=== PATIENT | male | born 1950 | race Caucasian/White ===

== ENCOUNTER → 2016-06-25 | Day surgery (SDC) | payer MEDICARE ==
[~2016-06-25] MED LIST: ACETAMINOPHEN 1000 MG/100 ML VIAL IV ONE; BUPIVACAINE LIPOSOME PF 1.3% 20 ML VIAL ONE; KETOROLAC TROMETHAMINE 30 MG/ML (IVP) VIAL IV PUSH ONE; LACTATED RINGER'S 1000 ML INJ 1,000 ML ONE; MIDAZOLAM HCL 2 MG/2 ML VIAL ONE; ONDANSETRON HCL 4 MG/2 ML VIAL IV PUSH ONE; PROPOFOL 200 MG/20 ML AMP IV ONE; ceFAZolin 2 GM PREMIX 50 ML ONE
--- NOTE | 2016-06-26 15:22 | MP ---
cc: JESUS WANG M.D. DATE OF SURGERY: 06/25/2016. PREOPERATIVE DIAGNOSIS: Left inguinal hernia. POSTOPERATIVE DIAGNOSIS: Left inguinal hernia. PROCEDURE: Repair of left inguinal hernia with ProGrip mesh. SURGEON: Jesus Wang MD. VISION REHABILITATION THERAPIST: Richard Adrian MS-3. ANESTHESIA: General. OPERATIVE FINDINGS: The patient was found to have a large direct inguinal hernia with no evidence of incarceration. There was no evidence of in direct inguinal hernia. DESCRIPTION OF THE PROCEDURE IN DETAIL: The patient was brought to the operating room and after satisfactory sedation was achieved, the left groin was prepped and draped in the usual sterile fashion. 1% lidocaine with epinephrine was used to infiltrate the skin for local anesthesia. A transverse left inguinal incision was made, carried out sharply through the subcutaneous tissue with the cautery being used for hemostasis. The incision was deepened to the external oblique fascia which was incised in the direction of its fibers down to and through the external ring. The underside of the fascia was cleaned and the spermatic cord isolated with a [place] drain. The direct hernia was seen to encompass much of the medial inguinal floor and it was dissected free from the surrounding structures and reduced within the properitoneal space. The internal oblique fascia was closed with interrupted 0 Vicryl sutures being brought between the internal oblique and the shelving edge of the inguinal ligament. Once the floor and the internal ring had been reconstructed in this fashion, the ProGrip mesh was cut to the appropriate shape and secured anterior to the repair by pressing its posterior Vicryl hooks into the surrounding tissues. After it was seen to be adequately attached, it was secured to the pubis with a single suture of #0 Prolene. A second interrupted #0 Prolene was used to secure the internal ring medially. Hemostasis was checked for and found to be satisfactory. The external oblique fascia was closed with a running 3-0 Vicryl suture. The subcutaneous tissue was closed with interrupted 3-0 Vicryl sutures. A total of 20 mL of Exparel was infiltrated in the surrounding tissues. The skin was then closed with interrupted 4-0 Monocryl subcuticular stitches. Steri-Strips were applied and the patient was then awakened and taken from the operating room, in satisfactory condition, having tolerated procedure without problem. MD TERRY Sue/CAMILLE /12:53 PM /3:07 PM
== END | disposition home or self-care (01) ==
LOC: ESDC 08:41
PROVIDERS: ATTEND Surgery
DX: K40.90 Unilateral inguinal hernia, without obstruction or gangrene, not specified as recurrent (principal)
CPT/HCPCS: 00830; 49505; C1781; C9290; J0131; J0690; J1885; J2250; J2405; J3010; J7120

== ENCOUNTER 2018-02-13 05:53 | Observation (INO) ==
[2018-02-13] MEDS ORDERED: Sod Chloride 0.9% Inj 1,000 ML IV.SIG SCH (06:45)
[2018-02-13] MEDS ORDERED: Vancomycin Inj 1,000 MG in Sodium Chlor 0.9% Inj 250 ML IV.SIG PRN (06:45)
[2018-02-13] MEDS ORDERED: Chlorhexidine Gluconate 2% 1 Pack (2 Cloths) TOPICAL ONE (06:47)
[2018-02-13] MEDS ORDERED: Metoprolol Tartrate 25 MG Tablet PO ONE (06:47)
[2018-02-13] MEDS ORDERED: Sodium Chlor 0.9% Inj 500 ML IV.SIG SCH (07:00)
[2018-02-13] MEDS ORDERED: Thrombin Topical 20,000 UNIT Spray Kit TOPICAL ONE (07:18)
[2018-02-13] MEDS ORDERED: Bupivacaine/Epinephrine PF Inj 0.5% 30 ML Vial ONE (07:18)
[2018-02-13] MEDS ORDERED: Gelatin Size 100 Topical Foam ONE (07:18)
[2018-02-13] MEDS ORDERED: Thrombin Topical Soln 5,000 UNIT Vial TOPICAL ONE (07:20)
[2018-02-13] MEDS ORDERED: Dexmedetomidine Inj 200 MCG/2 ML Vial ONE (07:48)
[2018-02-13] MEDS ORDERED: HYDROmorphone PF Inj 1 MG/ML Ampul ONE (07:48)
[2018-02-13] MEDS ORDERED: Glycopyrrolate Inj 1 MG/5 ML Syringe IV.PUSH ONE (08:44)
[2018-02-13] MEDS ORDERED: Phenylephrine/NS 1000 MCG/10ML Syringe IV.PUSH ONE (08:44)
[2018-02-13] MEDS ORDERED: Normosol-R pH 7.4 Inj 1,000 ML IV.CONT ONE (08:44)
[2018-02-13] MEDS ORDERED: Neostigmine Inj 5 MG/5 ML Syringe IV.PUSH ONE (08:44)
[2018-02-13] MEDS ORDERED: Dexamethasone Inj 20 MG/5 ML Vial ONE (09:17)
[2018-02-13] MEDS ORDERED: Acetaminophen 325 MG Tablet PO PRN (11:06)
[2018-02-13] MEDS ORDERED: Zolpidem Tartrate 5 MG Tablet PO PRN (11:06)
[2018-02-13] MEDS ORDERED: Menthol 5.8 MG Lozenge BUCCAL PRN (11:06)
[2018-02-13] MEDS ORDERED: Aluminum/Magnesium/Simethacone Susp 30 ML UDC PO PRN (11:06)
[2018-02-13] MEDS ORDERED: Morphine Sulfate Inj 2 MG/ML Vial IV.PUSH PRN (11:06)
[2018-02-13] MEDS ORDERED: Bisacodyl 10 MG Supp RECTAL PRN (11:06)
--- NOTE | 2018-02-13 11:06 | P.OP ---
- Preoperative Diagnosis (1) Neck pain, chronic (2) Other cervical disc degeneration at C5-C6 level (3) Protrusion of cervical intervertebral disc Date of procedure: 02/13/18 Procedure: Anterior cervical C5-6 microdiscectomy with interbody fusion; anterior C5-6 cervical plate placement; anterior C5-6 interbody cage placement; microsurgical technique Anesthesia: BALJINDER Surgeon: Vivek Viera MD Impress Associate: Ruma Hill Estimated blood loss (mL): 50 Operation and Findings: Following administration of general endotracheal anesthesia, the patient received a gram of vancomycin and Decadron 10 mg intravenously. Sequential compression devices were placed in supine position on a Oj table and all pressure points adequately padded. The head secured in a donut and anterior cervical region then shaved and prepped with Chloraprep and sterilely draped with Ioban along with the usual sterile draping. A transverse skin incision on the left side of the neck was then made after infiltrating the skin with 0.5% Marcaine with epinephrine solution extending down through the platysma. At the anterior border of the sternocleidomastoid further dissection was undertaken developing a plane between the carotid sheath laterally and the trachea esophagus medially. The prevertebral fascia was exposed and dissected out. The medial attachments of the longus colli muscles were detached and a self- retaining retractor used for exposure. The C5-6 disc space was localized with a marking the disc space and using lateral fluoroscopy. [place] distraction screws 14 mm length were placed one in the C5 and one in the C6 body interbody distraction and exposure. There was significant disc degeneration with disc height collapse and anterior osteophytes noted at the C5-6 level and the osteophytes were resected with a [place] and annulus incised with a 15 blade and further dissection undertaken using microtechnique with microscope magnification. Diskectomy was undertaken with pituitaries and the endplates were also decorticated with curettes and drill bit. And more posteriorly there was disk osteophyte complex compressing the thecal sac along with a significant uncovertebral joint hypertrophy with foraminal stenosis which was decompressed along with removal of the posterior longitudinal ligaments at both levels. The foramen was decompressed bilaterally using a Kerrison's and palpation with a nerve hook, the exiting nerve roots were felt to be free. The area was then copiously irrigated. I then placed a Peek cage packed with local autograft bone at the C5-6 interspace under fluoroscopy guidance. [place] distraction pins were removed and the holes plugged with Gelfoam for hemostasis. In order to facilitate the fusion and provide stabilization, a Precision spine cervical Uniplate was then placed with a 14 mm variable angle screw in the C5 body and 14 mm fixed angle screw in the C6 body. The plate screw locking mechanism was then engaged. AP and lateral fluoroscopy confirmed good placement of the construct and the retractor was then removed. Muscular bleeding points were cauterized with bipolar cautery and Gelfoam was then also used for hemostasis which was removed. The platysma was then approximated using 3-0 Vicryl interrupted stitches and 3-0 Vicryl subcuticular stitch also placed in an interrupted fashion, and final skin closure was with Mastisol and Steri-Strips. Sterile dressing was then applied. The patient was then extubated and taken to the recovery room. There are no intraoperative complications and all sponge and needle counts were correct at the end of procedure. Estimated blood loss was about 50 cc. The patient did undergo intraoperative neurologic monitoring which remained stable throughout the surgery.
--- NOTE | 2018-02-13 11:09 | XR ---
EXAM DATE: 02/13/2018 11:05 AM EST AGE/SEX: 67 years / Male INDICATIONS: Post-op C5-C6 anterior cervical fusion. CLINICAL DATA: This is the patient's initial encounter. Patient reports that signs and symptoms have been present for 1 day and indicates a pain score of Nonresponsive. MEDICAL/SURGICAL HISTORY: Non-responsive. Non-responsive. COMPARISON: [facility], MR CERVICAL SPINE W/O CONTRAST, 10/08/2017. . FINDINGS: 2 lateral images obtained in the operating room during a procedure demonstrates anterior plate and sc rews at C5-C6 with material in the C5-C6 disc space. No unexpected finding is identified. CONCLUSION: Images document hardware at C5-C6 related to ACDF. Electronically signed by: Miguel Feliz MD 02/13/2018 11:08 AM EST
[2018-02-13] MEDS ORDERED: ceFAZolin 1 GM Premix Inj 1 GM/50 ML PIGGYBACK IV.SIG ONE (11:16)
[2018-02-13] MEDS ORDERED: fentaNYL Citrate Inj 100 MCG/2 ML Ampul ONE (11:33)
[2018-02-13] MEDS ORDERED: *morphine SULFATE 4 MG/ML PERIprocedure ONLY ONE ×2 (11:39→12:25)
[2018-02-13] MEDS ORDERED: *Ondansetron Inj 4 MG/2 ML Vial PERIprocedural Use ONLY ONE (12:49)
[2018-02-13] MEDS ORDERED: *Promethazine Inj 25 MG/ML Vial PERIprocedural use ONLY ONE (14:04)
[2018-02-13] MEDS ORDERED: ceFAZolin 1 GM Premix Inj 1 GM/50 ML PIGGYBACK IV.SIG SCH (15:00)
[2018-02-13] MEDS ORDERED: Metoprolol Inj 5 MG/5 ML Vial ONE (17:39)
[2018-02-13] MEDS ORDERED: *Labetalol HCl Inj 100 MG/20 ML Vial PERIprocedural Use ONLY IV.PUSH ONE (18:22)
[2018-02-13] MEDS ORDERED: Metoprolol Inj 5 MG/5 ML Vial IV.PUSH ONE (18:30)
--- NOTE | 2018-02-13 19:06 | ECG ---
Date Performed: 02/13/2018 Time Performed: 17:59:37 PTAGE: 67 years EKG: SINUS TACHYCARDIA BORDERLINE LEFT AXIS DEVIATION NONSPECIFIC T-WAVE ABNORMALITY [facility]NORM[facility] ECG Compared to prior electrocardiogram, rate has increased . PREVIOUS TRACING : 02/13/2018 08.16 DOCTOR: Nelson Esteban Interpretating Date/Time 02/13/2018 19:04:10
--- NOTE | 2018-02-13 19:53 | ECG ---
Date Performed: 02/13/2018 Time Performed: 08:16:33 PTAGE: 67 years EKG: Sinus rhythm NORMAL ECG NO PREVIOUS TRACING DOCTOR: Hattie Mejía Interpretating Date/Time 02/13/2018 19:52:32
[2018-02-13] MEDS: ceFAZolin 1 GM Premix Inj 1 GM/50 ML PIGGYBACK IV.SIG SCH (20:23)
[2018-02-13] MEDS: Senna/Docusate Sodium 8.6/50 MG Tablet PO SCH (22:50)
[2018-02-14] MEDS: ceFAZolin 1 GM Premix Inj 1 GM/50 ML PIGGYBACK IV.SIG SCH (04:31)
[2018-02-14] MEDS ORDERED: Levothyroxine 125 MCG Tablet PO SCH (06:00)
[2018-02-14] MEDS: Senna/Docusate Sodium 8.6/50 MG Tablet PO SCH (08:22)
[2018-02-14 08:23] VITALS: BP 148/80; PULSE 89; RESP 18; TEMP 98; O2SAT 96
--- NOTE | 2018-02-14 10:00 | P.PNNS ---
Subjective Interval history: Pt awake and alert. He has voice hoarseness but improving. He is ambulating well. No radiculopathy in UEs. He is voiding this morning small amounts, after requiring straight cath twice. Physical Exam Vital signs: Vital Signs 02/13/18 10:58 02/13/18 11:00 02/13/18 11:15 Temperature 97.6 F Pulse Rate 99 H 95 H 89 Respiratory Rate 16 16 20 Blood Pressure 140/84 161/86 H 158/83 H Pulse Oximetry 93 L 93 L 97 02/13/18 11:30 02/13/18 11:45 02/13/18 12:00 Temperature Pulse Rate 88 88 92 H Respiratory Rate 20 20 20 Blood Pressure 170/90 H 143/86 H 158/92 H Pulse Oximetry 97 96 02/13/18 13:00 02/13/18 14:00 02/13/18 14:45 Temperature 97.4 F L Pulse Rate 93 H 104 H 108 H Respiratory Rate 22 20 20 Blood Pressure 158/89 H 160/81 H 156/83 H Pulse Oximetry 97 94 L 97 02/13/18 17:00 02/13/18 18:00 02/13/18 19:00 Temperature Pulse Rate 129 H 119 H 101 H Respiratory Rate 22 23 20 Blood Pressure 147/89 H 172/105 H 162/90 H Pulse Oximetry 97 97 98 02/13/18 20:00 02/13/18 21:26 02/14/18 00:00 Temperature 97.8 F 97.7 F Pulse Rate 101 H 101 H 96 H Respiratory Rate 20 20 20 Blood Pressure 172/95 H 156/78 H 154/79 H Pulse Oximetry 92 L 95 96 02/14/18 04:00 02/14/18 08:00 Temperature 97.6 F 98.0 F Pulse Rate 93 H 89 Respiratory Rate 20 18 Blood Pressure 158/76 H 148/80 H Pulse Oximetry 95 96 Intake & Output 02/13/18 02/14/18 02/14/18 18:59 06:59 18:59 Intake Total 2170 / 2170 1100 / 1100 Output Total 650 / 650 Balance 1520 / 1520 1100 / 1100 Weight 84.5 kg Intake: IV 250 / 250 600 / 600 NS + KCl 20 mEq Inj 1,000 ML @ 500 / 500 100 mls/hr IV.CONT .Q10H [facility] Rx #:[id number] Vancomycin Inj 1,000 MG In NS 250 / 250 Inj 250 ML @ 250 mls/hr 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 Absent: conjunctival icterus - Routine Neck Exam Present: trachea midline - Routine Respiratory Exam Present: CTA bilaterally. Absent: respiratory distress, rhonchi, wheezes - Routine Cardiovascular Exam Present: RRR, S1, S2. Absent: murmur - Routine Abdominal Exam Present: soft, normoactive bowel sounds. Absent: distended, firm - Routine Skin Exam Absent: cyanosis, erythema Comments: Incision clean and dry without signs of infection. - Routine Neurological Exam Present: alert, moving all extremities. Absent: sensory deficit, motor deficit , normal speech (voice hoarseness but appropriate.) - Routine Psychiatric Exam Present: normal affect, cooperative - Urinary Catheter Management Straight Cath placed during this visit: yes, but has since been removed by the nurse Reason for continuing: Not indwelling catheter Insertion date: 02/13/18 Insertion time: 14:05 Removal date: 02/13/18 Removal time: 14:12 Assessment and Plan - Assessment (1) Neck pain, chronic Code(s): M54.2 - Cervicalgia; G89.29 - Other chronic pain Status: Chronic (2) Other cervical disc degeneration at C5-C6 level Code(s): M50.322 - Other cervical disc degeneration at C5-C6 level Status: Chronic (3) Protrusion of cervical intervertebral disc Code(s): M50.20 - Other cervical disc displacement, unspecified cervical region Status: Chronic - Plan A: 67 y/o M s/p C5/C6 anterior cervical fusion. P: Discharge home when voiding more. Encouraged pt to drink more water. Follow up in office as scheduled.
== END 2018-02-14 11:39 | disposition home or self-care (01) ==
LOC: N05 05:53 → HSDC 05:53
PROVIDERS: ADMIT Neurological Surgery; ATTEND Neurological Surgery

== ENCOUNTER 2018-03-31 11:38 | Inpatient (IN) ==
[2018-03-31 12:57] LABS: Baso % (Auto) 0.2 % (0.0-2.0); Eos % (Auto) 0.1 % (0.0-4.0); Hematocrit 46.5 % (39.0-51.0); Hemoglobin 15.7 gm/dL (13.0-17.0); Lymph # (Auto) 0.5 th/mm3 (1.0-4.8); Lymph % (Auto) 4.2 % (9.0-44.0); Mean Corpuscular HGB Conc 33.7 % (32.0-36.0); Mean Corpuscular Hemoglobin 31.6 pg (27.0-34.0); Mean Corpuscular Volume 93.9 fL (80.0-100.0); Mono # (Auto) 1.4 th/mm3 (0.0-0.9); Mono % (Auto) 10.8 % (0.0-8.0); Neut # (Auto) 10.8 th/mm3 (1.8-7.7); Neut % (Auto) 84.7 % (16.0-70.0); Platelet Count 331 th/mm3 (150-450); Red Blood Count 4.96 mil/mm3 (4.50-5.90); Red Cell Distribution Width 13.7 % (11.6-17.2); White Blood Count 12.8 th/mm3 (4.0-11.0)
[2018-03-31 13:06] LABS: Activated Partial Thrombo Time 27.6 sec (23.4-31.7); Prothrombin Time 10.2 sec (9.8-11.6)
--- NOTE | 2018-03-31 13:06 | ED ---
HPI General Chief complaint: Neuro Symptoms/Deficit Stated complaint: Poss Seizure/Stroke Complaint Time Seen by Provider: 03/31/18 12:15 Source: patient and family Mode of arrival: ambulatory Limitations: no limitations History of Present Illness HPI narrative: Patient is a 67-year-old male who presents to the emergency room with his and his daughter for evaluation. Patient reports that on February 13, he had a microdiscectomy at C5-C6 by Dr. Viera. Patient reports that he was discharged in the next day. Patient reports that a few days after surgery he has not been feeling well. Patient reports that he has been feeling short of breath at rest as well as on exertion. Patient reports that he has been disoriented. Reports that he has had overall generalized weakness. Patient has been seen by his coil shaper, Dr. Escobedo, reports that he has had CTs of his head, chest/ abdomen/ pelvis - reports that no one can tell them why patient is decompensating. They were supposed to follow-up with a neurologist, reports that the earliest appointment he can get was on Tuesday with Dr. Encarnacion. Reports that since his symptoms have progressively gotten worse and his disorientation has progressed, his pcp Dr. Longoria told him to come to the ER for evaluation. of note: Patient did have carotid ultrasounds which were negative. Related Data Home Medications Medication Instructions Recorded Confirmed aspirin 81 mg PO DAILY 02/08/18 03/31/18 levothyroxine 125 mcg PO DAILY 02/08/18 03/31/18 pantoprazole [Protonix] 40 mg PO DAILY 02/08/18 03/31/18 pravastatin 40 mg PO HS 02/08/18 03/31/18 amlodipine [Norvasc] 10 mg PO DAILY 03/31/18 03/31/18 ranitidine HCl [Zantac] 150 mg PO DAILY 03/31/18 03/31/18 Allergies Allergy/AdvReac Type Severity Reaction Status Date / Time Sulfa (Sulfonamide Allergy Severe Nausea Verified 02/15/18 05:02 Antibiotics) Review of Systems ROS: all other systems reviewed are negative [facility] Medical History Medical History GERD (gastroesophageal reflux disease) (Acute) High cholesterol (Acute) Raspy voice (Acute) Thyroid disease (Acute) Surgical History Surgical History H/O inguinal hernia repair (Acute) H/O microdiscectomy (Acute) Status post bilateral LASIK surgery (Acute) Social History Social History Substance History: No History of Abuse Second Hand Smoke Exposure: No Smoking Status: Never smoker Tobacco Type: Cigarettes How Often Do You Have a Drink Containing Alcohol: Monthly or less Recent Travel in [facility] within the Last 8 Weeks: No Recent Out of Country Travel within the Last 8 Weeks: No Immunization History Tetanus Immunization: <5 Years Exam Narrative Exam Narrative: GENERAL: Mild distress SKIN: Focused skin assessment warm/dry. HEAD: Atraumatic. Normocephalic. EYES: Pupils equal and round. No scleral icterus. No injection or drainage. ENT: No nasal bleeding or discharge. Mucous membranes pink and moist. NECK: Trachea midline. No JVD. CARDIOVASCULAR: Regular rate and rhythm. No murmur appreciated. RESPIRATORY: No accessory muscle use. Clear to auscultation. Breath sounds equal bilaterally. GASTROINTESTINAL: Abdomen soft, non-tender, nondistended. Hepatic and splenic margins not palpable. MUSCULOSKELETAL: No obvious deformities. No clubbing. No cyanosis. No edema. NEUROLOGICAL: Awake and alert. No obvious cranial nerve deficits. Motor grossly within normal limits. Normal speech. PSYCHIATRIC: Appropriate mood and affect; insight and judgment normal. Procedures Intubation Time Out Performed: Yes Sedative: etomidate Mg Given: 20 Paralytic: succinylcholine Mg Given: 100 Laryngoscope: Cinda (4.0) ET Tube Size: 8 ET Tube Uncuffed: Yes Tube Secured Depth (cm): 26 Tube Secured Location: teeth Tube Placement Confirmation: visualized tube passing through cords, equal breath sounds bilaterally, no breath sounds over epigastrium and confirmation by capnometry Patient Tolerated Procedure: well Intubation Complications: none Course Initial Documented Vital Signs Temperature 97.4 F L 03/31/18 11:50 Pulse Rate 107 H 03/31/18 11:50 Respiratory Rate 16 03/31/18 11:50 Blood Pressure 148/82 H 03/31/18 11:50 Pulse Oximetry 90 L 03/31/18 11:50 Last Documented Vital Signs Temperature 97.6 F 03/31/18 14:58 Pulse Rate 106 H 03/31/18 14:58 Respiratory Rate 32 H 03/31/18 14:58 Blood Pressure 173/84 H 03/31/18 14:58 Pulse Oximetry 95 03/31/18 14:58 Critical Care Time Critical Care Time: Yes Total Critical Care Time: 60 Attestation: Aggregate critical care time was 60 minutes. Time to perform other separately billable procedures was not included in the critical care time. My time did not include minutes spent treating any other patients simultaneously or on activities that did not directly contribute to the patient's treatment. The services I provided to this patient were to treat and/or prevent clinically significant deterioration that could result in: , decompensation, deterioration I provided critical care services requiring my management, as noted below: Chart data review, documentation time, medication orders and management, vital sign assessments/reviewing monitor data, ordering and reviewing lab tests, ordering and interpreting/reviewing x-rays and diagnostic studies, care of the patient and discussion of the patient with the admitting physicians. Medical Decision Making MDM Narrative Medical decision making narrative: During the course of the patients emergency department visit, the patients history, examination, and differential diagnosis were reviewed with the patient. The patient was placed on a surveillance system monitor with oximetry and frequent blood pressure monitoring. The patient had an IV access obtained and blood work sent for analysis. Patient last had a CTA to R/O PE on 02/17 - it was negative. Patient is currently refusing a CT of his head at this time as he has had multiple which were all benign. Patient and family are requesting an MRI of the brain as well as an EEG. The patients laboratory studies were reviewed and remarkable for WBC 12.8, hemoglobin 15.7, hematocrit 46.5, platelets 331 Sodium 129, potassium 3.9, BUN 18, creatinine 0.76, glucose 119 X-ray of the chest shows hypoinflation with probable atelectatic changes about the left hemidiaphragm. CTA was ordered to rule out PE again as he has progressive dyspnea on exertion. Patient was admitted to the hospital this time for further workup of his progressive failure to thrive, progressive weakness and dyspnea. Case reviewed with Dr. Bruce who accepts patient to service. Patient began to become apneic, he was guppy breathing, he became unresponsive. Discussed with family need for intubation, family consents Case reviewed with Dr. Martin who accepts pt to service Medical Screen Exam Complete: Yes Emergency Medical Condition: Yes Medical Records Medical records reviewed: Yes I reviewed the patient's medical records. Lab Data Lab results reviewed: Yes I reviewed the patient's lab results. Result diagrams: 03/31/18 12:30 03/31/18 12:30 Lab Results 03/31/18 03/31/18 03/31/18 Range/Units 12:30 12:30 12:30 WBC 12.8 H (4.0-11.0) th/mm3 RBC 4.96 (4.50-5.90) mil/mm3 Hgb 15.7 (13.0-17.0) gm/dL Hct 46.5 (39.0-51.0) % MCV 93.9 (80.0-100.0) fL MCH 31.6 (27.0-34.0) pg MCHC 33.7 (32.0-36.0) % RDW 13.7 (11.6-17.2) % Plt Count 331 (150-450) th/mm3 MPV 7.0 (7.0-11.0) fL Neut % (Auto) 84.7 H (16.0-70.0) % Lymph % (Auto) 4.2 L (9.0-44.0) % [place] % (Auto) 10.8 H (0.0-8.0) % Eos % (Auto) 0.1 (0.0-4.0) % Baso % (Auto) 0.2 (0.0-2.0) % Neut # (Auto) 10.8 H (1.8-7.7) th/mm3 Lymph # (Auto) 0.5 L (1.0-4.8) th/mm3 [place] # (Auto) 1.4 H (0.0-0.9) th/mm3 Eos # (Auto) 0.0 (0.0-0.4) th/mm3 Baso # (Auto) 0.0 (0.0-0.2) th/mm3 WBC Differential . Differential Comment Auto diff final PT 10.2 (9.8-11.6) sec INR 1.0 Ratio APTT 27.6 (23.4-31.7) sec Puncture Site Patient Temperature O2 Saturation (90-100) % ABG pH (7.380-7.420) ABG pCO2 (38-42) mmHg ABG pO2 (61-120) mmHg ABG HCO3 (22-26) mmol/L ABG O2 Content (12.0-20.0) Vol % ABG Base Excess (-2-2) mmol/L ABG Methemoglobin (0-2) % David Test Hemoglobin (12.0-16.0) G/DL Carboxyhemoglobin (0-4) % O2 Delivery Device Inspired O2 % Critical Value Sodium 129 L (136-145) meq/L Potassium 3.9 (3.5-5.1) meq/L Chloride 89 L (98-107) meq/L Carbon Dioxide 37.2 H (21.0-32.0) meq/L Anion Gap 3 L (5-15) meq/L BUN 18 (7-18) mg/dL Creatinine 0.76 (0.60-1.30) mg/dL Estimated GFR Greater than 89 (>89) mL/min POC Glucose (68-110) mg/dl Random Glucose 138 H (74-106) mg/dL Calcium 9.0 (8.5-10.1) mg/dL Total Bilirubin 0.6 (0.2-1.0) mg/dL AST 33 (15-37) U/L ALT 72 (12-78) U/L Alkaline Phosphatase 72 (45-117) U/L Total Creatine Kinase Troponin I Total Protein 7.7 (6.4-8.2) g/dL Albumin 3.9 (3.4-5.0) g/dL Vitamin B12 Folate TSH Free T4 Urine Color (Yellw/Straw) Urine Clarity (Clear) Urine pH (5.0-8.5) Ur Specific [place] (1.002-1.035) Urine Protein (Neg-Trace) mg/dL Urine Glucose (UA) (Negative) mg/dL Urine Ketones (Negative) mg/dL Urine Occult Blood (Negative) Urine Nitrate (Negative) Urine Bilirubin (Negative) Urine Urobilinogen (Less than 2) mg/dL Ur Leukocyte Esterase (Negative) Urine RBC (0-3) /hpf Urine WBC (0-5) /hpf Hyaline Casts (0-3) /lpf Micro UA Comment Ur Microscopic Review Urine Culture Comments 03/31/18 03/31/18 03/31/18 Range/Units 12:30 12:30 12:54 WBC (4.0-11.0) th/mm3 RBC (4.50-5.90) mil/mm3 Hgb (13.0-17.0) gm/dL Hct (39.0-51.0) % MCV (80.0-100.0) fL MCH (27.0-34.0) pg MCHC (32.0-36.0) % RDW (11.6-17.2) % Plt Count (150-450) th/mm3 MPV (7.0-11.0) fL Neut % (Auto) (16.0-70.0) % Lymph % (Auto) (9.0-44.0) % [place] % (Auto) (0.0-8.0) % Eos % (Auto) (0.0-4.0) % Baso % (Auto) (0.0-2.0) % Neut # (Auto) (1.8-7.7) th/mm3 Lymph # (Auto) (1.0-4.8) th/mm3 [place] # (Auto) (0.0-0.9) th/mm3 Eos # (Auto) (0.0-0.4) th/mm3 Baso # (Auto) (0.0-0.2) th/mm3 WBC Differential Differential Comment PT (9.8-11.6) sec INR Ratio APTT (23.4-31.7) sec Puncture Site Patient Temperature O2 Saturation (90-100) % ABG pH (7.380-7.420) ABG pCO2 (38-42) mmHg ABG pO2 (61-120) mmHg ABG HCO3 (22-26) mmol/L ABG O2 Content (12.0-20.0) Vol % ABG Base Excess (-2-2) mmol/L ABG Methemoglobin (0-2) % David Test Hemoglobin (12.0-16.0) G/DL Carboxyhemoglobin (0-4) % O2 Delivery Device Inspired O2 % Critical Value Sodium (136-145) meq/L Potassium (3.5-5.1) meq/L Chloride (98-107) meq/L Carbon Dioxide (21.0-32.0) meq/L Anion Gap (5-15) meq/L BUN (7-18) mg/dL Creatinine (0.60-1.30) mg/dL Estimated GFR (>89) mL/min POC Glucose 119 H (68-110) mg/dl Random Glucose (74-106) mg/dL Calcium (8.5-10.1) mg/dL Total Bilirubin (0.2-1.0) mg/dL AST (15-37) U/L ALT (12-78) U/L Alkaline Phosphatase (45-117) U/L Total Creatine Kinase Cancelled Troponin I Cancelled Total Protein (6.4-8.2) g/dL Albumin (3.4-5.0) g/dL Vitamin B12 Cancelled Folate Cancelled TSH Cancelled Free T4 Cancelled Urine Color (Yellw/Straw) Urine Clarity (Clear) Urine pH (5.0-8.5) Ur Specific [place] (1.002-1.035) Urine Protein (Neg-Trace) mg/dL Urine Glucose (UA) (Negative) mg/dL Urine Ketones (Negative) mg/dL Urine Occult Blood (Negative) Urine Nitrate (Negative) Urine Bilirubin (Negative) Urine Urobilinogen (Less than 2) mg/dL Ur Leukocyte Esterase (Negative) Urine RBC (0-3) /hpf Urine WBC (0-5) /hpf Hyaline Casts (0-3) /lpf Micro UA Comment Ur Microscopic Review Urine Culture Comments 03/31/18 03/31/18 Range/Units 14:55 16:03 WBC (4.0-11.0) th/mm3 RBC (4.50-5.90) mil/mm3 Hgb (13.0-17.0) gm/dL Hct (39.0-51.0) % MCV (80.0-100.0) fL MCH (27.0-34.0) pg MCHC (32.0-36.0) % RDW (11.6-17.2) % Plt Count (150-450) th/mm3 MPV (7.0-11.0) fL Neut % (Auto) (16.0-70.0) % Lymph % (Auto) (9.0-44.0) % [place] % (Auto) (0.0-8.0) % Eos % (Auto) (0.0-4.0) % Baso % (Auto) (0.0-2.0) % Neut # (Auto) (1.8-7.7) th/mm3 Lymph # (Auto) (1.0-4.8) th/mm3 [place] # (Auto) (0.0-0.9) th/mm3 Eos # (Auto) (0.0-0.4) th/mm3 Baso # (Auto) (0.0-0.2) th/mm3 WBC Differential Differential Comment PT (9.8-11.6) sec INR Ratio APTT (23.4-31.7) sec Puncture Site Right radial Patient Temperature 98.6 O2 Saturation 98 (90-100) % ABG pH 7.08 L* (7.380-7.420) ABG pCO2 148 H* (38-42) mmHg ABG pO2 391 H (61-120) mmHg ABG HCO3 41 H (22-26) mmol/L ABG O2 Content 22.4 H (12.0-20.0) Vol % ABG Base Excess 11.2 H (-2-2) mmol/L ABG Methemoglobin 0.9 (0-2) % David Test Y Hemoglobin 15.6 (12.0-16.0) G/DL Carboxyhemoglobin 0.5 (0-4) % O2 Delivery Device Nrb Inspired O2 100 % Critical Value Yes Sodium (136-145) meq/L Potassium (3.5-5.1) meq/L Chloride (98-107) meq/L Carbon Dioxide (21.0-32.0) meq/L Anion Gap (5-15) meq/L BUN (7-18) mg/dL Creatinine (0.60-1.30) mg/dL Estimated GFR (>89) mL/min POC Glucose (68-110) mg/dl Random Glucose (74-106) mg/dL Calcium (8.5-10.1) mg/dL Total Bilirubin (0.2-1.0) mg/dL AST (15-37) U/L ALT (12-78) U/L Alkaline Phosphatase (45-117) U/L Total Creatine Kinase Troponin I Total Protein (6.4-8.2) g/dL Albumin (3.4-5.0) g/dL Vitamin B12 Folate TSH Free T4 Urine Color Yellow (Yellw/Straw) Urine Clarity Clear (Clear) Urine pH 6.0 (5.0-8.5) Ur Specific [place] 1.013 (1.002-1.035) Urine Protein 30 H (Neg-Trace) mg/dL Urine Glucose (UA) Negative (Negative) mg/dL Urine Ketones Negative (Negative) mg/dL Urine Occult Blood Moderate H (Negative) Urine Nitrate Negative (Negative) Urine Bilirubin Negative (Negative) Urine Urobilinogen Less than 2 (Less than 2) mg/dL Ur Leukocyte Esterase Negative (Negative) Urine RBC 27 H (0-3) /hpf Urine WBC 1 (0-5) /hpf Hyaline Casts 8 (0-3) /lpf Micro UA Comment Culture not ind Ur Microscopic Review Not Reportable Urine Culture Comments Culture not ind Imaging Data Attestation: I personally reviewed and interpreted this imaging study as follows : Radiologist's impression: Chest X-Ray 03/31/18 12:15 CONCLUSION: 1. Hypoinflation with probable atelectatic changes above the left hemidiaphragm. 2. Otherwise, no acute cardiopulmonary process. Head CT 03/31/18 12:16 CONCLUSION: 1. Negative CT Head non contrast. . Chest CTA 03/31/18 14:39 CONCLUSION: 1. Bibasilar atelectatic changes, left greater than right. No confluent infiltrate. 2. No pulmonary embolus. 3. Atherosclerotic calcification of the coronary arteries. ECG Data EKG Prior to Arrival: No Attestation: I personally reviewed and interpreted this ECG as follows: Interpretation: ekg at 1241: NSR at 96bpm, qt/qtc: 314/368, no acute st or t wave changes Discharge Plan Discharge Disposition Patient Disposition: ED Admit(ED Internal Use Only) Discharge Condition Condition: Stable Discharge Order Discharge Orders: ED Use Only Admit Order (Routine); Ordered 03/31/18 Ordered By: Ale Shen Discharge Details Diagnosis: Adult failure to thrive, Shortness of breath, Weakness generalized, Acute hyponatremia, Ventilator dependent Physicians Team ED Provider: Ale Shen Primary Care Provider: Rex Longoria Attending Provider: Chon Patel Other Providers: Lev Torres Interventions Interventions: Vital Signs Last Done: 03/31/18 14:04 Status ED Status: Admitted Patient
[2018-03-31 13:14] LABS: Alanine Aminotransferase 72 U/L (12-78); Albumin 3.9 g/dL (3.4-5.0); Anion Gap 3 meq/L (5-15); Aspartate Aminotransferase 33 U/L (15-37); Blood Urea Nitrogen 18 mg/dL (7-18); Carbon Dioxide 37.2 meq/L (21.0-32.0); Chloride 89 meq/L (98-107); Glomerular Filtration Rate Greater Than 89 mL/min (>89); Glucose,Random 138 mg/dL (74-106); Potassium 3.9 meq/L (3.5-5.1); Sodium 129 meq/L (136-145)
--- NOTE | 2018-03-31 13:14 | XR ---
EXAM DATE: 03/31/2018 12:53 PM EST AGE/SEX: 67 years / Male INDICATIONS: Chest pain. Short of breath since spinal surgery on 02/13/19. Numbness and tingling in s houlders today. CLINICAL DATA: This is the patient's initial encounter. Patient reports that signs and symptoms have been present for 1 month and indicates a pain score of Nonresponsive. MEDICAL/SURGICAL HISTORY: Non-responsive. . cervical spine fusion [place] [facility] [place]. . FINDINGS: A single AP view of the chest demonstrates the lungs to be symmetrically hypoinflated with probable a telectatic changes above the left hemidiaphragm. Lungs are otherwise clear. Accounting for the low la nena ng findings, heart size is normal. Osseous structures are intact with some degenerative osteoarthriti c changes in the AC joints bilaterally. CONCLUSION: 1. Hypoinflation with probable atelectatic changes above the left hemidiaphragm. 2. Otherwise, no acute cardiopulmonary process. Electronically signed by: Serafin Maurer MD Board Certified Radiologist 03/31/2018 1:12 PM EST
[2018-03-31 13:15] LABS: Alkaline Phosphatase 72 U/L (45-117); Total Protein 7.7 g/dL (6.4-8.2)
--- NOTE | 2018-03-31 15:21 | P.HPIM ---
History of Present Illness Primary Care Physician: Rex Longoria MD History of Present Illness: DRAFT NOTE Inpatient Certification Inpatient Certification: I certify that the inpatient services were ordered in accordance with Medicare regulations governing the order. This includes certification that hospital inpatient services are reasonable and necessary and in the case of services not specified as inpatient-only under 42 CFR 419.22(n), that they are appropriately provided as inpatient services in accordance to with the 2-midnight benchmark under 43 CFR 412.3(e) Estimated Total Length of Stay (Days): 3 Plans for Post Hospital Care: Not yet determined Medications and Allergies Allergies Allergy/AdvReac Type Severity Reaction Status Date / Time Sulfa (Sulfonamide Allergy Severe Nausea Verified 02/15/18 05:02 Antibiotics) Home Medications Medication Instructions Recorded Confirmed Type aspirin 81 mg PO DAILY 02/08/18 02/15/18 History coQ10 (ubiquinol) 100 mg PO DAILY 02/08/18 02/15/18 History levothyroxine 125 mcg PO DAILY 02/08/18 02/15/18 History sd-nu-JK-vit B-nkoso-syl-coQ10 1 tab PO DAILY 02/08/18 02/15/18 History [Daily Multivitamin] pantoprazole [Protonix] 40 mg PO DAILY 02/08/18 02/15/18 History pravastatin 40 mg PO HS 02/08/18 02/15/18 History Active Medications: Active Medications Acetaminophen (Tylenol) 650 mg PO Q4H PRN PRN Reason: Temp > 100.4 Al Hydroxide/Mg Hydroxide (Milk Of Kinjal Liq) 30 ml PO Q12H PRN PRN Reason: Mild Constipation Enoxaparin Sodium (Lovenox Inj) 30 mg SQ Q24H GIGI Potassium Chloride/Sodium Chloride (Potassium Chlor 20 Meq/Nacl 0.45% Inj) 1, 000 mls @ 84 mls/hr IV.CONT .[id number] GIGI Ondansetron HCl (Zofran Inj) 4 mg IV.PUSH Q6H PRN PRN Reason: NAUSEA OR VOMITING Senna/Docusate Sodium (Celine-Colace) 1 tab PO BID GIGI Sodium Chloride (Ns Flush) 2 ml IV.FLUSH PRN PRN PRN Reason: FLUSH AFTER USING IV ACCESS Sodium Chloride (Ns Flush) 2 ml IV.FLUSH PRN PRN PRN Reason: FLUSH AFTER USING IV ACCESS Sodium Chloride (Ns Flush) 2 ml IV.FLUSH BID GIGI Physical Exam Vital signs: Last Vital Signs Temp 97.6 F 03/31/18 14:58 Pulse 106 H 03/31/18 14:58 Resp 32 H 03/31/18 14:58 BP 173/84 H 03/31/18 14:58 Pulse Ox 95 03/31/18 14:58 Results Labs CBC & Chem 7: 03/31/18 12:30 03/31/18 12:30 Caprini VTE Risk Assessment Caprini Risk Assessment Model: Point Value = 1 Point Value = 2 Point Value = 3 Point Value = 5 Age 41-60 Minor surgery BMI > 25 kg/m2 Swollen legs Varicose veins or History of unexplained or recurrent spontaneous Oral contraceptives or hormone replacement Sepsis (< 1 month) Serious lung disease, including pneumonia (< 1 month) Abnormal pulmonary function Acute myocardial infarction Congestive heart failure (< 1 month) History of inflammatory bowel disease Medical patient at bed rest Age 61-74 Arthroscopic surgery Major open surgery (> 45 min) Laparoscopic surgery (> 45 min) Malignancy Confined to bed (> 72 hours) Immobilizing plaster cast Central venous access Age >= 75 History of VTE Family history of VTE Factor V Leiden Prothrombin [id number] Lupus anticoagulant Anticardiolipin antibodies Elevated serum homocysteine Heparin-induced thrombocytopenia Other congenital or acquired thrombophilia Stroke (< 1 month) Elective arthroplasty Hip, pelvis, or leg fracture Acute spinal cord injury (< 1 month) Prophylaxis Regimen: Total Risk Factor Score Risk Level Prophylaxis Regimen 0-1 Low Early ambulation 2 Moderate Order ONE of the following: *Sequential Compression Device (SCD) *Heparin 5000 units SQ BID 3-4 Higher Order ONE of the following medications: *Heparin 5000 units SQ TID *Enoxaparin/Lovenox 40 mg SQ daily (WT < 150 kg, CrCl > 30 mL/min) *Enoxaparin/Lovenox 30 mg SQ daily (WT < 150 kg, CrCl > 10-29 mL/min) *Enoxaparin/Lovenox 30 mg SQ BID (WT < 150 kg, CrCl > 30 mL/min) AND/OR *Sequential Compression Device (SCD) 5 or more Highest Order ONE of the following medications: *Heparin 5000 units SQ TID (Preferred with Epidurals) *Enoxaparin/Lovenox 40 mg SQ daily (WT < 150 kg, CrCl > 30 mL/min) *Enoxaparin/Lovenox 30 mg SQ daily (WT < 150 kg, CrCl > 10-29 mL/min) *Enoxaparin/Lovenox 30 mg SQ BID (WT < 150 kg, CrCl > 30 mL/min) AND *Sequential Compression Device (SCD)
--- NOTE | 2018-03-31 15:36 | CT ---
EXAM DATE: 03/31/2018 3:33 PM EST AGE/SEX: 67 years / Male INDICATIONS: Weakness. CLINICAL DATA: This is the patient's initial encounter. Patient reports that signs and symptoms have been present for 1 day and indicates a pain score of Nonresponsive. MEDICAL/SURGICAL HISTORY: Gastroesophageal reflux disease. Thyroid disease. Left inguinal hernia. . Bilateral lasik surgery. RADIATION DOSE: 66.34 CTDI (mGy) ; Patient motion COMPARISON: [facility], CT BRAIN W AND W/O CONTRAST, 03/29/2018. . TECHNIQUE: CT of the head without contrast. Using automated exposure control and adjustment of the mA and/or kV according to patient size, radiation dose was kept as low as reasonably achievable to ob tain optimal diagnostic quality images. DICOM format image data is available electronically for revi ew and comparison. FINDINGS: Cerebrum: The ventricles are normal for age. No evidence of midline shift, mass lesion, hemorrhage or acute infarction. No extraaxial fluid collections are seen. Posterior Fossa: The cerebellum and brainstem are intact. The 4th ventricle is midline. The cerebe llopontine angle is unremarkable. Extracranial: The visualized portion of the orbits is intact. Skull: The calvaria is intact. No evidence of skull fracture. CONCLUSION: 1. Negative CT Head non contrast. . Electronically signed by: Gucci Benson MD Board Certified Radiologist 03/31/2018 3:34 PM EST
[2018-03-31 15:43] LABS: Bilirubin,Urine Negative (Negative); Clarity,Urine Clear (Clear); Color,Urine Yellow (Yellw/Straw); Glucose,Urine (UA) Negative (Negative); Hyaline Casts,Urine 8 /lpf (0-3); Leukocyte Esterase,Urine Negative (Negative); Nitrite,Urine Negative (Negative); Specific Gravity,Urine 1.013 (1.002-1.035)
[2018-03-31] MEDS ORDERED: Etomidate Inj 40 MG/20 ML Vial IV.PUSH ONE ×2 (15:44→16:41)
--- NOTE | 2018-03-31 15:45 | CT ---
EXAM DATE: 03/31/2018 3:39 PM EST AGE/SEX: 67 years / Male INDICATIONS: Short of breath CLINICAL DATA: This is the patient's initial encounter. Patient reports that signs and symptoms have been present for 1 day and indicates a pain score of Nonresponsive. MEDICAL/SURGICAL HISTORY: Gastroesophageal reflux disease. Thyroid Disease, Left inguinal hernia . LASIK eye surgery RADIATION DOSE: 10.98 CTDI (mGy) COMPARISON: [facility], CTA PULMONARY ANGIOGRAM, 02/27/2018. . TECHNIQUE: Volumetric scanning was performed using a multi-row detector CT scanner during bolus infu jon of 74 ml Omnipaque 350 (iohexol) nonionic water-soluble contrast as a single exam dose. The [place] a was post processed with a variety of visualization algorithms including full volume maximum intensi ty projection and sliding thin slab reformation. Using automated exposure control and adjustment of the mA and/or kV according to patient size, radiation dose was kept as low as reasonably achievable t o obtain optimal diagnostic quality images. DICOM format image data is available electronically for review and comparison. FINDINGS: Pulmonary Arteries: No filling defects are seen in the pulmonary arteries out to the subsegmental ve ssels. The left and right pulmonary arteries are normal in diameter. Lung: Subsegmental linear atelectasis identified in the perifissural distribution of the right lower lobe. Atelectatic changes are also seen above the left hemidiaphragm. Lungs are otherwise clear Effusion: None. Mediastinum: No evidence of mediastinal or hilar adenopathy. Atherosclerotic calcification of the co ronary arteries. Other: The axilla is unremarkable. CONCLUSION: 1. Bibasilar atelectatic changes, left greater than right. No confluent infiltrate. 2. No pulmonary embolus. 3. Atherosclerotic calcification of the coronary arteries. Electronically signed by: Serafin Maurer MD Board Certified Radiologist 03/31/2018 3:44 PM EST
[2018-03-31] MEDS ORDERED: Propofol 1000 mg/100 ml Inj 1,000 MG/100 ML BOTTLE ONE (16:04)
[2018-03-31 16:09] LABS: ABG Base Excess 11.2 mmol/L (-2-2); ABG PO2 391 mmHg (61-120)
[2018-03-31 16:10] LABS: ABG PCO2 148 mmHg (38-42)
[2018-03-31] MEDS: Sod Chloride 0.9% Inj 1,000 ML IV.SIG SCH ×4 (16:15→23:00)
[2018-03-31 16:29] LABS: Creatine Kinase 101 U/L (39-308); Free T4 (Free Thyroxine) 1.12 ng/dL (0.76-1.46); Thyroid Stimulating Hormone 0.754 uIU/mL (0.358-3.740); Vitamin B12 578 pg/mL (193-986)
--- NOTE | 2018-03-31 16:41 | XR ---
EXAM DATE: 03/31/2018 4:26 PM EST AGE/SEX: 67 years / Male INDICATIONS: Post intubation. CLINICAL DATA: This is the patient's initial encounter. Patient reports that signs and symptoms have been present for 1 day and indicates a pain score of Nonresponsive. MEDICAL/SURGICAL HISTORY: Gastroesophageal reflux disease. thyroid disease, left inguinal herni a . none known COMPARISON: C, CHEST 1V SINGLE AP, 03/31/2018. . FINDINGS: No change from prior. Lungs remain hypoinflated with persistent atelectatic changes above the left he midiaphragm. No acute infiltrate. Endotracheal tube is identified with the tip at the clavicular head s, well above the duane. CONCLUSION: 1. Hypoinflation with persistent left basilar atelectasis. 2. Endotracheal tube tip at the clavicular heads, above the duane. Electronically signed by: Serfain Maurer MD Board Certified Radiologist 03/31/2018 4:39 PM EST
[2018-03-31] MEDS ORDERED: Succinylcholine Inj 200 MG/10 ML Vial ONE (16:44)
[2018-03-31 16:45] LABS: Creatine Kinase MB 9.7 ng/mL (0.5-3.6)
[2018-03-31] MEDS ORDERED: Succinylcholine Inj 200 MG/10 ML Vial IV.PUSH ONE (17:26)
[2018-03-31] MEDS ORDERED: Gadobutrol PF 10 MMOL/10 ML Vial (for RAD) IV.SIG ONE (17:26)
[2018-03-31] MEDS ORDERED: Etomidate Inj 20 MG/10 ML Ampul IV.PUSH ONE (17:26)
--- NOTE | 2018-03-31 18:14 | MR ---
EXAM DATE: 03/31/2018 6:10 PM EST AGE/SEX: 67 years / Male INDICATIONS: Altered mental status. CLINICAL DATA: This is the patient's initial encounter. Patient reports that signs and symptoms have been present for 1 day and indicates a pain score of 0/10. MEDICAL/SURGICAL HISTORY: Hypercholesterolemia. Fusion, cervical. COMPARISON: [facility] [place], CT HEAD W/O CONTRAST, 03/31/2018. . TECHNIQUE: Multiplanar, multisequence examination of the brain was performed without and with 8 ml Ga davist (gadobutrol) contrast as a single exam dose. FINDINGS: Cerebrum: The ventricles are normal for age. No evidence of midline shift, mass lesion, hemorrhage or acute infarction. No extraaxial fluid collections are seen. The pituitary gland and suprasellar cistern are normal in configuration. White Matter: No significant signal abnormalities are seen in the white matter. Posterior Fossa: The cerebellum and brainstem are intact. The 4th ventricle is midline. The cerebel lopontine angle is unremarkable. The cerebellar tonsils are normal in position. Diffusion Imaging: No focal areas of restricted diffusion are seen. No evidence of acute infarction . Extracranial: The visualized portions of the orbits and paranasal sinuses are unremarkable. Post Contrast: No abnormal areas of parenchymal or dural enhancement. No evidence of blood-brain ba rrier breakdown. CONCLUSION: Negative exam Electronically signed by: Serafin Maurer MD Board Certified Radiologist 03/31/2018 6:12 PM EST
--- NOTE | 2018-03-31 18:22 | MR ---
EXAM DATE: 03/31/2018 6:10 PM EST AGE/SEX: 67 years / Male INDICATIONS: . Neck pain. CLINICAL DATA: This is the patient's initial encounter. Patient reports that signs and symptoms have been present for 3 weeks and indicates a pain score of 4/10. MEDICAL/SURGICAL HISTORY: Hypercholesterolemia. Discectomy, cervical. COMPARISON: [facility], MR CERVICAL SPINE W/O CONTRAST, 10/08/2017. . TECHNIQUE: Multiplanar, multisequence MRI examination of the cervical spine was performed without an d with 8 ml Gadavist (gadobutrol) contrast as a single exam dose. FINDINGS: There is some patient motion blurring seen throughout the study. Vertebrae: There appears to be anterior cervical fusion plate at the C5-C6 level. The cervical verte bral bodies are normal in height and normally aligned. Alignment: Normal. Cord: Normal configuration and signal. Post Fossa: The cerebellar tonsils are normal in position. Post Contrast: No abnormal areas of enhancement are seen. The patient appears intubated. There is fluid seen in the hypopharynx and larynx and superior aspect of the trachea above the cuff. There is some soft tissue swelling in prevertebral region. This is bes t seen on the sagittal images. It is less apparent on the axial images. C2-C3: The thecal sac has a normal configuration. There is no evidence of disc herniation or spinal canal stenosis. The neural foramina are patent bilaterally. There is facet hypertrophy. C3-C4: The thecal sac has a normal configuration. There is no evidence of disc herniation or spinal canal stenosis. There is facet hypertrophy. There is some narrowing of the right neural foramina. T he left neural foramina is patent. C4-C5: The thecal sac has a normal configuration. There is no evidence of disc herniation or spinal canal stenosis. There is facet hypertrophy. There is some narrowing of the right neural foramina. T he left neural foramina is patent. C5-C6: The patient is a status post fusion at this level. A significant impression on the thecal sac is not seen. The neural foramina appear patent. There is facet hypertrophy. C6-C7: The thecal sac has a normal configuration. There is no evidence of disc herniation or spinal canal stenosis. The neural foramina are patent bilaterally. There is facet hypertrophy. C7-T1: No epidural impressions seen. CONCLUSION: 1. Status post fusion at the C5-C6 level. There is susceptibility artifact from the hardware. 2. A significant area of stenosis in the thecal sac is not seen. 3. Facet hypertrophy seen throughout with scattered areas of neural foraminal narrowing as described above. 4. The patient is intubated with fluid in the hypopharynx, laryngeal pharynx, and upper trachea arou nd the ET tube and above the tracheal ET tube cuff. 5. The does appear to be some mild soft tissue swelling in the prevertebral region best seen on the sagittal images. Electronically signed by: Miguel Crenshaw MD Board Certified Radiologist 03/31/2018 6:21 PM EST
[2018-03-31 18:41] LABS: ABG Base Excess 6.4 mmol/L (-2-2); ABG PCO2 52 mmHg (38-42); ABG PO2 56 mmHg (61-120)
--- NOTE | 2018-03-31 19:05 | P.HPCC ---
History of Present Illness Primary Care Physician: Rex Longoria MD History of Present Illness: This 67-year-old came into the emergency room today with his and daughter. On 02/13/2018, he had a microdiscectomy, C5-C6, by Dr. Schwarz. He was discharged home the next day. A few days after, he had not been feeling well, short of breath, disoriented, generally weak, symptoms were getting worse, disorientation was worse. He was referred to emergency department by his primary care physician for an evaluation. In the ED he was found to be in severe hypercarbic respiratory acidosis and was intubated by ED attending. Inpatient Certification: I certify that the inpatient services were ordered in accordance with Medicare regulations governing the order. This includes certification that hospital inpatient services are reasonable and necessary and in the case of services not specified as inpatient-only under 42 CFR 419.22(n), that they are appropriately provided as inpatient services in accordance to with the 2-midnight benchmark under 43 CFR 412.3(e) Estimated Total Length of Stay (Days): 3 Plans for Post Hospital Care: Not yet determined Review of Systems unobtainable due to endotracheal tube PMFSH - History History Provided By: Family Member - Medical History Medical History: Medical History (Last Reviewed 03/31/18 @ 13:05 by Ale Shen) GERD (gastroesophageal reflux disease) High cholesterol Raspy voice Thyroid disease - Surgical History Surgical History: Surgical History (Last Reviewed 03/31/18 @ 13:05 by Ale Shen) H/O microdiscectomy H/O inguinal hernia repair Status post bilateral LASIK surgery - Tobacco History Second Hand Smoke Exposure: No Tobacco Use In Past 30 Days: No Smoking Status: Never smoker Tobacco Type: Cigarettes - Alcohol History How Often Do You Have a Drink Containing Alcohol: Monthly or less - Substance Use History Substance History: No History of Abuse - Travel History Recent Travel in the [place] Within the Last 8 Weeks: No Recent Travel Out of the Country Within the Last 8 Weeks: No - Immunization History Tetanus Immunization: <5 Years Medications and Allergies Active Medications: Active Medications Acetaminophen (Tylenol) 650 mg PO Q4H PRN PRN Reason: Temp > 100.4 Al Hydroxide/Mg Hydroxide (Milk Of Magnesia Liq) 30 ml PO Q12H PRN PRN Reason: Mild Constipation Albuterol (Duoneb Neb (Prn)) 1 ampul NEB Q4HR NEB PRN PRN Reason: SHORTNESS OF BREATH Albuterol (Duoneb Neb (Je)) 1 ampul NEB Q6HR NEB [facility] Last Admin: 03/31/18 18:34 Dose: 1 ampul Chlorhexidine Gluconate (Peridex 0.12% Oral Kit) 15 ml OROPHARYNG BID@0800, 2000 JE Chlorhexidine Gluconate (Chlorhexidine 2% Cloth) 3 pack TOPICAL DAILY@0400 JE Stop: 04/06/18 03:59 Chlorhexidine Gluconate (Chlorhexidine 2% Cloth) 3 pack TOPICAL DAILY@0400 PRN PRN Reason: Extra cloth needed Stop: 04/06/18 03:59 Enoxaparin Sodium (Lovenox Inj) 30 mg SQ Q24H JE Famotidine (Pepcid) 20 mg PO BID JE Famotidine (Pepcid Pf Inj) 20 mg IV.PUSH Q12HR JE Potassium Chloride/Sodium Chloride (Potassium Chlor 20 Meq/Nacl 0.45% Inj) 1, 000 mls @ 84 mls/hr IV.CONT .[id number] JE Sodium Chloride (Ns Inj) 1,000 mls @ 75 mls/hr IV.CONT .[id number] [facility] Miscellaneous Medication () 1 each OROPHARYNG 0000,0400,1200,1600 JE Ondansetron HCl (Zofran Inj) 4 mg IV.PUSH Q6H PRN PRN Reason: NAUSEA OR VOMITING Senna/Docusate Sodium (Celine-Colace) 1 tab PO BID [facility] Sodium Chloride (Ns Flush) 2 ml IV.FLUSH BID [facility] Sodium Chloride (Ns Flush) 2 ml IV.FLUSH PRN PRN PRN Reason: FLUSH AFTER USING IV ACCESS Allergies Allergy/AdvReac Type Severity Reaction Status Date / Time Sulfa (Sulfonamide Allergy Severe Nausea Verified 02/15/18 05:02 Antibiotics) Home Medications Medication Instructions Recorded Confirmed Type aspirin 81 mg PO DAILY 02/08/18 03/31/18 History levothyroxine 125 mcg PO DAILY 02/08/18 03/31/18 History pantoprazole [Protonix] 40 mg PO DAILY 02/08/18 03/31/18 History pravastatin 40 mg PO HS 02/08/18 03/31/18 History amlodipine [Norvasc] 10 mg PO DAILY 03/31/18 03/31/18 History ranitidine HCl [Zantac] 150 mg PO DAILY 03/31/18 03/31/18 History Results - Labs CBC & Chem 7: 04/01/18 03:53 04/01/18 03:53 Labs: Short CBC 03/31/18 Range/Units 12:30 WBC 12.8 H (4.0-11.0) th/mm3 Hgb 15.7 (13.0-17.0) gm/dL Hct 46.5 (39.0-51.0) % Plt Count 331 (150-450) th/mm3 BMP 03/31/18 12:30 Sodium 129 L Potassium 3.9 Chloride 89 L Carbon Dioxide 37.2 H BUN 18 Creatinine 0.76 Calcium 9.0 Cardiac Enzymes 03/31/18 03/31/18 Range/Units 12:30 12:30 Total Creatine Kinase 101 Cancelled (39-308) U/L CK-MB (CK-2) 9.7 H (0.5-3.6) ng/mL Troponin I Less than 0.02 L Cancelled (0.02-0.05) ng/mL Liver Function 03/31/18 Range/Units 12:30 Total Bilirubin 0.6 (0.2-1.0) mg/dL AST 33 (15-37) U/L ALT 72 (12-78) U/L Alkaline Phosphatase 72 (45-117) U/L Albumin 3.9 (3.4-5.0) g/dL Urine 03/31/18 Range/Units 14:55 Urine Color Yellow (Yellw/Straw) Urine Clarity Clear (Clear) Urine pH 6.0 (5.0-8.5) Ur Specific [place] 1.013 (1.002-1.035) Urine Protein 30 H (Neg-Trace) mg/dL Urine Glucose (UA) Negative (Negative) mg/dL - Imaging Impressions Head MRI 03/31/18 00:00 CONCLUSION: Negative exam Chest X-Ray 03/31/18 12:15 CONCLUSION: 1. Hypoinflation with probable atelectatic changes above the left hemidiaphragm. 2. Otherwise, no acute cardiopulmonary process. Head CT 03/31/18 12:16 CONCLUSION: 1. Negative CT Head non contrast. . Chest CTA 03/31/18 14:39 CONCLUSION: 1. Bibasilar atelectatic changes, left greater than right. No confluent infiltrate. 2. No pulmonary embolus. 3. Atherosclerotic calcification of the coronary arteries. Chest X-Ray 03/31/18 16:11 CONCLUSION: 1. Hypoinflation with persistent left basilar atelectasis. 2. Endotracheal tube tip at the clavicular heads, above the duane. Cervical Spine MRI 03/31/18 16:17 CONCLUSION: 1. Status post fusion at the C5-C6 level. There is susceptibility artifact from the hardware. 2. A significant area of stenosis in the thecal sac is not seen. 3. Facet hypertrophy seen throughout with scattered areas of neural foraminal narrowing as described above. 4. The patient is intubated with fluid in the hypopharynx, laryngeal pharynx, and upper trachea around the ET tube and above the tracheal ET tube cuff. 5. The does appear to be some mild soft tissue swelling in the prevertebral region best seen on the sagittal images. Exam Vital signs: Vital Signs 03/31/18 11:50 03/31/18 12:33 03/31/18 14:04 Temperature 97.4 F L Pulse Rate 107 H 101 H Respiratory Rate 16 26 H Blood Pressure 148/82 H 185/88 H Pulse Oximetry 90 L 93 L 95 03/31/18 14:58 03/31/18 16:04 03/31/18 16:36 Temperature 97.6 F Pulse Rate 106 H 101 H Respiratory Rate 32 H 16 Blood Pressure 173/84 H 101/53 L 100/56 L Pulse Oximetry 95 100 03/31/18 16:38 03/31/18 16:48 03/31/18 17:22 Temperature Pulse Rate 104 H 97 H 102 H Respiratory Rate 16 16 16 Blood Pressure 96/53 L 109/63 109/64 Pulse Oximetry 100 100 100 03/31/18 17:33 03/31/18 17:36 03/31/18 17:52 Temperature Pulse Rate 110 H 108 H 100 H Respiratory Rate 16 16 16 Blood Pressure 103/56 L 91/58 L 107/71 Pulse Oximetry 100 100 03/31/18 18:21 03/31/18 18:37 03/31/18 18:53 Temperature Pulse Rate 95 H Respiratory Rate 20 20 Blood Pressure Pulse Oximetry 98 100 Intake & Output 01/03/31/18 04/01/18 06:59 18:59 06:59 Intake Total 1999 Balance 1999 Weight 78.925 kg Intake: IV 1999 NS Inj 1,000 ML @ 2000 mls/hr 1999 IV.SIG Q30M [facility] Rx#:[id number] - Constitutional chronically ill appearing - Routine HEENT Exam Head: Present: normocephalic, atraumatic ENT: Present: mucous membranes moist - Routine Neck Exam Absent: JVD, carotid bruit - Routine Respiratory Exam Present: patient mechanically ventilated. Absent: rhonchi, stridor, wheezes - Routine Cardiovascular Exam Present: RRR, S1, S2 - Routine Abdominal Exam Present: soft, normoactive bowel sounds. Absent: tenderness, distended - Routine Extremities Exam Absent: cyanosis, clubbing, edema - Routine Skin Exam Present: intact. Absent: cyanosis, erythema - Routine Neurological Exam Present: moving all extremities Septic Shock Reassessment Septic shock perfusion: reassessment completed Caprini VTE Risk Assessment Caprini VTE Risk Assessment: Moderate/High Risk (score >= 2) Caprini Risk Assessment Model: Point Value = 1 Point Value = 2 Point Value = 3 Point Value = 5 Age 41-60 Minor surgery BMI > 25 kg/m2 Swollen legs Varicose veins or History of unexplained or recurrent spontaneous Oral contraceptives or hormone replacement Sepsis (< 1 month) Serious lung disease, including pneumonia (< 1 month) Abnormal pulmonary function Acute myocardial infarction Congestive heart failure (< 1 month) History of inflammatory bowel disease Medical patient at bed rest Age 61-74 Arthroscopic surgery Major open surgery (> 45 min) Laparoscopic surgery (> 45 min) Malignancy Confined to bed (> 72 hours) Immobilizing plaster cast Central venous access Age >= 75 History of VTE Family history of VTE Factor V Leiden Prothrombin [id number] Lupus anticoagulant Anticardiolipin antibodies Elevated serum homocysteine Heparin-induced thrombocytopenia Other congenital or acquired thrombophilia Stroke (< 1 month) Elective arthroplasty Hip, pelvis, or leg fracture Acute spinal cord injury (< 1 month) Prophylaxis Regimen: Total Risk Factor Score Risk Level Prophylaxis Regimen 0-1 Low Early ambulation 2 Moderate Order ONE of the following: *Sequential Compression Device (SCD) *Heparin 5000 units SQ BID 3-4 Higher Order ONE of the following medications: *Heparin 5000 units SQ TID *Enoxaparin/Lovenox 40 mg SQ daily (WT < 150 kg, CrCl > 30 mL/min) *Enoxaparin/Lovenox 30 mg SQ daily (WT < 150 kg, CrCl > 10-29 mL/min) *Enoxaparin/Lovenox 30 mg SQ BID (WT < 150 kg, CrCl > 30 mL/min) AND/OR *Sequential Compression Device (SCD) 5 or more Highest Order ONE of the following medications: *Heparin 5000 units SQ TID (Preferred with Epidurals) *Enoxaparin/Lovenox 40 mg SQ daily (WT < 150 kg, CrCl > 30 mL/min) *Enoxaparin/Lovenox 30 mg SQ daily (WT < 150 kg, CrCl > 10-29 mL/min) *Enoxaparin/Lovenox 30 mg SQ BID (WT < 150 kg, CrCl > 30 mL/min) AND *Sequential Compression Device (SCD) Assessment and Plan - Assessment and Plan Plan: Respiratory failure -Hypercarbic respiratory failure -Vent bundle -SBT daily -Attempt to wean and extubate in a.m. Altered mental status -Due to above -CT head negative -MRI of the neck negative -Supportive care Hypotension -Aggressive IV fluid resuscitation -Central line and Levophed to keep map above 65 -Blood culture Hypothyroidism -TSH and T4 within normal limits -Continue Synthroid Dyslipidemia - Pravastatin DVT GI prophylaxis -Teds SCDs -Subcu heparin -Pepcid 35 minutes of critical care
--- NOTE | 2018-03-31 19:36 | MB ---
cc: Lev Farias MD DATE: 03/31/2018 HISTORY OF PRESENT ILLNESS: This 67-year-old came into the emergency room today with his and daughter. On 02/13/2018, he had a microdiscectomy, C5-C6, by Dr. Dickey. Discharged the next day. A few days after, he had not been feeling well, short of breath, disoriented, generally weak, symptoms were getting worse, disorientation was worse. He was Brought into the hospital. MEDICATIONS AT HOME: 1. Aspirin. 2. Thyroid medicine. 3. Protonix. 4. Pravastatin. 5. Norvasc. 6. Zantac. ALLERGIES: SULFA. PAST MEDICAL HISTORY: Thyroid disease, raspy voice, high cholesterol, GERD. REVIEW OF SYSTEMS: Unable to obtain from the patient now is intubated. SOCIAL HISTORY: Not a user, not a smoker. Rare alcohol. PHYSICAL EXAMINATION: GENERAL: Currently intubated, 100-108, 91/58, blood pressure initially 148/82, went as high as 185/88, lowest 91/58. NECK: There were no carotid bruits. HEART: Regular rate and rhythm. I did not detect a murmur. He is in sinus rhythm. NEUROLOGIC: He is intubated. The pupils are equal. Flaccid throughout. No ankle clonus. Toes downgoing bilaterally. DTRs absent. He is fully sedated. LABORATORY DATA: CBC: White count 12.8, otherwise normal. UA essentially negative. Basic metabolic profile: Sodium was 129, BUN 18. LFTs normal, Albumin, B12, folate, thyroid all normal. ABG, however, was 7.08 with a pCO2 148, pO2 of 391. Repeat gas after intubation 7.39, 52 with a pO2 of only 56, O2 saturation 89%. Coags normal. MRI of the brain normal. No old or new strokes. MRI of the cervical spine generally unremarkable. IMPRESSION: Hypercapnia likely causing a lot of his symptoms. We will have neurology follow up with him, but overall that probably was more than likely his primary problem. MD HERMILA Bustamante/paty , 06:44 PM , 06:49 PM
[2018-03-31] MEDS: Chlorhexidine 0.12% Oral Kit 15 ML UDC OROPHARYNG SCH (20:41)
[2018-03-31] MEDS ORDERED: Sod Chloride 0.9% Inj 1,000 ML IV.SIG ONE (21:00)
[2018-03-31] MEDS: Famotidine 20 MG Tablet PO SCH (21:42)
[2018-03-31] MEDS: Famotidine PF Inj 20 MG/2 ML Vial IV.PUSH SCH (21:42)
[2018-03-31] MEDS: Senna/Docusate Sodium 8.6/50 MG Tablet PO SCH (21:43)
[2018-03-31] MEDS: Midazolam 100 MG/100 ML Inj 100 MG/100 ML BAG IV.CONT PRN (21:44)
[2018-03-31] MEDS: fentaNYL 10 mcg/mL Premix Drip 2,500 MCG/250 ML BAG IV.SIG PRN (21:44)
[2018-03-31] MEDS: Acetaminophen 325 MG Tablet PO PRN (22:19)
[2018-03-31] MEDS: KCL 20 mEq/NACL 0.45% Inj 1,000 ML IV.CONT SCH (23:32)
[2018-03-31 23:42] LABS: ABG Base Excess 3.7 mmol/L (-2-2); ABG PCO2 37 mmHg (38-42); ABG PO2 240 mmHg (61-120)
[2018-03-31 23:45] LABS: Amphetamine Screen,Urine Neg (Neg); Barbiturate Screen,Urine Neg (Neg); Cannabinoid Screen,Urine Neg (Neg); Cocaine Screen,Urine Neg (Neg)
[2018-03-31 23:46] LABS: Opiate Screen,Urine Neg (Neg)
[2018-04-01] MEDS: Oral Hygiene Kit OROPHARYNG SCH ×4 (00:36→15:54)
[2018-04-01] MEDS: Sod Chloride 0.9% Inj 1,000 ML IV.SIG SCH ×3 (00:36→07:49)
[2018-04-01] MEDS: Sod Chloride 0.9% Inj 1,000 ML IV.CONT SCH ×4 (00:37→21:57)
[2018-04-01] MEDS: KCL 20 mEq/NACL 0.45% Inj 1,000 ML IV.CONT SCH ×2 (03:50→14:23)
[2018-04-01] MEDS ORDERED: Chlorhexidine Gluconate 2% 1 Pack (2 Cloths) TOPICAL PRN (04:00)
[2018-04-01 04:27] LABS: Baso % (Auto) 0.1 % (0.0-2.0); Hemoglobin 13.6 gm/dL (13.0-17.0); Lymph # (Auto) 0.8 th/mm3 (1.0-4.8); Lymph % (Auto) 4.4 % (9.0-44.0); Mean Corpuscular HGB Conc 32.5 % (32.0-36.0); Mean Corpuscular Hemoglobin 30.4 pg (27.0-34.0); Mean Corpuscular Volume 93.6 fL (80.0-100.0); Mean Platelet Volume 7.1 fL (7.0-11.0); Mono # (Auto) 1.3 th/mm3 (0.0-0.9); Mono % (Auto) 7.5 % (0.0-8.0); Neut # (Auto) 14.9 th/mm3 (1.8-7.7); Platelet Count 248 th/mm3 (150-450); Red Blood Count 4.49 mil/mm3 (4.50-5.90); Red Cell Distribution Width 14.3 % (11.6-17.2)
--- NOTE | 2018-04-01 04:33 | P.PCN ---
Date of procedure: 04/01/18 Pre-op diagnosis: Hypertension Post-op diagnosis: same Procedure: Central line placement A time-out was completed verifying correct patient, procedure, site, positioning , and special equipment if applicable. The patient was placed in a dependent position appropriate for central line placement based on the vein to be cannulated. The patients left shoulder was prepped and draped in sterile fashion. 1% Lidocaine was used to anesthetize the surrounding skin area. A triple lumen 9-[place] Cordis catheter was introduced into the the left subclavian vein using the Seldinger technique. The catheter was threaded smoothly over the guide wire and appropriate blood return was obtained. Each lumen of the catheter was evacuated of air and flushed with sterile saline. The catheter was then sutured in place to the skin and a sterile dressing applied. Perfusion to the extremity distal to the point of catheter insertion was checked and found to be adequate. Estimated Blood Loss: 1ml The patient tolerated the procedure well and there were no complications.
[2018-04-01] MEDS: Chlorhexidine Gluconate 2% 1 Pack (2 Cloths) TOPICAL SCH (04:47)
[2018-04-01 04:52] LABS: Alanine Aminotransferase 65 U/L (12-78); Anion Gap 9 meq/L (5-15); Aspartate Aminotransferase 35 U/L (15-37); Blood Urea Nitrogen 23 mg/dL (7-18); Calcium 8.3 mg/dL (8.5-10.1); Carbon Dioxide 28.4 meq/L (21.0-32.0); Chloride 100 meq/L (98-107); Glomerular Filtration Rate 83 mL/min (>89); Glucose,Random 83 mg/dL (74-106); Magnesium 1.9 mg/dL (1.5-2.5); Sodium 137 meq/L (136-145)
[2018-04-01 04:57] LABS: Alkaline Phosphatase 52 U/L (45-117); Total Protein 5.5 g/dL (6.4-8.2); Troponin I 0.05 ng/mL (0.02-0.05)
--- NOTE | 2018-04-01 06:09 | XR ---
EXAM DATE: 04/01/2018 6:00 AM EST AGE/SEX: 67 years / Male INDICATIONS: Central line placement. CLINICAL DATA: This is the patient's initial encounter. Patient reports that signs and symptoms have been present for 1 day and indicates a pain score of Nonresponsive. MEDICAL/SURGICAL HISTORY: . Gastroesophageal reflux disease. thyroid disease, left inguinal her anastasia . None. COMPARISON: [facility] [place], CHEST 1V SINGLE AP, 03/31/2018. . FINDINGS: Single AP view of the chest. Endotracheal tube remains in place. Nasogastric tube is now in place tip in the stomach. Left subclavian central venous catheter is now in place with the tip at the distal S VC. No evidence of pneumothorax. Mild atelectasis at lung bases unchanged. CONCLUSION: 1. Nasogastric tube and left subclavian central venous catheter now in place. 2. Mild bilateral lower lung zone atelectasis unchanged. No evidence of pneumothorax. Electronically signed by: Beto De Oliveira MD Board Certified Radiologist 04/01/2018 6:08 AM EST
[2018-04-01] MEDS: Levothyroxine 125 MCG Tablet PO SCH (06:48)
[2018-04-01] MEDS ORDERED: Vancomycin Consult Pharmacy OTHER PRN (07:05)
[2018-04-01] MEDS: Senna/Docusate Sodium 8.6/50 MG Tablet PO SCH ×2 (08:15→20:47)
[2018-04-01] MEDS: Famotidine 20 MG Tablet PO SCH (08:15)
[2018-04-01] MEDS: Famotidine PF Inj 20 MG/2 ML Vial IV.PUSH SCH ×2 (10:52→20:47)
[2018-04-01] MEDS: Vancomycin Inj 1,750 MG in Sodium Chlor 0.9% Inj 500 ML IV.SIG SCH ×2 (10:57→21:57)
[2018-04-01] MEDS: Chlorhexidine 0.12% Oral Kit 15 ML UDC OROPHARYNG SCH ×2 (10:58→20:48)
--- NOTE | 2018-04-01 11:37 | P.PNNEU ---
Subjective Subjective Comments: The patient is seen at ICU with and daughter at bed side, RN is also in the room. Currently intubated and sedated s/p respiratory failure, is concerned regatding possible seizure referring to frequent " jerks over the body" when has was laboriously breathing. Imaging of the brain were done Active Medications: Active Medications Acetaminophen (Tylenol) 650 mg PO Q4H PRN PRN Reason: Temp > 100.4 Last Admin: 03/31/18 22:19 Dose: 650 mg Al Hydroxide/Mg Hydroxide (Milk Of Magnjacque Liq) 30 ml PO Q12H PRN PRN Reason: Mild Constipation Albuterol (Duoneb Neb (Prn)) 1 ampul NEB Q4HR NEB PRN PRN Reason: SHORTNESS OF BREATH Albuterol (Duoneb Neb (Je)) 1 ampul NEB Q6HR NEB [facility] Last Admin: 04/01/18 07:54 Dose: 1 ampul Aspirin (Ecotrin) 81 mg PO DAILY [facility] Last Admin: 04/01/18 08:15 Dose: 81 mg Chlorhexidine Gluconate (Peridex 0.12% Oral Kit) 15 ml OROPHARYNG BID@0800, 2000 [facility] Last Admin: 04/01/18 10:58 Dose: 15 ml Chlorhexidine Gluconate (Chlorhexidine 2% Cloth) 3 pack TOPICAL DAILY@0400 [facility] Stop: 04/06/18 03:59 Last Admin: 04/01/18 04:47 Dose: 3 pack Chlorhexidine Gluconate (Chlorhexidine 2% Cloth) 3 pack TOPICAL DAILY@0400 PRN PRN Reason: Extra cloth needed Stop: 04/06/18 03:59 Enoxaparin Sodium (Lovenox Inj) 30 mg SQ Q24H [facility] Famotidine (Pepcid) 20 mg PO BID [facility] Last Admin: 04/01/18 08:15 Dose: 20 mg Famotidine (Pepcid Pf Inj) 20 mg IV.PUSH Q12HR [facility] Last Admin: 04/01/18 10:52 Dose: Not Given Potassium Chloride/Sodium Chloride (Potassium Chlor 20 Meq/Nacl 0.45% Inj) 1, 000 mls @ 84 mls/hr IV.CONT .[id number] [facility] Last Admin: 04/01/18 03:50 Dose: Not Given Sodium Chloride (Ns Inj) 1,000 mls @ 75 mls/hr IV.CONT .[id number] [facility] Last Admin: 04/01/18 07:48 Dose: 75 mls/hr Fentanyl (Fentanyl 10 Mcg/Ml Premix Drip) 2,500 mcg in 250 mls @ 5 mls/hr IV.SIG TITRATE PRN; Protocol PRN Reason: Per Protocol Last Admin: 03/31/18 21:44 Dose: 50 mcg/hr, 5 mls/hr Midazolam HCl (Versed Inj) 100 mg in 100 mls @ 2 mls/hr IV.CONT TITRATE PRN; Protocol PRN Reason: See protocol Last Admin: 03/31/18 21:44 Dose: 2 mg/hr, 2 mls/hr Norepinephrine Bitartrate (Levophed-Dextrose 4 Mg/250 Ml Drip) 4 mg in 250 mls @ 7.5 mls/hr IV.SIG TITRATE PRN; Protocol PRN Reason: Per Protocol Last Admin: 04/01/18 08:15 Dose: 3 mcg/min, 11.25 mls/hr Cefepime HCl 2,000 mg/ Sodium (Chloride) 100 mls @ 200 mls/hr IV.SIG Q8H [facility] Last Infusion: 04/01/18 08:45 Dose: Infused Vancomycin HCl 1,750 mg/ (Sodium Chloride) 517.5 mls @ 250 mls/hr IV.SIG Q12H [facility] Last Admin: 04/01/18 10:57 Dose: 250 mls/hr Levothyroxine Sodium (Synthroid) 125 mcg PO DAILY@0600 [facility] Last Admin: 04/01/18 06:48 Dose: 125 mcg Miscellaneous Information ([facility] Ordered Lab Info) 0 each OTHER ONCE ONE Stop: 04/03/18 09:46 Miscellaneous Medication () 1 each OROPHARYNG 0000,0400,1200,1600 [facility] Last Admin: 04/01/18 04:47 Dose: 1 each Ondansetron HCl (Zofran Inj) 4 mg IV.PUSH Q6H PRN PRN Reason: NAUSEA OR VOMITING Pharmacy Profile Note (Vancomycin Consult Pharmacy) 1 each OTHER UNSCH PRN PRN Reason: Pharmacy to dose Pravastatin Sodium (Pravachol) 40 mg PO HS [facility] Last Admin: 03/31/18 21:43 Dose: Not Given Senna/Docusate Sodium (Celine-Colace) 1 tab PO BID [facility] Last Admin: 04/01/18 08:15 Dose: 1 tab Sodium Chloride (Ns Flush) 2 ml IV.FLUSH BID [facility] Last Admin: 04/01/18 10:58 Dose: 2 ml Sodium Chloride (Ns Flush) 2 ml IV.FLUSH PRN PRN PRN Reason: FLUSH AFTER USING IV ACCESS Terbutaline Sulfate (Brethine Inj) 1 mg SQ UNSCH PRN PRN Reason: For Extravasation Allergies/Adverse Reactions: Allergies Allergy/AdvReac Type Severity Reaction Status Date / Time Sulfa (Sulfonamide Allergy Severe Nausea Verified 02/15/18 05:02 Antibiotics) Physical Exam Vital signs: Vital Signs 03/31/18 11:50 03/31/18 12:33 03/31/18 14:04 Temperature 97.4 F L Pulse Rate 107 H 101 H Respiratory Rate 16 26 H Blood Pressure 148/82 H 185/88 H Pulse Oximetry 90 L 93 L 95 03/31/18 14:58 03/31/18 16:04 03/31/18 16:36 Temperature 97.6 F Pulse Rate 106 H 101 H Respiratory Rate 32 H 16 Blood Pressure 173/84 H 101/53 L 100/56 L Pulse Oximetry 95 100 03/31/18 16:38 03/31/18 16:48 03/31/18 17:22 Temperature Pulse Rate 104 H 97 H 102 H Respiratory Rate 16 16 16 Blood Pressure 96/53 L 109/63 109/64 Pulse Oximetry 100 100 100 03/31/18 17:33 03/31/18 17:36 03/31/18 17:52 Temperature Pulse Rate 110 H 108 H 100 H Respiratory Rate 16 16 16 Blood Pressure 103/56 L 91/58 L 107/71 Pulse Oximetry 100 100 03/31/18 18:18 03/31/18 18:20 03/31/18 18:21 Temperature 101.1 F H Pulse Rate 105 H Respiratory Rate 31 H 20 Blood Pressure 91/55 L Pulse Oximetry 95 98 03/31/18 18:25 03/31/18 18:37 03/31/18 18:49 Temperature Pulse Rate 103 H 90 98 H Respiratory Rate 24 20 20 Blood Pressure 157/95 H 44/28 L 114/77 Pulse Oximetry 90 L 87 L 90 L 03/31/18 18:53 03/31/18 19:00 03/31/18 19:02 Temperature Pulse Rate 114 H 118 H Respiratory Rate 20 20 Blood Pressure 144/80 H Pulse Oximetry 100 98 98 03/31/18 19:25 03/31/18 19:31 03/31/18 19:33 Temperature Pulse Rate 112 H 113 H 128 H Respiratory Rate 28 H 20 28 H Blood Pressure 111/63 93/75 L 92/62 L Pulse Oximetry 100 100 03/31/18 19:46 03/31/18 19:58 03/31/18 20:00 Temperature 100.9 F H 101.1 F H Pulse Rate 110 H 99 H 96 H Respiratory Rate 20 20 20 Blood Pressure 57/42 L 60/40 L Pulse Oximetry 97 94 L 93 L 03/31/18 20:01 03/31/18 20:04 03/31/18 20:07 Temperature 101.1 F H 101.5 F H 101.5 F H Pulse Rate 99 H 96 H 101 H Respiratory Rate 20 20 20 Blood Pressure 60/40 L 63/43 L 91/51 L Pulse Oximetry 94 L 94 L 98 03/31/18 20:10 03/31/18 20:13 03/31/18 20:27 Temperature 101.5 F H 101.5 F H Pulse Rate 102 H 112 H Respiratory Rate 20 20 20 Blood Pressure 89/54 L 92/57 L Pulse Oximetry 100 100 100 03/31/18 20:32 03/31/18 21:13 03/31/18 21:19 Temperature 101.3 F H 101.5 F H Pulse Rate 109 H 113 H 112 H Respiratory Rate 20 21 21 Blood Pressure 112/56 L Pulse Oximetry 100 100 03/31/18 21:22 03/31/18 21:25 03/31/18 21:28 Temperature 101.5 F H 101.5 F H 101.5 F H Pulse Rate 112 H 112 H 111 H Respiratory Rate 20 20 20 Blood Pressure 105/59 L 102/57 L 106/56 L Pulse Oximetry 100 100 100 03/31/18 21:31 03/31/18 21:34 03/31/18 21:37 Temperature 101.5 F H 101.5 F H 101.5 F H Pulse Rate 107 H 109 H 112 H Respiratory Rate 20 20 20 Blood Pressure 98/58 L 101/58 L 97/53 L Pulse Oximetry 100 100 100 03/31/18 21:40 03/31/18 21:43 03/31/18 21:46 Temperature 101.7 F H 101.7 F H 101.7 F H Pulse Rate 111 H 110 H 108 H Respiratory Rate 20 20 20 Blood Pressure 91/55 L 79/53 L Pulse Oximetry 100 100 100 03/31/18 21:49 03/31/18 21:52 03/31/18 21:55 Temperature 101.7 F H 101.7 F H 101.7 F H Pulse Rate 107 H 104 H 102 H Respiratory Rate 20 20 20 Blood Pressure 88/53 L 81/55 L 82/54 L Pulse Oximetry 100 100 100 03/31/18 21:58 03/31/18 22:00 03/31/18 22:01 Temperature 101.7 F H 101.7 F H 101.7 F H Pulse Rate 97 H 101 H 99 H Respiratory Rate 20 20 20 Blood Pressure 86/51 L 89/54 L Pulse Oximetry 100 100 100 03/31/18 22:04 03/31/18 22:07 03/31/18 22:10 Temperature 101.7 F H 101.7 F H 101.7 F H Pulse Rate 102 H 102 H Respiratory Rate 20 20 24 Blood Pressure 109/59 L 105/61 111/60 Pulse Oximetry 100 100 100 03/31/18 22:13 03/31/18 22:16 03/31/18 22:19 Temperature 101.5 F H 101.5 F H 101.5 F H Pulse Rate 104 H 106 H 106 H Respiratory Rate 20 20 20 Blood Pressure 113/60 115/67 116/67 Pulse Oximetry 100 100 100 03/31/18 22:22 03/31/18 22:25 03/31/18 22:27 Temperature 101.3 F H 101.3 F H 101.3 F H Pulse Rate 102 H 103 H 104 H Respiratory Rate 20 20 20 Blood Pressure 118/71 117/77 Pulse Oximetry 100 100 100 03/31/18 22:28 03/31/18 22:31 03/31/18 22:34 Temperature 101.3 F H 101.1 F H 101.1 F H Pulse Rate 104 H 101 H 102 H Respiratory Rate 20 20 20 Blood Pressure 127/71 130/70 132/72 Pulse Oximetry 100 100 100 03/31/18 22:41 03/31/18 22:51 03/31/18 23:00 Temperature 100.9 F H 100.9 F H 100.9 F H Pulse Rate 102 H 105 H 108 H Respiratory Rate 20 20 20 Blood Pressure 137/75 139/97 H Pulse Oximetry 100 100 100 03/31/18 23:01 03/31/18 23:11 03/31/18 23:21 Temperature 100.9 F H 100.8 F H 100.6 F H Pulse Rate 100 H 103 H 101 H Respiratory Rate 20 20 20 Blood Pressure 128/72 121/70 113/66 Pulse Oximetry 100 100 100 03/31/18 23:31 03/31/18 23:51 04/01/18 00:00 Temperature 100.4 F H Pulse Rate 98 H 92 H 98 H Respiratory Rate 20 20 22 Blood Pressure 107/60 110/59 L Pulse Oximetry 100 100 100 04/01/18 00:01 04/01/18 00:11 04/01/18 00:21 Temperature 100.4 F H 100.4 F H 100.4 F H Pulse Rate 100 H 97 H 100 H Respiratory Rate 20 20 20 Blood Pressure 110/77 106/71 105/70 Pulse Oximetry 100 100 100 04/01/18 00:31 04/01/18 00:41 04/01/18 00:47 Temperature 100.4 F H 100.6 F H 100.6 F H Pulse Rate 97 H 89 89 Respiratory Rate 20 20 20 Blood Pressure 88/58 L 83/56 L 93/61 L Pulse Oximetry 100 100 100 04/01/18 00:51 04/01/18 01:00 04/01/18 01:01 Temperature 100.6 F H 100.6 F H 100.6 F H Pulse Rate 89 87 89 Respiratory Rate 20 20 20 Blood Pressure 94/60 L 97/57 L Pulse Oximetry 100 100 100 04/01/18 01:11 04/01/18 01:16 04/01/18 01:21 Temperature 100.6 F H 100.6 F H Pulse Rate 88 88 Respiratory Rate 20 20 Blood Pressure 91/60 L 96/61 L Pulse Oximetry 100 100 100 04/01/18 01:31 04/01/18 01:41 04/01/18 01:51 Temperature 100.6 F H 100.6 F H 100.6 F H Pulse Rate 90 96 H 97 H Respiratory Rate 20 20 20 Blood Pressure 94/58 L 103/58 L 119/73 Pulse Oximetry 100 99 100 04/01/18 02:00 04/01/18 02:01 04/01/18 02:11 Temperature 100.4 F H 100.4 F H 100.2 F H Pulse Rate 99 H 99 H 101 H Respiratory Rate 20 20 20 Blood Pressure 128/78 117/80 Pulse Oximetry 98 100 100 04/01/18 02:21 04/01/18 02:31 04/01/18 02:41 Temperature 100.2 F H 100.2 F H 100.2 F H Pulse Rate 98 H 92 H 88 Respiratory Rate 20 20 20 Blood Pressure 108/66 92/55 L Pulse Oximetry 100 100 100 04/01/18 02:45 04/01/18 02:51 04/01/18 03:00 Temperature 100.4 F H 100.4 F H 100.4 F H Pulse Rate 88 84 91 H Respiratory Rate 20 20 20 Blood Pressure 94/51 L 121/64 Pulse Oximetry 100 100 100 04/01/18 03:01 04/01/18 03:11 04/01/18 03:21 Temperature 100.4 F H 100.2 F H 100.2 F H Pulse Rate 85 84 85 Respiratory Rate 20 20 20 Blood Pressure 111/57 L 114/64 117/67 Pulse Oximetry 100 100 100 04/01/18 03:31 04/01/18 03:41 04/01/18 03:51 Temperature 100.0 F H 100.0 F H 99.7 F H Pulse Rate 87 89 88 Respiratory Rate 20 20 20 Blood Pressure 118/68 124/76 125/75 Pulse Oximetry 100 100 100 04/01/18 03:58 04/01/18 04:00 04/01/18 04:04 Temperature 99.3 F Pulse Rate 91 H 100 H Respiratory Rate 20 22 22 Blood Pressure 114/69 Pulse Oximetry 100 100 85 L 04/01/18 04:11 04/01/18 04:21 04/01/18 04:31 Temperature Pulse Rate 95 H 93 H 107 H Respiratory Rate 20 20 22 Blood Pressure 120/66 128/69 105/66 Pulse Oximetry 100 100 100 04/01/18 04:41 04/01/18 04:51 04/01/18 05:00 Temperature Pulse Rate 98 H 101 H 98 H Respiratory Rate 20 24 20 Blood Pressure 119/69 112/61 Pulse Oximetry 100 99 99 04/01/18 05:01 04/01/18 05:11 04/01/18 05:21 Temperature Pulse Rate 97 H 97 H 98 H Respiratory Rate 20 20 20 Blood Pressure 115/66 112/63 111/60 Pulse Oximetry 100 100 100 04/01/18 05:31 04/01/18 05:41 04/01/18 05:51 Temperature Pulse Rate 95 H 92 H 90 Respiratory Rate 20 20 20 Blood Pressure 103/56 L 106/56 L 107/57 L Pulse Oximetry 100 100 100 04/01/18 06:00 04/01/18 06:01 04/01/18 06:11 Temperature Pulse Rate 91 H 93 H 88 Respiratory Rate 20 20 20 Blood Pressure 92/49 L 107/63 Pulse Oximetry 98 98 100 04/01/18 06:20 04/01/18 06:21 04/01/18 06:31 Temperature Pulse Rate 97 H 97 H 96 H Respiratory Rate 20 21 20 Blood Pressure 101/58 L 111/63 Pulse Oximetry 99 99 100 04/01/18 06:41 04/01/18 06:51 04/01/18 07:00 Temperature Pulse Rate 93 H 95 H 93 H Respiratory Rate 20 20 20 Blood Pressure 113/65 112/65 Pulse Oximetry 100 100 100 04/01/18 07:01 04/01/18 07:11 04/01/18 07:21 Temperature Pulse Rate 94 H 92 H 89 Respiratory Rate 20 20 20 Blood Pressure 110/60 111/61 107/55 L Pulse Oximetry 100 100 100 04/01/18 07:31 04/01/18 07:41 04/01/18 07:51 Temperature Pulse Rate 87 86 92 H Respiratory Rate 20 20 20 Blood Pressure 104/57 L 104/56 L 120/69 Pulse Oximetry 100 100 100 04/01/18 07:55 04/01/18 08:00 04/01/18 08:01 Temperature 99.4 F Pulse Rate 95 H 93 H 95 H Respiratory Rate 20 20 23 Blood Pressure 120/68 Pulse Oximetry 100 100 100 04/01/18 08:11 04/01/18 08:21 04/01/18 08:31 Temperature Pulse Rate 96 H 96 H 98 H Respiratory Rate 20 20 20 Blood Pressure 125/72 124/71 111/60 Pulse Oximetry 100 100 100 04/01/18 08:41 04/01/18 08:50 04/01/18 08:51 Temperature 98.4 F Pulse Rate 98 H 97 H 96 H Respiratory Rate 20 20 20 Blood Pressure 107/56 L 98/53 L Pulse Oximetry 100 100 100 04/01/18 09:00 04/01/18 09:01 04/01/18 09:11 Temperature 98.6 F 98.6 F Pulse Rate 95 H 93 H 91 H Respiratory Rate 20 20 20 Blood Pressure 93/52 L 93/52 L Pulse Oximetry 100 100 100 04/01/18 09:21 04/01/18 09:31 04/01/18 09:41 Temperature Pulse Rate 89 88 90 Respiratory Rate 20 20 26 H Blood Pressure 94/54 L 97/56 L 97/59 L Pulse Oximetry 100 100 100 04/01/18 09:51 04/01/18 10:00 04/01/18 10:01 Temperature Pulse Rate 87 87 86 Respiratory Rate 20 20 Blood Pressure 116/58 L 116/58 L Pulse Oximetry 100 100 100 04/01/18 10:11 04/01/18 10:21 04/01/18 10:31 Temperature Pulse Rate 86 87 86 Respiratory Rate 20 20 20 Blood Pressure 116/60 113/59 L 110/61 Pulse Oximetry 100 100 100 04/01/18 10:41 04/01/18 10:51 04/01/18 11:00 Temperature 98.4 F Pulse Rate 85 84 95 H Respiratory Rate 20 20 20 Blood Pressure 114/65 114/68 Pulse Oximetry 100 100 99 04/01/18 11:01 04/01/18 11:08 04/01/18 11:11 Temperature Pulse Rate 94 H 95 H Respiratory Rate 20 20 20 Blood Pressure 128/59 L 132/65 Pulse Oximetry 99 99 100 04/01/18 11:15 Temperature Pulse Rate 96 H Respiratory Rate 20 Blood Pressure Pulse Oximetry 100 Intake & Output 03/31/18 04/01/18 04/01/18 18:59 06:59 18:59 Intake Total 1999 4000 / 4000 350 / 350 Output Total 1000 / 1000 Balance 1999 3000 / 3000 350 / 350 Weight 78.925 kg 85 kg Intake: IV 1999 / 1999 4000 / 4000 350 / 350 NS Inj 1,000 ML @ 75 mls/hr IV. 1000 / 1000 CONT .[id number] [facility] Rx#:[id number] Maxipime Inj 2,000 MG In NS Inj 100 / 100 100 ML @ 200 mls/hr IV.SIG Q8H [facility] Rx#:[id number] Levophed-Dextrose 4 mg/250 ml 250 / 250 Drip 4 mg In 250 ml @ 2 MCG/MIN 7.5 mls/hr IV.SIG TITRATE PRN Rx#:[id number] NS Inj 1,000 ML @ 3000 mls/hr 2000 / 2000 3000 / 3000 IV.SIG Q20M [facility] Rx#:[id number] Output: Urine Amount (Catheter) 1000 / 1000 Indwelling Urethral Catheter 1000 / 1000 Other: Weight On Admission 85.9 kg Narrative: intubated, sedated - Routine HEENT Exam Head: Present: normocephalic, atraumatic - Routine Cardiovascular Exam Present: RRR, murmur - Routine Abdominal Exam Present: soft, normoactive bowel sounds - Urinary Catheter Management Indwelling Urethral Catheter Cath placed during this visit: yes Reason for continuing: Hourly intake/output Insertion date: 03/31/18 Insertion time: 18:00 Objective Laboratory Results - last 24 hr 03/31/18 03/31/18 03/31/18 12:30 12:30 12:30 WBC 12.8 H RBC 4.96 Hgb 15.7 Hct 46.5 MCV 93.9 MCH 31.6 MCHC 33.7 RDW 13.7 Plt Count 331 MPV 7.0 Neut % (Auto) 84.7 H Lymph % (Auto) 4.2 L Spencer % (Auto) 10.8 H Eos % (Auto) 0.1 Baso % (Auto) 0.2 Neut # (Auto) 10.8 H Lymph # (Auto) 0.5 L Spencer # (Auto) 1.4 H Eos # (Auto) 0.0 Baso # (Auto) 0.0 WBC Differential . Differential Comment Auto diff final PT 10.2 INR 1.0 APTT 27.6 Puncture Site Patient Temperature O2 Saturation ABG pH ABG pCO2 ABG pO2 ABG HCO3 ABG O2 Content ABG Base Excess ABG Methemoglobin David Test Hemoglobin Carboxyhemoglobin O2 Delivery Device Vent Setting Inspired O2 Critical Value Sodium 129 L Potassium 3.9 Chloride 89 L Carbon Dioxide 37.2 H Anion Gap 3 L BUN 18 Creatinine 0.76 Estimated GFR Greater than 89 POC Glucose Random Glucose 138 H Lactic Acid Calcium 9.0 Magnesium Total Bilirubin 0.6 AST 33 ALT 72 Alkaline Phosphatase 72 Ammonia Total Creatine Kinase 101 CK-MB (CK-2) 9.7 H Troponin I Less than 0.02 L B-Natriuretic Peptide Total Protein 7.7 Albumin 3.9 Vitamin B12 578 Folate Greater than 20.0 H TSH 0.754 Free T4 1.12 Urine Color Urine Clarity Urine pH Ur Specific [place] Urine Protein Urine Glucose (UA) Urine Ketones Urine Occult Blood Urine Nitrate Urine Bilirubin Urine Urobilinogen Ur Leukocyte Esterase Urine RBC Urine WBC Hyaline Casts Micro UA Comment Ur Microscopic Review Urine Culture Comments Nasal Screen MRSA (PCR) Urine Opiates Screen Ur Barbiturates Screen Ur Amphetamines Screen U Benzodiazepines Scrn Urine Cocaine Screen U Cannabinoids Screen 03/31/18 03/31/18 03/31/18 12:30 12:30 12:30 WBC RBC Hgb Hct MCV MCH MCHC RDW Plt Count MPV Neut % (Auto) Lymph % (Auto) Spencer % (Auto) Eos % (Auto) Baso % (Auto) Neut # (Auto) Lymph # (Auto) Spencer # (Auto) Eos # (Auto) Baso # (Auto) WBC Differential Differential Comment PT INR APTT Puncture Site Patient Temperature O2 Saturation ABG pH ABG pCO2 ABG pO2 ABG HCO3 ABG O2 Content ABG Base Excess ABG Methemoglobin David Test Hemoglobin Carboxyhemoglobin O2 Delivery Device Vent Setting Inspired O2 Critical Value Sodium Potassium Chloride Carbon Dioxide Anion Gap BUN Creatinine Estimated GFR POC Glucose Random Glucose Lactic Acid Calcium Magnesium Total Bilirubin AST ALT Alkaline Phosphatase Ammonia Total Creatine Kinase Cancelled CK-MB (CK-2) Troponin I Cancelled B-Natriuretic Peptide 26 Total Protein Albumin Vitamin B12 Cancelled Folate Cancelled TSH Cancelled Free T4 Cancelled Urine Color Urine Clarity Urine pH Ur Specific [place] Urine Protein Urine Glucose (UA) Urine Ketones Urine Occult Blood Urine Nitrate Urine Bilirubin Urine Urobilinogen Ur Leukocyte Esterase Urine RBC Urine WBC Hyaline Casts Micro UA Comment Ur Microscopic Review Urine Culture Comments Nasal Screen MRSA (PCR) Urine Opiates Screen Ur Barbiturates Screen Ur Amphetamines Screen U Benzodiazepines Scrn Urine Cocaine Screen U Cannabinoids Screen 03/31/18 03/31/18 03/31/18 12:54 14:15 14:55 WBC RBC Hgb Hct MCV MCH MCHC RDW Plt Count MPV Neut % (Auto) Lymph % (Auto) Spencer % (Auto) Eos % (Auto) Baso % (Auto) Neut # (Auto) Lymph # (Auto) Spencer # (Auto) Eos # (Auto) Baso # (Auto) WBC Differential Differential Comment PT INR APTT Puncture Site Patient Temperature O2 Saturation ABG pH ABG pCO2 ABG pO2 ABG HCO3 ABG O2 Content ABG Base Excess ABG Methemoglobin David Test Hemoglobin Carboxyhemoglobin O2 Delivery Device Vent Setting Inspired O2 Critical Value Sodium Potassium Chloride Carbon Dioxide Anion Gap BUN Creatinine Estimated GFR POC Glucose 119 H Random Glucose Lactic Acid Calcium Magnesium Total Bilirubin AST ALT Alkaline Phosphatase Ammonia Total Creatine Kinase CK-MB (CK-2) Troponin I B-Natriuretic Peptide Total Protein Albumin Vitamin B12 Folate TSH Free T4 Urine Color Yellow Urine Clarity Clear Urine pH 6.0 Ur Specific [place] 1.013 Urine Protein 30 H Urine Glucose (UA) Negative Urine Ketones Negative Urine Occult Blood Moderate H Urine Nitrate Negative Urine Bilirubin Negative Urine Urobilinogen Less than 2 Ur Leukocyte Esterase Negative Urine RBC 27 H Urine WBC 1 Hyaline Casts 8 Micro UA Comment Culture not ind Ur Microscopic Review Not Reportable Urine Culture Comments Culture not ind Nasal Screen MRSA (PCR) Urine Opiates Screen Neg Ur Barbiturates Screen Neg Ur Amphetamines Screen Neg U Benzodiazepines Scrn Neg Urine Cocaine Screen Neg U Cannabinoids Screen Neg 03/31/18 03/31/18 03/31/18 15:50 16:03 18:32 WBC RBC Hgb Hct MCV MCH MCHC RDW Plt Count MPV Neut % (Auto) Lymph % (Auto) Spencer % (Auto) Eos % (Auto) Baso % (Auto) Neut # (Auto) Lymph # (Auto) Spencer # (Auto) Eos # (Auto) Baso # (Auto) WBC Differential Differential Comment PT INR APTT Puncture Site Right radial Right radial Patient Temperature 98.6 98.6 O2 Saturation 98 89 L* ABG pH 7.08 L* 7.39 ABG pCO2 148 H* 52 H* ABG pO2 391 H 56 L* ABG HCO3 41 H 31 H ABG O2 Content 22.4 H 16.9 ABG Base Excess 11.2 H 6.4 H ABG Methemoglobin 0.9 1.3 David Test Y Present Hemoglobin 15.6 13.6 Carboxyhemoglobin 0.5 1.1 O2 Delivery Device Nrb Ventilator Vent Setting Prvc/ac Inspired O2 100 70 Critical Value Yes Yes Sodium Potassium Chloride Carbon Dioxide Anion Gap BUN Creatinine Estimated GFR POC Glucose 119 H Random Glucose Lactic Acid Calcium Magnesium Total Bilirubin AST ALT Alkaline Phosphatase Ammonia Total Creatine Kinase CK-MB (CK-2) Troponin I B-Natriuretic Peptide Total Protein Albumin Vitamin B12 Folate TSH Free T4 Urine Color Urine Clarity Urine pH Ur Specific [place] Urine Protein Urine Glucose (UA) Urine Ketones Urine Occult Blood Urine Nitrate Urine Bilirubin Urine Urobilinogen Ur Leukocyte Esterase Urine RBC Urine WBC Hyaline Casts Micro UA Comment Ur Microscopic Review Urine Culture Comments Nasal Screen MRSA (PCR) Urine Opiates Screen Ur Barbiturates Screen Ur Amphetamines Screen U Benzodiazepines Scrn Urine Cocaine Screen U Cannabinoids Screen 03/31/18 03/31/18 03/31/18 19:09 19:09 19:09 WBC RBC Hgb Hct MCV MCH MCHC RDW Plt Count MPV Neut % (Auto) Lymph % (Auto) Spencer % (Auto) Eos % (Auto) Baso % (Auto) Neut # (Auto) Lymph # (Auto) Spencer # (Auto) Eos # (Auto) Baso # (Auto) WBC Differential Differential Comment PT INR APTT Puncture Site Patient Temperature O2 Saturation ABG pH ABG pCO2 ABG pO2 ABG HCO3 ABG O2 Content ABG Base Excess ABG Methemoglobin David Test Hemoglobin Carboxyhemoglobin O2 Delivery Device Vent Setting Inspired O2 Critical Value Sodium Potassium Chloride Carbon Dioxide Anion Gap BUN Creatinine Estimated GFR POC Glucose Random Glucose Lactic Acid 2.7 H Calcium Magnesium Total Bilirubin AST ALT Alkaline Phosphatase Ammonia 71 H Total Creatine Kinase CK-MB (CK-2) Troponin I 0.03 B-Natriuretic Peptide Total Protein Albumin Vitamin B12 Folate TSH Free T4 Urine Color Urine Clarity Urine pH Ur Specific [place] Urine Protein Urine Glucose (UA) Urine Ketones Urine Occult Blood Urine Nitrate Urine Bilirubin Urine Urobilinogen Ur Leukocyte Esterase Urine RBC Urine WBC Hyaline Casts Micro UA Comment Ur Microscopic Review Urine Culture Comments Nasal Screen MRSA (PCR) Urine Opiates Screen Ur Barbiturates Screen Ur Amphetamines Screen U Benzodiazepines Scrn Urine Cocaine Screen U Cannabinoids Screen 03/31/18 03/31/18 04/01/18 23:20 23:31 00:00 WBC RBC Hgb Hct MCV MCH MCHC RDW Plt Count MPV Neut % (Auto) Lymph % (Auto) Spencer % (Auto) Eos % (Auto) Baso % (Auto) Neut # (Auto) Lymph # (Auto) Spencer # (Auto) Eos # (Auto) Baso # (Auto) WBC Differential Differential Comment PT INR APTT Puncture Site Left radial Patient Temperature 98.6 O2 Saturation 98 ABG pH 7.48 H ABG pCO2 37 L ABG pO2 240 H ABG HCO3 27 H ABG O2 Content 17.5 ABG Base Excess 3.7 H ABG Methemoglobin 1.4 David Test Present Hemoglobin 12.4 Carboxyhemoglobin 0.8 O2 Delivery Device Ventilator Vent Setting Prvc/ac 20 vt 500 Inspired O2 80 Critical Value No Sodium Potassium Chloride Carbon Dioxide Anion Gap BUN Creatinine Estimated GFR POC Glucose Random Glucose Lactic Acid 2.4 H Calcium Magnesium Total Bilirubin AST ALT Alkaline Phosphatase Ammonia Total Creatine Kinase CK-MB (CK-2) Troponin I B-Natriuretic Peptide Total Protein Albumin Vitamin B12 Folate TSH Free T4 Urine Color Urine Clarity Urine pH Ur Specific [place] Urine Protein Urine Glucose (UA) Urine Ketones Urine Occult Blood Urine Nitrate Urine Bilirubin Urine Urobilinogen Ur Leukocyte Esterase Urine RBC Urine WBC Hyaline Casts Micro UA Comment Ur Microscopic Review Urine Culture Comments Nasal Screen MRSA (PCR) Not detected Urine Opiates Screen Ur Barbiturates Screen Ur Amphetamines Screen U Benzodiazepines Scrn Urine Cocaine Screen U Cannabinoids Screen 04/01/18 04/01/18 03:53 03:53 WBC 17.0 H RBC 4.49 L Hgb 13.6 D Hct 42.0 MCV 93.6 MCH 30.4 MCHC 32.5 RDW 14.3 Plt Count 248 MPV 7.1 Neut % (Auto) 88.0 H Lymph % (Auto) 4.4 L Spencer % (Auto) 7.5 Eos % (Auto) 0.0 Baso % (Auto) 0.1 Neut # (Auto) 14.9 H Lymph # (Auto) 0.8 L Spencer # (Auto) 1.3 H Eos # (Auto) 0.0 Baso # (Auto) 0.0 WBC Differential . Differential Comment Auto diff final PT INR APTT Puncture Site Patient Temperature O2 Saturation ABG pH ABG pCO2 ABG pO2 ABG HCO3 ABG O2 Content ABG Base Excess ABG Methemoglobin David Test Hemoglobin Carboxyhemoglobin O2 Delivery Device Vent Setting Inspired O2 Critical Value Sodium 137 Potassium 4.0 Chloride 100 D Carbon Dioxide 28.4 Anion Gap 9 BUN 23 H Creatinine 0.91 Estimated GFR 83 L POC Glucose Random Glucose 83 Lactic Acid Calcium 8.3 L Magnesium 1.9 Total Bilirubin 0.9 AST 35 ALT 65 Alkaline Phosphatase 52 Ammonia Total Creatine Kinase CK-MB (CK-2) Troponin I 0.05 B-Natriuretic Peptide Total Protein 5.5 L D Albumin 3.0 L D Vitamin B12 Folate TSH Free T4 Urine Color Urine Clarity Urine pH Ur Specific [place] Urine Protein Urine Glucose (UA) Urine Ketones Urine Occult Blood Urine Nitrate Urine Bilirubin Urine Urobilinogen Ur Leukocyte Esterase Urine RBC Urine WBC Hyaline Casts Micro UA Comment Ur Microscopic Review Urine Culture Comments Nasal Screen MRSA (PCR) Urine Opiates Screen Ur Barbiturates Screen Ur Amphetamines Screen U Benzodiazepines Scrn Urine Cocaine Screen U Cannabinoids Screen Microbiology 03/31/18 19:04 Aerobic Blood Culture - Preliminary Blood - Peripheral No growth in 1 day Anaerobic Blood Culture - Preliminary No growth in 1 day 03/31/18 19:09 Aerobic Blood Culture - Preliminary Blood - Peripheral No growth in 1 day Anaerobic Blood Culture - Preliminary No growth in 1 day 04/01/18 06:00 Gram Stain - Final Sputum - Endotracheal 04/01/18 06:00 Influenza Types A,B Antigen - Final Nasal Wash Negative for FLU A and B antigen Infection due to influenza A or B cannot be ruled out since the antigen present in the sample may be below the detection limit of the test. Review/Management - Review/Management Plan: Encephalopathy Likely secondary to respiratory failre, hypoxia, metabolic etiology Respiratory failure - Lactic acidosis - Hyperammonemia - Leukocytosis - Neuro checks Q1h -MRI brain and head CT scan was unremarkable for an acute intracranial abnormality - Will reassess after patient is off sedation. - I met with family members and discussed the current neurologic status - There is no indication nowak AEDs. -DVT prophylaxis - GI prophylaxis - Neurology will follow up.
--- NOTE | 2018-04-01 12:19 | P.CONID ---
History of Present Illness Service: ID Consult date: 04/01/18 Requesting Physician: Bautista Rucker Reason for Consult: sepsis Primary Care Provider: Rex Longoria MD History of Present Illness: pt sedated int;d on mech vent'n unable to provide history This 67-year-old came into the emergency room today with his and daughter. On 02/13/2018, he had a microdiscectomy, C5-C6, by Dr. Dickey. I dw his . Pt never smoked or has pulmonary issues untill after surgery Apparently over 6 weeks pt has worsening difficulty breathing ALso family noted garbles speech , but deny difficuties swallowing They took him to ER yday He rapidly dteriorated and got intubated placed on vent He has striking hypercapnia on presentation with pCO2 of 148 hypoxia not that prominent however ABG improved on vent Not much secretions, Gstain purulent and sugg of staph Fever 100-101F He was started on cefepime, vancomycin WBC went up fever resolved MR neck with some ?edema CTA chest - No confluent infiltrate or pulmonary embolus. Chest X-Ray with Hypoinflation with persistent left basilar atelectasis. Cervical Spine MRI 03/31/18 Status post fusion at the C5-C6 level, fluid in the hypopharynx, laryngeal pharynx, and upper trachea around the ET tube and above the tracheal ET tube cuff and some mild soft tissue swelling in the prevertebral region best seen on the sagittal images. Review of Systems unobtainable due to endotracheal tube, unobtainable due to mental status PMFSH - History History Provided By: Family Member - Medical History Medical History: Medical History (Last Reviewed 04/01/18 @ 12:39 by Lisseth Martins MD) GERD (gastroesophageal reflux disease) High cholesterol Raspy voice Thyroid disease - Surgical History Surgical History: Surgical History (Last Reviewed 04/01/18 @ 12:39 by Lisseth Martins MD) H/O microdiscectomy H/O inguinal hernia repair Status post bilateral LASIK surgery - Family History Family History: Family History (Last Updated 04/01/18 @ 12:39 by Lisseth Martins MD) Other Family history non-contributory - Social History I have reviewed the patient's Social History: Yes - Tobacco History Second Hand Smoke Exposure: No Tobacco Use In Past 30 Days: No Smoking Status: Never smoker Tobacco Type: Cigarettes - Alcohol History How Often Do You Have a Drink Containing Alcohol: Monthly or less - Substance Use History Substance History: No History of Abuse - Travel History Recent Travel in the [place] Within the Last 8 Weeks: No Recent Travel Out of the Country Within the Last 8 Weeks: No - Immunization History Tetanus Immunization: <5 Years Hx Influenza Vaccine This Season: Yes Medications and Allergies Active Medications: Active Medications Acetaminophen (Tylenol) 650 mg PO Q4H PRN PRN Reason: Temp > 100.4 Last Admin: 03/31/18 22:19 Dose: 650 mg Al Hydroxide/Mg Hydroxide (Milk Of Magnjacque Liq) 30 ml PO Q12H PRN PRN Reason: Mild Constipation Albuterol (Duoneb Neb (Prn)) 1 ampul NEB Q4HR NEB PRN PRN Reason: SHORTNESS OF BREATH Albuterol (Duoneb Neb (Je)) 1 ampul NEB Q6HR NEB [facility] Last Admin: 04/01/18 07:54 Dose: 1 ampul Aspirin (Ecotrin) 81 mg PO DAILY [facility] Last Admin: 04/01/18 08:15 Dose: 81 mg Chlorhexidine Gluconate (Peridex 0.12% Oral Kit) 15 ml OROPHARYNG BID@0800, 2000 [facility] Last Admin: 04/01/18 10:58 Dose: 15 ml Chlorhexidine Gluconate (Chlorhexidine 2% Cloth) 3 pack TOPICAL DAILY@0400 [facility] Stop: 04/06/18 03:59 Last Admin: 04/01/18 04:47 Dose: 3 pack Chlorhexidine Gluconate (Chlorhexidine 2% Cloth) 3 pack TOPICAL DAILY@0400 PRN PRN Reason: Extra cloth needed Stop: 04/06/18 03:59 Enoxaparin Sodium (Lovenox Inj) 30 mg SQ Q24H [facility] Famotidine (Pepcid) 20 mg PO BID [facility] Last Admin: 04/01/18 08:15 Dose: 20 mg Famotidine (Pepcid Pf Inj) 20 mg IV.PUSH Q12HR [facility] Last Admin: 04/01/18 10:52 Dose: Not Given Potassium Chloride/Sodium Chloride (Potassium Chlor 20 Meq/Nacl 0.45% Inj) 1, 000 mls @ 84 mls/hr IV.CONT .[id number] [facility] Last Admin: 04/01/18 03:50 Dose: Not Given Sodium Chloride (Ns Inj) 1,000 mls @ 75 mls/hr IV.CONT .[id number] [facility] Last Admin: 04/01/18 07:48 Dose: 75 mls/hr Fentanyl (Fentanyl 10 Mcg/Ml Premix Drip) 2,500 mcg in 250 mls @ 5 mls/hr IV.SIG TITRATE PRN; Protocol PRN Reason: Per Protocol Last Admin: 03/31/18 21:44 Dose: 50 mcg/hr, 5 mls/hr Midazolam HCl (Versed Inj) 100 mg in 100 mls @ 2 mls/hr IV.CONT TITRATE PRN; Protocol PRN Reason: See protocol Last Admin: 03/31/18 21:44 Dose: 2 mg/hr, 2 mls/hr Norepinephrine Bitartrate (Levophed-Dextrose 4 Mg/250 Ml Drip) 4 mg in 250 mls @ 7.5 mls/hr IV.SIG TITRATE PRN; Protocol PRN Reason: Per Protocol Last Admin: 04/01/18 08:15 Dose: 3 mcg/min, 11.25 mls/hr Cefepime HCl 2,000 mg/ Sodium (Chloride) 100 mls @ 200 mls/hr IV.SIG Q8H [facility] Last Infusion: 04/01/18 08:45 Dose: Infused Vancomycin HCl 1,750 mg/ (Sodium Chloride) 517.5 mls @ 250 mls/hr IV.SIG Q12H [facility] Last Admin: 04/01/18 10:57 Dose: 250 mls/hr Levothyroxine Sodium (Synthroid) 125 mcg PO DAILY@0600 [facility] Last Admin: 04/01/18 06:48 Dose: 125 mcg Miscellaneous Information ([facility] Ordered Lab Info) 0 each OTHER ONCE ONE Stop: 04/03/18 09:46 Miscellaneous Medication () 1 each OROPHARYNG 0000,0400,1200,1600 [facility] Last Admin: 04/01/18 04:47 Dose: 1 each Ondansetron HCl (Zofran Inj) 4 mg IV.PUSH Q6H PRN PRN Reason: NAUSEA OR VOMITING Pharmacy Profile Note (Vancomycin Consult Pharmacy) 1 each OTHER UNSCH PRN PRN Reason: Pharmacy to dose Pravastatin Sodium (Pravachol) 40 mg PO HS [facility] Last Admin: 03/31/18 21:43 Dose: Not Given Senna/Docusate Sodium (Celine-Colace) 1 tab PO BID [facility] Last Admin: 04/01/18 08:15 Dose: 1 tab Sodium Chloride (Ns Flush) 2 ml IV.FLUSH BID [facility] Last Admin: 04/01/18 10:58 Dose: 2 ml Sodium Chloride (Ns Flush) 2 ml IV.FLUSH PRN PRN PRN Reason: FLUSH AFTER USING IV ACCESS Terbutaline Sulfate (Brethine Inj) 1 mg SQ UNSCH PRN PRN Reason: For Extravasation Allergies Allergy/AdvReac Type Severity Reaction Status Date / Time Sulfa (Sulfonamide Allergy Severe Nausea Verified 02/15/18 05:02 Antibiotics) Home Medications Medication Instructions Recorded Confirmed Type aspirin 81 mg PO DAILY 02/08/18 03/31/18 History levothyroxine 125 mcg PO DAILY 02/08/18 03/31/18 History pantoprazole [Protonix] 40 mg PO DAILY 02/08/18 03/31/18 History pravastatin 40 mg PO HS 02/08/18 03/31/18 History amlodipine [Norvasc] 10 mg PO DAILY 03/31/18 03/31/18 History ranitidine HCl [Zantac] 150 mg PO DAILY 03/31/18 03/31/18 History Exam Vital signs: Vital Signs 03/31/18 12:33 03/31/18 14:04 03/31/18 14:58 Temperature 97.6 F Pulse Rate 101 H 106 H Respiratory Rate 26 H 32 H Blood Pressure 185/88 H 173/84 H Pulse Oximetry 93 L 95 95 03/31/18 16:04 03/31/18 16:36 03/31/18 16:38 Temperature Pulse Rate 101 H 104 H Respiratory Rate 16 16 Blood Pressure 101/53 L 100/56 L 96/53 L Pulse Oximetry 100 100 03/31/18 16:48 03/31/18 17:22 03/31/18 17:33 Temperature Pulse Rate 97 H 102 H 110 H Respiratory Rate 16 16 16 Blood Pressure 109/63 109/64 103/56 L Pulse Oximetry 100 100 03/31/18 17:36 03/31/18 17:52 03/31/18 18:18 Temperature 101.1 F H Pulse Rate 108 H 100 H Respiratory Rate 16 16 Blood Pressure 91/58 L 107/71 91/55 L Pulse Oximetry 100 100 03/31/18 18:20 03/31/18 18:21 03/31/18 18:25 Temperature Pulse Rate 105 H 103 H Respiratory Rate 31 H 20 24 Blood Pressure 157/95 H Pulse Oximetry 95 98 90 L 03/31/18 18:37 03/31/18 18:49 03/31/18 18:53 Temperature Pulse Rate 90 98 H Respiratory Rate 20 20 Blood Pressure 44/28 L 114/77 Pulse Oximetry 87 L 90 L 100 03/31/18 19:00 03/31/18 19:02 03/31/18 19:25 Temperature Pulse Rate 114 H 118 H 112 H Respiratory Rate 20 20 28 H Blood Pressure 144/80 H 111/63 Pulse Oximetry 98 98 100 03/31/18 19:31 03/31/18 19:33 03/31/18 19:46 Temperature Pulse Rate 113 H 128 H 110 H Respiratory Rate 20 28 H 20 Blood Pressure 93/75 L 92/62 L 57/42 L Pulse Oximetry 100 97 03/31/18 19:58 03/31/18 20:00 03/31/18 20:01 Temperature 100.9 F H 101.1 F H 101.1 F H Pulse Rate 99 H 96 H 99 H Respiratory Rate 20 20 20 Blood Pressure 60/40 L 60/40 L Pulse Oximetry 94 L 93 L 94 L 03/31/18 20:04 03/31/18 20:07 03/31/18 20:10 Temperature 101.5 F H 101.5 F H 101.5 F H Pulse Rate 96 H 101 H 102 H Respiratory Rate 20 20 20 Blood Pressure 63/43 L 91/51 L 89/54 L Pulse Oximetry 94 L 98 100 03/31/18 20:13 03/31/18 20:27 03/31/18 20:32 Temperature 101.5 F H Pulse Rate 112 H 109 H Respiratory Rate 20 20 20 Blood Pressure 92/57 L Pulse Oximetry 100 100 03/31/18 21:13 03/31/18 21:19 03/31/18 21:22 Temperature 101.3 F H 101.5 F H 101.5 F H Pulse Rate 113 H 112 H 112 H Respiratory Rate 21 21 20 Blood Pressure 112/56 L 105/59 L Pulse Oximetry 100 100 100 03/31/18 21:25 03/31/18 21:28 03/31/18 21:31 Temperature 101.5 F H 101.5 F H 101.5 F H Pulse Rate 112 H 111 H 107 H Respiratory Rate 20 20 20 Blood Pressure 102/57 L 106/56 L 98/58 L Pulse Oximetry 100 100 100 03/31/18 21:34 03/31/18 21:37 03/31/18 21:40 Temperature 101.5 F H 101.5 F H 101.7 F H Pulse Rate 109 H 112 H 111 H Respiratory Rate 20 20 20 Blood Pressure 101/58 L 97/53 L Pulse Oximetry 100 100 100 03/31/18 21:43 03/31/18 21:46 03/31/18 21:49 Temperature 101.7 F H 101.7 F H 101.7 F H Pulse Rate 110 H 108 H 107 H Respiratory Rate 20 20 20 Blood Pressure 91/55 L 79/53 L 88/53 L Pulse Oximetry 100 100 100 03/31/18 21:52 03/31/18 21:55 03/31/18 21:58 Temperature 101.7 F H 101.7 F H 101.7 F H Pulse Rate 104 H 102 H 97 H Respiratory Rate 20 20 20 Blood Pressure 81/55 L 82/54 L 86/51 L Pulse Oximetry 100 100 100 03/31/18 22:00 03/31/18 22:01 03/31/18 22:04 Temperature 101.7 F H 101.7 F H 101.7 F H Pulse Rate 101 H 99 H 102 H Respiratory Rate 20 20 20 Blood Pressure 89/54 L 109/59 L Pulse Oximetry 100 100 100 03/31/18 22:07 03/31/18 22:10 03/31/18 22:13 Temperature 101.7 F H 101.7 F H 101.5 F H Pulse Rate 102 H 104 H Respiratory Rate 20 24 20 Blood Pressure 105/61 111/60 113/60 Pulse Oximetry 100 100 100 03/31/18 22:16 03/31/18 22:19 03/31/18 22:22 Temperature 101.5 F H 101.5 F H 101.3 F H Pulse Rate 106 H 106 H 102 H Respiratory Rate 20 20 20 Blood Pressure 115/67 116/67 118/71 Pulse Oximetry 100 100 100 03/31/18 22:25 03/31/18 22:27 03/31/18 22:28 Temperature 101.3 F H 101.3 F H 101.3 F H Pulse Rate 103 H 104 H 104 H Respiratory Rate 20 20 20 Blood Pressure 117/77 127/71 Pulse Oximetry 100 100 100 03/31/18 22:31 03/31/18 22:34 03/31/18 22:41 Temperature 101.1 F H 101.1 F H 100.9 F H Pulse Rate 101 H 102 H 102 H Respiratory Rate 20 20 20 Blood Pressure 130/70 132/72 137/75 Pulse Oximetry 100 100 100 03/31/18 22:51 03/31/18 23:00 03/31/18 23:01 Temperature 100.9 F H 100.9 F H 100.9 F H Pulse Rate 105 H 108 H 100 H Respiratory Rate 20 20 20 Blood Pressure 139/97 H 128/72 Pulse Oximetry 100 100 100 03/31/18 23:11 03/31/18 23:21 03/31/18 23:31 Temperature 100.8 F H 100.6 F H Pulse Rate 103 H 101 H 98 H Respiratory Rate 20 20 20 Blood Pressure 121/70 113/66 107/60 Pulse Oximetry 100 100 100 03/31/18 23:51 04/01/18 00:00 04/01/18 00:01 Temperature 100.4 F H 100.4 F H Pulse Rate 92 H 98 H 100 H Respiratory Rate 20 22 20 Blood Pressure 110/59 L 110/77 Pulse Oximetry 100 100 100 04/01/18 00:11 04/01/18 00:21 04/01/18 00:31 Temperature 100.4 F H 100.4 F H 100.4 F H Pulse Rate 97 H 100 H 97 H Respiratory Rate 20 20 20 Blood Pressure 106/71 105/70 88/58 L Pulse Oximetry 100 100 100 04/01/18 00:41 04/01/18 00:47 04/01/18 00:51 Temperature 100.6 F H 100.6 F H 100.6 F H Pulse Rate 89 89 89 Respiratory Rate 20 20 20 Blood Pressure 83/56 L 93/61 L 94/60 L Pulse Oximetry 100 100 100 04/01/18 01:00 04/01/18 01:01 04/01/18 01:11 Temperature 100.6 F H 100.6 F H 100.6 F H Pulse Rate 87 89 88 Respiratory Rate 20 20 20 Blood Pressure 97/57 L 91/60 L Pulse Oximetry 100 100 100 04/01/18 01:16 04/01/18 01:21 04/01/18 01:31 Temperature 100.6 F H 100.6 F H Pulse Rate 88 90 Respiratory Rate 20 20 Blood Pressure 96/61 L 94/58 L Pulse Oximetry 100 100 100 04/01/18 01:41 04/01/18 01:51 04/01/18 02:00 Temperature 100.6 F H 100.6 F H 100.4 F H Pulse Rate 96 H 97 H 99 H Respiratory Rate 20 20 20 Blood Pressure 103/58 L 119/73 Pulse Oximetry 99 100 98 04/01/18 02:01 04/01/18 02:11 04/01/18 02:21 Temperature 100.4 F H 100.2 F H 100.2 F H Pulse Rate 99 H 101 H 98 H Respiratory Rate 20 20 20 Blood Pressure 128/78 117/80 108/66 Pulse Oximetry 100 100 100 04/01/18 02:31 04/01/18 02:41 04/01/18 02:45 Temperature 100.2 F H 100.2 F H 100.4 F H Pulse Rate 92 H 88 88 Respiratory Rate 20 20 20 Blood Pressure 92/55 L 94/51 L Pulse Oximetry 100 100 100 04/01/18 02:51 04/01/18 03:00 04/01/18 03:01 Temperature 100.4 F H 100.4 F H 100.4 F H Pulse Rate 84 91 H 85 Respiratory Rate 20 20 20 Blood Pressure 121/64 111/57 L Pulse Oximetry 100 100 100 04/01/18 03:11 04/01/18 03:21 04/01/18 03:31 Temperature 100.2 F H 100.2 F H 100.0 F H Pulse Rate 84 85 87 Respiratory Rate 20 20 20 Blood Pressure 114/64 117/67 118/68 Pulse Oximetry 100 100 100 04/01/18 03:41 04/01/18 03:51 04/01/18 03:58 Temperature 100.0 F H 99.7 F H Pulse Rate 89 88 Respiratory Rate 20 20 20 Blood Pressure 124/76 125/75 Pulse Oximetry 100 100 100 04/01/18 04:00 04/01/18 04:04 04/01/18 04:11 Temperature 99.3 F Pulse Rate 91 H 100 H 95 H Respiratory Rate 22 22 20 Blood Pressure 114/69 120/66 Pulse Oximetry 100 85 L 100 04/01/18 04:21 04/01/18 04:31 04/01/18 04:41 Temperature Pulse Rate 93 H 107 H 98 H Respiratory Rate 20 22 20 Blood Pressure 128/69 105/66 119/69 Pulse Oximetry 100 100 100 04/01/18 04:51 04/01/18 05:00 04/01/18 05:01 Temperature Pulse Rate 101 H 98 H 97 H Respiratory Rate 24 20 20 Blood Pressure 112/61 115/66 Pulse Oximetry 99 99 100 04/01/18 05:11 04/01/18 05:21 04/01/18 05:31 Temperature Pulse Rate 97 H 98 H 95 H Respiratory Rate 20 20 20 Blood Pressure 112/63 111/60 103/56 L Pulse Oximetry 100 100 100 04/01/18 05:41 04/01/18 05:51 04/01/18 06:00 Temperature Pulse Rate 92 H 90 91 H Respiratory Rate 20 20 20 Blood Pressure 106/56 L 107/57 L Pulse Oximetry 100 100 98 04/01/18 06:01 04/01/18 06:11 04/01/18 06:20 Temperature Pulse Rate 93 H 88 97 H Respiratory Rate 20 20 20 Blood Pressure 92/49 L 107/63 Pulse Oximetry 98 100 99 04/01/18 06:21 04/01/18 06:31 04/01/18 06:41 Temperature Pulse Rate 97 H 96 H 93 H Respiratory Rate 21 20 20 Blood Pressure 101/58 L 111/63 113/65 Pulse Oximetry 99 100 100 04/01/18 06:51 04/01/18 07:00 04/01/18 07:01 Temperature Pulse Rate 95 H 93 H 94 H Respiratory Rate 20 20 20 Blood Pressure 112/65 110/60 Pulse Oximetry 100 100 100 04/01/18 07:11 04/01/18 07:21 04/01/18 07:31 Temperature Pulse Rate 92 H 89 87 Respiratory Rate 20 20 20 Blood Pressure 111/61 107/55 L 104/57 L Pulse Oximetry 100 100 100 04/01/18 07:41 04/01/18 07:51 04/01/18 07:55 Temperature Pulse Rate 86 92 H 95 H Respiratory Rate 20 20 20 Blood Pressure 104/56 L 120/69 Pulse Oximetry 100 100 100 04/01/18 08:00 04/01/18 08:01 04/01/18 08:11 Temperature 99.4 F Pulse Rate 93 H 95 H 96 H Respiratory Rate 20 23 20 Blood Pressure 120/68 125/72 Pulse Oximetry 100 100 100 04/01/18 08:21 04/01/18 08:31 04/01/18 08:41 Temperature Pulse Rate 96 H 98 H 98 H Respiratory Rate 20 20 20 Blood Pressure 124/71 111/60 107/56 L Pulse Oximetry 100 100 100 04/01/18 08:50 04/01/18 08:51 04/01/18 09:00 Temperature 98.4 F 98.6 F Pulse Rate 97 H 96 H 95 H Respiratory Rate 20 20 20 Blood Pressure 98/53 L Pulse Oximetry 100 100 100 04/01/18 09:01 04/01/18 09:11 04/01/18 09:21 Temperature 98.6 F Pulse Rate 93 H 91 H 89 Respiratory Rate 20 20 20 Blood Pressure 93/52 L 93/52 L 94/54 L Pulse Oximetry 100 100 100 04/01/18 09:31 04/01/18 09:41 04/01/18 09:51 Temperature Pulse Rate 88 90 87 Respiratory Rate 20 26 H Blood Pressure 97/56 L 97/59 L 116/58 L Pulse Oximetry 100 100 100 04/01/18 10:00 04/01/18 10:01 04/01/18 10:11 Temperature Pulse Rate 87 86 86 Respiratory Rate 20 20 20 Blood Pressure 116/58 L 116/60 Pulse Oximetry 100 100 100 04/01/18 10:21 04/01/18 10:31 04/01/18 10:41 Temperature Pulse Rate 87 86 85 Respiratory Rate 20 20 20 Blood Pressure 113/59 L 110/61 114/65 Pulse Oximetry 100 100 100 04/01/18 10:51 04/01/18 11:00 04/01/18 11:01 Temperature 98.4 F Pulse Rate 84 95 H 94 H Respiratory Rate 20 20 20 Blood Pressure 114/68 128/59 L Pulse Oximetry 100 99 99 04/01/18 11:08 04/01/18 11:11 04/01/18 11:15 Temperature Pulse Rate 95 H 96 H Respiratory Rate 20 20 20 Blood Pressure 132/65 Pulse Oximetry 99 100 100 04/01/18 11:21 04/01/18 11:31 04/01/18 11:41 Temperature Pulse Rate 94 H 95 H 93 H Respiratory Rate 22 20 20 Blood Pressure 134/69 124/70 125/69 Pulse Oximetry 100 100 100 04/01/18 11:51 04/01/18 12:00 04/01/18 12:01 Temperature 99.6 F Pulse Rate 95 H 96 H Respiratory Rate 20 20 20 Blood Pressure 132/73 115/56 L Pulse Oximetry 99 100 100 Intake & Output 03/31/18 04/01/18 04/01/18 18:59 06:59 18:59 Intake Total 1999 / 1999 4000 / 4000 350 / 350 Output Total 1000 / 1000 Balance 1999 / 1999 3000 / 3000 350 / 350 Weight 78.925 kg 85 kg Intake: IV 1999 / 1999 4000 / 4000 350 / 350 NS Inj 1,000 ML @ 75 mls/hr IV. 1000 / 1000 CONT .[id number] [facility] Rx#:[id number] Maxipime Inj 2,000 MG In NS Inj 100 / 100 100 ML @ 200 mls/hr IV.SIG Q8H [facility] Rx#:[id number] Levophed-Dextrose 4 mg/250 ml 250 / 250 Drip 4 mg In 250 ml @ 2 MCG/MIN 7.5 mls/hr IV.SIG TITRATE PRN Rx#:[id number] NS Inj 1,000 ML @ 3000 mls/hr 2000 / 2000 3000 / 3000 IV.SIG Q20M [facility] Rx#:[id number] Output: Urine Amount (Catheter) 1000 / 1000 Indwelling Urethral Catheter 1000 / 1000 Other: Weight On Admission 85.9 kg - Constitutional no acute distress, average body habitus - Routine HEENT Exam Head: Present: normocephalic, atraumatic Eye: Present: EOMI, PERRL ENT: Present: mucous membranes moist, oropharynx clear - Routine Neck Exam Present: supple. Absent: JVD, lymphadenopathy - Routine Respiratory Exam Present: patient mechanically ventilated, CTA bilaterally - Routine Cardiovascular Exam Present: RRR, S1, S2. Absent: murmur, gallop, rubs - Routine Abdominal Exam Present: soft, normoactive bowel sounds. Absent: tenderness, distended, organomegaly, mass - Routine Extremities Exam Present: pulses intact. Absent: cyanosis, clubbing, edema - Routine Skin Exam Present: intact, warm. Absent: cyanosis, erythema, rash - Routine Neurological Exam sedated, unresponsieve - Routine Psychiatric Exam Present: unable to assess Results - Labs CBC & Chem 7: 04/01/18 03:53 04/01/18 03:53 Labs: Laboratory Results - last 24 hr 03/31/18 03/31/18 03/31/18 12:30 12:30 12:30 WBC 12.8 H RBC 4.96 Hgb 15.7 Hct 46.5 MCV 93.9 MCH 31.6 MCHC 33.7 RDW 13.7 Plt Count 331 MPV 7.0 Neut % (Auto) 84.7 H Lymph % (Auto) 4.2 L Wells % (Auto) 10.8 H Eos % (Auto) 0.1 Baso % (Auto) 0.2 Neut # (Auto) 10.8 H Lymph # (Auto) 0.5 L Wells # (Auto) 1.4 H Eos # (Auto) 0.0 Baso # (Auto) 0.0 WBC Differential . Differential Comment Auto diff final PT 10.2 INR 1.0 APTT 27.6 Puncture Site Patient Temperature O2 Saturation ABG pH ABG pCO2 ABG pO2 ABG HCO3 ABG O2 Content ABG Base Excess ABG Methemoglobin David Test Hemoglobin Carboxyhemoglobin O2 Delivery Device Vent Setting Inspired O2 Critical Value Sodium 129 L Potassium 3.9 Chloride 89 L Carbon Dioxide 37.2 H Anion Gap 3 L BUN 18 Creatinine 0.76 Estimated GFR Greater than 89 POC Glucose Random Glucose 138 H Lactic Acid Calcium 9.0 Magnesium Total Bilirubin 0.6 AST 33 ALT 72 Alkaline Phosphatase 72 Ammonia Total Creatine Kinase 101 CK-MB (CK-2) 9.7 H Troponin I Less than 0.02 L B-Natriuretic Peptide Total Protein 7.7 Albumin 3.9 Vitamin B12 578 Folate Greater than 20.0 H TSH 0.754 Free T4 1.12 Urine Color Urine Clarity Urine pH Ur Specific [place] Urine Protein Urine Glucose (UA) Urine Ketones Urine Occult Blood Urine Nitrate Urine Bilirubin Urine Urobilinogen Ur Leukocyte Esterase Urine RBC Urine WBC Hyaline Casts Micro UA Comment Ur Microscopic Review Urine Culture Comments Nasal Screen MRSA (PCR) Urine Opiates Screen Ur Barbiturates Screen Ur Amphetamines Screen U Benzodiazepines Scrn Urine Cocaine Screen U Cannabinoids Screen 03/31/18 03/31/18 03/31/18 12:30 12:30 12:30 WBC RBC Hgb Hct MCV MCH MCHC RDW Plt Count MPV Neut % (Auto) Lymph % (Auto) Wells % (Auto) Eos % (Auto) Baso % (Auto) Neut # (Auto) Lymph # (Auto) Wells # (Auto) Eos # (Auto) Baso # (Auto) WBC Differential Differential Comment PT INR APTT Puncture Site Patient Temperature O2 Saturation ABG pH ABG pCO2 ABG pO2 ABG HCO3 ABG O2 Content ABG Base Excess ABG Methemoglobin David Test Hemoglobin Carboxyhemoglobin O2 Delivery Device Vent Setting Inspired O2 Critical Value Sodium Potassium Chloride Carbon Dioxide Anion Gap BUN Creatinine Estimated GFR POC Glucose Random Glucose Lactic Acid Calcium Magnesium Total Bilirubin AST ALT Alkaline Phosphatase Ammonia Total Creatine Kinase Cancelled CK-MB (CK-2) Troponin I Cancelled B-Natriuretic Peptide 26 Total Protein Albumin Vitamin B12 Cancelled Folate Cancelled TSH Cancelled Free T4 Cancelled Urine Color Urine Clarity Urine pH Ur Specific [place] Urine Protein Urine Glucose (UA) Urine Ketones Urine Occult Blood Urine Nitrate Urine Bilirubin Urine Urobilinogen Ur Leukocyte Esterase Urine RBC Urine WBC Hyaline Casts Micro UA Comment Ur Microscopic Review Urine Culture Comments Nasal Screen MRSA (PCR) Urine Opiates Screen Ur Barbiturates Screen Ur Amphetamines Screen U Benzodiazepines Scrn Urine Cocaine Screen U Cannabinoids Screen 03/31/18 03/31/18 03/31/18 12:54 14:15 14:55 WBC RBC Hgb Hct MCV MCH MCHC RDW Plt Count MPV Neut % (Auto) Lymph % (Auto) Wells % (Auto) Eos % (Auto) Baso % (Auto) Neut # (Auto) Lymph # (Auto) Wells # (Auto) Eos # (Auto) Baso # (Auto) WBC Differential Differential Comment PT INR APTT Puncture Site Patient Temperature O2 Saturation ABG pH ABG pCO2 ABG pO2 ABG HCO3 ABG O2 Content ABG Base Excess ABG Methemoglobin David Test Hemoglobin Carboxyhemoglobin O2 Delivery Device Vent Setting Inspired O2 Critical Value Sodium Potassium Chloride Carbon Dioxide Anion Gap BUN Creatinine Estimated GFR POC Glucose 119 H Random Glucose Lactic Acid Calcium Magnesium Total Bilirubin AST ALT Alkaline Phosphatase Ammonia Total Creatine Kinase CK-MB (CK-2) Troponin I B-Natriuretic Peptide Total Protein Albumin Vitamin B12 Folate TSH Free T4 Urine Color Yellow Urine Clarity Clear Urine pH 6.0 Ur Specific [place] 1.013 Urine Protein 30 H Urine Glucose (UA) Negative Urine Ketones Negative Urine Occult Blood Moderate H Urine Nitrate Negative Urine Bilirubin Negative Urine Urobilinogen Less than 2 Ur Leukocyte Esterase Negative Urine RBC 27 H Urine WBC 1 Hyaline Casts 8 Micro UA Comment Culture not ind Ur Microscopic Review Not Reportable Urine Culture Comments Culture not ind Nasal Screen MRSA (PCR) Urine Opiates Screen Neg Ur Barbiturates Screen Neg Ur Amphetamines Screen Neg U Benzodiazepines Scrn Neg Urine Cocaine Screen Neg U Cannabinoids Screen Neg 03/31/18 03/31/18 03/31/18 15:50 16:03 18:32 WBC RBC Hgb Hct MCV MCH MCHC RDW Plt Count MPV Neut % (Auto) Lymph % (Auto) Wells % (Auto) Eos % (Auto) Baso % (Auto) Neut # (Auto) Lymph # (Auto) Wells # (Auto) Eos # (Auto) Baso # (Auto) WBC Differential Differential Comment PT INR APTT Puncture Site Right radial Right radial Patient Temperature 98.6 98.6 O2 Saturation 98 89 L* ABG pH 7.08 L* 7.39 ABG pCO2 148 H* 52 H* ABG pO2 391 H 56 L* ABG HCO3 41 H 31 H ABG O2 Content 22.4 H 16.9 ABG Base Excess 11.2 H 6.4 H ABG Methemoglobin 0.9 1.3 David Test Y Present Hemoglobin 15.6 13.6 Carboxyhemoglobin 0.5 1.1 O2 Delivery Device Nrb Ventilator Vent Setting Prvc/ac Inspired O2 100 70 Critical Value Yes Yes Sodium Potassium Chloride Carbon Dioxide Anion Gap BUN Creatinine Estimated GFR POC Glucose 119 H Random Glucose Lactic Acid Calcium Magnesium Total Bilirubin AST ALT Alkaline Phosphatase Ammonia Total Creatine Kinase CK-MB (CK-2) Troponin I B-Natriuretic Peptide Total Protein Albumin Vitamin B12 Folate TSH Free T4 Urine Color Urine Clarity Urine pH Ur Specific [place] Urine Protein Urine Glucose (UA) Urine Ketones Urine Occult Blood Urine Nitrate Urine Bilirubin Urine Urobilinogen Ur Leukocyte Esterase Urine RBC Urine WBC Hyaline Casts Micro UA Comment Ur Microscopic Review Urine Culture Comments Nasal Screen MRSA (PCR) Urine Opiates Screen Ur Barbiturates Screen Ur Amphetamines Screen U Benzodiazepines Scrn Urine Cocaine Screen U Cannabinoids Screen 03/31/18 03/31/18 03/31/18 19:09 19:09 19:09 WBC RBC Hgb Hct MCV MCH MCHC RDW Plt Count MPV Neut % (Auto) Lymph % (Auto) Wells % (Auto) Eos % (Auto) Baso % (Auto) Neut # (Auto) Lymph # (Auto) Wells # (Auto) Eos # (Auto) Baso # (Auto) WBC Differential Differential Comment PT INR APTT Puncture Site Patient Temperature O2 Saturation ABG pH ABG pCO2 ABG pO2 ABG HCO3 ABG O2 Content ABG Base Excess ABG Methemoglobin David Test Hemoglobin Carboxyhemoglobin O2 Delivery Device Vent Setting Inspired O2 Critical Value Sodium Potassium Chloride Carbon Dioxide Anion Gap BUN Creatinine Estimated GFR POC Glucose Random Glucose Lactic Acid 2.7 H Calcium Magnesium Total Bilirubin AST ALT Alkaline Phosphatase Ammonia 71 H Total Creatine Kinase CK-MB (CK-2) Troponin I 0.03 B-Natriuretic Peptide Total Protein Albumin Vitamin B12 Folate TSH Free T4 Urine Color Urine Clarity Urine pH Ur Specific [place] Urine Protein Urine Glucose (UA) Urine Ketones Urine Occult Blood Urine Nitrate Urine Bilirubin Urine Urobilinogen Ur Leukocyte Esterase Urine RBC Urine WBC Hyaline Casts Micro UA Comment Ur Microscopic Review Urine Culture Comments Nasal Screen MRSA (PCR) Urine Opiates Screen Ur Barbiturates Screen Ur Amphetamines Screen U Benzodiazepines Scrn Urine Cocaine Screen U Cannabinoids Screen 03/31/18 03/31/18 04/01/18 23:20 23:31 00:00 WBC RBC Hgb Hct MCV MCH MCHC RDW Plt Count MPV Neut % (Auto) Lymph % (Auto) Wells % (Auto) Eos % (Auto) Baso % (Auto) Neut # (Auto) Lymph # (Auto) Wells # (Auto) Eos # (Auto) Baso # (Auto) WBC Differential Differential Comment PT INR APTT Puncture Site Left radial Patient Temperature 98.6 O2 Saturation 98 ABG pH 7.48 H ABG pCO2 37 L ABG pO2 240 H ABG HCO3 27 H ABG O2 Content 17.5 ABG Base Excess 3.7 H ABG Methemoglobin 1.4 David Test Present Hemoglobin 12.4 Carboxyhemoglobin 0.8 O2 Delivery Device Ventilator Vent Setting Prvc/ac 20 vt 500 Inspired O2 80 Critical Value No Sodium Potassium Chloride Carbon Dioxide Anion Gap BUN Creatinine Estimated GFR POC Glucose Random Glucose Lactic Acid 2.4 H Calcium Magnesium Total Bilirubin AST ALT Alkaline Phosphatase Ammonia Total Creatine Kinase CK-MB (CK-2) Troponin I B-Natriuretic Peptide Total Protein Albumin Vitamin B12 Folate TSH Free T4 Urine Color Urine Clarity Urine pH Ur Specific [place] Urine Protein Urine Glucose (UA) Urine Ketones Urine Occult Blood Urine Nitrate Urine Bilirubin Urine Urobilinogen Ur Leukocyte Esterase Urine RBC Urine WBC Hyaline Casts Micro UA Comment Ur Microscopic Review Urine Culture Comments Nasal Screen MRSA (PCR) Not detected Urine Opiates Screen Ur Barbiturates Screen Ur Amphetamines Screen U Benzodiazepines Scrn Urine Cocaine Screen U Cannabinoids Screen 04/01/18 04/01/18 03:53 03:53 WBC 17.0 H RBC 4.49 L Hgb 13.6 D Hct 42.0 MCV 93.6 MCH 30.4 MCHC 32.5 RDW 14.3 Plt Count 248 MPV 7.1 Neut % (Auto) 88.0 H Lymph % (Auto) 4.4 L Wells % (Auto) 7.5 Eos % (Auto) 0.0 Baso % (Auto) 0.1 Neut # (Auto) 14.9 H Lymph # (Auto) 0.8 L Wells # (Auto) 1.3 H Eos # (Auto) 0.0 Baso # (Auto) 0.0 WBC Differential . Differential Comment Auto diff final PT INR APTT Puncture Site Patient Temperature O2 Saturation ABG pH ABG pCO2 ABG pO2 ABG HCO3 ABG O2 Content ABG Base Excess ABG Methemoglobin David Test Hemoglobin Carboxyhemoglobin O2 Delivery Device Vent Setting Inspired O2 Critical Value Sodium 137 Potassium 4.0 Chloride 100 D Carbon Dioxide 28.4 Anion Gap 9 BUN 23 H Creatinine 0.91 Estimated GFR 83 L POC Glucose Random Glucose 83 Lactic Acid Calcium 8.3 L Magnesium 1.9 Total Bilirubin 0.9 AST 35 ALT 65 Alkaline Phosphatase 52 Ammonia Total Creatine Kinase CK-MB (CK-2) Troponin I 0.05 B-Natriuretic Peptide Total Protein 5.5 L D Albumin 3.0 L D Vitamin B12 Folate TSH Free T4 Urine Color Urine Clarity Urine pH Ur Specific [place] Urine Protein Urine Glucose (UA) Urine Ketones Urine Occult Blood Urine Nitrate Urine Bilirubin Urine Urobilinogen Ur Leukocyte Esterase Urine RBC Urine WBC Hyaline Casts Micro UA Comment Ur Microscopic Review Urine Culture Comments Nasal Screen MRSA (PCR) Urine Opiates Screen Ur Barbiturates Screen Ur Amphetamines Screen U Benzodiazepines Scrn Urine Cocaine Screen U Cannabinoids Screen - Imaging Impressions Head MRI 03/31/18 00:00 CONCLUSION: Negative exam Chest X-Ray 03/31/18 12:15 CONCLUSION: 1. Hypoinflation with probable atelectatic changes above the left hemidiaphragm. 2. Otherwise, no acute cardiopulmonary process. Head CT 03/31/18 12:16 CONCLUSION: 1. Negative CT Head non contrast. . Chest CTA 03/31/18 14:39 CONCLUSION: 1. Bibasilar atelectatic changes, left greater than right. No confluent infiltrate. 2. No pulmonary embolus. 3. Atherosclerotic calcification of the coronary arteries. Chest X-Ray 03/31/18 16:11 CONCLUSION: 1. Hypoinflation with persistent left basilar atelectasis. 2. Endotracheal tube tip at the clavicular heads, above the duane. Cervical Spine MRI 03/31/18 16:17 CONCLUSION: 1. Status post fusion at the C5-C6 level. There is susceptibility artifact from the hardware. 2. A significant area of stenosis in the thecal sac is not seen. 3. Facet hypertrophy seen throughout with scattered areas of neural foraminal narrowing as described above. 4. The patient is intubated with fluid in the hypopharynx, laryngeal pharynx, and upper trachea around the ET tube and above the tracheal ET tube cuff. 5. The does appear to be some mild soft tissue swelling in the prevertebral region best seen on the sagittal images. Chest X-Ray 04/01/18 04:29 CONCLUSION: 1. Nasogastric tube and left subclavian central venous catheter now in place. 2. Mild bilateral lower lung zone atelectasis unchanged. No evidence of pneumothorax. Assessment and Plan - Plan C spine fusion Hypercapnia difficulty breathing developped after surgery Some mild PNA ? staph fever on presentation ?aspiration cont vanco will change cefepine to zosyn monitor closely pt's GFR case was dw pt 's , dgtr @ b/s dw Dr Garcia
[2018-04-01] MEDS: Piperacil/Tazo 3.375 GM Premix 3.375 GM/50 ML PIGGYBACK IV.SIG SCH ×2 (13:39→17:59)
[2018-04-01] MEDS: Enoxaparin Inj 30 MG/0.3 ML Syringe SQ SCH (13:45)
--- NOTE | 2018-04-01 13:56 | ECG ---
Date Performed: 03/31/2018 Time Performed: 15:54:35 PTAGE: 67 years EKG: Sinus rhythm WITH SINUS ARRHYTHMIA NORMAL ECG PREVIOUS TRACING 03/31/18 12,41: Since the previous tracing, no significant change noted DOCTOR: Johny Escobedo Interpretating Date/Time 04/01/2018 13:54:09
--- NOTE | 2018-04-01 14:11 | ECG ---
Date Performed: 03/31/2018 Time Performed: 12:41:26 PTAGE: 67 years EKG: Sinus rhythm NORMAL ECG PREVIOUS TRACING : 02/13/2018 17.59 DOCTOR: Johny Escobedo Interpretating Date/Time 04/01/2018 14:09:23
[2018-04-01] MEDS: Acetaminophen 325 MG Tablet PO PRN (15:53)
--- NOTE | 2018-04-01 17:18 | ECHRPT ---
Indication: CARDIOMYOPATHY CONCLUSIONS Very technically difficult study. Difficult to determine overall ejection fraction, probably in the 45% range. There was limited left ventricular wall motion assessment due to poor endocardial visualization. BP: / HR: Rhythm: Sinus MEASUREMENTS (Male / Female) Normal Values Technical Quality:Very technically difficult study 2D ECHO RV Internal Dim ED PLAX 2.3 cm DOPPLER AV Peak Velocity 121.0 cm/s AV Peak Gradient 5.9 mmHg LVOT Peak Velocity 91.8 cm/s LVOT Peak Gradient 3.4 mmHg Mitral E Point Velocity 42.0 cm/s Mitral A Point Velocity 53.8 cm/s Mitral E to A Ratio 0.8 TR Peak Velocity 164.0 cm/s TR Peak Gradient 10.8 mmHg Right Atrial Pressure 15.0 mmHg Pulmonary Artery Systolic Pressu 25.8 mmHg Right Ventricular Systolic Press 25.8 mmHg FINDINGS LEFT VENTRICLE The left ventricle is not well visualized. Difficult to determine overall ejection fraction, probably in the 45% range There was limited left ventricular wall motion assessment due to poor endocardial visualization. RIGHT VENTRICLE Grossly normal LEFT ATRIUM The left atrium was not well visualized. RIGHT ATRIUM The right atrium is not well visualized. ATRIAL SEPTUM No atrial level shunt is demonstrated by color flow Doppler interrogation. AORTA The aortic root and proximal ascending aorta are not well visualized. MITRAL VALVE The mitral valve is not well visualized. No mitral valve regurgitation noted AORTIC VALVE The aortic valve is not well visualized. No aortic valve stenosis. TRICUSPID VALVE The tricuspid valve is not well visualized. PULMONARY VALVE The pulmonary valve is not well visualized. VESSELS There is less than 50% respiratory change in dimension of the inferior vena cava (abnormal). Nelson Strange DO (Electronically Signed) Final Date:01 April 2018 17:18
[2018-04-01 17:22] LABS: VBG Base Excess 3.4 mmol/L (-2-2); VBG Blood Gas Oxygen Content 13.9 Vol % (9.0-17.0); VBG PCO2 42 mmHG (44-48); VBG PH 7.43 (7.360-7.400); VBG PO2 46 mmHG (35-40)
--- NOTE | 2018-04-01 18:00 | P.PNCC ---
Subjective Subjective Remarks/Hospital Course: This 67-year-old came into the emergency room today with his and daughter. On 02/13/2018, he had a microdiscectomy, C5-C6, by Dr. Schwarz. He was discharged home the next day. A few days after, he had not been feeling well, short of breath, disoriented, generally weak, symptoms were getting worse, disorientation was worse. He was referred to emergency department by his primary care physician for an evaluation. In the ED he was found to be in severe hypercarbic respiratory acidosis and was intubated by ED attending. 04/01: CO2 retention corrected. Remains mildly alkalotic due to chronic CO2 elevation. PH normalized. Still requiring vasopressor therapy with norepinephrine. Broad-spectrum antibiotic coverage started. Lumbar puncture performed with opening pressure 20 and crystal-clear fluid, sent for cell counts , chemistries and culture. HSV included. One extra tube sent for future studies if necessary. Ammonia level 71 - repeat daily. Objective Vital Signs / I&O: Vital Signs 03/31/18 18:18 03/31/18 18:20 03/31/18 18:21 Temperature 101.1 F H Pulse Rate 105 H Respiratory Rate 31 H 20 Blood Pressure 91/55 L Pulse Oximetry 95 98 03/31/18 18:25 03/31/18 18:37 03/31/18 18:49 Temperature Pulse Rate 103 H 90 98 H Respiratory Rate 24 20 20 Blood Pressure 157/95 H 44/28 L 114/77 Pulse Oximetry 90 L 87 L 90 L 03/31/18 18:53 03/31/18 19:00 03/31/18 19:02 Temperature Pulse Rate 114 H 118 H Respiratory Rate 20 20 Blood Pressure 144/80 H Pulse Oximetry 100 98 98 03/31/18 19:25 03/31/18 19:31 03/31/18 19:33 Temperature Pulse Rate 112 H 113 H 128 H Respiratory Rate 28 H 20 28 H Blood Pressure 111/63 93/75 L 92/62 L Pulse Oximetry 100 100 03/31/18 19:46 03/31/18 19:58 03/31/18 20:00 Temperature 100.9 F H 101.1 F H Pulse Rate 110 H 99 H 96 H Respiratory Rate 20 20 20 Blood Pressure 57/42 L 60/40 L Pulse Oximetry 97 94 L 93 L 03/31/18 20:01 03/31/18 20:04 03/31/18 20:07 Temperature 101.1 F H 101.5 F H 101.5 F H Pulse Rate 99 H 96 H 101 H Respiratory Rate 20 20 20 Blood Pressure 60/40 L 63/43 L 91/51 L Pulse Oximetry 94 L 94 L 98 03/31/18 20:10 03/31/18 20:13 03/31/18 20:27 Temperature 101.5 F H 101.5 F H Pulse Rate 102 H 112 H Respiratory Rate 20 20 20 Blood Pressure 89/54 L 92/57 L Pulse Oximetry 100 100 100 03/31/18 20:32 03/31/18 21:13 03/31/18 21:19 Temperature 101.3 F H 101.5 F H Pulse Rate 109 H 113 H 112 H Respiratory Rate 20 21 21 Blood Pressure 112/56 L Pulse Oximetry 100 100 03/31/18 21:22 03/31/18 21:25 03/31/18 21:28 Temperature 101.5 F H 101.5 F H 101.5 F H Pulse Rate 112 H 112 H 111 H Respiratory Rate 20 20 20 Blood Pressure 105/59 L 102/57 L 106/56 L Pulse Oximetry 100 100 100 03/31/18 21:31 03/31/18 21:34 03/31/18 21:37 Temperature 101.5 F H 101.5 F H 101.5 F H Pulse Rate 107 H 109 H 112 H Respiratory Rate 20 20 20 Blood Pressure 98/58 L 101/58 L 97/53 L Pulse Oximetry 100 100 100 03/31/18 21:40 03/31/18 21:43 03/31/18 21:46 Temperature 101.7 F H 101.7 F H 101.7 F H Pulse Rate 111 H 110 H 108 H Respiratory Rate 20 20 20 Blood Pressure 91/55 L 79/53 L Pulse Oximetry 100 100 100 03/31/18 21:49 03/31/18 21:52 03/31/18 21:55 Temperature 101.7 F H 101.7 F H 101.7 F H Pulse Rate 107 H 104 H 102 H Respiratory Rate 20 20 20 Blood Pressure 88/53 L 81/55 L 82/54 L Pulse Oximetry 100 100 100 03/31/18 21:58 03/31/18 22:00 03/31/18 22:01 Temperature 101.7 F H 101.7 F H 101.7 F H Pulse Rate 97 H 101 H 99 H Respiratory Rate 20 20 20 Blood Pressure 86/51 L 89/54 L Pulse Oximetry 100 100 100 03/31/18 22:04 03/31/18 22:07 03/31/18 22:10 Temperature 101.7 F H 101.7 F H 101.7 F H Pulse Rate 102 H 102 H Respiratory Rate 20 20 24 Blood Pressure 109/59 L 105/61 111/60 Pulse Oximetry 100 100 100 03/31/18 22:13 03/31/18 22:16 03/31/18 22:19 Temperature 101.5 F H 101.5 F H 101.5 F H Pulse Rate 104 H 106 H 106 H Respiratory Rate 20 20 20 Blood Pressure 113/60 115/67 116/67 Pulse Oximetry 100 100 100 03/31/18 22:22 03/31/18 22:25 03/31/18 22:27 Temperature 101.3 F H 101.3 F H 101.3 F H Pulse Rate 102 H 103 H 104 H Respiratory Rate 20 20 20 Blood Pressure 118/71 117/77 Pulse Oximetry 100 100 100 03/31/18 22:28 03/31/18 22:31 03/31/18 22:34 Temperature 101.3 F H 101.1 F H 101.1 F H Pulse Rate 104 H 101 H 102 H Respiratory Rate 20 20 20 Blood Pressure 127/71 130/70 132/72 Pulse Oximetry 100 100 100 03/31/18 22:41 03/31/18 22:51 03/31/18 23:00 Temperature 100.9 F H 100.9 F H 100.9 F H Pulse Rate 102 H 105 H 108 H Respiratory Rate 20 20 20 Blood Pressure 137/75 139/97 H Pulse Oximetry 100 100 100 03/31/18 23:01 03/31/18 23:11 03/31/18 23:21 Temperature 100.9 F H 100.8 F H 100.6 F H Pulse Rate 100 H 103 H 101 H Respiratory Rate 20 20 20 Blood Pressure 128/72 121/70 113/66 Pulse Oximetry 100 100 100 03/31/18 23:31 03/31/18 23:51 04/01/18 00:00 Temperature 100.4 F H Pulse Rate 98 H 92 H 98 H Respiratory Rate 20 20 22 Blood Pressure 107/60 110/59 L Pulse Oximetry 100 100 100 04/01/18 00:01 04/01/18 00:11 04/01/18 00:21 Temperature 100.4 F H 100.4 F H 100.4 F H Pulse Rate 100 H 97 H 100 H Respiratory Rate 20 20 20 Blood Pressure 110/77 106/71 105/70 Pulse Oximetry 100 100 100 04/01/18 00:31 04/01/18 00:41 04/01/18 00:47 Temperature 100.4 F H 100.6 F H 100.6 F H Pulse Rate 97 H 89 89 Respiratory Rate 20 20 20 Blood Pressure 88/58 L 83/56 L 93/61 L Pulse Oximetry 100 100 100 04/01/18 00:51 04/01/18 01:00 04/01/18 01:01 Temperature 100.6 F H 100.6 F H 100.6 F H Pulse Rate 89 87 89 Respiratory Rate 20 20 20 Blood Pressure 94/60 L 97/57 L Pulse Oximetry 100 100 100 04/01/18 01:11 04/01/18 01:16 04/01/18 01:21 Temperature 100.6 F H 100.6 F H Pulse Rate 88 88 Respiratory Rate 20 20 Blood Pressure 91/60 L 96/61 L Pulse Oximetry 100 100 100 04/01/18 01:31 04/01/18 01:41 04/01/18 01:51 Temperature 100.6 F H 100.6 F H 100.6 F H Pulse Rate 90 96 H 97 H Respiratory Rate 20 20 20 Blood Pressure 94/58 L 103/58 L 119/73 Pulse Oximetry 100 99 100 04/01/18 02:00 04/01/18 02:01 04/01/18 02:11 Temperature 100.4 F H 100.4 F H 100.2 F H Pulse Rate 99 H 99 H 101 H Respiratory Rate 20 20 20 Blood Pressure 128/78 117/80 Pulse Oximetry 98 100 100 04/01/18 02:21 04/01/18 02:31 04/01/18 02:41 Temperature 100.2 F H 100.2 F H 100.2 F H Pulse Rate 98 H 92 H 88 Respiratory Rate 20 20 20 Blood Pressure 108/66 92/55 L Pulse Oximetry 100 100 100 04/01/18 02:45 04/01/18 02:51 04/01/18 03:00 Temperature 100.4 F H 100.4 F H 100.4 F H Pulse Rate 88 84 91 H Respiratory Rate 20 20 20 Blood Pressure 94/51 L 121/64 Pulse Oximetry 100 100 100 04/01/18 03:01 04/01/18 03:11 04/01/18 03:21 Temperature 100.4 F H 100.2 F H 100.2 F H Pulse Rate 85 84 85 Respiratory Rate 20 20 20 Blood Pressure 111/57 L 114/64 117/67 Pulse Oximetry 100 100 100 04/01/18 03:31 04/01/18 03:41 04/01/18 03:51 Temperature 100.0 F H 100.0 F H 99.7 F H Pulse Rate 87 89 88 Respiratory Rate 20 20 20 Blood Pressure 118/68 124/76 125/75 Pulse Oximetry 100 100 100 04/01/18 03:58 04/01/18 04:00 04/01/18 04:04 Temperature 99.3 F Pulse Rate 91 H 100 H Respiratory Rate 20 22 22 Blood Pressure 114/69 Pulse Oximetry 100 100 85 L 04/01/18 04:11 04/01/18 04:21 04/01/18 04:31 Temperature Pulse Rate 95 H 93 H 107 H Respiratory Rate 20 20 22 Blood Pressure 120/66 128/69 105/66 Pulse Oximetry 100 100 100 04/01/18 04:41 04/01/18 04:51 04/01/18 05:00 Temperature Pulse Rate 98 H 101 H 98 H Respiratory Rate 20 24 20 Blood Pressure 119/69 112/61 Pulse Oximetry 100 99 99 04/01/18 05:01 04/01/18 05:11 04/01/18 05:21 Temperature Pulse Rate 97 H 97 H 98 H Respiratory Rate 20 20 20 Blood Pressure 115/66 112/63 111/60 Pulse Oximetry 100 100 100 04/01/18 05:31 04/01/18 05:41 04/01/18 05:51 Temperature Pulse Rate 95 H 92 H 90 Respiratory Rate 20 20 20 Blood Pressure 103/56 L 106/56 L 107/57 L Pulse Oximetry 100 100 100 04/01/18 06:00 04/01/18 06:01 04/01/18 06:11 Temperature Pulse Rate 91 H 93 H 88 Respiratory Rate 20 20 20 Blood Pressure 92/49 L 107/63 Pulse Oximetry 98 98 100 04/01/18 06:20 04/01/18 06:21 04/01/18 06:31 Temperature Pulse Rate 97 H 97 H 96 H Respiratory Rate 20 21 20 Blood Pressure 101/58 L 111/63 Pulse Oximetry 99 99 100 04/01/18 06:41 04/01/18 06:51 04/01/18 07:00 Temperature Pulse Rate 93 H 95 H 93 H Respiratory Rate 20 20 20 Blood Pressure 113/65 112/65 Pulse Oximetry 100 100 100 04/01/18 07:01 04/01/18 07:11 04/01/18 07:21 Temperature Pulse Rate 94 H 92 H 89 Respiratory Rate 20 20 20 Blood Pressure 110/60 111/61 107/55 L Pulse Oximetry 100 100 100 04/01/18 07:31 04/01/18 07:41 04/01/18 07:51 Temperature Pulse Rate 87 86 92 H Respiratory Rate 20 20 20 Blood Pressure 104/57 L 104/56 L 120/69 Pulse Oximetry 100 100 100 04/01/18 07:55 04/01/18 08:00 04/01/18 08:01 Temperature 99.4 F Pulse Rate 95 H 93 H 95 H Respiratory Rate 20 20 23 Blood Pressure 120/68 Pulse Oximetry 100 100 100 04/01/18 08:11 04/01/18 08:21 04/01/18 08:31 Temperature Pulse Rate 96 H 96 H 98 H Respiratory Rate 20 20 20 Blood Pressure 125/72 124/71 111/60 Pulse Oximetry 100 100 100 04/01/18 08:41 04/01/18 08:50 04/01/18 08:51 Temperature 98.4 F Pulse Rate 98 H 97 H 96 H Respiratory Rate 20 20 20 Blood Pressure 107/56 L 98/53 L Pulse Oximetry 100 100 100 04/01/18 09:00 04/01/18 09:01 04/01/18 09:11 Temperature 98.6 F 98.6 F Pulse Rate 95 H 93 H 91 H Respiratory Rate 20 20 20 Blood Pressure 93/52 L 93/52 L Pulse Oximetry 100 100 100 04/01/18 09:21 04/01/18 09:31 04/01/18 09:41 Temperature Pulse Rate 89 88 90 Respiratory Rate 20 20 26 H Blood Pressure 94/54 L 97/56 L 97/59 L Pulse Oximetry 100 100 100 04/01/18 09:51 04/01/18 10:00 04/01/18 10:01 Temperature Pulse Rate 87 87 86 Respiratory Rate 20 20 Blood Pressure 116/58 L 116/58 L Pulse Oximetry 100 100 100 04/01/18 10:11 04/01/18 10:21 04/01/18 10:31 Temperature Pulse Rate 86 87 86 Respiratory Rate 20 20 20 Blood Pressure 116/60 113/59 L 110/61 Pulse Oximetry 100 100 100 04/01/18 10:41 04/01/18 10:51 04/01/18 11:00 Temperature 98.4 F Pulse Rate 85 84 95 H Respiratory Rate 20 20 20 Blood Pressure 114/65 114/68 Pulse Oximetry 100 100 99 04/01/18 11:01 04/01/18 11:08 04/01/18 11:11 Temperature Pulse Rate 94 H 95 H Respiratory Rate 20 20 20 Blood Pressure 128/59 L 132/65 Pulse Oximetry 99 99 100 04/01/18 11:15 04/01/18 11:21 04/01/18 11:31 Temperature Pulse Rate 96 H 94 H 95 H Respiratory Rate 20 22 20 Blood Pressure 134/69 124/70 Pulse Oximetry 100 100 100 04/01/18 11:41 04/01/18 11:51 04/01/18 12:00 Temperature 99.6 F Pulse Rate 93 H 95 H Respiratory Rate 20 20 20 Blood Pressure 125/69 132/73 Pulse Oximetry 100 99 100 04/01/18 12:01 04/01/18 12:11 04/01/18 12:21 Temperature Pulse Rate 96 H 93 H 93 H Respiratory Rate 20 20 20 Blood Pressure 115/56 L 110/56 L 111/59 L Pulse Oximetry 100 100 100 04/01/18 12:31 04/01/18 12:41 04/01/18 12:51 Temperature Pulse Rate 92 H 90 92 H Respiratory Rate 20 20 20 Blood Pressure 113/59 L 120/64 130/67 Pulse Oximetry 100 100 100 04/01/18 13:00 04/01/18 13:01 04/01/18 13:11 Temperature Pulse Rate 91 H 89 94 H Respiratory Rate 21 22 20 Blood Pressure 114/71 130/81 Pulse Oximetry 100 100 100 04/01/18 13:21 04/01/18 13:31 04/01/18 13:41 Temperature Pulse Rate 98 H 99 H 100 H Respiratory Rate 20 20 21 Blood Pressure 128/78 142/79 H 144/81 H Pulse Oximetry 100 100 100 04/01/18 13:51 04/01/18 13:52 04/01/18 14:00 Temperature Pulse Rate 101 H 101 H 107 H Respiratory Rate 20 20 21 Blood Pressure 117/69 117/66 Pulse Oximetry 100 100 99 04/01/18 14:11 04/01/18 14:21 04/01/18 14:31 Temperature Pulse Rate 102 H 103 H 108 H Respiratory Rate 20 20 20 Blood Pressure 119/63 139/76 144/77 H Pulse Oximetry 100 100 100 04/01/18 14:41 04/01/18 14:51 04/01/18 15:00 Temperature Pulse Rate 113 H 114 H 117 H Respiratory Rate 20 20 20 Blood Pressure 143/79 H 138/87 Pulse Oximetry 100 100 100 04/01/18 15:01 04/01/18 15:11 04/01/18 15:21 Temperature Pulse Rate 117 H 118 H 120 H Respiratory Rate 20 20 20 Blood Pressure 142/89 H 142/76 H 144/77 H Pulse Oximetry 100 100 100 04/01/18 15:31 04/01/18 15:41 04/01/18 15:51 Temperature Pulse Rate 122 H 123 H 127 H Respiratory Rate 20 20 21 Blood Pressure 150/78 H 150/78 H 145/78 H Pulse Oximetry 100 100 100 04/01/18 16:00 04/01/18 16:01 04/01/18 16:11 Temperature 100.6 F H Pulse Rate 126 H 127 H 125 H Respiratory Rate 20 20 20 Blood Pressure 137/74 135/76 Pulse Oximetry 100 100 100 04/01/18 16:21 04/01/18 16:31 04/01/18 16:34 Temperature Pulse Rate 122 H 120 H 117 H Respiratory Rate 20 20 20 Blood Pressure 124/64 89/53 L 88/50 L Pulse Oximetry 100 100 100 04/01/18 16:45 04/01/18 16:53 04/01/18 16:56 Temperature Pulse Rate 110 H 106 H 104 H Respiratory Rate 20 20 20 Blood Pressure 73/50 L 90/54 L 93/53 L Pulse Oximetry 98 98 98 04/01/18 17:00 04/01/18 17:11 Temperature Pulse Rate 102 H 93 H Respiratory Rate 20 20 Blood Pressure 122/67 Pulse Oximetry 99 100 Intake & Output 03/31/18 04/01/18 04/01/18 18:59 06:59 18:59 Intake Total 1999 4000 / 4000 1996. Output Total 1000 / 1000 Balance 1999 3000 / 3000 Weight 78.925 kg 85 kg Intake: IV 1999 4000 / 4000 1996. NS Inj 1,000 ML @ 75 mls/hr IV. 1000 / 1000 1000 / 1000 CONT .[id number] GIGI Rx#:[id number] Maxipime Inj 2,000 MG In NS Inj 100 / 100 100 ML @ 200 mls/hr IV.SIG Q8H GIGI Rx#:[id number] Levophed-Dextrose 4 mg/250 ml 250 / 250 Drip 4 mg In 250 ml @ 2 MCG/MIN 7.5 mls/hr IV.SIG TITRATE PRN Rx#:[id number] Zosyn 3.375 GM Premix 3.375 gm 50 / 50 In 50 ml @ 100 mls/hr IV.SIG Q6HR GIGI Rx#:[id number] NS Inj 1,000 ML @ 3000 mls/hr 1999 / 1999 3000 / 3000 IV.SIG Q20M GIGI Rx#:[id number] Vancomycin Inj 1,750 MG In NS 517.5 / 517.5 Inj 500 ML @ 250 mls/hr IV.SIG Q12H GIGI Rx#:[id number] Output: Urine Amount (Catheter) 1000 / 1000 Indwelling Urethral Catheter 1000 / 1000 Other: Weight On Admission 85.9 kg Result Diagrams: 04/01/18 03:53 04/01/18 03:53 Objective Remarks: - Constitutional Sedated and intubated on mechanical ventilation - Routine HEENT Exam Head: Present: normocephalic, atraumatic ENT: Present: mucous membranes moist - Routine Neck Exam Orotracheal intubation. Absent: JVD, carotid bruit - Routine Respiratory Exam Present: patient mechanically ventilated. Good bilateral air movement. Absent : rhonchi, stridor, wheezes - Routine Cardiovascular Exam Present: RRR, S1, S2, no JVD. - Routine Abdominal Exam Present: soft, normoactive bowel sounds. No guarding. Absent: tenderness, distended - Routine Extremities Exam Absent: cyanosis, clubbing, edema. Toes and fingers warm and well-perfused. - Routine Skin Exam Present: intact. Absent: cyanosis, erythema - Routine Neurological Exam Present: Neck and extremity rigidity. Deep tendon reflexes at knee 3+ bilaterally. Unable to test clonus due to rigidity at ankles. PE RRL. Assessment and Plan - Assessment and Plan Plan: Respiratory failure -Hypercarbic respiratory failure, resolved -Vent bundle Altered mental status -Due to above -CT head negative -MRI of the neck negative -Supportive care -Lumbar puncture performed, fluid clear Hypotension -Aggressive IV fluid resuscitation -Central line and Levophed to keep map above 65 -Blood culture -CSF culture -Broad antibiotic coverage Hypothyroidism -TSH and T4 within normal limits -Continue Synthroid Dyslipidemia - Pravastatin DVT GI prophylaxis -Teds SCDs -Subcu heparin -Pepcid Overall impression: This gentleman is critically ill with what appears to be distributive shock and sepsis. He is requiring vasopressor therapy and we are unable to wean him from mechanical ventilation. Cultures of blood, sputum, CSF are pending. I discussed his care in detail with the and daughter at the bedside. Critical care time 60 minutes aside from procedures.
--- NOTE | 2018-04-01 18:08 | P.PCN ---
Date of procedure: 04/01/18 Procedure: Diagnosis: Encephalopathy, fever, leukocytosis Procedure: Diagnostic lumbar puncture Narrative: Timeout performed and patient properly identified. Patient on mechanical ventilation with usual ICU prophylactic measures in place including usual monitoring procedures. The patient did receive Lovenox 40 mg this morning but I felt the urgency of the situation precluded waiting another 12 hours for the lumbar puncture. Patient was turned in the left lateral decubitus position. The hips and knees were quite stiff but we were able to position the patient such that I could face the lumbar region. The lumbar region was prepped twice and draped. A 20-gauge needle was inserted through the L4-5 interspace in the midline and the canal was entered without difficulty. Opening pressure was 20 cm of water. The fluid was crystal clear. The fluid drained readily. 4 tubes were sent for various studies to include cell counts, chemistries, cultures and sensitivities. The fourth tube was labeled for additional studies if necessary. The spinal needle was withdrawn and a Band-Aid applied. The patient was turned in the flat position afterwards.
[2018-04-01 19:04] LABS: Total Protein,CSF 49.1 mg/dL (15.0-45.0)
[2018-04-01 19:15] LABS: Lymphocytes, CSF 70 %; Monocytes,CSF 10 %; Neutrophils,CSF 20 %; RBC on Tube 4 81 /mm3
[2018-04-01 19:16] LABS: RBC on Tube 2 89 /mm3
--- NOTE | 2018-04-01 22:30 | MG ---
cc: Jaswinder Betancourt MD, PhD TEST NUMBER: [id number] TECHNIQUE: This is a 17-channel electroencephalogram. DESCRIPTION: Background rhythm is generally slow in the theta and delta frequencies ranging from 3 Hz to 5 Hz. Amplitude is about 20 microvolts. There is some muscle artifact. There are no epileptiform features. Photic resulted in a poor driving response. INTERPRETATION: Abnormal study consistent with a significant encephalopathy. Jaswinder Betancourt MD, PhD YEMI/ts/rr , 09:03 PM , 09:08 PM
[2018-04-01 23:22] LABS: Alanine Aminotransferase 53 U/L (12-78); Albumin 2.5 g/dL (3.4-5.0); Anion Gap 7 meq/L (5-15); Aspartate Aminotransferase 29 U/L (15-37); Blood Urea Nitrogen 17 mg/dL (7-18); Calcium 7.7 mg/dL (8.5-10.1); Chloride 107 meq/L (98-107); Glomerular Filtration Rate Greater Than 89 mL/min (>89); Glucose,Random 86 mg/dL (74-106); Potassium 3.5 meq/L (3.5-5.1); Sodium 140 meq/L (136-145)
[2018-04-01 23:24] LABS: Alkaline Phosphatase 50 U/L (45-117); Total Protein 5.3 g/dL (6.4-8.2)
[2018-04-02] MEDS: Piperacil/Tazo 3.375 GM Premix 3.375 GM/50 ML PIGGYBACK IV.SIG SCH ×3 (01:21→13:05)
[2018-04-02] MEDS: Midazolam 100 MG/100 ML Inj 100 MG/100 ML BAG IV.CONT PRN (01:21)
--- NOTE | 2018-04-02 04:16 | XR ---
EXAM DATE: 04/02/2018 4:02 AM EST AGE/SEX: 67 years / Male INDICATIONS: Hypoxemia, sepsis. CLINICAL DATA: This is the patient's subsequent encounter. Patient reports that signs and symptoms h ave been present for 3 days and indicates a pain score of Nonresponsive. MEDICAL/SURGICAL HISTORY: Sepsis. Gastroesophageal reflux disease. Inguinal hernia repair. COMPARISON: [facility], CHEST 1V SINGLE AP, 04/01/2018. . FINDINGS: Single AP view of the chest. Endotracheal tube, nasogastric tube, left subclavian central venous cath eter remain in place. Patchy bilateral lower lung zone opacity unchanged. No evidence of pleural effu jon or pneumothorax. Cardiomediastinal silhouette within normal limits. CONCLUSION: No significant interval change. Mild bilateral lower lung zone atelectasis. Electronically signed by: Beto De Oliveira MD Board Certified Radiologist 04/02/2018 4:14 AM EST
[2018-04-02 04:49] LABS: Baso # (Auto) 0.1 th/mm3 (0.0-0.2); Baso % (Auto) 0.3 % (0.0-2.0); Eos % (Auto) 0.2 % (0.0-4.0); Hematocrit 37.6 % (39.0-51.0); Hemoglobin 12.3 gm/dL (13.0-17.0); Lymph # (Auto) 1.1 th/mm3 (1.0-4.8); Mean Corpuscular HGB Conc 32.6 % (32.0-36.0); Mean Corpuscular Hemoglobin 30.6 pg (27.0-34.0); Mean Corpuscular Volume 93.9 fL (80.0-100.0); Mean Platelet Volume 6.8 fL (7.0-11.0); Mono # (Auto) 1.1 th/mm3 (0.0-0.9); Mono % (Auto) 6.3 % (0.0-8.0); Neut # (Auto) 15.4 th/mm3 (1.8-7.7); Neut % (Auto) 87.2 % (16.0-70.0); Platelet Count 245 th/mm3 (150-450); Red Blood Count 4.01 mil/mm3 (4.50-5.90); Red Cell Distribution Width 14.5 % (11.6-17.2); White Blood Count 17.7 th/mm3 (4.0-11.0)
[2018-04-02 05:11] LABS: Albumin 2.6 g/dL (3.4-5.0); Anion Gap 5 meq/L (5-15); Aspartate Aminotransferase 29 U/L (15-37); Blood Urea Nitrogen 15 mg/dL (7-18); Calcium 8.1 mg/dL (8.5-10.1); Carbon Dioxide 28.7 meq/L (21.0-32.0); Chloride 106 meq/L (98-107); Gamma Glutamyl Transpeptidase 49 U/L (15-85); Glomerular Filtration Rate Greater Than 89 mL/min (>89); Glucose,Random 80 mg/dL (74-106); Potassium 3.6 meq/L (3.5-5.1); Sodium 140 meq/L (136-145)
[2018-04-02 05:12] LABS: Alanine Aminotransferase 51 U/L (12-78)
[2018-04-02 05:14] LABS: Alkaline Phosphatase 53 U/L (45-117); Total Protein 5.8 g/dL (6.4-8.2)
[2018-04-02 05:15] LABS: ABG Base Excess 0.6 mmol/L (-2-2); ABG PCO2 49 mmHg (38-42); ABG PO2 107 mmHg (61-120)
[2018-04-02] MEDS: Levothyroxine 125 MCG Tablet PO SCH (05:23)
[2018-04-02] MEDS: Chlorhexidine Gluconate 2% 1 Pack (2 Cloths) TOPICAL SCH (05:23)
[2018-04-02] MEDS: Sod Chloride 0.9% Inj 1,000 ML IV.CONT SCH ×3 (05:23→22:19)
[2018-04-02] MEDS: Oral Hygiene Kit OROPHARYNG SCH ×4 (05:24→16:02)
--- NOTE | 2018-04-02 07:16 | P.PNCC ---
Subjective Subjective Remarks/Hospital Course: This 67-year-old came into the emergency room today with his and daughter. On 02/13/2018, he had a microdiscectomy, C5-C6, by Dr. Schwarz. He was discharged home the next day. A few days after, he had not been feeling well, short of breath, disoriented, generally weak, symptoms were getting worse, disorientation was worse. He was referred to emergency department by his primary care physician for an evaluation. In the ED he was found to be in severe hypercarbic respiratory acidosis and was intubated by ED attending. 04/01: CO2 retention corrected. Remains mildly alkalotic due to chronic CO2 elevation. PH normalized. Still requiring vasopressor therapy with norepinephrine. Broad-spectrum antibiotic coverage started. Lumbar puncture performed with opening pressure 20 and crystal-clear fluid, sent for cell counts , chemistries and culture. HSV included. One extra tube sent for future studies if necessary. Ammonia level 71 - repeat daily. 04/02: CSF appears benign. Repeat ammonia level normal. Gamma GT normal. Cardiac echo estimated of 45% ejection fraction requires a little additional investigation -patient has been chronically short of breath for several weeks now. Leukocytosis and left shift persists. Gram-positive cocci and white cells seen in sputum. This man clearly became acutely and critically ill - exact cause still eludes us. Objective Vital Signs / I&O: Vital Signs 04/01/18 07:11 04/01/18 07:21 04/01/18 07:31 Temperature Pulse Rate 92 H 89 87 Respiratory Rate 20 20 20 Blood Pressure 111/61 107/55 L 104/57 L Pulse Oximetry 100 100 100 04/01/18 07:41 04/01/18 07:51 04/01/18 07:55 Temperature Pulse Rate 86 92 H 95 H Respiratory Rate 20 20 20 Blood Pressure 104/56 L 120/69 Pulse Oximetry 100 100 100 04/01/18 08:00 04/01/18 08:01 04/01/18 08:11 Temperature 99.4 F Pulse Rate 93 H 95 H 96 H Respiratory Rate 20 23 20 Blood Pressure 120/68 125/72 Pulse Oximetry 100 100 100 04/01/18 08:21 04/01/18 08:31 04/01/18 08:41 Temperature Pulse Rate 96 H 98 H 98 H Respiratory Rate 20 20 20 Blood Pressure 124/71 111/60 107/56 L Pulse Oximetry 100 100 100 04/01/18 08:50 04/01/18 08:51 04/01/18 09:00 Temperature 98.4 F 98.6 F Pulse Rate 97 H 96 H 95 H Respiratory Rate 20 20 20 Blood Pressure 98/53 L Pulse Oximetry 100 100 100 04/01/18 09:01 04/01/18 09:11 04/01/18 09:21 Temperature 98.6 F Pulse Rate 93 H 91 H 89 Respiratory Rate 20 20 20 Blood Pressure 93/52 L 93/52 L 94/54 L Pulse Oximetry 100 100 100 04/01/18 09:31 04/01/18 09:41 04/01/18 09:51 Temperature Pulse Rate 88 90 87 Respiratory Rate 20 26 H Blood Pressure 97/56 L 97/59 L 116/58 L Pulse Oximetry 100 100 100 04/01/18 10:00 04/01/18 10:01 04/01/18 10:11 Temperature Pulse Rate 87 86 86 Respiratory Rate 20 20 20 Blood Pressure 116/58 L 116/60 Pulse Oximetry 100 100 100 04/01/18 10:21 04/01/18 10:31 04/01/18 10:41 Temperature Pulse Rate 87 86 85 Respiratory Rate 20 20 20 Blood Pressure 113/59 L 110/61 114/65 Pulse Oximetry 100 100 100 04/01/18 10:51 04/01/18 11:00 04/01/18 11:01 Temperature 98.4 F Pulse Rate 84 95 H 94 H Respiratory Rate 20 20 20 Blood Pressure 114/68 128/59 L Pulse Oximetry 100 99 99 04/01/18 11:08 04/01/18 11:11 04/01/18 11:15 Temperature Pulse Rate 95 H 96 H Respiratory Rate 20 20 20 Blood Pressure 132/65 Pulse Oximetry 99 100 100 04/01/18 11:21 04/01/18 11:31 04/01/18 11:41 Temperature Pulse Rate 94 H 95 H 93 H Respiratory Rate 22 20 20 Blood Pressure 134/69 124/70 125/69 Pulse Oximetry 100 100 100 04/01/18 11:51 04/01/18 12:00 04/01/18 12:01 Temperature 99.6 F Pulse Rate 95 H 96 H Respiratory Rate 20 20 20 Blood Pressure 132/73 115/56 L Pulse Oximetry 99 100 100 04/01/18 12:11 04/01/18 12:21 04/01/18 12:31 Temperature Pulse Rate 93 H 93 H 92 H Respiratory Rate 20 20 20 Blood Pressure 110/56 L 111/59 L 113/59 L Pulse Oximetry 100 100 100 04/01/18 12:41 04/01/18 12:51 04/01/18 13:00 Temperature Pulse Rate 90 92 H 91 H Respiratory Rate 20 20 21 Blood Pressure 120/64 130/67 Pulse Oximetry 100 100 100 04/01/18 13:01 04/01/18 13:11 04/01/18 13:21 Temperature Pulse Rate 89 94 H 98 H Respiratory Rate 22 20 20 Blood Pressure 114/71 130/81 128/78 Pulse Oximetry 100 100 100 04/01/18 13:31 04/01/18 13:41 04/01/18 13:51 Temperature Pulse Rate 99 H 100 H 101 H Respiratory Rate 20 21 20 Blood Pressure 142/79 H 144/81 H 117/69 Pulse Oximetry 100 100 100 04/01/18 13:52 04/01/18 14:00 04/01/18 14:11 Temperature Pulse Rate 101 H 107 H 102 H Respiratory Rate 20 21 20 Blood Pressure 117/66 119/63 Pulse Oximetry 100 99 100 04/01/18 14:21 04/01/18 14:31 04/01/18 14:41 Temperature Pulse Rate 103 H 108 H 113 H Respiratory Rate 20 20 20 Blood Pressure 139/76 144/77 H 143/79 H Pulse Oximetry 100 100 100 04/01/18 14:51 04/01/18 15:00 04/01/18 15:01 Temperature Pulse Rate 114 H 117 H 117 H Respiratory Rate 20 20 20 Blood Pressure 138/87 142/89 H Pulse Oximetry 100 100 100 04/01/18 15:11 04/01/18 15:21 04/01/18 15:31 Temperature Pulse Rate 118 H 120 H 122 H Respiratory Rate 20 20 20 Blood Pressure 142/76 H 144/77 H 150/78 H Pulse Oximetry 100 100 100 04/01/18 15:41 04/01/18 15:51 04/01/18 16:00 Temperature 100.6 F H Pulse Rate 123 H 127 H 126 H Respiratory Rate 20 21 20 Blood Pressure 150/78 H 145/78 H Pulse Oximetry 100 100 100 04/01/18 16:01 04/01/18 16:11 04/01/18 16:21 Temperature Pulse Rate 127 H 125 H 122 H Respiratory Rate 20 20 20 Blood Pressure 137/74 135/76 124/64 Pulse Oximetry 100 100 100 04/01/18 16:31 04/01/18 16:34 04/01/18 16:45 Temperature Pulse Rate 120 H 117 H 110 H Respiratory Rate 20 20 20 Blood Pressure 89/53 L 88/50 L 73/50 L Pulse Oximetry 100 100 98 04/01/18 16:53 04/01/18 16:56 04/01/18 17:00 Temperature Pulse Rate 106 H 104 H 102 H Respiratory Rate 20 20 20 Blood Pressure 90/54 L 93/53 L Pulse Oximetry 98 98 99 04/01/18 17:11 04/01/18 17:26 04/01/18 17:41 Temperature Pulse Rate 93 H 87 95 H Respiratory Rate 20 20 20 Blood Pressure 122/67 131/75 131/61 Pulse Oximetry 100 100 100 04/01/18 17:56 04/01/18 18:00 04/01/18 18:11 Temperature Pulse Rate 98 H 98 H 99 H Respiratory Rate 20 20 20 Blood Pressure 125/66 141/71 H Pulse Oximetry 100 100 100 04/01/18 18:26 04/01/18 18:41 04/01/18 18:56 Temperature Pulse Rate 98 H 93 H 93 H Respiratory Rate 20 20 20 Blood Pressure 131/75 124/74 122/65 Pulse Oximetry 100 100 100 04/01/18 19:00 04/01/18 19:11 04/01/18 19:26 Temperature Pulse Rate 91 H 93 H 92 H Respiratory Rate 16 16 16 Blood Pressure 119/66 118/63 Pulse Oximetry 100 100 100 04/01/18 19:41 04/01/18 19:56 04/01/18 20:00 Temperature 99.2 F Pulse Rate 93 H 97 H 102 H Respiratory Rate 16 20 19 Blood Pressure 125/64 124/67 Pulse Oximetry 100 98 98 04/01/18 20:11 04/01/18 20:12 04/01/18 20:26 Temperature Pulse Rate 103 H 100 H Respiratory Rate 17 16 16 Blood Pressure 131/69 140/70 Pulse Oximetry 98 99 99 04/01/18 20:57 04/01/18 21:00 04/01/18 21:28 Temperature Pulse Rate 119 H 113 H 107 H Respiratory Rate 19 16 16 Blood Pressure 167/80 H 144/72 H Pulse Oximetry 98 98 98 04/01/18 21:30 04/01/18 21:45 04/01/18 22:00 Temperature Pulse Rate 107 H 103 H 107 H Respiratory Rate 16 18 18 Blood Pressure 142/76 H 133/80 129/72 Pulse Oximetry 99 99 99 04/01/18 22:15 04/01/18 22:30 04/01/18 22:45 Temperature Pulse Rate 97 H 93 H 91 H Respiratory Rate 16 16 16 Blood Pressure 117/70 113/66 116/67 Pulse Oximetry 100 100 100 04/01/18 23:00 04/01/18 23:15 04/01/18 23:30 Temperature Pulse Rate 92 H 90 87 Respiratory Rate 16 16 16 Blood Pressure 120/69 117/67 115/68 Pulse Oximetry 100 100 100 04/01/18 23:45 04/02/18 00:00 04/02/18 00:15 Temperature 97.8 F Pulse Rate 87 84 84 Respiratory Rate 16 16 16 Blood Pressure 116/70 116/70 114/71 Pulse Oximetry 100 100 100 04/02/18 00:21 04/02/18 00:30 04/02/18 00:45 Temperature Pulse Rate 82 82 Respiratory Rate 16 16 16 Blood Pressure 115/71 115/72 Pulse Oximetry 100 100 100 04/02/18 01:00 04/02/18 01:15 04/02/18 01:30 Temperature Pulse Rate 84 85 87 Respiratory Rate 16 16 16 Blood Pressure 121/77 134/78 124/69 Pulse Oximetry 100 100 100 04/02/18 01:45 04/02/18 02:00 04/02/18 02:15 Temperature Pulse Rate 87 87 84 Respiratory Rate 16 16 16 Blood Pressure 117/65 115/67 115/69 Pulse Oximetry 100 100 100 04/02/18 02:30 04/02/18 02:45 04/02/18 03:00 Temperature Pulse Rate 84 87 86 Respiratory Rate 16 17 16 Blood Pressure 116/70 120/70 119/69 Pulse Oximetry 100 100 100 04/02/18 03:15 04/02/18 03:30 04/02/18 04:00 Temperature 97.9 F Pulse Rate 85 88 91 H Respiratory Rate 16 16 33 H Blood Pressure 118/70 109/64 Pulse Oximetry 100 100 100 04/02/18 04:07 04/02/18 04:15 04/02/18 04:21 Temperature Pulse Rate 104 H 105 H 111 H Respiratory Rate 17 16 18 Blood Pressure 175/79 H 159/83 H Pulse Oximetry 100 100 04/02/18 04:24 04/02/18 04:30 04/02/18 04:45 Temperature Pulse Rate 110 H 109 H Respiratory Rate 17 16 Blood Pressure 153/81 H 149/81 H Pulse Oximetry 100 100 100 04/02/18 05:00 04/02/18 05:15 04/02/18 05:30 Temperature Pulse Rate 106 H 102 H 100 H Respiratory Rate 16 16 16 Blood Pressure 132/74 124/72 133/67 Pulse Oximetry 99 100 100 04/02/18 05:45 04/02/18 06:00 Temperature Pulse Rate 97 H 93 H Respiratory Rate 16 16 Blood Pressure 111/62 104/62 Pulse Oximetry 99 99 Intake & Output 04/01/18 04/02/18 04/02/18 18:59 06:59 18:59 Intake Total 2672.5 / 2672.5 2342.5 / 2342.5 Output Total 700 / 700 1250 / 1250 Balance 1972.5 / 1971.5 1092.5 / 1092.5 Weight 86.3 kg Intake: IV 2672.5 / 2672.5 2342.5 / 2342.5 Versed Inj 100 mg In 100 ml @ 2 100 / 100 MG/HR 2 mls/hr IV.CONT TITRATE PRN Rx#:[id number] NS Inj 1,000 ML @ 125 mls/hr IV 1625 / 1625 1375 / 1375 .CONT .Q8H [facility] Rx#:[id number] Maxipime Inj 2,000 MG In NS Inj 100 / 100 100 ML @ 200 mls/hr IV.SIG Q8H [facility] Rx#:[id number] Levophed-Dextrose 4 mg/250 ml 250 / 250 250 / 250 Drip 4 mg In 250 ml @ 2 MCG/MIN 7.5 mls/hr IV.SIG TITRATE PRN Rx#:[id number] Zosyn 3.375 GM Premix 3.375 gm 100 / 100 100 / 100 In 50 ml @ 100 mls/hr IV.SIG Q6HR [facility] Rx#:[id number] Vancomycin Inj 1,750 MG In NS 517.5 / 517.5 517.5 / 517.5 Inj 500 ML @ 250 mls/hr IV.SIG Q12H [facility] Rx#:[id number] Output: Urine Amount (Catheter) 700 / 700 1250 / 1250 Indwelling Urethral Catheter 700 / 700 1250 / 1250 Result Diagrams: 04/02/18 04:25 04/02/18 04:25 Objective Remarks: - Constitutional Sedated and intubated on mechanical ventilation - Routine HEENT Exam Head: Present: normocephalic, atraumatic ENT: Present: mucous membranes moist - Routine Neck Exam Orotracheal intubation. Absent: JVD, carotid bruit - Routine Respiratory Exam Present: patient mechanically ventilated. Good bilateral air movement. Absent : rhonchi, stridor, wheezes - Routine Cardiovascular Exam Present: RRR, S1, S2, no JVD. - Routine Abdominal Exam Present: soft, normoactive bowel sounds. No guarding. Absent: tenderness, distended - Routine Extremities Exam Absent: cyanosis, clubbing, edema. Toes and fingers warm and well-perfused. - Routine Skin Exam Present: intact. Absent: cyanosis, erythema - Routine Neurological Exam Present: Neck and extremity rigidity less pronounced. Deep tendon reflexes at knee 3+ bilaterally. Unable to test clonus due to rigidity at ankles. PERRL. Assessment and Plan - Assessment and Plan Plan: Respiratory failure -Hypercarbic respiratory failure, resolved -Vent bundle -Restraints ordered -Possible strep pneumonia? -Needs sniff test to assess diaphragmatic function Altered mental status -Due to above -CT head negative -MRI of the neck negative -Supportive care -Lumbar puncture performed, fluid clear, benign cell counts and chemistries -Ammonia level on recheck is normal, gamma GT normal Hypotension -Aggressive IV fluid resuscitation -Central line and Levophed to keep map above 65 -Blood culture -CSF culture -Broad antibiotic coverage continued -Requiring vasopressor support still -Repeat cardiac markers Hypothyroidism -TSH and T4 within normal limits -Continue Synthroid Dyslipidemia - Pravastatin DVT GI prophylaxis -Teds SCDs -Subcu heparin -Pepcid Overall impression: This gentleman is critically ill with what appears to be distributive shock and sepsis. He is still requiring vasopressor therapy and we are unable to wean him from mechanical ventilation. Results of cultures of blood, sputum, CSF are pending. Depressed left ventricular function is concerning -no evidence of an acute cardiac event. Critical care time 45 minutes aside from procedures.
[2018-04-02] MEDS: Chlorhexidine 0.12% Oral Kit 15 ML UDC OROPHARYNG SCH ×2 (08:04→20:56)
[2018-04-02] MEDS: Famotidine PF Inj 20 MG/2 ML Vial IV.PUSH SCH ×2 (08:04→20:56)
[2018-04-02] MEDS: Senna/Docusate Sodium 8.6/50 MG Tablet PO SCH ×2 (08:04→20:56)
[2018-04-02 09:53] LABS: Lipase 60 U/L (73-393)
[2018-04-02 10:04] LABS: Creatine Kinase 87 U/L (39-308)
--- NOTE | 2018-04-02 10:21 | P.CONNS ---
History of Present Illness Service: Neurosurgery Consult date: 04/02/18 Reason for Consult: Possible complication status post C5/6 ACDF Primary Care Provider: Rex Longoria MD Chief Complaint: Acute respiratory failure History of Present Illness: This is a 67-year-old gentleman on whom we are consulted for assessment of possible relation of acute respiratory failure to recent C5/6 ACDF. The surgery was performed by Dr. Schwarz on 02/13/18. The patient's family reports that, for the first 3 days following surgery, he did well. Starting on the third day, he began to have a slow progressive change. His breathing became progressively more labored and had an abnormal sound to it, though they have trouble characterizing that. He began to be more fatigued over time. He began to have significant tremors and his voice became hypophonic over time as well, and difficult to understand. He was struggling with this for over 6 weeks at home, and finally came to the emergency department on 03/31. He was found to have a PCO2 in excess of 140 and subsequently was intubated for hypercarbic respiratory failure. Workup has been largely unrevealing to date, and the ICU team requested our assessment to determine whether or not a postsurgical complication could be responsible. In the ICU, he has had a leukocytosis with a left shift, but workup has not revealed any obvious infection. He is on broad -spectrum antibiotics at this time. Review of Systems Unable to obtain due to intubation PMFSH - History History Provided By: Family Member - Medical History Medical History: Medical History (Last Reviewed 04/01/18 @ 12:39 by Lisseth Martins MD) GERD (gastroesophageal reflux disease) High cholesterol Raspy voice Thyroid disease - Surgical History Surgical History: Surgical History (Last Reviewed 04/01/18 @ 12:39 by Lisseth Martins MD) H/O microdiscectomy H/O inguinal hernia repair Status post bilateral LASIK surgery - Family History Family History: Family History (Last Updated 04/01/18 @ 12:39 by Lisseth Martins MD) Other Family history non-contributory - Tobacco History Second Hand Smoke Exposure: No Tobacco Use In Past 30 Days: No Smoking Status: Never smoker Tobacco Type: Cigarettes - Alcohol History How Often Do You Have a Drink Containing Alcohol: Monthly or less - Substance Use History Substance History: No History of Abuse - Travel History Recent Travel in the [place] Within the Last 8 Weeks: No Recent Travel Out of the Country Within the Last 8 Weeks: No - Immunization History Tetanus Immunization: <5 Years Hx Influenza Vaccine This Season: Yes Medications and Allergies Active Medications: Active Medications Acetaminophen (Tylenol) 650 mg PO Q4H PRN PRN Reason: Temp > 100.4 Last Admin: 04/01/18 15:53 Dose: 650 mg Al Hydroxide/Mg Hydroxide (Milk Of Magnesia Liq) 30 ml PO Q12H PRN PRN Reason: Mild Constipation Albuterol (Duoneb Neb (Prn)) 1 ampul NEB Q4HR NEB PRN PRN Reason: SHORTNESS OF BREATH Albuterol (Duoneb Neb (Je)) 1 ampul NEB Q6HR NEB [facility] Last Admin: 04/02/18 08:44 Dose: 1 ampul Aspirin (Ecotrin) 81 mg PO DAILY [facility] Last Admin: 04/02/18 08:04 Dose: 81 mg Chlorhexidine Gluconate (Peridex 0.12% Oral Kit) 15 ml OROPHARYNG BID@0800, 2000 [facility] Last Admin: 04/02/18 08:04 Dose: 15 ml Chlorhexidine Gluconate (Chlorhexidine 2% Cloth) 3 pack TOPICAL DAILY@0400 [facility] Stop: 04/06/18 03:59 Last Admin: 04/02/18 05:23 Dose: 3 pack Chlorhexidine Gluconate (Chlorhexidine 2% Cloth) 3 pack TOPICAL DAILY@0400 PRN PRN Reason: Extra cloth needed Stop: 04/06/18 03:59 Enoxaparin Sodium (Lovenox Inj) 30 mg SQ Q24H [facility] Last Admin: 04/01/18 13:45 Dose: 30 mg Famotidine (Pepcid Pf Inj) 20 mg IV.PUSH Q12HR [facility] Last Admin: 04/02/18 08:04 Dose: 20 mg Sodium Chloride (Ns Inj) 1,000 mls @ 125 mls/hr IV.CONT .Q8H [facility] Last Admin: 04/02/18 05:23 Dose: 125 mls/hr Fentanyl (Fentanyl 10 Mcg/Ml Premix Drip) 2,500 mcg in 250 mls @ 5 mls/hr IV.SIG TITRATE PRN; Protocol PRN Reason: Per Protocol Last Titration: 04/02/18 06:02 Dose: 50 mcg/hr, 5 mls/hr Midazolam HCl (Versed Inj) 100 mg in 100 mls @ 2 mls/hr IV.CONT TITRATE PRN; Protocol PRN Reason: See protocol Last Titration: 04/02/18 06:02 Dose: 3 mg/hr, 3 mls/hr Norepinephrine Bitartrate (Levophed-Dextrose 4 Mg/250 Ml Drip) 4 mg in 250 mls @ 7.5 mls/hr IV.SIG TITRATE PRN; Protocol PRN Reason: Per Protocol Last Admin: 04/02/18 05:23 Dose: 2 mcg/min, 7.5 mls/hr Vancomycin HCl 1,750 mg/ (Sodium Chloride) 517.5 mls @ 250 mls/hr IV.SIG Q12H [facility] Last Infusion: 04/02/18 01:18 Dose: Infused Piperacillin/Tazobactam/Dextrose (Zosyn 3.375 Gm Premix) 3.375 gm in 50 mls @ 100 mls/hr IV.SIG Q6HR [facility] Last Infusion: 04/02/18 06:02 Dose: Infused Lactulose (Lactulose Liq) 30 ml PO TID [facility] Last Admin: 04/02/18 08:04 Dose: 30 ml Levothyroxine Sodium (Synthroid) 125 mcg PO DAILY@0600 [facility] Last Admin: 04/02/18 05:23 Dose: 125 mcg Miscellaneous Information ([facility] Ordered Lab Info) 0 each OTHER ONCE ONE Stop: 04/03/18 09:46 Miscellaneous Medication () 1 each OROPHARYNG 0000,0400,1200,1600 [facility] Last Admin: 04/02/18 05:24 Dose: 1 each Ondansetron HCl (Zofran Inj) 4 mg IV.PUSH Q6H PRN PRN Reason: NAUSEA OR VOMITING Pharmacy Profile Note (Vancomycin Consult Pharmacy) 1 each OTHER UNSCH PRN PRN Reason: Pharmacy to dose Pravastatin Sodium (Pravachol) 40 mg PO [facility] Last Admin: 04/01/18 20:47 Dose: 40 mg Senna/Docusate Sodium (Celine-Colace) 1 tab PO BID [facility] Last Admin: 04/02/18 08:04 Dose: 1 tab Sodium Chloride (Ns Flush) 2 ml IV.FLUSH BID [facility] Last Admin: 04/02/18 08:04 Dose: 2 ml Sodium Chloride (Ns Flush) 2 ml IV.FLUSH PRN PRN PRN Reason: FLUSH AFTER USING IV ACCESS Terbutaline Sulfate (Brethine Inj) 1 mg SQ UNSCH PRN PRN Reason: For Extravasation Allergies Allergy/AdvReac Type Severity Reaction Status Date / Time Sulfa (Sulfonamide Allergy Severe Nausea Verified 02/15/18 05:02 Antibiotics) Home Medications Medication Instructions Recorded Confirmed Type aspirin 81 mg PO DAILY 02/08/18 03/31/18 History levothyroxine 125 mcg PO DAILY 02/08/18 03/31/18 History pantoprazole [Protonix] 40 mg PO DAILY 02/08/18 03/31/18 History pravastatin 40 mg PO HS 02/08/18 03/31/18 History amlodipine [Norvasc] 10 mg PO DAILY 03/31/18 03/31/18 History ranitidine HCl [Zantac] 150 mg PO DAILY 03/31/18 03/31/18 History Exam Vital signs: Vital Signs 04/01/18 10:21 04/01/18 10:31 04/01/18 10:41 Temperature Pulse Rate 87 86 85 Respiratory Rate 20 20 20 Blood Pressure 113/59 L 110/61 114/65 Pulse Oximetry 100 100 100 04/01/18 10:51 04/01/18 11:00 04/01/18 11:01 Temperature 98.4 F Pulse Rate 84 95 H 94 H Respiratory Rate 20 20 20 Blood Pressure 114/68 128/59 L Pulse Oximetry 100 99 99 04/01/18 11:08 04/01/18 11:11 04/01/18 11:15 Temperature Pulse Rate 95 H 96 H Respiratory Rate 20 20 20 Blood Pressure 132/65 Pulse Oximetry 99 100 100 04/01/18 11:21 04/01/18 11:31 04/01/18 11:41 Temperature Pulse Rate 94 H 95 H 93 H Respiratory Rate 22 20 20 Blood Pressure 134/69 124/70 125/69 Pulse Oximetry 100 100 100 04/01/18 11:51 04/01/18 12:00 04/01/18 12:01 Temperature 99.6 F Pulse Rate 95 H 96 H Respiratory Rate 20 20 20 Blood Pressure 132/73 115/56 L Pulse Oximetry 99 100 100 04/01/18 12:11 04/01/18 12:21 04/01/18 12:31 Temperature Pulse Rate 93 H 93 H 92 H Respiratory Rate 20 20 20 Blood Pressure 110/56 L 111/59 L 113/59 L Pulse Oximetry 100 100 100 04/01/18 12:41 04/01/18 12:51 04/01/18 13:00 Temperature Pulse Rate 90 92 H 91 H Respiratory Rate 20 20 21 Blood Pressure 120/64 130/67 Pulse Oximetry 100 100 100 04/01/18 13:01 04/01/18 13:11 04/01/18 13:21 Temperature Pulse Rate 89 94 H 98 H Respiratory Rate 22 20 20 Blood Pressure 114/71 130/81 128/78 Pulse Oximetry 100 100 100 04/01/18 13:31 04/01/18 13:41 04/01/18 13:51 Temperature Pulse Rate 99 H 100 H 101 H Respiratory Rate 20 21 20 Blood Pressure 142/79 H 144/81 H 117/69 Pulse Oximetry 100 100 100 04/01/18 13:52 04/01/18 14:00 04/01/18 14:11 Temperature Pulse Rate 101 H 107 H 102 H Respiratory Rate 20 21 20 Blood Pressure 117/66 119/63 Pulse Oximetry 100 99 100 04/01/18 14:21 04/01/18 14:31 04/01/18 14:41 Temperature Pulse Rate 103 H 108 H 113 H Respiratory Rate 20 20 20 Blood Pressure 139/76 144/77 H 143/79 H Pulse Oximetry 100 100 100 04/01/18 14:51 04/01/18 15:00 04/01/18 15:01 Temperature Pulse Rate 114 H 117 H 117 H Respiratory Rate 20 20 20 Blood Pressure 138/87 142/89 H Pulse Oximetry 100 100 100 04/01/18 15:11 04/01/18 15:21 04/01/18 15:31 Temperature Pulse Rate 118 H 120 H 122 H Respiratory Rate 20 20 20 Blood Pressure 142/76 H 144/77 H 150/78 H Pulse Oximetry 100 100 100 04/01/18 15:41 04/01/18 15:51 04/01/18 16:00 Temperature 100.6 F H Pulse Rate 123 H 127 H 126 H Respiratory Rate 20 21 20 Blood Pressure 150/78 H 145/78 H Pulse Oximetry 100 100 100 04/01/18 16:01 04/01/18 16:11 04/01/18 16:21 Temperature Pulse Rate 127 H 125 H 122 H Respiratory Rate 20 20 20 Blood Pressure 137/74 135/76 124/64 Pulse Oximetry 100 100 100 04/01/18 16:31 04/01/18 16:34 04/01/18 16:45 Temperature Pulse Rate 120 H 117 H 110 H Respiratory Rate 20 20 20 Blood Pressure 89/53 L 88/50 L 73/50 L Pulse Oximetry 100 100 98 04/01/18 16:53 04/01/18 16:56 04/01/18 17:00 Temperature Pulse Rate 106 H 104 H 102 H Respiratory Rate 20 20 20 Blood Pressure 90/54 L 93/53 L Pulse Oximetry 98 98 99 04/01/18 17:11 04/01/18 17:26 04/01/18 17:41 Temperature Pulse Rate 93 H 87 95 H Respiratory Rate 20 20 20 Blood Pressure 122/67 131/75 131/61 Pulse Oximetry 100 100 100 04/01/18 17:56 04/01/18 18:00 04/01/18 18:11 Temperature Pulse Rate 98 H 98 H 99 H Respiratory Rate 20 20 20 Blood Pressure 125/66 141/71 H Pulse Oximetry 100 100 100 04/01/18 18:26 04/01/18 18:41 04/01/18 18:56 Temperature Pulse Rate 98 H 93 H 93 H Respiratory Rate 20 20 20 Blood Pressure 131/75 124/74 122/65 Pulse Oximetry 100 100 100 04/01/18 19:00 04/01/18 19:11 04/01/18 19:26 Temperature Pulse Rate 91 H 93 H 92 H Respiratory Rate 16 16 16 Blood Pressure 119/66 118/63 Pulse Oximetry 100 100 100 04/01/18 19:41 04/01/18 19:56 04/01/18 20:00 Temperature 99.2 F Pulse Rate 93 H 97 H 102 H Respiratory Rate 16 20 19 Blood Pressure 125/64 124/67 Pulse Oximetry 100 98 98 04/01/18 20:11 04/01/18 20:12 04/01/18 20:26 Temperature Pulse Rate 103 H 100 H Respiratory Rate 17 16 16 Blood Pressure 131/69 140/70 Pulse Oximetry 98 99 99 04/01/18 20:57 04/01/18 21:00 04/01/18 21:28 Temperature Pulse Rate 119 H 113 H 107 H Respiratory Rate 19 16 16 Blood Pressure 167/80 H 144/72 H Pulse Oximetry 98 98 98 04/01/18 21:30 04/01/18 21:45 04/01/18 22:00 Temperature Pulse Rate 107 H 103 H 107 H Respiratory Rate 16 18 18 Blood Pressure 142/76 H 133/80 129/72 Pulse Oximetry 99 99 99 04/01/18 22:15 04/01/18 22:30 04/01/18 22:45 Temperature Pulse Rate 97 H 93 H 91 H Respiratory Rate 16 16 16 Blood Pressure 117/70 113/66 116/67 Pulse Oximetry 100 100 100 04/01/18 23:00 04/01/18 23:15 04/01/18 23:30 Temperature Pulse Rate 92 H 90 87 Respiratory Rate 16 16 16 Blood Pressure 120/69 117/67 115/68 Pulse Oximetry 100 100 100 04/01/18 23:45 04/02/18 00:00 04/02/18 00:15 Temperature 97.8 F Pulse Rate 87 84 84 Respiratory Rate 16 16 16 Blood Pressure 116/70 116/70 114/71 Pulse Oximetry 100 100 100 04/02/18 00:21 04/02/18 00:30 04/02/18 00:45 Temperature Pulse Rate 82 82 Respiratory Rate 16 16 16 Blood Pressure 115/71 115/72 Pulse Oximetry 100 100 100 04/02/18 01:00 04/02/18 01:15 04/02/18 01:30 Temperature Pulse Rate 84 85 87 Respiratory Rate 16 16 16 Blood Pressure 121/77 134/78 124/69 Pulse Oximetry 100 100 100 04/02/18 01:45 04/02/18 02:00 04/02/18 02:15 Temperature Pulse Rate 87 87 84 Respiratory Rate 16 16 16 Blood Pressure 117/65 115/67 115/69 Pulse Oximetry 100 100 100 04/02/18 02:30 04/02/18 02:45 04/02/18 03:00 Temperature Pulse Rate 84 87 86 Respiratory Rate 16 17 16 Blood Pressure 116/70 120/70 119/69 Pulse Oximetry 100 100 100 04/02/18 03:15 04/02/18 03:30 04/02/18 04:00 Temperature 97.9 F Pulse Rate 85 88 91 H Respiratory Rate 16 16 33 H Blood Pressure 118/70 109/64 Pulse Oximetry 100 100 100 04/02/18 04:07 04/02/18 04:15 04/02/18 04:21 Temperature Pulse Rate 104 H 105 H 111 H Respiratory Rate 17 16 18 Blood Pressure 175/79 H 159/83 H Pulse Oximetry 100 100 04/02/18 04:24 04/02/18 04:30 04/02/18 04:45 Temperature Pulse Rate 110 H 109 H Respiratory Rate 17 16 Blood Pressure 153/81 H 149/81 H Pulse Oximetry 100 100 100 04/02/18 05:00 04/02/18 05:15 04/02/18 05:30 Temperature Pulse Rate 106 H 102 H 100 H Respiratory Rate 16 16 16 Blood Pressure 132/74 124/72 133/67 Pulse Oximetry 99 100 100 04/02/18 05:45 04/02/18 06:00 04/02/18 06:15 Temperature Pulse Rate 97 H 93 H 89 Respiratory Rate 16 16 16 Blood Pressure 111/62 104/62 100/57 L Pulse Oximetry 99 99 100 04/02/18 06:30 04/02/18 06:45 04/02/18 07:00 Temperature Pulse Rate 87 87 86 Respiratory Rate 16 16 16 Blood Pressure 102/59 L 105/62 115/63 Pulse Oximetry 100 100 100 04/02/18 07:15 04/02/18 07:30 04/02/18 07:45 Temperature Pulse Rate 86 87 80 Respiratory Rate 16 16 16 Blood Pressure 118/70 121/71 142/69 H Pulse Oximetry 100 100 100 04/02/18 08:00 04/02/18 08:15 04/02/18 08:30 Temperature 98.7 F Pulse Rate 92 H 93 H 93 H Respiratory Rate 16 16 16 Blood Pressure 132/73 133/76 127/71 Pulse Oximetry 100 100 100 04/02/18 08:44 04/02/18 08:45 04/02/18 08:47 Temperature Pulse Rate 92 H 92 H Respiratory Rate 16 16 16 Blood Pressure 130/73 Pulse Oximetry 100 100 04/02/18 09:00 04/02/18 09:15 04/02/18 09:30 Temperature Pulse Rate 93 H 93 H 92 H Respiratory Rate 16 16 16 Blood Pressure 126/71 130/72 119/62 Pulse Oximetry 100 100 100 Intake & Output 04/01/18 04/02/18 04/02/18 18:59 06:59 18:59 Intake Total 2672.5 / 2672.5 2342.5 / 2342.5 Output Total 700 / 700 1250 / 1250 Balance 1972.5 / 1972.5 1092.5 / 1092.5 Weight 86.3 kg Intake: IV 2672.5 / 2672.5 2342.5 / 2342.5 Versed Inj 100 mg In 100 ml @ 2 100 / 100 MG/HR 2 mls/hr IV.CONT TITRATE PRN Rx#:[id number] NS Inj 1,000 ML @ 125 mls/hr IV 1625 / 1625 1375 / 1375 .CONT .Q8H JE Rx#:[id number] Maxipime Inj 2,000 MG In NS Inj 100 / 100 100 ML @ 200 mls/hr IV.SIG Q8H JE Rx#:[id number] Levophed-Dextrose 4 mg/250 ml 250 / 250 250 / 250 Drip 4 mg In 250 ml @ 2 MCG/MIN 7.5 mls/hr IV.SIG TITRATE PRN Rx#:[id number] Zosyn 3.375 GM Premix 3.375 gm 100 / 100 100 / 100 In 50 ml @ 100 mls/hr IV.SIG Q6HR JE Rx#:[id number] Vancomycin Inj 1,750 MG In NS 517.5 / 517.5 517.5 / 517.5 Inj 500 ML @ 250 mls/hr IV.SIG Q12H JE Rx#:[id number] Output: Urine Amount (Catheter) 700 / 700 1250 / 1250 Indwelling Urethral Catheter 700 / 700 1250 / 1250 - Routine Neurological Exam Intubated, on sedation. Eyes open with stimulation. Moves all extremities. His left neck incision has healed beautifully, there is no erythema, separation , drainage, etc. There is no palpable fluid collection within the neck. Results - Laboratory Findings CBC and BMP: 04/02/18 04:25 04/02/18 04:25 Abnormal lab findings: Abnormal Labs 03/31/18 03/31/18 03/31/18 12:30 12:30 12:54 WBC 12.8 H RBC Hgb Hct MPV Neut % (Auto) 84.7 H Lymph % (Auto) 4.2 L [place] % (Auto) 10.8 H Neut # (Auto) 10.8 H Lymph # (Auto) 0.5 L [place] # (Auto) 1.4 H O2 Saturation ABG pH ABG pCO2 ABG pO2 ABG HCO3 ABG O2 Content ABG Base Excess VBG pH VBG pCO2 VBG pO2 VBG HCO3 VBG O2 Saturation VBG Base Excess Sodium 129 L Chloride 89 L Carbon Dioxide 37.2 H Anion Gap 3 L BUN Estimated GFR POC Glucose 119 H Random Glucose 138 H Lactic Acid Calcium Total Bilirubin Ammonia CK-MB (CK-2) 9.7 H Troponin I Less than 0.02 L Total Protein Albumin Lipase Folate Greater than 20.0 H Urine Protein Urine Occult Blood Urine RBC CSF Gross Blood (1) CSF Gross Blood (2) CSF RBC (2) CSF RBC (4) CSF Total Protein 03/31/18 03/31/18 03/31/18 14:55 15:50 16:03 WBC RBC Hgb Hct MPV Neut % (Auto) Lymph % (Auto) [place] % (Auto) Neut # (Auto) Lymph # (Auto) [place] # (Auto) O2 Saturation ABG pH 7.08 L* ABG pCO2 148 H* ABG pO2 391 H ABG HCO3 41 H ABG O2 Content 22.4 H ABG Base Excess 11.2 H VBG pH VBG pCO2 VBG pO2 VBG HCO3 VBG O2 Saturation VBG Base Excess Sodium Chloride Carbon Dioxide Anion Gap BUN Estimated GFR POC Glucose 119 H Random Glucose Lactic Acid Calcium Total Bilirubin Ammonia CK-MB (CK-2) Troponin I Total Protein Albumin Lipase Folate Urine Protein 30 H Urine Occult Blood Moderate H Urine RBC 27 H CSF Gross Blood (1) CSF Gross Blood (2) CSF RBC (2) CSF RBC (4) CSF Total Protein 03/31/18 03/31/18 03/31/18 18:32 19:09 19:09 WBC RBC Hgb Hct MPV Neut % (Auto) Lymph % (Auto) [place] % (Auto) Neut # (Auto) Lymph # (Auto) [place] # (Auto) O2 Saturation 89 L* ABG pH ABG pCO2 52 H* ABG pO2 56 L* ABG HCO3 31 H ABG O2 Content ABG Base Excess 6.4 H VBG pH VBG pCO2 VBG pO2 VBG HCO3 VBG O2 Saturation VBG Base Excess Sodium Chloride Carbon Dioxide Anion Gap BUN Estimated GFR POC Glucose Random Glucose Lactic Acid 2.7 H Calcium Total Bilirubin Ammonia 71 H CK-MB (CK-2) Troponin I Total Protein Albumin Lipase Folate Urine Protein Urine Occult Blood Urine RBC CSF Gross Blood (1) CSF Gross Blood (2) CSF RBC (2) CSF RBC (4) CSF Total Protein 03/31/18 04/01/18 04/01/18 23:31 00:00 03:53 WBC RBC Hgb Hct MPV Neut % (Auto) Lymph % (Auto) [place] % (Auto) Neut # (Auto) Lymph # (Auto) [place] # (Auto) O2 Saturation ABG pH 7.48 H ABG pCO2 37 L ABG pO2 240 H ABG HCO3 27 H ABG O2 Content ABG Base Excess 3.7 H VBG pH VBG pCO2 VBG pO2 VBG HCO3 VBG O2 Saturation VBG Base Excess Sodium Chloride Carbon Dioxide Anion Gap BUN 23 H Estimated GFR 83 L POC Glucose Random Glucose Lactic Acid 2.4 H Calcium 8.3 L Total Bilirubin Ammonia CK-MB (CK-2) Troponin I Total Protein 5.5 L D Albumin 3.0 L D Lipase Folate Urine Protein Urine Occult Blood Urine RBC CSF Gross Blood (1) CSF Gross Blood (2) CSF RBC (2) CSF RBC (4) CSF Total Protein 04/01/18 04/01/18 04/01/18 03:53 17:08 18:15 WBC 17.0 H RBC 4.49 L Hgb Hct MPV Neut % (Auto) 88.0 H Lymph % (Auto) 4.4 L [place] % (Auto) Neut # (Auto) 14.9 H Lymph # (Auto) 0.8 L [place] # (Auto) 1.3 H O2 Saturation ABG pH ABG pCO2 ABG pO2 ABG HCO3 ABG O2 Content ABG Base Excess VBG pH 7.43 H VBG pCO2 42 L VBG pO2 46 H VBG HCO3 27 H VBG O2 Saturation 81 H VBG Base Excess 3.4 H Sodium Chloride Carbon Dioxide Anion Gap BUN Estimated GFR POC Glucose Random Glucose Lactic Acid Calcium Total Bilirubin Ammonia CK-MB (CK-2) Troponin I Total Protein Albumin Lipase Folate Urine Protein Urine Occult Blood Urine RBC CSF Gross Blood (1) CSF Gross Blood (2) CSF RBC (2) CSF RBC (4) CSF Total Protein 49.1 H 04/01/18 04/01/18 04/01/18 22:15 Unknown Unknown WBC RBC Hgb Hct MPV Neut % (Auto) Lymph % (Auto) [place] % (Auto) Neut # (Auto) Lymph # (Auto) [place] # (Auto) O2 Saturation ABG pH ABG pCO2 ABG pO2 ABG HCO3 ABG O2 Content ABG Base Excess VBG pH VBG pCO2 VBG pO2 VBG HCO3 VBG O2 Saturation VBG Base Excess Sodium Chloride Carbon Dioxide Anion Gap BUN Estimated GFR POC Glucose Random Glucose Lactic Acid Calcium 7.7 L Total Bilirubin 1.1 H Ammonia CK-MB (CK-2) Troponin I Total Protein 5.3 L Albumin 2.5 L Lipase Folate Urine Protein Urine Occult Blood Urine RBC CSF Gross Blood (1) Trace A CSF Gross Blood (2) Trace A CSF RBC (2) 89 H CSF RBC (4) 81 H CSF Total Protein 04/02/18 04/02/18 04/02/18 04:25 04:25 04:51 WBC 17.7 H RBC 4.01 L Hgb 12.3 L Hct 37.6 L MPV 6.8 L Neut % (Auto) 87.2 H Lymph % (Auto) 6.0 L [place] % (Auto) Neut # (Auto) 15.4 H Lymph # (Auto) [place] # (Auto) 1.1 H O2 Saturation ABG pH 7.34 L ABG pCO2 49 H ABG pO2 ABG HCO3 ABG O2 Content ABG Base Excess VBG pH VBG pCO2 VBG pO2 VBG HCO3 VBG O2 Saturation VBG Base Excess Sodium Chloride Carbon Dioxide Anion Gap BUN Estimated GFR POC Glucose Random Glucose Lactic Acid Calcium 8.1 L Total Bilirubin Ammonia CK-MB (CK-2) Troponin I Total Protein 5.8 L Albumin 2.6 L Lipase Folate Urine Protein Urine Occult Blood Urine RBC CSF Gross Blood (1) CSF Gross Blood (2) CSF RBC (2) CSF RBC (4) CSF Total Protein 04/02/18 09:20 WBC RBC Hgb Hct MPV Neut % (Auto) Lymph % (Auto) [place] % (Auto) Neut # (Auto) Lymph # (Auto) [place] # (Auto) O2 Saturation ABG pH ABG pCO2 ABG pO2 ABG HCO3 ABG O2 Content ABG Base Excess VBG pH VBG pCO2 VBG pO2 VBG HCO3 VBG O2 Saturation VBG Base Excess Sodium Chloride Carbon Dioxide Anion Gap BUN Estimated GFR POC Glucose Random Glucose Lactic Acid Calcium Total Bilirubin Ammonia CK-MB (CK-2) Troponin I Less than 0.02 L Total Protein Albumin Lipase 60 L Folate Urine Protein Urine Occult Blood Urine RBC CSF Gross Blood (1) CSF Gross Blood (2) CSF RBC (2) CSF RBC (4) CSF Total Protein - Diagnostic Findings Additional findings: CT head: No acute findings MRI cervical spine: No obvious abscess or other postsurgical complication. There is pooling of fluids above the ET tube cuff consistent with his intubation. There is a small amount of fluid in the prevertebral space, but that is fairly common following ACDF. There is no canal compromise, hematoma, etc. Assessment and Plan - Plan Mr. Vásquez has had 6 weeks of what sounds like progressive hypercarbic respiratory failure and difficulty moving air at home. This culminated in intubation and hospitalization in the ICU. It is difficult to directly attribute this to a surgical complication given that he did well for 3 days at home, but the timing is such that we must consider that possibility. Following C5/6 ACDF, airway compromise could occur due to phrenic nerve injury, vocal cord paralysis, or laryngomalacia/tracheomalacia from cuff pressure or retraction. His diaphragms appear symmetric on his chest x-ray prior to intubation, but could consider a fluoroscopic sniff test for that. Vocal cord paralysis and tracheomalacia would require endoscopic assessment, likely by ENT , and are difficult to diagnose in the context of intubation. He might need to be extubated first, when safe, and then scoped. I do not see obvious evidence of a surgical site infection to explain his leukocytosis; would favor possible aspiration or pneumonitis. He is on broad-spectrum coverage empirically, which should hopefully improve this. Otherwise agree with continuing supportive care , etc. I discussed this in person with the Critical Care service and they are in agreement. I also discussed this with his and daughter at the bedside and they were also in agreement with this plan.
[2018-04-02] MEDS: Vancomycin Inj 1,750 MG in Sodium Chlor 0.9% Inj 500 ML IV.SIG SCH ×2 (10:54→22:19)
--- NOTE | 2018-04-02 11:00 | P.PNNEU ---
Subjective Subjective Comments: The patient is seen with family at bed side, no reported acute events over night Intubated and sedated EEG revealed an encephalopathic pattern CSF analysis was unremarkable, pending culture and HSV PCR results Active Medications: Active Medications Acetaminophen (Tylenol) 650 mg PO Q4H PRN PRN Reason: Temp > 100.4 Last Admin: 04/01/18 15:53 Dose: 650 mg Al Hydroxide/Mg Hydroxide (Milk Of Magnesia Liq) 30 ml PO Q12H PRN PRN Reason: Mild Constipation Albuterol (Duoneb Neb (Prn)) 1 ampul NEB Q4HR NEB PRN PRN Reason: SHORTNESS OF BREATH Albuterol (Duoneb Neb (Je)) 1 ampul NEB Q6HR NEB [facility] Last Admin: 04/02/18 08:44 Dose: 1 ampul Aspirin (Ecotrin) 81 mg PO DAILY [facility] Last Admin: 04/02/18 08:04 Dose: 81 mg Chlorhexidine Gluconate (Peridex 0.12% Oral Kit) 15 ml OROPHARYNG BID@0800, 2000 [facility] Last Admin: 04/02/18 08:04 Dose: 15 ml Chlorhexidine Gluconate (Chlorhexidine 2% Cloth) 3 pack TOPICAL DAILY@0400 [facility] Stop: 04/06/18 03:59 Last Admin: 04/02/18 05:23 Dose: 3 pack Chlorhexidine Gluconate (Chlorhexidine 2% Cloth) 3 pack TOPICAL DAILY@0400 PRN PRN Reason: Extra cloth needed Stop: 04/06/18 03:59 Enoxaparin Sodium (Lovenox Inj) 30 mg SQ Q24H [facility] Last Admin: 04/01/18 13:45 Dose: 30 mg Famotidine (Pepcid Pf Inj) 20 mg IV.PUSH Q12HR [facility] Last Admin: 04/02/18 08:04 Dose: 20 mg Sodium Chloride (Ns Inj) 1,000 mls @ 125 mls/hr IV.CONT .Q8H [facility] Last Admin: 04/02/18 05:23 Dose: 125 mls/hr Fentanyl (Fentanyl 10 Mcg/Ml Premix Drip) 2,500 mcg in 250 mls @ 5 mls/hr IV.SIG TITRATE PRN; Protocol PRN Reason: Per Protocol Last Titration: 04/02/18 06:02 Dose: 50 mcg/hr, 5 mls/hr Midazolam HCl (Versed Inj) 100 mg in 100 mls @ 2 mls/hr IV.CONT TITRATE PRN; Protocol PRN Reason: See protocol Last Titration: 04/02/18 06:02 Dose: 3 mg/hr, 3 mls/hr Norepinephrine Bitartrate (Levophed-Dextrose 4 Mg/250 Ml Drip) 4 mg in 250 mls @ 7.5 mls/hr IV.SIG TITRATE PRN; Protocol PRN Reason: Per Protocol Last Admin: 04/02/18 05:23 Dose: 2 mcg/min, 7.5 mls/hr Vancomycin HCl 1,750 mg/ (Sodium Chloride) 517.5 mls @ 250 mls/hr IV.SIG Q12H [facility] Last Infusion: 04/02/18 01:18 Dose: Infused Piperacillin/Tazobactam/Dextrose (Zosyn 3.375 Gm Premix) 3.375 gm in 50 mls @ 100 mls/hr IV.SIG Q6HR [facility] Last Infusion: 04/02/18 06:02 Dose: Infused Lactulose (Lactulose Liq) 30 ml PO TID [facility] Last Admin: 04/02/18 08:04 Dose: 30 ml Levothyroxine Sodium (Synthroid) 125 mcg PO DAILY@0600 [facility] Last Admin: 04/02/18 05:23 Dose: 125 mcg Miscellaneous Information ([facility] Ordered Lab Info) 0 each OTHER ONCE ONE Stop: 04/03/18 09:46 Miscellaneous Medication () 1 each OROPHARYNG 0000,0400,1200,1600 [facility] Last Admin: 04/02/18 05:24 Dose: 1 each Ondansetron HCl (Zofran Inj) 4 mg IV.PUSH Q6H PRN PRN Reason: NAUSEA OR VOMITING Pharmacy Profile Note (Vancomycin Consult Pharmacy) 1 each OTHER UNSCH PRN PRN Reason: Pharmacy to dose Pravastatin Sodium (Pravachol) 40 mg PO [facility] Last Admin: 04/01/18 20:47 Dose: 40 mg Senna/Docusate Sodium (Celine-Colace) 1 tab PO BID [facility] Last Admin: 04/02/18 08:04 Dose: 1 tab Sodium Chloride (Ns Flush) 2 ml IV.FLUSH BID [facility] Last Admin: 04/02/18 08:04 Dose: 2 ml Sodium Chloride (Ns Flush) 2 ml IV.FLUSH PRN PRN PRN Reason: FLUSH AFTER USING IV ACCESS Terbutaline Sulfate (Brethine Inj) 1 mg SQ UNSCH PRN PRN Reason: For Extravasation Allergies/Adverse Reactions: Allergies Allergy/AdvReac Type Severity Reaction Status Date / Time Sulfa (Sulfonamide Allergy Severe Nausea Verified 02/15/18 05:02 Antibiotics) Physical Exam Vital signs: Vital Signs 04/01/18 11:00 04/01/18 11:01 04/01/18 11:08 Temperature Pulse Rate 95 H 94 H Respiratory Rate 20 20 20 Blood Pressure 128/59 L Pulse Oximetry 99 99 99 04/01/18 11:11 04/01/18 11:15 04/01/18 11:21 Temperature Pulse Rate 95 H 96 H 94 H Respiratory Rate 20 20 22 Blood Pressure 132/65 134/69 Pulse Oximetry 100 100 100 04/01/18 11:31 04/01/18 11:41 04/01/18 11:51 Temperature Pulse Rate 95 H 93 H Respiratory Rate 20 20 20 Blood Pressure 124/70 125/69 132/73 Pulse Oximetry 100 100 99 04/01/18 12:00 04/01/18 12:01 04/01/18 12:11 Temperature 99.6 F Pulse Rate 95 H 96 H 93 H Respiratory Rate 20 20 20 Blood Pressure 115/56 L 110/56 L Pulse Oximetry 100 100 100 04/01/18 12:21 04/01/18 12:31 04/01/18 12:41 Temperature Pulse Rate 93 H 92 H 90 Respiratory Rate 20 20 20 Blood Pressure 111/59 L 113/59 L 120/64 Pulse Oximetry 100 100 100 04/01/18 12:51 04/01/18 13:00 04/01/18 13:01 Temperature Pulse Rate 92 H 91 H 89 Respiratory Rate 20 21 22 Blood Pressure 130/67 114/71 Pulse Oximetry 100 100 100 04/01/18 13:11 04/01/18 13:21 04/01/18 13:31 Temperature Pulse Rate 94 H 98 H 99 H Respiratory Rate 20 20 20 Blood Pressure 130/81 128/78 142/79 H Pulse Oximetry 100 100 100 04/01/18 13:41 04/01/18 13:51 04/01/18 13:52 Temperature Pulse Rate 100 H 101 H 101 H Respiratory Rate 21 20 20 Blood Pressure 144/81 H 117/69 117/66 Pulse Oximetry 100 100 100 04/01/18 14:00 04/01/18 14:11 04/01/18 14:21 Temperature Pulse Rate 107 H 102 H 103 H Respiratory Rate 21 20 20 Blood Pressure 119/63 139/76 Pulse Oximetry 99 100 100 04/01/18 14:31 04/01/18 14:41 04/01/18 14:51 Temperature Pulse Rate 108 H 113 H 114 H Respiratory Rate 20 20 20 Blood Pressure 144/77 H 143/79 H 138/87 Pulse Oximetry 100 100 100 04/01/18 15:00 04/01/18 15:01 04/01/18 15:11 Temperature Pulse Rate 117 H 117 H 118 H Respiratory Rate 20 20 20 Blood Pressure 142/89 H 142/76 H Pulse Oximetry 100 100 100 04/01/18 15:21 04/01/18 15:31 04/01/18 15:41 Temperature Pulse Rate 120 H 122 H 123 H Respiratory Rate 20 20 20 Blood Pressure 144/77 H 150/78 H 150/78 H Pulse Oximetry 100 100 100 04/01/18 15:51 04/01/18 16:00 04/01/18 16:01 Temperature 100.6 F H Pulse Rate 127 H 126 H 127 H Respiratory Rate 21 20 20 Blood Pressure 145/78 H 137/74 Pulse Oximetry 100 100 100 04/01/18 16:11 04/01/18 16:21 04/01/18 16:31 Temperature Pulse Rate 125 H 122 H 120 H Respiratory Rate 20 20 20 Blood Pressure 135/76 124/64 89/53 L Pulse Oximetry 100 100 100 04/01/18 16:34 04/01/18 16:45 04/01/18 16:53 Temperature Pulse Rate 117 H 110 H 106 H Respiratory Rate 20 20 20 Blood Pressure 88/50 L 73/50 L 90/54 L Pulse Oximetry 100 98 98 04/01/18 16:56 04/01/18 17:00 04/01/18 17:11 Temperature Pulse Rate 104 H 102 H 93 H Respiratory Rate 20 20 20 Blood Pressure 93/53 L 122/67 Pulse Oximetry 98 99 100 04/01/18 17:26 04/01/18 17:41 04/01/18 17:56 Temperature Pulse Rate 87 95 H 98 H Respiratory Rate 20 20 20 Blood Pressure 131/75 131/61 125/66 Pulse Oximetry 100 100 100 04/01/18 18:00 04/01/18 18:11 04/01/18 18:26 Temperature Pulse Rate 98 H 99 H 98 H Respiratory Rate 20 20 20 Blood Pressure 141/71 H 131/75 Pulse Oximetry 100 100 100 04/01/18 18:41 04/01/18 18:56 04/01/18 19:00 Temperature Pulse Rate 93 H 93 H 91 H Respiratory Rate 20 20 16 Blood Pressure 124/74 122/65 Pulse Oximetry 100 100 100 04/01/18 19:11 04/01/18 19:26 04/01/18 19:41 Temperature Pulse Rate 93 H 92 H 93 H Respiratory Rate 16 16 16 Blood Pressure 119/66 118/63 125/64 Pulse Oximetry 100 100 100 04/01/18 19:56 04/01/18 20:00 04/01/18 20:11 Temperature 99.2 F Pulse Rate 97 H 102 H 103 H Respiratory Rate 20 19 17 Blood Pressure 124/67 131/69 Pulse Oximetry 98 98 98 04/01/18 20:12 04/01/18 20:26 04/01/18 20:57 Temperature Pulse Rate 100 H 119 H Respiratory Rate 16 16 19 Blood Pressure 140/70 167/80 H Pulse Oximetry 99 99 98 04/01/18 21:00 04/01/18 21:28 04/01/18 21:30 Temperature Pulse Rate 113 H 107 H 107 H Respiratory Rate 16 16 16 Blood Pressure 144/72 H 142/76 H Pulse Oximetry 98 98 99 04/01/18 21:45 04/01/18 22:00 04/01/18 22:15 Temperature Pulse Rate 103 H 107 H 97 H Respiratory Rate 18 18 16 Blood Pressure 133/80 129/72 117/70 Pulse Oximetry 99 99 100 04/01/18 22:30 04/01/18 22:45 04/01/18 23:00 Temperature Pulse Rate 93 H 91 H 92 H Respiratory Rate 16 16 16 Blood Pressure 113/66 116/67 120/69 Pulse Oximetry 100 100 100 04/01/18 23:15 04/01/18 23:30 04/01/18 23:45 Temperature Pulse Rate 90 87 87 Respiratory Rate 16 16 16 Blood Pressure 117/67 115/68 116/70 Pulse Oximetry 100 100 100 04/02/18 00:00 04/02/18 00:15 04/02/18 00:21 Temperature 97.8 F Pulse Rate 84 84 Respiratory Rate 16 16 16 Blood Pressure 116/70 114/71 Pulse Oximetry 100 100 100 04/02/18 00:30 04/02/18 00:45 04/02/18 01:00 Temperature Pulse Rate 82 82 84 Respiratory Rate 16 16 16 Blood Pressure 115/71 115/72 121/77 Pulse Oximetry 100 100 100 04/02/18 01:15 04/02/18 01:30 04/02/18 01:45 Temperature Pulse Rate 85 87 87 Respiratory Rate 16 16 16 Blood Pressure 134/78 124/69 117/65 Pulse Oximetry 100 100 100 04/02/18 02:00 04/02/18 02:15 04/02/18 02:30 Temperature Pulse Rate 87 84 84 Respiratory Rate 16 16 16 Blood Pressure 115/67 115/69 116/70 Pulse Oximetry 100 100 100 04/02/18 02:45 04/02/18 03:00 04/02/18 03:15 Temperature Pulse Rate 87 86 85 Respiratory Rate 17 16 16 Blood Pressure 120/70 119/69 118/70 Pulse Oximetry 100 100 100 04/02/18 03:30 04/02/18 04:00 04/02/18 04:07 Temperature 97.9 F Pulse Rate 88 91 H 104 H Respiratory Rate 16 33 H 17 Blood Pressure 109/64 175/79 H Pulse Oximetry 100 100 100 04/02/18 04:15 04/02/18 04:21 04/02/18 04:24 Temperature Pulse Rate 105 H 111 H Respiratory Rate 16 18 Blood Pressure 159/83 H Pulse Oximetry 100 100 04/02/18 04:30 04/02/18 04:45 04/02/18 05:00 Temperature Pulse Rate 110 H 109 H 106 H Respiratory Rate 17 16 16 Blood Pressure 153/81 H 149/81 H 132/74 Pulse Oximetry 100 100 99 04/02/18 05:15 04/02/18 05:30 04/02/18 05:45 Temperature Pulse Rate 102 H 100 H 97 H Respiratory Rate 16 16 16 Blood Pressure 124/72 133/67 111/62 Pulse Oximetry 100 100 99 04/02/18 06:00 04/02/18 06:15 04/02/18 06:30 Temperature Pulse Rate 93 H 89 87 Respiratory Rate 16 16 16 Blood Pressure 104/62 100/57 L 102/59 L Pulse Oximetry 99 100 100 04/02/18 06:45 04/02/18 07:00 04/02/18 07:15 Temperature Pulse Rate 87 86 86 Respiratory Rate 16 16 16 Blood Pressure 105/62 115/63 118/70 Pulse Oximetry 100 100 100 04/02/18 07:30 04/02/18 07:45 04/02/18 08:00 Temperature 98.7 F Pulse Rate 87 80 92 H Respiratory Rate 16 16 16 Blood Pressure 121/71 142/69 H 132/73 Pulse Oximetry 100 100 100 04/02/18 08:15 04/02/18 08:30 04/02/18 08:44 Temperature Pulse Rate 93 H 93 H Respiratory Rate 16 16 16 Blood Pressure 133/76 127/71 Pulse Oximetry 100 100 100 04/02/18 08:45 04/02/18 08:47 04/02/18 09:00 Temperature Pulse Rate 92 H 92 H 93 H Respiratory Rate 16 16 16 Blood Pressure 130/73 126/71 Pulse Oximetry 100 100 04/02/18 09:15 04/02/18 09:30 04/02/18 09:45 Temperature Pulse Rate 93 H 92 H 92 H Respiratory Rate 16 16 16 Blood Pressure 130/72 119/62 119/66 Pulse Oximetry 100 100 100 04/02/18 10:00 04/02/18 10:17 04/02/18 10:30 Temperature Pulse Rate 91 H 94 H Respiratory Rate 16 20 16 Blood Pressure 114/62 129/68 121/70 Pulse Oximetry 100 89 L 100 Intake & Output 04/01/18 04/02/18 04/02/18 18:59 06:59 18:59 Intake Total 2672.5 / 2672.5 2342.5 / 2342.5 Output Total 700 / 700 1250 / 1250 Balance 1971.5 / 1971.5 1092.5 / 1092.5 Weight 86.3 kg Intake: IV 2672.5 / 2672.5 2342.5 / 2342.5 Versed Inj 100 mg In 100 ml @ 2 100 / 100 MG/HR 2 mls/hr IV.CONT TITRATE PRN Rx#:[id number] NS Inj 1,000 ML @ 125 mls/hr IV 1625 / 1625 1375 / 1375 .CONT .Q8H [facility] Rx#:[id number] Maxipime Inj 2,000 MG In NS Inj 100 / 100 100 ML @ 200 mls/hr IV.SIG Q8H [facility] Rx#:[id number] Levophed-Dextrose 4 mg/250 ml 250 / 250 250 / 250 Drip 4 mg In 250 ml @ 2 MCG/MIN 7.5 mls/hr IV.SIG TITRATE PRN Rx#:[id number] Zosyn 3.375 GM Premix 3.375 gm 100 / 100 100 / 100 In 50 ml @ 100 mls/hr IV.SIG Q6HR [facility] Rx#:[id number] Vancomycin Inj 1,750 MG In NS 517.5 / 517.5 517.5 / 517.5 Inj 500 ML @ 250 mls/hr IV.SIG Q12H [facility] Rx#:[id number] Output: Urine Amount (Catheter) 700 / 700 1250 / 1250 Indwelling Urethral Catheter 700 / 700 1250 / 1250 Narrative: intubated, sedated family at bed side pupils are 2 mm reacting to light No gaze deviation withdraws b/l LE to plantar stimulation, plantars are b/l downgoing - Urinary Catheter Management Indwelling Urethral Catheter Cath placed during this visit: yes Reason for continuing: Hourly intake/output Insertion date: 03/31/18 Insertion time: 18:00 Objective Laboratory Results - last 24 hr 04/01/18 04/01/18 04/01/18 13:15 17:08 18:15 WBC RBC Hgb Hct MCV MCH MCHC RDW Plt Count MPV Neut % (Auto) Lymph % (Auto) Atkinson % (Auto) Eos % (Auto) Baso % (Auto) Neut # (Auto) Lymph # (Auto) Atkinson # (Auto) Eos # (Auto) Baso # (Auto) WBC Differential Differential Comment Puncture Site Left brachial Patient Temperature 98.6 O2 Saturation ABG pH ABG pCO2 ABG pO2 ABG HCO3 ABG O2 Content ABG Base Excess ABG Methemoglobin David Test VBG pH 7.43 H VBG pCO2 42 L VBG pO2 46 H VBG HCO3 27 H VBG O2 Saturation 81 H VBG O2 Content 13.9 VBG Base Excess 3.4 H VBG Carboxyhemoglobin 0.9 VBG Methemoglobin 1.9 Hemoglobin 12.2 Carboxyhemoglobin O2 Delivery Device Ventilator Vent Setting Prvc Inspired O2 55 Critical Value No Sodium Potassium Chloride Carbon Dioxide Anion Gap BUN Creatinine Estimated GFR Random Glucose Calcium Total Bilirubin GGT AST ALT Alkaline Phosphatase Ammonia Total Creatine Kinase Troponin I 0.04 B-Natriuretic Peptide Total Protein Albumin Lipase TSH CSF Volume (1) CSF Supernat Color (1) CSF Gross Blood (1) CSF Volume (2) CSF Supernat Color (2) CSF Gross Blood (2) CSF WBC (2) CSF RBC (2) CSF Volume (3) CSF Supernat Color (3) CSF Gross Blood (3) CSF Volume (4) CSF Supernat Color (4) CSF Gross Blood (4) CSF WBC (4) CSF RBC (4) CSF Neutrophils % CSF Lymphocytes % CSF Monocytes % CSF Glucose 59 CSF LDH 24 CSF Lactic Acid 2.0 CSF Total Protein 49.1 H 04/01/18 04/01/18 04/01/18 22:15 Unknown Unknown WBC RBC Hgb Hct MCV MCH MCHC RDW Plt Count MPV Neut % (Auto) Lymph % (Auto) Atkinson % (Auto) Eos % (Auto) Baso % (Auto) Neut # (Auto) Lymph # (Auto) Atkinson # (Auto) Eos # (Auto) Baso # (Auto) WBC Differential Differential Comment Puncture Site Patient Temperature O2 Saturation ABG pH ABG pCO2 ABG pO2 ABG HCO3 ABG O2 Content ABG Base Excess ABG Methemoglobin David Test VBG pH VBG pCO2 VBG pO2 VBG HCO3 VBG O2 Saturation VBG O2 Content VBG Base Excess VBG Carboxyhemoglobin VBG Methemoglobin Hemoglobin Carboxyhemoglobin O2 Delivery Device Vent Setting Inspired O2 Critical Value Sodium 140 Potassium 3.5 Chloride 107 Carbon Dioxide 26.0 Anion Gap 7 BUN 17 Creatinine 0.76 Estimated GFR Greater than 89 Random Glucose 86 Calcium 7.7 L Total Bilirubin 1.1 H GGT AST 29 ALT 53 Alkaline Phosphatase 50 Ammonia Total Creatine Kinase Troponin I B-Natriuretic Peptide Total Protein 5.3 L Albumin 2.5 L Lipase TSH CSF Volume (1) CSF Supernat Color (1) CSF Gross Blood (1) CSF Volume (2) CSF Supernat Color (2) CSF Gross Blood (2) CSF WBC (2) CSF RBC (2) CSF Volume (3) CSF Supernat Color (3) CSF Gross Blood (3) CSF Volume (4) CSF Supernat Color (4) CSF Gross Blood (4) CSF WBC (4) CSF RBC (4) CSF Neutrophils % CSF Lymphocytes % CSF Monocytes % CSF Glucose CSF LDH Cancelled CSF Lactic Acid Cancelled CSF Total Protein 04/01/18 04/01/18 04/01/18 Unknown Unknown Unknown WBC RBC Hgb Hct MCV MCH MCHC RDW Plt Count MPV Neut % (Auto) Lymph % (Auto) Atkinson % (Auto) Eos % (Auto) Baso % (Auto) Neut # (Auto) Lymph # (Auto) Atkinson # (Auto) Eos # (Auto) Baso # (Auto) WBC Differential Differential Comment Puncture Site Patient Temperature O2 Saturation ABG pH ABG pCO2 ABG pO2 ABG HCO3 ABG O2 Content ABG Base Excess ABG Methemoglobin David Test VBG pH VBG pCO2 VBG pO2 VBG HCO3 VBG O2 Saturation VBG O2 Content VBG Base Excess VBG Carboxyhemoglobin VBG Methemoglobin Hemoglobin Carboxyhemoglobin O2 Delivery Device Vent Setting Inspired O2 Critical Value Sodium Potassium Chloride Carbon Dioxide Anion Gap BUN Creatinine Estimated GFR Random Glucose Calcium Total Bilirubin GGT AST ALT Alkaline Phosphatase Ammonia Total Creatine Kinase Troponin I B-Natriuretic Peptide Total Protein Albumin Lipase TSH CSF Volume (1) 2.0 CSF Supernat Color (1) Clear CSF Gross Blood (1) Trace A CSF Volume (2) 2.0 CSF Supernat Color (2) Clear CSF Gross Blood (2) Trace A CSF WBC (2) 0 CSF RBC (2) 89 H CSF Volume (3) 3.0 CSF Supernat Color (3) Clear CSF Gross Blood (3) 0 CSF Volume (4) 2.0 CSF Supernat Color (4) Clear CSF Gross Blood (4) 0 CSF WBC (4) 2 CSF RBC (4) 81 H CSF Neutrophils % 20 CSF Lymphocytes % 70 CSF Monocytes % 10 CSF Glucose CSF LDH CSF Lactic Acid CSF Total Protein Cancelled 04/02/18 04/02/18 04/02/18 04:25 04:25 04:25 WBC 17.7 H RBC 4.01 L Hgb 12.3 L Hct 37.6 L MCV 93.9 MCH 30.6 MCHC 32.6 RDW 14.5 Plt Count 245 MPV 6.8 L Neut % (Auto) 87.2 H Lymph % (Auto) 6.0 L Atkinson % (Auto) 6.3 Eos % (Auto) 0.2 Baso % (Auto) 0.3 Neut # (Auto) 15.4 H Lymph # (Auto) 1.1 Atkinson # (Auto) 1.1 H Eos # (Auto) 0.0 Baso # (Auto) 0.1 WBC Differential . Differential Comment Auto diff final Puncture Site Patient Temperature O2 Saturation ABG pH ABG pCO2 ABG pO2 ABG HCO3 ABG O2 Content ABG Base Excess ABG Methemoglobin David Test VBG pH VBG pCO2 VBG pO2 VBG HCO3 VBG O2 Saturation VBG O2 Content VBG Base Excess VBG Carboxyhemoglobin VBG Methemoglobin Hemoglobin Carboxyhemoglobin O2 Delivery Device Vent Setting Inspired O2 Critical Value Sodium 140 Potassium 3.6 Chloride 106 Carbon Dioxide 28.7 Anion Gap 5 BUN 15 Creatinine 0.75 Estimated GFR Greater than 89 Random Glucose 80 Calcium 8.1 L Total Bilirubin 0.9 GGT 49 AST 29 ALT 51 Alkaline Phosphatase 53 Ammonia 13 Total Creatine Kinase Troponin I B-Natriuretic Peptide Total Protein 5.8 L Albumin 2.6 L Lipase TSH CSF Volume (1) CSF Supernat Color (1) CSF Gross Blood (1) CSF Volume (2) CSF Supernat Color (2) CSF Gross Blood (2) CSF WBC (2) CSF RBC (2) CSF Volume (3) CSF Supernat Color (3) CSF Gross Blood (3) CSF Volume (4) CSF Supernat Color (4) CSF Gross Blood (4) CSF WBC (4) CSF RBC (4) CSF Neutrophils % CSF Lymphocytes % CSF Monocytes % CSF Glucose CSF LDH CSF Lactic Acid CSF Total Protein 04/02/18 04/02/18 04/02/18 04:51 09:20 09:20 WBC RBC Hgb Hct MCV MCH MCHC RDW Plt Count MPV Neut % (Auto) Lymph % (Auto) Atkinson % (Auto) Eos % (Auto) Baso % (Auto) Neut # (Auto) Lymph # (Auto) Atkinson # (Auto) Eos # (Auto) Baso # (Auto) WBC Differential Differential Comment Puncture Site Right radial Patient Temperature 98.6 O2 Saturation 96 ABG pH 7.34 L ABG pCO2 49 H ABG pO2 107 ABG HCO3 26 ABG O2 Content 17.2 ABG Base Excess 0.6 ABG Methemoglobin 1.2 David Test Present VBG pH VBG pCO2 VBG pO2 VBG HCO3 VBG O2 Saturation VBG O2 Content VBG Base Excess VBG Carboxyhemoglobin VBG Methemoglobin Hemoglobin 12.7 Carboxyhemoglobin 0.8 O2 Delivery Device Ventilator Vent Setting Prvc / ac / Inspired O2 40 Critical Value No Sodium Potassium Chloride Carbon Dioxide Anion Gap BUN Creatinine Estimated GFR Random Glucose Calcium Total Bilirubin GGT AST ALT Alkaline Phosphatase Ammonia Total Creatine Kinase 87 Troponin I Less than 0.02 L B-Natriuretic Peptide 9 Total Protein Albumin Lipase 60 L TSH 1.280 CSF Volume (1) CSF Supernat Color (1) CSF Gross Blood (1) CSF Volume (2) CSF Supernat Color (2) CSF Gross Blood (2) CSF WBC (2) CSF RBC (2) CSF Volume (3) CSF Supernat Color (3) CSF Gross Blood (3) CSF Volume (4) CSF Supernat Color (4) CSF Gross Blood (4) CSF WBC (4) CSF RBC (4) CSF Neutrophils % CSF Lymphocytes % CSF Monocytes % CSF Glucose CSF LDH CSF Lactic Acid CSF Total Protein 04/02/18 09:20 WBC RBC Hgb Hct MCV MCH MCHC RDW Plt Count MPV Neut % (Auto) Lymph % (Auto) Atkinson % (Auto) Eos % (Auto) Baso % (Auto) Neut # (Auto) Lymph # (Auto) Atkinson # (Auto) Eos # (Auto) Baso # (Auto) WBC Differential Differential Comment Puncture Site Patient Temperature O2 Saturation ABG pH ABG pCO2 ABG pO2 ABG HCO3 ABG O2 Content ABG Base Excess ABG Methemoglobin David Test VBG pH VBG pCO2 VBG pO2 VBG HCO3 VBG O2 Saturation VBG O2 Content VBG Base Excess VBG Carboxyhemoglobin VBG Methemoglobin Hemoglobin Carboxyhemoglobin O2 Delivery Device Vent Setting Inspired O2 Critical Value Sodium Potassium Chloride Carbon Dioxide Anion Gap BUN Creatinine Estimated GFR Random Glucose Calcium Total Bilirubin GGT AST ALT Alkaline Phosphatase Ammonia Total Creatine Kinase Troponin I B-Natriuretic Peptide Total Protein Albumin Lipase Cancelled TSH CSF Volume (1) CSF Supernat Color (1) CSF Gross Blood (1) CSF Volume (2) CSF Supernat Color (2) CSF Gross Blood (2) CSF WBC (2) CSF RBC (2) CSF Volume (3) CSF Supernat Color (3) CSF Gross Blood (3) CSF Volume (4) CSF Supernat Color (4) CSF Gross Blood (4) CSF WBC (4) CSF RBC (4) CSF Neutrophils % CSF Lymphocytes % CSF Monocytes % CSF Glucose CSF LDH CSF Lactic Acid CSF Total Protein Microbiology 04/01/18 18:15 Gram Stain - Final Lumbar Puncture CSF Culture - Preliminary No growth in 24 hours 03/31/18 19:04 Aerobic Blood Culture - Preliminary Blood - Peripheral No growth in 1 day Anaerobic Blood Culture - Preliminary No growth in 1 day 03/31/18 19:09 Aerobic Blood Culture - Preliminary Blood - Peripheral No growth in 1 day Anaerobic Blood Culture - Preliminary No growth in 1 day 04/01/18 06:00 Gram Stain - Final Sputum - Endotracheal 04/01/18 06:00 Influenza Types A,B Antigen - Final Nasal Wash Negative for FLU A and B antigen Infection due to influenza A or B cannot be ruled out since the antigen present in the sample may be below the detection limit of the test. Review/Management - Review/Management Plan: Encephalopathy Likely secondary to respiratory failure, hypoxia, metabolic etiology Respiratory failure - Lactic acidosis - Hyperammonemia - Leukocytosis - Neuro checks Q1h - MRI brain and head CT scan was unremarkable for an acute intracranial abnormality - Will reassess after patient he is off sedation. - CSF analysis is unremarkable, pending culture and HSV PCR results - EEG with evidence of encephalopathy, no epileptiform discharges or electrographic seizure activity - I met with family members and discussed the current neurologic status - There is no indication to start AEDs. -DVT prophylaxis - GI prophylaxis - Neurology will follow up. - Dr. Farias will follow up on Tuesday04/03/2018. - Please call for questions
[2018-04-02] MEDS: fentaNYL 10 mcg/mL Premix Drip 2,500 MCG/250 ML BAG IV.SIG PRN (13:08)
[2018-04-02] MEDS: Enoxaparin Inj 30 MG/0.3 ML Syringe SQ SCH (15:00)
--- NOTE | 2018-04-02 16:40 | P.PNID ---
Subjective Remarks: remians on vent , 40% Neurosurgery input appreciated sp LP b/s last night - CSF unremarkable sputum growing GNBs no fever WBC stays @ 17 K Antibiotics: vanco zosyn Allergies/Adverse Reactions: Allergies Sulfa (Sulfonamide Antibiotics) Allergy (Severe, Verified 02/15/18 05:02) Nausea also flu like symptoms Objective Vital Signs 04/01/18 16:45 04/01/18 16:53 04/01/18 16:56 Temperature Pulse Rate 110 H 106 H 104 H Respiratory Rate 20 20 20 Blood Pressure 73/50 L 90/54 L 93/53 L Pulse Oximetry 98 98 98 04/01/18 17:00 04/01/18 17:11 04/01/18 17:26 Temperature Pulse Rate 102 H 93 H 87 Respiratory Rate 20 20 20 Blood Pressure 122/67 131/75 Pulse Oximetry 99 100 100 04/01/18 17:41 04/01/18 17:56 04/01/18 18:00 Temperature Pulse Rate 95 H 98 H 98 H Respiratory Rate 20 20 20 Blood Pressure 131/61 125/66 Pulse Oximetry 100 100 100 04/01/18 18:11 04/01/18 18:26 04/01/18 18:41 Temperature Pulse Rate 99 H 98 H 93 H Respiratory Rate 20 20 20 Blood Pressure 141/71 H 131/75 124/74 Pulse Oximetry 100 100 100 04/01/18 18:56 04/01/18 19:00 04/01/18 19:11 Temperature Pulse Rate 93 H 91 H 93 H Respiratory Rate 20 16 16 Blood Pressure 122/65 119/66 Pulse Oximetry 100 100 100 04/01/18 19:26 04/01/18 19:41 04/01/18 19:56 Temperature Pulse Rate 92 H 93 H 97 H Respiratory Rate 16 16 20 Blood Pressure 118/63 125/64 124/67 Pulse Oximetry 100 100 98 04/01/18 20:00 04/01/18 20:11 04/01/18 20:12 Temperature 99.2 F Pulse Rate 102 H 103 H Respiratory Rate 19 17 16 Blood Pressure 131/69 Pulse Oximetry 98 98 99 04/01/18 20:26 04/01/18 20:57 04/01/18 21:00 Temperature Pulse Rate 100 H 119 H 113 H Respiratory Rate 16 19 16 Blood Pressure 140/70 167/80 H Pulse Oximetry 99 98 98 04/01/18 21:28 04/01/18 21:30 04/01/18 21:45 Temperature Pulse Rate 107 H 107 H 103 H Respiratory Rate 16 16 18 Blood Pressure 144/72 H 142/76 H 133/80 Pulse Oximetry 98 99 99 04/01/18 22:00 04/01/18 22:15 04/01/18 22:30 Temperature Pulse Rate 107 H 97 H 93 H Respiratory Rate 18 16 16 Blood Pressure 129/72 117/70 113/66 Pulse Oximetry 99 100 100 04/01/18 22:45 04/01/18 23:00 04/01/18 23:15 Temperature Pulse Rate 91 H 92 H 90 Respiratory Rate 16 16 16 Blood Pressure 116/67 120/69 117/67 Pulse Oximetry 100 100 100 04/01/18 23:30 04/01/18 23:45 04/02/18 00:00 Temperature 97.8 F Pulse Rate 87 87 84 Respiratory Rate 16 16 16 Blood Pressure 115/68 116/70 116/70 Pulse Oximetry 100 100 100 04/02/18 00:15 04/02/18 00:21 04/02/18 00:30 Temperature Pulse Rate 84 82 Respiratory Rate 16 16 16 Blood Pressure 114/71 115/71 Pulse Oximetry 100 100 100 04/02/18 00:45 04/02/18 01:00 04/02/18 01:15 Temperature Pulse Rate 82 84 85 Respiratory Rate 16 16 16 Blood Pressure 115/72 121/77 134/78 Pulse Oximetry 100 100 100 04/02/18 01:30 04/02/18 01:45 04/02/18 02:00 Temperature Pulse Rate 87 87 87 Respiratory Rate 16 16 16 Blood Pressure 124/69 117/65 115/67 Pulse Oximetry 100 100 100 04/02/18 02:15 04/02/18 02:30 04/02/18 02:45 Temperature Pulse Rate 84 84 87 Respiratory Rate 16 16 17 Blood Pressure 115/69 116/70 120/70 Pulse Oximetry 100 100 100 04/02/18 03:00 04/02/18 03:15 04/02/18 03:30 Temperature Pulse Rate 86 85 88 Respiratory Rate 16 16 16 Blood Pressure 119/69 118/70 109/64 Pulse Oximetry 100 100 100 04/02/18 04:00 04/02/18 04:07 04/02/18 04:15 Temperature 97.9 F Pulse Rate 91 H 104 H 105 H Respiratory Rate 33 H 17 16 Blood Pressure 175/79 H 159/83 H Pulse Oximetry 100 100 100 04/02/18 04:21 04/02/18 04:24 04/02/18 04:30 Temperature Pulse Rate 111 H 110 H Respiratory Rate 18 17 Blood Pressure 153/81 H Pulse Oximetry 100 100 04/02/18 04:45 04/02/18 05:00 04/02/18 05:15 Temperature Pulse Rate 109 H 106 H 102 H Respiratory Rate 16 16 16 Blood Pressure 149/81 H 132/74 124/72 Pulse Oximetry 100 99 100 04/02/18 05:30 04/02/18 05:45 04/02/18 06:00 Temperature Pulse Rate 100 H 97 H 93 H Respiratory Rate 16 16 16 Blood Pressure 133/67 111/62 104/62 Pulse Oximetry 100 99 99 04/02/18 06:15 04/02/18 06:30 04/02/18 06:45 Temperature Pulse Rate 89 87 87 Respiratory Rate 16 16 16 Blood Pressure 100/57 L 102/59 L 105/62 Pulse Oximetry 100 100 100 04/02/18 07:00 04/02/18 07:15 04/02/18 07:30 Temperature Pulse Rate 86 86 87 Respiratory Rate 16 16 16 Blood Pressure 115/63 118/70 121/71 Pulse Oximetry 100 100 100 04/02/18 07:45 04/02/18 08:00 04/02/18 08:15 Temperature 98.7 F Pulse Rate 80 92 H 93 H Respiratory Rate 16 16 16 Blood Pressure 142/69 H 132/73 133/76 Pulse Oximetry 100 100 100 04/02/18 08:30 04/02/18 08:44 04/02/18 08:45 Temperature Pulse Rate 93 H 92 H Respiratory Rate 16 16 16 Blood Pressure 127/71 130/73 Pulse Oximetry 100 100 100 04/02/18 08:47 04/02/18 09:00 04/02/18 09:15 Temperature Pulse Rate 92 H 93 H 93 H Respiratory Rate 16 16 16 Blood Pressure 126/71 130/72 Pulse Oximetry 100 100 04/02/18 09:30 04/02/18 09:45 04/02/18 10:00 Temperature Pulse Rate 92 H 92 H 91 H Respiratory Rate 16 16 16 Blood Pressure 119/62 119/66 114/62 Pulse Oximetry 100 100 100 04/02/18 10:17 04/02/18 10:30 04/02/18 10:48 Temperature Pulse Rate 94 H 131 H Respiratory Rate 20 16 16 Blood Pressure 129/68 121/70 121/65 Pulse Oximetry 89 L 100 100 04/02/18 11:00 04/02/18 11:15 04/02/18 11:30 Temperature Pulse Rate 93 H 92 H 89 Respiratory Rate 16 16 16 Blood Pressure 113/63 113/65 114/66 Pulse Oximetry 100 100 100 04/02/18 11:45 04/02/18 12:00 04/02/18 12:30 Temperature 98.8 F Pulse Rate 90 90 91 H Respiratory Rate 16 16 16 Blood Pressure 113/69 93/69 L 126/70 Pulse Oximetry 100 100 100 04/02/18 12:45 04/02/18 13:00 04/02/18 13:15 Temperature Pulse Rate 91 H 90 90 Respiratory Rate 16 16 16 Blood Pressure 124/76 120/70 125/69 Pulse Oximetry 100 100 100 04/02/18 13:30 04/02/18 13:45 04/02/18 14:00 Temperature Pulse Rate 92 H 92 H 94 H Respiratory Rate 16 16 17 Blood Pressure 132/71 133/76 132/79 Pulse Oximetry 100 100 99 04/02/18 14:15 04/02/18 14:30 04/02/18 14:45 Temperature Pulse Rate 95 H 93 H 89 Respiratory Rate 16 16 16 Blood Pressure 129/75 127/72 111/69 Pulse Oximetry 100 99 99 04/02/18 15:00 04/02/18 15:15 04/02/18 15:30 Temperature Pulse Rate 92 H 90 90 Respiratory Rate 17 16 16 Blood Pressure 133/78 119/63 123/68 Pulse Oximetry 99 99 99 04/02/18 15:45 04/02/18 16:00 04/02/18 16:15 Temperature 98.4 F Pulse Rate 92 H 92 H 95 H Respiratory Rate 16 16 16 Blood Pressure 134/77 147/98 H 135/80 Pulse Oximetry 99 99 99 04/02/18 16:22 Temperature Pulse Rate Respiratory Rate 16 Blood Pressure Pulse Oximetry 100 Intake & Output 04/01/18 04/02/18 04/02/18 18:59 06:59 18:59 Intake Total 2672.5 / 2672.5 2342.5 / 2342.5 1817.5 / 1817.5 Output Total 700 / 700 1250 / 1250 Balance 1971.5 / 1971.5 1092.5 / 1092.5 1817.5 / 1817.5 Weight 86.3 kg Intake: IV 2672.5 / 2672.5 2342.5 / 2342.5 1817.5 / 1817.5 Versed Inj 100 mg In 100 ml @ 2 100 / 100 MG/HR 2 mls/hr IV.CONT TITRATE PRN Rx#:[id number] NS Inj 1,000 ML @ 125 mls/hr IV 1625 / 1625 1375 / 1375 1000 / 1000 .CONT .Q8H [facility] Rx#:[id number] Maxipime Inj 2,000 MG In NS Inj 100 / 100 100 ML @ 200 mls/hr IV.SIG Q8H [facility] Rx#:[id number] Levophed-Dextrose 4 mg/250 ml 250 / 250 250 / 250 Drip 4 mg In 250 ml @ 2 MCG/MIN 7.5 mls/hr IV.SIG TITRATE PRN Rx#:[id number] Zosyn 3.375 GM Premix 3.375 gm 100 / 100 100 / 100 50 / 50 In 50 ml @ 100 mls/hr IV.SIG Q6HR [facility] Rx#:[id number] Vancomycin Inj 1,750 MG In NS 517.5 / 517.5 517.5 / 517.5 517.5 / 517.5 Inj 500 ML @ 250 mls/hr IV.SIG Q12H [facility] Rx#:[id number] fentaNYL 10 mcg/mL Premix Drip 250 / 250 2,500 mcg In 250 ml @ 50 MCG/HR 5 mls/hr IV.SIG TITRATE PRN Rx #:[id number] Output: Urine Amount (Catheter) 700 / 700 1250 / 1250 Indwelling Urethral Catheter 700 / 700 1250 / 1250 04/01/18 06:00 Sputum - Endotracheal Gram Stain - Final 04/01/18 06:00 Sputum - Endotracheal Sputum Culture - Preliminary gram negative rods 03/31/18 19:04 Blood - Peripheral Aerobic Blood Culture - Preliminary No growth in 2 days 03/31/18 19:04 Blood - Peripheral Anaerobic Blood Culture - Preliminary No growth in 2 days 03/31/18 19:09 Blood - Peripheral Aerobic Blood Culture - Preliminary No growth in 2 days 03/31/18 19:09 Blood - Peripheral Anaerobic Blood Culture - Preliminary No growth in 2 days 04/01/18 18:15 Lumbar Puncture Gram Stain - Final 04/01/18 18:15 Lumbar Puncture CSF Culture - Preliminary No growth in 24 hours 04/01/18 06:00 Nasal Wash Influenza Types A,B Antigen - Final Negative for FLU A and B antigen Infection due to influenza A or B cannot be ruled out since the antigen present in the sample may be below the detection limit of the test. Lab - Hematology Results 04/01/18 04/02/18 03:53 04:25 WBC 17.0 H 17.7 H RBC 4.49 L 4.01 L Hgb 13.6 D 12.3 L Hct 42.0 37.6 L MCV 93.6 93.9 MCH 30.4 30.6 MCHC 32.5 32.6 RDW 14.3 14.5 Plt Count 248 245 MPV 7.1 6.8 L Neut % (Auto) 88.0 H 87.2 H Lymph % (Auto) 4.4 L 6.0 L [place] % (Auto) 7.5 6.3 Eos % (Auto) 0.0 0.2 Baso % (Auto) 0.1 0.3 Neut # (Auto) 14.9 H 15.4 H Lymph # (Auto) 0.8 L 1.1 [place] # (Auto) 1.3 H 1.1 H Eos # (Auto) 0.0 0.0 Baso # (Auto) 0.0 0.1 WBC Differential . . Differential Comment Auto diff final Auto diff final Lab - Chemistry Results 03/31/18 03/31/18 03/31/18 12:30 12:30 19:09 Sodium Potassium Chloride Carbon Dioxide Anion Gap BUN Creatinine Estimated GFR Random Glucose Lactic Acid Calcium Magnesium Total Bilirubin GGT AST ALT Alkaline Phosphatase Ammonia 71 H Total Creatine Kinase CK-MB (CK-2) 9.7 H Troponin I B-Natriuretic Peptide 26 Total Protein Albumin Lipase TSH 03/31/18 03/31/18 04/01/18 19:09 19:09 00:00 Sodium Potassium Chloride Carbon Dioxide Anion Gap BUN Creatinine Estimated GFR Random Glucose Lactic Acid 2.7 H 2.4 H Calcium Magnesium Total Bilirubin GGT AST ALT Alkaline Phosphatase Ammonia Total Creatine Kinase CK-MB (CK-2) Troponin I 0.03 B-Natriuretic Peptide Total Protein Albumin Lipase TSH 04/01/18 04/01/18 04/01/18 03:53 13:15 22:15 Sodium 137 140 Potassium 4.0 3.5 Chloride 100 D 107 Carbon Dioxide 28.4 26.0 Anion Gap 9 7 BUN 23 H 17 Creatinine 0.91 0.76 Estimated GFR 83 L Greater than 89 Random Glucose 83 86 Lactic Acid Calcium 8.3 L 7.7 L Magnesium 1.9 Total Bilirubin 0.9 1.1 H GGT AST 35 29 ALT 65 53 Alkaline Phosphatase 52 50 Ammonia Total Creatine Kinase CK-MB (CK-2) Troponin I 0.05 0.04 B-Natriuretic Peptide Total Protein 5.5 L D 5.3 L Albumin 3.0 L D 2.5 L Lipase TSH 04/02/18 04/02/18 04/02/18 04:25 04:25 09:20 Sodium 140 Potassium 3.6 Chloride 106 Carbon Dioxide 28.7 Anion Gap 5 BUN 15 Creatinine 0.75 Estimated GFR Greater than 89 Random Glucose 80 Lactic Acid Calcium 8.1 L Magnesium Total Bilirubin 0.9 GGT 49 AST 29 ALT 51 Alkaline Phosphatase 53 Ammonia 13 Total Creatine Kinase 87 CK-MB (CK-2) Troponin I Less than 0.02 L B-Natriuretic Peptide Total Protein 5.8 L Albumin 2.6 L Lipase 60 L TSH 1.280 04/02/18 04/02/18 09:20 09:20 Sodium Potassium Chloride Carbon Dioxide Anion Gap BUN Creatinine Estimated GFR Random Glucose Lactic Acid Calcium Magnesium Total Bilirubin GGT AST ALT Alkaline Phosphatase Ammonia Total Creatine Kinase CK-MB (CK-2) Troponin I B-Natriuretic Peptide 9 Total Protein Albumin Lipase Cancelled TSH Imaging: ITS Impressions Head MRI 03/31/18 00:00 CONCLUSION: Negative exam Head CT 03/31/18 12:16 CONCLUSION: 1. Negative CT Head non contrast. . Chest CTA 03/31/18 14:39 CONCLUSION: 1. Bibasilar atelectatic changes, left greater than right. No confluent infiltrate. 2. No pulmonary embolus. 3. Atherosclerotic calcification of the coronary arteries. Cervical Spine MRI 03/31/18 16:17 CONCLUSION: 1. Status post fusion at the C5-C6 level. There is susceptibility artifact from the hardware. 2. A significant area of stenosis in the thecal sac is not seen. 3. Facet hypertrophy seen throughout with scattered areas of neural foraminal narrowing as described above. 4. The patient is intubated with fluid in the hypopharynx, laryngeal pharynx, and upper trachea around the ET tube and above the tracheal ET tube cuff. 5. The does appear to be some mild soft tissue swelling in the prevertebral region best seen on the sagittal images. Chest X-Ray 04/02/18 04:00 CONCLUSION: No significant interval change. Mild bilateral lower lung zone atelectasis. Physical Exam: GENERAL: NAD sedated , uint'd SKIN: Warm and dry. HEAD: Atraumatic. Normocephalic. EYES: Pupils equal and round. No scleral icterus. No injection or drainage. ENT: No nasal bleeding or discharge. Mucous membranes pink and moist. NECK: Trachea midline. No JVD. CARDIOVASCULAR: Regular rate and rhythm. RESPIRATORY: No accessory muscle use. Clear to auscultation. Breath sounds equal bilaterally. GASTROINTESTINAL: Abdomen soft, non-tender, nondistended. Hepatic and splenic margins not palpable. MUSCULOSKELETAL: Extremities without clubbing, cyanosis, or edema. No obvious deformities. NEUROLOGICAL: seadted PSYCHIATRIC: unable to assess Assessment and Plan - Plan C spine fusion Hypercapnia difficulty breathing developped after surgery Gram negative PNA Acute VDRF fever on presentation ?aspiration cont vanco cont zosyn up to 4.5 gms monitor closely pt's GFR case was dw pt 's , dgtr @ b/s breezy Rodríguez
[2018-04-02] MEDS: Piperacil/Tazo 4.5 GM Premix 4.5 GM/100 ML BAG IV.SIG SCH (18:23)
[2018-04-03] MEDS: Oral Hygiene Kit OROPHARYNG SCH ×5 (01:20→23:13)
[2018-04-03] MEDS: Piperacil/Tazo 4.5 GM Premix 4.5 GM/100 ML BAG IV.SIG SCH ×3 (01:20→11:31)
[2018-04-03 04:47] LABS: Baso % (Auto) 0.1 % (0.0-2.0); Eos # (Auto) 0.1 th/mm3 (0.0-0.4); Eos % (Auto) 0.6 % (0.0-4.0); Hematocrit 32.3 % (39.0-51.0); Hemoglobin 10.9 gm/dL (13.0-17.0); Lymph # (Auto) 0.6 th/mm3 (1.0-4.8); Lymph % (Auto) 4.4 % (9.0-44.0); Mean Corpuscular HGB Conc 33.8 % (32.0-36.0); Mean Corpuscular Hemoglobin 31.2 pg (27.0-34.0); Mean Corpuscular Volume 92.3 fL (80.0-100.0); Mono # (Auto) 0.9 th/mm3 (0.0-0.9); Neut # (Auto) 11.1 th/mm3 (1.8-7.7); Neut % (Auto) 87.9 % (16.0-70.0); Platelet Count 234 th/mm3 (150-450); Red Cell Distribution Width 14.6 % (11.6-17.2); White Blood Count 12.6 th/mm3 (4.0-11.0)
[2018-04-03 04:51] LABS: Alanine Aminotransferase 34 U/L (12-78); Albumin 2.2 g/dL (3.4-5.0); Anion Gap 8 meq/L (5-15); Aspartate Aminotransferase 21 U/L (15-37); Blood Urea Nitrogen 11 mg/dL (7-18); Calcium 8.1 mg/dL (8.5-10.1); Carbon Dioxide 26.1 meq/L (21.0-32.0); Chloride 109 meq/L (98-107); Glomerular Filtration Rate Greater Than 89 mL/min (>89); Glucose,Random 73 mg/dL (74-106); Potassium 3.1 meq/L (3.5-5.1); Sodium 143 meq/L (136-145)
[2018-04-03 04:54] LABS: Alkaline Phosphatase 49 U/L (45-117); Total Protein 5.5 g/dL (6.4-8.2)
--- NOTE | 2018-04-03 06:32 | P.PNCC ---
Subjective Subjective Remarks/Hospital Course: This 67-year-old came into the emergency room today with his and daughter. On 02/13/2018, he had a microdiscectomy, C5-C6, by Dr. Schwarz. He was discharged home the next day. A few days after, he had not been feeling well, short of breath, disoriented, generally weak, symptoms were getting worse, disorientation was worse. He was referred to emergency department by his primary care physician for an evaluation. In the ED he was found to be in severe hypercarbic respiratory acidosis and was intubated by ED attending. 04/01: CO2 retention corrected. Remains mildly alkalotic due to chronic CO2 elevation. PH normalized. Still requiring vasopressor therapy with norepinephrine. Broad-spectrum antibiotic coverage started. Lumbar puncture performed with opening pressure 20 and crystal-clear fluid, sent for cell counts , chemistries and culture. HSV included. One extra tube sent for future studies if necessary. Ammonia level 71 - repeat daily. 04/02: CSF appears benign. Repeat ammonia level normal. Gamma GT normal. Cardiac echo estimated of 45% ejection fraction requires a little additional investigation -patient has been chronically short of breath for several weeks now. Leukocytosis and left shift persists. Gram-positive cocci and white cells seen in sputum. This man clearly became acutely and critically ill - exact cause still eludes us. 04/03: Leukocytosis improved. Remains quite rigid when stimulated. Continues to move 4 limbs with purpose and follows commands with 4 limbs. Sputum demonstrates white blood cells and gram-negative rods. Objective Vital Signs / I&O: Vital Signs 04/02/18 06:30 04/02/18 06:45 04/02/18 07:00 Temperature Pulse Rate 87 87 86 Respiratory Rate 16 16 16 Blood Pressure 102/59 L 105/62 115/63 Pulse Oximetry 100 100 100 04/02/18 07:15 04/02/18 07:30 04/02/18 07:45 Temperature Pulse Rate 86 87 80 Respiratory Rate 16 16 16 Blood Pressure 118/70 121/71 142/69 H Pulse Oximetry 100 100 100 04/02/18 08:00 04/02/18 08:15 04/02/18 08:30 Temperature 98.7 F Pulse Rate 92 H 93 H 93 H Respiratory Rate 16 16 16 Blood Pressure 132/73 133/76 127/71 Pulse Oximetry 100 100 100 04/02/18 08:44 04/02/18 08:45 04/02/18 08:47 Temperature Pulse Rate 92 H 92 H Respiratory Rate 16 16 16 Blood Pressure 130/73 Pulse Oximetry 100 100 04/02/18 09:00 04/02/18 09:15 04/02/18 09:30 Temperature Pulse Rate 93 H 93 H 92 H Respiratory Rate 16 16 16 Blood Pressure 126/71 130/72 119/62 Pulse Oximetry 100 100 100 04/02/18 09:45 04/02/18 10:00 04/02/18 10:17 Temperature Pulse Rate 92 H 91 H Respiratory Rate 16 16 20 Blood Pressure 119/66 114/62 129/68 Pulse Oximetry 100 100 89 L 04/02/18 10:30 04/02/18 10:48 04/02/18 11:00 Temperature Pulse Rate 94 H 131 H 93 H Respiratory Rate 16 16 16 Blood Pressure 121/70 121/65 113/63 Pulse Oximetry 100 100 100 04/02/18 11:15 04/02/18 11:30 04/02/18 11:45 Temperature Pulse Rate 92 H 89 90 Respiratory Rate 16 16 16 Blood Pressure 113/65 114/66 113/69 Pulse Oximetry 100 100 100 04/02/18 12:00 04/02/18 12:30 04/02/18 12:45 Temperature 98.8 F Pulse Rate 90 91 H 91 H Respiratory Rate 16 16 16 Blood Pressure 93/69 L 126/70 124/76 Pulse Oximetry 100 100 100 04/02/18 13:00 04/02/18 13:15 04/02/18 13:30 Temperature Pulse Rate 90 90 92 H Respiratory Rate 16 16 16 Blood Pressure 120/70 125/69 132/71 Pulse Oximetry 100 100 100 04/02/18 13:45 04/02/18 14:00 04/02/18 14:15 Temperature Pulse Rate 92 H 94 H 95 H Respiratory Rate 16 17 16 Blood Pressure 133/76 132/79 129/75 Pulse Oximetry 100 99 100 04/02/18 14:30 04/02/18 14:45 04/02/18 15:00 Temperature Pulse Rate 93 H 89 92 H Respiratory Rate 16 16 17 Blood Pressure 127/72 111/69 133/78 Pulse Oximetry 99 99 99 04/02/18 15:15 04/02/18 15:30 04/02/18 15:45 Temperature Pulse Rate 90 90 92 H Respiratory Rate 16 16 16 Blood Pressure 119/63 123/68 134/77 Pulse Oximetry 99 99 99 04/02/18 16:00 04/02/18 16:15 04/02/18 16:22 Temperature 98.4 F Pulse Rate 92 H 95 H Respiratory Rate 16 16 16 Blood Pressure 147/98 H 135/80 Pulse Oximetry 99 99 100 04/02/18 16:30 04/02/18 16:45 04/02/18 17:00 Temperature Pulse Rate 95 H 95 H 93 H Respiratory Rate 16 16 16 Blood Pressure 138/82 136/79 124/69 Pulse Oximetry 99 100 100 04/02/18 17:15 04/02/18 17:30 04/02/18 17:45 Temperature Pulse Rate 93 H 95 H 97 H Respiratory Rate 16 12 12 Blood Pressure 122/62 126/71 123/70 Pulse Oximetry 100 99 99 04/02/18 18:00 04/02/18 18:15 04/02/18 18:30 Temperature Pulse Rate 97 H 96 H 100 H Respiratory Rate 14 14 15 Blood Pressure 130/73 134/73 111/67 Pulse Oximetry 99 99 98 04/02/18 18:45 04/02/18 19:00 04/02/18 19:15 Temperature Pulse Rate 98 H 98 H 97 H Respiratory Rate 15 17 14 Blood Pressure 177/79 H 133/76 138/82 Pulse Oximetry 98 98 98 04/02/18 19:30 04/02/18 19:45 04/02/18 20:00 Temperature 99.6 F Pulse Rate 97 H 92 H 96 H Respiratory Rate 14 14 14 Blood Pressure 131/71 141/78 H 127/77 Pulse Oximetry 98 99 99 04/02/18 20:15 04/02/18 20:30 04/02/18 20:45 Temperature Pulse Rate 92 H 99 H 96 H Respiratory Rate 14 14 14 Blood Pressure 137/78 151/72 H 127/73 Pulse Oximetry 100 99 99 04/02/18 21:00 04/02/18 21:15 04/02/18 21:30 Temperature Pulse Rate 106 H 103 H 101 H Respiratory Rate 14 14 14 Blood Pressure 114/62 144/79 H 144/86 H Pulse Oximetry 99 100 100 04/02/18 21:45 04/02/18 22:00 04/02/18 22:15 Temperature Pulse Rate 98 H 100 H 97 H Respiratory Rate 14 14 14 Blood Pressure 135/76 142/78 H 137/79 Pulse Oximetry 100 100 100 04/02/18 22:30 04/02/18 22:45 04/02/18 23:00 Temperature Pulse Rate 97 H 93 H 93 H Respiratory Rate 14 14 14 Blood Pressure 137/73 129/70 129/72 Pulse Oximetry 98 99 99 04/02/18 23:15 04/02/18 23:30 04/02/18 23:45 Temperature Pulse Rate 93 H 93 H 92 H Respiratory Rate 14 14 14 Blood Pressure 131/89 125/81 128/81 Pulse Oximetry 99 99 100 04/03/18 00:00 04/03/18 00:06 04/03/18 00:15 Temperature 99.2 F Pulse Rate 94 H 96 H Respiratory Rate 14 14 14 Blood Pressure 132/78 133/72 Pulse Oximetry 99 99 99 04/03/18 00:30 04/03/18 00:45 04/03/18 01:00 Temperature Pulse Rate 104 H 99 H 98 H Respiratory Rate 14 14 14 Blood Pressure 145/85 H 128/74 126/78 Pulse Oximetry 98 99 99 04/03/18 01:15 04/03/18 01:30 04/03/18 01:45 Temperature Pulse Rate 94 H 94 H 94 H Respiratory Rate 14 14 14 Blood Pressure 118/72 123/71 116/66 Pulse Oximetry 99 99 100 04/03/18 02:00 04/03/18 02:15 04/03/18 02:30 Temperature Pulse Rate 90 90 87 Respiratory Rate 14 14 14 Blood Pressure 115/65 114/71 115/71 Pulse Oximetry 99 99 99 04/03/18 02:45 04/03/18 03:00 04/03/18 03:53 Temperature Pulse Rate 88 89 Respiratory Rate 14 14 14 Blood Pressure 115/70 119/74 Pulse Oximetry 99 99 99 04/03/18 04:41 Temperature Pulse Rate 99 H Respiratory Rate 14 Blood Pressure Pulse Oximetry Intake & Output 04/02/18 04/02/18 04/03/18 06:59 18:59 06:59 Intake Total 2342.5 / 2342.5 1867.5 / 1867.5 1667.5 / 1667.5 Output Total 1250 / 1250 1200 / 1200 Balance 1092.5 / 1092.5 667.5 / 667.5 1667.5 / 1667.5 Weight 86.3 kg Intake: IV 2342.5 / 2342.5 1867.5 / 1867.5 1667.5 / 1667.5 Versed Inj 100 mg In 100 ml @ 2 100 / 100 MG/HR 2 mls/hr IV.CONT TITRATE PRN Rx#:[id number] NS Inj 1,000 ML @ 125 mls/hr IV 1375 / 1375 1000 / 1000 1000 / 1000 .CONT .Q8H [facility] Rx#:[id number] Levophed-Dextrose 4 mg/250 ml 250 / 250 Drip 4 mg In 250 ml @ 2 MCG/MIN 7.5 mls/hr IV.SIG TITRATE PRN Rx#:[id number] Zosyn 3.375 GM Premix 3.375 gm 100 / 100 50 / 50 In 50 ml @ 100 mls/hr IV.SIG Q6HR [facility] Rx#:[id number] Zosyn 4.5 GM Premix 4.5 gm In 50 / 50 150 / 150 100 ml @ 200 mls/hr IV.SIG Q6H [facility] Rx#:[id number] Vancomycin Inj 1,750 MG In NS 517.5 / 517.5 517.5 / 517.5 517.5 / 517.5 Inj 500 ML @ 250 mls/hr IV.SIG Q12H [facility] Rx#:[id number] fentaNYL 10 mcg/mL Premix Drip 250 / 250 2,500 mcg In 250 ml @ 50 MCG/HR 5 mls/hr IV.SIG TITRATE PRN Rx #:[id number] Output: Urine Amount (Catheter) 1250 / 1250 1200 / 1200 Indwelling Urethral Catheter 1250 / 1250 1200 / 1200 Result Diagrams: 04/03/18 04:10 04/03/18 04:10 Objective Remarks: - Constitutional Sedated and intubated on mechanical ventilation - Routine HEENT Exam Head: Present: normocephalic, atraumatic ENT: Present: mucous membranes moist - Routine Neck Exam Orotracheal intubation. Absent: JVD, carotid bruit - Routine Respiratory Exam Present: patient mechanically ventilated. Good bilateral air movement. Absent : rhonchi, stridor, wheezes - Routine Cardiovascular Exam Present: RRR, S1, S2, no JVD. - Routine Abdominal Exam Present: soft, normoactive bowel sounds. No guarding. Absent: tenderness, distended - Routine Extremities Exam Absent: cyanosis, clubbing, edema. Toes and fingers warm and well-perfused. - Routine Skin Exam Present: intact. Absent: cyanosis, erythema - Routine Neurological Exam Present: Neck and extremity rigidity persists when stimulated. Deep tendon reflexes at knee 3+ bilaterally. Unable to test clonus due to rigidity at ankles. PERRL. Assessment and Plan - Assessment and Plan Plan: Respiratory failure -Hypercarbic respiratory failure, resolved -Vent bundle -Restraints ordered -Possible strep pneumonia? -Needs sniff test to assess diaphragmatic function -Following extubation we will examine vocal cords as well. Altered mental status -Due to above -CT head negative -MRI of the neck negative -Supportive care -Lumbar puncture performed, fluid clear, benign cell counts and chemistries -Ammonia level on recheck is normal, gamma GT normal -Ammonia remains normal no evidence of liver dysfunction Hypotension -Aggressive IV fluid resuscitation -Central line and Levophed to keep map above 65 -Blood culture -CSF culture -Broad antibiotic coverage continued -Not requiring vasopressor support anymore -Repeat cardiac markers, normal Hypothyroidism -TSH and T4 within normal limits -Continue Synthroid -Repeat TSH normal Dyslipidemia - Pravastatin DVT GI prophylaxis -Teds SCDs -Subcu heparin -Pepcid Overall impression: This gentleman is critically ill with what appears to be distributive shock and sepsis. We are unable to wean him from mechanical ventilation. Results of cultures of blood, sputum, CSF are pending -no growth to date with the exception of gram-negative rods in sputum. Depressed left ventricular function is concerning -no evidence of an acute cardiac event. The proof will be in his ability to mobilize fluid at this point. Trial extubation today but failed after about 45 mins with weak respiratory effort and CO2 retention. On reintubation cords have irregular edges but opening is widely patent. I could not asses cord function however - patient too obtunded to cooperate. He remains dependent on mechanical ventilation. Critical care time 45 minutes aside from procedures.
[2018-04-03] MEDS: Levothyroxine 125 MCG Tablet PO SCH (06:52)
[2018-04-03] MEDS: Chlorhexidine Gluconate 2% 1 Pack (2 Cloths) TOPICAL SCH (06:53)
[2018-04-03] MEDS: Dexmedetomidine Inj 200 MCG in Sodium Chlor 0.9% Inj 48 ML IV.CONT PRN ×3 (08:07→20:13)
--- NOTE | 2018-04-03 08:48 | P.PNNEU ---
Subjective Active Medications: Active Medications Acetaminophen (Tylenol) 650 mg PO Q4H PRN PRN Reason: Temp > 100.4 Last Admin: 04/01/18 15:53 Dose: 650 mg Al Hydroxide/Mg Hydroxide (Milk Of Magnjacque Liq) 30 ml PO Q12H PRN PRN Reason: Mild Constipation Albuterol (Duoneb Neb (Prn)) 1 ampul NEB Q4HR NEB PRN PRN Reason: SHORTNESS OF BREATH Albuterol (Duoneb Neb (Gigi)) 1 ampul NEB Q6HR NEB [facility] Last Admin: 04/03/18 04:39 Dose: 1 ampul Aspirin (Ecotrin) 81 mg PO DAILY [facility] Last Admin: 04/02/18 08:04 Dose: 81 mg Chlorhexidine Gluconate (Peridex 0.12% Oral Kit) 15 ml OROPHARYNG BID@0800, 2000 [facility] Last Admin: 04/02/18 20:56 Dose: 15 ml Chlorhexidine Gluconate (Chlorhexidine 2% Cloth) 3 pack TOPICAL DAILY@0400 [facility] Stop: 04/06/18 03:59 Last Admin: 04/03/18 06:53 Dose: 3 pack Chlorhexidine Gluconate (Chlorhexidine 2% Cloth) 3 pack TOPICAL DAILY@0400 PRN PRN Reason: Extra cloth needed Stop: 04/06/18 03:59 Enoxaparin Sodium (Lovenox Inj) 30 mg SQ Q24H [facility] Last Admin: 04/02/18 15:00 Dose: 30 mg Famotidine (Pepcid Pf Inj) 20 mg IV.PUSH Q12HR [facility] Last Admin: 04/02/18 20:56 Dose: 20 mg Sodium Chloride (Ns Inj) 1,000 mls @ 30 mls/hr IV.CONT .Q24H [facility] Last Infusion: 04/03/18 06:53 Dose: 30 mls/hr Fentanyl (Fentanyl 10 Mcg/Ml Premix Drip) 2,500 mcg in 250 mls @ 5 mls/hr IV.SIG TITRATE PRN; Protocol PRN Reason: Per Protocol Last Titration: 04/03/18 04:00 Dose: 50 mcg/hr, 5 mls/hr Midazolam HCl (Versed Inj) 100 mg in 100 mls @ 2 mls/hr IV.CONT TITRATE PRN; Protocol PRN Reason: See protocol Last Titration: 04/03/18 04:00 Dose: 2 mg/hr, 2 mls/hr Norepinephrine Bitartrate (Levophed-Dextrose 4 Mg/250 Ml Drip) 4 mg in 250 mls @ 7.5 mls/hr IV.SIG TITRATE PRN; Protocol PRN Reason: Per Protocol Last Titration: 04/03/18 01:00 Dose: 0 mcg/min, 0 mls/hr Vancomycin HCl 1,750 mg/ (Sodium Chloride) 517.5 mls @ 250 mls/hr IV.SIG Q12H [facility] Last Infusion: 04/03/18 01:20 Dose: Infused Piperacillin/Tazobactam/Dextrose (Zosyn 4.5 Gm Premix) 4.5 gm in 100 mls @ 200 mls/hr IV.SIG Q6H [facility] Last Admin: 04/03/18 06:52 Dose: 200 mls/hr Dexmedetomidine HCl 200 mcg/ (Sodium Chloride) 50 mls @ 4.31 mls/hr IV.CONT TITRATE PRN; Protocol PRN Reason: Per Protocol Last Admin: 04/03/18 08:07 Dose: 0.2 mcg/kg/hr, 4.31 mls/hr Lactulose (Lactulose Liq) 30 ml PO TID [facility] Last Admin: 04/02/18 18:23 Dose: Not Given Levothyroxine Sodium (Synthroid) 125 mcg PO DAILY@0600 [facility] Last Admin: 04/03/18 06:52 Dose: 125 mcg Miscellaneous Information ([facility] Ordered Lab Info) 0 each OTHER ONCE ONE Stop: 04/03/18 09:46 Miscellaneous Medication () 1 each OROPHARYNG 0000,0400,1200,1600 [facility] Last Admin: 04/03/18 06:53 Dose: 1 each Ondansetron HCl (Zofran Inj) 4 mg IV.PUSH Q6H PRN PRN Reason: NAUSEA OR VOMITING Pharmacy Profile Note (Vancomycin Consult Pharmacy) 1 each OTHER UNSCH PRN PRN Reason: Pharmacy to dose Pravastatin Sodium (Pravachol) 40 mg PO HS [facility] Last Admin: 04/02/18 20:56 Dose: 40 mg Senna/Docusate Sodium (Celine-Colace) 1 tab PO BID [facility] Last Admin: 04/02/18 20:56 Dose: 1 tab Sodium Chloride (Ns Flush) 2 ml IV.FLUSH BID [facility] Last Admin: 04/02/18 20:56 Dose: 2 ml Sodium Chloride (Ns Flush) 2 ml IV.FLUSH PRN PRN PRN Reason: FLUSH AFTER USING IV ACCESS Terbutaline Sulfate (Brethine Inj) 1 mg SQ UNSCH PRN PRN Reason: For Extravasation Allergies/Adverse Reactions: Allergies Allergy/AdvReac Type Severity Reaction Status Date / Time Sulfa (Sulfonamide Allergy Severe Nausea Verified 02/15/18 05:02 Antibiotics) Physical Exam Vital signs: Vital Signs 04/02/18 08:44 04/02/18 08:45 04/02/18 08:47 Temperature Pulse Rate 92 H 92 H Respiratory Rate 16 16 16 Blood Pressure 130/73 Pulse Oximetry 100 100 04/02/18 09:00 04/02/18 09:15 04/02/18 09:30 Temperature Pulse Rate 93 H 93 H 92 H Respiratory Rate 16 16 16 Blood Pressure 126/71 130/72 119/62 Pulse Oximetry 100 100 100 04/02/18 09:45 04/02/18 10:00 04/02/18 10:17 Temperature Pulse Rate 92 H 91 H Respiratory Rate 16 16 20 Blood Pressure 119/66 114/62 129/68 Pulse Oximetry 100 100 89 L 04/02/18 10:30 04/02/18 10:48 04/02/18 11:00 Temperature Pulse Rate 94 H 131 H 93 H Respiratory Rate 16 16 16 Blood Pressure 121/70 121/65 113/63 Pulse Oximetry 100 100 100 04/02/18 11:15 04/02/18 11:30 04/02/18 11:45 Temperature Pulse Rate 92 H 89 90 Respiratory Rate 16 16 16 Blood Pressure 113/65 114/66 113/69 Pulse Oximetry 100 100 100 04/02/18 12:00 04/02/18 12:30 04/02/18 12:45 Temperature 98.8 F Pulse Rate 90 91 H 91 H Respiratory Rate 16 16 16 Blood Pressure 93/69 L 126/70 124/76 Pulse Oximetry 100 100 100 04/02/18 13:00 04/02/18 13:15 04/02/18 13:30 Temperature Pulse Rate 90 90 92 H Respiratory Rate 16 16 16 Blood Pressure 120/70 125/69 132/71 Pulse Oximetry 100 100 100 04/02/18 13:45 04/02/18 14:00 04/02/18 14:15 Temperature Pulse Rate 92 H 94 H 95 H Respiratory Rate 16 17 16 Blood Pressure 133/76 132/79 129/75 Pulse Oximetry 100 99 100 04/02/18 14:30 04/02/18 14:45 04/02/18 15:00 Temperature Pulse Rate 93 H 89 92 H Respiratory Rate 16 16 17 Blood Pressure 127/72 111/69 133/78 Pulse Oximetry 99 99 99 04/02/18 15:15 04/02/18 15:30 04/02/18 15:45 Temperature Pulse Rate 90 90 92 H Respiratory Rate 16 16 16 Blood Pressure 119/63 123/68 134/77 Pulse Oximetry 99 99 99 04/02/18 16:00 04/02/18 16:15 04/02/18 16:22 Temperature 98.4 F Pulse Rate 92 H 95 H Respiratory Rate 16 16 16 Blood Pressure 147/98 H 135/80 Pulse Oximetry 99 99 100 04/02/18 16:30 04/02/18 16:45 04/02/18 17:00 Temperature Pulse Rate 95 H 95 H 93 H Respiratory Rate 16 16 16 Blood Pressure 138/82 136/79 124/69 Pulse Oximetry 99 100 100 04/02/18 17:15 04/02/18 17:30 04/02/18 17:45 Temperature Pulse Rate 93 H 95 H 97 H Respiratory Rate 16 12 12 Blood Pressure 122/62 126/71 123/70 Pulse Oximetry 100 99 99 04/02/18 18:00 04/02/18 18:15 04/02/18 18:30 Temperature Pulse Rate 97 H 96 H 100 H Respiratory Rate 14 14 15 Blood Pressure 130/73 134/73 111/67 Pulse Oximetry 99 99 98 04/02/18 18:45 04/02/18 19:00 04/02/18 19:15 Temperature Pulse Rate 98 H 98 H 97 H Respiratory Rate 15 17 14 Blood Pressure 177/79 H 133/76 138/82 Pulse Oximetry 98 98 98 04/02/18 19:30 04/02/18 19:45 04/02/18 20:00 Temperature 99.6 F Pulse Rate 97 H 92 H 96 H Respiratory Rate 14 14 14 Blood Pressure 131/71 141/78 H 127/77 Pulse Oximetry 98 99 99 04/02/18 20:15 04/02/18 20:30 04/02/18 20:45 Temperature Pulse Rate 92 H 99 H 96 H Respiratory Rate 14 14 14 Blood Pressure 137/78 151/72 H 127/73 Pulse Oximetry 100 99 99 04/02/18 21:00 04/02/18 21:15 04/02/18 21:30 Temperature Pulse Rate 106 H 103 H 101 H Respiratory Rate 14 14 14 Blood Pressure 114/62 144/79 H 144/86 H Pulse Oximetry 99 100 100 04/02/18 21:45 04/02/18 22:00 04/02/18 22:15 Temperature Pulse Rate 98 H 100 H 97 H Respiratory Rate 14 14 14 Blood Pressure 135/76 142/78 H 137/79 Pulse Oximetry 100 100 100 04/02/18 22:30 04/02/18 22:45 04/02/18 23:00 Temperature Pulse Rate 97 H 93 H 93 H Respiratory Rate 14 14 14 Blood Pressure 137/73 129/70 129/72 Pulse Oximetry 98 99 99 04/02/18 23:15 04/02/18 23:30 04/02/18 23:45 Temperature Pulse Rate 93 H 93 H 92 H Respiratory Rate 14 14 14 Blood Pressure 131/89 125/81 128/81 Pulse Oximetry 99 99 100 04/03/18 00:00 04/03/18 00:06 04/03/18 00:15 Temperature 99.2 F Pulse Rate 94 H 96 H Respiratory Rate 14 14 14 Blood Pressure 132/78 133/72 Pulse Oximetry 99 99 99 04/03/18 00:30 04/03/18 00:45 04/03/18 01:00 Temperature Pulse Rate 104 H 99 H 98 H Respiratory Rate 14 14 14 Blood Pressure 145/85 H 128/74 126/78 Pulse Oximetry 98 99 99 04/03/18 01:15 04/03/18 01:30 04/03/18 01:45 Temperature Pulse Rate 94 H 94 H 94 H Respiratory Rate 14 14 14 Blood Pressure 118/72 123/71 116/66 Pulse Oximetry 99 99 100 04/03/18 02:00 04/03/18 02:15 04/03/18 02:30 Temperature Pulse Rate 90 90 87 Respiratory Rate 14 14 14 Blood Pressure 115/65 114/71 115/71 Pulse Oximetry 99 99 99 04/03/18 02:45 04/03/18 03:00 04/03/18 03:53 Temperature Pulse Rate 88 89 Respiratory Rate 14 14 14 Blood Pressure 115/70 119/74 Pulse Oximetry 99 99 99 04/03/18 04:00 04/03/18 04:41 04/03/18 05:00 Temperature Pulse Rate 93 H 99 H 98 H Respiratory Rate 14 14 14 Blood Pressure 125/81 124/66 Pulse Oximetry 98 99 04/03/18 06:00 04/03/18 07:00 04/03/18 07:38 Temperature Pulse Rate 97 H 97 H Respiratory Rate 14 14 14 Blood Pressure 140/71 160/70 H Pulse Oximetry 99 98 98 Intake & Output 04/02/18 04/03/18 04/03/18 18:59 06:59 18:59 Intake Total 1867.5 / 1867.5 2417.5 / 2417.5 Output Total 1200 / 1200 1100 / 1100 Balance 667.5 / 667.5 1317.5 / 1317.5 Weight 86.3 kg Intake: IV 1867.5 / 1867.5 2417.5 / 2417.5 NS Inj 1,000 ML @ 30 mls/hr IV. 1000 / 1000 1750 / 1750 CONT .Q24H [facility] Rx#:[id number] Zosyn 3.375 GM Premix 3.375 gm 50 / 50 In 50 ml @ 100 mls/hr IV.SIG Q6HR [facility] Rx#:[id number] Zosyn 4.5 GM Premix 4.5 gm In 50 / 50 150 / 150 100 ml @ 200 mls/hr IV.SIG Q6H [facility] Rx#:[id number] Vancomycin Inj 1,750 MG In NS 517.5 / 517.5 517.5 / 517.5 Inj 500 ML @ 250 mls/hr IV.SIG Q12H [facility] Rx#:[id number] fentaNYL 10 mcg/mL Premix Drip 250 / 250 2,500 mcg In 250 ml @ 50 MCG/HR 5 mls/hr IV.SIG TITRATE PRN Rx #:[id number] Output: Urine Amount (Catheter) 1200 / 1200 1000 / 1000 Indwelling Urethral Catheter 1200 / 1200 1000 / 1000 Gastric Drainage 100 / 100 Orogastric Tube 100 / 100 Narrative: on vent still some inc tone and lue tremor - Urinary Catheter Management Indwelling Urethral Catheter Cath placed during this visit: yes Reason for continuing: Hourly intake/output Insertion date: 03/31/18 Insertion time: 18:00 Objective Laboratory Results - last 24 hr 04/02/18 04/02/18 04/02/18 09:20 09:20 09:20 WBC RBC Hgb Hct MCV MCH MCHC RDW Plt Count MPV Neut % (Auto) Lymph % (Auto) Cross % (Auto) Eos % (Auto) Baso % (Auto) Neut # (Auto) Lymph # (Auto) Cross # (Auto) Eos # (Auto) Baso # (Auto) WBC Differential Differential Comment Sodium Potassium Chloride Carbon Dioxide Anion Gap BUN Creatinine Estimated GFR Random Glucose Calcium Total Bilirubin AST ALT Alkaline Phosphatase Ammonia Total Creatine Kinase 87 Troponin I Less than 0.02 L B-Natriuretic Peptide 9 Total Protein Albumin Lipase 60 L Cancelled TSH 1.280 04/03/18 04/03/18 04/03/18 04:10 04:10 04:10 WBC 12.6 H RBC 3.50 L Hgb 10.9 L Hct 32.3 L MCV 92.3 MCH 31.2 MCHC 33.8 RDW 14.6 Plt Count 234 MPV 7.0 Neut % (Auto) 87.9 H Lymph % (Auto) 4.4 L Cross % (Auto) 7.0 Eos % (Auto) 0.6 Baso % (Auto) 0.1 Neut # (Auto) 11.1 H Lymph # (Auto) 0.6 L Cross # (Auto) 0.9 Eos # (Auto) 0.1 Baso # (Auto) 0.0 WBC Differential . Differential Comment Auto diff final Sodium 143 Potassium 3.1 L Chloride 109 H Carbon Dioxide 26.1 Anion Gap 8 BUN 11 Creatinine 0.70 Estimated GFR Greater than 89 Random Glucose 73 L Calcium 8.1 L Total Bilirubin 0.7 AST 21 ALT 34 Alkaline Phosphatase 49 Ammonia 19 Total Creatine Kinase Troponin I B-Natriuretic Peptide Total Protein 5.5 L Albumin 2.2 L Lipase TSH Microbiology 04/01/18 18:15 Gram Stain - Final Lumbar Puncture CSF Culture - Preliminary No growth in 48 hours 04/01/18 06:00 Gram Stain - Final Sputum - Endotracheal Sputum Culture - Preliminary gram negative rods 03/31/18 19:04 Aerobic Blood Culture - Preliminary Blood - Peripheral No growth in 2 days Anaerobic Blood Culture - Preliminary No growth in 2 days 03/31/18 19:09 Aerobic Blood Culture - Preliminary Blood - Peripheral No growth in 2 days Anaerobic Blood Culture - Preliminary No growth in 2 days Review/Management - Review/Management Plan: Encephalopathy Likely secondary to respiratory failure, hypoxia, metabolic etiology Respiratory failure - Lactic acidosis - Hyperammonemia - Leukocytosis - Neuro checks Q1h - MRI brain and head CT scan was unremarkable for an acute intracranial abnormality - Will reassess after patient he is off sedation. - CSF analysis is unremarkable, pending culture and HSV PCR results - EEG with evidence of encephalopathy, no epileptiform discharges or electrographic seizure activity - I met with family members and discussed the current neurologic status - There is no indication to start AEDs. -DVT prophylaxis - GI prophylaxis - Neurology will follow up. - Dr. Farias will follow up on Tuesday04/03/2018. - Please call for questions 04/03/18 met encep mri LP eeg neg labs neg my hope is off sedatives he should do fine no hx dementia nor pd acc to daughters labs ordered few more
[2018-04-03] MEDS: Chlorhexidine 0.12% Oral Kit 15 ML UDC OROPHARYNG SCH ×2 (08:57→20:16)
[2018-04-03] MEDS: Sod Chloride 0.9% Inj 1,000 ML IV.CONT SCH ×2 (08:58→11:31)
[2018-04-03] MEDS: Senna/Docusate Sodium 8.6/50 MG Tablet PO SCH ×2 (09:00→20:14)
[2018-04-03] MEDS: Famotidine PF Inj 20 MG/2 ML Vial IV.PUSH SCH ×2 (09:00→20:14)
[2018-04-03 09:11] LABS: RPR Screen For Reflex FTA Nonreactive (Nonreactive)
[2018-04-03] MEDS: Vancomycin Inj 1,750 MG in Sodium Chlor 0.9% Inj 500 ML IV.SIG SCH (09:18)
[2018-04-03] MEDS ORDERED: Pharmacy Ordered Lab Info OTHER ONE (09:45)
[2018-04-03] MEDS ORDERED: Magnesium Sulfate Inj 2 GM in Sodium Chlor 0.9% Inj 96 ML IV.SIG PRN (10:59)
[2018-04-03] MEDS ORDERED: Potassium Chlor 20 mEq Premix 20 MEQ/100 ML PIGGYBACK IV.SIG PRN ×2 (10:59)
[2018-04-03] MEDS ORDERED: Potassium Chlor 40 mEq Premix 40 MEQ/100 ML PIGGYBACK IV.SIG PRN (10:59)
[2018-04-03] MEDS ORDERED: Magnesium Sulfate Inj 4 GM in Sodium Chlor 0.9% Inj 92 ML IV.SIG PRN (10:59)
[2018-04-03] MEDS ORDERED: Potassium Chloride Liq 20 MEQ/15 ML UDC PO PRN (10:59)
[2018-04-03] MEDS ORDERED: Potassium Phosphate 500 MG Soluble Tablet PO PRN ×2 (10:59)
[2018-04-03] MEDS ORDERED: Potassium Phosphate Inj 30 MMOL in Sodium Chlor 0.9% Inj 250 ML IV.SIG PRN (10:59)
[2018-04-03] MEDS ORDERED: Sodium Phosphate Inj 30 MMOL in Sodium Chlor 0.9% Inj 250 ML IV.SIG PRN (10:59)
[2018-04-03] MEDS ORDERED: Magnesium Oxide 400 MG Tablet PO PRN (10:59)
[2018-04-03] MEDS: Potassium Chlor 40 mEq Premix 40 MEQ/100 ML PIGGYBACK IV.SIG PRN ×3 (11:30→23:13)
--- NOTE | 2018-04-03 14:30 | P.PNID ---
Subjective Remarks: remians on vent , FiO2 35%, PEEP 5% Neurosurgery input appreciated sp LP b/s last night - CSF unremarkable, NGTD @ 48 hrs sputum growing Leb oxytoca no fever WBC down to 12.6K Antibiotics: vanco zosyn Allergies/Adverse Reactions: Allergies Sulfa (Sulfonamide Antibiotics) Allergy (Severe, Verified 02/15/18 05:02) Nausea also flu like symptoms Objective Vital Signs 04/02/18 14:30 04/02/18 14:45 04/02/18 15:00 Temperature Pulse Rate 93 H 89 92 H Respiratory Rate 16 16 17 Blood Pressure 127/72 111/69 133/78 Pulse Oximetry 99 99 99 04/02/18 15:15 04/02/18 15:30 04/02/18 15:45 Temperature Pulse Rate 90 90 92 H Respiratory Rate 16 16 16 Blood Pressure 119/63 123/68 134/77 Pulse Oximetry 99 99 99 04/02/18 16:00 04/02/18 16:15 04/02/18 16:22 Temperature 98.4 F Pulse Rate 92 H 95 H Respiratory Rate 16 16 16 Blood Pressure 147/98 H 135/80 Pulse Oximetry 99 99 100 04/02/18 16:30 04/02/18 16:45 04/02/18 17:00 Temperature Pulse Rate 95 H 95 H 93 H Respiratory Rate 16 16 16 Blood Pressure 138/82 136/79 124/69 Pulse Oximetry 99 100 100 04/02/18 17:15 04/02/18 17:30 04/02/18 17:45 Temperature Pulse Rate 93 H 95 H 97 H Respiratory Rate 16 12 12 Blood Pressure 122/62 126/71 123/70 Pulse Oximetry 100 99 99 04/02/18 18:00 04/02/18 18:15 04/02/18 18:30 Temperature Pulse Rate 97 H 96 H 100 H Respiratory Rate 14 14 15 Blood Pressure 130/73 134/73 111/67 Pulse Oximetry 99 99 98 04/02/18 18:45 04/02/18 19:00 04/02/18 19:15 Temperature Pulse Rate 98 H 98 H 97 H Respiratory Rate 15 17 14 Blood Pressure 177/79 H 133/76 138/82 Pulse Oximetry 98 98 98 04/02/18 19:30 04/02/18 19:45 04/02/18 20:00 Temperature 99.6 F Pulse Rate 97 H 92 H 96 H Respiratory Rate 14 14 14 Blood Pressure 131/71 141/78 H 127/77 Pulse Oximetry 98 99 99 04/02/18 20:15 04/02/18 20:30 04/02/18 20:45 Temperature Pulse Rate 92 H 99 H 96 H Respiratory Rate 14 14 14 Blood Pressure 137/78 151/72 H 127/73 Pulse Oximetry 100 99 99 04/02/18 21:00 04/02/18 21:15 04/02/18 21:30 Temperature Pulse Rate 106 H 103 H 101 H Respiratory Rate 14 14 14 Blood Pressure 114/62 144/79 H 144/86 H Pulse Oximetry 99 100 100 04/02/18 21:45 04/02/18 22:00 04/02/18 22:15 Temperature Pulse Rate 98 H 100 H 97 H Respiratory Rate 14 14 14 Blood Pressure 135/76 142/78 H 137/79 Pulse Oximetry 100 100 100 04/02/18 22:30 04/02/18 22:45 04/02/18 23:00 Temperature Pulse Rate 97 H 93 H 93 H Respiratory Rate 14 14 14 Blood Pressure 137/73 129/70 129/72 Pulse Oximetry 98 99 99 04/02/18 23:15 04/02/18 23:30 04/02/18 23:45 Temperature Pulse Rate 93 H 93 H 92 H Respiratory Rate 14 14 14 Blood Pressure 131/89 125/81 128/81 Pulse Oximetry 99 99 100 04/03/18 00:00 04/03/18 00:06 04/03/18 00:15 Temperature 99.2 F Pulse Rate 94 H 96 H Respiratory Rate 14 14 14 Blood Pressure 132/78 133/72 Pulse Oximetry 99 99 99 04/03/18 00:30 04/03/18 00:45 04/03/18 01:00 Temperature Pulse Rate 104 H 99 H 98 H Respiratory Rate 14 14 14 Blood Pressure 145/85 H 128/74 126/78 Pulse Oximetry 98 99 99 04/03/18 01:15 04/03/18 01:30 04/03/18 01:45 Temperature Pulse Rate 94 H 94 H 94 H Respiratory Rate 14 14 14 Blood Pressure 118/72 123/71 116/66 Pulse Oximetry 99 99 100 04/03/18 02:00 04/03/18 02:15 04/03/18 02:30 Temperature Pulse Rate 90 90 87 Respiratory Rate 14 14 14 Blood Pressure 115/65 114/71 115/71 Pulse Oximetry 99 99 99 04/03/18 02:45 04/03/18 03:00 04/03/18 03:53 Temperature Pulse Rate 88 89 Respiratory Rate 14 14 14 Blood Pressure 115/70 119/74 Pulse Oximetry 99 99 99 04/03/18 04:00 04/03/18 04:41 04/03/18 05:00 Temperature Pulse Rate 93 H 99 H 98 H Respiratory Rate 14 14 14 Blood Pressure 125/81 124/66 Pulse Oximetry 98 99 04/03/18 06:00 04/03/18 07:00 04/03/18 07:38 Temperature Pulse Rate 97 H 97 H Respiratory Rate 14 14 14 Blood Pressure 140/71 160/70 H Pulse Oximetry 99 98 98 04/03/18 08:00 04/03/18 08:25 04/03/18 09:00 Temperature 98.4 F Pulse Rate 87 97 H 87 Respiratory Rate 14 14 Blood Pressure 108/57 L 101/59 L Pulse Oximetry 98 98 04/03/18 10:00 04/03/18 10:32 04/03/18 11:00 Temperature 98.1 F Pulse Rate 87 96 H 88 Respiratory Rate 14 14 Blood Pressure 102/59 L 103/61 Pulse Oximetry 98 95 04/03/18 11:17 04/03/18 12:00 04/03/18 12:20 Temperature 98.1 F Pulse Rate 81 79 Respiratory Rate 14 14 Blood Pressure 93/62 L Pulse Oximetry 95 96 Intake & Output 04/02/18 04/03/18 04/03/18 18:59 06:59 18:59 Intake Total 1867.5 / 1867.5 2417.5 / 2417.5 767.5 / 767.5 Output Total 1200 / 1200 1100 / 1100 Balance 667.5 / 667.5 1317.5 / 1317.5 767.5 / 767.5 Weight 86.3 kg Intake: IV 1867.5 / 1867.5 2417.5 / 2417.5 767.5 / 767.5 Precedex Inj 200 MCG In NS Inj 50 / 50 48 ML @ 0.2 MCG/KG/HR 4.31 mls/ hr IV.CONT TITRATE PRN Rx#: [id number] NS Inj 1,000 ML @ 30 mls/hr IV. 1000 / 1000 1750 / 1750 CONT .Q24H [facility] Rx#:[id number] Zosyn 3.375 GM Premix 3.375 gm 50 / 50 In 50 ml @ 100 mls/hr IV.SIG Q6HR [facility] Rx#:[id number] Zosyn 4.5 GM Premix 4.5 gm In 50 / 50 150 / 150 200 / 200 100 ml @ 200 mls/hr IV.SIG Q6H [facility] Rx#:[id number] Vancomycin Inj 1,750 MG In NS 517.5 / 517.5 517.5 / 517.5 517.5 / 517.5 Inj 500 ML @ 250 mls/hr IV.SIG Q12H [facility] Rx#:[id number] fentaNYL 10 mcg/mL Premix Drip 250 / 250 2,500 mcg In 250 ml @ 50 MCG/HR 5 mls/hr IV.SIG TITRATE PRN Rx #:[id number] Output: Urine Amount (Catheter) 1200 / 1200 1000 / 1000 Indwelling Urethral Catheter 1200 / 1200 1000 / 1000 Gastric Drainage 100 / 100 Orogastric Tube 100 / 100 04/01/18 06:00 Sputum - Endotracheal Gram Stain - Final 04/01/18 06:00 Sputum - Endotracheal Sputum Culture - Final Klebsiella oxytoca 03/31/18 19:04 Blood - Peripheral Aerobic Blood Culture - Preliminary No growth in 3 days 03/31/18 19:04 Blood - Peripheral Anaerobic Blood Culture - Preliminary No growth in 3 days 03/31/18 19:09 Blood - Peripheral Aerobic Blood Culture - Preliminary No growth in 3 days 03/31/18 19:09 Blood - Peripheral Anaerobic Blood Culture - Preliminary No growth in 3 days 04/01/18 18:15 Lumbar Puncture Gram Stain - Final 04/01/18 18:15 Lumbar Puncture CSF Culture - Preliminary No growth in 48 hours 04/01/18 06:00 Nasal Wash Influenza Types A,B Antigen - Final Negative for FLU A and B antigen Infection due to influenza A or B cannot be ruled out since the antigen present in the sample may be below the detection limit of the test. Lab - Hematology Results 04/02/18 04/03/18 04/03/18 04:25 04:10 04:10 WBC 17.7 H 12.6 H RBC 4.01 L 3.50 L Hgb 12.3 L 10.9 L Hct 37.6 L 32.3 L MCV 93.9 92.3 MCH 30.6 31.2 MCHC 32.6 33.8 RDW 14.5 14.6 Plt Count 245 234 MPV 6.8 L 7.0 Neut % (Auto) 87.2 H 87.9 H Lymph % (Auto) 6.0 L 4.4 L [place] % (Auto) 6.3 7.0 Eos % (Auto) 0.2 0.6 Baso % (Auto) 0.3 0.1 Neut # (Auto) 15.4 H 11.1 H Lymph # (Auto) 1.1 0.6 L [place] # (Auto) 1.1 H 0.9 Eos # (Auto) 0.0 0.1 Baso # (Auto) 0.1 0.0 WBC Differential . . Differential Comment Auto diff final Auto diff final ESR 46 H Lab - Chemistry Results 04/01/18 04/02/18 04/02/18 22:15 04:25 04:25 Sodium 140 140 Potassium 3.5 3.6 Chloride 107 106 Carbon Dioxide 26.0 28.7 Anion Gap 7 5 BUN 17 15 Creatinine 0.76 0.75 Estimated GFR Greater than 89 Greater than 89 Random Glucose 86 80 Calcium 7.7 L 8.1 L Total Bilirubin 1.1 H 0.9 GGT 49 AST 29 29 ALT 53 51 Alkaline Phosphatase 50 53 Ammonia 13 Total Creatine Kinase Troponin I C-Reactive Protein B-Natriuretic Peptide Total Protein 5.3 L 5.8 L Albumin 2.5 L 2.6 L Lipase TSH 04/02/18 04/02/18 04/02/18 09:20 09:20 09:20 Sodium Potassium Chloride Carbon Dioxide Anion Gap BUN Creatinine Estimated GFR Random Glucose Calcium Total Bilirubin GGT AST ALT Alkaline Phosphatase Ammonia Total Creatine Kinase 87 Troponin I Less than 0.02 L C-Reactive Protein B-Natriuretic Peptide 9 Total Protein Albumin Lipase 60 L Cancelled TSH 1.280 04/03/18 04/03/18 04/03/18 04:10 04:10 09:00 Sodium 143 Potassium 3.1 L Chloride 109 H Carbon Dioxide 26.1 Anion Gap 8 BUN 11 Creatinine 0.70 Estimated GFR Greater than 89 Random Glucose 73 L Calcium 8.1 L Total Bilirubin 0.7 GGT AST 21 ALT 34 Alkaline Phosphatase 49 Ammonia 19 Total Creatine Kinase Troponin I C-Reactive Protein 23.00 H B-Natriuretic Peptide Total Protein 5.5 L Albumin 2.2 L Lipase TSH Imaging: ITS Impressions Head MRI 03/31/18 00:00 CONCLUSION: Negative exam Head CT 03/31/18 12:[address]: [address] Head non contrast. . Chest CTA 03/31/18 14:39 CONCLUSION: 1. Bibasilar atelectatic changes, left greater than right. No confluent infiltrate. 2. No pulmonary embolus. 3. Atherosclerotic calcification of the coronary arteries. Cervical Spine MRI 03/31/18 16:17 CONCLUSION: 1. Status post fusion at the C5-C6 level. There is susceptibility artifact from the hardware. 2. A significant area of stenosis in the thecal sac is not seen. 3. Facet hypertrophy seen throughout with scattered areas of neural foraminal narrowing as described above. 4. The patient is intubated with fluid in the hypopharynx, laryngeal pharynx, and upper trachea around the ET tube and above the tracheal ET tube cuff. 5. The does appear to be some mild soft tissue swelling in the prevertebral region best seen on the sagittal images. Chest X-Ray 04/02/18 04:00 CONCLUSION: No significant interval change. Mild bilateral lower lung zone atelectasis. Physical Exam: GENERAL: NAD sedated , uint'd SKIN: Warm and dry. HEAD: Atraumatic. Normocephalic. EYES: Pupils equal and round. No scleral icterus. No injection or drainage. ENT: No nasal bleeding or discharge. Mucous membranes pink and moist. NECK: Trachea midline. No JVD. CARDIOVASCULAR: Regular rate and rhythm. RESPIRATORY: No accessory muscle use. Clear to auscultation. Breath sounds equal bilaterally. GASTROINTESTINAL: Abdomen soft, non-tender, nondistended. Hepatic and splenic margins not palpable. MUSCULOSKELETAL: Extremities without clubbing, cyanosis, or edema. No obvious deformities. NEUROLOGICAL: sedated PSYCHIATRIC: unable to assess Assessment and Plan - Plan C spine fusion Hypercapnia difficulty breathing developped after surgery Kleb oxytoca PNA Acute VDRF, improving fever on presentation: resolved ?aspiration dc vanco dc zosyn start CFTX 2 gm case was dw pt 's , dgtr @ b/s breezy CHAUDHARI
[2018-04-03] MEDS: Enoxaparin Inj 30 MG/0.3 ML Syringe SQ SCH ×2 (15:33→15:39)
[2018-04-03] MEDS: Albumin Human 25% Inj 100 ML IV.SIG SCH ×2 (15:41→23:12)
[2018-04-03] MEDS: amLODIPine 10 MG Tablet PO SCH (16:55)
[2018-04-03] MEDS: Labetalol HCl Inj 100 MG/20 ML Vial IV.PUSH PRN (17:20)
[2018-04-03] MEDS ORDERED: Midazolam Inj 5 MG/ML 1 ML Vial ONE (17:35)
[2018-04-03 18:29] LABS: Carbon Dioxide 24.5 meq/L (21.0-32.0)
--- NOTE | 2018-04-03 18:50 | P.PCN ---
Date of procedure: 04/03/18 Procedure: Diagnosis: Hypoxemic Respiratory Failure Procedure: Orotracheal intubation Narrative: Bag mask ventilation. Versed 5 mg and rocuronium 100 mg iv. Intubated orally with 8.0 tube. Position confirmed with CO2 detection, breath sounds sats 100%.
[2018-04-03] MEDS ORDERED: Vancomycin Inj 1,500 MG in Sodium Chlor 0.9% Inj 500 ML IV.SIG SCH (22:00)
[2018-04-04] MEDS: Dexmedetomidine Inj 200 MCG in Sodium Chlor 0.9% Inj 48 ML IV.CONT PRN ×4 (01:41→09:41)
[2018-04-04] MEDS: Sod Chloride 0.9% Inj 1,000 ML IV.CONT SCH ×2 (01:42→11:47)
[2018-04-04] MEDS: fentaNYL 10 mcg/mL Premix Drip 2,500 MCG/250 ML BAG IV.SIG PRN ×2 (01:42→21:34)
[2018-04-04] MEDS: Labetalol HCl Inj 100 MG/20 ML Vial IV.PUSH PRN (02:04)
[2018-04-04] MEDS: Potassium Chlor 40 mEq Premix 40 MEQ/100 ML PIGGYBACK IV.SIG PRN (03:15)
[2018-04-04] MEDS: Chlorhexidine Gluconate 2% 1 Pack (2 Cloths) TOPICAL SCH (03:53)
[2018-04-04] MEDS: Oral Hygiene Kit OROPHARYNG SCH ×3 (03:54→16:50)
[2018-04-04] MEDS: Levothyroxine 125 MCG Tablet PO SCH (05:38)
[2018-04-04 06:22] LABS: Baso # (Auto) 0.1 th/mm3 (0.0-0.2); Baso % (Auto) 0.6 % (0.0-2.0); Eos # (Auto) 0.1 th/mm3 (0.0-0.4); Eos % (Auto) 0.6 % (0.0-4.0); Hematocrit 34.3 % (39.0-51.0); Hemoglobin 11.4 gm/dL (13.0-17.0); Lymph # (Auto) 0.6 th/mm3 (1.0-4.8); Lymph % (Auto) 5.9 % (9.0-44.0); Mean Corpuscular HGB Conc 33.1 % (32.0-36.0); Mean Corpuscular Hemoglobin 30.8 pg (27.0-34.0); Mean Corpuscular Volume 92.9 fL (80.0-100.0); Mean Platelet Volume 7.4 fL (7.0-11.0); Mono # (Auto) 0.7 th/mm3 (0.0-0.9); Mono % (Auto) 7.4 % (0.0-8.0); Neut # (Auto) 8.2 th/mm3 (1.8-7.7); Neut % (Auto) 85.5 % (16.0-70.0); Platelet Count 250 th/mm3 (150-450); Red Blood Count 3.69 mil/mm3 (4.50-5.90); Red Cell Distribution Width 14.7 % (11.6-17.2); White Blood Count 9.6 th/mm3 (4.0-11.0)
[2018-04-04 06:41] LABS: Alanine Aminotransferase 34 U/L (12-78); Albumin 2.9 g/dL (3.4-5.0); Anion Gap 7 meq/L (5-15); Aspartate Aminotransferase 19 U/L (15-37); Blood Urea Nitrogen 13 mg/dL (7-18); Calcium 8.7 mg/dL (8.5-10.1); Carbon Dioxide 27.1 meq/L (21.0-32.0); Chloride 111 meq/L (98-107); Glomerular Filtration Rate 77 mL/min (>89); Glucose,Random 100 mg/dL (74-106); Potassium 3.9 meq/L (3.5-5.1); Sodium 145 meq/L (136-145)
[2018-04-04 06:43] LABS: Alkaline Phosphatase 64 U/L (45-117); Total Protein 6.6 g/dL (6.4-8.2)
--- NOTE | 2018-04-04 07:30 | P.PNCC ---
Subjective Subjective Remarks/Hospital Course: This 67-year-old came into the emergency room today with his and daughter. On 02/13/2018, he had a microdiscectomy, C5-C6, by Dr. Schwarz. He was discharged home the next day. A few days after, he had not been feeling well, short of breath, disoriented, generally weak, symptoms were getting worse, disorientation was worse. He was referred to emergency department by his primary care physician for an evaluation. In the ED he was found to be in severe hypercarbic respiratory acidosis and was intubated by ED attending. 04/01: CO2 retention corrected. Remains mildly alkalotic due to chronic CO2 elevation. PH normalized. Still requiring vasopressor therapy with norepinephrine. Broad-spectrum antibiotic coverage started. Lumbar puncture performed with opening pressure 20 and crystal-clear fluid, sent for cell counts , chemistries and culture. HSV included. One extra tube sent for future studies if necessary. Ammonia level 71 - repeat daily. 04/02: CSF appears benign. Repeat ammonia level normal. Gamma GT normal. Cardiac echo estimated of 45% ejection fraction requires a little additional investigation -patient has been chronically short of breath for several weeks now. Leukocytosis and left shift persists. Gram-positive cocci and white cells seen in sputum. This man clearly became acutely and critically ill - exact cause still eludes us. 04/03: Leukocytosis improved. Remains quite rigid when stimulated. Continues to move 4 limbs with purpose and follows commands with 4 limbs. Sputum demonstrates white blood cells and gram-negative rods. 04/04: Improved color and perfusion. Extubated yesterday afternoon but failed after about 45 minutes -developed somnolence then obtundation, appeared to be having difficulty taking a breath, concern for vocal cord dysfunction. On reintubation the cord edges were irregular but otherwise normal in appearance. I could not assess cord function as patient was not alert enough to cooperate with commands. We will definitely pursue possibilities of vocal cord dysfunction and or phrenic nerve paralysis once we get him extubated. Ideally, a sniff test under fluoroscopy would demonstrate any paradoxical diaphragm motion. Objective Vital Signs / I&O: Vital Signs 04/03/18 07:38 04/03/18 08:00 04/03/18 08:25 Temperature 98.4 F Pulse Rate 87 97 H Respiratory Rate 14 14 Blood Pressure 108/57 L Pulse Oximetry 98 98 04/03/18 09:00 04/03/18 10:00 04/03/18 10:32 Temperature Pulse Rate 87 87 96 H Respiratory Rate 14 14 Blood Pressure 101/59 L 102/59 L Pulse Oximetry 98 98 04/03/18 11:00 04/03/18 11:17 04/03/18 12:00 Temperature 98.1 F 98.1 F Pulse Rate 88 81 Respiratory Rate 14 14 14 Blood Pressure 103/61 93/62 L Pulse Oximetry 95 95 96 04/03/18 12:20 04/03/18 13:00 04/03/18 13:59 Temperature 98.2 F 98.8 F Pulse Rate 79 72 108 H Respiratory Rate 14 46 H Blood Pressure 95/61 L 99/67 L Pulse Oximetry 97 94 L 04/03/18 14:00 04/03/18 14:03 04/03/18 14:14 Temperature 98.8 F 98.8 F Pulse Rate 107 H 110 H 87 Respiratory Rate 16 12 Blood Pressure 119/58 L Pulse Oximetry 94 L 95 04/03/18 15:00 04/03/18 15:07 04/03/18 15:11 Temperature 99.0 F 99.0 F 99.0 F Pulse Rate 77 75 80 Respiratory Rate 14 14 18 Blood Pressure 72/46 L 81/53 L Pulse Oximetry 95 96 96 04/03/18 15:15 04/03/18 15:20 04/03/18 15:21 Temperature 99.0 F Pulse Rate 79 74 Respiratory Rate 14 14 14 Blood Pressure 116/65 Pulse Oximetry 96 97 04/03/18 15:39 04/03/18 15:58 04/03/18 16:00 Temperature 99.0 F 99.0 F 99.0 F Pulse Rate 72 87 89 Respiratory Rate 14 14 14 Blood Pressure 146/77 H 139/74 Pulse Oximetry 97 97 97 04/03/18 16:08 04/03/18 16:18 04/03/18 16:28 Temperature 99.0 F 99.0 F 99.0 F Pulse Rate 87 87 101 H Respiratory Rate 14 14 19 Blood Pressure 140/81 129/74 139/75 Pulse Oximetry 97 96 97 04/03/18 16:38 04/03/18 16:48 04/03/18 16:53 Temperature 99.0 F 98.8 F 98.8 F Pulse Rate 112 H 105 H 138 H Respiratory Rate 25 H 25 H 36 H Blood Pressure 164/97 H 168/98 H 178/109 H Pulse Oximetry 95 94 L 96 04/03/18 16:58 04/03/18 17:00 04/03/18 17:08 Temperature 98.8 F 98.8 F 98.8 F Pulse Rate 135 H 110 H 103 H Respiratory Rate 26 H 21 22 Blood Pressure 143/69 H 152/66 H Pulse Oximetry 96 95 96 04/03/18 17:18 04/03/18 17:25 04/03/18 17:28 Temperature 99.0 F 98.8 F Pulse Rate 107 H 112 H Respiratory Rate 47 H 28 H Blood Pressure 180/92 H 160/75 H Pulse Oximetry 66 L 93 L 92 L 04/03/18 17:38 04/03/18 17:40 04/03/18 17:42 Temperature 98.6 F 98.4 F 98.4 F Pulse Rate 113 H 112 H 109 H Respiratory Rate 23 33 H 13 Blood Pressure 142/68 H 141/67 H 96/51 L Pulse Oximetry 94 L 93 L 96 04/03/18 17:44 04/03/18 17:45 04/03/18 17:46 Temperature 98.4 F 98.6 F Pulse Rate 103 H 102 H Respiratory Rate 30 H 16 16 Blood Pressure 80/47 L 82/51 L Pulse Oximetry 97 97 96 04/03/18 17:48 04/03/18 17:50 04/03/18 17:52 Temperature 98.6 F 98.6 F 98.6 F Pulse Rate 103 H 103 H 103 H Respiratory Rate 14 15 16 Blood Pressure 81/52 L 80/51 L 82/50 L Pulse Oximetry 96 96 95 04/03/18 17:54 04/03/18 17:56 04/03/18 17:58 Temperature 98.6 F 98.6 F 98.6 F Pulse Rate 102 H 101 H 100 H Respiratory Rate 16 16 16 Blood Pressure 86/52 L 90/54 L 94/54 L Pulse Oximetry 96 96 96 04/03/18 18:00 04/03/18 18:02 04/03/18 18:04 Temperature 98.4 F 98.4 F 98.4 F Pulse Rate 100 H 99 H 98 H Respiratory Rate 16 16 16 Blood Pressure 96/56 L 97/56 L 93/55 L Pulse Oximetry 97 97 97 04/03/18 18:05 04/03/18 18:06 04/03/18 18:15 Temperature 98.4 F 98.2 F Pulse Rate 97 H 98 H 97 H Respiratory Rate 16 16 Blood Pressure 93/55 L 98/59 L Pulse Oximetry 96 97 04/03/18 18:30 04/03/18 18:45 04/03/18 19:00 Temperature 98.2 F 98.1 F 98.2 F Pulse Rate 92 H 89 84 Respiratory Rate 16 16 15 Blood Pressure 113/70 128/79 143/88 H Pulse Oximetry 97 98 99 04/03/18 19:15 04/03/18 19:30 04/03/18 19:45 Temperature 98.2 F 98.2 F 98.2 F Pulse Rate 79 74 69 Respiratory Rate 16 16 16 Blood Pressure 144/89 H 160/95 H 165/95 H Pulse Oximetry 98 99 100 04/03/18 20:00 04/03/18 20:15 04/03/18 20:18 Temperature 98.4 F 98.4 F Pulse Rate 76 79 Respiratory Rate 16 16 16 Blood Pressure 134/80 149/90 H Pulse Oximetry 98 99 99 04/03/18 20:22 04/03/18 20:30 04/03/18 20:45 Temperature 98.4 F 98.2 F Pulse Rate 78 86 91 H Respiratory Rate 16 16 14 Blood Pressure 149/95 H 152/89 H Pulse Oximetry 98 99 04/03/18 21:00 04/03/18 21:15 04/03/18 21:30 Temperature 98.1 F 98.1 F 98.2 F Pulse Rate 85 82 76 Respiratory Rate 19 17 16 Blood Pressure 154/89 H 154/92 H 142/81 H Pulse Oximetry 99 99 99 04/03/18 21:45 04/03/18 22:00 04/03/18 22:15 Temperature 98.2 F 98.2 F 98.2 F Pulse Rate 81 75 75 Respiratory Rate 25 H 16 16 Blood Pressure 154/88 H 138/81 150/89 H Pulse Oximetry 98 98 98 04/03/18 22:25 04/03/18 22:30 04/03/18 22:45 Temperature 98.2 F 98.2 F Pulse Rate 74 72 Respiratory Rate 16 17 16 Blood Pressure 151/83 H 155/83 H Pulse Oximetry 98 97 97 04/03/18 23:00 04/03/18 23:02 04/04/18 00:00 Temperature 98.2 F 98.2 F 98.2 F Pulse Rate 70 76 74 Respiratory Rate 16 16 16 Blood Pressure 142/80 H 162/83 H Pulse Oximetry 97 96 96 04/04/18 00:58 04/04/18 01:00 04/04/18 01:33 Temperature 98.4 F 98.4 F Pulse Rate 87 87 Respiratory Rate 19 22 16 Blood Pressure 176/94 H Pulse Oximetry 97 96 97 04/04/18 01:58 04/04/18 02:00 04/04/18 02:58 Temperature 98.1 F 98.1 F 97.9 F Pulse Rate 77 76 70 Respiratory Rate 16 16 16 Blood Pressure 171/84 H 193/93 H Pulse Oximetry 97 97 96 04/04/18 03:00 04/04/18 03:15 04/04/18 03:58 Temperature 97.9 F 97.9 F 98.1 F Pulse Rate 70 70 55 L Respiratory Rate 16 16 16 Blood Pressure 165/99 H 162/86 H Pulse Oximetry 96 97 97 04/04/18 04:00 04/04/18 04:01 04/04/18 04:18 Temperature 98.1 F Pulse Rate 56 L 63 Respiratory Rate 16 16 16 Blood Pressure Pulse Oximetry 96 97 04/04/18 04:58 04/04/18 05:00 04/04/18 05:20 Temperature 98.2 F 98.2 F 98.4 F Pulse Rate 54 L 57 L 53 L Respiratory Rate 16 16 16 Blood Pressure 176/84 H Pulse Oximetry 96 95 96 04/04/18 05:24 04/04/18 05:29 04/04/18 05:47 Temperature 98.4 F 98.4 F 98.4 F Pulse Rate 77 68 72 Respiratory Rate 22 16 16 Blood Pressure 182/91 H Pulse Oximetry 96 96 95 04/04/18 05:51 04/04/18 05:58 04/04/18 06:00 Temperature 98.4 F 98.4 F 98.4 F Pulse Rate 78 71 83 Respiratory Rate 16 16 16 Blood Pressure 190/94 H 197/103 H Pulse Oximetry 96 96 96 04/04/18 06:07 04/04/18 06:08 Temperature 98.6 F 98.6 F Pulse Rate 69 81 Respiratory Rate 16 16 Blood Pressure 166/102 H 199/95 H Pulse Oximetry 96 96 Intake & Output 04/03/18 04/04/18 04/04/18 18:59 06:59 18:59 Intake Total 1267.5 / 1267.5 650 / 650 Output Total 4200 / 4200 3500 / 3500 Balance -2932.5 / -2932.5 -2850 / -2850 Weight 84.9 kg Intake: IV 1267.5 / 1267.5 650 / 650 Precedex Inj 200 MCG In NS Inj 50 / 50 200 / 200 48 ML @ 0.2 MCG/KG/HR 4.31 mls/ hr IV.CONT TITRATE PRN Rx#: [id number] Versed Inj 100 mg In 100 ml @ 2 100 / 100 MG/HR 2 mls/hr IV.CONT TITRATE PRN Rx#:[id number] Flexbumin 25% Inj 100 ML @ 60 100 / 100 100 / 100 mls/hr IV.SIG Q8H GIGI Rx#: [id number] Zosyn 4.5 GM Premix 4.5 gm In 200 / 200 100 ml @ 200 mls/hr IV.SIG Q6H GIGI Rx#:[id number] KCl 40 mEq Premix Inj 40 meq In 200 / 200 100 / 100 100 ml @ 25 mls/hr IV.SIG Q2H PRN Rx#:[id number] Vancomycin Inj 1,750 MG In NS 517.5 / 517.5 Inj 500 ML @ 250 mls/hr IV.SIG Q12H GIGI Rx#:[id number] Rocephin Inj 2,000 MG In NS Inj 100 / 100 100 ML @ 200 mls/hr IV.SIG Q24H GIGI Rx#:[id number] fentaNYL 10 mcg/mL Premix Drip 250 / 250 2,500 mcg In 250 ml @ 50 MCG/HR 5 mls/hr IV.SIG TITRATE PRN Rx #:[id number] Output: Urine Amount (Catheter) 4200 / 4200 3300 / 3300 Indwelling Urethral Catheter 4200 / 4200 3300 / 3300 Gastric Drainage 200 / 200 Orogastric Tube 200 / 200 Result Diagrams: 04/04/18 05:20 04/04/18 05:20 Objective Remarks: - Constitutional Sedated and intubated on mechanical ventilation - Routine HEENT Exam Head: Present: normocephalic, atraumatic ENT: Present: mucous membranes moist - Routine Neck Exam Orotracheal intubation. Absent: JVD, carotid bruit - Routine Respiratory Exam Present: patient mechanically ventilated. Good bilateral air movement. Absent : rhonchi, stridor, wheezes - Routine Cardiovascular Exam Present: RRR, S1, S2, no JVD. - Routine Abdominal Exam Present: soft, normoactive bowel sounds. No guarding. Absent: tenderness, distended - Routine Extremities Exam Absent: cyanosis, clubbing, edema. Toes and fingers warm and well-perfused. - Routine Skin Exam Present: intact. Absent: cyanosis, erythema - Routine Neurological Exam Present: Neck and extremity rigidity persists when stimulated. Intention tremors persist. Deep tendon reflexes at knee 3+ bilaterally. Unable to test clonus due to voluntary rigidity at ankles. PERRL. Follows commands when sedation is. Assessment and Plan - Assessment and Plan Plan: Respiratory failure -Hypercarbic respiratory failure, resolved -Vent bundle -Restraints ordered -Needs sniff test to assess diaphragmatic function -Following extubation we will examine vocal cords as well. -Required reintubation 04/03 45 minutes after extubation. -Klebsiella pneumonia Altered mental status -Due to above -CT head negative -MRI of the neck negative -Supportive care -Lumbar puncture performed, fluid clear, benign cell counts and chemistries -Ammonia level on recheck is normal, gamma GT normal -Ammonia remains normal no evidence of liver dysfunction -EEG without seizure activity Hypotension -Aggressive IV fluid resuscitation -Central line and Levophed to keep map above 65 -Blood culture -CSF culture -Broad antibiotic coverage continued -Not requiring vasopressor support anymore -Repeat cardiac markers, normal -Now hypertensive, amlodipine and lisinopril started -Begin Lopressor 12.5 mg p.o. twice daily -Ejection fraction 45%, further workup following this acute injury. Hypothyroidism -TSH and T4 within normal limits -Continue Synthroid -Repeat TSH normal Dyslipidemia - Pravastatin continued DVT GI prophylaxis -Teds SCDs -Subcu heparin -Pepcid Overall impression: This gentleman arrived critically ill with what appears to have been distributive shock and sepsis. We have been unable to wean him from mechanical ventilation. He failed extubation on 04/03 within an hour. Depressed left ventricular function is concerning -no evidence of an acute cardiac event. Two distinctly separate pathologies exist. First, he has had breathing problems since his cervical spine surgery approximately 6 weeks ago which may reflect vocal cord dysfunction or phrenic nerve/diaphragmatic dysfunction. Second, he acutely developed sepsis (temperature 103, leukocytosis with shift, hypotension, encephalopathy, and respiratory failure), the etiology of which appears to be a Klebsiella pneumonia. Although the 2 processes are unrelated, his underlying breathing difficulty is making it harder for us to get him off of ventilator. Critical care time 50 minutes aside from procedures.
--- NOTE | 2018-04-04 07:48 | P.PNNEU ---
Subjective Active Medications: Active Medications Acetaminophen (Tylenol) 650 mg PO Q4H PRN PRN Reason: Temp > 100.4 Last Admin: 04/01/18 15:53 Dose: 650 mg Al Hydroxide/Mg Hydroxide (Milk Of [place]) 30 ml PO Q12H PRN PRN Reason: Mild Constipation Albuterol (Duoneb Neb (Prn)) 1 ampul NEB Q4HR NEB PRN PRN Reason: SHORTNESS OF BREATH Last Admin: 04/03/18 16:48 Dose: 1 ampul Albuterol (Duoneb Neb (Je)) 1 ampul NEB Q6HR NEB [facility] Last Admin: 04/04/18 04:00 Dose: 1 ampul Amlodipine Besylate (Norvasc) 10 mg PO DAILY [facility] Last Admin: 04/03/18 16:55 Dose: Not Given Aspirin (Ecotrin) 81 mg PO DAILY [facility] Last Admin: 04/03/18 08:58 Dose: Not Given Chlorhexidine Gluconate (Peridex 0.12% Oral Kit) 15 ml OROPHARYNG BID@0800, 2000 [facility] Last Admin: 04/03/18 20:16 Dose: 15 ml Chlorhexidine Gluconate (Chlorhexidine 2% Cloth) 3 pack TOPICAL DAILY@0400 [facility] Stop: 04/06/18 03:59 Last Admin: 04/04/18 03:53 Dose: 3 pack Chlorhexidine Gluconate (Chlorhexidine 2% Cloth) 3 pack TOPICAL DAILY@0400 PRN PRN Reason: Extra cloth needed Stop: 04/06/18 03:59 Clonidine HCl (Catapres) 0.1 mg PO Q12HR [facility] Enoxaparin Sodium (Lovenox Inj) 30 mg SQ Q24H [facility] Last Admin: 04/03/18 15:39 Dose: 30 mg Famotidine (Pepcid Pf Inj) 20 mg IV.PUSH Q12HR [facility] Last Admin: 04/03/18 20:14 Dose: 20 mg Sodium Chloride (Ns Inj) 1,000 mls @ 30 mls/hr IV.CONT .Q24H [facility] Last Admin: 04/04/18 01:42 Dose: 30 mls/hr Fentanyl (Fentanyl 10 Mcg/Ml Premix Drip) 2,500 mcg in 250 mls @ 5 mls/hr IV.SIG TITRATE PRN; Protocol PRN Reason: Per Protocol Last Admin: 04/04/18 01:42 Dose: 150 mcg/hr, 15 mls/hr Midazolam HCl (Versed Inj) 100 mg in 100 mls @ 2 mls/hr IV.CONT TITRATE PRN; Protocol PRN Reason: See protocol Last Titration: 04/03/18 12:16 Dose: Infused Norepinephrine Bitartrate (Levophed-Dextrose 4 Mg/250 Ml Drip) 4 mg in 250 mls @ 7.5 mls/hr IV.SIG TITRATE PRN; Protocol PRN Reason: Per Protocol Last Titration: 04/03/18 20:00 Dose: 0 mcg/min, 0 mls/hr Dexmedetomidine HCl 200 mcg/ (Sodium Chloride) 50 mls @ 4.31 mls/hr IV.CONT TITRATE PRN; Protocol PRN Reason: Per Protocol Last Admin: 04/04/18 06:40 Dose: 1 mcg/kg/hr, 21.57 mls/hr Magnesium Sulfate 4 gm/ Sodium (Chloride) 100 mls @ 50 mls/hr IV.SIG UNSCH PRN PRN Reason: For Magnesium 0.9 - 1.1 mg/dL Magnesium Sulfate 2 gm/ Sodium (Chloride) 100 mls @ 50 mls/hr IV.SIG UNSCH PRN PRN Reason: For Magnesium 1.2 - 1.6 mg/dL Potassium Chloride (Kcl 40 Meq Premix Inj) 40 meq in 100 mls @ 25 mls/hr IV.SIG Q2H PRN PRN Reason: For Potassium 2.8 - 3.2 mEq/L Last Admin: 04/04/18 03:15 Dose: 25 mls/hr Potassium Chloride (Kcl 20 Meq Premix Inj) 20 meq in 100 mls @ 50 mls/hr IV.SIG Q2H PRN PRN Reason: For Potassium 3.3 - 3.5 mEq/L Potassium Chloride (Kcl 20 Meq Premix Inj) 20 meq in 100 mls @ 50 mls/hr IV.SIG Q2H PRN PRN Reason: For Potassium 2.8 - 3.2 mEq/L Potassium Phosphate 30 mmol/ (Sodium Chloride) 260 mls @ 42 mls/hr IV.SIG UNSCH PRN PRN Reason: SEE LABEL COMMENTS Sodium Phosphate 30 mmol/ (Sodium Chloride) 260 mls @ 42 mls/hr IV.SIG UNSCH PRN PRN Reason: For Phosphorus < 2.5 mg/dL Potassium Chloride (Kcl 40 Meq Premix Inj) 40 meq in 100 mls @ 25 mls/hr IV.SIG UNSCH PRN PRN Reason: For Potassium 3.3 - 3.5 mEq/L Ceftriaxone Sodium 2,000 mg/ (Sodium Chloride) 100 mls @ 200 mls/hr IV.SIG Q24H [facility] Last Infusion: 04/03/18 16:25 Dose: Infused Albumin Human (Flexbumin 25% Inj) 100 mls @ 60 mls/hr IV.SIG Q8H [facility] Stop: 04/04/18 23:00 Last Infusion: 04/04/18 00:53 Dose: Infused Labetalol HCl (Trandate Inj) 20 mg IV.PUSH Q1H PRN PRN Reason: SBP > 160 Last Admin: 04/04/18 02:04 Dose: 20 mg Lactulose (Lactulose Liq) 30 ml PO TID [facility] Last Admin: 04/03/18 17:01 Dose: Not Given Levothyroxine Sodium (Synthroid) 125 mcg PO DAILY@0600 [facility] Last Admin: 04/04/18 05:38 Dose: 125 mcg Lisinopril (Prinivil) 5 mg PO DAILY [facility] Magnesium Oxide (Mag-Ox) 800 mg PO UNSCH PRN PRN Reason: For Magnesium 1.2 - 1.6 mg/dL Metoprolol Tartrate (Lopressor) 12.5 mg PO BID [facility] Miscellaneous Information ([facility] Ordered Lab Info) 0 each OTHER ONCE ONE Stop: 04/05/18 09:46 Miscellaneous Medication () 1 each OROPHARYNG 0000,0400,1200,1600 [facility] Last Admin: 04/04/18 03:54 Dose: 1 each Ondansetron HCl (Zofran Inj) 4 mg IV.PUSH Q6H PRN PRN Reason: NAUSEA OR VOMITING Potassium Chloride (Kcl Liq) 40 meq PO UNSCH PRN PRN Reason: Potassium level 3.3-3.5 mEq/L Potassium Chloride (Kcl Liq) 40 meq PO UNSCH PRN PRN Reason: Potassium level 3.3-3.5 mEq/L Potassium Phosphate (K-Phos Original) 2,000 mg PO Q4H PRN PRN Reason: Phosphorus Less Than 2.5 mg/dL Potassium Phosphate (K-Phos Original) 2,000 mg PO UNSCH PRN PRN Reason: SEE LABEL COMMENTS Pravastatin Sodium (Pravachol) 40 mg PO [facility] Last Admin: 04/03/18 20:14 Dose: 40 mg Senna/Docusate Sodium (Celine-Colace) 1 tab PO BID [facility] Last Admin: 04/03/18 20:14 Dose: 1 tab Sodium Chloride (Ns Flush) 2 ml IV.FLUSH BID [facility] Last Admin: 04/03/18 20:15 Dose: 2 ml Sodium Chloride (Ns Flush) 2 ml IV.FLUSH PRN PRN PRN Reason: FLUSH AFTER USING IV ACCESS Terbutaline Sulfate (Brethine Inj) 1 mg SQ UNSCH PRN PRN Reason: For Extravasation Allergies/Adverse Reactions: Allergies Allergy/AdvReac Type Severity Reaction Status Date / Time Sulfa (Sulfonamide Allergy Severe Nausea Verified 02/15/18 05:02 Antibiotics) Physical Exam Vital signs: Vital Signs 04/03/18 08:00 04/03/18 08:25 04/03/18 09:00 Temperature 98.4 F Pulse Rate 87 97 H 87 Respiratory Rate 14 14 Blood Pressure 108/57 L 101/59 L Pulse Oximetry 98 98 04/03/18 10:00 04/03/18 10:32 04/03/18 11:00 Temperature 98.1 F Pulse Rate 87 96 H 88 Respiratory Rate 14 14 Blood Pressure 102/59 L 103/61 Pulse Oximetry 98 95 04/03/18 11:17 04/03/18 12:00 04/03/18 12:20 Temperature 98.1 F Pulse Rate 81 79 Respiratory Rate 14 14 Blood Pressure 93/62 L Pulse Oximetry 95 96 04/03/18 13:00 04/03/18 13:59 04/03/18 14:00 Temperature 98.2 F 98.8 F 98.8 F Pulse Rate 72 108 H 107 H Respiratory Rate 14 46 H 16 Blood Pressure 95/61 L 99/67 L Pulse Oximetry 97 94 L 94 L 04/03/18 14:03 04/03/18 14:14 04/03/18 15:00 Temperature 98.8 F 99.0 F Pulse Rate 110 H 87 77 Respiratory Rate 12 14 Blood Pressure 119/58 L Pulse Oximetry 95 95 04/03/18 15:07 04/03/18 15:11 04/03/18 15:15 Temperature 99.0 F 99.0 F Pulse Rate 75 80 Respiratory Rate 14 18 14 Blood Pressure 72/46 L 81/53 L Pulse Oximetry 96 96 96 04/03/18 15:20 04/03/18 15:21 04/03/18 15:39 Temperature 99.0 F 99.0 F Pulse Rate 79 74 72 Respiratory Rate 14 14 14 Blood Pressure 116/65 146/77 H Pulse Oximetry 97 97 04/03/18 15:58 04/03/18 16:00 04/03/18 16:08 Temperature 99.0 F 99.0 F 99.0 F Pulse Rate 87 89 87 Respiratory Rate 14 14 14 Blood Pressure 139/74 140/81 Pulse Oximetry 97 97 97 04/03/18 16:18 04/03/18 16:28 04/03/18 16:38 Temperature 99.0 F 99.0 F 99.0 F Pulse Rate 87 101 H 112 H Respiratory Rate 14 19 25 H Blood Pressure 129/74 139/75 164/97 H Pulse Oximetry 96 97 95 04/03/18 16:48 04/03/18 16:53 04/03/18 16:58 Temperature 98.8 F 98.8 F 98.8 F Pulse Rate 105 H 138 H 135 H Respiratory Rate 25 H 36 H 26 H Blood Pressure 168/98 H 178/109 H 143/69 H Pulse Oximetry 94 L 96 96 04/03/18 17:00 04/03/18 17:08 04/03/18 17:18 Temperature 98.8 F 98.8 F 99.0 F Pulse Rate 110 H 103 H 107 H Respiratory Rate 21 22 47 H Blood Pressure 152/66 H 180/92 H Pulse Oximetry 95 96 66 L 04/03/18 17:25 04/03/18 17:28 04/03/18 17:38 Temperature 98.8 F 98.6 F Pulse Rate 112 H 113 H Respiratory Rate 28 H 23 Blood Pressure 160/75 H 142/68 H Pulse Oximetry 93 L 92 L 94 L 04/03/18 17:40 04/03/18 17:42 04/03/18 17:44 Temperature 98.4 F 98.4 F 98.4 F Pulse Rate 112 H 109 H 103 H Respiratory Rate 33 H 13 30 H Blood Pressure 141/67 H 96/51 L 80/47 L Pulse Oximetry 93 L 96 97 04/03/18 17:45 04/03/18 17:46 04/03/18 17:48 Temperature 98.6 F 98.6 F Pulse Rate 102 H 103 H Respiratory Rate 16 16 14 Blood Pressure 82/51 L 81/52 L Pulse Oximetry 97 96 96 04/03/18 17:50 04/03/18 17:52 04/03/18 17:54 Temperature 98.6 F 98.6 F 98.6 F Pulse Rate 103 H 103 H 102 H Respiratory Rate 15 16 16 Blood Pressure 80/51 L 82/50 L 86/52 L Pulse Oximetry 96 95 96 04/03/18 17:56 04/03/18 17:58 04/03/18 18:00 Temperature 98.6 F 98.6 F 98.4 F Pulse Rate 101 H 100 H 100 H Respiratory Rate 16 16 16 Blood Pressure 90/54 L 94/54 L 96/56 L Pulse Oximetry 96 96 97 04/03/18 18:02 04/03/18 18:04 04/03/18 18:05 Temperature 98.4 F 98.4 F Pulse Rate 99 H 98 H 97 H Respiratory Rate 16 16 Blood Pressure 97/56 L 93/55 L Pulse Oximetry 97 97 04/03/18 18:06 04/03/18 18:15 04/03/18 18:30 Temperature 98.4 F 98.2 F 98.2 F Pulse Rate 98 H 97 H 92 H Respiratory Rate 16 16 16 Blood Pressure 93/55 L 98/59 L 113/70 Pulse Oximetry 96 97 97 04/03/18 18:45 04/03/18 19:00 04/03/18 19:15 Temperature 98.1 F 98.2 F 98.2 F Pulse Rate 89 84 79 Respiratory Rate 16 15 16 Blood Pressure 128/79 143/88 H 144/89 H Pulse Oximetry 98 99 98 04/03/18 19:30 04/03/18 19:45 04/03/18 20:00 Temperature 98.2 F 98.2 F 98.4 F Pulse Rate 74 69 76 Respiratory Rate 16 16 16 Blood Pressure 160/95 H 165/95 H 134/80 Pulse Oximetry 99 100 98 04/03/18 20:15 04/03/18 20:18 04/03/18 20:22 Temperature 98.4 F Pulse Rate 79 78 Respiratory Rate 16 16 16 Blood Pressure 149/90 H Pulse Oximetry 99 99 01/21/19 20:30 04/03/18 20:45 04/03/18 21:00 Temperature 98.4 F 98.2 F 98.1 F Pulse Rate 86 91 H 85 Respiratory Rate 16 14 19 Blood Pressure 149/95 H 152/89 H 154/89 H Pulse Oximetry 98 99 99 04/03/18 21:15 04/03/18 21:30 04/03/18 21:45 Temperature 98.1 F 98.2 F 98.2 F Pulse Rate 82 76 81 Respiratory Rate 17 16 25 H Blood Pressure 154/92 H 142/81 H 154/88 H Pulse Oximetry 99 99 98 04/03/18 22:00 04/03/18 22:15 04/03/18 22:25 Temperature 98.2 F 98.2 F Pulse Rate 75 75 Respiratory Rate 16 16 16 Blood Pressure 138/81 150/89 H Pulse Oximetry 98 98 98 04/03/18 22:30 04/03/18 22:45 04/03/18 23:00 Temperature 98.2 F 98.2 F 98.2 F Pulse Rate 74 72 70 Respiratory Rate 17 16 16 Blood Pressure 151/83 H 155/83 H Pulse Oximetry 97 97 97 04/03/18 23:02 04/04/18 00:00 04/04/18 00:58 Temperature 98.2 F 98.2 F 98.4 F Pulse Rate 76 74 87 Respiratory Rate 16 16 19 Blood Pressure 142/80 H 162/83 H 176/94 H Pulse Oximetry 96 96 97 04/04/18 01:00 04/04/18 01:33 04/04/18 01:58 Temperature 98.4 F 98.1 F Pulse Rate 87 77 Respiratory Rate 22 16 16 Blood Pressure 171/84 H Pulse Oximetry 96 97 97 04/04/18 02:00 04/04/18 02:58 04/04/18 03:00 Temperature 98.1 F 97.9 F 97.9 F Pulse Rate 76 70 70 Respiratory Rate 16 16 16 Blood Pressure 193/93 H Pulse Oximetry 97 96 96 04/04/18 03:15 04/04/18 03:58 04/04/18 04:00 Temperature 97.9 F 98.1 F 98.1 F Pulse Rate 70 55 L 56 L Respiratory Rate 16 16 16 Blood Pressure 165/99 H 162/86 H Pulse Oximetry 97 97 96 01/22/19 04:01 04/04/18 04:18 04/04/18 04:58 Temperature 98.2 F Pulse Rate 63 54 L Respiratory Rate 16 16 16 Blood Pressure 176/84 H Pulse Oximetry 97 96 04/04/18 05:00 04/04/18 05:20 04/04/18 05:24 Temperature 98.2 F 98.4 F 98.4 F Pulse Rate 57 L 53 L 77 Respiratory Rate 16 16 22 Blood Pressure 182/91 H Pulse Oximetry 95 96 96 04/04/18 05:29 04/04/18 05:47 04/04/18 05:51 Temperature 98.4 F 98.4 F 98.4 F Pulse Rate 68 72 78 Respiratory Rate 16 16 16 Blood Pressure 190/94 H Pulse Oximetry 96 95 96 04/04/18 05:58 04/04/18 06:00 04/04/18 06:07 Temperature 98.4 F 98.4 F 98.6 F Pulse Rate 71 83 69 Respiratory Rate 16 16 16 Blood Pressure 197/103 H 166/102 H Pulse Oximetry 96 96 96 04/04/18 06:08 04/04/18 07:38 Temperature 98.6 F Pulse Rate 81 Respiratory Rate 16 16 Blood Pressure 199/95 H Pulse Oximetry 96 96 Intake & Output 04/03/18 04/04/18 04/04/18 18:59 06:59 18:59 Intake Total 1267.5 / 1267.5 650 / 650 Output Total 4200 / 4200 3500 / 3500 Balance -2932.5 / -2932.5 -2850 / -2850 Weight 84.9 kg Intake: IV 1267.5 / 1267.5 650 / 650 Precedex Inj 200 MCG In NS Inj 50 / 50 200 / 200 48 ML @ 0.2 MCG/KG/HR 4.31 mls/ hr IV.CONT TITRATE PRN Rx#: [id number] Versed Inj 100 mg In 100 ml @ 2 100 / 100 MG/HR 2 mls/hr IV.CONT TITRATE PRN Rx#:[id number] Flexbumin 25% Inj 100 ML @ 60 100 / 100 100 / 100 mls/hr IV.SIG Q8H JE Rx#: [id number] Zosyn 4.5 GM Premix 4.5 gm In 200 / 200 100 ml @ 200 mls/hr IV.SIG Q6H JE Rx#:[id number] KCl 40 mEq Premix Inj 40 meq In 200 / 200 100 / 100 100 ml @ 25 mls/hr IV.SIG Q2H PRN Rx#:[id number] Vancomycin Inj 1,750 MG In NS 517.5 / 517.5 Inj 500 ML @ 250 mls/hr IV.SIG Q12H JE Rx#:[id number] Rocephin Inj 2,000 MG In NS Inj 100 / 100 100 ML @ 200 mls/hr IV.SIG Q24H [facility] Rx#:[id number] fentaNYL 10 mcg/mL Premix Drip 250 / 250 2,500 mcg In 250 ml @ 50 MCG/HR 5 mls/hr IV.SIG TITRATE PRN Rx #:[id number] Output: Urine Amount (Catheter) 4200 / 4200 3300 / 3300 Indwelling Urethral Catheter 4200 / 4200 3300 / 3300 Gastric Drainage 200 / 200 Orogastric Tube 200 / 200 Narrative: awake alert follow commands well all 4 ext still some tremors arm l>r and some small left arm jerks - Urinary Catheter Management Indwelling Urethral Catheter Cath placed during this visit: yes Reason for continuing: Hourly intake/output Insertion date: 03/31/18 Insertion time: 18:00 Objective Laboratory Results - last 24 hr 03/31/18 04/03/18 04/03/18 19:09 04:10 09:00 WBC RBC Hgb Hct MCV MCH MCHC RDW Plt Count MPV Neut % (Auto) Lymph % (Auto) Randall % (Auto) Eos % (Auto) Baso % (Auto) Neut # (Auto) Lymph # (Auto) Randall # (Auto) Eos # (Auto) Baso # (Auto) WBC Differential Differential Comment ESR 46 H Sodium Potassium Chloride Carbon Dioxide Anion Gap BUN Creatinine Estimated GFR Random Glucose Calcium Total Bilirubin AST ALT Alkaline Phosphatase Ammonia C-Reactive Protein Total Protein Albumin Vancomycin Trough 21.2 H Rheumatoid Factor Scrn Rheumatoid Factor Titer RPR Nonreactive 04/03/18 04/03/18 04/03/18 09:00 09:00 22:25 WBC RBC Hgb Hct MCV MCH MCHC RDW Plt Count MPV Neut % (Auto) Lymph % (Auto) Randall % (Auto) Eos % (Auto) Baso % (Auto) Neut # (Auto) Lymph # (Auto) Randall # (Auto) Eos # (Auto) Baso # (Auto) WBC Differential Differential Comment ESR Sodium 143 Potassium 3.0 L 3.2 L Chloride 108 H Carbon Dioxide 24.5 Anion Gap 11 BUN Creatinine Estimated GFR Random Glucose Calcium Total Bilirubin AST ALT Alkaline Phosphatase Ammonia C-Reactive Protein 23.00 H Total Protein Albumin Vancomycin Trough Rheumatoid Factor Scrn Negative Rheumatoid Factor Titer Not Reportable RPR 04/04/18 04/04/18 04/04/18 05:20 05:20 05:40 WBC 9.6 RBC 3.69 L Hgb 11.4 L Hct 34.3 L MCV 92.9 MCH 30.8 MCHC 33.1 RDW 14.7 Plt Count 250 MPV 7.4 Neut % (Auto) 85.5 H Lymph % (Auto) 5.9 L Randall % (Auto) 7.4 Eos % (Auto) 0.6 Baso % (Auto) 0.6 Neut # (Auto) 8.2 H Lymph # (Auto) 0.6 L Randall # (Auto) 0.7 Eos # (Auto) 0.1 Baso # (Auto) 0.1 WBC Differential . Differential Comment Auto diff final ESR Sodium 145 Potassium 3.9 Chloride 111 H Carbon Dioxide 27.1 Anion Gap 7 BUN 13 Creatinine 0.97 Estimated GFR 77 L Random Glucose 100 Calcium 8.7 Total Bilirubin 0.8 AST 19 ALT 34 Alkaline Phosphatase 64 Ammonia 30 C-Reactive Protein Total Protein 6.6 D Albumin 2.9 L D Vancomycin Trough Rheumatoid Factor Scrn Rheumatoid Factor Titer RPR Microbiology 04/01/18 06:00 Gram Stain - Final Sputum - Endotracheal Sputum Culture - Final Klebsiella oxytoca 03/31/18 19:04 Aerobic Blood Culture - Preliminary Blood - Peripheral No growth in 3 days Anaerobic Blood Culture - Preliminary No growth in 3 days 03/31/18 19:09 Aerobic Blood Culture - Preliminary Blood - Peripheral No growth in 3 days Anaerobic Blood Culture - Preliminary No growth in 3 days 04/01/18 18:15 Gram Stain - Final Lumbar Puncture CSF Culture - Preliminary No growth in 48 hours Review/Management - Review/Management Plan: Encephalopathy Likely secondary to respiratory failure, hypoxia, metabolic etiology Respiratory failure - Lactic acidosis - Hyperammonemia - Leukocytosis - Neuro checks Q1h - MRI brain and head CT scan was unremarkable for an acute intracranial abnormality - Will reassess after patient he is off sedation. - CSF analysis is unremarkable, pending culture and HSV PCR results - EEG with evidence of encephalopathy, no epileptiform discharges or electrographic seizure activity - I met with family members and discussed the current neurologic status - There is no indication to start AEDs. -DVT prophylaxis - GI prophylaxis - Neurology will follow up. - Dr. Farias will follow up on Tuesday04/03/2018. - Please call for questions 04/03/18 met enceph mri LP eeg neg labs neg my hope is off sedatives he should do fine no hx dementia nor pd acc to daughters labs ordered few more 04/04/18 much better ok to dc sedatives neurowise recheck abg still some jerking can recheck eeg when off vent
--- NOTE | 2018-04-04 08:33 | XR ---
EXAM DATE: 04/04/2018 8:28 AM EST AGE/SEX: 67 years / Male INDICATIONS: Shortness of breath. CLINICAL DATA: This is the patient's subsequent encounter. Patient reports that signs and symptoms h ave been present for 4 - 6 days and indicates a pain score of Nonresponsive. MEDICAL/SURGICAL HISTORY: . Thyroid disease. . Microdiscectomy. Left inguinal hernia repair. [place] [facility] [place]. . FINDINGS: A single AP view of the chest demonstrates bibasilar patchy densities. Heart normal in size. Endotrac heal tube, nasogastric tube and left subclavian central line stable position The cardiomediastinal co ntours are unremarkable. Osseous structures are intact. CONCLUSION: Stable chest. Persistent bibasilar patchy opacities. Electronically signed by: Dashawn Carrasquillo MD Board Certified Radiologist 04/04/2018 8:31 AM EST
[2018-04-04] MEDS: Senna/Docusate Sodium 8.6/50 MG Tablet PO SCH ×2 (08:35→20:36)
[2018-04-04] MEDS: Lisinopril 5 MG Tablet PO SCH (08:35)
[2018-04-04] MEDS: Chlorhexidine 0.12% Oral Kit 15 ML UDC OROPHARYNG SCH ×2 (08:35→20:36)
[2018-04-04] MEDS: amLODIPine 10 MG Tablet PO SCH (08:35)
[2018-04-04] MEDS: Famotidine PF Inj 20 MG/2 ML Vial IV.PUSH SCH ×2 (08:35→20:36)
[2018-04-04] MEDS: Albumin Human 25% Inj 100 ML IV.SIG SCH ×2 (08:36→16:50)
[2018-04-04] MEDS: Metoprolol Tartrate 25 MG Tablet PO SCH ×2 (08:40→20:36)
[2018-04-04 08:41] LABS: ABG Base Excess 2.8 mmol/L (-2-2); ABG PCO2 34 mmHg (38-42); ABG PO2 98 mmHg (61-120)
--- NOTE | 2018-04-04 11:01 | P.DIET ---
Nutritional Evaluation Type of nutrition evaluation: initial Nutrition consult regarding: Tube Feeding Objective - Diagnosis Generalized Weakness, Failure to Thrive - Objective % IBW: 102 (IBW = 184#) Body Weight Used for Calculations: Actual (84.9 kg) Energy Needs - Lower Range (kCal/kg): 25 Energy Needs - Upper Range (kCal/kg): 30 Lower Limit kCal/kg (kCals): 2,123 Upper Limit kCal/kg (kCals): 2,547 Lower Limit Protein Factor (Grams per Kg): 1.2 Upper Limit Protein Factor (Grams per Kg): 1.6 Lower Protein Needs (Protein): 102 Upper Protein Needs (Protein): 136 Dietitian Reviewed in Medical Record: Curent medications, Intake & Output, Labs , Medical history, Tube feeding Diet Order: NPO Objective Comments: Meds include Synthroid 02/13 microdiscectomy C5-6 04/03 re-intubated 45 mins after extubation Assessment Assessment: Pt is at high nutrition risk 2' to his need for TFing. Current order is for Jevity 1.5 @ 60 mls/hr goal. Recommend increase goal rate to 65 mls/hr x 22 hrs (d/t Synthroid) to provide 2145 kcals, 91 gms protein and 1087 mls of free water. Also recommend the addition of Beneprotein 1 pack tid to provide an additional 18 gms protein and 75 kcals. Pleae note: TF must be held one hour before and after Synthroid is given. Recommendations: Jevity 1.5 @ 65 mls/hr x 22 hours Beneprotein 1 pack tid Dietitian to Monitor: Lab values, Intake & Output, Tube feeding tolerance, Weight change, Medical course
[2018-04-04] MEDS: Propofol 1000 mg/100 ml Inj 1,000 MG/100 ML BOTTLE IV.CONT PRN ×2 (11:46→19:34)
--- NOTE | 2018-04-04 13:01 | P.PNID ---
Subjective Remarks: remians on vent , apparently difficulty weaning 2/2 very high BP + low grade fever Antibiotics: CFTX 2 Allergies/Adverse Reactions: Allergies Sulfa (Sulfonamide Antibiotics) Allergy (Severe, Verified 02/15/18 05:02) Nausea also flu like symptoms Objective Vital Signs 04/03/18 13:00 04/03/18 13:59 04/03/18 14:00 Temperature 98.2 F 98.8 F 98.8 F Pulse Rate 72 108 H 107 H Respiratory Rate 14 46 H 16 Blood Pressure 95/61 L 99/67 L Pulse Oximetry 97 94 L 94 L 04/03/18 14:03 04/03/18 14:14 04/03/18 15:00 Temperature 98.8 F 99.0 F Pulse Rate 110 H 87 77 Respiratory Rate 12 14 Blood Pressure 119/58 L Pulse Oximetry 95 95 04/03/18 15:07 04/03/18 15:11 04/03/18 15:15 Temperature 99.0 F 99.0 F Pulse Rate 75 80 Respiratory Rate 14 18 14 Blood Pressure 72/46 L 81/53 L Pulse Oximetry 96 96 96 04/03/18 15:20 04/03/18 15:21 04/03/18 15:39 Temperature 99.0 F 99.0 F Pulse Rate 79 74 72 Respiratory Rate 14 14 14 Blood Pressure 116/65 146/77 H Pulse Oximetry 97 97 04/03/18 15:58 04/03/18 16:00 04/03/18 16:08 Temperature 99.0 F 99.0 F 99.0 F Pulse Rate 87 89 87 Respiratory Rate 14 14 14 Blood Pressure 139/74 140/81 Pulse Oximetry 97 97 97 04/03/18 16:18 04/03/18 16:28 04/03/18 16:38 Temperature 99.0 F 99.0 F 99.0 F Pulse Rate 87 101 H 112 H Respiratory Rate 14 19 25 H Blood Pressure 129/74 139/75 164/97 H Pulse Oximetry 96 97 95 04/03/18 16:48 04/03/18 16:53 04/03/18 16:58 Temperature 98.8 F 98.8 F 98.8 F Pulse Rate 105 H 138 H 135 H Respiratory Rate 25 H 36 H 26 H Blood Pressure 168/98 H 178/109 H 143/69 H Pulse Oximetry 94 L 96 96 04/03/18 17:00 04/03/18 17:08 04/03/18 17:18 Temperature 98.8 F 98.8 F 99.0 F Pulse Rate 110 H 103 H 107 H Respiratory Rate 21 22 47 H Blood Pressure 152/66 H 180/92 H Pulse Oximetry 95 96 66 L 04/03/18 17:25 04/03/18 17:28 04/03/18 17:38 Temperature 98.8 F 98.6 F Pulse Rate 112 H 113 H Respiratory Rate 28 H 23 Blood Pressure 160/75 H 142/68 H Pulse Oximetry 93 L 92 L 94 L 04/03/18 17:40 04/03/18 17:42 04/03/18 17:44 Temperature 98.4 F 98.4 F 98.4 F Pulse Rate 112 H 109 H 103 H Respiratory Rate 33 H 13 30 H Blood Pressure 141/67 H 96/51 L 80/47 L Pulse Oximetry 93 L 96 97 04/03/18 17:45 04/03/18 17:46 04/03/18 17:48 Temperature 98.6 F 98.6 F Pulse Rate 102 H 103 H Respiratory Rate 16 16 14 Blood Pressure 82/51 L 81/52 L Pulse Oximetry 97 96 96 04/03/18 17:50 04/03/18 17:52 04/03/18 17:54 Temperature 98.6 F 98.6 F 98.6 F Pulse Rate 103 H 103 H 102 H Respiratory Rate 15 16 16 Blood Pressure 80/51 L 82/50 L 86/52 L Pulse Oximetry 96 95 96 04/03/18 17:56 04/03/18 17:58 04/03/18 18:00 Temperature 98.6 F 98.6 F 98.4 F Pulse Rate 101 H 100 H 100 H Respiratory Rate 16 16 16 Blood Pressure 90/54 L 94/54 L 96/56 L Pulse Oximetry 96 96 97 04/03/18 18:02 04/03/18 18:04 04/03/18 18:05 Temperature 98.4 F 98.4 F Pulse Rate 99 H 98 H 97 H Respiratory Rate 16 16 Blood Pressure 97/56 L 93/55 L Pulse Oximetry 97 97 04/03/18 18:06 04/03/18 18:15 04/03/18 18:30 Temperature 98.4 F 98.2 F 98.2 F Pulse Rate 98 H 97 H 92 H Respiratory Rate 16 16 16 Blood Pressure 93/55 L 98/59 L 113/70 Pulse Oximetry 96 97 97 04/03/18 18:45 04/03/18 19:00 04/03/18 19:15 Temperature 98.1 F 98.2 F 98.2 F Pulse Rate 89 84 79 Respiratory Rate 16 15 16 Blood Pressure 128/79 143/88 H 144/89 H Pulse Oximetry 98 99 98 04/03/18 19:30 04/03/18 19:45 04/03/18 20:00 Temperature 98.2 F 98.2 F 98.4 F Pulse Rate 74 69 76 Respiratory Rate 16 16 16 Blood Pressure 160/95 H 165/95 H 134/80 Pulse Oximetry 99 100 98 04/03/18 20:15 04/03/18 20:18 04/03/18 20:22 Temperature 98.4 F Pulse Rate 79 78 Respiratory Rate 16 16 16 Blood Pressure 149/90 H Pulse Oximetry 99 99 04/03/18 20:30 04/03/18 20:45 04/03/18 21:00 Temperature 98.4 F 98.2 F 98.1 F Pulse Rate 86 91 H 85 Respiratory Rate 16 14 19 Blood Pressure 149/95 H 152/89 H 154/89 H Pulse Oximetry 98 99 99 04/03/18 21:15 04/03/18 21:30 04/03/18 21:45 Temperature 98.1 F 98.2 F 98.2 F Pulse Rate 82 76 81 Respiratory Rate 17 16 25 H Blood Pressure 154/92 H 142/81 H 154/88 H Pulse Oximetry 99 99 98 04/03/18 22:00 04/03/18 22:15 04/03/18 22:25 Temperature 98.2 F 98.2 F Pulse Rate 75 75 Respiratory Rate 16 16 16 Blood Pressure 138/81 150/89 H Pulse Oximetry 98 98 98 04/03/18 22:30 04/03/18 22:45 04/03/18 23:00 Temperature 98.2 F 98.2 F 98.2 F Pulse Rate 74 72 70 Respiratory Rate 17 16 16 Blood Pressure 151/83 H 155/83 H Pulse Oximetry 97 97 97 04/03/18 23:02 04/04/18 00:00 04/04/18 00:58 Temperature 98.2 F 98.2 F 98.4 F Pulse Rate 76 74 87 Respiratory Rate 16 16 19 Blood Pressure 142/80 H 162/83 H 176/94 H Pulse Oximetry 96 96 97 04/04/18 01:00 04/04/18 01:33 04/04/18 01:58 Temperature 98.4 F 98.1 F Pulse Rate 87 77 Respiratory Rate 22 16 16 Blood Pressure 171/84 H Pulse Oximetry 96 97 97 04/04/18 02:00 04/04/18 02:58 04/04/18 03:00 Temperature 98.1 F 97.9 F 97.9 F Pulse Rate 76 70 70 Respiratory Rate 16 16 16 Blood Pressure 193/93 H Pulse Oximetry 97 96 96 04/04/18 03:15 04/04/18 03:58 04/04/18 04:00 Temperature 97.9 F 98.1 F 98.1 F Pulse Rate 70 55 L 56 L Respiratory Rate 16 16 16 Blood Pressure 165/99 H 162/86 H Pulse Oximetry 97 97 96 04/04/18 04:01 04/04/18 04:18 04/04/18 04:58 Temperature 98.2 F Pulse Rate 63 54 L Respiratory Rate 16 16 16 Blood Pressure 176/84 H Pulse Oximetry 97 96 04/04/18 05:00 04/04/18 05:20 04/04/18 05:24 Temperature 98.2 F 98.4 F 98.4 F Pulse Rate 57 L 53 L 77 Respiratory Rate 16 16 22 Blood Pressure 182/91 H Pulse Oximetry 95 96 96 04/04/18 05:29 04/04/18 05:47 04/04/18 05:51 Temperature 98.4 F 98.4 F 98.4 F Pulse Rate 68 72 78 Respiratory Rate 16 16 16 Blood Pressure 190/94 H Pulse Oximetry 96 95 96 04/04/18 05:58 04/04/18 06:00 04/04/18 06:07 Temperature 98.4 F 98.4 F 98.6 F Pulse Rate 71 83 69 Respiratory Rate 16 16 16 Blood Pressure 197/103 H 166/102 H Pulse Oximetry 96 96 96 04/04/18 06:08 04/04/18 07:00 04/04/18 07:38 Temperature 98.6 F 98.8 F Pulse Rate 81 74 Respiratory Rate 16 26 H 16 Blood Pressure 199/95 H Pulse Oximetry 96 96 96 04/04/18 07:58 04/04/18 08:00 04/04/18 08:58 Temperature 99.1 F 99.1 F 99.3 F Pulse Rate 83 81 72 Respiratory Rate 16 16 16 Blood Pressure 159/90 H 181/91 H Pulse Oximetry 94 L 96 97 04/04/18 09:00 04/04/18 09:03 04/04/18 09:10 Temperature Pulse Rate 58 L 61 55 L Respiratory Rate 16 16 16 Blood Pressure 197/96 H 170/96 H Pulse Oximetry 97 97 97 04/04/18 09:53 04/04/18 09:57 04/04/18 09:59 Temperature Pulse Rate 76 70 59 L Respiratory Rate 16 16 16 Blood Pressure 191/94 H Pulse Oximetry 98 96 04/04/18 10:00 04/04/18 10:07 04/04/18 10:32 Temperature Pulse Rate 49 L 58 L 75 Respiratory Rate 16 16 16 Blood Pressure 190/103 H 175/95 H Pulse Oximetry 98 98 97 04/04/18 11:08 Temperature Pulse Rate Respiratory Rate 16 Blood Pressure Pulse Oximetry 96 Intake & Output 04/03/18 04/04/18 04/04/18 18:59 06:59 18:59 Intake Total 1267.5 / 1267.5 650 / 650 250 / 250 Output Total 4200 / 4200 3500 / 3500 Balance -2932.5 / -2932.5 -2850 / -2850 250 / 250 Weight 84.9 kg Intake: IV 1267.5 / 1267.5 650 / 650 250 / 250 Precedex Inj 200 MCG In NS Inj 50 / 50 200 / 200 50 / 50 48 ML @ 0.2 MCG/KG/HR 4.31 mls/ hr IV.CONT TITRATE PRN Rx#: [id number] Versed Inj 100 mg In 100 ml @ 2 100 / 100 MG/HR 2 mls/hr IV.CONT TITRATE PRN Rx#:[id number] Flexbumin 25% Inj 100 ML @ 60 100 / 100 100 / 100 100 / 100 mls/hr IV.SIG Q8H [facility] Rx#: [id number] Zosyn 4.5 GM Premix 4.5 gm In 200 / 200 100 ml @ 200 mls/hr IV.SIG Q6H [facility] Rx#:[id number] KCl 40 mEq Premix Inj 40 meq In 200 / 200 100 / 100 100 / 100 100 ml @ 25 mls/hr IV.SIG Q2H PRN Rx#:[id number] Vancomycin Inj 1,750 MG In NS 517.5 / 517.5 Inj 500 ML @ 250 mls/hr IV.SIG Q12H [facility] Rx#:[id number] Rocephin Inj 2,000 MG In NS Inj 100 / 100 100 ML @ 200 mls/hr IV.SIG Q24H [facility] Rx#:[id number] fentaNYL 10 mcg/mL Premix Drip 250 / 250 2,500 mcg In 250 ml @ 50 MCG/HR 5 mls/hr IV.SIG TITRATE PRN Rx #:[id number] Output: Urine Amount (Catheter) 4200 / 4200 3300 / 3300 Indwelling Urethral Catheter 4200 / 4200 3300 / 3300 Gastric Drainage 200 / 200 Orogastric Tube 200 / 200 03/31/18 19:04 Blood - Peripheral Aerobic Blood Culture - Preliminary No growth in 4 days 03/31/18 19:04 Blood - Peripheral Anaerobic Blood Culture - Preliminary No growth in 4 days 03/31/18 19:09 Blood - Peripheral Aerobic Blood Culture - Preliminary No growth in 4 days 03/31/18 19:09 Blood - Peripheral Anaerobic Blood Culture - Preliminary No growth in 4 days 04/01/18 18:15 Lumbar Puncture Gram Stain - Final 04/01/18 18:15 Lumbar Puncture CSF Culture - Final No growth in 72 hours 04/01/18 06:00 Sputum - Endotracheal Gram Stain - Final 04/01/18 06:00 Sputum - Endotracheal Sputum Culture - Final Klebsiella oxytoca Lab - Hematology Results 04/03/18 04/03/18 04/04/18 04:10 04:10 05:20 WBC 12.6 H 9.6 RBC 3.50 L 3.69 L Hgb 10.9 L 11.4 L Hct 32.3 L 34.3 L MCV 92.3 92.9 MCH 31.2 30.8 MCHC 33.8 33.1 RDW 14.6 14.7 Plt Count 234 250 MPV 7.0 7.4 Neut % (Auto) 87.9 H 85.5 H Lymph % (Auto) 4.4 L 5.9 L Coke % (Auto) 7.0 7.4 Eos % (Auto) 0.6 0.6 Baso % (Auto) 0.1 0.6 Neut # (Auto) 11.1 H 8.2 H Lymph # (Auto) 0.6 L 0.6 L Coke # (Auto) 0.9 0.7 Eos # (Auto) 0.1 0.1 Baso # (Auto) 0.0 0.1 WBC Differential . . Differential Comment Auto diff final Auto diff final ESR 46 H Lab - Chemistry Results 04/03/18 04/03/18 04/03/18 04:10 04:10 09:00 Sodium 143 Potassium 3.1 L Chloride 109 H Carbon Dioxide 26.1 Anion Gap 8 BUN 11 Creatinine 0.70 Estimated GFR Greater than 89 Random Glucose 73 L Calcium 8.1 L Phosphorus Magnesium Total Bilirubin 0.7 AST 21 ALT 34 Alkaline Phosphatase 49 Ammonia 19 C-Reactive Protein 23.00 H Total Protein 5.5 L Albumin 2.2 L 04/03/18 04/03/18 04/04/18 09:00 22:25 05:20 Sodium 143 145 Potassium 3.0 L 3.2 L 3.9 Chloride 108 H 111 H Carbon Dioxide 24.5 27.1 Anion Gap 11 7 BUN 13 Creatinine 0.97 Estimated GFR 77 L Random Glucose 100 Calcium 8.7 Phosphorus Magnesium Total Bilirubin 0.8 AST 19 ALT 34 Alkaline Phosphatase 64 Ammonia C-Reactive Protein Total Protein 6.6 D Albumin 2.9 L D 04/04/18 04/04/18 04/04/18 05:40 08:24 08:24 Sodium Potassium Chloride Carbon Dioxide Anion Gap BUN Creatinine Estimated GFR Random Glucose Calcium Phosphorus 2.0 L Magnesium 2.2 Total Bilirubin AST ALT Alkaline Phosphatase Ammonia 30 C-Reactive Protein Total Protein Albumin Imaging: ITS Impressions Head MRI 03/31/18 00:00 CONCLUSION: Negative exam Head CT 03/31/18 12:16 CONCLUSION: 1. Negative CT Head non contrast. . Chest CTA 03/31/18 14:39 CONCLUSION: 1. Bibasilar atelectatic changes, left greater than right. No confluent infiltrate. 2. No pulmonary embolus. 3. Atherosclerotic calcification of the coronary arteries. Cervical Spine MRI 03/31/18 16:17 CONCLUSION: 1. Status post fusion at the C5-C6 level. There is susceptibility artifact from the hardware. 2. A significant area of stenosis in the thecal sac is not seen. 3. Facet hypertrophy seen throughout with scattered areas of neural foraminal narrowing as described above. 4. The patient is intubated with fluid in the hypopharynx, laryngeal pharynx, and upper trachea around the ET tube and above the tracheal ET tube cuff. 5. The does appear to be some mild soft tissue swelling in the prevertebral region best seen on the sagittal images. Chest X-Ray 04/04/18 00:00 CONCLUSION: Stable chest. Persistent bibasilar patchy opacities. Physical Exam: GENERAL: NAD sedated , uint'd SKIN: Warm and dry. HEAD: Atraumatic. Normocephalic. EYES: Pupils equal and round. No scleral icterus. No injection or drainage. ENT: No nasal bleeding or discharge. Mucous membranes pink and moist. NECK: Trachea midline. No JVD. CARDIOVASCULAR: Regular rate and rhythm. RESPIRATORY: No accessory muscle use. Clear to auscultation. Breath sounds equal bilaterally. GASTROINTESTINAL: Abdomen soft, non-tender, nondistended. Hepatic and splenic margins not palpable. MUSCULOSKELETAL: Extremities without clubbing, cyanosis, or edema. No obvious deformities. NEUROLOGICAL: sedated heavily PSYCHIATRIC: unable to assess Assessment and Plan - Plan C spine fusion Hypercapnia difficulty breathing developped after surgery Kleb oxytoca PNA Acute VDRF, improving fever, low grade No e/o SAL[employer] infx ?aspiration cont CFTX 2 gm tenatevely 7-8 days case was dw pt 's , dgtr @ b/s breezy RN
[2018-04-04] MEDS: Enoxaparin Inj 30 MG/0.3 ML Syringe SQ SCH (14:12)
--- NOTE | 2018-04-04 18:13 | P.PNNS ---
Subjective Interval history: 67-year-old gentleman who is now 7 weeks status post anterior C5-6 microdiscectomy with fusion for intractable neck pain and radiculopathy. His neck pain and radiculopathy resolved following surgery. He did have an episode of vomiting and presented to the emergency room postoperatively and was felt to have an allergic reaction to hydrocodone. Following discontinue the hydrocodone no further nausea or vomiting was noted. He did complain of mild hoarseness postoperatively which on follow-up visit 2 weeks ago in the office had essentially resolved. He was undergoing cardiac and pulmonary workup for complaints of shortness of breath by his primary care physician. He presented to the emergency room 4 days ago confusion and worsening pulmonary symptoms and was felt to be severely hypercapnic requiring intubation. He had bibasilar infiltrates and pneumonia as well as septic shock presentation and with antibiotics his condition has improved and he is hemodynamically stable. Extubation attempt yesterday failed after 45 minutes requiring reintubation. MRI scan of the cervical spine reveals well decompressed spinal canal with no prevertebral or any soft tissue swelling noted an MRI of the brain is also unremarkable. He is also being followed by the art manager infectious disease and neurology. Physical Exam Vital signs: Vital Signs 04/03/18 17:52 04/03/18 17:54 04/03/18 17:56 Temperature 98.6 F 98.6 F 98.6 F Pulse Rate 103 H 102 H 101 H Respiratory Rate 16 16 16 Blood Pressure 82/50 L 86/52 L 90/54 L Pulse Oximetry 95 96 96 04/03/18 17:58 04/03/18 18:00 04/03/18 18:02 Temperature 98.6 F 98.4 F 98.4 F Pulse Rate 100 H 100 H 99 H Respiratory Rate 16 16 16 Blood Pressure 94/54 L 96/56 L 97/56 L Pulse Oximetry 96 97 97 04/03/18 18:04 04/03/18 18:05 04/03/18 18:06 Temperature 98.4 F 98.4 F Pulse Rate 98 H 97 H 98 H Respiratory Rate 16 16 Blood Pressure 93/55 L 93/55 L Pulse Oximetry 97 96 04/03/18 18:15 04/03/18 18:30 04/03/18 18:45 Temperature 98.2 F 98.2 F 98.1 F Pulse Rate 97 H 92 H 89 Respiratory Rate 16 16 16 Blood Pressure 98/59 L 113/70 128/79 Pulse Oximetry 97 97 98 04/03/18 19:00 04/03/18 19:15 04/03/18 19:30 Temperature 98.2 F 98.2 F 98.2 F Pulse Rate 84 79 74 Respiratory Rate 15 16 16 Blood Pressure 143/88 H 144/89 H 160/95 H Pulse Oximetry 99 98 99 04/03/18 19:45 04/03/18 20:00 04/03/18 20:15 Temperature 98.2 F 98.4 F 98.4 F Pulse Rate 69 76 79 Respiratory Rate 16 16 16 Blood Pressure 165/95 H 134/80 149/90 H Pulse Oximetry 100 98 99 04/03/18 20:18 04/03/18 20:22 04/03/18 20:30 Temperature 98.4 F Pulse Rate 78 86 Respiratory Rate 16 16 16 Blood Pressure 149/95 H Pulse Oximetry 99 98 04/03/18 20:45 04/03/18 21:00 04/03/18 21:15 Temperature 98.2 F 98.1 F 98.1 F Pulse Rate 91 H 85 82 Respiratory Rate 14 19 17 Blood Pressure 152/89 H 154/89 H 154/92 H Pulse Oximetry 99 99 99 04/03/18 21:30 04/03/18 21:45 04/03/18 22:00 Temperature 98.2 F 98.2 F 98.2 F Pulse Rate 76 81 75 Respiratory Rate 16 25 H 16 Blood Pressure 142/81 H 154/88 H 138/81 Pulse Oximetry 99 98 98 04/03/18 22:15 04/03/18 22:25 04/03/18 22:30 Temperature 98.2 F 98.2 F Pulse Rate 75 74 Respiratory Rate 16 16 17 Blood Pressure 150/89 H 151/83 H Pulse Oximetry 98 98 97 04/03/18 22:45 04/03/18 23:00 04/03/18 23:02 Temperature 98.2 F 98.2 F 98.2 F Pulse Rate 72 70 76 Respiratory Rate 16 16 16 Blood Pressure 155/83 H 142/80 H Pulse Oximetry 97 97 96 04/04/18 00:00 04/04/18 00:58 04/04/18 01:00 Temperature 98.2 F 98.4 F 98.4 F Pulse Rate 74 87 87 Respiratory Rate 16 19 22 Blood Pressure 162/83 H 176/94 H Pulse Oximetry 96 97 96 04/04/18 01:33 04/04/18 01:58 04/04/18 02:00 Temperature 98.1 F 98.1 F Pulse Rate 77 76 Respiratory Rate 16 16 16 Blood Pressure 171/84 H Pulse Oximetry 97 97 97 04/04/18 02:58 04/04/18 03:00 04/04/18 03:15 Temperature 97.9 F 97.9 F 97.9 F Pulse Rate 70 70 70 Respiratory Rate 16 16 16 Blood Pressure 193/93 H 165/99 H Pulse Oximetry 96 96 97 04/04/18 03:58 04/04/18 04:00 04/04/18 04:01 Temperature 98.1 F 98.1 F Pulse Rate 55 L 56 L 63 Respiratory Rate 16 16 16 Blood Pressure 162/86 H Pulse Oximetry 97 96 04/04/18 04:18 04/04/18 04:58 04/04/18 05:00 Temperature 98.2 F 98.2 F Pulse Rate 54 L 57 L Respiratory Rate 16 16 16 Blood Pressure 176/84 H Pulse Oximetry 97 96 95 04/04/18 05:20 04/04/18 05:24 04/04/18 05:29 Temperature 98.4 F 98.4 F 98.4 F Pulse Rate 53 L 77 68 Respiratory Rate 16 22 16 Blood Pressure 182/91 H Pulse Oximetry 96 96 96 04/04/18 05:47 04/04/18 05:51 04/04/18 05:58 Temperature 98.4 F 98.4 F 98.4 F Pulse Rate 72 78 71 Respiratory Rate 16 16 16 Blood Pressure 190/94 H 197/103 H Pulse Oximetry 95 96 96 04/04/18 06:00 04/04/18 06:07 04/04/18 06:08 Temperature 98.4 F 98.6 F 98.6 F Pulse Rate 83 69 81 Respiratory Rate 16 16 16 Blood Pressure 166/102 H 199/95 H Pulse Oximetry 96 96 96 04/04/18 07:00 04/04/18 07:38 04/04/18 07:58 Temperature 98.8 F 99.1 F Pulse Rate 74 83 Respiratory Rate 26 H 16 16 Blood Pressure 159/90 H Pulse Oximetry 96 96 94 L 04/04/18 08:00 04/04/18 08:58 04/04/18 09:00 Temperature 99.1 F 99.3 F Pulse Rate 81 72 58 L Respiratory Rate 16 16 16 Blood Pressure 181/91 H Pulse Oximetry 96 97 97 04/04/18 09:03 04/04/18 09:10 04/04/18 09:53 Temperature Pulse Rate 61 55 L 76 Respiratory Rate 16 16 16 Blood Pressure 197/96 H 170/96 H Pulse Oximetry 97 97 04/04/18 09:57 04/04/18 09:59 04/04/18 10:00 Temperature Pulse Rate 70 59 L 49 L Respiratory Rate 16 16 16 Blood Pressure 191/94 H Pulse Oximetry 98 96 98 04/04/18 10:07 04/04/18 10:32 04/04/18 11:00 Temperature Pulse Rate 58 L 75 64 Respiratory Rate 16 16 16 Blood Pressure 190/103 H 175/95 H Pulse Oximetry 98 97 96 04/04/18 11:08 04/04/18 11:43 04/04/18 11:59 Temperature Pulse Rate 63 67 Respiratory Rate 16 25 H 21 Blood Pressure 190/89 H 174/81 H Pulse Oximetry 96 96 96 04/04/18 12:00 04/04/18 12:59 04/04/18 13:00 Temperature 98.4 F 98.1 F 98.1 F Pulse Rate 65 50 L 48 L Respiratory Rate 20 16 16 Blood Pressure 154/73 H Pulse Oximetry 96 97 97 04/04/18 13:45 04/04/18 13:59 04/04/18 14:00 Temperature 97.9 F 97.9 F 97.9 F Pulse Rate 72 62 60 Respiratory Rate 16 16 16 Blood Pressure 167/81 H 161/78 H Pulse Oximetry 96 97 97 04/04/18 14:59 04/04/18 15:00 04/04/18 15:19 Temperature 97.5 F L 97.5 F L Pulse Rate 51 L 50 L Respiratory Rate 16 16 16 Blood Pressure 135/72 Pulse Oximetry 96 96 97 04/04/18 15:21 04/04/18 16:00 04/04/18 17:00 Temperature 97.2 F L 97.2 F L Pulse Rate 51 L 52 L 82 Respiratory Rate 16 16 20 Blood Pressure 142/71 H 146/87 H Pulse Oximetry 97 97 Intake & Output 04/03/18 04/04/18 04/04/18 18:59 06:59 18:59 Intake Total 1267.5 / 1267.5 650 / 650 400 / 400 Output Total 4200 / 4200 3500 / 3500 Balance -2932.5 / -2932.5 -2850 / -2850 400 / 400 Weight 84.9 kg Intake: IV 1267.5 / 1267.5 650 / 650 400 / 400 Precedex Inj 200 MCG In NS Inj 50 / 50 200 / 200 100 / 100 48 ML @ 0.2 MCG/KG/HR 4.31 mls/ hr IV.CONT TITRATE PRN Rx#: [id number] Versed Inj 100 mg In 100 ml @ 2 100 / 100 MG/HR 2 mls/hr IV.CONT TITRATE PRN Rx#:[id number] Flexbumin 25% Inj 100 ML @ 60 100 / 100 100 / 100 100 / 100 mls/hr IV.SIG Q8H [facility] Rx#: [id number] Zosyn 4.5 GM Premix 4.5 gm In 200 / 200 100 ml @ 200 mls/hr IV.SIG Q6H [facility] Rx#:[id number] KCl 40 mEq Premix Inj 40 meq In 200 / 200 100 / 100 100 / 100 100 ml @ 25 mls/hr IV.SIG Q2H [facility] Rx#:[id number] Vancomycin Inj 1,750 MG In NS 517.5 / 517.5 Inj 500 ML @ 250 mls/hr IV.SIG Q12H [facility] Rx#:[id number] Rocephin Inj 2,000 MG In NS Inj 100 / 100 100 / 100 100 ML @ 200 mls/hr IV.SIG Q24H [facility] Rx#:[id number] fentaNYL 10 mcg/mL Premix Drip 250 / 250 2,500 mcg In 250 ml @ 50 MCG/HR 5 mls/hr IV.SIG TITRATE PRN Rx #:[id number] Output: Urine Amount (Catheter) 4200 / 4200 3300 / 3300 Indwelling Urethral Catheter 4200 / 4200 3300 / 3300 Gastric Drainage 200 / 200 Orogastric Tube 200 / 200 - Constitutional average body habitus, somnolent - Routine HEENT Exam Head: Present: normocephalic, atraumatic Eye: Present: PERRL ENT: Present: mucous membranes moist, nares patent - Routine Neck Exam Present: supple (well healed incision without any swelling erythema or drainage) , full ROM, trachea midline - Routine Respiratory Exam Present: patient mechanically ventilated, CTA bilaterally - Routine Cardiovascular Exam Present: RRR, S1, S2 - Routine Abdominal Exam Present: soft - Routine Extremities Exam Present: full ROM - Routine Skin Exam Present: intact - Routine Neurological Exam Present: moving all extremities - Detailed Neurological Exam: Coma Scale Eye Opening: Spontaneous Verbal Response: None (intubated) Motor Response: Obey commands Soraya Coma Scale Total: 11 - Urinary Catheter Management Indwelling Urethral Catheter Cath placed during this visit: yes Reason for continuing: Hourly intake/output Insertion date: 03/31/18 Insertion time: 18:00 Assessment and Plan - Plan 67-year-old gentleman status post anterior C5-6 micro discectomy with fusion 7 weeks out from his surgery. He had mild hoarseness post-operatively which is improving related to recurrent nerve nerve irritation from retraction. This usually resolves but can take 2-3 months and if there is persistent unilateral vocal cord movement impairment then a collagen injection by ENT usually helps alleviate this problem. Continue with management of his pulmonary condition and CPAP trials with extubation attempt again as tolerated. I had a lengthy discussion with the patient's daughters at the bedside and they had multiple questions which were answered. At this point no neurosurgical intervention is needed.
[2018-04-05] MEDS: Oral Hygiene Kit OROPHARYNG SCH ×5 (00:01→23:52)
[2018-04-05] MEDS: Propofol 1000 mg/100 ml Inj 1,000 MG/100 ML BOTTLE IV.CONT PRN ×3 (02:05→22:26)
[2018-04-05 04:40] LABS: Baso % (Auto) 0.3 % (0.0-2.0); Eos # (Auto) 0.1 th/mm3 (0.0-0.4); Eos % (Auto) 0.8 % (0.0-4.0); Hematocrit 35.5 % (39.0-51.0); Hemoglobin 11.9 gm/dL (13.0-17.0); Lymph # (Auto) 0.8 th/mm3 (1.0-4.8); Lymph % (Auto) 8.2 % (9.0-44.0); Mean Corpuscular HGB Conc 33.5 % (32.0-36.0); Mean Corpuscular Hemoglobin 31.1 pg (27.0-34.0); Mean Corpuscular Volume 92.9 fL (80.0-100.0); Mean Platelet Volume 7.5 fL (7.0-11.0); Mono # (Auto) 1.2 th/mm3 (0.0-0.9); Mono % (Auto) 11.5 % (0.0-8.0); Neut % (Auto) 79.2 % (16.0-70.0); Platelet Count 279 th/mm3 (150-450); Red Blood Count 3.82 mil/mm3 (4.50-5.90); Red Cell Distribution Width 14.6 % (11.6-17.2); White Blood Count 10.2 th/mm3 (4.0-11.0)
[2018-04-05] MEDS: Chlorhexidine Gluconate 2% 1 Pack (2 Cloths) TOPICAL SCH (04:42)
[2018-04-05 05:17] LABS: Alanine Aminotransferase 32 U/L (12-78); Albumin 3.5 g/dL (3.4-5.0); Alkaline Phosphatase 69 U/L (45-117); Anion Gap 6 meq/L (5-15); Aspartate Aminotransferase 19 U/L (15-37); Blood Urea Nitrogen 14 mg/dL (7-18); Calcium 8.7 mg/dL (8.5-10.1); Carbon Dioxide 28.3 meq/L (21.0-32.0); Chloride 114 meq/L (98-107); Glomerular Filtration Rate 76 mL/min (>89); Glucose,Random 93 mg/dL (74-106); Potassium 3.3 meq/L (3.5-5.1); Sodium 148 meq/L (136-145)
[2018-04-05] MEDS: Levothyroxine 125 MCG Tablet PO SCH (05:18)
--- NOTE | 2018-04-05 08:03 | P.PNCC ---
Subjective Subjective Remarks/Hospital Course: This 67-year-old came into the emergency room today with his and daughter. On 02/13/2018, he had a microdiscectomy, C5-C6, by Dr. Schwarz. He was discharged home the next day. A few days after, he had not been feeling well, short of breath, disoriented, generally weak, symptoms were getting worse, disorientation was worse. He was referred to emergency department by his primary care physician for an evaluation. In the ED he was found to be in severe hypercarbic respiratory acidosis and was intubated by ED attending. 04/01: CO2 retention corrected. Remains mildly alkalotic due to chronic CO2 elevation. PH normalized. Still requiring vasopressor therapy with norepinephrine. Broad-spectrum antibiotic coverage started. Lumbar puncture performed with opening pressure 20 and crystal-clear fluid, sent for cell counts , chemistries and culture. HSV included. One extra tube sent for future studies if necessary. Ammonia level 71 - repeat daily. 04/02: CSF appears benign. Repeat ammonia level normal. Gamma GT normal. Cardiac echo estimated of 45% ejection fraction requires a little additional investigation -patient has been chronically short of breath for several weeks now. Leukocytosis and left shift persists. Gram-positive cocci and white cells seen in sputum. This man clearly became acutely and critically ill - exact cause still eludes us. 04/03: Leukocytosis improved. Remains quite rigid when stimulated. Continues to move 4 limbs with purpose and follows commands with 4 limbs. Sputum demonstrates white blood cells and gram-negative rods. 04/04: Improved color and perfusion. Extubated yesterday afternoon but failed after about 45 minutes -developed somnolence then obtundation, appeared to be having difficulty taking a breath, concern for vocal cord dysfunction. On reintubation the cord edges were irregular but otherwise normal in appearance. I could not assess cord function as patient was not alert enough to cooperate with commands. We will definitely pursue possibilities of vocal cord dysfunction and or phrenic nerve paralysis once we get him extubated. Ideally, a sniff test under fluoroscopy would demonstrate any paradoxical diaphragm motion. SUBJECTIVE: 04/05: Afebrile. Neurologically appears intact. Daughter concerned about "appears distant" however on 40 mcg/kg/min of propofol and 250 mcg an hour fentanyl. No bowel movement since admission. Tube feeding only at 20 cc an hour.. Objective Vital Signs / I&O: Vital Signs 04/04/18 08:58 04/04/18 09:00 04/04/18 09:03 Temperature 99.3 F Pulse Rate 72 58 L 61 Respiratory Rate 16 16 16 Blood Pressure 181/91 H 197/96 H Pulse Oximetry 97 97 97 04/04/18 09:10 04/04/18 09:53 04/04/18 09:57 Temperature Pulse Rate 55 L 76 70 Respiratory Rate 16 16 16 Blood Pressure 170/96 H Pulse Oximetry 97 98 04/04/18 09:59 04/04/18 10:00 04/04/18 10:07 Temperature Pulse Rate 59 L 49 L 58 L Respiratory Rate 16 16 16 Blood Pressure 191/94 H 190/103 H Pulse Oximetry 96 98 98 04/04/18 10:32 04/04/18 11:00 04/04/18 11:08 Temperature Pulse Rate 75 64 Respiratory Rate 16 16 16 Blood Pressure 175/95 H Pulse Oximetry 97 96 96 04/04/18 11:43 04/04/18 11:59 04/04/18 12:00 Temperature 98.4 F Pulse Rate 63 67 65 Respiratory Rate 25 H 21 20 Blood Pressure 190/89 H 174/81 H Pulse Oximetry 96 96 96 04/04/18 12:59 04/04/18 13:00 04/04/18 13:45 Temperature 98.1 F 98.1 F 97.9 F Pulse Rate 50 L 48 L 72 Respiratory Rate 16 16 16 Blood Pressure 154/73 H 167/81 H Pulse Oximetry 97 97 96 04/04/18 13:59 04/04/18 14:00 04/04/18 14:59 Temperature 97.9 F 97.9 F 97.5 F L Pulse Rate 62 60 51 L Respiratory Rate 16 16 16 Blood Pressure 161/78 H 135/72 Pulse Oximetry 97 97 96 04/04/18 15:00 04/04/18 15:19 04/04/18 15:21 Temperature 97.5 F L Pulse Rate 50 L 51 L Respiratory Rate 16 16 16 Blood Pressure Pulse Oximetry 96 97 04/04/18 16:00 04/04/18 17:00 04/04/18 18:00 Temperature 97.2 F L 97.2 F L 98.4 F Pulse Rate 52 L 82 122 H Respiratory Rate 16 20 28 H Blood Pressure 142/71 H 146/87 H Pulse Oximetry 97 97 93 L 04/04/18 18:01 04/04/18 18:33 04/04/18 18:59 Temperature 98.4 F 98.8 F 99.0 F Pulse Rate 122 H 102 H 91 H Respiratory Rate 27 H 16 16 Blood Pressure 176/91 H 151/85 H 133/67 Pulse Oximetry 91 L 95 95 04/04/18 19:00 04/04/18 19:35 04/04/18 19:37 Temperature 99.0 F Pulse Rate 92 H 87 Respiratory Rate 16 16 16 Blood Pressure Pulse Oximetry 94 L 96 04/04/18 19:59 04/04/18 20:00 04/04/18 20:05 Temperature 99.1 F 99.1 F Pulse Rate 92 H 92 H 81 Respiratory Rate 16 16 Blood Pressure 142/67 H Pulse Oximetry 97 96 98 04/04/18 20:59 04/04/18 21:00 04/04/18 21:59 Temperature 99.3 F Pulse Rate 79 81 71 Respiratory Rate 16 16 16 Blood Pressure 139/70 127/64 Pulse Oximetry 96 96 96 04/04/18 22:00 04/04/18 22:20 04/04/18 22:59 Temperature 99.5 F Pulse Rate 68 64 Respiratory Rate 16 16 16 Blood Pressure 110/57 L Pulse Oximetry 96 96 96 04/04/18 23:00 04/04/18 23:59 04/05/18 00:00 Temperature 99.5 F 99.3 F Pulse Rate 63 78 79 Respiratory Rate 16 16 16 Blood Pressure 166/74 H Pulse Oximetry 96 97 97 04/05/18 00:04 04/05/18 00:59 04/05/18 01:00 Temperature Pulse Rate 81 79 80 Respiratory Rate 16 16 16 Blood Pressure 150/80 H 122/66 Pulse Oximetry 98 96 96 04/05/18 01:05 04/05/18 01:59 04/05/18 02:00 Temperature Pulse Rate 69 69 Respiratory Rate 16 16 16 Blood Pressure 108/58 L Pulse Oximetry 95 95 95 04/05/18 02:10 04/05/18 02:16 04/05/18 02:59 Temperature Pulse Rate 71 82 85 Respiratory Rate 16 16 Blood Pressure 108/58 L 152/74 H Pulse Oximetry 95 97 04/05/18 03:00 04/05/18 03:59 04/05/18 04:00 Temperature 99.5 F Pulse Rate 88 93 H 94 H Respiratory Rate 16 16 16 Blood Pressure Pulse Oximetry 97 97 97 04/05/18 04:05 04/05/18 04:09 04/05/18 04:10 Temperature Pulse Rate 84 92 H Respiratory Rate 16 16 Blood Pressure 161/77 H Pulse Oximetry 97 97 04/05/18 05:00 04/05/18 05:18 04/05/18 05:23 Temperature Pulse Rate 108 H 82 79 Respiratory Rate 19 16 16 Blood Pressure 102/56 L Pulse Oximetry 95 95 96 04/05/18 05:47 Temperature Pulse Rate 70 Respiratory Rate Blood Pressure Pulse Oximetry Intake & Output 04/04/18 04/05/18 04/05/18 18:59 06:59 18:59 Intake Total 882 / 882 682 / 682 100 / 100 Output Total 1200 / 1200 1150 / 1150 Balance -318 / -318 -468 / -468 100 / 100 Weight 84.1 kg Intake: IV 500 / 500 450 / 450 100 / 100 Precedex Inj 200 MCG In NS Inj 100 / 100 48 ML @ 0.2 MCG/KG/HR 4.31 mls/ hr IV.CONT TITRATE PRN Rx#: [id number] Diprivan 1000 mg/100 ml Inj 1, 200 / 200 100 / 100 000 mg In 100 ml @ 5 MCG/KG/MIN 2.547 mls/hr IV.CONT TITRATE PRN Rx#:[id number] Flexbumin 25% Inj 100 ML @ 60 200 / 200 mls/hr IV.SIG Q8H GIGI Rx#: [id number] KCl 40 mEq Premix Inj 40 meq In 100 / 100 100 ml @ 25 mls/hr IV.SIG Q2H PRN Rx#:[id number] Rocephin Inj 2,000 MG In NS Inj 100 / 100 100 ML @ 200 mls/hr IV.SIG Q24H GIGI Rx#:[id number] fentaNYL 10 mcg/mL Premix Drip 250 / 250 2,500 mcg In 250 ml @ 50 MCG/HR 5 mls/hr IV.SIG TITRATE PRN Rx #:[id number] Tube Feeding 202 / 202 132 / 132 Tube Irrigant 180 / 180 100 / 100 Output: Urine Amount (Catheter) 1200 / 1200 1150 / 1150 Indwelling Urethral Catheter 1200 / 1200 1150 / 1150 Other: Date of Last Bowel Movement 03/31/18 # Bowel Movements 0 Result Diagrams: 04/05/18 04:25 04/05/18 04:25 Other Results: Microbiology 03/31/18 19:04 Blood - Peripheral Aerobic Blood Culture - Preliminary No growth in 4 days 03/31/18 19:04 Blood - Peripheral Anaerobic Blood Culture - Preliminary No growth in 4 days 03/31/18 19:09 Blood - Peripheral Aerobic Blood Culture - Preliminary No growth in 4 days 03/31/18 19:09 Blood - Peripheral Anaerobic Blood Culture - Preliminary No growth in 4 days 04/01/18 18:15 Lumbar Puncture Gram Stain - Final 04/01/18 18:15 Lumbar Puncture CSF Culture - Final No growth in 72 hours 04/01/18 06:00 Sputum - Endotracheal Gram Stain - Final 04/01/18 06:00 Sputum - Endotracheal Sputum Culture - Final Klebsiella oxytoca 04/01/18 06:00 Nasal Wash Influenza Types A,B Antigen - Final Negative for FLU A and B antigen Infection due to influenza A or B cannot be ruled out since the antigen present in the sample may be below the detection limit of the test. Imaging: Head MRI 03/31/18 00:00 CONCLUSION: Negative exam Chest X-Ray 03/31/18 12:15 CONCLUSION: 1. Hypoinflation with probable atelectatic changes above the left hemidiaphragm. 2. Otherwise, no acute cardiopulmonary process. Head CT 03/31/18 12:16 CONCLUSION: 1. Negative CT Head non contrast. . Chest CTA 03/31/18 14:39 CONCLUSION: 1. Bibasilar atelectatic changes, left greater than right. No confluent infiltrate. 2. No pulmonary embolus. 3. Atherosclerotic calcification of the coronary arteries. Chest X-Ray 03/31/18 16:11 CONCLUSION: 1. Hypoinflation with persistent left basilar atelectasis. 2. Endotracheal tube tip at the clavicular heads, above the duane. Cervical Spine MRI 03/31/18 16:17 CONCLUSION: 1. Status post fusion at the C5-C6 level. There is susceptibility artifact from the hardware. 2. A significant area of stenosis in the thecal sac is not seen. 3. Facet hypertrophy seen throughout with scattered areas of neural foraminal narrowing as described above. 4. The patient is intubated with fluid in the hypopharynx, laryngeal pharynx, and upper trachea around the ET tube and above the tracheal ET tube cuff. 5. The does appear to be some mild soft tissue swelling in the prevertebral region best seen on the sagittal images. Chest X-Ray 04/01/18 04:29 CONCLUSION: 1. Nasogastric tube and left subclavian central venous catheter now in place. 2. Mild bilateral lower lung zone atelectasis unchanged. No evidence of pneumothorax. Chest X-Ray 04/02/18 04:00 CONCLUSION: No significant interval change. Mild bilateral lower lung zone atelectasis. Chest X-Ray 04/04/18 00:00 CONCLUSION: Stable chest. Persistent bibasilar patchy opacities. Objective Remarks: GENERAL: 67-year-old male currently orotracheally intubated SKIN: Warm and dry. HEAD: Atraumatic. Normocephalic. EYES: Pupils equal and round. No scleral icterus. No injection or drainage. ENT: No nasal bleeding or discharge. Mucous membranes pink and moist. NECK: Trachea midline. No JVD. CARDIOVASCULAR: Regular rate and rhythm. RESPIRATORY: No accessory muscle use. Clear to auscultation. Breath sounds equal bilaterally. GASTROINTESTINAL: Abdomen soft, non-tender, nondistended. Hepatic and splenic margins not palpable. MUSCULOSKELETAL: Extremities without clubbing, cyanosis, or edema. No obvious deformities. NEUROLOGICAL: Follows commands and moves extremities. Rigid Assessment and Plan - Assessment and Plan Plan: Neuro/Psych: History of anterior C5/6 microdiscectomy with fusion Currently on propofol/fentanyl drips for sedation/analgesia while intubated Goal of RA SS 0 Daily sedation vacation Evaluate by neurosurgery/Dr. Viera. No indication for CT brain/MRI C-spine negative EEG revealed no epileptic activity Neurology following. Recommend myasthenia gravis lab. For accurate evaluation when stable Thiamine and MMA pending CV: Systolic heart failure unknown if acute or chronic Essential hypertension Hyperlipidemia Ejection fraction 45% on admission. Will need further evaluation Continue amlodipine 10 mg daily, lisinopril 2.5 mg a metoprolol tartrate 12.5 mg twice daily for hypertension Continue pravastatin 40 mg daily for dyslipidemia. Continue aspirin 81 mg by mouth daily. Resp: Acute hypercapnic respiratory failure Klebsiella oxycodone pneumonia PRVC ventilation Ventilator bundle Head of bed at 30 degrees Albuterol/ipratropium aerosols every 4 hours with albuterol aerosols every 2 hours as needed dyspnea Spontaneous breathing trials once clinically indicated Will need sniff test to assess diaphragmatic function once extubated We will consult ENT to assess vocal cords GI: Gastroesophageal reflux disease Currently on tube feeds at 40 cc an hour. At home on pantoprazole 40 mg daily. Currently on famotidine 20 mg IV twice daily Docusate sodium/senna 1 tablet twice daily for bowel regimen. On lactulose 30 cc twice daily. Add polyethylene glycol 17 g twice daily and methylnaltrexone x1 today. : Wood catheter if indicated for accurate I's and O's in a critical patient Endo: Hypothyroidism TSH 1.28. Continue levothyroxine 125 mg by mouth daily Sliding scale insulin if indicated to maintain euglycemia Renal: Creatinine currently within normal limits Accurate I's Monitor urine output Heme: Normocytic anemia Monitor CBC daily. Follow trends per No indication for transfusion of blood proximal to this time. ID: Klebsiella oxycodone pneumonia sputum 04/01 Currently on ceftriaxone per infectious disease. Lumbar puncture negative. HSV negative FEN: Hypophosphatemia Hypernatremia Free water 100 cc every 8 hours. Replace electrolytes as clinically indicated per ICU electrical protocol. Recheck electro lites in a.m. MSK: PT evaluate and treat Access -Utilize peripheral IV. Central line if indicated Prophylaxis -GI -famotidine -DVT -SCD/enoxaparin Level 2 follow-up
--- NOTE | 2018-04-05 08:04 | P.PNNEU ---
Subjective Active Medications: Active Medications Acetaminophen (Tylenol) 650 mg PO Q4H PRN PRN Reason: Temp > 100.4 Last Admin: 04/01/18 15:53 Dose: 650 mg Al Hydroxide/Mg Hydroxide (Milk Of [place]) 30 ml PO Q12H PRN PRN Reason: Mild Constipation Last Admin: 04/05/18 05:18 Dose: 30 ml Albuterol (Duoneb Neb (Prn)) 1 ampul NEB Q4HR NEB PRN PRN Reason: SHORTNESS OF BREATH Last Admin: 04/04/18 19:37 Dose: 1 ampul Amlodipine Besylate (Norvasc) 10 mg PO DAILY [facility] Last Admin: 04/04/18 08:35 Dose: 10 mg Aspirin (Ecotrin) 81 mg PO DAILY [facility] Last Admin: 04/04/18 08:35 Dose: 81 mg Chlorhexidine Gluconate (Peridex 0.12% Oral Kit) 15 ml OROPHARYNG BID@0800, 2000 [facility] Last Admin: 04/04/18 20:36 Dose: 15 ml Chlorhexidine Gluconate (Chlorhexidine 2% Cloth) 3 pack TOPICAL DAILY@0400 [facility] Stop: 04/06/18 03:59 Last Admin: 04/05/18 04:42 Dose: 3 pack Chlorhexidine Gluconate (Chlorhexidine 2% Cloth) 3 pack TOPICAL DAILY@0400 PRN PRN Reason: Extra cloth needed Stop: 04/06/18 03:59 Clonidine HCl (Catapres) 0.1 mg PO Q12HR [facility] Last Admin: 04/04/18 20:36 Dose: 0.1 mg Enoxaparin Sodium (Lovenox Inj) 30 mg SQ Q24H [facility] Last Admin: 04/04/18 14:12 Dose: 30 mg Famotidine (Pepcid Pf Inj) 20 mg IV.PUSH Q12HR [facility] Last Admin: 04/04/18 20:36 Dose: 20 mg Sodium Chloride (Ns Inj) 1,000 mls @ 30 mls/hr IV.CONT .Q24H [facility] Last Admin: 04/04/18 11:47 Dose: Not Given Fentanyl (Fentanyl 10 Mcg/Ml Premix Drip) 2,500 mcg in 250 mls @ 5 mls/hr IV.SIG TITRATE PRN; Protocol PRN Reason: Per Protocol Last Admin: 04/04/18 21:34 Dose: 150 mcg/hr, 15 mls/hr Midazolam HCl (Versed Inj) 100 mg in 100 mls @ 2 mls/hr IV.CONT TITRATE PRN; Protocol PRN Reason: See protocol Last Titration: 04/03/18 12:16 Dose: Infused Norepinephrine Bitartrate (Levophed-Dextrose 4 Mg/250 Ml Drip) 4 mg in 250 mls @ 7.5 mls/hr IV.SIG TITRATE PRN; Protocol PRN Reason: Per Protocol Last Titration: 04/03/18 20:00 Dose: 0 mcg/min, 0 mls/hr Dexmedetomidine HCl 200 mcg/ (Sodium Chloride) 50 mls @ 4.31 mls/hr IV.CONT TITRATE PRN; Protocol PRN Reason: Per Protocol Last Titration: 04/04/18 13:55 Dose: Infused Magnesium Sulfate 4 gm/ Sodium (Chloride) 100 mls @ 50 mls/hr IV.SIG UNSCH PRN PRN Reason: For Magnesium 0.9 - 1.1 mg/dL Magnesium Sulfate 2 gm/ Sodium (Chloride) 100 mls @ 50 mls/hr IV.SIG UNSCH PRN PRN Reason: For Magnesium 1.2 - 1.6 mg/dL Potassium Chloride (Kcl 40 Meq Premix Inj) 40 meq in 100 mls @ 25 mls/hr IV.SIG Q2H PRN PRN Reason: For Potassium 2.8 - 3.2 mEq/L Last Infusion: 04/04/18 07:30 Dose: Infused Potassium Chloride (Kcl 20 Meq Premix Inj) 20 meq in 100 mls @ 50 mls/hr IV.SIG Q2H PRN PRN Reason: For Potassium 3.3 - 3.5 mEq/L Potassium Chloride (Kcl 20 Meq Premix Inj) 20 meq in 100 mls @ 50 mls/hr IV.SIG Q2H PRN PRN Reason: For Potassium 2.8 - 3.2 mEq/L Potassium Phosphate 30 mmol/ (Sodium Chloride) 260 mls @ 42 mls/hr IV.SIG UNSCH PRN PRN Reason: SEE LABEL COMMENTS Sodium Phosphate 30 mmol/ (Sodium Chloride) 260 mls @ 42 mls/hr IV.SIG UNSCH PRN PRN Reason: For Phosphorus < 2.5 mg/dL Potassium Chloride (Kcl 40 Meq Premix Inj) 40 meq in 100 mls @ 25 mls/hr IV.SIG UNSCH PRN PRN Reason: For Potassium 3.3 - 3.5 mEq/L Last Admin: 04/05/18 05:33 Dose: 25 mls/hr Ceftriaxone Sodium 2,000 mg/ (Sodium Chloride) 100 mls @ 200 mls/hr IV.SIG Q24H [facility] Last Infusion: 04/04/18 15:00 Dose: Infused Propofol (Diprivan 1000 Mg/100 Ml Inj) 1,000 mg in 100 mls @ 2.547 mls/hr IV.CONT TITRATE PRN; Protocol PRN Reason: Per Protocol Last Titration: 04/05/18 07:45 Dose: 40 mcg/kg/min, 20.38 mls/hr Labetalol HCl (Trandate Inj) 20 mg IV.PUSH Q1H PRN PRN Reason: SBP > 160 Last Admin: 04/04/18 02:04 Dose: 20 mg Lactulose (Lactulose Liq) 30 ml PO TID [facility] Last Admin: 04/04/18 17:03 Dose: 30 ml Levothyroxine Sodium (Synthroid) 125 mcg PO DAILY@0600 [facility] Last Admin: 04/05/18 05:18 Dose: 125 mcg Lisinopril (Prinivil) 5 mg PO DAILY [facility] Last Admin: 04/04/18 08:35 Dose: 5 mg Magnesium Oxide (Mag-Ox) 800 mg PO UNSCH PRN PRN Reason: For Magnesium 1.2 - 1.6 mg/dL Metoprolol Tartrate (Lopressor) 12.5 mg PO BID [facility] Last Admin: 04/04/18 20:36 Dose: 12.5 mg Miscellaneous Information ([facility] [place]dered [facility] Info) 0 each OTHER ONCE ONE Stop: 04/05/18 09:46 Miscellaneous Medication () 1 each OROPHARYNG 0000,0400,1200,1600 [facility] Last Admin: 04/05/18 04:42 Dose: 1 each Ondansetron HCl (Zofran Inj) 4 mg IV.PUSH Q6H PRN PRN Reason: NAUSEA OR VOMITING Potassium Chloride (Kcl Liq) 40 meq PO UNSCH PRN PRN Reason: Potassium level 3.3-3.5 mEq/L Potassium Chloride (Kcl Liq) 40 meq PO UNSCH PRN PRN Reason: Potassium level 3.3-3.5 mEq/L Potassium Phosphate (K-Phos Original) 2,000 mg PO Q4H PRN PRN Reason: Phosphorus Less Than 2.5 mg/dL Potassium Phosphate (K-Phos Original) 2,000 mg PO UNSCH PRN PRN Reason: SEE LABEL COMMENTS Pravastatin Sodium (Pravachol) 40 mg PO HS [facility] Last Admin: 04/04/18 20:36 Dose: 40 mg Senna/Docusate Sodium (Celine-Colace) 1 tab PO BID [facility] Last Admin: 04/04/18 20:36 Dose: 1 tab Sodium Chloride (Ns Flush) 2 ml IV.FLUSH BID [facility] Last Admin: 04/04/18 20:36 Dose: 2 ml Sodium Chloride (Ns Flush) 2 ml IV.FLUSH PRN PRN PRN Reason: FLUSH AFTER USING IV ACCESS Terbutaline Sulfate (Brethine Inj) 1 mg SQ UNSCH PRN PRN Reason: For Extravasation Allergies/Adverse Reactions: Allergies Allergy/AdvReac Type Severity Reaction Status Date / Time Sulfa (Sulfonamide Allergy Severe Nausea Verified 02/15/18 05:02 Antibiotics) Physical Exam Vital signs: Vital Signs 04/04/18 08:58 04/04/18 09:00 04/04/18 09:03 Temperature 99.3 F Pulse Rate 72 58 L 61 Respiratory Rate 16 16 16 Blood Pressure 181/91 H 197/96 H Pulse Oximetry 97 97 97 04/04/18 09:10 04/04/18 09:53 04/04/18 09:57 Temperature Pulse Rate 55 L 76 70 Respiratory Rate 16 16 16 Blood Pressure 170/96 H Pulse Oximetry 97 98 04/04/18 09:59 04/04/18 10:00 04/04/18 10:07 Temperature Pulse Rate 59 L 49 L 58 L Respiratory Rate 16 16 16 Blood Pressure 191/94 H 190/103 H Pulse Oximetry 96 98 98 04/04/18 10:32 04/04/18 11:00 04/04/18 11:08 Temperature Pulse Rate 75 64 Respiratory Rate 16 16 16 Blood Pressure 175/95 H Pulse Oximetry 97 96 96 04/04/18 11:43 04/04/18 11:59 04/04/18 12:00 Temperature 98.4 F Pulse Rate 63 67 65 Respiratory Rate 25 H 21 20 Blood Pressure 190/89 H 174/81 H Pulse Oximetry 96 96 96 04/04/18 12:59 04/04/18 13:00 04/04/18 13:45 Temperature 98.1 F 98.1 F 97.9 F Pulse Rate 50 L 48 L 72 Respiratory Rate 16 16 16 Blood Pressure 154/73 H 167/81 H Pulse Oximetry 97 97 96 04/04/18 13:59 04/04/18 14:00 04/04/18 14:59 Temperature 97.9 F 97.9 F 97.5 F L Pulse Rate 62 60 51 L Respiratory Rate 16 16 16 Blood Pressure 161/78 H 135/72 Pulse Oximetry 97 97 96 04/04/18 15:00 04/04/18 15:19 04/04/18 15:21 Temperature 97.5 F L Pulse Rate 50 L 51 L Respiratory Rate 16 16 16 Blood Pressure Pulse Oximetry 96 97 04/04/18 16:00 04/04/18 17:00 04/04/18 18:00 Temperature 97.2 F L 97.2 F L 98.4 F Pulse Rate 52 L 82 122 H Respiratory Rate 16 20 28 H Blood Pressure 142/71 H 146/87 H Pulse Oximetry 97 97 93 L 04/04/18 18:01 04/04/18 18:33 04/04/18 18:59 Temperature 98.4 F 98.8 F 99.0 F Pulse Rate 122 H 102 H 91 H Respiratory Rate 27 H 16 16 Blood Pressure 176/91 H 151/85 H 133/67 Pulse Oximetry 91 L 95 95 04/04/18 19:00 04/04/18 19:35 04/04/18 19:37 Temperature 99.0 F Pulse Rate 92 H 87 Respiratory Rate 16 16 16 Blood Pressure Pulse Oximetry 94 L 96 04/04/18 19:59 04/04/18 20:00 04/04/18 20:05 Temperature 99.1 F 99.1 F Pulse Rate 92 H 92 H 81 Respiratory Rate 16 16 Blood Pressure 142/67 H Pulse Oximetry 97 96 98 04/04/18 20:59 04/04/18 21:00 04/04/18 21:59 Temperature 99.3 F Pulse Rate 79 81 71 Respiratory Rate 16 16 16 Blood Pressure 139/70 127/64 Pulse Oximetry 96 96 96 04/04/18 22:00 04/04/18 22:20 04/04/18 22:59 Temperature 99.5 F Pulse Rate 68 64 Respiratory Rate 16 16 16 Blood Pressure 110/57 L Pulse Oximetry 96 96 96 04/04/18 23:00 04/04/18 23:59 04/05/18 00:00 Temperature 99.5 F 99.3 F Pulse Rate 63 78 79 Respiratory Rate 16 16 16 Blood Pressure 166/74 H Pulse Oximetry 96 97 97 04/05/18 00:04 04/05/18 00:59 04/05/18 01:00 Temperature Pulse Rate 81 79 80 Respiratory Rate 16 16 16 Blood Pressure 150/80 H 122/66 Pulse Oximetry 98 96 96 04/05/18 01:05 04/05/18 01:59 04/05/18 02:00 Temperature Pulse Rate 69 69 Respiratory Rate 16 16 16 Blood Pressure 108/58 L Pulse Oximetry 95 95 95 04/05/18 02:10 04/05/18 02:16 04/05/18 02:59 Temperature Pulse Rate 71 82 85 Respiratory Rate 16 16 Blood Pressure 108/58 L 152/74 H Pulse Oximetry 95 97 04/05/18 03:00 04/05/18 03:59 04/05/18 04:00 Temperature 99.5 F Pulse Rate 88 93 H 94 H Respiratory Rate 16 16 16 Blood Pressure Pulse Oximetry 97 97 97 04/05/18 04:05 04/05/18 04:09 04/05/18 04:10 Temperature Pulse Rate 84 92 H Respiratory Rate 16 16 Blood Pressure 161/77 H Pulse Oximetry 97 97 04/05/18 05:00 04/05/18 05:18 04/05/18 05:23 Temperature Pulse Rate 108 H 82 79 Respiratory Rate 19 16 16 Blood Pressure 102/56 L Pulse Oximetry 95 95 96 04/05/18 05:47 Temperature Pulse Rate 70 Respiratory Rate Blood Pressure Pulse Oximetry Intake & Output 04/04/18 04/05/18 04/05/18 18:59 06:59 18:59 Intake Total 882 / 882 682 / 682 100 / 100 Output Total 1200 / 1200 1150 / 1150 Balance -318 / -318 -468 / -468 100 / 100 Weight 84.1 kg Intake: IV 500 / 500 450 / 450 100 / 100 Precedex Inj 200 MCG In NS Inj 100 / 100 48 ML @ 0.2 MCG/KG/HR 4.31 mls/ hr IV.CONT TITRATE PRN Rx#: [id number] Diprivan 1000 mg/100 ml Inj 1, 200 / 200 100 / 100 000 mg In 100 ml @ 5 MCG/KG/MIN 2.547 mls/hr IV.CONT TITRATE PRN Rx#:[id number] Flexbumin 25% Inj 100 ML @ 60 200 / 200 mls/hr IV.SIG Q8H GIGI Rx#: [id number] KCl 40 mEq Premix Inj 40 meq In 100 / 100 100 ml @ 25 mls/hr IV.SIG Q2H PRN Rx#:[id number] Rocephin Inj 2,000 MG In NS Inj 100 / 100 100 ML @ 200 mls/hr IV.SIG Q24H [facility]IGI Rx#:[id number] fentaNYL 10 mcg/mL Premix Drip 250 / 250 2,500 mcg In 250 ml @ 50 MCG/HR 5 mls/hr IV.SIG TITRATE PRN Rx #:[id number] Tube Feeding 202 / 202 132 / 132 Tube Irrigant 180 / 180 100 / 100 Output: Urine Amount (Catheter) 1200 / 1200 1150 / 1150 Indwelling Urethral Catheter 1200 / 1200 1150 / 1150 Other: Date of Last Bowel Movement 03/31/18 # Bowel Movements 0 Narrative: awake alert no jerks right now follow commands well - Urinary Catheter Management Indwelling Urethral Catheter Cath placed during this visit: yes Reason for continuing: Hourly intake/output Insertion date: 03/31/18 Insertion time: 18:00 Objective Laboratory Results - last 24 hr 04/01/18 04/04/18 04/04/18 Unknown 08:24 08:24 WBC RBC Hgb Hct MCV MCH MCHC RDW Plt Count MPV Neut % (Auto) Lymph % (Auto) [place] % (Auto) Eos % (Auto) Baso % (Auto) Neut # (Auto) Lymph # (Auto) [place] # (Auto) Eos # (Auto) Baso # (Auto) WBC Differential Differential Comment Puncture Site Patient Temperature O2 Saturation ABG pH ABG pCO2 ABG pO2 ABG HCO3 ABG O2 Content ABG Base Excess ABG Methemoglobin David Test Hemoglobin Carboxyhemoglobin O2 Delivery Device Vent Setting Inspired O2 Critical Value Sodium Potassium Chloride Carbon Dioxide Anion Gap BUN Creatinine Estimated GFR Random Glucose Calcium Phosphorus 2.0 L Magnesium 2.2 Total Bilirubin AST ALT Alkaline Phosphatase Ammonia Total Protein Albumin CSF Herpes I DNA (PCR) Negative CSF Herpes II DNA (PCR) Negative 04/04/18 04/05/18 04/05/18 08:28 04:25 04:25 WBC 10.2 RBC 3.82 L Hgb 11.9 L Hct 35.5 L MCV 92.9 MCH 31.1 MCHC 33.5 RDW 14.6 Plt Count 279 MPV 7.5 Neut % (Auto) 79.2 H Lymph % (Auto) 8.2 L [place] % (Auto) 11.5 H Eos % (Auto) 0.8 Baso % (Auto) 0.3 Neut # (Auto) 8.0 H Lymph # (Auto) 0.8 L [place] # (Auto) 1.2 H Eos # (Auto) 0.1 Baso # (Auto) 0.0 WBC Differential . Differential Comment Auto diff final Puncture Site Right radial Patient Temperature 98.6 O2 Saturation 96 ABG pH 7.50 H ABG pCO2 34 L ABG pO2 98 ABG HCO3 26 ABG O2 Content 16.5 ABG Base Excess 2.8 H ABG Methemoglobin 1.1 David Test Present Hemoglobin 12.1 Carboxyhemoglobin 1.0 O2 Delivery Device Ventilator Vent Setting Prvc/ac Inspired O2 35 Critical Value No Sodium 148 H Potassium 3.3 L Chloride 114 H Carbon Dioxide 28.3 Anion Gap 6 BUN 14 Creatinine 0.98 Estimated GFR 76 L Random Glucose 93 Calcium 8.7 Phosphorus Magnesium Total Bilirubin 0.6 AST 19 ALT 32 Alkaline Phosphatase 69 Ammonia Total Protein 7.0 Albumin 3.5 D CSF Herpes I DNA (PCR) CSF Herpes II DNA (PCR) 04/05/18 04:25 WBC RBC Hgb Hct MCV MCH MCHC RDW Plt Count MPV Neut % (Auto) Lymph % (Auto) [place] % (Auto) Eos % (Auto) Baso % (Auto) Neut # (Auto) Lymph # (Auto) [place] # (Auto) Eos # (Auto) Baso # (Auto) WBC Differential Differential Comment Puncture Site Patient Temperature O2 Saturation ABG pH ABG pCO2 ABG pO2 ABG HCO3 ABG O2 Content ABG Base Excess ABG Methemoglobin David Test Hemoglobin Carboxyhemoglobin O2 Delivery Device Vent Setting Inspired O2 Critical Value Sodium Potassium Chloride Carbon Dioxide Anion Gap BUN Creatinine Estimated GFR Random Glucose Calcium Phosphorus Magnesium Total Bilirubin AST ALT Alkaline Phosphatase Ammonia 21 Total Protein Albumin CSF Herpes I DNA (PCR) CSF Herpes II DNA (PCR) Microbiology 03/31/18 19:04 Aerobic Blood Culture - Preliminary Blood - Peripheral No growth in 4 days Anaerobic Blood Culture - Preliminary No growth in 4 days 03/31/18 19:09 Aerobic Blood Culture - Preliminary Blood - Peripheral No growth in 4 days Anaerobic Blood Culture - Preliminary No growth in 4 days 04/01/18 18:15 Gram Stain - Final Lumbar Puncture CSF Culture - Final No growth in 72 hours Review/Management - Review/Management Plan: Encephalopathy Likely secondary to respiratory failure, hypoxia, metabolic etiology Respiratory failure - Lactic acidosis - Hyperammonemia - Leukocytosis - Neuro checks Q1h - MRI brain and head CT scan was unremarkable for an acute intracranial abnormality - Will reassess after patient he is off sedation. - CSF analysis is unremarkable, pending culture and HSV PCR results - EEG with evidence of encephalopathy, no epileptiform discharges or electrographic seizure activity - I met with family members and discussed the current neurologic status - There is no indication to start AEDs. -DVT prophylaxis - GI prophylaxis - Neurology will follow up. - Dr. Farias will follow up on Tuesday04/03/2018. - Please call for questions 04/03/18 met encep mri LP eeg neg labs neg my hope is off sedatives he should do fine no hx dementia nor pd acc to daughters labs ordered few more 04/04/18 much better ok to dc sedatives neurowise recheck abg still some jerking can recheck eeg when off vent 04/05/18 no jerks now looks well neuro abdalla i dw med team have pulm see check mg labs and consider sniff test if think diaphragm involved
[2018-04-05 08:25] LABS: Methylmalonic Acid 0.19 nmol/mL (<=0.40)
[2018-04-05] MEDS ORDERED: Methylnaltrexone Inj 12 MG/0.6 ML Vial SQ ONE (09:00)
[2018-04-05] MEDS ORDERED: Mineral Oil Liq 30 ML UDC PO ONE (09:00)
[2018-04-05] MEDS ORDERED: Glycerin Adult 2 GM Supp RECTAL ONE (09:00)
[2018-04-05] MEDS ORDERED: Pharmacy Ordered Lab Info OTHER ONE (09:45)
[2018-04-05] MEDS: Polyethylene Glycol 3350 17 GM Packet PO SCH ×2 (10:03→21:28)
[2018-04-05] MEDS: Famotidine PF Inj 20 MG/2 ML Vial IV.PUSH SCH ×2 (10:04→21:28)
[2018-04-05] MEDS: Metoprolol Tartrate 25 MG Tablet PO SCH ×2 (10:05→21:27)
[2018-04-05] MEDS: Senna/Docusate Sodium 8.6/50 MG Tablet PO SCH ×2 (10:05→21:28)
[2018-04-05] MEDS: Artificial Tears Opth Drops 15 ML Bottle EACH EYE SCH ×2 (10:06→19:50)
[2018-04-05] MEDS: Chlorhexidine 0.12% Oral Kit 15 ML UDC OROPHARYNG SCH ×2 (10:07→20:49)
[2018-04-05] MEDS: Dexmedetomidine Inj 200 MCG in Sodium Chlor 0.9% Inj 48 ML IV.CONT PRN ×4 (11:18→23:35)
--- NOTE | 2018-04-05 12:12 | MB ---
cc: Lorraine Farris MD DATE: 04/05/2018 REASON FOR CONSULTATION: Respiratory failure and pulmonary management. HISTORY OF PRESENT ILLNESS: This is a 67-year-old white male who had undergone a microdiscectomy at C5 and C6 done on 02/13/2018. The patient was discharged home the following day; and a week later, he was complaining of trouble taking deep breaths and having some generalized weakness, having some fullness in the lower chest and upper abdominal area where he could not catch his breath and he became more disoriented after that. He subsequently was brought to the emergency room and was admitted on 03/31 with respiratory failure. Initial blood gases demonstrated severe hypercapnia and the patient had to be ventilated and was better while on the ventilator. The patient then had fairly normal blood gases and the pH was compensated; and he, thus, was weaned off the ventilator. He did have a spinal tap done and the CSF was noted to be normal. He was on antibiotic therapy during his hospital course. On 04/03, the patient was weaned off the ventilator and extubated; and following that, he promptly became more obtunded and was having difficulty taking deep breaths. He was suspected to have some vocal cord dysfunction. The patient then had to be reintubated and placed back on ventilator support. There was some suspicion of phrenic nerve paralysis as well, but no sniff test could not be done. Since then, the patient has been placed on ventilator support at the rate of 16 and FiO2 is now down to 40%. He has been started on tube feedings, which he is tolerating but has some increase of residuals. His most recent chest x-ray, however, showed basilar patchy infiltrates consistent with atelectasis and/or pneumonia. The patient is now awake. He is assisting the ventilator. He is cooperative and his blood gases are adequate. The CO2 was down to 34 and PaO2 is 98 as of 04/04/2018. PAST MEDICAL HISTORY: Includes a history for gastroesophageal reflux disease, history of thyroid disease, hyperlipidemia, history for microdiscectomy 02/2018, an inguinal hernia repair, LASIK surgery. He has had hoarseness. HABITS: The patient is not a smoker. No significant alcohol use. 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 FAMILY HISTORY: Noncontributory. MEDICATIONS: List was reviewed from the chart. REVIEW OF SYSTEMS: The patient is on ventilator support, unable to respond. ALLERGIES: SULFA DRUGS. PHYSICAL EXAMINATION: GENERAL: This is an averagely built, elderly, white male who is intubated responsive, and appropriate. VITAL SIGNS: Blood pressure is 130/60, heart rate is 88, respirations 20, temperature 97.2. HEENT: Normocephalic. Pupils are reactive. Sclerae are clear. Throat has few secretions. Ears with no inflammation. NECK: No bruits or thyroid enlargement or lymphadenopathy. CHEST: Decreased excursions with few wheezes anteriorly and diminished breath sounds at the periphery. HEART: Heart sounds are regular, S1 and S2 with no murmur. No S3 gallop. ABDOMEN: Soft and protuberant. No masses. Bowel sounds are faint. No organomegaly. EXTREMITIES: Minimal edema. NEUROLOGIC: The patient does move all his extremities with 1+ reflexes. Babinski negative. He is responsive to commands, but somewhat lethargic. SKIN: Dry and cool. IMPRESSION: 1. Hypercapnic respiratory failure. 2. Hypoventilation and possible upper airway obstruction. 3. Diaphragmatic dysfunction. 4. Basilar pneumonia and atelectasis. 5. Sepsis, resolved. 6. History of microdiscectomy at the C5 and 6. PLAN: The patient is stable on ventilator support. We will attempt to wean the patient to CPAP and repeat a blood gas study. FiO2 weaned down to 30%. Chest x-ray to be repeated in a.m. Nebulized DuoNeb solution added q.6 hours. 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 Follow up blood gas as well.Will need further Neuro Input about Nerve dysfunction. Thank you, Dr. Rodríguez, for this consultation. Lorraine Farris MD VJD/sharon/tim , 11:24 AM , 11:39 AM TASHA
[2018-04-05] MEDS: Lisinopril 5 MG Tablet PO SCH ×2 (12:37→13:07)
[2018-04-05] MEDS: amLODIPine 10 MG Tablet PO SCH ×2 (12:38→13:08)
[2018-04-05] MEDS ORDERED: Sodium Chlor 0.9% Inj 500 ML IV.SIG ONE (14:13)
[2018-04-05] MEDS: fentaNYL 10 mcg/mL Premix Drip 2,500 MCG/250 ML BAG IV.SIG PRN (14:35)
[2018-04-05] MEDS: Enoxaparin Inj 30 MG/0.3 ML Syringe SQ SCH (14:39)
[2018-04-05] MEDS ORDERED: Norepinephrine Inj 16 MG in Sodium Chlor 0.9% Inj 234 ML IV.CONT PRN (15:00)
[2018-04-05] MEDS: Sod Chloride 0.9% Inj 1,000 ML IV.CONT SCH (16:02)
[2018-04-05] MEDS: Labetalol HCl Inj 100 MG/20 ML Vial IV.PUSH PRN (20:06)
[2018-04-06] MEDS: Artificial Tears Opth Drops 15 ML Bottle EACH EYE SCH ×3 (00:01→17:00)
[2018-04-06] MEDS: Dexmedetomidine Inj 200 MCG in Sodium Chlor 0.9% Inj 48 ML IV.CONT PRN ×2 (02:36→05:30)
--- NOTE | 2018-04-06 03:41 | XR ---
EXAM DATE: 04/06/2018 3:27 AM EST AGE/SEX: 67 years / Male INDICATIONS: Short of breath. CLINICAL DATA: This is the patient's subsequent encounter. Patient reports that signs and symptoms h ave been present for 1 week and indicates a pain score of 0/10. MEDICAL/SURGICAL HISTORY: . Thyroid disease . Microdiscectomy. Left inguinal hernia repair. COMPARISON: [facility] [place], CHEST 1V SINGLE AP, 04/04/2018. . FINDINGS: A single AP view of the chest demonstrates an endotracheal tube with the tip 5 cm from the duane. Na sogastric tube courses off the inferior margin of the film. Left subclavian central line. Heart is no rmal in size. Bibasilar consolidation noted more pronounced on the left. These have improved from the prior study. No effusions. Heart is normal in size. CONCLUSION: Some improvement in the bibasilar consolidations. Electronically signed by: Poncho Caputo MD Board Certified Radiologist 04/06/2018 3:39 AM EST
[2018-04-06 03:51] LABS: Baso % (Auto) 0.2 % (0.0-2.0); Eos % (Auto) 0.3 % (0.0-4.0); Hematocrit 35.1 % (39.0-51.0); Hemoglobin 11.9 gm/dL (13.0-17.0); Lymph # (Auto) 0.5 th/mm3 (1.0-4.8); Lymph % (Auto) 4.7 % (9.0-44.0); Mean Platelet Volume 7.7 fL (7.0-11.0); Mono # (Auto) 0.9 th/mm3 (0.0-0.9); Neut # (Auto) 8.6 th/mm3 (1.8-7.7); Neut % (Auto) 85.8 % (16.0-70.0); Platelet Count 292 th/mm3 (150-450); Red Blood Count 3.85 mil/mm3 (4.50-5.90); Red Cell Distribution Width 14.4 % (11.6-17.2)
[2018-04-06 04:14] LABS: Alanine Aminotransferase 45 U/L (12-78); Albumin 3.1 g/dL (3.4-5.0); Alkaline Phosphatase 73 U/L (45-117); Anion Gap 7 meq/L (5-15); Aspartate Aminotransferase 29 U/L (15-37); Blood Urea Nitrogen 15 mg/dL (7-18); Calcium 8.3 mg/dL (8.5-10.1); Carbon Dioxide 28.2 meq/L (21.0-32.0); Chloride 114 meq/L (98-107); Glomerular Filtration Rate Greater Than 89 mL/min (>89); Glucose,Random 132 mg/dL (74-106); Magnesium 2.6 mg/dL (1.5-2.5); Phosphorus 3.1 mg/dL (2.5-4.9); Potassium 3.2 meq/L (3.5-5.1); Sodium 149 meq/L (136-145); Total Protein 6.6 g/dL (6.4-8.2)
[2018-04-06] MEDS: Oral Hygiene Kit OROPHARYNG SCH ×3 (04:53→17:50)
[2018-04-06] MEDS: Levothyroxine 125 MCG Tablet PO SCH (05:00)
[2018-04-06] MEDS: Potassium Chlor 40 mEq Premix 40 MEQ/100 ML PIGGYBACK IV.SIG PRN ×2 (05:01→09:21)
[2018-04-06] MEDS: fentaNYL 10 mcg/mL Premix Drip 2,500 MCG/250 ML BAG IV.SIG PRN (05:59)
--- NOTE | 2018-04-06 06:34 | P.PNCC ---
Subjective Subjective Remarks/Hospital Course: This 67-year-old came into the emergency room today with his and daughter. On 02/13/2018, he had a microdiscectomy, C5-C6, by Dr. Schwarz. He was discharged home the next day. A few days after, he had not been feeling well, short of breath, disoriented, generally weak, symptoms were getting worse, disorientation was worse. He was referred to emergency department by his primary care physician for an evaluation. In the ED he was found to be in severe hypercarbic respiratory acidosis and was intubated by ED attending. 04/01: CO2 retention corrected. Remains mildly alkalotic due to chronic CO2 elevation. PH normalized. Still requiring vasopressor therapy with norepinephrine. Broad-spectrum antibiotic coverage started. Lumbar puncture performed with opening pressure 20 and crystal-clear fluid, sent for cell counts , chemistries and culture. HSV included. One extra tube sent for future studies if necessary. Ammonia level 71 - repeat daily. 04/02: CSF appears benign. Repeat ammonia level normal. Gamma GT normal. Cardiac echo estimated of 45% ejection fraction requires a little additional investigation -patient has been chronically short of breath for several weeks now. Leukocytosis and left shift persists. Gram-positive cocci and white cells seen in sputum. This man clearly became acutely and critically ill - exact cause still eludes us. 04/03: Leukocytosis improved. Remains quite rigid when stimulated. Continues to move 4 limbs with purpose and follows commands with 4 limbs. Sputum demonstrates white blood cells and gram-negative rods. 04/04: Improved color and perfusion. Extubated yesterday afternoon but failed after about 45 minutes -developed somnolence then obtundation, appeared to be having difficulty taking a breath, concern for vocal cord dysfunction. On reintubation the cord edges were irregular but otherwise normal in appearance. I could not assess cord function as patient was not alert enough to cooperate with commands. We will definitely pursue possibilities of vocal cord dysfunction and or phrenic nerve paralysis once we get him extubated. Ideally, a sniff test under fluoroscopy would demonstrate any paradoxical diaphragm motion. 04/05: Afebrile. Neurologically appears intact. Daughter concerned about "appears distant" however on 40 mcg/kg/min of propofol and 250 mcg an hour fentanyl. No bowel movement since admission. Tube feeding only at 20 cc an hour. SUBJECTIVE: 04/06: Afebrile. Neurologically intact. Following commands.. Positive BM. Labile blood pressures yesterday. Replace potassium currently. Objective Vital Signs / I&O: Vital Signs 04/05/18 08:00 04/05/18 08:06 04/05/18 08:59 Temperature Pulse Rate 70 Respiratory Rate 16 Blood Pressure 97/52 L Pulse Oximetry 98 99 04/05/18 09:00 04/05/18 09:25 04/05/18 09:59 Temperature 99.0 F 99.0 F 98.8 F Pulse Rate 70 68 70 Respiratory Rate 16 16 16 Blood Pressure 101/55 L 122/67 Pulse Oximetry 97 97 98 04/05/18 10:00 04/05/18 10:59 04/05/18 11:00 Temperature 98.8 F 99.1 F 99.1 F Pulse Rate 69 103 H 105 H Respiratory Rate 16 16 16 Blood Pressure 178/95 H Pulse Oximetry 98 97 97 04/05/18 11:36 04/05/18 11:43 04/05/18 11:59 Temperature 99.1 F Pulse Rate 97 H 89 Respiratory Rate 16 16 16 Blood Pressure 146/77 H Pulse Oximetry 96 95 04/05/18 12:00 04/05/18 13:00 04/05/18 13:12 Temperature 99.1 F 99.1 F 99.3 F Pulse Rate 90 129 H 110 H Respiratory Rate 16 20 16 Blood Pressure 159/81 H Pulse Oximetry 95 95 95 04/05/18 13:43 04/05/18 13:59 04/05/18 14:00 Temperature 99.3 F 99.3 F 99.3 F Pulse Rate 71 64 64 Respiratory Rate 16 16 16 Blood Pressure 85/53 L 72/46 L 72/51 L Pulse Oximetry 95 95 04/05/18 14:07 04/05/18 14:10 04/05/18 14:18 Temperature 99.3 F 99.3 F 99.3 F Pulse Rate 63 64 91 H Respiratory Rate 16 16 17 Blood Pressure 71/51 L Pulse Oximetry 95 96 97 04/05/18 14:23 04/05/18 14:59 04/05/18 15:00 Temperature 99.3 F 99.0 F 99.0 F Pulse Rate 85 100 H 98 H Respiratory Rate 16 17 19 Blood Pressure 139/74 Pulse Oximetry 97 97 96 04/05/18 15:22 04/05/18 15:45 04/05/18 15:59 Temperature 99.0 F 99.0 F Pulse Rate 92 H 116 H Respiratory Rate 16 11 L 23 Blood Pressure 165/94 H Pulse Oximetry 96 94 L 95 04/05/18 16:00 04/05/18 16:47 04/05/18 16:59 Temperature 99.0 F 99.1 F 99.1 F Pulse Rate 116 H 129 H 127 H Respiratory Rate 25 H 23 20 Blood Pressure 191/98 H Pulse Oximetry 94 L 89 L 90 L 04/05/18 17:00 04/05/18 17:10 04/05/18 17:17 Temperature 99.1 F 99.1 F Pulse Rate 134 H 108 H Respiratory Rate 23 16 16 Blood Pressure 106/64 Pulse Oximetry 95 96 96 04/05/18 17:59 04/05/18 18:00 04/05/18 19:00 Temperature 98.8 F 98.8 F Pulse Rate 107 H 108 H 109 H Respiratory Rate 16 16 16 Blood Pressure 150/86 H Pulse Oximetry 93 L 93 L 95 04/05/18 19:59 04/05/18 20:00 04/05/18 20:04 Temperature 99.0 F Pulse Rate 143 H 142 H 140 H Respiratory Rate 25 H 32 H 23 Blood Pressure Pulse Oximetry 97 96 96 04/05/18 20:09 04/05/18 20:10 04/05/18 20:15 Temperature 99.1 F Pulse Rate 114 H 120 H Respiratory Rate 16 17 Blood Pressure 214/107 H Pulse Oximetry 97 96 97 04/05/18 20:25 04/05/18 20:31 04/05/18 20:50 Temperature Pulse Rate 101 H 92 H 97 H Respiratory Rate 16 16 16 Blood Pressure 151/83 H 163/108 H Pulse Oximetry 96 95 04/05/18 21:00 04/05/18 21:06 04/05/18 21:51 Temperature Pulse Rate 87 86 74 Respiratory Rate 16 16 16 Blood Pressure 108/66 106/63 Pulse Oximetry 97 97 97 04/05/18 22:00 04/05/18 22:06 04/05/18 23:00 Temperature Pulse Rate 77 71 82 Respiratory Rate 16 16 16 Blood Pressure 101/60 Pulse Oximetry 97 97 98 04/05/18 23:06 04/05/18 23:19 04/05/18 23:29 Temperature Pulse Rate 92 H 74 70 Respiratory Rate 17 16 16 Blood Pressure 104/61 Pulse Oximetry 98 98 99 04/05/18 23:31 04/05/18 23:43 04/05/18 23:47 Temperature Pulse Rate 67 66 70 Respiratory Rate 16 16 16 Blood Pressure 97/56 L 93/55 L Pulse Oximetry 98 99 99 04/05/18 23:54 04/06/18 00:00 04/06/18 00:05 Temperature 99.3 F Pulse Rate 79 78 80 Respiratory Rate 16 16 Blood Pressure 139/80 Pulse Oximetry 99 99 04/06/18 00:24 04/06/18 00:54 04/06/18 01:00 Temperature Pulse Rate 84 97 H 87 Respiratory Rate 16 16 16 Blood Pressure 166/86 H Pulse Oximetry 98 98 97 04/06/18 01:02 04/06/18 01:24 04/06/18 01:54 Temperature Pulse Rate 87 81 80 Respiratory Rate 16 16 16 Blood Pressure 145/76 H 137/81 147/89 H Pulse Oximetry 97 96 97 04/06/18 02:00 04/06/18 02:24 04/06/18 03:00 Temperature Pulse Rate 80 80 77 Respiratory Rate 16 16 16 Blood Pressure 127/76 Pulse Oximetry 96 96 96 04/06/18 03:06 04/06/18 03:16 04/06/18 03:19 Temperature Pulse Rate 89 85 75 Respiratory Rate 16 16 16 Blood Pressure 148/82 H Pulse Oximetry 97 97 04/06/18 03:50 04/06/18 04:00 04/06/18 04:06 Temperature 98.6 F Pulse Rate 77 77 Respiratory Rate 16 16 16 Blood Pressure 155/89 H Pulse Oximetry 96 96 97 04/06/18 04:15 04/06/18 04:50 04/06/18 05:00 Temperature Pulse Rate 86 80 93 H Respiratory Rate 16 16 Blood Pressure 113/65 Pulse Oximetry 95 96 04/06/18 05:06 04/06/18 06:00 Temperature Pulse Rate 90 79 Respiratory Rate 16 Blood Pressure 153/91 H Pulse Oximetry 95 Intake & Output 04/05/18 04/05/18 04/06/18 06:59 18:59 06:59 Intake Total 682 / 682 2551 / 2551 1302.0 / 1302.0 Output Total 1150 / 1150 1450 / 1450 1100 / 1100 Balance -468 / -468 1101 / 1101 202.0 / 202.0 Weight 84.1 kg 84.2 kg Intake: IV 450 / 450 2100 / 2100 844.0 / 844.0 Precedex Inj 200 MCG In NS Inj 50 / 50 200.0 / 200.0 48 ML @ 0.2 MCG/KG/HR 4.31 mls/ hr IV.CONT TITRATE PRN Rx#: [id number] Diprivan 1000 mg/100 ml Inj 1, 200 / 200 100 / 100 100 / 100 000 mg In 100 ml @ 5 MCG/KG/MIN 2.547 mls/hr IV.CONT TITRATE PRN Rx#:[id number] NS Inj 1,000 ML @ 30 mls/hr IV. 1000 / 1000 294 / 294 CONT .Q24H GIGI Rx#:[id number] KCl 40 mEq Premix Inj 40 meq In 100 / 100 100 ml @ 25 mls/hr IV.SIG UNSCH PRN Rx#:[id number] NS Inj 500 ML @ Wide Open IV. 500 / 500 SIG BOLUS ONE Rx#:[id number] Rocephin Inj 2,000 MG In NS Inj 100 / 100 100 ML @ 200 mls/hr IV.SIG Q24H GIGI Rx#:[id number] fentaNYL 10 mcg/mL Premix Drip 250 / 250 250 / 250 250 / 250 2,500 mcg In 250 ml @ 50 MCG/HR 5 mls/hr IV.SIG TITRATE PRN Rx #:[id number] Tube Feeding 132 / 132 251 / 251 358 / 358 Tube Irrigant 100 / 100 200 / 200 100 / 100 Output: Urine Amount (Catheter) 1150 / 1150 1450 / 1450 1100 / 1100 Indwelling Urethral Catheter 1150 / 1150 1450 / 1450 1100 / 1100 Other: Date of Last Bowel Movement 03/31/18 04/05/18 04/05/18 # Incontinent Bowel Movements 3 Result Diagrams: 04/06/18 03:30 04/06/18 03:30 Other Results: Microbiology 03/31/18 19:04 Blood - Peripheral Aerobic Blood Culture - Final No growth in 5 days 03/31/18 19:04 Blood - Peripheral Anaerobic Blood Culture - Final No growth in 5 days 03/31/18 19:09 Blood - Peripheral Aerobic Blood Culture - Final No growth in 5 days 03/31/18 19:09 Blood - Peripheral Anaerobic Blood Culture - Final No growth in 5 days 04/01/18 18:15 Lumbar Puncture Gram Stain - Final 04/01/18 18:15 Lumbar Puncture CSF Culture - Final No growth in 72 hours 04/01/18 06:00 Sputum - Endotracheal Gram Stain - Final 04/01/18 06:00 Sputum - Endotracheal Sputum Culture - Final Klebsiella oxytoca 04/01/18 06:00 Nasal Wash Influenza Types A,B Antigen - Final Negative for FLU A and B antigen Infection due to influenza A or B cannot be ruled out since the antigen present in the sample may be below the detection limit of the test. Imaging: Head MRI 03/31/18 00:00 CONCLUSION: Negative exam Chest X-Ray 03/31/18 12:15 CONCLUSION: 1. Hypoinflation with probable atelectatic changes above the left hemidiaphragm. 2. Otherwise, no acute cardiopulmonary process. Head CT 03/31/18 12:16 CONCLUSION: 1. Negative CT Head non contrast. . Chest CTA 03/31/18 14:39 CONCLUSION: 1. Bibasilar atelectatic changes, left greater than right. No confluent infiltrate. 2. No pulmonary embolus. 3. Atherosclerotic calcification of the coronary arteries. Chest X-Ray 03/31/18 16:11 CONCLUSION: 1. Hypoinflation with persistent left basilar atelectasis. 2. Endotracheal tube tip at the clavicular heads, above the duane. Cervical Spine MRI 03/31/18 16:17 CONCLUSION: 1. Status post fusion at the C5-C6 level. There is susceptibility artifact from the hardware. 2. A significant area of stenosis in the thecal sac is not seen. 3. Facet hypertrophy seen throughout with scattered areas of neural foraminal narrowing as described above. 4. The patient is intubated with fluid in the hypopharynx, laryngeal pharynx, and upper trachea around the ET tube and above the tracheal ET tube cuff. 5. The does appear to be some mild soft tissue swelling in the prevertebral region best seen on the sagittal images. Chest X-Ray 04/01/18 04:29 CONCLUSION: 1. Nasogastric tube and left subclavian central venous catheter now in place. 2. Mild bilateral lower lung zone atelectasis unchanged. No evidence of pneumothorax. Chest X-Ray 04/02/18 04:00 CONCLUSION: No significant interval change. Mild bilateral lower lung zone atelectasis. Chest X-Ray 04/04/18 00:00 CONCLUSION: Stable chest. Persistent bibasilar patchy opacities. Chest X-Ray 04/06/18 06:00 CONCLUSION: Some improvement in the bibasilar consolidations. Objective Remarks: GENERAL: 67-year-old male currently orotracheally intubated SKIN: Warm and dry. HEAD: Atraumatic. Normocephalic. EYES: Pupils equal and round. No scleral icterus. No injection or drainage. ENT: No nasal bleeding or discharge. Mucous membranes pink and moist. NECK: Trachea midline. No JVD. CARDIOVASCULAR: Regular rate and rhythm. RESPIRATORY: No accessory muscle use. Clear to auscultation. Breath sounds equal bilaterally. GASTROINTESTINAL: Abdomen soft, non-tender, nondistended. Hepatic and splenic margins not palpable. MUSCULOSKELETAL: Extremities without clubbing, cyanosis, or edema. No obvious deformities. NEUROLOGICAL: Follows commands and moves extremities. Not reviewed today. Assessment and Plan - Assessment and Plan Plan: Neuro/Psych: History of anterior C5/6 microdiscectomy with fusion Currently on propofol/fentanyl drips for sedation/analgesia while intubated Goal of RA SS 0 Daily sedation vacation Evaluate by neurosurgery/Dr. Viera. No indication for CT brain/MRI C-spine negative EEG revealed no epileptic activity Neurology following. Recommend myasthenia gravis lab. For accurate evaluation when stable Thiamine and MMA pending CV: Systolic heart failure unknown if acute or chronic Essential hypertension Hyperlipidemia Ejection fraction 45% on admission. Will need further evaluation Continue amlodipine 10 mg daily, lisinopril 2.5 mg a metoprolol tartrate 12.5 mg twice daily for hypertension Continue pravastatin 40 mg daily for dyslipidemia. Continue aspirin 81 mg by mouth daily. Resp: Acute hypercapnic respiratory failure Klebsiella oxycodone pneumonia PRVC ventilation Ventilator bundle Head of bed at 30 degrees Albuterol/ipratropium aerosols every 4 hours with albuterol aerosols every 2 hours as needed dyspnea Spontaneous breathing trials once clinically indicated Will need sniff test to assess diaphragmatic function once extubated We will consult ENT to assess vocal cords when appropriate Appreciate pulmonary input. Spontaneous breathing trial today. Check ABG at 10 AM and see if extubated will GI: Gastroesophageal reflux disease Currently on tube feeds at 40 cc an hour. At home on pantoprazole 40 mg daily. Currently on famotidine 20 mg IV twice daily Docusate sodium/senna 1 tablet twice daily for bowel regimen. On lactulose 30 cc twice daily. Add polyethylene glycol 17 g twice daily and methylnaltrexone x1 today. : Wood catheter if indicated for accurate I's and O's in a critical patient Endo: Hypothyroidism TSH 1.28. Continue levothyroxine 125 mg by mouth daily Sliding scale insulin if indicated to maintain euglycemia Renal: Creatinine currently within normal limits Accurate I's Monitor urine output Heme: Normocytic anemia Monitor CBC daily. Follow trends per No indication for transfusion of blood proximal to this time. ID: Klebsiella oxycodone pneumonia sputum 04/01 Currently on ceftriaxone per infectious disease. Lumbar puncture negative. HSV negative FEN: Hypopotassemia Hypernatremia Free water 100 cc every 8 hours. Replace electrolytes as clinically indicated per ICU electrolyte protocol. Recheck potassium 17 hours. Receiving 80 mEq x1 now. Recheck electro lites in a.m. MSK: PT evaluate and treat Access -Maintain left subclavian CVL Prophylaxis -GI -famotidine -DVT -SCD/enoxaparin Level 3 follow-up
--- NOTE | 2018-04-06 07:54 | P.CONCA ---
History of Present Illness Primary Care Provider: Rex Longoria MD Chief Complaint: Acute respiratory failure History of Present Illness: 67-year-old male with HTN, HLD, GERD, hypothyroidism who presented for respiratory failure. The patient had cervical spine surgery in February. Shortly thereafter he had shortness of breath. He had outpatient echocardiogram in February that was essentially normal. He was referred to our office with concerns for CHF and saw us in the office earlier this month. No stigmata of CHF, but evidence of neuropathic cause of shortness of breath and was referred to neurology and pulmonology. The patient had follow-up with his PCP and was found to be confused and with worsening respiratory status and was sent to the ED for evaluation where he was found to be an acidotic respiratory failure. He has been seen and is being managed by critical care, neurology, neurosurgery, pulmonology, infectious disease. He had an echocardiogram repeated during this admission which was a poor quality study, reviewed and very difficult to assess ejection fraction, possibly 45%? Consulted for possible cardiomyopathy. EKG with NSR, no ischemic change. Initial chest imaging with no consolidation or PE. Patient is awake, but remains mechanically ventilated.with Family and RN at bedside. Review of Systems unobtainable due to endotracheal tube PMFSH - History History Provided By: Family Member, Medical Record - Medical History Medical History: Medical History (Last Reviewed 04/04/18 @ 07:53 by [employer]) GERD (gastroesophageal reflux disease) High cholesterol Raspy voice Thyroid disease - Surgical History Surgical History: Surgical History (Last Reviewed 04/04/18 @ 07:53 by [employer]) H/O microdiscectomy H/O inguinal hernia repair Status post bilateral LASIK surgery - Family History Family History: Family History (Last Reviewed 04/04/18 @ 07:53 by [employer]) Other Family history non-contributory - Tobacco History Second Hand Smoke Exposure: No Tobacco Use In Past 30 Days: No Smoking Status: Never smoker Tobacco Type: Cigarettes - Alcohol History How Often Do You Have a Drink Containing Alcohol: Monthly or less - Substance Use History Substance History: No History of Abuse - Travel History Recent Travel in the [place] Within the Last 8 Weeks: No Recent Travel Out of the Country Within the Last 8 Weeks: No - Immunization History Tetanus Immunization: <5 Years Hx Influenza Vaccine This Season: Yes Medications and Allergies Active Medications: Active Medications Acetaminophen (Tylenol) 650 mg PO Q4H PRN PRN Reason: Temp > 100.4 Last Admin: 04/01/18 15:53 Dose: 650 mg Al Hydroxide/Mg Hydroxide (Milk Of Magnjacque Liq) 30 ml PO Q12H PRN PRN Reason: Mild Constipation Last Admin: 04/05/18 05:18 Dose: 30 ml Albuterol (Duoneb Neb (Je)) 1 ampul NEB Q4HR NEB [facility] Last Admin: 04/06/18 03:19 Dose: 1 ampul Albuterol (Albuterol Neb (Prn)) 2.5 mg NEB Q2HR NEB PRN PRN Reason: DYSPNEA Amlodipine Besylate (Norvasc) 10 mg PO DAILY [facility] Last Admin: 04/05/18 13:08 Dose: 10 mg Artificial Tears (Tears Naturale Opth Drops) 1 drop EACH EYE Q8H [facility] Last Admin: 04/06/18 00:01 Dose: 1 drop Aspirin (Ecotrin) 81 mg PO DAILY [facility] [place] Last Admin: 04/05/18 10:05 Dose: 81 mg Chlorhexidine Gluconate (Peridex 0.12% Oral Kit) 15 ml OROPHARYNG BID@0800, 2000 [facility] Last Admin: 04/05/18 20:49 Dose: 15 ml Clonidine HCl (Catapres) 0.1 mg PO Q12HR [facility] Last Admin: 04/05/18 21:59 Dose: Not Given Enoxaparin Sodium (Lovenox Inj) 30 mg SQ Q24H [facility] Last Admin: 04/05/18 14:39 Dose: 30 mg Famotidine (Pepcid Pf Inj) 20 mg IV.PUSH Q12HR [facility] Last Admin: 04/05/18 21:28 Dose: 20 mg Sodium Chloride (Ns Inj) 1,000 mls @ 30 mls/hr IV.CONT .Q24H [facility] Last Infusion: 04/06/18 06:00 Dose: 30 mls/hr Fentanyl (Fentanyl 10 Mcg/Ml Premix Drip) 2,500 mcg in 250 mls @ 5 mls/hr IV.SIG TITRATE PRN; Protocol PRN Reason: Per Protocol Last Titration: 04/06/18 06:00 Dose: 150 mcg/hr, 15 mls/hr Midazolam HCl (Versed Inj) 100 mg in 100 mls @ 2 mls/hr IV.CONT TITRATE PRN; Protocol PRN Reason: See protocol Last Titration: 04/03/18 12:16 Dose: Infused Dexmedetomidine HCl 200 mcg/ (Sodium Chloride) 50 mls @ 4.31 mls/hr IV.CONT TITRATE PRN; Protocol PRN Reason: Per Protocol Last Titration: 04/06/18 06:08 Dose: 1 mcg/kg/hr, 21.57 mls/hr Magnesium Sulfate 4 gm/ Sodium (Chloride) 100 mls @ 50 mls/hr IV.SIG UNSCH PRN PRN Reason: For Magnesium 0.9 - 1.1 mg/dL Magnesium Sulfate 2 gm/ Sodium (Chloride) 100 mls @ 50 mls/hr IV.SIG UNSCH PRN PRN Reason: For Magnesium 1.2 - 1.6 mg/dL Potassium Chloride (Kcl 40 Meq Premix Inj) 40 meq in 100 mls @ 25 mls/hr IV.SIG Q2H PRN PRN Reason: For Potassium 2.8 - 3.2 mEq/L Last Admin: 04/06/18 05:01 Dose: 25 mls/hr Potassium Chloride (Kcl 20 Meq Premix Inj) 20 meq in 100 mls @ 50 mls/hr IV.SIG Q2H PRN PRN Reason: For Potassium 3.3 - 3.5 mEq/L Potassium Chloride (Kcl 20 Meq Premix Inj) 20 meq in 100 mls @ 50 mls/hr IV.SIG Q2H PRN PRN Reason: For Potassium 2.8 - 3.2 mEq/L Potassium Phosphate 30 mmol/ (Sodium Chloride) 260 mls @ 42 mls/hr IV.SIG UNSCH PRN PRN Reason: SEE LABEL COMMENTS Sodium Phosphate 30 mmol/ (Sodium Chloride) 260 mls @ 42 mls/hr IV.SIG UNSCH PRN PRN Reason: For Phosphorus < 2.5 mg/dL Potassium Chloride (Kcl 40 Meq Premix Inj) 40 meq in 100 mls @ 25 mls/hr IV.SIG UNSCH PRN PRN Reason: For Potassium 3.3 - 3.5 mEq/L Last Infusion: 04/05/18 11:20 Dose: Infused Ceftriaxone Sodium 2,000 mg/ (Sodium Chloride) 100 mls @ 200 mls/hr IV.SIG Q24H JE Last Infusion: 04/05/18 15:06 Dose: Infused Propofol (Diprivan 1000 Mg/100 Ml Inj) 1,000 mg in 100 mls @ 2.547 mls/hr IV.CONT TITRATE PRN; Protocol PRN Reason: Per Protocol Last Titration: 04/06/18 06:08 Dose: 5 mcg/kg/min, 2.55 mls/hr Norepinephrine Bitartrate 16 (mg/ Sodium Chloride) 250 mls @ 1.87 mls/hr IV.CONT TITRATE PRN; Protocol PRN Reason: See Protocol Labetalol HCl (Trandate Inj) 20 mg IV.PUSH Q1H PRN PRN Reason: SBP > 160 Last Admin: 04/05/18 20:06 Dose: 20 mg Lactulose (Lactulose Liq) 30 ml PO TID [facility] Last Admin: 04/05/18 19:40 Dose: Not Given Levothyroxine Sodium (Synthroid) 125 mcg PO DAILY@0600 [facility] Last Admin: 04/06/18 05:00 Dose: 125 mcg Lisinopril (Prinivil) 5 mg PO DAILY [facility] Last Admin: 04/05/18 13:07 Dose: 5 mg Magnesium Oxide (Mag-Ox) 800 mg PO UNSCH PRN PRN Reason: For Magnesium 1.2 - 1.6 mg/dL Metoclopramide HCl (Reglan Inj) 5 mg IV.PUSH Q8HR [facility]; Protocol Stop: 04/10/18 13:59 Last Admin: 04/06/18 05:00 Dose: 5 mg Metoprolol Tartrate (Lopressor) 12.5 mg PO BID [facility] Last Admin: 04/05/18 21:27 Dose: 12.5 mg Miscellaneous Medication () 1 each OROPHARYNG 0000,0400,1200,1600 [facility] Last Admin: 04/06/18 04:53 Dose: 1 each Ondansetron HCl (Zofran Inj) 4 mg IV.PUSH Q6H PRN PRN Reason: NAUSEA OR VOMITING Polyethylene Glycol (Miralax) 17 gm PO BID [facility] Last Admin: 04/05/18 21:28 Dose: Not Given Potassium Chloride (Kcl Liq) 40 meq PO UNSCH PRN PRN Reason: Potassium level 3.3-3.5 mEq/L Potassium Chloride (Kcl Liq) 40 meq PO UNSCH PRN PRN Reason: Potassium level 3.3-3.5 mEq/L Potassium Phosphate (K-Phos Original) 2,000 mg PO Q4H PRN PRN Reason: Phosphorus Less Than 2.5 mg/dL Potassium Phosphate (K-Phos Original) 2,000 mg PO UNSCH PRN PRN Reason: SEE LABEL COMMENTS Pravastatin Sodium (Pravachol) 40 mg PO HS [facility] Last Admin: 04/05/18 21:27 Dose: 40 mg Senna/Docusate Sodium (Celine-Colace) 1 tab PO BID [facility] Last Admin: 04/05/18 21:28 Dose: Not Given Sodium Chloride (Ns Flush) 2 ml IV.FLUSH BID [facility] Last Admin: 04/05/18 21:28 Dose: 2 ml Sodium Chloride (Ns Flush) 2 ml IV.FLUSH PRN PRN PRN Reason: FLUSH AFTER USING IV ACCESS Sterile Water (Free Water) 100 ml G-TUBE Q8HR [facility] Last Admin: 04/06/18 05:00 Dose: 100 ml Terbutaline Sulfate (Brethine Inj) 1 mg SQ UNSCH PRN PRN Reason: For Extravasation Allergies Allergy/AdvReac Type Severity Reaction Status Date / Time Sulfa (Sulfonamide Allergy Severe Nausea Verified 02/15/18 05:02 Antibiotics) Home Medications Medication Instructions Recorded Confirmed Type aspirin 81 mg PO DAILY 02/08/18 03/31/18 History levothyroxine 125 mcg PO DAILY 02/08/18 03/31/18 History pantoprazole [Protonix] 40 mg PO DAILY 02/08/18 03/31/18 History pravastatin 40 mg PO HS 02/08/18 03/31/18 History amlodipine [Norvasc] 10 mg PO DAILY 03/31/18 03/31/18 History ranitidine HCl [Zantac] 150 mg PO DAILY 03/31/18 03/31/18 History Exam Vital signs: Vital Signs 04/05/18 08:00 04/05/18 08:06 04/05/18 08:59 Temperature Pulse Rate 70 Respiratory Rate 16 Blood Pressure 97/52 L Pulse Oximetry 98 99 04/05/18 09:00 04/05/18 09:25 04/05/18 09:59 Temperature 99.0 F 99.0 F 98.8 F Pulse Rate 70 68 70 Respiratory Rate 16 16 16 Blood Pressure 101/55 L 122/67 Pulse Oximetry 97 97 98 04/05/18 10:00 04/05/18 10:59 04/05/18 11:00 Temperature 98.8 F 99.1 F 99.1 F Pulse Rate 69 103 H 105 H Respiratory Rate 16 16 16 Blood Pressure 178/95 H Pulse Oximetry 98 97 97 04/05/18 11:36 04/05/18 11:43 04/05/18 11:59 Temperature 99.1 F Pulse Rate 97 H 89 Respiratory Rate 16 16 16 Blood Pressure 146/77 H Pulse Oximetry 96 95 04/05/18 12:00 04/05/18 13:00 04/05/18 13:12 Temperature 99.1 F 99.1 F 99.3 F Pulse Rate 90 129 H 110 H Respiratory Rate 16 20 16 Blood Pressure 159/81 H Pulse Oximetry 95 95 95 04/05/18 13:43 04/05/18 13:59 04/05/18 14:00 Temperature 99.3 F 99.3 F 99.3 F Pulse Rate 71 64 64 Respiratory Rate 16 16 16 Blood Pressure 85/53 L 72/46 L 72/51 L Pulse Oximetry 95 95 04/05/18 14:07 04/05/18 14:10 04/05/18 14:18 Temperature 99.3 F 99.3 F 99.3 F Pulse Rate 63 64 91 H Respiratory Rate 16 16 17 Blood Pressure 71/51 L Pulse Oximetry 95 96 97 04/05/18 14:23 04/05/18 14:59 04/05/18 15:00 Temperature 99.3 F 99.0 F 99.0 F Pulse Rate 85 100 H 98 H Respiratory Rate 16 17 19 Blood Pressure 139/74 Pulse Oximetry 97 97 96 04/05/18 15:22 04/05/18 15:45 04/05/18 15:59 Temperature 99.0 F 99.0 F Pulse Rate 92 H 116 H Respiratory Rate 16 11 L 23 Blood Pressure 165/94 H Pulse Oximetry 96 94 L 95 04/05/18 16:00 04/05/18 16:47 04/05/18 16:59 Temperature 99.0 F 99.1 F 99.1 F Pulse Rate 116 H 129 H 127 H Respiratory Rate 25 H 23 20 Blood Pressure 191/98 H Pulse Oximetry 94 L 89 L 90 L 04/05/18 17:00 04/05/18 17:10 04/05/18 17:17 Temperature 99.1 F 99.1 F Pulse Rate 134 H 108 H Respiratory Rate 23 16 16 Blood Pressure 106/64 Pulse Oximetry 95 96 96 04/05/18 17:59 04/05/18 18:00 04/05/18 19:00 Temperature 98.8 F 98.8 F Pulse Rate 107 H 108 H 109 H Respiratory Rate 16 16 16 Blood Pressure 150/86 H Pulse Oximetry 93 L 93 L 95 04/05/18 19:59 04/05/18 20:00 04/05/18 20:04 Temperature 99.0 F Pulse Rate 143 H 142 H 140 H Respiratory Rate 25 H 32 H 23 Blood Pressure Pulse Oximetry 97 96 96 04/05/18 20:09 04/05/18 20:10 04/05/18 20:15 Temperature 99.1 F Pulse Rate 114 H 120 H Respiratory Rate 16 17 Blood Pressure 214/107 H Pulse Oximetry 97 96 97 04/05/18 20:25 04/05/18 20:31 04/05/18 20:50 Temperature Pulse Rate 101 H 92 H 97 H Respiratory Rate 16 16 16 Blood Pressure 151/83 H 163/108 H Pulse Oximetry 96 95 04/05/18 21:00 04/05/18 21:06 04/05/18 21:51 Temperature Pulse Rate 87 86 74 Respiratory Rate 16 16 16 Blood Pressure 108/66 106/63 Pulse Oximetry 97 97 97 04/05/18 22:00 04/05/18 22:06 04/05/18 23:00 Temperature Pulse Rate 77 71 82 Respiratory Rate 16 16 16 Blood Pressure 101/60 Pulse Oximetry 97 97 98 04/05/18 23:06 04/05/18 23:19 04/05/18 23:29 Temperature Pulse Rate 92 H 74 70 Respiratory Rate 17 16 16 Blood Pressure 104/61 Pulse Oximetry 98 98 99 04/05/18 23:31 04/05/18 23:43 04/05/18 23:47 Temperature Pulse Rate 67 66 70 Respiratory Rate 16 16 16 Blood Pressure 97/56 L 93/55 L Pulse Oximetry 98 99 99 04/05/18 23:54 04/06/18 00:00 04/06/18 00:05 Temperature 99.3 F Pulse Rate 79 78 80 Respiratory Rate 16 16 Blood Pressure 139/80 Pulse Oximetry 99 99 04/06/18 00:24 04/06/18 00:54 04/06/18 01:00 Temperature Pulse Rate 84 97 H 87 Respiratory Rate 16 16 16 Blood Pressure 166/86 H Pulse Oximetry 98 98 97 04/06/18 01:02 04/06/18 01:24 04/06/18 01:54 Temperature Pulse Rate 87 81 80 Respiratory Rate 16 16 16 Blood Pressure 145/76 H 137/81 147/89 H Pulse Oximetry 97 96 97 04/06/18 02:00 04/06/18 02:24 04/06/18 03:00 Temperature Pulse Rate 80 80 77 Respiratory Rate 16 16 16 Blood Pressure 127/76 Pulse Oximetry 96 96 96 04/06/18 03:06 04/06/18 03:16 04/06/18 03:19 Temperature Pulse Rate 89 85 75 Respiratory Rate 16 16 16 Blood Pressure 148/82 H Pulse Oximetry 97 97 04/06/18 03:50 04/06/18 04:00 04/06/18 04:06 Temperature 98.6 F Pulse Rate 77 77 Respiratory Rate 16 16 16 Blood Pressure 155/89 H Pulse Oximetry 96 96 97 04/06/18 04:15 04/06/18 04:50 04/06/18 05:00 Temperature Pulse Rate 86 80 93 H Respiratory Rate 16 16 Blood Pressure 113/65 Pulse Oximetry 95 96 04/06/18 05:06 04/06/18 06:00 04/06/18 06:06 Temperature Pulse Rate 90 86 78 Respiratory Rate 16 16 16 Blood Pressure 153/91 H 118/73 Pulse Oximetry 95 95 95 04/06/18 07:00 Temperature Pulse Rate 67 Respiratory Rate 16 Blood Pressure Pulse Oximetry 95 Intake & Output 04/05/18 04/06/18 04/06/18 18:59 06:59 18:59 Intake Total 2551 / 2551 1882.3 / 1882.3 Output Total 1450 / 1450 1100 / 1100 Balance 1101 / 1101 782.3 / 782.3 Weight 185 lb 10.067 oz Intake: IV 2099 / 2099 1424.3 / 1424.3 Precedex Inj 200 MCG In NS Inj 50 / 50 228.2 / 228.2 48 ML @ 0.2 MCG/KG/HR 4.31 mls/ hr IV.CONT TITRATE PRN Rx#: [id number] Diprivan 1000 mg/100 ml Inj 1, 100 / 100 147.1 / 147.1 000 mg In 100 ml @ 5 MCG/KG/MIN 2.547 mls/hr IV.CONT TITRATE PRN Rx#:[id number] NS Inj 1,000 ML @ 30 mls/hr IV. 1000 / 1000 615 / 615 CONT .Q24H JE Rx#:[id number] KCl 40 mEq Premix Inj 40 meq In 100 / 100 100 ml @ 25 mls/hr IV.SIG UNSCH PRN Rx#:[id number] NS Inj 500 ML @ Wide Open IV. 500 / 500 SIG BOLUS ONE Rx#:[id number] Rocephin Inj 2,000 MG In NS Inj 100 / 100 100 ML @ 200 mls/hr IV.SIG Q24H JE Rx#:[id number] fentaNYL 10 mcg/mL Premix Drip 250 / 250 434 / 434 2,500 mcg In 250 ml @ 50 MCG/HR 5 mls/hr IV.SIG TITRATE PRN Rx #:[id number] Tube Feeding 251 / 251 358 / 358 Tube Irrigant 200 / 200 100 / 100 Output: Urine Amount (Catheter) 1450 / 1450 1100 / 1100 Indwelling Urethral Catheter 1450 / 1450 1100 / 1100 Other: Date of Last Bowel Movement 04/05/18 04/05/18 # Incontinent Bowel Movements 3 Narrative: GENERAL: Well-developed well-nourished. In no acute distress. NECK: No carotid bruits. No JVD. CARDIOVASCULAR: Regular rate and rhythm. No murmur appreciated. RESPIRATORY: Mechanically ventilated. Clear to auscultation. Breath sounds equal bilaterally. MUSCULOSKELETAL: No clubbing or cyanosis. No edema. NEUROLOGICAL: Sedated and somnolent, but does awaken and shake her head appropriately to questions. Results 04/06/18 03:30 04/06/18 03:30 Cardiac Enzymes 04/05/18 04/06/18 Range/Units 04:25 03:30 AST 19 29 (15-37) U/L CBC 04/05/18 04/06/18 Range/Units 04:25 03:30 WBC 10.2 10.0 (4.0-11.0) th/mm3 RBC 3.82 L 3.85 L (4.50-5.90) mil/mm3 Hgb 11.9 L 11.9 L (13.0-17.0) gm/dL Hct 35.5 L 35.1 L (39.0-51.0) % Plt Count 279 292 (150-450) th/mm3 Neut # (Auto) 8.0 H 8.6 H (1.8-7.7) th/mm3 Lymph # (Auto) 0.8 L 0.5 L (1.0-4.8) th/mm3 Cobb # (Auto) 1.2 H 0.9 (0.0-0.9) th/mm3 Eos # (Auto) 0.1 0.0 (0.0-0.4) th/mm3 Baso # (Auto) 0.0 0.0 (0.0-0.2) th/mm3 Comprehensive Metabolic Panel 04/05/18 04/06/18 Range/Units 04:25 03:30 Sodium 148 H 149 H (136-145) meq/L Potassium 3.3 L 3.2 L (3.5-5.1) meq/L Chloride 114 H 114 H (98-107) meq/L Carbon Dioxide 28.3 28.2 (21.0-32.0) meq/L BUN 14 15 (7-18) mg/dL Creatinine 0.98 0.81 (0.60-1.30) mg/dL Calcium 8.7 8.3 L (8.5-10.1) mg/dL AST 19 29 (15-37) U/L ALT 32 45 (12-78) U/L Alkaline Phosphatase 69 73 (45-117) U/L Total Protein 7.0 6.6 (6.4-8.2) g/dL Albumin 3.5 D 3.1 L (3.4-5.0) g/dL Intake and Output 04/05/18 04/06/18 04/06/18 22:59 06:59 14:59 Intake Total 1668.0 / 1668.0 1315.3 / 1315.3 Output Total 1450 / 1450 1100 / 1100 Balance 218.0 / 218.0 215.3 / 215.3 Intake: IV 1217.0 / 1217.0 857.3 / 857.3 Precedex Inj 200 MCG In NS Inj 100.0 / 100.0 178.2 / 178.2 48 ML @ 0.2 MCG/KG/HR 4.31 mls/ hr IV.CONT TITRATE PRN Rx#: [id number] Diprivan 1000 mg/100 ml Inj 1, 100 / 100 47.1 / 47.1 000 mg In 100 ml @ 5 MCG/KG/MIN 2.547 mls/hr IV.CONT TITRATE PRN Rx#:[id number] NS Inj 1,000 ML @ 30 mls/hr IV. 294 / 294 321 / 321 CONT .Q24H JE Rx#:[id number] NS Inj 500 ML @ Wide Open IV. 500 / 500 SIG BOLUS ONE Rx#:[id number] Rocephin Inj 2,000 MG In NS Inj 100 / 100 100 ML @ 200 mls/hr IV.SIG Q24H JE Rx#:[id number] fentaNYL 10 mcg/mL Premix Drip 123 / 123 311 / 311 2,500 mcg In 250 ml @ 50 MCG/HR 5 mls/hr IV.SIG TITRATE PRN Rx #:[id number] Tube Feeding 251 / 251 358 / 358 Tube Irrigant 200 / 200 100 / 100 Output: Urine Amount (Catheter) 1450 / 1450 1100 / 1100 Indwelling Urethral Catheter 1450 / 1450 1100 / 1100 Other: Date of Last Bowel Movement 04/05/18 04/05/18 # Incontinent Bowel Movements 3 Weight 185 lb 10.067 oz - Imaging and Cardiology Imaging: Impressions Chest X-Ray 04/04/18 00:00 CONCLUSION: Stable chest. Persistent bibasilar patchy opacities. Chest X-Ray 04/06/18 06:00 CONCLUSION: Some improvement in the bibasilar consolidations. Assessment and Plan - Plan 67-year-old male with HTN, HLD, GERD, hypothyroidism who presented for respiratory failure Cardiomyopathy?: Inpatient echocardiogram very poor study, possibly new mild decrease in ejection fraction, however no stigmata of CHF and echo 1 month ago with better quality imaging was normal. Low-dose GLORIA inhibitor started. No further cardiac workup/treatment indicated. Respiratory failure: Continue to suspect primary neurogenic cause, workup in progress. Discussed at length with the family at bedside. Nothing further to add from a cardiac perspective at this time, please call with questions. Discussed Condition With: Patient seen and examined with Dr. Escobedo.
[2018-04-06] MEDS: Famotidine PF Inj 20 MG/2 ML Vial IV.PUSH SCH ×2 (09:17→21:35)
[2018-04-06] MEDS: Lisinopril 5 MG Tablet PO SCH (09:17)
[2018-04-06] MEDS: Senna/Docusate Sodium 8.6/50 MG Tablet PO SCH ×2 (09:17→21:35)
[2018-04-06] MEDS: Metoprolol Tartrate 25 MG Tablet PO SCH ×2 (09:17→21:35)
[2018-04-06] MEDS: amLODIPine 10 MG Tablet PO SCH (09:17)
[2018-04-06] MEDS: Polyethylene Glycol 3350 17 GM Packet PO SCH ×2 (09:19→21:37)
[2018-04-06] MEDS: Chlorhexidine 0.12% Oral Kit 15 ML UDC OROPHARYNG SCH ×2 (09:20→21:34)
[2018-04-06 10:10] LABS: ABG Base Excess 1.5 mmol/L (-2-2); ABG PCO2 52 mmHg (38-42); ABG PO2 105 mmHg (61-120)
[2018-04-06] MEDS: Dexmedetomidine Inj 1,000 MCG in Sodium Chlor 0.9% Inj 240 ML IV.CONT PRN (11:58)
[2018-04-06] MEDS: Enoxaparin Inj 40 MG/0.4 ML Syringe SQ SCH (12:07)
--- NOTE | 2018-04-06 18:09 | P.PN ---
Subjective Interval history: Remains on ventilator support.. FiO2 at 30% and failed CPAP trial. Off sedation and opens eyes and follows commands. Hemodynamics are stable and ABGs are adequate. Family at bedside Chest x-ray shows improved consolidation at bases. Physical Exam Vital signs: Vital Signs 04/05/18 19:00 04/05/18 19:59 04/05/18 20:00 Temperature 99.0 F Pulse Rate 109 H 143 H 142 H Respiratory Rate 16 25 H 32 H Blood Pressure Pulse Oximetry 95 97 96 04/05/18 20:04 04/05/18 20:09 04/05/18 20:10 Temperature 99.1 F Pulse Rate 140 H 114 H Respiratory Rate 23 16 17 Blood Pressure 214/107 H Pulse Oximetry 96 97 96 04/05/18 20:15 04/05/18 20:25 04/05/18 20:31 Temperature Pulse Rate 120 H 101 H 92 H Respiratory Rate 16 16 Blood Pressure 151/83 H 163/108 H Pulse Oximetry 97 96 95 04/05/18 20:50 04/05/18 21:00 04/05/18 21:06 Temperature Pulse Rate 97 H 87 86 Respiratory Rate 16 16 16 Blood Pressure 108/66 Pulse Oximetry 97 97 04/05/18 21:51 04/05/18 22:00 04/05/18 22:06 Temperature Pulse Rate 74 77 71 Respiratory Rate 16 16 16 Blood Pressure 106/63 101/60 Pulse Oximetry 97 97 97 04/05/18 23:00 04/05/18 23:06 04/05/18 23:19 Temperature Pulse Rate 82 92 H 74 Respiratory Rate 16 17 16 Blood Pressure 104/61 Pulse Oximetry 98 98 98 04/05/18 23:29 04/05/18 23:31 04/05/18 23:43 Temperature Pulse Rate 70 67 66 Respiratory Rate 16 16 16 Blood Pressure 97/56 L Pulse Oximetry 99 98 99 04/05/18 23:47 04/05/18 23:54 04/06/18 00:00 Temperature 99.3 F Pulse Rate 70 79 78 Respiratory Rate 16 16 16 Blood Pressure 93/55 L 139/80 Pulse Oximetry 99 99 99 04/06/18 00:05 04/06/18 00:24 04/06/18 00:54 Temperature Pulse Rate 80 84 97 H Respiratory Rate 16 16 Blood Pressure 166/86 H Pulse Oximetry 98 98 04/06/18 01:00 04/06/18 01:02 04/06/18 01:24 Temperature Pulse Rate 87 87 81 Respiratory Rate 16 16 16 Blood Pressure 145/76 H 137/81 Pulse Oximetry 97 97 96 04/06/18 01:54 04/06/18 02:00 04/06/18 02:24 Temperature Pulse Rate 80 80 80 Respiratory Rate 16 16 16 Blood Pressure 147/89 H 127/76 Pulse Oximetry 97 96 96 04/06/18 03:00 04/06/18 03:06 04/06/18 03:16 Temperature Pulse Rate 77 89 85 Respiratory Rate 16 16 16 Blood Pressure 148/82 H Pulse Oximetry 96 97 97 04/06/18 03:19 04/06/18 03:50 04/06/18 04:00 Temperature 98.6 F Pulse Rate 75 77 Respiratory Rate 16 16 16 Blood Pressure Pulse Oximetry 96 96 04/06/18 04:06 04/06/18 04:15 04/06/18 04:50 Temperature Pulse Rate 77 86 80 Respiratory Rate 16 16 Blood Pressure 155/89 H 113/65 Pulse Oximetry 97 95 04/06/18 05:00 04/06/18 05:06 04/06/18 06:00 Temperature Pulse Rate 93 H 90 86 Respiratory Rate 16 16 16 Blood Pressure 153/91 H Pulse Oximetry 96 95 95 04/06/18 06:06 04/06/18 07:00 04/06/18 07:06 Temperature 99.1 F Pulse Rate 78 67 80 Respiratory Rate 16 16 17 Blood Pressure 118/73 121/79 Pulse Oximetry 95 95 96 04/06/18 08:00 04/06/18 08:06 04/06/18 08:23 Temperature 99.0 F 99.0 F Pulse Rate 88 82 106 H Respiratory Rate 21 16 14 Blood Pressure 123/75 Pulse Oximetry 96 95 95 04/06/18 09:00 04/06/18 09:10 04/06/18 09:40 Temperature 97.0 F L 98.2 F 98.2 F Pulse Rate 119 H 115 H 107 H Respiratory Rate 25 H 24 18 Blood Pressure 195/99 H 176/89 H Pulse Oximetry 96 96 04/06/18 10:00 04/06/18 10:06 04/06/18 10:23 Temperature 98.1 F 98.1 F 98.1 F Pulse Rate 100 H 99 H 95 H Respiratory Rate 19 17 19 Blood Pressure 183/92 H 172/87 H Pulse Oximetry 96 96 95 04/06/18 10:25 04/06/18 11:00 04/06/18 11:06 Temperature 98.1 F 98.1 F 98.1 F Pulse Rate 95 H 94 H 94 H Respiratory Rate 18 17 16 Blood Pressure 172/87 H 160/83 H Pulse Oximetry 95 95 95 04/06/18 12:00 04/06/18 12:37 04/06/18 14:00 Temperature Pulse Rate 88 89 78 Respiratory Rate 12 Blood Pressure Pulse Oximetry 97 04/06/18 17:32 04/06/18 17:34 Temperature Pulse Rate 87 Respiratory Rate 15 13 Blood Pressure Pulse Oximetry 98 Intake & Output 04/05/18 04/06/18 04/06/18 18:59 06:59 18:59 Intake Total 2551 / 2551 1882.3 / 1882.3 100 / 100 Output Total 1450 / 1450 1100 / 1100 Balance 1101 / 1101 782.3 / 782.3 100 / 100 Weight 84.2 kg Intake: IV 2100 / 2100 1424.3 / 1424.3 100 / 100 Precedex Inj 200 MCG In NS Inj 50 / 50 228.2 / 228.2 48 ML @ 0.2 MCG/KG/HR 4.31 mls/ hr IV.CONT TITRATE PRN Rx#: [id number] Diprivan 1000 mg/100 ml Inj 1, 100 / 100 147.1 / 147.1 000 mg In 100 ml @ 5 MCG/KG/MIN 2.547 mls/hr IV.CONT TITRATE PRN Rx#:[id number] NS Inj 1,000 ML @ 30 mls/hr IV. 1000 / 1000 615 / 615 CONT .Q24H GIGI Rx#:[id number] KCl 40 mEq Premix Inj 40 meq In 100 / 100 100 / 100 100 ml @ 25 mls/hr IV.SIG Q2H PRN Rx#:[id number] NS Inj 500 ML @ Wide Open IV. 500 / 500 SIG BOLUS ONE Rx#:[id number] Rocephin Inj 2,000 MG In NS Inj 100 / 100 100 ML @ 200 mls/hr IV.SIG Q24H GIGI Rx#:[id number] fentaNYL 10 mcg/mL Premix Drip 250 / 250 434 / 434 2,500 mcg In 250 ml @ 50 MCG/HR 5 mls/hr IV.SIG TITRATE PRN Rx #:[id number] Tube Feeding 251 / 251 358 / 358 Tube Irrigant 200 / 200 100 / 100 Output: Urine Amount (Catheter) 1450 / 1450 1100 / 1100 Indwelling Urethral Catheter 1450 / 1450 1100 / 1100 Other: Date of Last Bowel Movement 04/05/18 04/05/18 04/05/18 # Incontinent Bowel Movements 3 Narrative: GENERAL: Well-developed well-nourished. Elderly white male intubated and on ventilator support NECK: No carotid bruits. No JVD. HEENT: Unremarkable CARDIOVASCULAR: Regular rate and rhythm. No murmur appreciated. RESPIRATORY: Clear to auscultation. Breath sounds equal bilaterally. Diminished at the bases. MUSCULOSKELETAL: No clubbing or cyanosis. No edema. NEUROLOGICAL: Sedated and somnolent, but does awaken and shake her head appropriately to questions. - Urinary Catheter Management Indwelling Urethral Catheter Cath placed during this visit: yes Reason for continuing: Hourly intake/output Insertion date: 03/31/18 Insertion time: 18:00 Results - Labs CBC & Chem 7: 04/06/18 03:30 04/06/18 03:30 Laboratory Results - last 24 hr 04/06/18 04/06/18 04/06/18 03:30 03:30 03:30 WBC 10.0 RBC 3.85 L Hgb 11.9 L Hct 35.1 L MCV 91.0 MCH 31.0 MCHC 34.0 RDW 14.4 Plt Count 292 MPV 7.7 Neut % (Auto) 85.8 H Lymph % (Auto) 4.7 L [place] % (Auto) 9.0 H Eos % (Auto) 0.3 Baso % (Auto) 0.2 Neut # (Auto) 8.6 H Lymph # (Auto) 0.5 L [place] # (Auto) 0.9 Eos # (Auto) 0.0 Baso # (Auto) 0.0 WBC Differential . Differential Comment Auto diff final Puncture Site Patient Temperature O2 Saturation ABG pH ABG pCO2 ABG pO2 ABG HCO3 ABG O2 Content ABG Base Excess ABG Methemoglobin David Test Hemoglobin Carboxyhemoglobin O2 Delivery Device Vent Setting Inspired O2 Critical Value Sodium 149 H Potassium 3.2 L Chloride 114 H Carbon Dioxide 28.2 Anion Gap 7 BUN 15 Creatinine 0.81 Estimated GFR Greater than 89 Random Glucose 132 H Calcium 8.3 L Phosphorus 3.1 D Magnesium 2.6 H Total Bilirubin 0.5 AST 29 ALT 45 Alkaline Phosphatase 73 Ammonia 29 Total Protein 6.6 Albumin 3.1 L 04/06/18 09:57 WBC RBC Hgb Hct MCV MCH MCHC RDW Plt Count MPV Neut % (Auto) Lymph % (Auto) [place] % (Auto) Eos % (Auto) Baso % (Auto) Neut # (Auto) Lymph # (Auto) [place] # (Auto) Eos # (Auto) Baso # (Auto) WBC Differential Differential Comment Puncture Site Right radial Patient Temperature 98.6 O2 Saturation 96 ABG pH 7.33 L ABG pCO2 52 H* ABG pO2 105 ABG HCO3 27 H ABG O2 Content 17.5 ABG Base Excess 1.5 ABG Methemoglobin 1.2 David Test Present Hemoglobin 13.0 Carboxyhemoglobin 0.7 O2 Delivery Device Ventilator Vent Setting 14/+5 Inspired O2 35 Critical Value Yes Sodium Potassium Chloride Carbon Dioxide Anion Gap BUN Creatinine Estimated GFR Random Glucose Calcium Phosphorus Magnesium Total Bilirubin AST ALT Alkaline Phosphatase Ammonia Total Protein Albumin - Imaging Impressions Chest X-Ray 04/06/18 06:00 CONCLUSION: Some improvement in the bibasilar consolidations. Assessment and Plan - Assessment (1) Respiratory failure Code(s): J96.90 - Respiratory failure, unspecified, unspecified whether with hypoxia or hypercapnia Status: Acute (2) Atelectasis Code(s): J98.11 - Atelectasis Status: Acute (3) Neck pain, chronic Code(s): M54.2 - Cervicalgia; G89.29 - Other chronic pain Status: Chronic (4) Other cervical disc degeneration at C5-C6 level Code(s): M50.322 - Other cervical disc degeneration at C5-C6 level Status: Chronic (5) Protrusion of cervical intervertebral disc Code(s): M50.20 - Other cervical disc displacement, unspecified cervical region Status: Chronic (6) Adult failure to thrive Code(s): R62.7 - Adult failure to thrive Status: Acute (7) Shortness of breath Code(s): R06.02 - Shortness of breath Status: Acute (8) Weakness generalized Code(s): R53.1 - Weakness Status: Acute (9) Acute hyponatremia Code(s): E87.1 - Hypo-osmolality and hyponatremia Status: Acute (10) Ventilator dependent Code(s): Z99.11 - Dependence on respirator [ventilator] status Status: Acute - Plan #1 wean vent to CPAP 5/10 and FiO2 35%. #2 respiratory parameters and ABGs 3. Continue tube feeds at 40 cc/h 4. DuoNeb nebs every 6 hours as needed 5. Stop sedation 6. Tracheal lavage and suction as needed 7. Continue Lovenox 40 mg subcu daily 8. Continue Rocephin 2 g IV daily 9. CBC BMP chest x-ray in a.m.
[2018-04-07] MEDS: Dexmedetomidine Inj 1,000 MCG in Sodium Chlor 0.9% Inj 240 ML IV.CONT PRN ×3 (00:32→16:29)
[2018-04-07] MEDS: Oral Hygiene Kit OROPHARYNG SCH ×4 (00:34→16:30)
[2018-04-07 04:31] LABS: Baso % (Auto) 0.3 % (0.0-2.0); Eos % (Auto) 0.2 % (0.0-4.0); Hematocrit 35.5 % (39.0-51.0); Hemoglobin 11.8 gm/dL (13.0-17.0); Lymph # (Auto) 0.4 th/mm3 (1.0-4.8); Lymph % (Auto) 3.9 % (9.0-44.0); Mean Corpuscular HGB Conc 33.3 % (32.0-36.0); Mean Corpuscular Hemoglobin 31.4 pg (27.0-34.0); Mean Corpuscular Volume 94.3 fL (80.0-100.0); Mono % (Auto) 9.2 % (0.0-8.0); Neut # (Auto) 9.4 th/mm3 (1.8-7.7); Neut % (Auto) 86.4 % (16.0-70.0); Platelet Count 323 th/mm3 (150-450); Red Blood Count 3.77 mil/mm3 (4.50-5.90); White Blood Count 10.9 th/mm3 (4.0-11.0)
[2018-04-07 04:58] LABS: Alanine Aminotransferase 140 U/L (12-78); Albumin 3.1 g/dL (3.4-5.0); Anion Gap 8 meq/L (5-15); Aspartate Aminotransferase 77 U/L (15-37); Blood Urea Nitrogen 25 mg/dL (7-18); Calcium 8.5 mg/dL (8.5-10.1); Carbon Dioxide 29.3 meq/L (21.0-32.0); Chloride 115 meq/L (98-107); Glomerular Filtration Rate 75 mL/min (>89); Glucose,Random 137 mg/dL (74-106); Magnesium 2.9 mg/dL (1.5-2.5); Phosphorus 3.7 mg/dL (2.5-4.9); Potassium 3.8 meq/L (3.5-5.1); Sodium 152 meq/L (136-145)
[2018-04-07 05:00] LABS: Alkaline Phosphatase 72 U/L (45-117); Total Protein 6.5 g/dL (6.4-8.2)
--- NOTE | 2018-04-07 05:17 | XR ---
EXAM DATE: 04/07/2018 5:02 AM EST AGE/SEX: 67 years / Male INDICATIONS: Respiratory failure, failure to thrive. CLINICAL DATA: This is the patient's subsequent encounter. Patient reports that signs and symptoms h ave been present for 1 week and indicates a pain score of Nonresponsive. MEDICAL/SURGICAL HISTORY: . Thyroid disease . . Microdiscectomy. Left inguinal hernia repair. COMPARISON: [facility] – [place], CHEST 1V SINGLE AP, 04/06/2018. . FINDINGS: A single AP view of the chest demonstrates the endotracheal tube and left subclavian central line are both in good position. Nasogastric tube enters the stomach. Lungs are grossly clear.. CONCLUSION: ET tube in good position. Lungs are grossly clear. Electronically signed by: Darren Venegas MD Board Certified Radiologist 04/07/2018 5:16 AM EST
[2018-04-07] MEDS: Levothyroxine 125 MCG Tablet PO SCH (05:24)
[2018-04-07] MEDS: Chlorhexidine 0.12% Oral Kit 15 ML UDC OROPHARYNG SCH ×2 (08:46→20:29)
[2018-04-07] MEDS: Polyethylene Glycol 3350 17 GM Packet PO SCH ×2 (08:47→20:29)
[2018-04-07] MEDS: Famotidine PF Inj 20 MG/2 ML Vial IV.PUSH SCH ×2 (08:48→20:27)
[2018-04-07] MEDS: Enoxaparin Inj 40 MG/0.4 ML Syringe SQ SCH (08:48)
[2018-04-07] MEDS: Senna/Docusate Sodium 8.6/50 MG Tablet PO SCH ×2 (08:49→20:27)
[2018-04-07] MEDS: Metoprolol Tartrate 25 MG Tablet PO SCH ×2 (08:50→20:28)
[2018-04-07] MEDS: Artificial Tears Opth Drops 15 ML Bottle EACH EYE SCH ×3 (08:56→16:32)
[2018-04-07] MEDS: amLODIPine 10 MG Tablet PO SCH (10:16)
--- NOTE | 2018-04-07 10:29 | P.PNNEU ---
Subjective Active Medications: Active Medications Acetaminophen (Tylenol) 650 mg PO Q4H PRN PRN Reason: Temp > 100.4 Last Admin: 04/01/18 15:53 Dose: 650 mg Al Hydroxide/Mg Hydroxide (Milk Of Magnjacque Liq) 30 ml PO Q12H PRN PRN Reason: Mild Constipation Last Admin: 04/05/18 05:18 Dose: 30 ml Albuterol (Duoneb Neb (Gigi)) 1 ampul NEB Q4HR NEB [facility] Last Admin: 04/07/18 08:23 Dose: 1 ampul Albuterol (Albuterol Neb (Prn)) 2.5 mg NEB Q2HR NEB PRN PRN Reason: DYSPNEA Amlodipine Besylate (Norvasc) 10 mg PO DAILY [facility] Last Admin: 04/07/18 10:16 Dose: 10 mg Artificial Tears (Tears Naturale Opth Drops) 1 drop EACH EYE Q8H [facility] Last Admin: 04/07/18 08:56 Dose: 1 drop Aspirin (Ecotrin) 81 mg PO DAILY [facility] Last Admin: 04/07/18 08:49 Dose: 81 mg Chlorhexidine Gluconate (Peridex 0.12% Oral Kit) 15 ml OROPHARYNG BID@0800, 2000 [facility] Last Admin: 04/07/18 08:46 Dose: 15 ml Clonidine HCl (Catapres) 0.1 mg PO Q12HR [facility] Last Admin: 04/06/18 21:34 Dose: Not Given Enoxaparin Sodium (Lovenox Inj) 40 mg SQ DAILY [facility] Last Admin: 04/07/18 08:48 Dose: 40 mg Famotidine (Pepcid Pf Inj) 20 mg IV.PUSH Q12HR [facility] Last Admin: 04/07/18 08:48 Dose: 20 mg Sodium Chloride (Ns Inj) 1,000 mls @ 30 mls/hr IV.CONT .Q24H [facility] Last Infusion: 04/06/18 21:37 Dose: 30 mls/hr Fentanyl (Fentanyl 10 Mcg/Ml Premix Drip) 2,500 mcg in 250 mls @ 5 mls/hr IV.SIG TITRATE PRN; Protocol PRN Reason: Per Protocol Last Titration: 04/06/18 10:50 Dose: 50 mcg/hr, 5 mls/hr Midazolam HCl (Versed Inj) 100 mg in 100 mls @ 2 mls/hr IV.CONT TITRATE PRN; Protocol PRN Reason: See protocol Last Titration: 04/03/18 12:16 Dose: Infused Magnesium Sulfate 4 gm/ Sodium (Chloride) 100 mls @ 50 mls/hr IV.SIG UNSCH PRN PRN Reason: For Magnesium 0.9 - 1.1 mg/dL Magnesium Sulfate 2 gm/ Sodium (Chloride) 100 mls @ 50 mls/hr IV.SIG UNSCH PRN PRN Reason: For Magnesium 1.2 - 1.6 mg/dL Potassium Chloride (Kcl 40 Meq Premix Inj) 40 meq in 100 mls @ 25 mls/hr IV.SIG Q2H PRN PRN Reason: For Potassium 2.8 - 3.2 mEq/L Last Admin: 04/06/18 09:21 Dose: 25 mls/hr Potassium Chloride (Kcl 20 Meq Premix Inj) 20 meq in 100 mls @ 50 mls/hr IV.SIG Q2H PRN PRN Reason: For Potassium 3.3 - 3.5 mEq/L Potassium Chloride (Kcl 20 Meq Premix Inj) 20 meq in 100 mls @ 50 mls/hr IV.SIG Q2H PRN PRN Reason: For Potassium 2.8 - 3.2 mEq/L Potassium Phosphate 30 mmol/ (Sodium Chloride) 260 mls @ 42 mls/hr IV.SIG UNSCH PRN PRN Reason: SEE LABEL COMMENTS Sodium Phosphate 30 mmol/ (Sodium Chloride) 260 mls @ 42 mls/hr IV.SIG UNSCH PRN PRN Reason: For Phosphorus < 2.5 mg/dL Potassium Chloride (Kcl 40 Meq Premix Inj) 40 meq in 100 mls @ 25 mls/hr IV.SIG UNSCH PRN PRN Reason: For Potassium 3.3 - 3.5 mEq/L Last Infusion: 04/05/18 11:20 Dose: Infused Ceftriaxone Sodium 2,000 mg/ (Sodium Chloride) 100 mls @ 200 mls/hr IV.SIG Q24H [facility]IG[facility] Last Infusion: 04/06/18 17:21 Dose: Infused Propofol (Diprivan 1000 Mg/100 Ml Inj) 1,000 mg in 100 mls @ 2.547 mls/hr IV.CONT TITRATE PRN; Protocol PRN Reason: Per Protocol Last Titration: 04/06/18 08:20 Dose: 0 mcg/kg/min, 0 mls/hr Norepinephrine Bitartrate 16 (mg/ Sodium Chloride) 250 mls @ 1.87 mls/hr IV.CONT TITRATE PRN; Protocol PRN Reason: See Protocol Dexmedetomidine HCl 1,000 mcg/ (Sodium Chloride) 250 mls @ 4.31 mls/hr IV.CONT TITRATE PRN; Protocol PRN Reason: Per Protocol Last Admin: 04/07/18 08:46 Dose: 1.5 mcg/kg/hr, 32.36 mls/hr Labetalol HCl (Trandate Inj) 20 mg IV.PUSH Q1H PRN PRN Reason: SBP > 160 Last Admin: 04/05/18 20:06 Dose: 20 mg Lactulose (Lactulose Liq) 30 ml PO TID [facility] Last Admin: 04/07/18 08:47 Dose: 30 ml Levothyroxine Sodium (Synthroid) 125 mcg PO DAILY@0600 [facility] Last Admin: 04/07/18 05:24 Dose: 125 mcg Lisinopril (Prinivil) 5 mg PO DAILY [facility] Last Admin: 04/06/18 09:17 Dose: 5 mg Magnesium Oxide (Mag-Ox) 800 mg PO UNSCH PRN PRN Reason: For Magnesium 1.2 - 1.6 mg/dL Metoclopramide HCl (Reglan Inj) 5 mg IV.PUSH Q8HR [facility]; Protocol Stop: 04/10/18 13:59 Last Admin: 04/07/18 05:24 Dose: 5 mg Metoprolol Tartrate (Lopressor) 12.5 mg PO BID [facility] Last Admin: 04/07/18 08:50 Dose: 12.5 mg Miscellaneous Medication () 1 each OROPHARYNG 0000,0400,1200,1600 [facility] Last Admin: 04/07/18 05:25 Dose: 1 each Ondansetron HCl (Zofran Inj) 4 mg IV.PUSH Q6H PRN PRN Reason: NAUSEA OR VOMITING Polyethylene Glycol (Miralax) 17 gm PO BID [facility] Last Admin: 04/07/18 08:47 Dose: 17 gm Potassium Chloride (Kcl Liq) 40 meq PO UNSCH PRN PRN Reason: Potassium level 3.3-3.5 mEq/L Potassium Chloride (Kcl Liq) 40 meq PO UNSCH PRN PRN Reason: Potassium level 3.3-3.5 mEq/L Potassium Phosphate (K-Phos Original) 2,000 mg PO Q4H PRN PRN Reason: Phosphorus Less Than 2.5 mg/dL Potassium Phosphate (K-Phos Original) 2,000 mg PO UNSCH PRN PRN Reason: SEE LABEL COMMENTS Pravastatin Sodium (Pravachol) 40 mg PO HS [facility] Last Admin: 04/06/18 21:35 Dose: 40 mg Senna/Docusate Sodium (Celine-Colace) 1 tab PO BID [facility] Last Admin: 04/07/18 08:49 Dose: 1 tab Sodium Chloride (Ns Flush) 2 ml IV.FLUSH BID [facility] Last Admin: 04/07/18 08:51 Dose: 2 ml Sodium Chloride (Ns Flush) 2 ml IV.FLUSH PRN PRN PRN Reason: FLUSH AFTER USING IV ACCESS Sterile Water (Free Water) 100 ml G-TUBE Q8HR [facility] Last Admin: 04/07/18 05:25 Dose: 100 ml Terbutaline Sulfate (Brethine Inj) 1 mg SQ UNSCH PRN PRN Reason: For Extravasation Allergies/Adverse Reactions: Allergies Allergy/AdvReac Type Severity Reaction Status Date / Time Sulfa (Sulfonamide Allergy Severe Nausea Verified 02/15/18 05:02 Antibiotics) Physical Exam Vital signs: Vital Signs 04/06/18 11:00 04/06/18 11:06 04/06/18 12:00 Temperature 98.1 F 98.1 F 98.4 F Pulse Rate 94 H 94 H 80 Respiratory Rate 17 16 13 Blood Pressure 160/83 H Pulse Oximetry 95 95 96 04/06/18 12:06 04/06/18 12:37 04/06/18 13:00 Temperature 98.6 F 98.4 F Pulse Rate 81 89 82 Respiratory Rate 12 12 12 Blood Pressure 96/59 L Pulse Oximetry 96 97 97 04/06/18 13:06 04/06/18 14:00 04/06/18 14:06 Temperature 98.4 F 98.6 F 98.6 F Pulse Rate 84 95 H 78 Respiratory Rate 12 16 12 Blood Pressure 122/66 81/57 L Pulse Oximetry 97 96 95 04/06/18 14:09 04/06/18 15:00 04/06/18 15:06 Temperature 98.6 F 98.6 F 98.6 F Pulse Rate 91 H 90 91 H Respiratory Rate 17 16 17 Blood Pressure 127/70 141/78 H Pulse Oximetry 96 97 97 04/06/18 16:00 04/06/18 16:06 04/06/18 17:00 Temperature 98.6 F 98.6 F 98.4 F Pulse Rate 93 H 93 H 92 H Respiratory Rate 15 16 27 H Blood Pressure 142/86 H Pulse Oximetry 97 97 97 04/06/18 17:06 04/06/18 17:32 04/06/18 17:34 Temperature 98.4 F Pulse Rate 89 87 Respiratory Rate 16 15 13 Blood Pressure 145/77 H Pulse Oximetry 97 98 04/06/18 18:00 04/06/18 18:06 04/06/18 19:00 Temperature 98.6 F 98.6 F 98.4 F Pulse Rate 99 H 98 H 96 H Respiratory Rate 20 20 19 Blood Pressure 157/85 H 158/51 H Pulse Oximetry 99 99 99 04/06/18 19:06 04/06/18 20:00 04/06/18 20:06 Temperature 98.4 F 98.6 F 98.6 F Pulse Rate 96 H 89 88 Respiratory Rate 19 13 16 Blood Pressure 158/81 H 144/79 H 144/79 H Pulse Oximetry 100 98 98 04/06/18 20:09 04/06/18 20:14 04/06/18 21:00 Temperature 98.6 F Pulse Rate 86 89 Respiratory Rate 15 13 13 Blood Pressure 99/56 L Pulse Oximetry 98 97 04/06/18 21:06 04/06/18 22:00 04/06/18 22:06 Temperature 98.6 F 98.8 F 98.6 F Pulse Rate 81 81 70 Respiratory Rate 12 12 12 Blood Pressure 99/56 L 99/56 L 97/60 L Pulse Oximetry 96 98 98 04/06/18 23:00 04/06/18 23:06 04/06/18 23:46 Temperature 99.5 F 99.7 F H Pulse Rate 63 60 Respiratory Rate 12 12 12 Blood Pressure 84/50 L 84/50 L Pulse Oximetry 97 97 98 04/06/18 23:48 04/07/18 00:00 04/07/18 00:06 Temperature 100.0 F H 100.0 F H Pulse Rate 64 68 69 Respiratory Rate 12 14 13 Blood Pressure 101/61 101/61 Pulse Oximetry 99 99 04/07/18 01:00 04/07/18 01:06 04/07/18 02:00 Temperature 100.0 F H 100.0 F H 99.9 F H Pulse Rate 76 71 77 Respiratory Rate 12 12 13 Blood Pressure 95/58 L 95/58 L 130/79 Pulse Oximetry 98 97 98 04/07/18 02:06 04/07/18 03:00 04/07/18 03:06 Temperature 99.9 F H 99.7 F H 99.7 F H Pulse Rate 78 72 79 Respiratory Rate 12 12 12 Blood Pressure 130/79 110/66 110/66 Pulse Oximetry 98 95 96 04/07/18 03:15 04/07/18 04:00 04/07/18 04:06 Temperature 99.7 F H 99.7 F H Pulse Rate 73 77 70 Respiratory Rate 13 13 12 Blood Pressure 92/56 L 92/56 L Pulse Oximetry 98 98 04/07/18 04:13 04/07/18 05:00 04/07/18 05:06 Temperature 99.7 F H 99.7 F H Pulse Rate 71 77 Respiratory Rate 12 12 11 L Blood Pressure 98/67 L 98/67 L Pulse Oximetry 95 96 96 04/07/18 06:00 04/07/18 06:06 04/07/18 07:00 Temperature 99.3 F 99.3 F 99.5 F Pulse Rate 95 H 89 73 Respiratory Rate 13 12 12 Blood Pressure 125/71 125/71 Pulse Oximetry 97 95 95 04/07/18 07:06 04/07/18 08:00 04/07/18 08:06 Temperature 99.5 F 99.5 F 99.5 F Pulse Rate 70 85 79 Respiratory Rate 12 16 13 Blood Pressure 90/56 L 113/74 Pulse Oximetry 95 98 96 04/07/18 08:24 04/07/18 08:29 04/07/18 09:00 Temperature 99.3 F Pulse Rate 75 85 Respiratory Rate 13 20 21 Blood Pressure Pulse Oximetry 99 97 04/07/18 09:06 Temperature 99.3 F Pulse Rate 85 Respiratory Rate 17 Blood Pressure 124/70 Pulse Oximetry 97 Intake & Output 04/06/18 04/07/18 04/07/18 18:59 06:59 18:59 Intake Total 1281 / 1281 809 / 809 250 / 250 Output Total 950 / 950 550 / 550 Balance 331 / 331 259 / 259 250 / 250 Weight 85.8 kg Intake: IV 200 / 200 250 / 250 250 / 250 Precedex Inj 1,000 MCG In NS 250 / 250 250 / 250 Inj 240 ML @ 0.2 MCG/KG/HR 4.31 mls/hr IV.CONT TITRATE PRN Rx# :[id number] NS Inj 1,000 ML @ 30 mls/hr IV. 0 / 0 CONT .Q24H GIGI Rx#:[id number] KCl 40 mEq Premix Inj 40 meq In 100 / 100 100 ml @ 25 mls/hr IV.SIG Q2H PRN Rx#:[id number] Rocephin Inj 2,000 MG In NS Inj 100 / 100 100 ML @ 200 mls/hr IV.SIG Q24H GIGI Rx#:[id number] Tube Feeding 621 / 621 559 / 559 Tube Irrigant 60 / 60 Water Bolus Amount 400 / 400 Output: Urine Amount (Catheter) 950 / 950 550 / 550 Indwelling Urethral Catheter 950 / 950 550 / 550 Other: Date of Last Bowel Movement 04/05/18 04/07/18 04/07/18 Narrative: awake alert on cpcap folow and moves all ok - Urinary Catheter Management Indwelling Urethral Catheter Cath placed during this visit: yes Reason for continuing: Hourly intake/output Insertion date: 03/31/18 Insertion time: 18:00 Objective Laboratory Results - last 24 hr 04/01/18 04/06/18 04/07/18 17:08 19:14 04:00 WBC 10.9 RBC 3.77 L Hgb 11.8 L Hct 35.5 L MCV 94.3 MCH 31.4 MCHC 33.3 RDW 15.0 Plt Count 323 MPV 8.0 Neut % (Auto) 86.4 H Lymph % (Auto) 3.9 L [place] % (Auto) 9.2 H Eos % (Auto) 0.2 Baso % (Auto) 0.3 Neut # (Auto) 9.4 H Lymph # (Auto) 0.4 L [place] # (Auto) 1.0 H Eos # (Auto) 0.0 Baso # (Auto) 0.0 WBC Differential . Differential Comment Auto diff final Puncture Site Left brachial Sodium Potassium 3.7 Chloride Carbon Dioxide Anion Gap BUN Creatinine Estimated GFR Random Glucose Calcium Phosphorus Magnesium Total Bilirubin AST ALT Alkaline Phosphatase Total Protein Albumin 04/07/18 04:00 WBC RBC Hgb Hct MCV MCH MCHC RDW Plt Count MPV Neut % (Auto) Lymph % (Auto) [place] % (Auto) Eos % (Auto) Baso % (Auto) Neut # (Auto) Lymph # (Auto) [place] # (Auto) Eos # (Auto) Baso # (Auto) WBC Differential Differential Comment Puncture Site Sodium 152 H Potassium 3.8 Chloride 115 H Carbon Dioxide 29.3 Anion Gap 8 BUN 25 H Creatinine 1.00 Estimated GFR 75 L Random Glucose 137 H Calcium 8.5 Phosphorus 3.7 Magnesium 2.9 H Total Bilirubin 0.4 AST 77 H ALT 140 H Alkaline Phosphatase 72 Total Protein 6.5 Albumin 3.1 L Review/Management - Review/Management Plan: Encephalopathy Likely secondary to respiratory failure, hypoxia, metabolic etiology Respiratory failure - Lactic acidosis - Hyperammonemia - Leukocytosis - Neuro checks Q1h - MRI brain and head CT scan was unremarkable for an acute intracranial abnormality - Will reassess after patient he is off sedation. - CSF analysis is unremarkable, pending culture and HSV PCR results - EEG with evidence of encephalopathy, no epileptiform discharges or electrographic seizure activity - I met with family members and discussed the current neurologic status - There is no indication to start AEDs. -DVT prophylaxis - GI prophylaxis - Neurology will follow up. - Dr. Farias will follow up on Tuesday04/03/2018. - Please call for questions 04/03/18 met encep mri LP eeg neg labs neg my hope is off sedatives he should do fine no hx dementia nor pd acc to daughters labs ordered few more 04/04/18 much better ok to dc sedatives neurowise recheck abg still some jerking can recheck eeg when off vent 04/05/18 no jerks now looks well neuro abdalla i dw med team have pulm see check mg labs and consider sniff test if think diaphragm involved 04/07/18 occ jerk acc to nurse still some co2 retaining consider theophylline for resp drive? sniff test? mg lab still pend stable neuro
[2018-04-07] MEDS: Sod Chloride 0.9% Inj 1,000 ML IV.CONT SCH ×2 (11:12→13:29)
--- NOTE | 2018-04-07 11:29 | P.PNID ---
Subjective Remarks: failed CPAP yday 2/2 CO2 retention CXR w clear lungs temps borderline no leukocytosis no diarrhea Antibiotics: CFTX 2 Allergies/Adverse Reactions: Allergies Sulfa (Sulfonamide Antibiotics) Allergy (Severe, Verified 02/15/18 05:02) Nausea also flu like symptoms Objective Vital Signs 04/06/18 12:00 04/06/18 12:06 04/06/18 12:37 Temperature 98.4 F 98.6 F Pulse Rate 80 81 89 Respiratory Rate 13 12 12 Blood Pressure 96/59 L Pulse Oximetry 96 96 97 04/06/18 13:00 04/06/18 13:06 04/06/18 14:00 Temperature 98.4 F 98.4 F 98.6 F Pulse Rate 82 84 95 H Respiratory Rate 12 12 16 Blood Pressure 122/66 Pulse Oximetry 97 97 96 04/06/18 14:06 04/06/18 14:09 04/06/18 15:00 Temperature 98.6 F 98.6 F 98.6 F Pulse Rate 78 91 H 90 Respiratory Rate 12 17 16 Blood Pressure 81/57 L 127/70 Pulse Oximetry 95 96 97 04/06/18 15:06 04/06/18 16:00 04/06/18 16:06 Temperature 98.6 F 98.6 F 98.6 F Pulse Rate 91 H 93 H 93 H Respiratory Rate 17 15 16 Blood Pressure 141/78 H 142/86 H Pulse Oximetry 97 97 97 04/06/18 17:00 04/06/18 17:06 04/06/18 17:32 Temperature 98.4 F 98.4 F Pulse Rate 92 H 89 Respiratory Rate 27 H 16 15 Blood Pressure 145/77 H Pulse Oximetry 97 97 98 04/06/18 17:34 04/06/18 18:00 04/06/18 18:06 Temperature 98.6 F 98.6 F Pulse Rate 87 99 H 98 H Respiratory Rate 13 20 20 Blood Pressure 157/85 H Pulse Oximetry 99 99 04/06/18 19:00 04/06/18 19:06 04/06/18 20:00 Temperature 98.4 F 98.4 F 98.6 F Pulse Rate 96 H 96 H 89 Respiratory Rate 19 19 13 Blood Pressure 158/51 H 158/81 H 144/79 H Pulse Oximetry 99 100 98 04/06/18 20:06 04/06/18 20:09 04/06/18 20:14 Temperature 98.6 F Pulse Rate 88 86 Respiratory Rate 16 15 13 Blood Pressure 144/79 H Pulse Oximetry 98 98 04/06/18 21:00 04/06/18 21:06 04/06/18 22:00 Temperature 98.6 F 98.6 F 98.8 F Pulse Rate 89 81 81 Respiratory Rate 13 12 12 Blood Pressure 99/56 L 99/56 L 99/56 L Pulse Oximetry 97 96 98 04/06/18 22:06 04/06/18 23:00 04/06/18 23:06 Temperature 98.6 F 99.5 F 99.7 F H Pulse Rate 70 63 60 Respiratory Rate 12 12 12 Blood Pressure 97/60 L 84/50 L 84/50 L Pulse Oximetry 98 97 97 04/06/18 23:46 04/06/18 23:48 04/07/18 00:00 Temperature 100.0 F H Pulse Rate 64 68 Respiratory Rate 12 12 14 Blood Pressure 101/61 Pulse Oximetry 98 99 04/07/18 00:06 04/07/18 01:00 04/07/18 01:06 Temperature 100.0 F H 100.0 F H 100.0 F H Pulse Rate 69 76 71 Respiratory Rate 13 12 12 Blood Pressure 101/61 95/58 L 95/58 L Pulse Oximetry 99 98 97 04/07/18 02:00 04/07/18 02:06 04/07/18 03:00 Temperature 99.9 F H 99.9 F H 99.7 F H Pulse Rate 77 78 72 Respiratory Rate 13 12 12 Blood Pressure 130/79 130/79 110/66 Pulse Oximetry 98 98 95 04/07/18 03:06 04/07/18 03:15 04/07/18 04:00 Temperature 99.7 F H 99.7 F H Pulse Rate 79 73 77 Respiratory Rate 12 13 13 Blood Pressure 110/66 92/56 L Pulse Oximetry 96 98 04/07/18 04:06 04/07/18 04:13 04/07/18 05:00 Temperature 99.7 F H 99.7 F H Pulse Rate 70 71 Respiratory Rate 12 12 12 Blood Pressure 92/56 L 98/67 L Pulse Oximetry 98 95 96 04/07/18 05:06 04/07/18 06:00 04/07/18 06:06 Temperature 99.7 F H 99.3 F 99.3 F Pulse Rate 77 95 H 89 Respiratory Rate 11 L 13 12 Blood Pressure 98/67 L 125/71 125/71 Pulse Oximetry 96 97 95 04/07/18 07:00 04/07/18 07:06 04/07/18 08:00 Temperature 99.5 F 99.5 F 99.5 F Pulse Rate 73 70 85 Respiratory Rate 12 12 16 Blood Pressure 90/56 L Pulse Oximetry 95 95 98 04/07/18 08:06 04/07/18 08:24 04/07/18 08:29 Temperature 99.5 F Pulse Rate 79 75 Respiratory Rate 13 13 20 Blood Pressure 113/74 Pulse Oximetry 96 99 04/07/18 09:00 04/07/18 09:06 Temperature 99.3 F 99.3 F Pulse Rate 85 85 Respiratory Rate 21 17 Blood Pressure 124/70 Pulse Oximetry 97 97 Intake & Output 04/06/18 04/07/18 04/07/18 18:59 06:59 18:59 Intake Total 1281 / 1281 809 / 809 635 / 635 Output Total 950 / 950 550 / 550 Balance 331 / 331 259 / 259 635 / 635 Weight 85.8 kg Intake: IV 200 / 200 250 / 250 635 / 635 Precedex Inj 1,000 MCG In NS 250 / 250 250 / 250 Inj 240 ML @ 0.2 MCG/KG/HR 4.31 mls/hr IV.CONT TITRATE PRN Rx# :[id number] NS Inj 1,000 ML @ 30 mls/hr IV. 0 / 0 385 / 385 CONT .Q24H GIGI Rx#:[id number] KCl 40 mEq Premix Inj 40 meq In 100 / 100 100 ml @ 25 mls/hr IV.SIG Q2H PRN Rx#:[id number] Rocephin Inj 2,000 MG In NS Inj 100 / 100 100 ML @ 200 mls/hr IV.SIG Q24H GIGI Rx#:[id number] Tube Feeding 621 / 621 559 / 559 Tube Irrigant 60 / 60 Water Bolus Amount 400 / 400 Output: Urine Amount (Catheter) 950 / 950 550 / 550 Indwelling Urethral Catheter 950 / 950 550 / 550 Other: Date of Last Bowel Movement 04/05/18 04/07/18 04/07/18 03/31/18 19:04 Blood - Peripheral Aerobic Blood Culture - Final No growth in 5 days 03/31/18 19:04 Blood - Peripheral Anaerobic Blood Culture - Final No growth in 5 days 03/31/18 19:09 Blood - Peripheral Aerobic Blood Culture - Final No growth in 5 days 03/31/18 19:09 Blood - Peripheral Anaerobic Blood Culture - Final No growth in 5 days 04/01/18 18:15 Lumbar Puncture Gram Stain - Final 04/01/18 18:15 Lumbar Puncture CSF Culture - Final No growth in 72 hours Lab - Hematology Results 04/06/18 04/07/18 03:30 04:00 WBC 10.0 10.9 RBC 3.85 L 3.77 L Hgb 11.9 L 11.8 L Hct 35.1 L 35.5 L MCV 91.0 94.3 MCH 31.0 31.4 MCHC 34.0 33.3 RDW 14.4 15.0 Plt Count 292 323 MPV 7.7 8.0 Neut % (Auto) 85.8 H 86.4 H Lymph % (Auto) 4.7 L 3.9 L [place] % (Auto) 9.0 H 9.2 H Eos % (Auto) 0.3 0.2 Baso % (Auto) 0.2 0.3 Neut # (Auto) 8.6 H 9.4 H Lymph # (Auto) 0.5 L 0.4 L [place] # (Auto) 0.9 1.0 H Eos # (Auto) 0.0 0.0 Baso # (Auto) 0.0 0.0 WBC Differential . . Differential Comment Auto diff final Auto diff final Lab - Chemistry Results 04/06/18 04/06/18 04/06/18 03:30 03:30 19:14 Sodium 149 H Potassium 3.2 L 3.7 Chloride 114 H Carbon Dioxide 28.2 Anion Gap 7 BUN 15 Creatinine 0.81 Estimated GFR Greater than 89 Random Glucose 132 H Calcium 8.3 L Phosphorus 3.1 D Magnesium 2.6 H Total Bilirubin 0.5 AST 29 ALT 45 Alkaline Phosphatase 73 Ammonia 29 Total Protein 6.6 Albumin 3.1 L 04/07/18 04:00 Sodium 152 H Potassium 3.8 Chloride 115 H Carbon Dioxide 29.3 Anion Gap 8 BUN 25 H Creatinine 1.00 Estimated GFR 75 L Random Glucose 137 H Calcium 8.5 Phosphorus 3.7 Magnesium 2.9 H Total Bilirubin 0.4 AST 77 H ALT 140 H Alkaline Phosphatase 72 Ammonia Total Protein 6.5 Albumin 3.1 L Imaging: ITS Impressions Head MRI 03/31/18 00:00 CONCLUSION: Negative exam Head CT 03/31/18 12:[address]: [address] Head non contrast. . Chest CTA 03/31/18 14:39 CONCLUSION: 1. Bibasilar atelectatic changes, left greater than right. No confluent infiltrate. 2. No pulmonary embolus. 3. Atherosclerotic calcification of the coronary arteries. Cervical Spine MRI 03/31/18 16:17 CONCLUSION: 1. Status post fusion at the C5-C6 level. There is susceptibility artifact from the hardware. 2. A significant area of stenosis in the thecal sac is not seen. 3. Facet hypertrophy seen throughout with scattered areas of neural foraminal narrowing as described above. 4. The patient is intubated with fluid in the hypopharynx, laryngeal pharynx, and upper trachea around the ET tube and above the tracheal ET tube cuff. 5. The does appear to be some mild soft tissue swelling in the prevertebral region best seen on the sagittal images. Chest X-Ray 04/07/18 06:00 CONCLUSION: ET tube in good position. Lungs are grossly clear. Physical Exam: GENERAL: NAD sedated , uint'd SKIN: Warm and dry. HEAD: Atraumatic. Normocephalic. EYES: Pupils equal and round. No scleral icterus. No injection or drainage. ENT: No nasal bleeding or discharge. Mucous membranes pink and moist. NECK: Trachea midline. No JVD. CARDIOVASCULAR: Regular rate and rhythm. RESPIRATORY: No accessory muscle use. Clear to auscultation. Breath sounds equal , bilaterally. GASTROINTESTINAL: Abdomen soft, non-tender, nondistended. Hepatic and splenic margins not palpable. MUSCULOSKELETAL: Extremities without clubbing, cyanosis, or edema. No obvious deformities. NEUROLOGICAL: awake and alert and ocmmunicates appropriately PSYCHIATRIC: calm and cooperative Assessment and Plan - Plan C spine fusion Hypercapnia difficulty breathing developped after surgery Kleb oxytoca PNA signs of PNA resolved cliniclaly and radiologically Acute VDRF, improving fever, low grade: resolved No e/o [employer] infx ?aspiration dc CFTX fu clinically will see as needed\ dw @ bs
--- NOTE | 2018-04-07 12:13 | P.PN ---
Subjective Interval history: Patient is awake off sedation. Responds appropriately. Has been on CPAP and pressure support 5 x 15 and FiO2 to 30%. Failed CPAP yesterday. Hemodynamics are stable. Physical Exam Vital signs: Vital Signs 04/06/18 12:37 04/06/18 13:00 04/06/18 13:06 Temperature 98.4 F 98.4 F Pulse Rate 89 82 84 Respiratory Rate 12 12 12 Blood Pressure 122/66 Pulse Oximetry 97 97 97 04/06/18 14:00 04/06/18 14:06 04/06/18 14:09 Temperature 98.6 F 98.6 F 98.6 F Pulse Rate 95 H 78 91 H Respiratory Rate 16 12 17 Blood Pressure 81/57 L 127/70 Pulse Oximetry 96 95 96 04/06/18 15:00 04/06/18 15:06 04/06/18 16:00 Temperature 98.6 F 98.6 F 98.6 F Pulse Rate 90 91 H 93 H Respiratory Rate 16 17 15 Blood Pressure 141/78 H Pulse Oximetry 97 97 97 04/06/18 16:06 04/06/18 17:00 04/06/18 17:06 Temperature 98.6 F 98.4 F 98.4 F Pulse Rate 93 H 92 H 89 Respiratory Rate 16 27 H 16 Blood Pressure 142/86 H 145/77 H Pulse Oximetry 97 97 97 04/06/18 17:32 04/06/18 17:34 04/06/18 18:00 Temperature 98.6 F Pulse Rate 87 99 H Respiratory Rate 15 13 20 Blood Pressure Pulse Oximetry 98 99 04/06/18 18:06 04/06/18 19:00 04/06/18 19:06 Temperature 98.6 F 98.4 F 98.4 F Pulse Rate 98 H 96 H 96 H Respiratory Rate 20 19 19 Blood Pressure 157/85 H 158/51 H 158/81 H Pulse Oximetry 99 99 100 04/06/18 20:00 04/06/18 20:06 04/06/18 20:09 Temperature 98.6 F 98.6 F Pulse Rate 89 88 86 Respiratory Rate 13 16 15 Blood Pressure 144/79 H 144/79 H Pulse Oximetry 98 98 04/06/18 20:14 04/06/18 21:00 04/06/18 21:06 Temperature 98.6 F 98.6 F Pulse Rate 89 81 Respiratory Rate 13 13 12 Blood Pressure 99/56 L 99/56 L Pulse Oximetry 98 97 96 04/06/18 22:00 04/06/18 22:06 04/06/18 23:00 Temperature 98.8 F 98.6 F 99.5 F Pulse Rate 81 70 63 Respiratory Rate 12 12 12 Blood Pressure 99/56 L 97/60 L 84/50 L Pulse Oximetry 98 98 97 04/06/18 23:06 04/06/18 23:46 04/06/18 23:48 Temperature 99.7 F H Pulse Rate 60 64 Respiratory Rate 12 12 12 Blood Pressure 84/50 L Pulse Oximetry 97 98 04/07/18 00:00 04/07/18 00:06 04/07/18 01:00 Temperature 100.0 F H 100.0 F H 100.0 F H Pulse Rate 68 69 76 Respiratory Rate 14 13 12 Blood Pressure 101/61 101/61 95/58 L Pulse Oximetry 99 99 98 04/07/18 01:06 04/07/18 02:00 04/07/18 02:06 Temperature 100.0 F H 99.9 F H 99.9 F H Pulse Rate 71 77 78 Respiratory Rate 12 13 12 Blood Pressure 95/58 L 130/79 130/79 Pulse Oximetry 97 98 98 04/07/18 03:00 04/07/18 03:06 04/07/18 03:15 Temperature 99.7 F H 99.7 F H Pulse Rate 72 79 73 Respiratory Rate 12 12 13 Blood Pressure 110/66 110/66 Pulse Oximetry 95 96 04/07/18 04:00 04/07/18 04:06 04/07/18 04:13 Temperature 99.7 F H 99.7 F H Pulse Rate 77 70 Respiratory Rate 13 12 12 Blood Pressure 92/56 L 92/56 L Pulse Oximetry 98 98 95 04/07/18 05:00 04/07/18 05:06 04/07/18 06:00 Temperature 99.7 F H 99.7 F H 99.3 F Pulse Rate 71 77 95 H Respiratory Rate 12 11 L 13 Blood Pressure 98/67 L 98/67 L 125/71 Pulse Oximetry 96 96 97 04/07/18 06:06 04/07/18 07:00 04/07/18 07:06 Temperature 99.3 F 99.5 F 99.5 F Pulse Rate 89 73 70 Respiratory Rate 12 12 12 Blood Pressure 125/71 90/56 L Pulse Oximetry 95 95 95 04/07/18 08:00 04/07/18 08:06 04/07/18 08:24 Temperature 99.5 F 99.5 F Pulse Rate 85 79 75 Respiratory Rate 16 13 13 Blood Pressure 113/74 Pulse Oximetry 98 96 04/07/18 08:29 04/07/18 09:00 04/07/18 09:06 Temperature 99.3 F 99.3 F Pulse Rate 85 85 Respiratory Rate 20 21 17 Blood Pressure 124/70 Pulse Oximetry 99 97 97 04/07/18 10:00 04/07/18 10:10 04/07/18 11:00 Temperature 99.1 F 99.1 F 99.3 F Pulse Rate 84 79 70 Respiratory Rate 20 21 18 Blood Pressure 143/80 H Pulse Oximetry 97 98 97 04/07/18 11:06 04/07/18 12:00 Temperature 99.3 F 99.5 F Pulse Rate 66 71 Respiratory Rate 16 19 Blood Pressure 101/63 Pulse Oximetry 96 97 Intake & Output 04/06/18 04/07/18 04/07/18 18:59 06:59 18:59 Intake Total 1281 / 1281 809 / 809 635 / 635 Output Total 950 / 950 550 / 550 Balance 331 / 331 259 / 259 635 / 635 Weight 85.8 kg Intake: IV 200 / 200 250 / 250 635 / 635 Precedex Inj 1,000 MCG In NS 250 / 250 250 / 250 Inj 240 ML @ 0.2 MCG/KG/HR 4.31 mls/hr IV.CONT TITRATE PRN Rx# :[id number] NS Inj 1,000 ML @ 30 mls/hr IV. 0 / 0 385 / 385 CONT .Q24H GIGI Rx#:[id number] KCl 40 mEq Premix Inj 40 meq In 100 / 100 100 ml @ 25 mls/hr IV.SIG Q2H PRN Rx#:[id number] Rocephin Inj 2,000 MG In NS Inj 100 / 100 100 ML @ 200 mls/hr IV.SIG Q24H GIGI Rx#:[id number] Tube Feeding 621 / 621 559 / 559 Tube Irrigant 60 / 60 Water Bolus Amount 400 / 400 Output: Urine Amount (Catheter) 950 / 950 550 / 550 Indwelling Urethral Catheter 950 / 950 550 / 550 Other: Date of Last Bowel Movement 04/05/18 04/07/18 04/07/18 Narrative: GENERAL: Averagely built elderly white male awake and on vent support. SKIN: Warm and dry. HEAD: Atraumatic. Normocephalic. EYES: Pupils equal and round. No scleral icterus. No injection or drainage. ENT: No nasal bleeding or discharge. Mucous membranes pink and moist. NECK: Trachea midline. No JVD. CARDIOVASCULAR: Regular rate and rhythm. RESPIRATORY: No accessory muscle use. Decreased breath sounds at bases. breath sounds equal bilaterally. GASTROINTESTINAL: Abdomen soft, non-tender, nondistended. Hepatic and splenic margins not palpable. MUSCULOSKELETAL: Extremities without clubbing, cyanosis, or edema. No obvious deformities. NEUROLOGICAL: Awake and has generalized weakness. PSYCHIATRIC: Cannot assess - Urinary Catheter Management Indwelling Urethral Catheter Cath placed during this visit: yes Reason for continuing: Hourly intake/output Insertion date: 03/31/18 Insertion time: 18:00 Results - Labs CBC & Chem 7: 04/07/18 04:00 04/07/18 04:00 Laboratory Results - last 24 hr 04/01/18 04/06/18 04/07/18 17:08 19:14 04:00 WBC 10.9 RBC 3.77 L Hgb 11.8 L Hct 35.5 L MCV 94.3 MCH 31.4 MCHC 33.3 RDW 15.0 Plt Count 323 MPV 8.0 Neut % (Auto) 86.4 H Lymph % (Auto) 3.9 L [place] % (Auto) 9.2 H Eos % (Auto) 0.2 Baso % (Auto) 0.3 Neut # (Auto) 9.4 H Lymph # (Auto) 0.4 L [place] # (Auto) 1.0 H Eos # (Auto) 0.0 Baso # (Auto) 0.0 WBC Differential . Differential Comment Auto diff final Puncture Site Left brachial Sodium Potassium 3.7 Chloride Carbon Dioxide Anion Gap BUN Creatinine Estimated GFR Random Glucose Calcium Phosphorus Magnesium Total Bilirubin AST ALT Alkaline Phosphatase Total Protein Albumin 04/07/18 04:00 WBC RBC Hgb Hct MCV MCH MCHC RDW Plt Count MPV Neut % (Auto) Lymph % (Auto) [place] % (Auto) Eos % (Auto) Baso % (Auto) Neut # (Auto) Lymph # (Auto) [place] # (Auto) Eos # (Auto) Baso # (Auto) WBC Differential Differential Comment Puncture Site Sodium 152 H Potassium 3.8 Chloride 115 H Carbon Dioxide 29.3 Anion Gap 8 BUN 25 H Creatinine 1.00 Estimated GFR 75 L Random Glucose 137 H Calcium 8.5 Phosphorus 3.7 Magnesium 2.9 H Total Bilirubin 0.4 AST 77 H ALT 140 H Alkaline Phosphatase 72 Total Protein 6.5 Albumin 3.1 L - Imaging Impressions Chest X-Ray 04/07/18 06:00 CONCLUSION: ET tube in good position. Lungs are grossly clear. Assessment and Plan - Assessment (1) Respiratory failure Code(s): J96.90 - Respiratory failure, unspecified, unspecified whether with hypoxia or hypercapnia Status: Acute (2) Atelectasis Code(s): J98.11 - Atelectasis Status: Acute (3) Neck pain, chronic Code(s): M54.2 - Cervicalgia; G89.29 - Other chronic pain Status: Chronic (4) Other cervical disc degeneration at C5-C6 level Code(s): M50.322 - Other cervical disc degeneration at C5-C6 level Status: Chronic (5) Protrusion of cervical intervertebral disc Code(s): M50.20 - Other cervical disc displacement, unspecified cervical region Status: Chronic (6) Adult failure to thrive Code(s): R62.7 - Adult failure to thrive Status: Acute (7) Shortness of breath Code(s): R06.02 - Shortness of breath Status: Acute (8) Weakness generalized Code(s): R53.1 - Weakness Status: Acute (9) Acute hyponatremia Code(s): E87.1 - Hypo-osmolality and hyponatremia Status: Acute (10) Ventilator dependent Code(s): Z99.11 - Dependence on respirator [ventilator] status Status: Acute - Plan #1 wean vent to T-bar and FiO2 35%. #2 respiratory parameters and ABGs 3. Continue tube feeds at 40 cc/h 4. DuoNeb nebs every 6 hours as needed 5. Stop sedation 6. Tracheal lavage and suction as needed 7. Continue Lovenox 40 mg subcu daily 8. Continue Rocephin 2 g IV daily 9. CBC BMP chest x-ray in a.m. 10. Discussed adding theophylline 200 mg twice daily via OG tube 11. Discussed with Dr. Rodríguez and present in room.
--- NOTE | 2018-04-07 12:55 | P.PNCC ---
Subjective Subjective Remarks/Hospital Course: This 67-year-old came into the emergency room today with his and daughter. On 02/13/2018, he had a microdiscectomy, C5-C6, by Dr. Schwarz. He was discharged home the next day. A few days after, he had not been feeling well, short of breath, disoriented, generally weak, symptoms were getting worse, disorientation was worse. He was referred to emergency department by his primary care physician for an evaluation. In the ED he was found to be in severe hypercarbic respiratory acidosis and was intubated by ED attending. 04/01: CO2 retention corrected. Remains mildly alkalotic due to chronic CO2 elevation. PH normalized. Still requiring vasopressor therapy with norepinephrine. Broad-spectrum antibiotic coverage started. Lumbar puncture performed with opening pressure 20 and crystal-clear fluid, sent for cell counts , chemistries and culture. HSV included. One extra tube sent for future studies if necessary. Ammonia level 71 - repeat daily. 04/02: CSF appears benign. Repeat ammonia level normal. Gamma GT normal. Cardiac echo estimated of 45% ejection fraction requires a little additional investigation -patient has been chronically short of breath for several weeks now. Leukocytosis and left shift persists. Gram-positive cocci and white cells seen in sputum. This man clearly became acutely and critically ill - exact cause still eludes us. 04/03: Leukocytosis improved. Remains quite rigid when stimulated. Continues to move 4 limbs with purpose and follows commands with 4 limbs. Sputum demonstrates white blood cells and gram-negative rods. 04/04: Improved color and perfusion. Extubated yesterday afternoon but failed after about 45 minutes -developed somnolence then obtundation, appeared to be having difficulty taking a breath, concern for vocal cord dysfunction. On reintubation the cord edges were irregular but otherwise normal in appearance. I could not assess cord function as patient was not alert enough to cooperate with commands. We will definitely pursue possibilities of vocal cord dysfunction and or phrenic nerve paralysis once we get him extubated. Ideally, a sniff test under fluoroscopy would demonstrate any paradoxical diaphragm motion. 04/05: Afebrile. Neurologically appears intact. Daughter concerned about "appears distant" however on 40 mcg/kg/min of propofol and 250 mcg an hour fentanyl. No bowel movement since admission. Tube feeding only at 20 cc an hour. SUBJECTIVE: 04/06: Afebrile. Neurologically intact. Following commands.. Positive BM. Labile blood pressures yesterday. Replace potassium currently. 04/07: Patient writing notes today. Chest x-ray clear. Elevated left diaphragm , probably dysfunctional. Continued encephalopathy and generalized weakness chris very concerning. We will try Aminophyllin today to see if we can get some diaphragm and central nervous system stimulation. Objective Vital Signs / I&O: Vital Signs 04/06/18 12:37 04/06/18 13:00 04/06/18 13:06 Temperature 98.4 F 98.4 F Pulse Rate 89 82 84 Respiratory Rate 12 12 12 Blood Pressure 122/66 Pulse Oximetry 97 97 97 04/06/18 14:00 04/06/18 14:06 04/06/18 14:09 Temperature 98.6 F 98.6 F 98.6 F Pulse Rate 95 H 78 91 H Respiratory Rate 16 12 17 Blood Pressure 81/57 L 127/70 Pulse Oximetry 96 95 96 04/06/18 15:00 04/06/18 15:06 04/06/18 16:00 Temperature 98.6 F 98.6 F 98.6 F Pulse Rate 90 91 H 93 H Respiratory Rate 16 17 15 Blood Pressure 141/78 H Pulse Oximetry 97 97 97 04/06/18 16:06 04/06/18 17:00 04/06/18 17:06 Temperature 98.6 F 98.4 F 98.4 F Pulse Rate 93 H 92 H 89 Respiratory Rate 16 27 H 16 Blood Pressure 142/86 H 145/77 H Pulse Oximetry 97 97 97 04/06/18 17:32 04/06/18 17:34 04/06/18 18:00 Temperature 98.6 F Pulse Rate 87 99 H Respiratory Rate 15 13 20 Blood Pressure Pulse Oximetry 98 99 04/06/18 18:06 04/06/18 19:00 04/06/18 19:06 Temperature 98.6 F 98.4 F 98.4 F Pulse Rate 98 H 96 H 96 H Respiratory Rate 20 19 19 Blood Pressure 157/85 H 158/51 H 158/81 H Pulse Oximetry 99 99 100 04/06/18 20:00 04/06/18 20:06 04/06/18 20:09 Temperature 98.6 F 98.6 F Pulse Rate 89 88 86 Respiratory Rate 13 16 15 Blood Pressure 144/79 H 144/79 H Pulse Oximetry 98 98 04/06/18 20:14 04/06/18 21:00 04/06/18 21:06 Temperature 98.6 F 98.6 F Pulse Rate 89 81 Respiratory Rate 13 13 12 Blood Pressure 99/56 L 99/56 L Pulse Oximetry 98 97 96 04/06/18 22:00 04/06/18 22:06 04/06/18 23:00 Temperature 98.8 F 98.6 F 99.5 F Pulse Rate 81 70 63 Respiratory Rate 12 12 12 Blood Pressure 99/56 L 97/60 L 84/50 L Pulse Oximetry 98 98 97 04/06/18 23:06 04/06/18 23:46 04/06/18 23:48 Temperature 99.7 F H Pulse Rate 60 64 Respiratory Rate 12 12 12 Blood Pressure 84/50 L Pulse Oximetry 97 98 04/07/18 00:00 04/07/18 00:06 04/07/18 01:00 Temperature 100.0 F H 100.0 F H 100.0 F H Pulse Rate 68 69 76 Respiratory Rate 14 13 12 Blood Pressure 101/61 101/61 95/58 L Pulse Oximetry 99 99 98 04/07/18 01:06 04/07/18 02:00 04/07/18 02:06 Temperature 100.0 F H 99.9 F H 99.9 F H Pulse Rate 71 77 78 Respiratory Rate 12 13 12 Blood Pressure 95/58 L 130/79 130/79 Pulse Oximetry 97 98 98 04/07/18 03:00 04/07/18 03:06 04/07/18 03:15 Temperature 99.7 F H 99.7 F H Pulse Rate 72 79 73 Respiratory Rate 12 12 13 Blood Pressure 110/66 110/66 Pulse Oximetry 95 96 04/07/18 04:00 04/07/18 04:06 04/07/18 04:13 Temperature 99.7 F H 99.7 F H Pulse Rate 77 70 Respiratory Rate 13 12 12 Blood Pressure 92/56 L 92/56 L Pulse Oximetry 98 98 95 04/07/18 05:00 04/07/18 05:06 04/07/18 06:00 Temperature 99.7 F H 99.7 F H 99.3 F Pulse Rate 71 77 95 H Respiratory Rate 12 11 L 13 Blood Pressure 98/67 L 98/67 L 125/71 Pulse Oximetry 96 96 97 04/07/18 06:06 04/07/18 07:00 04/07/18 07:06 Temperature 99.3 F 99.5 F 99.5 F Pulse Rate 89 73 70 Respiratory Rate 12 12 12 Blood Pressure 125/71 90/56 L Pulse Oximetry 95 95 95 04/07/18 08:00 04/07/18 08:06 04/07/18 08:24 Temperature 99.5 F 99.5 F Pulse Rate 85 79 75 Respiratory Rate 16 13 13 Blood Pressure 113/74 Pulse Oximetry 98 96 04/07/18 08:29 04/07/18 09:00 04/07/18 09:06 Temperature 99.3 F 99.3 F Pulse Rate 85 85 Respiratory Rate 20 21 17 Blood Pressure 124/70 Pulse Oximetry 99 97 97 04/07/18 10:00 04/07/18 10:10 04/07/18 11:00 Temperature 99.1 F 99.1 F 99.3 F Pulse Rate 84 79 70 Respiratory Rate 20 21 18 Blood Pressure 143/80 H Pulse Oximetry 97 98 97 04/07/18 11:06 04/07/18 12:00 Temperature 99.3 F 99.5 F Pulse Rate 66 71 Respiratory Rate 16 19 Blood Pressure 101/63 Pulse Oximetry 96 97 Intake & Output 04/06/18 04/07/18 04/07/18 18:59 06:59 18:59 Intake Total 1281 / 1281 809 / 809 635 / 635 Output Total 950 / 950 550 / 550 Balance 331 / 331 259 / 259 635 / 635 Weight 85.8 kg Intake: IV 200 / 200 250 / 250 635 / 635 Precedex Inj 1,000 MCG In NS 250 / 250 250 / 250 Inj 240 ML @ 0.2 MCG/KG/HR 4.31 mls/hr IV.CONT TITRATE PRN Rx# :[id number] NS Inj 1,000 ML @ 30 mls/hr IV. 0 / 0 385 / 385 CONT .Q24H G[facility] Rx#:[id number] KCl 40 mEq Premix Inj 40 meq In 100 / 100 100 ml @ 25 mls/hr IV.SIG Q2H PRN Rx#:[id number] Rocephin Inj 2,000 MG In NS Inj 100 / 100 100 ML @ 200 mls/hr IV.SIG Q24H [facility] Rx#:[id number] Tube Feeding 621 / 621 559 / 559 Tube Irrigant 60 / 60 Water Bolus Amount 400 / 400 Output: Urine Amount (Catheter) 950 / 950 550 / 550 Indwelling Urethral Catheter 950 / 950 550 / 550 Other: Date of Last Bowel Movement 04/05/18 04/07/18 04/07/18 Result Diagrams: 04/07/18 04:00 04/07/18 04:00 Objective Remarks: GENERAL: 67-year-old male currently orotracheally intubated SKIN: Warm and dry. HEAD: Atraumatic. Normocephalic. EYES: Pupils equal and round. No scleral icterus. No injection or drainage. ENT: No nasal bleeding or discharge. Mucous membranes pink and moist. NECK: Trachea midline. No JVD. CARDIOVASCULAR: Regular rate and rhythm. RESPIRATORY: Raises shoulders to take spontaneous breaths. Clear to auscultation. Breath sounds equal bilaterally. GASTROINTESTINAL: Abdomen soft, non-tender, nondistended. Bowel sounds active. MUSCULOSKELETAL: Extremities without clubbing, cyanosis, or edema. No obvious deformities. NEUROLOGICAL: Follows commands and moves extremities very slowly and weakly. Assessment and Plan - Assessment and Plan Plan: Neuro/Psych: History of anterior C5/6 microdiscectomy with fusion Currently on propofol/fentanyl drips for sedation/analgesia while intubated Goal of RA SS 0 Daily sedation vacation Evaluate by neurosurgery/Dr. Viera. No indication for CT brain/MRI C-spine negative EEG revealed no epileptic activity Neurology following. Recommend myasthenia gravis lab. For accurate evaluation when stable Thiamine and MMA pending Left diaphragm remains elevated, suspect not functioning well. CV: Systolic heart failure unknown if acute or chronic Essential hypertension Hyperlipidemia Ejection fraction 45% on admission. Will need further evaluation Continue amlodipine 10 mg daily, lisinopril 2.5 mg a metoprolol tartrate 12.5 mg twice daily for hypertension Continue pravastatin 40 mg daily for dyslipidemia. Continue aspirin 81 mg by mouth daily. Resp: Acute hypercapnic respiratory failure Klebsiella oxycodone pneumonia PRVC ventilation Ventilator bundle Head of bed at 30 degrees Albuterol/ipratropium aerosols every 4 hours with albuterol aerosols every 2 hours as needed dyspnea Spontaneous breathing trials once clinically indicated Will need sniff test to assess diaphragmatic function once extubated We will consult ENT to assess vocal cords when appropriate Appreciate pulmonary input. Spontaneous breathing trial daily. I am reluctant to extubate early only to watch him fail again. He may benefit from tracheostomy. GI: Gastroesophageal reflux disease Currently on tube feeds at 40 cc an hour. At home on pantoprazole 40 mg daily. Currently on famotidine 20 mg IV twice daily Docusate sodium/senna 1 tablet twice daily for bowel regimen. On lactulose 30 cc twice daily. Add polyethylene glycol 17 g twice daily and methylnaltrexone x1 today. : Wood catheter if indicated for accurate I's and O's in a critical patient Converted to condom cath if possible. Endo: Hypothyroidism TSH 1.28. Continue levothyroxine 125 mg by mouth daily Sliding scale insulin if indicated to maintain euglycemia Renal: Creatinine currently within normal limits Accurate I's Monitor urine output Heme: Normocytic anemia Monitor CBC daily. Follow trends per No indication for transfusion of blood proximal to this time. ID: Klebsiella oxycodone pneumonia sputum 04/01 Currently on ceftriaxone per infectious disease. Lumbar puncture negative. HSV negative No growth to date on other cultures aside from sputum FEN: Hypopotassemia Hypernatremia Free water 100 cc every 8 hours. Replace electrolytes as clinically indicated per ICU electrolyte protocol. Recheck potassium 17 hours. Receiving 80 mEq x1 now. Recheck electro lites in a.m. MSK: PT evaluate and treat Access -Maintain left subclavian CVL Prophylaxis -GI -famotidine -DVT -SCD/enoxaparin Overall impression: Remains quite weak and debilitated. We need to continue to work on nutrition and gentle weaning. His cough is so weak he may benefit from a tracheostomy for pulmonary toilet.
[2018-04-07] MEDS: Lisinopril 5 MG Tablet PO SCH (13:59)
[2018-04-07] MEDS: Theophylline ER 24 HR 200 MG Capsule NG/OG SCH (17:08)
[2018-04-07] MEDS: fentaNYL 10 mcg/mL Premix Drip 2,500 MCG/250 ML BAG IV.SIG PRN (22:45)
[2018-04-08] MEDS: Oral Hygiene Kit OROPHARYNG SCH ×4 (00:14→16:18)
[2018-04-08] MEDS: Artificial Tears Opth Drops 15 ML Bottle EACH EYE SCH ×3 (00:15→16:19)
[2018-04-08] MEDS: Dexmedetomidine Inj 1,000 MCG in Sodium Chlor 0.9% Inj 240 ML IV.CONT PRN ×3 (02:24→16:53)
[2018-04-08] MEDS: Levothyroxine 125 MCG Tablet PO SCH (05:34)
[2018-04-08 07:21] LABS: Hepatitis A IgM Antibody Nonreactive (Nonreactive); Hepatitits B Surface Antigen Nonreactive (Nonreactive)
[2018-04-08] MEDS: Polyethylene Glycol 3350 17 GM Packet PO SCH (08:00)
[2018-04-08] MEDS: Senna/Docusate Sodium 8.6/50 MG Tablet PO SCH (08:00)
[2018-04-08] MEDS: Famotidine PF Inj 20 MG/2 ML Vial IV.PUSH SCH ×2 (08:40→20:14)
[2018-04-08] MEDS: Theophylline ER 24 HR 200 MG Capsule NG/OG SCH (08:40)
[2018-04-08] MEDS: Metoprolol Tartrate 25 MG Tablet PO SCH (08:41)
[2018-04-08] MEDS: Lisinopril 5 MG Tablet PO SCH (08:41)
[2018-04-08] MEDS: Acetaminophen 325 MG Tablet PO PRN (08:41)
[2018-04-08] MEDS: Chlorhexidine 0.12% Oral Kit 15 ML UDC OROPHARYNG SCH ×2 (08:42→20:14)
[2018-04-08] MEDS: amLODIPine 10 MG Tablet PO SCH (08:42)
[2018-04-08] MEDS: Enoxaparin Inj 40 MG/0.4 ML Syringe SQ SCH (08:42)
--- NOTE | 2018-04-08 12:12 | P.PNNEU ---
Subjective Active Medications: Active Medications Acetaminophen (Tylenol) 650 mg PO Q4H PRN PRN Reason: Temp > 100.4 Last Admin: 04/08/18 08:41 Dose: 650 mg Al Hydroxide/Mg Hydroxide (Milk Of Magnjacque Liq) 30 ml PO Q12H PRN PRN Reason: Mild Constipation Last Admin: 04/05/18 05:18 Dose: 30 ml Albuterol (Duoneb Neb (Je)) 1 ampul NEB Q4HR NEB [facility] Last Admin: 04/08/18 08:09 Dose: 1 ampul Albuterol (Albuterol Neb (Prn)) 2.5 mg NEB Q2HR NEB PRN PRN Reason: DYSPNEA Amlodipine Besylate (Norvasc) 10 mg PO DAILY [facility] Last Admin: 04/08/18 08:42 Dose: 10 mg Artificial Tears (Tears Naturale Opth Drops) 1 drop EACH EYE Q8H [facility] Last Admin: 04/08/18 08:57 Dose: 1 drop Aspirin (Ecotrin) 81 mg PO DAILY [facility] Last Admin: 04/08/18 08:41 Dose: 81 mg Chlorhexidine Gluconate (Peridex 0.12% Oral Kit) 15 ml OROPHARYNG BID@0800, 2000 [facility] Last Admin: 04/08/18 08:42 Dose: 15 ml Clonidine HCl (Catapres) 0.1 mg PO Q12HR [facility] Last Admin: 04/08/18 08:41 Dose: 0.1 mg Enoxaparin Sodium (Lovenox Inj) 40 mg SQ DAILY [facility] Last Admin: 04/08/18 08:42 Dose: 40 mg Famotidine (Pepcid Pf Inj) 20 mg IV.PUSH Q12HR [facility] Last Admin: 04/08/18 08:40 Dose: 20 mg Sodium Chloride (Ns Inj) 1,000 mls @ 30 mls/hr IV.CONT .Q24H [facility] Last Admin: 04/07/18 13:29 Dose: Not Given Fentanyl (Fentanyl 10 Mcg/Ml Premix Drip) 2,500 mcg in 250 mls @ 5 mls/hr IV.SIG TITRATE PRN; Protocol PRN Reason: Per Protocol Last Admin: 04/07/18 22:45 Dose: 75 mcg/hr, 7.5 mls/hr Midazolam HCl (Versed Inj) 100 mg in 100 mls @ 2 mls/hr IV.CONT TITRATE PRN; Protocol PRN Reason: See protocol Last Titration: 04/03/18 12:16 Dose: Infused Magnesium Sulfate 4 gm/ Sodium (Chloride) 100 mls @ 50 mls/hr IV.SIG UNSCH PRN PRN Reason: For Magnesium 0.9 - 1.1 mg/dL Magnesium Sulfate 2 gm/ Sodium (Chloride) 100 mls @ 50 mls/hr IV.SIG UNSCH PRN PRN Reason: For Magnesium 1.2 - 1.6 mg/dL Potassium Chloride (Kcl 40 Meq Premix Inj) 40 meq in 100 mls @ 25 mls/hr IV.SIG Q2H PRN PRN Reason: For Potassium 2.8 - 3.2 mEq/L Last Infusion: 04/08/18 09:26 Dose: Infused Potassium Chloride (Kcl 20 Meq Premix Inj) 20 meq in 100 mls @ 50 mls/hr IV.SIG Q2H PRN PRN Reason: For Potassium 3.3 - 3.5 mEq/L Potassium Chloride (Kcl 20 Meq Premix Inj) 20 meq in 100 mls @ 50 mls/hr IV.SIG Q2H PRN PRN Reason: For Potassium 2.8 - 3.2 mEq/L Potassium Phosphate 30 mmol/ (Sodium Chloride) 260 mls @ 42 mls/hr IV.SIG UNSCH PRN PRN Reason: SEE LABEL COMMENTS Sodium Phosphate 30 mmol/ (Sodium Chloride) 260 mls @ 42 mls/hr IV.SIG UNSCH PRN PRN Reason: For Phosphorus < 2.5 mg/dL Potassium Chloride (Kcl 40 Meq Premix Inj) 40 meq in 100 mls @ 25 mls/hr IV.SIG UNSCH PRN PRN Reason: For Potassium 3.3 - 3.5 mEq/L Last Infusion: 04/05/18 11:20 Dose: Infused Propofol (Diprivan 1000 Mg/100 Ml Inj) 1,000 mg in 100 mls @ 2.547 mls/hr IV.CONT TITRATE PRN; Protocol PRN Reason: Per Protocol Last Titration: 04/08/18 09:26 Dose: Infused Norepinephrine Bitartrate 16 (mg/ Sodium Chloride) 250 mls @ 1.87 mls/hr IV.CONT TITRATE PRN; Protocol PRN Reason: See Protocol Dexmedetomidine HCl 1,000 mcg/ (Sodium Chloride) 250 mls @ 4.31 mls/hr IV.CONT TITRATE PRN; Protocol PRN Reason: Per Protocol Last Admin: 04/08/18 09:26 Dose: 1.5 mcg/kg/hr, 32.36 mls/hr Labetalol HCl (Trandate Inj) 20 mg IV.PUSH Q1H PRN PRN Reason: SBP > 160 Last Admin: 04/05/18 20:06 Dose: 20 mg Lactulose (Lactulose Liq) 30 ml PO TID [facility] Last Admin: 04/08/18 08:00 Dose: Not Given Levothyroxine Sodium (Synthroid) 125 mcg PO DAILY@0600 [facility] Last Admin: 04/08/18 05:34 Dose: 125 mcg Lisinopril (Prinivil) 5 mg PO DAILY [facility] Last Admin: 04/08/18 08:41 Dose: 5 mg Magnesium Oxide (Mag-Ox) 800 mg PO UNSCH PRN PRN Reason: For Magnesium 1.2 - 1.6 mg/dL Metoclopramide HCl (Reglan Inj) 5 mg IV.PUSH Q8HR [facility]; Protocol Stop: 04/10/18 13:59 Last Admin: 04/08/18 05:33 Dose: 5 mg Metoprolol Tartrate (Lopressor) 12.5 mg PO BID [facility] Last Admin: 04/08/18 08:41 Dose: 12.5 mg Miscellaneous Medication () 1 each OROPHARYNG 0000,0400,1200,1600 [facility] Last Admin: 04/08/18 04:50 Dose: 1 each Ondansetron HCl (Zofran Inj) 4 mg IV.PUSH Q6H PRN PRN Reason: NAUSEA OR VOMITING Polyethylene Glycol (Miralax) 17 gm PO BID [facility] Last Admin: 04/08/18 08:00 Dose: Not Given Potassium Chloride (Kcl Liq) 40 meq PO UNSCH PRN PRN Reason: Potassium level 3.3-3.5 mEq/L Potassium Chloride (Kcl Liq) 40 meq PO UNSCH PRN PRN Reason: Potassium level 3.3-3.5 mEq/L Potassium Phosphate (K-Phos Original) 2,000 mg PO Q4H PRN PRN Reason: Phosphorus Less Than 2.5 mg/dL Potassium Phosphate (K-Phos Original) 2,000 mg PO UNSCH PRN PRN Reason: SEE LABEL COMMENTS Pravastatin Sodium (Pravachol) 40 mg PO HS [facility] Last Admin: 04/07/18 20:28 Dose: 40 mg Senna/Docusate Sodium (Celine-Colace) 1 tab PO BID [facility] Last Admin: 04/08/18 08:00 Dose: Not Given Sodium Chloride (Ns Flush) 2 ml IV.FLUSH BID [facility] Last Admin: 04/08/18 08:40 Dose: 2 ml Sodium Chloride (Ns Flush) 2 ml IV.FLUSH PRN PRN PRN Reason: FLUSH AFTER USING IV ACCESS Sterile Water (Free Water) 0 ml NG/OG TID [facility] Last Admin: 04/08/18 08:44 Dose: 250 ml Terbutaline Sulfate (Brethine Inj) 1 mg SQ UNSCH PRN PRN Reason: For Extravasation Theophylline (Guzman-24) 400 mg NG/OG DAILY [facility] Last Admin: 04/08/18 08:40 Dose: 400 mg Allergies/Adverse Reactions: Allergies Allergy/AdvReac Type Severity Reaction Status Date / Time Sulfa (Sulfonamide Allergy Severe Nausea Verified 02/15/18 05:02 Antibiotics) Physical Exam Vital signs: Vital Signs 04/07/18 12:40 04/07/18 13:00 04/07/18 13:06 Temperature 99.3 F 99.5 F Pulse Rate 80 69 77 Respiratory Rate 22 16 23 Blood Pressure 119/74 Pulse Oximetry 99 99 96 04/07/18 14:00 04/07/18 14:06 04/07/18 15:00 Temperature 99.3 F 99.3 F 99.1 F Pulse Rate 79 85 82 Respiratory Rate 22 25 H 17 Blood Pressure 138/76 Pulse Oximetry 96 97 97 04/07/18 15:06 04/07/18 16:00 04/07/18 16:06 Temperature 99.1 F 99.3 F 99.3 F Pulse Rate 81 68 76 Respiratory Rate 18 13 15 Blood Pressure 120/70 124/74 Pulse Oximetry 97 97 97 04/07/18 16:11 04/07/18 17:00 04/07/18 17:06 Temperature 99.5 F 99.5 F Pulse Rate 81 74 78 Respiratory Rate 16 13 14 Blood Pressure 114/72 Pulse Oximetry 97 97 97 04/07/18 18:00 04/07/18 18:06 04/07/18 19:00 Temperature 99.0 F 99.0 F 99.0 F Pulse Rate 88 82 79 Respiratory Rate 14 12 13 Blood Pressure 119/69 Pulse Oximetry 97 96 97 04/07/18 19:06 04/07/18 20:00 04/07/18 20:01 Temperature 99.0 F 99.0 F Pulse Rate 75 89 Respiratory Rate 12 15 13 Blood Pressure 121/70 Pulse Oximetry 97 99 98 04/07/18 20:05 04/07/18 20:06 04/07/18 21:00 Temperature 99.0 F 98.8 F Pulse Rate 86 85 79 Respiratory Rate 13 13 12 Blood Pressure 135/83 Pulse Oximetry 97 96 04/07/18 21:06 04/07/18 22:00 04/07/18 22:06 Temperature 98.8 F 98.6 F 98.6 F Pulse Rate 93 H 97 H 76 Respiratory Rate 14 21 12 Blood Pressure 146/81 H 95/61 L Pulse Oximetry 96 96 96 04/07/18 23:00 04/07/18 23:06 04/07/18 23:41 Temperature 98.8 F 98.6 F Pulse Rate 88 87 77 Respiratory Rate 12 12 12 Blood Pressure 132/78 Pulse Oximetry 96 97 96 04/08/18 00:00 04/08/18 00:06 04/08/18 01:00 Temperature 98.6 F Pulse Rate 68 66 91 H Respiratory Rate 12 12 17 Blood Pressure 97/64 L Pulse Oximetry 98 98 96 04/08/18 01:23 04/08/18 02:00 04/08/18 02:06 Temperature 98.6 F 98.6 F 98.6 F Pulse Rate 69 70 76 Respiratory Rate 12 12 12 Blood Pressure 97/66 L 112/70 Pulse Oximetry 94 L 95 96 04/08/18 03:00 04/08/18 03:06 04/08/18 04:00 Temperature 98.8 F 98.8 F 99.0 F Pulse Rate 72 74 73 Respiratory Rate 12 12 12 Blood Pressure 117/71 Pulse Oximetry 97 97 97 04/08/18 04:06 04/08/18 04:50 04/08/18 05:00 Temperature 99.0 F 98.8 F Pulse Rate 76 96 H Respiratory Rate 12 12 13 Blood Pressure 116/86 Pulse Oximetry 98 94 L 95 04/08/18 05:06 04/08/18 06:00 04/08/18 06:06 Temperature 98.8 F 98.8 F 98.8 F Pulse Rate 102 H 104 H 106 H Respiratory Rate 16 13 12 Blood Pressure 159/90 H 167/93 H Pulse Oximetry 95 96 97 04/08/18 07:00 04/08/18 07:06 04/08/18 08:00 Temperature 98.8 F 98.8 F 98.8 F Pulse Rate 106 H 106 H 96 H Respiratory Rate 13 14 13 Blood Pressure 156/92 H Pulse Oximetry 97 96 95 04/08/18 08:06 04/08/18 09:00 04/08/18 09:06 Temperature 99.0 F 99.0 F 99.0 F Pulse Rate 104 H 99 H 88 Respiratory Rate 20 13 12 Blood Pressure 140/80 89/62 L Pulse Oximetry 95 94 L 94 L 04/08/18 09:51 04/08/18 10:00 04/08/18 10:06 Temperature 99.1 F 99.3 F 99.1 F Pulse Rate 82 90 92 H Respiratory Rate 12 13 13 Blood Pressure 91/60 L 127/76 Pulse Oximetry 95 95 96 04/08/18 11:00 04/08/18 11:06 04/08/18 11:48 Temperature 99.3 F 99.3 F Pulse Rate 84 75 73 Respiratory Rate 15 12 Blood Pressure 98/62 L Pulse Oximetry 96 96 Intake & Output 04/07/18 04/08/18 04/08/18 18:59 06:59 18:59 Intake Total 2075 / 2075 1085 / 1085 502.9 / 502.9 Output Total 550 / 550 550 / 550 Balance 1525 / 1525 535 / 535 502.9 / 502.9 Weight 85.8 kg Intake: IV 885 / 885 250 / 250 502.9 / 502.9 Precedex Inj 1,000 MCG In NS 500 / 500 250 / 250 250 / 250 Inj 240 ML @ 0.2 MCG/KG/HR 4.31 mls/hr IV.CONT TITRATE PRN Rx# :[id number] Diprivan 1000 mg/100 ml Inj 1, 52.9 / 52.9 000 mg In 100 ml @ 5 MCG/KG/MIN 2.547 mls/hr IV.CONT TITRATE PRN Rx#:[id number] NS Inj 1,000 ML @ 30 mls/hr IV. 385 / 385 CONT .Q24H JE Rx#:[id number] KCl 40 mEq Premix Inj 40 meq In 100 / 100 100 ml @ 25 mls/hr IV.SIG Q2H PRN Rx#:[id number] Rocephin Inj 2,000 MG In NS Inj 100 / 100 100 ML @ 200 mls/hr IV.SIG Q24H JE Rx#:[id number] Tube Feeding 740 / 740 575 / 575 Tube Irrigant 60 / 60 Water Bolus Amount 450 / 450 200 / 200 Output: Urine Amount (Catheter) 550 / 550 550 / 550 Indwelling Urethral Catheter 550 / 550 550 / 550 Other: Date of Last Bowel Movement 04/07/18 04/08/18 04/08/18 # Bowel Movements 2 2 # Incontinent Bowel Movements 2 Narrative: awake alert nl strength follows commands well - Urinary Catheter Management Indwelling Urethral Catheter Cath placed during this visit: yes Reason for continuing: Hourly intake/output Insertion date: 03/31/18 Insertion time: 18:00 Objective Laboratory Results - last 24 hr 04/05/18 04/08/18 10:36 05:30 Striated Muscle Ab Ttr ND Striated Muscle Ab Negative Hepatitis A IgM Ab Nonreactive Hep Bs Antigen Nonreactive Hep B Core IgM Ab Nonreactive Hep C IgG Ab Nonreactive Review/Management - Review/Management Plan: Encephalopathy Likely secondary to respiratory failure, hypoxia, metabolic etiology Respiratory failure - Lactic acidosis - Hyperammonemia - Leukocytosis - Neuro checks Q1h - MRI brain and head CT scan was unremarkable for an acute intracranial abnormality - Will reassess after patient he is off sedation. - CSF analysis is unremarkable, pending culture and HSV PCR results - EEG with evidence of encephalopathy, no epileptiform discharges or electrographic seizure activity - I met with family members and discussed the current neurologic status - There is no indication to start AEDs. -DVT prophylaxis - GI prophylaxis - Neurology will follow up. - Dr. Farias will follow up on Tuesday04/03/2018. - Please call for questions 04/03/18 met encep mri LP eeg neg labs neg my hope is off sedatives he should do fine no hx dementia nor pd acc to daughters labs ordered few more 04/04/18 much better ok to dc sedatives neurowise recheck abg still some jerking can recheck eeg when off vent 04/05/18 no jerks now looks well neuro abdalla i dw med team have pulm see check mg labs and consider sniff test if think diaphragm involved 04/07/18 occ jerk acc to nurse still some co2 retaining consider theophylline for resp drive? sniff test? mg lab still pend stable neuro 04/08/18 one mg lab neg toher pend no change neurowise tired out after 6 hours stable neuro
--- NOTE | 2018-04-08 12:19 | P.PNCC ---
Subjective Subjective Remarks/Hospital Course: This 67-year-old came into the emergency room today with his and daughter. On 02/13/2018, he had a microdiscectomy, C5-C6, by Dr. Schwarz. He was discharged home the next day. A few days after, he had not been feeling well, short of breath, disoriented, generally weak, symptoms were getting worse, disorientation was worse. He was referred to emergency department by his primary care physician for an evaluation. In the ED he was found to be in severe hypercarbic respiratory acidosis and was intubated by ED attending. 04/01: CO2 retention corrected. Remains mildly alkalotic due to chronic CO2 elevation. PH normalized. Still requiring vasopressor therapy with norepinephrine. Broad-spectrum antibiotic coverage started. Lumbar puncture performed with opening pressure 20 and crystal-clear fluid, sent for cell counts , chemistries and culture. HSV included. One extra tube sent for future studies if necessary. Ammonia level 71 - repeat daily. 04/02: CSF appears benign. Repeat ammonia level normal. Gamma GT normal. Cardiac echo estimated of 45% ejection fraction requires a little additional investigation -patient has been chronically short of breath for several weeks now. Leukocytosis and left shift persists. Gram-positive cocci and white cells seen in sputum. This man clearly became acutely and critically ill - exact cause still eludes us. 04/03: Leukocytosis improved. Remains quite rigid when stimulated. Continues to move 4 limbs with purpose and follows commands with 4 limbs. Sputum demonstrates white blood cells and gram-negative rods. 04/04: Improved color and perfusion. Extubated yesterday afternoon but failed after about 45 minutes -developed somnolence then obtundation, appeared to be having difficulty taking a breath, concern for vocal cord dysfunction. On reintubation the cord edges were irregular but otherwise normal in appearance. I could not assess cord function as patient was not alert enough to cooperate with commands. We will definitely pursue possibilities of vocal cord dysfunction and or phrenic nerve paralysis once we get him extubated. Ideally, a sniff test under fluoroscopy would demonstrate any paradoxical diaphragm motion. 04/05: Afebrile. Neurologically appears intact. Daughter concerned about "appears distant" however on 40 mcg/kg/min of propofol and 250 mcg an hour fentanyl. No bowel movement since admission. Tube feeding only at 20 cc an hour. 04/06: Afebrile. Neurologically intact. Following commands.. Positive BM. Labile blood pressures yesterday. Replace potassium currently. 04/07: Patient writing notes today. Chest x-ray clear. Elevated left diaphragm , probably dysfunctional. Continued encephalopathy and generalized weakness chris very concerning. We will try Aminophyllin today to see if we can get some diaphragm and central nervous system stimulation. SUBJECTIVE: 04/08: Started on theophylline yesterday. Check level in a.m. Will attempt PSV trial today. Noted pulmonology requests possible T-bar with ABG when appropriate. Afebrile. Objective Vital Signs / I&O: Vital Signs 04/07/18 12:40 04/07/18 13:00 04/07/18 13:06 Temperature 99.3 F 99.5 F Pulse Rate 80 69 77 Respiratory Rate 22 16 23 Blood Pressure 119/74 Pulse Oximetry 99 99 96 04/07/18 14:00 04/07/18 14:06 04/07/18 15:00 Temperature 99.3 F 99.3 F 99.1 F Pulse Rate 79 85 82 Respiratory Rate 22 25 H 17 Blood Pressure 138/76 Pulse Oximetry 96 97 97 04/07/18 15:06 04/07/18 16:00 04/07/18 16:06 Temperature 99.1 F 99.3 F 99.3 F Pulse Rate 81 68 76 Respiratory Rate 18 13 15 Blood Pressure 120/70 124/74 Pulse Oximetry 97 97 97 04/07/18 16:11 04/07/18 17:00 04/07/18 17:06 Temperature 99.5 F 99.5 F Pulse Rate 81 74 78 Respiratory Rate 16 13 14 Blood Pressure 114/72 Pulse Oximetry 97 97 97 04/07/18 18:00 04/07/18 18:06 04/07/18 19:00 Temperature 99.0 F 99.0 F 99.0 F Pulse Rate 88 82 79 Respiratory Rate 14 12 13 Blood Pressure 119/69 Pulse Oximetry 97 96 97 04/07/18 19:06 04/07/18 20:00 04/07/18 20:01 Temperature 99.0 F 99.0 F Pulse Rate 75 89 Respiratory Rate 12 15 13 Blood Pressure 121/70 Pulse Oximetry 97 99 98 04/07/18 20:05 04/07/18 20:06 04/07/18 21:00 Temperature 99.0 F 98.8 F Pulse Rate 86 85 79 Respiratory Rate 13 13 12 Blood Pressure 135/83 Pulse Oximetry 97 96 04/07/18 21:06 04/07/18 22:00 04/07/18 22:06 Temperature 98.8 F 98.6 F 98.6 F Pulse Rate 93 H 97 H 76 Respiratory Rate 14 21 12 Blood Pressure 146/81 H 95/61 L Pulse Oximetry 96 96 96 04/07/18 23:00 04/07/18 23:06 04/07/18 23:41 Temperature 98.8 F 98.6 F Pulse Rate 88 87 77 Respiratory Rate 12 12 12 Blood Pressure 132/78 Pulse Oximetry 96 97 96 04/08/18 00:00 04/08/18 00:06 04/08/18 01:00 Temperature 98.6 F Pulse Rate 68 66 91 H Respiratory Rate 12 12 17 Blood Pressure 97/64 L Pulse Oximetry 98 98 96 04/08/18 01:23 04/08/18 02:00 04/08/18 02:06 Temperature 98.6 F 98.6 F 98.6 F Pulse Rate 69 70 76 Respiratory Rate 12 12 12 Blood Pressure 97/66 L 112/70 Pulse Oximetry 94 L 95 96 04/08/18 03:00 04/08/18 03:06 04/08/18 04:00 Temperature 98.8 F 98.8 F 99.0 F Pulse Rate 72 74 73 Respiratory Rate 12 12 12 Blood Pressure 117/71 Pulse Oximetry 97 97 97 04/08/18 04:06 04/08/18 04:50 04/08/18 05:00 Temperature 99.0 F 98.8 F Pulse Rate 76 96 H Respiratory Rate 12 12 13 Blood Pressure 116/86 Pulse Oximetry 98 94 L 95 04/08/18 05:06 04/08/18 06:00 04/08/18 06:06 Temperature 98.8 F 98.8 F 98.8 F Pulse Rate 102 H 104 H 106 H Respiratory Rate 16 13 12 Blood Pressure 159/90 H 167/93 H Pulse Oximetry 95 96 97 04/08/18 07:00 04/08/18 07:06 04/08/18 08:00 Temperature 98.8 F 98.8 F 98.8 F Pulse Rate 106 H 106 H 96 H Respiratory Rate 13 14 13 Blood Pressure 156/92 H Pulse Oximetry 97 96 95 04/08/18 08:06 04/08/18 09:00 04/08/18 09:06 Temperature 99.0 F 99.0 F 99.0 F Pulse Rate 104 H 99 H 88 Respiratory Rate 20 13 12 Blood Pressure 140/80 89/62 L Pulse Oximetry 95 94 L 94 L 04/08/18 09:51 04/08/18 10:00 04/08/18 10:06 Temperature 99.1 F 99.3 F 99.1 F Pulse Rate 82 90 92 H Respiratory Rate 12 13 13 Blood Pressure 91/60 L 127/76 Pulse Oximetry 95 95 96 04/08/18 11:00 04/08/18 11:06 04/08/18 11:48 Temperature 99.3 F 99.3 F Pulse Rate 84 75 73 Respiratory Rate 15 12 Blood Pressure 98/62 L Pulse Oximetry 96 96 Intake & Output 04/07/18 04/08/18 04/08/18 18:59 06:59 18:59 Intake Total 2075 / 2075 1085 / 1085 502.9 / 502.9 Output Total 550 / 550 550 / 550 Balance 1525 / 1525 535 / 535 502.9 / 502.9 Weight 85.8 kg Intake: IV 885 / 885 250 / 250 502.9 / 502.9 Precedex Inj 1,000 MCG In NS 500 / 500 250 / 250 250 / 250 Inj 240 ML @ 0.2 MCG/KG/HR 4.31 mls/hr IV.CONT TITRATE PRN Rx# :[id number] Diprivan 1000 mg/100 ml Inj 1, 52.9 / 52.9 000 mg In 100 ml @ 5 MCG/KG/MIN 2.547 mls/hr IV.CONT TITRATE PRN Rx#:[id number] NS Inj 1,000 ML @ 30 mls/hr IV. 385 / 385 CONT .Q24H GIGI Rx#:[id number] KCl 40 mEq Premix Inj 40 meq In 100 / 100 100 ml @ 25 mls/hr IV.SIG Q2H PRN Rx#:[id number] Rocephin Inj 2,000 MG In NS Inj 100 / 100 100 ML @ 200 mls/hr IV.SIG Q24H GIGI Rx#:[id number] Tube Feeding 740 / 740 575 / 575 Tube Irrigant 60 / 60 Water Bolus Amount 450 / 450 200 / 200 Output: Urine Amount (Catheter) 550 / 550 550 / 550 Indwelling Urethral Catheter 550 / 550 550 / 550 Other: Date of Last Bowel Movement 04/07/18 04/08/18 04/08/18 # Bowel Movements 2 2 # Incontinent Bowel Movements 2 Result Diagrams: 04/07/18 04:00 04/07/18 04:00 Other Results: Microbiology 03/31/18 19:04 Blood - Peripheral Aerobic Blood Culture - Final No growth in 5 days 03/31/18 19:04 Blood - Peripheral Anaerobic Blood Culture - Final No growth in 5 days 03/31/18 19:09 Blood - Peripheral Aerobic Blood Culture - Final No growth in 5 days 03/31/18 19:09 Blood - Peripheral Anaerobic Blood Culture - Final No growth in 5 days 04/01/18 18:15 Lumbar Puncture Gram Stain - Final 04/01/18 18:15 Lumbar Puncture CSF Culture - Final No growth in 72 hours 04/01/18 06:00 Sputum - Endotracheal Gram Stain - Final 04/01/18 06:00 Sputum - Endotracheal Sputum Culture - Final Klebsiella oxytoca 04/01/18 06:00 Nasal Wash Influenza Types A,B Antigen - Final Negative for FLU A and B antigen Infection due to influenza A or B cannot be ruled out since the antigen present in the sample may be below the detection limit of the test. Imaging: Head MRI 03/31/18 00:00 CONCLUSION: Negative exam Chest X-Ray 03/31/18 12:15 CONCLUSION: 1. Hypoinflation with probable atelectatic changes above the left hemidiaphragm. 2. Otherwise, no acute cardiopulmonary process. Head CT 03/31/18 12:16 CONCLUSION: 1. Negative CT Head non contrast. . Chest CTA 03/31/18 14:39 CONCLUSION: 1. Bibasilar atelectatic changes, left greater than right. No confluent infiltrate. 2. No pulmonary embolus. 3. Atherosclerotic calcification of the coronary arteries. Chest X-Ray 03/31/18 16:11 CONCLUSION: 1. Hypoinflation with persistent left basilar atelectasis. 2. Endotracheal tube tip at the clavicular heads, above the duane. Cervical Spine MRI 03/31/18 16:17 CONCLUSION: 1. Status post fusion at the C5-C6 level. There is susceptibility artifact from the hardware. 2. A significant area of stenosis in the thecal sac is not seen. 3. Facet hypertrophy seen throughout with scattered areas of neural foraminal narrowing as described above. 4. The patient is intubated with fluid in the hypopharynx, laryngeal pharynx, and upper trachea around the ET tube and above the tracheal ET tube cuff. 5. The does appear to be some mild soft tissue swelling in the prevertebral region best seen on the sagittal images. Chest X-Ray 04/01/18 04:29 CONCLUSION: 1. Nasogastric tube and left subclavian central venous catheter now in place. 2. Mild bilateral lower lung zone atelectasis unchanged. No evidence of pneumothorax. Chest X-Ray 04/02/18 04:00 CONCLUSION: No significant interval change. Mild bilateral lower lung zone atelectasis. Chest X-Ray 04/04/18 00:00 CONCLUSION: Stable chest. Persistent bibasilar patchy opacities. Chest X-Ray 04/06/18 06:00 CONCLUSION: Some improvement in the bibasilar consolidations. Chest X-Ray 04/07/18 06:00 CONCLUSION: ET tube in good position. Lungs are grossly clear. Objective Remarks: GENERAL: 67-year-old male currently orotracheally intubated in no acute distress SKIN: Warm and dry. HEAD: Atraumatic. Normocephalic. EYES: Pupils equal and round. No scleral icterus. No injection or drainage. ENT: No nasal bleeding or discharge. Mucous membranes pink and moist. NECK: Trachea midline. No JVD. CARDIOVASCULAR: Regular rate and rhythm. S1, S2 predose 4. RESPIRATORY: Raises shoulders to take spontaneous breaths. Clear to auscultation. Breath sounds equal bilaterally. GASTROINTESTINAL: Abdomen soft, non-tender, nondistended. Bowel sounds active. MUSCULOSKELETAL: Extremities without clubbing, cyanosis, or edema. No obvious deformities. NEUROLOGICAL: Follows commands and moves extremities very slowly and weakly. Assessment and Plan - Assessment and Plan Plan: Neuro/Psych: History of anterior C5/6 microdiscectomy with fusion Currently on propofol/fentanyl drips for sedation/analgesia while intubated Goal of RA SS 0 Daily sedation vacation Evaluate by neurosurgery/Dr. Viera. No indication for CT brain/MRI C-spine negative EEG revealed no epileptic activity Neurology following. Recommend myasthenia gravis lab. For accurate evaluation when stable Thiamine and MMA pending Left diaphragm remains elevated, suspect not functioning well. CV: Systolic heart failure unknown if acute or chronic Essential hypertension Hyperlipidemia Ejection fraction 45% on admission. Will need further evaluation Continue amlodipine 10 mg daily, lisinopril 2.5 mg a metoprolol tartrate 12.5 mg twice daily for hypertension Continue pravastatin 40 mg daily for dyslipidemia. Continue aspirin 81 mg by mouth daily. Resp: Acute hypercapnic respiratory failure Klebsiella oxycodone pneumonia PRVC ventilation Ventilator bundle Head of bed at 30 degrees Albuterol/ipratropium aerosols every 4 hours with albuterol aerosols every 2 hours as needed dyspnea Spontaneous breathing trials once clinically indicated Will need sniff test to assess diaphragmatic function once extubated We will consult ENT to assess vocal cords when appropriate Appreciate pulmonary input. Spontaneous breathing trial daily. May benefit from tracheostomy Start on theophylline 400 mg daily. Recheck level in a.m. 04/09 GI: Gastroesophageal reflux disease Currently on tube feeds at 40 cc an hour. At home on pantoprazole 40 mg daily. Currently on famotidine 20 mg IV twice daily Docusate sodium/senna 1 tablet twice daily for bowel regimen. On lactulose 30 cc twice daily. Add polyethylene glycol 17 g twice daily and methylnaltrexone x1 today. : Wood catheter if indicated for accurate I's and O's in a critical patient Converted to condom cath if possible. Endo: Hypothyroidism TSH 1.28. Continue levothyroxine 125 mg by mouth daily Sliding scale insulin if indicated to maintain euglycemia Renal: Creatinine currently within normal limits Accurate I's Monitor urine output Heme: Normocytic anemia Monitor CBC daily. Follow trends per No indication for transfusion of blood proximal to this time. ID: Klebsiella oxycodone pneumonia sputum 04/01 Currently on ceftriaxone per infectious disease. Lumbar puncture negative. HSV negative No growth to date on other cultures aside from sputum FEN: Hypernatremia Hyper magnesium Free water 200 cc every 6 hours. Replace electrolytes as clinically indicated per ICU electrolyte protocol. Recheck potassium 17 hours. Receiving 80 mEq x1 now. Recheck electrolytes in a.m. MSK: PT evaluate and treat Access -Maintain left subclavian CVL Prophylaxis -GI -famotidine -DVT -SCD/enoxaparin Overall impression: Remains quite weak and debilitated. We need to continue to work on nutrition and gentle weaning. His cough is so weak he may benefit from a tracheostomy for pulmonary toilet.
[2018-04-08] MEDS: Sod Chloride 0.9% Inj 1,000 ML IV.CONT SCH (14:37)
[2018-04-08] MEDS: fentaNYL 10 mcg/mL Premix Drip 2,500 MCG/250 ML BAG IV.SIG PRN (16:16)
--- NOTE | 2018-04-08 17:27 | XR ---
EXAM DATE: 04/08/2018 5:21 PM EST AGE/SEX: 67 years / Male INDICATIONS: Acute hypoxia. CLINICAL DATA: This is the patient's subsequent encounter. Patient reports that signs and symptoms h ave been present for 1 day and indicates a pain score of Nonresponsive. MEDICAL/SURGICAL HISTORY: . Thyroid disease . Microdiscectomy. Left inguinal hernia repair. COMPARISON: [facility] [place], CHEST 1V SINGLE AP, 04/07/2018. . FINDINGS: Single AP view the chest. Endotracheal tube and nasogastric tube remain in place. Lung volumes are lo w. Mild patchy bilateral lower lung zone opacity unchanged. No evidence of pleural effusion or pneumo thorax. CONCLUSION: No significant interval change. Mild patchy bilateral lower lung opacity. Electronically signed by: Beto De Oliveira MD Board Certified Radiologist 04/08/2018 5:26 PM EST
--- NOTE | 2018-04-08 18:22 | P.PN ---
Subjective Interval history: Awake and assisting the ventilator. On CPAP and FiO2 of 35%. Did not tolerate trach blow-by. ABGs showed hypercapnia. Was started on theophylline yesterday. Physical Exam Vital signs: Vital Signs 04/07/18 19:00 04/07/18 19:06 04/07/18 20:00 Temperature 99.0 F 99.0 F 99.0 F Pulse Rate 79 75 89 Respiratory Rate 13 12 15 Blood Pressure 121/70 Pulse Oximetry 97 97 99 04/07/18 20:01 04/07/18 20:05 04/07/18 20:06 Temperature 99.0 F Pulse Rate 86 85 Respiratory Rate 13 13 13 Blood Pressure 135/83 Pulse Oximetry 98 97 04/07/18 21:00 04/07/18 21:06 04/07/18 22:00 Temperature 98.8 F 98.8 F 98.6 F Pulse Rate 79 93 H 97 H Respiratory Rate 12 14 21 Blood Pressure 146/81 H Pulse Oximetry 96 96 96 04/07/18 22:06 04/07/18 23:00 04/07/18 23:06 Temperature 98.6 F 98.8 F 98.6 F Pulse Rate 76 88 87 Respiratory Rate 12 12 12 Blood Pressure 95/61 L 132/78 Pulse Oximetry 96 96 97 04/07/18 23:41 04/08/18 00:00 04/08/18 00:06 Temperature Pulse Rate 77 68 66 Respiratory Rate 12 12 12 Blood Pressure 97/64 L Pulse Oximetry 96 98 98 04/08/18 01:00 04/08/18 01:23 04/08/18 02:00 Temperature 98.6 F 98.6 F 98.6 F Pulse Rate 91 H 69 70 Respiratory Rate 17 12 12 Blood Pressure 97/66 L Pulse Oximetry 96 94 L 95 04/08/18 02:06 04/08/18 03:00 04/08/18 03:06 Temperature 98.6 F 98.8 F 98.8 F Pulse Rate 76 72 74 Respiratory Rate 12 12 12 Blood Pressure 112/70 117/71 Pulse Oximetry 96 97 97 04/08/18 04:00 04/08/18 04:06 04/08/18 04:50 Temperature 99.0 F 99.0 F Pulse Rate 73 76 Respiratory Rate 12 12 12 Blood Pressure 116/86 Pulse Oximetry 97 98 94 L 04/08/18 05:00 04/08/18 05:06 04/08/18 06:00 Temperature 98.8 F 98.8 F 98.8 F Pulse Rate 96 H 102 H 104 H Respiratory Rate 13 16 13 Blood Pressure 159/90 H Pulse Oximetry 95 95 96 04/08/18 06:06 04/08/18 07:00 04/08/18 07:06 Temperature 98.8 F 98.8 F 98.8 F Pulse Rate 106 H 106 H 106 H Respiratory Rate 12 13 14 Blood Pressure 167/93 H 156/92 H Pulse Oximetry 97 97 96 04/08/18 08:00 04/08/18 08:06 04/08/18 09:00 Temperature 98.8 F 99.0 F 99.0 F Pulse Rate 96 H 104 H 99 H Respiratory Rate 13 20 13 Blood Pressure 140/80 Pulse Oximetry 95 95 94 L 04/08/18 09:06 04/08/18 09:51 04/08/18 10:00 Temperature 99.0 F 99.1 F 99.3 F Pulse Rate 88 82 90 Respiratory Rate 12 12 13 Blood Pressure 89/62 L 91/60 L Pulse Oximetry 94 L 95 95 04/08/18 10:06 04/08/18 11:00 04/08/18 11:06 Temperature 99.1 F 99.3 F 99.3 F Pulse Rate 92 H 111 H 75 Respiratory Rate 13 19 12 Blood Pressure 127/76 98/62 L Pulse Oximetry 96 96 96 04/08/18 11:48 04/08/18 12:00 04/08/18 12:06 Temperature 99.3 F 99.3 F Pulse Rate 73 94 H 104 H Respiratory Rate 17 21 Blood Pressure 157/84 H Pulse Oximetry 96 96 04/08/18 12:29 04/08/18 13:00 04/08/18 13:06 Temperature 99.0 F 99.0 F Pulse Rate 95 H 93 H Respiratory Rate 19 17 14 Blood Pressure 88/50 L Pulse Oximetry 95 96 94 L 04/08/18 14:00 04/08/18 14:06 04/08/18 15:00 Temperature 99.1 F 99.0 F 98.8 F Pulse Rate 102 H 94 H 119 H Respiratory Rate 16 14 17 Blood Pressure 116/66 Pulse Oximetry 95 94 L 97 04/08/18 15:06 04/08/18 15:20 04/08/18 15:45 Temperature 98.8 F 98.8 F Pulse Rate 123 H 97 H Respiratory Rate 19 16 18 Blood Pressure 190/97 H 106/67 Pulse Oximetry 97 95 94 L 04/08/18 16:00 04/08/18 16:06 04/08/18 16:09 Temperature 99.0 F 98.8 F 98.8 F Pulse Rate 109 H 124 H 121 H Respiratory Rate 21 26 H 36 H Blood Pressure 185/98 H 170/105 H Pulse Oximetry 100 99 97 04/08/18 16:10 04/08/18 17:00 04/08/18 17:06 Temperature 98.8 F 99.0 F 99.1 F Pulse Rate 124 H 92 H 86 Respiratory Rate 29 H 18 18 Blood Pressure 158/87 H 75/52 L Pulse Oximetry 97 99 99 04/08/18 17:07 04/08/18 17:08 04/08/18 17:32 Temperature 99.1 F 99.1 F Pulse Rate 87 89 92 H Respiratory Rate 18 18 Blood Pressure 74/49 L 77/51 L Pulse Oximetry 100 Intake & Output 04/07/18 04/08/18 04/08/18 18:59 06:59 18:59 Intake Total 2075 / 2075 1085 / 1085 3328.9 / 3328.9 Output Total 550 / 550 550 / 550 700 / 700 Balance 1525 / 1525 535 / 535 2628.9 / 2628.9 Weight 85.8 kg Intake: IV 885 / 885 250 / 250 2002.9 / 2002.9 Precedex Inj 1,000 MCG In NS 500 / 500 250 / 250 500 / 500 Inj 240 ML @ 0.2 MCG/KG/HR 4.31 mls/hr IV.CONT TITRATE PRN Rx# :[id number] Diprivan 1000 mg/100 ml Inj 1, 52.9 / 52.9 000 mg In 100 ml @ 5 MCG/KG/MIN 2.547 mls/hr IV.CONT TITRATE PRN Rx#:[id number] NS Inj 1,000 ML @ 30 mls/hr IV. 385 / 385 1000 / 1000 CONT .Q24H GIGI Rx#:[id number] KCl 40 mEq Premix Inj 40 meq In 100 / 100 100 ml @ 25 mls/hr IV.SIG Q2H PRN Rx#:[id number] Rocephin Inj 2,000 MG In NS Inj 100 / 100 100 ML @ 200 mls/hr IV.SIG Q24H GIGI Rx#:[id number] fentaNYL 10 mcg/mL Premix Drip 250 / 250 2,500 mcg In 250 ml @ 50 MCG/HR 5 mls/hr IV.SIG TITRATE PRN Rx #:[id number] Tube Feeding 740 / 740 575 / 575 676 / 676 Tube Irrigant 60 / 60 Water Bolus Amount 450 / 450 200 / 200 650 / 650 Output: Urine Amount (Catheter) 550 / 550 550 / 550 700 / 700 Indwelling Urethral Catheter 550 / 550 550 / 550 700 / 700 Other: Date of Last Bowel Movement 04/07/18 04/08/18 04/08/18 # Bowel Movements 2 2 3 # Incontinent Bowel Movements 2 Narrative: awake alert and remains intubated and on ventilator support GENERAL: Averagely built elderly white male SKIN: Warm and dry. HEAD: Atraumatic. Normocephalic. EYES: Pupils equal and round. No scleral icterus. No injection or drainage. ENT: No nasal bleeding or discharge. Mucous membranes pink and moist. NECK: Trachea midline. No JVD. CARDIOVASCULAR: Regular rate and rhythm. RESPIRATORY: No accessory muscle use. Clear to auscultation. Breath sounds equal bilaterally. GASTROINTESTINAL: Abdomen soft, non-tender, nondistended. Hepatic and splenic margins not palpable. MUSCULOSKELETAL: Extremities without clubbing, cyanosis, or edema. No obvious deformities. NEUROLOGICAL: Awake and responds. Motor grossly within normal limits. PSYCHIATRIC: Cannot assess - Urinary Catheter Management Indwelling Urethral Catheter Cath placed during this visit: yes Reason for continuing: Hourly intake/output Insertion date: 03/31/18 Insertion time: 18:00 Results - Labs CBC & Chem 7: 04/07/18 04:00 04/07/18 04:00 Laboratory Results - last 24 hr 04/05/18 04/08/18 10:36 05:30 Striated Muscle Ab Ttr ND Striated Muscle Ab Negative Hepatitis A IgM Ab Nonreactive Hep Bs Antigen Nonreactive Hep B Core IgM Ab Nonreactive Hep C IgG Ab Nonreactive - Imaging Impressions Chest X-Ray 04/08/18 16:38 CONCLUSION: No significant interval change. Mild patchy bilateral lower lung opacity. Assessment and Plan - Assessment (1) Respiratory failure Code(s): J96.90 - Respiratory failure, unspecified, unspecified whether with hypoxia or hypercapnia Status: Acute (2) Atelectasis Code(s): J98.11 - Atelectasis Status: Acute (3) Neck pain, chronic Code(s): M54.2 - Cervicalgia; G89.29 - Other chronic pain Status: Chronic (4) Other cervical disc degeneration at C5-C6 level Code(s): M50.322 - Other cervical disc degeneration at C5-C6 level Status: Chronic (5) Protrusion of cervical intervertebral disc Code(s): M50.20 - Other cervical disc displacement, unspecified cervical region Status: Chronic (6) Adult failure to thrive Code(s): R62.7 - Adult failure to thrive Status: Acute (7) Shortness of breath Code(s): R06.02 - Shortness of breath Status: Acute (8) Weakness generalized Code(s): R53.1 - Weakness Status: Acute (9) Acute hyponatremia Code(s): E87.1 - Hypo-osmolality and hyponatremia Status: Acute (10) Ventilator dependent Code(s): Z99.11 - Dependence on respirator [ventilator] status Status: Acute - Plan #1 wean vent to CPAP 5 x 12 cm and FiO2 35% #2 respiratory parameters and ABGs 3. Continue tube feeds at 50 cc/h 4. DuoNeb nebs every 6 hours as needed 5. Stop sedation 6. Tracheal lavage and suction as needed 7. Continue Lovenox 40 mg subcu daily 8. Continue Rocephin 2 g IV daily 9. CBC BMP in a.m. 10. Continue theophylline 200 mg twice daily via OG tube 11. PT evaluation
[2018-04-08 18:55] LABS: ABG Base Excess 3.6 mmol/L (-2-2); ABG PCO2 36 mmHg (38-42); ABG PO2 121 mmHg (61-120)
--- NOTE | 2018-04-09 05:26 | XR ---
EXAM DATE: 04/09/2018 5:22 AM EST AGE/SEX: 67 years / Male INDICATIONS: Respiratory failure. CLINICAL DATA: This is the patient's subsequent encounter. Patient reports that signs and symptoms h ave been present for 1 week and indicates a pain score of Nonresponsive. MEDICAL/SURGICAL HISTORY: Gastroesophageal reflux disease. Sepsis. Inguinal hernia repair. Jasiel rodiscetomy. COMPARISON: [facility], CHEST 1V SINGLE AP, 04/08/2018. . FINDINGS: Stable ETT and NGT. Mild bilateral lower lobe airspace disease unchanged from prior exam. Cardiomedia stinal contours are within normal limits. Remainder of exam is unchanged. CONCLUSION: 1. No significant interval change. 2. Stable ETT and NGT. 3. Mild bilateral lower lobe patchy airspace disease. Electronically signed by: Leo Ramirez MD Board Certified Radiologist 04/09/2018 5:24 AM EST
[2018-04-09] MEDS: Polyethylene Glycol 3350 17 GM Packet PO SCH ×3 (05:34→20:15)
[2018-04-09] MEDS: Senna/Docusate Sodium 8.6/50 MG Tablet PO SCH ×3 (05:34→23:49)
[2018-04-09] MEDS: Levothyroxine 125 MCG Tablet PO SCH (05:35)
[2018-04-09] MEDS: Dexmedetomidine Inj 1,000 MCG in Sodium Chlor 0.9% Inj 240 ML IV.CONT PRN ×2 (05:36→20:53)
[2018-04-09] MEDS: Artificial Tears Opth Drops 15 ML Bottle EACH EYE SCH ×3 (05:37→16:31)
[2018-04-09] MEDS: Oral Hygiene Kit OROPHARYNG SCH ×4 (05:37→23:50)
[2018-04-09 05:44] LABS: Baso % (Auto) 0.3 % (0.0-2.0); Eos % (Auto) 0.5 % (0.0-4.0); Hemoglobin 12.3 gm/dL (13.0-17.0); Lymph # (Auto) 0.8 th/mm3 (1.0-4.8); Lymph % (Auto) 7.2 % (9.0-44.0); Mean Corpuscular HGB Conc 34.2 % (32.0-36.0); Mean Corpuscular Hemoglobin 31.6 pg (27.0-34.0); Mean Corpuscular Volume 92.5 fL (80.0-100.0); Mean Platelet Volume 8.1 fL (7.0-11.0); Mono # (Auto) 1.1 th/mm3 (0.0-0.9); Neut # (Auto) 8.7 th/mm3 (1.8-7.7); Platelet Count 347 th/mm3 (150-450); Red Blood Count 3.89 mil/mm3 (4.50-5.90); Red Cell Distribution Width 14.9 % (11.6-17.2); White Blood Count 10.6 th/mm3 (4.0-11.0)
[2018-04-09 06:11] LABS: Alanine Aminotransferase 198 U/L (12-78); Albumin 2.9 g/dL (3.4-5.0); Alkaline Phosphatase 77 U/L (45-117); Anion Gap 10 meq/L (5-15); Aspartate Aminotransferase 87 U/L (15-37); Blood Urea Nitrogen 36 mg/dL (7-18); Calcium 8.7 mg/dL (8.5-10.1); Carbon Dioxide 27.2 meq/L (21.0-32.0); Chloride 118 meq/L (98-107); Glomerular Filtration Rate 51 mL/min (>89); Glucose,Random 147 mg/dL (74-106); Magnesium 2.8 mg/dL (1.5-2.5); Phosphorus 3.4 mg/dL (2.5-4.9); Potassium 3.2 meq/L (3.5-5.1); Sodium 155 meq/L (136-145); Theophylline 3.7 mcg/mL (10.0-20.0); Total Protein 6.4 g/dL (6.4-8.2)
[2018-04-09] MEDS: Famotidine PF Inj 20 MG/2 ML Vial IV.PUSH SCH ×2 (08:16→20:17)
[2018-04-09] MEDS: Acetaminophen 325 MG Tablet PO PRN (08:16)
[2018-04-09] MEDS: Enoxaparin Inj 40 MG/0.4 ML Syringe SQ SCH (08:16)
[2018-04-09] MEDS: Theophylline ER 24 HR 200 MG Capsule NG/OG SCH (08:16)
[2018-04-09] MEDS: Chlorhexidine 0.12% Oral Kit 15 ML UDC OROPHARYNG SCH ×2 (08:17→20:14)
[2018-04-09] MEDS: Lisinopril 5 MG Tablet PO SCH ×2 (08:17→09:27)
--- NOTE | 2018-04-09 09:03 | P.PNCC ---
Subjective Subjective Remarks/Hospital Course: This 67-year-old came into the emergency room today with his and daughter. On 02/13/2018, he had a microdiscectomy, C5-C6, by Dr. Schwarz. He was discharged home the next day. A few days after, he had not been feeling well, short of breath, disoriented, generally weak, symptoms were getting worse, disorientation was worse. He was referred to emergency department by his primary care physician for an evaluation. In the ED he was found to be in severe hypercarbic respiratory acidosis and was intubated by ED attending. 04/01: CO2 retention corrected. Remains mildly alkalotic due to chronic CO2 elevation. PH normalized. Still requiring vasopressor therapy with norepinephrine. Broad-spectrum antibiotic coverage started. Lumbar puncture performed with opening pressure 20 and crystal-clear fluid, sent for cell counts , chemistries and culture. HSV included. One extra tube sent for future studies if necessary. Ammonia level 71 - repeat daily. 04/02: CSF appears benign. Repeat ammonia level normal. Gamma GT normal. Cardiac echo estimated of 45% ejection fraction requires a little additional investigation -patient has been chronically short of breath for several weeks now. Leukocytosis and left shift persists. Gram-positive cocci and white cells seen in sputum. This man clearly became acutely and critically ill - exact cause still eludes us. 04/03: Leukocytosis improved. Remains quite rigid when stimulated. Continues to move 4 limbs with purpose and follows commands with 4 limbs. Sputum demonstrates white blood cells and gram-negative rods. 04/04: Improved color and perfusion. Extubated yesterday afternoon but failed after about 45 minutes -developed somnolence then obtundation, appeared to be having difficulty taking a breath, concern for vocal cord dysfunction. On reintubation the cord edges were irregular but otherwise normal in appearance. I could not assess cord function as patient was not alert enough to cooperate with commands. We will definitely pursue possibilities of vocal cord dysfunction and or phrenic nerve paralysis once we get him extubated. Ideally, a sniff test under fluoroscopy would demonstrate any paradoxical diaphragm motion. 04/05: Afebrile. Neurologically appears intact. Daughter concerned about "appears distant" however on 40 mcg/kg/min of propofol and 250 mcg an hour fentanyl. No bowel movement since admission. Tube feeding only at 20 cc an hour. 04/06: Afebrile. Neurologically intact. Following commands.. Positive BM. Labile blood pressures yesterday. Replace potassium currently. 04/07: Patient writing notes today. Chest x-ray clear. Elevated left diaphragm , probably dysfunctional. Continued encephalopathy and generalized weakness crhis very concerning. We will try Aminophyllin today to see if we can get some diaphragm and central nervous system stimulation. 04/08: Started on theophylline yesterday. Check level in a.m. Will attempt PSV trial today. Noted pulmonology requests possible T-bar with ABG when appropriate. Afebrile. SUBJECTIVE: 04/09: T-max 100. theophylline currently 3.7. Currently on CPAP trials. 02/18. 45%. Check ABG at 10 today. Desaturated yesterday currently back at 40%. Objective Vital Signs / I&O: Vital Signs 04/08/18 09:06 04/08/18 09:51 04/08/18 10:00 Temperature 99.0 F 99.1 F 99.3 F Pulse Rate 88 82 90 Respiratory Rate 12 12 13 Blood Pressure 89/62 L 91/60 L Pulse Oximetry 94 L 95 95 04/08/18 10:06 04/08/18 11:00 04/08/18 11:06 Temperature 99.1 F 99.3 F 99.3 F Pulse Rate 92 H 111 H 75 Respiratory Rate 13 19 12 Blood Pressure 127/76 98/62 L Pulse Oximetry 96 96 96 04/08/18 11:48 04/08/18 12:00 04/08/18 12:06 Temperature 99.3 F 99.3 F Pulse Rate 73 94 H 104 H Respiratory Rate 17 21 Blood Pressure 157/84 H Pulse Oximetry 96 96 04/08/18 12:29 04/08/18 13:00 04/08/18 13:06 Temperature 99.0 F 99.0 F Pulse Rate 95 H 93 H Respiratory Rate 19 17 14 Blood Pressure 88/50 L Pulse Oximetry 95 96 94 L 04/08/18 14:00 04/08/18 14:06 04/08/18 15:00 Temperature 99.1 F 99.0 F 98.8 F Pulse Rate 102 H 94 H 119 H Respiratory Rate 16 14 17 Blood Pressure 116/66 Pulse Oximetry 95 94 L 97 04/08/18 15:06 04/08/18 15:20 04/08/18 15:45 Temperature 98.8 F 98.8 F Pulse Rate 123 H 97 H Respiratory Rate 19 16 18 Blood Pressure 190/97 H 106/67 Pulse Oximetry 97 95 94 L 04/08/18 16:00 04/08/18 16:06 04/08/18 16:09 Temperature 99.0 F 98.8 F 98.8 F Pulse Rate 109 H 124 H 121 H Respiratory Rate 21 26 H 36 H Blood Pressure 185/98 H 170/105 H Pulse Oximetry 100 99 97 04/08/18 16:10 04/08/18 17:00 04/08/18 17:06 Temperature 98.8 F 99.0 F 99.1 F Pulse Rate 124 H 92 H 86 Respiratory Rate 29 H 18 18 Blood Pressure 158/87 H 75/52 L Pulse Oximetry 97 99 99 04/08/18 17:07 04/08/18 17:08 04/08/18 17:32 Temperature 99.1 F 99.1 F Pulse Rate 87 89 92 H Respiratory Rate 18 18 Blood Pressure 74/49 L 77/51 L Pulse Oximetry 100 04/08/18 18:00 04/08/18 19:00 04/08/18 20:00 Temperature 100.0 F H 99.0 F 98.8 F Pulse Rate 125 H 93 H 96 H Respiratory Rate 23 16 16 Blood Pressure 87/57 L 85/52 L 117/62 Pulse Oximetry 95 93 L 94 L 04/08/18 20:36 04/08/18 21:00 04/08/18 22:00 Temperature 99.5 F 99.7 F H Pulse Rate 113 H 108 H 108 H Respiratory Rate 16 16 16 Blood Pressure 103/58 L 106/62 Pulse Oximetry 95 96 04/08/18 23:00 04/08/18 23:32 04/09/18 00:00 Temperature 99.0 F 96.4 F L Pulse Rate 105 H 113 H 112 H Respiratory Rate 16 17 16 Blood Pressure 92/56 L 90/64 L Pulse Oximetry 94 L 96 04/09/18 00:12 04/09/18 01:00 04/09/18 02:00 Temperature 98.2 F Pulse Rate 96 H 85 Respiratory Rate 17 16 16 Blood Pressure 82/56 L Pulse Oximetry 96 79 L 95 04/09/18 03:00 04/09/18 03:44 04/09/18 04:00 Temperature 96.6 F L 99.9 F H Pulse Rate 92 H 105 H 104 H Respiratory Rate 16 18 16 Blood Pressure 126/86 133/78 Pulse Oximetry 96 98 04/09/18 04:11 04/09/18 05:00 04/09/18 06:00 Temperature 100.0 F H 100.0 F H Pulse Rate 111 H 104 H Respiratory Rate 18 16 16 Blood Pressure 152/83 H 88/61 L Pulse Oximetry 98 95 91 L 04/09/18 07:00 04/09/18 08:00 Temperature Pulse Rate 87 Respiratory Rate 16 16 Blood Pressure Pulse Oximetry 95 Intake & Output 04/08/18 04/09/18 04/09/18 18:59 06:59 18:59 Intake Total 3328.9 / 3328.9 1335 / 1335 Output Total 700 / 700 250 / 250 Balance 2628.9 / 2628.9 1085 / 1085 Weight 86.2 kg Intake: IV 2001. / 2001. 250 / 250 Precedex Inj 1,000 MCG In NS 500 / 500 250 / 250 Inj 240 ML @ 0.2 MCG/KG/HR 4.31 mls/hr IV.CONT TITRATE PRN Rx# :[id number] Diprivan 1000 mg/100 ml Inj 1, 52.9 / 52.9 000 mg In 100 ml @ 5 MCG/KG/MIN 2.547 mls/hr IV.CONT TITRATE PRN Rx#:[id number] NS Inj 1,000 ML @ 30 mls/hr IV. 1000 / 1000 CONT .Q24H GIGI Rx#:[id number] KCl 40 mEq Premix Inj 40 meq In 100 / 100 100 ml @ 25 mls/hr IV.SIG Q2H PRN Rx#:[id number] Rocephin Inj 2,000 MG In NS Inj 100 / 100 100 ML @ 200 mls/hr IV.SIG Q24H GIGI Rx#:[id number] fentaNYL 10 mcg/mL Premix Drip 250 / 250 2,500 mcg In 250 ml @ 50 MCG/HR 5 mls/hr IV.SIG TITRATE PRN Rx #:[id number] Tube Feeding 676 / 676 685 / 685 Water Bolus Amount 650 / 650 400 / 400 Output: Urine Amount (Catheter) 700 / 700 250 / 250 Indwelling Urethral Catheter 700 / 700 250 / 250 Other: Date of Last Bowel Movement 04/08/18 04/08/18 # Bowel Movements 3 0 Result Diagrams: 04/09/18 05:05 04/09/18 05:05 Other Results: Microbiology 03/31/18 19:04 Blood - Peripheral Aerobic Blood Culture - Final No growth in 5 days 03/31/18 19:04 Blood - Peripheral Anaerobic Blood Culture - Final No growth in 5 days 03/31/18 19:09 Blood - Peripheral Aerobic Blood Culture - Final No growth in 5 days 03/31/18 19:09 Blood - Peripheral Anaerobic Blood Culture - Final No growth in 5 days 04/01/18 18:15 Lumbar Puncture Gram Stain - Final 04/01/18 18:15 Lumbar Puncture CSF Culture - Final No growth in 72 hours 04/01/18 06:00 Sputum - Endotracheal Gram Stain - Final 04/01/18 06:00 Sputum - Endotracheal Sputum Culture - Final Klebsiella oxytoca 04/01/18 06:00 Nasal Wash Influenza Types A,B Antigen - Final Negative for FLU A and B antigen Infection due to influenza A or B cannot be ruled out since the antigen present in the sample may be below the detection limit of the test. Imaging: Head MRI 03/31/18 00:00 CONCLUSION: Negative exam Chest X-Ray 03/31/18 12:15 CONCLUSION: 1. Hypoinflation with probable atelectatic changes above the left hemidiaphragm. 2. Otherwise, no acute cardiopulmonary process. Head CT 03/31/18 12:16 CONCLUSION: 1. Negative CT Head non contrast. . Chest CTA 03/31/18 14:39 CONCLUSION: 1. Bibasilar atelectatic changes, left greater than right. No confluent infiltrate. 2. No pulmonary embolus. 3. Atherosclerotic calcification of the coronary arteries. Chest X-Ray 03/31/18 16:11 CONCLUSION: 1. Hypoinflation with persistent left basilar atelectasis. 2. Endotracheal tube tip at the clavicular heads, above the duane. Cervical Spine MRI 03/31/18 16:17 CONCLUSION: 1. Status post fusion at the C5-C6 level. There is susceptibility artifact from the hardware. 2. A significant area of stenosis in the thecal sac is not seen. 3. Facet hypertrophy seen throughout with scattered areas of neural foraminal narrowing as described above. 4. The patient is intubated with fluid in the hypopharynx, laryngeal pharynx, and upper trachea around the ET tube and above the tracheal ET tube cuff. 5. The does appear to be some mild soft tissue swelling in the prevertebral region best seen on the sagittal images. Chest X-Ray 04/01/18 04:29 CONCLUSION: 1. Nasogastric tube and left subclavian central venous catheter now in place. 2. Mild bilateral lower lung zone atelectasis unchanged. No evidence of pneumothorax. Chest X-Ray 04/02/18 04:00 CONCLUSION: No significant interval change. Mild bilateral lower lung zone atelectasis. Chest X-Ray 04/04/18 00:00 CONCLUSION: Stable chest. Persistent bibasilar patchy opacities. Chest X-Ray 04/06/18 06:00 CONCLUSION: Some improvement in the bibasilar consolidations. Chest X-Ray 04/07/18 06:00 CONCLUSION: ET tube in good position. Lungs are grossly clear. Chest X-Ray 04/08/18 16:38 CONCLUSION: No significant interval change. Mild patchy bilateral lower lung opacity. Chest X-Ray 04/09/18 06:00 CONCLUSION: 1. No significant interval change. 2. Stable ETT and NGT. 3. Mild bilateral lower lobe patchy airspace disease. Objective Remarks: GENERAL: 67-year-old male currently orotracheally intubated in no acute distress SKIN: Warm and dry. HEAD: Atraumatic. Normocephalic. EYES: Pupils equal and round. No scleral icterus. No injection or drainage. ENT: No nasal bleeding or discharge. Mucous membranes pink and moist. NECK: Trachea midline. No JVD. CARDIOVASCULAR: Tachycardic, RR. S1, S2 no S4. RESPIRATORY: Raises shoulders to take spontaneous breaths. Clear to auscultation. Breath sounds equal bilaterally. GASTROINTESTINAL: Abdomen soft, non-tender, nondistended. Bowel sounds active. MUSCULOSKELETAL: Extremities without clubbing, cyanosis, trace to 1+ edema. No obvious deformities. NEUROLOGICAL: Follows commands and moves extremities to command. Assessment and Plan - Assessment and Plan Plan: Neuro/Psych: History of anterior C5/6 microdiscectomy with fusion Currently on dexmedetomidine l drips at 1 mg/kg/h for ventilator synchrony while intubated Goal of RA SS 0 Daily sedation vacation Evaluate by neurosurgery/Dr. Viera. No intervention planned at this time CT brain/MRI C-spine negative EEG revealed no epileptic activity Neurology following. Recommend myasthenia gravis lab. Negative today. For accurate evaluation when stable Left diaphragm remains elevated, suspect not functioning well. CV: Systolic heart failure unknown if acute or chronic Essential hypertension Hyperlipidemia Ejection fraction 45% on admission. Appreciate cardiac evaluation by Dr. Escobedo. No plans at this time Holding amlodipine 10 mg daily, and metoprolol tartrate 12.5 mg twice daily for hypertension currently on 2.5 mg daily : Continue pravastatin 40 mg daily for dyslipidemia. Continue aspirin 81 mg by mouth daily. Resp: Acute hypercapnic respiratory failure Klebsiella oxycodone pneumonia PRVC ventilation Ventilator bundle Head of bed at 30 degrees Albuterol/ipratropium aerosols every 4 hours with albuterol aerosols every 2 hours as needed dyspnea Spontaneous breathing trials once clinically indicated Will need sniff test to assess diaphragmatic function once extubated We will consult ENT to assess vocal cords when appropriate Appreciate pulmonary input. Spontaneous breathing trial daily. May benefit from tracheostomy Start on theophylline 400 mg daily. Recheck level in a.m. 04/09 3.7 GI: Gastroesophageal reflux disease Transaminitis Hypoalbuminemia Currently on tube feeds at 40 cc an hour. At home on pantoprazole 40 mg daily. Currently on famotidine 20 mg IV twice daily Docusate sodium/senna 1 tablet twice daily for bowel regimen. On lactulose 30 cc twice daily. Add polyethylene glycol 17 g twice daily and methylnaltrexone x1 today. : Wood catheter if indicated for accurate I's and O's in a critical patient Converted to condom cath if possible. Endo: Hypothyroidism TSH 1.28. Continue levothyroxine 125 mg by mouth daily Sliding scale insulin if indicated to maintain euglycemia Renal: Creatinine currently within normal limits Accurate I's Monitor urine output Heme: Normocytic anemia Monitor CBC daily. Follow trends per No indication for transfusion of blood proximal to this time. ID: Klebsiella oxycodone pneumonia sputum 04/01 Currently on ceftriaxone per infectious disease. Lumbar puncture negative. HSV negative No growth to date on other cultures aside from sputum FEN: Hypernatremia Hyper magnesium Free water 200 cc every 6 hours. Replace electrolytes as clinically indicated per ICU electrolyte protocol. Recheck potassium 1700 hours. Receiving 80 mEq x1 now. Recheck electrolytes in a.m. MSK: PT evaluate and treat Access -Utilize peripheral IV. Prophylaxis -GI -famotidine -DVT -SCD/enoxaparin Overall impression: Remains quite weak and debilitated. We need to continue to work on nutrition and gentle weaning. His cough is so weak he may benefit from a tracheostomy for pulmonary toilet.
[2018-04-09] MEDS: Potassium Chloride Liq 20 MEQ/15 ML UDC PO PRN (09:59)
[2018-04-09 12:04] LABS: ABG Base Excess 3.1 mmol/L (-2-2); ABG PCO2 59 mmHg (38-42); ABG PO2 100 mmHg (61-120)
[2018-04-09] MEDS: Albumin Human 25% Inj 100 ML IV.SIG SCH ×2 (12:54→16:26)
[2018-04-09] MEDS: Sod Chloride 0.9% Inj 1,000 ML IV.CONT SCH (12:55)
--- NOTE | 2018-04-09 15:01 | P.PN ---
Subjective Interval history: He was agitated earlier today. Trying to pull at tubes. On CPAP and tolerating it. FiO2 is up to 40%. Denies shortness of breath. On tube feed. Physical Exam Vital signs: Vital Signs 04/08/18 15:00 04/08/18 15:06 04/08/18 15:20 Temperature 98.8 F 98.8 F 98.8 F Pulse Rate 119 H 123 H 97 H Respiratory Rate 17 19 16 Blood Pressure 190/97 H 106/67 Pulse Oximetry 97 97 95 04/08/18 15:45 04/08/18 16:00 04/08/18 16:06 Temperature 99.0 F 98.8 F Pulse Rate 109 H 124 H Respiratory Rate 18 21 26 H Blood Pressure 185/98 H Pulse Oximetry 94 L 100 99 04/08/18 16:09 04/08/18 16:10 04/08/18 17:00 Temperature 98.8 F 98.8 F 99.0 F Pulse Rate 121 H 124 H 92 H Respiratory Rate 36 H 29 H 18 Blood Pressure 170/105 H 158/87 H Pulse Oximetry 97 97 99 04/08/18 17:06 04/08/18 17:07 04/08/18 17:08 Temperature 99.1 F 99.1 F 99.1 F Pulse Rate 86 87 89 Respiratory Rate 18 18 18 Blood Pressure 75/52 L 74/49 L 77/51 L Pulse Oximetry 99 100 04/08/18 17:32 04/08/18 18:00 04/08/18 19:00 Temperature 100.0 F H 99.0 F Pulse Rate 92 H 125 H 93 H Respiratory Rate 23 16 Blood Pressure 87/57 L 85/52 L Pulse Oximetry 95 93 L 04/08/18 20:00 04/08/18 20:36 04/08/18 21:00 Temperature 98.8 F 99.5 F Pulse Rate 96 H 113 H 108 H Respiratory Rate 16 16 16 Blood Pressure 117/62 103/58 L Pulse Oximetry 94 L 95 04/08/18 22:00 04/08/18 23:00 04/08/18 23:32 Temperature 99.7 F H 99.0 F Pulse Rate 108 H 105 H 113 H Respiratory Rate 16 16 17 Blood Pressure 106/62 92/56 L Pulse Oximetry 96 94 L 04/09/18 00:00 04/09/18 00:12 04/09/18 01:00 Temperature 96.4 F L Pulse Rate 112 H 96 H Respiratory Rate 16 17 16 Blood Pressure 90/64 L Pulse Oximetry 96 96 79 L 04/09/18 02:00 04/09/18 03:00 04/09/18 03:44 Temperature 98.2 F 96.6 F L Pulse Rate 85 92 H 105 H Respiratory Rate 16 16 18 Blood Pressure 82/56 L 126/86 Pulse Oximetry 95 96 04/09/18 04:00 04/09/18 04:11 04/09/18 05:00 Temperature 99.9 F H 100.0 F H Pulse Rate 104 H 111 H Respiratory Rate 16 18 16 Blood Pressure 133/78 152/83 H Pulse Oximetry 98 98 95 04/09/18 06:00 04/09/18 06:06 04/09/18 06:15 Temperature 100.0 F H 100.0 F H 100.2 F H Pulse Rate 104 H 110 H 101 H Respiratory Rate 16 16 16 Blood Pressure 88/61 L Pulse Oximetry 91 L 93 L 94 L 04/09/18 06:30 04/09/18 06:45 04/09/18 07:00 Temperature 100.2 F H 100.2 F H 100.2 F H Pulse Rate 116 H 108 H 90 Respiratory Rate 16 16 16 Blood Pressure Pulse Oximetry 96 95 93 L 04/09/18 07:06 04/09/18 07:15 04/09/18 07:30 Temperature 100.2 F H 100.4 F H 100.4 F H Pulse Rate 96 H 85 81 Respiratory Rate 16 16 16 Blood Pressure 79/57 L Pulse Oximetry 95 95 96 04/09/18 07:45 04/09/18 08:00 04/09/18 08:06 Temperature 100.6 F H 100.6 F H 100.6 F H Pulse Rate 89 81 80 Respiratory Rate 16 16 16 Blood Pressure 71/50 L Pulse Oximetry 94 L 95 95 04/09/18 08:15 04/09/18 08:30 04/09/18 08:45 Temperature 100.6 F H 100.6 F H 100.2 F H Pulse Rate 79 109 H 133 H Respiratory Rate 16 17 23 Blood Pressure 152/86 H Pulse Oximetry 98 96 96 04/09/18 09:00 04/09/18 09:06 04/09/18 09:11 Temperature 99.9 F H 99.7 F H 99.7 F H Pulse Rate 144 H 146 H 147 H Respiratory Rate 21 22 34 H Blood Pressure 200/103 H 199/96 H Pulse Oximetry 96 96 95 04/09/18 09:15 04/09/18 09:26 04/09/18 09:30 Temperature 99.5 F 99.5 F 99.5 F Pulse Rate 143 H 142 H 142 H Respiratory Rate 28 H 28 H 27 H Blood Pressure 179/96 H Pulse Oximetry 95 95 95 04/09/18 09:45 04/09/18 10:00 04/09/18 10:06 Temperature 99.5 F 99.5 F 99.5 F Pulse Rate 139 H 135 H 133 H Respiratory Rate 27 H 25 H 24 Blood Pressure 146/76 H Pulse Oximetry 94 L 94 L 94 L 04/09/18 10:15 04/09/18 10:30 04/09/18 10:45 Temperature 99.5 F 99.5 F 99.5 F Pulse Rate 133 H 134 H 132 H Respiratory Rate 25 H 26 H 24 Blood Pressure Pulse Oximetry 94 L 93 L 94 L 04/09/18 11:00 04/09/18 11:06 04/09/18 11:15 Temperature 99.3 F 99.5 F 99.5 F Pulse Rate 120 H 107 H 128 H Respiratory Rate 24 18 24 Blood Pressure 73/49 L Pulse Oximetry 93 L 89 L 93 L 04/09/18 11:26 04/09/18 12:00 04/09/18 12:06 Temperature 99.3 F 99.5 F Pulse Rate 118 H 98 H Respiratory Rate 24 19 17 Blood Pressure 63/43 L Pulse Oximetry 92 L 93 L 87 L 04/09/18 12:12 04/09/18 13:00 04/09/18 13:06 Temperature 99.5 F 99.5 F 97.7 F Pulse Rate 130 H 135 H 140 H Respiratory Rate 24 27 H 29 H Blood Pressure 75/51 L 151/93 H Pulse Oximetry 94 L 96 99 04/09/18 14:00 04/09/18 14:06 Temperature 97.5 F L 97.5 F L Pulse Rate 130 H 133 H Respiratory Rate 24 27 H Blood Pressure 159/85 H Pulse Oximetry 98 98 Intake & Output 04/08/18 04/09/18 04/09/18 18:59 06:59 18:59 Intake Total 3328.9 / 3328.9 1335 / 1335 0 / 0 Output Total 700 / 700 250 / 250 Balance 2628.9 / 2628.9 1085 / 1085 0 / 0 Weight 86.2 kg Intake: IV 250 / 250 0 / 0 Precedex Inj 1,000 MCG In NS 500 / 500 250 / 250 Inj 240 ML @ 0.2 MCG/KG/HR 4.31 mls/hr IV.CONT TITRATE PRN Rx# :[id number] Diprivan 1000 mg/100 ml Inj 1, 52.9 / 52.9 000 mg In 100 ml @ 5 MCG/KG/MIN 2.547 mls/hr IV.CONT TITRATE PRN Rx#:[id number] NS Inj 1,000 ML @ 30 mls/hr IV. 1000 / 1000 0 / 0 CONT .Q24H GIGI Rx#:[id number] KCl 40 mEq Premix Inj 40 meq In 100 / 100 100 ml @ 25 mls/hr IV.SIG Q2H PRN Rx#:[id number] Rocephin Inj 2,000 MG In NS Inj 100 / 100 100 ML @ 200 mls/hr IV.SIG Q24H GIGI Rx#:[id number] fentaNYL 10 mcg/mL Premix Drip 250 / 250 2,500 mcg In 250 ml @ 50 MCG/HR 5 mls/hr IV.SIG TITRATE PRN Rx #:[id number] Tube Feeding 676 / 676 685 / 685 Water Bolus Amount 650 / 650 400 / 400 Output: Urine Amount (Catheter) 700 / 700 250 / 250 Indwelling Urethral Catheter 700 / 700 250 / 250 Other: Date of Last Bowel Movement 04/08/18 04/08/18 04/08/18 # Bowel Movements 3 0 Narrative: awake alert and remains intubated and on ventilator support GENERAL: Averagely built elderly white male SKIN: Warm and dry. HEAD: Atraumatic. Normocephalic. EYES: Pupils equal and round. No scleral icterus. No injection or drainage. ENT: No nasal bleeding or discharge. Mucous membranes pink and moist. NECK: Trachea midline. No JVD. CARDIOVASCULAR: Regular rate and rhythm. RESPIRATORY: No accessory muscle use. Occasional wheezes scattered bilaterally .breath sounds equal bilaterally. GASTROINTESTINAL: Abdomen soft, non-tender, nondistended. Hepatic and splenic margins not palpable. MUSCULOSKELETAL: Extremities without clubbing, cyanosis, or edema. No obvious deformities. NEUROLOGICAL: Awake and responds. Moves legs and squeezes with and hands. PSYCHIATRIC: Cannot assess - Urinary Catheter Management Indwelling Urethral Catheter Cath placed during this visit: yes Reason for continuing: Hourly intake/output Insertion date: 03/31/18 Insertion time: 18:00 Results - Labs CBC & Chem 7: 04/09/18 05:05 04/09/18 05:05 Laboratory Results - last 24 hr 04/08/18 04/09/18 04/09/18 17:05 05:05 05:05 WBC 10.6 RBC 3.89 L Hgb 12.3 L Hct 36.0 L MCV 92.5 MCH 31.6 MCHC 34.2 RDW 14.9 Plt Count 347 MPV 8.1 Neut % (Auto) 82.0 H Lymph % (Auto) 7.2 L Woodruff % (Auto) 10.0 H Eos % (Auto) 0.5 Baso % (Auto) 0.3 Neut # (Auto) 8.7 H Lymph # (Auto) 0.8 L Woodruff # (Auto) 1.1 H Eos # (Auto) 0.0 Baso # (Auto) 0.0 WBC Differential . Differential Comment Auto diff final Puncture Site Right radial Patient Temperature 98.6 O2 Saturation 97 ABG pH 7.49 H ABG pCO2 36 L ABG pO2 121 H ABG HCO3 27 H ABG O2 Content 18.6 ABG Base Excess 3.6 H ABG Methemoglobin 1.0 David Test Present Hemoglobin 13.5 Carboxyhemoglobin 0.8 O2 Delivery Device Ventilator Vent Setting Prvc ac Inspired O2 80 Critical Value No Sodium 155 H Potassium 3.2 L Chloride 118 H Carbon Dioxide 27.2 Anion Gap 10 BUN 36 H Creatinine 1.38 H Estimated GFR 51 L Random Glucose 147 H Calcium 8.7 Phosphorus 3.4 Magnesium 2.8 H Total Bilirubin 0.4 AST 87 H ALT 198 H Alkaline Phosphatase 77 Total Protein 6.4 Albumin 2.9 L Theophylline 3.7 L 04/09/18 11:54 WBC RBC Hgb Hct MCV MCH MCHC RDW Plt Count MPV Neut % (Auto) Lymph % (Auto) Woodruff % (Auto) Eos % (Auto) Baso % (Auto) Neut # (Auto) Lymph # (Auto) Woodruff # (Auto) Eos # (Auto) Baso # (Auto) WBC Differential Differential Comment Puncture Site Left radial Patient Temperature 98.6 O2 Saturation 95 ABG pH 7.31 L ABG pCO2 59 H* ABG pO2 100 ABG HCO3 29 H ABG O2 Content 17.7 ABG Base Excess 3.1 H ABG Methemoglobin 1.2 David Test Present Hemoglobin 13.2 Carboxyhemoglobin 0.7 O2 Delivery Device Ventilator Vent Setting Cpap 12/+8 Inspired O2 40 Critical Value Yes Sodium Potassium Chloride Carbon Dioxide Anion Gap BUN Creatinine Estimated GFR Random Glucose Calcium Phosphorus Magnesium Total Bilirubin AST ALT Alkaline Phosphatase Total Protein Albumin Theophylline - Imaging Impressions Chest X-Ray 04/08/18 16:38 CONCLUSION: No significant interval change. Mild patchy bilateral lower lung opacity. Chest X-Ray 04/09/18 06:00 CONCLUSION: 1. No significant interval change. 2. Stable ETT and NGT. 3. Mild bilateral lower lobe patchy airspace disease. Assessment and Plan - Assessment (1) Respiratory failure Code(s): J96.90 - Respiratory failure, unspecified, unspecified whether with hypoxia or hypercapnia Status: Acute (2) Atelectasis Code(s): J98.11 - Atelectasis Status: Acute (3) Neck pain, chronic Code(s): M54.2 - Cervicalgia; G89.29 - Other chronic pain Status: Chronic (4) Other cervical disc degeneration at C5-C6 level Code(s): M50.322 - Other cervical disc degeneration at C5-C6 level Status: Chronic (5) Protrusion of cervical intervertebral disc Code(s): M50.20 - Other cervical disc displacement, unspecified cervical region Status: Chronic (6) Adult failure to thrive Code(s): R62.7 - Adult failure to thrive Status: Acute (7) Shortness of breath Code(s): R06.02 - Shortness of breath Status: Acute (8) Weakness generalized Code(s): R53.1 - Weakness Status: Acute (9) Acute hyponatremia Code(s): E87.1 - Hypo-osmolality and hyponatremia Status: Acute (10) Ventilator dependent Code(s): Z99.11 - Dependence on respirator [ventilator] status Status: Acute - Plan #1 wean vent to CPAP 8 x 12 cm and FiO2 40% #2 respiratory parameters in a.m. 3. Continue tube feeds at 50 cc/h 4. DuoNeb nebs every 6 hours as needed 5. Precedex for sedation 6. Tracheal lavage and suction as needed 7. Continue Lovenox 40 mg subcu daily 8. Continue antibiotic 9. CBC BMP theophylline level in a.m. 10. Continue theophylline 200 mg twice daily via OG tube 11. PT evaluation
[2018-04-09] MEDS: fentaNYL 10 mcg/mL Premix Drip 2,500 MCG/250 ML BAG IV.SIG PRN (16:29)
--- NOTE | 2018-04-09 21:51 | XR ---
EXAM DATE: 04/09/2018 9:46 PM EST AGE/SEX: 67 years / Male INDICATIONS: OG tube placement. CLINICAL DATA: This is the patient's subsequent encounter. Patient reports that signs and symptoms h ave been present for 1 day and indicates a pain score of Nonresponsive. MEDICAL/SURGICAL HISTORY: . Thyroid disease . Microdiscectomy. Left inguinal hernia repair. . COMPARISON: No prior exams available for comparison. FINDINGS: Gastric tube is coiled within the stomach. There are gas containing loops of small and large bowel wi th small bowel loops measuring up to 6 cm in size. Degenerative changes of the lumbar spine. CONCLUSION: Gastric tube tip within the stomach. Electronically signed by: Poncho Bowles MD Board Certified Radiologist 04/09/2018 9:50 PM EST
[2018-04-10] MEDS: Artificial Tears Opth Drops 15 ML Bottle EACH EYE SCH ×3 (00:33→18:06)
[2018-04-10] MEDS: Propofol 1000 mg/100 ml Inj 1,000 MG/100 ML BOTTLE IV.CONT PRN (01:50)
[2018-04-10] MEDS ORDERED: Sodium Chlor 0.9% Inj 500 ML IV.CONT ONE (03:00)
[2018-04-10] MEDS: Oral Hygiene Kit OROPHARYNG SCH ×3 (05:23→17:57)
[2018-04-10 05:25] LABS: Hematocrit 34.7 % (39.0-51.0); Hemoglobin 11.4 gm/dL (13.0-17.0); Mean Corpuscular Hemoglobin 31.2 pg (27.0-34.0); Mean Corpuscular Volume 94.7 fL (80.0-100.0); Mean Platelet Volume 8.6 fL (7.0-11.0); Platelet Count 343 th/mm3 (150-450); Red Blood Count 3.66 mil/mm3 (4.50-5.90); Red Cell Distribution Width 15.2 % (11.6-17.2); White Blood Count 13.8 th/mm3 (4.0-11.0)
[2018-04-10] MEDS: Levothyroxine 125 MCG Tablet PO SCH (05:48)
[2018-04-10 05:56] LABS: Carbon Dioxide 27.6 meq/L (21.0-32.0); Potassium 3.4 meq/L (3.5-5.1)
[2018-04-10] MEDS ORDERED: Phenylephrine Inj 160 MG in Sodium Chlor 0.9% Inj 484 ML IV.CONT PRN (07:58)
[2018-04-10] MEDS ORDERED: Sodium Chloride 0.45 % Inj 1,000 ML IV.SIG ONE (07:59)
[2018-04-10] MEDS ORDERED: Potassium Chloride 25 MEQ Effervescent Tablet PO ONE (08:31)
--- NOTE | 2018-04-10 08:35 | P.PNCC ---
Subjective Subjective Remarks/Hospital Course: This 67-year-old came into the emergency room today with his and daughter. On 02/13/2018, he had a microdiscectomy, C5-C6, by Dr. Schwarz. He was discharged home the next day. A few days after, he had not been feeling well, short of breath, disoriented, generally weak, symptoms were getting worse, disorientation was worse. He was referred to emergency department by his primary care physician for an evaluation. In the ED he was found to be in severe hypercarbic respiratory acidosis and was intubated by ED attending. 04/01: CO2 retention corrected. Remains mildly alkalotic due to chronic CO2 elevation. PH normalized. Still requiring vasopressor therapy with norepinephrine. Broad-spectrum antibiotic coverage started. Lumbar puncture performed with opening pressure 20 and crystal-clear fluid, sent for cell counts , chemistries and culture. HSV included. One extra tube sent for future studies if necessary. Ammonia level 71 - repeat daily. 04/02: CSF appears benign. Repeat ammonia level normal. Gamma GT normal. Cardiac echo estimated of 45% ejection fraction requires a little additional investigation -patient has been chronically short of breath for several weeks now. Leukocytosis and left shift persists. Gram-positive cocci and white cells seen in sputum. This man clearly became acutely and critically ill - exact cause still eludes us. 04/03: Leukocytosis improved. Remains quite rigid when stimulated. Continues to move 4 limbs with purpose and follows commands with 4 limbs. Sputum demonstrates white blood cells and gram-negative rods. 04/04: Improved color and perfusion. Extubated yesterday afternoon but failed after about 45 minutes -developed somnolence then obtundation, appeared to be having difficulty taking a breath, concern for vocal cord dysfunction. On reintubation the cord edges were irregular but otherwise normal in appearance. I could not assess cord function as patient was not alert enough to cooperate with commands. We will definitely pursue possibilities of vocal cord dysfunction and or phrenic nerve paralysis once we get him extubated. Ideally, a sniff test under fluoroscopy would demonstrate any paradoxical diaphragm motion. 04/05: Afebrile. Neurologically appears intact. Daughter concerned about "appears distant" however on 40 mcg/kg/min of propofol and 250 mcg an hour fentanyl. No bowel movement since admission. Tube feeding only at 20 cc an hour. 04/06: Afebrile. Neurologically intact. Following commands.. Positive BM. Labile blood pressures yesterday. Replace potassium currently. 04/07: Patient writing notes today. Chest x-ray clear. Elevated left diaphragm , probably dysfunctional. Continued encephalopathy and generalized weakness chris very concerning. We will try Aminophyllin today to see if we can get some diaphragm and central nervous system stimulation. 04/08: Started on theophylline yesterday. Check level in a.m. Will attempt PSV trial today. Noted pulmonology requests possible T-bar with ABG when appropriate. Afebrile. 04/09: T-max 100. theophylline currently 3.7. Currently on CPAP trials. 02/18. 45%. Check ABG at 10 today. Desaturated yesterday currently back at 40%. SUBJECTIVE: 04/10: Resting in bed. Episode of nausea overnight. Negative workup. Evaluated positive BM 04/08. Patient more agitated overnight. Propofol discontinued due to hypotension. Currently on fentanyl drip. Theophylline. Creatinine currently 2.0 we will consult nephrology. Discontinue lisinopril. Receiving one half normal saline bolus currently. Objective Vital Signs / I&O: Vital Signs 04/09/18 08:45 04/09/18 09:00 04/09/18 09:06 Temperature 100.2 F H 99.9 F H 99.7 F H Pulse Rate 133 H 144 H 146 H Respiratory Rate 23 21 22 Blood Pressure 200/103 H Pulse Oximetry 96 96 96 04/09/18 09:11 04/09/18 09:15 04/09/18 09:26 Temperature 99.7 F H 99.5 F 99.5 F Pulse Rate 147 H 143 H 142 H Respiratory Rate 34 H 28 H 28 H Blood Pressure 199/96 H 179/96 H Pulse Oximetry 95 95 95 04/09/18 09:30 04/09/18 09:45 04/09/18 10:00 Temperature 99.5 F 99.5 F 99.5 F Pulse Rate 142 H 139 H 135 H Respiratory Rate 27 H 27 H 25 H Blood Pressure Pulse Oximetry 95 94 L 94 L 04/09/18 10:06 04/09/18 10:15 04/09/18 10:30 Temperature 99.5 F 99.5 F 99.5 F Pulse Rate 133 H 133 H 134 H Respiratory Rate 24 25 H 26 H Blood Pressure 146/76 H Pulse Oximetry 94 L 94 L 93 L 04/09/18 10:45 04/09/18 11:00 04/09/18 11:06 Temperature 99.5 F 99.3 F 99.5 F Pulse Rate 132 H 120 H 107 H Respiratory Rate 24 24 18 Blood Pressure 73/49 L Pulse Oximetry 94 L 93 L 89 L 04/09/18 11:15 04/09/18 11:26 04/09/18 12:00 Temperature 99.5 F 99.3 F Pulse Rate 128 H 118 H Respiratory Rate 24 24 19 Blood Pressure Pulse Oximetry 93 L 92 L 93 L 04/09/18 12:06 04/09/18 12:12 04/09/18 13:00 Temperature 99.5 F 99.5 F 99.5 F Pulse Rate 98 H 130 H 135 H Respiratory Rate 17 24 27 H Blood Pressure 63/43 L 75/51 L Pulse Oximetry 87 L 94 L 96 04/09/18 13:06 04/09/18 14:00 04/09/18 14:06 Temperature 97.7 F 97.5 F L 97.5 F L Pulse Rate 140 H 130 H 133 H Respiratory Rate 29 H 24 27 H Blood Pressure 151/93 H 159/85 H Pulse Oximetry 99 98 98 04/09/18 15:00 04/09/18 15:06 04/09/18 16:00 Temperature 95.9 F L 95.9 F L 99.0 F Pulse Rate 126 H 120 H 112 H Respiratory Rate 21 23 19 Blood Pressure 133/75 Pulse Oximetry 94 L 93 L 93 L 04/09/18 16:06 04/09/18 17:00 04/09/18 17:06 Temperature 99.0 F 98.6 F 98.6 F Pulse Rate 119 H 132 H 134 H Respiratory Rate 19 26 H 29 H Blood Pressure 139/77 202/105 H Pulse Oximetry 94 L 94 L 94 L 04/09/18 17:16 04/09/18 17:23 04/09/18 18:00 Temperature 98.6 F 98.8 F Pulse Rate 133 H 120 H 117 H Respiratory Rate 23 15 14 Blood Pressure 183/90 H Pulse Oximetry 94 L 92 L 04/09/18 18:06 04/09/18 19:00 04/09/18 20:00 Temperature 98.8 F 99.1 F 99.0 F Pulse Rate 118 H 93 H 120 H Respiratory Rate 13 12 12 Blood Pressure 143/72 H 108/62 152/89 H Pulse Oximetry 92 L 94 L 97 04/09/18 20:08 04/09/18 20:28 04/09/18 21:00 Temperature 99.3 F Pulse Rate 120 H 78 Respiratory Rate 13 13 12 Blood Pressure 167/116 H Pulse Oximetry 98 97 04/09/18 22:00 04/09/18 23:22 04/09/18 23:33 Temperature 99.7 F H 99.9 F H Pulse Rate 68 95 H 88 Respiratory Rate 12 12 12 Blood Pressure 131/102 H 96/60 L Pulse Oximetry 98 94 L 04/10/18 00:00 04/10/18 00:05 04/10/18 01:00 Temperature 99.5 F 99.3 F Pulse Rate 101 H 82 Respiratory Rate 12 12 12 Blood Pressure 121/74 75/51 L Pulse Oximetry 96 95 95 04/10/18 02:00 04/10/18 03:00 04/10/18 03:02 Temperature 99.1 F 99.9 F H Pulse Rate 122 H 98 H Respiratory Rate 14 12 Blood Pressure 113/67 52/35 L 50/35 L Pulse Oximetry 95 90 L 04/10/18 03:04 04/10/18 03:06 04/10/18 03:09 Temperature 99.9 F H 99.9 F H Pulse Rate 97 H 106 H Respiratory Rate 12 12 Blood Pressure 68/40 L 68/42 L 80/53 L Pulse Oximetry 94 L 94 L 04/10/18 03:14 04/10/18 03:17 04/10/18 03:25 Temperature Pulse Rate 110 H 113 H 112 H Respiratory Rate 12 12 12 Blood Pressure 87/53 L 114/60 112/63 Pulse Oximetry 95 97 98 04/10/18 03:31 04/10/18 03:32 04/10/18 03:46 Temperature 99.0 F Pulse Rate 113 H 115 H 111 H Respiratory Rate 12 12 12 Blood Pressure 119/65 111/66 Pulse Oximetry 96 98 04/10/18 04:00 04/10/18 04:16 04/10/18 04:18 Temperature 99.1 F 99.3 F Pulse Rate 119 H 119 H Respiratory Rate 14 12 12 Blood Pressure 129/75 123/74 Pulse Oximetry 99 98 98 01/28/19 05:00 04/10/18 05:31 04/10/18 05:46 Temperature 99.3 F 99.3 F 99.5 F Pulse Rate 135 H 136 H 139 H Respiratory Rate 12 12 12 Blood Pressure 140/84 143/74 H 165/81 H Pulse Oximetry 98 97 97 04/10/18 06:00 04/10/18 06:31 04/10/18 08:10 Temperature 99.5 F 99.7 F H Pulse Rate 151 H 128 H Respiratory Rate 29 H 12 12 Blood Pressure 174/83 H 94/58 L Pulse Oximetry 98 94 L 98 04/10/18 08:24 Temperature Pulse Rate 117 H Respiratory Rate 15 Blood Pressure Pulse Oximetry Intake & Output 04/09/18 04/10/18 04/10/18 18:59 06:59 18:59 Intake Total 1816 / 1816 1041 / 1041 Output Total 2200 / 2200 900 / 900 Balance -384 / -384 141 / 141 Weight 87.7 kg Intake: IV 516 / 516 500 / 500 Precedex Inj 1,000 MCG In NS 250 / 250 Inj 240 ML @ 0.2 MCG/KG/HR 4.31 mls/hr IV.CONT TITRATE PRN Rx# :[id number] NS Inj 1,000 ML @ 30 mls/hr IV. 0 / 0 CONT .Q24H COUNTS INCLUDE 234 BEDS AT THE [facility] Rx#:[id number] NS Inj 500 ML @ 500 mls/hr IV. 500 / 500 CONT .Q1H ONE Rx#:[id number] Flexbumin 25% Inj 100 ML @ 60 200 / 200 mls/hr IV.SIG Q100M COUNTS INCLUDE 234 BEDS AT THE [facility] Rx#: [id number] fentaNYL 10 mcg/mL Premix Drip 66 / 66 2,500 mcg In 250 ml @ 50 MCG/HR 5 mls/hr IV.SIG TITRATE PRN Rx #:[id number] Tube Feeding 700 / 700 281 / 281 Tube Irrigant 260 / 260 Water Bolus Amount 600 / 600 Output: Urine Amount (Catheter) 2200 / 2200 900 / 900 Indwelling Urethral Catheter 2200 / 2200 900 / 900 Other: Date of Last Bowel Movement 04/09/18 04/08/18 # Bowel Movements 1 Result Diagrams: 04/10/18 04:46 04/10/18 04:46 Other Results: Microbiology 03/31/18 19:04 Blood - Peripheral Aerobic Blood Culture - Final No growth in 5 days 03/31/18 19:04 Blood - Peripheral Anaerobic Blood Culture - Final No growth in 5 days 03/31/18 19:09 Blood - Peripheral Aerobic Blood Culture - Final No growth in 5 days 03/31/18 19:09 Blood - Peripheral Anaerobic Blood Culture - Final No growth in 5 days 04/01/18 18:15 Lumbar Puncture Gram Stain - Final 04/01/18 18:15 Lumbar Puncture CSF Culture - Final No growth in 72 hours 04/01/18 06:00 Sputum - Endotracheal Gram Stain - Final 04/01/18 06:00 Sputum - Endotracheal Sputum Culture - Final Klebsiella oxytoca 04/01/18 06:00 Nasal Wash Influenza Types A,B Antigen - Final Negative for FLU A and B antigen Infection due to influenza A or B cannot be ruled out since the antigen present in the sample may be below the detection limit of the test. Imaging: Head MRI 03/31/18 00:00 CONCLUSION: Negative exam Chest X-Ray 03/31/18 12:15 CONCLUSION: 1. Hypoinflation with probable atelectatic changes above the left hemidiaphragm. 2. Otherwise, no acute cardiopulmonary process. Head CT 03/31/18 12:16 CONCLUSION: 1. Negative CT Head non contrast. . Chest CTA 03/31/18 14:39 CONCLUSION: 1. Bibasilar atelectatic changes, left greater than right. No confluent infiltrate. 2. No pulmonary embolus. 3. Atherosclerotic calcification of the coronary arteries. Chest X-Ray 03/31/18 16:11 CONCLUSION: 1. Hypoinflation with persistent left basilar atelectasis. 2. Endotracheal tube tip at the clavicular heads, above the duane. Cervical Spine MRI 03/31/18 16:17 CONCLUSION: 1. Status post fusion at the C5-C6 level. There is susceptibility artifact from the hardware. 2. A significant area of stenosis in the thecal sac is not seen. 3. Facet hypertrophy seen throughout with scattered areas of neural foraminal narrowing as described above. 4. The patient is intubated with fluid in the hypopharynx, laryngeal pharynx, and upper trachea around the ET tube and above the tracheal ET tube cuff. 5. The does appear to be some mild soft tissue swelling in the prevertebral region best seen on the sagittal images. Chest X-Ray 04/01/18 04:29 CONCLUSION: 1. Nasogastric tube and left subclavian central venous catheter now in place. 2. Mild bilateral lower lung zone atelectasis unchanged. No evidence of pneumothorax. Chest X-Ray 04/02/18 04:00 CONCLUSION: No significant interval change. Mild bilateral lower lung zone atelectasis. Chest X-Ray 04/04/18 00:00 CONCLUSION: Stable chest. Persistent bibasilar patchy opacities. Chest X-Ray 04/06/18 06:00 CONCLUSION: Some improvement in the bibasilar consolidations. Chest X-Ray 04/07/18 06:00 CONCLUSION: ET tube in good position. Lungs are grossly clear. Chest X-Ray 04/08/18 16:38 CONCLUSION: No significant interval change. Mild patchy bilateral lower lung opacity. Chest X-Ray 04/09/18 06:00 CONCLUSION: 1. No significant interval change. 2. Stable ETT and NGT. 3. Mild bilateral lower lobe patchy airspace disease. Abdomen X-Ray 04/09/18 20:57 CONCLUSION: Gastric tube tip within the stomach. Objective Remarks: GENERAL: 67-year-old male currently orotracheally intubated in no acute distress SKIN: Warm and dry. HEAD: Atraumatic. Normocephalic. EYES: Pupils equal and round. No scleral icterus. No injection or drainage. ENT: No nasal bleeding or discharge. Mucous membranes pink and moist. NECK: Trachea midline. No JVD. CARDIOVASCULAR: Tachycardic, RR. S1, S2 no S4. RESPIRATORY: Raises shoulders to take spontaneous breaths. Clear to auscultation. Breath sounds equal bilaterally. GASTROINTESTINAL: Abdomen soft, non-tender, slightly firm. Bowel sounds active. MUSCULOSKELETAL: Extremities without clubbing, cyanosis, trace to 1+ edema. No obvious deformities. NEUROLOGICAL: Follows commands and moves extremities to command. Assessment and Plan - Assessment and Plan Plan: Neuro/Psych: History of anterior C5/6 microdiscectomy with fusion Currently on fentanyl drip at 250 mg an hour for vent synchrony Goal of RA SS 0 Daily sedation vacation Evaluate by neurosurgery/Dr. Viera. No intervention planned at this time CT brain/MRI C-spine negative EEG revealed no epileptic activity Neurology following. Recommend myasthenia gravis lab. Negative today. For accurate evaluation when stable Left diaphragm remains elevated, suspect not functioning well. CV: Systolic heart failure unknown if acute or chronic Essential hypertension Hyperlipidemia Ejection fraction 45% on admission. Appreciate cardiac evaluation by Dr. Escobedo. No plans at this time Holding amlodipine 10 mg daily, and metoprolol tartrate 12.5 mg twice daily for hypertension Holding clonidine 0.1 twice daily and lisinopril 5 mg daily in light of hypotension/lisinopril for acute kidney injury Continue pravastatin 40 mg daily for dyslipidemia. Continue aspirin 81 mg by mouth daily. Resp: Acute hypercapnic respiratory failure Klebsiella oxycodone pneumonia PRVC ventilation Ventilator bundle Head of bed at 30 degrees Albuterol/ipratropium aerosols every 4 hours with albuterol aerosols every 2 hours as needed dyspnea Spontaneous breathing trials once clinically indicated Will need sniff test to assess diaphragmatic function once extubated We will consult ENT to assess vocal cords when appropriate Appreciate pulmonary input. Spontaneous breathing trial daily. May benefit from tracheostomy We will discontinue theophylline 400 mg daily acute delirium. Noted level. 3.7 GI: Gastroesophageal reflux disease Transaminitis Hypoalbuminemia Currently on tube feeds but will switch from Jevity 1.5 to Nepro at 60 cc an hour due to acute kidney injury At home on pantoprazole 40 mg daily. Currently on lansoprazole 30 mg daily Docusate sodium/senna 1 tablet twice daily for bowel regimen. On lactulose 30 cc twice daily. Add polyethylene glycol 17 g twice daily and methylnaltrexone x1 today. : Wood catheter if indicated for accurate I's and O's in a critical patient Converted to condom cath if possible. Endo: Hypothyroidism TSH 1.28. Continue levothyroxine 125 mg by mouth daily Sliding scale insulin if indicated to maintain euglycemia Renal: Kidney injury - acute Creatinine currently 2.0 Check urine eosinophils, sodium and creatinine Renal ultrasound ordered Neurology consultation for evaluation Avoid nephrotoxic medication. Lisinopril discontinued. Accurate I's and O's Monitor urine output Heme: Normocytic anemia Leukocytosis Monitor CBC daily. Follow trends per No indication for transfusion of blood proximal to this time. ID: Klebsiella oxycodone pneumonia sputum 04/01 Currently repleted therapy with ceftriaxone per infectious disease. Lumbar puncture negative. HSV negative No growth to date on other cultures aside from sputum FEN: Hypernatremia Hyper magnesium Hypopotassemia Free water 200 cc every 6 hours. Replace electrolytes as clinically indicated per ICU electrolyte protocol. Receiving 50 mEq potassium chloride by tube x1 now. Recheck electrolytes in a.m. MSK: PT evaluate and treat Access -Utilize peripheral IV. Prophylaxis -GI -lansoprazole -DVT -SCD/enoxaparin Overall impression: Remains quite weak and debilitated. We need to continue to work on nutrition and gentle weaning. His cough is so weak he may benefit from a tracheostomy for pulmonary toilet. Daughter and and patient at bedside. Care plan discussed all questions answered.
[2018-04-10] MEDS: Chlorhexidine 0.12% Oral Kit 15 ML UDC OROPHARYNG SCH ×2 (08:39→20:24)
[2018-04-10] MEDS: Enoxaparin Inj 40 MG/0.4 ML Syringe SQ SCH (08:40)
[2018-04-10] MEDS: Potassium Chloride Liq 20 MEQ/15 ML UDC PO PRN (08:41)
[2018-04-10] MEDS: Polyethylene Glycol 3350 17 GM Packet PO SCH ×2 (08:42→20:24)
[2018-04-10] MEDS: Senna/Docusate Sodium 8.6/50 MG Tablet PO SCH ×2 (08:42→20:25)
[2018-04-10 08:53] LABS: Albumin 3.6 g/dL (3.4-5.0)
[2018-04-10 08:56] LABS: Total Protein 6.8 g/dL (6.4-8.2)
[2018-04-10] MEDS: fentaNYL 10 mcg/mL Premix Drip 2,500 MCG/250 ML BAG IV.SIG PRN ×2 (10:27→21:21)
[2018-04-10 11:13] LABS: Creatinine,Urine Random 96 mg/dL (27-300); Sodium,Urine Random 33 meq/L
--- NOTE | 2018-04-10 12:02 | US ---
EXAM DATE: 04/10/2018 11:54 AM EST AGE/SEX: 67 years / Male INDICATIONS: Increased BUN/Creatinine. CLINICAL DATA: This is the patient's initial encounter. Patient reports that signs and symptoms have been present for 1 day and indicates a pain score of 0/10. MEDICAL/SURGICAL HISTORY: Gastroesophageal reflux disease. Hyperlipidemia. Thyroid disease. In guinal hernia repair. Microdiscectomy. LASIK surgery. COMPARISON: [facility], CT ABDOMEN AND PELVIS W AND W/O CONTRAST, 03/29/2018. [facility], CT ABDOMEN AND PELVI S W AND W/O CONTRAST, 12/21/2016. . MEASUREMENTS: Right Kidney:__10.3 x 4.4 x 4.3 cm Left Kidney:__11.0 x 6.8 x 5.3 cm FINDINGS: Right Kidney: Hypoechoic mass is present coming off the right lower pole kidney not particularly cyst ic, and corresponds to the hypoechoic mass seen on the patient's prior CT may be a septated complicat ed cyst. Left Kidney: There is an approximate 1.5 cm cyst midpole. There is no hydronephrosis. Bladder: Wood catheter is present. Bladder decompressed. Other: There is an area of mixed inhomogeneous echogenicity which extends from right lower quadrant to right upper quadrant may be gas-filled loops of bowel and the patient's prior CT examination did n ot demonstrate any significant pathology at this site. CONCLUSION: 1. Probable complex cyst coming off the right lower pole kidney appears smaller since 2017 CT examin ation of the abdomen. Electronically signed by: Siomara Pollard MD Board Certified Radiologist 04/10/2018 12:01 PM EST
[2018-04-10] MEDS: Dexmedetomidine Inj 1,000 MCG in Sodium Chlor 0.9% Inj 240 ML IV.CONT PRN (12:52)
--- NOTE | 2018-04-10 16:52 | P.PNID ---
Subjective Remarks: events noted Hypotention earlier, tachycardia NO fever UOP dropped case was dw Dr Bell Antibiotics: Allergies/Adverse Reactions: Allergies Sulfa (Sulfonamide Antibiotics) Allergy (Severe, Verified 02/15/18 05:02) Nausea also flu like symptoms Objective Vital Signs 04/09/18 17:00 04/09/18 17:06 04/09/18 17:16 Temperature 98.6 F 98.6 F 98.6 F Pulse Rate 132 H 134 H 133 H Respiratory Rate 26 H 29 H 23 Blood Pressure 202/105 H 183/90 H Pulse Oximetry 94 L 94 L 94 L 04/09/18 17:23 04/09/18 18:00 04/09/18 18:06 Temperature 98.8 F 98.8 F Pulse Rate 120 H 117 H 118 H Respiratory Rate 15 14 13 Blood Pressure 143/72 H Pulse Oximetry 92 L 92 L 04/09/18 19:00 04/09/18 20:00 04/09/18 20:08 Temperature 99.1 F 99.0 F Pulse Rate 93 H 120 H Respiratory Rate 12 12 13 Blood Pressure 108/62 152/89 H Pulse Oximetry 94 L 97 98 04/09/18 20:28 04/09/18 21:00 04/09/18 22:00 Temperature 99.3 F 99.7 F H Pulse Rate 120 H 78 68 Respiratory Rate 13 12 12 Blood Pressure 167/116 H 131/102 H Pulse Oximetry 97 98 04/09/18 23:22 04/09/18 23:33 04/10/18 00:00 Temperature 99.9 F H 99.5 F Pulse Rate 95 H 88 101 H Respiratory Rate 12 12 12 Blood Pressure 96/60 L 121/74 Pulse Oximetry 94 L 96 04/10/18 00:05 04/10/18 01:00 04/10/18 02:00 Temperature 99.3 F 99.1 F Pulse Rate 82 122 H Respiratory Rate 12 12 14 Blood Pressure 75/51 L 113/67 Pulse Oximetry 95 95 95 04/10/18 03:00 04/10/18 03:02 04/10/18 03:04 Temperature 99.9 F H Pulse Rate 98 H Respiratory Rate 12 Blood Pressure 52/35 L 50/35 L 68/40 L Pulse Oximetry 90 L 04/10/18 03:06 04/10/18 03:09 04/10/18 03:14 Temperature 99.9 F H 99.9 F H Pulse Rate 97 H 106 H 110 H Respiratory Rate 12 12 12 Blood Pressure 68/42 L 80/53 L 87/53 L Pulse Oximetry 94 L 94 L 95 04/10/18 03:17 04/10/18 03:25 04/10/18 03:31 Temperature Pulse Rate 113 H 112 H 113 H Respiratory Rate 12 12 12 Blood Pressure 114/60 112/63 119/65 Pulse Oximetry 97 98 96 04/10/18 03:32 04/10/18 03:46 04/10/18 04:00 Temperature 99.0 F 99.1 F Pulse Rate 115 H 111 H 119 H Respiratory Rate 12 12 14 Blood Pressure 111/66 129/75 Pulse Oximetry 98 99 04/10/18 04:16 04/10/18 04:18 04/10/18 05:00 Temperature 99.3 F 99.3 F Pulse Rate 119 H 135 H Respiratory Rate 12 12 12 Blood Pressure 123/74 140/84 Pulse Oximetry 98 98 98 04/10/18 05:31 04/10/18 05:46 04/10/18 06:00 Temperature 99.3 F 99.5 F 99.5 F Pulse Rate 136 H 139 H 151 H Respiratory Rate 12 12 29 H Blood Pressure 143/74 H 165/81 H 174/83 H Pulse Oximetry 97 97 98 04/10/18 06:31 04/10/18 07:33 04/10/18 07:43 Temperature 99.7 F H 99.7 F H 99.7 F H Pulse Rate 128 H 105 H 94 H Respiratory Rate 12 12 12 Blood Pressure 94/58 L 71/47 L 63/41 L Pulse Oximetry 94 L 93 L 93 L 04/10/18 07:50 04/10/18 07:51 04/10/18 07:53 Temperature 99.7 F H 99.7 F H 99.7 F H Pulse Rate 89 90 109 H Respiratory Rate 12 12 14 Blood Pressure 59/38 L 62/47 L 104/60 Pulse Oximetry 93 L 93 L 93 L 04/10/18 08:00 04/10/18 08:03 04/10/18 08:10 Temperature 99.7 F H 99.7 F H Pulse Rate 100 H 100 H Respiratory Rate 12 12 12 Blood Pressure 79/51 L Pulse Oximetry 96 95 98 04/10/18 08:13 04/10/18 08:23 04/10/18 08:24 Temperature 99.5 F 99.3 F Pulse Rate 120 H 117 H 117 H Respiratory Rate 12 15 15 Blood Pressure 135/70 130/73 Pulse Oximetry 98 99 04/10/18 08:33 04/10/18 08:43 04/10/18 08:53 Temperature 99.3 F 99.3 F 99.1 F Pulse Rate 115 H 110 H 113 H Respiratory Rate 15 15 15 Blood Pressure 131/75 132/73 140/75 Pulse Oximetry 99 99 100 04/10/18 09:00 04/10/18 09:03 04/10/18 09:13 Temperature 99.1 F 99.1 F 99.1 F Pulse Rate 117 H 116 H 110 H Respiratory Rate 15 15 15 Blood Pressure 166/79 H 140/79 Pulse Oximetry 100 100 100 04/10/18 09:23 04/10/18 09:33 04/10/18 09:43 Temperature 99.1 F 99.0 F 99.0 F Pulse Rate 108 H 104 H 110 H Respiratory Rate 15 15 15 Blood Pressure 145/77 H 132/76 148/86 H Pulse Oximetry 100 99 100 04/10/18 09:53 04/10/18 10:00 04/10/18 10:03 Temperature 99.1 F 99.1 F 99.1 F Pulse Rate 113 H 121 H 131 H Respiratory Rate 15 15 22 Blood Pressure 150/85 H 156/81 H Pulse Oximetry 100 100 100 04/10/18 10:13 04/10/18 10:23 04/10/18 10:50 Temperature 99.3 F 99.0 F 98.8 F Pulse Rate 142 H 140 H 139 H Respiratory Rate 15 15 15 Blood Pressure 177/80 H 156/77 H Pulse Oximetry 97 94 L 91 L 04/10/18 11:00 04/10/18 11:05 04/10/18 11:20 Temperature 98.8 F 98.8 F 99.0 F Pulse Rate 134 H 131 H 127 H Respiratory Rate 15 15 15 Blood Pressure 111/62 107/61 Pulse Oximetry 92 L 92 L 92 L 04/10/18 11:35 04/10/18 11:50 04/10/18 12:00 Temperature 99.0 F 99.0 F 99.0 F Pulse Rate 123 H 130 H 125 H Respiratory Rate 15 16 15 Blood Pressure 113/61 152/70 H Pulse Oximetry 91 L 91 L 93 L 04/10/18 12:05 04/10/18 12:20 04/10/18 12:24 Temperature 99.0 F 99.0 F Pulse Rate 121 H 128 H Respiratory Rate 15 15 15 Blood Pressure 144/71 H 163/83 H Pulse Oximetry 92 L 93 L 93 L 04/10/18 12:35 04/10/18 12:50 04/10/18 13:00 Temperature 99.0 F 97.3 F L 97.3 F L Pulse Rate 135 H 136 H 131 H Respiratory Rate 15 15 15 Blood Pressure 166/88 H 141/85 H Pulse Oximetry 95 93 L 92 L 04/10/18 13:05 04/10/18 13:20 04/10/18 13:35 Temperature 97.3 F L 97.3 F L 97.5 F L Pulse Rate 126 H 129 H 123 H Respiratory Rate 15 15 15 Blood Pressure 143/73 H 146/76 H 138/73 Pulse Oximetry 92 L 93 L 91 L 04/10/18 13:50 04/10/18 14:00 04/10/18 14:05 Temperature 97.3 F L 97.5 F L 97.5 F L Pulse Rate 130 H 127 H 127 H Respiratory Rate 15 15 15 Blood Pressure 170/81 H 161/77 H Pulse Oximetry 93 L 93 L 93 L 04/10/18 14:20 04/10/18 14:35 04/10/18 14:50 Temperature 97.5 F L 97.5 F L 97.7 F Pulse Rate 125 H 128 H 116 H Respiratory Rate 15 15 15 Blood Pressure 151/72 H 161/83 H 112/59 L Pulse Oximetry 93 L 95 92 L 04/10/18 15:00 04/10/18 15:05 04/10/18 15:20 Temperature 97.7 F 97.7 F 97.7 F Pulse Rate 112 H 119 H 118 H Respiratory Rate 15 15 15 Blood Pressure 98/69 L 132/76 Pulse Oximetry 92 L 94 L 93 L Intake & Output 04/09/18 04/10/18 04/10/18 18:59 06:59 18:59 Intake Total 1816 / 1816 1041 / 1041 1316 / 1316 Output Total 2200 / 2200 900 / 900 Balance -384 / -384 141 / 141 1316 / 1316 Weight 87.7 kg Intake: IV 516 / 516 500 / 500 1316 / 1316 Precedex Inj 1,000 MCG In NS 250 / 250 250 / 250 Inj 240 ML @ 0.2 MCG/KG/HR 4.31 mls/hr IV.CONT TITRATE PRN Rx# :[id number] NS Inj 1,000 ML @ 30 mls/hr IV. 0 / 0 CONT .Q24H [facility] Rx#:[id number] NS Inj 500 ML @ 500 mls/hr IV. 500 / 500 CONT .Q1H [facility] Rx#:[id number] Flexbumin 25% Inj 100 ML @ 60 200 / 200 mls/hr IV.SIG Q100M [facility] Rx#: [id number] 1/2 Normal Saline Inj 1,000 ML 1000 / 1000 @ Wide Open IV.SIG BOLUS ONE Rx #:[id number] fentaNYL 10 mcg/mL Premix Drip 66 / 66 66 / 66 2,500 mcg In 250 ml @ 50 MCG/HR 5 mls/hr IV.SIG TITRATE PRN Rx #:[id number] Tube Feeding 700 / 700 281 / 281 Tube Irrigant 260 / 260 Water Bolus Amount 600 / 600 Output: Urine Amount (Catheter) 0 / 0 900 / 900 Indwelling Urethral Catheter 2199 / 2199 900 / 900 Other: Date of Last Bowel Movement 04/09/18 04/08/18 # Bowel Movements 1 Lab - Hematology Results 04/09/18 04/10/18 05:05 04:46 WBC 10.6 13.8 H RBC 3.89 L 3.66 L Hgb 12.3 L 11.4 L Hct 36.0 L 34.7 L MCV 92.5 94.7 MCH 31.6 31.2 MCHC 34.2 33.0 RDW 14.9 15.2 Plt Count 347 343 MPV 8.1 8.6 Neut % (Auto) 82.0 H Lymph % (Auto) 7.2 L Stewart % (Auto) 10.0 H Eos % (Auto) 0.5 Baso % (Auto) 0.3 Neut # (Auto) 8.7 H Lymph # (Auto) 0.8 L Stewart # (Auto) 1.1 H Eos # (Auto) 0.0 Baso # (Auto) 0.0 WBC Differential . Differential Comment Auto diff final Lab - Chemistry Results 04/09/18 04/10/18 04/10/18 05:05 04:46 04:46 Sodium 155 H 151 H Potassium 3.2 L 3.4 L Chloride 118 H 115 H Carbon Dioxide 27.2 27.6 Anion Gap 10 8 BUN 36 H 47 H Creatinine 1.38 H 2.06 H Estimated GFR 51 L 32 L Random Glucose 147 H 156 H Calcium 8.7 9.0 Phosphorus 3.4 Magnesium 2.8 H Total Bilirubin 0.4 0.7 Cancelled Direct Bilirubin 0.3 H Cancelled Indirect Bilirubin 0.4 Cancelled AST 87 H 68 H Cancelled ALT 198 H 183 H Cancelled Alkaline Phosphatase 77 70 Cancelled Total Protein 6.4 6.8 Cancelled Albumin 2.9 L 3.6 D Cancelled Amylase 377 H Cancelled Lipase 276 Cancelled Cortisol 04/10/18 10:35 Sodium Potassium Chloride Carbon Dioxide Anion Gap BUN Creatinine Estimated GFR Random Glucose Calcium Phosphorus Magnesium Total Bilirubin Direct Bilirubin Indirect Bilirubin AST ALT Alkaline Phosphatase Total Protein Albumin Amylase Lipase Cortisol 27.8 Imaging: ITS Impressions Head MRI 03/31/18 00:00 CONCLUSION: Negative exam Head CT 03/31/18 12:[address]: [address] Head non contrast. . Chest CTA 03/31/18 14:39 CONCLUSION: 1. Bibasilar atelectatic changes, left greater than right. No confluent infiltrate. 2. No pulmonary embolus. 3. Atherosclerotic calcification of the coronary arteries. Cervical Spine MRI 03/31/18 16:17 CONCLUSION: 1. Status post fusion at the C5-C6 level. There is susceptibility artifact from the hardware. 2. A significant area of stenosis in the thecal sac is not seen. 3. Facet hypertrophy seen throughout with scattered areas of neural foraminal narrowing as described above. 4. The patient is intubated with fluid in the hypopharynx, laryngeal pharynx, and upper trachea around the ET tube and above the tracheal ET tube cuff. 5. The does appear to be some mild soft tissue swelling in the prevertebral region best seen on the sagittal images. Chest X-Ray 04/09/18 06:00 CONCLUSION: 1. No significant interval change. 2. Stable ETT and NGT. 3. Mild bilateral lower lobe patchy airspace disease. Abdomen X-Ray 04/09/18 20:57 CONCLUSION: Gastric tube tip within the stomach. Abdomen/Bladder Ultrasound 04/10/18 08:05 CONCLUSION: 1. Probable complex cyst coming off the right lower pole kidney appears smaller since 2017 CT examination of the abdomen. Physical Exam: GENERAL: NAD awake, uint'd SKIN: Warm and dry. HEAD: Atraumatic. Normocephalic. EYES: Pupils equal and round. No scleral icterus. No injection or drainage. ENT: No nasal bleeding or discharge. Mucous membranes pink and moist. NECK: Trachea midline. No JVD. CARDIOVASCULAR: Regular tachycardia and gallop (?S 3) RESPIRATORY: No accessory muscle use. Clear to auscultation. Breath sounds equal , bilaterally. GASTROINTESTINAL: Abdomen soft, non-tender, nondistended. Hepatic and splenic margins not palpable. MUSCULOSKELETAL: Extremities without clubbing, cyanosis, or edema. No obvious deformities. 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
--- NOTE | 2018-04-10 18:18 | P.CONNP ---
<Eula Tony - Last Filed: 04/10/18 17:23> History of Present Illness Consult date: 04/10/18 Requesting Physician: Lenny Bell Reason for Consult: BUDDY Primary Care Provider: Rex Longoria MD Chief Complaint: Acute respiratory failure History of Present Illness: This 67-year-old came into the emergency room today with his and daughter. On 02/13/2018, he had a microdiscectomy, C5-C6, by Dr. Schwarz. He was discharged home the next day. A few days after, he had not been feeling well, short of breath, disoriented, generally weak, symptoms were getting worse, disorientation was worse. He was referred to emergency department by his primary care physician for an evaluation. In the ED he was found to be in severe hypercarbic respiratory acidosis and was intubated by ED attending. Nephrology has been consulted secondary to BUDDY. During his hospital stay, chest cta that was negative for any PE. Lisinopril was started on the and was discontinued on the , in light of acute kidney injury. According to his he does have a large prostate, they have been keeping track of his free PSA which is currently at 9 and supposed to have a biopsy at some point next week. States he does follow regularly with urologist Dr. Alonso regarding a cyst right kidney?? Ultrasound has been done during his hospital admission and does not reveal any obstructive etiology would account for acute kidney injury. Looking back at the documentation books like the kidney insult started on 07 April. Currently his creatinine is 2.06, from 1.38 from 1.00. Sodium is increased at 151 from 155, 152. He has been receiving half-normal saline which has been discontinued in light of the hypernatremia. He did become hypotensive this morning around 330 which a bolus was given, propofol was discontinued. They had started him on a florina-drip, of which was discontinued shortly after due to a hypertensive episode. An echocardiogram was completed during this admission which revealed an EF of 45% of unknown etiology. Did relate to me that he had an episode of vomiting a couple days before he presented to the hospital. However there has been no vomiting, diarrhea during this hospital admission. He does have a low-grade fever at 99, , WBC has trended up to 13. According to the nurse they have ordered blood cultures, urine culture. A urine creatinine, urine osmolarity, urine eosinophil have also been ordered. Review of Systems All other systems reviewed negative except as stated in HPI [facility] - History History Provided By: Family Member, Significant Other (), Medical Record - Medical History Medical History: Medical History (Last Reviewed 04/10/18 @ 17:42 by Eula Tony APRN) GERD (gastroesophageal reflux disease) High cholesterol Raspy voice Thyroid disease - Surgical History Surgical History: Surgical History (Last Reviewed 04/10/18 @ 17:42 by Eula Tony APRN) H/O microdiscectomy H/O inguinal hernia repair Status post bilateral LASIK surgery - Family History Family History: Family History (Last Reviewed 04/10/18 @ 17:42 by Eula Tony APRN) Other Family history non-contributory - Social History I have reviewed the patient's Social History: Yes - Tobacco History Second Hand Smoke Exposure: No Tobacco Use In Past 30 Days: No Smoking Status: Never smoker Tobacco Type: Cigarettes - Alcohol History How Often Do You Have a Drink Containing Alcohol: Monthly or less - Substance Use History Substance History: No History of Abuse - Travel History Recent Travel in the [place] Within the Last 8 Weeks: No Recent Travel Out of the Country Within the Last 8 Weeks: No - Immunization History Tetanus Immunization: <5 Years Hx Influenza Vaccine This Season: Yes Medications and Allergies Allergies Allergy/AdvReac Type Severity Reaction Status Date / Time Sulfa (Sulfonamide Allergy Severe Nausea Verified 02/15/18 05:02 Antibiotics) Home Medications Medication Instructions Recorded Confirmed Type aspirin 81 mg PO DAILY 02/08/18 03/31/18 History levothyroxine 125 mcg PO DAILY 02/08/18 03/31/18 History pantoprazole [Protonix] 40 mg PO DAILY 02/08/18 03/31/18 History pravastatin 40 mg PO HS 02/08/18 03/31/18 History amlodipine [Norvasc] 10 mg PO DAILY 03/31/18 03/31/18 History ranitidine HCl [Zantac] 150 mg PO DAILY 03/31/18 03/31/18 History Active Medications: Active Medications Acetaminophen (Tylenol) 650 mg PO Q6H PRN PRN Reason: Temp > 100.4 Al Hydroxide/Mg Hydroxide (Milk Of Magnesia Liq) 30 ml PO Q12H PRN PRN Reason: Mild Constipation Last Admin: 04/05/18 05:18 Dose: 30 ml Albuterol (Duoneb Neb (Je)) 1 ampul NEB Q4HR NEB [facility] Last Admin: 04/10/18 17:15 Dose: 1 ampul Albuterol (Albuterol Neb (Prn)) 2.5 mg NEB Q2HR NEB PRN PRN Reason: DYSPNEA Artificial Tears (Tears Naturale Opth Drops) 1 drop EACH EYE Q8H [facility] Last Admin: 04/10/18 08:42 Dose: 1 drop Aspirin (Aspirin Chew) 81 mg PO DAILY [facility] Last Admin: 04/10/18 08:39 Dose: 81 mg Chlorhexidine Gluconate (Peridex 0.12% Oral Kit) 15 ml OROPHARYNG BID@0800, 2000 [facility] Last Admin: 04/10/18 08:39 Dose: 15 ml Enoxaparin Sodium (Lovenox Inj) 40 mg SQ DAILY [facility] Last Admin: 04/10/18 08:40 Dose: 40 mg Fentanyl (Fentanyl 10 Mcg/Ml Premix Drip) 2,500 mcg in 250 mls @ 5 mls/hr IV.SIG TITRATE PRN; Protocol PRN Reason: Per Protocol Last Admin: 04/10/18 10:27 Dose: 200 mcg/hr, 20 mls/hr Midazolam HCl (Versed Inj) 100 mg in 100 mls @ 2 mls/hr IV.CONT TITRATE PRN; Protocol PRN Reason: See protocol Last Titration: 04/03/18 12:16 Dose: Infused Dexmedetomidine HCl 1,000 mcg/ (Sodium Chloride) 250 mls @ 4.31 mls/hr IV.CONT TITRATE PRN; Protocol PRN Reason: Per Protocol Last Titration: 04/10/18 13:01 Dose: 0.3 mcg/kg/hr, 6.47 mls/hr Phenylephrine HCl 160 mg/ (Sodium Chloride) 500 mls @ 7.5 mls/hr IV.CONT TITRATE PRN; Protocol PRN Reason: Per Protocol Last Titration: 04/10/18 10:27 Dose: 0 mcg/min, 0 mls/hr Labetalol HCl (Trandate Inj) 20 mg IV.PUSH Q1H PRN PRN Reason: SBP > 160 Lactulose (Lactulose Liq) 30 ml PO TID [facility] Last Admin: 04/10/18 12:57 Dose: 30 ml Lansoprazole (Prevacid Solutab) 30 mg NG/OG DAILY [facility] Last Admin: 04/10/18 08:39 Dose: 30 mg Levothyroxine Sodium (Synthroid) 125 mcg PO DAILY@0600 [facility] Last Admin: 04/10/18 05:48 Dose: 125 mcg Miscellaneous Medication () 1 each OROPHARYNG 0000,0400,1200,1600 [facility] Last Admin: 04/10/18 12:54 Dose: 1 each Ondansetron HCl (Zofran Inj) 4 mg IV.PUSH Q4H PRN PRN Reason: NAUSEA OR VOMITING Polyethylene Glycol (Miralax) 17 gm PO BID [facility] Last Admin: 04/10/18 08:42 Dose: Not Given Pravastatin Sodium (Pravachol) 40 mg PO HS [facility] Last Admin: 04/09/18 23:49 Dose: 40 mg Senna/Docusate Sodium (Celine-Colace) 1 tab PO BID [facility] Last Admin: 04/10/18 08:42 Dose: Not Given Sodium Chloride (Ns Flush) 2 ml IV.FLUSH BID [facility] Last Admin: 04/10/18 08:41 Dose: 2 ml Sodium Chloride (Ns Flush) 2 ml IV.FLUSH PRN PRN PRN Reason: FLUSH AFTER USING IV ACCESS Sterile Water (Free Water) 200 ml NG/OG Q6HR [facility] Last Admin: 04/10/18 12:54 Dose: 200 ml Terbutaline Sulfate (Brethine Inj) 1 mg SQ UNSCH PRN PRN Reason: For Extravasation Exam Vital signs: Vital Signs 04/09/18 18:00 04/09/18 18:06 04/09/18 19:00 Temperature 98.8 F 98.8 F 99.1 F Pulse Rate 117 H 118 H 93 H Respiratory Rate 14 13 12 Blood Pressure 143/72 H 108/62 Pulse Oximetry 92 L 92 L 94 L 04/09/18 20:00 04/09/18 20:08 04/09/18 20:28 Temperature 99.0 F Pulse Rate 120 H 120 H Respiratory Rate 12 13 13 Blood Pressure 152/89 H Pulse Oximetry 97 98 04/09/18 21:00 04/09/18 22:00 04/09/18 23:22 Temperature 99.3 F 99.7 F H 99.9 F H Pulse Rate 78 68 95 H Respiratory Rate 12 12 12 Blood Pressure 167/116 H 131/102 H 96/60 L Pulse Oximetry 97 98 94 L 04/09/18 23:33 04/10/18 00:00 04/10/18 00:05 Temperature 99.5 F Pulse Rate 88 101 H Respiratory Rate 12 12 12 Blood Pressure 121/74 Pulse Oximetry 96 95 04/10/18 01:00 04/10/18 02:00 04/10/18 03:00 Temperature 99.3 F 99.1 F 99.9 F H Pulse Rate 82 122 H 98 H Respiratory Rate 12 14 12 Blood Pressure 75/51 L 113/67 52/35 L Pulse Oximetry 95 95 90 L 04/10/18 03:02 04/10/18 03:04 04/10/18 03:06 Temperature 99.9 F H Pulse Rate 97 H Respiratory Rate 12 Blood Pressure 50/35 L 68/40 L 68/42 L Pulse Oximetry 94 L 04/10/18 03:09 04/10/18 03:14 04/10/18 03:17 Temperature 99.9 F H Pulse Rate 106 H 110 H 113 H Respiratory Rate 12 12 12 Blood Pressure 80/53 L 87/53 L 114/60 Pulse Oximetry 94 L 95 97 04/10/18 03:25 04/10/18 03:31 04/10/18 03:32 Temperature Pulse Rate 112 H 113 H 115 H Respiratory Rate 12 12 12 Blood Pressure 112/63 119/65 Pulse Oximetry 98 96 04/10/18 03:46 04/10/18 04:00 04/10/18 04:16 Temperature 99.0 F 99.1 F 99.3 F Pulse Rate 111 H 119 H 119 H Respiratory Rate 12 14 12 Blood Pressure 111/66 129/75 123/74 Pulse Oximetry 98 99 98 04/10/18 04:18 04/10/18 05:00 04/10/18 05:31 Temperature 99.3 F 99.3 F Pulse Rate 135 H 136 H Respiratory Rate 12 12 12 Blood Pressure 140/84 143/74 H Pulse Oximetry 98 98 97 04/10/18 05:46 04/10/18 06:00 04/10/18 06:31 Temperature 99.5 F 99.5 F 99.7 F H Pulse Rate 139 H 151 H 128 H Respiratory Rate 12 29 H 12 Blood Pressure 165/81 H 174/83 H 94/58 L Pulse Oximetry 97 98 94 L 04/10/18 07:33 04/10/18 07:43 04/10/18 07:50 Temperature 99.7 F H 99.7 F H 99.7 F H Pulse Rate 105 H 94 H 89 Respiratory Rate 12 12 12 Blood Pressure 71/47 L 63/41 L 59/38 L Pulse Oximetry 93 L 93 L 93 L 04/10/18 07:51 04/10/18 07:53 04/10/18 08:00 Temperature 99.7 F H 99.7 F H 99.7 F H Pulse Rate 90 109 H 100 H Respiratory Rate 12 14 12 Blood Pressure 62/47 L 104/60 Pulse Oximetry 93 L 93 L 96 04/10/18 08:03 04/10/18 08:10 04/10/18 08:13 Temperature 99.7 F H 99.5 F Pulse Rate 100 H 120 H Respiratory Rate 12 12 12 Blood Pressure 79/51 L 135/70 Pulse Oximetry 95 98 98 04/10/18 08:23 04/10/18 08:24 04/10/18 08:33 Temperature 99.3 F 99.3 F Pulse Rate 117 H 117 H 115 H Respiratory Rate 15 15 15 Blood Pressure 130/73 131/75 Pulse Oximetry 99 99 04/10/18 08:43 04/10/18 08:53 04/10/18 09:00 Temperature 99.3 F 99.1 F 99.1 F Pulse Rate 110 H 113 H 117 H Respiratory Rate 15 15 15 Blood Pressure 132/73 140/75 Pulse Oximetry 99 100 100 04/10/18 09:03 04/10/18 09:13 04/10/18 09:23 Temperature 99.1 F 99.1 F 99.1 F Pulse Rate 116 H 110 H 108 H Respiratory Rate 15 15 15 Blood Pressure 166/79 H 140/79 145/77 H Pulse Oximetry 100 100 100 04/10/18 09:33 04/10/18 09:43 04/10/18 09:53 Temperature 99.0 F 99.0 F 99.1 F Pulse Rate 104 H 110 H 113 H Respiratory Rate 15 15 15 Blood Pressure 132/76 148/86 H 150/85 H Pulse Oximetry 99 100 100 04/10/18 10:00 04/10/18 10:03 04/10/18 10:13 Temperature 99.1 F 99.1 F 99.3 F Pulse Rate 121 H 131 H 142 H Respiratory Rate 15 22 15 Blood Pressure 156/81 H Pulse Oximetry 100 100 97 04/10/18 10:23 04/10/18 10:50 04/10/18 11:00 Temperature 99.0 F 98.8 F 98.8 F Pulse Rate 140 H 139 H 134 H Respiratory Rate 15 15 15 Blood Pressure 177/80 H 156/77 H Pulse Oximetry 94 L 91 L 92 L 04/10/18 11:05 04/10/18 11:20 04/10/18 11:35 Temperature 98.8 F 99.0 F 99.0 F Pulse Rate 131 H 127 H 123 H Respiratory Rate 15 15 15 Blood Pressure 111/62 107/61 113/61 Pulse Oximetry 92 L 92 L 91 L 04/10/18 11:50 04/10/18 12:00 04/10/18 12:05 Temperature 99.0 F 99.0 F 99.0 F Pulse Rate 130 H 125 H 121 H Respiratory Rate 16 15 15 Blood Pressure 152/70 H 144/71 H Pulse Oximetry 91 L 93 L 92 L 04/10/18 12:20 04/10/18 12:24 04/10/18 12:35 Temperature 99.0 F 99.0 F Pulse Rate 128 H 135 H Respiratory Rate 15 15 15 Blood Pressure 163/83 H 166/88 H Pulse Oximetry 93 L 93 L 95 04/10/18 12:50 04/10/18 13:00 04/10/18 13:05 Temperature 97.3 F L 97.3 F L 97.3 F L Pulse Rate 136 H 131 H 126 H Respiratory Rate 15 15 15 Blood Pressure 141/85 H 143/73 H Pulse Oximetry 93 L 92 L 92 L 04/10/18 13:20 04/10/18 13:35 04/10/18 13:50 Temperature 97.3 F L 97.5 F L 97.3 F L Pulse Rate 129 H 123 H 130 H Respiratory Rate 15 15 15 Blood Pressure 146/76 H 138/73 170/81 H Pulse Oximetry 93 L 91 L 93 L 04/10/18 14:00 04/10/18 14:05 04/10/18 14:20 Temperature 97.5 F L 97.5 F L 97.5 F L Pulse Rate 127 H 127 H 125 H Respiratory Rate 15 15 15 Blood Pressure 161/77 H 151/72 H Pulse Oximetry 93 L 93 L 93 L 04/10/18 14:35 04/10/18 14:50 04/10/18 15:00 Temperature 97.5 F L 97.7 F 97.7 F Pulse Rate 128 H 116 H 112 H Respiratory Rate 15 15 15 Blood Pressure 161/83 H 112/59 L Pulse Oximetry 95 92 L 92 L 04/10/18 15:05 04/10/18 15:20 04/10/18 17:16 Temperature 97.7 F 97.7 F Pulse Rate 119 H 118 H Respiratory Rate 15 15 15 Blood Pressure 98/69 L 132/76 Pulse Oximetry 94 L 93 L 95 04/10/18 17:18 Temperature Pulse Rate 116 H Respiratory Rate 15 Blood Pressure Pulse Oximetry Intake & Output 04/09/18 04/10/18 04/10/18 18:59 06:59 18:59 Intake Total 1816 / 1816 1041 / 1041 1316 / 1316 Output Total 2200 / 2200 900 / 900 Balance -384 / -384 141 / 141 1316 / 1316 Weight 87.7 kg Intake: IV 516 / 516 500 / 500 1316 / 1316 Precedex Inj 1,000 MCG In NS 250 / 250 250 / 250 Inj 240 ML @ 0.2 MCG/KG/HR 4.31 mls/hr IV.CONT TITRATE PRN Rx# :[id number] NS Inj 1,000 ML @ 30 mls/hr IV. 0 / 0 CONT .Q24H [facility] Rx#:[id number] NS Inj 500 ML @ 500 mls/hr IV. 500 / 500 CONT .Q1H ONE Rx#:[id number] Flexbumin 25% Inj 100 ML @ 60 200 / 200 mls/hr IV.SIG Q100M [facility] Rx#: [id number] 1/2 Normal Saline Inj 1,000 ML 1000 / 1000 @ Wide Open IV.SIG BOLUS ONE Rx #:[id number] fentaNYL 10 mcg/mL Premix Drip 66 / 66 66 / 66 2,500 mcg In 250 ml @ 50 MCG/HR 5 mls/hr IV.SIG TITRATE PRN Rx #:[id number] Tube Feeding 700 / 700 281 / 281 Tube Irrigant 260 / 260 Water Bolus Amount 600 / 600 Output: Urine Amount (Catheter) 2200 / 2200 900 / 900 Indwelling Urethral Catheter 2199 900 / 900 Other: Date of Last Bowel Movement 04/09/18 04/08/18 # Bowel Movements 1 Narrative: Patiently is currently intubated. Nurse at bedside. Patient is fully alert and oriented. Does not appear to be in any acute distress. GENERAL: Appears to be in no acute distress. Resting comfortably, intubated, follows commands alert and oriented. Communicates with pen and paper. SKIN: Warm and dry, intact, No lesions seen. HEAD: Normocephalic. EYES: No scleral icterus. No injection or drainage. Pupils are equal and reactive to light. NECK: Supple, trachea midline. No JVD or lymphadenopathy. CARDIOVASCULAR: Tachycardic, normal rhythm without murmurs, gallops, or rubs. RESPIRATORY: Breath sounds equal bilaterally. No accessory muscle use. Breath sounds are clear bilaterally to auscultation. GASTROINTESTINAL: Abdomen soft, non-tender, distended. Hypoactive bowel sounds. BACK: Nontender without obvious deformity. No CVA tenderness. Results - Lab Results 04/10/18 04:46 04/10/18 04:46 Most recent lab results ABG pH 7.31 (7.380-7.420) L 04/09/18 11:54 ABG pCO2 59 mmHg (38-42) H* 04/09/18 11:54 ABG pO2 100 mmHg (61-120) 04/09/18 11:54 ABG HCO3 29 mmol/L (22-26) H 04/09/18 11:54 Calcium 9.0 mg/dL (8.5-10.1) 04/10/18 04:46 Phosphorus 3.4 mg/dL (2.5-4.9) 04/09/18 05:05 Magnesium 2.8 mg/dL (1.5-2.5) H 04/09/18 05:05 - Image Kidney/bladder ultrasound: report reviewed (No obstructive etiology seen to cause any acute kidney injury) Assessment and Plan - Assessment (1) BUDDY (acute kidney injury) Code(s): N17.9 - Acute kidney failure, unspecified Status: Acute Plan: Patient currently intubated, presented to the hospital with shortness of breath , confusion. An anterior discectomy of C5-6 with a fusion was done February 13, 2018. Patient presented with respiratory acidosis. Unclear etiology of patient' s presentation. Extensive neuro workup has been done, lumbar puncture negative , CT MRI of the head negative, MRI of the cervical spine negative. He did have a electroenphalopath which was positive for encephalopathy. Extubation was tried on the of which he only lasted for 45 minutes and became somnolent and obtunded. Kidney insult began on the . Current creatinine is 2.06---->1.38----->1.0. Nonoliguric. Voiding well. Lisinopril was started on the was stopped on the in light of acute kidney injury CTA of the chest was done the , which could have also been an insult to the kidneys. Echocardiogram revealed EF of 45% unknown etiology. He does have a low-grade fever today. WBC is trending up slightly to 13 today. Blood cultures and urine culture have been ordered. Renal ultrasound negative for any obstructive etiology -Fractional excretion of urine, 0.47%, prerenal? -We will keep following his BMP -We will discuss plan with Dr. Campbell. (2) Hypernatremia Code(s): E87.0 - Hyperosmolality and hypernatremia Status: Acute Plan: 151 from 155 Was receiving half-normal saline which has been discontinued. On the he was with hyponatremia at 129 Hypernatremia likely secondary to IV fluids -Continue to monitor (3) Respiratory failure Code(s): J96.90 - Respiratory failure, unspecified, unspecified whether with hypoxia or hypercapnia Status: Acute Plan: With respiratory acidosis, Continues to be intubated, failed extubation on the , became somnolent, obtunded There is thought that the phrenic nerve and or vocal cords could be involved, possibly hit during cervical surgery? Plans for possible sniff test once extubated Myastheia Gravis workup by neuro (4) Leukocytosis Code(s): D72.829 - Elevated white blood cell count, unspecified Status: Acute - Plan WBCs slightly trended up to 13 Afebrile 99 Urine culture, blood cultures have been ordered Per critical care team <Matilde Campbell - Last Filed: 04/10/18 19:14> History of Present Illness Primary Care Provider: Rex Longoria MD [facility] - Medical History Medical History: Medical History (Last Reviewed 04/10/18 @ 17:42 by Eula Tony APRN) GERD (gastroesophageal reflux disease) High cholesterol Raspy voice Thyroid disease - Surgical History Surgical History: Surgical History (Last Reviewed 04/10/18 @ 17:42 by Eula Tony APRN) H/O microdiscectomy H/O inguinal hernia repair Status post bilateral LASIK surgery - Family History Family History: Family History (Last Reviewed 04/10/18 @ 17:42 by Eula Tony APRN) Other Family history non-contributory Medications and Allergies Active Medications: Active Medications Acetaminophen (Tylenol) 650 mg PO Q6H PRN PRN Reason: Temp > 100.4 Al Hydroxide/Mg Hydroxide (Milk Of Magnjacque Liq) 30 ml PO Q12H PRN PRN Reason: Mild Constipation Last Admin: 04/05/18 05:18 Dose: 30 ml Albuterol (Duoneb Neb (Je)) 1 ampul NEB Q4HR NEB [facility] Last Admin: 04/10/18 17:15 Dose: 1 ampul Albuterol (Albuterol Neb (Prn)) 2.5 mg NEB Q2HR NEB PRN PRN Reason: DYSPNEA Artificial Tears (Tears Naturale Opth Drops) 1 drop EACH EYE Q8H [facility] Last Admin: 04/10/18 18:06 Dose: 1 drop Aspirin (Aspirin Chew) 81 mg PO DAILY [facility] Last Admin: 04/10/18 08:39 Dose: 81 mg Chlorhexidine Gluconate (Peridex 0.12% Oral Kit) 15 ml OROPHARYNG BID@0800, 2000 [facility] Last Admin: 04/10/18 08:39 Dose: 15 ml Enoxaparin Sodium (Lovenox Inj) 40 mg SQ DAILY [facility] Last Admin: 04/10/18 08:40 Dose: 40 mg Fentanyl (Fentanyl 10 Mcg/Ml Premix Drip) 2,500 mcg in 250 mls @ 5 mls/hr IV.SIG TITRATE PRN; Protocol PRN Reason: Per Protocol Last Admin: 04/10/18 10:27 Dose: 200 mcg/hr, 20 mls/hr Midazolam HCl (Versed Inj) 100 mg in 100 mls @ 2 mls/hr IV.CONT TITRATE PRN; Protocol PRN Reason: See protocol Last Titration: 04/03/18 12:16 Dose: Infused Dexmedetomidine HCl 1,000 mcg/ (Sodium Chloride) 250 mls @ 4.31 mls/hr IV.CONT TITRATE PRN; Protocol PRN Reason: Per Protocol Last Titration: 04/10/18 13:01 Dose: 0.3 mcg/kg/hr, 6.47 mls/hr Phenylephrine HCl 160 mg/ (Sodium Chloride) 500 mls @ 7.5 mls/hr IV.CONT TITRATE PRN; Protocol PRN Reason: Per Protocol Last Titration: 04/10/18 10:27 Dose: 0 mcg/min, 0 mls/hr Labetalol HCl (Trandate Inj) 20 mg IV.PUSH Q1H PRN PRN Reason: SBP > 160 Lactulose (Lactulose Liq) 30 ml PO TID [facility] Last Admin: 04/10/18 17:58 Dose: 30 ml Lansoprazole (Prevacid Solutab) 30 mg NG/OG DAILY [facility] Last Admin: 04/10/18 08:39 Dose: 30 mg Levothyroxine Sodium (Synthroid) 125 mcg PO DAILY@0600 [facility] Last Admin: 04/10/18 05:48 Dose: 125 mcg Miscellaneous Medication () 1 each OROPHARYNG 0000,0400,1200,1600 [facility] Last Admin: 04/10/18 17:57 Dose: 1 each Ondansetron HCl (Zofran Inj) 4 mg IV.PUSH Q4H PRN PRN Reason: NAUSEA OR VOMITING Polyethylene Glycol (Miralax) 17 gm PO BID [facility] Last Admin: 04/10/18 08:42 Dose: Not Given Pravastatin Sodium (Pravachol) 40 mg PO HS [facility] Last Admin: 04/09/18 23:49 Dose: 40 mg Senna/Docusate Sodium (Celine-Colace) 1 tab PO BID [facility] Last Admin: 04/10/18 08:42 Dose: Not Given Sodium Chloride (Ns Flush) 2 ml IV.FLUSH BID [facility] Last Admin: 04/10/18 08:41 Dose: 2 ml Sodium Chloride (Ns Flush) 2 ml IV.FLUSH PRN PRN PRN Reason: FLUSH AFTER USING IV ACCESS Sterile Water (Free Water) 200 ml NG/OG Q6HR [facility] Last Admin: 04/10/18 17:58 Dose: 200 ml Terbutaline Sulfate (Brethine Inj) 1 mg SQ UNSCH PRN PRN Reason: For Extravasation Exam Vital signs: Vital Signs 04/09/18 20:00 04/09/18 20:08 04/09/18 20:28 Temperature 99.0 F Pulse Rate 120 H 120 H Respiratory Rate 12 13 13 Blood Pressure 152/89 H Pulse Oximetry 97 98 04/09/18 21:00 04/09/18 22:00 04/09/18 23:22 Temperature 99.3 F 99.7 F H 99.9 F H Pulse Rate 78 68 95 H Respiratory Rate 12 12 12 Blood Pressure 167/116 H 131/102 H 96/60 L Pulse Oximetry 97 98 94 L 04/09/18 23:33 04/10/18 00:00 04/10/18 00:05 Temperature 99.5 F Pulse Rate 88 101 H Respiratory Rate 12 12 12 Blood Pressure 121/74 Pulse Oximetry 96 95 04/10/18 01:00 04/10/18 02:00 04/10/18 03:00 Temperature 99.3 F 99.1 F 99.9 F H Pulse Rate 82 122 H 98 H Respiratory Rate 12 14 12 Blood Pressure 75/51 L 113/67 52/35 L Pulse Oximetry 95 95 90 L 04/10/18 03:02 04/10/18 03:04 04/10/18 03:06 Temperature 99.9 F H Pulse Rate 97 H Respiratory Rate 12 Blood Pressure 50/35 L 68/40 L 68/42 L Pulse Oximetry 94 L 04/10/18 03:09 04/10/18 03:14 04/10/18 03:17 Temperature 99.9 F H Pulse Rate 106 H 110 H 113 H Respiratory Rate 12 12 12 Blood Pressure 80/53 L 87/53 L 114/60 Pulse Oximetry 94 L 95 97 04/10/18 03:25 04/10/18 03:31 04/10/18 03:32 Temperature Pulse Rate 112 H 113 H 115 H Respiratory Rate 12 12 12 Blood Pressure 112/63 119/65 Pulse Oximetry 98 96 04/10/18 03:46 04/10/18 04:00 04/10/18 04:16 Temperature 99.0 F 99.1 F 99.3 F Pulse Rate 111 H 119 H 119 H Respiratory Rate 12 14 12 Blood Pressure 111/66 129/75 123/74 Pulse Oximetry 98 99 98 04/10/18 04:18 04/10/18 05:00 04/10/18 05:31 Temperature 99.3 F 99.3 F Pulse Rate 135 H 136 H Respiratory Rate 12 12 12 Blood Pressure 140/84 143/74 H Pulse Oximetry 98 98 97 04/10/18 05:46 04/10/18 06:00 04/10/18 06:31 Temperature 99.5 F 99.5 F 99.7 F H Pulse Rate 139 H 151 H 128 H Respiratory Rate 12 29 H 12 Blood Pressure 165/81 H 174/83 H 94/58 L Pulse Oximetry 97 98 94 L 04/10/18 07:33 04/10/18 07:43 04/10/18 07:50 Temperature 99.7 F H 99.7 F H 99.7 F H Pulse Rate 105 H 94 H 89 Respiratory Rate 12 12 12 Blood Pressure 71/47 L 63/41 L 59/38 L Pulse Oximetry 93 L 93 L 93 L 04/10/18 07:51 04/10/18 07:53 04/10/18 08:00 Temperature 99.7 F H 99.7 F H 99.7 F H Pulse Rate 90 109 H 100 H Respiratory Rate 12 14 12 Blood Pressure 62/47 L 104/60 Pulse Oximetry 93 L 93 L 96 04/10/18 08:03 04/10/18 08:10 04/10/18 08:13 Temperature 99.7 F H 99.5 F Pulse Rate 100 H 120 H Respiratory Rate 12 12 12 Blood Pressure 79/51 L 135/70 Pulse Oximetry 95 98 98 04/10/18 08:23 04/10/18 08:24 04/10/18 08:33 Temperature 99.3 F 99.3 F Pulse Rate 117 H 117 H 115 H Respiratory Rate 15 15 15 Blood Pressure 130/73 131/75 Pulse Oximetry 99 99 04/10/18 08:43 04/10/18 08:53 04/10/18 09:00 Temperature 99.3 F 99.1 F 99.1 F Pulse Rate 110 H 113 H 117 H Respiratory Rate 15 15 15 Blood Pressure 132/73 140/75 Pulse Oximetry 99 100 100 04/10/18 09:03 04/10/18 09:13 04/10/18 09:23 Temperature 99.1 F 99.1 F 99.1 F Pulse Rate 116 H 110 H 108 H Respiratory Rate 15 15 15 Blood Pressure 166/79 H 140/79 145/77 H Pulse Oximetry 100 100 100 04/10/18 09:33 04/10/18 09:43 04/10/18 09:53 Temperature 99.0 F 99.0 F 99.1 F Pulse Rate 104 H 110 H 113 H Respiratory Rate 15 15 15 Blood Pressure 132/76 148/86 H 150/85 H Pulse Oximetry 99 100 100 04/10/18 10:00 04/10/18 10:03 04/10/18 10:13 Temperature 99.1 F 99.1 F 99.3 F Pulse Rate 121 H 131 H 142 H Respiratory Rate 15 22 15 Blood Pressure 156/81 H Pulse Oximetry 100 100 97 04/10/18 10:23 04/10/18 10:50 04/10/18 11:00 Temperature 99.0 F 98.8 F 98.8 F Pulse Rate 140 H 139 H 134 H Respiratory Rate 15 15 15 Blood Pressure 177/80 H 156/77 H Pulse Oximetry 94 L 91 L 92 L 04/10/18 11:05 04/10/18 11:20 04/10/18 11:35 Temperature 98.8 F 99.0 F 99.0 F Pulse Rate 131 H 127 H 123 H Respiratory Rate 15 15 15 Blood Pressure 111/62 107/61 113/61 Pulse Oximetry 92 L 92 L 91 L 04/10/18 11:50 04/10/18 12:00 04/10/18 12:05 Temperature 99.0 F 99.0 F 99.0 F Pulse Rate 130 H 125 H 121 H Respiratory Rate 16 15 15 Blood Pressure 152/70 H 144/71 H Pulse Oximetry 91 L 93 L 92 L 04/10/18 12:20 04/10/18 12:24 04/10/18 12:35 Temperature 99.0 F 99.0 F Pulse Rate 128 H 135 H Respiratory Rate 15 15 15 Blood Pressure 163/83 H 166/88 H Pulse Oximetry 93 L 93 L 95 04/10/18 12:50 04/10/18 13:00 04/10/18 13:05 Temperature 97.3 F L 97.3 F L 97.3 F L Pulse Rate 136 H 131 H 126 H Respiratory Rate 15 15 15 Blood Pressure 141/85 H 143/73 H Pulse Oximetry 93 L 92 L 92 L 04/10/18 13:20 04/10/18 13:35 04/10/18 13:50 Temperature 97.3 F L 97.5 F L 97.3 F L Pulse Rate 129 H 123 H 130 H Respiratory Rate 15 15 15 Blood Pressure 146/76 H 138/73 170/81 H Pulse Oximetry 93 L 91 L 93 L 04/10/18 14:00 04/10/18 14:05 04/10/18 14:20 Temperature 97.5 F L 97.5 F L 97.5 F L Pulse Rate 127 H 127 H 125 H Respiratory Rate 15 15 15 Blood Pressure 161/77 H 151/72 H Pulse Oximetry 93 L 93 L 93 L 04/10/18 14:35 04/10/18 14:50 04/10/18 15:00 Temperature 97.5 F L 97.7 F 97.7 F Pulse Rate 128 H 116 H 112 H Respiratory Rate 15 15 15 Blood Pressure 161/83 H 112/59 L Pulse Oximetry 95 92 L 92 L 04/10/18 15:05 04/10/18 15:20 04/10/18 15:35 Temperature 97.7 F 97.7 F 97.7 F Pulse Rate 119 H 118 H 116 H Respiratory Rate 15 15 15 Blood Pressure 98/69 L 132/76 125/66 Pulse Oximetry 94 L 93 L 95 04/10/18 15:50 04/10/18 16:00 04/10/18 16:05 Temperature 97.5 F L 99.3 F 99.1 F Pulse Rate 116 H 125 H 127 H Respiratory Rate 15 15 15 Blood Pressure 136/78 153/92 H Pulse Oximetry 95 96 96 04/10/18 16:20 04/10/18 16:35 04/10/18 16:50 Temperature 99.1 F 99.3 F 99.5 F Pulse Rate 122 H 111 H 119 H Respiratory Rate 15 15 15 Blood Pressure 139/83 104/67 118/77 Pulse Oximetry 95 94 L 95 04/10/18 17:00 04/10/18 17:05 04/10/18 17:16 Temperature 99.5 F 99.5 F Pulse Rate 115 H 108 H Respiratory Rate 15 15 15 Blood Pressure 92/52 L Pulse Oximetry 95 94 L 95 04/10/18 17:18 04/10/18 17:20 04/10/18 17:35 Temperature 99.7 F H 99.7 F H Pulse Rate 116 H 113 H 101 H Respiratory Rate 15 15 15 Blood Pressure 103/68 81/52 L Pulse Oximetry 96 95 04/10/18 17:50 04/10/18 18:00 04/10/18 18:05 Temperature 99.5 F 99.5 F 99.7 F H Pulse Rate 111 H 100 H 100 H Respiratory Rate 15 15 15 Blood Pressure 120/73 98/61 L Pulse Oximetry 95 94 L 95 04/10/18 18:20 04/10/18 18:35 04/10/18 18:50 Temperature 99.7 F H 98.8 F Pulse Rate 102 H 114 H 108 H Respiratory Rate 15 15 15 Blood Pressure 98/64 L 112/69 Pulse Oximetry 95 94 L 95 Intake & Output 04/10/18 04/10/18 04/11/18 06:59 18:59 06:59 Intake Total 1041 / 1041 1777 / 1777 Output Total 900 / 900 500 / 500 Balance 141 / 141 1277 / 1277 Weight 87.7 kg Intake: IV 500 / 500 1316 / 1316 Precedex Inj 1,000 MCG In NS 250 / 250 Inj 240 ML @ 0.2 MCG/KG/HR 4.31 mls/hr IV.CONT TITRATE PRN Rx# :[id number] NS Inj 500 ML @ 500 mls/hr IV. 500 / 500 CONT .Q1H ONE Rx#:[id number] 1/2 Normal Saline Inj 1,000 ML 1000 / 1000 @ Wide Open IV.SIG BOLUS ONE Rx #:[id number] fentaNYL 10 mcg/mL Premix Drip 66 / 66 2,500 mcg In 250 ml @ 50 MCG/HR 5 mls/hr IV.SIG TITRATE PRN Rx #:[id number] Tube Feeding 281 / 281 461 / 461 Tube Irrigant 260 / 260 Output: Urine Amount (Catheter) 900 / 900 500 / 500 Indwelling Urethral Catheter 900 / 900 500 / 500 Other: Date of Last Bowel Movement 04/08/18 Results - Lab Results 04/10/18 04:46 04/10/18 17:50 Most recent lab results ABG pH 7.31 (7.380-7.420) L 04/09/18 11:54 ABG pCO2 59 mmHg (38-42) H* 04/09/18 11:54 ABG pO2 100 mmHg (61-120) 04/09/18 11:54 ABG HCO3 29 mmol/L (22-26) H 04/09/18 11:54 Calcium 9.0 mg/dL (8.5-10.1) 04/10/18 04:46 Phosphorus 3.4 mg/dL (2.5-4.9) 04/09/18 05:05 Magnesium 2.8 mg/dL (1.5-2.5) H 04/09/18 05:05 Assessment and Plan - Assessment (1) BUDDY (acute kidney injury) Code(s): N17.9 - Acute kidney failure, unspecified Status: Acute (2) Hypernatremia Code(s): E87.0 - Hyperosmolality and hypernatremia Status: Acute (3) Respiratory failure Code(s): J96.90 - Respiratory failure, unspecified, unspecified whether with hypoxia or hypercapnia Status: Acute (4) Leukocytosis Code(s): D72.829 - Elevated white blood cell count, unspecified Status: Acute - Attending Attestation Patient is seen and examined, case discussed with MARY Forde, patient and family , I explained to them he likely is experiencing contrast-induced acute renal failure, he is nonoliguric expected to recover Potassium was low this was replaced He has pulled his Wood catheter and had hematuria which has subsided Ultrasound showed a complex cyst in the right kidney which has decreased in size , he follows with urologist and it has been stable Continue with supportive care Follow BMP ,
--- NOTE | 2018-04-10 19:04 | P.PN ---
Subjective Interval history: Had a restless night last night. Pulled Wood out. Was tachycardic and creatinine is higher today. Now on tube feedings and water flushes. Remains on full ventilator support with AC rate of 16. FiO2 40%. Response to commands Physical Exam Vital signs: Vital Signs 04/09/18 19:00 04/09/18 20:00 04/09/18 20:08 Temperature 99.1 F 99.0 F Pulse Rate 93 H 120 H Respiratory Rate 12 12 13 Blood Pressure 108/62 152/89 H Pulse Oximetry 94 L 97 98 04/09/18 20:28 04/09/18 21:00 04/09/18 22:00 Temperature 99.3 F 99.7 F H Pulse Rate 120 H 78 68 Respiratory Rate 13 12 12 Blood Pressure 167/116 H 131/102 H Pulse Oximetry 97 98 04/09/18 23:22 04/09/18 23:33 04/10/18 00:00 Temperature 99.9 F H 99.5 F Pulse Rate 95 H 88 101 H Respiratory Rate 12 12 12 Blood Pressure 96/60 L 121/74 Pulse Oximetry 94 L 96 04/10/18 00:05 04/10/18 01:00 04/10/18 02:00 Temperature 99.3 F 99.1 F Pulse Rate 82 122 H Respiratory Rate 12 12 14 Blood Pressure 75/51 L 113/67 Pulse Oximetry 95 95 95 04/10/18 03:00 04/10/18 03:02 04/10/18 03:04 Temperature 99.9 F H Pulse Rate 98 H Respiratory Rate 12 Blood Pressure 52/35 L 50/35 L 68/40 L Pulse Oximetry 90 L 04/10/18 03:06 04/10/18 03:09 04/10/18 03:14 Temperature 99.9 F H 99.9 F H Pulse Rate 97 H 106 H 110 H Respiratory Rate 12 12 12 Blood Pressure 68/42 L 80/53 L 87/53 L Pulse Oximetry 94 L 94 L 95 04/10/18 03:17 04/10/18 03:25 04/10/18 03:31 Temperature Pulse Rate 113 H 112 H 113 H Respiratory Rate 12 12 12 Blood Pressure 114/60 112/63 119/65 Pulse Oximetry 97 98 96 04/10/18 03:32 04/10/18 03:46 04/10/18 04:00 Temperature 99.0 F 99.1 F Pulse Rate 115 H 111 H 119 H Respiratory Rate 12 12 14 Blood Pressure 111/66 129/75 Pulse Oximetry 98 99 04/10/18 04:16 04/10/18 04:18 04/10/18 05:00 Temperature 99.3 F 99.3 F Pulse Rate 119 H 135 H Respiratory Rate 12 12 12 Blood Pressure 123/74 140/84 Pulse Oximetry 98 98 98 04/10/18 05:31 04/10/18 05:46 04/10/18 06:00 Temperature 99.3 F 99.5 F 99.5 F Pulse Rate 136 H 139 H 151 H Respiratory Rate 12 12 29 H Blood Pressure 143/74 H 165/81 H 174/83 H Pulse Oximetry 97 97 98 04/10/18 06:31 04/10/18 07:33 04/10/18 07:43 Temperature 99.7 F H 99.7 F H 99.7 F H Pulse Rate 128 H 105 H 94 H Respiratory Rate 12 12 12 Blood Pressure 94/58 L 71/47 L 63/41 L Pulse Oximetry 94 L 93 L 93 L 04/10/18 07:50 04/10/18 07:51 04/10/18 07:53 Temperature 99.7 F H 99.7 F H 99.7 F H Pulse Rate 89 90 109 H Respiratory Rate 12 12 14 Blood Pressure 59/38 L 62/47 L 104/60 Pulse Oximetry 93 L 93 L 93 L 04/10/18 08:00 04/10/18 08:03 04/10/18 08:10 Temperature 99.7 F H 99.7 F H Pulse Rate 100 H 100 H Respiratory Rate 12 12 12 Blood Pressure 79/51 L Pulse Oximetry 96 95 98 04/10/18 08:13 04/10/18 08:23 04/10/18 08:24 Temperature 99.5 F 99.3 F Pulse Rate 120 H 117 H 117 H Respiratory Rate 12 15 15 Blood Pressure 135/70 130/73 Pulse Oximetry 98 99 04/10/18 08:33 04/10/18 08:43 04/10/18 08:53 Temperature 99.3 F 99.3 F 99.1 F Pulse Rate 115 H 110 H 113 H Respiratory Rate 15 15 15 Blood Pressure 131/75 132/73 140/75 Pulse Oximetry 99 99 100 04/10/18 09:00 04/10/18 09:03 04/10/18 09:13 Temperature 99.1 F 99.1 F 99.1 F Pulse Rate 117 H 116 H 110 H Respiratory Rate 15 15 15 Blood Pressure 166/79 H 140/79 Pulse Oximetry 100 100 100 04/10/18 09:23 04/10/18 09:33 04/10/18 09:43 Temperature 99.1 F 99.0 F 99.0 F Pulse Rate 108 H 104 H 110 H Respiratory Rate 15 15 15 Blood Pressure 145/77 H 132/76 148/86 H Pulse Oximetry 100 99 100 04/10/18 09:53 04/10/18 10:00 04/10/18 10:03 Temperature 99.1 F 99.1 F 99.1 F Pulse Rate 113 H 121 H 131 H Respiratory Rate 15 15 22 Blood Pressure 150/85 H 156/81 H Pulse Oximetry 100 100 100 04/10/18 10:13 04/10/18 10:23 04/10/18 10:50 Temperature 99.3 F 99.0 F 98.8 F Pulse Rate 142 H 140 H 139 H Respiratory Rate 15 15 15 Blood Pressure 177/80 H 156/77 H Pulse Oximetry 97 94 L 91 L 04/10/18 11:00 04/10/18 11:05 04/10/18 11:20 Temperature 98.8 F 98.8 F 99.0 F Pulse Rate 134 H 131 H 127 H Respiratory Rate 15 15 15 Blood Pressure 111/62 107/61 Pulse Oximetry 92 L 92 L 92 L 04/10/18 11:35 04/10/18 11:50 04/10/18 12:00 Temperature 99.0 F 99.0 F 99.0 F Pulse Rate 123 H 130 H 125 H Respiratory Rate 15 16 15 Blood Pressure 113/61 152/70 H Pulse Oximetry 91 L 91 L 93 L 04/10/18 12:05 04/10/18 12:20 04/10/18 12:24 Temperature 99.0 F 99.0 F Pulse Rate 121 H 128 H Respiratory Rate 15 15 15 Blood Pressure 144/71 H 163/83 H Pulse Oximetry 92 L 93 L 93 L 04/10/18 12:35 04/10/18 12:50 04/10/18 13:00 Temperature 99.0 F 97.3 F L 97.3 F L Pulse Rate 135 H 136 H 131 H Respiratory Rate 15 15 15 Blood Pressure 166/88 H 141/85 H Pulse Oximetry 95 93 L 92 L 04/10/18 13:05 04/10/18 13:20 04/10/18 13:35 Temperature 97.3 F L 97.3 F L 97.5 F L Pulse Rate 126 H 129 H 123 H Respiratory Rate 15 15 15 Blood Pressure 143/73 H 146/76 H 138/73 Pulse Oximetry 92 L 93 L 91 L 04/10/18 13:50 04/10/18 14:00 04/10/18 14:05 Temperature 97.3 F L 97.5 F L 97.5 F L Pulse Rate 130 H 127 H 127 H Respiratory Rate 15 15 15 Blood Pressure 170/81 H 161/77 H Pulse Oximetry 93 L 93 L 93 L 04/10/18 14:20 04/10/18 14:35 04/10/18 14:50 Temperature 97.5 F L 97.5 F L 97.7 F Pulse Rate 125 H 128 H 116 H Respiratory Rate 15 15 15 Blood Pressure 151/72 H 161/83 H 112/59 L Pulse Oximetry 93 L 95 92 L 04/10/18 15:00 04/10/18 15:05 04/10/18 15:20 Temperature 97.7 F 97.7 F 97.7 F Pulse Rate 112 H 119 H 118 H Respiratory Rate 15 15 15 Blood Pressure 98/69 L 132/76 Pulse Oximetry 92 L 94 L 93 L 04/10/18 15:35 04/10/18 15:50 04/10/18 16:00 Temperature 97.7 F 97.5 F L 99.3 F Pulse Rate 116 H 116 H 125 H Respiratory Rate 15 15 15 Blood Pressure 125/66 136/78 Pulse Oximetry 95 95 96 04/10/18 16:05 04/10/18 16:20 04/10/18 16:35 Temperature 99.1 F 99.1 F 99.3 F Pulse Rate 127 H 122 H 111 H Respiratory Rate 15 15 15 Blood Pressure 153/92 H 139/83 104/67 Pulse Oximetry 96 95 94 L 04/10/18 16:50 04/10/18 17:00 04/10/18 17:05 Temperature 99.5 F 99.5 F 99.5 F Pulse Rate 119 H 115 H 108 H Respiratory Rate 15 15 15 Blood Pressure 118/77 92/52 L Pulse Oximetry 95 95 94 L 04/10/18 17:16 04/10/18 17:18 04/10/18 17:20 Temperature 99.7 F H Pulse Rate 116 H 113 H Respiratory Rate 15 15 15 Blood Pressure 103/68 Pulse Oximetry 95 96 04/10/18 17:35 04/10/18 17:50 04/10/18 18:00 Temperature 99.7 F H 99.5 F 99.5 F Pulse Rate 101 H 111 H 100 H Respiratory Rate 15 15 15 Blood Pressure 81/52 L 120/73 Pulse Oximetry 95 95 94 L 04/10/18 18:05 04/10/18 18:20 04/10/18 18:35 Temperature 99.7 F H 99.7 F H Pulse Rate 100 H 102 H 114 H Respiratory Rate 15 15 15 Blood Pressure 98/61 L 98/64 L 112/69 Pulse Oximetry 95 95 94 L 04/10/18 18:50 Temperature 98.8 F Pulse Rate 108 H Respiratory Rate 15 Blood Pressure Pulse Oximetry 95 Intake & Output 04/09/18 04/10/18 04/10/18 18:59 06:59 18:59 Intake Total 1816 / 1816 1041 / 1041 1777 / 1777 Output Total 2200 / 2200 900 / 900 500 / 500 Balance -384 / -384 141 / 141 1277 / 1277 Weight 87.7 kg Intake: IV 516 / 516 500 / 500 1316 / 1316 Precedex Inj 1,000 MCG In NS 250 / 250 250 / 250 Inj 240 ML @ 0.2 MCG/KG/HR 4.31 mls/hr IV.CONT TITRATE PRN Rx# :[id number] NS Inj 1,000 ML @ 30 mls/hr IV. 0 / 0 CONT .Q24H GIGI Rx#:[id number] NS Inj 500 ML @ 500 mls/hr IV. 500 / 500 CONT .Q1H ONE Rx#:[id number] Flexbumin 25% Inj 100 ML @ 60 200 / 200 mls/hr IV.SIG Q100M GIGI Rx#: [id number] 1/2 Normal Saline Inj 1,000 ML 1000 / 1000 @ Wide Open IV.SIG BOLUS ONE Rx #:[id number] fentaNYL 10 mcg/mL Premix Drip 66 / 66 66 / 2,500 mcg In 250 ml @ 50 MCG/HR 5 mls/hr IV.SIG TITRATE PRN Rx #:[id number] Tube Feeding 700 / 700 281 / 281 461 / 461 Tube Irrigant 260 / 260 Water Bolus Amount 600 / 600 Output: Urine Amount (Catheter) 2200 / 2200 900 / 900 500 / 500 Indwelling Urethral Catheter 2200 / 2200 900 / 900 500 / 500 Other: Date of Last Bowel Movement 04/09/18 04/08/18 # Bowel Movements 1 Narrative: Patiently is currently intubated. . Patient is fully alert and oriented. Does not appear to be in any acute distress. GENERAL: Appears to be in no acute distress. Resting comfortably, intubated, follows commands alert and oriented. SKIN: Warm and dry, intact, No lesions seen. HEAD: Normocephalic. EYES: No scleral icterus. No injection or drainage. Pupils are equal and reactive to light. NECK: Supple, trachea midline. No JVD or lymphadenopathy. CARDIOVASCULAR: Tachycardic, normal rhythm without murmurs, gallops, or rubs. RESPIRATORY: Breath sounds equal bilaterally. No accessory muscle use. Breath sounds are clear bilaterally to auscultation. GASTROINTESTINAL: Abdomen soft, non-tender, distended. Hypoactive bowel sounds. BACK: Nontender without obvious deformity. No CVA tenderness. Extremities with no lesions. - Urinary Catheter Management Indwelling Urethral Catheter Cath placed during this visit: yes Reason for continuing: Hourly intake/output Insertion date: 04/10/18 Insertion time: 01:45 Results - Labs CBC & Chem 7: 04/10/18 04:46 04/10/18 17:50 Laboratory Results - last 24 hr 04/10/18 04/10/18 04/10/18 04:46 04:46 04:46 WBC 13.8 H RBC 3.66 L Hgb 11.4 L Hct 34.7 L MCV 94.7 MCH 31.2 MCHC 33.0 RDW 15.2 Plt Count 343 MPV 8.6 Sodium 151 H Potassium 3.4 L Chloride 115 H Carbon Dioxide 27.6 Anion Gap 8 BUN 47 H Creatinine 2.06 H Estimated GFR 32 L Random Glucose 156 H Calcium 9.0 Total Bilirubin 0.7 Cancelled Direct Bilirubin 0.3 H Cancelled Indirect Bilirubin 0.4 Cancelled AST 68 H Cancelled ALT 183 H Cancelled Alkaline Phosphatase 70 Cancelled Total Protein 6.8 Cancelled Albumin 3.6 D Cancelled Amylase 377 H Cancelled Lipase 276 Cancelled Cortisol Urine Eosinophils Ur Random Creatinine Ur Random Sodium 04/10/18 04/10/18 04/10/18 10:00 10:00 10:35 WBC RBC Hgb Hct MCV MCH MCHC RDW Plt Count MPV Sodium Potassium Chloride Carbon Dioxide Anion Gap BUN Creatinine Estimated GFR Random Glucose Calcium Total Bilirubin Direct Bilirubin Indirect Bilirubin AST ALT Alkaline Phosphatase Total Protein Albumin Amylase Lipase Cortisol 27.8 Urine Eosinophils None seen Ur Random Creatinine 96 Ur Random Sodium 33 04/10/18 17:50 WBC RBC Hgb Hct MCV MCH MCHC RDW Plt Count MPV Sodium Potassium 3.7 Chloride Carbon Dioxide Anion Gap BUN Creatinine Estimated GFR Random Glucose Calcium Total Bilirubin Direct Bilirubin Indirect Bilirubin AST ALT Alkaline Phosphatase Total Protein Albumin Amylase Lipase Cortisol Urine Eosinophils Ur Random Creatinine Ur Random Sodium - Imaging Impressions Abdomen X-Ray 04/09/18 20:57 CONCLUSION: Gastric tube tip within the stomach. Abdomen/Bladder Ultrasound 04/10/18 08:05 CONCLUSION: 1. Probable complex cyst coming off the right lower pole kidney appears smaller since 2017 CT examination of the abdomen. Assessment and Plan - Assessment (1) Respiratory failure Code(s): J96.90 - Respiratory failure, unspecified, unspecified whether with hypoxia or hypercapnia Status: Acute (2) Atelectasis Code(s): J98.11 - Atelectasis Status: Acute (3) Neck pain, chronic Code(s): M54.2 - Cervicalgia; G89.29 - Other chronic pain Status: Chronic (4) Other cervical disc degeneration at C5-C6 level Code(s): M50.322 - Other cervical disc degeneration at C5-C6 level Status: Chronic (5) Protrusion of cervical intervertebral disc Code(s): M50.20 - Other cervical disc displacement, unspecified cervical region Status: Chronic (6) Adult failure to thrive Code(s): R62.7 - Adult failure to thrive Status: Acute (7) Shortness of breath Code(s): R06.02 - Shortness of breath Status: Acute (8) Weakness generalized Code(s): R53.1 - Weakness Status: Acute (9) Acute hyponatremia Code(s): E87.1 - Hypo-osmolality and hyponatremia Status: Acute (10) Ventilator dependent Code(s): Z99.11 - Dependence on respirator [ventilator] status Status: Acute - Plan 1 wean vent in a.m. to CPAP 5 x 12 cm and FiO2 40% 2 keep on AC rate of 16 at night. 3. Continue tube feeds at 50 cc/h 4. DuoNeb nebs every 6 hours as needed 5. Precedex for sedation 6. Tracheal lavage and suction as needed 7. Continue Lovenox 40 mg subcu daily 8. Continue antibiotic 9. CBC BMP in a.m. 10. Stop theophylline if tachycardic 11. PT evaluation 12. Discussed with family and patient about possible trach if he fails to wean off the ventilator.
[2018-04-10 19:24] LABS: Bacteria,Urine Rare /hpf; Bilirubin,Urine Negative (Negative); Clarity,Urine Cloudy (Clear); Color,Urine Amber (Yellw/Straw); Glucose,Urine (UA) Negative (Negative); Hyaline Casts,Urine 63 /lpf (0-3); Leukocyte Esterase,Urine Moderate (Negative); Mucus,Urine Moderate /lpf (Occasional); Nitrite,Urine Negative (Negative); Specific Gravity,Urine 1.019 (1.002-1.035); Squamous Epithelial Cell,Urine <1 /hpf (0-5)
[2018-04-10] MEDS: Acetaminophen 325 MG Tablet PO PRN (20:24)
[2018-04-11] MEDS: Artificial Tears Opth Drops 15 ML Bottle EACH EYE SCH ×3 (01:45→18:45)
[2018-04-11] MEDS: Oral Hygiene Kit OROPHARYNG SCH ×4 (01:45→18:45)
[2018-04-11] MEDS: Dexmedetomidine Inj 1,000 MCG in Sodium Chlor 0.9% Inj 240 ML IV.CONT PRN ×2 (01:47→18:46)
[2018-04-11 03:53] LABS: Baso # (Auto) 0.1 th/mm3 (0.0-0.2); Baso % (Auto) 0.4 % (0.0-2.0); Eos # (Auto) 0.1 th/mm3 (0.0-0.4); Eos % (Auto) 0.2 % (0.0-4.0); Hematocrit 37.5 % (39.0-51.0); Hemoglobin 12.4 gm/dL (13.0-17.0); Lymph # (Auto) 0.5 th/mm3 (1.0-4.8); Lymph % (Auto) 2.1 % (9.0-44.0); Mean Corpuscular HGB Conc 33.1 % (32.0-36.0); Mean Corpuscular Hemoglobin 31.1 pg (27.0-34.0); Mono # (Auto) 0.8 th/mm3 (0.0-0.9); Mono % (Auto) 3.3 % (0.0-8.0); Neut # (Auto) 23.1 th/mm3 (1.8-7.7); Platelet Count 401 th/mm3 (150-450); Red Blood Count 3.99 mil/mm3 (4.50-5.90); Red Cell Distribution Width 14.8 % (11.6-17.2); White Blood Count 24.6 th/mm3 (4.0-11.0)
[2018-04-11 04:19] LABS: Alanine Aminotransferase 180 U/L (12-78); Albumin 3.6 g/dL (3.4-5.0); Alkaline Phosphatase 78 U/L (45-117); Anion Gap 8 meq/L (5-15); Aspartate Aminotransferase 74 U/L (15-37); Blood Urea Nitrogen 60 mg/dL (7-18); Calcium 9.7 mg/dL (8.5-10.1); Carbon Dioxide 28.4 meq/L (21.0-32.0); Chloride 114 meq/L (98-107); Glomerular Filtration Rate 24 mL/min (>89); Glucose,Random 106 mg/dL (74-106); Magnesium 3.3 mg/dL (1.5-2.5); Phosphorus 5.1 mg/dL (2.5-4.9); Potassium 3.8 meq/L (3.5-5.1); Sodium 150 meq/L (136-145); Total Protein 7.4 g/dL (6.4-8.2)
[2018-04-11] MEDS: Levothyroxine 125 MCG Tablet PO SCH (05:05)
--- NOTE | 2018-04-11 05:14 | XR ---
EXAM DATE: 04/11/2018 4:22 AM EST AGE/SEX: 67 years / Male INDICATIONS: Respiratory failure. CLINICAL DATA: This is the patient's subsequent encounter. Patient reports that signs and symptoms h ave been present for 1 week and indicates a pain score of Nonresponsive. MEDICAL/SURGICAL HISTORY: Gastroesophageal reflux disease. Sepsis. Inguinal hernia repair. Jasiel rodiscectomy. COMPARISON: C, CHEST 1V SINGLE AP, 04/09/2018. . FINDINGS: Endotracheal tube in good position. NG coiled in stomach. Bilateral mostly basilar airspace disease. No effusion. No pneumothorax. CONCLUSION: Stable exam. Support apparatus unchanged. Mild basilar airspace disease persists. Electronically signed by: Howard Cook MD Board Certified Radiologist 04/11/2018 5:13 AM EST
[2018-04-11] MEDS: Acetaminophen 325 MG Tablet PO PRN ×2 (06:19→22:36)
[2018-04-11] MEDS ORDERED: Etomidate Inj 40 MG/20 ML Vial IV.PUSH ONE (07:16)
[2018-04-11] MEDS ORDERED: Methylnaltrexone Inj 12 MG/0.6 ML Vial SQ ONE (07:18)
--- NOTE | 2018-04-11 07:24 | P.PNCC ---
Subjective Subjective Remarks/Hospital Course: This 67-year-old came into the emergency room today with his and daughter. On 02/13/2018, he had a microdiscectomy, C5-C6, by Dr. Schwarz. He was discharged home the next day. A few days after, he had not been feeling well, short of breath, disoriented, generally weak, symptoms were getting worse, disorientation was worse. He was referred to emergency department by his primary care physician for an evaluation. In the ED he was found to be in severe hypercarbic respiratory acidosis and was intubated by ED attending. 04/01: CO2 retention corrected. Remains mildly alkalotic due to chronic CO2 elevation. PH normalized. Still requiring vasopressor therapy with norepinephrine. Broad-spectrum antibiotic coverage started. Lumbar puncture performed with opening pressure 20 and crystal-clear fluid, sent for cell counts , chemistries and culture. HSV included. One extra tube sent for future studies if necessary. Ammonia level 71 - repeat daily. 04/02: CSF appears benign. Repeat ammonia level normal. Gamma GT normal. Cardiac echo estimated of 45% ejection fraction requires a little additional investigation -patient has been chronically short of breath for several weeks now. Leukocytosis and left shift persists. Gram-positive cocci and white cells seen in sputum. This man clearly became acutely and critically ill - exact cause still eludes us. 04/03: Leukocytosis improved. Remains quite rigid when stimulated. Continues to move 4 limbs with purpose and follows commands with 4 limbs. Sputum demonstrates white blood cells and gram-negative rods. 04/04: Improved color and perfusion. Extubated yesterday afternoon but failed after about 45 minutes -developed somnolence then obtundation, appeared to be having difficulty taking a breath, concern for vocal cord dysfunction. On reintubation the cord edges were irregular but otherwise normal in appearance. I could not assess cord function as patient was not alert enough to cooperate with commands. We will definitely pursue possibilities of vocal cord dysfunction and or phrenic nerve paralysis once we get him extubated. Ideally, a sniff test under fluoroscopy would demonstrate any paradoxical diaphragm motion. 04/05: Afebrile. Neurologically appears intact. Daughter concerned about "appears distant" however on 40 mcg/kg/min of propofol and 250 mcg an hour fentanyl. No bowel movement since admission. Tube feeding only at 20 cc an hour. 04/06: Afebrile. Neurologically intact. Following commands.. Positive BM. Labile blood pressures yesterday. Replace potassium currently. 04/07: Patient writing notes today. Chest x-ray clear. Elevated left diaphragm , probably dysfunctional. Continued encephalopathy and generalized weakness chris very concerning. We will try Aminophyllin today to see if we can get some diaphragm and central nervous system stimulation. 04/08: Started on theophylline yesterday. Check level in a.m. Will attempt PSV trial today. Noted pulmonology requests possible T-bar with ABG when appropriate. Afebrile. 04/09: T-max 100. theophylline currently 3.7. Currently on CPAP trials. 02/18. 45%. Check ABG at 10 today. Desaturated yesterday currently back at 40%. 04/10: Resting in bed. Episode of nausea overnight. Negative workup. Evaluated positive BM 04/08. Patient more agitated overnight. Propofol discontinued due to hypotension. Currently on fentanyl drip. Theophylline. Creatinine currently 2.0 we will consult nephrology. Discontinue lisinopril. Receiving one half normal saline bolus currently. SUBJECTIVE: 04/11: T-max 101.1. Increasing O2 records.Increasing white blood cell count. For the cuff is overinflated to palpate the vocal cords. Leak by examination. Will change ET tube in place central line today. Empirically start antibiotics for aspiration. Not tolerating tube feeds and currently to low inner wall suction. Check KUB after ET tube exchange and central line placement. Restart metoclopramide. Positive BMs. Objective Vital Signs / I&O: Vital Signs 04/10/18 07:33 04/10/18 07:43 04/10/18 07:50 Temperature 99.7 F H 99.7 F H 99.7 F H Pulse Rate 105 H 94 H 89 Respiratory Rate 12 12 12 Blood Pressure 71/47 L 63/41 L 59/38 L Pulse Oximetry 93 L 93 L 93 L 04/10/18 07:51 04/10/18 07:53 04/10/18 08:00 Temperature 99.7 F H 99.7 F H 99.7 F H Pulse Rate 90 109 H 100 H Respiratory Rate 12 14 12 Blood Pressure 62/47 L 104/60 Pulse Oximetry 93 L 93 L 96 04/10/18 08:03 04/10/18 08:10 04/10/18 08:13 Temperature 99.7 F H 99.5 F Pulse Rate 100 H 120 H Respiratory Rate 12 12 12 Blood Pressure 79/51 L 135/70 Pulse Oximetry 95 98 98 04/10/18 08:23 04/10/18 08:24 04/10/18 08:33 Temperature 99.3 F 99.3 F Pulse Rate 117 H 117 H 115 H Respiratory Rate 15 15 15 Blood Pressure 130/73 131/75 Pulse Oximetry 99 99 04/10/18 08:43 04/10/18 08:53 04/10/18 09:00 Temperature 99.3 F 99.1 F 99.1 F Pulse Rate 110 H 113 H 117 H Respiratory Rate 15 15 15 Blood Pressure 132/73 140/75 Pulse Oximetry 99 100 100 04/10/18 09:03 04/10/18 09:13 04/10/18 09:23 Temperature 99.1 F 99.1 F 99.1 F Pulse Rate 116 H 110 H 108 H Respiratory Rate 15 15 15 Blood Pressure 166/79 H 140/79 145/77 H Pulse Oximetry 100 100 100 04/10/18 09:33 04/10/18 09:43 04/10/18 09:53 Temperature 99.0 F 99.0 F 99.1 F Pulse Rate 104 H 110 H 113 H Respiratory Rate 15 15 15 Blood Pressure 132/76 148/86 H 150/85 H Pulse Oximetry 99 100 100 04/10/18 10:00 04/10/18 10:03 04/10/18 10:13 Temperature 99.1 F 99.1 F 99.3 F Pulse Rate 121 H 131 H 142 H Respiratory Rate 15 22 15 Blood Pressure 156/81 H Pulse Oximetry 100 100 97 04/10/18 10:23 04/10/18 10:50 04/10/18 11:00 Temperature 99.0 F 98.8 F 98.8 F Pulse Rate 140 H 139 H 134 H Respiratory Rate 15 15 15 Blood Pressure 177/80 H 156/77 H Pulse Oximetry 94 L 91 L 92 L 04/10/18 11:05 04/10/18 11:20 04/10/18 11:35 Temperature 98.8 F 99.0 F 99.0 F Pulse Rate 131 H 127 H 123 H Respiratory Rate 15 15 15 Blood Pressure 111/62 107/61 113/61 Pulse Oximetry 92 L 92 L 91 L 04/10/18 11:50 04/10/18 12:00 04/10/18 12:05 Temperature 99.0 F 99.0 F 99.0 F Pulse Rate 130 H 125 H 121 H Respiratory Rate 16 15 15 Blood Pressure 152/70 H 144/71 H Pulse Oximetry 91 L 93 L 92 L 04/10/18 12:20 04/10/18 12:24 04/10/18 12:35 Temperature 99.0 F 99.0 F Pulse Rate 128 H 135 H Respiratory Rate 15 15 15 Blood Pressure 163/83 H 166/88 H Pulse Oximetry 93 L 93 L 95 04/10/18 12:50 04/10/18 13:00 04/10/18 13:05 Temperature 97.3 F L 97.3 F L 97.3 F L Pulse Rate 136 H 131 H 126 H Respiratory Rate 15 15 15 Blood Pressure 141/85 H 143/73 H Pulse Oximetry 93 L 92 L 92 L 04/10/18 13:20 04/10/18 13:35 04/10/18 13:50 Temperature 97.3 F L 97.5 F L 97.3 F L Pulse Rate 129 H 123 H 130 H Respiratory Rate 15 15 15 Blood Pressure 146/76 H 138/73 170/81 H Pulse Oximetry 93 L 91 L 93 L 04/10/18 14:00 04/10/18 14:05 04/10/18 14:20 Temperature 97.5 F L 97.5 F L 97.5 F L Pulse Rate 127 H 127 H 125 H Respiratory Rate 15 15 15 Blood Pressure 161/77 H 151/72 H Pulse Oximetry 93 L 93 L 93 L 04/10/18 14:35 04/10/18 14:50 04/10/18 15:00 Temperature 97.5 F L 97.7 F 97.7 F Pulse Rate 128 H 116 H 112 H Respiratory Rate 15 15 15 Blood Pressure 161/83 H 112/59 L Pulse Oximetry 95 92 L 92 L 04/10/18 15:05 04/10/18 15:20 04/10/18 15:35 Temperature 97.7 F 97.7 F 97.7 F Pulse Rate 119 H 118 H 116 H Respiratory Rate 15 15 15 Blood Pressure 98/69 L 132/76 125/66 Pulse Oximetry 94 L 93 L 95 04/10/18 15:50 04/10/18 16:00 04/10/18 16:05 Temperature 97.5 F L 99.3 F 99.1 F Pulse Rate 116 H 125 H 127 H Respiratory Rate 15 15 15 Blood Pressure 136/78 153/92 H Pulse Oximetry 95 96 96 04/10/18 16:20 04/10/18 16:35 04/10/18 16:50 Temperature 99.1 F 99.3 F 99.5 F Pulse Rate 122 H 111 H 119 H Respiratory Rate 15 15 15 Blood Pressure 139/83 104/67 118/77 Pulse Oximetry 95 94 L 95 04/10/18 17:00 04/10/18 17:05 04/10/18 17:16 Temperature 99.5 F 99.5 F Pulse Rate 115 H 108 H Respiratory Rate 15 15 15 Blood Pressure 92/52 L Pulse Oximetry 95 94 L 95 04/10/18 17:18 04/10/18 17:20 04/10/18 17:35 Temperature 99.7 F H 99.7 F H Pulse Rate 116 H 113 H 101 H Respiratory Rate 15 15 15 Blood Pressure 103/68 81/52 L Pulse Oximetry 96 95 04/10/18 17:50 04/10/18 18:00 04/10/18 18:05 Temperature 99.5 F 99.5 F 99.7 F H Pulse Rate 111 H 100 H 100 H Respiratory Rate 15 15 15 Blood Pressure 120/73 98/61 L Pulse Oximetry 95 94 L 95 04/10/18 18:20 04/10/18 18:35 04/10/18 18:50 Temperature 99.7 F H 98.8 F Pulse Rate 102 H 114 H 108 H Respiratory Rate 15 15 15 Blood Pressure 98/64 L 112/69 Pulse Oximetry 95 94 L 95 04/10/18 20:00 04/10/18 20:05 04/10/18 20:20 Temperature 99.1 F 99.3 F 99.3 F Pulse Rate 106 H 106 H 108 H Respiratory Rate 15 15 15 Blood Pressure 77/52 L 106/64 Pulse Oximetry 93 L 93 L 93 L 04/10/18 20:35 04/10/18 20:50 04/10/18 21:00 Temperature 99.5 F 99.5 F 99.5 F Pulse Rate 110 H 114 H 134 H Respiratory Rate 15 15 15 Blood Pressure 125/82 118/73 Pulse Oximetry 93 L 92 L 94 L 04/10/18 21:05 04/10/18 21:20 04/10/18 21:34 Temperature 99.5 F 99.5 F Pulse Rate 133 H 141 H Respiratory Rate 15 15 16 Blood Pressure 151/92 H 170/91 H Pulse Oximetry 93 L 93 L 93 L 04/10/18 21:35 04/10/18 22:00 04/10/18 22:05 Temperature 99.7 F H 99.9 F H 99.9 F H Pulse Rate 140 H 133 H 121 H Respiratory Rate 15 15 15 Blood Pressure 154/89 H 86/60 L Pulse Oximetry 90 L 93 L 88 L 04/10/18 22:35 04/10/18 22:37 04/10/18 22:46 Temperature 100.2 F H 100.2 F H 100.2 F H Pulse Rate 81 81 97 H Respiratory Rate 15 15 15 Blood Pressure 51/33 L 74/47 L 95/49 L Pulse Oximetry 88 L 91 L 90 L 04/10/18 23:00 04/10/18 23:01 04/10/18 23:05 Temperature 100.2 F H 100.2 F H 100.2 F H Pulse Rate 77 77 78 Respiratory Rate 15 15 15 Blood Pressure 54/35 L 90/59 L Pulse Oximetry 95 95 96 04/10/18 23:16 04/10/18 23:31 04/10/18 23:46 Temperature 100.2 F H 100.2 F H 100.4 F H Pulse Rate 95 H 112 H 86 Respiratory Rate 15 16 15 Blood Pressure 92/61 L 126/80 101/56 L Pulse Oximetry 92 L 97 94 L 04/11/18 00:00 04/11/18 00:01 04/11/18 00:16 Temperature Pulse Rate 134 H 132 H 111 H Respiratory Rate 17 15 15 Blood Pressure 116/79 78/52 L Pulse Oximetry 91 L 93 L 89 L 04/11/18 00:21 04/11/18 00:31 04/11/18 00:46 Temperature Pulse Rate 104 H 91 H Respiratory Rate 15 15 15 Blood Pressure 74/42 L 77/49 L Pulse Oximetry 93 L 93 L 90 L 04/11/18 01:00 04/11/18 01:01 04/11/18 01:16 Temperature 99.0 F 99.0 F 99.3 F Pulse Rate 97 H 103 H 93 H Respiratory Rate 15 15 15 Blood Pressure 77/52 L 72/51 L Pulse Oximetry 90 L 90 L 91 L 04/11/18 01:31 04/11/18 01:46 04/11/18 02:00 Temperature 99.5 F 99.5 F 99.7 F H Pulse Rate 95 H 104 H 81 Respiratory Rate 15 15 15 Blood Pressure 74/54 L 98/60 L Pulse Oximetry 92 L 95 96 04/11/18 02:01 04/11/18 02:06 04/11/18 02:16 Temperature 99.7 F H 99.7 F H 99.7 F H Pulse Rate 81 80 83 Respiratory Rate 15 15 15 Blood Pressure 69/51 L 80/51 L 94/66 L Pulse Oximetry 96 96 97 04/11/18 02:31 04/11/18 02:46 04/11/18 03:00 Temperature 99.7 F H 99.7 F H 99.7 F H Pulse Rate 83 81 82 Respiratory Rate 15 15 15 Blood Pressure 99/67 L 99/66 L Pulse Oximetry 96 96 94 L 04/11/18 03:01 04/11/18 03:16 04/11/18 03:31 Temperature 99.7 F H 99.7 F H 99.9 F H Pulse Rate 82 116 H 105 H Respiratory Rate 15 15 15 Blood Pressure 105/58 L 130/67 124/75 Pulse Oximetry 94 L 94 L 04/11/18 03:46 04/11/18 04:00 04/11/18 04:01 Temperature 100.2 F H 100.2 F H 100.2 F H Pulse Rate 89 82 81 Respiratory Rate 15 15 15 Blood Pressure 101/59 L 94/52 L Pulse Oximetry 93 L 94 L 94 L 04/11/18 04:16 04/11/18 04:20 04/11/18 04:31 Temperature 100.4 F H 100.2 F H Pulse Rate 103 H 116 H 97 H Respiratory Rate 15 15 15 Blood Pressure 127/74 111/66 Pulse Oximetry 94 L 94 L 94 L 04/11/18 04:46 04/11/18 05:00 04/11/18 05:01 Temperature 100.2 F H 100.2 F H 100.2 F H Pulse Rate 89 84 84 Respiratory Rate 15 15 15 Blood Pressure 103/60 106/59 L Pulse Oximetry 94 L 94 L 94 L 04/11/18 05:16 04/11/18 05:31 04/11/18 05:46 Temperature 100.2 F H 100.2 F H 100.2 F H Pulse Rate 85 82 81 Respiratory Rate 15 15 15 Blood Pressure 105/61 105/68 105/61 Pulse Oximetry 95 96 96 04/11/18 06:00 04/11/18 06:01 Temperature 100.2 F H 101.1 F H Pulse Rate 81 80 Respiratory Rate 15 15 Blood Pressure 106/60 Pulse Oximetry 96 96 Intake & Output 04/10/18 04/11/18 04/11/18 18:59 06:59 18:59 Intake Total 1777 / 1777 840 / 840 Output Total 500 / 500 935 / 935 Balance 1277 / 1277 -95 / -95 Weight 88.3 kg Intake: IV 1316 / 1316 500 / 500 Precedex Inj 1,000 MCG In NS 250 / 250 250 / 250 Inj 240 ML @ 0.2 MCG/KG/HR 4.31 mls/hr IV.CONT TITRATE PRN Rx# :[id number] 1/2 Normal Saline Inj 1,000 ML 1000 / 1000 @ Wide Open IV.SIG BOLUS ONE Rx #:[id number] fentaNYL 10 mcg/mL Premix Drip 66 / 66 250 / 250 2,500 mcg In 250 ml @ 50 MCG/HR 5 mls/hr IV.SIG TITRATE PRN Rx #:[id number] Tube Feeding 461 / 461 220 / 220 Tube Irrigant 120 / 120 Output: Urine Amount (Catheter) 500 / 500 335 / 335 Indwelling Urethral Catheter 500 / 500 335 / 335 Gastric Drainage 600 / 600 Orogastric Tube 600 / 600 Other: Date of Last Bowel Movement 04/11/18 # Bowel Movements 1 # Incontinent Bowel Movements 1 Result Diagrams: 04/11/18 03:13 04/11/18 03:13 Other Results: Microbiology 03/31/18 19:04 Blood - Peripheral Aerobic Blood Culture - Final No growth in 5 days 03/31/18 19:04 Blood - Peripheral Anaerobic Blood Culture - Final No growth in 5 days 03/31/18 19:09 Blood - Peripheral Aerobic Blood Culture - Final No growth in 5 days 03/31/18 19:09 Blood - Peripheral Anaerobic Blood Culture - Final No growth in 5 days 04/01/18 18:15 Lumbar Puncture Gram Stain - Final 04/01/18 18:15 Lumbar Puncture CSF Culture - Final No growth in 72 hours 04/01/18 06:00 Sputum - Endotracheal Gram Stain - Final 04/01/18 06:00 Sputum - Endotracheal Sputum Culture - Final Klebsiella oxytoca 04/01/18 06:00 Nasal Wash Influenza Types A,B Antigen - Final Negative for FLU A and B antigen Infection due to influenza A or B cannot be ruled out since the antigen present in the sample may be below the detection limit of the test. Imaging: Head MRI 03/31/18 00:00 CONCLUSION: Negative exam Chest X-Ray 03/31/18 12:15 CONCLUSION: 1. Hypoinflation with probable atelectatic changes above the left hemidiaphragm. 2. Otherwise, no acute cardiopulmonary process. Head CT 03/31/18 12:16 CONCLUSION: 1. Negative CT Head non contrast. . Chest CTA 03/31/18 14:39 CONCLUSION: 1. Bibasilar atelectatic changes, left greater than right. No confluent infiltrate. 2. No pulmonary embolus. 3. Atherosclerotic calcification of the coronary arteries. Chest X-Ray 03/31/18 16:11 CONCLUSION: 1. Hypoinflation with persistent left basilar atelectasis. 2. Endotracheal tube tip at the clavicular heads, above the duane. Cervical Spine MRI 03/31/18 16:17 CONCLUSION: 1. Status post fusion at the C5-C6 level. There is susceptibility artifact from the hardware. 2. A significant area of stenosis in the thecal sac is not seen. 3. Facet hypertrophy seen throughout with scattered areas of neural foraminal narrowing as described above. 4. The patient is intubated with fluid in the hypopharynx, laryngeal pharynx, and upper trachea around the ET tube and above the tracheal ET tube cuff. 5. The does appear to be some mild soft tissue swelling in the prevertebral region best seen on the sagittal images. Chest X-Ray 04/01/18 04:29 CONCLUSION: 1. Nasogastric tube and left subclavian central venous catheter now in place. 2. Mild bilateral lower lung zone atelectasis unchanged. No evidence of pneumothorax. Chest X-Ray 04/02/18 04:00 CONCLUSION: No significant interval change. Mild bilateral lower lung zone atelectasis. Chest X-Ray 04/04/18 00:00 CONCLUSION: Stable chest. Persistent bibasilar patchy opacities. Chest X-Ray 04/06/18 06:00 CONCLUSION: Some improvement in the bibasilar consolidations. Chest X-Ray 04/07/18 06:00 CONCLUSION: ET tube in good position. Lungs are grossly clear. Chest X-Ray 04/08/18 16:38 CONCLUSION: No significant interval change. Mild patchy bilateral lower lung opacity. Chest X-Ray 04/09/18 06:00 CONCLUSION: 1. No significant interval change. 2. Stable ETT and NGT. 3. Mild bilateral lower lobe patchy airspace disease. Abdomen X-Ray 04/09/18 20:57 CONCLUSION: Gastric tube tip within the stomach. Abdomen/Bladder Ultrasound 04/10/18 08:05 CONCLUSION: 1. Probable complex cyst coming off the right lower pole kidney appears smaller since 2017 CT examination of the abdomen. Chest X-Ray 04/11/18 06:00 CONCLUSION: Stable exam. Support apparatus unchanged. Mild basilar airspace disease persists. Objective Remarks: GENERAL: 67-year-old male currently orotracheally intubated in no acute distress SKIN: Warm and dry. HEAD: Atraumatic. Normocephalic. EYES: Pupils equal and round. No scleral icterus. No injection or drainage. ENT: No nasal bleeding or discharge. Mucous membranes pink and moist. NECK: Trachea midline. No JVD. CARDIOVASCULAR: Tachycardic, RR. S1, S2 no S4. RESPIRATORY: Raises shoulders to take spontaneous breaths. Clear to auscultation. Breath sounds equal bilaterally. GASTROINTESTINAL: Abdomen slightly protuberant/non-tender, slightly firm. Bowel sounds hypo-active. MUSCULOSKELETAL: Extremities without clubbing, cyanosis, trace to 1+ edema. No obvious deformities. NEUROLOGICAL: Follows commands and moves extremities to command. Assessment and Plan - Assessment and Plan Plan: Neuro/Psych: History of anterior C5/6 microdiscectomy with fusion Currently on fentanyl drip at 200 mcg an hour for vent synchrony Restarted dexmedetomidine drip. Will use midazolam in the interim Goal of RA SS 0 Daily sedation vacation Evaluate by neurosurgery/Dr. Viera. No intervention planned at this time CT brain/MRI C-spine negative EEG revealed no epileptic activity Neurology following. Recommend myasthenia gravis lab. Negative to date. Left diaphragm remains elevated, suspect not functioning well. CV: Systolic heart failure unknown if acute or chronic Essential hypertension Hyperlipidemia Ejection fraction 45% on admission. Appreciate cardiac evaluation by Dr. Escobedo. No plans at this time Holding amlodipine 10 mg daily, and metoprolol tartrate 12.5 mg twice daily for hypertension Holding clonidine 0.1 twice daily and lisinopril 5 mg daily in light of hypotension/lisinopril for acute kidney injury Continue pravastatin 40 mg daily for dyslipidemia. Continue aspirin 81 mg by mouth daily. Resp: Acute hypercapnic respiratory failure Klebsiella oxycodone pneumonia PRVC ventilation Ventilator bundle Head of bed at 30 degrees Albuterol/ipratropium aerosols every 4 hours with albuterol aerosols every 2 hours as needed dyspnea Spontaneous breathing trials once clinically indicated Will need sniff test to assess diaphragmatic function once extubated We will consult ENT to assess vocal cords when appropriate Appreciate pulmonary input. Spontaneous breathing trial daily. May benefit from tracheostomy We will discontinue theophylline 400 mg daily acute delirium. Noted level. 3.7 GI: Gastroesophageal reflux disease Transaminitis Hypoalbuminemia Currently on tube feedsNepro at 60 cc an hour due to acute kidney injury At home on pantoprazole 40 mg daily. Currently on lansoprazole 30 mg daily Docusate sodium/senna 1 tablet twice daily for bowel regimen. On lactulose 30 cc twice daily. Add polyethylene glycol 17 g twice daily and methylnaltrexone x1 today. Check KUB : Wood catheter if indicated for accurate I's and O's in a critical patient Converted to condom cath if possible. Endo: Hypothyroidism TSH 1.28. Continue levothyroxine 125 mg by mouth daily Sliding scale insulin if indicated to maintain euglycemia Renal: Kidney injury - acute Avoid all nephrotoxic medications Creatinine currently 2.7 Neurology consultation for evaluation this is contrast-induced nephropathy from scans 03/31. Avoid nephrotoxic medication. Lisinopril discontinued. Accurate I's and O's Monitor urine output Heme: Normocytic anemia Leukocytosis Monitor CBC daily. Follow trends per No indication for transfusion of blood proximal to this time. ID: Klebsiella oxycodone pneumonia sputum 04/01 Currently repleted therapy with ceftriaxone per infectious disease. Lumbar puncture negative. HSV negative No growth to date on other cultures aside from sputum Recheck blood cultures, sputum 04/02 pending FEN: Hypernatremia Hyper magnesium Free water 200 cc every 6 hours. Replace electrolytes as clinically indicated per ICU electrolyte protocol. Receiving 50 mEq potassium chloride by tube x1 now. Recheck electrolytes in a.m. MSK: PT evaluate and treat Access -Utilize peripheral IV. Central line if indicated Prophylaxis -GI -lansoprazole -DVT -SCD/enoxaparin Overall impression: Remains quite weak and debilitated. We need to continue to work on nutrition and gentle weaning. His cough is so weak he may benefit from a tracheostomy for pulmonary toilet. Daughter and and patient at bedside. Care plan discussed all questions answered. Critical care time 35 minutes.
--- NOTE | 2018-04-11 08:17 | P.PCN ---
Date of procedure: 04/11/18 Pre-op diagnosis: Cuff leak from ET tube Post-op diagnosis: same Procedure: DATE: 04/11/2018 PROCEDURE: Orotracheal intubation INDICATION: ET tube cuff leak DETAILS OF PROCEDURE The patient was placed in optimal position and preoxygenated with 100% FiO2 via bag valve mask. At the start oxygen saturation was 100%. The patient was administered 20 mg etomidate IV and 50 mg rocuronium IV. I entered the oropharynx with a size 4 laryngoscope blade and obtained a grade 2 view of the airway. On single attempt a size 8.5 cuffed endotracheal tube was passed through the vocal cords. Correct tube location was confirmed with end tidal CO2 detector and by auscultating over bilateral lung ceron. The endotracheal tube was secured with adhesive tape at a depth of 24 cm at the lips. The patient was connected to the ventilator. The patient tolerated the procedure well without any apparent complications. Oxygen saturations were maintained greater than 95% all times. STAT chest x-ray pending at time of dictation.
--- NOTE | 2018-04-11 08:18 | P.PCN ---
Date of procedure: 04/11/18 Pre-op diagnosis: Hypotension Post-op diagnosis: same Procedure: DATE: 04/11/2018 CENTRAL LINE PLACEMENT: Right internal jugular vein. Ultrasound-guided INDICATION: Central venous access CONSENT Informed consent for procedure was obtained from . DESCRIPTION OF THE PROCEDURE The patient was placed in supine position. The skin was cleansed with Chloraprep. Additional barrier precautions included large sterile drape, sterile gloves, sterile gown, face mask, and hat. 1 % lidocaine was used for local anesthesia. Under direct ultrasound guidance and on initial attempt, the vein was accessed with an introducer needle. The guide wire was advanced and the tract was dilated. Using Seldinger technique a 7 Yi 20 cm antimicrobial coated triple-lumen catheter was advanced to a depth of 16 centimeters. The guide wire was removed. All ports had good return of dark venous blood and flushed easily with saline. The central line was secured with 2.0 silk. StatLock was placed. A sterile dressing with antibiotic disc was applied. ESTIMATED BLOOD LOSS: Minimal COMPLICATIONS: No apparent complications. STAT chest x-ray pending at time of dictation
[2018-04-11] MEDS: Piperacil/Tazo 2.25 GM Premix 2.25 GM/50 ML PIGGYBACK IV.SIG SCH ×3 (09:25→20:50)
[2018-04-11] MEDS: Dextrose 5%/NaCl 0.45% Inj 1,000 ML IV.CONT SCH ×2 (09:26→22:37)
[2018-04-11] MEDS: Midazolam 100 MG/100 ML Inj 100 MG/100 ML BAG IV.CONT PRN (09:27)
[2018-04-11] MEDS: Enoxaparin Inj 40 MG/0.4 ML Syringe SQ SCH (09:28)
[2018-04-11] MEDS: Senna/Docusate Sodium 8.6/50 MG Tablet PO SCH ×2 (09:32→21:00)
[2018-04-11] MEDS: Polyethylene Glycol 3350 17 GM Packet PO SCH ×2 (09:32→21:00)
[2018-04-11] MEDS: Chlorhexidine 0.12% Oral Kit 15 ML UDC OROPHARYNG SCH ×2 (09:32→20:51)
--- NOTE | 2018-04-11 09:47 | XR ---
EXAM DATE: 04/11/2018 9:44 AM EST AGE/SEX: 67 years / Male INDICATIONS: Central line placement. CLINICAL DATA: This is the patient's subsequent encounter. Patient reports that signs and symptoms h ave been present for 2 weeks and indicates a pain score of Nonresponsive. MEDICAL/SURGICAL HISTORY: . Thyroid Disease. . Microdiscectomy. Left inguinal hernia repair. COMPARISON: C, CHEST 1V SINGLE AP, 04/11/2018. . FINDINGS: Stable ETT and NGT. Persistent mild bibasilar airspace disease. Interval placement of right IJ centra l line with tip at the atrial caval junction. Cardiomediastinal contours are within normal limits. Re mainder of the exam is unchanged. CONCLUSION: 1. Stable ETT and NGT. 2. Right IJ central line in good position without pneumothorax. 3. Stable mild bibasilar airspace disease. Electronically signed by: Leo Ramirez MD Board Certified Radiologist 04/11/2018 9:46 AM EST
--- NOTE | 2018-04-11 09:53 | XR ---
EXAM DATE: 04/11/2018 9:49 AM EST AGE/SEX: 67 years / Male INDICATIONS: Ileus. CLINICAL DATA: This is the patient's subsequent encounter. Patient reports that signs and symptoms h ave been present for 2 weeks and indicates a pain score of Nonresponsive. MEDICAL/SURGICAL HISTORY: . Thyroid disease. . Microdiscectomy. Left inguinal hernia repair. COMPARISON: [facility] [place], ABDOMEN SINGLE [facility]IEW, 04/09/2018. . FINDINGS: The abdominal bowel gas pattern is normal. No abnormal masses, calcifications, or organomegaly is s een. Moderate air throughout the small and large bowel, stable. The osseous structures are unremarkab le. NG tube coiled within the stomach. CONCLUSION: Moderate air throughout small and large bowel without evidence of pneumatosis or free air on these 2 supine films. Electronically signed by: Darren Venegas MD Board Certified Radiologist 04/11/2018 9:52 AM EST
[2018-04-11 10:21] LABS: Troponin I 0.02 ng/mL (0.02-0.05)
--- NOTE | 2018-04-11 13:12 | P.PNADD ---
Addendum to Inpatient Note Additional information: events noted dw Satinder Teresa dw family @ bs dw nursing staff A/P: sepsitc Aspirated. Distended rigid abd ARF On ptressors BC STAT CT A/P/chest Zosyn micafungin vanco x 1dose
[2018-04-11] MEDS ORDERED: Vancomycin Inj 1,500 MG in Sodium Chlor 0.9% Inj 500 ML IV.SIG ONE (14:00)
--- NOTE | 2018-04-11 14:01 | P.PNNP ---
Subjective Interval history: Patient continues to be intubated. IV fluids were resumed, D5 half normal saline at 84 cc an hour. Patient had cuff leak, reintubated. WBC Of 24, per note likely aspiration. Not tolerating tube feedings, which were discontinued , abdomen very distended. Blood cultures, urine cultures, sputum culture reveal no growth thus far. <Eula Tony - Last Filed: 04/11/18 13:42> Physical Exam Vital signs: Vital Signs 04/10/18 13:50 04/10/18 14:00 04/10/18 14:05 Temperature 97.3 F L 97.5 F L 97.5 F L Pulse Rate 130 H 127 H 127 H Respiratory Rate 15 15 15 Blood Pressure 170/81 H 161/77 H Pulse Oximetry 93 L 93 L 93 L 04/10/18 14:20 04/10/18 14:35 04/10/18 14:50 Temperature 97.5 F L 97.5 F L 97.7 F Pulse Rate 125 H 128 H 116 H Respiratory Rate 15 15 15 Blood Pressure 151/72 H 161/83 H 112/59 L Pulse Oximetry 93 L 95 92 L 04/10/18 15:00 04/10/18 15:05 04/10/18 15:20 Temperature 97.7 F 97.7 F 97.7 F Pulse Rate 112 H 119 H 118 H Respiratory Rate 15 15 15 Blood Pressure 98/69 L 132/76 Pulse Oximetry 92 L 94 L 93 L 04/10/18 15:35 04/10/18 15:50 04/10/18 16:00 Temperature 97.7 F 97.5 F L 99.3 F Pulse Rate 116 H 116 H 125 H Respiratory Rate 15 15 15 Blood Pressure 125/66 136/78 Pulse Oximetry 95 95 96 04/10/18 16:05 04/10/18 16:20 04/10/18 16:35 Temperature 99.1 F 99.1 F 99.3 F Pulse Rate 127 H 122 H 111 H Respiratory Rate 15 15 15 Blood Pressure 153/92 H 139/83 104/67 Pulse Oximetry 96 95 94 L 04/10/18 16:50 04/10/18 17:00 04/10/18 17:05 Temperature 99.5 F 99.5 F 99.5 F Pulse Rate 119 H 115 H 108 H Respiratory Rate 15 15 15 Blood Pressure 118/77 92/52 L Pulse Oximetry 95 95 94 L 04/10/18 17:16 04/10/18 17:18 04/10/18 17:20 Temperature 99.7 F H Pulse Rate 116 H 113 H Respiratory Rate 15 15 15 Blood Pressure 103/68 Pulse Oximetry 95 96 04/10/18 17:35 04/10/18 17:50 04/10/18 18:00 Temperature 99.7 F H 99.5 F 99.5 F Pulse Rate 101 H 111 H 100 H Respiratory Rate 15 15 15 Blood Pressure 81/52 L 120/73 Pulse Oximetry 95 95 94 L 04/10/18 18:05 04/10/18 18:20 04/10/18 18:35 Temperature 99.7 F H 99.7 F H Pulse Rate 100 H 102 H 114 H Respiratory Rate 15 15 15 Blood Pressure 98/61 L 98/64 L 112/69 Pulse Oximetry 95 95 94 L 04/10/18 18:50 04/10/18 20:00 04/10/18 20:05 Temperature 98.8 F 99.1 F 99.3 F Pulse Rate 108 H 106 H 106 H Respiratory Rate 15 15 15 Blood Pressure 77/52 L Pulse Oximetry 95 93 L 93 L 04/10/18 20:20 04/10/18 20:35 04/10/18 20:50 Temperature 99.3 F 99.5 F 99.5 F Pulse Rate 108 H 110 H 114 H Respiratory Rate 15 15 15 Blood Pressure 106/64 125/82 118/73 Pulse Oximetry 93 L 93 L 92 L 04/10/18 21:00 04/10/18 21:05 04/10/18 21:20 Temperature 99.5 F 99.5 F 99.5 F Pulse Rate 134 H 133 H 141 H Respiratory Rate 15 15 15 Blood Pressure 151/92 H 170/91 H Pulse Oximetry 94 L 93 L 93 L 04/10/18 21:34 04/10/18 21:35 04/10/18 22:00 Temperature 99.7 F H 99.9 F H Pulse Rate 140 H 133 H Respiratory Rate 16 15 15 Blood Pressure 154/89 H Pulse Oximetry 93 L 90 L 93 L 04/10/18 22:05 04/10/18 22:35 04/10/18 22:37 Temperature 99.9 F H 100.2 F H 100.2 F H Pulse Rate 121 H 81 81 Respiratory Rate 15 15 15 Blood Pressure 86/60 L 51/33 L 74/47 L Pulse Oximetry 88 L 88 L 91 L 04/10/18 22:46 04/10/18 23:00 04/10/18 23:01 Temperature 100.2 F H 100.2 F H 100.2 F H Pulse Rate 97 H 77 77 Respiratory Rate 15 15 15 Blood Pressure 95/49 L 54/35 L Pulse Oximetry 90 L 95 95 04/10/18 23:05 04/10/18 23:16 04/10/18 23:31 Temperature 100.2 F H 100.2 F H 100.2 F H Pulse Rate 78 95 H 112 H Respiratory Rate 15 15 16 Blood Pressure 90/59 L 92/61 L 126/80 Pulse Oximetry 96 92 L 97 04/10/18 23:46 04/11/18 00:00 04/11/18 00:01 Temperature 100.4 F H Pulse Rate 86 134 H 132 H Respiratory Rate 15 17 15 Blood Pressure 101/56 L 116/79 Pulse Oximetry 94 L 91 L 93 L 04/11/18 00:16 04/11/18 00:21 04/11/18 00:31 Temperature Pulse Rate 111 H 104 H Respiratory Rate 15 15 15 Blood Pressure 78/52 L 74/42 L Pulse Oximetry 89 L 93 L 93 L 04/11/18 00:46 04/11/18 01:00 04/11/18 01:01 Temperature 99.0 F 99.0 F Pulse Rate 91 H 97 H 103 H Respiratory Rate 15 15 15 Blood Pressure 77/49 L 77/52 L Pulse Oximetry 90 L 90 L 90 L 04/11/18 01:16 04/11/18 01:31 04/11/18 01:46 Temperature 99.3 F 99.5 F 99.5 F Pulse Rate 93 H 95 H 104 H Respiratory Rate 15 15 15 Blood Pressure 72/51 L 74/54 L 98/60 L Pulse Oximetry 91 L 92 L 95 04/11/18 02:00 04/11/18 02:01 04/11/18 02:06 Temperature 99.7 F H 99.7 F H 99.7 F H Pulse Rate 81 81 80 Respiratory Rate 15 15 15 Blood Pressure 69/51 L 80/51 L Pulse Oximetry 96 96 96 04/11/18 02:16 04/11/18 02:31 04/11/18 02:46 Temperature 99.7 F H 99.7 F H 99.7 F H Pulse Rate 83 83 81 Respiratory Rate 15 15 15 Blood Pressure 94/66 L 99/67 L 99/66 L Pulse Oximetry 97 96 96 04/11/18 03:00 04/11/18 03:01 04/11/18 03:16 Temperature 99.7 F H 99.7 F H 99.7 F H Pulse Rate 82 82 116 H Respiratory Rate 15 15 15 Blood Pressure 105/58 L 130/67 Pulse Oximetry 94 L 94 L 04/11/18 03:31 04/11/18 03:46 04/11/18 04:00 Temperature 99.9 F H 100.2 F H 100.2 F H Pulse Rate 105 H 89 82 Respiratory Rate 15 15 15 Blood Pressure 124/75 101/59 L Pulse Oximetry 94 L 93 L 94 L 04/11/18 04:01 04/11/18 04:16 04/11/18 04:20 Temperature 100.2 F H 100.4 F H Pulse Rate 81 103 H 116 H Respiratory Rate 15 15 15 Blood Pressure 94/52 L 127/74 Pulse Oximetry 94 L 94 L 94 L 04/11/18 04:31 04/11/18 04:46 04/11/18 05:00 Temperature 100.2 F H 100.2 F H 100.2 F H Pulse Rate 97 H 89 84 Respiratory Rate 15 15 15 Blood Pressure 111/66 103/60 Pulse Oximetry 94 L 94 L 94 L 04/11/18 05:01 04/11/18 05:16 04/11/18 05:31 Temperature 100.2 F H 100.2 F H 100.2 F H Pulse Rate 84 85 82 Respiratory Rate 15 15 15 Blood Pressure 106/59 L 105/61 105/68 Pulse Oximetry 94 L 95 96 04/11/18 05:46 04/11/18 06:00 04/11/18 06:01 Temperature 100.2 F H 100.2 F H 101.1 F H Pulse Rate 81 81 80 Respiratory Rate 15 15 15 Blood Pressure 105/61 106/60 Pulse Oximetry 96 96 96 04/11/18 08:00 04/11/18 08:02 04/11/18 08:05 Temperature 101.3 F H Pulse Rate 96 H Respiratory Rate 15 Blood Pressure 162/86 H 166/89 H Pulse Oximetry 99 98 04/11/18 08:07 04/11/18 08:10 04/11/18 08:12 Temperature 101.3 F H 101.3 F H 101.3 F H Pulse Rate 94 H 89 90 Respiratory Rate 15 15 15 Blood Pressure 159/77 H 152/82 H 154/86 H Pulse Oximetry 98 98 98 04/11/18 08:15 04/11/18 08:17 04/11/18 08:20 Temperature 101.3 F H 101.3 F H 101.3 F H Pulse Rate 89 88 92 H Respiratory Rate 15 15 15 Blood Pressure 155/84 H 154/89 H 159/93 H Pulse Oximetry 98 98 98 04/11/18 08:22 04/11/18 08:25 04/11/18 08:27 Temperature 101.5 F H 101.5 F H 101.5 F H Pulse Rate 90 85 90 Respiratory Rate 15 15 15 Blood Pressure 150/81 H 148/77 H 145/77 H Pulse Oximetry 98 98 97 04/11/18 08:30 04/11/18 08:32 04/11/18 08:35 Temperature 101.7 F H 101.7 F H 101.7 F H Pulse Rate 92 H 89 91 H Respiratory Rate 15 15 15 Blood Pressure 154/84 H 156/84 H 154/87 H Pulse Oximetry 97 98 97 04/11/18 08:46 04/11/18 08:47 04/11/18 09:00 Temperature 101.7 F H 101.7 F H Pulse Rate 84 83 81 Respiratory Rate 15 15 15 Blood Pressure 136/77 Pulse Oximetry 97 97 96 04/11/18 09:02 04/11/18 09:17 04/11/18 09:32 Temperature 101.7 F H 101.7 F H 101.5 F H Pulse Rate 81 80 78 Respiratory Rate 15 15 15 Blood Pressure 125/74 131/62 128/68 Pulse Oximetry 95 93 L 93 L 04/11/18 09:47 04/11/18 10:00 04/11/18 10:02 Temperature 101.5 F H 101.5 F H 101.5 F H Pulse Rate 77 80 80 Respiratory Rate 15 15 15 Blood Pressure 141/76 H 126/71 Pulse Oximetry 93 L 94 L 94 L 04/11/18 10:17 04/11/18 10:32 04/11/18 10:47 Temperature 101.3 F H 100.9 F H 100.2 F H Pulse Rate 86 82 77 Respiratory Rate 15 15 15 Blood Pressure 137/81 114/71 120/74 Pulse Oximetry 95 98 98 04/11/18 11:00 04/11/18 11:02 04/11/18 11:17 Temperature 100.0 F H 100.0 F H 99.9 F H Pulse Rate 75 75 74 Respiratory Rate 15 15 15 Blood Pressure 126/78 131/81 Pulse Oximetry 98 98 98 04/11/18 11:32 04/11/18 11:47 04/11/18 12:00 Temperature 99.9 F H 99.7 F H 99.7 F H Pulse Rate 74 74 75 Respiratory Rate 15 15 15 Blood Pressure 138/82 146/83 H Pulse Oximetry 99 99 98 04/11/18 12:01 04/11/18 12:02 04/11/18 12:04 Temperature 99.7 F H Pulse Rate 74 74 Respiratory Rate 15 15 Blood Pressure 140/84 Pulse Oximetry 98 99 Intake & Output 04/10/18 04/11/18 04/11/18 18:59 06:59 18:59 Intake Total 1777 / 1777 840 / 840 300 / 300 Output Total 500 / 500 935 / 935 Balance 1277 / 1277 -95 / -95 300 / 300 Weight 88.3 kg Intake: IV 1316 / 1316 500 / 500 300 / 300 Precedex Inj 1,000 MCG In NS 250 / 250 250 / 250 Inj 240 ML @ 0.2 MCG/KG/HR 4.31 mls/hr IV.CONT TITRATE PRN Rx# :[id number] Zosyn 2.25 GM Premix 2.25 gm In 50 / 50 50 ml @ 100 mls/hr IV.SIG Q6H GIGI Rx#:[id number] 1/2 Normal Saline Inj 1,000 ML 1000 / 1000 @ Wide Open IV.SIG BOLUS ONE Rx #:[id number] fentaNYL 10 mcg/mL Premix Drip 66 / 66 250 / 250 250 / 250 2,500 mcg In 250 ml @ 50 MCG/HR 5 mls/hr IV.SIG TITRATE PRN Rx #:[id number] Tube Feeding 461 / 461 220 / 220 Tube Irrigant 120 / 120 Output: Urine Amount (Catheter) 500 / 500 335 / 335 Indwelling Urethral Catheter 500 / 500 335 / 335 Gastric Drainage 600 / 600 Orogastric Tube 600 / 600 Other: Date of Last Bowel Movement 04/11/18 04/11/18 # Bowel Movements 1 # Incontinent Bowel Movements 1 Narrative: Patiently is currently intubated. Does not appear to be in any acute distress. GENERAL: Appears to be in no acute distress. Resting comfortably, intubated, follows commands alert and oriented. SKIN: Warm and dry, intact, No lesions seen. HEAD: Normocephalic. EYES: No scleral icterus. No injection or drainage. Pupils are equal and reactive to light. NECK: Supple, trachea midline. No JVD or lymphadenopathy. CARDIOVASCULAR: Normal rate, normal rhythm without murmurs, gallops, or rubs. RESPIRATORY: Breath sounds equal bilaterally. No accessory muscle use. Breath sounds are clear bilaterally to auscultation. GASTROINTESTINAL: Abdomen soft, non-tender, more distended. Hypoactive bowel sounds. BACK: Nontender without obvious deformity. No CVA tenderness. Extremities with no lesions. - Urinary Catheter Management Indwelling Urethral Catheter Cath placed during this visit: yes Reason for continuing: Hourly intake/output Insertion date: 04/10/18 Insertion time: 01:45 <Eula Tony - Last Filed: 04/11/18 13:42> Vital signs: Vital Signs 04/10/18 23:31 04/10/18 23:46 04/11/18 00:00 Temperature 100.2 F H 100.4 F H Pulse Rate 112 H 86 134 H Respiratory Rate 16 15 17 Blood Pressure 126/80 101/56 L Pulse Oximetry 97 94 L 91 L 04/11/18 00:01 04/11/18 00:16 04/11/18 00:21 Temperature Pulse Rate 132 H 111 H Respiratory Rate 15 15 15 Blood Pressure 116/79 78/52 L Pulse Oximetry 93 L 89 L 93 L 04/11/18 00:31 04/11/18 00:46 04/11/18 01:00 Temperature 99.0 F Pulse Rate 104 H 91 H 97 H Respiratory Rate 15 15 15 Blood Pressure 74/42 L 77/49 L Pulse Oximetry 93 L 90 L 90 L 04/11/18 01:01 04/11/18 01:16 04/11/18 01:31 Temperature 99.0 F 99.3 F 99.5 F Pulse Rate 103 H 93 H 95 H Respiratory Rate 15 15 15 Blood Pressure 77/52 L 72/51 L 74/54 L Pulse Oximetry 90 L 91 L 92 L 04/11/18 01:46 04/11/18 02:00 04/11/18 02:01 Temperature 99.5 F 99.7 F H 99.7 F H Pulse Rate 104 H 81 81 Respiratory Rate 15 15 15 Blood Pressure 98/60 L 69/51 L Pulse Oximetry 95 96 96 04/11/18 02:06 04/11/18 02:16 04/11/18 02:31 Temperature 99.7 F H 99.7 F H 99.7 F H Pulse Rate 80 83 83 Respiratory Rate 15 15 15 Blood Pressure 80/51 L 94/66 L 99/67 L Pulse Oximetry 96 97 96 04/11/18 02:46 04/11/18 03:00 04/11/18 03:01 Temperature 99.7 F H 99.7 F H 99.7 F H Pulse Rate 81 82 82 Respiratory Rate 15 15 15 Blood Pressure 99/66 L 105/58 L Pulse Oximetry 96 94 L 94 L 04/11/18 03:16 04/11/18 03:31 04/11/18 03:46 Temperature 99.7 F H 99.9 F H 100.2 F H Pulse Rate 116 H 105 H 89 Respiratory Rate 15 15 15 Blood Pressure 130/67 124/75 101/59 L Pulse Oximetry 94 L 93 L 04/11/18 04:00 04/11/18 04:01 04/11/18 04:16 Temperature 100.2 F H 100.2 F H 100.4 F H Pulse Rate 82 81 103 H Respiratory Rate 15 15 15 Blood Pressure 94/52 L 127/74 Pulse Oximetry 94 L 94 L 94 L 04/11/18 04:20 04/11/18 04:31 04/11/18 04:46 Temperature 100.2 F H 100.2 F H Pulse Rate 116 H 97 H 89 Respiratory Rate 15 15 15 Blood Pressure 111/66 103/60 Pulse Oximetry 94 L 94 L 94 L 04/11/18 05:00 04/11/18 05:01 04/11/18 05:16 Temperature 100.2 F H 100.2 F H 100.2 F H Pulse Rate 84 84 85 Respiratory Rate 15 15 15 Blood Pressure 106/59 L 105/61 Pulse Oximetry 94 L 94 L 95 04/11/18 05:31 04/11/18 05:46 04/11/18 06:00 Temperature 100.2 F H 100.2 F H 100.2 F H Pulse Rate 82 81 81 Respiratory Rate 15 15 15 Blood Pressure 105/68 105/61 Pulse Oximetry 96 96 96 04/11/18 06:01 04/11/18 08:00 04/11/18 08:02 Temperature 101.1 F H Pulse Rate 80 Respiratory Rate 15 Blood Pressure 106/60 162/86 H Pulse Oximetry 96 99 04/11/18 08:05 04/11/18 08:07 04/11/18 08:10 Temperature 101.3 F H 101.3 F H 101.3 F H Pulse Rate 96 H 94 H 89 Respiratory Rate 15 15 15 Blood Pressure 166/89 H 159/77 H 152/82 H Pulse Oximetry 98 98 98 04/11/18 08:12 04/11/18 08:15 04/11/18 08:17 Temperature 101.3 F H 101.3 F H 101.3 F H Pulse Rate 90 89 88 Respiratory Rate 15 15 15 Blood Pressure 154/86 H 155/84 H 154/89 H Pulse Oximetry 98 98 98 04/11/18 08:20 04/11/18 08:22 04/11/18 08:25 Temperature 101.3 F H 101.5 F H 101.5 F H Pulse Rate 92 H 90 85 Respiratory Rate 15 15 15 Blood Pressure 159/93 H 150/81 H 148/77 H Pulse Oximetry 98 98 98 04/11/18 08:27 04/11/18 08:30 04/11/18 08:32 Temperature 101.5 F H 101.7 F H 101.7 F H Pulse Rate 90 92 H 89 Respiratory Rate 15 15 15 Blood Pressure 145/77 H 154/84 H 156/84 H Pulse Oximetry 97 97 98 04/11/18 08:35 04/11/18 08:46 04/11/18 08:47 Temperature 101.7 F H 101.7 F H Pulse Rate 91 H 84 83 Respiratory Rate 15 15 15 Blood Pressure 154/87 H 136/77 Pulse Oximetry 97 97 97 04/11/18 09:00 04/11/18 09:02 04/11/18 09:17 Temperature 101.7 F H 101.7 F H 101.7 F H Pulse Rate 81 81 80 Respiratory Rate 15 15 15 Blood Pressure 125/74 131/62 Pulse Oximetry 96 95 93 L 04/11/18 09:32 04/11/18 09:47 04/11/18 10:00 Temperature 101.5 F H 101.5 F H 101.5 F H Pulse Rate 78 77 80 Respiratory Rate 15 15 15 Blood Pressure 128/68 141/76 H Pulse Oximetry 93 L 93 L 94 L 04/11/18 10:02 04/11/18 10:17 04/11/18 10:32 Temperature 101.5 F H 101.3 F H 100.9 F H Pulse Rate 80 86 82 Respiratory Rate 15 15 15 Blood Pressure 126/71 137/81 114/71 Pulse Oximetry 94 L 95 98 04/11/18 10:47 04/11/18 11:00 04/11/18 11:02 Temperature 100.2 F H 100.0 F H 100.0 F H Pulse Rate 77 75 75 Respiratory Rate 15 15 15 Blood Pressure 120/74 126/78 Pulse Oximetry 98 98 98 04/11/18 11:17 04/11/18 11:32 04/11/18 11:47 Temperature 99.9 F H 99.9 F H 99.7 F H Pulse Rate 74 74 74 Respiratory Rate 15 15 15 Blood Pressure 131/81 138/82 146/83 H Pulse Oximetry 98 99 99 04/11/18 12:00 04/11/18 12:01 04/11/18 12:02 Temperature 99.7 F H 99.7 F H 99.7 F H Pulse Rate 75 74 74 Respiratory Rate 15 15 15 Blood Pressure 140/84 Pulse Oximetry 98 98 98 04/11/18 12:04 04/11/18 12:17 04/11/18 12:32 Temperature 99.7 F H 99.7 F H Pulse Rate 74 74 74 Respiratory Rate 15 15 15 Blood Pressure 139/85 139/87 Pulse Oximetry 99 98 97 04/11/18 12:47 04/11/18 13:00 04/11/18 13:02 Temperature 99.7 F H 99.5 F 99.5 F Pulse Rate 72 72 72 Respiratory Rate 15 15 15 Blood Pressure 138/86 136/83 Pulse Oximetry 98 98 98 04/11/18 13:25 04/11/18 13:33 04/11/18 13:44 Temperature 99.5 F Pulse Rate 68 67 Respiratory Rate 15 11 L Blood Pressure 123/73 129/75 Pulse Oximetry 98 95 98 04/11/18 13:55 04/11/18 13:59 04/11/18 14:00 Temperature 100.2 F H 100.0 F H 100.0 F H Pulse Rate 105 H 109 H 91 H Respiratory Rate 28 H 36 H 40 H Blood Pressure 210/99 H 213/91 H Pulse Oximetry 92 L 72 L 61 L 04/11/18 14:02 04/11/18 15:00 04/11/18 16:00 Temperature 100.0 F H 99.7 F H 99.7 F H Pulse Rate 116 H 73 65 Respiratory Rate 27 H 19 15 Blood Pressure 131/63 Pulse Oximetry 96 99 99 04/11/18 16:07 04/11/18 16:15 04/11/18 16:30 Temperature 99.7 F H 99.7 F H 99.7 F H Pulse Rate 65 64 64 Respiratory Rate 15 15 15 Blood Pressure 139/78 140/81 144/82 H Pulse Oximetry 99 99 99 04/11/18 16:43 04/11/18 16:45 04/11/18 17:00 Temperature 99.7 F H 99.7 F H Pulse Rate 63 63 65 Respiratory Rate 15 15 15 Blood Pressure 145/84 H 122/69 Pulse Oximetry 99 99 99 04/11/18 17:15 04/11/18 17:30 04/11/18 17:38 Temperature 99.7 F H 99.7 F H 99.9 F H Pulse Rate 63 62 63 Respiratory Rate 15 15 15 Blood Pressure 123/73 122/73 123/72 Pulse Oximetry 99 99 99 04/11/18 17:41 04/11/18 17:44 04/11/18 17:47 Temperature 99.9 F H 99.9 F H 99.9 F H Pulse Rate 62 63 62 Respiratory Rate 15 15 15 Blood Pressure 119/67 123/68 117/71 Pulse Oximetry 99 99 99 04/11/18 17:50 04/11/18 17:53 04/11/18 17:56 Temperature 99.9 F H 99.9 F H 99.9 F H Pulse Rate 63 66 66 Respiratory Rate 15 15 15 Blood Pressure 125/74 134/78 123/75 Pulse Oximetry 99 100 99 04/11/18 17:59 04/11/18 18:00 04/11/18 18:02 Temperature 99.9 F H 99.9 F H 99.9 F H Pulse Rate 65 64 64 Respiratory Rate 15 15 15 Blood Pressure 123/77 123/72 Pulse Oximetry 99 99 99 04/11/18 18:04 04/11/18 18:05 04/11/18 19:17 Temperature 99.9 F H 100.0 F H Pulse Rate 63 59 L Respiratory Rate 15 15 Blood Pressure 122/72 Pulse Oximetry 99 99 04/11/18 19:20 04/11/18 19:23 04/11/18 19:26 Temperature 100.0 F H 100.0 F H Pulse Rate 59 L 59 L 59 L Respiratory Rate 15 15 15 Blood Pressure 117/75 123/78 125/74 Pulse Oximetry 99 99 99 04/11/18 19:29 04/11/18 19:32 04/11/18 19:35 Temperature 100.0 F H 100.2 F H 100.2 F H Pulse Rate 59 L 59 L 59 L Respiratory Rate 15 15 15 Blood Pressure 123/77 125/74 127/70 Pulse Oximetry 99 99 99 04/11/18 19:38 04/11/18 19:41 04/11/18 19:44 Temperature 100.2 F H 100.2 F H 100.2 F H Pulse Rate 59 L 59 L 60 Respiratory Rate 15 15 15 Blood Pressure 110/68 115/73 119/74 Pulse Oximetry 99 99 99 04/11/18 19:47 04/11/18 19:50 04/11/18 19:53 Temperature 100.2 F H 100.2 F H 100.2 F H Pulse Rate 60 59 L 59 L Respiratory Rate 15 15 15 Blood Pressure 117/73 122/75 116/72 Pulse Oximetry 99 99 99 04/11/18 19:55 04/11/18 19:56 04/11/18 19:59 Temperature 100.2 F H 100.2 F H Pulse Rate 60 60 62 Respiratory Rate 15 15 16 Blood Pressure 122/70 121/70 Pulse Oximetry 99 99 99 04/11/18 20:00 04/11/18 20:15 04/11/18 20:30 Temperature 100.2 F H 100.2 F H 100.2 F H Pulse Rate 61 64 74 Respiratory Rate 15 15 15 Blood Pressure 115/69 116/74 Pulse Oximetry 99 99 99 04/11/18 20:45 04/11/18 21:00 04/11/18 21:15 Temperature 100.4 F H 100.4 F H 100.6 F H Pulse Rate 71 69 70 Respiratory Rate 15 15 15 Blood Pressure 115/67 120/68 110/68 Pulse Oximetry 99 99 99 04/11/18 21:30 04/11/18 21:45 04/11/18 22:00 Temperature 100.6 F H 100.8 F H 100.9 F H Pulse Rate 65 64 68 Respiratory Rate 15 15 15 Blood Pressure 102/62 98/60 L 115/68 Pulse Oximetry 99 99 99 04/11/18 22:15 04/11/18 22:29 04/11/18 22:30 Temperature 100.9 F H 100.9 F H Pulse Rate 67 70 Respiratory Rate 15 15 Blood Pressure 117/66 118/70 Pulse Oximetry 99 99 Intake & Output 04/11/18 04/11/18 04/12/18 06:59 18:59 06:59 Intake Total 840 / 840 1350 / 1350 1715 / 1715 Output Total 935 / 935 1175 / 1175 Balance -95 / -95 175 / 175 1715 / 1715 Weight 88.3 kg Intake: IV 500 / 500 550 / 550 1715 / 1715 Precedex Inj 1,000 MCG In NS 250 / 250 250 / 250 Inj 240 ML @ 0.2 MCG/KG/HR 4.31 mls/hr IV.CONT TITRATE PRN Rx# :[id number] D5W/1/2 NS Inj 1,000 ML @ 84 1000 / 1000 mls/hr IV.CONT .[id number] GIGI Rx# :[id number] Mycamine Inj 150 MG In NS Inj 100 / 100 100 ML @ 100 mls/hr IV.SIG Q24H GIGI Rx#:[id number] Zosyn 2.25 GM Premix 2.25 gm In 50 / 50 100 / 100 50 ml @ 100 mls/hr IV.SIG Q6H GIGI Rx#:[id number] Vancomycin Inj 1,500 MG In NS 515 / 515 Inj 500 ML @ 250 mls/hr IV.SIG ONCE ONE Rx#:[id number] fentaNYL 10 mcg/mL Premix Drip 250 / 250 250 / 250 2,500 mcg In 250 ml @ 50 MCG/HR 5 mls/hr IV.SIG TITRATE PRN Rx #:[id number] Tube Feeding 220 / 220 0 / 0 Tube Irrigant 120 / 120 Water Bolus Amount 400 / 400 Free Water Amount 400 / 400 Output: Urine Amount (Catheter) 335 / 335 1175 / 1175 Indwelling Urethral Catheter 335 / 335 1175 / 1175 Gastric Drainage 600 / 600 Orogastric Tube 600 / 600 Other: Date of Last Bowel Movement 04/11/18 04/11/18 # Bowel Movements 1 # Incontinent Bowel Movements 1 3 - Urinary Catheter Management Indwelling Urethral Catheter Cath placed during this visit: no <Matilde Campbell - Last Filed: 04/11/18 23:25> Assessment and Plan - Assessment (1) BUDDY (acute kidney injury) Code(s): N17.9 - Acute kidney failure, unspecified Status: Acute Plan: There was a cuff leak, had to reintubate. Nausea last night, not tolerating tube feedings which have been discontinued, abdomen very distended. According to critical care note likely aspiration. WBCs bumped up to 24 today. Urine, blood, and sputum cultures no growth thus far. KUB ordered. Kidney insult began on the . Current creatinine is 2.69----->2.06---->1.38----->1.0. Nonoliguric. 835 ml out as far Of urine Potassium improved to 3.8 today Lisinopril was started on the was stopped on the in light of acute kidney injury CTA of the chest was done the , which could have also been an insult to the kidneys. Echocardiogram revealed EF of 45% unknown etiology. He does have a low-grade fever today. WBC is trending up slightly to 24 today. Renal ultrasound negative for any obstructive etiology. Small cyst on right kidney which is stable. Fractional excretion of urine, 0.47%, prerenal. Likely contrast induced secondary to CTA. -We will keep following his BMP -IV fluids D5 half-normal saline at 84 was restarted this morning. Agree to continue. -We will keep monitoring his renal function (2) Hypernatremia Code(s): E87.0 - Hyperosmolality and hypernatremia Status: Acute Plan: Sodium at 150 today, 151 yesterday -Continue to monitor -Continue with D5 half normal saline at 84 ml/hr -Monitor BMP daily (3) Respiratory failure Code(s): J96.90 - Respiratory failure, unspecified, unspecified whether with hypoxia or hypercapnia Status: Acute Plan: With respiratory acidosis, Continues to be intubated, failed extubation on the , became somnolent, obtunded. Cuff leak today, reintubated. There is thought that the phrenic nerve and or vocal cords could be involved, possibly hit during cervical surgery? Plans for possible sniff test once extubated Myastheia Gravis workup by neuro (4) Leukocytosis Code(s): D72.829 - Elevated white blood cell count, unspecified Status: Acute - Plan WBCs slightly trended up to 24 Low-grade fever 99 Urine culture, blood cultures, sputum cultures no growth thus far. Not tolerating tube feedings, which have been discontinued. Per critical care note likely aspiration. -Management per critical care team <Eula Tony - Last Filed: 04/11/18 13:42> - Assessment (1) BUDDY (acute kidney injury) Code(s): N17.9 - Acute kidney failure, unspecified Status: Acute (2) Hypernatremia Code(s): E87.0 - Hyperosmolality and hypernatremia Status: Acute (3) Respiratory failure Code(s): J96.90 - Respiratory failure, unspecified, unspecified whether with hypoxia or hypercapnia Status: Acute (4) Leukocytosis Code(s): D72.829 - Elevated white blood cell count, unspecified Status: Acute - Attending Attestation I have seen and examined the patient and discussed care with MARY Forde, patient family, continue supportive care and IV hydration, I agree with the above assessment and plan We will continue to monitor <Matilde Campbell - Last Filed: 04/11/18 23:25>
--- NOTE | 2018-04-11 14:09 | CT ---
EXAM DATE: 04/11/2018 1:58 PM EST AGE/SEX: 67 years / Male INDICATIONS: Abdominal distention. CLINICAL DATA: This is the patient's initial encounter. Patient reports that signs and symptoms have been present for 1 day and indicates a pain score of 5/10. MEDICAL/SURGICAL HISTORY: Gastroesophageal reflux disease. Inguinal hernia repair. RADIATION DOSE: 5.25 CTDI (mGy) ; Combined studies COMPARISON: [facility], CT ABDOMEN AND PELVIS W AND W/O CONTRAST, 03/29/2018. . TECHNIQUE: Multiple contiguous axial images were obtained through the abdomen. Images were obtained using multiple row detector helical technique. Using automated exposure control and adjustment of the mA and/or kV according to patient size, radiation dose was kept as low as reasonably achievable to o btain optimal diagnostic quality images. DICOM format image data is available electronically for rev iew and comparison. FINDINGS: Lower Lungs: There is significant consolidation in the left lower lobe and a small amount of air is s pace disease in the right lower lobe new since the . Liver: The liver has a homogeneous density without space-occupying lesion. There is no dilation of th e biliary tree. Spleen: Homogeneous density without enlargement. Pancreas: Unremarkable without mass or calcification. Kidneys: Normal in size and shape. No evidence of mass or hydronephrosis. Small stone mid pole right kidney Adrenal Glands: Unremarkable. Aorta: The aorta and proximal iliac vessels are grossly unremarkable without aneurysmal dilation. Bowel/Mesentery: Nasogastric tube coiled within the stomach. Distended air-filled and fluid-filled lo ops of small and large bowel without evidence of obstruction. The bowel loops are grossly unremarkabl e. The cecum and sigmoid colon have a normal configuration. The appendix is normal. Abdominal Wall: Intact. Retroperitoneum: No evidence of adenopathy in the retrocrural, para-aortic, or deep pelvic regions. Bladder: Contours are smooth. Reproductive Organs: No abnormal masses or calcifications seen. Inguinal: The inguinal region is unremarkable without evidence of adenopathy. Bony Structures: Unremarkable. CONCLUSION: 1. Bilateral lower lobe consolidations left greater than right. Distended small and large bowel with out evidence of wall thickening or obstruction. NG tube coiled within the stomach. Electronically signed by: Darren Venegas MD Board Certified Radiologist 04/11/2018 2:07 PM EST
--- NOTE | 2018-04-11 14:09 | CT ---
EXAM DATE: 04/11/2018 1:57 PM EST AGE/SEX: 67 years / Male INDICATIONS: Respiratory failure. Evaluate for pneumonia. CLINICAL DATA: This is the patient's initial encounter. Patient reports that signs and symptoms have been present for 2 days and indicates a pain score of 0/10. MEDICAL/SURGICAL HISTORY: Gastroesophageal reflux disease. Inguinal hernia repair. RADIATION DOSE: 5.25 CTDI (mGy) ; Combined studies COMPARISON: [facility], CHEST 1V SINGLE AP, 04/11/2018. . TECHNIQUE: Multiple contiguous axial images were obtained through the chest without contrast. Image s were obtained in suspended respiration using multiple row detector helical technique. Using automa meet exposure control and adjustment of the mA and/or kV according to patient size, radiation dose was kept as low as reasonably achievable to obtain optimal diagnostic quality images. DICOM format imag e data is available electronically for review and comparison. FINDINGS: Lung: Patient is intubated with ETT in good position. Near complete left lower lobe collapse. Airspac e consolidation in the posterior right lower lobe. Patchy nodular opacities in the right lower lobe c oalescing posteriorly. Pleura: No effusion, significant pleural thickening or pneumothorax. Mediastinum: Coronary artery calcifications. No significant pericardial effusion. No gross mediastin al adenopathy. Osseous Structures: No abnormal focal lytic or blastic bony lesions. Soft Tissues: Soft tissues are unremarkable. No significant axillary adenopathy. Other: There is an NGT coiled in the stomach. CONCLUSION: 1. Patchy nodular opacities in the right lower lobe coalescing posteriorly most consistent with an i nfectious etiology such as bronchopneumonia. 2. Near complete left lower lobe collapse and dense airspace consolidation in the posterior right lo wer lobe. Differential considerations include aspiration. 3. Coronary artery cavitations. Electronically signed by: Leo Ramirez MD Board Certified Radiologist 04/11/2018 2:07 PM EST
--- NOTE | 2018-04-11 14:30 | P.DIET ---
Nutritional Evaluation Type of nutrition evaluation: follow-up Nutrition consult regarding: Tube Feeding Objective - Diagnosis Generalized Weakness, Failure to Thrive - Objective % IBW: 102 (IBW = 184#) Body Weight Used for Calculations: Actual (84.9 kg) Energy Needs - Lower Range (kCal/kg): 25 Energy Needs - Upper Range (kCal/kg): 30 Lower Limit kCal/kg (kCals): 2,123 Upper Limit kCal/kg (kCals): 2,547 Lower Limit Protein Factor (Grams per Kg): 1.2 Upper Limit Protein Factor (Grams per Kg): 1.6 Lower Protein Needs (Protein): 102 Upper Protein Needs (Protein): 136 Dietitian Reviewed in Medical Record: Curent medications, Intake & Output, Labs , Medical history, Tube feeding Diet Order: NPO Objective Comments: Meds include Synthroid 02/13 microdiscectomy C5-6 04/03 re-intubated 45 mins after extubation Assessment Assessment: Pt is at high nutrition risk 2' to his need for TFing. Current order is for Jevity 1.5 @ 60 mls/hr goal, however, the pt is not tolerating so TF is on hold with feeding tube to LIWS. Abdomen is disrended. When TF can be resumed, recommend change to Vital 1.5 goal rate of 65 mls/hr x 22 hrs (d/t Synthroid) to provide 2145 kcals, 96.5 gms protein and 1093 mls of free water. Also recommend the addition of Beneprotein 1 pack tid to provide an additional 18 gms protein and 75 kcals. Pleae note: TF must be held one hour before and after Synthroid is given. Recommendations: Vital 1.5 @ 65 mls/hr x 22 hours Beneprotein 1 pack tid Dietitian to Monitor: Lab values, Intake & Output, Tube feeding tolerance, Weight change, Medical course
[2018-04-11] MEDS: Micafungin Inj 150 MG in Sodium Chlor 0.9% Inj 100 ML IV.SIG SCH (15:16)
--- NOTE | 2018-04-11 16:03 | P.CONGI ---
History of Present Illness Consult date: 04/11/18 Consult reason: Ileus Chief complaint: Generalized weakness, failure to thrive History of Present Illness: This patient is a 67-year-old male with past medical history significant for gastroesophageal reflux disease, hyperlipidemia and thyroid disease. Surgical history significant for inguinal hernia repair, microdiscectomy and bilateral Lasix surgery. Patient presented to [facility] emergency room on March 31, 2018. At that time, patient was post microdiscectomy on 02/13/2018, C5 through C6. According to his , 2-3 days postoperatively, patient began to not feel well. Noted shortness of breath with generalized weakness. Upon arrival to ED, patient was found to be in severe respiratory distress and was intubated. Patient presently being cared for in the intensive care setting. Orogastric tube placed for tube feedings. At this time orogastric tube attached to low intermittent wall suction. Patient unable to tolerate tube feedings for 2 days with increasing abdominal distention. CT reveals dilated loops of small and large bowel. Our service has been consulted to evaluate patient for ileus. Information comprising history of present illness obtained from patient's spouse. She endorses that patient has history of gastric reflux disease and takes Protonix 40 mg p.o. daily ,sometimes as needed. She states patient eats a regular diet and will experience occasional symptoms of acid reflux. Of note, she states patient had been taking 800 mg ibuprofen daily for neck pain prior to microdiscectomy. She states EGD and colonoscopy performed in 2015, to her recollection EGD revealed gastritis and colonoscopy which yielded benign polyp. Patient presently having loose brown stools. Orogastric tube drainage moderate amount of dark green gastric content. <Sammi Delgado - Last Filed: 04/11/18 15:31> Review of Systems unobtainable due to endotracheal tube, other <Sammi Delgado - Last Filed: 04/11/18 15:31> PMF - History History Provided By: Family Member, Significant Other (), Medical Record - Medical History Medical History: Medical History (Last Reviewed 04/10/18 @ 17:42 by Eula Tony APRN) GERD (gastroesophageal reflux disease) High cholesterol Raspy voice Thyroid disease - Surgical History Surgical History: Surgical History (Last Reviewed 04/10/18 @ 17:42 by Eula Tony APRN) H/O microdiscectomy H/O inguinal hernia repair Status post bilateral LASIK surgery - Family History Family History: Family History (Last Reviewed 04/10/18 @ 17:42 by Eula Tony APRN) Other Family history non-contributory - Tobacco History Second Hand Smoke Exposure: No Tobacco Use In Past 30 Days: No Smoking Status: Never smoker Tobacco Type: Cigarettes - Alcohol History How Often Do You Have a Drink Containing Alcohol: Monthly or less - Substance Use History Substance History: No History of Abuse - Travel History Recent Travel in the [place] Within the Last 8 Weeks: No Recent Travel Out of the Country Within the Last 8 Weeks: No - Immunization History Tetanus Immunization: <5 Years Hx Influenza Vaccine This Season: Yes <Sammi Delgado - Last Filed: 04/11/18 15:31> - Medical History Medical History: Medical History (Last Reviewed 04/10/18 @ 17:42 by Eula Tony APRN) GERD (gastroesophageal reflux disease) High cholesterol Raspy voice Thyroid disease - Surgical History Surgical History: Surgical History (Last Reviewed 04/10/18 @ 17:42 by Eula Tony APRN) H/O microdiscectomy H/O inguinal hernia repair Status post bilateral LASIK surgery - Family History Family History: Family History (Last Reviewed 04/10/18 @ 17:42 by Eula Tony APRN) Other Family history non-contributory <Annamarie Srivastava - Last Filed: 04/11/18 19:40> Medications and Allergies Active Medications: Active Medications Acetaminophen (Tylenol) 650 mg PO Q6H PRN PRN Reason: Temp > 100.4 Last Admin: 04/11/18 06:19 Dose: 650 mg Albuterol (Duoneb Neb (Je)) 1 ampul NEB Q4HR NEB JE Last Admin: 04/11/18 12:01 Dose: 1 ampul Albuterol (Albuterol Neb (Prn)) 2.5 mg NEB Q2HR NEB PRN PRN Reason: DYSPNEA Artificial Tears (Tears Naturale Opth Drops) 1 drop EACH EYE Q8H JE Last Admin: 04/11/18 09:00 Dose: 1 drop Aspirin (Aspirin Chew) 81 mg PO DAILY JE Last Admin: 04/11/18 09:30 Dose: 81 mg Chlorhexidine Gluconate (Peridex 0.12% Oral Kit) 15 ml OROPHARYNG BID@0800, 2000 [facility] Last Admin: 04/11/18 09:32 Dose: 15 ml Enoxaparin Sodium (Lovenox Inj) 40 mg SQ DAILY [facility] Last Admin: 04/11/18 09:28 Dose: 40 mg Midazolam HCl (Versed Inj) 100 mg in 100 mls @ 2 mls/hr IV.CONT TITRATE PRN; Protocol PRN Reason: See protocol Last Titration: 04/11/18 10:00 Dose: 4 mg/hr, 4 mls/hr Dexmedetomidine HCl 1,000 mcg/ (Sodium Chloride) 250 mls @ 4.31 mls/hr IV.CONT TITRATE PRN; Protocol PRN Reason: Per Protocol Last Titration: 04/11/18 08:10 Dose: 1 mcg/kg/hr, 21.57 mls/hr Phenylephrine HCl 160 mg/ (Sodium Chloride) 500 mls @ 7.5 mls/hr IV.CONT TITRATE PRN; Protocol PRN Reason: Per Protocol Last Titration: 04/11/18 08:44 Dose: 60 mcg/min, 11.25 mls/hr Piperacillin/Tazobactam/Dextrose (Zosyn 2.25 Gm Premix) 2.25 gm in 50 mls @ 100 mls/hr IV.SIG Q6H [facility] Last Admin: 04/11/18 15:16 Dose: 200 mls/hr Dextrose/Sodium Chloride (D5w/1/2 Ns Inj) 1,000 mls @ 84 mls/hr IV.CONT .[id number] [facility] Last Admin: 04/11/18 09:26 Dose: 84 mls/hr Micafungin Sodium 150 mg/ (Sodium Chloride) 100 mls @ 100 mls/hr IV.SIG Q24H [facility] Last Admin: 04/11/18 15:16 Dose: 100 mls/hr Vancomycin HCl 1,500 mg/ (Sodium Chloride) 515 mls @ 250 mls/hr IV.SIG ONCE ONE Stop: 04/11/18 16:03 Last Admin: 04/11/18 15:15 Dose: 250 mls/hr Labetalol HCl (Trandate Inj) 20 mg IV.PUSH Q1H PRN PRN Reason: SBP > 160 Lactulose (Lactulose Liq) 30 ml PO TID [facility] Last Admin: 04/11/18 15:15 Dose: Not Given Lansoprazole (Prevacid Solutab) 30 mg NG/OG DAILY [facility] Last Admin: 04/11/18 09:30 Dose: 30 mg Levothyroxine Sodium (Synthroid) 125 mcg PO DAILY@0600 [facility] Last Admin: 04/11/18 05:05 Dose: Not Given Metoclopramide HCl (Reglan Inj) 5 mg IV.PUSH Q8HR [facility]; Protocol Last Admin: 04/11/18 15:15 Dose: Not Given Miscellaneous Medication () 1 each OROPHARYNG 0000,0400,1200,1600 [facility] Last Admin: 04/11/18 15:14 Dose: 1 each Ondansetron HCl (Zofran Inj) 4 mg IV.PUSH Q4H PRN PRN Reason: NAUSEA OR VOMITING Polyethylene Glycol (Miralax) 17 gm PO BID [facility] Last Admin: 04/11/18 09:32 Dose: Not Given Pravastatin Sodium (Pravachol) 40 mg PO HS [facility] Last Admin: 04/10/18 20:24 Dose: 40 mg Senna/Docusate Sodium (Celine-Colace) 1 tab PO BID [facility] Last Admin: 04/11/18 09:32 Dose: Not Given Sodium Chloride (Ns Flush) 2 ml IV.FLUSH BID [facility] Last Admin: 04/11/18 09:32 Dose: 2 ml Sodium Chloride (Ns Flush) 2 ml IV.FLUSH PRN PRN PRN Reason: FLUSH AFTER USING IV ACCESS Sodium Chloride (Ns Flush) 0 ml IV.FLUSH DAILY [facility] Last Admin: 04/11/18 09:32 Dose: 10 ml Sterile Water (Free Water) 200 ml NG/OG Q6HR [facility] Last Admin: 04/11/18 15:14 Dose: 200 ml Terbutaline Sulfate (Brethine Inj) 1 mg SQ UNSCH PRN PRN Reason: For Extravasation <Sammi Delgado - Last Filed: 04/11/18 15:31> Active Medications: Active Medications Acetaminophen (Tylenol) 650 mg PO Q6H PRN PRN Reason: Temp > 100.4 Last Admin: 04/11/18 06:19 Dose: 650 mg Albuterol (Duoneb Neb ([facility])) 1 ampul NEB Q4HR NEB [facility] Last Admin: 04/11/18 16:43 Dose: 1 ampul Albuterol (Albuterol Neb (Prn)) 2.5 mg NEB Q2HR NEB PRN PRN Reason: DYSPNEA Artificial Tears (Tears Naturale Opth Drops) 1 drop EACH EYE Q8H [facility] Last Admin: 04/11/18 18:45 Dose: 1 drop Aspirin (Aspirin Chew) 81 mg PO DAILY [facility] Last Admin: 04/11/18 09:30 Dose: 81 mg Chlorhexidine Gluconate (Peridex 0.12% Oral Kit) 15 ml OROPHARYNG BID@0800, 2000 [facility] Last Admin: 04/11/18 09:32 Dose: 15 ml Enoxaparin Sodium (Lovenox Inj) 40 mg SQ DAILY [facility] Last Admin: 04/11/18 09:28 Dose: 40 mg Midazolam HCl (Versed Inj) 100 mg in 100 mls @ 2 mls/hr IV.CONT TITRATE PRN; Protocol PRN Reason: See protocol Last Titration: 04/11/18 15:30 Dose: 0 mg/hr, 0 mls/hr Dexmedetomidine HCl 1,000 mcg/ (Sodium Chloride) 250 mls @ 4.31 mls/hr IV.CONT TITRATE PRN; Protocol PRN Reason: Per Protocol Last Admin: 04/11/18 18:46 Dose: 1 mcg/kg/hr, 21.57 mls/hr Phenylephrine HCl 160 mg/ (Sodium Chloride) 500 mls @ 7.5 mls/hr IV.CONT TITRATE PRN; Protocol PRN Reason: Per Protocol Last Titration: 04/11/18 17:01 Dose: 40 mcg/min, 7.5 mls/hr Piperacillin/Tazobactam/Dextrose (Zosyn 2.25 Gm Premix) 2.25 gm in 50 mls @ 100 mls/hr IV.SIG Q6H [facility] Last Admin: 04/11/18 15:16 Dose: 200 mls/hr Dextrose/Sodium Chloride (D5w/1/2 Ns Inj) 1,000 mls @ 84 mls/hr IV.CONT .[id number] [facility] Last Admin: 04/11/18 09:26 Dose: 84 mls/hr Micafungin Sodium 150 mg/ (Sodium Chloride) 100 mls @ 100 mls/hr IV.SIG Q24H [facility] Last Admin: 04/11/18 15:16 Dose: 100 mls/hr Labetalol HCl (Trandate Inj) 20 mg IV.PUSH Q1H PRN PRN Reason: SBP > 160 Lactulose (Lactulose Liq) 30 ml PO TID [facility] Last Admin: 04/11/18 18:45 Dose: Not Given Lansoprazole (Prevacid Solutab) 30 mg NG/OG DAILY [facility] Last Admin: 04/11/18 09:30 Dose: 30 mg Levothyroxine Sodium (Synthroid) 125 mcg PO DAILY@0600 [facility] Last Admin: 04/11/18 05:05 Dose: Not Given Metoclopramide HCl (Reglan Inj) 5 mg IV.PUSH Q8HR [facility]; Protocol Last Admin: 04/11/18 15:15 Dose: Not Given Miscellaneous Medication () 1 each OROPHARYNG 0000,0400,1200,1600 [facility] Last Admin: 04/11/18 18:45 Dose: 1 each Ondansetron HCl (Zofran Inj) 4 mg IV.PUSH Q4H PRN PRN Reason: NAUSEA OR VOMITING Polyethylene Glycol (Miralax) 17 gm PO BID [facility] Last Admin: 04/11/18 09:32 Dose: Not Given Pravastatin Sodium (Pravachol) 40 mg PO HS [facility] Last Admin: 04/10/18 20:24 Dose: 40 mg Senna/Docusate Sodium (Celine-Colace) 1 tab PO BID [facility] Last Admin: 04/11/18 09:32 Dose: Not Given Sodium Chloride (Ns Flush) 2 ml IV.FLUSH BID [facility] Last Admin: 04/11/18 09:32 Dose: 2 ml Sodium Chloride (Ns Flush) 2 ml IV.FLUSH PRN PRN PRN Reason: FLUSH AFTER USING IV ACCESS Sodium Chloride (Ns Flush) 0 ml IV.FLUSH DAILY [facility] Last Admin: 04/11/18 09:32 Dose: 10 ml Sterile Water (Free Water) 200 ml NG/OG Q6HR [facility] Last Admin: 04/11/18 18:45 Dose: 200 ml Terbutaline Sulfate (Brethine Inj) 1 mg SQ UNSCH PRN PRN Reason: For Extravasation <Hemaidan,Ammar - Last Filed: 04/11/18 19:40> Allergies Allergy/AdvReac Type Severity Reaction Status Date / Time Sulfa (Sulfonamide Allergy Severe Nausea Verified 02/15/18 05:02 Antibiotics) Home Medications Medication Instructions Recorded Confirmed Type aspirin 81 mg PO DAILY 02/08/18 03/31/18 History levothyroxine 125 mcg PO DAILY 02/08/18 03/31/18 History pantoprazole [Protonix] 40 mg PO DAILY 02/08/18 03/31/18 History pravastatin 40 mg PO HS 02/08/18 03/31/18 History amlodipine [Norvasc] 10 mg PO DAILY 03/31/18 03/31/18 History ranitidine HCl [Zantac] 150 mg PO DAILY 03/31/18 03/31/18 History Exam Vital signs: Vital Signs 04/10/18 15:35 04/10/18 15:50 04/10/18 16:00 Temperature 97.7 F 97.5 F L 99.3 F Pulse Rate 116 H 116 H 125 H Respiratory Rate 15 15 15 Blood Pressure 125/66 136/78 Pulse Oximetry 95 95 96 04/10/18 16:05 04/10/18 16:20 04/10/18 16:35 Temperature 99.1 F 99.1 F 99.3 F Pulse Rate 127 H 122 H 111 H Respiratory Rate 15 15 15 Blood Pressure 153/92 H 139/83 104/67 Pulse Oximetry 96 95 94 L 04/10/18 16:50 04/10/18 17:00 04/10/18 17:05 Temperature 99.5 F 99.5 F 99.5 F Pulse Rate 119 H 115 H 108 H Respiratory Rate 15 15 15 Blood Pressure 118/77 92/52 L Pulse Oximetry 95 95 94 L 04/10/18 17:16 04/10/18 17:18 04/10/18 17:20 Temperature 99.7 F H Pulse Rate 116 H 113 H Respiratory Rate 15 15 15 Blood Pressure 103/68 Pulse Oximetry 95 96 04/10/18 17:35 04/10/18 17:50 04/10/18 18:00 Temperature 99.7 F H 99.5 F 99.5 F Pulse Rate 101 H 111 H 100 H Respiratory Rate 15 15 15 Blood Pressure 81/52 L 120/73 Pulse Oximetry 95 95 94 L 04/10/18 18:05 04/10/18 18:20 04/10/18 18:35 Temperature 99.7 F H 99.7 F H Pulse Rate 100 H 102 H 114 H Respiratory Rate 15 15 15 Blood Pressure 98/61 L 98/64 L 112/69 Pulse Oximetry 95 95 94 L 04/10/18 18:50 04/10/18 20:00 04/10/18 20:05 Temperature 98.8 F 99.1 F 99.3 F Pulse Rate 108 H 106 H 106 H Respiratory Rate 15 15 15 Blood Pressure 77/52 L Pulse Oximetry 95 93 L 93 L 04/10/18 20:20 04/10/18 20:35 04/10/18 20:50 Temperature 99.3 F 99.5 F 99.5 F Pulse Rate 108 H 110 H 114 H Respiratory Rate 15 15 15 Blood Pressure 106/64 125/82 118/73 Pulse Oximetry 93 L 93 L 92 L 04/10/18 21:00 04/10/18 21:05 04/10/18 21:20 Temperature 99.5 F 99.5 F 99.5 F Pulse Rate 134 H 133 H 141 H Respiratory Rate 15 15 15 Blood Pressure 151/92 H 170/91 H Pulse Oximetry 94 L 93 L 93 L 04/10/18 21:34 04/10/18 21:35 04/10/18 22:00 Temperature 99.7 F H 99.9 F H Pulse Rate 140 H 133 H Respiratory Rate 16 15 15 Blood Pressure 154/89 H Pulse Oximetry 93 L 90 L 93 L 04/10/18 22:05 04/10/18 22:35 04/10/18 22:37 Temperature 99.9 F H 100.2 F H 100.2 F H Pulse Rate 121 H 81 81 Respiratory Rate 15 15 15 Blood Pressure 86/60 L 51/33 L 74/47 L Pulse Oximetry 88 L 88 L 91 L 04/10/18 22:46 04/10/18 23:00 04/10/18 23:01 Temperature 100.2 F H 100.2 F H 100.2 F H Pulse Rate 97 H 77 77 Respiratory Rate 15 15 15 Blood Pressure 95/49 L 54/35 L Pulse Oximetry 90 L 95 95 04/10/18 23:05 04/10/18 23:16 04/10/18 23:31 Temperature 100.2 F H 100.2 F H 100.2 F H Pulse Rate 78 95 H 112 H Respiratory Rate 15 15 16 Blood Pressure 90/59 L 92/61 L 126/80 Pulse Oximetry 96 92 L 97 04/10/18 23:46 04/11/18 00:00 04/11/18 00:01 Temperature 100.4 F H Pulse Rate 86 134 H 132 H Respiratory Rate 15 17 15 Blood Pressure 101/56 L 116/79 Pulse Oximetry 94 L 91 L 93 L 04/11/18 00:16 04/11/18 00:21 04/11/18 00:31 Temperature Pulse Rate 111 H 104 H Respiratory Rate 15 15 15 Blood Pressure 78/52 L 74/42 L Pulse Oximetry 89 L 93 L 93 L 04/11/18 00:46 04/11/18 01:00 04/11/18 01:01 Temperature 99.0 F 99.0 F Pulse Rate 91 H 97 H 103 H Respiratory Rate 15 15 15 Blood Pressure 77/49 L 77/52 L Pulse Oximetry 90 L 90 L 90 L 04/11/18 01:16 04/11/18 01:31 04/11/18 01:46 Temperature 99.3 F 99.5 F 99.5 F Pulse Rate 93 H 95 H 104 H Respiratory Rate 15 15 15 Blood Pressure 72/51 L 74/54 L 98/60 L Pulse Oximetry 91 L 92 L 95 04/11/18 02:00 04/11/18 02:01 04/11/18 02:06 Temperature 99.7 F H 99.7 F H 99.7 F H Pulse Rate 81 81 80 Respiratory Rate 15 15 15 Blood Pressure 69/51 L 80/51 L Pulse Oximetry 96 96 96 04/11/18 02:16 04/11/18 02:31 04/11/18 02:46 Temperature 99.7 F H 99.7 F H 99.7 F H Pulse Rate 83 83 81 Respiratory Rate 15 15 15 Blood Pressure 94/66 L 99/67 L 99/66 L Pulse Oximetry 97 96 96 04/11/18 03:00 04/11/18 03:01 04/11/18 03:16 Temperature 99.7 F H 99.7 F H 99.7 F H Pulse Rate 82 82 116 H Respiratory Rate 15 15 15 Blood Pressure 105/58 L 130/67 Pulse Oximetry 94 L 94 L 04/11/18 03:31 04/11/18 03:46 04/11/18 04:00 Temperature 99.9 F H 100.2 F H 100.2 F H Pulse Rate 105 H 89 82 Respiratory Rate 15 15 15 Blood Pressure 124/75 101/59 L Pulse Oximetry 94 L 93 L 94 L 04/11/18 04:01 04/11/18 04:16 04/11/18 04:20 Temperature 100.2 F H 100.4 F H Pulse Rate 81 103 H 116 H Respiratory Rate 15 15 15 Blood Pressure 94/52 L 127/74 Pulse Oximetry 94 L 94 L 94 L 04/11/18 04:31 04/11/18 04:46 04/11/18 05:00 Temperature 100.2 F H 100.2 F H 100.2 F H Pulse Rate 97 H 89 84 Respiratory Rate 15 15 15 Blood Pressure 111/66 103/60 Pulse Oximetry 94 L 94 L 94 L 04/11/18 05:01 04/11/18 05:16 04/11/18 05:31 Temperature 100.2 F H 100.2 F H 100.2 F H Pulse Rate 84 85 82 Respiratory Rate 15 15 15 Blood Pressure 106/59 L 105/61 105/68 Pulse Oximetry 94 L 95 96 04/11/18 05:46 04/11/18 06:00 04/11/18 06:01 Temperature 100.2 F H 100.2 F H 101.1 F H Pulse Rate 81 81 80 Respiratory Rate 15 15 15 Blood Pressure 105/61 106/60 Pulse Oximetry 96 96 96 04/11/18 08:00 04/11/18 08:02 04/11/18 08:05 Temperature 101.3 F H Pulse Rate 96 H Respiratory Rate 15 Blood Pressure 162/86 H 166/89 H Pulse Oximetry 99 98 04/11/18 08:07 04/11/18 08:10 04/11/18 08:12 Temperature 101.3 F H 101.3 F H 101.3 F H Pulse Rate 94 H 89 90 Respiratory Rate 15 15 15 Blood Pressure 159/77 H 152/82 H 154/86 H Pulse Oximetry 98 98 98 04/11/18 08:15 04/11/18 08:17 04/11/18 08:20 Temperature 101.3 F H 101.3 F H 101.3 F H Pulse Rate 89 88 92 H Respiratory Rate 15 15 15 Blood Pressure 155/84 H 154/89 H 159/93 H Pulse Oximetry 98 98 98 04/11/18 08:22 04/11/18 08:25 04/11/18 08:27 Temperature 101.5 F H 101.5 F H 101.5 F H Pulse Rate 90 85 90 Respiratory Rate 15 15 15 Blood Pressure 150/81 H 148/77 H 145/77 H Pulse Oximetry 98 98 97 04/11/18 08:30 04/11/18 08:32 04/11/18 08:35 Temperature 101.7 F H 101.7 F H 101.7 F H Pulse Rate 92 H 89 91 H Respiratory Rate 15 15 15 Blood Pressure 154/84 H 156/84 H 154/87 H Pulse Oximetry 97 98 97 04/11/18 08:46 04/11/18 08:47 04/11/18 09:00 Temperature 101.7 F H 101.7 F H Pulse Rate 84 83 81 Respiratory Rate 15 15 15 Blood Pressure 136/77 Pulse Oximetry 97 97 96 04/11/18 09:02 04/11/18 09:17 04/11/18 09:32 Temperature 101.7 F H 101.7 F H 101.5 F H Pulse Rate 81 80 78 Respiratory Rate 15 15 15 Blood Pressure 125/74 131/62 128/68 Pulse Oximetry 95 93 L 93 L 04/11/18 09:47 04/11/18 10:00 04/11/18 10:02 Temperature 101.5 F H 101.5 F H 101.5 F H Pulse Rate 77 80 80 Respiratory Rate 15 15 15 Blood Pressure 141/76 H 126/71 Pulse Oximetry 93 L 94 L 94 L 04/11/18 10:17 04/11/18 10:32 04/11/18 10:47 Temperature 101.3 F H 100.9 F H 100.2 F H Pulse Rate 86 82 77 Respiratory Rate 15 15 15 Blood Pressure 137/81 114/71 120/74 Pulse Oximetry 95 98 98 04/11/18 11:00 04/11/18 11:02 04/11/18 11:17 Temperature 100.0 F H 100.0 F H 99.9 F H Pulse Rate 75 75 74 Respiratory Rate 15 15 15 Blood Pressure 126/78 131/81 Pulse Oximetry 98 98 98 04/11/18 11:32 04/11/18 11:47 04/11/18 12:00 Temperature 99.9 F H 99.7 F H 99.7 F H Pulse Rate 74 74 75 Respiratory Rate 15 15 15 Blood Pressure 138/82 146/83 H Pulse Oximetry 99 99 98 04/11/18 12:01 04/11/18 12:02 04/11/18 12:04 Temperature 99.7 F H 99.7 F H Pulse Rate 74 74 74 Respiratory Rate 15 15 15 Blood Pressure 140/84 Pulse Oximetry 98 98 99 04/11/18 12:17 04/11/18 12:32 04/11/18 12:47 Temperature 99.7 F H 99.7 F H 99.7 F H Pulse Rate 74 74 72 Respiratory Rate 15 15 15 Blood Pressure 139/85 139/87 138/86 Pulse Oximetry 98 97 98 04/11/18 13:00 04/11/18 13:02 04/11/18 13:33 Temperature 99.5 F 99.5 F Pulse Rate 72 72 68 Respiratory Rate 15 15 15 Blood Pressure 136/83 123/73 Pulse Oximetry 98 98 95 04/11/18 13:44 04/11/18 13:55 04/11/18 13:59 Temperature 99.5 F 100.2 F H 100.0 F H Pulse Rate 67 105 H 109 H Respiratory Rate 11 L 28 H 36 H Blood Pressure 129/75 210/99 H 213/91 H Pulse Oximetry 98 92 L 72 L 04/11/18 14:00 04/11/18 14:02 04/11/18 15:00 Temperature 100.0 F H 100.0 F H 99.7 F H Pulse Rate 91 H 116 H 73 Respiratory Rate 40 H 27 H 19 Blood Pressure 131/63 Pulse Oximetry 61 L 96 99 Intake & Output 04/10/18 04/11/18 04/11/18 18:59 06:59 18:59 Intake Total 1777 / 1777 840 / 840 500 / 500 Output Total 500 / 500 935 / 935 Balance 1277 / 1277 -95 / -95 500 / 500 Weight 88.3 kg Intake: IV 1316 / 1316 500 / 500 300 / 300 Precedex Inj 1,000 MCG In NS 250 / 250 250 / 250 Inj 240 ML @ 0.2 MCG/KG/HR 4.31 mls/hr IV.CONT TITRATE PRN Rx# :[id number] Zosyn 2.25 GM Premix 2.25 gm In 50 / 50 50 ml @ 100 mls/hr IV.SIG Q6H JE Rx#:[id number] 1/2 Normal Saline Inj 1,000 ML 1000 / 1000 @ Wide Open IV.SIG BOLUS ONE Rx #:[id number] fentaNYL 10 mcg/mL Premix Drip 66 / 66 250 / 250 250 / 250 2,500 mcg In 250 ml @ 50 MCG/HR 5 mls/hr IV.SIG TITRATE PRN Rx #:[id number] Tube Feeding 461 / 461 220 / 220 Tube Irrigant 120 / 120 Free Water Amount 200 / 200 Output: Urine Amount (Catheter) 500 / 500 335 / 335 Indwelling Urethral Catheter 500 / 500 335 / 335 Gastric Drainage 600 / 600 Orogastric Tube 600 / 600 Other: Date of Last Bowel Movement 04/11/18 04/11/18 # Bowel Movements 1 # Incontinent Bowel Movements 1 - Constitutional Comments: Intubated sedated and mechanically ventilated - Routine HEENT Exam Head: Present: normocephalic, atraumatic - Routine Respiratory Exam Present: patient mechanically ventilated, CTA bilaterally - Routine Cardiovascular Exam Present: RRR, S1, S2 - Routine Abdominal Exam Present: distended Comments: Distant bowel sounds present - Routine Extremities Exam Present: pulses intact. Absent: edema - Routine Skin Exam Present: dry, warm - Routine Neurological Exam Endotracheal intubation Sedation and mechanically ventilated <Sammi Delgado - Last Filed: 04/11/18 15:31> Vital signs: Vital Signs 04/10/18 20:00 04/10/18 20:05 04/10/18 20:20 Temperature 99.1 F 99.3 F 99.3 F Pulse Rate 106 H 106 H 108 H Respiratory Rate 15 15 15 Blood Pressure 77/52 L 106/64 Pulse Oximetry 93 L 93 L 93 L 04/10/18 20:35 04/10/18 20:50 04/10/18 21:00 Temperature 99.5 F 99.5 F 99.5 F Pulse Rate 110 H 114 H 134 H Respiratory Rate 15 15 15 Blood Pressure 125/82 118/73 Pulse Oximetry 93 L 92 L 94 L 04/10/18 21:05 04/10/18 21:20 04/10/18 21:34 Temperature 99.5 F 99.5 F Pulse Rate 133 H 141 H Respiratory Rate 15 15 16 Blood Pressure 151/92 H 170/91 H Pulse Oximetry 93 L 93 L 93 L 04/10/18 21:35 04/10/18 22:00 04/10/18 22:05 Temperature 99.7 F H 99.9 F H 99.9 F H Pulse Rate 140 H 133 H 121 H Respiratory Rate 15 15 15 Blood Pressure 154/89 H 86/60 L Pulse Oximetry 90 L 93 L 88 L 04/10/18 22:35 04/10/18 22:37 04/10/18 22:46 Temperature 100.2 F H 100.2 F H 100.2 F H Pulse Rate 81 81 97 H Respiratory Rate 15 15 15 Blood Pressure 51/33 L 74/47 L 95/49 L Pulse Oximetry 88 L 91 L 90 L 04/10/18 23:00 04/10/18 23:01 04/10/18 23:05 Temperature 100.2 F H 100.2 F H 100.2 F H Pulse Rate 77 77 78 Respiratory Rate 15 15 15 Blood Pressure 54/35 L 90/59 L Pulse Oximetry 95 95 96 04/10/18 23:16 04/10/18 23:31 04/10/18 23:46 Temperature 100.2 F H 100.2 F H 100.4 F H Pulse Rate 95 H 112 H 86 Respiratory Rate 15 16 15 Blood Pressure 92/61 L 126/80 101/56 L Pulse Oximetry 92 L 97 94 L 04/11/18 00:00 04/11/18 00:01 04/11/18 00:16 Temperature Pulse Rate 134 H 132 H 111 H Respiratory Rate 17 15 15 Blood Pressure 116/79 78/52 L Pulse Oximetry 91 L 93 L 89 L 04/11/18 00:21 04/11/18 00:31 04/11/18 00:46 Temperature Pulse Rate 104 H 91 H Respiratory Rate 15 15 15 Blood Pressure 74/42 L 77/49 L Pulse Oximetry 93 L 93 L 90 L 04/11/18 01:00 04/11/18 01:01 04/11/18 01:16 Temperature 99.0 F 99.0 F 99.3 F Pulse Rate 97 H 103 H 93 H Respiratory Rate 15 15 15 Blood Pressure 77/52 L 72/51 L Pulse Oximetry 90 L 90 L 91 L 04/11/18 01:31 04/11/18 01:46 04/11/18 02:00 Temperature 99.5 F 99.5 F 99.7 F H Pulse Rate 95 H 104 H 81 Respiratory Rate 15 15 15 Blood Pressure 74/54 L 98/60 L Pulse Oximetry 92 L 95 96 04/11/18 02:01 04/11/18 02:06 04/11/18 02:16 Temperature 99.7 F H 99.7 F H 99.7 F H Pulse Rate 81 80 83 Respiratory Rate 15 15 15 Blood Pressure 69/51 L 80/51 L 94/66 L Pulse Oximetry 96 96 97 04/11/18 02:31 04/11/18 02:46 04/11/18 03:00 Temperature 99.7 F H 99.7 F H 99.7 F H Pulse Rate 83 81 82 Respiratory Rate 15 15 15 Blood Pressure 99/67 L 99/66 L Pulse Oximetry 96 96 94 L 04/11/18 03:01 04/11/18 03:16 04/11/18 03:31 Temperature 99.7 F H 99.7 F H 99.9 F H Pulse Rate 82 116 H 105 H Respiratory Rate 15 15 15 Blood Pressure 105/58 L 130/67 124/75 Pulse Oximetry 94 L 94 L 04/11/18 03:46 04/11/18 04:00 04/11/18 04:01 Temperature 100.2 F H 100.2 F H 100.2 F H Pulse Rate 89 82 81 Respiratory Rate 15 15 15 Blood Pressure 101/59 L 94/52 L Pulse Oximetry 93 L 94 L 94 L 04/11/18 04:16 04/11/18 04:20 04/11/18 04:31 Temperature 100.4 F H 100.2 F H Pulse Rate 103 H 116 H 97 H Respiratory Rate 15 15 15 Blood Pressure 127/74 111/66 Pulse Oximetry 94 L 94 L 94 L 04/11/18 04:46 04/11/18 05:00 04/11/18 05:01 Temperature 100.2 F H 100.2 F H 100.2 F H Pulse Rate 89 84 84 Respiratory Rate 15 15 15 Blood Pressure 103/60 106/59 L Pulse Oximetry 94 L 94 L 94 L 04/11/18 05:16 04/11/18 05:31 04/11/18 05:46 Temperature 100.2 F H 100.2 F H 100.2 F H Pulse Rate 85 82 81 Respiratory Rate 15 15 15 Blood Pressure 105/61 105/68 105/61 Pulse Oximetry 95 96 96 04/11/18 06:00 04/11/18 06:01 04/11/18 08:00 Temperature 100.2 F H 101.1 F H Pulse Rate 81 80 Respiratory Rate 15 15 Blood Pressure 106/60 Pulse Oximetry 96 96 99 04/11/18 08:02 04/11/18 08:05 04/11/18 08:07 Temperature 101.3 F H 101.3 F H Pulse Rate 96 H 94 H Respiratory Rate 15 15 Blood Pressure 162/86 H 166/89 H 159/77 H Pulse Oximetry 98 98 04/11/18 08:10 04/11/18 08:12 04/11/18 08:15 Temperature 101.3 F H 101.3 F H 101.3 F H Pulse Rate 89 90 89 Respiratory Rate 15 15 15 Blood Pressure 152/82 H 154/86 H 155/84 H Pulse Oximetry 98 98 98 04/11/18 08:17 04/11/18 08:20 04/11/18 08:22 Temperature 101.3 F H 101.3 F H 101.5 F H Pulse Rate 88 92 H 90 Respiratory Rate 15 15 15 Blood Pressure 154/89 H 159/93 H 150/81 H Pulse Oximetry 98 98 98 04/11/18 08:25 04/11/18 08:27 04/11/18 08:30 Temperature 101.5 F H 101.5 F H 101.7 F H Pulse Rate 85 90 92 H Respiratory Rate 15 15 15 Blood Pressure 148/77 H 145/77 H 154/84 H Pulse Oximetry 98 97 97 04/11/18 08:32 04/11/18 08:35 04/11/18 08:46 Temperature 101.7 F H 101.7 F H Pulse Rate 89 91 H 84 Respiratory Rate 15 15 15 Blood Pressure 156/84 H 154/87 H Pulse Oximetry 98 97 97 04/11/18 08:47 04/11/18 09:00 04/11/18 09:02 Temperature 101.7 F H 101.7 F H 101.7 F H Pulse Rate 83 81 81 Respiratory Rate 15 15 15 Blood Pressure 136/77 125/74 Pulse Oximetry 97 96 95 04/11/18 09:17 04/11/18 09:32 04/11/18 09:47 Temperature 101.7 F H 101.5 F H 101.5 F H Pulse Rate 80 78 77 Respiratory Rate 15 15 15 Blood Pressure 131/62 128/68 141/76 H Pulse Oximetry 93 L 93 L 93 L 04/11/18 10:00 04/11/18 10:02 04/11/18 10:17 Temperature 101.5 F H 101.5 F H 101.3 F H Pulse Rate 80 80 86 Respiratory Rate 15 15 15 Blood Pressure 126/71 137/81 Pulse Oximetry 94 L 94 L 95 04/11/18 10:32 04/11/18 10:47 04/11/18 11:00 Temperature 100.9 F H 100.2 F H 100.0 F H Pulse Rate 82 77 75 Respiratory Rate 15 15 15 Blood Pressure 114/71 120/74 Pulse Oximetry 98 98 98 04/11/18 11:02 04/11/18 11:17 04/11/18 11:32 Temperature 100.0 F H 99.9 F H 99.9 F H Pulse Rate 75 74 74 Respiratory Rate 15 15 15 Blood Pressure 126/78 131/81 138/82 Pulse Oximetry 98 98 99 04/11/18 11:47 04/11/18 12:00 04/11/18 12:01 Temperature 99.7 F H 99.7 F H 99.7 F H Pulse Rate 74 75 74 Respiratory Rate 15 15 15 Blood Pressure 146/83 H Pulse Oximetry 99 98 98 04/11/18 12:02 04/11/18 12:04 04/11/18 12:17 Temperature 99.7 F H 99.7 F H Pulse Rate 74 74 74 Respiratory Rate 15 15 15 Blood Pressure 140/84 139/85 Pulse Oximetry 98 99 98 04/11/18 12:32 04/11/18 12:47 04/11/18 13:00 Temperature 99.7 F H 99.7 F H 99.5 F Pulse Rate 74 72 72 Respiratory Rate 15 15 15 Blood Pressure 139/87 138/86 Pulse Oximetry 97 98 98 04/11/18 13:02 04/11/18 13:25 04/11/18 13:33 Temperature 99.5 F Pulse Rate 72 68 Respiratory Rate 15 15 Blood Pressure 136/83 123/73 Pulse Oximetry 98 98 95 04/11/18 13:44 04/11/18 13:55 04/11/18 13:59 Temperature 99.5 F 100.2 F H 100.0 F H Pulse Rate 67 105 H 109 H Respiratory Rate 11 L 28 H 36 H Blood Pressure 129/75 210/99 H 213/91 H Pulse Oximetry 98 92 L 72 L 04/11/18 14:00 04/11/18 14:02 04/11/18 15:00 Temperature 100.0 F H 100.0 F H 99.7 F H Pulse Rate 91 H 116 H 73 Respiratory Rate 40 H 27 H 19 Blood Pressure 131/63 Pulse Oximetry 61 L 96 99 04/11/18 16:00 04/11/18 16:07 04/11/18 16:15 Temperature 99.7 F H 99.7 F H 99.7 F H Pulse Rate 65 65 64 Respiratory Rate 15 15 15 Blood Pressure 139/78 140/81 Pulse Oximetry 99 99 99 04/11/18 16:30 04/11/18 16:43 04/11/18 16:45 Temperature 99.7 F H 99.7 F H Pulse Rate 64 63 63 Respiratory Rate 15 15 15 Blood Pressure 144/82 H 145/84 H Pulse Oximetry 99 99 99 04/11/18 17:00 04/11/18 17:15 04/11/18 17:30 Temperature 99.7 F H 99.7 F H 99.7 F H Pulse Rate 65 63 62 Respiratory Rate 15 15 15 Blood Pressure 122/69 123/73 122/73 Pulse Oximetry 99 99 99 04/11/18 17:38 04/11/18 17:41 04/11/18 17:44 Temperature 99.9 F H 99.9 F H 99.9 F H Pulse Rate 63 62 63 Respiratory Rate 15 15 15 Blood Pressure 123/72 119/67 123/68 Pulse Oximetry 99 99 99 04/11/18 17:47 04/11/18 17:50 04/11/18 17:53 Temperature 99.9 F H 99.9 F H 99.9 F H Pulse Rate 62 63 66 Respiratory Rate 15 15 15 Blood Pressure 117/71 125/74 134/78 Pulse Oximetry 99 99 100 04/11/18 17:56 04/11/18 17:59 04/11/18 18:00 Temperature 99.9 F H 99.9 F H 99.9 F H Pulse Rate 66 65 64 Respiratory Rate 15 15 15 Blood Pressure 123/75 123/77 Pulse Oximetry 99 99 99 04/11/18 18:02 04/11/18 18:04 04/11/18 18:05 Temperature 99.9 F H 99.9 F H Pulse Rate 64 63 Respiratory Rate 15 15 Blood Pressure 123/72 122/72 Pulse Oximetry 99 99 Intake & Output 04/11/18 04/11/18 04/12/18 06:59 18:59 06:59 Intake Total 840 / 840 950 / 950 Output Total 935 / 935 Balance -95 / -95 950 / 950 Weight 88.3 kg Intake: IV 500 / 500 550 / 550 Precedex Inj 1,000 MCG In NS 250 / 250 250 / 250 Inj 240 ML @ 0.2 MCG/KG/HR 4.31 mls/hr IV.CONT TITRATE PRN Rx# :[id number] Zosyn 2.25 GM Premix 2.25 gm In 50 / 50 50 ml @ 100 mls/hr IV.SIG Q6H JE Rx#:[id number] fentaNYL 10 mcg/mL Premix Drip 250 / 250 250 / 250 2,500 mcg In 250 ml @ 50 MCG/HR 5 mls/hr IV.SIG TITRATE PRN Rx #:[id number] Tube Feeding 220 / 220 Tube Irrigant 120 / 120 Free Water Amount 400 / 400 Output: Urine Amount (Catheter) 335 / 335 Indwelling Urethral Catheter 335 / 335 Gastric Drainage 600 / 600 Orogastric Tube 600 / 600 Other: Date of Last Bowel Movement 04/11/18 04/11/18 # Bowel Movements 1 # Incontinent Bowel Movements 1 <Annamarie Srivastava - Last Filed: 04/11/18 19:40> Results - Labs CBC & Chem 7: 04/11/18 03:13 04/11/18 03:13 Labs: Laboratory Results - last 24 hr 04/10/18 04/10/18 04/11/18 17:50 18:45 03:13 WBC 24.6 H D RBC 3.99 L Hgb 12.4 L Hct 37.5 L MCV 94.0 MCH 31.1 MCHC 33.1 RDW 14.8 Plt Count 401 MPV 9.0 Neut % (Auto) 94.0 H Lymph % (Auto) 2.1 L Norman % (Auto) 3.3 Eos % (Auto) 0.2 Baso % (Auto) 0.4 Neut # (Auto) 23.1 H Lymph # (Auto) 0.5 L Norman # (Auto) 0.8 Eos # (Auto) 0.1 Baso # (Auto) 0.1 WBC Differential . Differential Comment Auto diff final Sodium Potassium 3.7 Chloride Carbon Dioxide Anion Gap BUN Creatinine Estimated GFR Random Glucose Lactic Acid Calcium Phosphorus Magnesium Total Bilirubin AST ALT Alkaline Phosphatase Ammonia Total Creatine Kinase Troponin I Total Protein Albumin Amylase Lipase Urine Color Ave Urine Clarity Cloudy H Urine pH 6.0 Ur Specific Cass 1.019 Urine Protein 100 H Urine Glucose (UA) Negative Urine Ketones Negative Urine Occult Blood Large H Urine Nitrate Negative Urine Bilirubin Negative Urine Urobilinogen Less than 2 Ur Leukocyte Esterase Moderate H Urine RBC 134 H Urine WBC 156 H Urine WBC Clumps Few H Ur Squamous Epith Cells <1 Urine Bacteria Rare H Hyaline Casts 63 Urine Mucus Moderate H Micro UA Comment Cath-culture ind Ur Microscopic Review Not Reportable Urine Culture Comments Cath-cult indicated 04/11/18 04/11/18 04/11/18 03:13 03:13 09:25 WBC RBC Hgb Hct MCV MCH MCHC RDW Plt Count MPV Neut % (Auto) Lymph % (Auto) Norman % (Auto) Eos % (Auto) Baso % (Auto) Neut # (Auto) Lymph # (Auto) Norman # (Auto) Eos # (Auto) Baso # (Auto) WBC Differential Differential Comment Sodium 150 H Potassium 3.8 Chloride 114 H Carbon Dioxide 28.4 Anion Gap 8 BUN 60 H Creatinine 2.69 H Estimated GFR 24 L Random Glucose 106 Lactic Acid 1.4 Calcium 9.7 Phosphorus 5.1 H D Magnesium 3.3 H Total Bilirubin 1.2 H AST 74 H ALT 180 H Alkaline Phosphatase 78 Ammonia 25 Total Creatine Kinase Troponin I Total Protein 7.4 D Albumin 3.6 Amylase Lipase Urine Color Urine Clarity Urine pH Ur Specific Cass Urine Protein Urine Glucose (UA) Urine Ketones Urine Occult Blood Urine Nitrate Urine Bilirubin Urine Urobilinogen Ur Leukocyte Esterase Urine RBC Urine WBC Urine WBC Clumps Ur Squamous Epith Cells Urine Bacteria Hyaline Casts Urine Mucus Micro UA Comment Ur Microscopic Review Urine Culture Comments 04/11/18 09:25 WBC RBC Hgb Hct MCV MCH MCHC RDW Plt Count MPV Neut % (Auto) Lymph % (Auto) Norman % (Auto) Eos % (Auto) Baso % (Auto) Neut # (Auto) Lymph # (Auto) Norman # (Auto) Eos # (Auto) Baso # (Auto) WBC Differential Differential Comment Sodium Potassium Chloride Carbon Dioxide Anion Gap BUN Creatinine Estimated GFR Random Glucose Lactic Acid Calcium Phosphorus Magnesium Total Bilirubin AST ALT Alkaline Phosphatase Ammonia Total Creatine Kinase 98 Troponin I 0.02 Total Protein Albumin Amylase 369 H Lipase 201 Urine Color Urine Clarity Urine pH Ur Specific Cass Urine Protein Urine Glucose (UA) Urine Ketones Urine Occult Blood Urine Nitrate Urine Bilirubin Urine Urobilinogen Ur Leukocyte Esterase Urine RBC Urine WBC Urine WBC Clumps Ur Squamous Epith Cells Urine Bacteria Hyaline Casts Urine Mucus Micro UA Comment Ur Microscopic Review Urine Culture Comments - Imaging Impressions Abdomen X-Ray 04/11/18 00:00 CONCLUSION: Moderate air throughout small and large bowel without evidence of pneumatosis or free air on these [address] 04/11/18 00:00 CONCLUSION: 1. Patchy nodular opacities in the right lower lobe coalescing posteriorly most consistent with an infectious etiology such as bronchopneumonia. 2. Near complete left lower lobe collapse and dense airspace consolidation in the posterior right lower lobe. Differential considerations include aspiration. 3. Coronary artery cavitations. Chest X-Ray 04/11/18 06:00 CONCLUSION: Stable exam. Support apparatus unchanged. Mild basilar airspace disease persists. Chest X-Ray 04/11/18 08:15 CONCLUSION: 1. Stable ETT and NGT. 2. Right IJ central line in good position without pneumothorax. 3. Stable mild bibasilar airspace disease. Abdomen/Pelvis CT 04/11/18 13:06 CONCLUSION: 1. Bilateral lower lobe consolidations left greater than right. Distended small and large bowel without evidence of wall thickening or obstruction. NG tube coiled within the stomach. <Sammi Delgado - Last Filed: 04/11/18 15:31> - Labs CBC & Chem 7: 04/11/18 03:13 04/11/18 03:13 Labs: Laboratory Results - last 24 hr 04/11/18 04/11/18 04/11/18 03:13 03:13 03:13 WBC 24.6 H D RBC 3.99 L Hgb 12.4 L Hct 37.5 L MCV 94.0 MCH 31.1 MCHC 33.1 RDW 14.8 Plt Count 401 MPV 9.0 Neut % (Auto) 94.0 H Lymph % (Auto) 2.1 L Norman % (Auto) 3.3 Eos % (Auto) 0.2 Baso % (Auto) 0.4 Neut # (Auto) 23.1 H Lymph # (Auto) 0.5 L Norman # (Auto) 0.8 Eos # (Auto) 0.1 Baso # (Auto) 0.1 WBC Differential . Differential Comment Auto diff final Sodium 150 H Potassium 3.8 Chloride 114 H Carbon Dioxide 28.4 Anion Gap 8 BUN 60 H Creatinine 2.69 H Estimated GFR 24 L Random Glucose 106 Lactic Acid Calcium 9.7 Phosphorus 5.1 H D Magnesium 3.3 H Total Bilirubin 1.2 H AST 74 H ALT 180 H Alkaline Phosphatase 78 Ammonia 25 Total Creatine Kinase Troponin I Total Protein 7.4 D Albumin 3.6 Amylase Lipase 04/11/18 04/11/18 09:25 09:25 WBC RBC Hgb Hct MCV MCH MCHC RDW Plt Count MPV Neut % (Auto) Lymph % (Auto) Norman % (Auto) Eos % (Auto) Baso % (Auto) Neut # (Auto) Lymph # (Auto) Norman # (Auto) Eos # (Auto) Baso # (Auto) WBC Differential Differential Comment Sodium Potassium Chloride Carbon Dioxide Anion Gap BUN Creatinine Estimated GFR Random Glucose Lactic Acid 1.4 Calcium Phosphorus Magnesium Total Bilirubin AST ALT Alkaline Phosphatase Ammonia Total Creatine Kinase 98 Troponin I 0.02 Total Protein Albumin Amylase 369 H Lipase 201 - Imaging Impressions Abdomen X-Ray 04/11/18 00:00 CONCLUSION: Moderate air throughout small and large bowel without evidence of pneumatosis or free air on these [address] 04/11/18 00:00 CONCLUSION: 1. Patchy nodular opacities in the right lower lobe coalescing posteriorly most consistent with an infectious etiology such as bronchopneumonia. 2. Near complete left lower lobe collapse and dense airspace consolidation in the posterior right lower lobe. Differential considerations include aspiration. 3. Coronary artery cavitations. Chest X-Ray 04/11/18 06:00 CONCLUSION: Stable exam. Support apparatus unchanged. Mild basilar airspace disease persists. Chest X-Ray 04/11/18 08:15 CONCLUSION: 1. Stable ETT and NGT. 2. Right IJ central line in good position without pneumothorax. 3. Stable mild bibasilar airspace disease. Abdomen/Pelvis CT 04/11/18 13:06 CONCLUSION: 1. Bilateral lower lobe consolidations left greater than right. Distended small and large bowel without evidence of wall thickening or obstruction. NG tube coiled within the stomach. Chest X-Ray 04/11/18 17:58 CONCLUSION: 1. Stable tubes and lines. 2. No significant pneumothorax. 3. Redemonstration of subtle right upper lobe patchy airspace disease and bilateral lower lobe pleural-parenchymal opacities. <Annamarie Srivastava - Last Filed: 04/11/18 19:40> Assessment and Plan (1) Ileus Status: Acute Code(s): K56.7 - Ileus, unspecified - Plan This patient is a 67-year-old male with past medical history significant for gastroesophageal reflux disease, hyperlipidemia and thyroid disease. Surgical history significant for inguinal hernia repair, microdiscectomy and bilateral Lasix surgery. Patient presented to [facility] emergency room on March 31, 2018. At that time, patient was post microdiscectomy on 02/13/2018, C5 through C6. According to his , 2-3 days postoperatively, patient began to not feel well. Noted shortness of breath with generalized weakness. Upon arrival to ED, patient was found to be in severe respiratory distress and was intubated. Patient presently being cared for in the intensive care setting. Orogastric tube placed for tube feedings. At this time orogastric tube attached to low intermittent wall suction. Patient unable to tolerate tube feedings for 2 days with increasing abdominal distention. CT reveals dilated loops of small and large bowel. Our service has been consulted to evaluate patient for ileus. Information comprising history of present illness obtained from patient's spouse. She endorses that patient has history of gastric reflux disease and takes Protonix 40 mg p.o. daily ,sometimes as needed. She states patient eats a regular diet and will experience occasional symptoms of acid reflux. Of note, she states patient had been taking 800 mg ibuprofen daily for neck pain prior to microdiscectomy. She states EGD and colonoscopy performed in 2016, to her recollection EGD revealed gastritis and colonoscopy which yielded benign polyp. Patient presently having loose brown stools. Orogastric tube drainage moderate amount of dark green gastric content. Ileus Transaminitis Gastroesophageal reflux disease Onset 2 days, abdominal distention. Orogastric tube with 600 mL's dark green gastric content in collection container. 04/11/2018 CT revealed the following : . Bilateral lower lobe consolidations left greater than right. Distended small and large bowel without evidence of wall thickening or obstruction. NG tube coiled within the stomach. -WBC 24.6 hemoglobin 12.4 hematocrit 37.5 -Total bilirubin 1.2 AST 74 ALT 180 alk phos 78 ammonia 25 amylase 369 Plan -N.p.o. -Orogastric tube to low intermittent wall suction -Monitor output -CBC CMP, amylase -Monitor liver function -KUB in a.m. -Stool studies -Continue PPI -Reglan 5 mg IV every 8 hours -IV hydration -Antiemetics as per attending -Bowel regimen -Supportive care -Further recommendations to follow This patient has been seen by myself and Dr. Srivastava and this note is written on his behalf - Attending Attestation Dr. Srivastava <Sammi Delgado - Last Filed: 04/11/18 15:31> (1) Ileus Status: Acute Code(s): K56.7 - Ileus, unspecified - Plan Patient was seen and examined, agree with above note, patient abdomen is softer than what it was according to the family and according to my exam, we will continue medication as above and the bowel regiment further plan depends on how the patient progress <Annamarie Srivastava - Last Filed: 04/11/18 19:40>
--- NOTE | 2018-04-11 18:01 | P.PCN ---
Date of procedure: 04/11/18 Pre-op diagnosis: Left lower lobe mucous plugging Post-op diagnosis: same Procedure: Date of procedure: 04/11/2018 Procedure: Endoscopy, diagnostic and therapeutic Indication: Left lower lobe mucous plugging Operators: Lenny Bell M.D. Details of procedure: Informed consent was obtained from . The patient was laid supine with head of bed elevated approximately 20. Patient was sedated using 5 mg midazolam and paralyzed using 50 mg rocuronium. Ventilator settings ACV 16/600/5/1 100%. I entered the 8.5 ET tube with fiberoptic bronchoscopy. The duane was sharp. Pulmonary left lower lobe large mucous plugs/white thick lavaged and continue Lukens trap and sent for sample see orders. Continue to lavage left lower lobe until clear. Mucosa was very friable. No masses. Lingula was examined with suction of thick white mucous plugs. The scope was withdrawn the duane and I entered the right upper, middle irby. These were lavaged with sterile saline with thick white mucous plugs without complication. Again the mucosa was friable. No mass. Scope was withdrawn. Saturations remained at 98 % at all times for procedure. Hemodynamically stable. Estimated blood loss: None Complications: None immediately apparent. Stat chest x-ray was ordered.
--- NOTE | 2018-04-11 18:01 | P.PN ---
Subjective Interval history: Remains intubated and was agitated last night. Had an episode of vomiting and abdominal distention. Possibly aspirated. Running a fever up to 100 degrees. Renal functions are worse. Trach secretions of brownish. Physical Exam Vital signs: Vital Signs 04/10/18 18:00 04/10/18 18:05 04/10/18 18:20 Temperature 99.5 F 99.7 F H 99.7 F H Pulse Rate 100 H 100 H 102 H Respiratory Rate 15 15 15 Blood Pressure 98/61 L 98/64 L Pulse Oximetry 94 L 95 95 04/10/18 18:35 04/10/18 18:50 04/10/18 20:00 Temperature 98.8 F 99.1 F Pulse Rate 114 H 108 H 106 H Respiratory Rate 15 15 15 Blood Pressure 112/69 Pulse Oximetry 94 L 95 93 L 04/10/18 20:05 04/10/18 20:20 04/10/18 20:35 Temperature 99.3 F 99.3 F 99.5 F Pulse Rate 106 H 108 H 110 H Respiratory Rate 15 15 15 Blood Pressure 77/52 L 106/64 125/82 Pulse Oximetry 93 L 93 L 93 L 04/10/18 20:50 04/10/18 21:00 04/10/18 21:05 Temperature 99.5 F 99.5 F 99.5 F Pulse Rate 114 H 134 H 133 H Respiratory Rate 15 15 15 Blood Pressure 118/73 151/92 H Pulse Oximetry 92 L 94 L 93 L 04/10/18 21:20 04/10/18 21:34 04/10/18 21:35 Temperature 99.5 F 99.7 F H Pulse Rate 141 H 140 H Respiratory Rate 15 16 15 Blood Pressure 170/91 H 154/89 H Pulse Oximetry 93 L 93 L 90 L 04/10/18 22:00 04/10/18 22:05 04/10/18 22:35 Temperature 99.9 F H 99.9 F H 100.2 F H Pulse Rate 133 H 121 H 81 Respiratory Rate 15 15 15 Blood Pressure 86/60 L 51/33 L Pulse Oximetry 93 L 88 L 88 L 04/10/18 22:37 04/10/18 22:46 04/10/18 23:00 Temperature 100.2 F H 100.2 F H 100.2 F H Pulse Rate 81 97 H 77 Respiratory Rate 15 15 15 Blood Pressure 74/47 L 95/49 L Pulse Oximetry 91 L 90 L 95 04/10/18 23:01 04/10/18 23:05 04/10/18 23:16 Temperature 100.2 F H 100.2 F H 100.2 F H Pulse Rate 77 78 95 H Respiratory Rate 15 15 15 Blood Pressure 54/35 L 90/59 L 92/61 L Pulse Oximetry 95 96 92 L 04/10/18 23:31 04/10/18 23:46 04/11/18 00:00 Temperature 100.2 F H 100.4 F H Pulse Rate 112 H 86 134 H Respiratory Rate 16 15 17 Blood Pressure 126/80 101/56 L Pulse Oximetry 97 94 L 91 L 04/11/18 00:01 04/11/18 00:16 04/11/18 00:21 Temperature Pulse Rate 132 H 111 H Respiratory Rate 15 15 15 Blood Pressure 116/79 78/52 L Pulse Oximetry 93 L 89 L 93 L 04/11/18 00:31 04/11/18 00:46 04/11/18 01:00 Temperature 99.0 F Pulse Rate 104 H 91 H 97 H Respiratory Rate 15 15 15 Blood Pressure 74/42 L 77/49 L Pulse Oximetry 93 L 90 L 90 L 04/11/18 01:01 04/11/18 01:16 04/11/18 01:31 Temperature 99.0 F 99.3 F 99.5 F Pulse Rate 103 H 93 H 95 H Respiratory Rate 15 15 15 Blood Pressure 77/52 L 72/51 L 74/54 L Pulse Oximetry 90 L 91 L 92 L 04/11/18 01:46 04/11/18 02:00 04/11/18 02:01 Temperature 99.5 F 99.7 F H 99.7 F H Pulse Rate 104 H 81 81 Respiratory Rate 15 15 15 Blood Pressure 98/60 L 69/51 L Pulse Oximetry 95 96 96 04/11/18 02:06 04/11/18 02:16 04/11/18 02:31 Temperature 99.7 F H 99.7 F H 99.7 F H Pulse Rate 80 83 83 Respiratory Rate 15 15 15 Blood Pressure 80/51 L 94/66 L 99/67 L Pulse Oximetry 96 97 96 04/11/18 02:46 04/11/18 03:00 04/11/18 03:01 Temperature 99.7 F H 99.7 F H 99.7 F H Pulse Rate 81 82 82 Respiratory Rate 15 15 15 Blood Pressure 99/66 L 105/58 L Pulse Oximetry 96 94 L 94 L 04/11/18 03:16 04/11/18 03:31 04/11/18 03:46 Temperature 99.7 F H 99.9 F H 100.2 F H Pulse Rate 116 H 105 H 89 Respiratory Rate 15 15 15 Blood Pressure 130/67 124/75 101/59 L Pulse Oximetry 94 L 93 L 04/11/18 04:00 04/11/18 04:01 04/11/18 04:16 Temperature 100.2 F H 100.2 F H 100.4 F H Pulse Rate 82 81 103 H Respiratory Rate 15 15 15 Blood Pressure 94/52 L 127/74 Pulse Oximetry 94 L 94 L 94 L 04/11/18 04:20 04/11/18 04:31 04/11/18 04:46 Temperature 100.2 F H 100.2 F H Pulse Rate 116 H 97 H 89 Respiratory Rate 15 15 15 Blood Pressure 111/66 103/60 Pulse Oximetry 94 L 94 L 94 L 04/11/18 05:00 04/11/18 05:01 04/11/18 05:16 Temperature 100.2 F H 100.2 F H 100.2 F H Pulse Rate 84 84 85 Respiratory Rate 15 15 15 Blood Pressure 106/59 L 105/61 Pulse Oximetry 94 L 94 L 95 04/11/18 05:31 04/11/18 05:46 04/11/18 06:00 Temperature 100.2 F H 100.2 F H 100.2 F H Pulse Rate 82 81 81 Respiratory Rate 15 15 15 Blood Pressure 105/68 105/61 Pulse Oximetry 96 96 96 04/11/18 06:01 04/11/18 08:00 04/11/18 08:02 Temperature 101.1 F H Pulse Rate 80 Respiratory Rate 15 Blood Pressure 106/60 162/86 H Pulse Oximetry 96 99 04/11/18 08:05 04/11/18 08:07 04/11/18 08:10 Temperature 101.3 F H 101.3 F H 101.3 F H Pulse Rate 96 H 94 H 89 Respiratory Rate 15 15 15 Blood Pressure 166/89 H 159/77 H 152/82 H Pulse Oximetry 98 98 98 04/11/18 08:12 04/11/18 08:15 04/11/18 08:17 Temperature 101.3 F H 101.3 F H 101.3 F H Pulse Rate 90 89 88 Respiratory Rate 15 15 15 Blood Pressure 154/86 H 155/84 H 154/89 H Pulse Oximetry 98 98 98 04/11/18 08:20 04/11/18 08:22 04/11/18 08:25 Temperature 101.3 F H 101.5 F H 101.5 F H Pulse Rate 92 H 90 85 Respiratory Rate 15 15 15 Blood Pressure 159/93 H 150/81 H 148/77 H Pulse Oximetry 98 98 98 04/11/18 08:27 04/11/18 08:30 04/11/18 08:32 Temperature 101.5 F H 101.7 F H 101.7 F H Pulse Rate 90 92 H 89 Respiratory Rate 15 15 15 Blood Pressure 145/77 H 154/84 H 156/84 H Pulse Oximetry 97 97 98 04/11/18 08:35 04/11/18 08:46 04/11/18 08:47 Temperature 101.7 F H 101.7 F H Pulse Rate 91 H 84 83 Respiratory Rate 15 15 15 Blood Pressure 154/87 H 136/77 Pulse Oximetry 97 97 97 04/11/18 09:00 04/11/18 09:02 04/11/18 09:17 Temperature 101.7 F H 101.7 F H 101.7 F H Pulse Rate 81 81 80 Respiratory Rate 15 15 15 Blood Pressure 125/74 131/62 Pulse Oximetry 96 95 93 L 04/11/18 09:32 04/11/18 09:47 04/11/18 10:00 Temperature 101.5 F H 101.5 F H 101.5 F H Pulse Rate 78 77 80 Respiratory Rate 15 15 15 Blood Pressure 128/68 141/76 H Pulse Oximetry 93 L 93 L 94 L 04/11/18 10:02 04/11/18 10:17 04/11/18 10:32 Temperature 101.5 F H 101.3 F H 100.9 F H Pulse Rate 80 86 82 Respiratory Rate 15 15 15 Blood Pressure 126/71 137/81 114/71 Pulse Oximetry 94 L 95 98 04/11/18 10:47 04/11/18 11:00 04/11/18 11:02 Temperature 100.2 F H 100.0 F H 100.0 F H Pulse Rate 77 75 75 Respiratory Rate 15 15 15 Blood Pressure 120/74 126/78 Pulse Oximetry 98 98 98 04/11/18 11:17 04/11/18 11:32 04/11/18 11:47 Temperature 99.9 F H 99.9 F H 99.7 F H Pulse Rate 74 74 74 Respiratory Rate 15 15 15 Blood Pressure 131/81 138/82 146/83 H Pulse Oximetry 98 99 99 04/11/18 12:00 04/11/18 12:01 04/11/18 12:02 Temperature 99.7 F H 99.7 F H 99.7 F H Pulse Rate 75 74 74 Respiratory Rate 15 15 15 Blood Pressure 140/84 Pulse Oximetry 98 98 98 04/11/18 12:04 04/11/18 12:17 04/11/18 12:32 Temperature 99.7 F H 99.7 F H Pulse Rate 74 74 74 Respiratory Rate 15 15 15 Blood Pressure 139/85 139/87 Pulse Oximetry 99 98 97 04/11/18 12:47 04/11/18 13:00 04/11/18 13:02 Temperature 99.7 F H 99.5 F 99.5 F Pulse Rate 72 72 72 Respiratory Rate 15 15 15 Blood Pressure 138/86 136/83 Pulse Oximetry 98 98 98 04/11/18 13:25 04/11/18 13:33 04/11/18 13:44 Temperature 99.5 F Pulse Rate 68 67 Respiratory Rate 15 11 L Blood Pressure 123/73 129/75 Pulse Oximetry 98 95 98 04/11/18 13:55 04/11/18 13:59 04/11/18 14:00 Temperature 100.2 F H 100.0 F H 100.0 F H Pulse Rate 105 H 109 H 91 H Respiratory Rate 28 H 36 H 40 H Blood Pressure 210/99 H 213/91 H Pulse Oximetry 92 L 72 L 61 L 04/11/18 14:02 04/11/18 15:00 04/11/18 16:00 Temperature 100.0 F H 99.7 F H 99.7 F H Pulse Rate 116 H 73 65 Respiratory Rate 27 H 19 15 Blood Pressure 131/63 Pulse Oximetry 96 99 99 04/11/18 16:07 04/11/18 16:15 04/11/18 16:30 Temperature 99.7 F H 99.7 F H 99.7 F H Pulse Rate 65 64 64 Respiratory Rate 15 15 15 Blood Pressure 139/78 140/81 144/82 H Pulse Oximetry 99 99 99 04/11/18 16:43 04/11/18 16:45 04/11/18 17:00 Temperature 99.7 F H 99.7 F H Pulse Rate 63 63 65 Respiratory Rate 15 15 15 Blood Pressure 145/84 H 122/69 Pulse Oximetry 99 99 99 Intake & Output 04/10/18 04/11/18 04/11/18 18:59 06:59 18:59 Intake Total 1777 / 1777 840 / 840 500 / 500 Output Total 500 / 500 935 / 935 Balance 1277 / 1277 -95 / -95 500 / 500 Weight 88.3 kg Intake: IV 1316 / 1316 500 / 500 300 / 300 Precedex Inj 1,000 MCG In NS 250 / 250 250 / 250 Inj 240 ML @ 0.2 MCG/KG/HR 4.31 mls/hr IV.CONT TITRATE PRN Rx# :[id number] Zosyn 2.25 GM Premix 2.25 gm In 50 / 50 50 ml @ 100 mls/hr IV.SIG Q6H GIGI Rx#:[id number] 1/2 Normal Saline Inj 1,000 ML 1000 / 1000 @ Wide Open IV.SIG BOLUS ONE Rx #:[id number] fentaNYL 10 mcg/mL Premix Drip 66 / 66 250 / 250 250 / 250 2,500 mcg In 250 ml @ 50 MCG/HR 5 mls/hr IV.SIG TITRATE PRN Rx #:[id number] Tube Feeding 461 / 461 220 / 220 Tube Irrigant 120 / 120 Free Water Amount 200 / 200 Output: Urine Amount (Catheter) 500 / 500 335 / 335 Indwelling Urethral Catheter 500 / 500 335 / 335 Gastric Drainage 600 / 600 Orogastric Tube 600 / 600 Other: Date of Last Bowel Movement 04/11/18 04/11/18 # Bowel Movements 1 # Incontinent Bowel Movements 1 Narrative: Patiently is currently intubated. Sedated and assisting the ventilator GENERAL: Well-built elderly white male SKIN: Warm and dry, intact, No lesions seen. HEAD: Normocephalic. EYES: No scleral icterus. No injection or drainage. Pupils are equal and reactive to light. NECK: Supple, trachea midline. No JVD or lymphadenopathy. CARDIOVASCULAR: Normal rate, normal rhythm without murmurs, gallops, or rubs. RESPIRATORY: Breath sounds equal bilaterally. Few expiratory wheezes bilaterally with occasional basal crackles. GASTROINTESTINAL: Abdomen soft, , more distended. Hypoactive bowel sounds. Neurologically he is sedated. extremities with no lesions. - Urinary Catheter Management Indwelling Urethral Catheter Cath placed during this visit: yes Reason for continuing: Hourly intake/output Insertion date: 04/10/18 Insertion time: 01:45 Results - Labs CBC & Chem 7: 04/11/18 03:13 04/11/18 03:13 Laboratory Results - last 24 hr 04/10/18 04/10/18 04/11/18 17:50 18:45 03:13 WBC 24.6 H D RBC 3.99 L Hgb 12.4 L Hct 37.5 L MCV 94.0 MCH 31.1 MCHC 33.1 RDW 14.8 Plt Count 401 MPV 9.0 Neut % (Auto) 94.0 H Lymph % (Auto) 2.1 L [place] % (Auto) 3.3 Eos % (Auto) 0.2 Baso % (Auto) 0.4 Neut # (Auto) 23.1 H Lymph # (Auto) 0.5 L [place] # (Auto) 0.8 Eos # (Auto) 0.1 Baso # (Auto) 0.1 WBC Differential . Differential Comment Auto diff final Sodium Potassium 3.7 Chloride Carbon Dioxide Anion Gap BUN Creatinine Estimated GFR Random Glucose Lactic Acid Calcium Phosphorus Magnesium Total Bilirubin AST ALT Alkaline Phosphatase [place] Total Creatine Kinase Troponin I Total Protein Albumin Amylase Lipase Urine Color Ave Urine Clarity Cloudy H Urine pH 6.0 Ur Specific [place] 1.019 Urine Protein 100 H Urine Glucose (UA) Negative Urine Ketones Negative Urine Occult Blood Large H Urine Nitrate Negative Urine Bilirubin Negative Urine Urobilinogen Less than 2 Ur Leukocyte Esterase Moderate H Urine RBC 134 H Urine WBC 156 H Urine WBC Clumps Few H Ur Squamous Epith Cells <1 Urine Bacteria Rare H Hyaline Casts 63 Urine Mucus Moderate H Micro UA Comment Cath-culture ind Ur Microscopic Review Not Reportable Urine Culture Comments Cath-cult indicated 04/11/18 04/11/18 04/11/18 03:13 03:13 09:25 WBC RBC Hgb Hct MCV MCH MCHC RDW Plt Count MPV Neut % (Auto) Lymph % (Auto) [place] % (Auto) Eos % (Auto) Baso % (Auto) Neut # (Auto) Lymph # (Auto) [place] # (Auto) Eos # (Auto) Baso # (Auto) WBC Differential Differential Comment Sodium 150 H Potassium 3.8 Chloride 114 H Carbon Dioxide 28.4 Anion Gap 8 BUN 60 H Creatinine 2.69 H Estimated GFR 24 L Random Glucose 106 Lactic Acid 1.4 Calcium 9.7 Phosphorus 5.1 H D Magnesium 3.3 H Total Bilirubin 1.2 H AST 74 H ALT 180 H Alkaline Phosphatase 78 Ammon[place] 25 Total Creatine Kinase Troponin I Total Protein 7.4 D Albumin 3.6 Amylase Lipase Urine Color Urine Clarity Urine pH Ur Specific [place] Urine Protein Urine Glucose (UA) Urine Ketones Urine Occult Blood Urine Nitrate Urine Bilirubin Urine Urobilinogen Ur Leukocyte Esterase Urine RBC Urine WBC Urine WBC Clumps Ur Squamous Epith Cells Urine Bacteria Hyaline Casts Urine Mucus Micro UA Comment Ur Microscopic Review Urine Culture Comments 04/11/18 09:25 WBC RBC Hgb Hct MCV MCH MCHC RDW Plt Count MPV Neut % (Auto) Lymph % (Auto) [place] % (Auto) Eos % (Auto) Baso % (Auto) Neut # (Auto) Lymph # (Auto) [place] # (Auto) Eos # (Auto) Baso # (Auto) WBC Differential Differential Comment Sodium Potassium Chloride Carbon Dioxide Anion Gap BUN Creatinine Estimated GFR Random Glucose Lactic Acid Calcium Phosphorus Magnesium Total Bilirubin AST ALT Alkaline Phosphatase [place] Total Creatine Kinase 98 Troponin I 0.02 Total Protein Albumin Amylase 369 H Lipase 201 Urine Color Urine Clarity Urine pH Ur Specific [place] Urine Protein Urine Glucose (UA) Urine Ketones Urine Occult Blood Urine Nitrate Urine Bilirubin Urine Urobilinogen Ur Leukocyte Esterase Urine RBC Urine WBC Urine WBC Clumps Ur Squamous Epith Cells Urine Bacteria Hyaline Casts Urine Mucus Micro UA Comment Ur Microscopic Review Urine Culture Comments Microbiology 04/11/18 09:25 Sputum - Endotracheal Gram Stain - Final 04/10/18 18:45 Sputum - Endotracheal Gram Stain - Final 04/10/18 18:45 Sputum - Endotracheal Sputum Culture - Preliminary No growth in 24 hours 04/10/18 18:45 Catheterized Urine Urine Culture - Preliminary No growth in 24 hours 04/10/18 17:45 Blood - Peripheral Aerobic Blood Culture - Preliminary No growth in 1 day 04/10/18 17:45 Blood - Peripheral Anaerobic Blood Culture - Preliminary No growth in 1 day 04/10/18 17:50 Blood - Peripheral Aerobic Blood Culture - Preliminary No growth in 1 day 04/10/18 17:50 Blood - Peripheral Anaerobic Blood Culture - Preliminary No growth in 1 day - Imaging Impressions Abdomen X-Ray 04/11/18 00:00 CONCLUSION: Moderate air throughout small and large bowel without evidence of pneumatosis or free air on these [address] 04/11/18 00:00 CONCLUSION: 1. Patchy nodular opacities in the right lower lobe coalescing posteriorly most consistent with an infectious etiology such as bronchopneumonia. 2. Near complete left lower lobe collapse and dense airspace consolidation in the posterior right lower lobe. Differential considerations include aspiration. 3. Coronary artery cavitations. Chest X-Ray 04/11/18 06:00 CONCLUSION: Stable exam. Support apparatus unchanged. Mild basilar airspace disease persists. Chest X-Ray 04/11/18 08:15 CONCLUSION: 1. Stable ETT and NGT. 2. Right IJ central line in good position without pneumothorax. 3. Stable mild bibasilar airspace disease. Abdomen/Pelvis CT 04/11/18 13:06 CONCLUSION: 1. Bilateral lower lobe consolidations left greater than right. Distended small and large bowel without evidence of wall thickening or obstruction. NG tube coiled within the stomach. Assessment and Plan - Assessment (1) Respiratory failure Code(s): J96.90 - Respiratory failure, unspecified, unspecified whether with hypoxia or hypercapnia Status: Acute (2) Atelectasis Code(s): J98.11 - Atelectasis Status: Acute (3) Neck pain, chronic Code(s): M54.2 - Cervicalgia; G89.29 - Other chronic pain Status: Chronic (4) Other cervical disc degeneration at C5-C6 level Code(s): M50.322 - Other cervical disc degeneration at C5-C6 level Status: Chronic (5) Protrusion of cervical intervertebral disc Code(s): M50.20 - Other cervical disc displacement, unspecified cervical region Status: Chronic (6) Adult failure to thrive Code(s): R62.7 - Adult failure to thrive Status: Acute (7) Shortness of breath Code(s): R06.02 - Shortness of breath Status: Acute (8) Weakness generalized Code(s): R53.1 - Weakness Status: Acute (9) Acute hyponatremia Code(s): E87.1 - Hypo-osmolality and hyponatremia Status: Acute (10) Ventilator dependent Code(s): Z99.11 - Dependence on respirator [ventilator] status Status: Acute - Plan 1 place on AC rate of 15 PEEP of 5 and FiO2 50% 2 wean FiO2 to keep sats greater than [address] chest without contrast 4. DuoNeb nebs every 6 hours as needed 5. Precedex for sedation 6. Tracheal lavage and suction as needed 7. Continue Lovenox 40 mg subcu daily 8. Continue antibiotics per ID 9. Chest x-ray CBC BMP in a.m. 10. Change ET tube to 8.5 [place] 11. PT evaluation 12. Discussed with family and patient about possible trach if he fails to wean off the ventilator.
--- NOTE | 2018-04-11 18:26 | XR ---
EXAM DATE: 04/11/2018 6:18 PM EST AGE/SEX: 67 years / Male INDICATIONS: Status post bronchoscopy. CLINICAL DATA: This is the patient's subsequent encounter. Patient reports that signs and symptoms h ave been present for 1 week and indicates a pain score of Nonresponsive. MEDICAL/SURGICAL HISTORY: . Thyroid Disease. . Microdiscectomy. Left inguinal hernia repair. COMPARISON: [facility] [place], CT CHEST W/O CONTRAST, 04/11/2018. . FINDINGS: Stable ETT, NGT and right IJ central line. No significant pneumothorax. Redemonstration of subtle rig ht upper lobe patchy airspace disease and bilateral lower lobe pleural-parenchymal opacities. Cardiac mediastinal contours are within normal limits. Remainder of the exam is unchanged. CONCLUSION: 1. Stable tubes and lines. 2. No significant pneumothorax. 3. Redemonstration of subtle right upper lobe patchy airspace disease and bilateral lower lobe pleur al-parenchymal opacities. Electronically signed by: Leo Ramirez MD Board Certified Radiologist 04/11/2018 6:25 PM EST
--- NOTE | 2018-04-11 18:27 | P.PNID ---
Subjective Remarks: events noted febrile, agitated last night dw Dr Bell + aspiration Now on low dose pressors UOP low, creatinine went up WBC 24 + CT A/P with ileus, CT chest with PNA Antibiotics: zosyn started 04/11 Allergies/Adverse Reactions: Allergies Sulfa (Sulfonamide Antibiotics) Allergy (Severe, Verified 02/15/18 05:02) Nausea also flu like symptoms Objective Vital Signs 04/10/18 18:35 04/10/18 18:50 04/10/18 20:00 Temperature 98.8 F 99.1 F Pulse Rate 114 H 108 H 106 H Respiratory Rate 15 15 15 Blood Pressure 112/69 Pulse Oximetry 94 L 95 93 L 04/10/18 20:05 04/10/18 20:20 04/10/18 20:35 Temperature 99.3 F 99.3 F 99.5 F Pulse Rate 106 H 108 H 110 H Respiratory Rate 15 15 15 Blood Pressure 77/52 L 106/64 125/82 Pulse Oximetry 93 L 93 L 93 L 04/10/18 20:50 04/10/18 21:00 04/10/18 21:05 Temperature 99.5 F 99.5 F 99.5 F Pulse Rate 114 H 134 H 133 H Respiratory Rate 15 15 15 Blood Pressure 118/73 151/92 H Pulse Oximetry 92 L 94 L 93 L 04/10/18 21:20 04/10/18 21:34 04/10/18 21:35 Temperature 99.5 F 99.7 F H Pulse Rate 141 H 140 H Respiratory Rate 15 16 15 Blood Pressure 170/91 H 154/89 H Pulse Oximetry 93 L 93 L 90 L 04/10/18 22:00 04/10/18 22:05 04/10/18 22:35 Temperature 99.9 F H 99.9 F H 100.2 F H Pulse Rate 133 H 121 H 81 Respiratory Rate 15 15 15 Blood Pressure 86/60 L 51/33 L Pulse Oximetry 93 L 88 L 88 L 04/10/18 22:37 04/10/18 22:46 04/10/18 23:00 Temperature 100.2 F H 100.2 F H 100.2 F H Pulse Rate 81 97 H 77 Respiratory Rate 15 15 15 Blood Pressure 74/47 L 95/49 L Pulse Oximetry 91 L 90 L 95 04/10/18 23:01 04/10/18 23:05 04/10/18 23:16 Temperature 100.2 F H 100.2 F H 100.2 F H Pulse Rate 77 78 95 H Respiratory Rate 15 15 15 Blood Pressure 54/35 L 90/59 L 92/61 L Pulse Oximetry 95 96 92 L 04/10/18 23:31 04/10/18 23:46 04/11/18 00:00 Temperature 100.2 F H 100.4 F H Pulse Rate 112 H 86 134 H Respiratory Rate 16 15 17 Blood Pressure 126/80 101/56 L Pulse Oximetry 97 94 L 91 L 04/11/18 00:01 04/11/18 00:16 04/11/18 00:21 Temperature Pulse Rate 132 H 111 H Respiratory Rate 15 15 15 Blood Pressure 116/79 78/52 L Pulse Oximetry 93 L 89 L 93 L 04/11/18 00:31 04/11/18 00:46 04/11/18 01:00 Temperature 99.0 F Pulse Rate 104 H 91 H 97 H Respiratory Rate 15 15 15 Blood Pressure 74/42 L 77/49 L Pulse Oximetry 93 L 90 L 90 L 04/11/18 01:01 04/11/18 01:16 04/11/18 01:31 Temperature 99.0 F 99.3 F 99.5 F Pulse Rate 103 H 93 H 95 H Respiratory Rate 15 15 15 Blood Pressure 77/52 L 72/51 L 74/54 L Pulse Oximetry 90 L 91 L 92 L 04/11/18 01:46 04/11/18 02:00 04/11/18 02:01 Temperature 99.5 F 99.7 F H 99.7 F H Pulse Rate 104 H 81 81 Respiratory Rate 15 15 15 Blood Pressure 98/60 L 69/51 L Pulse Oximetry 95 96 96 04/11/18 02:06 04/11/18 02:16 04/11/18 02:31 Temperature 99.7 F H 99.7 F H 99.7 F H Pulse Rate 80 83 83 Respiratory Rate 15 15 15 Blood Pressure 80/51 L 94/66 L 99/67 L Pulse Oximetry 96 97 96 04/11/18 02:46 04/11/18 03:00 04/11/18 03:01 Temperature 99.7 F H 99.7 F H 99.7 F H Pulse Rate 81 82 82 Respiratory Rate 15 15 15 Blood Pressure 99/66 L 105/58 L Pulse Oximetry 96 94 L 94 L 04/11/18 03:16 04/11/18 03:31 04/11/18 03:46 Temperature 99.7 F H 99.9 F H 100.2 F H Pulse Rate 116 H 105 H 89 Respiratory Rate 15 15 15 Blood Pressure 130/67 124/75 101/59 L Pulse Oximetry 94 L 93 L 04/11/18 04:00 04/11/18 04:01 04/11/18 04:16 Temperature 100.2 F H 100.2 F H 100.4 F H Pulse Rate 82 81 103 H Respiratory Rate 15 15 15 Blood Pressure 94/52 L 127/74 Pulse Oximetry 94 L 94 L 94 L 04/11/18 04:20 04/11/18 04:31 04/11/18 04:46 Temperature 100.2 F H 100.2 F H Pulse Rate 116 H 97 H 89 Respiratory Rate 15 15 15 Blood Pressure 111/66 103/60 Pulse Oximetry 94 L 94 L 94 L 04/11/18 05:00 04/11/18 05:01 04/11/18 05:16 Temperature 100.2 F H 100.2 F H 100.2 F H Pulse Rate 84 84 85 Respiratory Rate 15 15 15 Blood Pressure 106/59 L 105/61 Pulse Oximetry 94 L 94 L 95 04/11/18 05:31 04/11/18 05:46 04/11/18 06:00 Temperature 100.2 F H 100.2 F H 100.2 F H Pulse Rate 82 81 81 Respiratory Rate 15 15 15 Blood Pressure 105/68 105/61 Pulse Oximetry 96 96 96 04/11/18 06:01 04/11/18 08:00 04/11/18 08:02 Temperature 101.1 F H Pulse Rate 80 Respiratory Rate 15 Blood Pressure 106/60 162/86 H Pulse Oximetry 96 99 04/11/18 08:05 04/11/18 08:07 04/11/18 08:10 Temperature 101.3 F H 101.3 F H 101.3 F H Pulse Rate 96 H 94 H 89 Respiratory Rate 15 15 15 Blood Pressure 166/89 H 159/77 H 152/82 H Pulse Oximetry 98 98 98 04/11/18 08:12 04/11/18 08:15 04/11/18 08:17 Temperature 101.3 F H 101.3 F H 101.3 F H Pulse Rate 90 89 88 Respiratory Rate 15 15 15 Blood Pressure 154/86 H 155/84 H 154/89 H Pulse Oximetry 98 98 98 04/11/18 08:20 04/11/18 08:22 04/11/18 08:25 Temperature 101.3 F H 101.5 F H 101.5 F H Pulse Rate 92 H 90 85 Respiratory Rate 15 15 15 Blood Pressure 159/93 H 150/81 H 148/77 H Pulse Oximetry 98 98 98 04/11/18 08:27 04/11/18 08:30 04/11/18 08:32 Temperature 101.5 F H 101.7 F H 101.7 F H Pulse Rate 90 92 H 89 Respiratory Rate 15 15 15 Blood Pressure 145/77 H 154/84 H 156/84 H Pulse Oximetry 97 97 98 04/11/18 08:35 04/11/18 08:46 04/11/18 08:47 Temperature 101.7 F H 101.7 F H Pulse Rate 91 H 84 83 Respiratory Rate 15 15 15 Blood Pressure 154/87 H 136/77 Pulse Oximetry 97 97 97 04/11/18 09:00 04/11/18 09:02 04/11/18 09:17 Temperature 101.7 F H 101.7 F H 101.7 F H Pulse Rate 81 81 80 Respiratory Rate 15 15 15 Blood Pressure 125/74 131/62 Pulse Oximetry 96 95 93 L 04/11/18 09:32 04/11/18 09:47 04/11/18 10:00 Temperature 101.5 F H 101.5 F H 101.5 F H Pulse Rate 78 77 80 Respiratory Rate 15 15 15 Blood Pressure 128/68 141/76 H Pulse Oximetry 93 L 93 L 94 L 04/11/18 10:02 04/11/18 10:17 04/11/18 10:32 Temperature 101.5 F H 101.3 F H 100.9 F H Pulse Rate 80 86 82 Respiratory Rate 15 15 15 Blood Pressure 126/71 137/81 114/71 Pulse Oximetry 94 L 95 98 04/11/18 10:47 04/11/18 11:00 04/11/18 11:02 Temperature 100.2 F H 100.0 F H 100.0 F H Pulse Rate 77 75 75 Respiratory Rate 15 15 15 Blood Pressure 120/74 126/78 Pulse Oximetry 98 98 98 04/11/18 11:17 04/11/18 11:32 04/11/18 11:47 Temperature 99.9 F H 99.9 F H 99.7 F H Pulse Rate 74 74 74 Respiratory Rate 15 15 15 Blood Pressure 131/81 138/82 146/83 H Pulse Oximetry 98 99 99 04/11/18 12:00 04/11/18 12:01 04/11/18 12:02 Temperature 99.7 F H 99.7 F H 99.7 F H Pulse Rate 75 74 74 Respiratory Rate 15 15 15 Blood Pressure 140/84 Pulse Oximetry 98 98 98 04/11/18 12:04 04/11/18 12:17 04/11/18 12:32 Temperature 99.7 F H 99.7 F H Pulse Rate 74 74 74 Respiratory Rate 15 15 15 Blood Pressure 139/85 139/87 Pulse Oximetry 99 98 97 04/11/18 12:47 04/11/18 13:00 04/11/18 13:02 Temperature 99.7 F H 99.5 F 99.5 F Pulse Rate 72 72 72 Respiratory Rate 15 15 15 Blood Pressure 138/86 136/83 Pulse Oximetry 98 98 98 04/11/18 13:25 04/11/18 13:33 04/11/18 13:44 Temperature 99.5 F Pulse Rate 68 67 Respiratory Rate 15 11 L Blood Pressure 123/73 129/75 Pulse Oximetry 98 95 98 04/11/18 13:55 04/11/18 13:59 04/11/18 14:00 Temperature 100.2 F H 100.0 F H 100.0 F H Pulse Rate 105 H 109 H 91 H Respiratory Rate 28 H 36 H 40 H Blood Pressure 210/99 H 213/91 H Pulse Oximetry 92 L 72 L 61 L 04/11/18 14:02 04/11/18 15:00 04/11/18 16:00 Temperature 100.0 F H 99.7 F H 99.7 F H Pulse Rate 116 H 73 65 Respiratory Rate 27 H 19 15 Blood Pressure 131/63 Pulse Oximetry 96 99 99 04/11/18 16:07 04/11/18 16:15 04/11/18 16:30 Temperature 99.7 F H 99.7 F H 99.7 F H Pulse Rate 65 64 64 Respiratory Rate 15 15 15 Blood Pressure 139/78 140/81 144/82 H Pulse Oximetry 99 99 99 04/11/18 16:43 04/11/18 16:45 04/11/18 17:00 Temperature 99.7 F H 99.7 F H Pulse Rate 63 63 65 Respiratory Rate 15 15 15 Blood Pressure 145/84 H 122/69 Pulse Oximetry 99 99 99 04/11/18 17:15 04/11/18 17:30 04/11/18 17:38 Temperature 99.7 F H 99.7 F H 99.9 F H Pulse Rate 63 62 63 Respiratory Rate 15 15 15 Blood Pressure 123/73 122/73 123/72 Pulse Oximetry 99 99 99 04/11/18 17:41 04/11/18 17:44 04/11/18 17:47 Temperature 99.9 F H 99.9 F H 99.9 F H Pulse Rate 62 63 62 Respiratory Rate 15 15 15 Blood Pressure 119/67 123/68 117/71 Pulse Oximetry 99 99 99 04/11/18 17:50 04/11/18 17:53 04/11/18 17:56 Temperature 99.9 F H 99.9 F H 99.9 F H Pulse Rate 63 66 66 Respiratory Rate 15 15 15 Blood Pressure 125/74 134/78 123/75 Pulse Oximetry 99 100 99 04/11/18 17:59 04/11/18 18:00 04/11/18 18:02 Temperature 99.9 F H 99.9 F H 99.9 F H Pulse Rate 65 64 64 Respiratory Rate 15 15 15 Blood Pressure 123/77 123/72 Pulse Oximetry 99 99 99 04/11/18 18:04 04/11/18 18:05 Temperature 99.9 F H Pulse Rate 63 Respiratory Rate 15 Blood Pressure 122/72 Pulse Oximetry 99 Intake & Output 04/10/18 04/11/18 04/11/18 18:59 06:59 18:59 Intake Total 1777 / 1777 840 / 840 500 / 500 Output Total 500 / 500 935 / 935 Balance 1277 / 1277 -95 / -95 500 / 500 Weight 88.3 kg Intake: IV 1316 / 1316 500 / 500 300 / 300 Precedex Inj 1,000 MCG In NS 250 / 250 250 / 250 Inj 240 ML @ 0.2 MCG/KG/HR 4.31 mls/hr IV.CONT TITRATE PRN Rx# :[id number] Zosyn 2.25 GM Premix 2.25 gm In 50 / 50 50 ml @ 100 mls/hr IV.SIG Q6H GIGI Rx#:[id number] 1/2 Normal Saline Inj 1,000 ML 1000 / 1000 @ Wide Open IV.SIG BOLUS ONE Rx #:[id number] fentaNYL 10 mcg/mL Premix Drip 66 / 66 250 / 250 250 / 250 2,500 mcg In 250 ml @ 50 MCG/HR 5 mls/hr IV.SIG TITRATE PRN Rx #:[id number] Tube Feeding 461 / 461 220 / 220 Tube Irrigant 120 / 120 Free Water Amount 200 / 200 Output: Urine Amount (Catheter) 500 / 500 335 / 335 Indwelling Urethral Catheter 500 / 500 335 / 335 Gastric Drainage 600 / 600 Orogastric Tube 600 / 600 Other: Date of Last Bowel Movement 04/11/18 04/11/18 # Bowel Movements 1 # Incontinent Bowel Movements 1 04/11/18 18:00 Bronchial Washings - Left Lower Lobe Fungal Smear - Pending 04/11/18 18:00 Bronchial Washings - Left Lower Lobe Fungal Culture - Pending 04/11/18 18:00 Bronchial Washings - Left Lower Lobe Acid Fast Bacilli Smear - Pending 04/11/18 18:00 Bronchial Washings - Left Lower Lobe Mycobacterial Culture - Pending 04/11/18 18:00 Bronchial - Bronchial Gram Stain - Pending 04/11/18 18:00 Bronchial - Bronchial Bronchial Culture - Pending 04/11/18 09:25 Sputum - Endotracheal Gram Stain - Final 04/11/18 09:25 Sputum - Endotracheal Sputum Culture - Pending 04/10/18 18:45 Sputum - Endotracheal Gram Stain - Final 04/10/18 18:45 Sputum - Endotracheal Sputum Culture - Preliminary No growth in 24 hours 04/10/18 18:45 Catheterized Urine Urine Culture - Preliminary No growth in 24 hours 04/10/18 17:45 Blood - Peripheral Aerobic Blood Culture - Preliminary No growth in 1 day 04/10/18 17:45 Blood - Peripheral Anaerobic Blood Culture - Preliminary No growth in 1 day 04/10/18 17:50 Blood - Peripheral Aerobic Blood Culture - Preliminary No growth in 1 day 04/10/18 17:50 Blood - Peripheral Anaerobic Blood Culture - Preliminary No growth in 1 day Lab - Hematology Results 04/10/18 04/11/18 04:46 03:13 WBC 13.8 H 24.6 H D RBC 3.66 L 3.99 L Hgb 11.4 L 12.4 L Hct 34.7 L 37.5 L MCV 94.7 94.0 MCH 31.2 31.1 MCHC 33.0 33.1 RDW 15.2 14.8 Plt Count 343 401 MPV 8.6 9.0 Neut % (Auto) 94.0 H Lymph % (Auto) 2.1 L Crisp % (Auto) 3.3 Eos % (Auto) 0.2 Baso % (Auto) 0.4 Neut # (Auto) 23.1 H Lymph # (Auto) 0.5 L Crisp # (Auto) 0.8 Eos # (Auto) 0.1 Baso # (Auto) 0.1 WBC Differential . Differential Comment Auto diff final Lab - Chemistry Results 04/10/18 04/10/18 04/10/18 04:46 04:46 10:35 Sodium 151 H Potassium 3.4 L Chloride 115 H Carbon Dioxide 27.6 Anion Gap 8 BUN 47 H Creatinine 2.06 H Estimated GFR 32 L Random Glucose 156 H Lactic Acid Calcium 9.0 Phosphorus Magnesium Total Bilirubin 0.7 Cancelled Direct Bilirubin 0.3 H Cancelled Indirect Bilirubin 0.4 Cancelled AST 68 H Cancelled ALT 183 H Cancelled Alkaline Phosphatase 70 Cancelled Ammonia Total Creatine Kinase Troponin I Total Protein 6.8 Cancelled Albumin 3.6 D Cancelled Amylase 377 H Cancelled Lipase 276 Cancelled Cortisol 27.8 04/10/18 04/11/18 04/11/18 17:50 03:13 03:13 Sodium 150 H Potassium 3.7 3.8 Chloride 114 H Carbon Dioxide 28.4 Anion Gap 8 BUN 60 H Creatinine 2.69 H Estimated GFR 24 L Random Glucose 106 Lactic Acid Calcium 9.7 Phosphorus 5.1 H D Magnesium 3.3 H Total Bilirubin 1.2 H Direct Bilirubin Indirect Bilirubin AST 74 H ALT 180 H Alkaline Phosphatase 78 Ammonia 25 Total Creatine Kinase Troponin I Total Protein 7.4 D Albumin 3.6 Amylase Lipase Cortisol 04/11/18 04/11/18 09:25 09:25 Sodium Potassium Chloride Carbon Dioxide Anion Gap BUN Creatinine Estimated GFR Random Glucose Lactic Acid 1.4 Calcium Phosphorus Magnesium Total Bilirubin Direct Bilirubin Indirect Bilirubin AST ALT Alkaline Phosphatase Ammonia Total Creatine Kinase 98 Troponin I 0.02 Total Protein Albumin Amylase 369 H Lipase 201 Cortisol Imaging: ITS Impressions Head MRI 03/31/18 00:00 CONCLUSION: Negative exam Head CT 03/31/18 12:16 CONCLUSION: 1. Negative CT Head non contrast. . Chest CTA 03/31/18 14:39 CONCLUSION: 1. Bibasilar atelectatic changes, left greater than right. No confluent infiltrate. 2. No pulmonary embolus. 3. Atherosclerotic calcification of the coronary arteries. Cervical Spine MRI 03/31/18 16:17 CONCLUSION: 1. Status post fusion at the C5-C6 level. There is susceptibility artifact from the hardware. 2. A significant area of stenosis in the thecal sac is not seen. 3. Facet hypertrophy seen throughout with scattered areas of neural foraminal narrowing as described above. 4. The patient is intubated with fluid in the hypopharynx, laryngeal pharynx, and upper trachea around the ET tube and above the tracheal ET tube cuff. 5. The does appear to be some mild soft tissue swelling in the prevertebral region best seen on the sagittal images. Abdomen/Bladder Ultrasound 04/10/18 08:05 CONCLUSION: 1. Probable complex cyst coming off the right lower pole kidney appears smaller since 2017 CT examination of the abdomen. Abdomen X-Ray 04/11/18 00:00 CONCLUSION: Moderate air throughout small and large bowel without evidence of pneumatosis or free air on these [address] 04/11/18 00:00 CONCLUSION: 1. Patchy nodular opacities in the right lower lobe coalescing posteriorly most consistent with an infectious etiology such as bronchopneumonia. 2. Near complete left lower lobe collapse and dense airspace consolidation in the posterior right lower lobe. Differential considerations include aspiration. 3. Coronary artery cavitations. Abdomen/Pelvis CT 04/11/18 13:06 CONCLUSION: 1. Bilateral lower lobe consolidations left greater than right. Distended small and large bowel without evidence of wall thickening or obstruction. NG tube coiled within the stomach. Physical Exam: GENERAL: NAD awake, uint'd SKIN: Warm and dry. HEAD: Atraumatic. Normocephalic. EYES: Pupils equal and round. No scleral icterus. No injection or drainage. ENT: No nasal bleeding or discharge. Mucous membranes pink and moist. NECK: Trachea midline. No JVD. CARDIOVASCULAR: Regular tachycardia and gallop (?S 3) RESPIRATORY: No accessory muscle use. Few crackles to auscultation. Breath sounds equal, decreased bilaterally. GASTROINTESTINAL: Abdomen soft, non-tender, nondistended. Hepatic and splenic margins not palpable. MUSCULOSKELETAL: Extremities without clubbing, cyanosis, or edema. No obvious deformities. NEUROLOGICAL: awake and alert PSYCHIATRIC: calm Assessment and Plan - Plan C spine fusion Hypercapnia difficulty breathing developped after surgery Kleb oxytoca PNA signs of PNA resolved cliniclaly and radiologically Acute VDRF, improving fever, low grade: resolved No e/o [employer] infx New leukocytosis ARF - no obstruction on US, UOP improved p bolus per RN hypotensive episode: resolved with adjusting pressure medx Aspiration PNA Sepsis, new source likely PNA will cont zosyn add micafungin for now One dose of vanco will switch to zyvox tomorrow if sputum sugg of staph breezy RN dw Satinder Teresa @ bs
[2018-04-12] MEDS: Artificial Tears Opth Drops 15 ML Bottle EACH EYE SCH ×3 (00:13→17:26)
[2018-04-12] MEDS: Oral Hygiene Kit OROPHARYNG SCH ×5 (00:13→23:46)
[2018-04-12] MEDS: Piperacil/Tazo 2.25 GM Premix 2.25 GM/50 ML PIGGYBACK IV.SIG SCH ×4 (01:48→20:30)
[2018-04-12 04:41] LABS: Baso % (Auto) 0.2 % (0.0-2.0); Eos # (Auto) 0.1 th/mm3 (0.0-0.4); Eos % (Auto) 0.5 % (0.0-4.0); Hematocrit 32.5 % (39.0-51.0); Hemoglobin 10.9 gm/dL (13.0-17.0); Lymph # (Auto) 0.8 th/mm3 (1.0-4.8); Lymph % (Auto) 3.7 % (9.0-44.0); Mean Corpuscular HGB Conc 33.4 % (32.0-36.0); Mean Corpuscular Hemoglobin 31.3 pg (27.0-34.0); Mean Corpuscular Volume 93.7 fL (80.0-100.0); Mean Platelet Volume 8.6 fL (7.0-11.0); Mono # (Auto) 0.8 th/mm3 (0.0-0.9); Mono % (Auto) 3.8 % (0.0-8.0); Neut # (Auto) 19.1 th/mm3 (1.8-7.7); Neut % (Auto) 91.8 % (16.0-70.0); Platelet Count 282 th/mm3 (150-450); Red Blood Count 3.47 mil/mm3 (4.50-5.90); Red Cell Distribution Width 15.2 % (11.6-17.2); White Blood Count 20.8 th/mm3 (4.0-11.0)
--- NOTE | 2018-04-12 04:48 | XR ---
EXAM DATE: 04/12/2018 4:29 AM EST AGE/SEX: 67 years / Male INDICATIONS: Respiratory failure. CLINICAL DATA: This is the patient's subsequent encounter. Patient reports that signs and symptoms h ave been present for 1 week and indicates a pain score of Nonresponsive. MEDICAL/SURGICAL HISTORY: . Thyroid Disease. . Microdiscectomy. Left inguinal hernia repair. [place] [facility] [place]. . FINDINGS: Endotracheal tube in good position. NG coiled in the stomach. Right central line in superior vena cav a. Basilar airspace consolidation similar to April 11. No pneumothorax. CONCLUSION: Support apparatus in good position. Basilar airspace consolidation in the lungs. Electronically signed by: Howard Cook MD Board Certified Radiologist 04/12/2018 4:46 AM EST
[2018-04-12 04:53] LABS: INR 1.1 Ratio; Prothrombin Time 11.6 sec (9.8-11.6)
--- NOTE | 2018-04-12 04:53 | XR ---
EXAM DATE: 04/12/2018 4:28 AM EST AGE/SEX: 67 years / Male INDICATIONS: Ileus. CLINICAL DATA: This is the patient's subsequent encounter. Patient reports that signs and symptoms h ave been present for 1 week and indicates a pain score of Nonresponsive. MEDICAL/SURGICAL HISTORY: . Thyroid Disease. . Microdiscectomy. Left inguinal hernia repair. COMPARISON: [facility] [place]/09/2018. . FINDINGS: NG is coiled in stomach. There is gaseous distention of bowel with right colon distended up to 11 cm in diameter similar to prior exam from April 09. No free air identified. CONCLUSION: NG coiled in stomach. Persistent gaseous distention of bowel with proximal right colon measuring just over 11 cm in diameter. This is similar to prior exam. Electronically signed by: Howard Cook MD Board Certified Radiologist 04/12/2018 4:52 AM EST
[2018-04-12 05:20] LABS: Alanine Aminotransferase 127 U/L (12-78); Albumin 2.7 g/dL (3.4-5.0); Alkaline Phosphatase 68 U/L (45-117); Anion Gap 6 meq/L (5-15); Aspartate Aminotransferase 46 U/L (15-37); Blood Urea Nitrogen 44 mg/dL (7-18); Calcium 8.8 mg/dL (8.5-10.1); Carbon Dioxide 28.9 meq/L (21.0-32.0); Chloride 116 meq/L (98-107); Glomerular Filtration Rate 53 mL/min (>89); Glucose,Random 132 mg/dL (74-106); Magnesium 2.6 mg/dL (1.5-2.5); Phosphorus 3.2 mg/dL (2.5-4.9); Potassium 3.4 meq/L (3.5-5.1); Sodium 151 meq/L (136-145); Total Protein 6.3 g/dL (6.4-8.2)
[2018-04-12 05:21] LABS: Amylase 177 U/L (25-115)
[2018-04-12] MEDS: Levothyroxine 125 MCG Tablet PO SCH (05:21)
[2018-04-12] MEDS: Acetaminophen 325 MG Tablet PO PRN (05:21)
[2018-04-12] MEDS: Dexmedetomidine Inj 1,000 MCG in Sodium Chlor 0.9% Inj 240 ML IV.CONT PRN ×2 (05:22→18:15)
[2018-04-12] MEDS ORDERED: Potassium Chlor 40 mEq Premix 40 MEQ/100 ML PIGGYBACK IV.SIG PRN (06:15)
[2018-04-12] MEDS ORDERED: Magnesium Oxide 400 MG Tablet PO PRN (06:15)
[2018-04-12] MEDS ORDERED: Sodium Phosphate Inj 30 MMOL in Sodium Chlor 0.9% Inj 250 ML IV.SIG PRN (06:15)
[2018-04-12] MEDS ORDERED: Magnesium Sulfate Inj 2 GM in Sodium Chlor 0.9% Inj 96 ML IV.SIG PRN (06:15)
[2018-04-12] MEDS ORDERED: Potassium Chlor 20 mEq Premix 20 MEQ/100 ML PIGGYBACK IV.SIG PRN (06:15)
[2018-04-12] MEDS ORDERED: Magnesium Sulfate Inj 4 GM in Sodium Chlor 0.9% Inj 92 ML IV.SIG PRN (06:15)
[2018-04-12] MEDS ORDERED: Potassium Phosphate 500 MG Soluble Tablet PO PRN (06:15)
--- NOTE | 2018-04-12 07:14 | P.PNNEU ---
Subjective Active Medications: Active Medications Acetaminophen (Tylenol) 650 mg PO Q6H PRN PRN Reason: Temp > 100.4 Last Admin: 04/12/18 05:21 Dose: 650 mg Albuterol (Duoneb Neb (Je)) 1 ampul NEB Q4HR NEB [facility] Last Admin: 04/12/18 04:57 Dose: 1 ampul Albuterol (Albuterol Neb (Prn)) 2.5 mg NEB Q2HR NEB PRN PRN Reason: DYSPNEA Artificial Tears (Tears Naturale Opth Drops) 1 drop EACH EYE Q8H [facility] Last Admin: 04/12/18 00:13 Dose: 1 drop Aspirin (Aspirin Chew) 81 mg PO DAILY [facility] Last Admin: 04/11/18 09:30 Dose: 81 mg Chlorhexidine Gluconate (Peridex 0.12% Oral Kit) 15 ml OROPHARYNG BID@0800, 2000 [facility] Last Admin: 04/11/18 20:51 Dose: 15 ml Enoxaparin Sodium (Lovenox Inj) 40 mg SQ DAILY [facility] Last Admin: 04/11/18 09:28 Dose: 40 mg Midazolam HCl (Versed Inj) 100 mg in 100 mls @ 2 mls/hr IV.CONT TITRATE PRN; Protocol PRN Reason: See protocol Last Titration: 04/11/18 15:30 Dose: 0 mg/hr, 0 mls/hr Dexmedetomidine HCl 1,000 mcg/ (Sodium Chloride) 250 mls @ 4.31 mls/hr IV.CONT TITRATE PRN; Protocol PRN Reason: Per Protocol Last Admin: 04/12/18 05:22 Dose: 1 mcg/kg/hr, 21.57 mls/hr Phenylephrine HCl 160 mg/ (Sodium Chloride) 500 mls @ 7.5 mls/hr IV.CONT TITRATE PRN; Protocol PRN Reason: Per Protocol Last Titration: 04/12/18 06:10 Dose: 30 mcg/min, 5.62 mls/hr Piperacillin/Tazobactam/Dextrose (Zosyn 2.25 Gm Premix) 2.25 gm in 50 mls @ 100 mls/hr IV.SIG Q6H [facility] Last Infusion: 04/12/18 02:10 Dose: Infused Dextrose/Sodium Chloride (D5w/1/2 Ns Inj) 1,000 mls @ 84 mls/hr IV.CONT .[id number] [facility] Last Admin: 04/11/18 22:37 Dose: 84 mls/hr Micafungin Sodium 150 mg/ (Sodium Chloride) 100 mls @ 100 mls/hr IV.SIG Q24H [facility] Last Infusion: 04/11/18 19:00 Dose: Infused Magnesium Sulfate 4 gm/ Sodium (Chloride) 100 mls @ 50 mls/hr IV.SIG UNSCH PRN PRN Reason: For Magnesium 0.9 - 1.1 mg/dL Potassium Chloride (Kcl 40 Meq Premix Inj) 40 meq in 100 mls @ 25 mls/hr IV.SIG Q2H PRN PRN Reason: For Potassium 2.8 - 3.2 mEq/L Potassium Chloride (Kcl 20 Meq Premix Inj) 20 meq in 100 mls @ 50 mls/hr IV.SIG Q2H PRN PRN Reason: For Potassium 3.3 - 3.5 mEq/L Potassium Chloride (Kcl 40 Meq Premix Inj) 40 meq in 100 mls @ 25 mls/hr IV.SIG UNSCH PRN PRN Reason: For Potassium 3.3 - 3.5 mEq/L Last Admin: 04/12/18 06:35 Dose: 25 mls/hr Potassium Chloride (Kcl 20 Meq Premix Inj) 20 meq in 100 mls @ 50 mls/hr IV.SIG Q2H PRN PRN Reason: For Potassium 2.8 - 3.2 mEq/L Potassium Phosphate 30 mmol/ (Sodium Chloride) 260 mls @ 42 mls/hr IV.SIG UNSCH PRN PRN Reason: SEE LABEL COMMENTS Magnesium Sulfate 2 gm/ Sodium (Chloride) 100 mls @ 50 mls/hr IV.SIG UNSCH PRN PRN Reason: For Magnesium 1.2 - 1.6 mg/dL Sodium Phosphate 30 mmol/ (Sodium Chloride) 260 mls @ 42 mls/hr IV.SIG UNSCH PRN PRN Reason: For Phosphorus < 2.5 mg/dL Labetalol HCl (Trandate Inj) 20 mg IV.PUSH Q1H PRN PRN Reason: SBP > 160 Lactulose (Lactulose Liq) 30 ml PO TID [facility] Last Admin: 04/11/18 18:45 Dose: Not Given Lansoprazole (Prevacid Solutab) 30 mg NG/OG DAILY [facility] Last Admin: 04/11/18 09:30 Dose: 30 mg Levothyroxine Sodium (Synthroid) 125 mcg PO DAILY@0600 [facility] Last Admin: 04/12/18 05:21 Dose: 125 mcg Magnesium Oxide (Mag-Ox) 800 mg PO UNSCH PRN PRN Reason: For Magnesium 1.2 - 1.6 mg/dL Metoclopramide HCl (Reglan Inj) 5 mg IV.PUSH Q8HR [facility]; Protocol Last Admin: 04/12/18 05:21 Dose: 5 mg Miscellaneous Medication () 1 each OROPHARYNG 0000,0400,1200,1600 [facility] Last Admin: 04/12/18 04:17 Dose: 1 each Ondansetron HCl (Zofran Inj) 4 mg IV.PUSH Q4H PRN PRN Reason: NAUSEA OR VOMITING Polyethylene Glycol (Miralax) 17 gm PO BID [facility] Last Admin: 04/11/18 21:00 Dose: Not Given Potassium Chloride (Kcl Liq) 40 meq PO UNSCH PRN PRN Reason: Potassium level 3.3-3.5 mEq/L Potassium Chloride (Kcl Liq) 40 meq PO UNSCH PRN PRN Reason: Potassium level 3.3-3.5 mEq/L Potassium Phosphate (K-Phos Original) 2,000 mg PO Q4H PRN PRN Reason: Phosphorus Less Than 2.5 mg/dL Potassium Phosphate (K-Phos Original) 2,000 mg PO UNSCH PRN PRN Reason: SEE LABEL COMMENTS Pravastatin Sodium (Pravachol) 40 mg PO HS [facility] Last Admin: 04/11/18 20:51 Dose: 40 mg Senna/Docusate Sodium (Celine-Colace) 1 tab PO BID [facility] Last Admin: 04/11/18 21:00 Dose: Not Given Sodium Chloride (Ns Flush) 2 ml IV.FLUSH BID [facility] Last Admin: 04/11/18 20:51 Dose: 2 ml Sodium Chloride (Ns Flush) 2 ml IV.FLUSH PRN PRN PRN Reason: FLUSH AFTER USING IV ACCESS Sodium Chloride (Ns Flush) 0 ml IV.FLUSH DAILY [facility] Last Admin: 04/11/18 09:32 Dose: 10 ml Sterile Water (Free Water) 200 ml NG/OG Q6HR [facility] Last Admin: 04/12/18 05:24 Dose: 200 ml Terbutaline Sulfate (Brethine Inj) 1 mg SQ UNSCH PRN PRN Reason: For Extravasation Allergies/Adverse Reactions: Allergies Allergy/AdvReac Type Severity Reaction Status Date / Time Sulfa (Sulfonamide Allergy Severe Nausea Verified 02/15/18 05:02 Antibiotics) Physical Exam Vital signs: Vital Signs 04/11/18 08:00 04/11/18 08:02 04/11/18 08:05 Temperature 101.3 F H Pulse Rate 96 H Respiratory Rate 15 Blood Pressure 162/86 H 166/89 H Pulse Oximetry 99 98 04/11/18 08:07 04/11/18 08:10 04/11/18 08:12 Temperature 101.3 F H 101.3 F H 101.3 F H Pulse Rate 94 H 89 90 Respiratory Rate 15 15 15 Blood Pressure 159/77 H 152/82 H 154/86 H Pulse Oximetry 98 98 98 04/11/18 08:15 04/11/18 08:17 04/11/18 08:20 Temperature 101.3 F H 101.3 F H 101.3 F H Pulse Rate 89 88 92 H Respiratory Rate 15 15 15 Blood Pressure 155/84 H 154/89 H 159/93 H Pulse Oximetry 98 98 98 04/11/18 08:22 04/11/18 08:25 04/11/18 08:27 Temperature 101.5 F H 101.5 F H 101.5 F H Pulse Rate 90 85 90 Respiratory Rate 15 15 15 Blood Pressure 150/81 H 148/77 H 145/77 H Pulse Oximetry 98 98 97 04/11/18 08:30 04/11/18 08:32 04/11/18 08:35 Temperature 101.7 F H 101.7 F H 101.7 F H Pulse Rate 92 H 89 91 H Respiratory Rate 15 15 15 Blood Pressure 154/84 H 156/84 H 154/87 H Pulse Oximetry 97 98 97 04/11/18 08:46 04/11/18 08:47 04/11/18 09:00 Temperature 101.7 F H 101.7 F H Pulse Rate 84 83 81 Respiratory Rate 15 15 15 Blood Pressure 136/77 Pulse Oximetry 97 97 96 04/11/18 09:02 04/11/18 09:17 04/11/18 09:32 Temperature 101.7 F H 101.7 F H 101.5 F H Pulse Rate 81 80 78 Respiratory Rate 15 15 15 Blood Pressure 125/74 131/62 128/68 Pulse Oximetry 95 93 L 93 L 04/11/18 09:47 04/11/18 10:00 04/11/18 10:02 Temperature 101.5 F H 101.5 F H 101.5 F H Pulse Rate 77 80 80 Respiratory Rate 15 15 15 Blood Pressure 141/76 H 126/71 Pulse Oximetry 93 L 94 L 94 L 04/11/18 10:17 04/11/18 10:32 04/11/18 10:47 Temperature 101.3 F H 100.9 F H 100.2 F H Pulse Rate 86 82 77 Respiratory Rate 15 15 15 Blood Pressure 137/81 114/71 120/74 Pulse Oximetry 95 98 98 04/11/18 11:00 04/11/18 11:02 04/11/18 11:17 Temperature 100.0 F H 100.0 F H 99.9 F H Pulse Rate 75 75 74 Respiratory Rate 15 15 15 Blood Pressure 126/78 131/81 Pulse Oximetry 98 98 98 04/11/18 11:32 04/11/18 11:47 04/11/18 12:00 Temperature 99.9 F H 99.7 F H 99.7 F H Pulse Rate 74 74 75 Respiratory Rate 15 15 15 Blood Pressure 138/82 146/83 H Pulse Oximetry 99 99 98 04/11/18 12:01 04/11/18 12:02 04/11/18 12:04 Temperature 99.7 F H 99.7 F H Pulse Rate 74 74 74 Respiratory Rate 15 15 15 Blood Pressure 140/84 Pulse Oximetry 98 98 99 04/11/18 12:17 04/11/18 12:32 04/11/18 12:47 Temperature 99.7 F H 99.7 F H 99.7 F H Pulse Rate 74 74 72 Respiratory Rate 15 15 15 Blood Pressure 139/85 139/87 138/86 Pulse Oximetry 98 97 98 04/11/18 13:00 04/11/18 13:02 04/11/18 13:25 Temperature 99.5 F 99.5 F Pulse Rate 72 72 Respiratory Rate 15 15 Blood Pressure 136/83 Pulse Oximetry 98 98 98 04/11/18 13:33 04/11/18 13:44 04/11/18 13:55 Temperature 99.5 F 100.2 F H Pulse Rate 68 67 105 H Respiratory Rate 15 11 L 28 H Blood Pressure 123/73 129/75 210/99 H Pulse Oximetry 95 98 92 L 04/11/18 13:59 04/11/18 14:00 04/11/18 14:02 Temperature 100.0 F H 100.0 F H 100.0 F H Pulse Rate 109 H 91 H 116 H Respiratory Rate 36 H 40 H 27 H Blood Pressure 213/91 H 131/63 Pulse Oximetry 72 L 61 L 96 04/11/18 15:00 04/11/18 16:00 04/11/18 16:07 Temperature 99.7 F H 99.7 F H 99.7 F H Pulse Rate 73 65 65 Respiratory Rate 19 15 15 Blood Pressure 139/78 Pulse Oximetry 99 99 99 04/11/18 16:15 04/11/18 16:30 04/11/18 16:43 Temperature 99.7 F H 99.7 F H Pulse Rate 64 64 63 Respiratory Rate 15 15 15 Blood Pressure 140/81 144/82 H Pulse Oximetry 99 99 99 04/11/18 16:45 04/11/18 17:00 04/11/18 17:15 Temperature 99.7 F H 99.7 F H 99.7 F H Pulse Rate 63 65 63 Respiratory Rate 15 15 15 Blood Pressure 145/84 H 122/69 123/73 Pulse Oximetry 99 99 99 04/11/18 17:30 04/11/18 17:38 04/11/18 17:41 Temperature 99.7 F H 99.9 F H 99.9 F H Pulse Rate 62 63 62 Respiratory Rate 15 15 15 Blood Pressure 122/73 123/72 119/67 Pulse Oximetry 99 99 99 04/11/18 17:44 04/11/18 17:47 04/11/18 17:50 Temperature 99.9 F H 99.9 F H 99.9 F H Pulse Rate 63 62 63 Respiratory Rate 15 15 15 Blood Pressure 123/68 117/71 125/74 Pulse Oximetry 99 99 99 04/11/18 17:53 04/11/18 17:56 04/11/18 17:59 Temperature 99.9 F H 99.9 F H 99.9 F H Pulse Rate 66 66 65 Respiratory Rate 15 15 15 Blood Pressure 134/78 123/75 123/77 Pulse Oximetry 100 99 99 04/11/18 18:00 04/11/18 18:02 04/11/18 18:04 Temperature 99.9 F H 99.9 F H 99.9 F H Pulse Rate 64 64 63 Respiratory Rate 15 15 15 Blood Pressure 123/72 Pulse Oximetry 99 99 99 04/11/18 18:05 04/11/18 19:17 04/11/18 19:20 Temperature 100.0 F H Pulse Rate 59 L 59 L Respiratory Rate 15 15 Blood Pressure 122/72 117/75 Pulse Oximetry 99 99 04/11/18 19:23 04/11/18 19:26 04/11/18 19:29 Temperature 100.0 F H 100.0 F H 100.0 F H Pulse Rate 59 L 59 L 59 L Respiratory Rate 15 15 15 Blood Pressure 123/78 125/74 123/77 Pulse Oximetry 99 99 99 04/11/18 19:32 04/11/18 19:35 04/11/18 19:38 Temperature 100.2 F H 100.2 F H 100.2 F H Pulse Rate 59 L 59 L 59 L Respiratory Rate 15 15 15 Blood Pressure 125/74 127/70 110/68 Pulse Oximetry 99 99 99 04/11/18 19:41 04/11/18 19:44 04/11/18 19:47 Temperature 100.2 F H 100.2 F H 100.2 F H Pulse Rate 59 L 60 60 Respiratory Rate 15 15 15 Blood Pressure 115/73 119/74 117/73 Pulse Oximetry 99 99 99 04/11/18 19:50 04/11/18 19:53 04/11/18 19:55 Temperature 100.2 F H 100.2 F H Pulse Rate 59 L 59 L 60 Respiratory Rate 15 15 15 Blood Pressure 122/75 116/72 Pulse Oximetry 99 99 99 04/11/18 19:56 04/11/18 19:59 04/11/18 20:00 Temperature 100.2 F H 100.2 F H 100.2 F H Pulse Rate 60 62 65 Respiratory Rate 15 16 15 Blood Pressure 122/70 121/70 Pulse Oximetry 99 99 99 04/11/18 20:15 04/11/18 20:30 04/11/18 20:45 Temperature 100.2 F H 100.2 F H 100.4 F H Pulse Rate 64 74 71 Respiratory Rate 15 15 15 Blood Pressure 115/69 116/74 115/67 Pulse Oximetry 99 99 99 04/11/18 21:00 04/11/18 21:15 04/11/18 21:30 Temperature 100.4 F H 100.6 F H 100.6 F H Pulse Rate 69 70 65 Respiratory Rate 15 15 15 Blood Pressure 120/68 110/68 102/62 Pulse Oximetry 99 99 99 04/11/18 21:45 04/11/18 22:00 04/11/18 22:10 Temperature 100.8 F H 100.9 F H Pulse Rate 64 68 67 Respiratory Rate 15 15 Blood Pressure 98/60 L 115/68 Pulse Oximetry 99 99 04/11/18 22:15 04/11/18 22:29 04/11/18 22:30 Temperature 100.9 F H 100.9 F H 100.9 F H Pulse Rate 67 70 69 Respiratory Rate 15 15 15 Blood Pressure 117/66 118/70 Pulse Oximetry 99 99 99 04/11/18 22:45 04/11/18 23:00 04/11/18 23:15 Temperature 101.1 F H 101.1 F H 101.1 F H Pulse Rate 71 66 63 Respiratory Rate 15 15 15 Blood Pressure 129/75 115/69 111/64 Pulse Oximetry 99 99 99 04/11/18 23:30 04/11/18 23:45 04/12/18 00:00 Temperature 101.3 F H 101.3 F H 101.3 F H Pulse Rate 62 63 66 Respiratory Rate 15 15 15 Blood Pressure 112/66 111/67 113/71 Pulse Oximetry 99 99 99 04/12/18 00:15 04/12/18 00:30 04/12/18 00:45 Temperature 101.1 F H 100.9 F H Pulse Rate 65 69 81 Respiratory Rate 15 15 18 Blood Pressure 117/70 114/71 134/70 Pulse Oximetry 99 99 96 04/12/18 01:00 04/12/18 01:15 04/12/18 01:30 Temperature 100.9 F H 100.8 F H 100.8 F H Pulse Rate 76 75 75 Respiratory Rate 15 15 15 Blood Pressure 112/63 132/73 124/75 Pulse Oximetry 95 97 97 04/12/18 01:45 04/12/18 02:00 04/12/18 02:15 Temperature Pulse Rate 71 71 70 Respiratory Rate 15 15 15 Blood Pressure 123/72 122/69 118/68 Pulse Oximetry 97 97 97 04/12/18 02:30 04/12/18 02:45 04/12/18 03:00 Temperature Pulse Rate 69 68 68 Respiratory Rate 15 15 15 Blood Pressure 121/71 122/73 122/72 Pulse Oximetry 97 98 98 04/12/18 03:15 04/12/18 03:30 04/12/18 03:45 Temperature Pulse Rate 71 67 68 Respiratory Rate 15 15 15 Blood Pressure 126/76 125/74 126/73 Pulse Oximetry 97 99 99 04/12/18 04:00 04/12/18 04:10 04/12/18 04:15 Temperature 100.8 F H Pulse Rate 67 69 69 Respiratory Rate 15 15 Blood Pressure 125/76 131/80 Pulse Oximetry 99 100 04/12/18 04:30 04/12/18 04:45 04/12/18 04:57 Temperature Pulse Rate 67 68 67 Respiratory Rate 15 15 15 Blood Pressure 136/80 121/70 Pulse Oximetry 99 98 97 04/12/18 05:00 04/12/18 06:00 Temperature Pulse Rate 70 68 Respiratory Rate 15 Blood Pressure 131/72 Pulse Oximetry 100 Intake & Output 04/11/18 04/12/18 04/12/18 18:59 06:59 18:59 Intake Total 1350 / 1350 2815 / 2815 Output Total 1175 / 1175 750 / 750 Balance 175 / 175 2065 / 2065 Weight 85.8 kg Intake: IV 550 / 550 2014 Precedex Inj 1,000 MCG In NS 250 / 250 250 / 250 Inj 240 ML @ 0.2 MCG/KG/HR 4.31 mls/hr IV.CONT TITRATE PRN Rx# :[id number] D5W/1/2 NS Inj 1,000 ML @ 84 1000 / 1000 mls/hr IV.CONT .[id number] JE Rx# :[id number] Mycamine Inj 150 MG In NS Inj 100 / 100 100 ML @ 100 mls/hr IV.SIG Q24H [facility] Rx#:[id number] Zosyn 2.25 GM Premix 2.25 gm In 50 / 50 150 / 150 50 ml @ 100 mls/hr IV.SIG Q6H [facility] Rx#:[id number] Vancomycin Inj 1,500 MG In NS 515 / 515 Inj 500 ML @ 250 mls/hr IV.SIG ONCE ONE Rx#:[id number] fentaNYL 10 mcg/mL Premix Drip 250 / 250 2,500 mcg In 250 ml @ 50 MCG/HR 5 mls/hr IV.SIG TITRATE PRN Rx #:[id number] Tube Feeding 0 / 0 Water Bolus Amount 400 / 400 400 / 400 Free Water Amount 400 / 400 400 / 400 Output: Urine Amount (Catheter) 1175 / 1175 700 / 700 Indwelling Urethral Catheter 1175 / 1175 700 / 700 Gastric Drainage 50 / 50 Orogastric Tube 50 / 50 Other: Date of Last Bowel Movement 04/11/18 04/12/18 # Incontinent Bowel Movements 3 1 Narrative: follows all commands 5/5 all 4 ext - Urinary Catheter Management Indwelling Urethral Catheter Cath placed during this visit: yes Reason for continuing: Hourly intake/output Insertion date: 04/10/18 Insertion time: 01:45 Objective Laboratory Results - last 24 hr 04/05/18 04/11/18 04/11/18 10:36 09:25 09:25 WBC RBC Hgb Hct MCV MCH MCHC RDW Plt Count MPV Neut % (Auto) Lymph % (Auto) [place] % (Auto) Eos % (Auto) Baso % (Auto) Neut # (Auto) Lymph # (Auto) [place] # (Auto) Eos # (Auto) Baso # (Auto) WBC Differential Differential Comment PT INR Sodium Potassium Chloride Carbon Dioxide Anion Gap BUN Creatinine Estimated GFR Random Glucose Lactic Acid 1.4 Calcium Phosphorus Magnesium Total Bilirubin AST ALT Alkaline Phosphatase Ammonia Total Creatine Kinase 98 Troponin I 0.02 Total Protein Albumin Amylase 369 H Lipase 201 BAL Total Volume BAL RBC BAL Nucleated BAL Neutrophils BAL White & Oth Cells BAL Diff Comment Stl C.difficile DNA Amp St C. diff Tox Epid 027 Acetylchol Rcpt Bind Ab Less than 0.30 04/11/18 04/12/18 04/12/18 18:00 00:50 04:25 WBC RBC Hgb Hct MCV MCH MCHC RDW Plt Count MPV Neut % (Auto) Lymph % (Auto) [place] % (Auto) Eos % (Auto) Baso % (Auto) Neut # (Auto) Lymph # (Auto) [place] # (Auto) Eos # (Auto) Baso # (Auto) WBC Differential Differential Comment PT INR Sodium 151 H Potassium 3.4 L Chloride 116 H Carbon Dioxide 28.9 Anion Gap 6 BUN 44 H Creatinine 1.35 H Estimated GFR 53 L Random Glucose 132 H Lactic Acid Calcium 8.8 D Phosphorus 3.2 D Magnesium 2.6 H D Total Bilirubin 1.1 H AST 46 H ALT 127 H Alkaline Phosphatase 68 Ammonia Total Creatine Kinase Troponin I Total Protein 6.3 L D Albumin 2.7 L D Amylase 177 H Lipase BAL Total Volume 23.0 BAL RBC 450 BAL Nucleated 403.650 H BAL Neutrophils Not Reportable BAL White & Oth Cells [id number] BAL Diff Comment Stl C.difficile DNA Amp Negative St C. diff Tox Epid 027 Negative Acetylchol Rcpt Bind Ab 04/12/18 04/12/18 04/12/18 04:25 04:25 04:25 WBC 20.8 H RBC 3.47 L Hgb 10.9 L Hct 32.5 L MCV 93.7 MCH 31.3 MCHC 33.4 RDW 15.2 Plt Count 282 MPV 8.6 Neut % (Auto) 91.8 H Lymph % (Auto) 3.7 L [place] % (Auto) 3.8 Eos % (Auto) 0.5 Baso % (Auto) 0.2 Neut # (Auto) 19.1 H Lymph # (Auto) 0.8 L [place] # (Auto) 0.8 Eos # (Auto) 0.1 Baso # (Auto) 0.0 WBC Differential . Differential Comment Auto diff final PT 11.6 INR 1.1 Sodium Potassium Chloride Carbon Dioxide Anion Gap BUN Creatinine Estimated GFR Random Glucose Lactic Acid Calcium Phosphorus Magnesium Total Bilirubin AST ALT Alkaline Phosphatase Ammonia 27 Total Creatine Kinase Troponin I Total Protein Albumin Amylase Lipase BAL Total Volume BAL RBC BAL Nucleated BAL Neutrophils BAL White & Oth Cells BAL Diff Comment Stl C.difficile DNA Amp St C. diff Tox Epid 027 Acetylchol Rcpt Bind Ab Microbiology 04/11/18 09:25 Gram Stain - Final Sputum - Endotracheal 04/10/18 18:45 Gram Stain - Final Sputum - Endotracheal Sputum Culture - Preliminary No growth in 24 hours 04/10/18 18:45 Urine Culture - Preliminary Catheterized Urine No growth in 24 hours 04/10/18 17:45 Aerobic Blood Culture - Preliminary Blood - Peripheral No growth in 1 day Anaerobic Blood Culture - Preliminary No growth in 1 day 04/10/18 17:50 Aerobic Blood Culture - Preliminary Blood - Peripheral No growth in 1 day Anaerobic Blood Culture - Preliminary No growth in 1 day Review/Management - Review/Management Plan: Encephalopathy Likely secondary to respiratory failure, hypoxia, metabolic etiology Respiratory failure - Lactic acidosis - Hyperammonemia - Leukocytosis - Neuro checks Q1h - MRI brain and head CT scan was unremarkable for an acute intracranial abnormality - Will reassess after patient he is off sedation. - CSF analysis is unremarkable, pending culture and HSV PCR results - EEG with evidence of encephalopathy, no epileptiform discharges or electrographic seizure activity - I met with family members and discussed the current neurologic status - There is no indication to start AEDs. -DVT prophylaxis - GI prophylaxis - Neurology will follow up. - Dr. Farias will follow up on Tuesday04/03/2018. - Please call for questions 04/03/18 met encep mri LP eeg neg labs neg my hope is off sedatives he should do fine no hx dementia nor pd acc to daughters labs ordered few more 04/04/18 much better ok to dc sedatives neurowise recheck abg still some jerking can recheck eeg when off vent 04/05/18 no jerks now looks well neuro abdalla i dw med team have pulm see check mg labs and consider sniff test if think diaphragm involved 04/07/18 occ jerk acc to nurse still some co2 retaining consider theophylline for resp drive? sniff test? mg lab still pend stable neuro 04/08/18 one mg lab neg toher pend no change neurowise tired out after 6 hours stable neuro 04/12/18 mg labs neg intact neuro will signoff
[2018-04-12] MEDS: Senna/Docusate Sodium 8.6/50 MG Tablet PO SCH ×2 (08:31→20:30)
[2018-04-12] MEDS: Enoxaparin Inj 40 MG/0.4 ML Syringe SQ SCH (08:31)
[2018-04-12] MEDS: Polyethylene Glycol 3350 17 GM Packet PO SCH ×2 (08:32→20:31)
[2018-04-12] MEDS: Chlorhexidine 0.12% Oral Kit 15 ML UDC OROPHARYNG SCH ×2 (08:32→20:30)
[2018-04-12] MEDS: Dextrose 5%/NaCl 0.45% Inj 1,000 ML IV.CONT SCH ×2 (10:36→20:29)
--- NOTE | 2018-04-12 12:05 | P.PNCC ---
Subjective Subjective Remarks/Hospital Course: This 67-year-old came into the emergency room today with his and daughter. On 02/13/2018, he had a microdiscectomy, C5-C6, by Dr. Schwarz. He was discharged home the next day. A few days after, he had not been feeling well, short of breath, disoriented, generally weak, symptoms were getting worse, disorientation was worse. He was referred to emergency department by his primary care physician for an evaluation. In the ED he was found to be in severe hypercarbic respiratory acidosis and was intubated by ED attending. 04/01: CO2 retention corrected. Remains mildly alkalotic due to chronic CO2 elevation. PH normalized. Still requiring vasopressor therapy with norepinephrine. Broad-spectrum antibiotic coverage started. Lumbar puncture performed with opening pressure 20 and crystal-clear fluid, sent for cell counts , chemistries and culture. HSV included. One extra tube sent for future studies if necessary. Ammonia level 71 - repeat daily. 04/02: CSF appears benign. Repeat ammonia level normal. Gamma GT normal. Cardiac echo estimated of 45% ejection fraction requires a little additional investigation -patient has been chronically short of breath for several weeks now. Leukocytosis and left shift persists. Gram-positive cocci and white cells seen in sputum. This man clearly became acutely and critically ill - exact cause still eludes us. 04/03: Leukocytosis improved. Remains quite rigid when stimulated. Continues to move 4 limbs with purpose and follows commands with 4 limbs. Sputum demonstrates white blood cells and gram-negative rods. 04/04: Improved color and perfusion. Extubated yesterday afternoon but failed after about 45 minutes -developed somnolence then obtundation, appeared to be having difficulty taking a breath, concern for vocal cord dysfunction. On reintubation the cord edges were irregular but otherwise normal in appearance. I could not assess cord function as patient was not alert enough to cooperate with commands. We will definitely pursue possibilities of vocal cord dysfunction and or phrenic nerve paralysis once we get him extubated. Ideally, a sniff test under fluoroscopy would demonstrate any paradoxical diaphragm motion. 04/05: Afebrile. Neurologically appears intact. Daughter concerned about "appears distant" however on 40 mcg/kg/min of propofol and 250 mcg an hour fentanyl. No bowel movement since admission. Tube feeding only at 20 cc an hour. 04/06: Afebrile. Neurologically intact. Following commands.. Positive BM. Labile blood pressures yesterday. Replace potassium currently. 04/07: Patient writing notes today. Chest x-ray clear. Elevated left diaphragm , probably dysfunctional. Continued encephalopathy and generalized weakness chris very concerning. We will try Aminophyllin today to see if we can get some diaphragm and central nervous system stimulation. 04/08: Started on theophylline yesterday. Check level in a.m. Will attempt PSV trial today. Noted pulmonology requests possible T-bar with ABG when appropriate. Afebrile. 04/09: T-max 100. theophylline currently 3.7. Currently on CPAP trials. 02/18. 45%. Check ABG at 10 today. Desaturated yesterday currently back at 40%. 04/10: Resting in bed. Episode of nausea overnight. Negative workup. Evaluated positive BM 04/08. Patient more agitated overnight. Propofol discontinued due to hypotension. Currently on fentanyl drip. Theophylline. Creatinine currently 2.0 we will consult nephrology. Discontinue lisinopril. Receiving one half normal saline bolus currently. 04/11: T-max 101.1. Increasing O2 records.Increasing white blood cell count. For the cuff is overinflated to palpate the vocal cords. Leak by examination. Will change ET tube in place central line today. Empirically start antibiotics for aspiration. Not tolerating tube feeds and currently to low inner wall suction. Check KUB after ET tube exchange and central line placement. Restart metoclopramide. Positive BMs. SUBJECTIVE: 04/12: Yesterday, CT thorax revealed collapsed left lower lung. Status post bronchoscopy with reinflation of lung. Better saturations today. Continues with small and large bowel colonic distention. Right: 11 cm. GI is following. Might need decompression. Current orogastric tube to low intermittent wall suction. Objective Vital Signs / I&O: Vital Signs 04/11/18 12:02 04/11/18 12:04 04/11/18 12:17 Temperature 99.7 F H 99.7 F H Pulse Rate 74 74 74 Respiratory Rate 15 15 15 Blood Pressure 140/84 139/85 Pulse Oximetry 98 99 98 04/11/18 12:32 04/11/18 12:47 04/11/18 13:00 Temperature 99.7 F H 99.7 F H 99.5 F Pulse Rate 74 72 72 Respiratory Rate 15 15 15 Blood Pressure 139/87 138/86 Pulse Oximetry 97 98 98 04/11/18 13:02 04/11/18 13:25 04/11/18 13:33 Temperature 99.5 F Pulse Rate 72 68 Respiratory Rate 15 15 Blood Pressure 136/83 123/73 Pulse Oximetry 98 98 95 04/11/18 13:44 04/11/18 13:55 04/11/18 13:59 Temperature 99.5 F 100.2 F H 100.0 F H Pulse Rate 67 105 H 109 H Respiratory Rate 11 L 28 H 36 H Blood Pressure 129/75 210/99 H 213/91 H Pulse Oximetry 98 92 L 72 L 04/11/18 14:00 04/11/18 14:02 04/11/18 15:00 Temperature 100.0 F H 100.0 F H 99.7 F H Pulse Rate 91 H 116 H 73 Respiratory Rate 40 H 27 H 19 Blood Pressure 131/63 Pulse Oximetry 61 L 96 99 04/11/18 16:00 04/11/18 16:07 04/11/18 16:15 Temperature 99.7 F H 99.7 F H 99.7 F H Pulse Rate 65 65 64 Respiratory Rate 15 15 15 Blood Pressure 139/78 140/81 Pulse Oximetry 99 99 99 04/11/18 16:30 04/11/18 16:43 04/11/18 16:45 Temperature 99.7 F H 99.7 F H Pulse Rate 64 63 63 Respiratory Rate 15 15 15 Blood Pressure 144/82 H 145/84 H Pulse Oximetry 99 99 99 04/11/18 17:00 04/11/18 17:15 04/11/18 17:30 Temperature 99.7 F H 99.7 F H 99.7 F H Pulse Rate 65 63 62 Respiratory Rate 15 15 15 Blood Pressure 122/69 123/73 122/73 Pulse Oximetry 99 99 99 04/11/18 17:38 04/11/18 17:41 04/11/18 17:44 Temperature 99.9 F H 99.9 F H 99.9 F H Pulse Rate 63 62 63 Respiratory Rate 15 15 15 Blood Pressure 123/72 119/67 123/68 Pulse Oximetry 99 99 99 04/11/18 17:47 04/11/18 17:50 04/11/18 17:53 Temperature 99.9 F H 99.9 F H 99.9 F H Pulse Rate 62 63 66 Respiratory Rate 15 15 15 Blood Pressure 117/71 125/74 134/78 Pulse Oximetry 99 99 100 04/11/18 17:56 04/11/18 17:59 04/11/18 18:00 Temperature 99.9 F H 99.9 F H 99.9 F H Pulse Rate 66 65 64 Respiratory Rate 15 15 15 Blood Pressure 123/75 123/77 Pulse Oximetry 99 99 99 04/11/18 18:02 04/11/18 18:04 04/11/18 18:05 Temperature 99.9 F H 99.9 F H Pulse Rate 64 63 Respiratory Rate 15 15 Blood Pressure 123/72 122/72 Pulse Oximetry 99 99 04/11/18 19:17 04/11/18 19:20 04/11/18 19:23 Temperature 100.0 F H 100.0 F H Pulse Rate 59 L 59 L 59 L Respiratory Rate 15 15 15 Blood Pressure 117/75 123/78 Pulse Oximetry 99 99 99 04/11/18 19:26 04/11/18 19:29 04/11/18 19:32 Temperature 100.0 F H 100.0 F H 100.2 F H Pulse Rate 59 L 59 L 59 L Respiratory Rate 15 15 15 Blood Pressure 125/74 123/77 125/74 Pulse Oximetry 99 99 99 04/11/18 19:35 04/11/18 19:38 04/11/18 19:41 Temperature 100.2 F H 100.2 F H 100.2 F H Pulse Rate 59 L 59 L 59 L Respiratory Rate 15 15 15 Blood Pressure 127/70 110/68 115/73 Pulse Oximetry 99 99 99 04/11/18 19:44 04/11/18 19:47 04/11/18 19:50 Temperature 100.2 F H 100.2 F H 100.2 F H Pulse Rate 60 60 59 L Respiratory Rate 15 15 15 Blood Pressure 119/74 117/73 122/75 Pulse Oximetry 99 99 99 04/11/18 19:53 04/11/18 19:55 04/11/18 19:56 Temperature 100.2 F H 100.2 F H Pulse Rate 59 L 60 60 Respiratory Rate 15 15 15 Blood Pressure 116/72 122/70 Pulse Oximetry 99 99 99 04/11/18 19:59 04/11/18 20:00 04/11/18 20:15 Temperature 100.2 F H 100.2 F H 100.2 F H Pulse Rate 62 65 64 Respiratory Rate 16 15 15 Blood Pressure 121/70 115/69 Pulse Oximetry 99 99 99 04/11/18 20:30 04/11/18 20:45 04/11/18 21:00 Temperature 100.2 F H 100.4 F H 100.4 F H Pulse Rate 74 71 69 Respiratory Rate 15 15 15 Blood Pressure 116/74 115/67 120/68 Pulse Oximetry 99 99 99 04/11/18 21:15 04/11/18 21:30 04/11/18 21:45 Temperature 100.6 F H 100.6 F H 100.8 F H Pulse Rate 70 65 64 Respiratory Rate 15 15 15 Blood Pressure 110/68 102/62 98/60 L Pulse Oximetry 99 99 99 04/11/18 22:00 04/11/18 22:10 04/11/18 22:15 Temperature 100.9 F H 100.9 F H Pulse Rate 68 67 67 Respiratory Rate 15 15 Blood Pressure 115/68 117/66 Pulse Oximetry 99 99 04/11/18 22:29 04/11/18 22:30 04/11/18 22:45 Temperature 100.9 F H 100.9 F H 101.1 F H Pulse Rate 70 69 71 Respiratory Rate 15 15 15 Blood Pressure 118/70 129/75 Pulse Oximetry 99 99 99 04/11/18 23:00 04/11/18 23:15 04/11/18 23:30 Temperature 101.1 F H 101.1 F H 101.3 F H Pulse Rate 66 63 62 Respiratory Rate 15 15 15 Blood Pressure 115/69 111/64 112/66 Pulse Oximetry 99 99 99 04/11/18 23:45 04/12/18 00:00 04/12/18 00:15 Temperature 101.3 F H 101.3 F H Pulse Rate 63 66 65 Respiratory Rate 15 15 15 Blood Pressure 111/67 113/71 117/70 Pulse Oximetry 99 99 99 04/12/18 00:30 04/12/18 00:45 04/12/18 01:00 Temperature 101.1 F H 100.9 F H 100.9 F H Pulse Rate 69 81 76 Respiratory Rate 15 18 15 Blood Pressure 114/71 134/70 112/63 Pulse Oximetry 99 96 95 04/12/18 01:15 04/12/18 01:30 04/12/18 01:45 Temperature 100.8 F H 100.8 F H Pulse Rate 75 75 71 Respiratory Rate 15 15 15 Blood Pressure 132/73 124/75 123/72 Pulse Oximetry 97 97 97 04/12/18 02:00 04/12/18 02:15 04/12/18 02:30 Temperature Pulse Rate 71 70 69 Respiratory Rate 15 15 15 Blood Pressure 122/69 118/68 121/71 Pulse Oximetry 97 97 97 04/12/18 02:45 04/12/18 03:00 04/12/18 03:15 Temperature Pulse Rate 68 68 71 Respiratory Rate 15 15 15 Blood Pressure 122/73 122/72 126/76 Pulse Oximetry 98 98 97 04/12/18 03:30 04/12/18 03:45 04/12/18 04:00 Temperature 100.8 F H Pulse Rate 67 68 67 Respiratory Rate 15 15 15 Blood Pressure 125/74 126/73 125/76 Pulse Oximetry 99 99 99 04/12/18 04:10 04/12/18 04:15 04/12/18 04:30 Temperature Pulse Rate 69 69 67 Respiratory Rate 15 15 Blood Pressure 131/80 136/80 Pulse Oximetry 100 99 04/12/18 04:45 04/12/18 04:57 04/12/18 05:00 Temperature Pulse Rate 68 67 70 Respiratory Rate 15 15 15 Blood Pressure 121/70 131/72 Pulse Oximetry 98 97 100 04/12/18 05:15 04/12/18 05:30 04/12/18 05:45 Temperature 100.6 F H 100.6 F H Pulse Rate 70 70 71 Respiratory Rate 15 15 15 Blood Pressure 120/64 118/69 115/68 Pulse Oximetry 95 95 95 04/12/18 06:00 04/12/18 06:09 04/12/18 06:15 Temperature Pulse Rate 68 66 66 Respiratory Rate 15 15 15 Blood Pressure 94/58 L 96/55 L 107/64 Pulse Oximetry 96 97 98 04/12/18 06:30 04/12/18 06:45 04/12/18 07:00 Temperature 99.9 F H 100.0 F H 99.9 F H Pulse Rate 69 68 67 Respiratory Rate 15 15 15 Blood Pressure 135/72 122/72 119/71 Pulse Oximetry 100 97 98 04/12/18 07:15 04/12/18 07:30 04/12/18 07:45 Temperature 99.9 F H 99.9 F H 99.9 F H Pulse Rate 67 68 67 Respiratory Rate 15 15 15 Blood Pressure 122/71 119/70 118/71 Pulse Oximetry 97 98 99 04/12/18 08:00 04/12/18 08:15 04/12/18 08:30 Temperature 99.9 F H 99.9 F H 99.9 F H Pulse Rate 72 68 67 Respiratory Rate 15 15 15 Blood Pressure 120/76 119/66 117/66 Pulse Oximetry 97 97 98 04/12/18 08:45 04/12/18 09:00 04/12/18 09:30 Temperature 99.9 F H 99.9 F H 100.0 F H Pulse Rate 67 64 67 Respiratory Rate 15 15 13 Blood Pressure 118/66 115/65 125/73 Pulse Oximetry 97 98 97 04/12/18 09:31 04/12/18 09:45 Temperature 99.9 F H Pulse Rate 73 87 Respiratory Rate 18 17 Blood Pressure 163/79 H Pulse Oximetry 97 95 Intake & Output 04/11/18 04/12/18 04/12/18 18:59 06:59 18:59 Intake Total 1350 / 1350 2815 / 2815 1150 / 1150 Output Total 1175 / 1175 750 / 750 Balance 175 / 175 2065 / 2065 1150 / 1150 Weight 85.8 kg Intake: IV 550 / 550 2014 1150 / 1150 Precedex Inj 1,000 MCG In NS 250 / 250 250 / 250 Inj 240 ML @ 0.2 MCG/KG/HR 4.31 mls/hr IV.CONT TITRATE PRN Rx# :[id number] D5W/1/2 NS Inj 1,000 ML @ 84 1000 / 1000 1000 / 1000 mls/hr IV.CONT .[id number] GIGI Rx# :[id number] Mycamine Inj 150 MG In NS Inj 100 / 100 100 ML @ 100 mls/hr IV.SIG Q24H GIGI Rx#:[id number] Zosyn 2.25 GM Premix 2.25 gm In 50 / 50 150 / 150 50 / 50 50 ml @ 100 mls/hr IV.SIG Q6H GIGI Rx#:[id number] KCl 40 mEq Premix Inj 40 meq In 100 / 100 100 ml @ 25 mls/hr IV.SIG UNSCH PRN Rx#:[id number] Vancomycin Inj 1,500 MG In NS 515 / 515 Inj 500 ML @ 250 mls/hr IV.SIG ONCE ONE Rx#:[id number] fentaNYL 10 mcg/mL Premix Drip 250 / 250 2,500 mcg In 250 ml @ 50 MCG/HR 5 mls/hr IV.SIG TITRATE PRN Rx #:[id number] Tube Feeding 0 / 0 Water Bolus Amount 400 / 400 400 / 400 Free Water Amount 400 / 400 400 / 400 Output: Urine Amount (Catheter) 1175 / 1175 700 / 700 Indwelling Urethral Catheter 1175 / 1175 700 / 700 Gastric Drainage 50 / 50 Orogastric Tube 50 / 50 Other: Date of Last Bowel Movement 04/11/18 04/12/18 04/12/18 # Incontinent Bowel Movements 3 1 Result Diagrams: 04/12/18 04:25 04/12/18 04:25 Other Results: Microbiology 04/10/18 18:45 Sputum - Endotracheal Gram Stain - Final 04/10/18 18:45 Sputum - Endotracheal Sputum Culture - Final Rare growth normal respiratory giovanni 04/11/18 18:00 Bronchial - Bronchial Gram Stain - Final 04/11/18 18:15 Blood - Peripheral Aerobic Blood Culture - Preliminary No growth in 1 day 04/11/18 18:15 Blood - Peripheral Anaerobic Blood Culture - Preliminary No growth in 1 day 04/11/18 18:00 Blood - Peripheral Aerobic Blood Culture - Preliminary No growth in 1 day 04/11/18 18:00 Blood - Peripheral Anaerobic Blood Culture - Preliminary No growth in 1 day 04/10/18 17:45 Blood - Peripheral Aerobic Blood Culture - Preliminary No growth in 2 days 04/10/18 17:45 Blood - Peripheral Anaerobic Blood Culture - Preliminary No growth in 2 days 04/10/18 17:50 Blood - Peripheral Aerobic Blood Culture - Preliminary No growth in 2 days 04/10/18 17:50 Blood - Peripheral Anaerobic Blood Culture - Preliminary No growth in 2 days 04/12/18 00:50 Stool Stool for WBCs - Final Rare WBC's 04/10/18 18:45 Catheterized Urine Urine Culture - Final No growth in 48 hours 04/11/18 09:25 Sputum - Endotracheal Gram Stain - Final 03/31/18 19:04 Blood - Peripheral Aerobic Blood Culture - Final No growth in 5 days 03/31/18 19:04 Blood - Peripheral Anaerobic Blood Culture - Final No growth in 5 days 03/31/18 19:09 Blood - Peripheral Aerobic Blood Culture - Final No growth in 5 days 03/31/18 19:09 Blood - Peripheral Anaerobic Blood Culture - Final No growth in 5 days 04/01/18 18:15 Lumbar Puncture Gram Stain - Final 04/01/18 18:15 Lumbar Puncture CSF Culture - Final No growth in 72 hours 04/01/18 06:00 Sputum - Endotracheal Gram Stain - Final 04/01/18 06:00 Sputum - Endotracheal Sputum Culture - Final Klebsiella oxytoca 04/01/18 06:00 Nasal Wash Influenza Types A,B Antigen - Final Negative for FLU A and B antigen Infection due to influenza A or B cannot be ruled out since the antigen present in the sample may be below the detection limit of the test. Imaging: Head MRI 03/31/18 00:00 CONCLUSION: Negative exam Chest X-Ray 03/31/18 12:15 CONCLUSION: 1. Hypoinflation with probable atelectatic changes above the left hemidiaphragm. 2. Otherwise, no acute cardiopulmonary process. Head CT 03/31/18 12:16 CONCLUSION: 1. Negative CT Head non contrast. . Chest CTA 03/31/18 14:39 CONCLUSION: 1. Bibasilar atelectatic changes, left greater than right. No confluent infiltrate. 2. No pulmonary embolus. 3. Atherosclerotic calcification of the coronary arteries. Chest X-Ray 03/31/18 16:11 CONCLUSION: 1. Hypoinflation with persistent left basilar atelectasis. 2. Endotracheal tube tip at the clavicular heads, above the duane. Cervical Spine MRI 03/31/18 16:17 CONCLUSION: 1. Status post fusion at the C5-C6 level. There is susceptibility artifact from the hardware. 2. A significant area of stenosis in the thecal sac is not seen. 3. Facet hypertrophy seen throughout with scattered areas of neural foraminal narrowing as described above. 4. The patient is intubated with fluid in the hypopharynx, laryngeal pharynx, and upper trachea around the ET tube and above the tracheal ET tube cuff. 5. The does appear to be some mild soft tissue swelling in the prevertebral region best seen on the sagittal images. Chest X-Ray 04/01/18 04:29 CONCLUSION: 1. Nasogastric tube and left subclavian central venous catheter now in place. 2. Mild bilateral lower lung zone atelectasis unchanged. No evidence of pneumothorax. Chest X-Ray 04/02/18 04:00 CONCLUSION: No significant interval change. Mild bilateral lower lung zone atelectasis. Chest X-Ray 04/04/18 00:00 CONCLUSION: Stable chest. Persistent bibasilar patchy opacities. Chest X-Ray 04/06/18 06:00 CONCLUSION: Some improvement in the bibasilar consolidations. Chest X-Ray 04/07/18 06:00 CONCLUSION: ET tube in good position. Lungs are grossly clear. Chest X-Ray 04/08/18 16:38 CONCLUSION: No significant interval change. Mild patchy bilateral lower lung opacity. Chest X-Ray 04/09/18 06:00 CONCLUSION: 1. No significant interval change. 2. Stable ETT and NGT. 3. Mild bilateral lower lobe patchy airspace disease. Abdomen X-Ray 04/09/18 20:57 CONCLUSION: Gastric tube tip within the stomach. Abdomen/Bladder Ultrasound 04/10/18 08:05 CONCLUSION: 1. Probable complex cyst coming off the right lower pole kidney appears smaller since 2017 CT examination of the abdomen. Abdomen X-Ray 04/11/18 00:00 CONCLUSION: Moderate air throughout small and large bowel without evidence of pneumatosis or free air on these [address] 04/11/18 00:00 CONCLUSION: 1. Patchy nodular opacities in the right lower lobe coalescing posteriorly most consistent with an infectious etiology such as bronchopneumonia. 2. Near complete left lower lobe collapse and dense airspace consolidation in the posterior right lower lobe. Differential considerations include aspiration. 3. Coronary artery cavitations. Chest X-Ray 04/11/18 06:00 CONCLUSION: Stable exam. Support apparatus unchanged. Mild basilar airspace disease persists. Chest X-Ray 04/11/18 08:15 CONCLUSION: 1. Stable ETT and NGT. 2. Right IJ central line in good position without pneumothorax. 3. Stable mild bibasilar airspace disease. Abdomen/Pelvis CT 04/11/18 13:06 CONCLUSION: 1. Bilateral lower lobe consolidations left greater than right. Distended small and large bowel without evidence of wall thickening or obstruction. NG tube coiled within the stomach. Chest X-Ray 04/11/18 17:58 CONCLUSION: 1. Stable tubes and lines. 2. No significant pneumothorax. 3. Redemonstration of subtle right upper lobe patchy airspace disease and bilateral lower lobe pleural-parenchymal opacities. Chest X-Ray 04/12/18 06:00 CONCLUSION: Support apparatus in good position. Basilar airspace consolidation in the lungs. Abdomen X-Ray 04/12/18 08:00 CONCLUSION: NG coiled in stomach. Persistent gaseous distention of bowel with proximal right colon measuring just over 11 cm in diameter. This is similar to prior exam. Objective Remarks: GENERAL: 67-year-old male currently orotracheally intubated in no acute distress SKIN: Warm and dry. HEAD: Atraumatic. Normocephalic. EYES: Pupils equal and round. No scleral icterus. No injection or drainage. ENT: No nasal bleeding or discharge. Mucous membranes pink and moist. NECK: Trachea midline. No JVD. Right IJ CVL is clean dry and intact CARDIOVASCULAR: RRR S1, S2 no S4. RESPIRATORY: Raises shoulders to take spontaneous breaths. Clear to auscultation. Breath sounds equal bilaterally. GASTROINTESTINAL: Abdomen slightly protuberant/non-tender, slightly firm and tympanic. Bowel sounds hypo-active. MUSCULOSKELETAL: Extremities without clubbing, cyanosis, trace to 1+ edema. No obvious deformities. NEUROLOGICAL: Follows commands and moves extremities to command. Assessment and Plan - Assessment and Plan Plan: Neuro/Psych: History of anterior C5/6 microdiscectomy with fusion Currently on fentanyl drip at 200 mcg an hour for vent synchrony Restarted dexmedetomidine drip. Will use midazolam in the interim Goal of RA SS 0 Daily sedation vacation Evaluate by neurosurgery/Dr. Viera. No intervention planned at this time CT brain/MRI C-spine negative EEG revealed no epileptic activity Neurology following. Recommend myasthenia gravis lab. Negative to date. Left diaphragm remains elevated, suspect not functioning well. CV: Systolic heart failure unknown if acute or chronic Essential hypertension Hyperlipidemia Ejection fraction 45% on admission. Appreciate cardiac evaluation by Dr. Escobedo. No plans at this time Holding amlodipine 10 mg daily, and metoprolol tartrate 12.5 mg twice daily for hypertension Holding clonidine 0.1 twice daily and lisinopril 5 mg daily in light of hypotension/lisinopril for acute kidney injury Continue pravastatin 40 mg daily for dyslipidemia. Continue aspirin 81 mg by mouth daily. Resp: Acute hypercapnic respiratory failure Klebsiella oxycodone pneumonia PRVC ventilation Ventilator bundle Head of bed at 30 degrees Albuterol/ipratropium aerosols every 4 hours with albuterol aerosols every 2 hours as needed dyspnea Spontaneous breathing trials once clinically indicated Will need sniff test to assess diaphragmatic function once extubated We will consult ENT to assess vocal cords when appropriate Appreciate pulmonary input. Spontaneous breathing trial daily. May benefit from tracheostomy 02/08 discontinue theophylline 400 mg daily acute delirium. Noted level. 04/09 3.7 Status post bronchoscopy . Thick white purulent secretions left lower lobe suction to clear. GI: Gastroesophageal reflux disease Transaminitis Hypoalbuminemia Ileus Tube feeding/Nepro at 60 cc an hour days. NG tube to low intermittent wall suction At home on pantoprazole 40 mg daily. Currently on lansoprazole 30 mg daily Docusate sodium/senna 1 tablet twice daily for bowel regimen. On lactulose 30 cc twice daily. Add polyethylene glycol 17 g twice daily and methylnaltrexone x1 today. Check KUB revealed distended large and small bowel. Right: 11 cm.. Recheck in a.m. 04/13 GI consultation. : Wood catheter if indicated for accurate I's and O's in a critical patient Converted to condom cath if possible. Endo: Hypothyroidism TSH 1.28. Continue levothyroxine 125 mg by mouth daily Sliding scale insulin if indicated to maintain euglycemia Renal: Kidney injury - acute Avoid all nephrotoxic medications Creatinine currently 2.7 Neurology consultation for evaluation this is contrast-induced nephropathy from scans 03/31. Avoid nephrotoxic medication. Lisinopril discontinued. Accurate I's and O's Monitor urine output Heme: Normocytic anemia Leukocytosis Monitor CBC daily. Follow trends per No indication for transfusion of blood proximal to this time. ID: Klebsiella oxycodone pneumonia sputum 04/01 Currently repleted therapy with ceftriaxone per infectious disease. Lumbar puncture negative. HSV negative No growth to date on other cultures aside from sputum Recheck blood cultures, sputum 04/02 pending Started on piperacillin/tazobactam 04/11 due to aspiration FEN: Hypernatremia Hyper magnesium Hypopotassemia Free water 200 cc every 6 hours. Replace electrolytes as clinically indicated per ICU electrolyte protocol. Recheck electrolytes in a.m. Start on one half normal saline at 42 cc MSK: PT evaluate and treat Access -Utilize peripheral IV. Central line if indicated Prophylaxis -GI -lansoprazole -DVT -SCD/enoxaparin Overall impression: Remains quite weak and debilitated. We need to continue to work on nutrition and gentle weaning. His cough is so weak he may benefit from a tracheostomy for pulmonary toilet. Daughter and and patient at bedside. Care plan discussed all questions answered. Critical care time 35 minutes.
--- NOTE | 2018-04-12 13:23 | P.PNGI ---
Subjective Interval history: Intubated sedated and mechanically ventilated Abdomen appears softer KUB this a.m. similar to prior exam Nurse reports patient had 3 BMs overnight Estimated 50 cc gastric content noted in drainage container-OG to low intermittent wall suction <Sammi Delgado - Last Filed: 04/12/18 12:50> Physical Exam Vital signs: Vital Signs 04/11/18 13:00 04/11/18 13:02 04/11/18 13:25 Temperature 99.5 F 99.5 F Pulse Rate 72 72 Respiratory Rate 15 15 Blood Pressure 136/83 Pulse Oximetry 98 98 98 04/11/18 13:33 04/11/18 13:44 04/11/18 13:55 Temperature 99.5 F 100.2 F H Pulse Rate 68 67 105 H Respiratory Rate 15 11 L 28 H Blood Pressure 123/73 129/75 210/99 H Pulse Oximetry 95 98 92 L 04/11/18 13:59 04/11/18 14:00 04/11/18 14:02 Temperature 100.0 F H 100.0 F H 100.0 F H Pulse Rate 109 H 91 H 116 H Respiratory Rate 36 H 40 H 27 H Blood Pressure 213/91 H 131/63 Pulse Oximetry 72 L 61 L 96 04/11/18 15:00 04/11/18 16:00 04/11/18 16:07 Temperature 99.7 F H 99.7 F H 99.7 F H Pulse Rate 73 65 65 Respiratory Rate 19 15 15 Blood Pressure 139/78 Pulse Oximetry 99 99 99 04/11/18 16:15 04/11/18 16:30 04/11/18 16:43 Temperature 99.7 F H 99.7 F H Pulse Rate 64 64 63 Respiratory Rate 15 15 15 Blood Pressure 140/81 144/82 H Pulse Oximetry 99 99 99 04/11/18 16:45 04/11/18 17:00 04/11/18 17:15 Temperature 99.7 F H 99.7 F H 99.7 F H Pulse Rate 63 65 63 Respiratory Rate 15 15 15 Blood Pressure 145/84 H 122/69 123/73 Pulse Oximetry 99 99 99 04/11/18 17:30 04/11/18 17:38 04/11/18 17:41 Temperature 99.7 F H 99.9 F H 99.9 F H Pulse Rate 62 63 62 Respiratory Rate 15 15 15 Blood Pressure 122/73 123/72 119/67 Pulse Oximetry 99 99 99 04/11/18 17:44 04/11/18 17:47 04/11/18 17:50 Temperature 99.9 F H 99.9 F H 99.9 F H Pulse Rate 63 62 63 Respiratory Rate 15 15 15 Blood Pressure 123/68 117/71 125/74 Pulse Oximetry 99 99 99 04/11/18 17:53 04/11/18 17:56 04/11/18 17:59 Temperature 99.9 F H 99.9 F H 99.9 F H Pulse Rate 66 66 65 Respiratory Rate 15 15 15 Blood Pressure 134/78 123/75 123/77 Pulse Oximetry 100 99 99 04/11/18 18:00 04/11/18 18:02 04/11/18 18:04 Temperature 99.9 F H 99.9 F H 99.9 F H Pulse Rate 64 64 63 Respiratory Rate 15 15 15 Blood Pressure 123/72 Pulse Oximetry 99 99 99 04/11/18 18:05 04/11/18 19:17 04/11/18 19:20 Temperature 100.0 F H Pulse Rate 59 L 59 L Respiratory Rate 15 15 Blood Pressure 122/72 117/75 Pulse Oximetry 99 99 04/11/18 19:23 04/11/18 19:26 04/11/18 19:29 Temperature 100.0 F H 100.0 F H 100.0 F H Pulse Rate 59 L 59 L 59 L Respiratory Rate 15 15 15 Blood Pressure 123/78 125/74 123/77 Pulse Oximetry 99 99 99 04/11/18 19:32 04/11/18 19:35 04/11/18 19:38 Temperature 100.2 F H 100.2 F H 100.2 F H Pulse Rate 59 L 59 L 59 L Respiratory Rate 15 15 15 Blood Pressure 125/74 127/70 110/68 Pulse Oximetry 99 99 99 04/11/18 19:41 04/11/18 19:44 04/11/18 19:47 Temperature 100.2 F H 100.2 F H 100.2 F H Pulse Rate 59 L 60 60 Respiratory Rate 15 15 15 Blood Pressure 115/73 119/74 117/73 Pulse Oximetry 99 99 99 04/11/18 19:50 04/11/18 19:53 04/11/18 19:55 Temperature 100.2 F H 100.2 F H Pulse Rate 59 L 59 L 60 Respiratory Rate 15 15 15 Blood Pressure 122/75 116/72 Pulse Oximetry 99 99 99 04/11/18 19:56 04/11/18 19:59 04/11/18 20:00 Temperature 100.2 F H 100.2 F H 100.2 F H Pulse Rate 60 62 65 Respiratory Rate 15 16 15 Blood Pressure 122/70 121/70 Pulse Oximetry 99 99 99 04/11/18 20:15 04/11/18 20:30 04/11/18 20:45 Temperature 100.2 F H 100.2 F H 100.4 F H Pulse Rate 64 74 71 Respiratory Rate 15 15 15 Blood Pressure 115/69 116/74 115/67 Pulse Oximetry 99 99 99 04/11/18 21:00 04/11/18 21:15 04/11/18 21:30 Temperature 100.4 F H 100.6 F H 100.6 F H Pulse Rate 69 70 65 Respiratory Rate 15 15 15 Blood Pressure 120/68 110/68 102/62 Pulse Oximetry 99 99 99 04/11/18 21:45 04/11/18 22:00 04/11/18 22:10 Temperature 100.8 F H 100.9 F H Pulse Rate 64 68 67 Respiratory Rate 15 15 Blood Pressure 98/60 L 115/68 Pulse Oximetry 99 99 04/11/18 22:15 04/11/18 22:29 04/11/18 22:30 Temperature 100.9 F H 100.9 F H 100.9 F H Pulse Rate 67 70 69 Respiratory Rate 15 15 15 Blood Pressure 117/66 118/70 Pulse Oximetry 99 99 99 04/11/18 22:45 04/11/18 23:00 04/11/18 23:15 Temperature 101.1 F H 101.1 F H 101.1 F H Pulse Rate 71 66 63 Respiratory Rate 15 15 15 Blood Pressure 129/75 115/69 111/64 Pulse Oximetry 99 99 99 04/11/18 23:30 04/11/18 23:45 04/12/18 00:00 Temperature 101.3 F H 101.3 F H 101.3 F H Pulse Rate 62 63 66 Respiratory Rate 15 15 15 Blood Pressure 112/66 111/67 113/71 Pulse Oximetry 99 99 99 04/12/18 00:15 04/12/18 00:30 04/12/18 00:45 Temperature 101.1 F H 100.9 F H Pulse Rate 65 69 81 Respiratory Rate 15 15 18 Blood Pressure 117/70 114/71 134/70 Pulse Oximetry 99 99 96 04/12/18 01:00 04/12/18 01:15 04/12/18 01:30 Temperature 100.9 F H 100.8 F H 100.8 F H Pulse Rate 76 75 75 Respiratory Rate 15 15 15 Blood Pressure 112/63 132/73 124/75 Pulse Oximetry 95 97 97 04/12/18 01:45 04/12/18 02:00 04/12/18 02:15 Temperature Pulse Rate 71 71 70 Respiratory Rate 15 15 15 Blood Pressure 123/72 122/69 118/68 Pulse Oximetry 97 97 97 04/12/18 02:30 04/12/18 02:45 04/12/18 03:00 Temperature Pulse Rate 69 68 68 Respiratory Rate 15 15 15 Blood Pressure 121/71 122/73 122/72 Pulse Oximetry 97 98 98 04/12/18 03:15 04/12/18 03:30 04/12/18 03:45 Temperature Pulse Rate 71 67 68 Respiratory Rate 15 15 15 Blood Pressure 126/76 125/74 126/73 Pulse Oximetry 97 99 99 04/12/18 04:00 04/12/18 04:10 04/12/18 04:15 Temperature 100.8 F H Pulse Rate 67 69 69 Respiratory Rate 15 15 Blood Pressure 125/76 131/80 Pulse Oximetry 99 100 04/12/18 04:30 04/12/18 04:45 04/12/18 04:57 Temperature Pulse Rate 67 68 67 Respiratory Rate 15 15 15 Blood Pressure 136/80 121/70 Pulse Oximetry 99 98 97 04/12/18 05:00 04/12/18 05:15 04/12/18 05:30 Temperature 100.6 F H 100.6 F H Pulse Rate 70 70 70 Respiratory Rate 15 15 15 Blood Pressure 131/72 120/64 118/69 Pulse Oximetry 100 95 95 04/12/18 05:45 04/12/18 06:00 04/12/18 06:09 Temperature Pulse Rate 71 68 66 Respiratory Rate 15 15 15 Blood Pressure 115/68 94/58 L 96/55 L Pulse Oximetry 95 96 97 04/12/18 06:15 04/12/18 06:30 04/12/18 06:45 Temperature 99.9 F H 100.0 F H Pulse Rate 66 69 68 Respiratory Rate 15 15 15 Blood Pressure 107/64 135/72 122/72 Pulse Oximetry 98 100 97 04/12/18 07:00 04/12/18 07:15 04/12/18 07:30 Temperature 99.9 F H 99.9 F H 99.9 F H Pulse Rate 67 67 68 Respiratory Rate 15 15 15 Blood Pressure 119/71 122/71 119/70 Pulse Oximetry 98 97 98 04/12/18 07:45 04/12/18 08:00 04/12/18 08:15 Temperature 99.9 F H 99.9 F H 99.9 F H Pulse Rate 67 72 68 Respiratory Rate 15 15 15 Blood Pressure 118/71 120/76 119/66 Pulse Oximetry 99 97 97 04/12/18 08:30 04/12/18 08:45 04/12/18 09:00 Temperature 99.9 F H 99.9 F H 99.9 F H Pulse Rate 67 67 64 Respiratory Rate 15 15 15 Blood Pressure 117/66 118/66 115/65 Pulse Oximetry 98 97 98 04/12/18 09:30 04/12/18 09:31 04/12/18 09:45 Temperature 100.0 F H 99.9 F H Pulse Rate 67 73 87 Respiratory Rate 13 18 17 Blood Pressure 125/73 163/79 H Pulse Oximetry 97 97 95 04/12/18 12:12 04/12/18 12:13 Temperature Pulse Rate 81 Respiratory Rate 15 15 Blood Pressure Pulse Oximetry Intake & Output 04/11/18 04/12/18 04/12/18 18:59 06:59 18:59 Intake Total 1350 / 1350 2815 / 2815 1150 / 1150 Output Total 1175 / 1175 750 / 750 Balance 175 / 175 2065 / 2065 1150 / 1150 Weight 85.8 kg Intake: IV 550 / 550 2014 1150 / 1150 Precedex Inj 1,000 MCG In NS 250 / 250 250 / 250 Inj 240 ML @ 0.2 MCG/KG/HR 4.31 mls/hr IV.CONT TITRATE PRN Rx# :[id number] D5W/1/2 NS Inj 1,000 ML @ 84 1000 / 1000 1000 / 1000 mls/hr IV.CONT .[id number] [facility] Rx# :[id number] Mycamine Inj 150 MG In NS Inj 100 / 100 100 ML @ 100 mls/hr IV.SIG Q24H [facility] Rx#:[id number] Zosyn 2.25 GM Premix 2.25 gm In 50 / 50 150 / 150 50 / 50 50 ml @ 100 mls/hr IV.SIG Q6H [facility] Rx#:[id number] KCl 40 mEq Premix Inj 40 meq In 100 / 100 100 ml @ 25 mls/hr IV.SIG UNSCH PRN Rx#:[id number] Vancomycin Inj 1,500 MG In NS 515 / 515 Inj 500 ML @ 250 mls/hr IV.SIG ONCE ONE Rx#:[id number] fentaNYL 10 mcg/mL Premix Drip 250 / 250 2,500 mcg In 250 ml @ 50 MCG/HR 5 mls/hr IV.SIG TITRATE PRN Rx #:[id number] Tube Feeding 0 / 0 Water Bolus Amount 400 / 400 400 / 400 Free Water Amount 400 / 400 400 / 400 Output: Urine Amount (Catheter) 1175 / 1175 700 / 700 Indwelling Urethral Catheter 1175 / 1175 700 / 700 Gastric Drainage 50 / 50 Orogastric Tube 50 / 50 Other: Date of Last Bowel Movement 04/11/18 04/12/18 04/12/18 # Incontinent Bowel Movements 3 1 - Constitutional chronically ill appearing Comments: Intubated sedated and mechanically ventilated - Routine HEENT Exam Head: Present: normocephalic Comments: Orogastric tube present - Routine Respiratory Exam Present: patient mechanically ventilated, CTA bilaterally - Routine Abdominal Exam Present: distended. Absent: tenderness, firm - Routine Extremities Exam Absent: edema - Routine Skin Exam Present: dry, warm - Routine Neurological Exam Sedated for ventilator synchrony - Urinary Catheter Management Indwelling Urethral Catheter Cath placed during this visit: yes Reason for continuing: Hourly intake/output Insertion date: 04/10/18 Insertion time: 01:45 <Sammi Delgado - Last Filed: 04/12/18 12:50> Vital signs: Vital Signs 04/11/18 19:17 04/11/18 19:20 04/11/18 19:23 Temperature 100.0 F H 100.0 F H Pulse Rate 59 L 59 L 59 L Respiratory Rate 15 15 15 Blood Pressure 117/75 123/78 Pulse Oximetry 99 99 99 04/11/18 19:26 04/11/18 19:29 04/11/18 19:32 Temperature 100.0 F H 100.0 F H 100.2 F H Pulse Rate 59 L 59 L 59 L Respiratory Rate 15 15 15 Blood Pressure 125/74 123/77 125/74 Pulse Oximetry 99 99 99 04/11/18 19:35 04/11/18 19:38 04/11/18 19:41 Temperature 100.2 F H 100.2 F H 100.2 F H Pulse Rate 59 L 59 L 59 L Respiratory Rate 15 15 15 Blood Pressure 127/70 110/68 115/73 Pulse Oximetry 99 99 99 04/11/18 19:44 04/11/18 19:47 04/11/18 19:50 Temperature 100.2 F H 100.2 F H 100.2 F H Pulse Rate 60 60 59 L Respiratory Rate 15 15 15 Blood Pressure 119/74 117/73 122/75 Pulse Oximetry 99 99 99 04/11/18 19:53 04/11/18 19:55 04/11/18 19:56 Temperature 100.2 F H 100.2 F H Pulse Rate 59 L 60 60 Respiratory Rate 15 15 15 Blood Pressure 116/72 122/70 Pulse Oximetry 99 99 99 04/11/18 19:59 04/11/18 20:00 04/11/18 20:15 Temperature 100.2 F H 100.2 F H 100.2 F H Pulse Rate 62 65 64 Respiratory Rate 16 15 15 Blood Pressure 121/70 115/69 Pulse Oximetry 99 99 99 04/11/18 20:30 04/11/18 20:45 04/11/18 21:00 Temperature 100.2 F H 100.4 F H 100.4 F H Pulse Rate 74 71 69 Respiratory Rate 15 15 15 Blood Pressure 116/74 115/67 120/68 Pulse Oximetry 99 99 99 04/11/18 21:15 04/11/18 21:30 04/11/18 21:45 Temperature 100.6 F H 100.6 F H 100.8 F H Pulse Rate 70 65 64 Respiratory Rate 15 15 15 Blood Pressure 110/68 102/62 98/60 L Pulse Oximetry 99 99 99 04/11/18 22:00 04/11/18 22:10 04/11/18 22:15 Temperature 100.9 F H 100.9 F H Pulse Rate 68 67 67 Respiratory Rate 15 15 Blood Pressure 115/68 117/66 Pulse Oximetry 99 99 04/11/18 22:29 04/11/18 22:30 04/11/18 22:45 Temperature 100.9 F H 100.9 F H 101.1 F H Pulse Rate 70 69 71 Respiratory Rate 15 15 15 Blood Pressure 118/70 129/75 Pulse Oximetry 99 99 99 04/11/18 23:00 04/11/18 23:15 04/11/18 23:30 Temperature 101.1 F H 101.1 F H 101.3 F H Pulse Rate 66 63 62 Respiratory Rate 15 15 15 Blood Pressure 115/69 111/64 112/66 Pulse Oximetry 99 99 99 04/11/18 23:45 04/12/18 00:00 04/12/18 00:15 Temperature 101.3 F H 101.3 F H Pulse Rate 63 66 65 Respiratory Rate 15 15 15 Blood Pressure 111/67 113/71 117/70 Pulse Oximetry 99 99 99 04/12/18 00:30 04/12/18 00:45 04/12/18 01:00 Temperature 101.1 F H 100.9 F H 100.9 F H Pulse Rate 69 81 76 Respiratory Rate 15 18 15 Blood Pressure 114/71 134/70 112/63 Pulse Oximetry 99 96 95 04/12/18 01:15 04/12/18 01:30 04/12/18 01:45 Temperature 100.8 F H 100.8 F H Pulse Rate 75 75 71 Respiratory Rate 15 15 15 Blood Pressure 132/73 124/75 123/72 Pulse Oximetry 97 97 97 04/12/18 02:00 04/12/18 02:15 04/12/18 02:30 Temperature Pulse Rate 71 70 69 Respiratory Rate 15 15 15 Blood Pressure 122/69 118/68 121/71 Pulse Oximetry 97 97 97 04/12/18 02:45 04/12/18 03:00 04/12/18 03:15 Temperature Pulse Rate 68 68 71 Respiratory Rate 15 15 15 Blood Pressure 122/73 122/72 126/76 Pulse Oximetry 98 98 97 04/12/18 03:30 04/12/18 03:45 04/12/18 04:00 Temperature 100.8 F H Pulse Rate 67 68 67 Respiratory Rate 15 15 15 Blood Pressure 125/74 126/73 125/76 Pulse Oximetry 99 99 99 04/12/18 04:10 04/12/18 04:15 04/12/18 04:30 Temperature Pulse Rate 69 69 67 Respiratory Rate 15 15 Blood Pressure 131/80 136/80 Pulse Oximetry 100 99 04/12/18 04:45 04/12/18 04:57 04/12/18 05:00 Temperature Pulse Rate 68 67 70 Respiratory Rate 15 15 15 Blood Pressure 121/70 131/72 Pulse Oximetry 98 97 100 04/12/18 05:15 04/12/18 05:30 04/12/18 05:45 Temperature 100.6 F H 100.6 F H Pulse Rate 70 70 71 Respiratory Rate 15 15 15 Blood Pressure 120/64 118/69 115/68 Pulse Oximetry 95 95 95 04/12/18 06:00 04/12/18 06:09 04/12/18 06:15 Temperature Pulse Rate 68 66 66 Respiratory Rate 15 15 15 Blood Pressure 94/58 L 96/55 L 107/64 Pulse Oximetry 96 97 98 04/12/18 06:30 04/12/18 06:45 04/12/18 07:00 Temperature 99.9 F H 100.0 F H 99.9 F H Pulse Rate 69 68 67 Respiratory Rate 15 15 15 Blood Pressure 135/72 122/72 119/71 Pulse Oximetry 100 97 98 04/12/18 07:15 04/12/18 07:30 04/12/18 07:45 Temperature 99.9 F H 99.9 F H 99.9 F H Pulse Rate 67 68 67 Respiratory Rate 15 15 15 Blood Pressure 122/71 119/70 118/71 Pulse Oximetry 97 98 99 04/12/18 08:00 04/12/18 08:15 04/12/18 08:30 Temperature 99.9 F H 99.9 F H 99.9 F H Pulse Rate 72 68 67 Respiratory Rate 15 15 15 Blood Pressure 120/76 119/66 117/66 Pulse Oximetry 97 97 98 04/12/18 08:45 04/12/18 09:00 04/12/18 09:30 Temperature 99.9 F H 99.9 F H 100.0 F H Pulse Rate 67 64 67 Respiratory Rate 15 15 13 Blood Pressure 118/66 115/65 125/73 Pulse Oximetry 97 98 97 04/12/18 09:31 04/12/18 09:45 04/12/18 10:00 Temperature 99.9 F H 99.7 F H Pulse Rate 73 87 93 H Respiratory Rate 18 17 19 Blood Pressure 163/79 H 153/78 H Pulse Oximetry 97 95 94 L 04/12/18 10:15 04/12/18 10:30 04/12/18 10:45 Temperature 99.3 F 99.0 F 98.8 F Pulse Rate 91 H 92 H 90 Respiratory Rate 19 19 16 Blood Pressure 153/84 H 152/86 H 146/79 H Pulse Oximetry 94 L 94 L 95 04/12/18 11:00 04/12/18 11:15 04/12/18 11:30 Temperature 98.6 F 98.4 F 98.4 F Pulse Rate 95 H 95 H 90 Respiratory Rate 17 18 18 Blood Pressure 154/81 H 145/77 H 147/80 H Pulse Oximetry 94 L 94 L 94 L 04/12/18 11:45 04/12/18 12:00 04/12/18 12:12 Temperature 98.2 F 98.2 F Pulse Rate 91 H 81 Respiratory Rate 16 22 15 Blood Pressure 147/78 H 123/71 Pulse Oximetry 95 95 04/12/18 12:13 04/12/18 12:15 04/12/18 12:30 Temperature 98.2 F 98.2 F Pulse Rate 81 77 68 Respiratory Rate 15 15 15 Blood Pressure 114/69 85/52 L Pulse Oximetry 95 97 04/12/18 12:45 04/12/18 12:58 04/12/18 13:00 Temperature 98.4 F 98.6 F 98.6 F Pulse Rate 64 62 63 Respiratory Rate 15 15 15 Blood Pressure 82/53 L 99/63 L 97/59 L Pulse Oximetry 98 99 99 04/12/18 13:15 04/12/18 13:30 04/12/18 13:45 Temperature 98.6 F 98.6 F 98.6 F Pulse Rate 63 62 65 Respiratory Rate 15 15 15 Blood Pressure 119/68 113/63 154/72 H Pulse Oximetry 98 99 98 04/12/18 14:00 04/12/18 14:15 04/12/18 14:30 Temperature 98.4 F 98.4 F 98.4 F Pulse Rate 65 64 64 Respiratory Rate 15 15 15 Blood Pressure 140/80 146/83 H 148/83 H Pulse Oximetry 99 99 99 04/12/18 15:00 04/12/18 15:15 04/12/18 15:30 Temperature 98.4 F 98.4 F 98.4 F Pulse Rate 64 66 70 Respiratory Rate 15 15 15 Blood Pressure 145/70 H 139/69 139/77 Pulse Oximetry 98 98 95 04/12/18 15:45 04/12/18 16:00 04/12/18 17:09 Temperature 98.8 F 98.8 F Pulse Rate 76 68 Respiratory Rate 15 15 15 Blood Pressure 131/69 116/66 Pulse Oximetry 95 100 98 04/12/18 17:11 Temperature Pulse Rate 63 Respiratory Rate 15 Blood Pressure Pulse Oximetry Intake & Output 04/12/18 04/12/18 04/13/18 06:59 18:59 06:59 Intake Total 2815 / 2815 1949 Output Total 750 / 750 Balance 2064 / 2064 Weight 85.8 kg Intake: IV 2014 1550 / 1550 Precedex Inj 1,000 MCG In NS 250 / 250 250 / 250 Inj 240 ML @ 0.2 MCG/KG/HR 4.31 mls/hr IV.CONT TITRATE PRN Rx# :[id number] D5W/1/2 NS Inj 1,000 ML @ 84 1000 / 1000 1000 / 1000 mls/hr IV.CONT .[id number] [facility] Rx# :[id number] Ofirmev Inj 1,000 mg In 100 ml 100 / 100 @ 400 mls/hr IV.SIG Q6H [facility] Rx# :[id number] Mycamine Inj 150 MG In NS Inj 100 / 100 100 ML @ 100 mls/hr IV.SIG Q24H [facility] Rx#:[id number] Zosyn 2.25 GM Premix 2.25 gm In 150 / 150 100 / 100 50 ml @ 100 mls/hr IV.SIG Q6H [facility] Rx#:[id number] KCl 40 mEq Premix Inj 40 meq In 100 / 100 100 ml @ 25 mls/hr IV.SIG UNSCH PRN Rx#:[id number] Vancomycin Inj 1,500 MG In NS 515 / 515 Inj 500 ML @ 250 mls/hr IV.SIG ONCE ONE Rx#:[id number] Water Bolus Amount 400 / 400 Free Water Amount 400 / 400 400 / 400 Output: Urine Amount (Catheter) 700 / 700 Indwelling Urethral Catheter 700 / 700 Gastric Drainage 50 / 50 Orogastric Tube 50 / 50 Other: Date of Last Bowel Movement 04/12/18 04/12/18 # Incontinent Bowel Movements 1 - Urinary Catheter Management Indwelling Urethral Catheter Cath placed during this visit: no <Annamarie Srivastava - Last Filed: 04/12/18 19:11> Results - Labs CBC & Chem 7: 04/12/18 04:25 04/12/18 04:25 Laboratory Results - last 24 hr 04/05/18 04/11/18 04/12/18 10:36 18:00 00:50 WBC RBC Hgb Hct MCV MCH MCHC RDW Plt Count MPV Neut % (Auto) Lymph % (Auto) [place] % (Auto) Eos % (Auto) Baso % (Auto) Neut # (Auto) Lymph # (Auto) [place] # (Auto) Eos # (Auto) Baso # (Auto) WBC Differential Differential Comment PT INR Sodium Potassium Chloride Carbon Dioxide Anion Gap BUN Creatinine Estimated GFR Random Glucose Calcium Phosphorus Magnesium Total Bilirubin AST ALT Alkaline Phosphatase Ammonia Total Protein Albumin Amylase BAL Total Volume 23.0 BAL RBC 450 BAL Nucleated 403.650 H BAL Neutrophils Not Reportable BAL White & Oth Cells 07793 BAL Diff Comment Stl C.difficile DNA Amp Negative St C. diff Tox Epid 027 Negative Acetylchol Rcpt Bind Ab Less than 0.30 04/12/18 04/12/18 04/12/18 04:25 04:25 04:25 WBC 20.8 H RBC 3.47 L Hgb 10.9 L Hct 32.5 L MCV 93.7 MCH 31.3 MCHC 33.4 RDW 15.2 Plt Count 282 MPV 8.6 Neut % (Auto) 91.8 H Lymph % (Auto) 3.7 L [place] % (Auto) 3.8 Eos % (Auto) 0.5 Baso % (Auto) 0.2 Neut # (Auto) 19.1 H Lymph # (Auto) 0.8 L [place] # (Auto) 0.8 Eos # (Auto) 0.1 Baso # (Auto) 0.0 WBC Differential . Differential Comment Auto diff final PT 11.6 INR 1.1 Sodium 151 H Potassium 3.4 L Chloride 116 H Carbon Dioxide 28.9 Anion Gap 6 BUN 44 H Creatinine 1.35 H Estimated GFR 53 L Random Glucose 132 H Calcium 8.8 D Phosphorus 3.2 D Magnesium 2.6 H D Total Bilirubin 1.1 H AST 46 H ALT 127 H Alkaline Phosphatase 68 Ammonia Total Protein 6.3 L D Albumin 2.7 L D Amylase 177 H BAL Total Volume BAL RBC BAL Nucleated BAL Neutrophils BAL White & Oth Cells BAL Diff Comment Stl C.difficile DNA Amp St C. diff Tox Epid 027 Acetylchol Rcpt Bind Ab 04/12/18 04:25 WBC RBC Hgb Hct MCV MCH MCHC RDW Plt Count MPV Neut % (Auto) Lymph % (Auto) [place] % (Auto) Eos % (Auto) Baso % (Auto) Neut # (Auto) Lymph # (Auto) [place] # (Auto) Eos # (Auto) Baso # (Auto) WBC Differential Differential Comment PT INR Sodium Potassium Chloride Carbon Dioxide Anion Gap BUN Creatinine Estimated GFR Random Glucose Calcium Phosphorus Magnesium Total Bilirubin AST ALT Alkaline Phosphatase Ammonia 27 Total Protein Albumin Amylase BAL Total Volume BAL RBC BAL Nucleated BAL Neutrophils BAL White & Oth Cells BAL Diff Comment Stl C.difficile DNA Amp St C. diff Tox Epid 027 Acetylchol Rcpt Bind Ab Microbiology 04/10/18 18:45 Sputum - Endotracheal Gram Stain - Final 04/10/18 18:45 Sputum - Endotracheal Sputum Culture - Final Rare growth normal respiratory giovanni 04/11/18 18:00 Bronchial - Bronchial Gram Stain - Final 04/11/18 18:15 Blood - Peripheral Aerobic Blood Culture - Preliminary No growth in 1 day 04/11/18 18:15 Blood - Peripheral Anaerobic Blood Culture - Preliminary No growth in 1 day 04/11/18 18:00 Blood - Peripheral Aerobic Blood Culture - Preliminary No growth in 1 day 04/11/18 18:00 Blood - Peripheral Anaerobic Blood Culture - Preliminary No growth in 1 day 04/10/18 17:45 Blood - Peripheral Aerobic Blood Culture - Preliminary No growth in 2 days 04/10/18 17:45 Blood - Peripheral Anaerobic Blood Culture - Preliminary No growth in 2 days 04/10/18 17:50 Blood - Peripheral Aerobic Blood Culture - Preliminary No growth in 2 days 04/10/18 17:50 Blood - Peripheral Anaerobic Blood Culture - Preliminary No growth in 2 days 04/12/18 00:50 Stool Stool for WBCs - Final Rare WBC's 04/10/18 18:45 Catheterized Urine Urine Culture - Final No growth in 48 hours 04/11/18 09:25 Sputum - Endotracheal Gram Stain - Final - Imaging Impressions Chest CT 04/11/18 00:00 CONCLUSION: 1. Patchy nodular opacities in the right lower lobe coalescing posteriorly most consistent with an infectious etiology such as bronchopneumonia. 2. Near complete left lower lobe collapse and dense airspace consolidation in the posterior right lower lobe. Differential considerations include aspiration. 3. Coronary artery cavitations. Abdomen/Pelvis CT 04/11/18 13:06 CONCLUSION: 1. Bilateral lower lobe consolidations left greater than right. Distended small and large bowel without evidence of wall thickening or obstruction. NG tube coiled within the stomach. Chest X-Ray 04/11/18 17:58 CONCLUSION: 1. Stable tubes and lines. 2. No significant pneumothorax. 3. Redemonstration of subtle right upper lobe patchy airspace disease and bilateral lower lobe pleural-parenchymal opacities. Chest X-Ray 04/12/18 06:00 CONCLUSION: Support apparatus in good position. Basilar airspace consolidation in the lungs. Abdomen X-Ray 04/12/18 08:00 CONCLUSION: NG coiled in stomach. Persistent gaseous distention of bowel with proximal right colon measuring just over 11 cm in diameter. This is similar to prior exam. <Sammi Delgado - Last Filed: 04/12/18 12:50> - Labs CBC & Chem 7: 04/12/18 04:25 04/12/18 04:25 Laboratory Results - last 24 hr 04/05/18 04/11/18 04/12/18 10:36 18:00 00:50 WBC RBC Hgb Hct MCV MCH MCHC RDW Plt Count MPV Neut % (Auto) Lymph % (Auto) [place] % (Auto) Eos % (Auto) Baso % (Auto) Neut # (Auto) Lymph # (Auto) [place] # (Auto) Eos # (Auto) Baso # (Auto) WBC Differential Differential Comment PT INR Sodium Potassium Chloride Carbon Dioxide Anion Gap BUN Creatinine Estimated GFR Random Glucose Calcium Phosphorus Magnesium Total Bilirubin AST ALT Alkaline Phosphatase Ammonia Total Protein Albumin Amylase BAL Total Volume 23.0 BAL RBC 450 BAL Nucleated 403.650 H BAL Neutrophils Not Reportable BAL White & Oth Cells 14809 BAL Diff Comment Stl C.difficile DNA Amp Negative St C. diff Tox Epid 027 Negative Acetylchol Rcpt Bind Ab Less than 0.30 04/12/18 04/12/18 04/12/18 04:25 04:25 04:25 WBC 20.8 H RBC 3.47 L Hgb 10.9 L Hct 32.5 L MCV 93.7 MCH 31.3 MCHC 33.4 RDW 15.2 Plt Count 282 MPV 8.6 Neut % (Auto) 91.8 H Lymph % (Auto) 3.7 L [place] % (Auto) 3.8 Eos % (Auto) 0.5 Baso % (Auto) 0.2 Neut # (Auto) 19.1 H Lymph # (Auto) 0.8 L [place] # (Auto) 0.8 Eos # (Auto) 0.1 Baso # (Auto) 0.0 WBC Differential . Differential Comment Auto diff final PT 11.6 INR 1.1 Sodium 151 H Potassium 3.4 L Chloride 116 H Carbon Dioxide 28.9 Anion Gap 6 BUN 44 H Creatinine 1.35 H Estimated GFR 53 L Random Glucose 132 H Calcium 8.8 D Phosphorus 3.2 D Magnesium 2.6 H D Total Bilirubin 1.1 H AST 46 H ALT 127 H Alkaline Phosphatase 68 Ammonia Total Protein 6.3 L D Albumin 2.7 L D Amylase 177 H BAL Total Volume BAL RBC BAL Nucleated BAL Neutrophils BAL White & Oth Cells BAL Diff Comment Stl C.difficile DNA Amp St C. diff Tox Epid 027 Acetylchol Rcpt Bind Ab 04/12/18 04:25 WBC RBC Hgb Hct MCV MCH MCHC RDW Plt Count MPV Neut % (Auto) Lymph % (Auto) [place] % (Auto) Eos % (Auto) Baso % (Auto) Neut # (Auto) Lymph # (Auto) [place] # (Auto) Eos # (Auto) Baso # (Auto) WBC Differential Differential Comment PT INR Sodium Potassium Chloride Carbon Dioxide Anion Gap BUN Creatinine Estimated GFR Random Glucose Calcium Phosphorus Magnesium Total Bilirubin AST ALT Alkaline Phosphatase Ammonia 27 Total Protein Albumin Amylase BAL Total Volume BAL RBC BAL Nucleated BAL Neutrophils BAL White & Oth Cells BAL Diff Comment Stl C.difficile DNA Amp St C. diff Tox Epid 027 Acetylchol Rcpt Bind Ab Microbiology 04/12/18 00:50 Stool Enteric Pathogens (PCR) - Final No enteric pathogens detected by PCR (No Salmonella sp., Shigella sp., Campylobacter sp., Yersinia enterocolitica, Vibrio sp., Norovirus, or EHEC (Shiga Toxin 1 or Shiga Toxin 2) detected. 04/11/18 18:00 Bronchial - Bronchial Gram Stain - Final 04/11/18 18:00 Bronchial - Bronchial Bronchial Culture - Preliminary Heavy growth normal respiratory giovanni at 24 hours 04/11/18 09:25 Sputum - Endotracheal Gram Stain - Final 04/11/18 09:25 Sputum - Endotracheal Sputum Culture - Preliminary Heavy growth normal respiratory giovanni at 24 hours 04/10/18 18:45 Sputum - Endotracheal Gram Stain - Final 04/10/18 18:45 Sputum - Endotracheal Sputum Culture - Final Rare growth normal respiratory giovanni 04/11/18 18:15 Blood - Peripheral Aerobic Blood Culture - Preliminary No growth in 1 day 04/11/18 18:15 Blood - Peripheral Anaerobic Blood Culture - Preliminary No growth in 1 day 04/11/18 18:00 Blood - Peripheral Aerobic Blood Culture - Preliminary No growth in 1 day 04/11/18 18:00 Blood - Peripheral Anaerobic Blood Culture - Preliminary No growth in 1 day 04/10/18 17:45 Blood - Peripheral Aerobic Blood Culture - Preliminary No growth in 2 days 04/10/18 17:45 Blood - Peripheral Anaerobic Blood Culture - Preliminary No growth in 2 days 04/10/18 17:50 Blood - Peripheral Aerobic Blood Culture - Preliminary No growth in 2 days 04/10/18 17:50 Blood - Peripheral Anaerobic Blood Culture - Preliminary No growth in 2 days 04/12/18 00:50 Stool Stool for WBCs - Final Rare WBC's 04/10/18 18:45 Catheterized Urine Urine Culture - Final No growth in 48 hours - Imaging Impressions Chest X-Ray 04/12/18 06:00 CONCLUSION: Support apparatus in good position. Basilar airspace consolidation in the lungs. Abdomen X-Ray 04/12/18 08:00 CONCLUSION: NG coiled in stomach. Persistent gaseous distention of bowel with proximal right colon measuring just over 11 cm in diameter. This is similar to prior exam. <Annamarie Srivastava - Last Filed: 04/12/18 19:11> Assessment and Plan (1) Ileus Status: Acute Code(s): K56.7 - Ileus, unspecified - Plan This patient is a 67-year-old male with past medical history significant for gastroesophageal reflux disease, hyperlipidemia and thyroid disease. Surgical history significant for inguinal hernia repair, microdiscectomy and bilateral Lasix surgery. Patient presented to [facility] emergency room on March 31, 2018. At that time, patient was post microdiscectomy on 02/13/2018, C5 through C6. According to his , 2-3 days postoperatively, patient began to not feel well. Noted shortness of breath with generalized weakness. Upon arrival to ED, patient was found to be in severe respiratory distress and was intubated. Patient presently being cared for in the intensive care setting. Orogastric tube placed for tube feedings. At this time orogastric tube attached to low intermittent wall suction. Patient unable to tolerate tube feedings for 2 days with increasing abdominal distention. CT reveals dilated loops of small and large bowel. Our service has been consulted to evaluate patient for ileus. Information comprising history of present illness obtained from patient's spouse. She endorses that patient has history of gastric reflux disease and takes Protonix 40 mg p.o. daily ,sometimes as needed. She states patient eats a regular diet and will experience occasional symptoms of acid reflux. Of note, she states patient had been taking 800 mg ibuprofen daily for neck pain prior to microdiscectomy. She states EGD and colonoscopy performed in 2015, to her recollection EGD revealed gastritis and colonoscopy which yielded benign polyp. Patient presently having loose brown stools. Orogastric tube drainage moderate amount of dark green gastric content. Ileus Transaminitis Gastroesophageal reflux disease Onset 2 days, abdominal distention. Orogastric tube with 600 mL's dark green gastric content in collection container. 04/11/2018 CT revealed the following : . Bilateral lower lobe consolidations left greater than right. Distended small and large bowel without evidence of wall thickening or obstruction. NG tube coiled within the stomach. -WBC 24.6 hemoglobin 12.4 hematocrit 37.5 -Total bilirubin 1.2 AST 74 ALT 180 alk phos 78 ammonia 25 amylase 369 04/12/2018 Ileus Transaminitis KUB revealed the following: NG coiled in stomach. Persistent gaseous distention of bowel with proximal right colon measuring just over 11 cm in diameter. This is similar to prior exam. -WBC 20.8 hemoglobin 10.9 hematocrit 32.5 -Total bilirubin 1.1 AST 46 ALT 127 alk phos 68 trending downwards -Ammonia 27 -Amylase 177 trending down Abdomen distended, slightly softer. Estimated 50 cc dark green gastric content in drainage container. Orogastric tube to low intermittent wall suction Spoke with patient's nurse regarding initiation of administration of lactulose and MiraLAX. Plan -N.p.o. -Orogastric tube to low intermittent wall suction -Antiemetics as per attending -Monitor labs -Bowel regimen -KUB in the a.m. -Supportive care -Further recommendations to follow This patient has been seen by myself and Dr. Srivastava that this note is written on his behalf - Attending Attestation Dr. Srivastava <Sammi Delgado - Last Filed: 04/12/18 12:50> (1) Ileus Status: Acute Code(s): K56.7 - Ileus, unspecified - Plan Patient was seen and examined, more awake, able to carry conversation, he had a bowel movement, abdomen less tender, will continue bowel regimen for now <Annamarie Srivastava - Last Filed: 04/12/18 19:11>
[2018-04-12] MEDS: Sodium Chloride 0.45 % Inj 1,000 ML IV.CONT SCH (15:07)
[2018-04-12] MEDS: Micafungin Inj 150 MG in Sodium Chlor 0.9% Inj 100 ML IV.SIG SCH (15:08)
--- NOTE | 2018-04-12 16:23 | P.PNNP ---
Subjective Interval history: Continues to be intubated. Now on pressors. In no acute distress at the moment. <Eula Tony - Last Filed: 04/12/18 16:12> Physical Exam Vital signs: Vital Signs 04/11/18 16:15 04/11/18 16:30 04/11/18 16:43 Temperature 99.7 F H 99.7 F H Pulse Rate 64 64 63 Respiratory Rate 15 15 15 Blood Pressure 140/81 144/82 H Pulse Oximetry 99 99 99 04/11/18 16:45 04/11/18 17:00 04/11/18 17:15 Temperature 99.7 F H 99.7 F H 99.7 F H Pulse Rate 63 65 63 Respiratory Rate 15 15 15 Blood Pressure 145/84 H 122/69 123/73 Pulse Oximetry 99 99 99 04/11/18 17:30 04/11/18 17:38 04/11/18 17:41 Temperature 99.7 F H 99.9 F H 99.9 F H Pulse Rate 62 63 62 Respiratory Rate 15 15 15 Blood Pressure 122/73 123/72 119/67 Pulse Oximetry 99 99 99 04/11/18 17:44 04/11/18 17:47 04/11/18 17:50 Temperature 99.9 F H 99.9 F H 99.9 F H Pulse Rate 63 62 63 Respiratory Rate 15 15 15 Blood Pressure 123/68 117/71 125/74 Pulse Oximetry 99 99 99 04/11/18 17:53 04/11/18 17:56 04/11/18 17:59 Temperature 99.9 F H 99.9 F H 99.9 F H Pulse Rate 66 66 65 Respiratory Rate 15 15 15 Blood Pressure 134/78 123/75 123/77 Pulse Oximetry 100 99 99 04/11/18 18:00 04/11/18 18:02 04/11/18 18:04 Temperature 99.9 F H 99.9 F H 99.9 F H Pulse Rate 64 64 63 Respiratory Rate 15 15 15 Blood Pressure 123/72 Pulse Oximetry 99 99 99 04/11/18 18:05 04/11/18 19:17 04/11/18 19:20 Temperature 100.0 F H Pulse Rate 59 L 59 L Respiratory Rate 15 15 Blood Pressure 122/72 117/75 Pulse Oximetry 99 99 04/11/18 19:23 04/11/18 19:26 04/11/18 19:29 Temperature 100.0 F H 100.0 F H 100.0 F H Pulse Rate 59 L 59 L 59 L Respiratory Rate 15 15 15 Blood Pressure 123/78 125/74 123/77 Pulse Oximetry 99 99 99 04/11/18 19:32 04/11/18 19:35 04/11/18 19:38 Temperature 100.2 F H 100.2 F H 100.2 F H Pulse Rate 59 L 59 L 59 L Respiratory Rate 15 15 15 Blood Pressure 125/74 127/70 110/68 Pulse Oximetry 99 99 99 04/11/18 19:41 04/11/18 19:44 04/11/18 19:47 Temperature 100.2 F H 100.2 F H 100.2 F H Pulse Rate 59 L 60 60 Respiratory Rate 15 15 15 Blood Pressure 115/73 119/74 117/73 Pulse Oximetry 99 99 99 04/11/18 19:50 04/11/18 19:53 04/11/18 19:55 Temperature 100.2 F H 100.2 F H Pulse Rate 59 L 59 L 60 Respiratory Rate 15 15 15 Blood Pressure 122/75 116/72 Pulse Oximetry 99 99 99 04/11/18 19:56 04/11/18 19:59 04/11/18 20:00 Temperature 100.2 F H 100.2 F H 100.2 F H Pulse Rate 60 62 65 Respiratory Rate 15 16 15 Blood Pressure 122/70 121/70 Pulse Oximetry 99 99 99 04/11/18 20:15 04/11/18 20:30 04/11/18 20:45 Temperature 100.2 F H 100.2 F H 100.4 F H Pulse Rate 64 74 71 Respiratory Rate 15 15 15 Blood Pressure 115/69 116/74 115/67 Pulse Oximetry 99 99 99 04/11/18 21:00 04/11/18 21:15 04/11/18 21:30 Temperature 100.4 F H 100.6 F H 100.6 F H Pulse Rate 69 70 65 Respiratory Rate 15 15 15 Blood Pressure 120/68 110/68 102/62 Pulse Oximetry 99 99 99 04/11/18 21:45 04/11/18 22:00 04/11/18 22:10 Temperature 100.8 F H 100.9 F H Pulse Rate 64 68 67 Respiratory Rate 15 15 Blood Pressure 98/60 L 115/68 Pulse Oximetry 99 99 04/11/18 22:15 04/11/18 22:29 04/11/18 22:30 Temperature 100.9 F H 100.9 F H 100.9 F H Pulse Rate 67 70 69 Respiratory Rate 15 15 15 Blood Pressure 117/66 118/70 Pulse Oximetry 99 99 99 04/11/18 22:45 04/11/18 23:00 04/11/18 23:15 Temperature 101.1 F H 101.1 F H 101.1 F H Pulse Rate 71 66 63 Respiratory Rate 15 15 15 Blood Pressure 129/75 115/69 111/64 Pulse Oximetry 99 99 99 04/11/18 23:30 04/11/18 23:45 04/12/18 00:00 Temperature 101.3 F H 101.3 F H 101.3 F H Pulse Rate 62 63 66 Respiratory Rate 15 15 15 Blood Pressure 112/66 111/67 113/71 Pulse Oximetry 99 99 99 04/12/18 00:15 04/12/18 00:30 04/12/18 00:45 Temperature 101.1 F H 100.9 F H Pulse Rate 65 69 81 Respiratory Rate 15 15 18 Blood Pressure 117/70 114/71 134/70 Pulse Oximetry 99 99 96 04/12/18 01:00 04/12/18 01:15 04/12/18 01:30 Temperature 100.9 F H 100.8 F H 100.8 F H Pulse Rate 76 75 75 Respiratory Rate 15 15 15 Blood Pressure 112/63 132/73 124/75 Pulse Oximetry 95 97 97 04/12/18 01:45 04/12/18 02:00 04/12/18 02:15 Temperature Pulse Rate 71 71 70 Respiratory Rate 15 15 15 Blood Pressure 123/72 122/69 118/68 Pulse Oximetry 97 97 97 04/12/18 02:30 04/12/18 02:45 04/12/18 03:00 Temperature Pulse Rate 69 68 68 Respiratory Rate 15 15 15 Blood Pressure 121/71 122/73 122/72 Pulse Oximetry 97 98 98 04/12/18 03:15 04/12/18 03:30 04/12/18 03:45 Temperature Pulse Rate 71 67 68 Respiratory Rate 15 15 15 Blood Pressure 126/76 125/74 126/73 Pulse Oximetry 97 99 99 04/12/18 04:00 04/12/18 04:10 04/12/18 04:15 Temperature 100.8 F H Pulse Rate 67 69 69 Respiratory Rate 15 15 Blood Pressure 125/76 131/80 Pulse Oximetry 99 100 04/12/18 04:30 04/12/18 04:45 04/12/18 04:57 Temperature Pulse Rate 67 68 67 Respiratory Rate 15 15 15 Blood Pressure 136/80 121/70 Pulse Oximetry 99 98 97 04/12/18 05:00 04/12/18 05:15 04/12/18 05:30 Temperature 100.6 F H 100.6 F H Pulse Rate 70 70 70 Respiratory Rate 15 15 15 Blood Pressure 131/72 120/64 118/69 Pulse Oximetry 100 95 95 04/12/18 05:45 04/12/18 06:00 04/12/18 06:09 Temperature Pulse Rate 71 68 66 Respiratory Rate 15 15 15 Blood Pressure 115/68 94/58 L 96/55 L Pulse Oximetry 95 96 97 04/12/18 06:15 04/12/18 06:30 04/12/18 06:45 Temperature 99.9 F H 100.0 F H Pulse Rate 66 69 68 Respiratory Rate 15 15 15 Blood Pressure 107/64 135/72 122/72 Pulse Oximetry 98 100 97 04/12/18 07:00 04/12/18 07:15 04/12/18 07:30 Temperature 99.9 F H 99.9 F H 99.9 F H Pulse Rate 67 67 68 Respiratory Rate 15 15 15 Blood Pressure 119/71 122/71 119/70 Pulse Oximetry 98 97 98 04/12/18 07:45 04/12/18 08:00 04/12/18 08:15 Temperature 99.9 F H 99.9 F H 99.9 F H Pulse Rate 67 72 68 Respiratory Rate 15 15 15 Blood Pressure 118/71 120/76 119/66 Pulse Oximetry 99 97 97 04/12/18 08:30 04/12/18 08:45 04/12/18 09:00 Temperature 99.9 F H 99.9 F H 99.9 F H Pulse Rate 67 67 64 Respiratory Rate 15 15 15 Blood Pressure 117/66 118/66 115/65 Pulse Oximetry 98 97 98 04/12/18 09:30 04/12/18 09:31 04/12/18 09:45 Temperature 100.0 F H 99.9 F H Pulse Rate 67 73 87 Respiratory Rate 13 18 17 Blood Pressure 125/73 163/79 H Pulse Oximetry 97 97 95 04/12/18 10:00 04/12/18 10:15 04/12/18 10:30 Temperature 99.7 F H 99.3 F 99.0 F Pulse Rate 93 H 91 H 92 H Respiratory Rate 19 19 19 Blood Pressure 153/78 H 153/84 H 152/86 H Pulse Oximetry 94 L 94 L 94 L 04/12/18 10:45 04/12/18 11:00 04/12/18 11:15 Temperature 98.8 F 98.6 F 98.4 F Pulse Rate 90 95 H 95 H Respiratory Rate 16 17 18 Blood Pressure 146/79 H 154/81 H 145/77 H Pulse Oximetry 95 94 L 94 L 04/12/18 11:30 04/12/18 11:45 04/12/18 12:00 Temperature 98.4 F 98.2 F 98.2 F Pulse Rate 90 91 H 81 Respiratory Rate 18 16 22 Blood Pressure 147/80 H 147/78 H 123/71 Pulse Oximetry 94 L 95 95 04/12/18 12:12 04/12/18 12:13 04/12/18 12:15 Temperature 98.2 F Pulse Rate 81 77 Respiratory Rate 15 15 15 Blood Pressure 114/69 Pulse Oximetry 95 04/12/18 12:30 04/12/18 12:45 04/12/18 12:58 Temperature 98.2 F 98.4 F 98.6 F Pulse Rate 68 64 62 Respiratory Rate 15 15 15 Blood Pressure 85/52 L 82/53 L 99/63 L Pulse Oximetry 97 98 99 04/12/18 13:00 04/12/18 13:15 04/12/18 13:30 Temperature 98.6 F 98.6 F 98.6 F Pulse Rate 63 63 62 Respiratory Rate 15 15 15 Blood Pressure 97/59 L 119/68 113/63 Pulse Oximetry 99 98 99 04/12/18 13:45 04/12/18 14:00 04/12/18 14:15 Temperature 98.6 F 98.4 F 98.4 F Pulse Rate 65 65 64 Respiratory Rate 15 15 15 Blood Pressure 154/72 H 140/80 146/83 H Pulse Oximetry 98 99 99 04/12/18 14:30 01/30/19 15:00 04/12/18 15:15 Temperature 98.4 F 98.4 F 98.4 F Pulse Rate 64 64 66 Respiratory Rate 15 15 15 Blood Pressure 148/83 H 145/70 H 139/69 Pulse Oximetry 99 98 98 04/12/18 15:30 04/12/18 15:45 04/12/18 16:00 Temperature 98.4 F 98.8 F 98.8 F Pulse Rate 70 76 68 Respiratory Rate 15 15 15 Blood Pressure 139/77 131/69 116/66 Pulse Oximetry 95 95 100 Intake & Output 04/11/18 04/12/18 04/12/18 18:59 06:59 18:59 Intake Total 1350 / 1350 2815 / 2815 1400 / 1400 Output Total 1175 / 1175 750 / 750 Balance 175 / 175 2065 / 2065 1400 / 1400 Weight 85.8 kg Intake: IV 550 / 550 2014 / 2014 1200 / 1200 Precedex Inj 1,000 MCG In NS 250 / 250 250 / 250 Inj 240 ML @ 0.2 MCG/KG/HR 4.31 mls/hr IV.CONT TITRATE PRN Rx# :[id number] D5W/1/2 NS Inj 1,000 ML @ 84 1000 / 1000 1000 / 1000 mls/hr IV.CONT .[id number] GIGI Rx# :[id number] Mycamine Inj 150 MG In NS Inj 100 / 100 100 ML @ 100 mls/hr IV.SIG Q24H GIGI Rx#:[id number] Zosyn 2.25 GM Premix 2.25 gm In 50 / 50 150 / 150 100 / 100 50 ml @ 100 mls/hr IV.SIG Q6H GIGI Rx#:[id number] KCl 40 mEq Premix Inj 40 meq In 100 / 100 100 ml @ 25 mls/hr IV.SIG UNSCH PRN Rx#:[id number] Vancomycin Inj 1,500 MG In NS 515 / 515 Inj 500 ML @ 250 mls/hr IV.SIG ONCE ONE Rx#:[id number] fentaNYL 10 mcg/mL Premix Drip 250 / 250 2,500 mcg In 250 ml @ 50 MCG/HR 5 mls/hr IV.SIG TITRATE PRN Rx #:[id number] Tube Feeding 0 / 0 Water Bolus Amount 400 / 400 400 / 400 Free Water Amount 400 / 400 400 / 400 200 / 200 Output: Urine Amount (Catheter) 1175 / 1175 700 / 700 Indwelling Urethral Catheter 1175 / 1175 700 / 700 Gastric Drainage 50 / 50 Orogastric Tube 50 / 50 Other: Date of Last Bowel Movement 04/11/18 04/12/18 04/12/18 # Incontinent Bowel Movements 3 1 Narrative: GENERAL: Currently intubated. SKIN: Warm and dry, intact, No lesions seen. HEAD: Normocephalic. EYES: No scleral icterus. No injection or drainage. Pupils are equal and reactive to light. NECK: Supple, trachea midline. No JVD or lymphadenopathy. CARDIOVASCULAR: Regular rate and rhythm without murmurs, gallops, or rubs. RESPIRATORY: Breath sounds equal bilaterally. No accessory muscle use. Breath sounds are clear bilaterally to auscultation. GASTROINTESTINAL: Abdomen distended. Hypoactive bowel sounds. BACK: Nontender without obvious deformity. No CVA tenderness. - Urinary Catheter Management Indwelling Urethral Catheter Cath placed during this visit: yes Reason for continuing: Hourly intake/output Insertion date: 04/10/18 Insertion time: 01:45 <Eula Tony - Last Filed: 04/12/18 16:12> Vital signs: Vital Signs 04/12/18 01:00 04/12/18 01:15 04/12/18 01:30 Temperature 100.9 F H 100.8 F H 100.8 F H Pulse Rate 76 75 75 Respiratory Rate 15 15 15 Blood Pressure 112/63 132/73 124/75 Pulse Oximetry 95 97 97 04/12/18 01:45 04/12/18 02:00 04/12/18 02:15 Temperature Pulse Rate 71 71 70 Respiratory Rate 15 15 15 Blood Pressure 123/72 122/69 118/68 Pulse Oximetry 97 97 97 04/12/18 02:30 04/12/18 02:45 04/12/18 03:00 Temperature Pulse Rate 69 68 68 Respiratory Rate 15 15 15 Blood Pressure 121/71 122/73 122/72 Pulse Oximetry 97 98 98 04/12/18 03:15 04/12/18 03:30 04/12/18 03:45 Temperature Pulse Rate 71 67 68 Respiratory Rate 15 15 15 Blood Pressure 126/76 125/74 126/73 Pulse Oximetry 97 99 99 04/12/18 04:00 04/12/18 04:10 04/12/18 04:15 Temperature 100.8 F H Pulse Rate 67 69 69 Respiratory Rate 15 15 Blood Pressure 125/76 131/80 Pulse Oximetry 99 100 04/12/18 04:30 04/12/18 04:45 04/12/18 04:57 Temperature Pulse Rate 67 68 67 Respiratory Rate 15 15 15 Blood Pressure 136/80 121/70 Pulse Oximetry 99 98 97 04/12/18 05:00 04/12/18 05:15 04/12/18 05:30 Temperature 100.6 F H 100.6 F H Pulse Rate 70 70 70 Respiratory Rate 15 15 15 Blood Pressure 131/72 120/64 118/69 Pulse Oximetry 100 95 95 04/12/18 05:45 04/12/18 06:00 04/12/18 06:09 Temperature Pulse Rate 71 68 66 Respiratory Rate 15 15 15 Blood Pressure 115/68 94/58 L 96/55 L Pulse Oximetry 95 96 97 04/12/18 06:15 04/12/18 06:30 04/12/18 06:45 Temperature 99.9 F H 100.0 F H Pulse Rate 66 69 68 Respiratory Rate 15 15 15 Blood Pressure 107/64 135/72 122/72 Pulse Oximetry 98 100 97 04/12/18 07:00 04/12/18 07:15 04/12/18 07:30 Temperature 99.9 F H 99.9 F H 99.9 F H Pulse Rate 67 67 68 Respiratory Rate 15 15 15 Blood Pressure 119/71 122/71 119/70 Pulse Oximetry 98 97 98 04/12/18 07:45 04/12/18 08:00 04/12/18 08:15 Temperature 99.9 F H 99.9 F H 99.9 F H Pulse Rate 67 72 68 Respiratory Rate 15 15 15 Blood Pressure 118/71 120/76 119/66 Pulse Oximetry 99 97 97 04/12/18 08:30 04/12/18 08:45 04/12/18 09:00 Temperature 99.9 F H 99.9 F H 99.9 F H Pulse Rate 67 67 64 Respiratory Rate 15 15 15 Blood Pressure 117/66 118/66 115/65 Pulse Oximetry 98 97 98 04/12/18 09:30 04/12/18 09:31 04/12/18 09:45 Temperature 100.0 F H 99.9 F H Pulse Rate 67 73 87 Respiratory Rate 13 18 17 Blood Pressure 125/73 163/79 H Pulse Oximetry 97 97 95 04/12/18 10:00 04/12/18 10:15 04/12/18 10:30 Temperature 99.7 F H 99.3 F 99.0 F Pulse Rate 93 H 91 H 92 H Respiratory Rate 19 19 19 Blood Pressure 153/78 H 153/84 H 152/86 H Pulse Oximetry 94 L 94 L 94 L 04/12/18 10:45 04/12/18 11:00 04/12/18 11:15 Temperature 98.8 F 98.6 F 98.4 F Pulse Rate 90 95 H 95 H Respiratory Rate 16 17 18 Blood Pressure 146/79 H 154/81 H 145/77 H Pulse Oximetry 95 94 L 94 L 04/12/18 11:30 04/12/18 11:45 04/12/18 12:00 Temperature 98.4 F 98.2 F 98.2 F Pulse Rate 90 91 H 81 Respiratory Rate 18 16 22 Blood Pressure 147/80 H 147/78 H 123/71 Pulse Oximetry 94 L 95 95 04/12/18 12:12 04/12/18 12:13 04/12/18 12:15 Temperature 98.2 F Pulse Rate 81 77 Respiratory Rate 15 15 15 Blood Pressure 114/69 Pulse Oximetry 95 04/12/18 12:30 04/12/18 12:45 04/12/18 12:58 Temperature 98.2 F 98.4 F 98.6 F Pulse Rate 68 64 62 Respiratory Rate 15 15 15 Blood Pressure 85/52 L 82/53 L 99/63 L Pulse Oximetry 97 98 99 04/12/18 13:00 04/12/18 13:15 04/12/18 13:30 Temperature 98.6 F 98.6 F 98.6 F Pulse Rate 63 63 62 Respiratory Rate 15 15 15 Blood Pressure 97/59 L 119/68 113/63 Pulse Oximetry 99 98 99 04/12/18 13:45 04/12/18 14:00 04/12/18 14:15 Temperature 98.6 F 98.4 F 98.4 F Pulse Rate 65 65 64 Respiratory Rate 15 15 15 Blood Pressure 154/72 H 140/80 146/83 H Pulse Oximetry 98 99 99 04/12/18 14:30 04/12/18 15:00 04/12/18 15:15 Temperature 98.4 F 98.4 F 98.4 F Pulse Rate 64 64 66 Respiratory Rate 15 15 15 Blood Pressure 148/83 H 145/70 H 139/69 Pulse Oximetry 99 98 98 04/12/18 15:30 04/12/18 15:45 04/12/18 16:00 Temperature 98.4 F 98.8 F 98.8 F Pulse Rate 70 76 68 Respiratory Rate 15 15 15 Blood Pressure 139/77 131/69 116/66 Pulse Oximetry 95 95 100 04/12/18 16:15 04/12/18 16:30 04/12/18 16:45 Temperature 99.0 F 99.0 F 99.0 F Pulse Rate 65 62 61 Respiratory Rate 15 15 15 Blood Pressure 104/63 101/60 107/64 Pulse Oximetry 96 96 97 04/12/18 17:00 04/12/18 17:09 04/12/18 17:11 Temperature 99.1 F Pulse Rate 64 63 Respiratory Rate 15 15 15 Blood Pressure 110/68 Pulse Oximetry 98 98 04/12/18 17:15 04/12/18 17:33 04/12/18 17:45 Temperature 99.1 F 99.1 F 99.1 F Pulse Rate 64 63 63 Respiratory Rate 15 15 15 Blood Pressure 109/67 132/75 108/68 Pulse Oximetry 98 100 97 04/12/18 18:00 04/12/18 18:15 04/12/18 18:30 Temperature 99.1 F 99.1 F 99.0 F Pulse Rate 83 75 73 Respiratory Rate 32 H 15 15 Blood Pressure 169/84 H 142/82 H 141/86 H Pulse Oximetry 95 97 98 04/12/18 18:45 04/12/18 19:00 04/12/18 19:15 Temperature 99.0 F 98.8 F 98.8 F Pulse Rate 71 71 72 Respiratory Rate 15 15 15 Blood Pressure 137/87 143/90 H 142/85 H Pulse Oximetry 99 100 97 04/12/18 19:30 04/12/18 19:45 04/12/18 20:00 Temperature 98.8 F 98.8 F 98.8 F Pulse Rate 65 64 63 Respiratory Rate 15 15 15 Blood Pressure 129/81 127/80 118/74 Pulse Oximetry 97 98 98 04/12/18 20:02 04/12/18 20:15 04/12/18 20:30 Temperature 99.0 F 99.0 F Pulse Rate 64 67 66 Respiratory Rate 15 15 15 Blood Pressure 131/83 132/85 Pulse Oximetry 100 98 98 04/12/18 20:45 04/12/18 21:00 04/12/18 21:15 Temperature 99.0 F 99.0 F 99.0 F Pulse Rate 67 68 65 Respiratory Rate 15 15 15 Blood Pressure 140/82 123/70 118/73 Pulse Oximetry 99 98 100 04/12/18 21:30 04/12/18 21:45 04/12/18 22:00 Temperature 99.0 F 99.1 F 99.1 F Pulse Rate 61 59 L 59 L Respiratory Rate 15 15 15 Blood Pressure 102/60 97/57 L 97/63 L Pulse Oximetry 99 99 99 04/12/18 22:15 04/12/18 22:30 04/12/18 22:45 Temperature 99.1 F 99.1 F 99.1 F Pulse Rate 62 65 83 Respiratory Rate 15 15 24 Blood Pressure 103/65 111/71 140/71 Pulse Oximetry 98 100 97 04/12/18 23:00 04/12/18 23:11 04/12/18 23:15 Temperature 99.1 F 99.0 F Pulse Rate 76 67 66 Respiratory Rate 15 15 15 Blood Pressure 140/83 115/68 Pulse Oximetry 98 100 04/12/18 23:30 04/12/18 23:45 04/13/18 00:00 Temperature 99.0 F 99.0 F 98.8 F Pulse Rate 62 61 61 Respiratory Rate 15 15 15 Blood Pressure 104/61 106/64 103/66 Pulse Oximetry 99 99 99 04/13/18 00:11 04/13/18 00:15 04/13/18 00:30 Temperature 98.8 F 98.8 F Pulse Rate 60 60 Respiratory Rate 15 15 15 Blood Pressure 105/66 107/65 Pulse Oximetry 100 100 100 Intake & Output 04/12/18 04/12/18 04/13/18 06:59 18:59 06:59 Intake Total 2815 / 2815 1950 / 1950 450 / 450 Output Total 750 / 750 825 / 825 Balance 2064 / 2064 1125 / 1125 450 / 450 Weight 85.8 kg Intake: IV 2014 1550 / 1550 250 / 250 Precedex Inj 1,000 MCG In NS 250 / 250 250 / 250 Inj 240 ML @ 0.2 MCG/KG/HR 4.31 mls/hr IV.CONT TITRATE PRN Rx# :[id number] D5W/1/2 NS Inj 1,000 ML @ 84 1000 / 1000 1000 / 1000 mls/hr IV.CONT .[id number] GIGI Rx# :[id number] Ofirmev Inj 1,000 mg In 100 ml 100 / 100 100 / 100 @ 400 mls/hr IV.SIG Q6H GIGI Rx# :[id number] Mycamine Inj 150 MG In NS Inj 100 / 100 100 / 100 100 ML @ 100 mls/hr IV.SIG Q24H GIGI Rx#:[id number] Zosyn 2.25 GM Premix 2.25 gm In 150 / 150 100 / 100 50 / 50 50 ml @ 100 mls/hr IV.SIG Q6H GIGI Rx#:[id number] KCl 40 mEq Premix Inj 40 meq In 100 / 100 100 ml @ 25 mls/hr IV.SIG UNSCH PRN Rx#:[id number] Vancomycin Inj 1,500 MG In NS 515 / 515 Inj 500 ML @ 250 mls/hr IV.SIG ONCE ONE Rx#:[id number] Water Bolus Amount 400 / 400 Free Water Amount 400 / 400 400 / 400 200 / 200 Output: Urine Amount (Catheter) 700 / 700 775 / 775 Indwelling Urethral Catheter 700 / 700 775 / 775 Gastric Drainage 50 / 50 50 / 50 Orogastric Tube 50 / 50 50 / 50 Other: Date of Last Bowel Movement 04/12/18 04/12/18 04/12/18 # Bowel Movements 1 # Incontinent Bowel Movements 1 1 - Urinary Catheter Management Indwelling Urethral Catheter Cath placed during this visit: no <ShannanSabenjamin - Last Filed: 04/13/18 00:55> Assessment and Plan - Assessment (1) BUDDY (acute kidney injury) Code(s): N17.9 - Acute kidney failure, unspecified Status: Acute Plan: Kidney insult began on the . Current creatinine is 1.35 from 2.69. Nonoliguric. Good urine output. Improving kidney function. Hypokalemic at 3.4 Lisinopril was started on the 22nd was stopped on the in light of acute kidney injury CTA of the chest was done the , which could have also been an insult to the kidneys. Echocardiogram revealed EF of 45% unknown etiology. Renal ultrasound negative for any obstructive etiology. Small cyst on right kidney which is stable. Fractional excretion of urine, 0.47%, prerenal. Likely contrast induced secondary to CTA. -We will keep following his BMP -Continue IV fluids -We will keep monitoring his renal function -Replace potassium, 40 mEq IV given today (2) Hypernatremia Code(s): E87.0 - Hyperosmolality and hypernatremia Status: Acute Plan: Sodium at 151 -Continue to monitor -Continue with D5 half normal saline at 84 ml/hr -Monitor BMP daily (3) Respiratory failure Code(s): J96.90 - Respiratory failure, unspecified, unspecified whether with hypoxia or hypercapnia Status: Acute Plan: With respiratory acidosis, Continues to be intubated, failed extubation on the , became somnolent, obtunded. Cuff leak yesterday, reintubated. -Management per critical care team (4) Leukocytosis Code(s): D72.829 - Elevated white blood cell count, unspecified Status: Acute - Plan WBCs slightly trended down to 20 Urine culture, blood cultures, sputum cultures no growth thus far. Bronchial wash done yesterday, cultures pending Not tolerating tube feedings, which have been discontinued. Per critical care note likely aspiration. GI on the case to manage ileus, n.p.o. -Management per critical care team <Eula Tony - Last Filed: 04/12/18 16:12> - Assessment (1) BUDDY (acute kidney injury) Code(s): N17.9 - Acute kidney failure, unspecified Status: Acute (2) Hypernatremia Code(s): E87.0 - Hyperosmolality and hypernatremia Status: Acute (3) Respiratory failure Code(s): J96.90 - Respiratory failure, unspecified, unspecified whether with hypoxia or hypercapnia Status: Acute (4) Leukocytosis Code(s): D72.829 - Elevated white blood cell count, unspecified Status: Acute - Attending Attestation Patient is seen and examined agree with above findings discussed care with the family. Discussed with MARY Forde and agree with assessment and plan. <Matilde Campbell - Last Filed: 04/13/18 00:55>
--- NOTE | 2018-04-12 19:21 | P.PN ---
Subjective Interval history: He is more stable today. On ventilator support rate of 15 and FiO2 of 45%. Family at bedside and he is awake and responds to questions. Moving all extremities. Renal functions have improved. Off tube feedings now and urine output is good. Physical Exam Vital signs: Vital Signs 04/11/18 19:20 04/11/18 19:23 04/11/18 19:26 Temperature 100.0 F H 100.0 F H Pulse Rate 59 L 59 L 59 L Respiratory Rate 15 15 15 Blood Pressure 117/75 123/78 125/74 Pulse Oximetry 99 99 99 04/11/18 19:29 04/11/18 19:32 04/11/18 19:35 Temperature 100.0 F H 100.2 F H 100.2 F H Pulse Rate 59 L 59 L 59 L Respiratory Rate 15 15 15 Blood Pressure 123/77 125/74 127/70 Pulse Oximetry 99 99 99 04/11/18 19:38 04/11/18 19:41 04/11/18 19:44 Temperature 100.2 F H 100.2 F H 100.2 F H Pulse Rate 59 L 59 L 60 Respiratory Rate 15 15 15 Blood Pressure 110/68 115/73 119/74 Pulse Oximetry 99 99 99 04/11/18 19:47 04/11/18 19:50 04/11/18 19:53 Temperature 100.2 F H 100.2 F H 100.2 F H Pulse Rate 60 59 L 59 L Respiratory Rate 15 15 15 Blood Pressure 117/73 122/75 116/72 Pulse Oximetry 99 99 99 04/11/18 19:55 04/11/18 19:56 04/11/18 19:59 Temperature 100.2 F H 100.2 F H Pulse Rate 60 60 62 Respiratory Rate 15 15 16 Blood Pressure 122/70 121/70 Pulse Oximetry 99 99 99 04/11/18 20:00 04/11/18 20:15 04/11/18 20:30 Temperature 100.2 F H 100.2 F H 100.2 F H Pulse Rate 65 64 74 Respiratory Rate 15 15 15 Blood Pressure 115/69 116/74 Pulse Oximetry 99 99 99 04/11/18 20:45 04/11/18 21:00 04/11/18 21:15 Temperature 100.4 F H 100.4 F H 100.6 F H Pulse Rate 71 69 70 Respiratory Rate 15 15 15 Blood Pressure 115/67 120/68 110/68 Pulse Oximetry 99 99 99 04/11/18 21:30 04/11/18 21:45 04/11/18 22:00 Temperature 100.6 F H 100.8 F H 100.9 F H Pulse Rate 65 64 68 Respiratory Rate 15 15 15 Blood Pressure 102/62 98/60 L 115/68 Pulse Oximetry 99 99 99 04/11/18 22:10 04/11/18 22:15 04/11/18 22:29 Temperature 100.9 F H 100.9 F H Pulse Rate 67 67 70 Respiratory Rate 15 15 Blood Pressure 117/66 Pulse Oximetry 99 99 04/11/18 22:30 04/11/18 22:45 04/11/18 23:00 Temperature 100.9 F H 101.1 F H 101.1 F H Pulse Rate 69 71 66 Respiratory Rate 15 15 15 Blood Pressure 118/70 129/75 115/69 Pulse Oximetry 99 99 99 04/11/18 23:15 04/11/18 23:30 04/11/18 23:45 Temperature 101.1 F H 101.3 F H 101.3 F H Pulse Rate 63 62 63 Respiratory Rate 15 15 15 Blood Pressure 111/64 112/66 111/67 Pulse Oximetry 99 99 99 04/12/18 00:00 04/12/18 00:15 04/12/18 00:30 Temperature 101.3 F H 101.1 F H Pulse Rate 66 65 69 Respiratory Rate 15 15 15 Blood Pressure 113/71 117/70 114/71 Pulse Oximetry 99 99 99 04/12/18 00:45 04/12/18 01:00 04/12/18 01:15 Temperature 100.9 F H 100.9 F H 100.8 F H Pulse Rate 81 76 75 Respiratory Rate 18 15 15 Blood Pressure 134/70 112/63 132/73 Pulse Oximetry 96 95 97 04/12/18 01:30 04/12/18 01:45 04/12/18 02:00 Temperature 100.8 F H Pulse Rate 75 71 71 Respiratory Rate 15 15 15 Blood Pressure 124/75 123/72 122/69 Pulse Oximetry 97 97 97 04/12/18 02:15 04/12/18 02:30 04/12/18 02:45 Temperature Pulse Rate 70 69 68 Respiratory Rate 15 15 15 Blood Pressure 118/68 121/71 122/73 Pulse Oximetry 97 97 98 04/12/18 03:00 04/12/18 03:15 04/12/18 03:30 Temperature Pulse Rate 68 71 67 Respiratory Rate 15 15 15 Blood Pressure 122/72 126/76 125/74 Pulse Oximetry 98 97 99 04/12/18 03:45 04/12/18 04:00 04/12/18 04:10 Temperature 100.8 F H Pulse Rate 68 67 69 Respiratory Rate 15 15 Blood Pressure 126/73 125/76 Pulse Oximetry 99 99 04/12/18 04:15 04/12/18 04:30 04/12/18 04:45 Temperature Pulse Rate 69 67 68 Respiratory Rate 15 15 15 Blood Pressure 131/80 136/80 121/70 Pulse Oximetry 100 99 98 04/12/18 04:57 04/12/18 05:00 04/12/18 05:15 Temperature 100.6 F H Pulse Rate 67 70 70 Respiratory Rate 15 15 15 Blood Pressure 131/72 120/64 Pulse Oximetry 97 100 95 04/12/18 05:30 04/12/18 05:45 04/12/18 06:00 Temperature 100.6 F H Pulse Rate 70 71 68 Respiratory Rate 15 15 15 Blood Pressure 118/69 115/68 94/58 L Pulse Oximetry 95 95 96 04/12/18 06:09 04/12/18 06:15 04/12/18 06:30 Temperature 99.9 F H Pulse Rate 66 66 69 Respiratory Rate 15 15 15 Blood Pressure 96/55 L 107/64 135/72 Pulse Oximetry 97 98 100 04/12/18 06:45 04/12/18 07:00 04/12/18 07:15 Temperature 100.0 F H 99.9 F H 99.9 F H Pulse Rate 68 67 67 Respiratory Rate 15 15 15 Blood Pressure 122/72 119/71 122/71 Pulse Oximetry 97 98 97 04/12/18 07:30 04/12/18 07:45 04/12/18 08:00 Temperature 99.9 F H 99.9 F H 99.9 F H Pulse Rate 68 67 72 Respiratory Rate 15 15 15 Blood Pressure 119/70 118/71 120/76 Pulse Oximetry 98 99 97 04/12/18 08:15 04/12/18 08:30 04/12/18 08:45 Temperature 99.9 F H 99.9 F H 99.9 F H Pulse Rate 68 67 67 Respiratory Rate 15 15 15 Blood Pressure 119/66 117/66 118/66 Pulse Oximetry 97 98 97 04/12/18 09:00 04/12/18 09:30 04/12/18 09:31 Temperature 99.9 F H 100.0 F H Pulse Rate 64 67 73 Respiratory Rate 15 13 18 Blood Pressure 115/65 125/73 Pulse Oximetry 98 97 97 04/12/18 09:45 04/12/18 10:00 04/12/18 10:15 Temperature 99.9 F H 99.7 F H 99.3 F Pulse Rate 87 93 H 91 H Respiratory Rate 17 19 19 Blood Pressure 163/79 H 153/78 H 153/84 H Pulse Oximetry 95 94 L 94 L 04/12/18 10:30 04/12/18 10:45 04/12/18 11:00 Temperature 99.0 F 98.8 F 98.6 F Pulse Rate 92 H 90 95 H Respiratory Rate 19 16 17 Blood Pressure 152/86 H 146/79 H 154/81 H Pulse Oximetry 94 L 95 94 L 04/12/18 11:15 04/12/18 11:30 04/12/18 11:45 Temperature 98.4 F 98.4 F 98.2 F Pulse Rate 95 H 90 91 H Respiratory Rate 18 18 16 Blood Pressure 145/77 H 147/80 H 147/78 H Pulse Oximetry 94 L 94 L 95 04/12/18 12:00 04/12/18 12:12 04/12/18 12:13 Temperature 98.2 F Pulse Rate 81 81 Respiratory Rate 22 15 15 Blood Pressure 123/71 Pulse Oximetry 95 04/12/18 12:15 04/12/18 12:30 04/12/18 12:45 Temperature 98.2 F 98.2 F 98.4 F Pulse Rate 77 68 64 Respiratory Rate 15 15 15 Blood Pressure 114/69 85/52 L 82/53 L Pulse Oximetry 95 97 98 04/12/18 12:58 04/12/18 13:00 04/12/18 13:15 Temperature 98.6 F 98.6 F 98.6 F Pulse Rate 62 63 63 Respiratory Rate 15 15 15 Blood Pressure 99/63 L 97/59 L 119/68 Pulse Oximetry 99 99 98 04/12/18 13:30 04/12/18 13:45 04/12/18 14:00 Temperature 98.6 F 98.6 F 98.4 F Pulse Rate 62 65 65 Respiratory Rate 15 15 15 Blood Pressure 113/63 154/72 H 140/80 Pulse Oximetry 99 98 99 04/12/18 14:15 04/12/18 14:30 04/12/18 15:00 Temperature 98.4 F 98.4 F 98.4 F Pulse Rate 64 64 64 Respiratory Rate 15 15 15 Blood Pressure 146/83 H 148/83 H 145/70 H Pulse Oximetry 99 99 98 04/12/18 15:15 04/12/18 15:30 04/12/18 15:45 Temperature 98.4 F 98.4 F 98.8 F Pulse Rate 66 70 76 Respiratory Rate 15 15 15 Blood Pressure 139/69 139/77 131/69 Pulse Oximetry 98 95 95 04/12/18 16:00 04/12/18 17:09 04/12/18 17:11 Temperature 98.8 F Pulse Rate 68 63 Respiratory Rate 15 15 15 Blood Pressure 116/66 Pulse Oximetry 100 98 Intake & Output 04/12/18 04/12/18 04/13/18 06:59 18:59 06:59 Intake Total 2815 / 2815 1949 Output Total 750 / 750 Balance 2064 / 2064 Weight 85.8 kg Intake: IV 2014 1550 / 1550 Precedex Inj 1,000 MCG In NS 250 / 250 250 / 250 Inj 240 ML @ 0.2 MCG/KG/HR 4.31 mls/hr IV.CONT TITRATE PRN Rx# :[id number] D5W/1/2 NS Inj 1,000 ML @ 84 1000 / 1000 1000 / 1000 mls/hr IV.CONT .[id number] GIGI Rx# :[id number] Ofirmev Inj 1,000 mg In 100 ml 100 / 100 @ 400 mls/hr IV.SIG Q6H GIGI Rx# :[id number] Mycamine Inj 150 MG In NS Inj 100 / 100 100 ML @ 100 mls/hr IV.SIG Q24H GIGI Rx#:[id number] Zosyn 2.25 GM Premix 2.25 gm In 150 / 150 100 / 100 50 ml @ 100 mls/hr IV.SIG Q6H GIGI Rx#:[id number] KCl 40 mEq Premix Inj 40 meq In 100 / 100 100 ml @ 25 mls/hr IV.SIG UNSCH PRN Rx#:[id number] Vancomycin Inj 1,500 MG In NS 515 / 515 Inj 500 ML @ 250 mls/hr IV.SIG ONCE ONE Rx#:[id number] Water Bolus Amount 400 / 400 Free Water Amount 400 / 400 400 / 400 Output: Urine Amount (Catheter) 700 / 700 Indwelling Urethral Catheter 700 / 700 Gastric Drainage 50 / 50 Orogastric Tube 50 / 50 Other: Date of Last Bowel Movement 04/12/18 04/12/18 # Incontinent Bowel Movements 1 Narrative: GENERAL: Elderly white male awake on ventilator support SKIN: Warm and dry, intact, No lesions seen. HEAD: Normocephalic. EYES: No scleral icterus. No injection or drainage. Pupils are equal and reactive to light. NECK: Supple, trachea midline. No JVD or lymphadenopathy. CARDIOVASCULAR: Regular rate and rhythm without murmurs, gallops, or rubs. RESPIRATORY: Breath sounds equal bilaterally. No accessory muscle use. Few coarse wheezes in the upper chest GASTROINTESTINAL: Abdomen not distended. Hypoactive bowel sounds. BACK: Nontender without obvious deformity. No CVA tenderness. Neuro: Awake and responsive and moves all extremities. - Urinary Catheter Management Indwelling Urethral Catheter Cath placed during this visit: yes Reason for continuing: Hourly intake/output Insertion date: 04/10/18 Insertion time: 01:45 Results - Labs CBC & Chem 7: 04/12/18 04:25 04/12/18 04:25 Laboratory Results - last 24 hr 04/05/18 04/11/18 04/12/18 10:36 18:00 00:50 WBC RBC Hgb Hct MCV MCH MCHC RDW Plt Count MPV Neut % (Auto) Lymph % (Auto) M[place]racken % (Auto) Eos % (Auto) Baso % (Auto) Neut # (Auto) Lymph # (Auto) [place] # (Auto) Eos # (Auto) Baso # (Auto) WBC Differential Differential Comment PT INR Sodium Potassium Chloride Carbon Dioxide Anion Gap BUN Creatinine Estimated GFR Random Glucose Calcium Phosphorus Magnesium Total Bilirubin AST ALT Alkaline Phosphatase Ammonia Total Protein Albumin Amylase BAL Total Volume 23.0 BAL RBC 450 BAL Nucleated 403.650 H BAL Neutrophils Not Reportable BAL White & Oth Cells 61342 BAL Diff Comment Stl C.difficile DNA Amp Negative St C. diff Tox Epid 027 Negative Acetylchol Rcpt Bind Ab Less than 0.30 04/12/18 04/12/18 04/12/18 04:25 04:25 04:25 WBC 20.8 H RBC 3.47 L Hgb 10.9 L Hct 32.5 L MCV 93.7 MCH 31.3 MCHC 33.4 RDW 15.2 Plt Count 282 MPV 8.6 Neut % (Auto) 91.8 H Lymph % (Auto) 3.7 L [place] % (Auto) 3.8 Eos % (Auto) 0.5 Baso % (Auto) 0.2 Neut # (Auto) 19.1 H Lymph # (Auto) 0.8 L [place] # (Auto) 0.8 Eos # (Auto) 0.1 Baso # (Auto) 0.0 WBC Differential . Differential Comment Auto diff final PT 11.6 INR 1.1 Sodium 151 H Potassium 3.4 L Chloride 116 H Carbon Dioxide 28.9 Anion Gap 6 BUN 44 H Creatinine 1.35 H Estimated GFR 53 L Random Glucose 132 H Calcium 8.8 D Phosphorus 3.2 D Magnesium 2.6 H D Total Bilirubin 1.1 H AST 46 H ALT 127 H Alkaline Phosphatase 68 Ammonia Total Protein 6.3 L D Albumin 2.7 L D Amylase 177 H BAL Total Volume BAL RBC BAL Nucleated BAL Neutrophils BAL White & Oth Cells BAL Diff Comment Stl C.difficile DNA Amp St C. diff Tox Epid 027 Acetylchol Rcpt Bind Ab 04/12/18 04:25 WBC RBC Hgb Hct MCV MCH MCHC RDW Plt Count MPV Neut % (Auto) Lymph % (Auto) [place] % (Auto) Eos % (Auto) Baso % (Auto) Neut # (Auto) Lymph # (Auto) [place] # (Auto) Eos # (Auto) Baso # (Auto) WBC Differential Differential Comment PT INR Sodium Potassium Chloride Carbon Dioxide Anion Gap BUN Creatinine Estimated GFR Random Glucose Calcium Phosphorus Magnesium Total Bilirubin AST ALT Alkaline Phosphatase Ammonia 27 Total Protein Albumin Amylase BAL Total Volume BAL RBC BAL Nucleated BAL Neutrophils BAL White & Oth Cells BAL Diff Comment Stl C.difficile DNA Amp St C. diff Tox Epid 027 Acetylchol Rcpt Bind Ab Microbiology 04/12/18 00:50 Stool Enteric Pathogens (PCR) - Final No enteric pathogens detected by PCR (No Salmonella sp., Shigella sp., Campylobacter sp., Yersinia enterocolitica, Vibrio sp., Norovirus, or EHEC (Shiga Toxin 1 or Shiga Toxin 2) detected. 04/11/18 18:00 Bronchial - Bronchial Gram Stain - Final 04/11/18 18:00 Bronchial - Bronchial Bronchial Culture - Preliminary Heavy growth normal respiratory giovanni at 24 hours 04/11/18 09:25 Sputum - Endotracheal Gram Stain - Final 04/11/18 09:25 Sputum - Endotracheal Sputum Culture - Preliminary Heavy growth normal respiratory giovanni at 24 hours 04/10/18 18:45 Sputum - Endotracheal Gram Stain - Final 04/10/18 18:45 Sputum - Endotracheal Sputum Culture - Final Rare growth normal respiratory giovanni 04/11/18 18:15 Blood - Peripheral Aerobic Blood Culture - Preliminary No growth in 1 day 04/11/18 18:15 Blood - Peripheral Anaerobic Blood Culture - Preliminary No growth in 1 day 04/11/18 18:00 Blood - Peripheral Aerobic Blood Culture - Preliminary No growth in 1 day 04/11/18 18:00 Blood - Peripheral Anaerobic Blood Culture - Preliminary No growth in 1 day 04/10/18 17:45 Blood - Peripheral Aerobic Blood Culture - Preliminary No growth in 2 days 04/10/18 17:45 Blood - Peripheral Anaerobic Blood Culture - Preliminary No growth in 2 days 04/10/18 17:50 Blood - Peripheral Aerobic Blood Culture - Preliminary No growth in 2 days 04/10/18 17:50 Blood - Peripheral Anaerobic Blood Culture - Preliminary No growth in 2 days 04/12/18 00:50 Stool Stool for WBCs - Final Rare WBC's 04/10/18 18:45 Catheterized Urine Urine Culture - Final No growth in 48 hours - Imaging Impressions Chest X-Ray 04/12/18 06:00 CONCLUSION: Support apparatus in good position. Basilar airspace consolidation in the lungs. Abdomen X-Ray 04/12/18 08:00 CONCLUSION: NG coiled in stomach. Persistent gaseous distention of bowel with proximal right colon measuring just over 11 cm in diameter. This is similar to prior exam. Assessment and Plan - Assessment (1) Respiratory failure Code(s): J96.90 - Respiratory failure, unspecified, unspecified whether with hypoxia or hypercapnia Status: Acute (2) Atelectasis Code(s): J98.11 - Atelectasis Status: Acute (3) Neck pain, chronic Code(s): M54.2 - Cervicalgia; G89.29 - Other chronic pain Status: Chronic (4) Other cervical disc degeneration at C5-C6 level Code(s): M50.322 - Other cervical disc degeneration at C5-C6 level Status: Chronic (5) Protrusion of cervical intervertebral disc Code(s): M50.20 - Other cervical disc displacement, unspecified cervical region Status: Chronic (6) Adult failure to thrive Code(s): R62.7 - Adult failure to thrive Status: Acute (7) Shortness of breath Code(s): R06.02 - Shortness of breath Status: Acute (8) Weakness generalized Code(s): R53.1 - Weakness Status: Acute (9) Acute hyponatremia Code(s): E87.1 - Hypo-osmolality and hyponatremia Status: Acute (10) Ventilator dependent Code(s): Z99.11 - Dependence on respirator [ventilator] status Status: Acute - Plan 1 continue on AC rate of 15 PEEP of 5 and FiO2 40 % 2 wean FiO2 to keep sats greater than 92 3. ABG in a.m. 4. DuoNeb nebs every 6 hours as needed 5. Precedex for sedation 6. Tracheal lavage and suction as needed 7. Continue Lovenox 40 mg subcu daily 8. Continue antibiotics per ID 9. Chest x-ray CBC BMP in a.m. 10. CPAP trial daily and respiratory parameters. 11. PT evaluation 12. Discussed with family and patient about possible trach if he fails to wean off the ventilator.
--- NOTE | 2018-04-12 19:31 | P.PNID ---
Subjective Remarks: pt is better improving No fever breezy Bell Antibiotics: zosyn started 04/11 vanco micafungin Allergies/Adverse Reactions: Allergies Sulfa (Sulfonamide Antibiotics) Allergy (Severe, Verified 02/15/18 05:02) Nausea also flu like symptoms Objective Vital Signs 04/11/18 19:29 04/11/18 19:32 04/11/18 19:35 Temperature 100.0 F H 100.2 F H 100.2 F H Pulse Rate 59 L 59 L 59 L Respiratory Rate 15 15 15 Blood Pressure 123/77 125/74 127/70 Pulse Oximetry 99 99 99 04/11/18 19:38 04/11/18 19:41 04/11/18 19:44 Temperature 100.2 F H 100.2 F H 100.2 F H Pulse Rate 59 L 59 L 60 Respiratory Rate 15 15 15 Blood Pressure 110/68 115/73 119/74 Pulse Oximetry 99 99 99 04/11/18 19:47 04/11/18 19:50 04/11/18 19:53 Temperature 100.2 F H 100.2 F H 100.2 F H Pulse Rate 60 59 L 59 L Respiratory Rate 15 15 15 Blood Pressure 117/73 122/75 116/72 Pulse Oximetry 99 99 99 04/11/18 19:55 04/11/18 19:56 04/11/18 19:59 Temperature 100.2 F H 100.2 F H Pulse Rate 60 60 62 Respiratory Rate 15 15 16 Blood Pressure 122/70 121/70 Pulse Oximetry 99 99 99 04/11/18 20:00 04/11/18 20:15 04/11/18 20:30 Temperature 100.2 F H 100.2 F H 100.2 F H Pulse Rate 65 64 74 Respiratory Rate 15 15 15 Blood Pressure 115/69 116/74 Pulse Oximetry 99 99 99 04/11/18 20:45 04/11/18 21:00 04/11/18 21:15 Temperature 100.4 F H 100.4 F H 100.6 F H Pulse Rate 71 69 70 Respiratory Rate 15 15 15 Blood Pressure 115/67 120/68 110/68 Pulse Oximetry 99 99 99 04/11/18 21:30 04/11/18 21:45 04/11/18 22:00 Temperature 100.6 F H 100.8 F H 100.9 F H Pulse Rate 65 64 68 Respiratory Rate 15 15 15 Blood Pressure 102/62 98/60 L 115/68 Pulse Oximetry 99 99 99 04/11/18 22:10 04/11/18 22:15 04/11/18 22:29 Temperature 100.9 F H 100.9 F H Pulse Rate 67 67 70 Respiratory Rate 15 15 Blood Pressure 117/66 Pulse Oximetry 99 99 04/11/18 22:30 04/11/18 22:45 04/11/18 23:00 Temperature 100.9 F H 101.1 F H 101.1 F H Pulse Rate 69 71 66 Respiratory Rate 15 15 15 Blood Pressure 118/70 129/75 115/69 Pulse Oximetry 99 99 99 04/11/18 23:15 04/11/18 23:30 04/11/18 23:45 Temperature 101.1 F H 101.3 F H 101.3 F H Pulse Rate 63 62 63 Respiratory Rate 15 15 15 Blood Pressure 111/64 112/66 111/67 Pulse Oximetry 99 99 99 04/12/18 00:00 04/12/18 00:15 04/12/18 00:30 Temperature 101.3 F H 101.1 F H Pulse Rate 66 65 69 Respiratory Rate 15 15 15 Blood Pressure 113/71 117/70 114/71 Pulse Oximetry 99 99 99 04/12/18 00:45 04/12/18 01:00 04/12/18 01:15 Temperature 100.9 F H 100.9 F H 100.8 F H Pulse Rate 81 76 75 Respiratory Rate 18 15 15 Blood Pressure 134/70 112/63 132/73 Pulse Oximetry 96 95 97 04/12/18 01:30 04/12/18 01:45 04/12/18 02:00 Temperature 100.8 F H Pulse Rate 75 71 71 Respiratory Rate 15 15 15 Blood Pressure 124/75 123/72 122/69 Pulse Oximetry 97 97 97 04/12/18 02:15 04/12/18 02:30 04/12/18 02:45 Temperature Pulse Rate 70 69 68 Respiratory Rate 15 15 15 Blood Pressure 118/68 121/71 122/73 Pulse Oximetry 97 97 98 04/12/18 03:00 04/12/18 03:15 04/12/18 03:30 Temperature Pulse Rate 68 71 67 Respiratory Rate 15 15 15 Blood Pressure 122/72 126/76 125/74 Pulse Oximetry 98 97 99 04/12/18 03:45 04/12/18 04:00 04/12/18 04:10 Temperature 100.8 F H Pulse Rate 68 67 69 Respiratory Rate 15 15 Blood Pressure 126/73 125/76 Pulse Oximetry 99 99 04/12/18 04:15 04/12/18 04:30 04/12/18 04:45 Temperature Pulse Rate 69 67 68 Respiratory Rate 15 15 15 Blood Pressure 131/80 136/80 121/70 Pulse Oximetry 100 99 98 04/12/18 04:57 04/12/18 05:00 04/12/18 05:15 Temperature 100.6 F H Pulse Rate 67 70 70 Respiratory Rate 15 15 15 Blood Pressure 131/72 120/64 Pulse Oximetry 97 100 95 04/12/18 05:30 04/12/18 05:45 04/12/18 06:00 Temperature 100.6 F H Pulse Rate 70 71 68 Respiratory Rate 15 15 15 Blood Pressure 118/69 115/68 94/58 L Pulse Oximetry 95 95 96 04/12/18 06:09 04/12/18 06:15 04/12/18 06:30 Temperature 99.9 F H Pulse Rate 66 66 69 Respiratory Rate 15 15 15 Blood Pressure 96/55 L 107/64 135/72 Pulse Oximetry 97 98 100 04/12/18 06:45 04/12/18 07:00 04/12/18 07:15 Temperature 100.0 F H 99.9 F H 99.9 F H Pulse Rate 68 67 67 Respiratory Rate 15 15 15 Blood Pressure 122/72 119/71 122/71 Pulse Oximetry 97 98 97 04/12/18 07:30 04/12/18 07:45 04/12/18 08:00 Temperature 99.9 F H 99.9 F H 99.9 F H Pulse Rate 68 67 72 Respiratory Rate 15 15 15 Blood Pressure 119/70 118/71 120/76 Pulse Oximetry 98 99 97 04/12/18 08:15 04/12/18 08:30 04/12/18 08:45 Temperature 99.9 F H 99.9 F H 99.9 F H Pulse Rate 68 67 67 Respiratory Rate 15 15 15 Blood Pressure 119/66 117/66 118/66 Pulse Oximetry 97 98 97 04/12/18 09:00 04/12/18 09:30 04/12/18 09:31 Temperature 99.9 F H 100.0 F H Pulse Rate 64 67 73 Respiratory Rate 15 13 18 Blood Pressure 115/65 125/73 Pulse Oximetry 98 97 97 04/12/18 09:45 04/12/18 10:00 04/12/18 10:15 Temperature 99.9 F H 99.7 F H 99.3 F Pulse Rate 87 93 H 91 H Respiratory Rate 17 19 19 Blood Pressure 163/79 H 153/78 H 153/84 H Pulse Oximetry 95 94 L 94 L 04/12/18 10:30 04/12/18 10:45 04/12/18 11:00 Temperature 99.0 F 98.8 F 98.6 F Pulse Rate 92 H 90 95 H Respiratory Rate 19 16 17 Blood Pressure 152/86 H 146/79 H 154/81 H Pulse Oximetry 94 L 95 94 L 04/12/18 11:15 04/12/18 11:30 04/12/18 11:45 Temperature 98.4 F 98.4 F 98.2 F Pulse Rate 95 H 90 91 H Respiratory Rate 18 18 16 Blood Pressure 145/77 H 147/80 H 147/78 H Pulse Oximetry 94 L 94 L 95 04/12/18 12:00 04/12/18 12:12 04/12/18 12:13 Temperature 98.2 F Pulse Rate 81 81 Respiratory Rate 22 15 15 Blood Pressure 123/71 Pulse Oximetry 95 04/12/18 12:15 04/12/18 12:30 04/12/18 12:45 Temperature 98.2 F 98.2 F 98.4 F Pulse Rate 77 68 64 Respiratory Rate 15 15 15 Blood Pressure 114/69 85/52 L 82/53 L Pulse Oximetry 95 97 98 04/12/18 12:58 04/12/18 13:00 04/12/18 13:15 Temperature 98.6 F 98.6 F 98.6 F Pulse Rate 62 63 63 Respiratory Rate 15 15 15 Blood Pressure 99/63 L 97/59 L 119/68 Pulse Oximetry 99 99 98 04/12/18 13:30 04/12/18 13:45 04/12/18 14:00 Temperature 98.6 F 98.6 F 98.4 F Pulse Rate 62 65 65 Respiratory Rate 15 15 15 Blood Pressure 113/63 154/72 H 140/80 Pulse Oximetry 99 98 99 04/12/18 14:15 04/12/18 14:30 04/12/18 15:00 Temperature 98.4 F 98.4 F 98.4 F Pulse Rate 64 64 64 Respiratory Rate 15 15 15 Blood Pressure 146/83 H 148/83 H 145/70 H Pulse Oximetry 99 99 98 04/12/18 15:15 04/12/18 15:30 04/12/18 15:45 Temperature 98.4 F 98.4 F 98.8 F Pulse Rate 66 70 76 Respiratory Rate 15 15 15 Blood Pressure 139/69 139/77 131/69 Pulse Oximetry 98 95 95 04/12/18 16:00 04/12/18 17:09 04/12/18 17:11 Temperature 98.8 F Pulse Rate 68 63 Respiratory Rate 15 15 15 Blood Pressure 116/66 Pulse Oximetry 100 98 Intake & Output 04/12/18 04/12/18 04/13/18 06:59 18:59 06:59 Intake Total 2815 / 2815 1949 Output Total 750 / 750 Balance 2064 / 2064 Weight 85.8 kg Intake: IV 2014 1550 / 1550 Precedex Inj 1,000 MCG In NS 250 / 250 250 / 250 Inj 240 ML @ 0.2 MCG/KG/HR 4.31 mls/hr IV.CONT TITRATE PRN Rx# :[id number] D5W/1/2 NS Inj 1,000 ML @ 84 1000 / 1000 1000 / 1000 mls/hr IV.CONT .[id number] GIGI Rx# :[id number] Ofirmev Inj 1,000 mg In 100 ml 100 / 100 @ 400 mls/hr IV.SIG Q6H GIGI Rx# :[id number] Mycamine Inj 150 MG In NS Inj 100 / 100 100 ML @ 100 mls/hr IV.SIG Q24H GIGI Rx#:[id number] Zosyn 2.25 GM Premix 2.25 gm In 150 / 150 100 / 100 50 ml @ 100 mls/hr IV.SIG Q6H GIGI Rx#:[id number] KCl 40 mEq Premix Inj 40 meq In 100 / 100 100 ml @ 25 mls/hr IV.SIG UNSCH PRN Rx#:[id number] Vancomycin Inj 1,500 MG In NS 515 / 515 Inj 500 ML @ 250 mls/hr IV.SIG ONCE ONE Rx#:[id number] Water Bolus Amount 400 / 400 Free Water Amount 400 / 400 400 / 400 Output: Urine Amount (Catheter) 700 / 700 Indwelling Urethral Catheter 700 / 700 Gastric Drainage 50 / 50 Orogastric Tube 50 / 50 Other: Date of Last Bowel Movement 04/12/18 04/12/18 # Incontinent Bowel Movements 1 04/12/18 00:50 Stool Enteric Pathogens (PCR) - Final No enteric pathogens detected by PCR (No Salmonella sp., Shigella sp., Campylobacter sp., Yersinia enterocolitica, Vibrio sp., Norovirus, or EHEC (Shiga Toxin 1 or Shiga Toxin 2) detected. 04/11/18 18:00 Bronchial - Bronchial Gram Stain - Final 04/11/18 18:00 Bronchial - Bronchial Bronchial Culture - Preliminary Heavy growth normal respiratory giovanni at 24 hours 04/11/18 09:25 Sputum - Endotracheal Gram Stain - Final 04/11/18 09:25 Sputum - Endotracheal Sputum Culture - Preliminary Heavy growth normal respiratory giovanni at 24 hours 04/10/18 18:45 Sputum - Endotracheal Gram Stain - Final 04/10/18 18:45 Sputum - Endotracheal Sputum Culture - Final Rare growth normal respiratory giovanni 04/11/18 18:15 Blood - Peripheral Aerobic Blood Culture - Preliminary No growth in 1 day 04/11/18 18:15 Blood - Peripheral Anaerobic Blood Culture - Preliminary No growth in 1 day 04/11/18 18:00 Blood - Peripheral Aerobic Blood Culture - Preliminary No growth in 1 day 04/11/18 18:00 Blood - Peripheral Anaerobic Blood Culture - Preliminary No growth in 1 day 04/10/18 17:45 Blood - Peripheral Aerobic Blood Culture - Preliminary No growth in 2 days 04/10/18 17:45 Blood - Peripheral Anaerobic Blood Culture - Preliminary No growth in 2 days 04/10/18 17:50 Blood - Peripheral Aerobic Blood Culture - Preliminary No growth in 2 days 04/10/18 17:50 Blood - Peripheral Anaerobic Blood Culture - Preliminary No growth in 2 days 04/12/18 00:50 Stool Stool for WBCs - Final Rare WBC's 04/10/18 18:45 Catheterized Urine Urine Culture - Final No growth in 48 hours 04/12/18 00:50 Stool Cryptosporidium Antigen - Pending 04/12/18 00:50 Stool Giardia Antigen (LISSETH) - Pending 04/11/18 18:00 Bronchial Washings - Left Lower Lobe Fungal Smear - Pending 04/11/18 18:00 Bronchial Washings - Left Lower Lobe Fungal Culture - Pending 04/11/18 18:00 Bronchial Washings - Left Lower Lobe Acid Fast Bacilli Smear - Pending 04/11/18 18:00 Bronchial Washings - Left Lower Lobe Mycobacterial Culture - Pending Lab - Hematology Results 04/11/18 04/12/18 03:13 04:25 WBC 24.6 H D 20.8 H RBC 3.99 L 3.47 L Hgb 12.4 L 10.9 L Hct 37.5 L 32.5 L MCV 94.0 93.7 MCH 31.1 31.3 MCHC 33.1 33.4 RDW 14.8 15.2 Plt Count 401 282 MPV 9.0 8.6 Neut % (Auto) 94.0 H 91.8 H Lymph % (Auto) 2.1 L 3.7 L Heard % (Auto) 3.3 3.8 Eos % (Auto) 0.2 0.5 Baso % (Auto) 0.4 0.2 Neut # (Auto) 23.1 H 19.1 H Lymph # (Auto) 0.5 L 0.8 L Heard # (Auto) 0.8 0.8 Eos # (Auto) 0.1 0.1 Baso # (Auto) 0.1 0.0 WBC Differential . . Differential Comment Auto diff final Auto diff final Lab - Chemistry Results 04/11/18 04/11/18 04/11/18 03:13 03:13 09:25 Sodium 150 H Potassium 3.8 Chloride 114 H Carbon Dioxide 28.4 Anion Gap 8 BUN 60 H Creatinine 2.69 H Estimated GFR 24 L Random Glucose 106 Lactic Acid 1.4 Calcium 9.7 Phosphorus 5.1 H D Magnesium 3.3 H Total Bilirubin 1.2 H AST 74 H ALT 180 H Alkaline Phosphatase 78 Ammonia 25 Total Creatine Kinase Troponin I Total Protein 7.4 D Albumin 3.6 Amylase Lipase 04/11/18 04/12/18 04/12/18 09:25 04:25 04:25 Sodium 151 H Potassium 3.4 L Chloride 116 H Carbon Dioxide 28.9 Anion Gap 6 BUN 44 H Creatinine 1.35 H Estimated GFR 53 L Random Glucose 132 H Lactic Acid Calcium 8.8 D Phosphorus 3.2 D Magnesium 2.6 H D Total Bilirubin 1.1 H AST 46 H ALT 127 H Alkaline Phosphatase 68 Ammonia 27 Total Creatine Kinase 98 Troponin I 0.02 Total Protein 6.3 L D Albumin 2.7 L D Amylase 369 H 177 H Lipase 201 Imaging: ITS Impressions Head MRI 03/31/18 00:00 CONCLUSION: Negative exam Head CT 03/31/18 12:16 CONCLUSION: 1. Negative CT Head non contrast. . Chest CTA 03/31/18 14:39 CONCLUSION: 1. Bibasilar atelectatic changes, left greater than right. No confluent infiltrate. 2. No pulmonary embolus. 3. Atherosclerotic calcification of the coronary arteries. Cervical Spine MRI 03/31/18 16:17 CONCLUSION: 1. Status post fusion at the C5-C6 level. There is susceptibility artifact from the hardware. 2. A significant area of stenosis in the thecal sac is not seen. 3. Facet hypertrophy seen throughout with scattered areas of neural foraminal narrowing as described above. 4. The patient is intubated with fluid in the hypopharynx, laryngeal pharynx, and upper trachea around the ET tube and above the tracheal ET tube cuff. 5. The does appear to be some mild soft tissue swelling in the prevertebral region best seen on the sagittal images. Abdomen/Bladder Ultrasound 04/10/18 08:05 CONCLUSION: 1. Probable complex cyst coming off the right lower pole kidney appears smaller since 2017 CT examination of the abdomen. Chest CT 04/11/18 00:00 CONCLUSION: 1. Patchy nodular opacities in the right lower lobe coalescing posteriorly most consistent with an infectious etiology such as bronchopneumonia. 2. Near complete left lower lobe collapse and dense airspace consolidation in the posterior right lower lobe. Differential considerations include aspiration. 3. Coronary artery cavitations. Abdomen/Pelvis CT 04/11/18 13:06 CONCLUSION: 1. Bilateral lower lobe consolidations left greater than right. Distended small and large bowel without evidence of wall thickening or obstruction. NG tube coiled within the stomach. Chest X-Ray 04/12/18 06:00 CONCLUSION: Support apparatus in good position. Basilar airspace consolidation in the lungs. Abdomen X-Ray 04/12/18 08:00 CONCLUSION: NG coiled in stomach. Persistent gaseous distention of bowel with proximal right colon measuring just over 11 cm in diameter. This is similar to prior exam. Physical Exam: GENERAL: NAD awake, uint'd SKIN: Warm and dry. HEAD: Atraumatic. Normocephalic. EYES: Pupils equal and round. No scleral icterus. No injection or drainage. ENT: No nasal bleeding or discharge. Mucous membranes pink and moist. NECK: Trachea midline. No JVD. CARDIOVASCULAR: Regular tachycardia and gallop (?S 3) RESPIRATORY: No accessory muscle use. Clear to auscultation. Breath sounds equal, decreased bilaterally. GASTROINTESTINAL: Abdomen soft, non-tender, nondistended. Hepatic and splenic margins not palpable. MUSCULOSKELETAL: Extremities without clubbing, cyanosis, or edema. No obvious deformities. NEUROLOGICAL: lethargic, arousable PSYCHIATRIC: calm Assessment and Plan - Plan C spine fusion Hypercapnia difficulty breathing developped after surgery Kleb oxytoca PNA signs of PNA resolved cliniclaly and radiologically Acute VDRF, improving fever, low grade: resolved No e/o REGISTERED NURSE RENAL infx New leukocytosis ARF - no obstruction on US, UOP improved p bolus per RN hypotensive episode: resolved with adjusting pressure medx Aspiration PNA Sepsis, new source likely PNA will cont zosyn cont micafungin for now dc vanco will adjust abx per cultures fu P clx dw RN dw Pj Bell, breezy @ bs
[2018-04-13] MEDS: Artificial Tears Opth Drops 15 ML Bottle EACH EYE SCH ×3 (01:25→17:15)
[2018-04-13] MEDS: Piperacil/Tazo 2.25 GM Premix 2.25 GM/50 ML PIGGYBACK IV.SIG SCH ×2 (01:26→09:25)
[2018-04-13 04:11] LABS: Baso % (Auto) 0.3 % (0.0-2.0); Eos # (Auto) 0.2 th/mm3 (0.0-0.4); Eos % (Auto) 1.4 % (0.0-4.0); Hematocrit 30.8 % (39.0-51.0); Lymph # (Auto) 0.5 th/mm3 (1.0-4.8); Lymph % (Auto) 3.6 % (9.0-44.0); Mean Corpuscular HGB Conc 32.5 % (32.0-36.0); Mean Corpuscular Hemoglobin 30.9 pg (27.0-34.0); Mean Corpuscular Volume 95.2 fL (80.0-100.0); Mean Platelet Volume 9.2 fL (7.0-11.0); Mono # (Auto) 0.8 th/mm3 (0.0-0.9); Neut # (Auto) 13.6 th/mm3 (1.8-7.7); Neut % (Auto) 89.7 % (16.0-70.0); Platelet Count 268 th/mm3 (150-450); Red Blood Count 3.24 mil/mm3 (4.50-5.90); Red Cell Distribution Width 14.6 % (11.6-17.2); White Blood Count 15.1 th/mm3 (4.0-11.0)
[2018-04-13] MEDS: Oral Hygiene Kit OROPHARYNG SCH ×3 (04:34→17:16)
[2018-04-13 04:40] LABS: Albumin 2.5 g/dL (3.4-5.0); Anion Gap 6 meq/L (5-15); Aspartate Aminotransferase 34 U/L (15-37); Blood Urea Nitrogen 37 mg/dL (7-18); Calcium 8.8 mg/dL (8.5-10.1); Carbon Dioxide 26.8 meq/L (21.0-32.0); Chloride 117 meq/L (98-107); Glomerular Filtration Rate 68 mL/min (>89); Glucose,Random 104 mg/dL (74-106); Magnesium 2.5 mg/dL (1.5-2.5); Potassium 3.3 meq/L (3.5-5.1); Sodium 150 meq/L (136-145)
[2018-04-13 04:44] LABS: Alanine Aminotransferase 99 U/L (12-78); Alkaline Phosphatase 65 U/L (45-117); Phosphorus 2.9 mg/dL (2.5-4.9); Total Protein 5.9 g/dL (6.4-8.2)
[2018-04-13] MEDS: Levothyroxine 125 MCG Tablet PO SCH (05:16)
--- NOTE | 2018-04-13 05:30 | XR ---
EXAM DATE: 04/13/2018 5:06 AM EST AGE/SEX: 67 years / Male INDICATIONS: Short of breath. CLINICAL DATA: This is the patient's subsequent encounter. Patient reports that signs and symptoms h ave been present for 1 week and indicates a pain score of 0/10. MEDICAL/SURGICAL HISTORY: . Thyroid Disease. . Microdiscectomy. Left inguinal hernia repair. COMPARISON: C, CHEST 1V SINGLE AP, 04/12/2018. . FINDINGS: Endotracheal tube in good position. NG enters stomach. Right central line in superior vena cava. Bila teral mostly basilar airspace disease. No effusion or pneumothorax. CONCLUSION: Support apparatus unchanged. Stable bilateral mostly basilar airspace disease since April 12. Electronically signed by: Howard Cook MD Board Certified Radiologist 04/13/2018 5:29 AM EST
[2018-04-13] MEDS: Potassium Chloride Liq 20 MEQ/15 ML UDC PO PRN (06:12)
[2018-04-13] MEDS: Dexmedetomidine Inj 1,000 MCG in Sodium Chlor 0.9% Inj 240 ML IV.CONT PRN ×2 (06:16→18:22)
--- NOTE | 2018-04-13 08:16 | XR ---
EXAM DATE: 04/13/2018 8:12 AM EST AGE/SEX: 67 years / Male INDICATIONS: Distention. CLINICAL DATA: This is the patient's subsequent encounter. Patient reports that signs and symptoms h ave been present for 2 weeks and indicates a pain score of 0/10. MEDICAL/SURGICAL HISTORY: . Thyroid Disease . Microdiscectomy. Left inguinal hernia repair COMPARISON: [facility] [place], ABDOMEN SINGLE VIEW, 04/12/2018. . FINDINGS: Examination of the abdomen demonstrates some decompression of the gas-filled bowel loops seen previou sly. The cecum previously measured approximately 11.2 cm in diameter and now measures 7.8 cm. No pneu moperitoneum. The nasogastric tube is been advanced down into what is probably the second portion of the duodenum. The tube is folded back on itself, however. CONCLUSION: 1. Some improvement in the gaseous distention of the bowel. Cecum previously measured [address] and now measures approximately 8 cm. 2. No pneumoperitoneum. Nasogastric tube appears to been advanced into the expected location of the duodenum Electronically signed by: Serafin Maurer MD Board Certified Radiologist 04/13/2018 8:14 AM EST
--- NOTE | 2018-04-13 09:17 | P.PNGI ---
Subjective Interval history: Patient seen and examined. Resting comfortably. Family at bedside. Patient is alert and responds appropriately to questions. He denies abdominal pain. No bowel movements overnight. KUB this morning showed improvement in gaseous distention of the bowel. NG tube has advanced to the expected location of the duodenum. On exam abdomen is soft and nontender. <DwayneEloisa Lui - Last Filed: 04/13/18 09:26> Physical Exam Vital signs: Vital Signs 04/12/18 09:30 04/12/18 09:31 04/12/18 09:45 Temperature 100.0 F H 99.9 F H Pulse Rate 67 73 87 Respiratory Rate 13 18 17 Blood Pressure 125/73 163/79 H Pulse Oximetry 97 97 95 04/12/18 10:00 04/12/18 10:15 04/12/18 10:30 Temperature 99.7 F H 99.3 F 99.0 F Pulse Rate 93 H 91 H 92 H Respiratory Rate 19 19 19 Blood Pressure 153/78 H 153/84 H 152/86 H Pulse Oximetry 94 L 94 L 94 L 04/12/18 10:45 04/12/18 11:00 04/12/18 11:15 Temperature 98.8 F 98.6 F 98.4 F Pulse Rate 90 95 H 95 H Respiratory Rate 16 17 18 Blood Pressure 146/79 H 154/81 H 145/77 H Pulse Oximetry 95 94 L 94 L 04/12/18 11:30 04/12/18 11:45 04/12/18 12:00 Temperature 98.4 F 98.2 F 98.2 F Pulse Rate 90 91 H 81 Respiratory Rate 18 16 22 Blood Pressure 147/80 H 147/78 H 123/71 Pulse Oximetry 94 L 95 95 04/12/18 12:12 04/12/18 12:13 04/12/18 12:15 Temperature 98.2 F Pulse Rate 81 77 Respiratory Rate 15 15 15 Blood Pressure 114/69 Pulse Oximetry 95 04/12/18 12:30 04/12/18 12:45 04/12/18 12:58 Temperature 98.2 F 98.4 F 98.6 F Pulse Rate 68 64 62 Respiratory Rate 15 15 15 Blood Pressure 85/52 L 82/53 L 99/63 L Pulse Oximetry 97 98 99 04/12/18 13:00 04/12/18 13:15 04/12/18 13:30 Temperature 98.6 F 98.6 F 98.6 F Pulse Rate 63 63 62 Respiratory Rate 15 15 15 Blood Pressure 97/59 L 119/68 113/63 Pulse Oximetry 99 98 99 04/12/18 13:45 04/12/18 14:00 04/12/18 14:15 Temperature 98.6 F 98.4 F 98.4 F Pulse Rate 65 65 64 Respiratory Rate 15 15 15 Blood Pressure 154/72 H 140/80 146/83 H Pulse Oximetry 98 99 99 04/12/18 14:30 04/12/18 15:00 04/12/18 15:15 Temperature 98.4 F 98.4 F 98.4 F Pulse Rate 64 64 66 Respiratory Rate 15 15 15 Blood Pressure 148/83 H 145/70 H 139/69 Pulse Oximetry 99 98 98 04/12/18 15:30 04/12/18 15:45 04/12/18 16:00 Temperature 98.4 F 98.8 F 98.8 F Pulse Rate 70 76 68 Respiratory Rate 15 15 15 Blood Pressure 139/77 131/69 116/66 Pulse Oximetry 95 95 100 04/12/18 16:15 04/12/18 16:30 04/12/18 16:45 Temperature 99.0 F 99.0 F 99.0 F Pulse Rate 65 62 61 Respiratory Rate 15 15 15 Blood Pressure 104/63 101/60 107/64 Pulse Oximetry 96 96 97 04/12/18 17:00 04/12/18 17:09 04/12/18 17:11 Temperature 99.1 F Pulse Rate 64 63 Respiratory Rate 15 15 15 Blood Pressure 110/68 Pulse Oximetry 98 98 04/12/18 17:15 04/12/18 17:33 04/12/18 17:45 Temperature 99.1 F 99.1 F 99.1 F Pulse Rate 64 63 63 Respiratory Rate 15 15 15 Blood Pressure 109/67 132/75 108/68 Pulse Oximetry 98 100 97 04/12/18 18:00 04/12/18 18:15 04/12/18 18:30 Temperature 99.1 F 99.1 F 99.0 F Pulse Rate 83 75 73 Respiratory Rate 32 H 15 15 Blood Pressure 169/84 H 142/82 H 141/86 H Pulse Oximetry 95 97 98 04/12/18 18:45 04/12/18 19:00 01/30/19 19:15 Temperature 99.0 F 98.8 F 98.8 F Pulse Rate 71 71 72 Respiratory Rate 15 15 15 Blood Pressure 137/87 143/90 H 142/85 H Pulse Oximetry 99 100 97 04/12/18 19:30 04/12/18 19:45 04/12/18 20:00 Temperature 98.8 F 98.8 F 98.8 F Pulse Rate 65 64 63 Respiratory Rate 15 15 15 Blood Pressure 129/81 127/80 118/74 Pulse Oximetry 97 98 98 04/12/18 20:02 04/12/18 20:15 04/12/18 20:30 Temperature 99.0 F 99.0 F Pulse Rate 64 67 66 Respiratory Rate 15 15 15 Blood Pressure 131/83 132/85 Pulse Oximetry 100 98 98 04/12/18 20:45 04/12/18 21:00 04/12/18 21:15 Temperature 99.0 F 99.0 F 99.0 F Pulse Rate 67 68 65 Respiratory Rate 15 15 15 Blood Pressure 140/82 123/70 118/73 Pulse Oximetry 99 98 100 04/12/18 21:30 04/12/18 21:45 04/12/18 22:00 Temperature 99.0 F 99.1 F 99.1 F Pulse Rate 61 59 L 59 L Respiratory Rate 15 15 15 Blood Pressure 102/60 97/57 L 97/63 L Pulse Oximetry 99 99 99 04/12/18 22:15 04/12/18 22:30 04/12/18 22:45 Temperature 99.1 F 99.1 F 99.1 F Pulse Rate 62 65 83 Respiratory Rate 15 15 24 Blood Pressure 103/65 111/71 140/71 Pulse Oximetry 98 100 97 04/12/18 23:00 04/12/18 23:11 04/12/18 23:15 Temperature 99.1 F 99.0 F Pulse Rate 76 67 66 Respiratory Rate 15 15 15 Blood Pressure 140/83 115/68 Pulse Oximetry 98 100 04/12/18 23:30 04/12/18 23:45 04/13/18 00:00 Temperature 99.0 F 99.0 F 98.8 F Pulse Rate 62 61 61 Respiratory Rate 15 15 15 Blood Pressure 104/61 106/64 103/66 Pulse Oximetry 99 99 99 04/13/18 00:11 04/13/18 00:15 04/13/18 00:30 Temperature 98.8 F 98.8 F Pulse Rate 60 60 Respiratory Rate 15 15 15 Blood Pressure 105/66 107/65 Pulse Oximetry 100 100 100 04/13/18 00:45 04/13/18 01:00 04/13/18 01:14 Temperature 98.8 F 98.8 F 98.8 F Pulse Rate 59 L 58 L 66 Respiratory Rate 15 15 15 Blood Pressure 101/65 105/65 Pulse Oximetry 100 100 100 04/13/18 01:15 04/13/18 01:30 04/13/18 01:45 Temperature 98.8 F 98.8 F 98.8 F Pulse Rate 65 63 63 Respiratory Rate 15 15 15 Blood Pressure 111/69 122/74 105/64 Pulse Oximetry 100 100 100 04/13/18 02:00 04/13/18 02:15 04/13/18 02:30 Temperature 98.8 F 98.8 F 98.8 F Pulse Rate 62 60 59 L Respiratory Rate 15 15 15 Blood Pressure 111/68 100/62 102/65 Pulse Oximetry 100 100 100 04/13/18 02:45 04/13/18 02:56 04/13/18 03:00 Temperature 98.8 F 98.6 F Pulse Rate 61 62 63 Respiratory Rate 15 15 18 Blood Pressure 104/65 132/69 Pulse Oximetry 100 100 04/13/18 03:15 04/13/18 03:30 04/13/18 03:38 Temperature 98.6 F 98.6 F Pulse Rate 65 65 Respiratory Rate 15 15 15 Blood Pressure 127/72 124/75 Pulse Oximetry 100 100 100 04/13/18 03:45 04/13/18 04:00 04/13/18 04:15 Temperature 98.6 F 98.6 F 98.6 F Pulse Rate 60 62 66 Respiratory Rate 15 15 15 Blood Pressure 110/70 133/82 111/69 Pulse Oximetry 100 100 99 04/13/18 04:30 04/13/18 04:45 04/13/18 05:00 Temperature 98.6 F 98.6 F 98.6 F Pulse Rate 64 68 65 Respiratory Rate 15 15 15 Blood Pressure 132/74 110/60 102/62 Pulse Oximetry 100 99 99 04/13/18 05:15 04/13/18 05:30 04/13/18 05:45 Temperature 98.6 F 98.6 F 98.4 F Pulse Rate 59 L 65 69 Respiratory Rate 15 15 15 Blood Pressure 94/58 L 122/71 114/69 Pulse Oximetry 99 100 99 04/13/18 06:00 04/13/18 06:15 04/13/18 06:30 Temperature 98.4 F 98.4 F 98.4 F Pulse Rate 67 61 59 L Respiratory Rate 15 15 15 Blood Pressure 113/67 87/53 L 93/57 L Pulse Oximetry 99 99 99 04/13/18 06:45 04/13/18 07:00 04/13/18 07:15 Temperature 98.4 F 98.4 F 98.4 F Pulse Rate 62 58 L 55 L Respiratory Rate 15 15 15 Blood Pressure 91/54 L 79/50 L 109/62 Pulse Oximetry 99 99 100 Intake & Output 04/12/18 04/13/18 04/13/18 18:59 06:59 18:59 Intake Total 1950 / 1950 1150 / 1150 Output Total 825 / 825 600 / 600 Balance 1125 / 1125 550 / 550 Weight 88.5 kg Intake: IV 1550 / 1550 650 / 650 Precedex Inj 1,000 MCG In NS 250 / 250 250 / 250 Inj 240 ML @ 0.2 MCG/KG/HR 4.31 mls/hr IV.CONT TITRATE PRN Rx# :[id number] D5W/1/2 NS Inj 1,000 ML @ 84 1000 / 1000 mls/hr IV.CONT .[id number] GIGI Rx# :[id number] Ofirmev Inj 1,000 mg In 100 ml 100 / 100 200 / 200 @ 400 mls/hr IV.SIG Q6H GIGI Rx# :[id number] Mycamine Inj 150 MG In NS Inj 100 / 100 100 ML @ 100 mls/hr IV.SIG Q24H GIGI Rx#:[id number] Zosyn 2.25 GM Premix 2.25 gm In 100 / 100 100 / 100 50 ml @ 100 mls/hr IV.SIG Q6H GIGI Rx#:[id number] KCl 40 mEq Premix Inj 40 meq In 100 / 100 100 ml @ 25 mls/hr IV.SIG UNSCH PRN Rx#:[id number] Water Bolus Amount 100 / 100 Free Water Amount 400 / 400 400 / 400 Output: Urine Amount (Catheter) 775 / 775 550 / 550 Indwelling Urethral Catheter 775 / 775 550 / 550 Gastric Drainage 50 / 50 50 / 50 Orogastric Tube 50 / 50 50 / 50 Other: Date of Last Bowel Movement 04/12/18 04/12/18 # Bowel Movements 1 # Incontinent Bowel Movements 1 - Urinary Catheter Management Indwelling Urethral Catheter Cath placed during this visit: yes Reason for continuing: Hourly intake/output Insertion date: 04/10/18 Insertion time: 01:45 <Eloisa Rice - Last Filed: 04/13/18 09:26> Vital signs: Vital Signs 04/12/18 17:00 04/12/18 17:09 04/12/18 17:11 Temperature 99.1 F Pulse Rate 64 63 Respiratory Rate 15 15 15 Blood Pressure 110/68 Pulse Oximetry 98 98 04/12/18 17:15 04/12/18 17:33 04/12/18 17:45 Temperature 99.1 F 99.1 F 99.1 F Pulse Rate 64 63 63 Respiratory Rate 15 15 15 Blood Pressure 109/67 132/75 108/68 Pulse Oximetry 98 100 97 04/12/18 18:00 04/12/18 18:15 04/12/18 18:30 Temperature 99.1 F 99.1 F 99.0 F Pulse Rate 83 75 73 Respiratory Rate 32 H 15 15 Blood Pressure 169/84 H 142/82 H 141/86 H Pulse Oximetry 95 97 98 04/12/18 18:45 04/12/18 19:00 04/12/18 19:15 Temperature 99.0 F 98.8 F 98.8 F Pulse Rate 71 71 72 Respiratory Rate 15 15 15 Blood Pressure 137/87 143/90 H 142/85 H Pulse Oximetry 99 100 97 04/12/18 19:30 04/12/18 19:45 04/12/18 20:00 Temperature 98.8 F 98.8 F 98.8 F Pulse Rate 65 64 63 Respiratory Rate 15 15 15 Blood Pressure 129/81 127/80 118/74 Pulse Oximetry 97 98 98 04/12/18 20:02 04/12/18 20:15 04/12/18 20:30 Temperature 99.0 F 99.0 F Pulse Rate 64 67 66 Respiratory Rate 15 15 15 Blood Pressure 131/83 132/85 Pulse Oximetry 100 98 98 04/12/18 20:45 04/12/18 21:00 04/12/18 21:15 Temperature 99.0 F 99.0 F 99.0 F Pulse Rate 67 68 65 Respiratory Rate 15 15 15 Blood Pressure 140/82 123/70 118/73 Pulse Oximetry 99 98 100 04/12/18 21:30 04/12/18 21:45 04/12/18 22:00 Temperature 99.0 F 99.1 F 99.1 F Pulse Rate 61 59 L 59 L Respiratory Rate 15 15 15 Blood Pressure 102/60 97/57 L 97/63 L Pulse Oximetry 99 99 99 04/12/18 22:15 04/12/18 22:30 04/12/18 22:45 Temperature 99.1 F 99.1 F 99.1 F Pulse Rate 62 65 83 Respiratory Rate 15 15 24 Blood Pressure 103/65 111/71 140/71 Pulse Oximetry 98 100 97 04/12/18 23:00 04/12/18 23:11 04/12/18 23:15 Temperature 99.1 F 99.0 F Pulse Rate 76 67 66 Respiratory Rate 15 15 15 Blood Pressure 140/83 115/68 Pulse Oximetry 98 100 04/12/18 23:30 04/12/18 23:45 04/13/18 00:00 Temperature 99.0 F 99.0 F 98.8 F Pulse Rate 62 61 61 Respiratory Rate 15 15 15 Blood Pressure 104/61 106/64 103/66 Pulse Oximetry 99 99 99 04/13/18 00:11 04/13/18 00:15 04/13/18 00:30 Temperature 98.8 F 98.8 F Pulse Rate 60 60 Respiratory Rate 15 15 15 Blood Pressure 105/66 107/65 Pulse Oximetry 100 100 100 04/13/18 00:45 04/13/18 01:00 04/13/18 01:14 Temperature 98.8 F 98.8 F 98.8 F Pulse Rate 59 L 58 L 66 Respiratory Rate 15 15 15 Blood Pressure 101/65 105/65 Pulse Oximetry 100 100 100 04/13/18 01:15 04/13/18 01:30 04/13/18 01:45 Temperature 98.8 F 98.8 F 98.8 F Pulse Rate 65 63 63 Respiratory Rate 15 15 15 Blood Pressure 111/69 122/74 105/64 Pulse Oximetry 100 100 100 04/13/18 02:00 04/13/18 02:15 04/13/18 02:30 Temperature 98.8 F 98.8 F 98.8 F Pulse Rate 62 60 59 L Respiratory Rate 15 15 15 Blood Pressure 111/68 100/62 102/65 Pulse Oximetry 100 100 100 04/13/18 02:45 04/13/18 02:56 04/13/18 03:00 Temperature 98.8 F 98.6 F Pulse Rate 61 62 63 Respiratory Rate 15 15 18 Blood Pressure 104/65 132/69 Pulse Oximetry 100 100 04/13/18 03:15 04/13/18 03:30 04/13/18 03:38 Temperature 98.6 F 98.6 F Pulse Rate 65 65 Respiratory Rate 15 15 15 Blood Pressure 127/72 124/75 Pulse Oximetry 100 100 100 04/13/18 03:45 04/13/18 04:00 04/13/18 04:15 Temperature 98.6 F 98.6 F 98.6 F Pulse Rate 60 62 66 Respiratory Rate 15 15 15 Blood Pressure 110/70 133/82 111/69 Pulse Oximetry 100 100 99 04/13/18 04:30 04/13/18 04:45 04/13/18 05:00 Temperature 98.6 F 98.6 F 98.6 F Pulse Rate 64 68 65 Respiratory Rate 15 15 15 Blood Pressure 132/74 110/60 102/62 Pulse Oximetry 100 99 99 04/13/18 05:15 04/13/18 05:30 04/13/18 05:45 Temperature 98.6 F 98.6 F 98.4 F Pulse Rate 59 L 65 69 Respiratory Rate 15 15 15 Blood Pressure 94/58 L 122/71 114/69 Pulse Oximetry 99 100 99 04/13/18 06:00 04/13/18 06:15 04/13/18 06:30 Temperature 98.4 F 98.4 F 98.4 F Pulse Rate 67 61 59 L Respiratory Rate 15 15 15 Blood Pressure 113/67 87/53 L 93/57 L Pulse Oximetry 99 99 99 04/13/18 06:45 04/13/18 07:00 04/13/18 07:15 Temperature 98.4 F 98.4 F 98.4 F Pulse Rate 62 58 L 55 L Respiratory Rate 15 15 15 Blood Pressure 91/54 L 79/50 L 109/62 Pulse Oximetry 99 99 100 04/13/18 10:09 04/13/18 10:13 Temperature Pulse Rate 83 Respiratory Rate 16 17 Blood Pressure Pulse Oximetry 100 Intake & Output 04/12/18 04/13/18 04/13/18 18:59 06:59 18:59 Intake Total 1950 / 1950 1150 / 1150 1200 / 1200 Output Total 825 / 825 600 / 600 Balance 1125 / 1125 550 / 550 1200 / 1200 Weight 88.5 kg Intake: IV 1550 / 1550 650 / 650 1000 / 1000 Precedex Inj 1,000 MCG In NS 250 / 250 250 / 250 Inj 240 ML @ 0.2 MCG/KG/HR 4.31 mls/hr IV.CONT TITRATE PRN Rx# :[id number] D5W/1/2 NS Inj 1,000 ML @ 84 1000 / 1000 mls/hr IV.CONT .[id number] GIGI Rx# :[id number] 1/2 Normal Saline Inj 1,000 ML 1000 / 1000 @ 42 mls/hr IV.CONT .[id number] GIGI Rx#:[id number] Ofirmev Inj 1,000 mg In 100 ml 100 / 100 200 / 200 @ 400 mls/hr IV.SIG Q6H GIGI Rx# :[id number] Mycamine Inj 150 MG In NS Inj 100 / 100 100 ML @ 100 mls/hr IV.SIG Q24H GIGI Rx#:[id number] Zosyn 2.25 GM Premix 2.25 gm In 100 / 100 100 / 100 50 ml @ 100 mls/hr IV.SIG Q6H GIGI Rx#:[id number] KCl 40 mEq Premix Inj 40 meq In 100 / 100 100 ml @ 25 mls/hr IV.SIG UNSCH PRN Rx#:[id number] Water Bolus Amount 100 / 100 Free Water Amount 400 / 400 400 / 400 200 / 200 Output: Urine Amount (Catheter) 775 / 775 550 / 550 Indwelling Urethral Catheter 775 / 775 550 / 550 Gastric Drainage 50 / 50 50 / 50 Orogastric Tube 50 / 50 50 / 50 Other: Date of Last Bowel Movement 04/12/18 04/12/18 # Bowel Movements 1 # Incontinent Bowel Movements 1 - Urinary Catheter Management Indwelling Urethral Catheter Cath placed during this visit: no <Alec Childs E - Last Filed: 04/13/18 16:57> Results - Labs CBC & Chem 7: 04/13/18 03:58 04/13/18 03:58 Laboratory Results - last 24 hr 04/13/18 04/13/18 03:58 03:58 WBC 15.1 H RBC 3.24 L Hgb 10.0 L Hct 30.8 L MCV 95.2 MCH 30.9 MCHC 32.5 RDW 14.6 Plt Count 268 MPV 9.2 Neut % (Auto) 89.7 H Lymph % (Auto) 3.6 L [place] % (Auto) 5.0 Eos % (Auto) 1.4 Baso % (Auto) 0.3 Neut # (Auto) 13.6 H Lymph # (Auto) 0.5 L [place] # (Auto) 0.8 Eos # (Auto) 0.2 Baso # (Auto) 0.0 WBC Differential . Differential Comment Auto diff final Sodium 150 H Potassium 3.3 L Chloride 117 H Carbon Dioxide 26.8 Anion Gap 6 BUN 37 H Creatinine 1.08 Estimated GFR 68 L Random Glucose 104 Calcium 8.8 Phosphorus 2.9 Magnesium 2.5 Total Bilirubin 0.6 AST 34 ALT 99 H Alkaline Phosphatase 65 Total Protein 5.9 L Albumin 2.5 L Microbiology 04/11/18 18:00 Bronchial Washings - Left Lower Lobe Fungal Smear - Final No fungal elements seen 04/11/18 18:00 Bronchial - Bronchial Gram Stain - Final 04/11/18 18:00 Bronchial - Bronchial Bronchial Culture - Final Heavy growth normal respiratory giovanni 04/11/18 09:25 Sputum - Endotracheal Gram Stain - Final 04/11/18 09:25 Sputum - Endotracheal Sputum Culture - Final Heavy growth normal respiratory giovanni 04/12/18 00:50 Stool Enteric Pathogens (PCR) - Final No enteric pathogens detected by PCR (No Salmonella sp., Shigella sp., Campylobacter sp., Yersinia enterocolitica, Vibrio sp., Norovirus, or EHEC (Shiga Toxin 1 or Shiga Toxin 2) detected. 04/10/18 18:45 Sputum - Endotracheal Gram Stain - Final 04/10/18 18:45 Sputum - Endotracheal Sputum Culture - Final Rare growth normal respiratory giovanni 04/11/18 18:15 Blood - Peripheral Aerobic Blood Culture - Preliminary No growth in 1 day 04/11/18 18:15 Blood - Peripheral Anaerobic Blood Culture - Preliminary No growth in 1 day 04/11/18 18:00 Blood - Peripheral Aerobic Blood Culture - Preliminary No growth in 1 day 04/11/18 18:00 Blood - Peripheral Anaerobic Blood Culture - Preliminary No growth in 1 day 04/10/18 17:45 Blood - Peripheral Aerobic Blood Culture - Preliminary No growth in 2 days 04/10/18 17:45 Blood - Peripheral Anaerobic Blood Culture - Preliminary No growth in 2 days 04/10/18 17:50 Blood - Peripheral Aerobic Blood Culture - Preliminary No growth in 2 days 04/10/18 17:50 Blood - Peripheral Anaerobic Blood Culture - Preliminary No growth in 2 days 04/12/18 00:50 Stool Stool for WBCs - Final Rare WBC's 04/10/18 18:45 Catheterized Urine Urine Culture - Final No growth in 48 hours - Imaging Impressions Chest X-Ray 04/13/18 06:00 CONCLUSION: Support apparatus unchanged. Stable bilateral mostly basilar airspace disease since April 12. Abdomen X-Ray 04/13/18 08:00 CONCLUSION: 1. Some improvement in the gaseous distention of the bowel. Cecum previously measured 11 cm in diameter and now measures approximately 8 cm. 2. No pneumoperitoneum. Nasogastric tube appears to been advanced into the expected location of the duodenum <Eloisa Rice - Last Filed: 04/13/18 09:26> - Labs CBC & Chem 7: 04/13/18 03:58 04/13/18 03:58 Laboratory Results - last 24 hr 04/13/18 04/13/18 03:58 03:58 WBC 15.1 H RBC 3.24 L Hgb 10.0 L Hct 30.8 L MCV 95.2 MCH 30.9 MCHC 32.5 RDW 14.6 Plt Count 268 MPV 9.2 Neut % (Auto) 89.7 H Lymph % (Auto) 3.6 L [place] % (Auto) 5.0 Eos % (Auto) 1.4 Baso % (Auto) 0.3 Neut # (Auto) 13.6 H Lymph # (Auto) 0.5 L [place] # (Auto) 0.8 Eos # (Auto) 0.2 Baso # (Auto) 0.0 WBC Differential . Differential Comment Auto diff final Sodium 150 H Potassium 3.3 L Chloride 117 H Carbon Dioxide 26.8 Anion Gap 6 BUN 37 H Creatinine 1.08 Estimated GFR 68 L Random Glucose 104 Calcium 8.8 Phosphorus 2.9 Magnesium 2.5 Total Bilirubin 0.6 AST 34 ALT 99 H Alkaline Phosphatase 65 Total Protein 5.9 L Albumin 2.5 L Microbiology 04/11/18 18:15 Blood - Peripheral Aerobic Blood Culture - Preliminary No growth in 2 days 04/11/18 18:15 Blood - Peripheral Anaerobic Blood Culture - Preliminary No growth in 2 days 04/11/18 18:00 Blood - Peripheral Aerobic Blood Culture - Preliminary No growth in 2 days 04/11/18 18:00 Blood - Peripheral Anaerobic Blood Culture - Preliminary No growth in 2 days 04/10/18 17:45 Blood - Peripheral Aerobic Blood Culture - Preliminary No growth in 3 days 04/10/18 17:45 Blood - Peripheral Anaerobic Blood Culture - Preliminary No growth in 3 days 04/10/18 17:50 Blood - Peripheral Aerobic Blood Culture - Preliminary No growth in 3 days 04/10/18 17:50 Blood - Peripheral Anaerobic Blood Culture - Preliminary No growth in 3 days 04/11/18 18:00 Bronchial Washings - Left Lower Lobe Acid Fast Bacilli Smear - Final No acid fast bacilli seen 04/12/18 00:50 Stool Cryptosporidium Antigen - Final Negative - No Cryptosporicium antigen detected In selected cases of patients with a history of immunosuppression or foreign travel, a full ova and parasites examination may be desired. Contact the microbiology lab if full workup is indicated and subit another specimen for testing. 04/12/18 00:50 Stool Giardia Antigen (LISSETH) - Final Negative - No Giardia Antigen detected In selected cases of patients with a history of immunosuppression or foreign travel, a full ova and parasites examination may be desired. Contact the microbiology lab if full workup is indicated and subit another specimen for testing. 04/11/18 18:00 Bronchial Washings - Left Lower Lobe Fungal Smear - Final No fungal elements seen 04/11/18 18:00 Bronchial - Bronchial Gram Stain - Final 04/11/18 18:00 Bronchial - Bronchial Bronchial Culture - Final Heavy growth normal respiratory giovanni 04/11/18 09:25 Sputum - Endotracheal Gram Stain - Final 04/11/18 09:25 Sputum - Endotracheal Sputum Culture - Final Heavy growth normal respiratory giovanni 04/12/18 00:50 Stool Enteric Pathogens (PCR) - Final No enteric pathogens detected by PCR (No Salmonella sp., Shigella sp., Campylobacter sp., Yersinia enterocolitica, Vibrio sp., Norovirus, or EHEC (Shiga Toxin 1 or Shiga Toxin 2) detected. - Imaging Impressions Chest X-Ray 04/13/18 06:00 CONCLUSION: Support apparatus unchanged. Stable bilateral mostly basilar airspace disease since April 12. Abdomen X-Ray 04/13/18 08:00 CONCLUSION: 1. Some improvement in the gaseous distention of the bowel. Cecum previously measured 11 cm in diameter and now measures approximately 8 cm. 2. No pneumoperitoneum. Nasogastric tube appears to been advanced into the expected location of the duodenum <Alec Childs - Last Filed: 04/13/18 16:57> Assessment and Plan (1) Ileus Status: Acute Code(s): K56.7 - Ileus, unspecified - Plan Ileus: Patient is n.p.o., NG tube in place, on bowel regimen, KUB in a.m., supportive care. 04/12 Patient was seen and examined, more awake, able to carry conversation, he had a bowel movement, abdomen less tender, will continue bowel regimen for now 04/13 Improvement in gaseous distention on KUB this morning. NG tube in duodenum. No bowel movements overnight. Continue bowel regimen for now. KUB in the morning - Attending Attestation Dr. Childs <Eloisa Rice - Last Filed: 04/13/18 09:26> (1) Ileus Status: Acute Code(s): K56.7 - Ileus, unspecified - Attending Attestation patient laying comfortably in bed apparently had a bowel movement earlier and is passing gas abdomen is soft ileus resolved not much to add from a GI prospective we will sign off <Alec Childs - Last Filed: 04/13/18 16:57>
[2018-04-13] MEDS: Chlorhexidine 0.12% Oral Kit 15 ML UDC OROPHARYNG SCH ×2 (09:25→20:45)
[2018-04-13] MEDS: Senna/Docusate Sodium 8.6/50 MG Tablet PO SCH ×2 (09:26→20:44)
[2018-04-13] MEDS: Polyethylene Glycol 3350 17 GM Packet PO SCH ×2 (09:27→20:45)
[2018-04-13] MEDS: Enoxaparin Inj 40 MG/0.4 ML Syringe SQ SCH (09:27)
--- NOTE | 2018-04-13 12:44 | P.PN ---
Subjective Interval history: Jevon on ventilator support. Awake cooperative and squeezes hands. Had a long discussion with the family with a multidisciplinary meeting. They were advised that a tracheostomy would be the next step for long-term management. Further neurologic evaluation also would be necessary. He is not running any fever and is on antibiotics per ID. Still has an ileus and not on tube feeds. Physical Exam Vital signs: Vital Signs 04/12/18 12:45 04/12/18 12:58 04/12/18 13:00 Temperature 98.4 F 98.6 F 98.6 F Pulse Rate 64 62 63 Respiratory Rate 15 15 15 Blood Pressure 82/53 L 99/63 L 97/59 L Pulse Oximetry 98 99 99 04/12/18 13:15 04/12/18 13:30 04/12/18 13:45 Temperature 98.6 F 98.6 F 98.6 F Pulse Rate 63 62 65 Respiratory Rate 15 15 15 Blood Pressure 119/68 113/63 154/72 H Pulse Oximetry 98 99 98 04/12/18 14:00 04/12/18 14:15 04/12/18 14:30 Temperature 98.4 F 98.4 F 98.4 F Pulse Rate 65 64 64 Respiratory Rate 15 15 15 Blood Pressure 140/80 146/83 H 148/83 H Pulse Oximetry 99 99 99 04/12/18 15:00 04/12/18 15:15 04/12/18 15:30 Temperature 98.4 F 98.4 F 98.4 F Pulse Rate 64 66 70 Respiratory Rate 15 15 15 Blood Pressure 145/70 H 139/69 139/77 Pulse Oximetry 98 98 95 04/12/18 15:45 04/12/18 16:00 04/12/18 16:15 Temperature 98.8 F 98.8 F 99.0 F Pulse Rate 76 68 65 Respiratory Rate 15 15 15 Blood Pressure 131/69 116/66 104/63 Pulse Oximetry 95 100 96 04/12/18 16:30 04/12/18 16:45 04/12/18 17:00 Temperature 99.0 F 99.0 F 99.1 F Pulse Rate 62 61 64 Respiratory Rate 15 15 15 Blood Pressure 101/60 107/64 110/68 Pulse Oximetry 96 97 98 04/12/18 17:09 04/12/18 17:11 04/12/18 17:15 Temperature 99.1 F Pulse Rate 63 64 Respiratory Rate 15 15 15 Blood Pressure 109/67 Pulse Oximetry 98 98 04/12/18 17:33 04/12/18 17:45 04/12/18 18:00 Temperature 99.1 F 99.1 F 99.1 F Pulse Rate 63 63 83 Respiratory Rate 15 15 32 H Blood Pressure 132/75 108/68 169/84 H Pulse Oximetry 100 97 95 04/12/18 18:15 04/12/18 18:30 04/12/18 18:45 Temperature 99.1 F 99.0 F 99.0 F Pulse Rate 75 73 71 Respiratory Rate 15 15 15 Blood Pressure 142/82 H 141/86 H 137/87 Pulse Oximetry 97 98 99 04/12/18 19:00 04/12/18 19:15 04/12/18 19:30 Temperature 98.8 F 98.8 F 98.8 F Pulse Rate 71 72 65 Respiratory Rate 15 15 15 Blood Pressure 143/90 H 142/85 H 129/81 Pulse Oximetry 100 97 97 04/12/18 19:45 04/12/18 20:00 04/12/18 20:02 Temperature 98.8 F 98.8 F Pulse Rate 64 63 64 Respiratory Rate 15 15 15 Blood Pressure 127/80 118/74 Pulse Oximetry 98 98 100 04/12/18 20:15 04/12/18 20:30 04/12/18 20:45 Temperature 99.0 F 99.0 F 99.0 F Pulse Rate 67 66 67 Respiratory Rate 15 15 15 Blood Pressure 131/83 132/85 140/82 Pulse Oximetry 98 98 99 04/12/18 21:00 04/12/18 21:15 04/12/18 21:30 Temperature 99.0 F 99.0 F 99.0 F Pulse Rate 68 65 61 Respiratory Rate 15 15 15 Blood Pressure 123/70 118/73 102/60 Pulse Oximetry 98 100 99 04/12/18 21:45 04/12/18 22:00 04/12/18 22:15 Temperature 99.1 F 99.1 F 99.1 F Pulse Rate 59 L 59 L 62 Respiratory Rate 15 15 15 Blood Pressure 97/57 L 97/63 L 103/65 Pulse Oximetry 99 99 98 04/12/18 22:30 04/12/18 22:45 04/12/18 23:00 Temperature 99.1 F 99.1 F 99.1 F Pulse Rate 65 83 76 Respiratory Rate 15 24 15 Blood Pressure 111/71 140/71 140/83 Pulse Oximetry 100 97 98 04/12/18 23:11 04/12/18 23:15 04/12/18 23:30 Temperature 99.0 F 99.0 F Pulse Rate 67 66 62 Respiratory Rate 15 15 15 Blood Pressure 115/68 104/61 Pulse Oximetry 100 99 04/12/18 23:45 04/13/18 00:00 04/13/18 00:11 Temperature 99.0 F 98.8 F Pulse Rate 61 61 Respiratory Rate 15 15 15 Blood Pressure 106/64 103/66 Pulse Oximetry 99 99 100 04/13/18 00:15 04/13/18 00:30 04/13/18 00:45 Temperature 98.8 F 98.8 F 98.8 F Pulse Rate 60 60 59 L Respiratory Rate 15 15 15 Blood Pressure 105/66 107/65 101/65 Pulse Oximetry 100 100 100 04/13/18 01:00 04/13/18 01:14 04/13/18 01:15 Temperature 98.8 F 98.8 F 98.8 F Pulse Rate 58 L 66 65 Respiratory Rate 15 15 15 Blood Pressure 105/65 111/69 Pulse Oximetry 100 100 100 04/13/18 01:30 04/13/18 01:45 04/13/18 02:00 Temperature 98.8 F 98.8 F 98.8 F Pulse Rate 63 63 62 Respiratory Rate 15 15 15 Blood Pressure 122/74 105/64 111/68 Pulse Oximetry 100 100 100 04/13/18 02:15 04/13/18 02:30 04/13/18 02:45 Temperature 98.8 F 98.8 F 98.8 F Pulse Rate 60 59 L 61 Respiratory Rate 15 15 15 Blood Pressure 100/62 102/65 104/65 Pulse Oximetry 100 100 100 04/13/18 02:56 04/13/18 03:00 04/13/18 03:15 Temperature 98.6 F 98.6 F Pulse Rate 62 63 65 Respiratory Rate 15 18 15 Blood Pressure 132/69 127/72 Pulse Oximetry 100 100 04/13/18 03:30 04/13/18 03:38 04/13/18 03:45 Temperature 98.6 F 98.6 F Pulse Rate 65 60 Respiratory Rate 15 15 15 Blood Pressure 124/75 110/70 Pulse Oximetry 100 100 100 04/13/18 04:00 04/13/18 04:15 04/13/18 04:30 Temperature 98.6 F 98.6 F 98.6 F Pulse Rate 62 66 64 Respiratory Rate 15 15 15 Blood Pressure 133/82 111/69 132/74 Pulse Oximetry 100 99 100 04/13/18 04:45 04/13/18 05:00 04/13/18 05:15 Temperature 98.6 F 98.6 F 98.6 F Pulse Rate 68 65 59 L Respiratory Rate 15 15 15 Blood Pressure 110/60 102/62 94/58 L Pulse Oximetry 99 99 99 04/13/18 05:30 04/13/18 05:45 04/13/18 06:00 Temperature 98.6 F 98.4 F 98.4 F Pulse Rate 65 69 67 Respiratory Rate 15 15 15 Blood Pressure 122/71 114/69 113/67 Pulse Oximetry 100 99 99 04/13/18 06:15 04/13/18 06:30 04/13/18 06:45 Temperature 98.4 F 98.4 F 98.4 F Pulse Rate 61 59 L 62 Respiratory Rate 15 15 15 Blood Pressure 87/53 L 93/57 L 91/54 L Pulse Oximetry 99 99 99 04/13/18 07:00 04/13/18 07:15 04/13/18 10:09 Temperature 98.4 F 98.4 F Pulse Rate 58 L 55 L Respiratory Rate 15 15 16 Blood Pressure 79/50 L 109/62 Pulse Oximetry 99 100 100 04/13/18 10:13 Temperature Pulse Rate 83 Respiratory Rate 17 Blood Pressure Pulse Oximetry Intake & Output 04/12/18 04/13/18 04/13/18 18:59 06:59 18:59 Intake Total 1950 / 1950 1150 / 1150 Output Total 825 / 825 600 / 600 Balance 1125 / 1125 550 / 550 Weight 88.5 kg Intake: IV 1550 / 1550 650 / 650 Precedex Inj 1,000 MCG In NS 250 / 250 250 / 250 Inj 240 ML @ 0.2 MCG/KG/HR 4.31 mls/hr IV.CONT TITRATE PRN Rx# :[id number] D5W/1/2 NS Inj 1,000 ML @ 84 1000 / 1000 mls/hr IV.CONT .[id number] GIGI Rx# :[id number] Ofirmev Inj 1,000 mg In 100 ml 100 / 100 200 / 200 @ 400 mls/hr IV.SIG Q6H GIGI Rx# :[id number] Mycamine Inj 150 MG In NS Inj 100 / 100 100 ML @ 100 mls/hr IV.SIG Q24H GIGI Rx#:[id number] Zosyn 2.25 GM Premix 2.25 gm In 100 / 100 100 / 100 50 ml @ 100 mls/hr IV.SIG Q6H GIGI Rx#:[id number] KCl 40 mEq Premix Inj 40 meq In 100 / 100 100 ml @ 25 mls/hr IV.SIG UNSCH PRN Rx#:[id number] Water Bolus Amount 100 / 100 Free Water Amount 400 / 400 400 / 400 Output: Urine Amount (Catheter) 775 / 775 550 / 550 Indwelling Urethral Catheter 775 / 775 550 / 550 Gastric Drainage 50 / 50 50 / 50 Orogastric Tube 50 / 50 50 / 50 Other: Date of Last Bowel Movement 04/12/18 04/12/18 # Bowel Movements 1 # Incontinent Bowel Movements 1 Narrative: GENERAL: Elderly white male awake on ventilator support with ET tube. SKIN: Warm and dry, intact, No lesions seen. HEAD: Normocephalic. Throat clear EYES: No scleral icterus. No injection or drainage. Pupils are equal and reactive to light. NECK: Supple, trachea midline. No JVD or lymphadenopathy. CARDIOVASCULAR: Regular rate and rhythm without murmurs, gallops, or rubs. RESPIRATORY: Breath sounds equal bilaterally. Decreased breath sounds at left base . Few coarse wheezes in the upper chest GASTROINTESTINAL: Abdomen not distended. Hypoactive bowel sounds. Nontender BACK: Nontender without obvious deformity. No CVA tenderness. Neuro: Awake and responsive and moves all extremities. - Urinary Catheter Management Indwelling Urethral Catheter Cath placed during this visit: yes Reason for continuing: Hourly intake/output Insertion date: 04/10/18 Insertion time: 01:45 Results - Labs CBC & Chem 7: 04/13/18 03:58 04/13/18 03:58 Laboratory Results - last 24 hr 04/13/18 04/13/18 03:58 03:58 WBC 15.1 H RBC 3.24 L Hgb 10.0 L Hct 30.8 L MCV 95.2 MCH 30.9 MCHC 32.5 RDW 14.6 Plt Count 268 MPV 9.2 Neut % (Auto) 89.7 H Lymph % (Auto) 3.6 L Pershing % (Auto) 5.0 Eos % (Auto) 1.4 Baso % (Auto) 0.3 Neut # (Auto) 13.6 H Lymph # (Auto) 0.5 L Pershing # (Auto) 0.8 Eos # (Auto) 0.2 Baso # (Auto) 0.0 WBC Differential . Differential Comment Auto diff final Sodium 150 H Potassium 3.3 L Chloride 117 H Carbon Dioxide 26.8 Anion Gap 6 BUN 37 H Creatinine 1.08 Estimated GFR 68 L Random Glucose 104 Calcium 8.8 Phosphorus 2.9 Magnesium 2.5 Total Bilirubin 0.6 AST 34 ALT 99 H Alkaline Phosphatase 65 Total Protein 5.9 L Albumin 2.5 L Microbiology 04/11/18 18:15 Blood - Peripheral Aerobic Blood Culture - Preliminary No growth in 2 days 04/11/18 18:15 Blood - Peripheral Anaerobic Blood Culture - Preliminary No growth in 2 days 04/11/18 18:00 Blood - Peripheral Aerobic Blood Culture - Preliminary No growth in 2 days 04/11/18 18:00 Blood - Peripheral Anaerobic Blood Culture - Preliminary No growth in 2 days 04/10/18 17:45 Blood - Peripheral Aerobic Blood Culture - Preliminary No growth in 3 days 04/10/18 17:45 Blood - Peripheral Anaerobic Blood Culture - Preliminary No growth in 3 days 04/10/18 17:50 Blood - Peripheral Aerobic Blood Culture - Preliminary No growth in 3 days 04/10/18 17:50 Blood - Peripheral Anaerobic Blood Culture - Preliminary No growth in 3 days 04/11/18 18:00 Bronchial Washings - Left Lower Lobe Acid Fast Bacilli Smear - Final No acid fast bacilli seen 04/12/18 00:50 Stool Cryptosporidium Antigen - Final Negative - No Cryptosporicium antigen detected In selected cases of patients with a history of immunosuppression or foreign travel, a full ova and parasites examination may be desired. Contact the microbiology lab if full workup is indicated and subit another specimen for testing. 04/12/18 00:50 Stool Giardia Antigen (LISSETH) - Final Negative - No Giardia Antigen detected In selected cases of patients with a history of immunosuppression or foreign travel, a full ova and parasites examination may be desired. Contact the microbiology lab if full workup is indicated and subit another specimen for testing. 04/11/18 18:00 Bronchial Washings - Left Lower Lobe Fungal Smear - Final No fungal elements seen 04/11/18 18:00 Bronchial - Bronchial Gram Stain - Final 04/11/18 18:00 Bronchial - Bronchial Bronchial Culture - Final Heavy growth normal respiratory giovanni 04/11/18 09:25 Sputum - Endotracheal Gram Stain - Final 04/11/18 09:25 Sputum - Endotracheal Sputum Culture - Final Heavy growth normal respiratory giovanni 04/12/18 00:50 Stool Enteric Pathogens (PCR) - Final No enteric pathogens detected by PCR (No Salmonella sp., Shigella sp., Campylobacter sp., Yersinia enterocolitica, Vibrio sp., Norovirus, or EHEC (Shiga Toxin 1 or Shiga Toxin 2) detected. 04/10/18 18:45 Sputum - Endotracheal Gram Stain - Final 04/10/18 18:45 Sputum - Endotracheal Sputum Culture - Final Rare growth normal respiratory giovanni 04/12/18 00:50 Stool Stool for WBCs - Final Rare WBC's 04/10/18 18:45 Catheterized Urine Urine Culture - Final No growth in 48 hours - Imaging Impressions Chest X-Ray 04/13/18 06:00 CONCLUSION: Support apparatus unchanged. Stable bilateral mostly basilar airspace disease since April 12. Abdomen X-Ray 04/13/18 08:00 CONCLUSION: 1. Some improvement in the gaseous distention of the bowel. Cecum previously measured 11 cm in diameter and now measures approximately 8 cm. 2. No pneumoperitoneum. Nasogastric tube appears to been advanced into the expected location of the duodenum Assessment and Plan - Assessment (1) Respiratory failure Code(s): J96.90 - Respiratory failure, unspecified, unspecified whether with hypoxia or hypercapnia Status: Acute (2) Atelectasis Code(s): J98.11 - Atelectasis Status: Acute (3) Neck pain, chronic Code(s): M54.2 - Cervicalgia; G89.29 - Other chronic pain Status: Chronic (4) Other cervical disc degeneration at C5-C6 level Code(s): M50.322 - Other cervical disc degeneration at C5-C6 level Status: Chronic (5) Protrusion of cervical intervertebral disc Code(s): M50.20 - Other cervical disc displacement, unspecified cervical region Status: Chronic (6) Adult failure to thrive Code(s): R62.7 - Adult failure to thrive Status: Acute (7) Shortness of breath Code(s): R06.02 - Shortness of breath Status: Acute (8) Weakness generalized Code(s): R53.1 - Weakness Status: Acute (9) Acute hyponatremia Code(s): E87.1 - Hypo-osmolality and hyponatremia Status: Acute (10) Ventilator dependent Code(s): Z99.11 - Dependence on respirator [ventilator] status Status: Acute - Plan 1 continue on AC rate of 15 PEEP of 5 and FiO2 40 % 2 wean FiO2 to keep sats greater than 92 3. Chest x-ray in a.m. 4. DuoNeb nebs every 6 hours as needed 5. Precedex for sedation 6. Tracheal lavage and suction as needed 7. Continue Lovenox 40 mg subcu daily 8. Continue antibiotics per ID 9. CBC BMP in a.m. 10. CPAP trial daily up to 8 hours and respiratory parameters. 11. PT evaluation 12. Discussed with family and patient about trach for long-term vent management. 13. Family conference with Dr. Bell and nursing staff for 45 minutes.
--- NOTE | 2018-04-13 13:28 | P.PNCC ---
Subjective Subjective Remarks/Hospital Course: This 67-year-old came into the emergency room today with his and daughter. On 02/13/2018, he had a microdiscectomy, C5-C6, by Dr. Schwarz. He was discharged home the next day. A few days after, he had not been feeling well, short of breath, disoriented, generally weak, symptoms were getting worse, disorientation was worse. He was referred to emergency department by his primary care physician for an evaluation. In the ED he was found to be in severe hypercarbic respiratory acidosis and was intubated by ED attending. 04/01: CO2 retention corrected. Remains mildly alkalotic due to chronic CO2 elevation. PH normalized. Still requiring vasopressor therapy with norepinephrine. Broad-spectrum antibiotic coverage started. Lumbar puncture performed with opening pressure 20 and crystal-clear fluid, sent for cell counts , chemistries and culture. HSV included. One extra tube sent for future studies if necessary. Ammonia level 71 - repeat daily. 04/02: CSF appears benign. Repeat ammonia level normal. Gamma GT normal. Cardiac echo estimated of 45% ejection fraction requires a little additional investigation -patient has been chronically short of breath for several weeks now. Leukocytosis and left shift persists. Gram-positive cocci and white cells seen in sputum. This man clearly became acutely and critically ill - exact cause still eludes us. 04/03: Leukocytosis improved. Remains quite rigid when stimulated. Continues to move 4 limbs with purpose and follows commands with 4 limbs. Sputum demonstrates white blood cells and gram-negative rods. 04/04: Improved color and perfusion. Extubated yesterday afternoon but failed after about 45 minutes -developed somnolence then obtundation, appeared to be having difficulty taking a breath, concern for vocal cord dysfunction. On reintubation the cord edges were irregular but otherwise normal in appearance. I could not assess cord function as patient was not alert enough to cooperate with commands. We will definitely pursue possibilities of vocal cord dysfunction and or phrenic nerve paralysis once we get him extubated. Ideally, a sniff test under fluoroscopy would demonstrate any paradoxical diaphragm motion. 04/05: Afebrile. Neurologically appears intact. Daughter concerned about "appears distant" however on 40 mcg/kg/min of propofol and 250 mcg an hour fentanyl. No bowel movement since admission. Tube feeding only at 20 cc an hour. 04/06: Afebrile. Neurologically intact. Following commands.. Positive BM. Labile blood pressures yesterday. Replace potassium currently. 04/07: Patient writing notes today. Chest x-ray clear. Elevated left diaphragm , probably dysfunctional. Continued encephalopathy and generalized weakness chris very concerning. We will try Aminophyllin today to see if we can get some diaphragm and central nervous system stimulation. 04/08: Started on theophylline yesterday. Check level in a.m. Will attempt PSV trial today. Noted pulmonology requests possible T-bar with ABG when appropriate. Afebrile. 04/09: T-max 100. theophylline currently 3.7. Currently on CPAP trials. 02/18. 45%. Check ABG at 10 today. Desaturated yesterday currently back at 40%. 04/10: Resting in bed. Episode of nausea overnight. Negative workup. Evaluated positive BM 04/08. Patient more agitated overnight. Propofol discontinued due to hypotension. Currently on fentanyl drip. Theophylline. Creatinine currently 2.0 we will consult nephrology. Discontinue lisinopril. Receiving one half normal saline bolus currently. 04/11: T-max 101.1. Increasing O2 records.Increasing white blood cell count. For the cuff is overinflated to palpate the vocal cords. Leak by examination. Will change ET tube in place central line today. Empirically start antibiotics for aspiration. Not tolerating tube feeds and currently to low inner wall suction. Check KUB after ET tube exchange and central line placement. Restart metoclopramide. Positive BMs. 04/12: Yesterday, CT thorax revealed collapsed left lower lung. Status post bronchoscopy with reinflation of lung. Better saturations today. Continues with small and large bowel colonic distention. Right: 11 cm. GI is following. Might need decompression. Current orogastric tube to low intermittent wall suction. SUBJECTIVE: 04/13: Improved small and large bowel colonic distention. Down to 8 cm long family discussion. We will perform percutaneous tracheostomy and PEG tube as well. Request second neurological opinion. In better spirits today. Objective Vital Signs / I&O: Vital Signs 04/12/18 13:30 04/12/18 13:45 04/12/18 14:00 Temperature 98.6 F 98.6 F 98.4 F Pulse Rate 62 65 65 Respiratory Rate 15 15 15 Blood Pressure 113/63 154/72 H 140/80 Pulse Oximetry 99 98 99 04/12/18 14:15 04/12/18 14:30 04/12/18 15:00 Temperature 98.4 F 98.4 F 98.4 F Pulse Rate 64 64 64 Respiratory Rate 15 15 15 Blood Pressure 146/83 H 148/83 H 145/70 H Pulse Oximetry 99 99 98 04/12/18 15:15 04/12/18 15:30 04/12/18 15:45 Temperature 98.4 F 98.4 F 98.8 F Pulse Rate 66 70 76 Respiratory Rate 15 15 15 Blood Pressure 139/69 139/77 131/69 Pulse Oximetry 98 95 95 04/12/18 16:00 04/12/18 16:15 04/12/18 16:30 Temperature 98.8 F 99.0 F 99.0 F Pulse Rate 68 65 62 Respiratory Rate 15 15 15 Blood Pressure 116/66 104/63 101/60 Pulse Oximetry 100 96 96 04/12/18 16:45 04/12/18 17:00 04/12/18 17:09 Temperature 99.0 F 99.1 F Pulse Rate 61 64 Respiratory Rate 15 15 15 Blood Pressure 107/64 110/68 Pulse Oximetry 97 98 98 04/12/18 17:11 04/12/18 17:15 04/12/18 17:33 Temperature 99.1 F 99.1 F Pulse Rate 63 64 63 Respiratory Rate 15 15 15 Blood Pressure 109/67 132/75 Pulse Oximetry 98 100 04/12/18 17:45 04/12/18 18:00 04/12/18 18:15 Temperature 99.1 F 99.1 F 99.1 F Pulse Rate 63 83 75 Respiratory Rate 15 32 H 15 Blood Pressure 108/68 169/84 H 142/82 H Pulse Oximetry 97 95 97 04/12/18 18:30 04/12/18 18:45 04/12/18 19:00 Temperature 99.0 F 99.0 F 98.8 F Pulse Rate 73 71 71 Respiratory Rate 15 15 15 Blood Pressure 141/86 H 137/87 143/90 H Pulse Oximetry 98 99 100 04/12/18 19:15 04/12/18 19:30 04/12/18 19:45 Temperature 98.8 F 98.8 F 98.8 F Pulse Rate 72 65 64 Respiratory Rate 15 15 15 Blood Pressure 142/85 H 129/81 127/80 Pulse Oximetry 97 97 98 04/12/18 20:00 04/12/18 20:02 04/12/18 20:15 Temperature 98.8 F 99.0 F Pulse Rate 63 64 67 Respiratory Rate 15 15 15 Blood Pressure 118/74 131/83 Pulse Oximetry 98 100 98 04/12/18 20:30 04/12/18 20:45 04/12/18 21:00 Temperature 99.0 F 99.0 F 99.0 F Pulse Rate 66 67 68 Respiratory Rate 15 15 15 Blood Pressure 132/85 140/82 123/70 Pulse Oximetry 98 99 98 04/12/18 21:15 04/12/18 21:30 04/12/18 21:45 Temperature 99.0 F 99.0 F 99.1 F Pulse Rate 65 61 59 L Respiratory Rate 15 15 15 Blood Pressure 118/73 102/60 97/57 L Pulse Oximetry 100 99 99 04/12/18 22:00 04/12/18 22:15 04/12/18 22:30 Temperature 99.1 F 99.1 F 99.1 F Pulse Rate 59 L 62 65 Respiratory Rate 15 15 15 Blood Pressure 97/63 L 103/65 111/71 Pulse Oximetry 99 98 100 04/12/18 22:45 04/12/18 23:00 04/12/18 23:11 Temperature 99.1 F 99.1 F Pulse Rate 83 76 67 Respiratory Rate 24 15 15 Blood Pressure 140/71 140/83 Pulse Oximetry 97 98 04/12/18 23:15 04/12/18 23:30 04/12/18 23:45 Temperature 99.0 F 99.0 F 99.0 F Pulse Rate 66 62 61 Respiratory Rate 15 15 15 Blood Pressure 115/68 104/61 106/64 Pulse Oximetry 100 99 99 04/13/18 00:00 04/13/18 00:11 04/13/18 00:15 Temperature 98.8 F 98.8 F Pulse Rate 61 60 Respiratory Rate 15 15 15 Blood Pressure 103/66 105/66 Pulse Oximetry 99 100 100 04/13/18 00:30 04/13/18 00:45 04/13/18 01:00 Temperature 98.8 F 98.8 F 98.8 F Pulse Rate 60 59 L 58 L Respiratory Rate 15 15 15 Blood Pressure 107/65 101/65 105/65 Pulse Oximetry 100 100 100 04/13/18 01:14 04/13/18 01:15 04/13/18 01:30 Temperature 98.8 F 98.8 F 98.8 F Pulse Rate 66 65 63 Respiratory Rate 15 15 15 Blood Pressure 111/69 122/74 Pulse Oximetry 100 100 100 04/13/18 01:45 04/13/18 02:00 04/13/18 02:15 Temperature 98.8 F 98.8 F 98.8 F Pulse Rate 63 62 60 Respiratory Rate 15 15 15 Blood Pressure 105/64 111/68 100/62 Pulse Oximetry 100 100 100 04/13/18 02:30 04/13/18 02:45 04/13/18 02:56 Temperature 98.8 F 98.8 F Pulse Rate 59 L 61 62 Respiratory Rate 15 15 15 Blood Pressure 102/65 104/65 Pulse Oximetry 100 100 04/13/18 03:00 04/13/18 03:15 04/13/18 03:30 Temperature 98.6 F 98.6 F 98.6 F Pulse Rate 63 65 65 Respiratory Rate 18 15 15 Blood Pressure 132/69 127/72 124/75 Pulse Oximetry 100 100 100 04/13/18 03:38 04/13/18 03:45 04/13/18 04:00 Temperature 98.6 F 98.6 F Pulse Rate 60 62 Respiratory Rate 15 15 15 Blood Pressure 110/70 133/82 Pulse Oximetry 100 100 100 04/13/18 04:15 04/13/18 04:30 04/13/18 04:45 Temperature 98.6 F 98.6 F 98.6 F Pulse Rate 66 64 68 Respiratory Rate 15 15 15 Blood Pressure 111/69 132/74 110/60 Pulse Oximetry 99 100 99 04/13/18 05:00 04/13/18 05:15 04/13/18 05:30 Temperature 98.6 F 98.6 F 98.6 F Pulse Rate 65 59 L 65 Respiratory Rate 15 15 15 Blood Pressure 102/62 94/58 L 122/71 Pulse Oximetry 99 99 100 04/13/18 05:45 04/13/18 06:00 04/13/18 06:15 Temperature 98.4 F 98.4 F 98.4 F Pulse Rate 69 67 61 Respiratory Rate 15 15 15 Blood Pressure 114/69 113/67 87/53 L Pulse Oximetry 99 99 99 04/13/18 06:30 04/13/18 06:45 04/13/18 07:00 Temperature 98.4 F 98.4 F 98.4 F Pulse Rate 59 L 62 58 L Respiratory Rate 15 15 15 Blood Pressure 93/57 L 91/54 L 79/50 L Pulse Oximetry 99 99 99 04/13/18 07:15 04/13/18 10:09 04/13/18 10:13 Temperature 98.4 F Pulse Rate 55 L 83 Respiratory Rate 15 16 17 Blood Pressure 109/62 Pulse Oximetry 100 100 Intake & Output 04/12/18 04/13/18 04/13/18 18:59 06:59 18:59 Intake Total 1950 / 1950 1150 / 1150 Output Total 825 / 825 600 / 600 Balance 1125 / 1125 550 / 550 Weight 88.5 kg Intake: IV 1550 / 1550 650 / 650 Precedex Inj 1,000 MCG In NS 250 / 250 250 / 250 Inj 240 ML @ 0.2 MCG/KG/HR 4.31 mls/hr IV.CONT TITRATE PRN Rx# :[id number] D5W/1/2 NS Inj 1,000 ML @ 84 1000 / 1000 mls/hr IV.CONT .[id number] GIGI Rx# :[id number] Ofirmev Inj 1,000 mg In 100 ml 100 / 100 200 / 200 @ 400 mls/hr IV.SIG Q6H GIGI Rx# :[id number] Mycamine Inj 150 MG In NS Inj 100 / 100 100 ML @ 100 mls/hr IV.SIG Q24H GIGI Rx#:[id number] Zosyn 2.25 GM Premix 2.25 gm In 100 / 100 100 / 100 50 ml @ 100 mls/hr IV.SIG Q6H GIGI Rx#:[id number] KCl 40 mEq Premix Inj 40 meq In 100 / 100 100 ml @ 25 mls/hr IV.SIG UNSCH PRN Rx#:[id number] Water Bolus Amount 100 / 100 Free Water Amount 400 / 400 400 / 400 Output: Urine Amount (Catheter) 775 / 775 550 / 550 Indwelling Urethral Catheter 775 / 775 550 / 550 Gastric Drainage 50 / 50 50 / 50 Orogastric Tube 50 / 50 50 / 50 Other: Date of Last Bowel Movement 04/12/18 04/12/18 # Bowel Movements 1 # Incontinent Bowel Movements 1 Result Diagrams: 04/13/18 03:58 04/13/18 03:58 Other Results: Microbiology 04/11/18 18:15 Blood - Peripheral Aerobic Blood Culture - Preliminary No growth in 2 days 04/11/18 18:15 Blood - Peripheral Anaerobic Blood Culture - Preliminary No growth in 2 days 04/11/18 18:00 Blood - Peripheral Aerobic Blood Culture - Preliminary No growth in 2 days 04/11/18 18:00 Blood - Peripheral Anaerobic Blood Culture - Preliminary No growth in 2 days 04/10/18 17:45 Blood - Peripheral Aerobic Blood Culture - Preliminary No growth in 3 days 04/10/18 17:45 Blood - Peripheral Anaerobic Blood Culture - Preliminary No growth in 3 days 04/10/18 17:50 Blood - Peripheral Aerobic Blood Culture - Preliminary No growth in 3 days 04/10/18 17:50 Blood - Peripheral Anaerobic Blood Culture - Preliminary No growth in 3 days 04/11/18 18:00 Bronchial Washings - Left Lower Lobe Acid Fast Bacilli Smear - Final No acid fast bacilli seen 04/12/18 00:50 Stool Cryptosporidium Antigen - Final Negative - No Cryptosporicium antigen detected In selected cases of patients with a history of immunosuppression or foreign travel, a full ova and parasites examination may be desired. Contact the microbiology lab if full workup is indicated and subit another specimen for testing. 04/12/18 00:50 Stool Giardia Antigen (LISSETH) - Final Negative - No Giardia Antigen detected In selected cases of patients with a history of immunosuppression or foreign travel, a full ova and parasites examination may be desired. Contact the microbiology lab if full workup is indicated and subit another specimen for testing. 04/11/18 18:00 Bronchial Washings - Left Lower Lobe Fungal Smear - Final No fungal elements seen 04/11/18 18:00 Bronchial - Bronchial Gram Stain - Final 04/11/18 18:00 Bronchial - Bronchial Bronchial Culture - Final Heavy growth normal respiratory giovanni 04/11/18 09:25 Sputum - Endotracheal Gram Stain - Final 04/11/18 09:25 Sputum - Endotracheal Sputum Culture - Final Heavy growth normal respiratory giovanni 04/12/18 00:50 Stool Enteric Pathogens (PCR) - Final No enteric pathogens detected by PCR (No Salmonella sp., Shigella sp., Campylobacter sp., Yersinia enterocolitica, Vibrio sp., Norovirus, or EHEC (Shiga Toxin 1 or Shiga Toxin 2) detected. 04/10/18 18:45 Sputum - Endotracheal Gram Stain - Final 04/10/18 18:45 Sputum - Endotracheal Sputum Culture - Final Rare growth normal respiratory giovanni 04/12/18 00:50 Stool Stool for WBCs - Final Rare WBC's 04/10/18 18:45 Catheterized Urine Urine Culture - Final No growth in 48 hours 03/31/18 19:04 Blood - Peripheral Aerobic Blood Culture - Final No growth in 5 days 03/31/18 19:04 Blood - Peripheral Anaerobic Blood Culture - Final No growth in 5 days 03/31/18 19:09 Blood - Peripheral Aerobic Blood Culture - Final No growth in 5 days 03/31/18 19:09 Blood - Peripheral Anaerobic Blood Culture - Final No growth in 5 days 04/01/18 18:15 Lumbar Puncture Gram Stain - Final 04/01/18 18:15 Lumbar Puncture CSF Culture - Final No growth in 72 hours 04/01/18 06:00 Sputum - Endotracheal Gram Stain - Final 04/01/18 06:00 Sputum - Endotracheal Sputum Culture - Final Klebsiella oxytoca 04/01/18 06:00 Nasal Wash Influenza Types A,B Antigen - Final Negative for FLU A and B antigen Infection due to influenza A or B cannot be ruled out since the antigen present in the sample may be below the detection limit of the test. Imaging: Head MRI 03/31/18 00:00 CONCLUSION: Negative exam Chest X-Ray 03/31/18 12:15 CONCLUSION: 1. Hypoinflation with probable atelectatic changes above the left hemidiaphragm. 2. Otherwise, no acute cardiopulmonary process. Head CT 03/31/18 12:16 CONCLUSION: 1. Negative CT Head non contrast. . Chest CTA 03/31/18 14:39 CONCLUSION: 1. Bibasilar atelectatic changes, left greater than right. No confluent infiltrate. 2. No pulmonary embolus. 3. Atherosclerotic calcification of the coronary arteries. Chest X-Ray 03/31/18 16:11 CONCLUSION: 1. Hypoinflation with persistent left basilar atelectasis. 2. Endotracheal tube tip at the clavicular heads, above the duane. Cervical Spine MRI 03/31/18 16:17 CONCLUSION: 1. Status post fusion at the C5-C6 level. There is susceptibility artifact from the hardware. 2. A significant area of stenosis in the thecal sac is not seen. 3. Facet hypertrophy seen throughout with scattered areas of neural foraminal narrowing as described above. 4. The patient is intubated with fluid in the hypopharynx, laryngeal pharynx, and upper trachea around the ET tube and above the tracheal ET tube cuff. 5. The does appear to be some mild soft tissue swelling in the prevertebral region best seen on the sagittal images. Chest X-Ray 04/01/18 04:29 CONCLUSION: 1. Nasogastric tube and left subclavian central venous catheter now in place. 2. Mild bilateral lower lung zone atelectasis unchanged. No evidence of pneumothorax. Chest X-Ray 04/02/18 04:00 CONCLUSION: No significant interval change. Mild bilateral lower lung zone atelectasis. Chest X-Ray 04/04/18 00:00 CONCLUSION: Stable chest. Persistent bibasilar patchy opacities. Chest X-Ray 04/06/18 06:00 CONCLUSION: Some improvement in the bibasilar consolidations. Chest X-Ray 04/07/18 06:00 CONCLUSION: ET tube in good position. Lungs are grossly clear. Chest X-Ray 04/08/18 16:38 CONCLUSION: No significant interval change. Mild patchy bilateral lower lung opacity. Chest X-Ray 04/09/18 06:00 CONCLUSION: 1. No significant interval change. 2. Stable ETT and NGT. 3. Mild bilateral lower lobe patchy airspace disease. Abdomen X-Ray 04/09/18 20:57 CONCLUSION: Gastric tube tip within the stomach. Abdomen/Bladder Ultrasound 04/10/18 08:05 CONCLUSION: 1. Probable complex cyst coming off the right lower pole kidney appears smaller since 2017 CT examination of the abdomen. Abdomen X-Ray 04/11/18 00:00 CONCLUSION: Moderate air throughout small and large bowel without evidence of pneumatosis or free air on these [address] 04/11/18 00:00 CONCLUSION: 1. Patchy nodular opacities in the right lower lobe coalescing posteriorly most consistent with an infectious etiology such as bronchopneumonia. 2. Near complete left lower lobe collapse and dense airspace consolidation in the posterior right lower lobe. Differential considerations include aspiration. 3. Coronary artery cavitations. Chest X-Ray 04/11/18 06:00 CONCLUSION: Stable exam. Support apparatus unchanged. Mild basilar airspace disease persists. Chest X-Ray 04/11/18 08:15 CONCLUSION: 1. Stable ETT and NGT. 2. Right IJ central line in good position without pneumothorax. 3. Stable mild bibasilar airspace disease. Abdomen/Pelvis CT 04/11/18 13:06 CONCLUSION: 1. Bilateral lower lobe consolidations left greater than right. Distended small and large bowel without evidence of wall thickening or obstruction. NG tube coiled within the stomach. Chest X-Ray 04/11/18 17:58 CONCLUSION: 1. Stable tubes and lines. 2. No significant pneumothorax. 3. Redemonstration of subtle right upper lobe patchy airspace disease and bilateral lower lobe pleural-parenchymal opacities. Chest X-Ray 04/12/18 06:00 CONCLUSION: Support apparatus in good position. Basilar airspace consolidation in the lungs. Abdomen X-Ray 04/12/18 08:00 CONCLUSION: NG coiled in stomach. Persistent gaseous distention of bowel with proximal right colon measuring just over 11 cm in diameter. This is similar to prior exam. Chest X-Ray 04/13/18 06:00 CONCLUSION: Support apparatus unchanged. Stable bilateral mostly basilar airspace disease since April 12. Abdomen X-Ray 04/13/18 08:00 CONCLUSION: 1. Some improvement in the gaseous distention of the bowel. Cecum previously measured 11 cm in diameter and now measures approximately 8 cm. 2. No pneumoperitoneum. Nasogastric tube appears to been advanced into the expected location of the duodenum Objective Remarks: GENERAL: 67-year-old male currently orotracheally intubated in no acute distress SKIN: Warm and dry. HEAD: Atraumatic. Normocephalic. EYES: Pupils equal and round. No scleral icterus. No injection or drainage. ENT: No nasal bleeding or discharge. Mucous membranes pink and moist. NECK: Trachea midline. No JVD. Right IJ CVL is clean dry and intact CARDIOVASCULAR: RRR S1, S2 no S4. RESPIRATORY: Raises shoulders to take spontaneous breaths. Clear to auscultation. Breath sounds equal bilaterally. GASTROINTESTINAL: Abdomen slightly protuberant/non-tender, slightly firm and tympanic. Bowel sounds hypo-active. MUSCULOSKELETAL: Extremities without clubbing, cyanosis, trace to 1+ edema. No obvious deformities. NEUROLOGICAL: Follows commands and moves extremities to command. Assessment and Plan - Assessment and Plan Plan: Neuro/Psych: History of anterior C5/6 microdiscectomy with fusion Currently on fentanyl drip at 200 mcg an hour for vent synchrony Restarted dexmedetomidine drip. Will use midazolam in the interim Goal of RA SS 0 Daily sedation vacation Evaluate by neurosurgery/Dr. Viera. No intervention planned at this time CT brain/MRI C-spine negative EEG revealed no epileptic activity Neurology following. Recommend myasthenia gravis lab. Negative to date. Left diaphragm remains elevated, suspect not functioning well. Requesting second opinion/family for neurological status CV: Systolic heart failure unknown if acute or chronic Essential hypertension Hyperlipidemia Ejection fraction 45% on admission. Appreciate cardiac evaluation by Dr. Escobedo. No plans at this time Holding amlodipine 10 mg daily, and metoprolol tartrate 12.5 mg twice daily for hypertension Holding clonidine 0.1 twice daily and lisinopril 5 mg daily in light of hypotension/lisinopril for acute kidney injury Continue pravastatin 40 mg daily for dyslipidemia. Continue aspirin 81 mg by mouth daily. On low-dose Guillermo-Synephrine drip at 10 mcg/min currently to maintain mean artery pressure greater than equal 65 Resp: Acute hypercapnic respiratory failure Klebsiella oxycodone pneumonia PRVC ventilation Ventilator bundle Head of bed at 30 degrees Albuterol/ipratropium aerosols every 4 hours with albuterol aerosols every 2 hours as needed dyspnea Spontaneous breathing trials once clinically indicated Will need sniff test to assess diaphragmatic function once extubated We will consult ENT to assess vocal cords when appropriate Appreciate pulmonary input. Spontaneous breathing trial daily. May benefit from tracheostomy 02/08 discontinue theophylline 400 mg daily acute delirium. Noted level. 04/09 3.7 Status post bronchoscopy 04/11. Thick white purulent secretions left lower lobe suction to clear. General surgery consult for percutaneous tracheostomy 04/14 GI: Gastroesophageal reflux disease Transaminitis Hypoalbuminemia Ileus Tube feeding/Nepro at 60 cc an hour days. NG tube to low intermittent wall suction At home on pantoprazole 40 mg daily. Currently on lansoprazole 30 mg daily Docusate sodium/senna 1 tablet twice daily for bowel regimen. On lactulose 30 cc twice daily. Add polyethylene glycol 17 g twice daily and methylnaltrexone x1 today. Check KUB revealed distended large and small bowel. Right: 8 cm.. Recheck in a.m. 04/14 GI consultation. : Wood catheter if indicated for accurate I's and O's in a critical patient Converted to condom cath if possible. Endo: Hypothyroidism TSH 1.28. Continue levothyroxine 125 mg by mouth daily Sliding scale insulin if indicated to maintain euglycemia Renal: Kidney injury - acute Avoid all nephrotoxic medications Creatinine currently 1.1 Neurology consultation for evaluation this is contrast-induced nephropathy from scans 03/31. Avoid nephrotoxic medication. Lisinopril discontinued. Accurate I's and O's Monitor urine output Heme: Normocytic anemia Leukocytosis Monitor CBC daily. Follow trends per No indication for transfusion of blood proximal to this time. ID: Klebsiella oxycodone pneumonia sputum 04/01 Currently repleted therapy with ceftriaxone per infectious disease. Lumbar puncture negative. HSV negative No growth to date on other cultures aside from sputum Recheck blood cultures, sputum 04/02 pending Started on piperacillin/tazobactam 04/11 due to aspiration FEN: Hypernatremia Hypopotassemia Free water 200 cc every 6 hours. Replace electrolytes as clinically indicated per ICU electrolyte protocol. Recheck electrolytes in a.m. Start on one half normal saline at 42 cc MSK: PT evaluate and treat Access -Utilize peripheral IV. Central line if indicated Prophylaxis -GI -lansoprazole -DVT -SCD/enoxaparin Overall impression: Remains quite weak and debilitated. We need to continue to work on nutrition and gentle weaning. His cough is so weak he may benefit from a tracheostomy for pulmonary toilet. Daughter and and patient at bedside. Care plan discussed all questions answered. Critical care time 35 minutes.
--- NOTE | 2018-04-13 13:36 | P.PNNP ---
Subjective Interval history: Setting up today, continues to be intubated. Plans for trach placement possibly tomorrow <Eula Tony - Last Filed: 04/13/18 17:23> Physical Exam Vital signs: Vital Signs 04/12/18 13:30 04/12/18 13:45 04/12/18 14:00 Temperature 98.6 F 98.6 F 98.4 F Pulse Rate 62 65 65 Respiratory Rate 15 15 15 Blood Pressure 113/63 154/72 H 140/80 Pulse Oximetry 99 98 99 04/12/18 14:15 04/12/18 14:30 04/12/18 15:00 Temperature 98.4 F 98.4 F 98.4 F Pulse Rate 64 64 64 Respiratory Rate 15 15 15 Blood Pressure 146/83 H 148/83 H 145/70 H Pulse Oximetry 99 99 98 04/12/18 15:15 04/12/18 15:30 04/12/18 15:45 Temperature 98.4 F 98.4 F 98.8 F Pulse Rate 66 70 76 Respiratory Rate 15 15 15 Blood Pressure 139/69 139/77 131/69 Pulse Oximetry 98 95 95 04/12/18 16:00 04/12/18 16:15 04/12/18 16:30 Temperature 98.8 F 99.0 F 99.0 F Pulse Rate 68 65 62 Respiratory Rate 15 15 15 Blood Pressure 116/66 104/63 101/60 Pulse Oximetry 100 96 96 04/12/18 16:45 04/12/18 17:00 04/12/18 17:09 Temperature 99.0 F 99.1 F Pulse Rate 61 64 Respiratory Rate 15 15 15 Blood Pressure 107/64 110/68 Pulse Oximetry 97 98 98 04/12/18 17:11 04/12/18 17:15 04/12/18 17:33 Temperature 99.1 F 99.1 F Pulse Rate 63 64 63 Respiratory Rate 15 15 15 Blood Pressure 109/67 132/75 Pulse Oximetry 98 100 04/12/18 17:45 04/12/18 18:00 04/12/18 18:15 Temperature 99.1 F 99.1 F 99.1 F Pulse Rate 63 83 75 Respiratory Rate 15 32 H 15 Blood Pressure 108/68 169/84 H 142/82 H Pulse Oximetry 97 95 97 04/12/18 18:30 04/12/18 18:45 04/12/18 19:00 Temperature 99.0 F 99.0 F 98.8 F Pulse Rate 73 71 71 Respiratory Rate 15 15 15 Blood Pressure 141/86 H 137/87 143/90 H Pulse Oximetry 98 99 100 04/12/18 19:15 04/12/18 19:30 04/12/18 19:45 Temperature 98.8 F 98.8 F 98.8 F Pulse Rate 72 65 64 Respiratory Rate 15 15 15 Blood Pressure 142/85 H 129/81 127/80 Pulse Oximetry 97 97 98 04/12/18 20:00 04/12/18 20:02 04/12/18 20:15 Temperature 98.8 F 99.0 F Pulse Rate 63 64 67 Respiratory Rate 15 15 15 Blood Pressure 118/74 131/83 Pulse Oximetry 98 100 98 04/12/18 20:30 04/12/18 20:45 04/12/18 21:00 Temperature 99.0 F 99.0 F 99.0 F Pulse Rate 66 67 68 Respiratory Rate 15 15 15 Blood Pressure 132/85 140/82 123/70 Pulse Oximetry 98 99 98 04/12/18 21:15 04/12/18 21:30 04/12/18 21:45 Temperature 99.0 F 99.0 F 99.1 F Pulse Rate 65 61 59 L Respiratory Rate 15 15 15 Blood Pressure 118/73 102/60 97/57 L Pulse Oximetry 100 99 99 04/12/18 22:00 04/12/18 22:15 04/12/18 22:30 Temperature 99.1 F 99.1 F 99.1 F Pulse Rate 59 L 62 65 Respiratory Rate 15 15 15 Blood Pressure 97/63 L 103/65 111/71 Pulse Oximetry 99 98 100 04/12/18 22:45 04/12/18 23:00 04/12/18 23:11 Temperature 99.1 F 99.1 F Pulse Rate 83 76 67 Respiratory Rate 24 15 15 Blood Pressure 140/71 140/83 Pulse Oximetry 97 98 04/12/18 23:15 04/12/18 23:30 04/12/18 23:45 Temperature 99.0 F 99.0 F 99.0 F Pulse Rate 66 62 61 Respiratory Rate 15 15 15 Blood Pressure 115/68 104/61 106/64 Pulse Oximetry 100 99 99 04/13/18 00:00 04/13/18 00:11 04/13/18 00:15 Temperature 98.8 F 98.8 F Pulse Rate 61 60 Respiratory Rate 15 15 15 Blood Pressure 103/66 105/66 Pulse Oximetry 99 100 100 04/13/18 00:30 04/13/18 00:45 04/13/18 01:00 Temperature 98.8 F 98.8 F 98.8 F Pulse Rate 60 59 L 58 L Respiratory Rate 15 15 15 Blood Pressure 107/65 101/65 105/65 Pulse Oximetry 100 100 100 04/13/18 01:14 04/13/18 01:15 04/13/18 01:30 Temperature 98.8 F 98.8 F 98.8 F Pulse Rate 66 65 63 Respiratory Rate 15 15 15 Blood Pressure 111/69 122/74 Pulse Oximetry 100 100 100 04/13/18 01:45 04/13/18 02:00 04/13/18 02:15 Temperature 98.8 F 98.8 F 98.8 F Pulse Rate 63 62 60 Respiratory Rate 15 15 15 Blood Pressure 105/64 111/68 100/62 Pulse Oximetry 100 100 100 04/13/18 02:30 04/13/18 02:45 04/13/18 02:56 Temperature 98.8 F 98.8 F Pulse Rate 59 L 61 62 Respiratory Rate 15 15 15 Blood Pressure 102/65 104/65 Pulse Oximetry 100 100 04/13/18 03:00 04/13/18 03:15 04/13/18 03:30 Temperature 98.6 F 98.6 F 98.6 F Pulse Rate 63 65 65 Respiratory Rate 18 15 15 Blood Pressure 132/69 127/72 124/75 Pulse Oximetry 100 100 100 04/13/18 03:38 04/13/18 03:45 04/13/18 04:00 Temperature 98.6 F 98.6 F Pulse Rate 60 62 Respiratory Rate 15 15 15 Blood Pressure 110/70 133/82 Pulse Oximetry 100 100 100 04/13/18 04:15 04/13/18 04:30 04/13/18 04:45 Temperature 98.6 F 98.6 F 98.6 F Pulse Rate 66 64 68 Respiratory Rate 15 15 15 Blood Pressure 111/69 132/74 110/60 Pulse Oximetry 99 100 99 04/13/18 05:00 04/13/18 05:15 04/13/18 05:30 Temperature 98.6 F 98.6 F 98.6 F Pulse Rate 65 59 L 65 Respiratory Rate 15 15 15 Blood Pressure 102/62 94/58 L 122/71 Pulse Oximetry 99 99 100 04/13/18 05:45 04/13/18 06:00 04/13/18 06:15 Temperature 98.4 F 98.4 F 98.4 F Pulse Rate 69 67 61 Respiratory Rate 15 15 15 Blood Pressure 114/69 113/67 87/53 L Pulse Oximetry 99 99 99 04/13/18 06:30 04/13/18 06:45 04/13/18 07:00 Temperature 98.4 F 98.4 F 98.4 F Pulse Rate 59 L 62 58 L Respiratory Rate 15 15 15 Blood Pressure 93/57 L 91/54 L 79/50 L Pulse Oximetry 99 99 99 04/13/18 07:15 04/13/18 10:09 04/13/18 10:13 Temperature 98.4 F Pulse Rate 55 L 83 Respiratory Rate 15 16 17 Blood Pressure 109/62 Pulse Oximetry 100 100 Intake & Output 04/12/18 04/13/18 04/13/18 18:59 06:59 18:59 Intake Total 1950 / 1950 1150 / 1150 Output Total 825 / 825 600 / 600 Balance 1125 / 1125 550 / 550 Weight 88.5 kg Intake: IV 1550 / 1550 650 / 650 Precedex Inj 1,000 MCG In NS 250 / 250 250 / 250 Inj 240 ML @ 0.2 MCG/KG/HR 4.31 mls/hr IV.CONT TITRATE PRN Rx# :[id number] D5W/1/2 NS Inj 1,000 ML @ 84 1000 / 1000 mls/hr IV.CONT .[id number] GIGI Rx# :[id number] Ofirmev Inj 1,000 mg In 100 ml 100 / 100 200 / 200 @ 400 mls/hr IV.SIG Q6H GIGI Rx# :[id number] Mycamine Inj 150 MG In NS Inj 100 / 100 100 ML @ 100 mls/hr IV.SIG Q24H GIGI Rx#:[id number] Zosyn 2.25 GM Premix 2.25 gm In 100 / 100 100 / 100 50 ml @ 100 mls/hr IV.SIG Q6H GIGI Rx#:[id number] KCl 40 mEq Premix Inj 40 meq In 100 / 100 100 ml @ 25 mls/hr IV.SIG UNSCH PRN Rx#:[id number] Water Bolus Amount 100 / 100 Free Water Amount 400 / 400 400 / 400 Output: Urine Amount (Catheter) 775 / 775 550 / 550 Indwelling Urethral Catheter 775 / 775 550 / 550 Gastric Drainage 50 / 50 50 / 50 Orogastric Tube 50 / 50 50 / 50 Other: Date of Last Bowel Movement 04/12/18 04/12/18 # Bowel Movements 1 # Incontinent Bowel Movements 1 Narrative: GENERAL: Awake and alert. No acute distress. Cooperative. Intubated HEAD: Normocephalic. Atraumatic. EYES: Pupils equal round and reactive to light bilaterally. No scleral icterus. ENT: Moist oral mucosa. ET tube in place. NECK: Trachea midline and easily palpable. No JVD seen. CHEST: Ventilated. No respiratory distress. CARDIOVASCULAR: Regular rate and rhythm. EXTREMITIES: No cyanosis or edema. SKIN: Warm, dry, nonjaundiced. - Urinary Catheter Management Indwelling Urethral Catheter Cath placed during this visit: yes Reason for continuing: Hourly intake/output Insertion date: 04/10/18 Insertion time: 01:45 <Eula Tony - Last Filed: 04/13/18 17:23> Vital signs: Vital Signs 04/13/18 00:30 04/13/18 00:45 04/13/18 01:00 Temperature 98.8 F 98.8 F 98.8 F Pulse Rate 60 59 L 58 L Respiratory Rate 15 15 15 Blood Pressure 107/65 101/65 105/65 Pulse Oximetry 100 100 100 04/13/18 01:14 04/13/18 01:15 04/13/18 01:30 Temperature 98.8 F 98.8 F 98.8 F Pulse Rate 66 65 63 Respiratory Rate 15 15 15 Blood Pressure 111/69 122/74 Pulse Oximetry 100 100 100 04/13/18 01:45 04/13/18 02:00 04/13/18 02:15 Temperature 98.8 F 98.8 F 98.8 F Pulse Rate 63 62 60 Respiratory Rate 15 15 15 Blood Pressure 105/64 111/68 100/62 Pulse Oximetry 100 100 100 04/13/18 02:30 04/13/18 02:45 04/13/18 02:56 Temperature 98.8 F 98.8 F Pulse Rate 59 L 61 62 Respiratory Rate 15 15 15 Blood Pressure 102/65 104/65 Pulse Oximetry 100 100 04/13/18 03:00 04/13/18 03:15 04/13/18 03:30 Temperature 98.6 F 98.6 F 98.6 F Pulse Rate 63 65 65 Respiratory Rate 18 15 15 Blood Pressure 132/69 127/72 124/75 Pulse Oximetry 100 100 100 04/13/18 03:38 04/13/18 03:45 04/13/18 04:00 Temperature 98.6 F 98.6 F Pulse Rate 60 62 Respiratory Rate 15 15 15 Blood Pressure 110/70 133/82 Pulse Oximetry 100 100 100 04/13/18 04:15 04/13/18 04:30 04/13/18 04:45 Temperature 98.6 F 98.6 F 98.6 F Pulse Rate 66 64 68 Respiratory Rate 15 15 15 Blood Pressure 111/69 132/74 110/60 Pulse Oximetry 99 100 99 04/13/18 05:00 04/13/18 05:15 04/13/18 05:30 Temperature 98.6 F 98.6 F 98.6 F Pulse Rate 65 59 L 65 Respiratory Rate 15 15 15 Blood Pressure 102/62 94/58 L 122/71 Pulse Oximetry 99 99 100 04/13/18 05:45 04/13/18 06:00 04/13/18 06:15 Temperature 98.4 F 98.4 F 98.4 F Pulse Rate 69 67 61 Respiratory Rate 15 15 15 Blood Pressure 114/69 113/67 87/53 L Pulse Oximetry 99 99 99 04/13/18 06:30 04/13/18 06:45 04/13/18 07:00 Temperature 98.4 F 98.4 F 98.4 F Pulse Rate 59 L 62 58 L Respiratory Rate 15 15 15 Blood Pressure 93/57 L 91/54 L 79/50 L Pulse Oximetry 99 99 99 04/13/18 07:15 04/13/18 08:00 04/13/18 10:00 Temperature 98.4 F Pulse Rate 55 L 65 66 Respiratory Rate 15 Blood Pressure 109/62 Pulse Oximetry 100 04/13/18 10:09 04/13/18 10:13 04/13/18 11:45 Temperature Pulse Rate 83 85 Respiratory Rate 16 17 17 Blood Pressure 154/79 H Pulse Oximetry 100 99 04/13/18 12:00 04/13/18 12:15 04/13/18 12:30 Temperature 98.5 F Pulse Rate 84 83 84 Respiratory Rate 14 15 16 Blood Pressure 154/88 H 155/93 H 153/94 H Pulse Oximetry 100 100 100 04/13/18 12:45 04/13/18 13:00 04/13/18 13:15 Temperature Pulse Rate 79 82 77 Respiratory Rate 14 15 14 Blood Pressure 154/97 H 142/92 H 141/83 H Pulse Oximetry 100 100 100 04/13/18 13:30 04/13/18 13:45 04/13/18 14:00 Temperature Pulse Rate 82 78 78 Respiratory Rate 14 14 14 Blood Pressure 156/90 H 154/94 H 150/96 H Pulse Oximetry 100 100 100 04/13/18 14:15 04/13/18 14:30 04/13/18 14:49 Temperature Pulse Rate 76 72 63 Respiratory Rate 14 15 15 Blood Pressure 154/95 H 134/85 105/66 Pulse Oximetry 100 100 100 04/13/18 15:00 04/13/18 15:15 04/13/18 15:30 Temperature Pulse Rate 63 67 76 Respiratory Rate 15 15 16 Blood Pressure 106/68 102/68 135/63 Pulse Oximetry 100 100 85 L 04/13/18 15:45 04/13/18 16:00 04/13/18 16:15 Temperature 98.2 F Pulse Rate 69 71 58 L Respiratory Rate 15 15 15 Blood Pressure 134/72 127/73 85/57 L Pulse Oximetry 99 96 100 04/13/18 16:30 04/13/18 16:45 04/13/18 17:00 Temperature Pulse Rate 57 L 70 67 Respiratory Rate 15 15 15 Blood Pressure 83/56 L 135/72 128/75 Pulse Oximetry 100 99 100 04/13/18 17:28 04/13/18 17:30 04/13/18 17:33 Temperature Pulse Rate 71 69 69 Respiratory Rate 15 15 15 Blood Pressure 130/78 119/74 Pulse Oximetry 100 100 100 04/13/18 17:45 04/13/18 18:00 04/13/18 18:15 Temperature Pulse Rate 67 72 72 Respiratory Rate 16 17 16 Blood Pressure 127/80 143/85 H 138/84 Pulse Oximetry 100 100 100 04/13/18 18:30 04/13/18 18:45 04/13/18 19:00 Temperature Pulse Rate 72 72 74 Respiratory Rate 16 16 15 Blood Pressure 126/79 135/82 144/85 H Pulse Oximetry 100 100 100 04/13/18 19:15 04/13/18 19:30 04/13/18 19:33 Temperature Pulse Rate 75 70 71 Respiratory Rate 15 15 15 Blood Pressure 144/83 H 121/71 Pulse Oximetry 100 100 04/13/18 19:45 04/13/18 20:00 04/13/18 20:15 Temperature Pulse Rate 70 78 74 Respiratory Rate 16 15 15 Blood Pressure 124/77 153/78 H 133/75 Pulse Oximetry 100 100 100 04/13/18 20:30 04/13/18 20:45 04/13/18 21:00 Temperature 98.1 F Pulse Rate 78 73 74 Respiratory Rate 15 15 15 Blood Pressure 142/81 H 121/75 124/77 Pulse Oximetry 100 99 100 04/13/18 21:15 04/13/18 21:30 04/13/18 21:45 Temperature Pulse Rate 72 69 75 Respiratory Rate 15 15 15 Blood Pressure 123/76 115/72 145/84 H Pulse Oximetry 100 100 100 04/13/18 22:00 04/13/18 22:15 04/13/18 22:30 Temperature Pulse Rate 67 72 75 Respiratory Rate 15 15 16 Blood Pressure 131/82 114/92 H 145/77 H Pulse Oximetry 100 100 100 04/13/18 23:41 Temperature Pulse Rate 63 Respiratory Rate 15 Blood Pressure Pulse Oximetry Intake & Output 04/13/18 04/13/18 04/14/18 06:59 18:59 06:59 Intake Total 1150 / 1150 1750 / 1750 100 / 100 Output Total 600 / 600 700 / 700 Balance 550 / 550 1050 / 1050 100 / 100 Weight 88.5 kg Intake: IV 650 / 650 1350 / 1350 100 / 100 Precedex Inj 1,000 MCG In NS 250 / 250 250 / 250 Inj 240 ML @ 0.2 MCG/KG/HR 4.31 mls/hr IV.CONT TITRATE PRN Rx# :[id number] 1/2 Normal Saline Inj 1,000 ML 1000 / 1000 @ 42 mls/hr IV.CONT .[id number] GIGI Rx#:[id number] Ofirmev Inj 1,000 mg In 100 ml 200 / 200 @ 400 mls/hr IV.SIG Q6H GIGI Rx# :[id number] Mycamine Inj 150 MG In NS Inj 100 / 100 100 ML @ 100 mls/hr IV.SIG Q24H GIGI Rx#:[id number] Zosyn 2.25 GM Premix 2.25 gm In 100 / 100 50 ml @ 100 mls/hr IV.SIG Q6H GIGI Rx#:[id number] Zosyn 4.5 GM Premix 4.5 gm In 100 / 100 100 / 100 100 ml @ 200 mls/hr IV.SIG Q6H GIGI Rx#:[id number] Water Bolus Amount 100 / 100 Free Water Amount 400 / 400 400 / 400 Output: Urine Amount (Catheter) 550 / 550 650 / 650 Indwelling Urethral Catheter 550 / 550 650 / 650 Gastric Drainage 50 / 50 50 / 50 Orogastric Tube 50 / 50 50 / 50 Other: Date of Last Bowel Movement 04/12/18 04/13/18 04/13/18 # Incontinent Bowel Movements 2 - Urinary Catheter Management Indwelling Urethral Catheter Cath placed during this visit: no <Matilde Campbell - Last Filed: 04/14/18 00:16> Assessment and Plan - Assessment (1) BUDDY (acute kidney injury) Code(s): N17.9 - Acute kidney failure, unspecified Status: Acute Plan: The states there is some blood in his Wood bag, light pink likely secondary to previous trauma from pulling out his Wood bag. Kidney insult began on the . Current creatinine is 1.08 from 1.25 nonoliguric. Good urine output. Continues to improve Hypokalemic at 3.3 Lisinopril was started on the was stopped on the in light of acute kidney injury CTA of the chest was done the , which could have also been an insult to the kidneys. Echocardiogram revealed EF of 45% unknown etiology. Renal ultrasound negative for any obstructive etiology. Small cyst on right kidney which is stable. Fractional excretion of urine, 0.47%, prerenal. Likely contrast induced secondary to CTA. -Fluids have been decreased to KVO -Potassium has been replaced with 40 mEq -Discussed plan with Dr. Campbell, if okay will sign off (2) Hypernatremia Code(s): E87.0 - Hyperosmolality and hypernatremia Status: Acute Plan: Sodium at 150 -Continue to monitor -IV fluids have been decreased to KVO -Monitor BMP daily (3) Respiratory failure Code(s): J96.90 - Respiratory failure, unspecified, unspecified whether with hypoxia or hypercapnia Status: Acute Plan: With respiratory acidosis, Continues to be intubated, failed extubation on the , became somnolent, obtunded. Cuff leak yesterday, reintubated. -Management per critical care team (4) Leukocytosis Code(s): D72.829 - Elevated white blood cell count, unspecified Status: Acute Plan: Management per critical care - Plan WBCs slightly trended down to 15 Urine culture, blood cultures, sputum cultures no growth thus far. Bronchial wash done on the , cultures pending Not tolerating tube feedings, which have been discontinued. Per critical care note likely aspiration. GI on the case to manage ileus, n.p.o. -Management per critical care team <Eula Tony - Last Filed: 04/13/18 17:23> - Assessment (1) BUDDY (acute kidney injury) Code(s): N17.9 - Acute kidney failure, unspecified Status: Acute (2) Hypernatremia Code(s): E87.0 - Hyperosmolality and hypernatremia Status: Acute (3) Respiratory failure Code(s): J96.90 - Respiratory failure, unspecified, unspecified whether with hypoxia or hypercapnia Status: Acute (4) Leukocytosis Code(s): D72.829 - Elevated white blood cell count, unspecified Status: Acute - Attending Attestation Patient is seen clear discussed with family and MARY Forde Creatinine normal, nephrology to sign off <Matilde Campbell - Last Filed: 04/14/18 00:16>
[2018-04-13] MEDS: Piperacil/Tazo 4.5 GM Premix 4.5 GM/100 ML BAG IV.SIG SCH ×2 (14:53→20:44)
[2018-04-13] MEDS: Sodium Chloride 0.45 % Inj 1,000 ML IV.CONT SCH (14:54)
--- NOTE | 2018-04-13 16:55 | P.CONGS ---
[facility] Gen Surgery Consult Note Consult date: 04/13/18 Narrative: 67-year-old male anterior cervical microdiscectomy on 02/13/2018 now with prolonged respiratory failure and ventilation requirement. He underwent attempted extubation on 04/04 which failed. I have been consulted to perform tracheostomy. Review of Systems All other systems reviewed negative except as stated in [facility] - History History Provided By: Family Member, Significant Other (), Medical Record - Medical History Medical History: Medical History (Last Reviewed 04/13/18 @ 07:42 by Juliana Sandoval) GERD (gastroesophageal reflux disease) High cholesterol Raspy voice Thyroid disease - Surgical History Surgical History: Surgical History (Last Reviewed 04/13/18 @ 07:42 by Juliana Sandoval) H/O microdiscectomy H/O inguinal hernia repair Status post bilateral LASIK surgery - Family History Family History: Family History (Last Reviewed 04/10/18 @ 17:42 by Eula Tony APRN) Other Family history non-contributory - Tobacco History Second Hand Smoke Exposure: No Tobacco Use In Past 30 Days: No Smoking Status: Never smoker Tobacco Type: Cigarettes - Alcohol History How Often Do You Have a Drink Containing Alcohol: Monthly or less - Substance Use History Substance History: No History of Abuse - Travel History Recent Travel in the [place] Within the Last 8 Weeks: No Recent Travel Out of the Country Within the Last 8 Weeks: No - Immunization History Tetanus Immunization: <5 Years Hx Influenza Vaccine This Season: Yes Medications and Allergies Active Medications: Active Medications Acetaminophen (Tylenol) 650 mg PO Q6H PRN PRN Reason: Temp > 100.4 Last Admin: 04/12/18 05:21 Dose: 650 mg Albuterol (Duoneb Neb ([facility])) 1 ampul NEB Q4HR NEB [facility] Last Admin: 04/13/18 10:09 Dose: 1 ampul Albuterol (Albuterol Neb (Prn)) 2.5 mg NEB Q2HR NEB PRN PRN Reason: DYSPNEA Artificial Tears (Tears Naturale Opth Drops) 1 drop EACH EYE Q8H [facility] Last Admin: 04/13/18 09:27 Dose: 1 drop Aspirin (Aspirin Chew) 81 mg PO DAILY [facility] Last Admin: 04/13/18 09:26 Dose: 81 mg Chlorhexidine Gluconate (Peridex 0.12% Oral Kit) 15 ml OROPHARYNG BID@0800, 2000 [facility] Last Admin: 04/13/18 09:25 Dose: 15 ml Enoxaparin Sodium (Lovenox Inj) 40 mg SQ DAILY [facility] Last Admin: 04/13/18 09:27 Dose: 40 mg Midazolam HCl (Versed Inj) 100 mg in 100 mls @ 2 mls/hr IV.CONT TITRATE PRN; Protocol PRN Reason: See protocol Last Titration: 04/11/18 15:30 Dose: 0 mg/hr, 0 mls/hr Dexmedetomidine HCl 1,000 mcg/ (Sodium Chloride) 250 mls @ 4.31 mls/hr IV.CONT TITRATE PRN; Protocol PRN Reason: Per Protocol Last Admin: 04/13/18 06:16 Dose: 1 mcg/kg/hr, 21.57 mls/hr Phenylephrine HCl 160 mg/ (Sodium Chloride) 500 mls @ 7.5 mls/hr IV.CONT TITRATE PRN; Protocol PRN Reason: Per Protocol Last Titration: 04/13/18 04:45 Dose: 0 mcg/min, 0 mls/hr Dextrose/Sodium Chloride (D5w/1/2 Ns Inj) 1,000 mls @ 84 mls/hr IV.CONT .[id number] [facility] Last Admin: 04/12/18 20:29 Dose: Not Given Micafungin Sodium 150 mg/ (Sodium Chloride) 100 mls @ 100 mls/hr IV.SIG Q24H [facility] Last Infusion: 04/12/18 20:00 Dose: Infused Magnesium Sulfate 4 gm/ Sodium (Chloride) 100 mls @ 50 mls/hr IV.SIG UNSCH PRN PRN Reason: For Magnesium 0.9 - 1.1 mg/dL Potassium Chloride (Kcl 40 Meq Premix Inj) 40 meq in 100 mls @ 25 mls/hr IV.SIG Q2H PRN PRN Reason: For Potassium 2.8 - 3.2 mEq/L Potassium Chloride (Kcl 20 Meq Premix Inj) 20 meq in 100 mls @ 50 mls/hr IV.SIG Q2H PRN PRN Reason: For Potassium 3.3 - 3.5 mEq/L Potassium Chloride (Kcl 40 Meq Premix Inj) 40 meq in 100 mls @ 25 mls/hr IV.SIG UNSCH PRN PRN Reason: For Potassium 3.3 - 3.5 mEq/L Last Infusion: 04/12/18 10:35 Dose: Infused Potassium Chloride (Kcl 20 Meq Premix Inj) 20 meq in 100 mls @ 50 mls/hr IV.SIG Q2H PRN PRN Reason: For Potassium 2.8 - 3.2 mEq/L Potassium Phosphate 30 mmol/ (Sodium Chloride) 260 mls @ 42 mls/hr IV.SIG UNSCH PRN PRN Reason: SEE LABEL COMMENTS Magnesium Sulfate 2 gm/ Sodium (Chloride) 100 mls @ 50 mls/hr IV.SIG UNSCH PRN PRN Reason: For Magnesium 1.2 - 1.6 mg/dL Sodium Phosphate 30 mmol/ (Sodium Chloride) 260 mls @ 42 mls/hr IV.SIG UNSCH PRN PRN Reason: For Phosphorus < 2.5 mg/dL Sodium Chloride (1/2 Normal Saline Inj) 1,000 mls @ 42 mls/hr IV.CONT .[id number] [facility] Last Admin: 04/13/18 14:54 Dose: 42 mls/hr Piperacillin/Tazobactam/Dextrose (Zosyn 4.5 Gm Premix) 4.5 gm in 100 mls @ 200 mls/hr IV.SIG Q6H [facility] Last Admin: 04/13/18 14:53 Dose: 200 mls/hr Labetalol HCl (Trandate Inj) 20 mg IV.PUSH Q1H PRN PRN Reason: SBP > 160 Lactulose (Lactulose Liq) 30 ml PO TID [facility] Last Admin: 04/13/18 14:53 Dose: 30 ml Lansoprazole (Prevacid Solutab) 30 mg NG/OG DAILY [facility] Last Admin: 04/13/18 09:26 Dose: 30 mg Levothyroxine Sodium (Synthroid) 125 mcg PO DAILY@0600 [facility] Last Admin: 04/13/18 05:16 Dose: 125 mcg Magnesium Oxide (Mag-Ox) 800 mg PO UNSCH PRN PRN Reason: For Magnesium 1.2 - 1.6 mg/dL Metoclopramide HCl (Reglan Inj) 5 mg IV.PUSH Q8HR [facility]; Protocol Last Admin: 04/13/18 14:53 Dose: 5 mg Miscellaneous Medication () 1 each OROPHARYNG 0000,0400,1200,1600 [facility] Last Admin: 04/13/18 04:34 Dose: 1 each Ondansetron HCl (Zofran Inj) 4 mg IV.PUSH Q4H PRN PRN Reason: NAUSEA OR VOMITING Polyethylene Glycol (Miralax) 17 gm PO BID [facility] Last Admin: 04/13/18 09:27 Dose: 17 gm Potassium Chloride (Kcl Liq) 40 meq PO UNSCH PRN PRN Reason: Potassium level 3.3-3.5 mEq/L Last Admin: 04/13/18 06:12 Dose: 40 meq Potassium Chloride (Kcl Liq) 40 meq PO UNSCH PRN PRN Reason: Potassium level 3.3-3.5 mEq/L Potassium Phosphate (K-Phos Original) 2,000 mg PO Q4H PRN PRN Reason: Phosphorus Less Than 2.5 mg/dL Potassium Phosphate (K-Phos Original) 2,000 mg PO UNSCH PRN PRN Reason: SEE LABEL COMMENTS Pravastatin Sodium (Pravachol) 40 mg PO [facility] Last Admin: 04/12/18 20:30 Dose: 40 mg Senna/Docusate Sodium (Celine-Colace) 1 tab PO BID [facility] Last Admin: 04/13/18 09:26 Dose: 1 tab Sodium Chloride (Ns Flush) 2 ml IV.FLUSH BID [facility] Last Admin: 04/13/18 09:27 Dose: 2 ml Sodium Chloride (Ns Flush) 2 ml IV.FLUSH PRN PRN PRN Reason: FLUSH AFTER USING IV ACCESS Sodium Chloride (Ns Flush) 0 ml IV.FLUSH DAILY [facility] Last Admin: 04/13/18 09:27 Dose: 6 ml Sterile Water (Free Water) 200 ml NG/OG Q6HR [facility] Last Admin: 04/13/18 14:54 Dose: 200 ml Terbutaline Sulfate (Brethine Inj) 1 mg SQ UNSCH PRN PRN Reason: For Extravasation Allergies Allergy/AdvReac Type Severity Reaction Status Date / Time Sulfa (Sulfonamide Allergy Severe Nausea Verified 02/15/18 05:02 Antibiotics) Home Medications Medication Instructions Recorded Confirmed Type aspirin 81 mg PO DAILY 02/08/18 03/31/18 History levothyroxine 125 mcg PO DAILY 02/08/18 03/31/18 History pantoprazole [Protonix] 40 mg PO DAILY 02/08/18 03/31/18 History pravastatin 40 mg PO HS 02/08/18 03/31/18 History amlodipine [Norvasc] 10 mg PO DAILY 03/31/18 03/31/18 History ranitidine HCl [Zantac] 150 mg PO DAILY 03/31/18 03/31/18 History Exam Vital signs: Vital Signs 04/12/18 17:00 04/12/18 17:09 04/12/18 17:11 Temperature 99.1 F Pulse Rate 64 63 Respiratory Rate 15 15 15 Blood Pressure 110/68 Pulse Oximetry 98 98 04/12/18 17:15 04/12/18 17:33 04/12/18 17:45 Temperature 99.1 F 99.1 F 99.1 F Pulse Rate 64 63 63 Respiratory Rate 15 15 15 Blood Pressure 109/67 132/75 108/68 Pulse Oximetry 98 100 97 04/12/18 18:00 04/12/18 18:15 04/12/18 18:30 Temperature 99.1 F 99.1 F 99.0 F Pulse Rate 83 75 73 Respiratory Rate 32 H 15 15 Blood Pressure 169/84 H 142/82 H 141/86 H Pulse Oximetry 95 97 98 04/12/18 18:45 04/12/18 19:00 04/12/18 19:15 Temperature 99.0 F 98.8 F 98.8 F Pulse Rate 71 71 72 Respiratory Rate 15 15 15 Blood Pressure 137/87 143/90 H 142/85 H Pulse Oximetry 99 100 97 04/12/18 19:30 04/12/18 19:45 04/12/18 20:00 Temperature 98.8 F 98.8 F 98.8 F Pulse Rate 65 64 63 Respiratory Rate 15 15 15 Blood Pressure 129/81 127/80 118/74 Pulse Oximetry 97 98 98 04/12/18 20:02 04/12/18 20:15 04/12/18 20:30 Temperature 99.0 F 99.0 F Pulse Rate 64 67 66 Respiratory Rate 15 15 15 Blood Pressure 131/83 132/85 Pulse Oximetry 100 98 98 04/12/18 20:45 04/12/18 21:00 04/12/18 21:15 Temperature 99.0 F 99.0 F 99.0 F Pulse Rate 67 68 65 Respiratory Rate 15 15 15 Blood Pressure 140/82 123/70 118/73 Pulse Oximetry 99 98 100 04/12/18 21:30 04/12/18 21:45 04/12/18 22:00 Temperature 99.0 F 99.1 F 99.1 F Pulse Rate 61 59 L 59 L Respiratory Rate 15 15 15 Blood Pressure 102/60 97/57 L 97/63 L Pulse Oximetry 99 99 99 04/12/18 22:15 04/12/18 22:30 04/12/18 22:45 Temperature 99.1 F 99.1 F 99.1 F Pulse Rate 62 65 83 Respiratory Rate 15 15 24 Blood Pressure 103/65 111/71 140/71 Pulse Oximetry 98 100 97 04/12/18 23:00 04/12/18 23:11 04/12/18 23:15 Temperature 99.1 F 99.0 F Pulse Rate 76 67 66 Respiratory Rate 15 15 15 Blood Pressure 140/83 115/68 Pulse Oximetry 98 100 04/12/18 23:30 04/12/18 23:45 04/13/18 00:00 Temperature 99.0 F 99.0 F 98.8 F Pulse Rate 62 61 61 Respiratory Rate 15 15 15 Blood Pressure 104/61 106/64 103/66 Pulse Oximetry 99 99 99 04/13/18 00:11 04/13/18 00:15 04/13/18 00:30 Temperature 98.8 F 98.8 F Pulse Rate 60 60 Respiratory Rate 15 15 15 Blood Pressure 105/66 107/65 Pulse Oximetry 100 100 100 04/13/18 00:45 04/13/18 01:00 04/13/18 01:14 Temperature 98.8 F 98.8 F 98.8 F Pulse Rate 59 L 58 L 66 Respiratory Rate 15 15 15 Blood Pressure 101/65 105/65 Pulse Oximetry 100 100 100 04/13/18 01:15 04/13/18 01:30 04/13/18 01:45 Temperature 98.8 F 98.8 F 98.8 F Pulse Rate 65 63 63 Respiratory Rate 15 15 15 Blood Pressure 111/69 122/74 105/64 Pulse Oximetry 100 100 100 04/13/18 02:00 04/13/18 02:15 04/13/18 02:30 Temperature 98.8 F 98.8 F 98.8 F Pulse Rate 62 60 59 L Respiratory Rate 15 15 15 Blood Pressure 111/68 100/62 102/65 Pulse Oximetry 100 100 100 04/13/18 02:45 04/13/18 02:56 04/13/18 03:00 Temperature 98.8 F 98.6 F Pulse Rate 61 62 63 Respiratory Rate 15 15 18 Blood Pressure 104/65 132/69 Pulse Oximetry 100 100 04/13/18 03:15 04/13/18 03:30 04/13/18 03:38 Temperature 98.6 F 98.6 F Pulse Rate 65 65 Respiratory Rate 15 15 15 Blood Pressure 127/72 124/75 Pulse Oximetry 100 100 100 04/13/18 03:45 04/13/18 04:00 04/13/18 04:15 Temperature 98.6 F 98.6 F 98.6 F Pulse Rate 60 62 66 Respiratory Rate 15 15 15 Blood Pressure 110/70 133/82 111/69 Pulse Oximetry 100 100 99 04/13/18 04:30 04/13/18 04:45 04/13/18 05:00 Temperature 98.6 F 98.6 F 98.6 F Pulse Rate 64 68 65 Respiratory Rate 15 15 15 Blood Pressure 132/74 110/60 102/62 Pulse Oximetry 100 99 99 04/13/18 05:15 04/13/18 05:30 04/13/18 05:45 Temperature 98.6 F 98.6 F 98.4 F Pulse Rate 59 L 65 69 Respiratory Rate 15 15 15 Blood Pressure 94/58 L 122/71 114/69 Pulse Oximetry 99 100 99 04/13/18 06:00 04/13/18 06:15 04/13/18 06:30 Temperature 98.4 F 98.4 F 98.4 F Pulse Rate 67 61 59 L Respiratory Rate 15 15 15 Blood Pressure 113/67 87/53 L 93/57 L Pulse Oximetry 99 99 99 04/13/18 06:45 04/13/18 07:00 04/13/18 07:15 Temperature 98.4 F 98.4 F 98.4 F Pulse Rate 62 58 L 55 L Respiratory Rate 15 15 15 Blood Pressure 91/54 L 79/50 L 109/62 Pulse Oximetry 99 99 100 04/13/18 10:09 04/13/18 10:13 Temperature Pulse Rate 83 Respiratory Rate 16 17 Blood Pressure Pulse Oximetry 100 Intake & Output 04/12/18 04/13/18 04/13/18 18:59 06:59 18:59 Intake Total 1950 / 1950 1150 / 1150 1200 / 1200 Output Total 825 / 825 600 / 600 Balance 1125 / 1125 550 / 550 1200 / 1200 Weight 88.5 kg Intake: IV 1550 / 1550 650 / 650 1000 / 1000 Precedex Inj 1,000 MCG In NS 250 / 250 250 / 250 Inj 240 ML @ 0.2 MCG/KG/HR 4.31 mls/hr IV.CONT TITRATE PRN Rx# :[id number] D5W/1/2 NS Inj 1,000 ML @ 84 1000 / 1000 mls/hr IV.CONT .[id number] [facility] Rx# :[id number] 1/2 Normal Saline Inj 1,000 ML 1000 / 1000 @ 42 mls/hr IV.CONT .[id number] [facility] Rx#:[id number] Ofirmev Inj 1,000 mg In 100 ml 100 / 100 200 / 200 @ 400 mls/hr IV.SIG Q6H [facility] Rx# :[id number] Mycamine Inj 150 MG In NS Inj 100 / 100 100 ML @ 100 mls/hr IV.SIG Q24H [facility] Rx#:[id number] Zosyn 2.25 GM Premix 2.25 gm In 100 / 100 100 / 100 50 ml @ 100 mls/hr IV.SIG Q6H [facility] Rx#:[id number] KCl 40 mEq Premix Inj 40 meq In 100 / 100 100 ml @ 25 mls/hr IV.SIG UNSCH PRN Rx#:[id number] Water Bolus Amount 100 / 100 Free Water Amount 400 / 400 400 / 400 200 / 200 Output: Urine Amount (Catheter) 775 / 775 550 / 550 Indwelling Urethral Catheter 775 / 775 550 / 550 Gastric Drainage 50 / 50 50 / 50 Orogastric Tube 50 / 50 50 / 50 Other: Date of Last Bowel Movement 04/12/18 04/12/18 # Bowel Movements 1 # Incontinent Bowel Movements 1 Narrative: GENERAL: Awake and alert. No acute distress. Cooperative. HEAD: Normocephalic. Atraumatic. EYES: Pupils equal round and reactive to light bilaterally. No scleral icterus. ENT: Moist oral mucosa. ET tube in place. NECK: Trachea midline and easily palpable. Left transverse anterior neck incision well-healed. CHEST: Ventilated. No respiratory distress. CARDIOVASCULAR: Regular rate and rhythm. EXTREMITIES: No cyanosis or edema. SKIN: Warm, dry, nonjaundiced. Results - Labs 04/13/18 03:58 04/13/18 03:58 Laboratory Results - last 24 hr 04/13/18 04/13/18 03:58 03:58 WBC 15.1 H RBC 3.24 L Hgb 10.0 L Hct 30.8 L MCV 95.2 MCH 30.9 MCHC 32.5 RDW 14.6 Plt Count 268 MPV 9.2 Neut % (Auto) 89.7 H Lymph % (Auto) 3.6 L Randolph % (Auto) 5.0 Eos % (Auto) 1.4 Baso % (Auto) 0.3 Neut # (Auto) 13.6 H Lymph # (Auto) 0.5 L Randolph # (Auto) 0.8 Eos # (Auto) 0.2 Baso # (Auto) 0.0 WBC Differential . Differential Comment Auto diff final Sodium 150 H Potassium 3.3 L Chloride 117 H Carbon Dioxide 26.8 Anion Gap 6 BUN 37 H Creatinine 1.08 Estimated GFR 68 L Random Glucose 104 Calcium 8.8 Phosphorus 2.9 Magnesium 2.5 Total Bilirubin 0.6 AST 34 ALT 99 H Alkaline Phosphatase 65 Total Protein 5.9 L Albumin 2.5 L - Imaging Imaging: ITS Impressions Head MRI 03/31/18 00:00 CONCLUSION: Negative exam Head CT 03/31/18 12:16 CONCLUSION: 1. Negative CT Head non contrast. . Chest CTA 03/31/18 14:39 CONCLUSION: 1. Bibasilar atelectatic changes, left greater than right. No confluent infiltrate. 2. No pulmonary embolus. 3. Atherosclerotic calcification of the coronary arteries. Cervical Spine MRI 03/31/18 16:17 CONCLUSION: 1. Status post fusion at the C5-C6 level. There is susceptibility artifact from the hardware. 2. A significant area of stenosis in the thecal sac is not seen. 3. Facet hypertrophy seen throughout with scattered areas of neural foraminal narrowing as described above. 4. The patient is intubated with fluid in the hypopharynx, laryngeal pharynx, and upper trachea around the ET tube and above the tracheal ET tube cuff. 5. The does appear to be some mild soft tissue swelling in the prevertebral region best seen on the sagittal images. Abdomen/Bladder Ultrasound 04/10/18 08:05 CONCLUSION: 1. Probable complex cyst coming off the right lower pole kidney appears smaller since 2017 CT examination of the abdomen. Chest CT 04/11/18 00:00 CONCLUSION: 1. Patchy nodular opacities in the right lower lobe coalescing posteriorly most consistent with an infectious etiology such as bronchopneumonia. 2. Near complete left lower lobe collapse and dense airspace consolidation in the posterior right lower lobe. Differential considerations include aspiration. 3. Coronary artery cavitations. Abdomen/Pelvis CT 04/11/18 13:06 CONCLUSION: 1. Bilateral lower lobe consolidations left greater than right. Distended small and large bowel without evidence of wall thickening or obstruction. NG tube coiled within the stomach. Chest X-Ray 04/13/18 06:00 CONCLUSION: Support apparatus unchanged. Stable bilateral mostly basilar airspace disease since April 12. Abdomen X-Ray 04/13/18 08:00 CONCLUSION: 1. Some improvement in the gaseous distention of the bowel. Cecum previously measured 11 cm in diameter and now measures approximately 8 cm. 2. No pneumoperitoneum. Nasogastric tube appears to been advanced into the expected location of the duodenum Assessment and Plan - Assessment (1) Ventilator dependent Code(s): Z99.11 - Dependence on respirator [ventilator] status Status: Acute - Plan 67-year-old male requiring prolonged ventilation. Recent history of anterior cervical microdiscectomy on 02/13/2018. We will plan to proceed with bedside percutaneous tracheostomy tomorrow. Discussed with Dr. Bell. Case discussed in detail with the patient who is quite alert on the ventilator as well as his .
[2018-04-13] MEDS: Micafungin Inj 150 MG in Sodium Chlor 0.9% Inj 100 ML IV.SIG SCH (17:14)
[2018-04-13] MEDS: Dextrose 5%/NaCl 0.45% Inj 1,000 ML IV.CONT SCH (17:18)
--- NOTE | 2018-04-13 20:01 | P.PNID ---
Subjective Remarks: seen earlier today doing much better No growth in cultures colonic distention down to 8 cm plans for PEG and trach renal fnx recovered Antibiotics: zosyn started 04/11 vanco micafungin Allergies/Adverse Reactions: Allergies Sulfa (Sulfonamide Antibiotics) Allergy (Severe, Verified 02/15/18 05:02) Nausea also flu like symptoms Objective Vital Signs 04/12/18 20:00 04/12/18 20:02 04/12/18 20:15 Temperature 98.8 F 99.0 F Pulse Rate 63 64 67 Respiratory Rate 15 15 15 Blood Pressure 118/74 131/83 Pulse Oximetry 98 100 98 04/12/18 20:30 04/12/18 20:45 04/12/18 21:00 Temperature 99.0 F 99.0 F 99.0 F Pulse Rate 66 67 68 Respiratory Rate 15 15 15 Blood Pressure 132/85 140/82 123/70 Pulse Oximetry 98 99 98 04/12/18 21:15 04/12/18 21:30 04/12/18 21:45 Temperature 99.0 F 99.0 F 99.1 F Pulse Rate 65 61 59 L Respiratory Rate 15 15 15 Blood Pressure 118/73 102/60 97/57 L Pulse Oximetry 100 99 99 04/12/18 22:00 04/12/18 22:15 04/12/18 22:30 Temperature 99.1 F 99.1 F 99.1 F Pulse Rate 59 L 62 65 Respiratory Rate 15 15 15 Blood Pressure 97/63 L 103/65 111/71 Pulse Oximetry 99 98 100 04/12/18 22:45 04/12/18 23:00 04/12/18 23:11 Temperature 99.1 F 99.1 F Pulse Rate 83 76 67 Respiratory Rate 24 15 15 Blood Pressure 140/71 140/83 Pulse Oximetry 97 98 04/12/18 23:15 04/12/18 23:30 04/12/18 23:45 Temperature 99.0 F 99.0 F 99.0 F Pulse Rate 66 62 61 Respiratory Rate 15 15 15 Blood Pressure 115/68 104/61 106/64 Pulse Oximetry 100 99 99 04/13/18 00:00 04/13/18 00:11 04/13/18 00:15 Temperature 98.8 F 98.8 F Pulse Rate 61 60 Respiratory Rate 15 15 15 Blood Pressure 103/66 105/66 Pulse Oximetry 99 100 100 01/31/19 00:30 04/13/18 00:45 04/13/18 01:00 Temperature 98.8 F 98.8 F 98.8 F Pulse Rate 60 59 L 58 L Respiratory Rate 15 15 15 Blood Pressure 107/65 101/65 105/65 Pulse Oximetry 100 100 100 04/13/18 01:14 04/13/18 01:15 04/13/18 01:30 Temperature 98.8 F 98.8 F 98.8 F Pulse Rate 66 65 63 Respiratory Rate 15 15 15 Blood Pressure 111/69 122/74 Pulse Oximetry 100 100 100 04/13/18 01:45 04/13/18 02:00 04/13/18 02:15 Temperature 98.8 F 98.8 F 98.8 F Pulse Rate 63 62 60 Respiratory Rate 15 15 15 Blood Pressure 105/64 111/68 100/62 Pulse Oximetry 100 100 100 04/13/18 02:30 04/13/18 02:45 04/13/18 02:56 Temperature 98.8 F 98.8 F Pulse Rate 59 L 61 62 Respiratory Rate 15 15 15 Blood Pressure 102/65 104/65 Pulse Oximetry 100 100 04/13/18 03:00 04/13/18 03:15 04/13/18 03:30 Temperature 98.6 F 98.6 F 98.6 F Pulse Rate 63 65 65 Respiratory Rate 18 15 15 Blood Pressure 132/69 127/72 124/75 Pulse Oximetry 100 100 100 04/13/18 03:38 04/13/18 03:45 04/13/18 04:00 Temperature 98.6 F 98.6 F Pulse Rate 60 62 Respiratory Rate 15 15 15 Blood Pressure 110/70 133/82 Pulse Oximetry 100 100 100 04/13/18 04:15 04/13/18 04:30 04/13/18 04:45 Temperature 98.6 F 98.6 F 98.6 F Pulse Rate 66 64 68 Respiratory Rate 15 15 15 Blood Pressure 111/69 132/74 110/60 Pulse Oximetry 99 100 99 04/13/18 05:00 04/13/18 05:15 04/13/18 05:30 Temperature 98.6 F 98.6 F 98.6 F Pulse Rate 65 59 L 65 Respiratory Rate 15 15 15 Blood Pressure 102/62 94/58 L 122/71 Pulse Oximetry 99 99 100 04/13/18 05:45 04/13/18 06:00 04/13/18 06:15 Temperature 98.4 F 98.4 F 98.4 F Pulse Rate 69 67 61 Respiratory Rate 15 15 15 Blood Pressure 114/69 113/67 87/53 L Pulse Oximetry 99 99 99 04/13/18 06:30 04/13/18 06:45 04/13/18 07:00 Temperature 98.4 F 98.4 F 98.4 F Pulse Rate 59 L 62 58 L Respiratory Rate 15 15 15 Blood Pressure 93/57 L 91/54 L 79/50 L Pulse Oximetry 99 99 99 04/13/18 07:15 04/13/18 08:00 04/13/18 10:00 Temperature 98.4 F Pulse Rate 55 L 65 66 Respiratory Rate 15 Blood Pressure 109/62 Pulse Oximetry 100 04/13/18 10:09 04/13/18 10:13 04/13/18 11:45 Temperature Pulse Rate 83 85 Respiratory Rate 16 17 17 Blood Pressure 154/79 H Pulse Oximetry 100 99 04/13/18 12:00 04/13/18 12:15 04/13/18 12:30 Temperature 98.5 F Pulse Rate 84 83 84 Respiratory Rate 14 15 16 Blood Pressure 154/88 H 155/93 H 153/94 H Pulse Oximetry 100 100 100 04/13/18 12:45 04/13/18 13:00 04/13/18 13:15 Temperature Pulse Rate 79 82 77 Respiratory Rate 14 15 14 Blood Pressure 154/97 H 142/92 H 141/83 H Pulse Oximetry 100 100 100 04/13/18 13:30 04/13/18 13:45 04/13/18 14:00 Temperature Pulse Rate 82 78 78 Respiratory Rate 14 14 14 Blood Pressure 156/90 H 154/94 H 150/96 H Pulse Oximetry 100 100 100 04/13/18 14:15 04/13/18 14:30 04/13/18 14:49 Temperature Pulse Rate 76 72 63 Respiratory Rate 14 15 15 Blood Pressure 154/95 H 134/85 105/66 Pulse Oximetry 100 100 100 04/13/18 15:00 04/13/18 15:15 04/13/18 15:30 Temperature Pulse Rate 63 67 76 Respiratory Rate 15 15 16 Blood Pressure 106/68 102/68 135/63 Pulse Oximetry 100 100 85 L 04/13/18 15:45 04/13/18 16:00 04/13/18 16:15 Temperature 98.2 F Pulse Rate 69 71 58 L Respiratory Rate 15 15 15 Blood Pressure 134/72 127/73 85/57 L Pulse Oximetry 99 96 100 04/13/18 16:30 04/13/18 16:45 04/13/18 17:00 Temperature Pulse Rate 57 L 70 67 Respiratory Rate 15 15 15 Blood Pressure 83/56 L 135/72 128/75 Pulse Oximetry 100 99 100 04/13/18 17:28 04/13/18 17:30 04/13/18 17:33 Temperature Pulse Rate 71 69 69 Respiratory Rate 15 15 15 Blood Pressure 130/78 119/74 Pulse Oximetry 100 100 100 04/13/18 17:45 04/13/18 19:33 Temperature Pulse Rate 67 71 Respiratory Rate 16 15 Blood Pressure 127/80 Pulse Oximetry 100 Intake & Output 04/13/18 04/13/18 04/14/18 06:59 18:59 06:59 Intake Total 1150 / 1150 1750 / 1750 Output Total 600 / 600 Balance 550 / 550 1750 / 1750 Weight 88.5 kg Intake: IV 650 / 650 1350 / 1350 Precedex Inj 1,000 MCG In NS 250 / 250 250 / 250 Inj 240 ML @ 0.2 MCG/KG/HR 4.31 mls/hr IV.CONT TITRATE PRN Rx# :[id number] 1/2 Normal Saline Inj 1,000 ML 1000 / 1000 @ 42 mls/hr IV.CONT .[id number] GIGI Rx#:[id number] Ofirmev Inj 1,000 mg In 100 ml 200 / 200 @ 400 mls/hr IV.SIG Q6H GIGI Rx# :[id number] Mycamine Inj 150 MG In NS Inj 100 / 100 100 ML @ 100 mls/hr IV.SIG Q24H GIGI Rx#:[id number] Zosyn 2.25 GM Premix 2.25 gm In 100 / 100 50 ml @ 100 mls/hr IV.SIG Q6H GIGI Rx#:[id number] Zosyn 4.5 GM Premix 4.5 gm In 100 / 100 100 ml @ 200 mls/hr IV.SIG Q6H GIGI Rx#:[id number] Water Bolus Amount 100 / 100 Free Water Amount 400 / 400 400 / 400 Output: Urine Amount (Catheter) 550 / 550 Indwelling Urethral Catheter 550 / 550 Gastric Drainage 50 / 50 Orogastric Tube 50 / 50 Other: Date of Last Bowel Movement 04/12/18 04/13/18 04/11/18 18:15 Blood - Peripheral Aerobic Blood Culture - Preliminary No growth in 2 days 04/11/18 18:15 Blood - Peripheral Anaerobic Blood Culture - Preliminary No growth in 2 days 04/11/18 18:00 Blood - Peripheral Aerobic Blood Culture - Preliminary No growth in 2 days 04/11/18 18:00 Blood - Peripheral Anaerobic Blood Culture - Preliminary No growth in 2 days 04/10/18 17:45 Blood - Peripheral Aerobic Blood Culture - Preliminary No growth in 3 days 04/10/18 17:45 Blood - Peripheral Anaerobic Blood Culture - Preliminary No growth in 3 days 04/10/18 17:50 Blood - Peripheral Aerobic Blood Culture - Preliminary No growth in 3 days 04/10/18 17:50 Blood - Peripheral Anaerobic Blood Culture - Preliminary No growth in 3 days 04/11/18 18:00 Bronchial Washings - Left Lower Lobe Acid Fast Bacilli Smear - Final No acid fast bacilli seen 04/11/18 18:00 Bronchial Washings - Left Lower Lobe Mycobacterial Culture - Pending 04/12/18 00:50 Stool Cryptosporidium Antigen - Final Negative - No Cryptosporicium antigen detected In selected cases of patients with a history of immunosuppression or foreign travel, a full ova and parasites examination may be desired. Contact the microbiology lab if full workup is indicated and subit another specimen for testing. 04/12/18 00:50 Stool Giardia Antigen (LISSETH) - Final Negative - No Giardia Antigen detected In selected cases of patients with a history of immunosuppression or foreign travel, a full ova and parasites examination may be desired. Contact the microbiology lab if full workup is indicated and subit another specimen for testing. 04/11/18 18:00 Bronchial Washings - Left Lower Lobe Fungal Smear - Final No fungal elements seen 04/11/18 18:00 Bronchial Washings - Left Lower Lobe Fungal Culture - Pending 04/11/18 18:00 Bronchial - Bronchial Gram Stain - Final 04/11/18 18:00 Bronchial - Bronchial Bronchial Culture - Final Heavy growth normal respiratory giovanni 04/11/18 09:25 Sputum - Endotracheal Gram Stain - Final 04/11/18 09:25 Sputum - Endotracheal Sputum Culture - Final Heavy growth normal respiratory giovanni 04/12/18 00:50 Stool Enteric Pathogens (PCR) - Final No enteric pathogens detected by PCR (No Salmonella sp., Shigella sp., Campylobacter sp., Yersinia enterocolitica, Vibrio sp., Norovirus, or EHEC (Shiga Toxin 1 or Shiga Toxin 2) detected. 04/10/18 18:45 Sputum - Endotracheal Gram Stain - Final 04/10/18 18:45 Sputum - Endotracheal Sputum Culture - Final Rare growth normal respiratory igovanni 04/12/18 00:50 Stool Stool for WBCs - Final Rare WBC's 04/10/18 18:45 Catheterized Urine Urine Culture - Final No growth in 48 hours Lab - Hematology Results 04/12/18 04/13/18 04:25 03:58 WBC 20.8 H 15.1 H RBC 3.47 L 3.24 L Hgb 10.9 L 10.0 L Hct 32.5 L 30.8 L MCV 93.7 95.2 MCH 31.3 30.9 MCHC 33.4 32.5 RDW 15.2 14.6 Plt Count 282 268 MPV 8.6 9.2 Neut % (Auto) 91.8 H 89.7 H Lymph % (Auto) 3.7 L 3.6 L [place] % (Auto) 3.8 5.0 Eos % (Auto) 0.5 1.4 Baso % (Auto) 0.2 0.3 Neut # (Auto) 19.1 H 13.6 H Lymph # (Auto) 0.8 L 0.5 L [place] # (Auto) 0.8 0.8 Eos # (Auto) 0.1 0.2 Baso # (Auto) 0.0 0.0 WBC Differential . . Differential Comment Auto diff final Auto diff final Lab - Chemistry Results 04/12/18 04/12/18 04/13/18 04:25 04:25 03:58 Sodium 151 H 150 H Potassium 3.4 L 3.3 L Chloride 116 H 117 H Carbon Dioxide 28.9 26.8 Anion Gap 6 6 BUN 44 H 37 H Creatinine 1.35 H 1.08 Estimated GFR 53 L 68 L Random Glucose 132 H 104 Calcium 8.8 D 8.8 Phosphorus 3.2 D 2.9 Magnesium 2.6 H D 2.5 Total Bilirubin 1.1 H 0.6 AST 46 H 34 ALT 127 H 99 H Alkaline Phosphatase 68 65 Ammonia 27 Total Protein 6.3 L D 5.9 L Albumin 2.7 L D 2.5 L Amylase 177 H Imaging: ITS Impressions Head MRI 03/31/18 00:00 CONCLUSION: Negative exam Head CT 03/31/18 12:16 CONCLUSION: 1. Negative CT Head non contrast. . Chest CTA 03/31/18 14:39 CONCLUSION: 1. Bibasilar atelectatic changes, left greater than right. No confluent infiltrate. 2. No pulmonary embolus. 3. Atherosclerotic calcification of the coronary arteries. Cervical Spine MRI 03/31/18 16:17 CONCLUSION: 1. Status post fusion at the C5-C6 level. There is susceptibility artifact from the hardware. 2. A significant area of stenosis in the thecal sac is not seen. 3. Facet hypertrophy seen throughout with scattered areas of neural foraminal narrowing as described above. 4. The patient is intubated with fluid in the hypopharynx, laryngeal pharynx, and upper trachea around the ET tube and above the tracheal ET tube cuff. 5. The does appear to be some mild soft tissue swelling in the prevertebral region best seen on the sagittal images. Abdomen/Bladder Ultrasound 04/10/18 08:05 CONCLUSION: 1. Probable complex cyst coming off the right lower pole kidney appears smaller since 2017 CT examination of the abdomen. Chest CT 04/11/18 00:00 CONCLUSION: 1. Patchy nodular opacities in the right lower lobe coalescing posteriorly most consistent with an infectious etiology such as bronchopneumonia. 2. Near complete left lower lobe collapse and dense airspace consolidation in the posterior right lower lobe. Differential considerations include aspiration. 3. Coronary artery cavitations. Abdomen/Pelvis CT 04/11/18 13:06 CONCLUSION: 1. Bilateral lower lobe consolidations left greater than right. Distended small and large bowel without evidence of wall thickening or obstruction. NG tube coiled within the stomach. Chest X-Ray 04/13/18 06:00 CONCLUSION: Support apparatus unchanged. Stable bilateral mostly basilar airspace disease since April 12. Abdomen X-Ray 04/13/18 08:00 CONCLUSION: 1. Some improvement in the gaseous distention of the bowel. Cecum previously measured 11 cm in diameter and now measures approximately 8 cm. 2. No pneumoperitoneum. Nasogastric tube appears to been advanced into the expected location of the duodenum Physical Exam: GENERAL: NAD awake, uint'd SKIN: Warm and dry. HEAD: Atraumatic. Normocephalic. EYES: Pupils equal and round. No scleral icterus. No injection or drainage. ENT: No nasal bleeding or discharge. Mucous membranes pink and moist. NECK: Trachea midline. No JVD. CARDIOVASCULAR: Regular tachycardia and gallop (?S 3) RESPIRATORY: No accessory muscle use. Clear to auscultation. Breath sounds equal, decreased bilaterally. GASTROINTESTINAL: Abdomen soft, non-tender, nondistended. Hepatic and splenic margins not palpable. MUSCULOSKELETAL: Extremities without clubbing, cyanosis, + mild edema. No obvious deformities. NEUROLOGICAL: lethargic, but easily arousable PSYCHIATRIC: calm Assessment and Plan - Plan C spine fusion Hypercapnia difficulty breathing developped after surgery Kleb oxytoca PNA signs of PNA resolved cliniclaly and radiologically Acute VDRF, improving fever, low grade: resolved No e/o [employer] infx New leukocytosis ARF - no obstruction on US, UOP improved p bolus per RN hypotensive episode: resolved with adjusting pressure medx Aspiration PNA Sepsis, new source likely PNA Colonic ileus, C.diff negative will cont zosyn freida micafungin freida tijerina RN breezy Bell, breezy @ bs
[2018-04-14] MEDS: Artificial Tears Opth Drops 15 ML Bottle EACH EYE SCH ×3 (00:22→17:00)
[2018-04-14] MEDS: Oral Hygiene Kit OROPHARYNG SCH ×5 (00:22→23:02)
[2018-04-14] MEDS: Piperacil/Tazo 4.5 GM Premix 4.5 GM/100 ML BAG IV.SIG SCH ×4 (01:48→20:51)
[2018-04-14] MEDS: Acetaminophen 325 MG Tablet PO PRN (02:12)
--- NOTE | 2018-04-14 04:57 | XR ---
EXAM DATE: 04/14/2018 4:53 AM EST AGE/SEX: 67 years / Male INDICATIONS: Respiratory failure. CLINICAL DATA: This is the patient's subsequent encounter. Patient reports that signs and symptoms h ave been present for 2 weeks and indicates a pain score of Nonresponsive. MEDICAL/SURGICAL HISTORY: . Thyroid Disease. . Microdiscectomy. Left inguinal hernia repair. COMPARISON: [facility] [place], CHEST 1V SINGLE AP, 04/13/2018. . FINDINGS: A single AP view of the chest demonstrates minimal bibasilar densities. Endotracheal tube, nasogastri c tube and right jugular central line are stable position. Heart normal in size. The cardiomediastina l contours are unremarkable. Osseous structures are intact. CONCLUSION: Minimal bibasilar densities, slightly improved. Electronically signed by: Dashawn Carrasquillo MD Board Certified Radiologist 04/14/2018 4:55 AM EST
--- NOTE | 2018-04-14 04:58 | XR ---
EXAM DATE: 04/14/2018 4:55 AM EST AGE/SEX: 67 years / Male INDICATIONS: Ileus. CLINICAL DATA: This is the patient's subsequent encounter. Patient reports that signs and symptoms h ave been present for 2 weeks and indicates a pain score of Nonresponsive. MEDICAL/SURGICAL HISTORY: . Thyroid disease. . Microdiscectomy. Left inguinal hernia repair. COMPARISON: [facility], ABDOMEN SINGLE VIEW, 04/13/2018. . FINDINGS: Examination of the abdomen demonstrates mild gaseous distention of small and large bowel loops. Nasog astric tube unchanged. No free air is identified. No organomegaly is evident. Osseous structures a re intact. CONCLUSION: Mild gaseous distention of bowel loops Electronically signed by: Dashawn Carrasquillo MD Board Certified Radiologist 04/14/2018 4:56 AM EST
[2018-04-14] MEDS: Levothyroxine 125 MCG Tablet PO SCH (05:53)
[2018-04-14 06:56] LABS: Baso % (Auto) 0.3 % (0.0-2.0); Eos # (Auto) 0.1 th/mm3 (0.0-0.4); Eos % (Auto) 1.1 % (0.0-4.0); Hematocrit 30.6 % (39.0-51.0); Hemoglobin 10.1 gm/dL (13.0-17.0); Lymph # (Auto) 0.4 th/mm3 (1.0-4.8); Lymph % (Auto) 4.5 % (9.0-44.0); Mean Corpuscular Hemoglobin 31.1 pg (27.0-34.0); Mean Corpuscular Volume 94.2 fL (80.0-100.0); Mean Platelet Volume 9.2 fL (7.0-11.0); Mono # (Auto) 0.5 th/mm3 (0.0-0.9); Mono % (Auto) 5.4 % (0.0-8.0); Neut # (Auto) 8.6 th/mm3 (1.8-7.7); Neut % (Auto) 88.7 % (16.0-70.0); Platelet Count 272 th/mm3 (150-450); Red Blood Count 3.25 mil/mm3 (4.50-5.90); Red Cell Distribution Width 14.5 % (11.6-17.2); White Blood Count 9.7 th/mm3 (4.0-11.0)
[2018-04-14 07:01] LABS: Alanine Aminotransferase 83 U/L (12-78); Albumin 2.4 g/dL (3.4-5.0); Alkaline Phosphatase 70 U/L (45-117); Anion Gap 8 meq/L (5-15); Aspartate Aminotransferase 28 U/L (15-37); Blood Urea Nitrogen 29 mg/dL (7-18); Carbon Dioxide 24.5 meq/L (21.0-32.0); Chloride 119 meq/L (98-107); Glomerular Filtration Rate 79 mL/min (>89); Glucose,Random 92 mg/dL (74-106); Magnesium 2.3 mg/dL (1.5-2.5); Phosphorus 2.6 mg/dL (2.5-4.9); Sodium 151 meq/L (136-145); Total Protein 5.9 g/dL (6.4-8.2)
[2018-04-14 07:03] LABS: Potassium 2.7 meq/L (3.5-5.1)
[2018-04-14] MEDS: Dexmedetomidine Inj 1,000 MCG in Sodium Chlor 0.9% Inj 240 ML IV.CONT PRN ×2 (07:27→22:06)
[2018-04-14] MEDS: Senna/Docusate Sodium 8.6/50 MG Tablet PO SCH ×2 (09:59→20:52)
[2018-04-14] MEDS: Enoxaparin Inj 40 MG/0.4 ML Syringe SQ SCH (10:01)
[2018-04-14] MEDS: Polyethylene Glycol 3350 17 GM Packet PO SCH ×2 (10:02→20:51)
[2018-04-14] MEDS: Chlorhexidine 0.12% Oral Kit 15 ML UDC OROPHARYNG SCH ×2 (10:02→20:51)
[2018-04-14] MEDS: Potassium Chlor 40 mEq Premix 40 MEQ/100 ML PIGGYBACK IV.SIG SCH ×2 (10:02→14:34)
[2018-04-14] MEDS ORDERED: fentaNYL Citrate Inj 100 MCG/2 ML Ampul ONE (12:54)
[2018-04-14] MEDS ORDERED: Midazolam Inj 5 MG/ML 1 ML Vial ONE (12:54)
[2018-04-14] MEDS ORDERED: fentaNYL Citrate Inj 100 MCG/2 ML Ampul IV.PUSH ONE (14:15)
--- NOTE | 2018-04-14 14:19 | P.PCN ---
Date of procedure: 04/14/18 Pre-op diagnosis: respiratory failure Post-op diagnosis: same Procedure: EBL: 5 cc Procedure in detail: The patient remained in his intensive care unit bed. He was placed in supine position with the neck slightly hyperextended. The patient was administered sedative and paralytic medications per Dr. Caputo. The anterior neck was prepped and draped in usual sterile fashion. A 1 cm incision was made about 1 fingerbreadth superior to the sternal notch. Minimal blunt dissection was carried out. The bronchoscope was inserted down the endotracheal tube which was withdrawn past the site of the anticipated entry into the trachea. The large-bore needle and catheter were inserted through the anterior trachea and there was air aspirated into the syringe. The wire fed easily and this was also visualized via the bronchoscope. The punch dilator was inserted. There is some difficulty with placement of the larger dilator and I think the initial puncture site had been at a tracheal ring. The dilator seem to be pretracheal and was certainly not entering the trachea as visualized by the bronchoscopy. Therefore I left the wire in place in the trachea and opened a new kit. I placed the needle and catheter and a new position in between tracheal rings. A second wire fed easily through this new catheter. This new tract was then serially dilated with the punch dilator and the Blue Rhino dilator and was visualized to directly enter the trachea. The Shiley #8 tracheostomy tube with guide was placed over the wire and easily entered the trachea. This was also visualized bronchoscopically. The bronchoscope was inserted down the trach tube and the position again confirmed. The cuff was inflated and the apparatus switched to the trach tube. There was adequate tidal volumes. The trach was sutured in place with 4 separate 2-0 Prolene sutures. A dressing and trach collar was applied. The patient tolerated procedure well and remained in his intensive care unit bed. Surgeon: Oren Conde Estimated blood loss (mL): 5 Pathology: none sent Disposition: ICU
--- NOTE | 2018-04-14 17:14 | P.PNID ---
Subjective Remarks: cont to improve clinically WBC down to normal , 9.5 K No growth in cultures plans for PEG sp trach renal fnx normal Antibiotics: zosyn started 04/11 Allergies/Adverse Reactions: Allergies Sulfa (Sulfonamide Antibiotics) Allergy (Severe, Verified 02/15/18 05:02) Nausea also flu like symptoms Objective Vital Signs 04/13/18 17:28 04/13/18 17:30 04/13/18 17:33 Temperature Pulse Rate 71 69 69 Respiratory Rate 15 15 15 Blood Pressure 130/78 119/74 Pulse Oximetry 100 100 100 04/13/18 17:45 04/13/18 18:00 04/13/18 18:15 Temperature Pulse Rate 67 72 72 Respiratory Rate 16 17 16 Blood Pressure 127/80 143/85 H 138/84 Pulse Oximetry 100 100 100 04/13/18 18:30 04/13/18 18:45 04/13/18 19:00 Temperature Pulse Rate 72 72 74 Respiratory Rate 16 16 15 Blood Pressure 126/79 135/82 144/85 H Pulse Oximetry 100 100 100 04/13/18 19:15 04/13/18 19:30 04/13/18 19:33 Temperature Pulse Rate 75 70 71 Respiratory Rate 15 15 15 Blood Pressure 144/83 H 121/71 Pulse Oximetry 100 100 04/13/18 19:45 04/13/18 20:00 04/13/18 20:15 Temperature Pulse Rate 70 78 74 Respiratory Rate 16 15 15 Blood Pressure 124/77 153/78 H 133/75 Pulse Oximetry 100 100 100 04/13/18 20:30 04/13/18 20:45 04/13/18 21:00 Temperature 98.1 F Pulse Rate 78 73 74 Respiratory Rate 15 15 15 Blood Pressure 142/81 H 121/75 124/77 Pulse Oximetry 100 99 100 04/13/18 21:15 04/13/18 21:30 04/13/18 21:45 Temperature Pulse Rate 72 69 75 Respiratory Rate 15 15 15 Blood Pressure 123/76 115/72 145/84 H Pulse Oximetry 100 100 100 04/13/18 22:00 04/13/18 22:15 04/13/18 22:30 Temperature Pulse Rate 67 72 75 Respiratory Rate 15 15 16 Blood Pressure 131/82 114/92 H 145/77 H Pulse Oximetry 100 100 100 04/13/18 22:45 04/13/18 23:00 04/13/18 23:15 Temperature Pulse Rate 65 64 63 Respiratory Rate 15 15 15 Blood Pressure 124/70 118/75 121/73 Pulse Oximetry 100 100 100 04/13/18 23:30 04/13/18 23:39 04/13/18 23:41 Temperature Pulse Rate 60 63 Respiratory Rate 15 15 15 Blood Pressure 102/66 Pulse Oximetry 100 100 04/13/18 23:45 04/14/18 00:00 04/14/18 00:15 Temperature 97.6 F Pulse Rate 59 L 60 60 Respiratory Rate 15 15 15 Blood Pressure 119/70 140/80 130/79 Pulse Oximetry 100 100 100 04/14/18 00:30 04/14/18 00:45 04/14/18 01:00 Temperature Pulse Rate 66 66 65 Respiratory Rate 19 15 15 Blood Pressure 125/76 125/80 Pulse Oximetry 100 100 100 04/14/18 01:15 04/14/18 01:30 04/14/18 01:45 Temperature 97.9 F Pulse Rate 63 64 61 Respiratory Rate 15 15 15 Blood Pressure 132/80 132/86 122/75 Pulse Oximetry 100 100 100 04/14/18 02:00 04/14/18 02:15 04/14/18 02:30 Temperature Pulse Rate 79 76 72 Respiratory Rate 15 15 15 Blood Pressure 191/100 H 163/85 H 149/84 H Pulse Oximetry 100 100 100 04/14/18 02:35 04/14/18 02:45 04/14/18 03:00 Temperature Pulse Rate 77 81 Respiratory Rate 15 15 15 Blood Pressure 152/93 H 144/81 H Pulse Oximetry 98 98 04/14/18 03:15 04/14/18 03:18 04/14/18 03:30 Temperature Pulse Rate 69 67 Respiratory Rate 15 17 15 Blood Pressure 108/67 111/71 Pulse Oximetry 98 98 100 04/14/18 03:45 04/14/18 04:00 04/14/18 04:15 Temperature Pulse Rate 69 73 76 Respiratory Rate 15 15 15 Blood Pressure 119/72 119/66 121/68 Pulse Oximetry 100 100 100 04/14/18 04:30 04/14/18 04:45 04/14/18 05:00 Temperature 98 F Pulse Rate 63 72 71 Respiratory Rate 15 15 15 Blood Pressure 129/69 127/72 130/69 Pulse Oximetry 100 100 100 04/14/18 05:15 04/14/18 05:30 04/14/18 05:45 Temperature Pulse Rate 82 75 75 Respiratory Rate 17 15 15 Blood Pressure 163/80 H 138/78 136/79 Pulse Oximetry 96 100 100 04/14/18 06:00 04/14/18 07:59 04/14/18 08:00 Temperature Pulse Rate 70 63 65 Respiratory Rate 15 15 Blood Pressure 185/98 H Pulse Oximetry 100 100 04/14/18 10:00 04/14/18 10:53 04/14/18 12:00 Temperature Pulse Rate 74 91 H 65 Respiratory Rate 16 Blood Pressure Pulse Oximetry 100 04/14/18 13:00 04/14/18 13:02 04/14/18 13:38 Temperature Pulse Rate 77 78 74 Respiratory Rate 15 15 15 Blood Pressure 146/83 H 156/87 H Pulse Oximetry 100 100 100 04/14/18 13:41 04/14/18 13:44 04/14/18 13:47 Temperature Pulse Rate 65 63 64 Respiratory Rate 15 15 15 Blood Pressure 107/60 105/62 106/66 Pulse Oximetry 100 100 100 04/14/18 13:50 04/14/18 13:53 04/14/18 13:56 Temperature Pulse Rate 65 65 62 Respiratory Rate 15 15 19 Blood Pressure 117/69 105/60 111/67 Pulse Oximetry 100 100 100 04/14/18 13:59 04/14/18 14:00 04/14/18 14:02 Temperature Pulse Rate 69 69 75 Respiratory Rate 25 H 20 22 Blood Pressure 120/70 130/77 Pulse Oximetry 100 100 100 04/14/18 14:05 04/14/18 14:08 04/14/18 14:11 Temperature Pulse Rate 70 67 69 Respiratory Rate 32 H 25 H 25 H Blood Pressure 109/62 106/62 121/70 Pulse Oximetry 100 100 100 04/14/18 14:14 04/14/18 14:17 04/14/18 14:20 Temperature Pulse Rate 64 69 64 Respiratory Rate 25 H 25 H 14 Blood Pressure 98/55 L 117/66 112/67 Pulse Oximetry 100 100 100 04/14/18 14:23 04/14/18 14:26 04/14/18 14:32 Temperature Pulse Rate 76 65 61 Respiratory Rate 14 14 17 Blood Pressure 149/81 H 125/73 105/66 Pulse Oximetry 100 100 100 04/14/18 15:00 04/14/18 15:02 04/14/18 15:05 Temperature Pulse Rate 75 73 Respiratory Rate 15 15 21 Blood Pressure 144/74 H Pulse Oximetry 99 99 04/14/18 15:30 04/14/18 15:32 04/14/18 16:00 Temperature Pulse Rate 72 71 73 Respiratory Rate 15 15 21 Blood Pressure 143/85 H Pulse Oximetry 100 100 100 04/14/18 16:02 04/14/18 16:32 Temperature Pulse Rate 73 76 Respiratory Rate 21 21 Blood Pressure 143/78 H 161/79 H Pulse Oximetry 100 100 Intake & Output 04/13/18 04/14/18 04/14/18 18:59 06:59 18:59 Intake Total 1750 / 1750 850 / 850 1200 / 1200 Output Total 700 / 700 850 / 850 Balance 1050 / 1050 0 / 0 1200 / 1200 Weight 89.2 kg Intake: IV 1350 / 1350 450 / 450 1200 / 1200 Precedex Inj 1,000 MCG In NS 250 / 250 250 / 250 Inj 240 ML @ 0.2 MCG/KG/HR 4.31 mls/hr IV.CONT TITRATE PRN Rx# :[id number] 1/2 Normal Saline Inj 1,000 ML 1000 / 1000 1000 / 1000 @ 42 mls/hr IV.CONT .[id number] [facility] Rx#:[id number] Zosyn 4.5 GM Premix 4.5 gm In 100 / 100 200 / 200 100 / 100 100 ml @ 200 mls/hr IV.SIG Q6H GIGI Rx#:[id number] KCl 40 mEq Premix Inj 40 meq In 100 / 100 100 ml @ 25 mls/hr IV.SIG Q4H GIGI Rx#:[id number] Free Water Amount 400 / 400 400 / 400 Output: Urine Amount (Catheter) 650 / 650 750 / 750 Indwelling Urethral Catheter 650 / 650 750 / 750 Gastric Drainage 50 / 50 100 / 100 Orogastric Tube 50 / 50 100 / 100 Other: Date of Last Bowel Movement 04/13/18 04/14/18 04/14/18 # Incontinent Bowel Movements 2 4 04/11/18 18:15 Blood - Peripheral Aerobic Blood Culture - Preliminary No growth in 3 days 04/11/18 18:15 Blood - Peripheral Anaerobic Blood Culture - Preliminary No growth in 3 days 04/11/18 18:00 Blood - Peripheral Aerobic Blood Culture - Preliminary No growth in 3 days 04/11/18 18:00 Blood - Peripheral Anaerobic Blood Culture - Preliminary No growth in 3 days 04/10/18 17:45 Blood - Peripheral Aerobic Blood Culture - Preliminary No growth in 4 days 04/10/18 17:45 Blood - Peripheral Anaerobic Blood Culture - Preliminary No growth in 4 days 04/10/18 17:50 Blood - Peripheral Aerobic Blood Culture - Preliminary No growth in 4 days 04/10/18 17:50 Blood - Peripheral Anaerobic Blood Culture - Preliminary No growth in 4 days 04/11/18 18:00 Bronchial Washings - Left Lower Lobe Acid Fast Bacilli Smear - Final No acid fast bacilli seen 04/11/18 18:00 Bronchial Washings - Left Lower Lobe Mycobacterial Culture - Pending 04/12/18 00:50 Stool Cryptosporidium Antigen - Final Negative - No Cryptosporicium antigen detected In selected cases of patients with a history of immunosuppression or foreign travel, a full ova and parasites examination may be desired. Contact the microbiology lab if full workup is indicated and subit another specimen for testing. 04/12/18 00:50 Stool Giardia Antigen (LISSETH) - Final Negative - No Giardia Antigen detected In selected cases of patients with a history of immunosuppression or foreign travel, a full ova and parasites examination may be desired. Contact the microbiology lab if full workup is indicated and subit another specimen for testing. 04/11/18 18:00 Bronchial Washings - Left Lower Lobe Fungal Smear - Final No fungal elements seen 04/11/18 18:00 Bronchial Washings - Left Lower Lobe Fungal Culture - Pending 04/11/18 18:00 Bronchial - Bronchial Gram Stain - Final 04/11/18 18:00 Bronchial - Bronchial Bronchial Culture - Final Heavy growth normal respiratory giovanni 04/11/18 09:25 Sputum - Endotracheal Gram Stain - Final 04/11/18 09:25 Sputum - Endotracheal Sputum Culture - Final Heavy growth normal respiratory giovanni 04/12/18 00:50 Stool Enteric Pathogens (PCR) - Final No enteric pathogens detected by PCR (No Salmonella sp., Shigella sp., Campylobacter sp., Yersinia enterocolitica, Vibrio sp., Norovirus, or EHEC (Shiga Toxin 1 or Shiga Toxin 2) detected. 04/10/18 18:45 Sputum - Endotracheal Gram Stain - Final 04/10/18 18:45 Sputum - Endotracheal Sputum Culture - Final Rare growth normal respiratory giovanni 04/12/18 00:50 Stool Stool for WBCs - Final Rare WBC's 04/10/18 18:45 Catheterized Urine Urine Culture - Final No growth in 48 hours Lab - Hematology Results 04/13/18 04/14/18 03:58 06:00 WBC 15.1 H 9.7 RBC 3.24 L 3.25 L Hgb 10.0 L 10.1 L Hct 30.8 L 30.6 L MCV 95.2 94.2 MCH 30.9 31.1 MCHC 32.5 33.0 RDW 14.6 14.5 Plt Count 268 272 MPV 9.2 9.2 Neut % (Auto) 89.7 H 88.7 H Lymph % (Auto) 3.6 L 4.5 L Wilson % (Auto) 5.0 5.4 Eos % (Auto) 1.4 1.1 Baso % (Auto) 0.3 0.3 Neut # (Auto) 13.6 H 8.6 H Lymph # (Auto) 0.5 L 0.4 L Wilson # (Auto) 0.8 0.5 Eos # (Auto) 0.2 0.1 Baso # (Auto) 0.0 0.0 WBC Differential . . Differential Comment Auto diff final Auto diff final Lab - Chemistry Results 04/13/18 04/14/18 03:58 06:00 Sodium 150 H 151 H Potassium 3.3 L 2.7 L* Chloride 117 H 119 H Carbon Dioxide 26.8 24.5 Anion Gap 6 8 BUN 37 H 29 H Creatinine 1.08 0.95 Estimated GFR 68 L 79 L Random Glucose 104 92 Calcium 8.8 8.0 L D Phosphorus 2.9 2.6 Magnesium 2.5 2.3 Total Bilirubin 0.6 0.5 AST 34 28 ALT 99 H 83 H Alkaline Phosphatase 65 70 Total Protein 5.9 L 5.9 L Albumin 2.5 L 2.4 L Imaging: ITS Impressions Head MRI 03/31/18 00:00 CONCLUSION: Negative exam Head CT 03/31/18 12:16 CONCLUSION: 1. Negative CT Head non contrast. . Chest CTA 03/31/18 14:39 CONCLUSION: 1. Bibasilar atelectatic changes, left greater than right. No confluent infiltrate. 2. No pulmonary embolus. 3. Atherosclerotic calcification of the coronary arteries. Cervical Spine MRI 03/31/18 16:17 CONCLUSION: 1. Status post fusion at the C5-C6 level. There is susceptibility artifact from the hardware. 2. A significant area of stenosis in the thecal sac is not seen. 3. Facet hypertrophy seen throughout with scattered areas of neural foraminal narrowing as described above. 4. The patient is intubated with fluid in the hypopharynx, laryngeal pharynx, and upper trachea around the ET tube and above the tracheal ET tube cuff. 5. The does appear to be some mild soft tissue swelling in the prevertebral region best seen on the sagittal images. Abdomen/Bladder Ultrasound 04/10/18 08:05 CONCLUSION: 1. Probable complex cyst coming off the right lower pole kidney appears smaller since 2017 CT examination of the abdomen. Chest CT 04/11/18 00:00 CONCLUSION: 1. Patchy nodular opacities in the right lower lobe coalescing posteriorly most consistent with an infectious etiology such as bronchopneumonia. 2. Near complete left lower lobe collapse and dense airspace consolidation in the posterior right lower lobe. Differential considerations include aspiration. 3. Coronary artery cavitations. Abdomen/Pelvis CT 04/11/18 13:06 CONCLUSION: 1. Bilateral lower lobe consolidations left greater than right. Distended small and large bowel without evidence of wall thickening or obstruction. NG tube coiled within the stomach. Abdomen X-Ray 04/14/18 00:01 CONCLUSION: Mild gaseous distention of bowel loops Chest X-Ray 04/14/18 06:00 CONCLUSION: Minimal bibasilar densities, slightly improved. Physical Exam: GENERAL: NAD awake, unint'd SKIN: Warm and dry. HEAD: Atraumatic. Normocephalic. EYES: Pupils equal and round. No scleral icterus. No injection or drainage. ENT: No nasal bleeding or discharge. Mucous membranes pink and moist. NECK: Trachea midline. No JVD. CARDIOVASCULAR: Regular tachycardia and gallop (?S 3) RESPIRATORY: No accessory muscle use. Clear to auscultation. Breath sounds equal, decreased bilaterally. GASTROINTESTINAL: Abdomen soft, non-tender, nondistended. Hepatic and splenic margins not palpable. MUSCULOSKELETAL: Extremities without clubbing, cyanosis, + mild edema. No obvious deformities. NEUROLOGICAL: lethargic, PSYCHIATRIC: calm Assessment and Plan - Plan C spine fusion Hypercapnia difficulty breathing developped after surgery Kleb oxytoca PNA signs of PNA resolved cliniclaly and radiologically Acute VDRF, improving fever, low grade: resolved No e/o [employer] infx New leukocytosis - resolved ARF - resolved Aspiration PNA today's CXR Minimal bibasilar densities, Sepsis, improving Colonic ileus, C.diff negative: improving cont zosyn thru the end of the w/e if cont to improve dw RN
--- NOTE | 2018-04-14 19:18 | XR ---
EXAM DATE: 04/14/2018 7:06 PM EST AGE/SEX: 67 years / Male INDICATIONS: Abdominal pain in epigastric region. CLINICAL DATA: This is the patient's initial encounter. Patient reports that signs and symptoms have been present for 1 day and indicates a pain score of Nonresponsive. MEDICAL/SURGICAL HISTORY: . Thyroid disease. . Microdiscectomy. Left inguinal hernia repair. [place] [facility] [place]AST[place]/11/2018. . FINDINGS: There is persistent diffuse distention of bowel loops. The nasogastric tube has been replaced; the c urrent catheter is looped back upon itself and has its tip in the distal esophagus.. CONCLUSION: Persistent generalized bowel distention. Nasogastric or orogastric tube is looped back on itself and has its tip in the distal esophagus. Electronically signed by: Miguel Perez MD Board Certified Radiologist 04/14/2018 7:17 PM EST
--- NOTE | 2018-04-14 20:17 | P.PNCC ---
Subjective Subjective Remarks/Hospital Course: This 67-year-old came into the emergency room today with his and daughter. On 02/13/2018, he had a microdiscectomy, C5-C6, by Dr. Schwarz. He was discharged home the next day. A few days after, he had not been feeling well, short of breath, disoriented, generally weak, symptoms were getting worse, disorientation was worse. He was referred to emergency department by his primary care physician for an evaluation. In the ED he was found to be in severe hypercarbic respiratory acidosis and was intubated by ED attending. 04/01: CO2 retention corrected. Remains mildly alkalotic due to chronic CO2 elevation. PH normalized. Still requiring vasopressor therapy with norepinephrine. Broad-spectrum antibiotic coverage started. Lumbar puncture performed with opening pressure 20 and crystal-clear fluid, sent for cell counts , chemistries and culture. HSV included. One extra tube sent for future studies if necessary. Ammonia level 71 - repeat daily. 04/02: CSF appears benign. Repeat ammonia level normal. Gamma GT normal. Cardiac echo estimated of 45% ejection fraction requires a little additional investigation -patient has been chronically short of breath for several weeks now. Leukocytosis and left shift persists. Gram-positive cocci and white cells seen in sputum. This man clearly became acutely and critically ill - exact cause still eludes us. 04/03: Leukocytosis improved. Remains quite rigid when stimulated. Continues to move 4 limbs with purpose and follows commands with 4 limbs. Sputum demonstrates white blood cells and gram-negative rods. 04/04: Improved color and perfusion. Extubated yesterday afternoon but failed after about 45 minutes -developed somnolence then obtundation, appeared to be having difficulty taking a breath, concern for vocal cord dysfunction. On reintubation the cord edges were irregular but otherwise normal in appearance. I could not assess cord function as patient was not alert enough to cooperate with commands. We will definitely pursue possibilities of vocal cord dysfunction and or phrenic nerve paralysis once we get him extubated. Ideally, a sniff test under fluoroscopy would demonstrate any paradoxical diaphragm motion. 04/05: Afebrile. Neurologically appears intact. Daughter concerned about "appears distant" however on 40 mcg/kg/min of propofol and 250 mcg an hour fentanyl. No bowel movement since admission. Tube feeding only at 20 cc an hour. 04/06: Afebrile. Neurologically intact. Following commands.. Positive BM. Labile blood pressures yesterday. Replace potassium currently. 04/07: Patient writing notes today. Chest x-ray clear. Elevated left diaphragm , probably dysfunctional. Continued encephalopathy and generalized weakness chris very concerning. We will try Aminophyllin today to see if we can get some diaphragm and central nervous system stimulation. 04/08: Started on theophylline yesterday. Check level in a.m. Will attempt PSV trial today. Noted pulmonology requests possible T-bar with ABG when appropriate. Afebrile. 04/09: T-max 100. theophylline currently 3.7. Currently on CPAP trials. 02/18. 45%. Check ABG at 10 today. Desaturated yesterday currently back at 40%. 04/10: Resting in bed. Episode of nausea overnight. Negative workup. Evaluated positive BM 04/08. Patient more agitated overnight. Propofol discontinued due to hypotension. Currently on fentanyl drip. Theophylline. Creatinine currently 2.0 we will consult nephrology. Discontinue lisinopril. Receiving one half normal saline bolus currently. 04/11: T-max 101.1. Increasing O2 records.Increasing white blood cell count. For the cuff is overinflated to palpate the vocal cords. Leak by examination. Will change ET tube in place central line today. Empirically start antibiotics for aspiration. Not tolerating tube feeds and currently to low inner wall suction. Check KUB after ET tube exchange and central line placement. Restart metoclopramide. Positive BMs. 04/12: Yesterday, CT thorax revealed collapsed left lower lung. Status post bronchoscopy with reinflation of lung. Better saturations today. Continues with small and large bowel colonic distention. Right: 11 cm. GI is following. Might need decompression. Current orogastric tube to low intermittent wall suction. SUBJECTIVE: 04/13: Improved small and large bowel colonic distention. Down to 8 cm long family discussion. We will perform percutaneous tracheostomy and PEG tube as well. Request second neurological opinion. In better spirits today. 04/14: no changes. awakens and follows commands. plan for trach today. Objective Vital Signs / I&O: Vital Signs 04/13/18 20:15 04/13/18 20:30 04/13/18 20:45 Temperature 36.7 C Pulse Rate 74 78 73 Respiratory Rate 15 15 15 Blood Pressure 133/75 142/81 H 121/75 Pulse Oximetry 100 100 99 04/13/18 21:00 04/13/18 21:15 04/13/18 21:30 Temperature Pulse Rate 74 72 69 Respiratory Rate 15 15 15 Blood Pressure 124/77 123/76 115/72 Pulse Oximetry 100 100 100 04/13/18 21:45 04/13/18 22:00 04/13/18 22:15 Temperature Pulse Rate 75 67 72 Respiratory Rate 15 15 15 Blood Pressure 145/84 H 131/82 114/92 H Pulse Oximetry 100 100 100 04/13/18 22:30 04/13/18 22:45 04/13/18 23:00 Temperature Pulse Rate 75 65 64 Respiratory Rate 16 15 15 Blood Pressure 145/77 H 124/70 118/75 Pulse Oximetry 100 100 100 04/13/18 23:15 04/13/18 23:30 04/13/18 23:39 Temperature Pulse Rate 63 60 Respiratory Rate 15 15 15 Blood Pressure 121/73 102/66 Pulse Oximetry 100 100 100 04/13/18 23:41 04/13/18 23:45 04/14/18 00:00 Temperature Pulse Rate 63 59 L 60 Respiratory Rate 15 15 15 Blood Pressure 119/70 140/80 Pulse Oximetry 100 100 04/14/18 00:15 04/14/18 00:30 04/14/18 00:45 Temperature 36.4 C Pulse Rate 60 66 66 Respiratory Rate 15 19 15 Blood Pressure 130/79 125/76 125/80 Pulse Oximetry 100 100 100 04/14/18 01:00 04/14/18 01:15 04/14/18 01:30 Temperature 36.6 C Pulse Rate 65 63 64 Respiratory Rate 15 15 15 Blood Pressure 132/80 132/86 Pulse Oximetry 100 100 100 04/14/18 01:45 04/14/18 02:00 04/14/18 02:15 Temperature Pulse Rate 61 79 76 Respiratory Rate 15 15 15 Blood Pressure 122/75 191/100 H 163/85 H Pulse Oximetry 100 100 100 04/14/18 02:30 04/14/18 02:35 04/14/18 02:45 Temperature Pulse Rate 72 77 Respiratory Rate 15 15 15 Blood Pressure 149/84 H 152/93 H Pulse Oximetry 100 98 04/14/18 03:00 04/14/18 03:15 02/01/19 03:18 Temperature Pulse Rate 81 69 Respiratory Rate 15 15 17 Blood Pressure 144/81 H 108/67 Pulse Oximetry 98 98 98 04/14/18 03:30 04/14/18 03:45 04/14/18 04:00 Temperature Pulse Rate 67 69 73 Respiratory Rate 15 15 15 Blood Pressure 111/71 119/72 119/66 Pulse Oximetry 100 100 100 04/14/18 04:15 04/14/18 04:30 04/14/18 04:45 Temperature 36.6 C Pulse Rate 76 63 72 Respiratory Rate 15 15 15 Blood Pressure 121/68 129/69 127/72 Pulse Oximetry 100 100 100 04/14/18 05:00 04/14/18 05:15 04/14/18 05:30 Temperature Pulse Rate 71 82 75 Respiratory Rate 15 17 15 Blood Pressure 130/69 163/80 H 138/78 Pulse Oximetry 100 96 100 04/14/18 05:45 04/14/18 06:00 04/14/18 07:59 Temperature Pulse Rate 75 70 63 Respiratory Rate 15 15 15 Blood Pressure 136/79 185/98 H Pulse Oximetry 100 100 100 04/14/18 08:00 04/14/18 10:00 04/14/18 10:53 Temperature Pulse Rate 65 74 91 H Respiratory Rate 16 Blood Pressure Pulse Oximetry 100 04/14/18 12:00 04/14/18 13:00 04/14/18 13:02 Temperature Pulse Rate 65 77 78 Respiratory Rate 15 15 Blood Pressure 146/83 H Pulse Oximetry 100 100 04/14/18 13:38 04/14/18 13:41 04/14/18 13:44 Temperature Pulse Rate 74 65 63 Respiratory Rate 15 15 15 Blood Pressure 156/87 H 107/60 105/62 Pulse Oximetry 100 100 100 04/14/18 13:47 04/14/18 13:50 04/14/18 13:53 Temperature Pulse Rate 64 65 65 Respiratory Rate 15 15 15 Blood Pressure 106/66 117/69 105/60 Pulse Oximetry 100 100 100 04/14/18 13:56 04/14/18 13:59 04/14/18 14:00 Temperature Pulse Rate 62 69 69 Respiratory Rate 19 25 H 20 Blood Pressure 111/67 120/70 Pulse Oximetry 100 100 100 04/14/18 14:02 04/14/18 14:05 02/01/19 14:08 Temperature Pulse Rate 75 70 67 Respiratory Rate 22 32 H 25 H Blood Pressure 130/77 109/62 106/62 Pulse Oximetry 100 100 100 04/14/18 14:11 04/14/18 14:14 04/14/18 14:17 Temperature Pulse Rate 69 64 69 Respiratory Rate 25 H 25 H 25 H Blood Pressure 121/70 98/55 L 117/66 Pulse Oximetry 100 100 100 04/14/18 14:20 04/14/18 14:23 04/14/18 14:26 Temperature Pulse Rate 64 76 65 Respiratory Rate 14 14 14 Blood Pressure 112/67 149/81 H 125/73 Pulse Oximetry 100 100 100 04/14/18 14:32 04/14/18 15:00 04/14/18 15:02 Temperature Pulse Rate 61 75 73 Respiratory Rate 17 15 15 Blood Pressure 105/66 144/74 H Pulse Oximetry 100 99 99 04/14/18 15:05 04/14/18 15:30 04/14/18 15:32 Temperature Pulse Rate 72 71 Respiratory Rate 21 15 15 Blood Pressure 143/85 H Pulse Oximetry 100 100 04/14/18 16:00 04/14/18 16:02 04/14/18 16:32 Temperature Pulse Rate 73 73 76 Respiratory Rate 21 21 21 Blood Pressure 143/78 H 161/79 H Pulse Oximetry 100 100 100 04/14/18 17:00 04/14/18 17:02 04/14/18 17:32 Temperature Pulse Rate 69 69 83 Respiratory Rate 21 21 21 Blood Pressure 135/78 158/74 H Pulse Oximetry 100 100 100 04/14/18 18:00 04/14/18 18:02 04/14/18 18:32 Temperature Pulse Rate 75 74 76 Respiratory Rate 19 19 21 Blood Pressure 126/70 145/77 H Pulse Oximetry 99 100 100 04/14/18 19:00 04/14/18 19:02 04/14/18 19:32 Temperature Pulse Rate 75 74 65 Respiratory Rate 19 20 20 Blood Pressure 140/74 136/66 Pulse Oximetry 100 100 100 04/14/18 19:39 04/14/18 20:00 04/14/18 20:02 Temperature Pulse Rate 63 63 62 Respiratory Rate 20 15 15 Blood Pressure 114/62 Pulse Oximetry 100 100 100 Intake & Output 04/14/18 04/14/18 04/15/18 06:59 18:59 06:59 Intake Total 850 / 850 1200 / 1200 1100 / 1100 Output Total 850 / 850 700 / 700 Balance 0 / 0 500 / 500 1100 / 1100 Weight 89.2 kg Intake: IV 450 / 450 1200 / 1200 1100 / 1100 Precedex Inj 1,000 MCG In NS 250 / 250 Inj 240 ML @ 0.2 MCG/KG/HR 4.31 mls/hr IV.CONT TITRATE PRN Rx# :[id number] D5W/1/2 NS Inj 1,000 ML @ 84 1000 / 1000 mls/hr IV.CONT .[id number] GIGI Rx# :[id number] 1/2 Normal Saline Inj 1,000 ML 1000 / 1000 @ 42 mls/hr IV.CONT .[id number] GIGI Rx#:[id number] Zosyn 4.5 GM Premix 4.5 gm In 200 / 200 100 / 100 100 / 100 100 ml @ 200 mls/hr IV.SIG Q6H GIGI Rx#:[id number] KCl 40 mEq Premix Inj 40 meq In 100 / 100 100 ml @ 25 mls/hr IV.SIG Q4H GIGI Rx#:[id number] Free Water Amount 400 / 400 Output: Urine Amount (Catheter) 750 / 750 700 / 700 Indwelling Urethral Catheter 750 / 750 700 / 700 Gastric Drainage 100 / 100 Orogastric Tube 100 / 100 Other: Date of Last Bowel Movement 04/14/18 04/14/18 # Incontinent Bowel Movements 4 Result Diagrams: 04/14/18 06:00 04/14/18 06:00 Objective Remarks: GENERAL: 67-year-old male currently orotracheally intubated SKIN: Warm and dry. HEAD: Atraumatic. Normocephalic. EYES: Pupils equal and round. No scleral icterus. No injection or drainage. ENT: No nasal bleeding or discharge. Mucous membranes pink and moist. NECK: Trachea midline. No JVD. Right IJ CVL is clean dry and intact CARDIOVASCULAR: RRR sinus. RESPIRATORY: Raises shoulders to take spontaneous breaths. equal chest rise. GASTROINTESTINAL: Abdomen slightly protuberant/non-tender, slightly firm and tympanic. MUSCULOSKELETAL: Extremities without clubbing, cyanosis, trace to 1+ edema. No obvious deformities. NEUROLOGICAL: Follows commands and moves extremities to command. Assessment and Plan - Assessment and Plan Plan: Neuro/Psych: History of anterior C5/6 microdiscectomy with fusion Currently on fentanyl drip Restarted dexmedetomidine drip. Goal of RASS 0 Daily sedation vacation Evaluate by neurosurgery/Dr. Viera. No intervention planned at this time CT brain/MRI C-spine negative EEG revealed no epileptic activity Neurology following. Recommend myasthenia gravis lab. Negative to date. Left diaphragm remains elevated, suspect not functioning well. Requesting second opinion for neurological status CV: Systolic heart failure unknown if acute or chronic Essential hypertension Hyperlipidemia Ejection fraction 45% on admission. Appreciate cardiac evaluation by Dr. Escobedo. No plans at this time Holding amlodipine 10 mg daily, and metoprolol tartrate 12.5 mg twice daily for hypertension Holding clonidine 0.1 twice daily and lisinopril 5 mg daily in light of hypotension/lisinopril for acute kidney injury Continue pravastatin 40 mg daily for dyslipidemia. Continue aspirin 81 mg by mouth daily. Resp: Acute hypercapnic respiratory failure Klebsiella oxycodone pneumonia PRVC ventilation Ventilator bundle Head of bed at 30 degrees Albuterol/ipratropium aerosols every 4 hours with albuterol aerosols every 2 hours as needed dyspnea Will need sniff test to assess diaphragmatic function once extubated We will consult ENT to assess vocal cords when appropriate Appreciate pulmonary input. Spontaneous breathing trial daily. 02/08 discontinue theophylline 400 mg daily acute delirium. Noted level. 04/09 3.7 Status post bronchoscopy 04/11. Thick white purulent secretions left lower lobe suction to clear. General surgery consult for percutaneous tracheostomy 04/14: Dr. Conde GI: Gastroesophageal reflux disease Transaminitis Hypoalbuminemia Ileus Tube feeding/Nepro at 60 cc an hour days. NG tube to low intermittent wall suction At home on pantoprazole 40 mg daily. Currently on lansoprazole 30 mg daily Docusate sodium/senna 1 tablet twice daily for bowel regimen. On lactulose 30 cc twice daily. Add polyethylene glycol 17 g twice daily and methylnaltrexone x1 today. Check KUB revealed distended large and small bowel. Right: 8 cm.. Recheck in a.m. 04/14 GI consultation. : Wood catheter if indicated for accurate I's and O's in a critical patient Converted to condom cath if possible. Endo: Hypothyroidism TSH 1.28. Continue levothyroxine 125 mg by mouth daily Sliding scale insulin if indicated to maintain euglycemia Renal: Kidney injury - acute Avoid all nephrotoxic medications Creatinine currently 1.1 Neurology consultation for evaluation this is contrast-induced nephropathy from scans 03/31. Avoid nephrotoxic medication. Lisinopril discontinued. Accurate I's and O's Monitor urine output Heme: Normocytic anemia Leukocytosis Monitor CBC daily. Follow trends per No indication for transfusion of blood proximal to this time. ID: Klebsiella oxycodone pneumonia sputum 04/01 Currently repleted therapy with ceftriaxone per infectious disease. Lumbar puncture negative. HSV negative No growth to date on other cultures aside from sputum Recheck blood cultures, sputum 04/02 pending Started on piperacillin/tazobactam 04/11 due to aspiration FEN: Hypernatremia Hypopotassemia Free water 200 cc every 6 hours. Replace electrolytes as clinically indicated per ICU electrolyte protocol. Recheck electrolytes in a.m. Start on one half normal saline at 42 cc MSK: PT evaluate and treat Access -Utilize peripheral IV. Central line if indicated Prophylaxis -GI -lansoprazole -DVT -SCD/enoxaparin Overall impression: Remains quite weak and debilitated. We need to continue to work on nutrition and gentle weaning. His cough is so weak he may benefit from a tracheostomy for pulmonary toilet.
--- NOTE | 2018-04-14 20:20 | P.PCN ---
Date of procedure: 04/14/18 Procedure: Procedure: Diagnostic Fiberoptic Bronchoscopy Diagnosis: Chronic respiratory failure Indications: Need for placement of percutaneous dilation tracheostomy Consent: Written consent was obtained Anesthesia: Versed 5 mg IV, rocuronium 100 mg IV, fentanyl 100 mcg IV Description of the Procedure: The patient was sedated and mechanically ventilated. The patient was placed on 100% FIO2 and a volume control mode of ventilation. The fiberoptic bronchoscopy was inserted via oral endotracheal tube. The trachea, right and left mainstem bronchi, and sub-segmental bronchi were evaluated. The endobronchial anatomy was normal. At this point, the percutaneous dilation tracheostomy procedure was performed. The needle, guidewire, dilator, and tracheostomy were all performed under direct bronchoscopic guidance and visualization. Once the tracheostomy was in place, the bronchoscope was inserted through the tracheostomy, and the lumen of the tracheostomy was confirmed in the lumen of the trachea prior to any positive pressure ventilation. Findings: Minimal secretions BAL samples: None were sent The patient tolerated the procedure well with no hemodynamic instability or hypoxia. There were no immediate complications noted. At the conclusion of the procedure, the patient was placed back on their pre-procedure ventilatory settings. There was minimal EBL. A chest x-ray has been ordered. I personally performed the procedure.
[2018-04-14] MEDS: Dextrose 5%/NaCl 0.45% Inj 1,000 ML IV.CONT SCH ×2 (20:49→20:56)
[2018-04-14] MEDS: Sodium Chloride 0.45 % Inj 1,000 ML IV.CONT SCH (20:50)
--- NOTE | 2018-04-14 21:14 | P.PN ---
Subjective Interval history: Tracheostomy today. Patient in better spirits. Assisting the ventilator and was on AC rate 15 and FiO2 of 45%. Not on tube feeds. Physical Exam Vital signs: Vital Signs 04/13/18 21:15 04/13/18 21:30 04/13/18 21:45 Temperature Pulse Rate 72 69 75 Respiratory Rate 15 15 15 Blood Pressure 123/76 115/72 145/84 H Pulse Oximetry 100 100 100 04/13/18 22:00 04/13/18 22:15 04/13/18 22:30 Temperature Pulse Rate 67 72 75 Respiratory Rate 15 15 16 Blood Pressure 131/82 114/92 H 145/77 H Pulse Oximetry 100 100 100 04/13/18 22:45 04/13/18 23:00 04/13/18 23:15 Temperature Pulse Rate 65 64 63 Respiratory Rate 15 15 15 Blood Pressure 124/70 118/75 121/73 Pulse Oximetry 100 100 100 04/13/18 23:30 04/13/18 23:39 04/13/18 23:41 Temperature Pulse Rate 60 63 Respiratory Rate 15 15 15 Blood Pressure 102/66 Pulse Oximetry 100 100 04/13/18 23:45 04/14/18 00:00 04/14/18 00:15 Temperature 97.6 F Pulse Rate 59 L 60 60 Respiratory Rate 15 15 15 Blood Pressure 119/70 140/80 130/79 Pulse Oximetry 100 100 100 04/14/18 00:30 04/14/18 00:45 04/14/18 01:00 Temperature Pulse Rate 66 66 65 Respiratory Rate 19 15 15 Blood Pressure 125/76 125/80 Pulse Oximetry 100 100 100 04/14/18 01:15 04/14/18 01:30 04/14/18 01:45 Temperature 97.9 F Pulse Rate 63 64 61 Respiratory Rate 15 15 15 Blood Pressure 132/80 132/86 122/75 Pulse Oximetry 100 100 100 04/14/18 02:00 04/14/18 02:15 04/14/18 02:30 Temperature Pulse Rate 79 76 72 Respiratory Rate 15 15 15 Blood Pressure 191/100 H 163/85 H 149/84 H Pulse Oximetry 100 100 100 04/14/18 02:35 04/14/18 02:45 04/14/18 03:00 Temperature Pulse Rate 77 81 Respiratory Rate 15 15 15 Blood Pressure 152/93 H 144/81 H Pulse Oximetry 98 98 04/14/18 03:15 04/14/18 03:18 04/14/18 03:30 Temperature Pulse Rate 69 67 Respiratory Rate 15 17 15 Blood Pressure 108/67 111/71 Pulse Oximetry 98 98 100 04/14/18 03:45 04/14/18 04:00 04/14/18 04:15 Temperature Pulse Rate 69 73 76 Respiratory Rate 15 15 15 Blood Pressure 119/72 119/66 121/68 Pulse Oximetry 100 100 100 04/14/18 04:30 04/14/18 04:45 04/14/18 05:00 Temperature 98 F Pulse Rate 63 72 71 Respiratory Rate 15 15 15 Blood Pressure 129/69 127/72 130/69 Pulse Oximetry 100 100 100 04/14/18 05:15 04/14/18 05:30 04/14/18 05:45 Temperature Pulse Rate 82 75 75 Respiratory Rate 17 15 15 Blood Pressure 163/80 H 138/78 136/79 Pulse Oximetry 96 100 100 04/14/18 06:00 04/14/18 07:59 04/14/18 08:00 Temperature Pulse Rate 70 63 65 Respiratory Rate 15 15 Blood Pressure 185/98 H Pulse Oximetry 100 100 04/14/18 10:00 04/14/18 10:53 04/14/18 12:00 Temperature Pulse Rate 74 91 H 65 Respiratory Rate 16 Blood Pressure Pulse Oximetry 100 04/14/18 13:00 04/14/18 13:02 04/14/18 13:38 Temperature Pulse Rate 77 78 74 Respiratory Rate 15 15 15 Blood Pressure 146/83 H 156/87 H Pulse Oximetry 100 100 100 04/14/18 13:41 04/14/18 13:44 04/14/18 13:47 Temperature Pulse Rate 65 63 64 Respiratory Rate 15 15 15 Blood Pressure 107/60 105/62 106/66 Pulse Oximetry 100 100 100 04/14/18 13:50 04/14/18 13:53 04/14/18 13:56 Temperature Pulse Rate 65 65 62 Respiratory Rate 15 15 19 Blood Pressure 117/69 105/60 111/67 Pulse Oximetry 100 100 100 04/14/18 13:59 04/14/18 14:00 04/14/18 14:02 Temperature Pulse Rate 69 69 75 Respiratory Rate 25 H 20 22 Blood Pressure 120/70 130/77 Pulse Oximetry 100 100 100 04/14/18 14:05 04/14/18 14:08 04/14/18 14:11 Temperature Pulse Rate 70 67 69 Respiratory Rate 32 H 25 H 25 H Blood Pressure 109/62 106/62 121/70 Pulse Oximetry 100 100 100 04/14/18 14:14 04/14/18 14:17 04/14/18 14:20 Temperature Pulse Rate 64 69 64 Respiratory Rate 25 H 25 H 14 Blood Pressure 98/55 L 117/66 112/67 Pulse Oximetry 100 100 100 04/14/18 14:23 04/14/18 14:26 04/14/18 14:32 Temperature Pulse Rate 76 65 61 Respiratory Rate 14 14 17 Blood Pressure 149/81 H 125/73 105/66 Pulse Oximetry 100 100 100 04/14/18 15:00 04/14/18 15:02 04/14/18 15:05 Temperature Pulse Rate 75 73 Respiratory Rate 15 15 21 Blood Pressure 144/74 H Pulse Oximetry 99 99 04/14/18 15:30 04/14/18 15:32 04/14/18 16:00 Temperature Pulse Rate 72 71 73 Respiratory Rate 15 15 21 Blood Pressure 143/85 H Pulse Oximetry 100 100 100 04/14/18 16:02 04/14/18 16:32 04/14/18 17:00 Temperature Pulse Rate 73 76 69 Respiratory Rate 21 21 21 Blood Pressure 143/78 H 161/79 H Pulse Oximetry 100 100 100 04/14/18 17:02 04/14/18 17:32 04/14/18 18:00 Temperature Pulse Rate 69 83 75 Respiratory Rate 21 21 19 Blood Pressure 135/78 158/74 H Pulse Oximetry 100 100 99 04/14/18 18:02 04/14/18 18:32 04/14/18 19:00 Temperature Pulse Rate 74 76 75 Respiratory Rate 19 21 19 Blood Pressure 126/70 145/77 H Pulse Oximetry 100 100 100 04/14/18 19:02 04/14/18 19:32 04/14/18 19:39 Temperature Pulse Rate 74 65 63 Respiratory Rate 20 20 20 Blood Pressure 140/74 136/66 Pulse Oximetry 100 100 100 04/14/18 20:00 04/14/18 20:02 Temperature Pulse Rate 63 62 Respiratory Rate 15 15 Blood Pressure 114/62 Pulse Oximetry 100 100 Intake & Output 04/14/18 04/14/18 04/15/18 06:59 18:59 06:59 Intake Total 850 / 850 1200 / 1200 1100 / 1100 Output Total 850 / 850 700 / 700 Balance 0 / 0 500 / 500 1100 / 1100 Weight 89.2 kg Intake: IV 450 / 450 1200 / 1200 1100 / 1100 Precedex Inj 1,000 MCG In NS 250 / 250 Inj 240 ML @ 0.2 MCG/KG/HR 4.31 mls/hr IV.CONT TITRATE PRN Rx# :[id number] D5W/1/2 NS Inj 1,000 ML @ 84 1000 / 1000 mls/hr IV.CONT .[id number] GIGI Rx# :[id number] 1/2 Normal Saline Inj 1,000 ML 1000 / 1000 @ 42 mls/hr IV.CONT .[id number] GIGI Rx#:[id number] Zosyn 4.5 GM Premix 4.5 gm In 200 / 200 100 / 100 100 / 100 100 ml @ 200 mls/hr IV.SIG Q6H GIGI Rx#:[id number] KCl 40 mEq Premix Inj 40 meq In 100 / 100 100 ml @ 25 mls/hr IV.SIG Q4H GIGI Rx#:[id number] Free Water Amount 400 / 400 Output: Urine Amount (Catheter) 750 / 750 700 / 700 Indwelling Urethral Catheter 750 / 750 700 / 700 Gastric Drainage 100 / 100 Orogastric Tube 100 / 100 Other: Date of Last Bowel Movement 04/14/18 04/14/18 # Incontinent Bowel Movements 4 Narrative: GENERAL: Awake and alert. No acute distress. Cooperative. On the vent HEAD: Normocephalic. Atraumatic. EYES: Pupils equal round and reactive to light bilaterally. No scleral icterus. ENT: Moist oral mucosa. ET tube in place. NECK: Trachea midline and easily palpable. No JVD seen. CHEST: Decreased breath sounds at the bases. Occasional crackles. CARDIOVASCULAR: Regular rate and rhythm. EXTREMITIES: No cyanosis or edema. Squeezes hands well and moves both feet. SKIN: Warm, dry, nonjaundiced. - Urinary Catheter Management Indwelling Urethral Catheter Cath placed during this visit: yes Reason for continuing: Hourly intake/output Insertion date: 04/10/18 Insertion time: 01:45 Results - Labs CBC & Chem 7: 04/14/18 06:00 04/14/18 06:00 Laboratory Results - last 24 hr 04/14/18 04/14/18 06:00 06:00 WBC 9.7 RBC 3.25 L Hgb 10.1 L Hct 30.6 L MCV 94.2 MCH 31.1 MCHC 33.0 RDW 14.5 Plt Count 272 MPV 9.2 Neut % (Auto) 88.7 H Lymph % (Auto) 4.5 L Gilliam % (Auto) 5.4 Eos % (Auto) 1.1 Baso % (Auto) 0.3 Neut # (Auto) 8.6 H Lymph # (Auto) 0.4 L Gilliam # (Auto) 0.5 Eos # (Auto) 0.1 Baso # (Auto) 0.0 WBC Differential . Differential Comment Auto diff final Sodium 151 H Potassium 2.7 L* Chloride 119 H Carbon Dioxide 24.5 Anion Gap 8 BUN 29 H Creatinine 0.95 Estimated GFR 79 L Random Glucose 92 Calcium 8.0 L D Phosphorus 2.6 Magnesium 2.3 Total Bilirubin 0.5 AST 28 ALT 83 H Alkaline Phosphatase 70 Total Protein 5.9 L Albumin 2.4 L Microbiology 04/11/18 18:15 Blood - Peripheral Aerobic Blood Culture - Preliminary No growth in 3 days 04/11/18 18:15 Blood - Peripheral Anaerobic Blood Culture - Preliminary No growth in 3 days 04/11/18 18:00 Blood - Peripheral Aerobic Blood Culture - Preliminary No growth in 3 days 04/11/18 18:00 Blood - Peripheral Anaerobic Blood Culture - Preliminary No growth in 3 days 04/10/18 17:45 Blood - Peripheral Aerobic Blood Culture - Preliminary No growth in 4 days 04/10/18 17:45 Blood - Peripheral Anaerobic Blood Culture - Preliminary No growth in 4 days 04/10/18 17:50 Blood - Peripheral Aerobic Blood Culture - Preliminary No growth in 4 days 04/10/18 17:50 Blood - Peripheral Anaerobic Blood Culture - Preliminary No growth in 4 days - Imaging Impressions Abdomen X-Ray 04/14/18 00:00 CONCLUSION: Persistent generalized bowel distention. Nasogastric or orogastric tube is looped back on itself and has its tip in the distal esophagus. Abdomen X-Ray 04/14/18 00:01 CONCLUSION: Mild gaseous distention of bowel loops Chest X-Ray 04/14/18 06:00 CONCLUSION: Minimal bibasilar densities, slightly improved. Assessment and Plan - Assessment (1) Respiratory failure Code(s): J96.90 - Respiratory failure, unspecified, unspecified whether with hypoxia or hypercapnia Status: Acute (2) Atelectasis Code(s): J98.11 - Atelectasis Status: Acute (3) Neck pain, chronic Code(s): M54.2 - Cervicalgia; G89.29 - Other chronic pain Status: Chronic (4) Other cervical disc degeneration at C5-C6 level Code(s): M50.322 - Other cervical disc degeneration at C5-C6 level Status: Chronic (5) Protrusion of cervical intervertebral disc Code(s): M50.20 - Other cervical disc displacement, unspecified cervical region Status: Chronic (6) Adult failure to thrive Code(s): R62.7 - Adult failure to thrive Status: Acute (7) Shortness of breath Code(s): R06.02 - Shortness of breath Status: Acute (8) Weakness generalized Code(s): R53.1 - Weakness Status: Acute (9) Acute hyponatremia Code(s): E87.1 - Hypo-osmolality and hyponatremia Status: Acute (10) Ventilator dependent Code(s): Z99.11 - Dependence on respirator [ventilator] status Status: Acute - Plan 1 continue on AC rate of 15 PEEP of 5 and FiO2 40 % 2 wean FiO2 to keep sats greater than 92 3. Chest x-ray in a.m. 4. DuoNeb nebs every 6 hours as needed 5. Precedex for sedation 6. Tracheal lavage and suction as needed 7. Continue Lovenox 40 mg subcu daily 8. Continue antibiotics per ID 9. CBC BMP in a.m. 10. CPAP trial daily up to 8 hours 11. PT evaluation 12. Tracheostomy today.
[2018-04-14 23:14] LABS: Anion Gap 8 meq/L (5-15); Blood Urea Nitrogen 22 mg/dL (7-18); Carbon Dioxide 24.4 meq/L (21.0-32.0); Chloride 120 meq/L (98-107); Glomerular Filtration Rate Greater Than 89 mL/min (>89); Glucose,Random 87 mg/dL (74-106); Magnesium 2.4 mg/dL (1.5-2.5); Phosphorus 2.4 mg/dL (2.5-4.9); Potassium 3.1 meq/L (3.5-5.1); Sodium 152 meq/L (136-145)
[2018-04-14] MEDS: Potassium Chlor 40 mEq Premix 40 MEQ/100 ML PIGGYBACK IV.SIG PRN (23:21)
--- NOTE | 2018-04-15 00:16 | XR ---
EXAM DATE: 04/15/2018 12:01 AM EST AGE/SEX: 67 years / Male INDICATIONS: Dobhoff placement. CLINICAL DATA: This is the patient's initial encounter. Patient reports that signs and symptoms have been present for 1 day and indicates a pain score of Nonresponsive. MEDICAL/SURGICAL HISTORY: . Thyroid disease. . Microdiscectomy. Left inguinal hernia repair. COMPARISON: [facility] [place], ABDOMEN SINGLE VIEW, 04/14/2018. [facility] [place], CHEST 1V SINGLE AP, 04/15/2018. [facility] [place], CT ABD OMEN & PELVIS W/O CONTRAST, 04/11/2018. . FINDINGS: Air seen within distended segments of small and large bowel. This pattern is nonspecific. There is a tube looped in the stomach. This could represent the Dobbhoff tube. It extends into the stomach and l oops back and extends back into the esophagus. This increased density at the left medial base with ai r bronchograms seen. Free air is not clearly seen within the peritoneal cavity. CONCLUSION: Dobbhoff tube looped in the stomach and directed back into the distal esophagus. Left lower lobe consolidation. Nonspecific bowel gas pattern. Electronically signed by: Miguel Crenshaw MD Board Certified Radiologist 04/15/2018 12:14 AM EST
[2018-04-15] MEDS: Artificial Tears Opth Drops 15 ML Bottle EACH EYE SCH ×3 (00:26→16:53)
--- NOTE | 2018-04-15 01:08 | XR ---
EXAM DATE: 04/15/2018 1:02 AM EST AGE/SEX: 67 years / Male INDICATIONS: Dobhoff placement. CLINICAL DATA: This is the patient's sequela encounter. Patient reports that signs and symptoms have been present for 1 day and indicates a pain score of Nonresponsive. MEDICAL/SURGICAL HISTORY: . Thyroid disease. . Microdiscectomy. Left inguinal hernia repair. COMPARISON: [facility] [place], ABDOMEN SINGLE VIEW, 04/14/2018. . FINDINGS: The Dobbhoff tube is seen looped in the stomach and directed back into the esophagus. Air seen within small and large bowel. This is nonspecific. Free air is not seen. CONCLUSION: Dobbhoff tube looped in the stomach. Electronically signed by: Miguel Crenshaw MD Board Certified Radiologist 04/15/2018 1:06 AM EST
[2018-04-15] MEDS: Piperacil/Tazo 4.5 GM Premix 4.5 GM/100 ML BAG IV.SIG SCH ×4 (02:31→21:00)
[2018-04-15] MEDS: Potassium Chlor 40 mEq Premix 40 MEQ/100 ML PIGGYBACK IV.SIG PRN (02:32)
[2018-04-15] MEDS: Labetalol HCl Inj 20 MG/4 ML Vial IV.PUSH PRN (03:37)
[2018-04-15] MEDS: Oral Hygiene Kit OROPHARYNG SCH ×3 (03:38→16:53)
--- NOTE | 2018-04-15 04:55 | XR ---
EXAM DATE: 04/15/2018 4:41 AM EST AGE/SEX: 67 years / Male INDICATIONS: Respiratory failure CLINICAL DATA: This is the patient's subsequent encounter. Patient reports that signs and symptoms h ave been present for 2 weeks and indicates a pain score of Nonresponsive. MEDICAL/SURGICAL HISTORY: . Thyroid disease. . Microdiscectomy. Left inguinal hernia repair. COMPARISON: [facility], CHEST 1V SINGLE AP, 04/14/2018. . FINDINGS: The tracheostomy tube and right internal central line are well placed. There is a Dobbhoff tube which is directed into the stomach, loops back on itself, enters the esophagus and has its tip in the uppe r esophagus at the level the thoracic inlet. The heart size is normal. There is patchy density seen a t the bases bilaterally. CONCLUSION: Dobbhoff tube looped in the stomach with the tip redirected into the esophagus and sitting at the tho racic inlet level. Mild bibasilar areas of consolidation or atelectasis. Electronically signed by: Miguel Crenshaw MD Board Certified Radiologist 04/15/2018 4:53 AM EST
[2018-04-15] MEDS: Levothyroxine 125 MCG Tablet PO SCH (05:22)
[2018-04-15 06:06] LABS: Hematocrit 30.6 % (39.0-51.0); Hemoglobin 10.1 gm/dL (13.0-17.0); Mean Corpuscular HGB Conc 33.1 % (32.0-36.0); Mean Corpuscular Hemoglobin 30.7 pg (27.0-34.0); Mean Corpuscular Volume 92.7 fL (80.0-100.0); Mean Platelet Volume 9.2 fL (7.0-11.0); Platelet Count 281 th/mm3 (150-450); Red Cell Distribution Width 14.7 % (11.6-17.2); White Blood Count 7.9 th/mm3 (4.0-11.0)
--- NOTE | 2018-04-15 06:29 | XR ---
EXAM DATE: 04/15/2018 5:35 AM EST AGE/SEX: 67 years / Male INDICATIONS: Dobhoff placement. CLINICAL DATA: This is the patient's sequela encounter. Patient reports that signs and symptoms have been present for 1 day and indicates a pain score of Nonresponsive. MEDICAL/SURGICAL HISTORY: . Thyroid disease. . Microdiscectomy. Left inguinal hernia repair. COMPARISON: [facility] [place], ABDOMEN SINGLE VIEW, 04/15/2018. . FINDINGS: The Dobbhoff tube tip is now in the stomach. Air seen within distended portions of small and large [place] wel. This is nonspecific. Free air is not seen. There continues to be atelectasis or consolidation at the left lung base. CONCLUSION: Dobbhoff tube tip now seen in the stomach. Electronically signed by: Miguel Crenshaw MD Board Certified Radiologist 04/15/2018 6:28 AM EST
[2018-04-15] MEDS: Dexmedetomidine Inj 1,000 MCG in Sodium Chlor 0.9% Inj 240 ML IV.CONT PRN ×2 (08:52→21:03)
[2018-04-15] MEDS: Chlorhexidine 0.12% Oral Kit 15 ML UDC OROPHARYNG SCH ×2 (08:54→21:00)
[2018-04-15] MEDS: Enoxaparin Inj 40 MG/0.4 ML Syringe SQ SCH (09:10)
[2018-04-15] MEDS: Senna/Docusate Sodium 8.6/50 MG Tablet PO SCH ×2 (09:24→21:01)
[2018-04-15] MEDS: Polyethylene Glycol 3350 17 GM Packet PO SCH ×2 (09:24→21:00)
[2018-04-15] MEDS: Potassium Chloride Liq 20 MEQ/15 ML UDC PO PRN ×4 (13:35→21:37)
[2018-04-15] MEDS: Dextrose 5%/NaCl 0.45% Inj 1,000 ML IV.CONT SCH ×2 (14:31→20:59)
[2018-04-15 16:08] LABS: Calcium 7.7 mg/dL (8.5-10.1); Carbon Dioxide 21.6 meq/L (21.0-32.0); Magnesium 2.3 mg/dL (1.5-2.5); Phosphorus 2.1 mg/dL (2.5-4.9); Potassium 3.4 meq/L (3.5-5.1)
--- NOTE | 2018-04-15 16:45 | P.PNCC ---
Subjective Subjective Remarks/Hospital Course: This 67-year-old came into the emergency room today with his and daughter. On 02/13/2018, he had a microdiscectomy, C5-C6, by Dr. Schwarz. He was discharged home the next day. A few days after, he had not been feeling well, short of breath, disoriented, generally weak, symptoms were getting worse, disorientation was worse. He was referred to emergency department by his primary care physician for an evaluation. In the ED he was found to be in severe hypercarbic respiratory acidosis and was intubated by ED attending. 04/01: CO2 retention corrected. Remains mildly alkalotic due to chronic CO2 elevation. PH normalized. Still requiring vasopressor therapy with norepinephrine. Broad-spectrum antibiotic coverage started. Lumbar puncture performed with opening pressure 20 and crystal-clear fluid, sent for cell counts , chemistries and culture. HSV included. One extra tube sent for future studies if necessary. Ammonia level 71 - repeat daily. 04/02: CSF appears benign. Repeat ammonia level normal. Gamma GT normal. Cardiac echo estimated of 45% ejection fraction requires a little additional investigation -patient has been chronically short of breath for several weeks now. Leukocytosis and left shift persists. Gram-positive cocci and white cells seen in sputum. This man clearly became acutely and critically ill - exact cause still eludes us. 04/03: Leukocytosis improved. Remains quite rigid when stimulated. Continues to move 4 limbs with purpose and follows commands with 4 limbs. Sputum demonstrates white blood cells and gram-negative rods. 04/04: Improved color and perfusion. Extubated yesterday afternoon but failed after about 45 minutes -developed somnolence then obtundation, appeared to be having difficulty taking a breath, concern for vocal cord dysfunction. On reintubation the cord edges were irregular but otherwise normal in appearance. I could not assess cord function as patient was not alert enough to cooperate with commands. We will definitely pursue possibilities of vocal cord dysfunction and or phrenic nerve paralysis once we get him extubated. Ideally, a sniff test under fluoroscopy would demonstrate any paradoxical diaphragm motion. 04/05: Afebrile. Neurologically appears intact. Daughter concerned about "appears distant" however on 40 mcg/kg/min of propofol and 250 mcg an hour fentanyl. No bowel movement since admission. Tube feeding only at 20 cc an hour. 04/06: Afebrile. Neurologically intact. Following commands.. Positive BM. Labile blood pressures yesterday. Replace potassium currently. 04/07: Patient writing notes today. Chest x-ray clear. Elevated left diaphragm , probably dysfunctional. Continued encephalopathy and generalized weakness chris very concerning. We will try Aminophyllin today to see if we can get some diaphragm and central nervous system stimulation. 04/08: Started on theophylline yesterday. Check level in a.m. Will attempt PSV trial today. Noted pulmonology requests possible T-bar with ABG when appropriate. Afebrile. 04/09: T-max 100. theophylline currently 3.7. Currently on CPAP trials. 02/18. 45%. Check ABG at 10 today. Desaturated yesterday currently back at 40%. 04/10: Resting in bed. Episode of nausea overnight. Negative workup. Evaluated positive BM 04/08. Patient more agitated overnight. Propofol discontinued due to hypotension. Currently on fentanyl drip. Theophylline. Creatinine currently 2.0 we will consult nephrology. Discontinue lisinopril. Receiving one half normal saline bolus currently. 04/11: T-max 101.1. Increasing O2 records.Increasing white blood cell count. For the cuff is overinflated to palpate the vocal cords. Leak by examination. Will change ET tube in place central line today. Empirically start antibiotics for aspiration. Not tolerating tube feeds and currently to low inner wall suction. Check KUB after ET tube exchange and central line placement. Restart metoclopramide. Positive BMs. 04/12: Yesterday, CT thorax revealed collapsed left lower lung. Status post bronchoscopy with reinflation of lung. Better saturations today. Continues with small and large bowel colonic distention. Right: 11 cm. GI is following. Might need decompression. Current orogastric tube to low intermittent wall suction. SUBJECTIVE: 04/13: Improved small and large bowel colonic distention. Down to 8 cm long family discussion. We will perform percutaneous tracheostomy and PEG tube as well. Request second neurological opinion. In better spirits today. 04/14: no changes. awakens and follows commands. plan for trach today. 22: s/p trach yesterday. awake and alert. calm. looks more comfortable than yesterday. did not tolerate PRVC today, but tolerates PSV with high support (24/ 5/35%). Objective Vital Signs / I&O: Vital Signs 04/14/18 17:00 04/14/18 17:02 04/14/18 17:32 Temperature Pulse Rate 69 69 83 Respiratory Rate 21 21 21 Blood Pressure 135/78 158/74 H Pulse Oximetry 100 100 100 04/14/18 18:00 04/14/18 18:02 04/14/18 18:32 Temperature Pulse Rate 75 74 76 Respiratory Rate 19 19 21 Blood Pressure 126/70 145/77 H Pulse Oximetry 99 100 100 04/14/18 19:00 04/14/18 19:02 04/14/18 19:32 Temperature Pulse Rate 75 74 65 Respiratory Rate 19 20 20 Blood Pressure 140/74 136/66 Pulse Oximetry 100 100 100 04/14/18 19:39 04/14/18 20:00 04/14/18 20:02 Temperature Pulse Rate 63 66 62 Respiratory Rate 20 15 15 Blood Pressure 114/62 Pulse Oximetry 100 100 100 04/14/18 20:32 04/14/18 21:00 04/14/18 21:02 Temperature Pulse Rate 77 73 72 Respiratory Rate 15 15 15 Blood Pressure 154/74 H 133/71 Pulse Oximetry 100 100 100 04/14/18 21:32 04/14/18 22:00 04/14/18 22:02 Temperature Pulse Rate 72 71 73 Respiratory Rate 15 15 15 Blood Pressure 134/72 143/75 H Pulse Oximetry 100 100 100 04/14/18 22:32 04/14/18 23:00 04/14/18 23:05 Temperature Pulse Rate 68 77 78 Respiratory Rate 15 15 15 Blood Pressure 134/70 149/74 H Pulse Oximetry 99 99 04/14/18 23:32 04/14/18 23:59 04/15/18 00:00 Temperature 37.1 C Pulse Rate 68 66 67 Respiratory Rate 15 15 15 Blood Pressure 129/73 Pulse Oximetry 100 99 99 04/15/18 00:02 04/15/18 00:32 04/15/18 01:00 Temperature Pulse Rate 66 69 69 Respiratory Rate 15 15 15 Blood Pressure 120/69 134/73 Pulse Oximetry 99 100 98 04/15/18 01:02 04/15/18 01:32 04/15/18 02:00 Temperature Pulse Rate 66 62 61 Respiratory Rate 15 15 15 Blood Pressure 130/75 119/69 Pulse Oximetry 98 99 99 04/15/18 02:02 04/15/18 02:32 04/15/18 03:00 Temperature Pulse Rate 61 66 70 Respiratory Rate 15 15 15 Blood Pressure 115/66 131/73 Pulse Oximetry 99 99 98 04/15/18 03:02 04/15/18 03:05 04/15/18 03:32 Temperature Pulse Rate 82 77 87 Respiratory Rate 18 15 15 Blood Pressure 147/83 H 186/93 H Pulse Oximetry 98 95 96 04/15/18 03:35 04/15/18 04:00 04/15/18 04:02 Temperature 37.1 C Pulse Rate 88 73 72 Respiratory Rate 17 15 15 Blood Pressure 172/91 H 162/83 H Pulse Oximetry 96 96 91 L 04/15/18 04:32 04/15/18 05:00 04/15/18 05:02 Temperature Pulse Rate 72 74 75 Respiratory Rate 16 22 21 Blood Pressure 165/92 H 172/85 H Pulse Oximetry 96 97 96 04/15/18 05:32 04/15/18 06:00 04/15/18 06:02 Temperature Pulse Rate 67 62 66 Respiratory Rate 15 20 22 Blood Pressure 136/72 125/72 Pulse Oximetry 96 96 94 L 04/15/18 06:32 04/15/18 07:00 04/15/18 07:39 Temperature Pulse Rate 59 L 61 56 L Respiratory Rate 15 15 15 Blood Pressure 102/63 119/69 Pulse Oximetry 94 L 94 L 95 04/15/18 08:00 04/15/18 09:00 04/15/18 10:00 Temperature 36.8 C Pulse Rate 70 93 H 87 Respiratory Rate 21 18 17 Blood Pressure 175/83 H 172/83 H 168/108 H Pulse Oximetry 98 92 L 94 L 04/15/18 10:55 04/15/18 11:00 04/15/18 12:00 Temperature 36.7 C Pulse Rate 92 H 82 Respiratory Rate 16 15 15 Blood Pressure 153/83 H 142/71 H Pulse Oximetry 92 L 92 L 92 L 04/15/18 12:32 04/15/18 13:00 04/15/18 14:00 Temperature Pulse Rate 71 74 71 Respiratory Rate 16 15 15 Blood Pressure 116/75 131/70 Pulse Oximetry 96 99 95 Intake & Output 04/14/18 04/15/18 04/15/18 18:59 06:59 18:59 Intake Total 1200 / 1200 1950 / 1950 1400 / 1400 Output Total 700 / 700 750 / 750 Balance 500 / 500 1200 / 1200 1400 / 1400 Weight 89.3 kg Intake: IV 1200 / 1200 1750 / 1750 1200 / 1200 Precedex Inj 1,000 MCG In NS 250 / 250 Inj 240 ML @ 0.2 MCG/KG/HR 4.31 mls/hr IV.CONT TITRATE PRN Rx# :[id number] D5W/1/2 NS Inj 1,000 ML @ 84 1000 / 1000 1000 / 1000 mls/hr IV.CONT .[id number] GIGI Rx# :[id number] 1/2 Normal Saline Inj 1,000 ML 1000 / 1000 @ 42 mls/hr IV.CONT .[id number] GIGI Rx#:[id number] Zosyn 4.5 GM Premix 4.5 gm In 100 / 100 300 / 300 200 / 200 100 ml @ 200 mls/hr IV.SIG Q6H GIGI Rx#:[id number] KCl 40 mEq Premix Inj 40 meq In 100 / 100 200 / 200 100 ml @ 25 mls/hr IV.SIG Q2H PRN Rx#:[id number] Free Water Amount 200 / 200 200 / 200 Output: Urine Amount (Catheter) 700 / 700 750 / 750 Indwelling Urethral Catheter 700 / 700 750 / 750 Other: Date of Last Bowel Movement 04/14/18 04/15/18 04/15/18 Result Diagrams: 04/15/18 05:30 04/15/18 12:28 Objective Remarks: GENERAL: 67-year-old male currently orotracheally intubated SKIN: Warm and dry. HEAD: Atraumatic. Normocephalic. EYES: Pupils equal and round. No scleral icterus. No injection or drainage. ENT: No nasal bleeding or discharge. Mucous membranes pink and moist. NECK: Trachea midline. No JVD. Right IJ CVL is clean dry and intact CARDIOVASCULAR: RRR sinus. RESPIRATORY: Raises shoulders to take spontaneous breaths. equal chest rise. GASTROINTESTINAL: Abdomen slightly protuberant/non-tender, slightly firm and tympanic. MUSCULOSKELETAL: Extremities without clubbing, cyanosis, trace to 1+ edema. No obvious deformities. NEUROLOGICAL: Follows commands and moves extremities to command. Assessment and Plan - Assessment and Plan Plan: Neuro/Psych: History of anterior C5/6 microdiscectomy with fusion Currently on fentanyl drip Restarted dexmedetomidine drip. Goal of RASS 0 Daily sedation vacation Evaluate by neurosurgery/Dr. Viera. No intervention planned at this time CT brain/MRI C-spine negative EEG revealed no epileptic activity Neurology following. Recommend myasthenia gravis lab. Negative to date. Left diaphragm remains elevated, suspect not functioning well. Requesting second opinion for neurological status CV: Systolic heart failure unknown if acute or chronic Essential hypertension Hyperlipidemia Ejection fraction 45% on admission. Appreciate cardiac evaluation by Dr. Escobedo. No plans at this time Holding amlodipine 10 mg daily, and metoprolol tartrate 12.5 mg twice daily for hypertension Holding clonidine 0.1 twice daily and lisinopril 5 mg daily in light of hypotension/lisinopril for acute kidney injury Continue pravastatin 40 mg daily for dyslipidemia. Continue aspirin 81 mg by mouth daily. Resp: Acute hypercapnic respiratory failure Klebsiella oxycodone pneumonia PRVC ventilation Ventilator bundle Head of bed at 30 degrees Albuterol/ipratropium aerosols every 4 hours with albuterol aerosols every 2 hours as needed dyspnea Will need sniff test to assess diaphragmatic function once extubated We will consult ENT to assess vocal cords when appropriate Appreciate pulmonary input. Spontaneous breathing trial daily. 02/08 discontinue theophylline 400 mg daily acute delirium. Noted level. 04/09 3.7 Status post bronchoscopy 04/11. Thick white purulent secretions left lower lobe suction to clear. General surgery consult for percutaneous tracheostomy 04/14: Dr. Conde GI: Gastroesophageal reflux disease Transaminitis Hypoalbuminemia Ileus Tube feeding/Nepro at 60 cc an hour days. NG tube to low intermittent wall suction At home on pantoprazole 40 mg daily. Currently on lansoprazole 30 mg daily Docusate sodium/senna 1 tablet twice daily for bowel regimen. On lactulose 30 cc twice daily. Add polyethylene glycol 17 g twice daily and methylnaltrexone x1 today. GI consultation. : no indication for lehman catheter at this time. Endo: Hypothyroidism TSH 1.28. Continue levothyroxine 125 mg by mouth daily Sliding scale insulin if indicated to maintain euglycemia Renal: Kidney injury - acute Avoid all nephrotoxic medications Creatinine currently 1.1 Neurology consultation for evaluation this is contrast-induced nephropathy from scans 03/31. Avoid nephrotoxic medication. Lisinopril discontinued. Accurate I's and O's Monitor urine output Heme: Normocytic anemia Leukocytosis Monitor CBC daily. Follow trends per No indication for transfusion of blood proximal to this time. ID: Klebsiella oxycodone pneumonia sputum 04/01 Currently repleted therapy with ceftriaxone per infectious disease. Lumbar puncture negative. HSV negative No growth to date on other cultures aside from sputum Recheck blood cultures, sputum 04/02 pending Started on piperacillin/tazobactam 04/11 due to aspiration, anticipated stop date 04/19. FEN: Hypernatremia Hypopotassemia Free water 200 cc every 6 hours. Replace electrolytes as clinically indicated per ICU electrolyte protocol. Recheck electrolytes in a.m. half normal saline at 42 cc hypernatremia slowly improving. MSK: PT evaluate and treat Access -Utilize peripheral IV. Central line if indicated Prophylaxis -GI -lansoprazole -DVT -SCD/enoxaparin Overall impression: Remains quite weak and debilitated. We need to continue to work on nutrition and gentle weaning. OOB and working with PT daily.
[2018-04-15] MEDS: Potassium Phosphate 500 MG Soluble Tablet PO PRN (16:52)
--- NOTE | 2018-04-15 18:21 | P.PNNEU ---
Subjective Subjective Comments: chart reviewed and pt examined. No new c/o. He states he did not notice weakness of extremities or sensory sx. He thought he might have had transient double vision initially , but that was when pCO2 was high. Active Medications: Active Medications Acetaminophen (Tylenol) 650 mg PO Q6H PRN PRN Reason: Temp > 100.4 Last Admin: 04/14/18 02:12 Dose: 650 mg Albuterol (Duoneb Neb (Je)) 1 ampul NEB Q4HR NEB [facility] Last Admin: 04/15/18 17:17 Dose: 1 ampul Albuterol (Albuterol Neb (Prn)) 2.5 mg NEB Q2HR NEB PRN PRN Reason: DYSPNEA Artificial Tears (Tears Naturale Opth Drops) 1 drop EACH EYE Q8H [facility] Last Admin: 04/15/18 16:53 Dose: 1 drop Aspirin (Aspirin Chew) 81 mg PO DAILY [facility] Last Admin: 04/15/18 09:23 Dose: 81 mg Chlorhexidine Gluconate (Peridex 0.12% Oral Kit) 15 ml OROPHARYNG BID@0800, 2000 [facility] Last Admin: 04/15/18 08:54 Dose: 15 ml Enoxaparin Sodium (Lovenox Inj) 40 mg SQ DAILY [facility] Last Admin: 04/15/18 09:10 Dose: 40 mg Dexmedetomidine HCl 1,000 mcg/ (Sodium Chloride) 250 mls @ 4.31 mls/hr IV.CONT TITRATE PRN; Protocol PRN Reason: Per Protocol Last Titration: 04/15/18 09:50 Dose: 1 mcg/kg/hr, 21.57 mls/hr Dextrose/Sodium Chloride (D5w/1/2 Ns Inj) 1,000 mls @ 84 mls/hr IV.CONT .[id number] [facility] Last Admin: 04/15/18 14:31 Dose: 84 mls/hr Magnesium Sulfate 4 gm/ Sodium (Chloride) 100 mls @ 50 mls/hr IV.SIG UNSCH PRN PRN Reason: For Magnesium 0.9 - 1.1 mg/dL Potassium Chloride (Kcl 40 Meq Premix Inj) 40 meq in 100 mls @ 25 mls/hr IV.SIG Q2H PRN PRN Reason: For Potassium 2.8 - 3.2 mEq/L Last Infusion: 04/15/18 06:37 Dose: Infused Potassium Chloride (Kcl 20 Meq Premix Inj) 20 meq in 100 mls @ 50 mls/hr IV.SIG Q2H PRN PRN Reason: For Potassium 3.3 - 3.5 mEq/L Potassium Chloride (Kcl 40 Meq Premix Inj) 40 meq in 100 mls @ 25 mls/hr IV.SIG UNSCH PRN PRN Reason: For Potassium 3.3 - 3.5 mEq/L Last Infusion: 04/12/18 10:35 Dose: Infused Potassium Chloride (Kcl 20 Meq Premix Inj) 20 meq in 100 mls @ 50 mls/hr IV.SIG Q2H PRN PRN Reason: For Potassium 2.8 - 3.2 mEq/L Potassium Phosphate 30 mmol/ (Sodium Chloride) 260 mls @ 42 mls/hr IV.SIG UNSCH PRN PRN Reason: SEE LABEL COMMENTS Magnesium Sulfate 2 gm/ Sodium (Chloride) 100 mls @ 50 mls/hr IV.SIG UNSCH PRN PRN Reason: For Magnesium 1.2 - 1.6 mg/dL Sodium Phosphate 30 mmol/ (Sodium Chloride) 260 mls @ 42 mls/hr IV.SIG UNSCH PRN PRN Reason: For Phosphorus < 2.5 mg/dL Piperacillin/Tazobactam/Dextrose (Zosyn 4.5 Gm Premix) 4.5 gm in 100 mls @ 200 mls/hr IV.SIG Q6H [facility] Stop: 04/19/18 23:59 Last Infusion: 04/15/18 13:58 Dose: Infused Labetalol HCl (Trandate Inj) 20 mg IV.PUSH Q1H PRN PRN Reason: SBP > 160 Last Admin: 04/15/18 03:37 Dose: 20 mg Lactulose (Lactulose Liq) 30 ml PO TID [facility] Last Admin: 04/15/18 17:22 Dose: Not Given Lansoprazole (Prevacid Solutab) 30 mg NG/OG DAILY [facility] Last Admin: 04/15/18 09:23 Dose: 30 mg Levothyroxine Sodium (Synthroid) 125 mcg PO DAILY@0600 [facility] Last Admin: 04/15/18 05:22 Dose: Not Given Magnesium Oxide (Mag-Ox) 800 mg PO UNSCH PRN PRN Reason: For Magnesium 1.2 - 1.6 mg/dL Metoclopramide HCl (Reglan Inj) 5 mg IV.PUSH Q8HR [facility]; Protocol Last Admin: 04/15/18 13:28 Dose: Not Given Miscellaneous Medication () 1 each OROPHARYNG 0000,0400,1200,1600 [facility] Last Admin: 04/15/18 16:53 Dose: 1 each Ondansetron HCl (Zofran Inj) 4 mg IV.PUSH Q4H PRN PRN Reason: NAUSEA OR VOMITING Polyethylene Glycol (Miralax) 17 gm PO BID [facility] Last Admin: 04/15/18 09:24 Dose: Not Given Potassium Chloride (Kcl Liq) 40 meq PO UNSCH PRN PRN Reason: Potassium level 3.3-3.5 mEq/L Last Admin: 04/15/18 13:35 Dose: 40 meq Potassium Chloride (Kcl Liq) 40 meq PO UNSCH PRN PRN Reason: Potassium level 3.3-3.5 mEq/L Potassium Phosphate (K-Phos Original) 2,000 mg PO Q4H PRN PRN Reason: Phosphorus Less Than 2.5 mg/dL Last Admin: 04/15/18 16:52 Dose: 2,000 mg Potassium Phosphate (K-Phos Original) 2,000 mg PO UNSCH PRN PRN Reason: SEE LABEL COMMENTS Pravastatin Sodium (Pravachol) 40 mg PO HS [facility] Last Admin: 04/14/18 20:52 Dose: Not Given Senna/Docusate Sodium (Celine-Colace) 1 tab PO BID [facility] Last Admin: 04/15/18 09:24 Dose: Not Given Sodium Chloride (Ns Flush) 2 ml IV.FLUSH BID [facility] Last Admin: 04/15/18 09:11 Dose: 2 ml Sodium Chloride (Ns Flush) 2 ml IV.FLUSH PRN PRN PRN Reason: FLUSH AFTER USING IV ACCESS Sodium Chloride (Ns Flush) 0 ml IV.FLUSH DAILY [facility] Last Admin: 04/15/18 09:24 Dose: Not Given Sterile Water (Free Water) 200 ml NG/OG Q6HR [facility] Last Admin: 04/15/18 18:01 Dose: 200 ml Allergies/Adverse Reactions: Allergies Allergy/AdvReac Type Severity Reaction Status Date / Time Sulfa (Sulfonamide Allergy Severe Nausea Verified 02/15/18 05:02 Antibiotics) Physical Exam Vital signs: Vital Signs 04/14/18 18:32 04/14/18 19:00 04/14/18 19:02 Temperature Pulse Rate 76 75 74 Respiratory Rate 21 19 20 Blood Pressure 145/77 H 140/74 Pulse Oximetry 100 100 100 04/14/18 19:32 04/14/18 19:39 04/14/18 20:00 Temperature Pulse Rate 65 63 66 Respiratory Rate 20 20 15 Blood Pressure 136/66 Pulse Oximetry 100 100 100 04/14/18 20:02 04/14/18 20:32 04/14/18 21:00 Temperature Pulse Rate 62 77 73 Respiratory Rate 15 15 15 Blood Pressure 114/62 154/74 H Pulse Oximetry 100 100 100 04/14/18 21:02 04/14/18 21:32 04/14/18 22:00 Temperature Pulse Rate 72 72 71 Respiratory Rate 15 15 15 Blood Pressure 133/71 134/72 Pulse Oximetry 100 100 100 04/14/18 22:02 04/14/18 22:32 04/14/18 23:00 Temperature Pulse Rate 73 68 77 Respiratory Rate 15 15 15 Blood Pressure 143/75 H 134/70 Pulse Oximetry 100 99 99 04/14/18 23:05 04/14/18 23:32 04/14/18 23:59 Temperature Pulse Rate 78 68 66 Respiratory Rate 15 15 15 Blood Pressure 149/74 H 129/73 Pulse Oximetry 100 99 04/15/18 00:00 04/15/18 00:02 04/15/18 00:32 Temperature 98.8 F Pulse Rate 67 66 69 Respiratory Rate 15 15 15 Blood Pressure 120/69 134/73 Pulse Oximetry 99 99 100 04/15/18 01:00 04/15/18 01:02 04/15/18 01:32 Temperature Pulse Rate 69 66 62 Respiratory Rate 15 15 15 Blood Pressure 130/75 119/69 Pulse Oximetry 98 98 99 04/15/18 02:00 04/15/18 02:02 04/15/18 02:32 Temperature Pulse Rate 61 61 66 Respiratory Rate 15 15 15 Blood Pressure 115/66 131/73 Pulse Oximetry 99 99 99 04/15/18 03:00 04/15/18 03:02 04/15/18 03:05 Temperature Pulse Rate 70 82 77 Respiratory Rate 15 18 15 Blood Pressure 147/83 H Pulse Oximetry 98 98 95 04/15/18 03:32 04/15/18 03:35 04/15/18 04:00 Temperature 98.8 F Pulse Rate 87 88 73 Respiratory Rate 15 17 15 Blood Pressure 186/93 H 172/91 H Pulse Oximetry 96 96 96 04/15/18 04:02 04/15/18 04:32 04/15/18 05:00 Temperature Pulse Rate 72 72 74 Respiratory Rate 15 16 22 Blood Pressure 162/83 H 165/92 H Pulse Oximetry 91 L 96 97 04/15/18 05:02 04/15/18 05:32 04/15/18 06:00 Temperature Pulse Rate 75 67 62 Respiratory Rate 21 15 20 Blood Pressure 172/85 H 136/72 Pulse Oximetry 96 96 96 04/15/18 06:02 04/15/18 06:32 04/15/18 07:00 Temperature Pulse Rate 66 59 L 61 Respiratory Rate 22 15 15 Blood Pressure 125/72 102/63 119/69 Pulse Oximetry 94 L 94 L 94 L 04/15/18 07:39 04/15/18 08:00 04/15/18 09:00 Temperature 98.2 F Pulse Rate 56 L 70 93 H Respiratory Rate 15 21 18 Blood Pressure 175/83 H 172/83 H Pulse Oximetry 95 98 92 L 04/15/18 10:00 04/15/18 10:55 04/15/18 11:00 Temperature Pulse Rate 87 92 H Respiratory Rate 17 16 15 Blood Pressure 168/108 H 153/83 H Pulse Oximetry 94 L 92 L 92 L 04/15/18 12:00 04/15/18 12:32 04/15/18 13:00 Temperature 98.1 F Pulse Rate 82 71 74 Respiratory Rate 15 16 15 Blood Pressure 142/71 H 116/75 Pulse Oximetry 92 L 96 99 04/15/18 14:00 04/15/18 15:00 04/15/18 16:00 Temperature 98.6 F Pulse Rate 71 61 67 Respiratory Rate 15 15 15 Blood Pressure 131/70 104/61 120/66 Pulse Oximetry 95 97 97 04/15/18 17:00 04/15/18 17:17 Temperature Pulse Rate 80 65 Respiratory Rate 17 15 Blood Pressure 142/77 H Pulse Oximetry 98 98 Intake & Output 04/14/18 04/15/18 04/15/18 18:59 06:59 18:59 Intake Total 1200 / 1200 1950 / 1950 1600 / 1600 Output Total 700 / 700 750 / 750 Balance 500 / 500 1200 / 1200 1600 / 1600 Weight 89.3 kg Intake: IV 1200 / 1200 1750 / 1750 1200 / 1200 Precedex Inj 1,000 MCG In NS 250 / 250 Inj 240 ML @ 0.2 MCG/KG/HR 4.31 mls/hr IV.CONT TITRATE PRN Rx# :[id number] D5W//2 NS Inj 1,000 ML @ 84 1000 / 1000 1000 / 1000 mls/hr IV.CONT .[id number] JE Rx# :[id number] 1/2 Normal Saline Inj 1,000 ML 1000 / 1000 @ 42 mls/hr IV.CONT .[id number] JE Rx#:[id number] Zosyn 4.5 GM Premix 4.5 gm In 100 / 100 300 / 300 200 / 200 100 ml @ 200 mls/hr IV.SIG Q6H JE Rx#:[id number] KCl 40 mEq Premix Inj 40 meq In 100 / 100 200 / 200 100 ml @ 25 mls/hr IV.SIG Q2H PRN Rx#:[id number] Free Water Amount 200 / 200 400 / 400 Output: Urine Amount (Catheter) 700 / 700 750 / 750 Indwelling Urethral Catheter 700 / 700 750 / 750 Other: Date of Last Bowel Movement 04/14/18 04/15/18 04/15/18 - Routine Neurological Exam alert, follow commands CN--PERRL. extraoccular movement normal. No ptosis MOTOR 5/5 BUE and BLE DTR 2+ symmetric Bilateral LE - Urinary Catheter Management Indwelling Urethral Catheter Cath placed during this visit: yes, but has since been removed by the nurse Reason for continuing: Continue criteria not met Insertion date: 04/10/18 Insertion time: 01:45 Removal date: 04/15/18 Removal time: 17:05 Objective Laboratory Results - last 24 hr 04/14/18 04/15/18 04/15/18 22:17 05:30 12:28 WBC 7.9 RBC 3.30 L Hgb 10.1 L Hct 30.6 L MCV 92.7 MCH 30.7 MCHC 33.1 RDW 14.7 Plt Count 281 MPV 9.2 Sodium 152 H Potassium 3.1 L 3.3 L Chloride 120 H Carbon Dioxide 24.4 Anion Gap 8 BUN 22 H Creatinine 0.80 Estimated GFR Greater than 89 Random Glucose 87 Calcium 8.0 L Phosphorus 2.4 L Magnesium 2.4 04/15/18 12:28 WBC RBC Hgb Hct MCV MCH MCHC RDW Plt Count MPV Sodium 150 H Potassium 3.4 L Chloride 120 H Carbon Dioxide 21.6 Anion Gap 8 BUN 18 Creatinine 0.86 Estimated GFR 89 Random Glucose 147 H Calcium 7.7 L Phosphorus 2.1 L Magnesium 2.3 Microbiology 04/11/18 18:15 Aerobic Blood Culture - Preliminary Blood - Peripheral No growth in 4 days Anaerobic Blood Culture - Preliminary No growth in 4 days 04/11/18 18:00 Aerobic Blood Culture - Preliminary Blood - Peripheral No growth in 4 days Anaerobic Blood Culture - Preliminary No growth in 4 days 04/10/18 17:45 Aerobic Blood Culture - Final Blood - Peripheral No growth in 5 days Anaerobic Blood Culture - Final No growth in 5 days 04/10/18 17:50 Aerobic Blood Culture - Final Blood - Peripheral No growth in 5 days Anaerobic Blood Culture - Final No growth in 5 days Review/Management - Review/Management Plan: Encephalopathy Likely secondary to respiratory failure, hypoxia, metabolic etiology Respiratory failure - Lactic acidosis - Hyperammonemia - Leukocytosis - Neuro checks Q1h - MRI brain and head CT scan was unremarkable for an acute intracranial abnormality - Will reassess after patient he is off sedation. - CSF analysis is unremarkable, pending culture and HSV PCR results - EEG with evidence of encephalopathy, no epileptiform discharges or electrographic seizure activity - I met with family members and discussed the current neurologic status - There is no indication to start AEDs. -DVT prophylaxis - GI prophylaxis - Neurology will follow up. - Dr. Farias will follow up on Tuesday04/03/2018. - Please call for questions 04/03/18 met encep mri LP eeg neg labs neg my hope is off sedatives he should do fine no hx dementia nor pd acc to daughters labs ordered few more 04/04/18 much better ok to dc sedatives neurowise recheck abg still some jerking can recheck eeg when off vent I spoke with Dr Ortiz of pulmonary. 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 According to the pt and family this developed a week after the cervical spine surgery. Myasthenia labs are negative , which does not absolutely r/o myasthenia gravis. He does not have ptosis or other bulbar sx of MG. Guillain [place] can affect respiration and phrenic nerves , but he has no limb weakness and DTRs are intact. Will discuss with Dr Farias possible empiric trial of ivig for possible atypical MG with normal labs. Will send serum JUANJO to be sure not IgA deficient before considering ivig
[2018-04-15 22:44] LABS: Kappa Lambda Ratio 1.58 (1.57-3.93)
[2018-04-16] MEDS: Artificial Tears Opth Drops 15 ML Bottle EACH EYE SCH ×3 (00:05→16:33)
[2018-04-16] MEDS: Oral Hygiene Kit OROPHARYNG SCH ×4 (00:05→16:33)
[2018-04-16] MEDS: Piperacil/Tazo 4.5 GM Premix 4.5 GM/100 ML BAG IV.SIG SCH ×4 (02:44→21:01)
[2018-04-16] MEDS: Labetalol HCl Inj 20 MG/4 ML Vial IV.PUSH PRN ×4 (02:44→18:19)
[2018-04-16 05:01] LABS: Hematocrit 29.8 % (39.0-51.0); Hemoglobin 10.2 gm/dL (13.0-17.0); Mean Corpuscular HGB Conc 34.4 % (32.0-36.0); Mean Corpuscular Hemoglobin 32.1 pg (27.0-34.0); Mean Corpuscular Volume 93.3 fL (80.0-100.0); Mean Platelet Volume 9.5 fL (7.0-11.0); Platelet Count 279 th/mm3 (150-450); Red Blood Count 3.19 mil/mm3 (4.50-5.90); Red Cell Distribution Width 14.4 % (11.6-17.2); White Blood Count 10.6 th/mm3 (4.0-11.0)
[2018-04-16 05:21] LABS: Anion Gap 8 meq/L (5-15); Blood Urea Nitrogen 14 mg/dL (7-18); Calcium 7.5 mg/dL (8.5-10.1); Carbon Dioxide 23.4 meq/L (21.0-32.0); Chloride 119 meq/L (98-107); Glomerular Filtration Rate Greater Than 89 mL/min (>89); Glucose,Random 135 mg/dL (74-106); Magnesium 2.2 mg/dL (1.5-2.5); Phosphorus 1.7 mg/dL (2.5-4.9); Potassium 3.3 meq/L (3.5-5.1); Sodium 150 meq/L (136-145)
[2018-04-16] MEDS: Levothyroxine 125 MCG Tablet PO SCH (05:33)
[2018-04-16] MEDS: Potassium Phosphate Inj 30 MMOL in Sodium Chlor 0.9% Inj 250 ML IV.SIG PRN (05:45)
[2018-04-16] MEDS: Dextrose 5%/NaCl 0.45% Inj 1,000 ML IV.CONT SCH (06:40)
--- NOTE | 2018-04-16 07:54 | P.PNCC ---
Subjective Subjective Remarks/Hospital Course: This 67-year-old came into the emergency room today with his and daughter. On 02/13/2018, he had a microdiscectomy, C5-C6, by Dr. Schwarz. He was discharged home the next day. A few days after, he had not been feeling well, short of breath, disoriented, generally weak, symptoms were getting worse, disorientation was worse. He was referred to emergency department by his primary care physician for an evaluation. In the ED he was found to be in severe hypercarbic respiratory acidosis and was intubated by ED attending. 04/01: CO2 retention corrected. Remains mildly alkalotic due to chronic CO2 elevation. PH normalized. Still requiring vasopressor therapy with norepinephrine. Broad-spectrum antibiotic coverage started. Lumbar puncture performed with opening pressure 20 and crystal-clear fluid, sent for cell counts , chemistries and culture. HSV included. One extra tube sent for future studies if necessary. Ammonia level 71 - repeat daily. 04/02: CSF appears benign. Repeat ammonia level normal. Gamma GT normal. Cardiac echo estimated of 45% ejection fraction requires a little additional investigation -patient has been chronically short of breath for several weeks now. Leukocytosis and left shift persists. Gram-positive cocci and white cells seen in sputum. This man clearly became acutely and critically ill - exact cause still eludes us. 04/03: Leukocytosis improved. Remains quite rigid when stimulated. Continues to move 4 limbs with purpose and follows commands with 4 limbs. Sputum demonstrates white blood cells and gram-negative rods. 04/04: Improved color and perfusion. Extubated yesterday afternoon but failed after about 45 minutes -developed somnolence then obtundation, appeared to be having difficulty taking a breath, concern for vocal cord dysfunction. On reintubation the cord edges were irregular but otherwise normal in appearance. I could not assess cord function as patient was not alert enough to cooperate with commands. We will definitely pursue possibilities of vocal cord dysfunction and or phrenic nerve paralysis once we get him extubated. Ideally, a sniff test under fluoroscopy would demonstrate any paradoxical diaphragm motion. 04/05: Afebrile. Neurologically appears intact. Daughter concerned about "appears distant" however on 40 mcg/kg/min of propofol and 250 mcg an hour fentanyl. No bowel movement since admission. Tube feeding only at 20 cc an hour. 04/06: Afebrile. Neurologically intact. Following commands.. Positive BM. Labile blood pressures yesterday. Replace potassium currently. 04/07: Patient writing notes today. Chest x-ray clear. Elevated left diaphragm , probably dysfunctional. Continued encephalopathy and generalized weakness chris very concerning. We will try Aminophyllin today to see if we can get some diaphragm and central nervous system stimulation. 04/08: Started on theophylline yesterday. Check level in a.m. Will attempt PSV trial today. Noted pulmonology requests possible T-bar with ABG when appropriate. Afebrile. 04/09: T-max 100. theophylline currently 3.7. Currently on CPAP trials. 02/18. 45%. Check ABG at 10 today. Desaturated yesterday currently back at 40%. 04/10: Resting in bed. Episode of nausea overnight. Negative workup. Evaluated positive BM 04/08. Patient more agitated overnight. Propofol discontinued due to hypotension. Currently on fentanyl drip. Theophylline. Creatinine currently 2.0 we will consult nephrology. Discontinue lisinopril. Receiving one half normal saline bolus currently. 04/11: T-max 101.1. Increasing O2 records.Increasing white blood cell count. For the cuff is overinflated to palpate the vocal cords. Leak by examination. Will change ET tube in place central line today. Empirically start antibiotics for aspiration. Not tolerating tube feeds and currently to low inner wall suction. Check KUB after ET tube exchange and central line placement. Restart metoclopramide. Positive BMs. 04/12: Yesterday, CT thorax revealed collapsed left lower lung. Status post bronchoscopy with reinflation of lung. Better saturations today. Continues with small and large bowel colonic distention. Right: 11 cm. GI is following. Might need decompression. Current orogastric tube to low intermittent wall suction. 04/13: Improved small and large bowel colonic distention. Down to 8 cm long family discussion. We will perform percutaneous tracheostomy and PEG tube as well. Request second neurological opinion. In better spirits today. 04/14: no changes. awakens and follows commands. plan for trach today. 22: s/p trach yesterday. awake and alert. calm. looks more comfortable than yesterday. did not tolerate PRVC today, but tolerates PSV with high support (24/ 5/35%). SUBJECTIVE: 2/3: complaining of new RUQ pain. ?+Fry's sign. labs wnl today. no other complaints. denies nausea or vomiting. still has diarrhea, but this is slowing down after holding bowel regimen. ROS otherwise negative. Objective Vital Signs / I&O: Vital Signs 04/15/18 08:00 04/15/18 09:00 04/15/18 10:00 Temperature 36.8 C Pulse Rate 70 93 H 87 Respiratory Rate 21 18 17 Blood Pressure 175/83 H 172/83 H 168/108 H Pulse Oximetry 98 92 L 94 L 04/15/18 10:55 04/15/18 11:00 04/15/18 12:00 Temperature 36.7 C Pulse Rate 92 H 82 Respiratory Rate 16 15 15 Blood Pressure 153/83 H 142/71 H Pulse Oximetry 92 L 92 L 92 L 04/15/18 12:32 04/15/18 13:00 04/15/18 14:00 Temperature Pulse Rate 71 74 71 Respiratory Rate 16 15 15 Blood Pressure 116/75 131/70 Pulse Oximetry 96 99 95 04/15/18 15:00 04/15/18 16:00 04/15/18 17:00 Temperature 37.0 C Pulse Rate 61 67 80 Respiratory Rate 15 15 17 Blood Pressure 104/61 120/66 142/77 H Pulse Oximetry 97 97 98 04/15/18 17:17 04/15/18 18:00 04/15/18 19:00 Temperature Pulse Rate 65 77 75 Respiratory Rate 15 18 Blood Pressure 142/77 H Pulse Oximetry 98 93 L 96 04/15/18 19:02 04/15/18 19:32 04/15/18 20:00 Temperature 37.1 C Pulse Rate 74 75 73 Respiratory Rate Blood Pressure 139/78 148/77 H Pulse Oximetry 96 96 96 04/15/18 20:02 04/15/18 20:10 04/15/18 20:32 Temperature Pulse Rate 73 75 Respiratory Rate 16 15 Blood Pressure 143/78 H 152/81 H Pulse Oximetry 96 98 99 04/15/18 21:00 04/15/18 21:02 04/15/18 21:32 Temperature Pulse Rate 82 82 79 Respiratory Rate Blood Pressure 169/88 H 133/72 Pulse Oximetry 97 97 96 04/15/18 22:00 04/15/18 22:02 04/15/18 22:32 Temperature Pulse Rate 83 79 75 Respiratory Rate Blood Pressure 143/82 H 146/82 H Pulse Oximetry 96 97 96 04/15/18 23:00 04/15/18 23:02 04/15/18 23:32 Temperature Pulse Rate 73 74 87 Respiratory Rate Blood Pressure 131/74 185/93 H Pulse Oximetry 95 95 96 04/15/18 23:35 04/16/18 00:00 04/16/18 00:02 Temperature 36.9 C Pulse Rate 87 86 Respiratory Rate 18 Blood Pressure 163/85 H Pulse Oximetry 96 97 97 04/16/18 00:05 04/16/18 00:32 04/16/18 01:00 Temperature Pulse Rate 84 87 88 Respiratory Rate 17 Blood Pressure 170/84 H Pulse Oximetry 95 97 04/16/18 01:02 04/16/18 01:32 04/16/18 02:00 Temperature Pulse Rate 86 82 78 Respiratory Rate Blood Pressure 160/80 H 149/79 H Pulse Oximetry 97 97 97 04/16/18 02:02 04/16/18 02:32 04/16/18 03:00 Temperature Pulse Rate 79 84 68 Respiratory Rate Blood Pressure 168/84 H 192/86 H Pulse Oximetry 97 97 95 04/16/18 03:02 04/16/18 03:32 04/16/18 04:00 Temperature 37.1 C Pulse Rate 66 68 69 Respiratory Rate Blood Pressure 129/74 157/79 H Pulse Oximetry 95 97 97 04/16/18 04:02 04/16/18 04:32 04/16/18 05:00 Temperature Pulse Rate 70 69 69 Respiratory Rate 18 Blood Pressure 156/85 H 149/82 H Pulse Oximetry 97 93 L 95 04/16/18 05:02 04/16/18 05:32 04/16/18 06:00 Temperature Pulse Rate 77 68 78 Respiratory Rate Blood Pressure 180/89 H 135/78 Pulse Oximetry 99 97 97 04/16/18 06:02 Temperature Pulse Rate 79 Respiratory Rate Blood Pressure 154/78 H Pulse Oximetry 97 Intake & Output 04/15/18 04/16/18 04/16/18 18:59 06:59 18:59 Intake Total 2024 Output Total 1825 / 1825 1600 / 1600 Balance 200 / 200 416 / 416 Weight 90.1 kg Intake: IV 1200 / 1200 1050 / 1050 Precedex Inj 1,000 MCG In NS 250 / 250 Inj 240 ML @ 0.2 MCG/KG/HR 4.31 mls/hr IV.CONT TITRATE PRN Rx# :[id number] D5W/1/2 NS Inj 1,000 ML @ 84 1000 / 1000 600 / 600 mls/hr IV.CONT .[id number] [facility] Rx# :[id number] Zosyn 4.5 GM Premix 4.5 gm In 200 / 200 200 / 200 100 ml @ 200 mls/hr IV.SIG Q6H [facility] Rx#:[id number] Tube Feeding 265 / 265 566 / 566 Water Bolus Amount 160 / 160 Free Water Amount 400 / 400 400 / 400 Output: Stool 600 / 600 700 / 700 Urine Amount (Catheter) 1225 / 1225 900 / 900 Condom 900 / 900 Indwelling Urethral Catheter 1225 / 1225 Gastric Drainage 0 / 0 L nare Dobbhoff 0 / 0 Other: Date of Last Bowel Movement 04/15/18 04/16/18 Result Diagrams: 04/16/18 04:05 04/16/18 04:05 Objective Remarks: GENERAL: 67-year-old male currently orotracheally intubated SKIN: Warm and dry. HEAD: Atraumatic. Normocephalic. EYES: Pupils equal and round. No scleral icterus. No injection or drainage. ENT: No nasal bleeding or discharge. Mucous membranes pink and moist. NECK: Trachea midline. No JVD. CARDIOVASCULAR: RRR sinus. RESPIRATORY: Raises shoulders to take spontaneous breaths. equal chest rise. GASTROINTESTINAL: Abdomen slightly protuberant/non-tender, slightly firm and tympanic. MUSCULOSKELETAL: Extremities without clubbing, cyanosis, trace to 1+ edema. No obvious deformities. NEUROLOGICAL: Follows commands and moves extremities to command. Assessment and Plan - Assessment and Plan Plan: Neuro/Psych: History of anterior C5/6 microdiscectomy with fusion Currently on fentanyl drip Restarted dexmedetomidine drip. Goal of RASS 0 Daily sedation vacation Evaluate by neurosurgery/Dr. Viera. No intervention planned at this time CT brain/MRI C-spine negative EEG revealed no epileptic activity Neurology following. Recommend myasthenia gravis lab. Negative to date. Left diaphragm remains elevated, suspect not functioning well. Requesting second opinion for neurological status CV: Systolic heart failure unknown if acute or chronic Essential hypertension Hyperlipidemia Ejection fraction 45% on admission. Appreciate cardiac evaluation by Dr. Escobedo. No plans at this time Holding amlodipine 10 mg daily, and metoprolol tartrate 12.5 mg twice daily for hypertension Holding clonidine 0.1 twice daily and lisinopril 5 mg daily in light of hypotension/lisinopril for acute kidney injury Continue pravastatin 40 mg daily for dyslipidemia. Continue aspirin 81 mg by mouth daily. Resp: Acute hypercapnic respiratory failure- now chronic Klebsiella oxycodone pneumonia PRVC ventilation Ventilator bundle Head of bed at 30 degrees Albuterol/ipratropium aerosols every 4 hours with albuterol aerosols every 2 hours as needed dyspnea Will need sniff test to assess diaphragmatic function once extubated We will consult ENT to assess vocal cords when appropriate Appreciate pulmonary input. Spontaneous breathing trial daily. 02/08 discontinue theophylline 400 mg daily acute delirium. Noted level. 04/09 3.7 Status post bronchoscopy 04/11. Thick white purulent secretions left lower lobe suction to clear. General surgery consult for percutaneous tracheostomy 04/14: Dr. Conde daily weaning of CPAP/pressure support. GI: Gastroesophageal reflux disease Transaminitis Hypoalbuminemia Ileus new RUQ pain Tube feeding/Nepro at 60 cc an hour days. NG tube to low intermittent wall suction At home on pantoprazole 40 mg daily. Currently on lansoprazole 30 mg daily holding bowel regimen for diarrhea add fiber to tube feeds. check LFTs, amylase, lipase. check RUQ ultrasound : no indication for lehman catheter at this time. Endo: Hypothyroidism TSH 1.28. Continue levothyroxine 125 mg by mouth daily Sliding scale insulin if indicated to maintain euglycemia Renal: Kidney injury - acute, resolved. Avoid all nephrotoxic medications Creatinine currently 1.1 Neurology consultation for evaluation this is contrast-induced nephropathy from scans 03/31. Avoid nephrotoxic medication. Lisinopril discontinued. Accurate I's and O's Monitor urine output Heme: Normocytic anemia Leukocytosis Monitor CBC daily. Follow trends per No indication for transfusion of blood proximal to this time. ID: Klebsiella oxycodone pneumonia sputum 04/01 Currently repleted therapy with ceftriaxone per infectious disease. Lumbar puncture negative. HSV negative No growth to date on other cultures aside from sputum Recheck blood cultures, sputum 04/02 pending Started on piperacillin/tazobactam 04/11 due to aspiration, anticipated stop date 04/19. FEN: Hypernatremia Hypopotassemia Free water 200 cc every 6 hours. Replace electrolytes as clinically indicated per ICU electrolyte protocol. Recheck electrolytes in a.m. hypernatremia slowly improving. MSK: PT evaluate and treat Access -Utilize peripheral IV. Prophylaxis -GI -lansoprazole -DVT -SCD/enoxaparin Overall impression: Remains quite weak and debilitated. We need to continue to work on nutrition and gentle weaning. OOB and working with PT daily. king ACUNA pain today.
[2018-04-16 08:14] LABS: Albumin 2.2 g/dL (3.4-5.0)
[2018-04-16 08:15] LABS: Total Protein 5.6 g/dL (6.4-8.2)
[2018-04-16] MEDS: Enoxaparin Inj 40 MG/0.4 ML Syringe SQ SCH (08:32)
[2018-04-16] MEDS: Potassium Chloride Liq 20 MEQ/15 ML UDC PO PRN ×3 (08:32→14:59)
[2018-04-16] MEDS: Senna/Docusate Sodium 8.6/50 MG Tablet PO SCH ×2 (08:33→21:02)
[2018-04-16] MEDS: Chlorhexidine 0.12% Oral Kit 15 ML UDC OROPHARYNG SCH ×2 (08:33→21:00)
[2018-04-16] MEDS: Acetaminophen 325 MG Tablet PO PRN ×2 (09:29→21:02)
--- NOTE | 2018-04-16 15:42 | US ---
EXAM DATE: 04/16/2018 3:31 PM EST AGE/SEX: 67 years / Male INDICATIONS: Right upper quadrant pain. CLINICAL DATA: This is the patient's initial encounter. Patient reports that signs and symptoms have been present for 3 days and indicates a pain score of 3/10. MEDICAL/SURGICAL HISTORY: Gastroesophageal reflux disease. Hypercholesterolemia. Thyroid disea se. . Inguinal hernia repair, left. Microdiscectomy. Bilateral lasik surgery. COMPARISON: [facility] [place], CT ABDOMEN & PELVIS W/O CONTRAST, 04/11/2018. . MEASUREMENTS: Liver:__ 16.4 cm. Common Bile Duct:__ 4mm. FINDINGS: Liver: Increased echogenicity without focal lesion or ductal dilatation. Portal Vein: Hepatopedal flow seen in portal vein. Common Duct: No intraluminal mass or stone visualized. Gallbladder: The gallbladder wall is minimally prominent however there is no pericholecystic fluid. No gallstones are seen. Pancreas: Not well visualized. Right Kidney: Normal echogenicity and cortical thickness. No mass or hydronephrosis. Other: There is a trace right pleural effusion. CONCLUSION: 1. Minimal prominence of the gallbladder wall. No pericholecystic fluid is seen no stones are eviden t. 2. Increased echogenicity of the liver suggesting fatty infiltration. Electronically signed by: Dru Damon MD Board Certified Radiologist 04/16/2018 3:41 PM EST
[2018-04-16] MEDS: hydrALAZINE 50 MG Tablet PO SCH ×2 (19:20→21:02)
[2018-04-16 21:05] LABS: Potassium 3.7 meq/L (3.5-5.1)
[2018-04-16 21:11] LABS: Phosphorus 2.2 mg/dL (2.5-4.9)
[2018-04-17] MEDS: Artificial Tears Opth Drops 15 ML Bottle EACH EYE SCH ×3 (00:02→17:37)
[2018-04-17] MEDS: Oral Hygiene Kit OROPHARYNG SCH ×4 (00:03→17:37)
[2018-04-17] MEDS: Piperacil/Tazo 4.5 GM Premix 4.5 GM/100 ML BAG IV.SIG SCH ×4 (02:37→20:05)
[2018-04-17] MEDS: Labetalol HCl Inj 20 MG/4 ML Vial IV.PUSH PRN ×3 (03:38→18:34)
[2018-04-17] MEDS: Potassium Phosphate 500 MG Soluble Tablet PO PRN ×2 (03:47→10:48)
[2018-04-17 05:52] LABS: Hematocrit 30.9 % (39.0-51.0); Hemoglobin 10.4 gm/dL (13.0-17.0); Mean Corpuscular HGB Conc 33.8 % (32.0-36.0); Mean Corpuscular Hemoglobin 31.2 pg (27.0-34.0); Mean Corpuscular Volume 92.4 fL (80.0-100.0); Mean Platelet Volume 9.7 fL (7.0-11.0); Platelet Count 305 th/mm3 (150-450); Red Blood Count 3.34 mil/mm3 (4.50-5.90); Red Cell Distribution Width 14.6 % (11.6-17.2); White Blood Count 10.1 th/mm3 (4.0-11.0)
[2018-04-17] MEDS: hydrALAZINE 50 MG Tablet PO SCH ×3 (05:57→22:00)
[2018-04-17] MEDS: Levothyroxine 125 MCG Tablet PO SCH (05:57)
[2018-04-17 06:25] LABS: Anion Gap 7 meq/L (5-15); Blood Urea Nitrogen 12 mg/dL (7-18); Carbon Dioxide 24.9 meq/L (21.0-32.0); Chloride 113 meq/L (98-107); Glomerular Filtration Rate Greater Than 89 mL/min (>89); Glucose,Random 120 mg/dL (74-106); Magnesium 2.2 mg/dL (1.5-2.5); Phosphorus 2.2 mg/dL (2.5-4.9); Potassium 3.1 meq/L (3.5-5.1); Sodium 145 meq/L (136-145)
[2018-04-17] MEDS: Chlorhexidine 0.12% Oral Kit 15 ML UDC OROPHARYNG SCH ×2 (10:21→20:07)
[2018-04-17] MEDS: Enoxaparin Inj 40 MG/0.4 ML Syringe SQ SCH (10:26)
[2018-04-17] MEDS: Senna/Docusate Sodium 8.6/50 MG Tablet PO SCH ×2 (10:27→20:44)
--- NOTE | 2018-04-17 12:59 | P.PN ---
Subjective Interval history: Sitting up in a chair. On AC rate of 15, FiO2 of 40%. Has loose stools. No fever chills. Tolerating tube feedings. Physical Exam Vital signs: Vital Signs 04/16/18 13:00 04/16/18 13:14 04/16/18 13:19 Temperature Pulse Rate 81 85 Respiratory Rate 18 18 19 Blood Pressure 193/97 H Pulse Oximetry 94 L 95 04/16/18 14:00 04/16/18 15:00 04/16/18 16:00 Temperature 98.9 F Pulse Rate 83 85 83 Respiratory Rate 17 16 16 Blood Pressure 178/97 H 194/95 H 200/91 H Pulse Oximetry 93 L 96 96 04/16/18 16:23 04/16/18 16:32 04/16/18 17:00 Temperature Pulse Rate 76 75 74 Respiratory Rate 16 17 17 Blood Pressure 190/98 H 177/91 H 177/89 H Pulse Oximetry 95 95 96 04/16/18 17:04 04/16/18 17:10 04/16/18 17:36 Temperature Pulse Rate 71 69 Respiratory Rate 17 17 17 Blood Pressure 160/90 H Pulse Oximetry 96 96 04/16/18 18:00 04/16/18 18:33 04/16/18 19:00 Temperature Pulse Rate 78 68 70 Respiratory Rate 16 17 16 Blood Pressure 175/89 H 159/90 H 168/91 H Pulse Oximetry 97 97 97 04/16/18 20:00 04/16/18 20:05 04/16/18 21:00 Temperature 98.4 F Pulse Rate 75 76 78 Respiratory Rate 17 16 17 Blood Pressure 162/90 H 166/87 H Pulse Oximetry 97 96 96 04/16/18 21:32 04/16/18 22:00 04/16/18 23:00 Temperature Pulse Rate 80 77 Respiratory Rate 17 16 16 Blood Pressure 164/89 H 158/84 H Pulse Oximetry 97 97 04/17/18 00:00 04/17/18 01:00 04/17/18 01:10 Temperature Pulse Rate 78 83 88 Respiratory Rate 17 16 18 Blood Pressure 153/81 H 157/85 H Pulse Oximetry 95 96 97 04/17/18 02:00 04/17/18 02:41 04/17/18 03:00 Temperature Pulse Rate 84 81 86 Respiratory Rate 16 17 Blood Pressure 173/91 H 161/84 H 180/88 H Pulse Oximetry 96 96 96 04/17/18 03:11 04/17/18 03:35 04/17/18 04:00 Temperature 98.7 F Pulse Rate 85 84 74 Respiratory Rate 17 Blood Pressure 173/89 H 170/85 H 147/85 H Pulse Oximetry 93 L 96 96 04/17/18 04:06 04/17/18 05:00 04/17/18 06:00 Temperature Pulse Rate 74 74 74 Respiratory Rate 18 17 Blood Pressure 156/84 H 161/77 H Pulse Oximetry 92 L 96 96 04/17/18 07:00 04/17/18 07:42 04/17/18 11:18 Temperature Pulse Rate 79 77 89 Respiratory Rate 14 19 18 Blood Pressure 165/81 H Pulse Oximetry 94 L 94 L 97 Intake & Output 04/16/18 04/17/18 04/17/18 18:59 06:59 18:59 Intake Total 2827 / 2827 1701 / 1701 700 / 700 Output Total 1200 / 1200 800 / 800 Balance 1627 / 1627 901 / 901 700 / 700 Weight 90.9 kg Intake: IV 1575 / 1575 200 / 200 100 / 100 Precedex Inj 1,000 MCG In NS 165 / 165 Inj 240 ML @ 0.2 MCG/KG/HR 4.31 mls/hr IV.CONT TITRATE PRN Rx# :[id number] D5W/1/2 NS Inj 1,000 ML @ 84 950 / 950 mls/hr IV.CONT .[id number] [facility] Rx# :[id number] Zosyn 4.5 GM Premix 4.5 gm In 200 / 200 200 / 200 100 / 100 100 ml @ 200 mls/hr IV.SIG Q6H [facility] Rx#:[id number] Potassium Phosphate Inj 30 MMOL 260 / 260 In NS Inj 250 ML @ 42 mls/hr IV.SIG UNSCH PRN Rx#:[id number] Tube Feeding 172 / 172 601 / 601 Water Bolus Amount 180 / 180 Free Water Amount 900 / 900 900 / 900 600 / 600 Output: Stool 500 / 500 Urine Amount (Catheter) 700 / 700 800 / 800 Condom 700 / 700 800 / 800 Gastric Drainage 0 / 0 L nare Dobbhoff 0 / 0 Other: Date of Last Bowel Movement 04/16/18 04/17/18 Narrative: GENERAL: Awake and alert. No acute distress. Cooperative. On the vent HEAD: Normocephalic. Atraumatic. EYES: Pupils equal round and reactive to light bilaterally. No scleral icterus. ENT: Moist oral mucosa. ET tube in place. NECK: Trachea midline and easily palpable. No JVD seen. CHEST: Decreased breath sounds at the bases. Occasional basal crackles. CARDIOVASCULAR: Regular rate and rhythm. EXTREMITIES: No cyanosis or edema. Squeezes hands well and moves both feet. SKIN: Warm, dry, nonjaundiced. - Urinary Catheter Management Indwelling Urethral Catheter Cath placed during this visit: yes, but has since been removed by the nurse Reason for continuing: Continue criteria not met Insertion date: 04/10/18 Insertion time: 01:45 Removal date: 04/15/18 Removal time: 17:05 Condom Cath placed during this visit: no Results - Labs CBC & Chem 7: 04/17/18 04:46 04/17/18 04:46 Laboratory Results - last 24 hr 04/16/18 04/16/18 04/17/18 14:20 20:05 04:46 WBC 10.1 RBC 3.34 L Hgb 10.4 L Hct 30.9 L MCV 92.4 MCH 31.2 MCHC 33.8 RDW 14.6 Plt Count 305 MPV 9.7 Sodium Potassium 3.2 L 3.7 Chloride Carbon Dioxide Anion Gap BUN Creatinine Estimated GFR Random Glucose Calcium Phosphorus 2.2 L Magnesium 04/17/18 04:46 WBC RBC Hgb Hct MCV MCH MCHC RDW Plt Count MPV Sodium 145 Potassium 3.1 L Chloride 113 H Carbon Dioxide 24.9 Anion Gap 7 BUN 12 Creatinine 0.76 Estimated GFR Greater than 89 Random Glucose 120 H Calcium 8.0 L Phosphorus 2.2 L Magnesium 2.2 Microbiology 04/11/18 18:15 Blood - Peripheral Aerobic Blood Culture - Final No growth in 5 days 04/11/18 18:15 Blood - Peripheral Anaerobic Blood Culture - Final No growth in 5 days 04/11/18 18:00 Blood - Peripheral Aerobic Blood Culture - Final No growth in 5 days 04/11/18 18:00 Blood - Peripheral Anaerobic Blood Culture - Final No growth in 5 days - Imaging Impressions Gallbladder Ultrasound 04/16/18 00:00 CONCLUSION: 1. Minimal prominence of the gallbladder wall. No pericholecystic fluid is seen no stones are evident. 2. Increased echogenicity of the liver suggesting fatty infiltration. Assessment and Plan - Assessment (1) Respiratory failure Code(s): J96.90 - Respiratory failure, unspecified, unspecified whether with hypoxia or hypercapnia Status: Acute (2) Atelectasis Code(s): J98.11 - Atelectasis Status: Acute (3) Neck pain, chronic Code(s): M54.2 - Cervicalgia; G89.29 - Other chronic pain Status: Chronic (4) Other cervical disc degeneration at C5-C6 level Code(s): M50.322 - Other cervical disc degeneration at C5-C6 level Status: Chronic (5) Protrusion of cervical intervertebral disc Code(s): M50.20 - Other cervical disc displacement, unspecified cervical region Status: Chronic (6) Adult failure to thrive Code(s): R62.7 - Adult failure to thrive Status: Acute (7) Shortness of breath Code(s): R06.02 - Shortness of breath Status: Acute (8) Weakness generalized Code(s): R53.1 - Weakness Status: Acute (9) Acute hyponatremia Code(s): E87.1 - Hypo-osmolality and hyponatremia Status: Acute (10) Ventilator dependent Code(s): Z99.11 - Dependence on respirator [ventilator] status Status: Acute - Plan 1 continue on AC rate of 14 PEEP of 5 and FiO2 35 % 2 wean FiO2 to keep sats greater than 92 3. Chest x-ray in a.m. 4. DuoNeb nebs every 6 hours as needed 5. Wean sedation 6. Tracheal lavage and suction as needed 7. Continue Lovenox 40 mg subcu daily 8. Continue antibiotics per ID 9. CBC BMP in a.m. 10. CPAP trial daily up to 8 hours 11. PT evaluation 12. Up in chair as tolerated
[2018-04-17] MEDS: Potassium Chloride Liq 20 MEQ/15 ML UDC PO PRN (17:38)
--- NOTE | 2018-04-17 18:25 | P.PNCC ---
Subjective Subjective Remarks/Hospital Course: This 67-year-old came into the emergency room today with his and daughter. On 02/13/2018, he had a microdiscectomy, C5-C6, by Dr. Schwarz. He was discharged home the next day. A few days after, he had not been feeling well, short of breath, disoriented, generally weak, symptoms were getting worse, disorientation was worse. He was referred to emergency department by his primary care physician for an evaluation. In the ED he was found to be in severe hypercarbic respiratory acidosis and was intubated by ED attending. 04/01: CO2 retention corrected. Remains mildly alkalotic due to chronic CO2 elevation. PH normalized. Still requiring vasopressor therapy with norepinephrine. Broad-spectrum antibiotic coverage started. Lumbar puncture performed with opening pressure 20 and crystal-clear fluid, sent for cell counts , chemistries and culture. HSV included. One extra tube sent for future studies if necessary. Ammonia level 71 - repeat daily. 04/02: CSF appears benign. Repeat ammonia level normal. Gamma GT normal. Cardiac echo estimated of 45% ejection fraction requires a little additional investigation -patient has been chronically short of breath for several weeks now. Leukocytosis and left shift persists. Gram-positive cocci and white cells seen in sputum. This man clearly became acutely and critically ill - exact cause still eludes us. 04/03: Leukocytosis improved. Remains quite rigid when stimulated. Continues to move 4 limbs with purpose and follows commands with 4 limbs. Sputum demonstrates white blood cells and gram-negative rods. 04/04: Improved color and perfusion. Extubated yesterday afternoon but failed after about 45 minutes -developed somnolence then obtundation, appeared to be having difficulty taking a breath, concern for vocal cord dysfunction. On reintubation the cord edges were irregular but otherwise normal in appearance. I could not assess cord function as patient was not alert enough to cooperate with commands. We will definitely pursue possibilities of vocal cord dysfunction and or phrenic nerve paralysis once we get him extubated. Ideally, a sniff test under fluoroscopy would demonstrate any paradoxical diaphragm motion. 04/05: Afebrile. Neurologically appears intact. Daughter concerned about "appears distant" however on 40 mcg/kg/min of propofol and 250 mcg an hour fentanyl. No bowel movement since admission. Tube feeding only at 20 cc an hour. 04/06: Afebrile. Neurologically intact. Following commands.. Positive BM. Labile blood pressures yesterday. Replace potassium currently. 04/07: Patient writing notes today. Chest x-ray clear. Elevated left diaphragm , probably dysfunctional. Continued encephalopathy and generalized weakness chris very concerning. We will try Aminophyllin today to see if we can get some diaphragm and central nervous system stimulation. 04/08: Started on theophylline yesterday. Check level in a.m. Will attempt PSV trial today. Noted pulmonology requests possible T-bar with ABG when appropriate. Afebrile. 04/09: T-max 100. theophylline currently 3.7. Currently on CPAP trials. 02/18. 45%. Check ABG at 10 today. Desaturated yesterday currently back at 40%. 04/10: Resting in bed. Episode of nausea overnight. Negative workup. Evaluated positive BM 04/08. Patient more agitated overnight. Propofol discontinued due to hypotension. Currently on fentanyl drip. Theophylline. Creatinine currently 2.0 we will consult nephrology. Discontinue lisinopril. Receiving one half normal saline bolus currently. 04/11: T-max 101.1. Increasing O2 records.Increasing white blood cell count. For the cuff is overinflated to palpate the vocal cords. Leak by examination. Will change ET tube in place central line today. Empirically start antibiotics for aspiration. Not tolerating tube feeds and currently to low inner wall suction. Check KUB after ET tube exchange and central line placement. Restart metoclopramide. Positive BMs. 04/12: Yesterday, CT thorax revealed collapsed left lower lung. Status post bronchoscopy with reinflation of lung. Better saturations today. Continues with small and large bowel colonic distention. Right: 11 cm. GI is following. Might need decompression. Current orogastric tube to low intermittent wall suction. 04/13: Improved small and large bowel colonic distention. Down to 8 cm long family discussion. We will perform percutaneous tracheostomy and PEG tube as well. Request second neurological opinion. In better spirits today. 04/14: no changes. awakens and follows commands. plan for trach today. 22: s/p trach yesterday. awake and alert. calm. looks more comfortable than yesterday. did not tolerate PRVC today, but tolerates PSV with high support (24/ 5/35%). SUBJECTIVE: 2/3: complaining of new RUQ pain. ?+Fry's sign. labs wnl today. no other complaints. denies nausea or vomiting. still has diarrhea, but this is slowing down after holding bowel regimen. ROS otherwise negative. 04/17: Gallbladder ultrasound appears benign. No new complaints. Objective Vital Signs / I&O: Vital Signs 04/16/18 18:33 04/16/18 19:00 04/16/18 20:00 Temperature 98.4 F Pulse Rate 68 70 75 Respiratory Rate 17 16 17 Blood Pressure 159/90 H 168/91 H 162/90 H Pulse Oximetry 97 97 97 04/16/18 20:05 04/16/18 21:00 04/16/18 21:32 Temperature Pulse Rate 76 78 Respiratory Rate 16 17 17 Blood Pressure 166/87 H Pulse Oximetry 96 96 04/16/18 22:00 04/16/18 23:00 04/17/18 00:00 Temperature Pulse Rate 80 77 78 Respiratory Rate 16 16 17 Blood Pressure 164/89 H 158/84 H 153/81 H Pulse Oximetry 97 97 95 04/17/18 01:00 04/17/18 01:10 04/17/18 02:00 Temperature Pulse Rate 83 88 84 Respiratory Rate 16 18 16 Blood Pressure 157/85 H 173/91 H Pulse Oximetry 96 97 96 04/17/18 02:41 04/17/18 03:00 04/17/18 03:11 Temperature Pulse Rate 81 86 85 Respiratory Rate 17 Blood Pressure 161/84 H 180/88 H 173/89 H Pulse Oximetry 96 96 93 L 04/17/18 03:35 04/17/18 04:00 04/17/18 04:06 Temperature 98.7 F Pulse Rate 84 74 74 Respiratory Rate 17 18 Blood Pressure 170/85 H 147/85 H Pulse Oximetry 96 96 92 L 04/17/18 05:00 04/17/18 06:00 04/17/18 07:00 Temperature Pulse Rate 74 74 79 Respiratory Rate 17 14 Blood Pressure 156/84 H 161/77 H 165/81 H Pulse Oximetry 96 96 94 L 04/17/18 07:42 04/17/18 08:00 04/17/18 09:00 Temperature 98.7 F Pulse Rate 77 76 79 Respiratory Rate 19 18 21 Blood Pressure 161/88 H 170/83 H Pulse Oximetry 94 L 95 95 04/17/18 10:00 04/17/18 11:00 04/17/18 11:18 Temperature Pulse Rate 86 84 89 Respiratory Rate 20 20 18 Blood Pressure 170/83 H 155/84 H Pulse Oximetry 93 L 95 97 04/17/18 12:00 04/17/18 13:00 04/17/18 14:00 Temperature 98.9 F Pulse Rate 79 75 74 Respiratory Rate 18 20 20 Blood Pressure 172/91 H 181/96 H 156/81 H Pulse Oximetry 91 L 94 L 96 04/17/18 15:00 04/17/18 15:44 04/17/18 16:00 Temperature 98.9 F Pulse Rate 81 73 74 Respiratory Rate 21 19 20 Blood Pressure 177/91 H 147/82 H Pulse Oximetry 97 95 94 L 04/17/18 17:00 04/17/18 18:00 Temperature Pulse Rate 81 88 Respiratory Rate 23 18 Blood Pressure 158/76 H 176/85 H Pulse Oximetry 92 L 95 Intake & Output 04/16/18 04/17/18 04/17/18 18:59 06:59 18:59 Intake Total 2827 / 2827 1701 / 1701 2637 / 2637 Output Total 1200 / 1200 800 / 800 670 / 670 Balance 1627 / 1627 901 / 901 1966 / 1966 Weight 90.9 kg Intake: IV 1575 / 1575 200 / 200 200 / 200 Precedex Inj 1,000 MCG In NS 165 / 165 Inj 240 ML @ 0.2 MCG/KG/HR 4.31 mls/hr IV.CONT TITRATE PRN Rx# :[id number] D5W/1/2 NS Inj 1,000 ML @ 84 950 / 950 mls/hr IV.CONT .[id number] GIGI Rx# :[id number] Zosyn 4.5 GM Premix 4.5 gm In 200 / 200 200 / 200 200 / 200 100 ml @ 200 mls/hr IV.SIG Q6H GIGI Rx#:[id number] Potassium Phosphate Inj 30 MMOL 260 / 260 In NS Inj 250 ML @ 42 mls/hr IV.SIG UNSCH PRN Rx#:[id number] Tube Feeding 172 / 172 601 / 601 517 / 517 Water Bolus Amount 180 / 180 900 / 900 Free Water Amount 900 / 900 900 / 900 900 / 900 Other 120 / 120 Output: Stool 500 / 500 120 / 120 Urine Amount (Catheter) 700 / 700 800 / 800 550 / 550 Condom 700 / 700 800 / 800 550 / 550 Gastric Drainage 0 / 0 L nare Dobbhoff 0 / 0 Other: Date of Last Bowel Movement 04/16/18 04/17/18 04/17/18 Result Diagrams: 04/17/18 04:46 04/17/18 15:57 Objective Remarks: GENERAL: 67-year-old male currently orotracheally intubated SKIN: Warm and dry. HEAD: Atraumatic. Normocephalic. EYES: Pupils equal and round. No scleral icterus. No injection or drainage. ENT: No nasal bleeding or discharge. Mucous membranes pink and moist. NECK: Trachea midline. No JVD. CARDIOVASCULAR: RRR sinus. Normal S1-S2 RESPIRATORY: Raises shoulders to take spontaneous breaths. equal chest rise. GASTROINTESTINAL: Abdomen slightly protuberant/non-tender, slightly firm and tympanic. MUSCULOSKELETAL: Extremities without clubbing, cyanosis, trace to 1+ edema. No obvious deformities. NEUROLOGICAL: Follows commands and moves extremities to command. Assessment and Plan - Assessment and Plan Plan: Neuro/Psych: History of anterior C5/6 microdiscectomy with fusion Currently on fentanyl drip Restarted dexmedetomidine drip. Goal of RASS 0 Daily sedation vacation Evaluate by neurosurgery/Dr. Viera. No intervention planned at this time CT brain/MRI C-spine negative EEG revealed no epileptic activity Neurology following. Recommend myasthenia gravis lab. Negative to date. Left diaphragm remains elevated, suspect not functioning well. Requesting second opinion for neurological status See neurology note. CV: Systolic heart failure unknown if acute or chronic Essential hypertension Hyperlipidemia Ejection fraction 45% on admission. Appreciate cardiac evaluation by Dr. Escobedo. No plans at this time Holding amlodipine 10 mg daily, and metoprolol tartrate 12.5 mg twice daily for hypertension Holding clonidine 0.1 twice daily and lisinopril 5 mg daily in light of hypotension/lisinopril for acute kidney injury Continue pravastatin 40 mg daily for dyslipidemia. Continue aspirin 81 mg by mouth daily. Still holding antihypertensives. Resp: Acute hypercapnic respiratory failure- now chronic Klebsiella oxycodone pneumonia PRVC ventilation Ventilator bundle Head of bed at 30 degrees Albuterol/ipratropium aerosols every 4 hours with albuterol aerosols every 2 hours as needed dyspnea Will need sniff test to assess diaphragmatic function once extubated We will consult ENT to assess vocal cords when appropriate Appreciate pulmonary input. Spontaneous breathing trial daily. 02/08 discontinue theophylline 400 mg daily acute delirium. Noted level. 04/09 3.7 Status post bronchoscopy 04/11. Thick white purulent secretions left lower lobe suction to clear. General surgery consult for percutaneous tracheostomy 04/14: Dr. Conde daily weaning of CPAP/pressure support. GI: Gastroesophageal reflux disease Transaminitis Hypoalbuminemia Ileus new RUQ pain Tube feeding/Nepro at 60 cc an hour days. NG tube to low intermittent wall suction At home on pantoprazole 40 mg daily. Currently on lansoprazole 30 mg daily holding bowel regimen for diarrhea add fiber to tube feeds. check LFTs, amylase, lipase. check RUQ ultrasound -benign Follow liver function tests, lipase : no indication for lehman catheter at this time. Endo: Hypothyroidism TSH 1.28. Continue levothyroxine 125 mg by mouth daily Sliding scale insulin if indicated to maintain euglycemia Renal: Kidney injury - acute, resolved. Avoid all nephrotoxic medications Creatinine currently 1.1 Neurology consultation for evaluation this is contrast-induced nephropathy from scans 03/31. Avoid nephrotoxic medication. Lisinopril discontinued. Accurate I's and O's Monitor urine output Heme: Normocytic anemia Leukocytosis Monitor CBC daily. Follow trends per No indication for transfusion of blood proximal to this time. ID: Klebsiella oxytoca pneumonia sputum 04/01 Currently repleted therapy with ceftriaxone per infectious disease. Lumbar puncture negative. HSV negative No growth to date on other cultures aside from sputum Recheck blood cultures, sputum 04/02 pending Started on piperacillin/tazobactam 04/11 due to aspiration, anticipated stop date 04/19. FEN: Hypernatremia Hypopotassemia Free water 200 cc every 6 hours. Replace electrolytes as clinically indicated per ICU electrolyte protocol. Recheck electrolytes in a.m. hypernatremia slowly improving. MSK: PT evaluate and treat Access -Utilize peripheral IV. Prophylaxis -GI -lansoprazole -DVT -SCD/enoxaparin Overall impression: Remains quite weak and debilitated. We need to continue to work on nutrition and gentle weaning. OOB and working with PT daily. eval RUQ pain today, source unclear.
--- NOTE | 2018-04-17 18:57 | P.PNID ---
Subjective Remarks: not tolerating CPAP + diarrhea, 3 BMs last night C diff negative / (from 04/12 and 04/17) Antibiotics: zosyn started 04/11 Allergies/Adverse Reactions: Allergies Sulfa (Sulfonamide Antibiotics) Allergy (Severe, Verified 02/15/18 05:02) Nausea also flu like symptoms Objective Vital Signs 04/16/18 19:00 04/16/18 20:00 04/16/18 20:05 Temperature 98.4 F Pulse Rate 70 75 76 Respiratory Rate 16 17 16 Blood Pressure 168/91 H 162/90 H Pulse Oximetry 97 97 96 04/16/18 21:00 04/16/18 21:32 04/16/18 22:00 Temperature Pulse Rate 78 80 Respiratory Rate 17 17 16 Blood Pressure 166/87 H 164/89 H Pulse Oximetry 96 97 04/16/18 23:00 04/17/18 00:00 04/17/18 01:00 Temperature Pulse Rate 77 78 83 Respiratory Rate 16 17 16 Blood Pressure 158/84 H 153/81 H 157/85 H Pulse Oximetry 97 95 96 04/17/18 01:10 04/17/18 02:00 04/17/18 02:41 Temperature Pulse Rate 88 84 81 Respiratory Rate 18 16 Blood Pressure 173/91 H 161/84 H Pulse Oximetry 97 96 96 04/17/18 03:00 04/17/18 03:11 04/17/18 03:35 Temperature Pulse Rate 86 85 84 Respiratory Rate 17 Blood Pressure 180/88 H 173/89 H 170/85 H Pulse Oximetry 96 93 L 96 04/17/18 04:00 04/17/18 04:06 04/17/18 05:00 Temperature 98.7 F Pulse Rate 74 74 74 Respiratory Rate 17 18 Blood Pressure 147/85 H 156/84 H Pulse Oximetry 96 92 L 96 04/17/18 06:00 04/17/18 07:00 04/17/18 07:42 Temperature Pulse Rate 74 79 77 Respiratory Rate 17 14 19 Blood Pressure 161/77 H 165/81 H Pulse Oximetry 96 94 L 94 L 04/17/18 08:00 04/17/18 09:00 04/17/18 10:00 Temperature 98.7 F Pulse Rate 76 79 86 Respiratory Rate 18 21 20 Blood Pressure 161/88 H 170/83 H 170/83 H Pulse Oximetry 95 95 93 L 04/17/18 11:00 04/17/18 11:18 04/17/18 12:00 Temperature 98.9 F Pulse Rate 84 89 79 Respiratory Rate 20 18 18 Blood Pressure 155/84 H 172/91 H Pulse Oximetry 95 97 91 L 04/17/18 13:00 04/17/18 14:00 04/17/18 15:00 Temperature Pulse Rate 75 74 81 Respiratory Rate 20 20 21 Blood Pressure 181/96 H 156/81 H 177/91 H Pulse Oximetry 94 L 96 97 04/17/18 15:44 04/17/18 16:00 04/17/18 17:00 Temperature 98.9 F Pulse Rate 73 74 81 Respiratory Rate 19 20 23 Blood Pressure 147/82 H 158/76 H Pulse Oximetry 95 94 L 92 L 04/17/18 18:00 Temperature Pulse Rate 88 Respiratory Rate 18 Blood Pressure 176/85 H Pulse Oximetry 95 Intake & Output 04/16/18 04/17/18 04/17/18 18:59 06:59 18:59 Intake Total 2827 / 2827 1701 / 1701 2637 / 2637 Output Total 1200 / 1200 800 / 800 670 / 670 Balance 1627 / 1627 901 / 901 1966 / 1966 Weight 90.9 kg Intake: IV 1575 / 1575 200 / 200 200 / 200 Precedex Inj 1,000 MCG In NS 165 / 165 Inj 240 ML @ 0.2 MCG/KG/HR 4.31 mls/hr IV.CONT TITRATE PRN Rx# :[id number] D5W/1/2 NS Inj 1,000 ML @ 84 950 / 950 mls/hr IV.CONT .[id number] GIGI Rx# :[id number] Zosyn 4.5 GM Premix 4.5 gm In 200 / 200 200 / 200 200 / 200 100 ml @ 200 mls/hr IV.SIG Q6H GIGI Rx#:[id number] Potassium Phosphate Inj 30 MMOL 260 / 260 In NS Inj 250 ML @ 42 mls/hr IV.SIG UNSCH PRN Rx#:[id number] Tube Feeding 172 / 172 601 / 601 517 / 517 Water Bolus Amount 180 / 180 900 / 900 Free Water Amount 900 / 900 900 / 900 900 / 900 Other 120 / 120 Output: Stool 500 / 500 120 / 120 Urine Amount (Catheter) 700 / 700 800 / 800 550 / 550 Condom 700 / 700 800 / 800 550 / 550 Gastric Drainage 0 / 0 L nare Dobbhoff 0 / 0 Other: Date of Last Bowel Movement 04/16/18 04/17/18 04/17/18 04/11/18 18:15 Blood - Peripheral Aerobic Blood Culture - Final No growth in 5 days 04/11/18 18:15 Blood - Peripheral Anaerobic Blood Culture - Final No growth in 5 days 04/11/18 18:00 Blood - Peripheral Aerobic Blood Culture - Final No growth in 5 days 04/11/18 18:00 Blood - Peripheral Anaerobic Blood Culture - Final No growth in 5 days 04/10/18 17:45 Blood - Peripheral Aerobic Blood Culture - Final No growth in 5 days 04/10/18 17:45 Blood - Peripheral Anaerobic Blood Culture - Final No growth in 5 days 04/10/18 17:50 Blood - Peripheral Aerobic Blood Culture - Final No growth in 5 days 04/10/18 17:50 Blood - Peripheral Anaerobic Blood Culture - Final No growth in 5 days Lab - Hematology Results 04/16/18 04/17/18 04:05 04:46 WBC 10.6 10.1 RBC 3.19 L 3.34 L Hgb 10.2 L 10.4 L Hct 29.8 L 30.9 L MCV 93.3 92.4 MCH 32.1 31.2 MCHC 34.4 33.8 RDW 14.4 14.6 Plt Count 279 305 MPV 9.5 9.7 Lab - Chemistry Results 04/16/18 04/16/18 04/16/18 00:15 04:05 04:05 Sodium 150 H Potassium 3.5 3.3 L Chloride 119 H Carbon Dioxide 23.4 Anion Gap 8 BUN 14 Creatinine 0.85 Estimated GFR Greater than 89 Random Glucose 135 H Calcium 7.5 L Phosphorus 1.7 L Magnesium 2.2 Total Bilirubin 0.5 Direct Bilirubin 0.2 Indirect Bilirubin 0.3 AST 54 H ALT 110 H Alkaline Phosphatase 83 Total Protein 5.6 L Albumin 2.2 L Amylase 166 H Lipase 690 H 04/16/18 04/16/18 04/17/18 14:20 20:05 04:46 Sodium 145 Potassium 3.2 L 3.7 3.1 L Chloride 113 H Carbon Dioxide 24.9 Anion Gap 7 BUN 12 Creatinine 0.76 Estimated GFR Greater than 89 Random Glucose 120 H Calcium 8.0 L Phosphorus 2.2 L 2.2 L Magnesium 2.2 Total Bilirubin Direct Bilirubin Indirect Bilirubin AST ALT Alkaline Phosphatase Total Protein Albumin Amylase Lipase 04/17/18 15:57 Sodium Potassium 3.0 L Chloride Carbon Dioxide Anion Gap BUN Creatinine Estimated GFR Random Glucose Calcium Phosphorus 3.0 Magnesium Total Bilirubin Direct Bilirubin Indirect Bilirubin AST ALT Alkaline Phosphatase Total Protein Albumin Amylase Lipase Imaging: ITS Impressions Head MRI 03/31/18 00:00 CONCLUSION: Negative exam Head CT 03/31/18 12:16 CONCLUSION: 1. Negative CT Head non contrast. . Chest CTA 03/31/18 14:39 CONCLUSION: 1. Bibasilar atelectatic changes, left greater than right. No confluent infiltrate. 2. No pulmonary embolus. 3. Atherosclerotic calcification of the coronary arteries. Cervical Spine MRI 03/31/18 16:17 CONCLUSION: 1. Status post fusion at the C5-C6 level. There is susceptibility artifact from the hardware. 2. A significant area of stenosis in the thecal sac is not seen. 3. Facet hypertrophy seen throughout with scattered areas of neural foraminal narrowing as described above. 4. The patient is intubated with fluid in the hypopharynx, laryngeal pharynx, and upper trachea around the ET tube and above the tracheal ET tube cuff. 5. The does appear to be some mild soft tissue swelling in the prevertebral region best seen on the sagittal images. Abdomen/Bladder Ultrasound 04/10/18 08:05 CONCLUSION: 1. Probable complex cyst coming off the right lower pole kidney appears smaller since 2017 CT examination of the abdomen. Chest CT 04/11/18 00:00 CONCLUSION: 1. Patchy nodular opacities in the right lower lobe coalescing posteriorly most consistent with an infectious etiology such as bronchopneumonia. 2. Near complete left lower lobe collapse and dense airspace consolidation in the posterior right lower lobe. Differential considerations include aspiration. 3. Coronary artery cavitations. Abdomen/Pelvis CT 04/11/18 13:06 CONCLUSION: 1. Bilateral lower lobe consolidations left greater than right. Distended small and large bowel without evidence of wall thickening or obstruction. NG tube coiled within the stomach. Chest X-Ray 04/15/18 05:00 CONCLUSION: Dobbhoff tube looped in the stomach with the tip redirected into the esophagus and sitting at the thoracic inlet level. Mild bibasilar areas of consolidation or atelectasis. Abdomen X-Ray 04/15/18 05:07 CONCLUSION: Dobbhoff tube tip now seen in the stomach. Gallbladder Ultrasound 04/16/18 00:00 CONCLUSION: 1. Minimal prominence of the gallbladder wall. No pericholecystic fluid is seen no stones are evident. 2. Increased echogenicity of the liver suggesting fatty infiltration. Physical Exam: GENERAL: NAD awake, unint'd SKIN: Warm and dry. HEAD: Atraumatic. Normocephalic. EYES: Pupils equal and round. No scleral icterus. No injection or drainage. ENT: No nasal bleeding or discharge. Mucous membranes pink and moist. NECK: Trachea midline. No JVD. CARDIOVASCULAR: Regular tachycardia and gallop (?S 3) RESPIRATORY: No accessory muscle use. Clear to auscultation. Breath sounds equal, decreased bilaterally. GASTROINTESTINAL: Abdomen soft, non-tender, nondistended. Hepatic and splenic margins not palpable. MUSCULOSKELETAL: Extremities without clubbing, cyanosis, + mild edema. No obvious deformities. NEUROLOGICAL: lethargic, arousable PSYCHIATRIC: calm Assessment and Plan - Plan C spine fusion Hypercapnia difficulty breathing developped after surgery Kleb oxytoca PNA signs of PNA resolved cliniclaly and radiologically Acute VDRF, improving fever, low grade: resolved No e/o [employer] infx New leukocytosis - resolved ARF - resolved Aspiration PNA today's CXR Minimal bibasilar densities, Sepsis, improving abx associated diarrhea C.diff negative 2/2 complete zosyn on Apr 19 dw family @ b/s breezy CHAUDHARI
[2018-04-18] MEDS: Oral Hygiene Kit OROPHARYNG SCH ×4 (00:12→15:56)
[2018-04-18] MEDS: Artificial Tears Opth Drops 15 ML Bottle EACH EYE SCH ×3 (00:12→16:00)
[2018-04-18] MEDS: Piperacil/Tazo 4.5 GM Premix 4.5 GM/100 ML BAG IV.SIG SCH ×4 (02:18→21:17)
[2018-04-18] MEDS: Labetalol HCl Inj 20 MG/4 ML Vial IV.PUSH PRN ×2 (02:22→11:50)
[2018-04-18] MEDS: hydrALAZINE 50 MG Tablet PO SCH ×3 (05:39→21:20)
[2018-04-18] MEDS: Levothyroxine 125 MCG Tablet PO SCH (05:39)
[2018-04-18 05:58] LABS: Hematocrit 28.3 % (39.0-51.0); Hemoglobin 9.6 gm/dL (13.0-17.0); Mean Corpuscular Hemoglobin 31.2 pg (27.0-34.0); Mean Corpuscular Volume 91.8 fL (80.0-100.0); Mean Platelet Volume 9.6 fL (7.0-11.0); Platelet Count 317 th/mm3 (150-450); Red Blood Count 3.08 mil/mm3 (4.50-5.90); Red Cell Distribution Width 14.6 % (11.6-17.2); White Blood Count 9.5 th/mm3 (4.0-11.0)
[2018-04-18 06:25] LABS: Anion Gap 9 meq/L (5-15)
[2018-04-18 06:28] LABS: Blood Urea Nitrogen 15 mg/dL (7-18); Calcium 7.9 mg/dL (8.5-10.1); Carbon Dioxide 25.1 meq/L (21.0-32.0); Chloride 111 meq/L (98-107); Glomerular Filtration Rate Greater Than 89 mL/min (>89); Glucose,Random 139 mg/dL (74-106); Magnesium 2.2 mg/dL (1.5-2.5); Phosphorus 2.4 mg/dL (2.5-4.9); Sodium 145 meq/L (136-145)
[2018-04-18 06:32] LABS: Potassium 2.7 meq/L (3.5-5.1)
[2018-04-18] MEDS: Potassium Phosphate Inj 30 MMOL in Sodium Chlor 0.9% Inj 250 ML IV.SIG PRN (06:46)
[2018-04-18] MEDS ORDERED: Potassium Chloride Liq 20 MEQ/15 ML UDC PO ONE (08:15)
--- NOTE | 2018-04-18 08:40 | P.PNCC ---
Subjective Subjective Remarks/Hospital Course: This 67-year-old came into the emergency room today with his and daughter. On 02/13/2018, he had a microdiscectomy, C5-C6, by Dr. Schwarz. He was discharged home the next day. A few days after, he had not been feeling well, short of breath, disoriented, generally weak, symptoms were getting worse, disorientation was worse. He was referred to emergency department by his primary care physician for an evaluation. In the ED he was found to be in severe hypercarbic respiratory acidosis and was intubated by ED attending. 04/01: CO2 retention corrected. Remains mildly alkalotic due to chronic CO2 elevation. PH normalized. Still requiring vasopressor therapy with norepinephrine. Broad-spectrum antibiotic coverage started. Lumbar puncture performed with opening pressure 20 and crystal-clear fluid, sent for cell counts , chemistries and culture. HSV included. One extra tube sent for future studies if necessary. Ammonia level 71 - repeat daily. 04/02: CSF appears benign. Repeat ammonia level normal. Gamma GT normal. Cardiac echo estimated of 45% ejection fraction requires a little additional investigation -patient has been chronically short of breath for several weeks now. Leukocytosis and left shift persists. Gram-positive cocci and white cells seen in sputum. This man clearly became acutely and critically ill - exact cause still eludes us. 04/03: Leukocytosis improved. Remains quite rigid when stimulated. Continues to move 4 limbs with purpose and follows commands with 4 limbs. Sputum demonstrates white blood cells and gram-negative rods. 04/04: Improved color and perfusion. Extubated yesterday afternoon but failed after about 45 minutes -developed somnolence then obtundation, appeared to be having difficulty taking a breath, concern for vocal cord dysfunction. On reintubation the cord edges were irregular but otherwise normal in appearance. I could not assess cord function as patient was not alert enough to cooperate with commands. We will definitely pursue possibilities of vocal cord dysfunction and or phrenic nerve paralysis once we get him extubated. Ideally, a sniff test under fluoroscopy would demonstrate any paradoxical diaphragm motion. 04/05: Afebrile. Neurologically appears intact. Daughter concerned about "appears distant" however on 40 mcg/kg/min of propofol and 250 mcg an hour fentanyl. No bowel movement since admission. Tube feeding only at 20 cc an hour. 04/06: Afebrile. Neurologically intact. Following commands.. Positive BM. Labile blood pressures yesterday. Replace potassium currently. 04/07: Patient writing notes today. Chest x-ray clear. Elevated left diaphragm , probably dysfunctional. Continued encephalopathy and generalized weakness chris very concerning. We will try Aminophyllin today to see if we can get some diaphragm and central nervous system stimulation. 04/08: Started on theophylline yesterday. Check level in a.m. Will attempt PSV trial today. Noted pulmonology requests possible T-bar with ABG when appropriate. Afebrile. 04/09: T-max 100. theophylline currently 3.7. Currently on CPAP trials. 02/18. 45%. Check ABG at 10 today. Desaturated yesterday currently back at 40%. 04/10: Resting in bed. Episode of nausea overnight. Negative workup. Evaluated positive BM 04/08. Patient more agitated overnight. Propofol discontinued due to hypotension. Currently on fentanyl drip. Theophylline. Creatinine currently 2.0 we will consult nephrology. Discontinue lisinopril. Receiving one half normal saline bolus currently. 04/11: T-max 101.1. Increasing O2 records.Increasing white blood cell count. For the cuff is overinflated to palpate the vocal cords. Leak by examination. Will change ET tube in place central line today. Empirically start antibiotics for aspiration. Not tolerating tube feeds and currently to low inner wall suction. Check KUB after ET tube exchange and central line placement. Restart metoclopramide. Positive BMs. 04/12: Yesterday, CT thorax revealed collapsed left lower lung. Status post bronchoscopy with reinflation of lung. Better saturations today. Continues with small and large bowel colonic distention. Right: 11 cm. GI is following. Might need decompression. Current orogastric tube to low intermittent wall suction. 04/13: Improved small and large bowel colonic distention. Down to 8 cm long family discussion. We will perform percutaneous tracheostomy and PEG tube as well. Request second neurological opinion. In better spirits today. 04/14: no changes. awakens and follows commands. plan for trach today. 22: s/p trach yesterday. awake and alert. calm. looks more comfortable than yesterday. did not tolerate PRVC today, but tolerates PSV with high support (24/ 5/35%). SUBJECTIVE: 2/3: complaining of new RUQ pain. ?+Fry's sign. labs wnl today. no other complaints. denies nausea or vomiting. still has diarrhea, but this is slowing down after holding bowel regimen. ROS otherwise negative. 04/17: Gallbladder ultrasound appears benign. No new complaints. 04/18: Remains on the vent. Tolerated approximately 7 hours of CPAP yesterday with high PS. Still complaining of diarrhea. Most likely induced by tube feeds. Potassium remains low at 2.7. Potassium replacement in addition to protocol given followed by KCl 20 Luzma twice daily scheduled. Probably GI loss Objective Vital Signs / I&O: Vital Signs 04/17/18 09:00 04/17/18 10:00 04/17/18 11:00 Temperature Pulse Rate 79 86 84 Respiratory Rate 21 20 20 Blood Pressure 170/83 H 170/83 H 155/84 H Pulse Oximetry 95 93 L 95 04/17/18 11:18 04/17/18 12:00 04/17/18 13:00 Temperature 98.9 F Pulse Rate 89 79 75 Respiratory Rate 18 18 20 Blood Pressure 172/91 H 181/96 H Pulse Oximetry 97 91 L 94 L 04/17/18 14:00 04/17/18 15:00 04/17/18 15:44 Temperature Pulse Rate 74 81 73 Respiratory Rate 20 21 19 Blood Pressure 156/81 H 177/91 H Pulse Oximetry 96 97 95 04/17/18 16:00 04/17/18 17:00 04/17/18 18:00 Temperature 98.9 F Pulse Rate 74 81 88 Respiratory Rate 20 23 18 Blood Pressure 147/82 H 158/76 H 176/85 H Pulse Oximetry 94 L 92 L 95 04/17/18 18:29 04/17/18 18:42 04/17/18 19:00 Temperature Pulse Rate 81 71 73 Respiratory Rate 17 18 18 Blood Pressure 169/79 H 146/80 H 147/79 H Pulse Oximetry 95 97 95 04/17/18 20:00 04/17/18 20:54 04/17/18 21:00 Temperature 98.3 F Pulse Rate 76 78 Respiratory Rate 19 Blood Pressure 167/92 H 168/89 H Pulse Oximetry 97 99 98 04/17/18 21:19 04/17/18 22:00 04/17/18 23:00 Temperature Pulse Rate 83 74 82 Respiratory Rate 19 Blood Pressure 148/80 H 168/90 H Pulse Oximetry 98 100 04/18/18 00:00 04/18/18 00:14 04/18/18 00:18 Temperature 99.2 F Pulse Rate 77 81 Respiratory Rate 17 17 Blood Pressure 152/72 H Pulse Oximetry 100 99 04/18/18 01:00 04/18/18 01:24 04/18/18 02:00 Temperature Pulse Rate 79 82 72 Respiratory Rate Blood Pressure 171/82 H 157/84 H 190/84 H Pulse Oximetry 99 100 100 04/18/18 03:00 04/18/18 04:00 04/18/18 04:09 Temperature 99.0 F Pulse Rate 69 70 Respiratory Rate 16 Blood Pressure 153/79 H 174/84 H Pulse Oximetry 100 100 100 04/18/18 04:12 04/18/18 05:00 04/18/18 06:00 Temperature Pulse Rate 84 83 71 Respiratory Rate 16 Blood Pressure 146/79 H Pulse Oximetry 100 97 04/18/18 07:39 Temperature Pulse Rate 78 Respiratory Rate 17 Blood Pressure Pulse Oximetry 98 Intake & Output 04/17/18 04/18/18 04/18/18 18:59 06:59 18:59 Intake Total 2637 / 2637 1795 / 1795 Output Total 670 / 670 1000 / 1000 Balance 1966 / 1966 795 / 795 Weight 91.9 kg Intake: IV 200 / 200 200 / 200 Zosyn 4.5 GM Premix 4.5 gm In 200 / 200 200 / 200 100 ml @ 200 mls/hr IV.SIG Q6H [facility] Rx#:[id number] Tube Feeding 517 / 517 635 / 635 Tube Irrigant 60 / 60 Water Bolus Amount 900 / 900 Free Water Amount 900 / 900 900 / 900 Other 120 / 120 Output: Stool 120 / 120 200 / 200 Urine Amount (Catheter) 550 / 550 800 / 800 Condom 550 / 550 800 / 800 Other: Date of Last Bowel Movement 04/17/18 04/18/18 # Incontinent Bowel Movements 1 Result Diagrams: 04/18/18 04:34 04/18/18 04:34 Objective Remarks: GENERAL: 67-year-old male currently trached SKIN: Warm and dry. HEAD: Atraumatic. Normocephalic. EYES: Pupils equal and round. No scleral icterus. No injection or drainage. ENT: No nasal bleeding or discharge. Mucous membranes pink and moist. Dobbhoff tube in place NECK: Trachea midline. No JVD. Trach site without significant oozing CARDIOVASCULAR: RRR sinus. Normal S1-S2 RESPIRATORY: Raises shoulders to take spontaneous breaths. equal chest rise. GASTROINTESTINAL: Abdomen slightly protuberant/non-tender, slightly firm and tympanic. MUSCULOSKELETAL: Extremities without clubbing, cyanosis, trace to 1+ edema. No obvious deformities. NEUROLOGICAL: Follows commands and moves extremities to command. No focal deficits. Assessment and Plan - Assessment and Plan Plan: Neuro/Psych: History of anterior C5/6 microdiscectomy with fusion Not requiring any continuous sedation at this time Goal of RASS 0 Evaluated by neurosurgery/Dr. Viera. No intervention planned at this time CT brain/MRI C-spine negative EEG revealed no epileptic activity Neurology following. Recommend myasthenia gravis lab. Negative to date. Left diaphragm remains elevated, suspect not functioning well. Requesting second opinion for neurological status See neurology note. CV: Systolic heart failure unknown if acute or chronic Essential hypertension Hyperlipidemia Ejection fraction 45% on admission. Appreciate cardiac evaluation by Dr. Escobedo. No plans at this time Holding amlodipine 10 mg daily, and metoprolol tartrate 12.5 mg twice daily for hypertension Holding clonidine 0.1 twice daily and lisinopril 5 mg daily in light of hypotension/lisinopril for acute kidney injury Continue pravastatin 40 mg daily for dyslipidemia. Continue aspirin 81 mg by mouth daily. Still holding antihypertensives. Resp: Acute hypercapnic respiratory failure- now chronic Klebsiella oxytoca pneumonia PRVC ventilation. Ventilator bundle Head of bed at 30 degrees Albuterol/ipratropium aerosols every 4 hours with albuterol aerosols every 2 hours as needed dyspnea Will need sniff test to assess diaphragmatic function once off vent We will consult ENT to assess vocal cords when appropriate Appreciate pulmonary input. Spontaneous breathing trial daily. 02/08 discontinued theophylline 400 mg daily acute delirium. Noted level. 04/09 3.7 Status post bronchoscopy 04/11. Thick white purulent secretions left lower lobe suction to clear. General surgery consult for percutaneous tracheostomy 04/14: Dr. Conde daily weaning of CPAP/pressure support. GI: Gastroesophageal reflux disease Transaminitis Hypoalbuminemia Ileus new RUQ pain Tube feedin at 60 cc an hour days. At home on pantoprazole 40 mg daily. Currently on lansoprazole 30 mg daily holding bowel regimen for diarrhea add fiber to diet. RUQ ultrasound -benign Follow liver function tests, lipase : no indication for lehman catheter at this time. Endo: Hypothyroidism TSH 1.28. Continue levothyroxine 125 mg by mouth daily Sliding scale insulin if indicated to maintain euglycemia Renal: Kidney injury - acute, resolved. Avoid all nephrotoxic medications Creatinine currently 1.1 Neurology consultation for evaluation this is contrast-induced nephropathy from scans 03/31. Avoid nephrotoxic medication. Lisinopril discontinued. Accurate I's and O's Monitor urine output Heme: Normocytic anemia Leukocytosis Monitor CBC daily. Follow trends per No indication for transfusion of blood proximal to this time. ID: Klebsiella oxytoca pneumonia sputum 04/01 Completed with ceftriaxone per infectious disease. Started on piperacillin/tazobactam 04/11 due to aspiration, anticipated stop date 04/19 Lumbar puncture negative. HSV negative No growth to date on other cultures aside from sputum FEN: Hypernatremia Hypopotassemia Free water 200 cc every 6 hours. Replace electrolytes as clinically indicated per ICU electrolyte protocol. Recheck electrolytes in a.m. hypernatremia slowly improving. Start scheduled potassium replacement 20 M EQ twice daily MSK: PT evaluate and treat Access -Utilize peripheral IV. Prophylaxis -GI -lansoprazole -DVT -SCD/enoxaparin Overall impression: Remains quite weak and debilitated. We need to continue to work on nutrition and gentle weaning. OOB and working with PT daily.
[2018-04-18] MEDS: Chlorhexidine 0.12% Oral Kit 15 ML UDC OROPHARYNG SCH ×2 (08:46→21:25)
[2018-04-18] MEDS: Enoxaparin Inj 40 MG/0.4 ML Syringe SQ SCH (08:47)
[2018-04-18] MEDS: Senna/Docusate Sodium 8.6/50 MG Tablet PO SCH ×2 (08:48→21:26)
--- NOTE | 2018-04-18 11:24 | P.PN ---
Subjective Interval history: Seems to be in good spirits. On CPAP this morning FiO2 of 35%. On tube feedings and tolerating them. Was up in a chair for 3 hours yesterday Has loose stools. Physical Exam Vital signs: Vital Signs 04/17/18 12:00 04/17/18 13:00 04/17/18 14:00 Temperature 98.9 F Pulse Rate 79 75 74 Respiratory Rate 18 20 20 Blood Pressure 172/91 H 181/96 H 156/81 H Pulse Oximetry 91 L 94 L 96 04/17/18 15:00 04/17/18 15:44 04/17/18 16:00 Temperature 98.9 F Pulse Rate 81 73 74 Respiratory Rate 21 19 20 Blood Pressure 177/91 H 147/82 H Pulse Oximetry 97 95 94 L 04/17/18 17:00 04/17/18 18:00 04/17/18 18:29 Temperature Pulse Rate 81 88 81 Respiratory Rate 23 18 17 Blood Pressure 158/76 H 176/85 H 169/79 H Pulse Oximetry 92 L 95 95 04/17/18 18:42 04/17/18 19:00 04/17/18 20:00 Temperature 98.3 F Pulse Rate 71 73 76 Respiratory Rate 18 18 Blood Pressure 146/80 H 147/79 H 167/92 H Pulse Oximetry 97 95 97 04/17/18 20:54 04/17/18 21:00 04/17/18 21:19 Temperature Pulse Rate 78 83 Respiratory Rate 19 19 Blood Pressure 168/89 H Pulse Oximetry 99 98 04/17/18 22:00 04/17/18 23:00 04/18/18 00:00 Temperature 99.2 F Pulse Rate 74 82 77 Respiratory Rate Blood Pressure 148/80 H 168/90 H 152/72 H Pulse Oximetry 98 100 100 04/18/18 00:14 04/18/18 00:18 04/18/18 01:00 Temperature Pulse Rate 81 79 Respiratory Rate 17 17 Blood Pressure 171/82 H Pulse Oximetry 99 99 04/18/18 01:24 04/18/18 02:00 04/18/18 03:00 Temperature Pulse Rate 82 72 69 Respiratory Rate Blood Pressure 157/84 H 190/84 H 153/79 H Pulse Oximetry 100 100 100 04/18/18 04:00 04/18/18 04:09 04/18/18 04:12 Temperature 99.0 F Pulse Rate 70 84 Respiratory Rate 16 16 Blood Pressure 174/84 H Pulse Oximetry 100 100 04/18/18 05:00 04/18/18 06:00 04/18/18 07:39 Temperature Pulse Rate 83 71 78 Respiratory Rate 17 Blood Pressure 146/79 H Pulse Oximetry 100 97 98 Intake & Output 04/17/18 04/18/18 04/18/18 18:59 06:59 18:59 Intake Total 2637 / 2637 1795 / 1795 300 / 300 Output Total 670 / 670 1000 / 1000 Balance 1966 / 1966 795 / 795 300 / 300 Weight 91.9 kg Intake: IV 200 / 200 200 / 200 Zosyn 4.5 GM Premix 4.5 gm In 200 / 200 200 / 200 100 ml @ 200 mls/hr IV.SIG Q6H [facility] Rx#:[id number] Tube Feeding 517 / 517 635 / 635 Tube Irrigant 60 / 60 Water Bolus Amount 900 / 900 Free Water Amount 900 / 900 900 / 900 300 / 300 Other 120 / 120 Output: Stool 120 / 120 200 / 200 Urine Amount (Catheter) 550 / 550 800 / 800 Condom 550 / 550 800 / 800 Other: Date of Last Bowel Movement 04/17/18 04/18/18 04/18/18 # Incontinent Bowel Movements 1 Narrative: GENERAL: Awake and alert. No acute distress. Cooperative. On the vent HEAD: Normocephalic. Atraumatic. EYES: Pupils equal round and reactive to light bilaterally. No scleral icterus. ENT: Moist oral mucosa. ET tube in place. NECK: Trachea midline and easily palpable. No JVD seen. CHEST: Decreased breath sounds at the bases. Few wheezes. CARDIOVASCULAR: Regular rate and rhythm. EXTREMITIES: No cyanosis or edema. Squeezes hands well and moves both feet. SKIN: Warm, dry, nonjaundiced. - Urinary Catheter Management Indwelling Urethral Catheter Cath placed during this visit: yes, but has since been removed by the nurse Reason for continuing: Continue criteria not met Insertion date: 04/10/18 Insertion time: 01:45 Removal date: 04/15/18 Removal time: 17:05 Condom Cath placed during this visit: no Results - Labs CBC & Chem 7: 04/18/18 04:34 04/18/18 04:34 Laboratory Results - last 24 hr 04/17/18 04/17/18 04/18/18 11:34 15:57 04:34 WBC 9.5 RBC 3.08 L Hgb 9.6 L Hct 28.3 L MCV 91.8 MCH 31.2 MCHC 34.0 RDW 14.6 Plt Count 317 MPV 9.6 Sodium Potassium 3.0 L Chloride Carbon Dioxide Anion Gap BUN Creatinine Estimated GFR Random Glucose Calcium Phosphorus 3.0 Magnesium Stl C.difficile DNA Amp Negative St C. diff Tox Epid 027 Negative 04/18/18 04:34 WBC RBC Hgb Hct MCV MCH MCHC RDW Plt Count MPV Sodium 145 Potassium 2.7 L* Chloride 111 H Carbon Dioxide 25.1 Anion Gap 9 BUN 15 Creatinine 0.83 Estimated GFR Greater than 89 Random Glucose 139 H Calcium 7.9 L Phosphorus 2.4 L Magnesium 2.2 Stl C.difficile DNA Amp St C. diff Tox Epid 027 Assessment and Plan - Assessment (1) Respiratory failure Code(s): J96.90 - Respiratory failure, unspecified, unspecified whether with hypoxia or hypercapnia Status: Acute (2) Atelectasis Code(s): J98.11 - Atelectasis Status: Acute (3) Neck pain, chronic Code(s): M54.2 - Cervicalgia; G89.29 - Other chronic pain Status: Chronic (4) Other cervical disc degeneration at C5-C6 level Code(s): M50.322 - Other cervical disc degeneration at C5-C6 level Status: Chronic (5) Protrusion of cervical intervertebral disc Code(s): M50.20 - Other cervical disc displacement, unspecified cervical region Status: Chronic (6) Adult failure to thrive Code(s): R62.7 - Adult failure to thrive Status: Acute (7) Shortness of breath Code(s): R06.02 - Shortness of breath Status: Acute (8) Weakness generalized Code(s): R53.1 - Weakness Status: Acute (9) Acute hyponatremia Code(s): E87.1 - Hypo-osmolality and hyponatremia Status: Acute (10) Ventilator dependent Code(s): Z99.11 - Dependence on respirator [ventilator] status Status: Acute - Plan 1 CPAP during the day 09/25 with FiO2 of 35% 2 wean FiO2 to keep sats greater than 92 3. Stool for C. difficile 4. DuoNeb nebs every 6 hours as needed 5. Stop sedation 6. Tracheal lavage and suction as needed 7. Continue Lovenox 40 mg subcu daily 8. Continue antibiotics per ID 9. CBC BMP in a.m. 10. Placed on AC rate of 12 at night 11. PT evaluation 12. Up in chair as tolerated
[2018-04-18] MEDS: Psyllium Husk SF 3.4 GM in 5.8 GM Packet NG/OG SCH (11:53)
--- NOTE | 2018-04-18 13:38 | P.DIET ---
Nutritional Evaluation Type of nutrition evaluation: follow-up Nutrition consult regarding: Tube Feeding Objective - Diagnosis Generalized Weakness, Failure to Thrive - Objective % IBW: 102 (IBW = 184#) Body Weight Used for Calculations: Actual (84.9 kg) Energy Needs - Lower Range (kCal/kg): 25 Energy Needs - Upper Range (kCal/kg): 30 Lower Limit kCal/kg (kCals): 2,123 Upper Limit kCal/kg (kCals): 2,547 Lower Limit Protein Factor (Grams per Kg): 1.2 Upper Limit Protein Factor (Grams per Kg): 1.6 Lower Protein Needs (Protein): 102 Upper Protein Needs (Protein): 136 Dietitian Reviewed in Medical Record: Curent medications, Intake & Output, Labs , Medical history, Tube feeding Diet Order: NPO Objective Comments: Meds include Synthroid 02/13 microdiscectomy C5-6 04/03 re-intubated 45 mins after extubation Assessment Assessment: Pt is at high nutrition risk 2' to his need for TFing. Current order is for Nepro @ 60 mls/hr goal and the pt is receiving this. Although pt does not need Nepro specialty formula, it is adequately meeting needs by providing 2376 kcals , and 107 gms protein. TF run time is 22 hours. Pt has reported loose stools. Please note: TF must be held one hour before and after Synthroid is given. Recommendations: Vital 1.5 @ 65 mls/hr x 22 hours Beneprotein 1 pack tid Dietitian to Monitor: Lab values, Intake & Output, Tube feeding tolerance, Weight change, Medical course
--- NOTE | 2018-04-18 17:05 | P.PNID ---
Subjective Remarks: better + diarrhea, 3 BMs last night Antibiotics: zosyn started 04/11 Allergies/Adverse Reactions: Allergies Sulfa (Sulfonamide Antibiotics) Allergy (Severe, Verified 02/15/18 05:02) Nausea also flu like symptoms Objective Vital Signs 04/17/18 18:00 04/17/18 18:29 04/17/18 18:42 Temperature Pulse Rate 88 81 71 Respiratory Rate 18 17 18 Blood Pressure 176/85 H 169/79 H 146/80 H Pulse Oximetry 95 95 97 04/17/18 19:00 04/17/18 20:00 04/17/18 20:54 Temperature 98.3 F Pulse Rate 73 76 Respiratory Rate 18 19 Blood Pressure 147/79 H 167/92 H Pulse Oximetry 95 97 99 04/17/18 21:00 04/17/18 21:19 04/17/18 22:00 Temperature Pulse Rate 78 83 74 Respiratory Rate 19 Blood Pressure 168/89 H 148/80 H Pulse Oximetry 98 98 04/17/18 23:00 04/18/18 00:00 04/18/18 00:14 Temperature 99.2 F Pulse Rate 82 77 Respiratory Rate 17 Blood Pressure 168/90 H 152/72 H Pulse Oximetry 100 100 99 04/18/18 00:18 04/18/18 01:00 04/18/18 01:24 Temperature Pulse Rate 81 79 82 Respiratory Rate 17 Blood Pressure 171/82 H 157/84 H Pulse Oximetry 99 100 04/18/18 02:00 04/18/18 03:00 04/18/18 04:00 Temperature 99.0 F Pulse Rate 72 69 70 Respiratory Rate Blood Pressure 190/84 H 153/79 H 174/84 H Pulse Oximetry 100 100 100 04/18/18 04:09 04/18/18 04:12 04/18/18 05:00 Temperature Pulse Rate 84 83 Respiratory Rate 16 16 Blood Pressure Pulse Oximetry 100 100 04/18/18 06:00 04/18/18 07:00 04/18/18 07:39 Temperature Pulse Rate 71 73 78 Respiratory Rate 18 17 Blood Pressure 146/79 H 151/72 H Pulse Oximetry 97 98 98 04/18/18 08:00 04/18/18 09:00 04/18/18 10:00 Temperature 98.1 F Pulse Rate 77 75 80 Respiratory Rate 20 23 21 Blood Pressure 166/79 H 171/86 H 138/90 Pulse Oximetry 98 98 97 04/18/18 11:00 04/18/18 11:23 04/18/18 11:52 Temperature Pulse Rate 79 80 73 Respiratory Rate 21 19 21 Blood Pressure 194/91 H 141/79 H Pulse Oximetry 96 99 97 04/18/18 12:00 04/18/18 13:00 04/18/18 14:00 Temperature 98.8 F Pulse Rate 72 73 72 Respiratory Rate 21 23 19 Blood Pressure 143/84 H 163/87 H 147/77 H Pulse Oximetry 98 98 100 04/18/18 15:00 04/18/18 15:12 Temperature Pulse Rate 72 75 Respiratory Rate 17 20 Blood Pressure 147/77 H Pulse Oximetry 98 98 Intake & Output 04/17/18 04/18/18 04/18/18 18:59 06:59 18:59 Intake Total 2637 / 2637 1795 / 1795 1060 / 1060 Output Total 670 / 670 1000 / 1000 Balance 1966 / 1966 795 / 795 1060 / 1060 Weight 91.9 kg Intake: IV 200 / 200 200 / 200 460 / 460 Zosyn 4.5 GM Premix 4.5 gm In 200 / 200 200 / 200 200 / 200 100 ml @ 200 mls/hr IV.SIG Q6H GIGI Rx#:[id number] Potassium Phosphate Inj 30 MMOL 260 / 260 In NS Inj 250 ML @ 42 mls/hr IV.SIG UNSCH PRN Rx#:[id number] Tube Feeding 517 / 517 635 / 635 Tube Irrigant 60 / 60 Water Bolus Amount 900 / 900 Free Water Amount 900 / 900 900 / 900 600 / 600 Other 120 / 120 Output: Stool 120 / 120 200 / 200 Urine Amount (Catheter) 550 / 550 800 / 800 Condom 550 / 550 800 / 800 Other: Date of Last Bowel Movement 04/17/18 04/18/18 04/18/18 # Incontinent Bowel Movements 1 04/11/18 18:00 Bronchial Washings - Left Lower Lobe Fungal Smear - Final No fungal elements seen 04/11/18 18:00 Bronchial Washings - Left Lower Lobe Fungal Culture - Preliminary No growth in 1 week 04/11/18 18:00 Bronchial Washings - Left Lower Lobe Acid Fast Bacilli Smear - Final No acid fast bacilli seen 04/11/18 18:00 Bronchial Washings - Left Lower Lobe Mycobacterial Culture - Preliminary No growth in 1 week 04/11/18 18:15 Blood - Peripheral Aerobic Blood Culture - Final No growth in 5 days 04/11/18 18:15 Blood - Peripheral Anaerobic Blood Culture - Final No growth in 5 days 04/11/18 18:00 Blood - Peripheral Aerobic Blood Culture - Final No growth in 5 days 04/11/18 18:00 Blood - Peripheral Anaerobic Blood Culture - Final No growth in 5 days Lab - Hematology Results 04/17/18 04/18/18 04:46 04:34 WBC 10.1 9.5 RBC 3.34 L 3.08 L Hgb 10.4 L 9.6 L Hct 30.9 L 28.3 L MCV 92.4 91.8 MCH 31.2 31.2 MCHC 33.8 34.0 RDW 14.6 14.6 Plt Count 305 317 MPV 9.7 9.6 Lab - Chemistry Results 04/16/18 04/17/18 04/17/18 20:05 04:46 15:57 Sodium 145 Potassium 3.7 3.1 L 3.0 L Chloride 113 H Carbon Dioxide 24.9 Anion Gap 7 BUN 12 Creatinine 0.76 Estimated GFR Greater than 89 Random Glucose 120 H Calcium 8.0 L Phosphorus 2.2 L 2.2 L 3.0 Magnesium 2.2 04/18/18 04/18/18 04:34 14:13 Sodium 145 Potassium 2.7 L* 3.2 L Chloride 111 H Carbon Dioxide 25.1 Anion Gap 9 BUN 15 Creatinine 0.83 Estimated GFR Greater than 89 Random Glucose 139 H Calcium 7.9 L Phosphorus 2.4 L Magnesium 2.2 Imaging: ITS Impressions Head MRI 03/31/18 00:00 CONCLUSION: Negative exam Head CT 03/31/18 12:16 CONCLUSION: 1. Negative CT Head non contrast. . Chest CTA 03/31/18 14:39 CONCLUSION: 1. Bibasilar atelectatic changes, left greater than right. No confluent infiltrate. 2. No pulmonary embolus. 3. Atherosclerotic calcification of the coronary arteries. Cervical Spine MRI 03/31/18 16:17 CONCLUSION: 1. Status post fusion at the C5-C6 level. There is susceptibility artifact from the hardware. 2. A significant area of stenosis in the thecal sac is not seen. 3. Facet hypertrophy seen throughout with scattered areas of neural foraminal narrowing as described above. 4. The patient is intubated with fluid in the hypopharynx, laryngeal pharynx, and upper trachea around the ET tube and above the tracheal ET tube cuff. 5. The does appear to be some mild soft tissue swelling in the prevertebral region best seen on the sagittal images. Abdomen/Bladder Ultrasound 04/10/18 08:05 CONCLUSION: 1. Probable complex cyst coming off the right lower pole kidney appears smaller since 2017 CT examination of the abdomen. Chest CT 04/11/18 00:00 CONCLUSION: 1. Patchy nodular opacities in the right lower lobe coalescing posteriorly most consistent with an infectious etiology such as bronchopneumonia. 2. Near complete left lower lobe collapse and dense airspace consolidation in the posterior right lower lobe. Differential considerations include aspiration. 3. Coronary artery cavitations. Abdomen/Pelvis CT 04/11/18 13:06 CONCLUSION: 1. Bilateral lower lobe consolidations left greater than right. Distended small and large bowel without evidence of wall thickening or obstruction. NG tube coiled within the stomach. Chest X-Ray 04/15/18 05:00 CONCLUSION: Dobbhoff tube looped in the stomach with the tip redirected into the esophagus and sitting at the thoracic inlet level. Mild bibasilar areas of consolidation or atelectasis. Abdomen X-Ray 04/15/18 05:07 CONCLUSION: Dobbhoff tube tip now seen in the stomach. Gallbladder Ultrasound 04/16/18 00:00 CONCLUSION: 1. Minimal prominence of the gallbladder wall. No pericholecystic fluid is seen no stones are evident. 2. Increased echogenicity of the liver suggesting fatty infiltration. Physical Exam: GENERAL: NAD awake, unint'd SKIN: Warm and dry. HEAD: Atraumatic. Normocephalic. EYES: Pupils equal and round. No scleral icterus. No injection or drainage. ENT: No nasal bleeding or discharge. Mucous membranes pink and moist. NECK: Trach in place. No JVD. CARDIOVASCULAR: Regular , no murmurs, rubs or gallops RESPIRATORY: No accessory muscle use. Clear to auscultation. Breath sounds equal, decreased bilaterally. GASTROINTESTINAL: Abdomen soft, non-tender, nondistended. Hepatic and splenic margins not palpable. MUSCULOSKELETAL: Extremities without clubbing, cyanosis, + mild edema. No obvious deformities. NEUROLOGICAL: awake, alert PSYCHIATRIC: calm Assessment and Plan - Plan C spine fusion Hypercapnia difficulty breathing developped after surgery Kleb oxytoca PNA signs of PNA resolved cliniclaly and radiologically Acute VDRF, improving fever, low grade: resolved No e/o [employer] infx New leukocytosis - resolved ARF - resolved Aspiration PNA today's CXR Minimal bibasilar densities, Sepsis, improving abx associated diarrhea C.diff negative / complete zosyn on Apr 19
[2018-04-18] MEDS: Potassium Chloride Liq 20 MEQ/15 ML UDC PO SCH (21:25)
[2018-04-19] MEDS: Artificial Tears Opth Drops 15 ML Bottle EACH EYE SCH ×3 (00:27→18:23)
[2018-04-19] MEDS: Oral Hygiene Kit OROPHARYNG SCH ×4 (00:41→15:20)
[2018-04-19] MEDS: Piperacil/Tazo 4.5 GM Premix 4.5 GM/100 ML BAG IV.SIG SCH ×4 (02:43→22:03)
--- NOTE | 2018-04-19 04:40 | XR ---
EXAM DATE: 04/19/2018 3:52 AM EST AGE/SEX: 67 years / Male INDICATIONS: Respiratory disease. CLINICAL DATA: This is the patient's subsequent encounter. Patient reports that signs and symptoms h ave been present for 3 weeks and indicates a pain score of Nonresponsive. MEDICAL/SURGICAL HISTORY: Congestive heart failure. Gastroesophageal reflux disease. Hypothyr oidism. Sepsis. Hypercapnia. Renal failure. Anemia. Leukocytosis. . Cervical fusion. COMPARISON: [facility] [place], CHEST 1V SINGLE AP, 04/15/2018. . FINDINGS: Portable AP view of the chest demonstrates a normal-sized cardiac silhouette. Tracheostomy and feedin g tube remain present. The weighted feeding tube tip overlies the stomach. No pneumothorax is visuali zed. There is a stable left basilar pleural-parenchymal opacity. Right lung is clear. Bones demonstra te no acute finding. CONCLUSION: 1. Stable left basilar opacity likely representing either atelectasis or airspace consolidation. 2. Feeding tube distal tip overlies the stomach. Electronically signed by: Miguel Feliz MD Board Certified Radiologist 04/19/2018 4:38 AM EST
[2018-04-19 05:26] LABS: Hematocrit 27.9 % (39.0-51.0); Hemoglobin 9.5 gm/dL (13.0-17.0); Mean Corpuscular HGB Conc 33.9 % (32.0-36.0); Mean Corpuscular Hemoglobin 31.1 pg (27.0-34.0); Mean Corpuscular Volume 91.7 fL (80.0-100.0); Mean Platelet Volume 9.4 fL (7.0-11.0); Platelet Count 363 th/mm3 (150-450); Red Blood Count 3.05 mil/mm3 (4.50-5.90); Red Cell Distribution Width 14.9 % (11.6-17.2); White Blood Count 9.5 th/mm3 (4.0-11.0)
[2018-04-19 05:52] LABS: Alanine Aminotransferase 72 U/L (12-78); Albumin 2.2 g/dL (3.4-5.0); Alkaline Phosphatase 78 U/L (45-117); Anion Gap 10 meq/L (5-15); Aspartate Aminotransferase 23 U/L (15-37); Blood Urea Nitrogen 15 mg/dL (7-18); Calcium 7.8 mg/dL (8.5-10.1); Carbon Dioxide 24.9 meq/L (21.0-32.0); Chloride 109 meq/L (98-107); Glomerular Filtration Rate Greater Than 89 mL/min (>89); Glucose,Random 114 mg/dL (74-106); Magnesium 2.1 mg/dL (1.5-2.5); Phosphorus 2.4 mg/dL (2.5-4.9); Sodium 144 meq/L (136-145); Total Protein 5.7 g/dL (6.4-8.2)
[2018-04-19 05:57] LABS: Potassium 2.4 meq/L (3.5-5.1)
[2018-04-19] MEDS: Potassium Chloride Liq 20 MEQ/15 ML UDC PO SCH ×4 (06:34→22:02)
[2018-04-19] MEDS: hydrALAZINE 50 MG Tablet PO SCH ×3 (06:34→22:01)
[2018-04-19] MEDS: Levothyroxine 125 MCG Tablet PO SCH (06:35)
[2018-04-19] MEDS: Chlorhexidine 0.12% Oral Kit 15 ML UDC OROPHARYNG SCH ×2 (07:54→22:45)
[2018-04-19] MEDS: Enoxaparin Inj 40 MG/0.4 ML Syringe SQ SCH (08:01)
[2018-04-19] MEDS: Senna/Docusate Sodium 8.6/50 MG Tablet PO SCH (08:02)
[2018-04-19] MEDS: Psyllium Husk SF 3.4 GM in 5.8 GM Packet NG/OG SCH (08:41)
[2018-04-19] MEDS ORDERED: Potassium Chloride Liq 20 MEQ/15 ML UDC PO ONE (09:15)
[2018-04-19] MEDS: Potassium Phosphate Inj 30 MMOL in Sodium Chlor 0.9% Inj 250 ML IV.SIG PRN (09:23)
--- NOTE | 2018-04-19 09:39 | P.PNNEU ---
Subjective Active Medications: Active Medications Acetaminophen (Tylenol) 650 mg PO Q6H PRN PRN Reason: Temp > 100.4 Last Admin: 04/16/18 21:02 Dose: 650 mg Albuterol (Duoneb Neb (Je)) 1 ampul NEB Q4HR NEB [facility] Last Admin: 04/19/18 07:50 Dose: 1 ampul Albuterol (Albuterol Neb (Prn)) 2.5 mg NEB Q2HR NEB PRN PRN Reason: DYSPNEA Artificial Tears (Tears Naturale Opth Drops) 1 drop EACH EYE Q8H [facility] Last Admin: 04/19/18 08:02 Dose: 1 drop Aspirin (Aspirin Chew) 81 mg PO DAILY [facility] Last Admin: 04/19/18 08:01 Dose: 81 mg Chlorhexidine Gluconate (Peridex 0.12% Oral Kit) 15 ml OROPHARYNG BID@0800, 1999 [facility] Last Admin: 04/19/18 07:54 Dose: 15 ml Enoxaparin Sodium (Lovenox Inj) 40 mg SQ DAILY [facility] Last Admin: 04/19/18 08:01 Dose: 40 mg Hydralazine HCl (Apresoline) 50 mg PO Q8HR [facility] Last Admin: 04/19/18 06:34 Dose: 50 mg Magnesium Sulfate 4 gm/ Sodium (Chloride) 100 mls @ 50 mls/hr IV.SIG UNSCH PRN PRN Reason: For Magnesium 0.9 - 1.1 mg/dL Potassium Chloride (Kcl 40 Meq Premix Inj) 40 meq in 100 mls @ 25 mls/hr IV.SIG Q2H PRN PRN Reason: For Potassium 2.8 - 3.2 mEq/L Last Infusion: 04/15/18 06:37 Dose: Infused Potassium Chloride (Kcl 20 Meq Premix Inj) 20 meq in 100 mls @ 50 mls/hr IV.SIG Q2H PRN PRN Reason: For Potassium 3.3 - 3.5 mEq/L Potassium Chloride (Kcl 40 Meq Premix Inj) 40 meq in 100 mls @ 25 mls/hr IV.SIG UNSCH PRN PRN Reason: For Potassium 3.3 - 3.5 mEq/L Last Infusion: 04/12/18 10:35 Dose: Infused Potassium Chloride (Kcl 20 Meq Premix Inj) 20 meq in 100 mls @ 50 mls/hr IV.SIG Q2H PRN PRN Reason: For Potassium 2.8 - 3.2 mEq/L Potassium Phosphate 30 mmol/ (Sodium Chloride) 260 mls @ 42 mls/hr IV.SIG UNSCH PRN PRN Reason: SEE LABEL COMMENTS Last Admin: 04/19/18 09:23 Dose: 42 mls/hr Magnesium Sulfate 2 gm/ Sodium (Chloride) 100 mls @ 50 mls/hr IV.SIG UNSCH PRN PRN Reason: For Magnesium 1.2 - 1.6 mg/dL Sodium Phosphate 30 mmol/ (Sodium Chloride) 260 mls @ 42 mls/hr IV.SIG UNSCH PRN PRN Reason: For Phosphorus < 2.5 mg/dL Piperacillin/Tazobactam/Dextrose (Zosyn 4.5 Gm Premix) 4.5 gm in 100 mls @ 200 mls/hr IV.SIG Q6H [facility] Stop: 04/19/18 23:59 Last Infusion: 04/19/18 09:11 Dose: Infused Labetalol HCl (Trandate Inj) 20 mg IV.PUSH Q1H PRN PRN Reason: SBP > 160 Last Admin: 04/18/18 11:50 Dose: 20 mg Lansoprazole (Prevacid Solutab) 30 mg NG/OG DAILY [facility] Last Admin: 04/19/18 08:01 Dose: 30 mg Levothyroxine Sodium (Synthroid) 125 mcg PO DAILY@0600 [facility] Last Admin: 04/19/18 06:35 Dose: 125 mcg Magnesium Oxide (Mag-Ox) 800 mg PO UNSCH PRN PRN Reason: For Magnesium 1.2 - 1.6 mg/dL Magnesium Oxide (Mag-Ox) 400 mg PO BID@1100,2300 [facility] Miscellaneous Medication () 1 each OROPHARYNG 0000,0400,1200,1600 [facility] Last Admin: 04/19/18 06:34 Dose: 1 each Ondansetron HCl (Zofran Inj) 4 mg IV.PUSH Q4H PRN PRN Reason: NAUSEA OR VOMITING Oxycodone HCl (Roxicodone Intensol Liq) 5 mg PO Q4H PRN PRN Reason: pain 4-6 Last Admin: 04/16/18 13:36 Dose: 5 mg Polyethylene Glycol (Miralax) 17 gm PO BID [facility] Last Admin: 04/15/18 21:00 Dose: Not Given Potassium Chloride (Kcl Liq) 40 meq PO UNSCH PRN PRN Reason: Potassium level 3.3-3.5 mEq/L Last Admin: 04/17/18 17:38 Dose: 40 meq Potassium Chloride (Kcl Liq) 40 meq PO UNSCH PRN PRN Reason: Potassium level 3.3-3.5 mEq/L Last Admin: 04/16/18 14:59 Dose: 40 meq Potassium Chloride (Kcl Liq) 20 meq PO BID [facility] Last Admin: 04/19/18 08:41 Dose: 20 meq Potassium Chloride (Kcl Liq) 60 meq PO NOW ONE Stop: 04/19/18 09:16 Last Admin: 04/19/18 09:23 Dose: 60 meq Potassium Phosphate (K-Phos Original) 2,000 mg PO Q4H PRN PRN Reason: Phosphorus Less Than 2.5 mg/dL Last Admin: 04/17/18 10:48 Dose: 2,000 mg Potassium Phosphate (K-Phos Original) 2,000 mg PO UNSCH PRN PRN Reason: SEE LABEL COMMENTS Pravastatin Sodium (Pravachol) 40 mg PO HS [facility] Last Admin: 04/18/18 21:20 Dose: 40 mg Psyllium Hydrophilic Mucilloid (Metamucil Fiber Sf Pkt) 1 pack NG/OG DAILY [facility] Last Admin: 04/19/18 08:41 Dose: 1 pack Senna/Docusate Sodium (Celine-Colace) 1 tab PO BID [facility] Last Admin: 04/19/18 08:02 Dose: Not Given Sodium Chloride (Ns Flush) 2 ml IV.FLUSH BID [facility] Last Admin: 04/19/18 08:01 Dose: Not Given Sodium Chloride (Ns Flush) 2 ml IV.FLUSH PRN PRN PRN Reason: FLUSH AFTER USING IV ACCESS Sodium Chloride (Ns Flush) 0 ml IV.FLUSH DAILY [facility] Last Admin: 04/19/18 08:02 Dose: Not Given Sterile Water (Free Water) 200 ml NG/OG Q6HR [facility] Allergies/Adverse Reactions: Allergies Allergy/AdvReac Type Severity Reaction Status Date / Time Sulfa (Sulfonamide Allergy Severe Nausea Verified 02/15/18 05:02 Antibiotics) Physical Exam Vital signs: Vital Signs 04/18/18 10:00 04/18/18 11:00 04/18/18 11:23 Temperature Pulse Rate 80 79 80 Respiratory Rate 21 21 19 Blood Pressure 138/90 194/91 H Pulse Oximetry 97 96 99 04/18/18 11:52 04/18/18 12:00 04/18/18 13:00 Temperature 98.8 F Pulse Rate 73 72 73 Respiratory Rate 21 21 23 Blood Pressure 141/79 H 143/84 H 163/87 H Pulse Oximetry 97 98 98 04/18/18 14:00 04/18/18 15:00 04/18/18 15:12 Temperature Pulse Rate 72 72 75 Respiratory Rate 19 17 20 Blood Pressure 147/77 H 147/77 H Pulse Oximetry 100 98 98 04/18/18 16:00 04/18/18 17:00 04/18/18 18:00 Temperature 98.9 F Pulse Rate 75 72 84 Respiratory Rate 18 21 18 Blood Pressure 153/75 H 153/82 H 154/74 H Pulse Oximetry 100 100 98 04/18/18 19:00 04/18/18 19:01 04/18/18 19:30 Temperature Pulse Rate 83 82 Respiratory Rate 17 Blood Pressure 155/70 H Pulse Oximetry 98 98 98 04/18/18 19:31 04/18/18 20:00 04/18/18 20:01 Temperature 99.3 F Pulse Rate 80 79 79 Respiratory Rate 17 Blood Pressure 149/71 H Pulse Oximetry 98 99 04/18/18 21:00 04/18/18 21:01 04/18/18 22:00 Temperature Pulse Rate 82 83 80 Respiratory Rate Blood Pressure 165/79 H Pulse Oximetry 99 98 99 04/18/18 22:01 04/18/18 23:00 04/18/18 23:01 Temperature Pulse Rate 80 85 90 Respiratory Rate Blood Pressure 160/80 H 172/80 H Pulse Oximetry 99 99 100 04/18/18 23:29 04/18/18 23:30 04/19/18 00:00 Temperature 99.2 F Pulse Rate 81 81 Respiratory Rate 17 17 Blood Pressure Pulse Oximetry 95 96 04/19/18 00:01 04/19/18 01:00 04/19/18 01:01 Temperature Pulse Rate 81 78 78 Respiratory Rate Blood Pressure 181/81 H 166/80 H Pulse Oximetry 96 99 99 04/19/18 02:00 04/19/18 02:01 04/19/18 03:00 Temperature Pulse Rate 82 82 83 Respiratory Rate Blood Pressure 156/74 H Pulse Oximetry 96 95 98 04/19/18 03:01 04/19/18 03:20 04/19/18 03:22 Temperature Pulse Rate 83 75 Respiratory Rate 15 15 Blood Pressure 167/78 H Pulse Oximetry 98 100 04/19/18 04:00 04/19/18 04:01 04/19/18 05:00 Temperature Pulse Rate 82 81 79 Respiratory Rate Blood Pressure 161/75 H Pulse Oximetry 97 97 98 04/19/18 05:01 04/19/18 06:00 04/19/18 06:12 Temperature Pulse Rate 80 74 76 Respiratory Rate Blood Pressure 164/77 H 171/82 H Pulse Oximetry 98 100 04/19/18 07:00 04/19/18 07:01 04/19/18 07:50 Temperature Pulse Rate 67 69 78 Respiratory Rate 19 Blood Pressure 152/79 H Pulse Oximetry 100 100 04/19/18 07:51 Temperature Pulse Rate Respiratory Rate 20 Blood Pressure Pulse Oximetry 99 Intake & Output 04/18/18 04/19/18 04/19/18 18:59 06:59 18:59 Intake Total 3246 / 3246 3037 / 3037 300 / 300 Output Total 1000 / 1000 1300 / 1300 Balance 2246 / 2246 1737 / 1737 300 / 300 Weight 90.6 kg Intake: IV 460 / 460 200 / 200 100 / 100 Zosyn 4.5 GM Premix 4.5 gm In 200 / 200 200 / 200 100 / 100 100 ml @ 200 mls/hr IV.SIG Q6H JE Rx#:[id number] Potassium Phosphate Inj 30 MMOL 260 / 260 In NS Inj 250 ML @ 42 mls/hr IV.SIG UNSCH PRN Rx#:[id number] Tube Feeding 646 / 646 637 / 637 Tube Irrigant 60 / 60 Water Bolus Amount 900 / 900 900 / 900 Free Water Amount 900 / 900 900 / 900 200 / 200 Other 340 / 340 340 / 340 Output: Stool 400 / 400 300 / 300 Urine Amount (Catheter) 600 / 600 1000 / 1000 Condom 600 / 600 1000 / 1000 Gastric Drainage 0 / 0 L nare Dobbhoff 0 / 0 Other: Date of Last Bowel Movement 04/18/18 04/19/18 # Bowel Movements 1 # Incontinent Bowel Movements 1 Narrative: nl strength all 4 ext and eye closure dtr 2-3+ sym - Urinary Catheter Management Indwelling Urethral Catheter Cath placed during this visit: yes, but has since been removed by the nurse Reason for continuing: Continue criteria not met Insertion date: 04/10/18 Insertion time: 01:45 Removal date: 04/15/18 Removal time: 17:05 Condom Cath placed during this visit: no Objective Laboratory Results - last 24 hr 04/18/18 04/18/18 04/19/18 14:13 20:04 04:00 WBC RBC Hgb Hct MCV MCH MCHC RDW Plt Count MPV Sodium 144 Potassium 3.2 L 2.4 L* D Chloride 109 H Carbon Dioxide 24.9 Anion Gap 10 BUN 15 Creatinine 0.78 Estimated GFR Greater than 89 Random Glucose 114 H Calcium 7.8 L Phosphorus 2.5 2.4 L Magnesium 2.1 Total Bilirubin 0.4 AST 23 ALT 72 Alkaline Phosphatase 78 Total Protein 5.7 L Albumin 2.2 L 04/19/18 04:00 WBC 9.5 RBC 3.05 L Hgb 9.5 L Hct 27.9 L MCV 91.7 MCH 31.1 MCHC 33.9 RDW 14.9 Plt Count 363 MPV 9.4 Sodium Potassium Chloride Carbon Dioxide Anion Gap BUN Creatinine Estimated GFR Random Glucose Calcium Phosphorus Magnesium Total Bilirubin AST ALT Alkaline Phosphatase Total Protein Albumin Microbiology 04/11/18 18:00 Fungal Smear - Final Bronchial Washings - Left Lower Lobe No fungal elements seen Fungal Culture - Preliminary No growth in 1 week 04/11/18 18:00 Acid Fast Bacilli Smear - Final Bronchial Washings - Left Lower Lobe No acid fast bacilli seen Mycobacterial Culture - Preliminary No growth in 1 week Review/Management - Review/Management Plan: Encephalopathy Likely secondary to respiratory failure, hypoxia, metabolic etiology Respiratory failure - Lactic acidosis - Hyperammonemia - Leukocytosis - Neuro checks Q1h - MRI brain and head CT scan was unremarkable for an acute intracranial abnormality - Will reassess after patient he is off sedation. - CSF analysis is unremarkable, pending culture and HSV PCR results - EEG with evidence of encephalopathy, no epileptiform discharges or electrographic seizure activity - I met with family members and discussed the current neurologic status - There is no indication to start AEDs. -DVT prophylaxis - GI prophylaxis - Neurology will follow up. - Dr. Farias will follow up on Tuesday04/03/2018. - Please call for questions 1/21/19 [facility] eeg neg labs neg my hope is off sedatives he should do fine no hx dementia nor pd acc to daughters labs ordered few more 04/04/18 much better ok to dc sedatives neurowise recheck abg still some jerking can recheck eeg when off vent I spoke with Dr Ortiz of pulmonary. 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 According to the pt and family this developed a week after the cervical spine surgery. Myasthenia labs are negative , which does not absolutely r/o myasthenia gravis. He does not have ptosis or other bulbar sx of MG. Guillain [place] can affect respiration and phrenic nerves , but he has no limb weakness and DTRs are intact. Will discuss with Dr Farias possible empiric trial of ivig for possible atypical MG with normal labs. Will send serum JUANJO to be sure not IgA deficient before considering ivig 04/19/18 strength and dtr nl i dw dr puckett and family will try mestinon although unlikely mg
--- NOTE | 2018-04-19 09:53 | P.PNCC ---
Subjective Subjective Remarks/Hospital Course: This 67-year-old came into the emergency room today with his and daughter. On 02/13/2018, he had a microdiscectomy, C5-C6, by Dr. Schwarz. He was discharged home the next day. A few days after, he had not been feeling well, short of breath, disoriented, generally weak, symptoms were getting worse, disorientation was worse. He was referred to emergency department by his primary care physician for an evaluation. In the ED he was found to be in severe hypercarbic respiratory acidosis and was intubated by ED attending. 04/01: CO2 retention corrected. Remains mildly alkalotic due to chronic CO2 elevation. PH normalized. Still requiring vasopressor therapy with norepinephrine. Broad-spectrum antibiotic coverage started. Lumbar puncture performed with opening pressure 20 and crystal-clear fluid, sent for cell counts , chemistries and culture. HSV included. One extra tube sent for future studies if necessary. Ammonia level 71 - repeat daily. 04/02: CSF appears benign. Repeat ammonia level normal. Gamma GT normal. Cardiac echo estimated of 45% ejection fraction requires a little additional investigation -patient has been chronically short of breath for several weeks now. Leukocytosis and left shift persists. Gram-positive cocci and white cells seen in sputum. This man clearly became acutely and critically ill - exact cause still eludes us. 04/03: Leukocytosis improved. Remains quite rigid when stimulated. Continues to move 4 limbs with purpose and follows commands with 4 limbs. Sputum demonstrates white blood cells and gram-negative rods. 04/04: Improved color and perfusion. Extubated yesterday afternoon but failed after about 45 minutes -developed somnolence then obtundation, appeared to be having difficulty taking a breath, concern for vocal cord dysfunction. On reintubation the cord edges were irregular but otherwise normal in appearance. I could not assess cord function as patient was not alert enough to cooperate with commands. We will definitely pursue possibilities of vocal cord dysfunction and or phrenic nerve paralysis once we get him extubated. Ideally, a sniff test under fluoroscopy would demonstrate any paradoxical diaphragm motion. 04/05: Afebrile. Neurologically appears intact. Daughter concerned about "appears distant" however on 40 mcg/kg/min of propofol and 250 mcg an hour fentanyl. No bowel movement since admission. Tube feeding only at 20 cc an hour. 04/06: Afebrile. Neurologically intact. Following commands.. Positive BM. Labile blood pressures yesterday. Replace potassium currently. 04/07: Patient writing notes today. Chest x-ray clear. Elevated left diaphragm , probably dysfunctional. Continued encephalopathy and generalized weakness chris very concerning. We will try Aminophyllin today to see if we can get some diaphragm and central nervous system stimulation. 04/08: Started on theophylline yesterday. Check level in a.m. Will attempt PSV trial today. Noted pulmonology requests possible T-bar with ABG when appropriate. Afebrile. 04/09: T-max 100. theophylline currently 3.7. Currently on CPAP trials. 02/18. 45%. Check ABG at 10 today. Desaturated yesterday currently back at 40%. 04/10: Resting in bed. Episode of nausea overnight. Negative workup. Evaluated positive BM 04/08. Patient more agitated overnight. Propofol discontinued due to hypotension. Currently on fentanyl drip. Theophylline. Creatinine currently 2.0 we will consult nephrology. Discontinue lisinopril. Receiving one half normal saline bolus currently. 04/11: T-max 101.1. Increasing O2 records.Increasing white blood cell count. For the cuff is overinflated to palpate the vocal cords. Leak by examination. Will change ET tube in place central line today. Empirically start antibiotics for aspiration. Not tolerating tube feeds and currently to low inner wall suction. Check KUB after ET tube exchange and central line placement. Restart metoclopramide. Positive BMs. 04/12: Yesterday, CT thorax revealed collapsed left lower lung. Status post bronchoscopy with reinflation of lung. Better saturations today. Continues with small and large bowel colonic distention. Right: 11 cm. GI is following. Might need decompression. Current orogastric tube to low intermittent wall suction. 04/13: Improved small and large bowel colonic distention. Down to 8 cm long family discussion. We will perform percutaneous tracheostomy and PEG tube as well. Request second neurological opinion. In better spirits today. 04/14: no changes. awakens and follows commands. plan for trach today. 22: s/p trach yesterday. awake and alert. calm. looks more comfortable than yesterday. did not tolerate PRVC today, but tolerates PSV with high support (24/ 5/35%). SUBJECTIVE: 2/3: complaining of new RUQ pain. ?+Fry's sign. labs wnl today. no other complaints. denies nausea or vomiting. still has diarrhea, but this is slowing down after holding bowel regimen. ROS otherwise negative. 04/17: Gallbladder ultrasound appears benign. No new complaints. 04/18: Remains on the vent. Tolerated approximately 7 hours of CPAP yesterday with high PS. Still complaining of diarrhea. Most likely induced by tube feeds. Potassium remains low at 2.7. Potassium replacement in addition to protocol given followed by KCl 20 meq twice daily scheduled. Probably GI loss 04/19: Clinically improving tolerating CPAP better today. Pressure support reduced to 12. Near normal strength normal reflexes normal sensation. Continue aggressive potassium and phosphorus replacement. Objective Vital Signs / I&O: Vital Signs 04/18/18 10:00 04/18/18 11:00 04/18/18 11:23 Temperature Pulse Rate 80 79 80 Respiratory Rate 21 21 19 Blood Pressure 138/90 194/91 H Pulse Oximetry 97 96 99 04/18/18 11:52 04/18/18 12:00 04/18/18 13:00 Temperature 98.8 F Pulse Rate 73 72 73 Respiratory Rate 21 21 23 Blood Pressure 141/79 H 143/84 H 163/87 H Pulse Oximetry 97 98 98 04/18/18 14:00 04/18/18 15:00 04/18/18 15:12 Temperature Pulse Rate 72 72 75 Respiratory Rate 19 17 20 Blood Pressure 147/77 H 147/77 H Pulse Oximetry 100 98 98 04/18/18 16:00 04/18/18 17:00 04/18/18 18:00 Temperature 98.9 F Pulse Rate 75 72 84 Respiratory Rate 18 21 18 Blood Pressure 153/75 H 153/82 H 154/74 H Pulse Oximetry 100 100 98 04/18/18 19:00 04/18/18 19:01 04/18/18 19:30 Temperature Pulse Rate 83 82 Respiratory Rate 17 Blood Pressure 155/70 H Pulse Oximetry 98 98 98 04/18/18 19:31 04/18/18 20:00 04/18/18 20:01 Temperature 99.3 F Pulse Rate 80 79 79 Respiratory Rate 17 Blood Pressure 149/71 H Pulse Oximetry 98 99 04/18/18 21:00 04/18/18 21:01 04/18/18 22:00 Temperature Pulse Rate 82 83 80 Respiratory Rate Blood Pressure 165/79 H Pulse Oximetry 99 98 99 04/18/18 22:01 04/18/18 23:00 04/18/18 23:01 Temperature Pulse Rate 80 85 90 Respiratory Rate Blood Pressure 160/80 H 172/80 H Pulse Oximetry 99 99 100 04/18/18 23:29 04/18/18 23:30 04/19/18 00:00 Temperature 99.2 F Pulse Rate 81 81 Respiratory Rate 17 17 Blood Pressure Pulse Oximetry 95 96 04/19/18 00:01 04/19/18 01:00 04/19/18 01:01 Temperature Pulse Rate 81 78 78 Respiratory Rate Blood Pressure 181/81 H 166/80 H Pulse Oximetry 96 99 99 04/19/18 02:00 04/19/18 02:01 04/19/18 03:00 Temperature Pulse Rate 82 82 83 Respiratory Rate Blood Pressure 156/74 H Pulse Oximetry 96 95 98 04/19/18 03:01 04/19/18 03:20 04/19/18 03:22 Temperature Pulse Rate 83 75 Respiratory Rate 15 15 Blood Pressure 167/78 H Pulse Oximetry 98 100 04/19/18 04:00 04/19/18 04:01 04/19/18 05:00 Temperature Pulse Rate 82 81 79 Respiratory Rate Blood Pressure 161/75 H Pulse Oximetry 97 97 98 04/19/18 05:01 04/19/18 06:00 04/19/18 06:12 Temperature Pulse Rate 80 74 76 Respiratory Rate Blood Pressure 164/77 H 171/82 H Pulse Oximetry 98 100 04/19/18 07:00 04/19/18 07:01 04/19/18 07:50 Temperature Pulse Rate 67 69 78 Respiratory Rate 19 Blood Pressure 152/79 H Pulse Oximetry 100 100 04/19/18 07:51 Temperature Pulse Rate Respiratory Rate 20 Blood Pressure Pulse Oximetry 99 Intake & Output 04/18/18 04/19/18 04/19/18 18:59 06:59 18:59 Intake Total 3246 / 3246 3037 / 3037 300 / 300 Output Total 1000 / 1000 1300 / 1300 Balance 2246 / 2246 1737 / 1737 300 / 300 Weight 90.6 kg Intake: IV 460 / 460 200 / 200 100 / 100 Zosyn 4.5 GM Premix 4.5 gm In 200 / 200 200 / 200 100 / 100 100 ml @ 200 mls/hr IV.SIG Q6H GIGI Rx#:[id number] Potassium Phosphate Inj 30 MMOL 260 / 260 In NS Inj 250 ML @ 42 mls/hr IV.SIG UNSCH PRN Rx#:[id number] Tube Feeding 646 / 646 637 / 637 Tube Irrigant 60 / 60 Water Bolus Amount 900 / 900 900 / 900 Free Water Amount 900 / 900 900 / 900 200 / 200 Other 340 / 340 340 / 340 Output: Stool 400 / 400 300 / 300 Urine Amount (Catheter) 600 / 600 1000 / 1000 Condom 600 / 600 1000 / 1000 Gastric Drainage 0 / 0 L nare Dobbhoff 0 / 0 Other: Date of Last Bowel Movement 04/18/18 04/19/18 # Bowel Movements 1 # Incontinent Bowel Movements 1 Result Diagrams: 04/19/18 04:00 04/19/18 04:00 Objective Remarks: GENERAL: 67-year-old male currently trached. Awake alert SKIN: Warm and dry. HEAD: Atraumatic. Normocephalic. EYES: Pupils equal and round. No scleral icterus. No injection or drainage. ENT: No nasal bleeding or discharge. Mucous membranes pink and moist. Dobbhoff tube in place NECK: Trachea midline. No JVD. Trach site without significant oozing CARDIOVASCULAR: RRR sinus. Normal S1-S2 RESPIRATORY: Taking spontaneous breath with pressure support 12 tidal volume 450 -500. equal chest rise. GASTROINTESTINAL: Abdomen slightly protuberant/non-tender, slightly firm and tympanic. MUSCULOSKELETAL: Extremities without clubbing, cyanosis, trace to 1+ edema. No obvious deformities. NEUROLOGICAL: Follows commands and moves extremities to command. No focal deficits. Strength appears near normal today Assessment and Plan - Assessment and Plan Plan: Neuro/Psych: History of anterior C5/6 microdiscectomy with fusion Not requiring any continuous sedation at this time Goal of RASS 0 Evaluated by neurosurgery/Dr. Viera. No intervention planned at this time CT brain/MRI C-spine negative EEG revealed no epileptic activity Neurology following. Recommend myasthenia gravis lab. Negative to date. No evidence of GBS Left diaphragm remains elevated, suspect not functioning well. Requested second opinion for neurological status See neurology note. Overall strength clinically improving Need aggressive potassium and phosphorus replacement CV: Systolic heart failure unknown if acute or chronic Essential hypertension Hyperlipidemia Ejection fraction 45% on admission. Appreciate cardiac evaluation by Dr. Escobedo. No plans at this time Holding amlodipine 10 mg daily, and metoprolol tartrate 12.5 mg twice daily for hypertension Holding clonidine 0.1 twice daily and lisinopril 5 mg daily in light of hypotension/lisinopril for acute kidney injury Continue pravastatin 40 mg daily for dyslipidemia. Continue aspirin 81 mg by mouth daily. Still holding antihypertensives. Resp: Acute hypercapnic respiratory failure- now chronic Klebsiella oxytoca pneumonia PRVC ventilation. Ventilator bundle. Head of bed at 30 degrees Albuterol/ipratropium aerosols every 4 hours with albuterol aerosols every 2 hours as needed dyspnea Will need sniff test to assess diaphragmatic function once off vent We will consult ENT to assess vocal cords when appropriate Appreciate pulmonary input. Spontaneous breathing trial daily. 02/08 discontinued theophylline 400 mg daily acute delirium. Noted level. 04/09 3.7 Status post bronchoscopy 04/11. Thick white purulent secretions left lower lobe suction to clear. General surgery s/p percutaneous tracheostomy 04/14: Dr. Conde daily weaning of CPAP/pressure support. GI: Gastroesophageal reflux disease Transaminitis Hypoalbuminemia Ileus new RUQ pain Tube feeding at 60 cc an hour days. At home on pantoprazole 40 mg daily. Currently on lansoprazole 30 mg daily holding bowel regimen for diarrhea add fiber to diet. RUQ ultrasound -benign Follow liver function tests, lipase : no indication for lehman catheter at this time. Endo: Hypothyroidism Hypokalemia Hypophosphatemia TSH 1.28. Continue levothyroxine 125 mg by mouth daily Sliding scale insulin if indicated to maintain euglycemia Aggressive electrolyte replacement Continue scheduled Renal: Kidney injury - acute, resolved. Avoid all nephrotoxic medications Creatinine currently 1.1 Neurology consultation for evaluation this is contrast-induced nephropathy from scans 03/31. Avoid nephrotoxic medication. Lisinopril discontinued. Accurate I's and O's Heme: Normocytic anemia Leukocytosis Monitor CBC daily. Follow trends per No indication for transfusion of blood proximal to this time. ID: Klebsiella oxytoca pneumonia sputum 04/01 Completed with ceftriaxone per infectious disease. Started on piperacillin/tazobactam 04/11 due to aspiration, anticipated stop date 04/19 Lumbar puncture negative. HSV negative No growth to date on other cultures aside from sputum FEN: Hypernatremia-resolved Hypopotassemia Hypokalemia Free water 200 cc every 6 hours. Replace electrolytes as clinically indicated per ICU electrolyte protocol. Recheck electrolytes in a.m. Increase scheduled potassium replacement 50 MEQ twice daily MSK: PT evaluate and treat up to chair daily OT evaluate and treat Access -Utilize peripheral IV. Prophylaxis -GI -lansoprazole -DVT -SCD/enoxaparin Overall impression: Remains quite weak and debilitated. We need to continue to work on nutrition and gentle weaning. OOB and working with PT daily. Code Status: Full
[2018-04-19] MEDS: Magnesium Oxide 400 MG Tablet PO SCH ×2 (11:00→22:00)
--- NOTE | 2018-04-19 12:00 | CT ---
EXAM DATE: 04/19/2018 11:38 AM EST AGE/SEX: 67 years / Male INDICATIONS: Hematuria. CLINICAL DATA: This is the patient's initial encounter. Patient reports that signs and symptoms have been present for 1 day and indicates a pain score of Nonresponsive. History of a complex cyst in the lower pole the right kidney seen on prior ultrasound. MEDICAL/SURGICAL HISTORY: Hypertension. respiratory failure Discectomy, cervical. Trach, ingui nal hernia repair RADIATION DOSE: 14.52 CTDI (mGy) COMPARISON: [facility] – [place]/RENAL/BLADDER, 04/10/2018. . TECHNIQUE: Multiple contiguous axial images were obtained through the abdomen. Images were obtained using multiple row detector helical technique. Using automated exposure control and adjustment of the mA and/or kV according to patient size, radiation dose was kept as low as reasonably achievable to o btain optimal diagnostic quality images. DICOM format image data is available electronically for rev iew and comparison. FINDINGS: Lower Lungs: There are small pleural effusions. Consolidation is again noted in the lower lobes left greater than right. Liver: The liver has a homogeneous density without space-occupying lesion. There is no dilation of th e biliary tree. Spleen: Homogeneous density without enlargement. Pancreas: Unremarkable without mass or calcification. Kidneys: Normal in size and shape. No evidence of hydronephrosis. There is a small 2 mm nonobstructi ng right renal calculus again noted. The visualized portions of the ureters appear unremarkable. The known complex cystic lesion is faintly visualized in the lower pole the right kidney. This measures u p to approximately 2.6 cm in diameter. Adrenal Glands: Unremarkable. Aorta: The aorta and proximal iliac vessels are grossly unremarkable without aneurysmal dilation. Bowel/Mesentery: No oral contrast was given limiting the sensitivity examination. A feeding tube is p resent with the tip in the stomach. There are multiple loops of nondilated air-containing small bowel . Gas and stool is noted segmentally in the colon with mild gaseous distention of portions of the tra nsverse colon. There are multiple air-fluid levels with no evidence of free air. The cecum and sigmoi d colon have a normal configuration. Abdominal Wall: Intact. Retroperitoneum: No evidence of adenopathy in the retrocrural, para-aortic, or deep pelvic regions. Bladder: Contours are smooth. There is a tiny 1 mm calculus now noted in the posterior left side of the bladder. Reproductive Organs: No abnormal masses or calcifications seen. Inguinal: The inguinal region is unremarkable without evidence of adenopathy. Bony Structures: Unremarkable. CONCLUSION: 1. Tiny 1 mm calculus now noted in the posterior left side of the bladder which could represent a sm all bladder calculi or distal ureteral calculus. 2. The left kidney appears unremarkable and there is no hydronephrosis. The ureters appear within no rmal limits. 3. Single tiny nonobstructing right renal calculus without change. The previously noted complex cyst ic lesion in the lower pole is faintly visualized. 4. Nonspecific bowel gas pattern which may represent an ileus. Electronically signed by: Les Celaya MD Board Certified Radiologist 04/19/2018 11:59 AM EST
--- NOTE | 2018-04-19 13:15 | MB ---
cc: Danny Isaacn Jerman DO DATE: 04/19/2018 HISTORY OF PRESENT ILLNESS: Mr. Vásquez is a pleasant 67-year-old male who initially underwent an anterior cervical microdiscectomy in February 2018, then developed prolonged respiratory failure. Urology is consulted because the patient developed acute onset of gross hematuria. Approximately 2 weeks ago, the Wood catheter was traumatically removed by the patient, per report. He is also on subcutaneous Lovenox for deep venous thrombosis prophylaxis. There has been no reports of prostate cancer or bladder cancer or prior history of gross hematuria. The patient is followed for mild BPH by Dr. Quigley. Presently, the patient has a condom catheter in place and is draining dark colored urine. Initially, it was red and then now appears to be dark and he does not seem to be actively bleeding. A few clots were noted early on, but have now resolved. PAST MEDICAL HISTORY: His medical history includes GERD, high cholesterol, thyroid disease, neck problems. PAST SURGICAL HISTORY: Microdiscectomy inguinal hernia repair, LASIK surgery. FAMILY HISTORY: No family history of prostate cancer is noted. SOCIAL HISTORY: Denies smoking, drinking or using drugs. REVIEW OF SYSTEMS: Denies abdominal pain. Denies history of UTIs. Denies chest pain or shortness of breath. Denies abdominal pain. The remaining review of systems were reviewed and were negative. PHYSICAL EXAMINATION: VITAL SIGNS: Temperature is presently afebrile and his vital signs are stable. GENERAL: He is a well-developed, well-nourished 67-year-old male in no acute distress. HEENT: Normocephalic, atraumatic. Pupils equal, round, regular and reactive to light. Extraocular movements intact. NECK: Supple. Breath sounds are bilateral. ABDOMEN: Soft, nontender, nondistended. Condom catheter is in place. GENITOURINARY: Testes are descended. EXTREMITIES: Show 2+ edema. LABORATORY DATA: White count 9.5, hemoglobin 9.5, hematocrit 27.9, platelet count of 363. Sodium 144, potassium 2.4, chloride 109, CO2 24.9, BUN of 15, creatinine 0.78, glucose of 114. PT 11.6, INR 1.1, PTT 27.6. Urinalysis from 04/10/2018 shows 134 red cells and 156 white cells; nitrite is negative, large blood is noted. Urine culture from 04/10/2018 was negative. IMAGING STUDIES: CT scan performed today demonstrates no evidence of hydronephrosis, tiny 1 mm calculus is noted in the posterior left side of the bladder. This could be a small bladder calculi or distal ureteral calculus. The left kidney appears unremarkable and no hydronephrosis. Tiny nonobstructing right renal calculus is noted without change. Nonspecific bowel gas pattern is noted. ASSESSMENT AND PLAN: A 67-year-old male with onset of gross hematuria with history of traumatic Wood removal 2 weeks ago on anticoagulation therapy. Recommend holding Lovenox for now, monitoring urine output. If gross blood starts to develop, we will place a 22-[place] 3-way Wood catheter. But as for now, we will allow the patient to void on his own and see if the urine can clear on its own with holding anticoagulation medication. We will follow with you closely. Thank you for the consult. DO SOBIA Goodrich/marcos , 12:47 PM , 12:57 PM
[2018-04-19 15:17] LABS: Magnesium 2.2 mg/dL (1.5-2.5); Potassium 3.4 meq/L (3.5-5.1)
[2018-04-19] MEDS: Pyridostigmine Bromide 60 MG Tablet PO SCH ×3 (15:20→22:01)
[2018-04-19] MEDS ORDERED: Lidocaine 1% Inj 30 ML Vial INFILTRATN ONE (15:45)
--- NOTE | 2018-04-19 19:34 | P.PN ---
Subjective Interval history: Alert and on CPAP this morning 15 and FiO2 of 35%. He seems to be improving steadily and has a good outsole beveler bilaterally. Was in a chair yesterday for over 3 hours. Tolerating tube feeding. Physical Exam Vital signs: Vital Signs 04/18/18 19:31 04/18/18 20:00 04/18/18 20:01 Temperature 99.3 F Pulse Rate 80 79 79 Respiratory Rate 17 Blood Pressure 149/71 H Pulse Oximetry 98 99 04/18/18 21:00 04/18/18 21:01 04/18/18 22:00 Temperature Pulse Rate 82 83 80 Respiratory Rate Blood Pressure 165/79 H Pulse Oximetry 99 98 99 04/18/18 22:01 04/18/18 23:00 04/18/18 23:01 Temperature Pulse Rate 80 85 90 Respiratory Rate Blood Pressure 160/80 H 172/80 H Pulse Oximetry 99 99 100 04/18/18 23:29 04/18/18 23:30 04/19/18 00:00 Temperature 99.2 F Pulse Rate 81 81 Respiratory Rate 17 17 Blood Pressure Pulse Oximetry 95 96 04/19/18 00:01 04/19/18 01:00 04/19/18 01:01 Temperature Pulse Rate 81 78 78 Respiratory Rate Blood Pressure 181/81 H 166/80 H Pulse Oximetry 96 99 99 04/19/18 02:00 04/19/18 02:01 04/19/18 03:00 Temperature Pulse Rate 82 82 83 Respiratory Rate Blood Pressure 156/74 H Pulse Oximetry 96 95 98 04/19/18 03:01 04/19/18 03:20 04/19/18 03:22 Temperature Pulse Rate 83 75 Respiratory Rate 15 15 Blood Pressure 167/78 H Pulse Oximetry 98 100 04/19/18 04:00 04/19/18 04:01 04/19/18 05:00 Temperature Pulse Rate 82 81 79 Respiratory Rate Blood Pressure 161/75 H Pulse Oximetry 97 97 98 04/19/18 05:01 04/19/18 06:00 04/19/18 06:12 Temperature Pulse Rate 80 74 76 Respiratory Rate Blood Pressure 164/77 H 171/82 H Pulse Oximetry 98 100 04/19/18 07:00 04/19/18 07:01 04/19/18 07:50 Temperature Pulse Rate 67 69 78 Respiratory Rate 19 Blood Pressure 152/79 H Pulse Oximetry 100 100 04/19/18 07:51 04/19/18 10:56 04/19/18 11:20 Temperature Pulse Rate Respiratory Rate 20 18 Blood Pressure Pulse Oximetry 99 100 100 04/19/18 11:51 04/19/18 11:52 04/19/18 15:39 Temperature Pulse Rate 79 88 Respiratory Rate 18 15 17 Blood Pressure Pulse Oximetry 99 98 Intake & Output 04/19/18 04/19/18 04/20/18 06:59 18:59 06:59 Intake Total 3037 / 3037 600 / 600 Output Total 1300 / 1300 Balance 1737 / 1737 600 / 600 Weight 90.6 kg Intake: IV 200 / 200 200 / 200 Zosyn 4.5 GM Premix 4.5 gm In 200 / 200 200 / 200 100 ml @ 200 mls/hr IV.SIG Q6H GIGI Rx#:[id number] Tube Feeding 637 / 637 Tube Irrigant 60 / 60 Water Bolus Amount 900 / 900 Free Water Amount 900 / 900 400 / 400 Other 340 / 340 Output: Stool 300 / 300 Urine Amount (Catheter) 1000 / 1000 Condom 1000 / 1000 Gastric Drainage 0 / 0 L nare Dobbhoff 0 / 0 Other: Date of Last Bowel Movement 04/19/18 # Bowel Movements 1 # Incontinent Bowel Movements 1 Narrative: GENERAL: Elderly white male on ventilator support with a trach SKIN: Warm and dry. HEAD: Atraumatic. Normocephalic. EYES: Pupils equal and round. No scleral icterus. No injection or drainage. ENT: No nasal bleeding or discharge. Mucous membranes pink and moist. NECK: Trachea midline. No JVD. CARDIOVASCULAR: Regular rate and rhythm. RESPIRATORY: No accessory muscle use. Scattered expiratory wheezes in the upper chest. Breath sounds equal bilaterally. GASTROINTESTINAL: Abdomen soft, non-tender, nondistended. Hepatic and splenic margins not palpable. MUSCULOSKELETAL: Extremities without clubbing, cyanosis, or edema. No obvious deformities. NEUROLOGICAL: Awake and alert. No obvious cranial nerve deficits. Motor grossly within normal limits. . Normal speech. PSYCHIATRIC: Cannot assess. Calm and cooperative. - Urinary Catheter Management Indwelling Urethral Catheter Cath placed during this visit: yes, but has since been removed by the nurse Reason for continuing: Continue criteria not met Insertion date: 04/10/18 Insertion time: 01:45 Removal date: 04/15/18 Removal time: 17:05 Condom Cath placed during this visit: no Results - Labs CBC & Chem 7: 04/19/18 04:00 04/19/18 14:23 Laboratory Results - last 24 hr 04/18/18 04/19/18 04/19/18 20:04 04:00 04:00 WBC 9.5 RBC 3.05 L Hgb 9.5 L Hct 27.9 L MCV 91.7 MCH 31.1 MCHC 33.9 RDW 14.9 Plt Count 363 MPV 9.4 Sodium 144 Potassium 2.4 L* D Chloride 109 H Carbon Dioxide 24.9 Anion Gap 10 BUN 15 Creatinine 0.78 Estimated GFR Greater than 89 Random Glucose 114 H Calcium 7.8 L Phosphorus 2.5 2.4 L Magnesium 2.1 Total Bilirubin 0.4 AST 23 ALT 72 Alkaline Phosphatase 78 Total Protein 5.7 L Albumin 2.2 L 04/19/18 04/19/18 14:23 17:35 WBC RBC Hgb Hct MCV MCH MCHC RDW Plt Count MPV Sodium Potassium 3.4 L D Chloride Carbon Dioxide Anion Gap BUN Creatinine Estimated GFR Random Glucose Calcium Phosphorus 2.5 Magnesium 2.2 Total Bilirubin AST ALT Alkaline Phosphatase Total Protein Albumin - Imaging Impressions Chest X-Ray 04/19/18 06:00 CONCLUSION: 1. Stable left basilar opacity likely representing either atelectasis or airspace consolidation. 2. Feeding tube distal tip overlies the stomach. Abdomen/Pelvis CT 04/19/18 10:15 CONCLUSION: 1. Tiny 1 mm calculus now noted in the posterior left side of the bladder which could represent a small bladder calculi or distal ureteral calculus. 2. The left kidney appears unremarkable and there is no hydronephrosis. The ureters appear within normal limits. 3. Single tiny nonobstructing right renal calculus without change. The previously noted complex cystic lesion in the lower pole is faintly visualized. 4. Nonspecific bowel gas pattern which may represent an ileus. Assessment and Plan - Assessment (1) Respiratory failure Code(s): J96.90 - Respiratory failure, unspecified, unspecified whether with hypoxia or hypercapnia Status: Acute (2) Atelectasis Code(s): J98.11 - Atelectasis Status: Acute (3) Neck pain, chronic Code(s): M54.2 - Cervicalgia; G89.29 - Other chronic pain Status: Chronic (4) Other cervical disc degeneration at C5-C6 level Code(s): M50.322 - Other cervical disc degeneration at C5-C6 level Status: Chronic (5) Protrusion of cervical intervertebral disc Code(s): M50.20 - Other cervical disc displacement, unspecified cervical region Status: Chronic (6) Adult failure to thrive Code(s): R62.7 - Adult failure to thrive Status: Acute (7) Shortness of breath Code(s): R06.02 - Shortness of breath Status: Acute (8) Weakness generalized Code(s): R53.1 - Weakness Status: Acute (9) Acute hyponatremia Code(s): E87.1 - Hypo-osmolality and hyponatremia Status: Acute (10) Ventilator dependent Code(s): Z99.11 - Dependence on respirator [ventilator] status Status: Acute - Plan 1 CPAP during the day 09/22 with FiO2 of 35% 2 wean FiO2 to keep sats greater than 92 3. Chest x-ray 4. DuoNeb nebs every 6 hours as needed 5. Stop sedation 6. Tracheal lavage and suction as needed 7. Continue Lovenox 40 mg subcu daily 8. Continue antibiotics per ID 9. CBC BMP in a.m. 10. Place on AC rate of 12 at night 11. PT evaluation 12. Up in chair as tolerated
[2018-04-19 20:05] LABS: Bacteria,Urine Occasional /hpf; Bilirubin,Urine Negative (Negative); Clarity,Urine Hazy (Clear); Color,Urine Yellow (Yellw/Straw); Glucose,Urine (UA) 50 mg/dL (Negative); Leukocyte Esterase,Urine Negative (Negative); Nitrite,Urine Negative (Negative)
[2018-04-20] MEDS: Oral Hygiene Kit OROPHARYNG SCH ×5 (00:34→23:56)
[2018-04-20] MEDS: Pyridostigmine Bromide 60 MG Tablet PO SCH ×7 (00:34→23:56)
[2018-04-20] MEDS: Artificial Tears Opth Drops 15 ML Bottle EACH EYE SCH ×3 (00:35→16:57)
[2018-04-20 04:41] LABS: Hematocrit 23.7 % (39.0-51.0); Hemoglobin 8.1 gm/dL (13.0-17.0); Mean Corpuscular HGB Conc 34.2 % (32.0-36.0); Mean Corpuscular Hemoglobin 31.4 pg (27.0-34.0); Mean Corpuscular Volume 91.6 fL (80.0-100.0); Platelet Count 336 th/mm3 (150-450); Red Blood Count 2.59 mil/mm3 (4.50-5.90); Red Cell Distribution Width 14.8 % (11.6-17.2); White Blood Count 11.6 th/mm3 (4.0-11.0)
[2018-04-20 05:03] LABS: Anion Gap 8 meq/L (5-15); Blood Urea Nitrogen 14 mg/dL (7-18); Calcium 7.6 mg/dL (8.5-10.1); Carbon Dioxide 26.9 meq/L (21.0-32.0); Chloride 110 meq/L (98-107); Glomerular Filtration Rate Greater Than 89 mL/min (>89); Glucose,Random 102 mg/dL (74-106); Magnesium 2.3 mg/dL (1.5-2.5); Phosphorus 2.2 mg/dL (2.5-4.9); Potassium 3.1 meq/L (3.5-5.1); Sodium 145 meq/L (136-145)
[2018-04-20] MEDS: Levothyroxine 125 MCG Tablet PO SCH (05:19)
[2018-04-20] MEDS: hydrALAZINE 50 MG Tablet PO SCH ×3 (05:19→21:03)
--- NOTE | 2018-04-20 07:48 | P.PNNEU ---
Subjective Active Medications: Active Medications Acetaminophen (Tylenol) 650 mg PO Q6H PRN PRN Reason: Temp > 100.4 Last Admin: 04/16/18 21:02 Dose: 650 mg Albuterol (Duoneb Neb (Je)) 1 ampul NEB Q4HR NEB [facility] Last Admin: 04/20/18 04:32 Dose: 1 ampul Albuterol (Albuterol Neb (Prn)) 2.5 mg NEB Q2HR NEB PRN PRN Reason: DYSPNEA Artificial Tears (Tears Naturale Opth Drops) 1 drop EACH EYE Q8H [facility] Last Admin: 04/20/18 00:35 Dose: Not Given Aspirin (Aspirin Chew) 81 mg PO DAILY [facility] Last Admin: 04/19/18 08:01 Dose: 81 mg Chlorhexidine Gluconate (Peridex 0.12% Oral Kit) 15 ml OROPHARYNG BID@0800, 1999 [facility] Last Admin: 04/19/18 22:45 Dose: 15 ml Enoxaparin Sodium (Lovenox Inj) 40 mg SQ DAILY [facility] Last Admin: 04/19/18 08:01 Dose: 40 mg Hydralazine HCl (Apresoline) 50 mg PO Q8HR [facility] Last Admin: 04/20/18 05:19 Dose: 50 mg Magnesium Sulfate 4 gm/ Sodium (Chloride) 100 mls @ 50 mls/hr IV.SIG UNSCH PRN PRN Reason: For Magnesium 0.9 - 1.1 mg/dL Potassium Chloride (Kcl 40 Meq Premix Inj) 40 meq in 100 mls @ 25 mls/hr IV.SIG Q2H PRN PRN Reason: For Potassium 2.8 - 3.2 mEq/L Last Infusion: 04/15/18 06:37 Dose: Infused Potassium Chloride (Kcl 20 Meq Premix Inj) 20 meq in 100 mls @ 50 mls/hr IV.SIG Q2H PRN PRN Reason: For Potassium 3.3 - 3.5 mEq/L Potassium Chloride (Kcl 40 Meq Premix Inj) 40 meq in 100 mls @ 25 mls/hr IV.SIG UNSCH PRN PRN Reason: For Potassium 3.3 - 3.5 mEq/L Last Infusion: 04/12/18 10:35 Dose: Infused Potassium Chloride (Kcl 20 Meq Premix Inj) 20 meq in 100 mls @ 50 mls/hr IV.SIG Q2H PRN PRN Reason: For Potassium 2.8 - 3.2 mEq/L Last Admin: 04/20/18 06:05 Dose: 50 mls/hr Potassium Phosphate 30 mmol/ (Sodium Chloride) 260 mls @ 42 mls/hr IV.SIG UNSCH PRN PRN Reason: SEE LABEL COMMENTS Last Infusion: 04/19/18 15:35 Dose: Infused Magnesium Sulfate 2 gm/ Sodium (Chloride) 100 mls @ 50 mls/hr IV.SIG UNSCH PRN PRN Reason: For Magnesium 1.2 - 1.6 mg/dL Sodium Phosphate 30 mmol/ (Sodium Chloride) 260 mls @ 42 mls/hr IV.SIG UNSCH PRN PRN Reason: For Phosphorus < 2.5 mg/dL Labetalol HCl (Trandate Inj) 20 mg IV.PUSH Q1H PRN PRN Reason: SBP > 160 Last Admin: 04/18/18 11:50 Dose: 20 mg Lansoprazole (Prevacid Solutab) 30 mg NG/OG DAILY [facility] Last Admin: 04/19/18 08:01 Dose: 30 mg Levothyroxine Sodium (Synthroid) 125 mcg PO DAILY@0600 [facility] Last Admin: 04/20/18 05:19 Dose: 125 mcg Magnesium Oxide (Mag-Ox) 800 mg PO UNSCH PRN PRN Reason: For Magnesium 1.2 - 1.6 mg/dL Magnesium Oxide (Mag-Ox) 400 mg PO BID@1100,2300 [facility] Last Admin: 04/19/18 22:00 Dose: 400 mg Miscellaneous (Pill Splitter) 1 each OTHER UNSCH PRN PRN Reason: SEE LABEL COMMENTS Miscellaneous Medication () 1 each OROPHARYNG 0000,0400,1200,1600 [facility] Last Admin: 04/20/18 04:46 Dose: Not Given Ondansetron HCl (Zofran Inj) 4 mg IV.PUSH Q4H PRN PRN Reason: NAUSEA OR VOMITING Oxycodone HCl (Roxicodone Intensol Liq) 5 mg PO Q4H PRN PRN Reason: pain 4-6 Last Admin: 04/16/18 13:36 Dose: 5 mg Oxymetazoline HCl (Afrin 0.05% Nasal [place]) 2 spray NASAL Q12H PRN PRN Reason: Bronchoscopy Polyethylene Glycol (Miralax) 17 gm PO BID [facility] Last Admin: 04/15/18 21:00 Dose: Not Given Potassium Chloride (Kcl Liq) 40 meq PO UNSCH PRN PRN Reason: Potassium level 3.3-3.5 mEq/L Last Admin: 04/17/18 17:38 Dose: 40 meq Potassium Chloride (Kcl Liq) 40 meq PO UNSCH PRN PRN Reason: Potassium level 3.3-3.5 mEq/L Last Admin: 04/16/18 14:59 Dose: 40 meq Potassium Chloride (Kcl Liq) 50 meq PO BID [facility] Last Admin: 04/19/18 22:02 Dose: 50 meq Potassium Phosphate (K-Phos Original) 2,000 mg PO Q4H PRN PRN Reason: Phosphorus Less Than 2.5 mg/dL Last Admin: 04/17/18 10:48 Dose: 2,000 mg Potassium Phosphate (K-Phos Original) 2,000 mg PO UNSCH PRN PRN Reason: SEE LABEL COMMENTS Pravastatin Sodium (Pravachol) 40 mg PO HS [facility] Last Admin: 04/19/18 22:01 Dose: 40 mg Psyllium Hydrophilic Mucilloid (Metamucil Fiber Sf Pkt) 1 pack NG/OG DAILY [facility] Last Admin: 04/19/18 08:41 Dose: 1 pack Pyridostigmine [place] (Mestinon) 30 mg PO Q4HR [facility] Last Admin: 04/20/18 04:45 Dose: 30 mg Sodium Chloride (Ns Flush) 2 ml IV.FLUSH BID [facility] Last Admin: 04/19/18 22:46 Dose: 2 ml Sodium Chloride (Ns Flush) 2 ml IV.FLUSH PRN PRN PRN Reason: FLUSH AFTER USING IV ACCESS Sodium Chloride (Ns Flush) 0 ml IV.FLUSH DAILY [facility] Last Admin: 04/19/18 08:02 Dose: Not Given Sterile Water (Free Water) 200 ml NG/OG Q6HR [facility] Last Admin: 04/20/18 05:19 Dose: Not Given Allergies/Adverse Reactions: Allergies Allergy/AdvReac Type Severity Reaction Status Date / Time Sulfa (Sulfonamide Allergy Severe Nausea Verified 02/15/18 05:02 Antibiotics) Physical Exam Vital signs: Vital Signs 04/19/18 07:50 04/19/18 07:51 04/19/18 08:00 Temperature 99.0 F Pulse Rate 78 76 Respiratory Rate 19 20 18 Blood Pressure 147/74 H Pulse Oximetry 99 99 04/19/18 09:00 04/19/18 10:00 04/19/18 10:56 Temperature Pulse Rate 80 92 H Respiratory Rate 18 18 18 Blood Pressure 166/79 H 189/93 H Pulse Oximetry 96 99 100 04/19/18 11:00 04/19/18 11:20 04/19/18 11:51 Temperature Pulse Rate 86 79 Respiratory Rate 17 18 Blood Pressure 170/97 H Pulse Oximetry 100 100 04/19/18 11:52 04/19/18 12:00 04/19/18 13:00 Temperature 98.5 F Pulse Rate 85 81 Respiratory Rate 15 20 18 Blood Pressure 150/78 H 139/75 Pulse Oximetry 99 95 97 04/19/18 14:00 04/19/18 15:00 04/19/18 15:39 Temperature Pulse Rate 76 94 H 88 Respiratory Rate 18 21 17 Blood Pressure 148/76 H 142/81 H Pulse Oximetry 100 97 98 04/19/18 16:00 04/19/18 17:00 04/19/18 18:00 Temperature 98.2 F Pulse Rate 97 H 98 H 86 Respiratory Rate 19 18 16 Blood Pressure 150/84 H 170/97 H 173/92 H Pulse Oximetry 96 100 100 04/19/18 19:00 04/19/18 19:01 04/19/18 19:43 Temperature Pulse Rate 82 81 87 Respiratory Rate 17 Blood Pressure 167/81 H Pulse Oximetry 100 100 100 04/19/18 20:00 04/19/18 20:01 04/19/18 21:00 Temperature Pulse Rate 95 H 93 H 88 Respiratory Rate Blood Pressure 164/79 H Pulse Oximetry 98 98 100 04/19/18 21:01 04/19/18 22:00 04/19/18 22:01 Temperature Pulse Rate 87 101 H 101 H Respiratory Rate Blood Pressure 145/69 H 163/80 H Pulse Oximetry 100 99 98 04/19/18 23:00 04/19/18 23:01 04/19/18 23:54 Temperature Pulse Rate 96 H 95 H 95 H Respiratory Rate 16 Blood Pressure 165/84 H Pulse Oximetry 100 100 97 04/20/18 00:00 04/20/18 00:01 04/20/18 01:00 Temperature Pulse Rate 91 H 92 H 85 Respiratory Rate Blood Pressure 167/83 H Pulse Oximetry 100 100 99 04/20/18 01:01 04/20/18 02:00 04/20/18 02:01 Temperature Pulse Rate 88 96 H 96 H Respiratory Rate Blood Pressure 146/76 H 166/81 H Pulse Oximetry 99 97 99 04/20/18 03:00 04/20/18 03:01 04/20/18 04:00 Temperature Pulse Rate 84 77 97 H Respiratory Rate Blood Pressure 162/86 H Pulse Oximetry 100 100 99 04/20/18 04:01 04/20/18 04:32 04/20/18 05:00 Temperature Pulse Rate 95 H 88 79 Respiratory Rate 15 Blood Pressure 174/80 H Pulse Oximetry 99 99 100 04/20/18 05:01 04/20/18 06:00 04/20/18 06:01 Temperature Pulse Rate 79 79 77 Respiratory Rate 15 15 Blood Pressure 147/77 H 158/81 H Pulse Oximetry 100 100 100 Intake & Output 04/19/18 04/20/18 04/20/18 18:59 06:59 18:59 Intake Total 1981 100 / 100 Output Total 2510 / 2510 1200 / 1200 Balance -528 / -528 -1100 / -1100 Weight 87.3 kg Intake: IV 460 / 460 100 / 100 Zosyn 4.5 GM Premix 4.5 gm In 200 / 200 100 / 100 100 ml @ 200 mls/hr IV.SIG Q6H JE Rx#:[id number] Potassium Phosphate Inj 30 MMOL 260 / 260 In NS Inj 250 ML @ 42 mls/hr IV.SIG UNSCH PRN Rx#:[id number] Tube Feeding 482 / 482 Water Bolus Amount 400 / 400 Free Water Amount 400 / 400 Other 240 / 240 Output: Stool 500 / 500 Urine Amount (Catheter) 2009 1200 / 1200 3-way Urethral 1660 / 1660 1200 / 1200 Condom 350 / 350 Other: Bladder Irrigation Fluid - Amount Instilled 3-way Urethral 3,000 5,900 Bladder Irrigation Fluid - Amount Drained 3-way Urethral 3,000 5,900 # Incontinent Voids 3 Date of Last Bowel Movement 04/19/18 04/19/18 # Incontinent Bowel Movements 1 Narrative: slept well can take a weak inspiratory breath - Urinary Catheter Management Indwelling Urethral Catheter Cath placed during this visit: yes, but has since been removed by the nurse Reason for continuing: Continue criteria not met Insertion date: 04/10/18 Insertion time: 01:45 Removal date: 04/15/18 Removal time: 17:05 Condom Cath placed during this visit: no 3-way Urethral Cath placed during this visit: no Objective Laboratory Results - last 24 hr 04/19/18 04/19/18 04/19/18 14:23 17:35 18:45 WBC RBC Hgb Hct MCV MCH MCHC RDW Plt Count MPV Sodium Potassium 3.4 L D Chloride Carbon Dioxide Anion Gap BUN Creatinine Estimated GFR Random Glucose Calcium Phosphorus 2.5 Magnesium 2.2 Urine Color Yellow Urine Clarity Hazy H Urine pH 6.0 Ur Specific [place] 1.010 Urine Protein 30 H Urine Glucose (UA) 50 Urine Ketones Negative Urine Occult Blood Large H Urine Nitrate Negative Urine Bilirubin Negative Urine Urobilinogen Less than 2 Ur Leukocyte Esterase Negative Urine RBC Urine WBC 3 Urine Bacteria Occasional H Micro UA Comment Cath-culture ind Ur Microscopic Review Not Reportable Urine Culture Comments Cath-cult indicated 04/20/18 04/20/18 04:02 04:02 WBC 11.6 H RBC 2.59 L Hgb 8.1 L Hct 23.7 L MCV 91.6 MCH 31.4 MCHC 34.2 RDW 14.8 Plt Count 336 MPV 9.0 Sodium 145 Potassium 3.1 L Chloride 110 H Carbon Dioxide 26.9 Anion Gap 8 BUN 14 Creatinine 0.61 Estimated GFR Greater than 89 Random Glucose 102 Calcium 7.6 L Phosphorus 2.2 L Magnesium 2.3 Urine Color Urine Clarity Urine pH Ur Specific [place] Urine Protein Urine Glucose (UA) Urine Ketones Urine Occult Blood Urine Nitrate Urine Bilirubin Urine Urobilinogen Ur Leukocyte Esterase Urine RBC Urine WBC Urine Bacteria Micro UA Comment Ur Microscopic Review Urine Culture Comments Review/Management - Review/Management Plan: Encephalopathy Likely secondary to respiratory failure, hypoxia, metabolic etiology Respiratory failure - Lactic acidosis - Hyperammonemia - Leukocytosis - Neuro checks Q1h - MRI brain and head CT scan was unremarkable for an acute intracranial abnormality - Will reassess after patient he is off sedation. - CSF analysis is unremarkable, pending culture and HSV PCR results - EEG with evidence of encephalopathy, no epileptiform discharges or electrographic seizure activity - I met with family members and discussed the current neurologic status - There is no indication to start AEDs. -DVT prophylaxis - GI prophylaxis - Neurology will follow up. - Dr. Farias will follow up on Tuesday04/03/2018. - Please call for questions 04/03/[facility] labs neg my hope is off sedatives he should do fine no hx dementia nor pd acc to daughters labs ordered few more 04/04/18 much better ok to dc sedatives neurowise recheck abg still some [place] can recheck eeg when off vent I spoke with Dr Ortiz of pulmonary. 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 According to the pt and family this developed a week after the cervical spine surgery. Myasthenia labs are negative , which does not absolutely r/o myasthenia gravis. He does not have ptosis or other bulbar sx of MG. Guillain [place] can affect respiration and phrenic nerves , but he has no limb weakness and DTRs are intact. Will discuss with Dr Farias possible empiric trial of ivig for possible atypical MG with normal labs. Will send serum JUANJO to be sure not IgA deficient before considering ivig 04/19/18 strength and dtr nl i breezy puckett and family will try mestinon although unlikely mg 04/20/18 inc mestinon to 60 mg and watch breathing
[2018-04-20] MEDS: Psyllium Husk SF 3.4 GM in 5.8 GM Packet NG/OG SCH (09:30)
[2018-04-20] MEDS: Chlorhexidine 0.12% Oral Kit 15 ML UDC OROPHARYNG SCH ×2 (09:42→21:03)
[2018-04-20] MEDS: Potassium Chloride Liq 20 MEQ/15 ML UDC PO SCH ×2 (09:43→21:04)
--- NOTE | 2018-04-20 09:56 | P.PNCC ---
Subjective Subjective Remarks/Hospital Course: This 67-year-old came into the emergency room today with his and daughter. On 02/13/2018, he had a microdiscectomy, C5-C6, by Dr. Schwarz. He was discharged home the next day. A few days after, he had not been feeling well, short of breath, disoriented, generally weak, symptoms were getting worse, disorientation was worse. He was referred to emergency department by his primary care physician for an evaluation. In the ED he was found to be in severe hypercarbic respiratory acidosis and was intubated by ED attending. 04/01: CO2 retention corrected. Remains mildly alkalotic due to chronic CO2 elevation. PH normalized. Still requiring vasopressor therapy with norepinephrine. Broad-spectrum antibiotic coverage started. Lumbar puncture performed with opening pressure 20 and crystal-clear fluid, sent for cell counts , chemistries and culture. HSV included. One extra tube sent for future studies if necessary. Ammonia level 71 - repeat daily. 04/02: CSF appears benign. Repeat ammonia level normal. Gamma GT normal. Cardiac echo estimated of 45% ejection fraction requires a little additional investigation -patient has been chronically short of breath for several weeks now. Leukocytosis and left shift persists. Gram-positive cocci and white cells seen in sputum. This man clearly became acutely and critically ill - exact cause still eludes us. 04/03: Leukocytosis improved. Remains quite rigid when stimulated. Continues to move 4 limbs with purpose and follows commands with 4 limbs. Sputum demonstrates white blood cells and gram-negative rods. 04/04: Improved color and perfusion. Extubated yesterday afternoon but failed after about 45 minutes -developed somnolence then obtundation, appeared to be having difficulty taking a breath, concern for vocal cord dysfunction. On reintubation the cord edges were irregular but otherwise normal in appearance. I could not assess cord function as patient was not alert enough to cooperate with commands. We will definitely pursue possibilities of vocal cord dysfunction and or phrenic nerve paralysis once we get him extubated. Ideally, a sniff test under fluoroscopy would demonstrate any paradoxical diaphragm motion. 04/05: Afebrile. Neurologically appears intact. Daughter concerned about "appears distant" however on 40 mcg/kg/min of propofol and 250 mcg an hour fentanyl. No bowel movement since admission. Tube feeding only at 20 cc an hour. 04/06: Afebrile. Neurologically intact. Following commands.. Positive BM. Labile blood pressures yesterday. Replace potassium currently. 04/07: Patient writing notes today. Chest x-ray clear. Elevated left diaphragm , probably dysfunctional. Continued encephalopathy and generalized weakness chris very concerning. We will try Aminophyllin today to see if we can get some diaphragm and central nervous system stimulation. 04/08: Started on theophylline yesterday. Check level in a.m. Will attempt PSV trial today. Noted pulmonology requests possible T-bar with ABG when appropriate. Afebrile. 04/09: T-max 100. theophylline currently 3.7. Currently on CPAP trials. 02/18. 45%. Check ABG at 10 today. Desaturated yesterday currently back at 40%. 04/10: Resting in bed. Episode of nausea overnight. Negative workup. Evaluated positive BM 04/08. Patient more agitated overnight. Propofol discontinued due to hypotension. Currently on fentanyl drip. Theophylline. Creatinine currently 2.0 we will consult nephrology. Discontinue lisinopril. Receiving one half normal saline bolus currently. 04/11: T-max 101.1. Increasing O2 records.Increasing white blood cell count. For the cuff is overinflated to palpate the vocal cords. Leak by examination. Will change ET tube in place central line today. Empirically start antibiotics for aspiration. Not tolerating tube feeds and currently to low inner wall suction. Check KUB after ET tube exchange and central line placement. Restart metoclopramide. Positive BMs. 04/12: Yesterday, CT thorax revealed collapsed left lower lung. Status post bronchoscopy with reinflation of lung. Better saturations today. Continues with small and large bowel colonic distention. Right: 11 cm. GI is following. Might need decompression. Current orogastric tube to low intermittent wall suction. 04/13: Improved small and large bowel colonic distention. Down to 8 cm long family discussion. We will perform percutaneous tracheostomy and PEG tube as well. Request second neurological opinion. In better spirits today. 04/14: no changes. awakens and follows commands. plan for trach today. 22: s/p trach yesterday. awake and alert. calm. looks more comfortable than yesterday. did not tolerate PRVC today, but tolerates PSV with high support (24/ 5/35%). SUBJECTIVE: 2/3: complaining of new RUQ pain. ?+Fry's sign. labs wnl today. no other complaints. denies nausea or vomiting. still has diarrhea, but this is slowing down after holding bowel regimen. ROS otherwise negative. 04/17: Gallbladder ultrasound appears benign. No new complaints. 04/18: Remains on the vent. Tolerated approximately 7 hours of CPAP yesterday with high PS. Still complaining of diarrhea. Most likely induced by tube feeds. Potassium remains low at 2.7. Potassium replacement in addition to protocol given followed by KCl 20 meq twice daily scheduled. Probably GI loss 04/19: Clinically improving tolerating CPAP better today. Pressure support reduced to 12. Near normal strength normal reflexes normal sensation. Continue aggressive potassium and phosphorus replacement. 04/20: Irrigation Wood placed and bladder for removal of large blood clots. Will delay bedside sniff test until urinary problems clear up. Anticipate indirect laryngoscopy to nasal approach soon. Objective Vital Signs / I&O: Vital Signs 04/19/18 10:00 04/19/18 10:56 04/19/18 11:00 Temperature Pulse Rate 92 H 86 Respiratory Rate 18 18 17 Blood Pressure 189/93 H 170/97 H Pulse Oximetry 99 100 100 04/19/18 11:20 04/19/18 11:51 04/19/18 11:52 Temperature Pulse Rate 79 Respiratory Rate 18 15 Blood Pressure Pulse Oximetry 100 99 04/19/18 12:00 04/19/18 13:00 04/19/18 14:00 Temperature 98.5 F Pulse Rate 85 81 76 Respiratory Rate 20 18 18 Blood Pressure 150/78 H 139/75 148/76 H Pulse Oximetry 95 97 100 04/19/18 15:00 04/19/18 15:39 04/19/18 16:00 Temperature 98.2 F Pulse Rate 94 H 88 97 H Respiratory Rate 21 17 19 Blood Pressure 142/81 H 150/84 H Pulse Oximetry 97 98 96 04/19/18 17:00 04/19/18 18:00 04/19/18 19:00 Temperature Pulse Rate 98 H 86 82 Respiratory Rate 18 16 Blood Pressure 170/97 H 173/92 H Pulse Oximetry 100 100 100 04/19/18 19:01 04/19/18 19:43 04/19/18 20:00 Temperature Pulse Rate 81 87 95 H Respiratory Rate 17 Blood Pressure 167/81 H Pulse Oximetry 100 100 98 04/19/18 20:01 04/19/18 21:00 04/19/18 21:01 Temperature Pulse Rate 93 H 88 87 Respiratory Rate Blood Pressure 164/79 H 145/69 H Pulse Oximetry 98 100 100 04/19/18 22:00 04/19/18 22:01 04/19/18 23:00 Temperature Pulse Rate 101 H 101 H 96 H Respiratory Rate Blood Pressure 163/80 H Pulse Oximetry 99 98 100 04/19/18 23:01 04/19/18 23:54 04/20/18 00:00 Temperature Pulse Rate 95 H 95 H 91 H Respiratory Rate 16 Blood Pressure 165/84 H Pulse Oximetry 100 97 100 04/20/18 00:01 04/20/18 01:00 04/20/18 01:01 Temperature Pulse Rate 92 H 85 88 Respiratory Rate Blood Pressure 167/83 H 146/76 H Pulse Oximetry 100 99 99 04/20/18 02:00 04/20/18 02:01 04/20/18 03:00 Temperature Pulse Rate 96 H 96 H 84 Respiratory Rate Blood Pressure 166/81 H Pulse Oximetry 97 99 100 04/20/18 03:01 04/20/18 04:00 04/20/18 04:01 Temperature Pulse Rate 77 97 H 95 H Respiratory Rate Blood Pressure 162/86 H 174/80 H Pulse Oximetry 100 99 99 04/20/18 04:32 04/20/18 05:00 04/20/18 05:01 Temperature Pulse Rate 88 79 79 Respiratory Rate 15 15 Blood Pressure 147/77 H Pulse Oximetry 99 100 100 04/20/18 06:00 04/20/18 06:01 04/20/18 07:00 Temperature Pulse Rate 79 77 83 Respiratory Rate 15 Blood Pressure 158/81 H Pulse Oximetry 100 100 98 04/20/18 07:01 04/20/18 08:00 04/20/18 08:01 Temperature 98.4 F Pulse Rate 82 85 85 Respiratory Rate Blood Pressure 148/77 H 160/81 H Pulse Oximetry 99 97 98 04/20/18 08:11 Temperature Pulse Rate Respiratory Rate 15 Blood Pressure Pulse Oximetry 98 Intake & Output 04/19/18 04/20/18 04/20/18 18:59 06:59 18:59 Intake Total 1981 100 / 100 Output Total 2510 / 2510 1200 / 1200 Balance -528 / -528 -1100 / -1100 Weight 87.3 kg Intake: IV 460 / 460 100 / 100 Zosyn 4.5 GM Premix 4.5 gm In 200 / 200 100 / 100 100 ml @ 200 mls/hr IV.SIG Q6H GIGI Rx#:[id number] Potassium Phosphate Inj 30 MMOL 260 / 260 In NS Inj 250 ML @ 42 mls/hr IV.SIG UNSCH PRN Rx#:[id number] Tube Feeding 482 / 482 Water Bolus Amount 400 / 400 Free Water Amount 400 / 400 Other 240 / 240 Output: Stool 500 / 500 Urine Amount (Catheter) 2009 1200 / 1200 3-way Urethral 1660 / 1660 1200 / 1200 Condom 350 / 350 Other: Bladder Irrigation Fluid - Amount Instilled 3-way Urethral 3,000 5,900 Bladder Irrigation Fluid - Amount Drained 3-way Urethral 3,000 5,900 # Incontinent Voids 3 Date of Last Bowel Movement 04/19/18 04/19/18 # Incontinent Bowel Movements 1 Result Diagrams: 04/20/18 04:02 04/20/18 04:02 Objective Remarks: GENERAL: 67-year-old male currently trached. Awake alert SKIN: Warm and dry. HEAD: Atraumatic. Normocephalic. EYES: Pupils equal and round. No scleral icterus. No injection or drainage. ENT: No nasal bleeding or discharge. Mucous membranes pink and moist. Dobbhoff tube in place NECK: Trachea midline. No JVD. Trach site without significant oozing CARDIOVASCULAR: RRR sinus. Normal S1-S2 RESPIRATORY: Lungs generally clear. Tolerating longer stretches of spontaneous breathing trials but requiring elevated pressure support. GASTROINTESTINAL: Abdomen slightly protuberant/non-tender, soft, bowel sounds active MUSCULOSKELETAL: Extremities without clubbing, cyanosis, trace to 1+ edema. No obvious deformities. NEUROLOGICAL: Follows commands and moves extremities to command. No focal deficits. Strength appears near normal today Assessment and Plan - Assessment and Plan Plan: Neuro/Psych: History of anterior C5/6 microdiscectomy with fusion Not requiring any continuous sedation at this time Goal of RASS 0 Evaluated by neurosurgery/Dr. Viera. No intervention planned at this time CT brain/MRI C-spine negative EEG revealed no epileptic activity Neurology following. Recommend myasthenia gravis lab. Negative to date. No evidence of GBS Left diaphragm remains elevated, suspect not functioning well. Requested second opinion for neurological status See neurology note. Overall strength clinically improving Need aggressive potassium and phosphorus replacement Wound remains well healed and clean CV: Systolic heart failure unknown if acute or chronic Essential hypertension Hyperlipidemia Ejection fraction 45% on admission. Appreciate cardiac evaluation by Dr. Escobedo. No plans at this time Holding amlodipine 10 mg daily, and metoprolol tartrate 12.5 mg twice daily for hypertension Holding clonidine 0.1 twice daily and lisinopril 5 mg daily in light of hypotension/lisinopril for acute kidney injury Continue pravastatin 40 mg daily for dyslipidemia. Continue aspirin 81 mg by mouth daily. Still holding antihypertensives. Holding aspirin while bladder bleeding continues Resp: Acute hypercapnic respiratory failure- now chronic Klebsiella oxytoca pneumonia PRVC ventilation. Ventilator bundle. Head of bed at 30 degrees Albuterol/ipratropium aerosols every 4 hours with albuterol aerosols every 2 hours as needed dyspnea Will need sniff test to assess diaphragmatic function once off vent We will consult ENT to assess vocal cords when appropriate Appreciate pulmonary input. Spontaneous breathing trial daily. 02/08 discontinued theophylline 400 mg daily acute delirium. Noted level. 04/09 3.7 Status post bronchoscopy 04/11. Thick white purulent secretions left lower lobe suction to clear. General surgery s/p percutaneous tracheostomy 04/14: Dr. Conde daily weaning of CPAP/pressure support. May need to progress to a fenestrated trach tube to adequately assess vocal cords GI: Gastroesophageal reflux disease Transaminitis Hypoalbuminemia Ileus new RUQ pain Tube feeding at 60 cc an hour days. At home on pantoprazole 40 mg daily. Currently on lansoprazole 30 mg daily holding bowel regimen for diarrhea add fiber to diet. RUQ ultrasound -benign Follow liver function tests, lipase : Irrigation Wood in place because of acute bladder bleeding with clots Endo: Hypothyroidism Hypokalemia Hypophosphatemia TSH 1.28. Continue levothyroxine 125 mg by mouth daily Sliding scale insulin if indicated to maintain euglycemia Aggressive electrolyte replacement Continue scheduled Renal: Kidney injury - acute, resolved. Avoid all nephrotoxic medications Creatinine currently 1.1 Neurology consultation for evaluation this is contrast-induced nephropathy from scans 03/31. Avoid nephrotoxic medication. Lisinopril discontinued. Accurate I's and O's Heme: Normocytic anemia Leukocytosis Monitor CBC daily. Follow trends per No indication for transfusion of blood proximal to this time. ID: Klebsiella oxytoca pneumonia sputum 04/01 Completed with ceftriaxone per infectious disease. Started on piperacillin/tazobactam 04/11 due to aspiration, anticipated stop date 04/19 Lumbar puncture negative. HSV negative No growth to date on other cultures aside from sputum Lung ceron remain clear FEN: Hypernatremia-resolved Hypopotassemia Hypokalemia Free water 200 cc every 6 hours. Replace electrolytes as clinically indicated per ICU electrolyte protocol. Recheck electrolytes in a.m. Increase scheduled potassium replacement 50 MEQ twice daily MSK: PT evaluate and treat up to chair daily OT evaluate and treat Access -Utilize peripheral IV. Prophylaxis -GI -lansoprazole -DVT -SCD/enoxaparin Overall impression: Remains weak and de condition. We need to continue to work on nutrition and gentle weaning. OOB and working with PT daily. Will review vocal cords and diaphragmatic function shortly, waiting for bladder bleeding problem to subside.
[2018-04-20] MEDS: Magnesium Oxide 400 MG Tablet PO SCH ×2 (10:05→23:56)
[2018-04-20] MEDS ORDERED: Belladonna Alkaloid/Opium 60 MG Supp RECTAL PRN (11:10)
--- NOTE | 2018-04-20 11:10 | P.PNURO ---
Subjective Patient symptoms today: Pt seen and examined. Lehman catheter placed yesterday after pt developed clots. CT scan reviewed and no clear explanation noted for gross hematuria other then h /o lehman trauma and on Lovenox. Now off anticoagulation. Objective Vital Signs: Vital Signs 04/19/18 11:20 04/19/18 11:51 04/19/18 11:52 Temperature Pulse Rate 79 Respiratory Rate 18 15 Blood Pressure Pulse Oximetry 100 99 04/19/18 12:00 04/19/18 13:00 04/19/18 14:00 Temperature 98.5 F Pulse Rate 85 81 76 Respiratory Rate 20 18 18 Blood Pressure 150/78 H 139/75 148/76 H Pulse Oximetry 95 97 100 04/19/18 15:00 04/19/18 15:39 04/19/18 16:00 Temperature 98.2 F Pulse Rate 94 H 88 97 H Respiratory Rate 21 17 19 Blood Pressure 142/81 H 150/84 H Pulse Oximetry 97 98 96 04/19/18 17:00 04/19/18 18:00 04/19/18 19:00 Temperature Pulse Rate 98 H 86 82 Respiratory Rate 18 16 Blood Pressure 170/97 H 173/92 H Pulse Oximetry 100 100 100 04/19/18 19:01 04/19/18 19:43 04/19/18 20:00 Temperature Pulse Rate 81 87 95 H Respiratory Rate 17 Blood Pressure 167/81 H Pulse Oximetry 100 100 98 04/19/18 20:01 04/19/18 21:00 04/19/18 21:01 Temperature Pulse Rate 93 H 88 87 Respiratory Rate Blood Pressure 164/79 H 145/69 H Pulse Oximetry 98 100 100 04/19/18 22:00 04/19/18 22:01 04/19/18 23:00 Temperature Pulse Rate 101 H 101 H 96 H Respiratory Rate Blood Pressure 163/80 H Pulse Oximetry 99 98 100 04/19/18 23:01 04/19/18 23:54 04/20/18 00:00 Temperature Pulse Rate 95 H 95 H 91 H Respiratory Rate 16 Blood Pressure 165/84 H Pulse Oximetry 100 97 100 04/20/18 00:01 04/20/18 01:00 04/20/18 01:01 Temperature Pulse Rate 92 H 85 88 Respiratory Rate Blood Pressure 167/83 H 146/76 H Pulse Oximetry 100 99 99 04/20/18 02:00 04/20/18 02:01 04/20/18 03:00 Temperature Pulse Rate 96 H 96 H 84 Respiratory Rate Blood Pressure 166/81 H Pulse Oximetry 97 99 100 04/20/18 03:01 04/20/18 04:00 04/20/18 04:01 Temperature Pulse Rate 77 97 H 95 H Respiratory Rate Blood Pressure 162/86 H 174/80 H Pulse Oximetry 100 99 99 04/20/18 04:32 04/20/18 05:00 04/20/18 05:01 Temperature Pulse Rate 88 79 79 Respiratory Rate 15 15 Blood Pressure 147/77 H Pulse Oximetry 99 100 100 04/20/18 06:00 04/20/18 06:01 04/20/18 07:00 Temperature Pulse Rate 79 77 83 Respiratory Rate 15 Blood Pressure 158/81 H Pulse Oximetry 100 100 98 04/20/18 07:01 04/20/18 08:00 04/20/18 08:01 Temperature 98.4 F Pulse Rate 82 85 85 Respiratory Rate Blood Pressure 148/77 H 160/81 H Pulse Oximetry 99 97 98 04/20/18 08:11 Temperature Pulse Rate Respiratory Rate 15 Blood Pressure Pulse Oximetry 98 Intake & Output 04/19/18 04/20/18 04/20/18 18:59 06:59 18:59 Intake Total 1981 100 / 100 Output Total 2510 / 2510 1200 / 1200 Balance -528 / -528 -1100 / -1100 Weight 87.3 kg Intake: IV 460 / 460 100 / 100 Zosyn 4.5 GM Premix 4.5 gm In 200 / 200 100 / 100 100 ml @ 200 mls/hr IV.SIG Q6H JE Rx#:[id number] Potassium Phosphate Inj 30 MMOL 260 / 260 In NS Inj 250 ML @ 42 mls/hr IV.SIG UNSCH PRN Rx#:[id number] Tube Feeding 482 / 482 Water Bolus Amount 400 / 400 Free Water Amount 400 / 400 Other 240 / 240 Output: Stool 500 / 500 Urine Amount (Catheter) 2009 1200 / 1200 3-way Urethral 1660 / 1660 1200 / 1200 Condom 350 / 350 Other: Bladder Irrigation Fluid - Amount Instilled 3-way Urethral 3,000 5,900 Bladder Irrigation Fluid - Amount Drained 3-way Urethral 3,000 5,900 # Incontinent Voids 3 Date of Last Bowel Movement 04/19/18 04/19/18 # Incontinent Bowel Movements 1 Result Diagrams: 04/20/18 04:02 04/20/18 04:02 Imaging: Impressions Abdomen/Pelvis CT 04/19/18 10:15 CONCLUSION: 1. Tiny 1 mm calculus now noted in the posterior left side of the bladder which could represent a small bladder calculi or distal ureteral calculus. 2. The left kidney appears unremarkable and there is no hydronephrosis. The ureters appear within normal limits. 3. Single tiny nonobstructing right renal calculus without change. The previously noted complex cystic lesion in the lower pole is faintly visualized. 4. Nonspecific bowel gas pattern which may represent an ileus. Medications and IVs: Active Medications Generic Name Dose Route Start Last Admin Trade Name Freq PRN Reason Stop Dose Admin Acetaminophen 650 mg 04/10/18 08:00 04/16/18 21:02 Tylenol PO 650 mg Q6H PRN Administration Temp > 100.4 Albuterol 1 ampul 04/05/18 12:00 04/20/18 08:09 Duoneb Neb (Je) NEB 1 ampul Q4HR NEB JE Administration Albuterol 2.5 mg 04/05/18 09:00 Albuterol Neb (Prn) NEB Q2HR NEB PRN DYSPNEA Artificial Tears 1 drop 04/05/18 09:00 04/20/18 09:47 Tears Naturale Opth Drops EACH EYE 1 drop Q8H JE Administration Aspirin 81 mg 04/10/18 09:00 04/19/18 08:01 Aspirin Chew PO 81 mg DAILY JE Administration Chlorhexidine Gluconate 15 ml 03/31/18 20:00 04/20/18 09:42 Peridex 0.12% Oral Kit OROPHARYNG 15 ml BID@0800,2000 JE Administration Enoxaparin Sodium 40 mg 04/06/18 12:00 04/19/18 08:01 Lovenox Inj SQ 40 mg DAILY JE Administration Hydralazine HCl 50 mg 04/16/18 19:15 04/20/18 05:19 Apresoline PO 50 mg Q8HR JE Administration Magnesium Sulfate 4 gm/ Sodium 100 mls @ 50 mls/hr 04/12/18 06:15 Chloride IV.SIG UNSCH PRN For Magnesium 0.9 - 1.1 mg/dL Potassium Chloride 40 meq in 100 mls @ 25 mls/hr 04/12/18 06:15 04/15/18 06: 37 Kcl 40 Meq Premix Inj IV.SIG Infused Q2H PRN Infusion For Potassium 2.8 - 3.2 mEq/L Potassium Chloride 20 meq in 100 mls @ 50 mls/hr 04/12/18 06:15 Kcl 20 Meq Premix Inj IV.SIG Q2H PRN For Potassium 3.3 - 3.5 mEq/L Potassium Chloride 40 meq in 100 mls @ 25 mls/hr 04/12/18 06:15 04/12/18 10: 35 Kcl 40 Meq Premix Inj IV.SIG Infused UNSCH PRN Infusion For Potassium 3.3 - 3.5 mEq/L Potassium Chloride 20 meq in 100 mls @ 50 mls/hr 04/12/18 06:15 04/20/18 06: 05 Kcl 20 Meq Premix Inj IV.SIG 50 mls/hr Q2H PRN Administration For Potassium 2.8 - 3.2 mEq/L Potassium Phosphate 30 mmol/ 260 mls @ 42 mls/hr 04/12/18 06:15 04/19/18 15: 35 Sodium Chloride IV.SIG Infused UNSCH PRN Infusion SEE LABEL COMMENTS Magnesium Sulfate 2 gm/ Sodium 100 mls @ 50 mls/hr 04/12/18 06:15 Chloride IV.SIG UNSCH PRN For Magnesium 1.2 - 1.6 mg/dL Sodium Phosphate 30 mmol/ 260 mls @ 42 mls/hr 04/12/18 06:15 Sodium Chloride IV.SIG UNSCH PRN For Phosphorus < 2.5 mg/dL Labetalol HCl 20 mg 04/09/18 17:00 04/18/18 11:50 Trandate Inj IV.PUSH 20 mg Q1H PRN Administration SBP > 160 Lansoprazole 30 mg 04/10/18 09:00 04/20/18 09:47 Prevacid Solutab NG/OG 30 mg DAILY JE Administration Levothyroxine Sodium 125 mcg 04/01/18 06:00 04/20/18 05:19 Synthroid PO 125 mcg DAILY@0600 JE Administration Magnesium Oxide 800 mg 04/12/18 06:15 Mag-Ox PO UNSCH PRN For Magnesium 1.2 - 1.6 mg/dL Magnesium Oxide 400 mg 04/19/18 11:00 04/20/18 10:05 Mag-Ox PO 400 mg BID@1100,2300 JE Administration Miscellaneous 1 each 04/19/18 11:31 Pill Splitter OTHER UNSCH PRN SEE LABEL COMMENTS Miscellaneous Medication 1 each 04/01/18 00:00 04/20/18 04:46 OROPHARYNG Not Given 0000,0400,1200,1600 JE Ondansetron HCl 4 mg 04/10/18 08:03 Zofran Inj IV.PUSH Q4H PRN NAUSEA OR VOMITING Oxycodone HCl 5 mg 04/16/18 13:22 04/16/18 13:36 Roxicodone Intensol Liq PO 5 mg Q4H PRN Administration pain 4-6 Oxymetazoline HCl 2 spray 04/19/18 15:32 Afrin 0.05% Nasal [place] NASAL Q12H PRN Bronchoscopy Polyethylene Glycol 17 gm 04/05/18 09:00 04/15/18 21:00 Miralax PO Not Given BID JE Potassium Chloride 40 meq 04/12/18 06:15 04/17/18 17:38 Kcl Liq PO 40 meq UNSCH PRN Administration Potassium level 3.3-3.5 mEq/L Potassium Chloride 40 meq 04/12/18 06:15 04/16/18 14:59 Kcl Liq PO 40 meq UNSCH PRN Administration Potassium level 3.3-3.5 mEq/L Potassium Chloride 50 meq 04/19/18 10:30 04/20/18 09:43 Kcl Liq PO 50 meq BID JE Administration Potassium Phosphate 2,000 mg 04/12/18 06:15 04/17/18 10:48 K-Phos Original PO 2,000 mg Q4H PRN Administration Phosphorus Less Than 2.5 mg/dL Potassium Phosphate 2,000 mg 04/12/18 06:15 K-Phos Original PO UNSCH PRN SEE LABEL COMMENTS Pravastatin Sodium 40 mg 03/31/18 21:00 04/19/18 22:01 Pravachol PO 40 mg HS JE Administration Psyllium Hydrophilic Mucilloid 1 pack 04/18/18 09:00 04/20/18 09:30 Metamucil Fiber Sf Pkt NG/OG Not Given DAILY [facility] Pyridostigmine [place] 60 mg 04/20/18 08:00 04/20/18 09:47 Mestinon PO 60 mg Q4HR JE Administration Sodium Chloride 2 ml 03/31/18 21:00 04/20/18 09:30 Ns Flush IV.FLUSH Not Given BID JE Sodium Chloride 2 ml 03/31/18 17:02 Ns Flush IV.FLUSH PRN PRN FLUSH AFTER USING IV ACCESS Sodium Chloride 0 ml 04/11/18 09:00 04/20/18 09:31 Ns Flush IV.FLUSH Not Given DAILY JE Sterile Water 200 ml 04/19/18 12:00 04/20/18 05:19 Free Water NG/OG Not Given Q6HR JE Objective Remarks: Abd:soft,nd, slight SP tenderness Lehman with some hematuria on slow CBI-clearing Assessment and Plan - Plan 67 y.o male with onset of gross hematuria Continue lehman drainage and CBI B&O suppository for bladder spasms.
--- NOTE | 2018-04-20 12:45 | P.PN ---
Subjective Interval history: Tolerated CPAP yesterday. Had some bleeding from urinary bladder. Now improved. 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 Bedside sniff test to be done. On tube feedings. Physical Exam Vital signs: Vital Signs 04/19/18 13:00 04/19/18 14:00 04/19/18 15:00 Temperature Pulse Rate 81 76 94 H Respiratory Rate 18 18 21 Blood Pressure 139/75 148/76 H 142/81 H Pulse Oximetry 97 100 97 04/19/18 15:39 04/19/18 16:00 04/19/18 17:00 Temperature 98.2 F Pulse Rate 88 97 H 98 H Respiratory Rate 17 19 18 Blood Pressure 150/84 H 170/97 H Pulse Oximetry 98 96 100 04/19/18 18:00 04/19/18 19:00 04/19/18 19:01 Temperature Pulse Rate 86 82 81 Respiratory Rate 16 Blood Pressure 173/92 H 167/81 H Pulse Oximetry 100 100 100 04/19/18 19:43 04/19/18 20:00 04/19/18 20:01 Temperature Pulse Rate 87 95 H 93 H Respiratory Rate 17 Blood Pressure 164/79 H Pulse Oximetry 100 98 98 04/19/18 21:00 04/19/18 21:01 04/19/18 22:00 Temperature Pulse Rate 88 87 101 H Respiratory Rate Blood Pressure 145/69 H Pulse Oximetry 100 100 99 04/19/18 22:01 04/19/18 23:00 04/19/18 23:01 Temperature Pulse Rate 101 H 96 H 95 H Respiratory Rate Blood Pressure 163/80 H 165/84 H Pulse Oximetry 98 100 100 04/19/18 23:54 04/20/18 00:00 04/20/18 00:01 Temperature Pulse Rate 95 H 91 H 92 H Respiratory Rate 16 Blood Pressure 167/83 H Pulse Oximetry 97 100 100 04/20/18 01:00 04/20/18 01:01 04/20/18 02:00 Temperature Pulse Rate 85 88 96 H Respiratory Rate Blood Pressure 146/76 H Pulse Oximetry 99 99 97 04/20/18 02:01 04/20/18 03:00 04/20/18 03:01 Temperature Pulse Rate 96 H 84 77 Respiratory Rate Blood Pressure 166/81 H 162/86 H Pulse Oximetry 99 100 100 04/20/18 04:00 04/20/18 04:01 04/20/18 04:32 Temperature Pulse Rate 97 H 95 H 88 Respiratory Rate 15 Blood Pressure 174/80 H Pulse Oximetry 99 99 99 04/20/18 05:00 04/20/18 05:01 04/20/18 06:00 Temperature Pulse Rate 79 79 79 Respiratory Rate 15 Blood Pressure 147/77 H Pulse Oximetry 100 100 100 04/20/18 06:01 04/20/18 07:00 04/20/18 07:01 Temperature Pulse Rate 77 83 82 Respiratory Rate 15 Blood Pressure 158/81 H 148/77 H Pulse Oximetry 100 98 99 04/20/18 08:00 04/20/18 08:01 04/20/18 08:11 Temperature 98.4 F Pulse Rate 85 85 Respiratory Rate 15 Blood Pressure 160/81 H Pulse Oximetry 97 98 98 04/20/18 09:00 04/20/18 09:01 04/20/18 10:00 Temperature Pulse Rate 87 92 H 92 H Respiratory Rate Blood Pressure 147/81 H Pulse Oximetry 96 96 98 04/20/18 10:01 04/20/18 11:00 04/20/18 11:01 Temperature Pulse Rate 91 H 93 H 94 H Respiratory Rate Blood Pressure 160/77 H 166/85 H Pulse Oximetry 98 99 99 04/20/18 11:48 04/20/18 11:49 04/20/18 12:00 Temperature 99.2 F Pulse Rate 91 H 95 H Respiratory Rate 18 Blood Pressure Pulse Oximetry 99 96 04/20/18 12:01 Temperature Pulse Rate 96 H Respiratory Rate Blood Pressure 190/91 H Pulse Oximetry 96 Intake & Output 04/19/18 04/20/18 04/20/18 18:59 06:59 18:59 Intake Total 1981 100 / 100 Output Total 2510 / 2510 1200 / 1200 Balance -528 / -528 -1100 / -1100 Weight 87.3 kg Intake: IV 460 / 460 100 / 100 Zosyn 4.5 GM Premix 4.5 gm In 200 / 200 100 / 100 100 ml @ 200 mls/hr IV.SIG Q6H GIGI Rx#:[id number] Potassium Phosphate Inj 30 MMOL 260 / 260 In NS Inj 250 ML @ 42 mls/hr IV.SIG UNSCH PRN Rx#:[id number] Tube Feeding 482 / 482 Water Bolus Amount 400 / 400 Free Water Amount 400 / 400 Other 240 / 240 Output: Stool 500 / 500 Urine Amount (Catheter) 2009 1200 / 1200 3-way Urethral 1660 / 1660 1200 / 1200 Condom 350 / 350 Other: Bladder Irrigation Fluid - Amount Instilled 3-way Urethral 3,000 5,900 Bladder Irrigation Fluid - Amount Drained 3-way Urethral 3,000 5,900 # Incontinent Voids 3 Date of Last Bowel Movement 04/19/18 04/19/18 04/20/18 # Incontinent Bowel Movements 1 Narrative: GENERAL: Elderly white male on ventilator support SKIN: Warm and dry. HEAD: Atraumatic. Normocephalic. EYES: Pupils equal and round. No scleral icterus. No injection or drainage. ENT: No nasal bleeding or discharge. Mucous membranes pink and moist. NECK: Trachea midline. No JVD. Trach tube is in CARDIOVASCULAR: Regular rate and rhythm. RESPIRATORY: Decreased breath sounds at the bases with occasional wheezes. Breath sounds equal bilaterally. GASTROINTESTINAL: Abdomen soft, non-tender, nondistended. Hepatic and splenic margins not palpable. MUSCULOSKELETAL: Extremities without clubbing, cyanosis, or edema. No obvious deformities. NEUROLOGICAL: Awake and alert. No obvious cranial nerve deficits. Motor grossly within normal limits. PSYCHIATRIC: Appropriate mood and affect. - Urinary Catheter Management Indwelling Urethral Catheter Cath placed during this visit: yes, but has since been removed by the nurse Reason for continuing: Continue criteria not met Insertion date: 04/10/18 Insertion time: 01:45 Removal date: 04/15/18 Removal time: 17:05 Condom Cath placed during this visit: no 3-way Urethral Cath placed during this visit: no Results - Labs CBC & Chem 7: 04/20/18 04:02 04/20/18 04:02 Laboratory Results - last 24 hr 04/19/18 04/19/18 04/19/18 14:23 17:35 18:45 WBC RBC Hgb Hct MCV MCH MCHC RDW Plt Count MPV Sodium Potassium 3.4 L D Chloride Carbon Dioxide Anion Gap BUN Creatinine Estimated GFR Random Glucose Calcium Phosphorus 2.5 Magnesium 2.2 Urine Color Yellow Urine Clarity Hazy H Urine pH 6.0 Ur Specific [place] 1.010 Urine Protein 30 H Urine Glucose (UA) 50 Urine Ketones Negative Urine Occult Blood Large H Urine Nitrate Negative Urine Bilirubin Negative Urine Urobilinogen Less than 2 Ur Leukocyte Esterase Negative Urine RBC Urine WBC 3 Urine Bacteria Occasional H Micro UA Comment Cath-culture ind Ur Microscopic Review Not Reportable Urine Culture Comments Cath-cult indicated 04/20/18 04/20/18 04:02 04:02 WBC 11.6 H RBC 2.59 L Hgb 8.1 L Hct 23.7 L MCV 91.6 MCH 31.4 MCHC 34.2 RDW 14.8 Plt Count 336 MPV 9.0 Sodium 145 Potassium 3.1 L Chloride 110 H Carbon Dioxide 26.9 Anion Gap 8 BUN 14 Creatinine 0.61 Estimated GFR Greater than 89 Random Glucose 102 Calcium 7.6 L Phosphorus 2.2 L Magnesium 2.3 Urine Color Urine Clarity Urine pH Ur Specific [place] Urine Protein Urine Glucose (UA) Urine Ketones Urine Occult Blood Urine Nitrate Urine Bilirubin Urine Urobilinogen Ur Leukocyte Esterase Urine RBC Urine WBC Urine Bacteria Micro UA Comment Ur Microscopic Review Urine Culture Comments Assessment and Plan - Assessment (1) Respiratory failure Code(s): J96.90 - Respiratory failure, unspecified, unspecified whether with hypoxia or hypercapnia Status: Acute (2) Atelectasis Code(s): J98.11 - Atelectasis Status: Acute (3) Neck pain, chronic Code(s): M54.2 - Cervicalgia; G89.29 - Other chronic pain Status: Chronic (4) Other cervical disc degeneration at C5-C6 level Code(s): M50.322 - Other cervical disc degeneration at C5-C6 level Status: Chronic (5) Protrusion of cervical intervertebral disc Code(s): M50.20 - Other cervical disc displacement, unspecified cervical region Status: Chronic (6) Adult failure to thrive Code(s): R62.7 - Adult failure to thrive Status: Acute (7) Shortness of breath Code(s): R06.02 - Shortness of breath Status: Acute (8) Weakness generalized Code(s): R53.1 - Weakness Status: Acute (9) Acute hyponatremia Code(s): E87.1 - Hypo-osmolality and hyponatremia Status: Acute (10) Ventilator dependent Code(s): Z99.11 - Dependence on respirator [ventilator] status Status: Acute - Plan 1 CPAP during the day 09/22 with FiO2 of 35% up to 10-hour 2 wean FiO2 to keep sats greater than 92 3. Chest x-ray CBC BMP in a.m. 4. DuoNeb nebs every 6 hours as needed 5. No sedation 6. Tracheal lavage and suction as needed 7. Continue Lovenox 40 mg subcu daily 8. Continue antibiotics per ID 9. CBC BMP in a.m. 10. Place on AC rate of 12 at night 11. PT evaluation 12. Up in chair as tolerated
--- NOTE | 2018-04-20 15:59 | P.PNID ---
Subjective Remarks: doing OK developped bleeding, on bladder irrigattions via Lehman placed for removal of large blood clots. bedside sniff test delayed until urinary problems clear up. Planned indirect laryngoscopy No fever mild leukocytosis 11 K + large secretions Antibiotics: Allergies/Adverse Reactions: Allergies Sulfa (Sulfonamide Antibiotics) Allergy (Severe, Verified 02/15/18 05:02) Nausea also flu like symptoms Objective Vital Signs 04/19/18 16:00 04/19/18 17:00 04/19/18 18:00 Temperature 98.2 F Pulse Rate 97 H 98 H 86 Respiratory Rate 19 18 16 Blood Pressure 150/84 H 170/97 H 173/92 H Pulse Oximetry 96 100 100 04/19/18 19:00 04/19/18 19:01 04/19/18 19:43 Temperature Pulse Rate 82 81 87 Respiratory Rate 17 Blood Pressure 167/81 H Pulse Oximetry 100 100 100 04/19/18 20:00 04/19/18 20:01 04/19/18 21:00 Temperature Pulse Rate 95 H 93 H 88 Respiratory Rate Blood Pressure 164/79 H Pulse Oximetry 98 98 100 04/19/18 21:01 04/19/18 22:00 04/19/18 22:01 Temperature Pulse Rate 87 101 H 101 H Respiratory Rate Blood Pressure 145/69 H 163/80 H Pulse Oximetry 100 99 98 04/19/18 23:00 04/19/18 23:01 04/19/18 23:54 Temperature Pulse Rate 96 H 95 H 95 H Respiratory Rate 16 Blood Pressure 165/84 H Pulse Oximetry 100 100 97 04/20/18 00:00 04/20/18 00:01 04/20/18 01:00 Temperature Pulse Rate 91 H 92 H 85 Respiratory Rate Blood Pressure 167/83 H Pulse Oximetry 100 100 99 04/20/18 01:01 04/20/18 02:00 04/20/18 02:01 Temperature Pulse Rate 88 96 H 96 H Respiratory Rate Blood Pressure 146/76 H 166/81 H Pulse Oximetry 99 97 99 04/20/18 03:00 04/20/18 03:01 04/20/18 04:00 Temperature Pulse Rate 84 77 97 H Respiratory Rate Blood Pressure 162/86 H Pulse Oximetry 100 100 99 04/20/18 04:01 04/20/18 04:32 04/20/18 05:00 Temperature Pulse Rate 95 H 88 79 Respiratory Rate 15 Blood Pressure 174/80 H Pulse Oximetry 99 99 100 04/20/18 05:01 04/20/18 06:00 04/20/18 06:01 Temperature Pulse Rate 79 79 77 Respiratory Rate 15 15 Blood Pressure 147/77 H 158/81 H Pulse Oximetry 100 100 100 04/20/18 07:00 04/20/18 07:01 04/20/18 08:00 Temperature 98.4 F Pulse Rate 83 82 85 Respiratory Rate Blood Pressure 148/77 H Pulse Oximetry 98 99 97 04/20/18 08:01 04/20/18 08:11 04/20/18 09:00 Temperature Pulse Rate 85 87 Respiratory Rate 15 Blood Pressure 160/81 H Pulse Oximetry 98 98 96 04/20/18 09:01 04/20/18 10:00 04/20/18 10:01 Temperature Pulse Rate 92 H 92 H 91 H Respiratory Rate Blood Pressure 147/81 H 160/77 H Pulse Oximetry 96 98 98 04/20/18 11:00 04/20/18 11:01 04/20/18 11:48 Temperature Pulse Rate 93 H 94 H 91 H Respiratory Rate 18 Blood Pressure 166/85 H Pulse Oximetry 99 99 04/20/18 11:49 04/20/18 12:00 04/20/18 12:01 Temperature 99.2 F Pulse Rate 95 H 96 H Respiratory Rate Blood Pressure 190/91 H Pulse Oximetry 99 96 96 04/20/18 15:51 Temperature Pulse Rate Respiratory Rate Blood Pressure Pulse Oximetry 97 Intake & Output 04/19/18 04/20/18 04/20/18 18:59 06:59 18:59 Intake Total 1981 100 / 100 200 / 200 Output Total 2510 / 2510 1200 / 1200 Balance -528 / -528 -1100 / -1100 200 / 200 Weight 87.3 kg Intake: IV 460 / 460 100 / 100 Zosyn 4.5 GM Premix 4.5 gm In 200 / 200 100 / 100 100 ml @ 200 mls/hr IV.SIG Q6H GIGI Rx#:[id number] Potassium Phosphate Inj 30 MMOL 260 / 260 In NS Inj 250 ML @ 42 mls/hr IV.SIG UNSCH PRN Rx#:[id number] Tube Feeding 482 / 482 Water Bolus Amount 400 / 400 Free Water Amount 400 / 400 200 / 200 Other 240 / 240 Output: Stool 500 / 500 Urine Amount (Catheter) 2009 1200 / 1200 3-way Urethral 1660 / 1660 1200 / 1200 Condom 350 / 350 Other: Bladder Irrigation Fluid - Amount Instilled 3-way Urethral 3,000 5,900 Bladder Irrigation Fluid - Amount Drained 3-way Urethral 3,000 5,900 # Incontinent Voids 3 Date of Last Bowel Movement 04/19/18 04/19/18 04/20/18 # Incontinent Bowel Movements 1 04/19/18 18:45 Catheterized Urine Urine Culture - Preliminary No growth in 24 hours 04/11/18 18:00 Bronchial Washings - Left Lower Lobe Fungal Smear - Final No fungal elements seen 04/11/18 18:00 Bronchial Washings - Left Lower Lobe Fungal Culture - Preliminary No growth in 1 week 04/11/18 18:00 Bronchial Washings - Left Lower Lobe Acid Fast Bacilli Smear - Final No acid fast bacilli seen 04/11/18 18:00 Bronchial Washings - Left Lower Lobe Mycobacterial Culture - Preliminary No growth in 1 week Lab - Hematology Results 04/19/18 04/20/18 04:00 04:02 WBC 9.5 11.6 H RBC 3.05 L 2.59 L Hgb 9.5 L 8.1 L Hct 27.9 L 23.7 L MCV 91.7 91.6 MCH 31.1 31.4 MCHC 33.9 34.2 RDW 14.9 14.8 Plt Count 363 336 MPV 9.4 9.0 Lab - Chemistry Results 04/18/18 04/19/18 04/19/18 20:04 04:00 14:23 Sodium 144 Potassium 2.4 L* D 3.4 L D Chloride 109 H Carbon Dioxide 24.9 Anion Gap 10 BUN 15 Creatinine 0.78 Estimated GFR Greater than 89 Random Glucose 114 H Calcium 7.8 L Phosphorus 2.5 2.4 L Magnesium 2.1 2.2 Total Bilirubin 0.4 AST 23 ALT 72 Alkaline Phosphatase 78 Total Protein 5.7 L Albumin 2.2 L 04/19/18 04/20/18 17:35 04:02 Sodium 145 Potassium 3.1 L Chloride 110 H Carbon Dioxide 26.9 Anion Gap 8 BUN 14 Creatinine 0.61 Estimated GFR Greater than 89 Random Glucose 102 Calcium 7.6 L Phosphorus 2.5 2.2 L Magnesium 2.3 Total Bilirubin AST ALT Alkaline Phosphatase Total Protein Albumin Imaging: ITS Impressions Head MRI 03/31/18 00:00 CONCLUSION: Negative exam Head CT 03/31/18 12:16 CONCLUSION: 1. Negative CT Head non contrast. . Chest CTA 03/31/18 14:39 CONCLUSION: 1. Bibasilar atelectatic changes, left greater than right. No confluent infiltrate. 2. No pulmonary embolus. 3. Atherosclerotic calcification of the coronary arteries. Cervical Spine MRI 03/31/18 16:17 CONCLUSION: 1. Status post fusion at the C5-C6 level. There is susceptibility artifact from the hardware. 2. A significant area of stenosis in the thecal sac is not seen. 3. Facet hypertrophy seen throughout with scattered areas of neural foraminal narrowing as described above. 4. The patient is intubated with fluid in the hypopharynx, laryngeal pharynx, and upper trachea around the ET tube and above the tracheal ET tube cuff. 5. The does appear to be some mild soft tissue swelling in the prevertebral region best seen on the sagittal images. Abdomen/Bladder Ultrasound 04/10/18 08:05 CONCLUSION: 1. Probable complex cyst coming off the right lower pole kidney appears smaller since 2017 CT examination of the abdomen. Chest CT 04/11/18 00:00 CONCLUSION: 1. Patchy nodular opacities in the right lower lobe coalescing posteriorly most consistent with an infectious etiology such as bronchopneumonia. 2. Near complete left lower lobe collapse and dense airspace consolidation in the posterior right lower lobe. Differential considerations include aspiration. 3. Coronary artery cavitations. Abdomen X-Ray 04/15/18 05:07 CONCLUSION: Dobbhoff tube tip now seen in the stomach. Gallbladder Ultrasound 04/16/18 00:00 CONCLUSION: 1. Minimal prominence of the gallbladder wall. No pericholecystic fluid is seen no stones are evident. 2. Increased echogenicity of the liver suggesting fatty infiltration. Chest X-Ray 04/19/18 06:00 CONCLUSION: 1. Stable left basilar opacity likely representing either atelectasis or airspace consolidation. 2. Feeding tube distal tip overlies the stomach. Abdomen/Pelvis CT 04/19/18 10:15 CONCLUSION: 1. Tiny 1 mm calculus now noted in the posterior left side of the bladder which could represent a small bladder calculi or distal ureteral calculus. 2. The left kidney appears unremarkable and there is no hydronephrosis. The ureters appear within normal limits. 3. Single tiny nonobstructing right renal calculus without change. The previously noted complex cystic lesion in the lower pole is faintly visualized. 4. Nonspecific bowel gas pattern which may represent an ileus. Physical Exam: GENERAL: NAD awake, unint'd SKIN: Warm and dry. HEAD: Atraumatic. Normocephalic. EYES: Pupils equal and round. No scleral icterus. No injection or drainage. ENT: No nasal bleeding or discharge. Mucous membranes pink and moist. NECK: Trach in place, + some secretons. No JVD. CARDIOVASCULAR: Regular , no murmurs, rubs or gallops RESPIRATORY: No accessory muscle use. Clear to auscultation. Breath sounds equal, decreased bilaterally. GASTROINTESTINAL: Abdomen soft, non-tender, nondistended. Hepatic and splenic margins not palpable. : lehman in place, urine is pink MUSCULOSKELETAL: Extremities without clubbing, cyanosis, + mild edema. No obvious deformities. NEUROLOGICAL: awake, alert PSYCHIATRIC: calm Assessment and Plan - Plan C spine fusion Hypercapnia difficulty breathing developped after surgery Kleb oxytoca PNA signs of PNA resolved cliniclaly and radiologically Acute VDRF, improving fever, low grade: resolved No e/o [employer] infx New leukocytosis - resolved ARF - resolved Aspiration PNA today's CXR Minimal bibasilar densities, sp abx : completed 2/6 Sepsis, improving abx associated diarrhea C.diff negative 2/2 Gu bleeding follow off abx CXR in am follow WBC breezy tijerina @ b/s breezy RN
[2018-04-21] MEDS: Artificial Tears Opth Drops 15 ML Bottle EACH EYE SCH ×3 (03:44→17:21)
[2018-04-21] MEDS: Pyridostigmine Bromide 60 MG Tablet PO SCH ×6 (03:44→20:44)
[2018-04-21] MEDS: Oral Hygiene Kit OROPHARYNG SCH ×4 (03:44→23:41)
--- NOTE | 2018-04-21 04:14 | XR ---
EXAM DATE: 04/21/2018 3:44 AM EST AGE/SEX: 67 years / Male INDICATIONS: Atelectasis. CLINICAL DATA: This is the patient's subsequent encounter. Patient reports that signs and symptoms h ave been present for 3 weeks and indicates a pain score of Nonresponsive. MEDICAL/SURGICAL HISTORY: . Thyroid disease. . Microdiscectomy. Left inguinal hernia repair. COMPARISON: C, CHEST 1V SINGLE AP, 04/19/2018. . FINDINGS: Stable tracheostomy and feeding type nasoenteric catheter coiled in the stomach. Persistent left basi lar airspace opacity. Cardiomediastinal contours are within normal limits. Remainder of the exam is u nchanged. CONCLUSION: 1. No significant interval change. 2. Stable tracheostomy and nasoenteric feeding catheter. 3. Stable left basilar airspace disease. Electronically signed by: Leo Ramirez MD Board Certified Radiologist 04/21/2018 4:13 AM EST
[2018-04-21 04:36] LABS: Hematocrit 23.1 % (39.0-51.0); Hemoglobin 7.8 gm/dL (13.0-17.0); Mean Corpuscular HGB Conc 33.7 % (32.0-36.0); Mean Corpuscular Hemoglobin 30.9 pg (27.0-34.0); Mean Corpuscular Volume 91.5 fL (80.0-100.0); Mean Platelet Volume 9.4 fL (7.0-11.0); Platelet Count 282 th/mm3 (150-450); Red Blood Count 2.52 mil/mm3 (4.50-5.90); Red Cell Distribution Width 15.1 % (11.6-17.2); White Blood Count 13.1 th/mm3 (4.0-11.0)
[2018-04-21 04:58] LABS: Anion Gap 5 meq/L (5-15); Blood Urea Nitrogen 12 mg/dL (7-18); Calcium 7.6 mg/dL (8.5-10.1); Carbon Dioxide 27.7 meq/L (21.0-32.0); Chloride 109 meq/L (98-107); Glomerular Filtration Rate Greater Than 89 mL/min (>89); Glucose,Random 91 mg/dL (74-106); Magnesium 2.4 mg/dL (1.5-2.5); Phosphorus 1.7 mg/dL (2.5-4.9); Potassium 3.7 meq/L (3.5-5.1); Sodium 142 meq/L (136-145)
[2018-04-21] MEDS: Levothyroxine 125 MCG Tablet PO SCH (06:35)
[2018-04-21] MEDS: hydrALAZINE 50 MG Tablet PO SCH ×3 (06:35→23:38)
--- NOTE | 2018-04-21 07:20 | P.PNNEU ---
Subjective Active Medications: Active Medications Acetaminophen (Tylenol) 650 mg PO Q6H PRN PRN Reason: Temp > 100.4 Last Admin: 04/16/18 21:02 Dose: 650 mg Albuterol (Duoneb Neb ([facility])) 1 ampul NEB Q4HR NEB [facility] Last Admin: 04/21/18 04:18 Dose: Not Given Albuterol (Albuterol Neb (Prn)) 2.5 mg NEB Q2HR NEB PRN PRN Reason: DYSPNEA Artificial Tears (Tears Naturale Opth Drops) 1 drop EACH EYE Q8H [facility] Last Admin: 04/21/18 03:44 Dose: 1 drop Aspirin (Aspirin Chew) 81 mg PO DAILY [facility] Last Admin: 04/19/18 08:01 Dose: 81 mg Belladonna Alkaloids/Opium (B & O Supp) 60 mg RECTAL Q6HR PRN PRN Reason: bladder spasms Chlorhexidine Gluconate (Peridex 0.12% Oral Kit) 15 ml OROPHARYNG BID@0800, 2000 [facility] Last Admin: 04/20/18 21:03 Dose: 15 ml Enoxaparin Sodium (Lovenox Inj) 40 mg SQ DAILY [facility] Last Admin: 04/19/18 08:01 Dose: 40 mg Hydralazine HCl (Apresoline) 50 mg PO Q8HR [facility] Last Admin: 04/21/18 06:35 Dose: 50 mg Magnesium Sulfate 4 gm/ Sodium (Chloride) 100 mls @ 50 mls/hr IV.SIG UNSCH PRN PRN Reason: For Magnesium 0.9 - 1.1 mg/dL Potassium Chloride (Kcl 40 Meq Premix Inj) 40 meq in 100 mls @ 25 mls/hr IV.SIG Q2H PRN PRN Reason: For Potassium 2.8 - 3.2 mEq/L Last Infusion: 04/15/18 06:37 Dose: Infused Potassium Chloride (Kcl 20 Meq Premix Inj) 20 meq in 100 mls @ 50 mls/hr IV.SIG Q2H PRN PRN Reason: For Potassium 3.3 - 3.5 mEq/L Potassium Chloride (Kcl 40 Meq Premix Inj) 40 meq in 100 mls @ 25 mls/hr IV.SIG UNSCH PRN PRN Reason: For Potassium 3.3 - 3.5 mEq/L Last Infusion: 04/12/18 10:35 Dose: Infused Potassium Chloride (Kcl 20 Meq Premix Inj) 20 meq in 100 mls @ 50 mls/hr IV.SIG Q2H PRN PRN Reason: For Potassium 2.8 - 3.2 mEq/L Last Admin: 04/20/18 06:05 Dose: 50 mls/hr Potassium Phosphate 30 mmol/ (Sodium Chloride) 260 mls @ 42 mls/hr IV.SIG UNSCH PRN PRN Reason: SEE LABEL COMMENTS Last Infusion: 04/19/18 15:35 Dose: Infused Magnesium Sulfate 2 gm/ Sodium (Chloride) 100 mls @ 50 mls/hr IV.SIG UNSCH PRN PRN Reason: For Magnesium 1.2 - 1.6 mg/dL Sodium Phosphate 30 mmol/ (Sodium Chloride) 260 mls @ 42 mls/hr IV.SIG UNSCH PRN PRN Reason: For Phosphorus < 2.5 mg/dL Labetalol HCl (Trandate Inj) 20 mg IV.PUSH Q1H PRN PRN Reason: SBP > 160 Last Admin: 04/18/18 11:50 Dose: 20 mg Lansoprazole (Prevacid Solutab) 30 mg NG/OG DAILY [facility] Last Admin: 04/20/18 09:47 Dose: 30 mg Levothyroxine Sodium (Synthroid) 125 mcg PO DAILY@0600 [facility] Last Admin: 04/21/18 06:35 Dose: 125 mcg Magnesium Oxide (Mag-Ox) 800 mg PO UNSCH PRN PRN Reason: For Magnesium 1.2 - 1.6 mg/dL Magnesium Oxide (Mag-Ox) 400 mg PO BID@1100,2300 [facility] Last Admin: 04/20/18 23:56 Dose: 400 mg Miscellaneous (Pill Splitter) 1 each OTHER UNSCH PRN PRN Reason: SEE LABEL COMMENTS Miscellaneous Medication () 1 each OROPHARYNG 0000,0400,1200,1600 [facility] Last Admin: 04/21/18 03:44 Dose: 1 each Ondansetron HCl (Zofran Inj) 4 mg IV.PUSH Q4H PRN PRN Reason: NAUSEA OR VOMITING Oxycodone HCl (Roxicodone Intensol Liq) 5 mg PO Q4H PRN PRN Reason: pain 4-6 Last Admin: 04/16/18 13:36 Dose: 5 mg Oxymetazoline HCl (Afrin 0.05% Nasal [place]) 2 spray NASAL Q12H PRN PRN Reason: Bronchoscopy Polyethylene Glycol (Miralax) 17 gm PO BID [facility] Last Admin: 04/15/18 21:00 Dose: Not Given Potassium Chloride (Kcl Liq) 40 meq PO UNSCH PRN PRN Reason: Potassium level 3.3-3.5 mEq/L Last Admin: 04/17/18 17:38 Dose: 40 meq Potassium Chloride (Kcl Liq) 40 meq PO UNSCH PRN PRN Reason: Potassium level 3.3-3.5 mEq/L Last Admin: 04/16/18 14:59 Dose: 40 meq Potassium Chloride (Kcl Liq) 50 meq PO BID [facility] Last Admin: 04/20/18 21:04 Dose: 50 meq Potassium Phosphate (K-Phos Original) 2,000 mg PO Q4H PRN PRN Reason: Phosphorus Less Than 2.5 mg/dL Last Admin: 04/17/18 10:48 Dose: 2,000 mg Potassium Phosphate (K-Phos Original) 2,000 mg PO UNSCH PRN PRN Reason: SEE LABEL COMMENTS Pravastatin Sodium (Pravachol) 40 mg PO HS [facility] Last Admin: 04/20/18 21:03 Dose: 40 mg Psyllium Hydrophilic Mucilloid (Metamucil Fiber Sf Pkt) 1 pack NG/OG DAILY [facility] Last Admin: 04/20/18 09:30 Dose: Not Given Pyridostigmine Veteran (Mestinon) 60 mg PO Q4HR [facility] Last Admin: 04/21/18 03:44 Dose: 60 mg Sodium Chloride (Ns Flush) 2 ml IV.FLUSH BID [facility] Last Admin: 04/20/18 21:04 Dose: 2 ml Sodium Chloride (Ns Flush) 2 ml IV.FLUSH PRN PRN PRN Reason: FLUSH AFTER USING IV ACCESS Sodium Chloride (Ns Flush) 0 ml IV.FLUSH DAILY [facility] Last Admin: 04/20/18 09:31 Dose: Not Given Sterile Water (Free Water) 200 ml NG/OG Q6HR [facility] Last Admin: 04/21/18 06:36 Dose: 200 ml Allergies/Adverse Reactions: Allergies Allergy/AdvReac Type Severity Reaction Status Date / Time Sulfa (Sulfonamide Allergy Severe Nausea Verified 02/15/18 05:02 Antibiotics) Physical Exam Vital signs: Vital Signs 04/20/18 08:00 04/20/18 08:01 02/07/19 08:11 Temperature 98.4 F Pulse Rate 85 85 Respiratory Rate 15 Blood Pressure 160/81 H Pulse Oximetry 97 98 98 04/20/18 09:00 04/20/18 09:01 04/20/18 10:00 Temperature Pulse Rate 87 92 H 92 H Respiratory Rate Blood Pressure 147/81 H Pulse Oximetry 96 96 98 04/20/18 10:01 04/20/18 11:00 04/20/18 11:01 Temperature Pulse Rate 91 H 93 H 94 H Respiratory Rate Blood Pressure 160/77 H 166/85 H Pulse Oximetry 98 99 99 04/20/18 11:48 04/20/18 11:49 04/20/18 12:00 Temperature 99.2 F Pulse Rate 91 H 95 H Respiratory Rate 18 Blood Pressure Pulse Oximetry 99 96 04/20/18 12:01 04/20/18 12:04 04/20/18 13:00 Temperature Pulse Rate 96 H 93 H 99 H Respiratory Rate Blood Pressure 190/91 H 171/76 H Pulse Oximetry 96 95 93 L 04/20/18 13:01 04/20/18 14:00 04/20/18 14:01 Temperature Pulse Rate 97 H 93 H 97 H Respiratory Rate Blood Pressure 169/100 H 169/83 H Pulse Oximetry 94 L 98 97 04/20/18 15:00 04/20/18 15:01 04/20/18 15:51 Temperature Pulse Rate 86 94 H Respiratory Rate Blood Pressure 157/78 H Pulse Oximetry 100 100 97 04/20/18 16:00 04/20/18 16:01 04/20/18 17:00 Temperature 99.1 F Pulse Rate 84 82 84 Respiratory Rate Blood Pressure 157/76 H Pulse Oximetry 96 95 99 04/20/18 17:01 04/20/18 18:00 04/20/18 18:01 Temperature Pulse Rate 87 88 87 Respiratory Rate Blood Pressure 155/74 H 156/80 H Pulse Oximetry 100 99 99 04/20/18 19:00 04/20/18 19:01 04/20/18 20:00 Temperature 98.7 F Pulse Rate 83 82 88 Respiratory Rate 15 Blood Pressure 142/73 H Pulse Oximetry 100 100 98 04/20/18 20:01 04/20/18 20:20 04/20/18 21:00 Temperature Pulse Rate 84 85 92 H Respiratory Rate 15 15 Blood Pressure 169/81 H Pulse Oximetry 98 99 98 04/20/18 21:01 04/20/18 22:00 04/20/18 22:01 Temperature Pulse Rate 92 H 89 89 Respiratory Rate 15 Blood Pressure 159/84 H 148/93 H Pulse Oximetry 98 98 100 04/20/18 23:00 04/20/18 23:01 04/20/18 23:51 Temperature Pulse Rate 83 83 94 H Respiratory Rate 15 16 Blood Pressure 149/70 H Pulse Oximetry 100 100 04/21/18 00:00 04/21/18 00:01 04/21/18 00:44 Temperature 99.2 F Pulse Rate 95 H 96 H Respiratory Rate 20 15 Blood Pressure 150/69 H Pulse Oximetry 96 96 98 04/21/18 01:00 04/21/18 01:01 04/21/18 02:00 Temperature Pulse Rate 79 78 83 Respiratory Rate 15 15 Blood Pressure 153/71 H Pulse Oximetry 100 100 99 04/21/18 02:01 04/21/18 03:00 04/21/18 03:01 Temperature Pulse Rate 81 79 78 Respiratory Rate 15 Blood Pressure 148/68 H 152/77 H Pulse Oximetry 99 100 100 04/21/18 04:00 04/21/18 04:01 04/21/18 04:19 Temperature 99.1 F Pulse Rate 72 71 Respiratory Rate 15 16 Blood Pressure 154/79 H Pulse Oximetry 100 100 100 04/21/18 05:00 04/21/18 05:01 04/21/18 06:00 Temperature Pulse Rate 84 82 81 Respiratory Rate Blood Pressure 156/73 H Pulse Oximetry 98 98 99 04/21/18 06:01 Temperature Pulse Rate 77 Respiratory Rate Blood Pressure 138/77 Pulse Oximetry 99 Intake & Output 04/20/18 04/21/18 04/21/18 18:59 06:59 18:59 Intake Total 1265 / 1265 1317 / 1317 Output Total 1974 1650 / 1650 Balance -710 / -710 -333 / -333 Weight 85.3 kg Intake: Tube Feeding 425 / 425 137 / 137 Tube Irrigant 180 / 180 Water Bolus Amount 400 / 400 400 / 400 Free Water Amount 200 / 200 600 / 600 Other 240 / 240 Output: Stool 450 / 450 Urine Amount (Catheter) 1525 / 1525 1650 / 1650 3-way Urethral 1525 / 1525 1650 / 1650 Other: Bladder Irrigation Fluid - Amount Instilled 3-way Urethral 6,000 5,100 Bladder Irrigation Fluid - Amount Drained 3-way Urethral 6,000 3,450 Date of Last Bowel Movement 04/20/18 04/20/18 # Incontinent Bowel Movements 1 Narrative: still not moving diaphragm well on 60 mestinon nl strength o/w - Urinary Catheter Management Indwelling Urethral Catheter Cath placed during this visit: yes, but has since been removed by the nurse Reason for continuing: Continue criteria not met Insertion date: 04/10/18 Insertion time: 01:45 Removal date: 04/15/18 Removal time: 17:05 Condom Cath placed during this visit: no 3-way Urethral Cath placed during this visit: no Objective Laboratory Results - last 24 hr 04/21/18 04/21/18 03:39 03:39 WBC 13.1 H RBC 2.52 L Hgb 7.8 L Hct 23.1 L MCV 91.5 MCH 30.9 MCHC 33.7 RDW 15.1 Plt Count 282 MPV 9.4 Sodium 142 Potassium 3.7 Chloride 109 H Carbon Dioxide 27.7 Anion Gap 5 BUN 12 Creatinine 0.54 L Estimated GFR Greater than 89 Random Glucose 91 Calcium 7.6 L Phosphorus 1.7 L Magnesium 2.4 Microbiology 04/19/18 18:45 Urine Culture - Preliminary Catheterized Urine No growth in 24 hours Review/Management - Review/Management Plan: Encephalopathy Likely secondary to respiratory failure, hypoxia, metabolic etiology Respiratory failure - Lactic acidosis - Hyperammonemia - Leukocytosis - Neuro checks Q1h - MRI brain and head CT scan was unremarkable for an acute intracranial abnormality - Will reassess after patient he is off sedation. - CSF analysis is unremarkable, pending culture and HSV PCR results - EEG with evidence of encephalopathy, no epileptiform discharges or electrographic seizure activity - I met with family members and discussed the current neurologic status - There is no indication to start AEDs. -DVT prophylaxis - GI prophylaxis - Neurology will follow up. - Dr. Farias will follow up on Tuesday04/03/2018. - Please call for questions 04/03/18 met enceph mri LP eeg neg labs neg my hope is off sedatives he should do fine no hx dementia nor pd acc to daughters labs ordered few more 04/04/18 much better ok to dc sedatives neurowise recheck abg still some jerking can recheck eeg when off vent I spoke with Dr Ortiz of pulmonary. 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 According to the pt and family this developed a week after the cervical spine surgery. Myasthenia labs are negative , which does not absolutely r/o myasthenia gravis. He does not have ptosis or other bulbar sx of MG. Guillain Mineral can affect respiration and phrenic nerves , but he has no limb weakness and DTRs are intact. Will discuss with Dr Farias possible empiric trial of ivig for possible atypical MG with normal labs. Will send serum JUANJO to be sure not IgA deficient before considering ivig 04/19/18 strength and dtr nl i dw dr puckett and family will try mestinon although unlikely mg 04/20/18 inc mestinon to 60 mg and watch breathing 04/21/18 no change on mestinon sniff test today will check iga level in case we do ivig not confident will help though really no clinical sign of mg nor aidp
--- NOTE | 2018-04-21 09:17 | P.PNCC ---
Subjective Subjective Remarks/Hospital Course: This 67-year-old came into the emergency room today with his and daughter. On 02/13/2018, he had a microdiscectomy, C5-C6, by Dr. Schwarz. He was discharged home the next day. A few days after, he had not been feeling well, short of breath, disoriented, generally weak, symptoms were getting worse, disorientation was worse. He was referred to emergency department by his primary care physician for an evaluation. In the ED he was found to be in severe hypercarbic respiratory acidosis and was intubated by ED attending. 04/01: CO2 retention corrected. Remains mildly alkalotic due to chronic CO2 elevation. PH normalized. Still requiring vasopressor therapy with norepinephrine. Broad-spectrum antibiotic coverage started. Lumbar puncture performed with opening pressure 20 and crystal-clear fluid, sent for cell counts , chemistries and culture. HSV included. One extra tube sent for future studies if necessary. Ammonia level 71 - repeat daily. 04/02: CSF appears benign. Repeat ammonia level normal. Gamma GT normal. Cardiac echo estimated of 45% ejection fraction requires a little additional investigation -patient has been chronically short of breath for several weeks now. Leukocytosis and left shift persists. Gram-positive cocci and white cells seen in sputum. This man clearly became acutely and critically ill - exact cause still eludes us. 04/03: Leukocytosis improved. Remains quite rigid when stimulated. Continues to move 4 limbs with purpose and follows commands with 4 limbs. Sputum demonstrates white blood cells and gram-negative rods. 04/04: Improved color and perfusion. Extubated yesterday afternoon but failed after about 45 minutes -developed somnolence then obtundation, appeared to be having difficulty taking a breath, concern for vocal cord dysfunction. On reintubation the cord edges were irregular but otherwise normal in appearance. I could not assess cord function as patient was not alert enough to cooperate with commands. We will definitely pursue possibilities of vocal cord dysfunction and or phrenic nerve paralysis once we get him extubated. Ideally, a sniff test under fluoroscopy would demonstrate any paradoxical diaphragm motion. 04/05: Afebrile. Neurologically appears intact. Daughter concerned about "appears distant" however on 40 mcg/kg/min of propofol and 250 mcg an hour fentanyl. No bowel movement since admission. Tube feeding only at 20 cc an hour. 04/06: Afebrile. Neurologically intact. Following commands.. Positive BM. Labile blood pressures yesterday. Replace potassium currently. 04/07: Patient writing notes today. Chest x-ray clear. Elevated left diaphragm , probably dysfunctional. Continued encephalopathy and generalized weakness chris very concerning. We will try Aminophyllin today to see if we can get some diaphragm and central nervous system stimulation. 04/08: Started on theophylline yesterday. Check level in a.m. Will attempt PSV trial today. Noted pulmonology requests possible T-bar with ABG when appropriate. Afebrile. 04/09: T-max 100. theophylline currently 3.7. Currently on CPAP trials. 02/18. 45%. Check ABG at 10 today. Desaturated yesterday currently back at 40%. 04/10: Resting in bed. Episode of nausea overnight. Negative workup. Evaluated positive BM 04/08. Patient more agitated overnight. Propofol discontinued due to hypotension. Currently on fentanyl drip. Theophylline. Creatinine currently 2.0 we will consult nephrology. Discontinue lisinopril. Receiving one half normal saline bolus currently. 04/11: T-max 101.1. Increasing O2 records.Increasing white blood cell count. For the cuff is overinflated to palpate the vocal cords. Leak by examination. Will change ET tube in place central line today. Empirically start antibiotics for aspiration. Not tolerating tube feeds and currently to low inner wall suction. Check KUB after ET tube exchange and central line placement. Restart metoclopramide. Positive BMs. 04/12: Yesterday, CT thorax revealed collapsed left lower lung. Status post bronchoscopy with reinflation of lung. Better saturations today. Continues with small and large bowel colonic distention. Right: 11 cm. GI is following. Might need decompression. Current orogastric tube to low intermittent wall suction. 04/13: Improved small and large bowel colonic distention. Down to 8 cm long family discussion. We will perform percutaneous tracheostomy and PEG tube as well. Request second neurological opinion. In better spirits today. 04/14: no changes. awakens and follows commands. plan for trach today. 22: s/p trach yesterday. awake and alert. calm. looks more comfortable than yesterday. did not tolerate PRVC today, but tolerates PSV with high support (24/ 5/35%). SUBJECTIVE: 2/3: complaining of new RUQ pain. ?+Fry's sign. labs wnl today. no other complaints. denies nausea or vomiting. still has diarrhea, but this is slowing down after holding bowel regimen. ROS otherwise negative. 04/17: Gallbladder ultrasound appears benign. No new complaints. 04/18: Remains on the vent. Tolerated approximately 7 hours of CPAP yesterday with high PS. Still complaining of diarrhea. Most likely induced by tube feeds. Potassium remains low at 2.7. Potassium replacement in addition to protocol given followed by KCl 20 meq twice daily scheduled. Probably GI loss 04/19: Clinically improving tolerating CPAP better today. Pressure support reduced to 12. Near normal strength normal reflexes normal sensation. Continue aggressive potassium and phosphorus replacement. 04/20: Irrigation Wood placed and bladder for removal of large blood clots. Will delay bedside sniff test until urinary problems clear up. Anticipate indirect laryngoscopy to nasal approach soon. 04/21: Bleeding from Wood catheter markedly reduced, just pink fluid now. Awake and alert this morning. We will attempt sniff test this morning under fluoroscopy. Update: Sniff test performed under fluoroscopy by Dr. Ritesh Damon shows no diaphragmatic function on either left or right side. The patient participated well with the testing clearly used his intercostal and shoulder muscles vigorously. This pattern is clearly more consistent with a neurological illness and pretty much eliminates the likelihood of traumatic etiology. Objective Vital Signs / I&O: Vital Signs 04/20/18 10:00 04/20/18 10:01 04/20/18 11:00 Temperature Pulse Rate 92 H 91 H 93 H Respiratory Rate Blood Pressure 160/77 H Pulse Oximetry 98 98 99 04/20/18 11:01 04/20/18 11:48 04/20/18 11:49 Temperature Pulse Rate 94 H 91 H Respiratory Rate 18 Blood Pressure 166/85 H Pulse Oximetry 99 99 04/20/18 12:00 04/20/18 12:01 04/20/18 12:04 Temperature 99.2 F Pulse Rate 95 H 96 H 93 H Respiratory Rate Blood Pressure 190/91 H 171/76 H Pulse Oximetry 96 96 95 04/20/18 13:00 04/20/18 13:01 04/20/18 14:00 Temperature Pulse Rate 99 H 97 H 93 H Respiratory Rate Blood Pressure 169/100 H Pulse Oximetry 93 L 94 L 98 04/20/18 14:01 04/20/18 15:00 04/20/18 15:01 Temperature Pulse Rate 97 H 86 94 H Respiratory Rate Blood Pressure 169/83 H 157/78 H Pulse Oximetry 97 100 100 04/20/18 15:51 04/20/18 16:00 04/20/18 16:01 Temperature 99.1 F Pulse Rate 84 82 Respiratory Rate Blood Pressure 157/76 H Pulse Oximetry 97 96 95 04/20/18 17:00 04/20/18 17:01 04/20/18 18:00 Temperature Pulse Rate 84 87 88 Respiratory Rate Blood Pressure 155/74 H Pulse Oximetry 99 100 99 04/20/18 18:01 04/20/18 19:00 04/20/18 19:01 Temperature Pulse Rate 87 83 82 Respiratory Rate Blood Pressure 156/80 H 142/73 H Pulse Oximetry 99 100 100 04/20/18 20:00 04/20/18 20:01 04/20/18 20:20 Temperature 98.7 F Pulse Rate 88 84 85 Respiratory Rate 15 15 Blood Pressure 169/81 H Pulse Oximetry 98 98 99 04/20/18 21:00 04/20/18 21:01 04/20/18 22:00 Temperature Pulse Rate 92 H 92 H 89 Respiratory Rate 15 15 Blood Pressure 159/84 H Pulse Oximetry 98 98 98 04/20/18 22:01 04/20/18 23:00 04/20/18 23:01 Temperature Pulse Rate 89 83 83 Respiratory Rate 15 Blood Pressure 148/93 H 149/70 H Pulse Oximetry 100 100 100 04/20/18 23:51 04/21/18 00:00 04/21/18 00:01 Temperature 99.2 F Pulse Rate 94 H 95 H 96 H Respiratory Rate 16 20 Blood Pressure 150/69 H Pulse Oximetry 96 96 04/21/18 00:44 04/21/18 01:00 04/21/18 01:01 Temperature Pulse Rate 79 78 Respiratory Rate 15 15 Blood Pressure 153/71 H Pulse Oximetry 98 100 100 04/21/18 02:00 04/21/18 02:01 04/21/18 03:00 Temperature Pulse Rate 83 81 79 Respiratory Rate 15 15 Blood Pressure 148/68 H Pulse Oximetry 99 99 100 04/21/18 03:01 04/21/18 04:00 04/21/18 04:01 Temperature 99.1 F Pulse Rate 78 72 71 Respiratory Rate 15 Blood Pressure 152/77 H 154/79 H Pulse Oximetry 100 100 100 04/21/18 04:19 04/21/18 05:00 04/21/18 05:01 Temperature Pulse Rate 84 82 Respiratory Rate 16 Blood Pressure 156/73 H Pulse Oximetry 100 98 98 04/21/18 06:00 04/21/18 06:01 04/21/18 08:42 Temperature Pulse Rate 81 77 86 Respiratory Rate 17 Blood Pressure 138/77 Pulse Oximetry 99 99 04/21/18 08:45 Temperature Pulse Rate Respiratory Rate 16 Blood Pressure Pulse Oximetry 100 Intake & Output 04/20/18 04/21/18 04/21/18 18:59 06:59 18:59 Intake Total 1265 / 1265 1317 / 1317 Output Total 1974 1650 / 1650 Balance -710 / -710 -333 / -333 Weight 85.3 kg Intake: Tube Feeding 425 / 425 137 / 137 Tube Irrigant 180 / 180 Water Bolus Amount 400 / 400 400 / 400 Free Water Amount 200 / 200 600 / 600 Other 240 / 240 Output: Stool 450 / 450 Urine Amount (Catheter) 1525 / 1525 1650 / 1650 3-way Urethral 1525 / 1525 1650 / 1650 Other: Bladder Irrigation Fluid - Amount Instilled 3-way Urethral 6,000 5,100 Bladder Irrigation Fluid - Amount Drained 3-way Urethral 6,000 3,450 Date of Last Bowel Movement 04/20/18 04/20/18 # Incontinent Bowel Movements 1 Result Diagrams: 04/21/18 03:39 04/21/18 03:39 Objective Remarks: GENERAL: 67-year-old male currently trached. Awake alert SKIN: Warm and dry. HEAD: Atraumatic. Normocephalic. EYES: Pupils equal and round. No scleral icterus. No injection or drainage. ENT: No nasal bleeding or discharge. Mucous membranes pink and moist. Dobbhoff tube in place NECK: Trachea midline. No JVD. Trach site without significant oozing CARDIOVASCULAR: RRR sinus. Normal S1-S2 RESPIRATORY: Lungs generally clear. Tolerating longer stretches of spontaneous breathing trials but requiring elevated pressure support. GASTROINTESTINAL: Abdomen slightly protuberant/non-tender, soft, bowel sounds active MUSCULOSKELETAL: Extremities without clubbing, cyanosis, trace to 1+ edema. No obvious deformities. NEUROLOGICAL: Follows commands and moves extremities to command. No focal deficits. Strength appears near normal today Assessment and Plan - Assessment and Plan Plan: Neuro/Psych: History of anterior C5/6 microdiscectomy with fusion Not requiring any continuous sedation at this time Goal of RASS 0 Evaluated by neurosurgery/Dr. Viera. No intervention planned at this time CT brain/MRI C-spine negative EEG revealed no epileptic activity Neurology following. Recommend myasthenia gravis lab. Negative to date. No evidence of GBS Left diaphragm remains elevated, suspect not functioning well. Requested second opinion for neurological status See neurology note. Overall strength clinically improving Need aggressive potassium and phosphorus replacement Wound remains well healed and clean CV: Systolic heart failure unknown if acute or chronic Essential hypertension Hyperlipidemia Ejection fraction 45% on admission. Appreciate cardiac evaluation by Dr. Escobedo. No plans at this time Holding amlodipine 10 mg daily, and metoprolol tartrate 12.5 mg twice daily for hypertension Holding clonidine 0.1 twice daily and lisinopril 5 mg daily in light of hypotension/lisinopril for acute kidney injury Continue pravastatin 40 mg daily for dyslipidemia. Continue aspirin 81 mg by mouth daily. Still holding antihypertensives. Holding aspirin while bladder bleeding continues Fluid balance about right now. Resp: Acute hypercapnic respiratory failure- now chronic Klebsiella oxytoca pneumonia PRVC ventilation. Ventilator bundle. Head of bed at 30 degrees Albuterol/ipratropium aerosols every 4 hours with albuterol aerosols every 2 hours as needed dyspnea Will need sniff test to assess diaphragmatic function once off vent We will consult ENT to assess vocal cords when appropriate Appreciate pulmonary input. Spontaneous breathing trial daily. 02/08 discontinued theophylline 400 mg daily acute delirium. Noted level. 04/09 3.7 Status post bronchoscopy 04/11. Thick white purulent secretions left lower lobe suction to clear. General surgery s/p percutaneous tracheostomy 04/14: Dr. Conde daily weaning of CPAP/pressure support. May need to progress to a fenestrated trach tube to adequately assess vocal cords We will start with sniff test this morning. GI: Gastroesophageal reflux disease Transaminitis Hypoalbuminemia Ileus new RUQ pain Tube feeding at 60 cc an hour days. At home on pantoprazole 40 mg daily. Currently on lansoprazole 30 mg daily holding bowel regimen for diarrhea add fiber to diet. RUQ ultrasound -benign Follow liver function tests, lipase No evidence of liver injury. : Irrigation Wood in place because of acute bladder bleeding with clots Endo: Hypothyroidism Hypokalemia Hypophosphatemia TSH 1.28. Continue levothyroxine 125 mg by mouth daily Sliding scale insulin if indicated to maintain euglycemia Aggressive electrolyte replacement Continue scheduled Renal: Kidney injury - acute, resolved. Avoid all nephrotoxic medications Creatinine currently 1.1 Neurology consultation for evaluation this is contrast-induced nephropathy from scans 03/31. Avoid nephrotoxic medication. Lisinopril discontinued. Accurate I's and O's Heme: Normocytic anemia Leukocytosis Monitor CBC daily. Follow trends per No indication for transfusion of blood proximal to this time. ID: Klebsiella oxytoca pneumonia sputum 04/01 Completed with ceftriaxone per infectious disease. Started on piperacillin/tazobactam 04/11 due to aspiration, anticipated stop date 04/19 Lumbar puncture negative. HSV negative No growth to date on other cultures aside from sputum Lung ceron remain clear No evidence of ongoing infection. FEN: Hypernatremia-resolved Hypopotassemia Hypokalemia Free water 200 cc every 6 hours. Replace electrolytes as clinically indicated per ICU electrolyte protocol. Recheck electrolytes in a.m. Increase scheduled potassium replacement 50 MEQ twice daily MSK: PT evaluate and treat up to chair daily OT evaluate and treat Access -Utilize peripheral IV. Prophylaxis -GI -lansoprazole -DVT -SCD/enoxaparin Overall impression: Remains weak and de condition. We need to continue to work on nutrition and gentle weaning. OOB and working with PT daily. Will review vocal cords and diaphragmatic function today.
--- NOTE | 2018-04-21 09:56 | P.PNURO ---
Subjective Patient symptoms today: Pt seen and examined. Urine bloody with clots. Irrigated at bedside and urine cleared. He is not actively bleeding. Hgb dropped from 8.1 to 7.8 today. Objective Vital Signs: Vital Signs 04/20/18 10:00 04/20/18 10:01 04/20/18 11:00 Temperature Pulse Rate 92 H 91 H 93 H Respiratory Rate Blood Pressure 160/77 H Pulse Oximetry 98 98 99 04/20/18 11:01 04/20/18 11:48 04/20/18 11:49 Temperature Pulse Rate 94 H 91 H Respiratory Rate 18 Blood Pressure 166/85 H Pulse Oximetry 99 99 04/20/18 12:00 04/20/18 12:01 04/20/18 12:04 Temperature 99.2 F Pulse Rate 95 H 96 H 93 H Respiratory Rate Blood Pressure 190/91 H 171/76 H Pulse Oximetry 96 96 95 04/20/18 13:00 04/20/18 13:01 04/20/18 14:00 Temperature Pulse Rate 99 H 97 H 93 H Respiratory Rate Blood Pressure 169/100 H Pulse Oximetry 93 L 94 L 98 04/20/18 14:01 04/20/18 15:00 04/20/18 15:01 Temperature Pulse Rate 97 H 86 94 H Respiratory Rate Blood Pressure 169/83 H 157/78 H Pulse Oximetry 97 100 100 04/20/18 15:51 04/20/18 16:00 04/20/18 16:01 Temperature 99.1 F Pulse Rate 84 82 Respiratory Rate Blood Pressure 157/76 H Pulse Oximetry 97 96 95 04/20/18 17:00 04/20/18 17:01 04/20/18 18:00 Temperature Pulse Rate 84 87 88 Respiratory Rate Blood Pressure 155/74 H Pulse Oximetry 99 100 99 04/20/18 18:01 04/20/18 19:00 04/20/18 19:01 Temperature Pulse Rate 87 83 82 Respiratory Rate Blood Pressure 156/80 H 142/73 H Pulse Oximetry 99 100 100 04/20/18 20:00 04/20/18 20:01 04/20/18 20:20 Temperature 98.7 F Pulse Rate 88 84 85 Respiratory Rate 15 15 Blood Pressure 169/81 H Pulse Oximetry 98 98 99 04/20/18 21:00 04/20/18 21:01 04/20/18 22:00 Temperature Pulse Rate 92 H 92 H 89 Respiratory Rate 15 15 Blood Pressure 159/84 H Pulse Oximetry 98 98 98 04/20/18 22:01 04/20/18 23:00 04/20/18 23:01 Temperature Pulse Rate 89 83 83 Respiratory Rate 15 Blood Pressure 148/93 H 149/70 H Pulse Oximetry 100 100 100 04/20/18 23:51 04/21/18 00:00 04/21/18 00:01 Temperature 99.2 F Pulse Rate 94 H 95 H 96 H Respiratory Rate 16 20 Blood Pressure 150/69 H Pulse Oximetry 96 96 04/21/18 00:44 04/21/18 01:00 04/21/18 01:01 Temperature Pulse Rate 79 78 Respiratory Rate 15 15 Blood Pressure 153/71 H Pulse Oximetry 98 100 100 04/21/18 02:00 04/21/18 02:01 04/21/18 03:00 Temperature Pulse Rate 83 81 79 Respiratory Rate 15 15 Blood Pressure 148/68 H Pulse Oximetry 99 99 100 04/21/18 03:01 04/21/18 04:00 04/21/18 04:01 Temperature 99.1 F Pulse Rate 78 72 71 Respiratory Rate 15 Blood Pressure 152/77 H 154/79 H Pulse Oximetry 100 100 100 04/21/18 04:19 04/21/18 05:00 04/21/18 05:01 Temperature Pulse Rate 84 82 Respiratory Rate 16 Blood Pressure 156/73 H Pulse Oximetry 100 98 98 04/21/18 06:00 04/21/18 06:01 04/21/18 07:00 Temperature Pulse Rate 81 77 85 Respiratory Rate Blood Pressure 138/77 Pulse Oximetry 99 99 98 04/21/18 07:01 04/21/18 08:00 04/21/18 08:01 Temperature 98.4 F Pulse Rate 84 94 H 101 H Respiratory Rate Blood Pressure 144/78 H 207/91 H Pulse Oximetry 98 99 98 04/21/18 08:04 04/21/18 08:42 04/21/18 08:45 Temperature Pulse Rate 94 H 86 Respiratory Rate 17 16 Blood Pressure 173/70 H Pulse Oximetry 99 100 04/21/18 09:00 04/21/18 09:01 Temperature Pulse Rate 82 79 Respiratory Rate Blood Pressure 156/81 H Pulse Oximetry 99 99 Intake & Output 04/20/18 04/21/18 04/21/18 18:59 06:59 18:59 Intake Total 1265 / 1265 1317 / 1317 Output Total 1974 1650 / 1650 Balance -710 / -710 -333 / -333 Weight 85.3 kg Intake: Tube Feeding 425 / 425 137 / 137 Tube Irrigant 180 / 180 Water Bolus Amount 400 / 400 400 / 400 Free Water Amount 200 / 200 600 / 600 Other 240 / 240 Output: Stool 450 / 450 Urine Amount (Catheter) 1525 / 1525 1650 / 1650 3-way Urethral 1525 / 1525 1650 / 1650 Other: Bladder Irrigation Fluid - Amount Instilled 3-way Urethral 6,000 5,100 Bladder Irrigation Fluid - Amount Drained 3-way Urethral 6,000 3,450 Date of Last Bowel Movement 04/20/18 04/20/18 04/20/18 # Incontinent Bowel Movements 1 Result Diagrams: 04/21/18 03:39 04/21/18 03:39 Imaging: Impressions Chest X-Ray 04/21/18 00:00 CONCLUSION: 1. No significant interval change. 2. Stable tracheostomy and nasoenteric feeding catheter. 3. Stable left basilar airspace disease. Medications and IVs: Active Medications Generic Name Dose Route Start Last Admin Trade Name Freq PRN Reason Stop Dose Admin Acetaminophen 650 mg 04/10/18 08:00 04/16/18 21:02 Tylenol PO 650 mg Q6H PRN Administration Temp > 100.4 Albuterol 1 ampul 04/05/18 12:00 04/21/18 08:41 Duoneb Neb (Je) NEB 1 ampul Q4HR NEB JE Administration Albuterol 2.5 mg 04/05/18 09:00 Albuterol Neb (Prn) NEB Q2HR NEB PRN [id number] Artificial Tears 1 drop 04/05/18 09:00 04/21/18 03:44 Tears Naturale Opth Drops EACH EYE 1 drop Q8H JE Administration Aspirin 81 mg 04/10/18 09:00 04/19/18 08:01 Aspirin Chew PO 81 mg DAILY JE Administration Belladonna Alkaloids/Opium 60 mg 04/20/18 11:10 B & O Supp RECTAL Q6HR PRN bladder spasms Chlorhexidine Gluconate 15 ml 03/31/18 20:00 04/20/18 21:03 Peridex 0.12% Oral Kit OROPHARYNG 15 ml BID@0800,2000 JE Administration Enoxaparin Sodium 40 mg 04/06/18 12:00 04/19/18 08:01 Lovenox Inj SQ 40 mg DAILY JE Administration Hydralazine HCl 50 mg 04/16/18 19:15 04/21/18 06:35 Apresoline PO 50 mg Q8HR JE Administration Magnesium Sulfate 4 gm/ Sodium 100 mls @ 50 mls/hr 04/12/18 06:15 Chloride IV.SIG UNSCH PRN For Magnesium 0.9 - 1.1 mg/dL Potassium Chloride 40 meq in 100 mls @ 25 mls/hr 04/12/18 06:15 04/15/18 06: 37 Kcl 40 Meq Premix Inj IV.SIG Infused Q2H PRN Infusion For Potassium 2.8 - 3.2 mEq/L Potassium Chloride 20 meq in 100 mls @ 50 mls/hr 04/12/18 06:15 Kcl 20 Meq Premix Inj IV.SIG Q2H PRN For Potassium 3.3 - 3.5 mEq/L Potassium Chloride 40 meq in 100 mls @ 25 mls/hr 04/12/18 06:15 04/12/18 10: 35 Kcl 40 Meq Premix Inj IV.SIG Infused UNSCH PRN Infusion For Potassium 3.3 - 3.5 mEq/L Potassium Chloride 20 meq in 100 mls @ 50 mls/hr 04/12/18 06:15 04/20/18 06: 05 Kcl 20 Meq Premix Inj IV.SIG 50 mls/hr Q2H PRN Administration For Potassium 2.8 - 3.2 mEq/L Potassium Phosphate 30 mmol/ 260 mls @ 42 mls/hr 04/12/18 06:15 04/19/18 15: 35 Sodium Chloride IV.SIG Infused UNSCH PRN Infusion SEE LABEL COMMENTS Magnesium Sulfate 2 gm/ Sodium 100 mls @ 50 mls/hr 04/12/18 06:15 Chloride IV.SIG UNSCH PRN For Magnesium 1.2 - 1.6 mg/dL Sodium Phosphate 30 mmol/ 260 mls @ 42 mls/hr 04/12/18 06:15 Sodium Chloride IV.SIG UNSCH PRN For Phosphorus < 2.5 mg/dL Labetalol HCl 20 mg 04/09/18 17:00 04/18/18 11:50 Trandate Inj IV.PUSH 20 mg Q1H PRN Administration SBP > 160 Lansoprazole 30 mg 04/10/18 09:00 04/20/18 09:47 Prevacid Solutab NG/OG 30 mg DAILY JE Administration Levothyroxine Sodium 125 mcg 04/01/18 06:00 04/21/18 06:35 Synthroid PO 125 mcg DAILY@0600 JE Administration Magnesium Oxide 800 mg 04/12/18 06:15 Mag-Ox PO UNSCH PRN For Magnesium 1.2 - 1.6 mg/dL Magnesium Oxide 400 mg 04/19/18 11:00 04/20/18 23:56 Mag-Ox PO 400 mg BID@1100,2300 JE Administration Miscellaneous 1 each 04/19/18 11:31 Pill Splitter OTHER UNSCH PRN SEE LABEL COMMENTS Miscellaneous Medication 1 each 04/01/18 00:00 04/21/18 03:44 OROPHARYNG 1 each 0000,0400,1200,1600 JE Administration Ondansetron HCl 4 mg 04/10/18 08:03 Zofran Inj IV.PUSH Q4H PRN NAUSEA OR VOMITING Oxycodone HCl 5 mg 04/16/18 13:22 04/16/18 13:36 Roxicodone Intensol Liq PO 5 mg Q4H PRN Administration pain 4-6 Oxymetazoline HCl 2 spray 04/19/18 15:32 Afrin 0.05% Nasal [place] NASAL Q12H PRN Bronchoscopy Polyethylene Glycol 17 gm 04/05/18 09:00 04/15/18 21:00 Miralax PO Not Given BID JE Potassium Chloride 40 meq 04/12/18 06:15 04/17/18 17:38 Kcl Liq PO 40 meq UNSCH PRN Administration Potassium level 3.3-3.5 mEq/L Potassium Chloride 40 meq 04/12/18 06:15 04/16/18 14:59 Kcl Liq PO 40 meq UNSCH PRN Administration Potassium level 3.3-3.5 mEq/L Potassium Chloride 50 meq 04/19/18 10:30 04/20/18 21:04 Kcl Liq PO 50 meq BID JE Administration Potassium Phosphate 2,000 mg 04/12/18 06:15 04/17/18 10:48 K-Phos Original PO 2,000 mg Q4H PRN Administration Phosphorus Less Than 2.5 mg/dL Potassium Phosphate 2,000 mg 04/12/18 06:15 K-Phos Original PO UNSCH PRN SEE LABEL COMMENTS Pravastatin Sodium 40 mg 03/31/18 21:00 04/20/18 21:03 Pravachol PO 40 mg HS JE Administration Psyllium Hydrophilic Mucilloid 1 pack 04/18/18 09:00 04/20/18 09:30 Metamucil Fiber Sf Pkt NG/OG Not Given DAILY JE Pyridostigmine [place] 60 mg 04/20/18 08:00 04/21/18 03:44 Mestinon PO 60 mg Q4HR JE Administration Sodium Chloride 2 ml 03/31/18 21:00 04/20/18 21:04 Ns Flush IV.FLUSH 2 ml BID JE Administration Sodium Chloride 2 ml 03/31/18 17:02 Ns Flush IV.FLUSH PRN PRN FLUSH AFTER USING IV ACCESS Sodium Chloride 0 ml 04/11/18 09:00 04/20/18 09:31 Ns Flush IV.FLUSH Not Given DAILY JE Sterile Water 200 ml 04/19/18 12:00 04/21/18 06:36 Free Water NG/OG 200 ml Q6HR JE Administration Objective Remarks: Abd:soft,nd, slight SP tenderness Lehman with some hematuria on slow CBI-clearing 04/23 Abd:soft,nt,nd Lehman: few clots irrigated. Urine clearing on CBI. Assessment and Plan - Plan 67 y.o male with onset of gross hematuria Continue lehman drainage and CBI B&O suppository for bladder spasms. 04/21 67 y.o male with gross hematuria of unclear etiology. Possibly secondary to trauma and anitcoagulation therapy. CT scan was unremarable to any bleeding lesion. Maintain CBI and irrigate lehman manually at bedside Consider transfusion for Hgb of 7.8. If bleeding does persists will need cystoscopy.
[2018-04-21 10:16] LABS: Immunoglobulin A 154 mg/dL (98-543); Immunoglobulin G 661 mg/dL (670-1650)
[2018-04-21 10:47] LABS: Immunoglobulin M 23 mg/dL (39-238)
--- NOTE | 2018-04-21 11:38 | FL ---
EXAM DATE: 04/21/2018 11:21 AM EST AGE/SEX: 67 years / Male INDICATIONS: Evaluate diaphragm CLINICAL DATA: This is the patient's subsequent encounter. Patient reports that signs and symptoms h ave been present for 3 weeks and indicates a pain score of 0/10. MEDICAL/SURGICAL HISTORY: . Thyroid disease Inguinal hernia repair. Microdiscectomy COMPARISON: [facility] [place] CERVICAL SPINE W & W/O CON, 03/31/2018. . RADIATION DOSE: 10.58 DAP FINDINGS: Careful fluoroscopic visualization reveals no diaphragmatic motion on either side. Any attempt at angelika tilation is only high intercostal and trapezius muscles with only shrugging of the shoulders. CONCLUSION: No diaphragmatic motion on either side. Respiratory pattern suspicious for high neurological deficit above C5. Repeat MRI of the brain, cervical and without and with contrast while ventilated to exclude motion artifact would be very helpful. Electronically signed by: Jacky Damon MD Board Certified Radiologist 04/21/2018 11:36 AM EST
[2018-04-21] MEDS: Labetalol HCl Inj 20 MG/4 ML Vial IV.PUSH PRN (13:14)
[2018-04-21] MEDS: Psyllium Husk SF 3.4 GM in 5.8 GM Packet NG/OG SCH (13:16)
[2018-04-21] MEDS: Magnesium Oxide 400 MG Tablet PO SCH (13:16)
[2018-04-21] MEDS: Chlorhexidine 0.12% Oral Kit 15 ML UDC OROPHARYNG SCH ×2 (13:16→20:45)
[2018-04-21] MEDS: Potassium Chloride Liq 20 MEQ/15 ML UDC PO SCH ×2 (17:18→20:45)
--- NOTE | 2018-04-21 18:55 | P.PN ---
Subjective Interval history: Alert and on vent support with AC rate of 12. Went for sniff testing for diaphragmatic function. Found to have bilateral diaphragmatic muscle weakness. Tolerated CPAP well. Still has some bleeding from [place]. Physical Exam Vital signs: Vital Signs 04/20/18 19:00 04/20/18 19:01 04/20/18 20:00 Temperature 98.7 F Pulse Rate 83 82 88 Respiratory Rate 15 Blood Pressure 142/73 H Pulse Oximetry 100 100 98 04/20/18 20:01 04/20/18 20:20 04/20/18 21:00 Temperature Pulse Rate 84 85 92 H Respiratory Rate 15 15 Blood Pressure 169/81 H Pulse Oximetry 98 99 98 04/20/18 21:01 04/20/18 22:00 04/20/18 22:01 Temperature Pulse Rate 92 H 89 89 Respiratory Rate 15 Blood Pressure 159/84 H 148/93 H Pulse Oximetry 98 98 100 04/20/18 23:00 04/20/18 23:01 04/20/18 23:51 Temperature Pulse Rate 83 83 94 H Respiratory Rate 15 16 Blood Pressure 149/70 H Pulse Oximetry 100 100 04/21/18 00:00 04/21/18 00:01 04/21/18 00:44 Temperature 99.2 F Pulse Rate 95 H 96 H Respiratory Rate 20 15 Blood Pressure 150/69 H Pulse Oximetry 96 96 98 04/21/18 01:00 04/21/18 01:01 04/21/18 02:00 Temperature Pulse Rate 79 78 83 Respiratory Rate 15 15 Blood Pressure 153/71 H Pulse Oximetry 100 100 99 04/21/18 02:01 04/21/18 03:00 04/21/18 03:01 Temperature Pulse Rate 81 79 78 Respiratory Rate 15 Blood Pressure 148/68 H 152/77 H Pulse Oximetry 99 100 100 04/21/18 04:00 04/21/18 04:01 04/21/18 04:19 Temperature 99.1 F Pulse Rate 72 71 Respiratory Rate 15 16 Blood Pressure 154/79 H Pulse Oximetry 100 100 100 04/21/18 05:00 04/21/18 05:01 04/21/18 06:00 Temperature Pulse Rate 84 82 81 Respiratory Rate Blood Pressure 156/73 H Pulse Oximetry 98 98 99 04/21/18 06:01 04/21/18 07:00 04/21/18 07:01 Temperature Pulse Rate 77 85 84 Respiratory Rate Blood Pressure 138/77 144/78 H Pulse Oximetry 99 98 98 04/21/18 08:00 04/21/18 08:01 04/21/18 08:04 Temperature 98.4 F Pulse Rate 94 H 101 H 94 H Respiratory Rate Blood Pressure 207/91 H 173/70 H Pulse Oximetry 99 98 99 04/21/18 08:42 04/21/18 08:45 04/21/18 09:00 Temperature Pulse Rate 86 82 Respiratory Rate 17 16 Blood Pressure Pulse Oximetry 100 99 04/21/18 09:01 04/21/18 10:00 04/21/18 10:01 Temperature Pulse Rate 79 90 Respiratory Rate Blood Pressure 156/81 H 181/86 H Pulse Oximetry 99 99 04/21/18 11:00 04/21/18 11:42 04/21/18 11:58 Temperature Pulse Rate 97 H 103 H 105 H Respiratory Rate 20 Blood Pressure 225/106 H 205/90 H Pulse Oximetry 100 99 98 04/21/18 12:00 04/21/18 12:01 04/21/18 12:05 Temperature Pulse Rate 103 H 105 H 103 H Respiratory Rate Blood Pressure 200/102 H 199/99 H Pulse Oximetry 98 98 98 04/21/18 12:07 04/21/18 12:10 04/21/18 12:12 Temperature Pulse Rate 103 H 102 H Respiratory Rate 18 19 Blood Pressure 195/99 H Pulse Oximetry 98 97 04/21/18 12:28 04/21/18 13:00 04/21/18 13:01 Temperature Pulse Rate 99 H 97 H 97 H Respiratory Rate Blood Pressure 189/95 H 194/94 H 188/93 H Pulse Oximetry 98 99 99 04/21/18 13:20 04/21/18 13:27 04/21/18 13:43 Temperature Pulse Rate 78 75 78 Respiratory Rate Blood Pressure 181/87 H 183/92 H Pulse Oximetry 99 100 99 04/21/18 13:53 04/21/18 13:54 04/21/18 13:57 Temperature Pulse Rate 83 83 Respiratory Rate Blood Pressure 205/112 H 200/105 H 190/114 H Pulse Oximetry 97 97 04/21/18 14:00 04/21/18 14:01 04/21/18 14:43 Temperature Pulse Rate 85 86 83 Respiratory Rate Blood Pressure 185/102 H 175/107 H Pulse Oximetry 97 97 97 04/21/18 15:00 04/21/18 15:01 04/21/18 15:48 Temperature Pulse Rate 82 80 Respiratory Rate 15 Blood Pressure 158/87 H Pulse Oximetry 100 100 100 04/21/18 15:49 04/21/18 16:00 04/21/18 16:01 Temperature 98.1 F Pulse Rate 79 81 89 Respiratory Rate 15 Blood Pressure 141/92 H Pulse Oximetry 100 100 04/21/18 17:00 04/21/18 17:01 Temperature Pulse Rate 92 H 94 H Respiratory Rate Blood Pressure 164/87 H Pulse Oximetry 99 99 Intake & Output 04/20/18 04/21/18 04/21/18 18:59 06:59 18:59 Intake Total 1265 / 1265 1317 / 1317 400 / 400 Output Total 1974 1650 / 1650 Balance -710 / -710 -333 / -333 400 / 400 Weight 85.3 kg Intake: Tube Feeding 425 / 425 137 / 137 Tube Irrigant 180 / 180 Water Bolus Amount 400 / 400 400 / 400 Free Water Amount 200 / 200 600 / 600 400 / 400 Other 240 / 240 Output: Stool 450 / 450 Urine Amount (Catheter) 1525 / 1525 1650 / 1650 3-way Urethral 1525 / 1525 1650 / 1650 Other: Bladder Irrigation Fluid - Amount Instilled 3-way Urethral 6,000 5,100 Bladder Irrigation Fluid - Amount Drained 3-way Urethral 6,000 3,450 Date of Last Bowel Movement 04/20/18 04/20/18 04/21/18 # Incontinent Bowel Movements 1 Narrative: GENERAL: Elderly white male on vent support with tracheostomy in place SKIN: Warm and dry. HEAD: Atraumatic. Normocephalic. EYES: Pupils equal and round. No scleral icterus. No injection or drainage. ENT: No nasal bleeding or discharge. Mucous membranes pink and moist. NECK: Trachea midline. No JVD. CARDIOVASCULAR: Regular rate and rhythm. RESPIRATORY: No accessory muscle use. Occasional wheezes anteriorly. Breath sounds equal bilaterally. GASTROINTESTINAL: Abdomen soft, non-tender, nondistended. Hepatic and splenic margins not palpable. MUSCULOSKELETAL: Extremities without clubbing, cyanosis, or edema. No obvious deformities. NEUROLOGICAL: Moves his extremities with 1+ reflexes PSYCHIATRIC: Appropriate mood and affect. - Urinary Catheter Management Indwelling Urethral Catheter Cath placed during this visit: yes, but has since been removed by the nurse Reason for continuing: Continue criteria not met Insertion date: 04/10/18 Insertion time: 01:45 Removal date: 04/15/18 Removal time: 17:05 Condom Cath placed during this visit: no 3-way Urethral Cath placed during this visit: no Results - Labs CBC & Chem 7: 04/21/18 03:39 04/21/18 03:39 Laboratory Results - last 24 hr 04/21/18 04/21/18 04/21/18 03:39 03:39 09:40 WBC 13.1 H RBC 2.52 L Hgb 7.8 L Hct 23.1 L MCV 91.5 MCH 30.9 MCHC 33.7 RDW 15.1 Plt Count 282 MPV 9.4 Sodium 142 Potassium 3.7 Chloride 109 H Carbon Dioxide 27.7 Anion Gap 5 BUN 12 Creatinine 0.54 L Estimated GFR Greater than 89 Random Glucose 91 Calcium 7.6 L Phosphorus 1.7 L Magnesium 2.4 IgG 661 L IgA 154 IgM 23 L Microbiology 04/19/18 18:45 Catheterized Urine Urine Culture - Final No growth in 48 hours - Imaging Impressions Chest Fluoroscopy 04/21/18 00:00 CONCLUSION: No diaphragmatic motion on either side. Respiratory pattern suspicious for high neurological deficit above C5. Repeat MRI of the brain, cervical and without and with contrast while ventilated to exclude motion artifact would be very helpful. Chest X-Ray 04/21/18 00:00 CONCLUSION: 1. No significant interval change. 2. Stable tracheostomy and nasoenteric feeding catheter. 3. Stable left basilar airspace disease. Assessment and Plan - Assessment (1) Respiratory failure Code(s): J96.90 - Respiratory failure, unspecified, unspecified whether with hypoxia or hypercapnia Status: Acute (2) Atelectasis Code(s): J98.11 - Atelectasis Status: Acute (3) Neck pain, chronic Code(s): M54.2 - Cervicalgia; G89.29 - Other chronic pain Status: Chronic (4) Other cervical disc degeneration at C5-C6 level Code(s): M50.322 - Other cervical disc degeneration at C5-C6 level Status: Chronic (5) Protrusion of cervical intervertebral disc Code(s): M50.20 - Other cervical disc displacement, unspecified cervical region Status: Chronic (6) Adult failure to thrive Code(s): R62.7 - Adult failure to thrive Status: Acute (7) Shortness of breath Code(s): R06.02 - Shortness of breath Status: Acute (8) Weakness generalized Code(s): R53.1 - Weakness Status: Acute (9) Acute hyponatremia Code(s): E87.1 - Hypo-osmolality and hyponatremia Status: Acute (10) Ventilator dependent Code(s): Z99.11 - Dependence on respirator [ventilator] status Status: Acute - Plan 1 CPAP during the day 09/22 with FiO2 of 35% up to 12 -hours 2 wean FiO2 to keep sats greater than 92 3. CBC BMP in a.m. 4. DuoNeb nebs every 6 hours as needed 5. No sedation 6. Tracheal lavage and suction as needed 7. Continue Lovenox 40 mg subcu daily 8. Respiratory parameters in a.m. 9. CBC BMP in a.m. 10. Place on AC rate of 12 at night 11. PT evaluation 12. Up in chair as tolerated
[2018-04-21] MEDS: Sertraline 100 MG Tablet PO SCH (20:47)
[2018-04-22] MEDS: Magnesium Oxide 400 MG Tablet PO SCH ×2 (00:18→11:45)
[2018-04-22] MEDS: Artificial Tears Opth Drops 15 ML Bottle EACH EYE SCH ×3 (00:19→17:34)
[2018-04-22] MEDS: Pyridostigmine Bromide 60 MG Tablet PO SCH ×6 (00:19→21:30)
[2018-04-22] MEDS: Oral Hygiene Kit OROPHARYNG SCH ×3 (03:36→15:56)
[2018-04-22 05:16] LABS: Anion Gap 7 meq/L (5-15); Blood Urea Nitrogen 16 mg/dL (7-18); Calcium 7.9 mg/dL (8.5-10.1); Carbon Dioxide 26.8 meq/L (21.0-32.0); Chloride 109 meq/L (98-107); Glomerular Filtration Rate Greater Than 89 mL/min (>89); Glucose,Random 121 mg/dL (74-106); Potassium 3.5 meq/L (3.5-5.1); Sodium 143 meq/L (136-145)
--- NOTE | 2018-04-22 06:09 | P.PNCC ---
Subjective Subjective Remarks/Hospital Course: This 67-year-old came into the emergency room today with his and daughter. On 02/13/2018, he had a microdiscectomy, C5-C6, by Dr. Schwarz. He was discharged home the next day. A few days after, he had not been feeling well, short of breath, disoriented, generally weak, symptoms were getting worse, disorientation was worse. He was referred to emergency department by his primary care physician for an evaluation. In the ED he was found to be in severe hypercarbic respiratory acidosis and was intubated by ED attending. 04/01: CO2 retention corrected. Remains mildly alkalotic due to chronic CO2 elevation. PH normalized. Still requiring vasopressor therapy with norepinephrine. Broad-spectrum antibiotic coverage started. Lumbar puncture performed with opening pressure 20 and crystal-clear fluid, sent for cell counts , chemistries and culture. HSV included. One extra tube sent for future studies if necessary. Ammonia level 71 - repeat daily. 04/02: CSF appears benign. Repeat ammonia level normal. Gamma GT normal. Cardiac echo estimated of 45% ejection fraction requires a little additional investigation -patient has been chronically short of breath for several weeks now. Leukocytosis and left shift persists. Gram-positive cocci and white cells seen in sputum. This man clearly became acutely and critically ill - exact cause still eludes us. 04/03: Leukocytosis improved. Remains quite rigid when stimulated. Continues to move 4 limbs with purpose and follows commands with 4 limbs. Sputum demonstrates white blood cells and gram-negative rods. 04/04: Improved color and perfusion. Extubated yesterday afternoon but failed after about 45 minutes -developed somnolence then obtundation, appeared to be having difficulty taking a breath, concern for vocal cord dysfunction. On reintubation the cord edges were irregular but otherwise normal in appearance. I could not assess cord function as patient was not alert enough to cooperate with commands. We will definitely pursue possibilities of vocal cord dysfunction and or phrenic nerve paralysis once we get him extubated. Ideally, a sniff test under fluoroscopy would demonstrate any paradoxical diaphragm motion. 04/05: Afebrile. Neurologically appears intact. Daughter concerned about "appears distant" however on 40 mcg/kg/min of propofol and 250 mcg an hour fentanyl. No bowel movement since admission. Tube feeding only at 20 cc an hour. 04/06: Afebrile. Neurologically intact. Following commands.. Positive BM. Labile blood pressures yesterday. Replace potassium currently. 04/07: Patient writing notes today. Chest x-ray clear. Elevated left diaphragm , probably dysfunctional. Continued encephalopathy and generalized weakness chris very concerning. We will try Aminophyllin today to see if we can get some diaphragm and central nervous system stimulation. 04/08: Started on theophylline yesterday. Check level in a.m. Will attempt PSV trial today. Noted pulmonology requests possible T-bar with ABG when appropriate. Afebrile. 04/09: T-max 100. theophylline currently 3.7. Currently on CPAP trials. 02/18. 45%. Check ABG at 10 today. Desaturated yesterday currently back at 40%. 04/10: Resting in bed. Episode of nausea overnight. Negative workup. Evaluated positive BM 04/08. Patient more agitated overnight. Propofol discontinued due to hypotension. Currently on fentanyl drip. Theophylline. Creatinine currently 2.0 we will consult nephrology. Discontinue lisinopril. Receiving one half normal saline bolus currently. 04/11: T-max 101.1. Increasing O2 records.Increasing white blood cell count. For the cuff is overinflated to palpate the vocal cords. Leak by examination. Will change ET tube in place central line today. Empirically start antibiotics for aspiration. Not tolerating tube feeds and currently to low inner wall suction. Check KUB after ET tube exchange and central line placement. Restart metoclopramide. Positive BMs. 04/12: Yesterday, CT thorax revealed collapsed left lower lung. Status post bronchoscopy with reinflation of lung. Better saturations today. Continues with small and large bowel colonic distention. Right: 11 cm. GI is following. Might need decompression. Current orogastric tube to low intermittent wall suction. 04/13: Improved small and large bowel colonic distention. Down to 8 cm long family discussion. We will perform percutaneous tracheostomy and PEG tube as well. Request second neurological opinion. In better spirits today. 04/14: no changes. awakens and follows commands. plan for trach today. 22: s/p trach yesterday. awake and alert. calm. looks more comfortable than yesterday. did not tolerate PRVC today, but tolerates PSV with high support (24/ 5/35%). SUBJECTIVE: 2/3: complaining of new RUQ pain. ?+Fry's sign. labs wnl today. no other complaints. denies nausea or vomiting. still has diarrhea, but this is slowing down after holding bowel regimen. ROS otherwise negative. 04/17: Gallbladder ultrasound appears benign. No new complaints. 04/18: Remains on the vent. Tolerated approximately 7 hours of CPAP yesterday with high PS. Still complaining of diarrhea. Most likely induced by tube feeds. Potassium remains low at 2.7. Potassium replacement in addition to protocol given followed by KCl 20 meq twice daily scheduled. Probably GI loss 04/19: Clinically improving tolerating CPAP better today. Pressure support reduced to 12. Near normal strength normal reflexes normal sensation. Continue aggressive potassium and phosphorus replacement. 04/20: Irrigation Wood placed and bladder for removal of large blood clots. Will delay bedside sniff test until urinary problems clear up. Anticipate indirect laryngoscopy to nasal approach soon. 04/21: Bleeding from Wood catheter markedly reduced, just pink fluid now. Awake and alert this morning. We will attempt sniff test this morning under fluoroscopy. Update: Sniff test performed under fluoroscopy by Dr. Ritesh Damon shows no diaphragmatic function on either left or right side. The patient participated well with the testing clearly used his intercostal and shoulder muscles vigorously. This pattern is clearly more consistent with a neurological illness and pretty much eliminates the likelihood of traumatic etiology. 04/22: Dr. Ritesh Damon finds and recommends: No diaphragmatic motion on either side. Respiratory pattern suspicious for high neurological deficit above C5. Repeat MRI of the brain, cervical and without and with contrast while ventilated to exclude motion artifact would be very helpful. 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 Objective Vital Signs / I&O: Vital Signs 04/21/18 07:00 04/21/18 07:01 04/21/18 08:00 Temperature 98.4 F Pulse Rate 85 84 94 H Respiratory Rate Blood Pressure 144/78 H Pulse Oximetry 98 98 99 04/21/18 08:01 04/21/18 08:04 04/21/18 08:42 Temperature Pulse Rate 101 H 94 H 86 Respiratory Rate 17 Blood Pressure 207/91 H 173/70 H Pulse Oximetry 98 99 04/21/18 08:45 04/21/18 09:00 04/21/18 09:01 Temperature Pulse Rate 82 79 Respiratory Rate 16 Blood Pressure 156/81 H Pulse Oximetry 100 99 99 04/21/18 10:00 04/21/18 10:01 04/21/18 11:00 Temperature Pulse Rate 90 97 H Respiratory Rate 20 Blood Pressure 181/86 H Pulse Oximetry 99 100 04/21/18 11:42 04/21/18 11:58 04/21/18 12:00 Temperature Pulse Rate 103 H 105 H 103 H Respiratory Rate Blood Pressure 225/106 H 205/90 H Pulse Oximetry 99 98 98 04/21/18 12:01 04/21/18 12:05 04/21/18 12:07 Temperature Pulse Rate 105 H 103 H Respiratory Rate 18 Blood Pressure 200/102 H 199/99 H Pulse Oximetry 98 98 98 04/21/18 12:10 04/21/18 12:12 04/21/18 12:28 Temperature Pulse Rate 103 H 102 H 99 H Respiratory Rate 19 Blood Pressure 195/99 H 189/95 H Pulse Oximetry 97 98 04/21/18 13:00 04/21/18 13:01 04/21/18 13:20 Temperature Pulse Rate 97 H 97 H 78 Respiratory Rate Blood Pressure 194/94 H 188/93 H 181/87 H Pulse Oximetry 99 99 99 04/21/18 13:27 04/21/18 13:43 04/21/18 13:53 Temperature Pulse Rate 75 78 Respiratory Rate Blood Pressure 183/92 H 205/112 H Pulse Oximetry 100 99 04/21/18 13:54 04/21/18 13:57 04/21/18 14:00 Temperature Pulse Rate 83 83 85 Respiratory Rate Blood Pressure 200/105 H 190/114 H Pulse Oximetry 97 97 97 04/21/18 14:01 04/21/18 14:43 04/21/18 15:00 Temperature Pulse Rate 86 83 82 Respiratory Rate Blood Pressure 185/102 H 175/107 H Pulse Oximetry 97 97 100 04/21/18 15:01 04/21/18 15:48 04/21/18 15:49 Temperature Pulse Rate 80 79 Respiratory Rate 15 15 Blood Pressure 158/87 H Pulse Oximetry 100 100 04/21/18 16:00 04/21/18 16:01 04/21/18 17:00 Temperature 98.1 F Pulse Rate 81 89 92 H Respiratory Rate Blood Pressure 141/92 H Pulse Oximetry 100 100 99 04/21/18 17:01 04/21/18 18:00 04/21/18 18:01 Temperature Pulse Rate 94 H 82 80 Respiratory Rate Blood Pressure 164/87 H 134/70 Pulse Oximetry 99 100 100 04/21/18 19:00 04/21/18 19:01 04/21/18 20:00 Temperature Pulse Rate 82 83 92 H Respiratory Rate Blood Pressure 136/73 Pulse Oximetry 98 97 98 04/21/18 20:01 04/21/18 20:35 04/21/18 21:00 Temperature 98.6 F Pulse Rate 92 H 95 H 92 H Respiratory Rate 15 15 Blood Pressure 138/73 156/83 H Pulse Oximetry 98 99 100 04/21/18 21:01 04/21/18 22:01 04/21/18 23:00 Temperature Pulse Rate 92 H 95 H 95 H Respiratory Rate 15 15 Blood Pressure 156/83 H 164/83 H Pulse Oximetry 100 100 99 04/21/18 23:01 04/21/18 23:35 04/22/18 00:00 Temperature 98.1 F Pulse Rate 93 H 84 84 Respiratory Rate 15 Blood Pressure 155/83 H 139/76 Pulse Oximetry 99 100 100 04/22/18 01:00 04/22/18 02:00 04/22/18 03:00 Temperature Pulse Rate 82 96 H 93 H Respiratory Rate 15 15 Blood Pressure 120/72 147/76 H 155/73 H Pulse Oximetry 100 99 100 04/22/18 04:00 04/22/18 04:09 Temperature 98.2 F Pulse Rate 92 H 88 Respiratory Rate 15 15 Blood Pressure 141/74 H Pulse Oximetry 99 100 Intake & Output 04/21/18 04/21/18 04/22/18 06:59 18:59 06:59 Intake Total 1317 / 1317 1040 / 1040 200 / 200 Output Total 1650 / 1650 3300 / 3300 Balance -333 / -333 -2260 / -2260 200 / 200 Weight 85.3 kg Intake: Tube Feeding 137 / 137 Tube Irrigant 180 / 180 Water Bolus Amount 400 / 400 400 / 400 Free Water Amount 600 / 600 400 / 400 200 / 200 Other 240 / 240 Output: Stool 1000 / 1000 Urine Amount (Catheter) 1650 / 1650 2300 / 2300 3-way Urethral 1650 / 1650 2300 / 2300 Gastric Drainage 0 / 0 L nare Dobbhoff 0 / 0 Other: Bladder Irrigation Fluid - Amount Instilled 3-way Urethral 5,100 5,800 Bladder Irrigation Fluid - Amount Drained 3-way Urethral 3,450 3,500 # Incontinent Voids 3 Date of Last Bowel Movement 04/20/18 04/21/18 04/22/18 Result Diagrams: 04/21/18 03:39 04/22/18 03:31 Objective Remarks: GENERAL: 67-year-old male currently trached. Awake alert SKIN: Warm and dry. HEAD: Atraumatic. Normocephalic. EYES: Pupils equal and round. No scleral icterus. No injection or drainage. ENT: No nasal bleeding or discharge. Mucous membranes pink and moist. Dobbhoff tube in place NECK: Trachea midline. No JVD. Trach site without significant oozing CARDIOVASCULAR: RRR sinus. Normal S1-S2 RESPIRATORY: Lungs generally clear. Tolerating longer stretches of spontaneous breathing trials but requiring elevated pressure support. GASTROINTESTINAL: Abdomen slightly protuberant/non-tender, soft, bowel sounds active MUSCULOSKELETAL: Extremities without clubbing, cyanosis, trace to 1+ edema. No obvious deformities. NEUROLOGICAL: Follows commands and moves extremities to command. Limb strength 5 /5. No focal deficits. Assessment and Plan - Assessment and Plan Plan: Neuro/Psych: History of anterior C5/6 microdiscectomy with fusion Not requiring any continuous sedation at this time Goal of RASS 0 Evaluated by neurosurgery/Dr. Viera. No intervention planned at this time CT brain/MRI C-spine negative EEG revealed no epileptic activity Neurology following. Recommend myasthenia gravis lab. Negative to date. No evidence of GBS Left diaphragm remains elevated, suspect not functioning well. Requested second opinion for neurological status See neurology note. Overall strength clinically improving Need aggressive potassium and phosphorus replacement Wound remains well healed and clean Findings of bilateral diaphragm paralysis largely rules out operative injury. CV: Systolic heart failure unknown if acute or chronic Essential hypertension Hyperlipidemia Ejection fraction 45% on admission. Appreciate cardiac evaluation by Dr. Escobedo. No plans at this time Holding amlodipine 10 mg daily, and metoprolol tartrate 12.5 mg twice daily for hypertension Holding clonidine 0.1 twice daily and lisinopril 5 mg daily in light of hypotension/lisinopril for acute kidney injury Continue pravastatin 40 mg daily for dyslipidemia. Continue aspirin 81 mg by mouth daily. Still holding antihypertensives. Holding aspirin while bladder bleeding continues Fluid balance about right now. Resp: Acute hypercapnic respiratory failure- now chronic Klebsiella oxytoca pneumonia PRVC ventilation. Ventilator bundle. Head of bed at 30 degrees Albuterol/ipratropium aerosols every 4 hours with albuterol aerosols every 2 hours as needed dyspnea Will need sniff test to assess diaphragmatic function once off vent We will consult ENT to assess vocal cords when appropriate Appreciate pulmonary input. Spontaneous breathing trial daily. 02/08 discontinued theophylline 400 mg daily acute delirium. Noted level. 04/09 3.7 Status post bronchoscopy 04/11. Thick white purulent secretions left lower lobe suction to clear. General surgery s/p percutaneous tracheostomy 04/14: Dr. Conde daily weaning of CPAP/pressure support. 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 GI: Gastroesophageal reflux disease Transaminitis Hypoalbuminemia Ileus new RUQ pain Tube feeding at 60 cc an hour days. At home on pantoprazole 40 mg daily. Currently on lansoprazole 30 mg daily holding bowel regimen for diarrhea add fiber to diet. RUQ ultrasound -benign Follow liver function tests, lipase No evidence of liver injury. Follow prealbumin weekly. : Irrigation Wood in place because of acute bladder bleeding with clots Endo: Hypothyroidism Hypokalemia Hypophosphatemia TSH 1.28. Continue levothyroxine 125 mg by mouth daily Sliding scale insulin if indicated to maintain euglycemia Aggressive electrolyte replacement Continue scheduled thyroxine Renal: Kidney injury - acute, resolved. Avoid all nephrotoxic medications Creatinine currently 1.1 Neurology consultation for evaluation this is contrast-induced nephropathy from scans 03/31. Avoid nephrotoxic medication. Lisinopril discontinued. Accurate I's and O's Heme: Normocytic anemia Leukocytosis Monitor CBC daily. Follow trends per No indication for transfusion of blood proximal to this time. ID: Klebsiella oxytoca pneumonia sputum 04/01 Completed with ceftriaxone per infectious disease. Started on piperacillin/tazobactam 04/11 due to aspiration, anticipated stop date 04/19 Lumbar puncture negative. HSV negative No growth to date on other cultures aside from sputum Lung ceron remain clear No evidence of ongoing infection. FEN: Hypernatremia-resolved Hypopotassemia Hypokalemia Free water 200 cc every 6 hours. Replace electrolytes as clinically indicated per ICU electrolyte protocol. Recheck electrolytes in a.m. Increase scheduled potassium replacement 50 MEQ twice daily MSK: PT evaluate and treat up to chair daily OT evaluate and treat Access -Utilize peripheral IV. Prophylaxis -GI -lansoprazole -DVT -SCD/enoxaparin Overall impression: Remains weak and de condition. We need to continue to work on nutrition and gentle weaning. OOB and working with PT daily. Finding of bilateral diaphragm paralysis requires further infectious/inflammatory workup.
[2018-04-22] MEDS: Levothyroxine 125 MCG Tablet PO SCH (06:14)
[2018-04-22] MEDS: Potassium Chlor 20 mEq Premix 20 MEQ/100 ML PIGGYBACK IV.SIG PRN ×2 (06:14→08:49)
[2018-04-22] MEDS: hydrALAZINE 50 MG Tablet PO SCH ×3 (06:14→21:30)
[2018-04-22] MEDS: Sertraline 100 MG Tablet PO SCH (09:52)
[2018-04-22] MEDS: Chlorhexidine 0.12% Oral Kit 15 ML UDC OROPHARYNG SCH ×2 (09:52→21:30)
[2018-04-22] MEDS: Psyllium Husk SF 3.4 GM in 5.8 GM Packet NG/OG SCH (09:53)
[2018-04-22] MEDS: Potassium Chloride Liq 20 MEQ/15 ML UDC PO SCH ×2 (09:54→21:55)
[2018-04-22] MEDS ORDERED: Gelatin 12 MM/7 MM Topical Foam ONE (14:01)
[2018-04-22] MEDS: Albumin Human 25% Inj 100 ML IV.SIG SCH (17:35)
--- NOTE | 2018-04-22 18:25 | P.PNID ---
Subjective Remarks: No movements in b/l hemidiafgam on sniff test no fever but WBC up to 13 K CXR w persisten t LLL opacity Antibiotics: NONE Allergies/Adverse Reactions: Allergies Sulfa (Sulfonamide Antibiotics) Allergy (Severe, Verified 02/15/18 05:02) Nausea also flu like symptoms Objective Vital Signs 04/21/18 19:00 04/21/18 19:01 04/21/18 20:00 Temperature Pulse Rate 82 83 92 H Respiratory Rate Blood Pressure 136/73 Pulse Oximetry 98 97 98 04/21/18 20:01 04/21/18 20:35 04/21/18 21:00 Temperature 98.6 F Pulse Rate 92 H 95 H 92 H Respiratory Rate 15 15 Blood Pressure 138/73 156/83 H Pulse Oximetry 98 99 100 04/21/18 21:01 04/21/18 22:01 04/21/18 23:00 Temperature Pulse Rate 92 H 95 H 95 H Respiratory Rate 15 15 Blood Pressure 156/83 H 164/83 H Pulse Oximetry 100 100 99 04/21/18 23:01 04/21/18 23:35 04/22/18 00:00 Temperature 98.1 F Pulse Rate 93 H 84 84 Respiratory Rate 15 Blood Pressure 155/83 H 139/76 Pulse Oximetry 99 100 100 04/22/18 01:00 04/22/18 02:00 04/22/18 03:00 Temperature Pulse Rate 82 96 H 93 H Respiratory Rate 15 15 Blood Pressure 120/72 147/76 H 155/73 H Pulse Oximetry 100 99 100 04/22/18 04:00 04/22/18 04:09 04/22/18 05:00 Temperature 98.2 F Pulse Rate 92 H 88 90 Respiratory Rate 15 15 15 Blood Pressure 141/74 H 143/72 H Pulse Oximetry 99 100 100 04/22/18 06:00 04/22/18 07:00 04/22/18 07:01 Temperature Pulse Rate 80 81 82 Respiratory Rate Blood Pressure 141/77 H 130/65 Pulse Oximetry 100 100 100 04/22/18 07:25 04/22/18 08:00 04/22/18 08:01 Temperature 98.3 F Pulse Rate 93 H 85 84 Respiratory Rate 15 Blood Pressure 144/78 H Pulse Oximetry 99 100 100 04/22/18 09:00 04/22/18 09:01 04/22/18 10:00 Temperature Pulse Rate 82 83 106 H Respiratory Rate 13 Blood Pressure 153/72 H 153/72 H Pulse Oximetry 100 100 98 04/22/18 11:00 04/22/18 11:01 04/22/18 11:27 Temperature Pulse Rate 96 H 96 H 99 H Respiratory Rate 15 Blood Pressure 149/69 H Pulse Oximetry 98 97 97 04/22/18 12:00 04/22/18 12:01 04/22/18 13:00 Temperature Pulse Rate 97 H 97 H 79 Respiratory Rate Blood Pressure 144/73 H Pulse Oximetry 98 98 100 04/22/18 13:01 04/22/18 14:00 04/22/18 14:01 Temperature Pulse Rate 80 88 90 Respiratory Rate Blood Pressure 121/65 133/78 Pulse Oximetry 100 100 100 04/22/18 15:00 04/22/18 15:01 04/22/18 15:14 Temperature Pulse Rate 89 83 89 Respiratory Rate 13 Blood Pressure 125/62 Pulse Oximetry 99 99 100 04/22/18 16:00 04/22/18 16:01 04/22/18 17:00 Temperature Pulse Rate 88 89 96 H Respiratory Rate Blood Pressure 127/67 Pulse Oximetry 100 100 98 04/22/18 17:01 Temperature Pulse Rate 95 H Respiratory Rate Blood Pressure 133/60 Pulse Oximetry 98 Intake & Output 04/21/18 04/22/18 04/22/18 18:59 06:59 18:59 Intake Total 1040 / 1040 450 / 450 590 / 590 Output Total 3300 / 3300 1000 / 1000 Balance -2260 / -2260 450 / 450 -410 / -410 Weight 82.6 kg Intake: IV 100 / 100 KCl 20 mEq Premix Inj 20 meq In 100 / 100 100 ml @ 50 mls/hr IV.SIG Q2H PRN Rx#:[id number] Tube Feeding 290 / 290 Water Bolus Amount 400 / 400 Free Water Amount 400 / 400 450 / 450 200 / 200 Other 240 / 240 Output: Stool 1000 / 1000 900 / 900 Urine Amount (Catheter) 2300 / 2300 100 / 100 3-way Urethral 2300 / 2300 100 / 100 Gastric Drainage 0 / 0 L nare Dobbhoff 0 / 0 Other: Bladder Irrigation Fluid - Amount Instilled 3-way Urethral 5,800 4,000 Bladder Irrigation Fluid - Amount Drained 3-way Urethral 3,500 # Incontinent Voids 3 Date of Last Bowel Movement 04/21/18 04/22/18 04/22/18 04/19/18 18:45 Catheterized Urine Urine Culture - Final No growth in 48 hours Lab - Hematology Results 04/21/18 03:39 WBC 13.1 H RBC 2.52 L Hgb 7.8 L Hct 23.1 L MCV 91.5 MCH 30.9 MCHC 33.7 RDW 15.1 Plt Count 282 MPV 9.4 Lab - Chemistry Results 04/21/18 04/22/18 03:39 03:31 Sodium 142 143 Potassium 3.7 3.5 Chloride 109 H 109 H Carbon Dioxide 27.7 26.8 Anion Gap 5 7 BUN 12 16 Creatinine 0.54 L 0.63 Estimated GFR Greater than 89 Greater than 89 Random Glucose 91 121 H Calcium 7.6 L 7.9 L Phosphorus 1.7 L Magnesium 2.4 Imaging: ITS Impressions Head MRI 03/31/18 00:00 CONCLUSION: Negative exam Head CT 03/31/18 12:16 CONCLUSION: 1. Negative CT Head non contrast. . Chest CTA 03/31/18 14:39 CONCLUSION: 1. Bibasilar atelectatic changes, left greater than right. No confluent infiltrate. 2. No pulmonary embolus. 3. Atherosclerotic calcification of the coronary arteries. Cervical Spine MRI 03/31/18 16:17 CONCLUSION: 1. Status post fusion at the C5-C6 level. There is susceptibility artifact from the hardware. 2. A significant area of stenosis in the thecal sac is not seen. 3. Facet hypertrophy seen throughout with scattered areas of neural foraminal narrowing as described above. 4. The patient is intubated with fluid in the hypopharynx, laryngeal pharynx, and upper trachea around the ET tube and above the tracheal ET tube cuff. 5. The does appear to be some mild soft tissue swelling in the prevertebral region best seen on the sagittal images. Abdomen/Bladder Ultrasound 04/10/18 08:05 CONCLUSION: 1. Probable complex cyst coming off the right lower pole kidney appears smaller since 2017 CT examination of the abdomen. Chest CT 04/11/18 00:00 CONCLUSION: 1. Patchy nodular opacities in the right lower lobe coalescing posteriorly most consistent with an infectious etiology such as bronchopneumonia. 2. Near complete left lower lobe collapse and dense airspace consolidation in the posterior right lower lobe. Differential considerations include aspiration. 3. Coronary artery cavitations. Abdomen X-Ray 04/15/18 05:07 CONCLUSION: Dobbhoff tube tip now seen in the stomach. Gallbladder Ultrasound 04/16/18 00:00 CONCLUSION: 1. Minimal prominence of the gallbladder wall. No pericholecystic fluid is seen no stones are evident. 2. Increased echogenicity of the liver suggesting fatty infiltration. Abdomen/Pelvis CT 04/19/18 10:15 CONCLUSION: 1. Tiny 1 mm calculus now noted in the posterior left side of the bladder which could represent a small bladder calculi or distal ureteral calculus. 2. The left kidney appears unremarkable and there is no hydronephrosis. The ureters appear within normal limits. 3. Single tiny nonobstructing right renal calculus without change. The previously noted complex cystic lesion in the lower pole is faintly visualized. 4. Nonspecific bowel gas pattern which may represent an ileus. Chest Fluoroscopy 04/21/18 00:00 CONCLUSION: No diaphragmatic motion on either side. Respiratory pattern suspicious for high neurological deficit above C5. Repeat MRI of the brain, cervical and without and with contrast while ventilated to exclude motion artifact would be very helpful. Chest X-Ray 04/21/18 00:00 CONCLUSION: 1. No significant interval change. 2. Stable tracheostomy and nasoenteric feeding catheter. 3. Stable left basilar airspace disease. Physical Exam: GENERAL: NAD awake, unint'd SKIN: Warm and dry. NECK: Trach in place, + some secretons. No JVD. CARDIOVASCULAR: Regular , rate, rhtyms RESPIRATORY: No accessory muscle use. Clear to auscultation. Breath sounds equal, decreased bilaterally. GASTROINTESTINAL: Abdomen soft, non-tender, nondistended. Hepatic and splenic margins not palpable. : lehman in place, urine is pink MUSCULOSKELETAL: Extremities without clubbing, cyanosis, NEUROLOGICAL: awake, alert PSYCHIATRIC: calm Assessment and Plan - Plan C spine fusion Hypercapnia difficulty breathing developped after surgery Kleb oxytoca PNA signs of PNA resolved cliniclaly and radiologically Acute VDRF, improving fever, low grade: resolved No e/o [employer]ICIAN infx New leukocytosis - resolved ARF - resolved Aspiration PNA today's CXR Minimal bibasilar densities, sp abx : completed 2/6 Sepsis, improving abx associated diarrhea C.diff negative 04/15 Gu bleeding B/l phernic nerve paralysis: post viral GBS will not present with islated diaphragm weakness but also will see other muscel groups involvemtn low risk for Lyme dz exposure follow off abx follow WBC will dw neurologist consider repeating MR C spine and brain w/wo contrast chk SPEP, UPEP dw Dr Marcos tijerina family @ b/s breezy RN
[2018-04-23] MEDS: Magnesium Oxide 400 MG Tablet PO SCH ×3 (00:02→22:59)
[2018-04-23] MEDS: Oral Hygiene Kit OROPHARYNG SCH ×4 (00:03→17:37)
[2018-04-23] MEDS: Artificial Tears Opth Drops 15 ML Bottle EACH EYE SCH ×3 (00:03→17:37)
[2018-04-23] MEDS: Pyridostigmine Bromide 60 MG Tablet PO SCH ×6 (01:57→20:20)
[2018-04-23] MEDS: Albumin Human 25% Inj 100 ML IV.SIG SCH ×2 (06:17→17:37)
[2018-04-23] MEDS: hydrALAZINE 50 MG Tablet PO SCH ×3 (06:18→21:49)
[2018-04-23] MEDS: Levothyroxine 125 MCG Tablet PO SCH (06:18)
[2018-04-23] MEDS: Sertraline 100 MG Tablet PO SCH (08:42)
--- NOTE | 2018-04-23 08:42 | P.PNCC ---
Subjective Subjective Remarks/Hospital Course: This 67-year-old came into the emergency room today with his and daughter. On 02/13/2018, he had a microdiscectomy, C5-C6, by Dr. Schwarz. He was discharged home the next day. A few days after, he had not been feeling well, short of breath, disoriented, generally weak, symptoms were getting worse, disorientation was worse. He was referred to emergency department by his primary care physician for an evaluation. In the ED he was found to be in severe hypercarbic respiratory acidosis and was intubated by ED attending. 04/01: CO2 retention corrected. Remains mildly alkalotic due to chronic CO2 elevation. PH normalized. Still requiring vasopressor therapy with norepinephrine. Broad-spectrum antibiotic coverage started. Lumbar puncture performed with opening pressure 20 and crystal-clear fluid, sent for cell counts , chemistries and culture. HSV included. One extra tube sent for future studies if necessary. Ammonia level 71 - repeat daily. 04/02: CSF appears benign. Repeat ammonia level normal. Gamma GT normal. Cardiac echo estimated of 45% ejection fraction requires a little additional investigation -patient has been chronically short of breath for several weeks now. Leukocytosis and left shift persists. Gram-positive cocci and white cells seen in sputum. This man clearly became acutely and critically ill - exact cause still eludes us. 04/03: Leukocytosis improved. Remains quite rigid when stimulated. Continues to move 4 limbs with purpose and follows commands with 4 limbs. Sputum demonstrates white blood cells and gram-negative rods. 04/04: Improved color and perfusion. Extubated yesterday afternoon but failed after about 45 minutes -developed somnolence then obtundation, appeared to be having difficulty taking a breath, concern for vocal cord dysfunction. On reintubation the cord edges were irregular but otherwise normal in appearance. I could not assess cord function as patient was not alert enough to cooperate with commands. We will definitely pursue possibilities of vocal cord dysfunction and or phrenic nerve paralysis once we get him extubated. Ideally, a sniff test under fluoroscopy would demonstrate any paradoxical diaphragm motion. 04/05: Afebrile. Neurologically appears intact. Daughter concerned about "appears distant" however on 40 mcg/kg/min of propofol and 250 mcg an hour fentanyl. No bowel movement since admission. Tube feeding only at 20 cc an hour. 04/06: Afebrile. Neurologically intact. Following commands.. Positive BM. Labile blood pressures yesterday. Replace potassium currently. 04/07: Patient writing notes today. Chest x-ray clear. Elevated left diaphragm , probably dysfunctional. Continued encephalopathy and generalized weakness chris very concerning. We will try Aminophyllin today to see if we can get some diaphragm and central nervous system stimulation. 04/08: Started on theophylline yesterday. Check level in a.m. Will attempt PSV trial today. Noted pulmonology requests possible T-bar with ABG when appropriate. Afebrile. 04/09: T-max 100. theophylline currently 3.7. Currently on CPAP trials. 02/18. 45%. Check ABG at 10 today. Desaturated yesterday currently back at 40%. 04/10: Resting in bed. Episode of nausea overnight. Negative workup. Evaluated positive BM 04/08. Patient more agitated overnight. Propofol discontinued due to hypotension. Currently on fentanyl drip. Theophylline. Creatinine currently 2.0 we will consult nephrology. Discontinue lisinopril. Receiving one half normal saline bolus currently. 04/11: T-max 101.1. Increasing O2 records.Increasing white blood cell count. For the cuff is overinflated to palpate the vocal cords. Leak by examination. Will change ET tube in place central line today. Empirically start antibiotics for aspiration. Not tolerating tube feeds and currently to low inner wall suction. Check KUB after ET tube exchange and central line placement. Restart metoclopramide. Positive BMs. 04/12: Yesterday, CT thorax revealed collapsed left lower lung. Status post bronchoscopy with reinflation of lung. Better saturations today. Continues with small and large bowel colonic distention. Right: 11 cm. GI is following. Might need decompression. Current orogastric tube to low intermittent wall suction. 04/13: Improved small and large bowel colonic distention. Down to 8 cm long family discussion. We will perform percutaneous tracheostomy and PEG tube as well. Request second neurological opinion. In better spirits today. 04/14: no changes. awakens and follows commands. plan for trach today. 22: s/p trach yesterday. awake and alert. calm. looks more comfortable than yesterday. did not tolerate PRVC today, but tolerates PSV with high support (24/ 5/35%). SUBJECTIVE: 2/3: complaining of new RUQ pain. ?+Fry's sign. labs wnl today. no other complaints. denies nausea or vomiting. still has diarrhea, but this is slowing down after holding bowel regimen. ROS otherwise negative. 04/17: Gallbladder ultrasound appears benign. No new complaints. 04/18: Remains on the vent. Tolerated approximately 7 hours of CPAP yesterday with high PS. Still complaining of diarrhea. Most likely induced by tube feeds. Potassium remains low at 2.7. Potassium replacement in addition to protocol given followed by KCl 20 meq twice daily scheduled. Probably GI loss 04/19: Clinically improving tolerating CPAP better today. Pressure support reduced to 12. Near normal strength normal reflexes normal sensation. Continue aggressive potassium and phosphorus replacement. 04/20: Irrigation Wood placed and bladder for removal of large blood clots. Will delay bedside sniff test until urinary problems clear up. Anticipate indirect laryngoscopy to nasal approach soon. 04/21: Bleeding from Wood catheter markedly reduced, just pink fluid now. Awake and alert this morning. We will attempt sniff test this morning under fluoroscopy. Update: Sniff test performed under fluoroscopy by Dr. Ritesh Damon shows no diaphragmatic function on either left or right side. The patient participated well with the testing clearly used his intercostal and shoulder muscles vigorously. This pattern is clearly more consistent with a neurological illness and pretty much eliminates the likelihood of traumatic etiology. 04/22: Dr. Ritesh Damon finds and recommends: No diaphragmatic motion on either side. Respiratory pattern suspicious for high neurological deficit above C5. Repeat MRI of the brain, cervical and without and with contrast while ventilated to exclude motion artifact would be very helpful. 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 04/23: Continuing on spontaneous breathing trials with elevated pressure support. Using exaggerated accessory muscles the patient is able to breathe through relative comfort. 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 We plan to get repeat MRI brain and c-spine tomorrow - w/wo contrast per Dr. Ritesh Damon request. Objective Vital Signs / I&O: Vital Signs 04/22/18 09:00 04/22/18 09:01 04/22/18 10:00 Temperature Pulse Rate 82 83 106 H Respiratory Rate 13 Blood Pressure 153/72 H 153/72 H Pulse Oximetry 100 100 98 04/22/18 11:00 04/22/18 11:01 04/22/18 11:27 Temperature Pulse Rate 96 H 96 H 99 H Respiratory Rate 15 Blood Pressure 149/69 H Pulse Oximetry 98 97 97 04/22/18 12:00 04/22/18 12:01 04/22/18 13:00 Temperature Pulse Rate 97 H 97 H 79 Respiratory Rate Blood Pressure 144/73 H Pulse Oximetry 98 98 100 04/22/18 13:01 04/22/18 14:00 04/22/18 14:01 Temperature Pulse Rate 80 88 90 Respiratory Rate Blood Pressure 121/65 133/78 Pulse Oximetry 100 100 100 04/22/18 15:00 04/22/18 15:01 04/22/18 15:14 Temperature Pulse Rate 89 83 89 Respiratory Rate 13 Blood Pressure 125/62 Pulse Oximetry 99 99 100 04/22/18 16:00 04/22/18 16:01 04/22/18 17:00 Temperature Pulse Rate 88 89 96 H Respiratory Rate Blood Pressure 127/67 Pulse Oximetry 100 100 98 04/22/18 17:01 04/22/18 18:00 04/22/18 18:01 Temperature 98.6 F Pulse Rate 95 H 88 88 Respiratory Rate Blood Pressure 133/60 114/69 Pulse Oximetry 98 99 98 04/22/18 19:00 04/22/18 19:01 04/22/18 19:41 Temperature Pulse Rate 91 H 93 H Respiratory Rate 15 Blood Pressure 115/56 L Pulse Oximetry 99 99 99 04/22/18 19:43 04/22/18 20:00 04/22/18 20:01 Temperature 98.1 F Pulse Rate 90 86 84 Respiratory Rate 16 Blood Pressure 122/58 L Pulse Oximetry 100 100 04/22/18 21:00 04/22/18 21:01 04/22/18 22:00 Temperature Pulse Rate 81 83 96 H Respiratory Rate Blood Pressure 135/63 Pulse Oximetry 100 100 99 04/22/18 22:01 04/22/18 23:00 04/22/18 23:01 Temperature Pulse Rate 103 H 80 79 Respiratory Rate Blood Pressure 155/74 H 119/72 Pulse Oximetry 99 100 100 04/22/18 23:05 04/22/18 23:06 04/23/18 00:00 Temperature 98.6 F Pulse Rate 105 H 98 H Respiratory Rate 15 17 Blood Pressure Pulse Oximetry 100 94 L 04/23/18 00:01 04/23/18 01:00 04/23/18 01:01 Temperature Pulse Rate 97 H 79 79 Respiratory Rate Blood Pressure 128/60 119/67 Pulse Oximetry 94 L 100 99 04/23/18 02:00 04/23/18 02:01 04/23/18 02:11 Temperature Pulse Rate 97 H 97 H Respiratory Rate 15 Blood Pressure 152/73 H Pulse Oximetry 98 98 97 04/23/18 03:00 04/23/18 03:01 04/23/18 03:32 Temperature Pulse Rate 78 78 84 Respiratory Rate 15 Blood Pressure 148/67 H Pulse Oximetry 98 99 04/23/18 04:00 04/23/18 04:01 04/23/18 04:09 Temperature 98.1 F Pulse Rate 83 94 H Respiratory Rate 15 Blood Pressure 146/71 H Pulse Oximetry 98 98 100 04/23/18 05:00 04/23/18 05:01 04/23/18 06:00 Temperature Pulse Rate 79 81 75 Respiratory Rate Blood Pressure 131/75 Pulse Oximetry 99 100 99 04/23/18 06:01 04/23/18 07:00 04/23/18 07:01 Temperature Pulse Rate 78 85 83 Respiratory Rate Blood Pressure 149/75 H 145/71 H Pulse Oximetry 99 99 100 04/23/18 07:41 Temperature Pulse Rate 96 H Respiratory Rate 15 Blood Pressure Pulse Oximetry 99 Intake & Output 04/22/18 04/23/18 04/23/18 18:59 06:59 18:59 Intake Total 1275 / 1275 908 / 908 Output Total 2950 / 2950 2375 / 2375 Balance -1675 / -1675 -1467 / -1467 Weight 82.6 kg 80.8 kg Intake: IV 100 / 100 100 / 100 Flexbumin 25% Inj 100 ML @ 60 100 / 100 mls/hr IV.SIG Q12H GIGI Rx#: [id number] KCl 20 mEq Premix Inj 20 meq In 100 / 100 100 ml @ 50 mls/hr IV.SIG Q2H PRN Rx#:[id number] Tube Feeding 455 / 455 628 / 628 Tube Irrigant 120 / 120 180 / 180 Water Bolus Amount 400 / 400 Free Water Amount 200 / 200 Output: Stool 1150 / 1150 0 / 0 Urine Amount (Catheter) 1799 / 237 3-way Urethral 1799 Other: Bladder Irrigation Fluid - Amount Instilled 3-way Urethral 13,500 2,500 Bladder Irrigation Fluid - Amount Drained 3-way Urethral 15,200 4,875 Date of Last Bowel Movement 04/22/18 04/23/18 Result Diagrams: 04/21/18 03:39 04/23/18 08:15 Objective Remarks: GENERAL: 67-year-old male. Awake alert SKIN: Warm and dry. HEAD: Atraumatic. Normocephalic. EYES: Pupils equal and round. No scleral icterus. No injection or drainage. ENT: No nasal bleeding or discharge. Mucous membranes pink and moist. Dobbhoff tube in place NECK: Trachea midline. No JVD. Trach site with some minor oozing. CARDIOVASCULAR: RRR sinus. Normal S1-S2 RESPIRATORY: Lungs generally clear. Tolerating longer stretches of spontaneous breathing trials but requiring elevated pressure support. GASTROINTESTINAL: Abdomen slightly protuberant/non-tender, soft, bowel sounds active MUSCULOSKELETAL: Extremities without clubbing, cyanosis, trace to 1+ edema. No obvious deformities. NEUROLOGICAL: Follows commands and moves extremities to command. Limb strength 5 /5. No focal deficits. Assessment and Plan - Assessment and Plan Plan: Neuro/Psych: History of anterior C5/6 microdiscectomy with fusion Not requiring any continuous sedation at this time Goal of RASS 0 Evaluated by neurosurgery/Dr. Viera. No intervention planned at this time CT brain/MRI C-spine negative EEG revealed no epileptic activity Neurology following. Recommend myasthenia gravis lab. Negative to date. No evidence of GBS Left diaphragm remains elevated, suspect not functioning well. Requested second opinion for neurological status See neurology note. Overall strength clinically improving Need aggressive potassium and phosphorus replacement Wound remains well healed and clean Findings of bilateral diaphragm paralysis largely rules out operative injury. CV: Systolic heart failure unknown if acute or chronic Essential hypertension Hyperlipidemia Ejection fraction 45% on admission. Appreciate cardiac evaluation by Dr. Escobedo. No plans at this time Holding amlodipine 10 mg daily, and metoprolol tartrate 12.5 mg twice daily for hypertension Holding clonidine 0.1 twice daily and lisinopril 5 mg daily in light of hypotension/lisinopril for acute kidney injury Continue pravastatin 40 mg daily for dyslipidemia. Continue aspirin 81 mg by mouth daily. Still holding antihypertensives. Holding aspirin while bladder bleeding continues Due to increasing peripheral edema we will initiate diuretic therapy. Resp: Acute hypercapnic respiratory failure- now chronic Klebsiella oxytoca pneumonia PRVC ventilation. Ventilator bundle. Head of bed at 30 degrees Albuterol/ipratropium aerosols every 4 hours with albuterol aerosols every 2 hours as needed dyspnea Will need sniff test to assess diaphragmatic function once off vent We will consult ENT to assess vocal cords when appropriate Appreciate pulmonary input. Spontaneous breathing trial daily. 02/08 discontinued theophylline 400 mg daily acute delirium. Noted level. 04/09 3.7 Status post bronchoscopy 04/11. Thick white purulent secretions left lower lobe suction to clear. General surgery s/p percutaneous tracheostomy 04/14: Dr. Conde daily weaning of CPAP/pressure support. 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 GI: Gastroesophageal reflux disease Transaminitis Hypoalbuminemia Ileus new RUQ pain Tube feeding at 60 cc an hour days. At home on pantoprazole 40 mg daily. Currently on lansoprazole 30 mg daily holding bowel regimen for diarrhea add fiber to diet. RUQ ultrasound -benign Follow liver function tests, lipase No evidence of liver injury. Follow prealbumin weekly. : Irrigation Wood in place because of acute bladder bleeding with clots Endo: Hypothyroidism Hypokalemia Hypophosphatemia TSH 1.28. Continue levothyroxine 125 mg by mouth daily Sliding scale insulin if indicated to maintain euglycemia Aggressive electrolyte replacement Continue scheduled thyroxine Follow TSH Renal: Kidney injury - acute, resolved. Avoid all nephrotoxic medications Creatinine currently 1.1 Neurology consultation for evaluation this is contrast-induced nephropathy from scans 03/31. Avoid nephrotoxic medication. Lisinopril discontinued. Accurate I's and O's difficult to obtain with bladder irrigation Heme: Normocytic anemia Leukocytosis Monitor CBC daily. Follow trends per No indication for transfusion of blood proximal to this time. ID: Klebsiella oxytoca pneumonia sputum 04/01 Completed with ceftriaxone per infectious disease. Started on piperacillin/tazobactam 04/11 due to aspiration, anticipated stop date 04/19 Lumbar puncture negative. HSV negative No growth to date on other cultures aside from sputum Lung ceron remain clear No evidence of ongoing infection. FEN: Hypernatremia-resolved Hypopotassemia Hypokalemia Free water 200 cc every 6 hours. Replace electrolytes as clinically indicated per ICU electrolyte protocol. Recheck electrolytes in a.m. Increase scheduled potassium replacement 50 MEQ twice daily MSK: PT evaluate and treat up to chair daily OT evaluate and treat Access -Utilize peripheral IV. Prophylaxis -GI -lansoprazole -DVT -SCD/enoxaparin Overall impression: Remains weak and de conditioned. We continue to work on nutrition and ventilator weaning. OOB and working with PT daily. We are presently looking at disease processes which could lead to bilateral diaphragmatic paresis.
[2018-04-23] MEDS: Potassium Chloride Liq 20 MEQ/15 ML UDC PO SCH ×2 (08:44→20:21)
[2018-04-23] MEDS: Chlorhexidine 0.12% Oral Kit 15 ML UDC OROPHARYNG SCH ×2 (08:45→20:21)
[2018-04-23] MEDS: Psyllium Husk SF 3.4 GM in 5.8 GM Packet NG/OG SCH (08:45)
[2018-04-23 09:52] LABS: Anion Gap 5 meq/L (5-15); Blood Urea Nitrogen 15 mg/dL (7-18); Calcium 7.9 mg/dL (8.5-10.1); Carbon Dioxide 27.9 meq/L (21.0-32.0); Chloride 108 meq/L (98-107); Glomerular Filtration Rate Greater Than 89 mL/min (>89); Glucose,Random 107 mg/dL (74-106); Magnesium 2.4 mg/dL (1.5-2.5); Potassium 3.7 meq/L (3.5-5.1); Sodium 141 meq/L (136-145)
[2018-04-23 10:23] LABS: Prealbumin 21 mg/dL (20-40)
[2018-04-24] MEDS: Pyridostigmine Bromide 60 MG Tablet PO SCH ×6 (00:52→20:59)
[2018-04-24] MEDS: Artificial Tears Opth Drops 15 ML Bottle EACH EYE SCH ×3 (00:52→16:12)
[2018-04-24] MEDS: Oral Hygiene Kit OROPHARYNG SCH ×4 (00:52→16:12)
[2018-04-24] MEDS: Albumin Human 25% Inj 100 ML IV.SIG SCH ×2 (06:41→18:29)
[2018-04-24] MEDS: Levothyroxine 125 MCG Tablet PO SCH (06:41)
[2018-04-24] MEDS: hydrALAZINE 50 MG Tablet PO SCH ×3 (06:41→21:00)
--- NOTE | 2018-04-24 09:00 | P.PNURO ---
Subjective Patient symptoms today: Pt seen and examined. Still with hematuria on CBI. Objective Vital Signs: Vital Signs 04/23/18 09:00 04/23/18 09:01 04/23/18 10:00 Temperature Pulse Rate 92 H 94 H 96 H Respiratory Rate Blood Pressure 145/83 H Pulse Oximetry 97 96 99 04/23/18 10:01 04/23/18 11:00 04/23/18 11:01 Temperature Pulse Rate 89 91 H 87 Respiratory Rate Blood Pressure 148/74 H 152/90 H Pulse Oximetry 99 98 97 04/23/18 11:13 04/23/18 12:00 04/23/18 12:01 Temperature 98.6 F Pulse Rate 93 H 101 H 99 H Respiratory Rate 15 Blood Pressure 185/74 H Pulse Oximetry 99 98 98 04/23/18 12:48 04/23/18 13:00 04/23/18 13:01 Temperature Pulse Rate 95 H 91 H 88 Respiratory Rate Blood Pressure 148/81 H 145/74 H Pulse Oximetry 99 99 99 04/23/18 13:51 04/23/18 13:58 04/23/18 14:01 Temperature Pulse Rate 76 105 H Respiratory Rate Blood Pressure 167/83 H 172/92 H Pulse Oximetry 99 99 04/23/18 14:17 04/23/18 15:00 04/23/18 15:02 Temperature Pulse Rate 97 H Respiratory Rate 18 Blood Pressure Pulse Oximetry 98 98 98 04/23/18 16:00 04/23/18 16:04 04/23/18 17:00 Temperature 97.8 F 98.6 F Pulse Rate 103 H 104 H 88 Respiratory Rate Blood Pressure 120/76 120/76 Pulse Oximetry 99 99 97 04/23/18 18:00 04/23/18 18:32 04/23/18 19:00 Temperature Pulse Rate 88 86 86 Respiratory Rate Blood Pressure 162/76 H Pulse Oximetry 92 L 94 L 97 04/23/18 19:31 04/23/18 20:00 04/23/18 20:41 Temperature 98.6 F Pulse Rate 79 95 H Respiratory Rate 19 Blood Pressure 140/68 Pulse Oximetry 96 98 95 04/23/18 21:00 04/23/18 22:00 04/23/18 23:00 Temperature Pulse Rate 91 H 77 93 H Respiratory Rate Blood Pressure Pulse Oximetry 95 98 98 04/23/18 23:11 04/24/18 00:00 04/24/18 00:41 Temperature Pulse Rate 79 77 Respiratory Rate 15 Blood Pressure 145/66 H Pulse Oximetry 99 98 98 04/24/18 01:00 04/24/18 01:16 04/24/18 02:00 Temperature Pulse Rate 80 98 H 77 Respiratory Rate Blood Pressure 142/66 H Pulse Oximetry 98 96 97 04/24/18 03:00 04/24/18 03:13 04/24/18 03:22 Temperature Pulse Rate 78 75 Respiratory Rate 15 Blood Pressure 120/78 Pulse Oximetry 96 98 98 04/24/18 04:00 04/24/18 05:00 04/24/18 06:00 Temperature 98.7 F Pulse Rate 91 H 79 90 Respiratory Rate 16 Blood Pressure Pulse Oximetry 95 96 95 04/24/18 06:45 04/24/18 08:34 Temperature Pulse Rate 76 Respiratory Rate Blood Pressure 150/78 H Pulse Oximetry 96 94 L Intake & Output 04/23/18 04/24/18 04/24/18 18:59 06:59 18:59 Intake Total 1082 / 1082 887 / 887 Output Total 3260 / 3260 1745 / 1745 Balance -2178 / -2178 -858 / -858 Weight 77 kg Intake: IV 100 / 100 100 / 100 Flexbumin 25% Inj 100 ML @ 60 100 / 100 100 / 100 mls/hr IV.SIG Q12H [facility] Rx#: [id number] Tube Feeding 462 / 462 607 / 607 Tube Irrigant 120 / 120 180 / 180 Water Bolus Amount 400 / 400 Output: Stool 20 / 20 Urine Amount (Catheter) 3250 / 3250 1725 / 1725 3-way Urethral 3250 / 3250 1725 / 1725 Other: Bladder Irrigation Fluid - Amount Instilled 3-way Urethral 8,100 9,000 Bladder Irrigation Fluid - Amount Drained 3-way Urethral 11,350 10,725 Date of Last Bowel Movement 04/23/18 04/24/18 Result Diagrams: 04/21/18 03:39 04/23/18 08:15 Medications and IVs: Active Medications Generic Name Dose Route Start Last Admin Trade Name Freq PRN Reason Stop Dose Admin Acetaminophen 650 mg 04/10/18 08:00 04/16/18 21:02 Tylenol PO 650 mg Q6H PRN Administration Temp > 100.4 Albuterol 2.5 mg 04/05/18 09:00 Albuterol Neb (Prn) NEB Q2HR NEB PRN DYSPNEA Artificial Tears 1 drop 04/05/18 09:00 04/24/18 00:52 Tears Naturale Opth Drops EACH EYE 1 drop Q8H [facility] Administration Aspirin 81 mg 04/10/18 09:00 04/19/18 08:01 Aspirin Chew PO 81 mg DAILY [facility] Administration Belladonna Alkaloids/Opium 60 mg 04/20/18 11:10 B & O Supp RECTAL Q6HR PRN bladder spasms Chlorhexidine Gluconate 15 ml 03/31/18 20:00 04/23/18 20:21 Peridex 0.12% Oral Kit OROPHARYNG 15 ml BID@08,1999 [facility] Administration Sodium Chloride 3,000 ml/ 0 ml 04/24/18 08:55 Aminocaproic Acid 3,000 mg IRRIGATION Q24H [facility] Enoxaparin Sodium 40 mg 04/06/18 12:00 04/19/18 08:01 Lovenox Inj SQ 40 mg DAILY [facility] Administration Furosemide 40 mg 04/22/18 17:30 04/23/18 08:45 Lasix Inj IV.PUSH 40 mg DAILY [facility] Administration Hydralazine HCl 50 mg 04/16/18 19:15 04/24/18 06:41 Apresoline PO 50 mg Q8HR [facility] Administration Magnesium Sulfate 4 gm/ Sodium 100 mls @ 50 mls/hr 04/12/18 06:15 Chloride IV.SIG UNSCH PRN For Magnesium 0.9 - 1.1 mg/dL Potassium Chloride 40 meq in 100 mls @ 25 mls/hr 04/12/18 06:15 04/15/18 06: 37 Kcl 40 Meq Premix Inj IV.SIG Infused Q2H PRN Infusion For Potassium 2.8 - 3.2 mEq/L Potassium Chloride 20 meq in 100 mls @ 50 mls/hr 04/12/18 06:15 04/22/18 08: 49 Kcl 20 Meq Premix Inj IV.SIG 50 mls/hr Q2H PRN Administration For Potassium 3.3 - 3.5 mEq/L Potassium Chloride 40 meq in 100 mls @ 25 mls/hr 04/12/18 06:15 04/12/18 10: 35 Kcl 40 Meq Premix Inj IV.SIG Infused UNSCH PRN Infusion For Potassium 3.3 - 3.5 mEq/L Potassium Chloride 20 meq in 100 mls @ 50 mls/hr 04/12/18 06:15 04/20/18 06: 05 Kcl 20 Meq Premix Inj IV.SIG 50 mls/hr Q2H PRN Administration For Potassium 2.8 - 3.2 mEq/L Potassium Phosphate 30 mmol/ 260 mls @ 42 mls/hr 04/12/18 06:15 04/19/18 15: 35 Sodium Chloride IV.SIG Infused UNSCH PRN Infusion SEE LABEL COMMENTS Magnesium Sulfate 2 gm/ Sodium 100 mls @ 50 mls/hr 04/12/18 06:15 Chloride IV.SIG UNSCH PRN For Magnesium 1.2 - 1.6 mg/dL Sodium Phosphate 30 mmol/ 260 mls @ 42 mls/hr 04/12/18 06:15 Sodium Chloride IV.SIG UNSCH PRN For Phosphorus < 2.5 mg/dL Albumin Human 100 mls @ 60 mls/hr 04/22/18 18:00 04/24/18 06:41 Flexbumin 25% Inj IV.SIG 60 mls/hr Q12H [facility] Administration Labetalol HCl 20 mg 04/09/18 17:00 04/21/18 13:14 Trandate Inj IV.PUSH 20 mg Q1H PRN Administration SBP > 160 Lansoprazole 30 mg 04/10/18 09:00 04/23/18 08:42 Prevacid Solutab NG/OG 30 mg DAILY [facility] Administration Levothyroxine Sodium 125 mcg 04/01/18 06:00 04/24/18 06:41 Synthroid PO 125 mcg DAILY@0600 G[facility] Administration Magnesium Oxide 800 mg 04/12/18 06:15 Mag-Ox PO UNSCH PRN For Magnesium 1.2 - 1.6 mg/dL Magnesium Oxide 400 mg 04/19/18 11:00 04/23/18 22:59 Mag-Ox PO 400 mg BID@1100,2300 G[facility] Administration Miscellaneous 1 each 04/19/18 11:31 Pill Splitter OTHER UNSCH PRN SEE LABEL COMMENTS Miscellaneous Medication 1 each 04/01/18 00:00 04/24/18 04:54 OROPHARYNG 1 each 0000,0400,1200,1600 [facility] Administration Ondansetron HCl 4 mg 04/10/18 08:03 Zofran Inj IV.PUSH Q4H PRN NAUSEA OR VOMITING Oxycodone HCl 5 mg 04/16/18 13:22 04/16/18 13:36 Roxicodone Intensol Liq PO 5 mg Q4H PRN Administration pain 4-6 Oxymetazoline HCl 2 spray 04/19/18 15:32 Afrin 0.05% Nasal [place] NASAL Q12H PRN Bronchoscopy Polyethylene Glycol 17 gm 04/05/18 09:00 04/15/18 21:00 Miralax PO Not Given BID [facility] Potassium Chloride 40 meq 04/12/18 06:15 04/17/18 17:38 Kcl Liq PO 40 meq UNSCH PRN Administration Potassium level 3.3-3.5 mEq/L Potassium Chloride 40 meq 04/12/18 06:15 04/16/18 14:59 Kcl Liq PO 40 meq UNSCH PRN Administration Potassium level 3.3-3.5 mEq/L Potassium Chloride 50 meq 04/19/18 10:30 04/23/18 20:21 Kcl Liq PO 50 meq BID GIGI Administration Potassium Phosphate 2,000 mg 04/12/18 06:15 04/17/18 10:48 K-Phos Original PO 2,000 mg Q4H PRN Administration Phosphorus Less Than 2.5 mg/dL Potassium Phosphate 2,000 mg 04/12/18 06:15 K-Phos Original PO UNSCH PRN SEE LABEL COMMENTS Pravastatin Sodium 40 mg 03/31/18 21:00 04/23/18 20:20 Pravachol PO 40 mg HS [facility] Administration Psyllium Hydrophilic Mucilloid 1 pack 04/18/18 09:00 04/23/18 08:45 Metamucil Fiber Sf Pkt NG/OG Not Given DAILY [facility] Pyridostigmine [place] 60 mg 04/20/18 08:00 04/24/18 04:54 Mestinon PO 60 mg Q4HR [facility] Administration Sertraline HCl 100 mg 04/21/18 18:00 04/23/18 08:42 Zoloft PO 100 mg DAILY G[facility]I Administration Sodium Chloride 2 ml 03/31/18 21:00 04/23/18 20:21 Ns Flush IV.FLUSH 2 ml BID [facility]I Administration Sodium Chloride 2 ml 03/31/18 17:02 Ns Flush IV.FLUSH PRN PRN FLUSH AFTER USING IV ACCESS Sodium Chloride 0 ml 04/11/18 09:00 04/23/18 08:47 Ns Flush IV.FLUSH Not Given DAILY [facility]I Objective Remarks: Abd:soft,nd, slight SP tenderness Lehman with some hematuria on slow CBI-clearing 04/23 Abd:soft,nt,nd Lehman: few clots irrigated. Urine clearing on CBI. 04/24 Abd:soft,nt,nd Lehman with some blood; on CBI Assessment and Plan - Plan 67 y.o male with onset of gross hematuria Continue lehman drainage and CBI B&O suppository for bladder spasms. 04/21 67 y.o male with gross hematuria of unclear etiology. Possibly secondary to trauma and anitcoagulation therapy. CT scan was unremarable to any bleeding lesion. Maintain CBI and irrigate lehman manually at bedside Consider transfusion for Hgb of 7.8. If bleeding does persists will need cystoscopy. 04/24 67 y.o male with gross hematuria of unclear etiology. Possibly secondary to trauma and anitcoagulation therapy. CT scan was unremarable to any bleeding lesion. Will start Amicar CBI today Check labs If bleeding does persists will need cystoscopy this week
--- NOTE | 2018-04-24 09:54 | P.PNNEU ---
Subjective Active Medications: Active Medications Acetaminophen (Tylenol) 650 mg PO Q6H PRN PRN Reason: Temp > 100.4 Last Admin: 04/16/18 21:02 Dose: 650 mg Albuterol (Albuterol Neb (Prn)) 2.5 mg NEB Q2HR NEB PRN PRN Reason: DYSPNEA Artificial Tears (Tears Naturale Opth Drops) 1 drop EACH EYE Q8H [facility] Last Admin: 04/24/18 00:52 Dose: 1 drop Aspirin (Aspirin Chew) 81 mg PO DAILY [facility] Last Admin: 04/19/18 08:01 Dose: 81 mg Belladonna Alkaloids/Opium (B & O Supp) 60 mg RECTAL Q6HR PRN PRN Reason: bladder spasms Chlorhexidine Gluconate (Peridex 0.12% Oral Kit) 15 ml OROPHARYNG BID@0800, 1999 [facility] Last Admin: 04/23/18 20:21 Dose: 15 ml Sodium Chloride 3,000 ml/ (Aminocaproic Acid 3,000 mg) 0 ml IRRIGATION Q24H [facility] Enoxaparin Sodium (Lovenox Inj) 40 mg SQ DAILY [facility] Last Admin: 04/19/18 08:01 Dose: 40 mg Furosemide (Lasix Inj) 40 mg IV.PUSH DAILY [facility] Last Admin: 04/23/18 08:45 Dose: 40 mg Hydralazine HCl (Apresoline) 50 mg PO Q8HR [facility] Last Admin: 04/24/18 06:41 Dose: 50 mg Magnesium Sulfate 4 gm/ Sodium (Chloride) 100 mls @ 50 mls/hr IV.SIG UNSCH PRN PRN Reason: For Magnesium 0.9 - 1.1 mg/dL Potassium Chloride (Kcl 40 Meq Premix Inj) 40 meq in 100 mls @ 25 mls/hr IV.SIG Q2H PRN PRN Reason: For Potassium 2.8 - 3.2 mEq/L Last Infusion: 04/15/18 06:37 Dose: Infused Potassium Chloride (Kcl 20 Meq Premix Inj) 20 meq in 100 mls @ 50 mls/hr IV.SIG Q2H PRN PRN Reason: For Potassium 3.3 - 3.5 mEq/L Last Admin: 04/22/18 08:49 Dose: 50 mls/hr Potassium Chloride (Kcl 40 Meq Premix Inj) 40 meq in 100 mls @ 25 mls/hr IV.SIG UNSCH PRN PRN Reason: For Potassium 3.3 - 3.5 mEq/L Last Infusion: 04/12/18 10:35 Dose: Infused Potassium Chloride (Kcl 20 Meq Premix Inj) 20 meq in 100 mls @ 50 mls/hr IV.SIG Q2H PRN PRN Reason: For Potassium 2.8 - 3.2 mEq/L Last Admin: 04/20/18 06:05 Dose: 50 mls/hr Potassium Phosphate 30 mmol/ (Sodium Chloride) 260 mls @ 42 mls/hr IV.SIG UNSCH PRN PRN Reason: SEE LABEL COMMENTS Last Infusion: 04/19/18 15:35 Dose: Infused Magnesium Sulfate 2 gm/ Sodium (Chloride) 100 mls @ 50 mls/hr IV.SIG UNSCH PRN PRN Reason: For Magnesium 1.2 - 1.6 mg/dL Sodium Phosphate 30 mmol/ (Sodium Chloride) 260 mls @ 42 mls/hr IV.SIG UNSCH PRN PRN Reason: For Phosphorus < 2.5 mg/dL Albumin Human (Flexbumin 25% Inj) 100 mls @ 60 mls/hr IV.SIG Q12H [facility] Last Admin: 04/24/18 06:41 Dose: 60 mls/hr Labetalol HCl (Trandate Inj) 20 mg IV.PUSH Q1H PRN PRN Reason: SBP > 160 Last Admin: 04/21/18 13:14 Dose: 20 mg Lansoprazole (Prevacid Solutab) 30 mg NG/OG DAILY [facility] Last Admin: 04/23/18 08:42 Dose: 30 mg Levothyroxine Sodium (Synthroid) 125 mcg PO DAILY@0600 [facility] Last Admin: 04/24/18 06:41 Dose: 125 mcg Magnesium Oxide (Mag-Ox) 800 mg PO UNSCH PRN PRN Reason: For Magnesium 1.2 - 1.6 mg/dL Magnesium Oxide (Mag-Ox) 400 mg PO BID@1100,2300 [facility] Last Admin: 04/23/18 22:59 Dose: 400 mg Miscellaneous (Pill Splitter) 1 each OTHER UNSCH PRN PRN Reason: SEE LABEL COMMENTS Miscellaneous Medication () 1 each OROPHARYNG 0000,0400,1200,1600 [facility] Last Admin: 04/24/18 04:54 Dose: 1 each Ondansetron HCl (Zofran Inj) 4 mg IV.PUSH Q4H PRN PRN Reason: NAUSEA OR VOMITING Oxycodone HCl (Roxicodone Intensol Liq) 5 mg PO Q4H PRN PRN Reason: pain 4-6 Last Admin: 04/16/18 13:36 Dose: 5 mg Oxymetazoline HCl (Afrin 0.05% Nasal [place]) 2 spray NASAL Q12H PRN PRN Reason: Bronchoscopy Polyethylene Glycol (Miralax) 17 gm PO BID [facility] Last Admin: 04/15/18 21:00 Dose: Not Given Potassium Chloride (Kcl Liq) 40 meq PO UNSCH PRN PRN Reason: Potassium level 3.3-3.5 mEq/L Last Admin: 04/17/18 17:38 Dose: 40 meq Potassium Chloride (Kcl Liq) 40 meq PO UNSCH PRN PRN Reason: Potassium level 3.3-3.5 mEq/L Last Admin: 04/16/18 14:59 Dose: 40 meq Potassium Chloride (Kcl Liq) 50 meq PO BID [facility] Last Admin: 04/23/18 20:21 Dose: 50 meq Potassium Phosphate (K-Phos Original) 2,000 mg PO Q4H PRN PRN Reason: Phosphorus Less Than 2.5 mg/dL Last Admin: 04/17/18 10:48 Dose: 2,000 mg Potassium Phosphate (K-Phos Original) 2,000 mg PO UNSCH PRN PRN Reason: SEE LABEL COMMENTS Pravastatin Sodium (Pravachol) 40 mg PO HS [facility] Last Admin: 04/23/18 20:20 Dose: 40 mg Psyllium Hydrophilic Mucilloid (Metamucil Fiber Sf Pkt) 1 pack NG/OG DAILY [facility] Last Admin: 04/23/18 08:45 Dose: Not Given Pyridostigmine [place] (Mestinon) 60 mg PO Q4HR [facility] Last Admin: 04/24/18 04:54 Dose: 60 mg Sertraline HCl (Zoloft) 100 mg PO DAILY [facility] Last Admin: 04/23/18 08:42 Dose: 100 mg Sodium Chloride (Ns Flush) 2 ml IV.FLUSH BID [facility] Last Admin: 04/23/18 20:21 Dose: 2 ml Sodium Chloride (Ns Flush) 2 ml IV.FLUSH PRN PRN PRN Reason: FLUSH AFTER USING IV ACCESS Sodium Chloride (Ns Flush) 0 ml IV.FLUSH DAILY [facility] Last Admin: 04/23/18 08:47 Dose: Not Given Allergies/Adverse Reactions: Allergies Allergy/AdvReac Type Severity Reaction Status Date / Time Sulfa (Sulfonamide Allergy Severe Nausea Verified 02/15/18 05:02 Antibiotics) Physical Exam Vital signs: Vital Signs 04/23/18 10:00 04/23/18 10:01 04/23/18 11:00 Temperature Pulse Rate 96 H 89 91 H Respiratory Rate Blood Pressure 148/74 H Pulse Oximetry 99 99 98 04/23/18 11:01 04/23/18 11:13 04/23/18 12:00 Temperature Pulse Rate 87 93 H 101 H Respiratory Rate 15 Blood Pressure 152/90 H Pulse Oximetry 97 99 98 04/23/18 12:01 04/23/18 12:48 04/23/18 13:00 Temperature 98.6 F Pulse Rate 99 H 95 H 91 H Respiratory Rate Blood Pressure 185/74 H 148/81 H Pulse Oximetry 98 99 99 04/23/18 13:01 04/23/18 13:51 04/23/18 13:58 Temperature Pulse Rate 88 76 Respiratory Rate Blood Pressure 145/74 H 167/83 H Pulse Oximetry 99 99 99 04/23/18 14:01 04/23/18 14:17 04/23/18 15:00 Temperature Pulse Rate 105 H 97 H Respiratory Rate Blood Pressure 172/92 H Pulse Oximetry 98 98 04/23/18 15:02 04/23/18 16:00 04/23/18 16:04 Temperature 97.8 F 98.6 F Pulse Rate 103 H 104 H Respiratory Rate 18 Blood Pressure 120/76 120/76 Pulse Oximetry 98 99 99 04/23/18 17:00 04/23/18 18:00 04/23/18 18:32 Temperature Pulse Rate 88 88 86 Respiratory Rate Blood Pressure 162/76 H Pulse Oximetry 97 92 L 94 L 04/23/18 19:00 04/23/18 19:31 04/23/18 20:00 Temperature 98.6 F Pulse Rate 86 79 Respiratory Rate 19 Blood Pressure Pulse Oximetry 97 96 98 04/23/18 20:41 04/23/18 21:00 04/23/18 22:00 Temperature Pulse Rate 95 H 91 H 77 Respiratory Rate Blood Pressure 140/68 Pulse Oximetry 95 95 98 04/23/18 23:00 04/23/18 23:11 04/24/18 00:00 Temperature Pulse Rate 93 H 79 77 Respiratory Rate Blood Pressure 145/66 H Pulse Oximetry 98 99 98 04/24/18 00:41 04/24/18 01:00 04/24/18 01:16 Temperature Pulse Rate 80 98 H Respiratory Rate 15 Blood Pressure 142/66 H Pulse Oximetry 98 98 96 04/24/18 02:00 04/24/18 03:00 04/24/18 03:13 Temperature Pulse Rate 77 78 Respiratory Rate 15 Blood Pressure Pulse Oximetry 97 96 98 04/24/18 03:22 04/24/18 04:00 04/24/18 05:00 Temperature 98.7 F Pulse Rate 75 91 H 79 Respiratory Rate 16 Blood Pressure 120/78 Pulse Oximetry 98 95 96 04/24/18 06:00 04/24/18 06:45 04/24/18 08:34 Temperature Pulse Rate 90 76 Respiratory Rate Blood Pressure 150/78 H Pulse Oximetry 95 96 94 L Intake & Output 04/23/18 04/24/18 04/24/18 18:59 06:59 18:59 Intake Total 1082 / 1082 887 / 887 Output Total 3260 / 3260 1745 / 1745 Balance -2178 / -2178 -858 / -858 Weight 77 kg Intake: IV 100 / 100 100 / 100 Flexbumin 25% Inj 100 ML @ 60 100 / 100 100 / 100 mls/hr IV.SIG Q12H [facility] Rx#: [id number] Tube Feeding 462 / 462 607 / 607 Tube Irrigant 120 / 120 180 / 180 Water Bolus Amount 400 / 400 Output: Stool 20 / 20 Urine Amount (Catheter) 3250 / 3250 1725 / 1725 3-way Urethral 3250 / 3250 1725 / 1725 Other: Bladder Irrigation Fluid - Amount Instilled 3-way Urethral 8,100 9,000 Bladder Irrigation Fluid - Amount Drained 3-way Urethral 11,350 10,725 Date of Last Bowel Movement 04/23/18 04/24/18 Narrative: awake moves awell nad not moving diaphragm well on mestinon - Urinary Catheter Management Indwelling Urethral Catheter Cath placed during this visit: yes, but has since been removed by the nurse Reason for continuing: Continue criteria not met Insertion date: 04/10/18 Insertion time: 01:45 Removal date: 04/15/18 Removal time: 17:05 Condom Cath placed during this visit: no 3-way Urethral Cath placed during this visit: no Objective Laboratory Results - last 24 hr 04/23/18 08:15 Sodium 141 Potassium 3.7 Chloride 108 H Carbon Dioxide 27.9 Anion Gap 5 BUN 15 Creatinine 0.57 L Estimated GFR Greater than 89 Random Glucose 107 H Calcium 7.9 L Phosphorus 2.0 L Magnesium 2.4 Prealbumin 21 Review/Management - Review/Management Plan: Encephalopathy Likely secondary to respiratory failure, hypoxia, metabolic etiology Respiratory failure - Lactic acidosis - Hyperammonemia - Leukocytosis - Neuro checks Q1h - MRI brain and head CT scan was unremarkable for an acute intracranial abnormality - Will reassess after patient he is off sedation. - CSF analysis is unremarkable, pending culture and HSV PCR results - EEG with evidence of encephalopathy, no epileptiform discharges or electrographic seizure activity - I met with family members and discussed the current neurologic status - There is no indication to start AEDs. -DVT prophylaxis - GI prophylaxis - Neurology will follow up. - Dr. Farias will follow up on Tuesday04/03/2018. - Please call for questions 04/03/18 met enceph mri LP eeg neg labs neg my hope is off sedatives he should do fine no hx dementia nor pd acc to daughters labs ordered few more 04/04/18 much better ok to dc sedatives neurowise recheck abg still some jerking can recheck eeg when off vent I spoke with Dr Ortiz of pulmonary. 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 According to the pt and family this developed a week after the cervical spine surgery. Myasthenia labs are negative , which does not absolutely r/o myasthenia gravis. He does not have ptosis or other bulbar sx of MG. Guillain [place] can affect respiration and phrenic nerves , but he has no limb weakness and DTRs are intact. Will discuss with Dr Farias possible empiric trial of ivig for possible atypical MG with normal labs. Will send serum JUANJO to be sure not IgA deficient before considering ivig 04/19/18 strength and dtr nl i dw dr puckett and family will try mestinon although unlikely mg 04/20/18 inc mestinon to 60 mg and watch breathing 04/21/18 no change on mestinon sniff test today will check iga level in case we do ivig not confident will help though really no clinical sign of mg nor aidp 04/24/18 not any better on mestinon will breezy menendez consider ivig but really i do not think mg and a variant odd of gbs unlikley with intact reflexes we have some case report of bilat phrenic nerve damage after ant c spine surgery
[2018-04-24] MEDS: Sertraline 100 MG Tablet PO SCH (09:59)
[2018-04-24] MEDS: Potassium Chloride Liq 20 MEQ/15 ML UDC PO SCH ×2 (10:00→20:59)
[2018-04-24] MEDS: Chlorhexidine 0.12% Oral Kit 15 ML UDC OROPHARYNG SCH ×2 (10:02→20:59)
[2018-04-24] MEDS: Psyllium Husk SF 3.4 GM in 5.8 GM Packet NG/OG SCH (10:02)
[2018-04-24] MEDS: Sodium Chloride 0.9% Irr Bag 3,000 ML, Aminocaproic Acid Inj 3,000 MG IRRIGATION SCH ×2 (11:04)
[2018-04-24] MEDS: Magnesium Oxide 400 MG Tablet PO SCH (11:50)
[2018-04-24 11:53] LABS: Hematocrit 22.9 % (39.0-51.0); Hemoglobin 7.6 gm/dL (13.0-17.0); Mean Corpuscular Hemoglobin 31.1 pg (27.0-34.0); Mean Corpuscular Volume 94.3 fL (80.0-100.0); Mean Platelet Volume 10.1 fL (7.0-11.0); Platelet Count 230 th/mm3 (150-450); Red Blood Count 2.43 mil/mm3 (4.50-5.90); Red Cell Distribution Width 15.9 % (11.6-17.2); White Blood Count 14.8 th/mm3 (4.0-11.0)
[2018-04-24] MEDS: Labetalol HCl Inj 20 MG/4 ML Vial IV.PUSH PRN (11:57)
[2018-04-24] MEDS ORDERED: Propofol Inj 500 MG/50 ML Vial ONE (12:18)
[2018-04-24 12:20] LABS: Anion Gap 7 meq/L (5-15); Blood Urea Nitrogen 17 mg/dL (7-18); Calcium 8.8 mg/dL (8.5-10.1); Carbon Dioxide 28.1 meq/L (21.0-32.0); Chloride 104 meq/L (98-107); Glomerular Filtration Rate Greater Than 89 mL/min (>89); Glucose,Random 112 mg/dL (74-106); Potassium 3.8 meq/L (3.5-5.1); Sodium 139 meq/L (136-145)
[2018-04-24] MEDS ORDERED: Gadobutrol PF 10 MMOL/10 ML Vial (for RAD) IV.SIG ONE (13:46)
--- NOTE | 2018-04-24 14:28 | MR ---
EXAM DATE: 04/24/2018 1:55 PM EST AGE/SEX: 67 years / Male INDICATIONS: Altered mental status. CLINICAL DATA: This is the patient's initial encounter. Patient reports that signs and symptoms have been present for 1 day and indicates a pain score of Nonresponsive. MEDICAL/SURGICAL HISTORY: Hypertension. NG tube. . Hernia sx. COMPARISON: No prior exams available for comparison. TECHNIQUE: Multiplanar, multisequence examination of the brain was performed without and with 8 ml Ga davist (gadobutrol) contrast as a single exam dose. FINDINGS: Cerebrum: The ventricles are normal for age. No evidence of midline shift, mass lesion, hemorrhage or acute infarction. No extraaxial fluid collections are seen. The pituitary gland and suprasellar cistern are normal in configuration. White Matter: No significant signal abnormalities are seen in the white matter. Posterior Fossa: The cerebellum and brainstem are intact. The 4th ventricle is midline. The cerebel lopontine angle is unremarkable. The cerebellar tonsils are normal in position. Diffusion Imaging: No focal areas of restricted diffusion are seen. No evidence of acute infarction . Extracranial: The visualized portions of the orbits and paranasal sinuses are unremarkable. Post Contrast: No abnormal areas of parenchymal or dural enhancement. No evidence of blood-brain ba rrier breakdown. CONCLUSION: 1. Negative MRI of the brain without and with contrast Electronically signed by: Jacky Damon MD Board Certified Radiologist 04/24/2018 2:26 PM EST
--- NOTE | 2018-04-24 14:33 | MR ---
EXAM DATE: 04/24/2018 1:55 PM EST AGE/SEX: 67 years / Male INDICATIONS: Myelopathy. CLINICAL DATA: This is the patient's initial encounter. Patient reports that signs and symptoms have been present for 1 week and indicates a pain score of Nonresponsive. MEDICAL/SURGICAL HISTORY: Hypertension. Fusion, cervical. Hernia sx. COMPARISON: No prior exams available for comparison. TECHNIQUE: Multiplanar, multisequence MRI examination of the cervical spine was performed without an d with 8 ml Gadavist (gadobutrol) contrast as a single exam dose. FINDINGS: Vertebrae: Normal vertebral body height. Homogeneous marrow signal. Status post anterior cervical f usion at C5-C6. Alignment: Normal. Cord: Subtle increase in the signal in the cervical cord beginning at the C3-C4 level extending dist ally. There is no enhancement. Post Fossa: The cerebellar tonsils are normal in position. Post Contrast: No abnormal areas of enhancement are seen. C2-C3: The thecal sac has a normal configuration. There is no evidence of disc herniation or spinal canal stenosis. The neural foramina are patent bilaterally. C3-C4: The thecal sac has a normal configuration. There is no evidence of disc herniation or spinal canal stenosis. The neural foramina are patent bilaterally. C4-C5: The thecal sac has a normal configuration. There is no evidence of disc herniation or spinal canal stenosis. The neural foramina are patent bilaterally. C5-C6: Fusion at C5-C6 with minimal susceptibility artifact. There is no significant spinal stenosis . C6-C7: The thecal sac has a normal configuration. There is no evidence of disc herniation or spinal canal stenosis. The neural foramina are patent bilaterally. C7-T1: No epidural impressions seen. CONCLUSION: 1. Subtle increased signal in the cord beginning at the C4 level extending distally. There is no abn ormal contrast enhancement. 2. This is seen best on the sagittal IR image set. Electronically signed by: Jacky Damon MD Board Certified Radiologist 04/24/2018 2:31 PM EST
--- NOTE | 2018-04-24 17:57 | P.PNID ---
Subjective Remarks: pt is afebrile WBC keep going up - 14 K no fever + increased trach secretions + diarrhea Antibiotics: NONE Allergies/Adverse Reactions: Allergies Sulfa (Sulfonamide Antibiotics) Allergy (Severe, Verified 02/15/18 05:02) Nausea also flu like symptoms Objective Vital Signs 04/23/18 18:00 04/23/18 18:32 04/23/18 19:00 Temperature Pulse Rate 88 86 86 Respiratory Rate Blood Pressure 162/76 H Pulse Oximetry 92 L 94 L 97 04/23/18 19:31 04/23/18 20:00 04/23/18 20:41 Temperature 98.6 F Pulse Rate 79 95 H Respiratory Rate 19 Blood Pressure 140/68 Pulse Oximetry 96 98 95 04/23/18 21:00 04/23/18 22:00 04/23/18 23:00 Temperature Pulse Rate 91 H 77 93 H Respiratory Rate Blood Pressure Pulse Oximetry 95 98 98 04/23/18 23:11 04/24/18 00:00 04/24/18 00:41 Temperature Pulse Rate 79 77 Respiratory Rate 15 Blood Pressure 145/66 H Pulse Oximetry 99 98 98 04/24/18 01:00 04/24/18 01:16 04/24/18 02:00 Temperature Pulse Rate 80 98 H 77 Respiratory Rate Blood Pressure 142/66 H Pulse Oximetry 98 96 97 04/24/18 03:00 04/24/18 03:13 04/24/18 03:22 Temperature Pulse Rate 78 75 Respiratory Rate 15 Blood Pressure 120/78 Pulse Oximetry 96 98 98 04/24/18 04:00 04/24/18 05:00 04/24/18 06:00 Temperature 98.7 F Pulse Rate 91 H 79 90 Respiratory Rate 16 Blood Pressure Pulse Oximetry 95 96 95 04/24/18 06:45 04/24/18 07:00 04/24/18 08:00 Temperature 98.9 F Pulse Rate 76 90 87 Respiratory Rate 18 Blood Pressure 150/78 H 162/84 H Pulse Oximetry 96 96 96 04/24/18 08:34 04/24/18 08:41 04/24/18 08:45 Temperature Pulse Rate 99 H Respiratory Rate 21 Blood Pressure 162/84 H Pulse Oximetry 94 L 94 L 04/24/18 09:00 04/24/18 09:30 04/24/18 10:00 Temperature Pulse Rate 85 81 101 H Respiratory Rate Blood Pressure 150/73 H 151/74 H 176/84 H Pulse Oximetry 96 97 96 04/24/18 10:30 04/24/18 11:00 04/24/18 11:12 Temperature Pulse Rate 95 H 84 Respiratory Rate 19 Blood Pressure 170/85 H 153/81 H Pulse Oximetry 96 96 97 04/24/18 11:30 04/24/18 12:00 04/24/18 12:30 Temperature 98.7 F Pulse Rate 99 H 76 72 Respiratory Rate 21 20 Blood Pressure 184/83 H 113/63 147/73 H Pulse Oximetry 96 95 97 04/24/18 12:41 04/24/18 13:00 04/24/18 14:01 Temperature Pulse Rate Respiratory Rate Blood Pressure 125/70 65/44 L Pulse Oximetry 97 100 04/24/18 14:02 04/24/18 14:03 04/24/18 14:05 Temperature Pulse Rate Respiratory Rate Blood Pressure 69/43 L 74/40 L 74/45 L Pulse Oximetry 100 98 99 04/24/18 14:13 04/24/18 14:17 04/24/18 14:48 Temperature Pulse Rate 75 Respiratory Rate Blood Pressure 82/49 L 112/63 Pulse Oximetry 100 100 98 04/24/18 15:00 04/24/18 15:28 04/24/18 15:30 Temperature Pulse Rate 69 71 Respiratory Rate 15 Blood Pressure 106/59 L 119/59 L Pulse Oximetry 100 99 99 04/24/18 16:00 Temperature 98.4 F Pulse Rate 75 Respiratory Rate 15 Blood Pressure 112/64 Pulse Oximetry 96 Intake & Output 04/23/18 04/24/18 04/24/18 18:59 06:59 18:59 Intake Total 1082 / 1082 887 / 887 300 / 300 Output Total 3260 / 3260 1745 / 1745 Balance -2178 / -2178 -858 / -858 300 / 300 Weight 77 kg Intake: IV 100 / 100 100 / 100 300 / 300 Flexbumin 25% Inj 100 ML @ 60 100 / 100 100 / 100 100 / 100 mls/hr IV.SIG Q12H GIGI Rx#: [id number] KCl 20 mEq Premix Inj 20 meq In 200 / 200 100 ml @ 50 mls/hr IV.SIG Q2H PRN Rx#:[id number] Tube Feeding 462 / 462 607 / 607 Tube Irrigant 120 / 120 180 / 180 Water Bolus Amount 400 / 400 Output: Stool Urine Amount (Catheter) 3250 / 3250 1725 / 1725 3-way Urethral 3250 / 3250 1725 / 1725 Other: Bladder Irrigation Fluid - Amount Instilled 3-way Urethral 8,100 9,000 Bladder Irrigation Fluid - Amount Drained 3-way Urethral 11,350 10,725 Date of Last Bowel Movement 04/23/18 04/24/18 04/23/18 Lab - Hematology Results 04/24/18 10:50 WBC 14.8 H RBC 2.43 L Hgb 7.6 L Hct 22.9 L MCV 94.3 MCH 31.1 MCHC 33.0 RDW 15.9 Plt Count 230 MPV 10.1 Lab - Chemistry Results 04/22/18 04/22/18 04/23/18 19:30 19:30 08:15 Sodium 141 Potassium 3.3 L 3.7 Chloride 108 H Carbon Dioxide 27.9 Anion Gap 5 BUN 15 Creatinine 0.57 L Estimated GFR Greater than 89 Random Glucose 107 H Calcium 7.9 L Phosphorus 2.0 L Magnesium 2.4 Total Protein (PEP) 5.5 L Prealbumin 21 04/24/18 10:50 Sodium 139 Potassium 3.8 Chloride 104 Carbon Dioxide 28.1 Anion Gap 7 BUN 17 Creatinine 0.61 Estimated GFR Greater than 89 Random Glucose 112 H Calcium 8.8 D Phosphorus Magnesium Total Protein (PEP) Prealbumin Imaging: ITS Impressions Head CT 03/31/18 12:16 CONCLUSION: 1. Negative CT Head non contrast. . Chest CTA 03/31/18 14:39 CONCLUSION: 1. Bibasilar atelectatic changes, left greater than right. No confluent infiltrate. 2. No pulmonary embolus. 3. Atherosclerotic calcification of the coronary arteries. Abdomen/Bladder Ultrasound 04/10/18 08:05 CONCLUSION: 1. Probable complex cyst coming off the right lower pole kidney appears smaller since 2017 CT examination of the abdomen. Chest CT 04/11/18 00:00 CONCLUSION: 1. Patchy nodular opacities in the right lower lobe coalescing posteriorly most consistent with an infectious etiology such as bronchopneumonia. 2. Near complete left lower lobe collapse and dense airspace consolidation in the posterior right lower lobe. Differential considerations include aspiration. 3. Coronary artery cavitations. Abdomen X-Ray 04/15/18 05:07 CONCLUSION: Dobbhoff tube tip now seen in the stomach. Gallbladder Ultrasound 04/16/18 00:00 CONCLUSION: 1. Minimal prominence of the gallbladder wall. No pericholecystic fluid is seen no stones are evident. 2. Increased echogenicity of the liver suggesting fatty infiltration. Abdomen/Pelvis CT 04/19/18 10:15 CONCLUSION: 1. Tiny 1 mm calculus now noted in the posterior left side of the bladder which could represent a small bladder calculi or distal ureteral calculus. 2. The left kidney appears unremarkable and there is no hydronephrosis. The ureters appear within normal limits. 3. Single tiny nonobstructing right renal calculus without change. The previously noted complex cystic lesion in the lower pole is faintly visualized. 4. Nonspecific bowel gas pattern which may represent an ileus. Chest Fluoroscopy 04/21/18 00:00 CONCLUSION: No diaphragmatic motion on either side. Respiratory pattern suspicious for high neurological deficit above C5. Repeat MRI of the brain, cervical and without and with contrast while ventilated to exclude motion artifact would be very helpful. Chest X-Ray 04/21/18 00:00 CONCLUSION: 1. No significant interval change. 2. Stable tracheostomy and nasoenteric feeding catheter. 3. Stable left basilar airspace disease. Cervical Spine MRI 04/24/18 00:00 CONCLUSION: 1. Subtle increased signal in the cord beginning at the C4 level extending distally. There is no abnormal contrast enhancement. 2. This is seen best on the sagittal IR image set. Head MRI 04/24/18 00:00 CONCLUSION: 1. Negative MRI of the brain without and with contrast Physical Exam: GENERAL: NAD awake, unint'd SKIN: Warm and dry. NECK: Trach in place, + some secretons. No JVD. CARDIOVASCULAR: Regular , rate, rhtyms RESPIRATORY: No accessory muscle use. Clear to auscultation. Breath sounds equal, decreased bilaterally. GASTROINTESTINAL: Abdomen soft, non-tender, nondistended. Hepatic and splenic margins not palpable. : lehman in place, urine is lighly pink and clear MUSCULOSKELETAL: Extremities without clubbing, cyanosis, NEUROLOGICAL: awake, alert PSYCHIATRIC: calm Assessment and Plan - Plan C spine fusion Hypercapnia difficulty breathing developped after surgery Kleb oxytoca PNA signs of PNA resolved cliniclaly and radiologically Acute VDRF, improving fever, low grade: resolved No e/o [employer] infx New leukocytosis - resolved ARF - resolved Aspiration PNA today's CXR Minimal bibasilar densities, sp abx : completed 04/19 Sepsis, improving abx associated diarrhea C.diff negative 04/15 Gu bleeding B/l phernic nerve paralysis: post viral GBS will not present with islated diaphragm weakness but also will see other muscel groups involvemtn low risk for Lyme dz exposure follow off abx follow WBC follw SPEP, UPEP c.diff sputum clx CXR dw RN
--- NOTE | 2018-04-24 18:29 | P.PNCC ---
Subjective Subjective Remarks/Hospital Course: This 67-year-old came into the emergency room today with his and daughter. On 02/13/2018, he had a microdiscectomy, C5-C6, by Dr. Schwarz. He was discharged home the next day. A few days after, he had not been feeling well, short of breath, disoriented, generally weak, symptoms were getting worse, disorientation was worse. He was referred to emergency department by his primary care physician for an evaluation. In the ED he was found to be in severe hypercarbic respiratory acidosis and was intubated by ED attending. 04/01: CO2 retention corrected. Remains mildly alkalotic due to chronic CO2 elevation. PH normalized. Still requiring vasopressor therapy with norepinephrine. Broad-spectrum antibiotic coverage started. Lumbar puncture performed with opening pressure 20 and crystal-clear fluid, sent for cell counts , chemistries and culture. HSV included. One extra tube sent for future studies if necessary. Ammonia level 71 - repeat daily. 04/02: CSF appears benign. Repeat ammonia level normal. Gamma GT normal. Cardiac echo estimated of 45% ejection fraction requires a little additional investigation -patient has been chronically short of breath for several weeks now. Leukocytosis and left shift persists. Gram-positive cocci and white cells seen in sputum. This man clearly became acutely and critically ill - exact cause still eludes us. 04/03: Leukocytosis improved. Remains quite rigid when stimulated. Continues to move 4 limbs with purpose and follows commands with 4 limbs. Sputum demonstrates white blood cells and gram-negative rods. 04/04: Improved color and perfusion. Extubated yesterday afternoon but failed after about 45 minutes -developed somnolence then obtundation, appeared to be having difficulty taking a breath, concern for vocal cord dysfunction. On reintubation the cord edges were irregular but otherwise normal in appearance. I could not assess cord function as patient was not alert enough to cooperate with commands. We will definitely pursue possibilities of vocal cord dysfunction and or phrenic nerve paralysis once we get him extubated. Ideally, a sniff test under fluoroscopy would demonstrate any paradoxical diaphragm motion. 04/05: Afebrile. Neurologically appears intact. Daughter concerned about "appears distant" however on 40 mcg/kg/min of propofol and 250 mcg an hour fentanyl. No bowel movement since admission. Tube feeding only at 20 cc an hour. 04/06: Afebrile. Neurologically intact. Following commands.. Positive BM. Labile blood pressures yesterday. Replace potassium currently. 04/07: Patient writing notes today. Chest x-ray clear. Elevated left diaphragm , probably dysfunctional. Continued encephalopathy and generalized weakness chris very concerning. We will try Aminophyllin today to see if we can get some diaphragm and central nervous system stimulation. 04/08: Started on theophylline yesterday. Check level in a.m. Will attempt PSV trial today. Noted pulmonology requests possible T-bar with ABG when appropriate. Afebrile. 04/09: T-max 100. theophylline currently 3.7. Currently on CPAP trials. 02/18. 45%. Check ABG at 10 today. Desaturated yesterday currently back at 40%. 04/10: Resting in bed. Episode of nausea overnight. Negative workup. Evaluated positive BM 04/08. Patient more agitated overnight. Propofol discontinued due to hypotension. Currently on fentanyl drip. Theophylline. Creatinine currently 2.0 we will consult nephrology. Discontinue lisinopril. Receiving one half normal saline bolus currently. 04/11: T-max 101.1. Increasing O2 records.Increasing white blood cell count. For the cuff is overinflated to palpate the vocal cords. Leak by examination. Will change ET tube in place central line today. Empirically start antibiotics for aspiration. Not tolerating tube feeds and currently to low inner wall suction. Check KUB after ET tube exchange and central line placement. Restart metoclopramide. Positive BMs. 04/12: Yesterday, CT thorax revealed collapsed left lower lung. Status post bronchoscopy with reinflation of lung. Better saturations today. Continues with small and large bowel colonic distention. Right: 11 cm. GI is following. Might need decompression. Current orogastric tube to low intermittent wall suction. 04/13: Improved small and large bowel colonic distention. Down to 8 cm long family discussion. We will perform percutaneous tracheostomy and PEG tube as well. Request second neurological opinion. In better spirits today. 04/14: no changes. awakens and follows commands. plan for trach today. 22: s/p trach yesterday. awake and alert. calm. looks more comfortable than yesterday. did not tolerate PRVC today, but tolerates PSV with high support (24/ 5/35%). SUBJECTIVE: 2/3: complaining of new RUQ pain. ?+Fry's sign. labs wnl today. no other complaints. denies nausea or vomiting. still has diarrhea, but this is slowing down after holding bowel regimen. ROS otherwise negative. 04/17: Gallbladder ultrasound appears benign. No new complaints. 04/18: Remains on the vent. Tolerated approximately 7 hours of CPAP yesterday with high PS. Still complaining of diarrhea. Most likely induced by tube feeds. Potassium remains low at 2.7. Potassium replacement in addition to protocol given followed by KCl 20 meq twice daily scheduled. Probably GI loss 04/19: Clinically improving tolerating CPAP better today. Pressure support reduced to 12. Near normal strength normal reflexes normal sensation. Continue aggressive potassium and phosphorus replacement. 04/20: Irrigation Wood placed and bladder for removal of large blood clots. Will delay bedside sniff test until urinary problems clear up. Anticipate indirect laryngoscopy to nasal approach soon. 04/21: Bleeding from Wood catheter markedly reduced, just pink fluid now. Awake and alert this morning. We will attempt sniff test this morning under fluoroscopy. Update: Sniff test performed under fluoroscopy by Dr. Ritesh Damon shows no diaphragmatic function on either left or right side. The patient participated well with the testing clearly used his intercostal and shoulder muscles vigorously. This pattern is clearly more consistent with a neurological illness and pretty much eliminates the likelihood of traumatic etiology. 04/22: Dr. Ritesh Damon finds and recommends: No diaphragmatic motion on either side. Respiratory pattern suspicious for high neurological deficit above C5. Repeat MRI of the brain, cervical and without and with contrast while ventilated to exclude motion artifact would be very helpful. 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 04/23: Continuing on spontaneous breathing trials with elevated pressure support. Using exaggerated accessory muscles the patient is able to breathe through relative comfort. 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 We plan to get repeat MRI brain and c-spine tomorrow - w/wo contrast per Dr. Ritesh Damon request. 04/25: Continued progress on spontaneous breathing trials but still requiring increased pressure support. We will continue to rest him at night. Continually low phosphorus is not helping muscle stamina, continue to replace aggressively. Repeat MRI of head and C-spine performed today, will review comparison to old study. Objective Vital Signs / I&O: Vital Signs 04/23/18 18:32 04/23/18 19:00 04/23/18 19:31 Temperature Pulse Rate 86 86 Respiratory Rate 19 Blood Pressure 162/76 H Pulse Oximetry 94 L 97 96 04/23/18 20:00 04/23/18 20:41 04/23/18 21:00 Temperature 98.6 F Pulse Rate 79 95 H 91 H Respiratory Rate Blood Pressure 140/68 Pulse Oximetry 98 95 95 04/23/18 22:00 04/23/18 23:00 04/23/18 23:11 Temperature Pulse Rate 77 93 H 79 Respiratory Rate Blood Pressure 145/66 H Pulse Oximetry 98 98 99 04/24/18 00:00 04/24/18 00:41 04/24/18 01:00 Temperature Pulse Rate 77 80 Respiratory Rate 15 Blood Pressure Pulse Oximetry 98 98 98 04/24/18 01:16 04/24/18 02:00 04/24/18 03:00 Temperature Pulse Rate 98 H 77 78 Respiratory Rate Blood Pressure 142/66 H Pulse Oximetry 96 97 96 04/24/18 03:13 04/24/18 03:22 04/24/18 04:00 Temperature 98.7 F Pulse Rate 75 91 H Respiratory Rate 15 16 Blood Pressure 120/78 Pulse Oximetry 98 98 95 04/24/18 05:00 04/24/18 06:00 04/24/18 06:45 Temperature Pulse Rate 79 90 76 Respiratory Rate Blood Pressure 150/78 H Pulse Oximetry 96 95 96 04/24/18 07:00 04/24/18 08:00 04/24/18 08:34 Temperature 98.9 F Pulse Rate 90 87 Respiratory Rate 18 Blood Pressure 162/84 H Pulse Oximetry 96 96 94 L 04/24/18 08:41 04/24/18 08:45 04/24/18 09:00 Temperature Pulse Rate 99 H 85 Respiratory Rate 21 Blood Pressure 162/84 H 150/73 H Pulse Oximetry 94 L 96 04/24/18 09:30 04/24/18 10:00 04/24/18 10:30 Temperature Pulse Rate 81 101 H 95 H Respiratory Rate Blood Pressure 151/74 H 176/84 H 170/85 H Pulse Oximetry 97 96 96 04/24/18 11:00 04/24/18 11:12 04/24/18 11:30 Temperature Pulse Rate 84 99 H Respiratory Rate 19 Blood Pressure 153/81 H 184/83 H Pulse Oximetry 96 97 96 04/24/18 12:00 04/24/18 12:30 04/24/18 12:41 Temperature 98.7 F Pulse Rate 76 72 Respiratory Rate 21 20 Blood Pressure 113/63 147/73 H 125/70 Pulse Oximetry 95 97 97 04/24/18 13:00 04/24/18 14:01 04/24/18 14:02 Temperature Pulse Rate Respiratory Rate Blood Pressure 65/44 L 69/43 L Pulse Oximetry 100 100 04/24/18 14:03 04/24/18 14:05 04/24/18 14:13 Temperature Pulse Rate Respiratory Rate Blood Pressure 74/40 L 74/45 L 82/49 L Pulse Oximetry 98 99 100 04/24/18 14:17 04/24/18 14:48 04/24/18 15:00 Temperature Pulse Rate 75 69 Respiratory Rate Blood Pressure 112/63 106/59 L Pulse Oximetry 100 98 100 04/24/18 15:28 04/24/18 15:30 04/24/18 16:00 Temperature 98.4 F Pulse Rate 71 75 Respiratory Rate 15 15 Blood Pressure 119/59 L 112/64 Pulse Oximetry 99 99 96 Intake & Output 04/23/18 04/24/18 04/24/18 18:59 06:59 18:59 Intake Total 1082 / 1082 887 / 887 300 / 300 Output Total 3260 / 3260 1745 / 1745 Balance -2178 / -2178 -858 / -858 300 / 300 Weight 77 kg Intake: IV 100 / 100 100 / 100 300 / 300 Flexbumin 25% Inj 100 ML @ 60 100 / 100 100 / 100 100 / 100 mls/hr IV.SIG Q12H GIGI Rx#: [id number] KCl 20 mEq Premix Inj 20 meq In 200 / 200 100 ml @ 50 mls/hr IV.SIG Q2H PRN Rx#:[id number] Tube Feeding 462 / 462 607 / 607 Tube Irrigant 120 / 120 180 / 180 Water Bolus Amount 400 / 400 Output: Stool 10 / 10 20 / 20 Urine Amount (Catheter) 3250 / 3250 1725 / 1725 3-way Urethral 3250 / 3250 1725 / 1725 Other: Bladder Irrigation Fluid - Amount Instilled 3-way Urethral 8,100 9,000 Bladder Irrigation Fluid - Amount Drained 3-way Urethral 11,350 10,725 Date of Last Bowel Movement 04/23/18 04/24/18 04/23/18 Result Diagrams: 04/24/18 10:50 04/24/18 10:50 Objective Remarks: GENERAL: 67-year-old male. Awake alert SKIN: Warm and dry. HEAD: Atraumatic. Normocephalic. EYES: Pupils equal and round. No scleral icterus. No injection or drainage. ENT: No nasal bleeding or discharge. Mucous membranes pink and moist. Dobbhoff tube in place NECK: Trachea midline. No JVD. Trach site with some minor oozing. CARDIOVASCULAR: RRR sinus. Normal S1-S2 RESPIRATORY: Lungs generally clear. Tolerating longer stretches of spontaneous breathing trials but requiring elevated pressure support. GASTROINTESTINAL: Abdomen slightly protuberant/non-tender, soft, bowel sounds active MUSCULOSKELETAL: Extremities without clubbing, cyanosis, trace to 1+ edema. No obvious deformities. NEUROLOGICAL: Follows commands and moves extremities to command. Limb strength 5 /5. No focal deficits. DTRs 3+ both knees. No clonus Assessment and Plan - Assessment and Plan Plan: Neuro/Psych: History of anterior C5/6 microdiscectomy with fusion Not requiring any continuous sedation at this time Goal of RASS 0 Evaluated by neurosurgery/Dr. Viera. No intervention planned at this time CT brain/MRI C-spine negative EEG revealed no epileptic activity Neurology following. Recommend myasthenia gravis lab. Negative to date. No evidence of GBS Left diaphragm remains elevated, suspect not functioning well. Requested second opinion for neurological status See neurology note. Overall strength clinically improving Need aggressive potassium and phosphorus replacement Wound remains well healed and clean Findings of bilateral diaphragm paralysis largely rules out operative injury. Repeat MRI of head and C-spine today for comparison to initial study. CV: Systolic heart failure unknown if acute or chronic Essential hypertension Hyperlipidemia Ejection fraction 45% on admission. Appreciate cardiac evaluation by Dr. Escobedo. No plans at this time Holding amlodipine 10 mg daily, and metoprolol tartrate 12.5 mg twice daily for hypertension Holding clonidine 0.1 twice daily and lisinopril 5 mg daily in light of hypotension/lisinopril for acute kidney injury Continue pravastatin 40 mg daily for dyslipidemia. Continue aspirin 81 mg by mouth daily. Still holding antihypertensives. Holding aspirin while bladder bleeding continues Due to increasing peripheral edema we will initiate diuretic therapy. Responding to increase diuretic therapy but need to avoid dehydration. Resp: Acute hypercapnic respiratory failure- now chronic Klebsiella oxytoca pneumonia PRVC ventilation. Ventilator bundle. Head of bed at 30 degrees Albuterol/ipratropium aerosols every 4 hours with albuterol aerosols every 2 hours as needed dyspnea Will need sniff test to assess diaphragmatic function once off vent We will consult ENT to assess vocal cords when appropriate Appreciate pulmonary input. Spontaneous breathing trial daily. 02/08 discontinued theophylline 400 mg daily acute delirium. Noted level. 04/09 3.7 Status post bronchoscopy 04/11. Thick white purulent secretions left lower lobe suction to clear. General surgery s/p percutaneous tracheostomy 04/14: Dr. Conde daily weaning of CPAP/pressure support. 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 Continue spontaneous breathing trials daily, rest on rate at night. GI: Gastroesophageal reflux disease Transaminitis Hypoalbuminemia Ileus new RUQ pain Tube feeding at 60 cc an hour days. At home on pantoprazole 40 mg daily. Currently on lansoprazole 30 mg daily holding bowel regimen for diarrhea add fiber to diet. RUQ ultrasound -benign Follow liver function tests, lipase No evidence of liver injury. Follow prealbumin weekly. : Irrigation Wood in place because of acute bladder bleeding with clots. Urine largely clear with mild billie. No clots. Endo: Hypothyroidism Hypokalemia Hypophosphatemia TSH 1.28. Continue levothyroxine 125 mg by mouth daily Sliding scale insulin if indicated to maintain euglycemia Aggressive electrolyte replacement Continue scheduled thyroxine Follow TSH Renal: Kidney injury - acute, resolved. Avoid all nephrotoxic medications Creatinine currently 1.1 Neurology consultation for evaluation this is contrast-induced nephropathy from scans 03/31. Avoid nephrotoxic medication. Lisinopril discontinued. Accurate I's and O's difficult to obtain with bladder irrigation Heme: Normocytic anemia Leukocytosis Monitor CBC daily. Follow trends per No indication for transfusion of blood proximal to this time. ID: Klebsiella oxytoca pneumonia sputum 04/01 Completed with ceftriaxone per infectious disease. Started on piperacillin/tazobactam 04/11 due to aspiration, anticipated stop date 04/19 Lumbar puncture negative. HSV negative No growth to date on other cultures aside from sputum Lung ceron remain clear No evidence of ongoing infection. FEN: Hypernatremia-resolved Hypopotassemia Hypokalemia Free water 200 cc every 6 hours. Replace electrolytes as clinically indicated per ICU electrolyte protocol. Recheck electrolytes in a.m. Increase scheduled potassium replacement 50 MEQ twice daily MSK: PT evaluate and treat up to chair daily OT evaluate and treat Access -Utilize peripheral IV. Prophylaxis -GI -lansoprazole -DVT -SCD/enoxaparin Overall impression: Remains weak and de conditioned but improving strength on spontaneous breathing trials.. We continue to work on nutrition and ventilator weaning. OOB and working with PT daily. We are presently looking at disease processes which could lead to bilateral diaphragmatic paresis.
--- NOTE | 2018-04-24 18:53 | P.PN ---
Subjective Interval history: Awake cooperative and responds to all questions. We will go for MRI today. Tolerating CPAP up to 10 hours 5 x 12 and FiO2 35%. Urine output remains good. Physical Exam Vital signs: Vital Signs 04/23/18 19:00 04/23/18 19:31 04/23/18 20:00 Temperature 98.6 F Pulse Rate 86 79 Respiratory Rate 19 Blood Pressure Pulse Oximetry 97 96 98 04/23/18 20:41 04/23/18 21:00 04/23/18 22:00 Temperature Pulse Rate 95 H 91 H 77 Respiratory Rate Blood Pressure 140/68 Pulse Oximetry 95 95 98 04/23/18 23:00 04/23/18 23:11 04/24/18 00:00 Temperature Pulse Rate 93 H 79 77 Respiratory Rate Blood Pressure 145/66 H Pulse Oximetry 98 99 98 04/24/18 00:41 04/24/18 01:00 04/24/18 01:16 Temperature Pulse Rate 80 98 H Respiratory Rate 15 Blood Pressure 142/66 H Pulse Oximetry 98 98 96 04/24/18 02:00 04/24/18 03:00 04/24/18 03:13 Temperature Pulse Rate 77 78 Respiratory Rate 15 Blood Pressure Pulse Oximetry 97 96 98 04/24/18 03:22 04/24/18 04:00 04/24/18 05:00 Temperature 98.7 F Pulse Rate 75 91 H 79 Respiratory Rate 16 Blood Pressure 120/78 Pulse Oximetry 98 95 96 04/24/18 06:00 04/24/18 06:45 04/24/18 07:00 Temperature Pulse Rate 90 76 90 Respiratory Rate Blood Pressure 150/78 H Pulse Oximetry 95 96 96 04/24/18 08:00 04/24/18 08:34 04/24/18 08:41 Temperature 98.9 F Pulse Rate 87 99 H Respiratory Rate 18 Blood Pressure 162/84 H 162/84 H Pulse Oximetry 96 94 L 94 L 04/24/18 08:45 04/24/18 09:00 04/24/18 09:30 Temperature Pulse Rate 85 81 Respiratory Rate 21 Blood Pressure 150/73 H 151/74 H Pulse Oximetry 96 97 04/24/18 10:00 04/24/18 10:30 04/24/18 11:00 Temperature Pulse Rate 101 H 95 H 84 Respiratory Rate Blood Pressure 176/84 H 170/85 H 153/81 H Pulse Oximetry 96 96 96 04/24/18 11:12 04/24/18 11:30 04/24/18 12:00 Temperature 98.7 F Pulse Rate 99 H 76 Respiratory Rate 19 21 Blood Pressure 184/83 H 113/63 Pulse Oximetry 97 96 95 04/24/18 12:30 04/24/18 12:41 04/24/18 13:00 Temperature Pulse Rate 72 Respiratory Rate 20 Blood Pressure 147/73 H 125/70 Pulse Oximetry 97 97 100 04/24/18 14:01 04/24/18 14:02 04/24/18 14:03 Temperature Pulse Rate Respiratory Rate Blood Pressure 65/44 L 69/43 L 74/40 L Pulse Oximetry 100 98 04/24/18 14:05 04/24/18 14:13 04/24/18 14:17 Temperature Pulse Rate Respiratory Rate Blood Pressure 74/45 L 82/49 L Pulse Oximetry 99 100 100 04/24/18 14:48 04/24/18 15:00 04/24/18 15:28 Temperature Pulse Rate 75 69 Respiratory Rate 15 Blood Pressure 112/63 106/59 L Pulse Oximetry 98 100 99 04/24/18 15:30 04/24/18 16:00 Temperature 98.4 F Pulse Rate 71 75 Respiratory Rate 15 Blood Pressure 119/59 L 112/64 Pulse Oximetry 99 96 Intake & Output 04/23/18 04/24/18 04/24/18 18:59 06:59 18:59 Intake Total 1082 / 1082 887 / 887 300 / 300 Output Total 3260 / 3260 1745 / 1745 Balance -2178 / -2178 -858 / -858 300 / 300 Weight 77 kg Intake: IV 100 / 100 100 / 100 300 / 300 Flexbumin 25% Inj 100 ML @ 60 100 / 100 100 / 100 100 / 100 mls/hr IV.SIG Q12H GIGI Rx#: [id number] KCl 20 mEq Premix Inj 20 meq In 200 / 200 100 ml @ 50 mls/hr IV.SIG Q2H PRN Rx#:[id number] Tube Feeding 462 / 462 607 / 607 Tube Irrigant 120 / 120 180 / 180 Water Bolus Amount 400 / 400 Output: Stool 20 / 20 Urine Amount (Catheter) 3250 / 3250 1725 / 1725 3-way Urethral 3250 / 3250 1725 / 1725 Other: Bladder Irrigation Fluid - Amount Instilled 3-way Urethral 8,100 9,000 Bladder Irrigation Fluid - Amount Drained 3-way Urethral 11,350 10,725 Date of Last Bowel Movement 04/23/18 04/24/18 04/23/18 Narrative: GENERAL: Averagely built elderly white male on ventilator support SKIN: Warm and dry. HEAD: Atraumatic. Normocephalic. EYES: Pupils equal and round. No scleral icterus. No injection or drainage. ENT: No nasal bleeding or discharge. Mucous membranes pink and moist. NECK: Trachea midline. No JVD. Trach tube in place CARDIOVASCULAR: Regular rate and rhythm. RESPIRATORY: No accessory muscle use. Decreased breath sounds at the bases and breath sounds equal bilaterally. GASTROINTESTINAL: Abdomen soft, non-tender, nondistended. Hepatic and splenic margins not palpable. MUSCULOSKELETAL: Extremities without clubbing, cyanosis, or edema. No obvious deformities. NEUROLOGICAL: Awake and alert. No obvious cranial nerve deficits. Motor grossly within normal limits. PSYCHIATRIC: Appropriate mood and affect. - Urinary Catheter Management Indwelling Urethral Catheter Cath placed during this visit: yes, but has since been removed by the nurse Reason for continuing: Continue criteria not met Insertion date: 04/10/18 Insertion time: 01:45 Removal date: 04/15/18 Removal time: 17:05 Condom Cath placed during this visit: no 3-way Urethral Cath placed during this visit: no Results - Labs CBC & Chem 7: 04/24/18 10:50 04/24/18 10:50 Laboratory Results - last 24 hr 04/15/18 04/24/18 04/24/18 18:35 10:50 10:50 WBC 14.8 H RBC 2.43 L Hgb 7.6 L Hct 22.9 L MCV 94.3 MCH 31.1 MCHC 33.0 RDW 15.9 Plt Count 230 MPV 10.1 Sodium 139 Potassium 3.8 Chloride 104 Carbon Dioxide 28.1 Anion Gap 7 BUN 17 Creatinine 0.61 Estimated GFR Greater than 89 Random Glucose 112 H Calcium 8.8 D JUANJO Interpretation - Imaging Impressions Cervical Spine MRI 04/24/18 00:00 CONCLUSION: 1. Subtle increased signal in the cord beginning at the C4 level extending distally. There is no abnormal contrast enhancement. 2. This is seen best on the sagittal IR image set. Head MRI 04/24/18 00:00 CONCLUSION: 1. Negative MRI of the brain without and with contrast Assessment and Plan - Assessment (1) Respiratory failure Code(s): J96.90 - Respiratory failure, unspecified, unspecified whether with hypoxia or hypercapnia Status: Acute (2) Atelectasis Code(s): J98.11 - Atelectasis Status: Acute (3) Neck pain, chronic Code(s): M54.2 - Cervicalgia; G89.29 - Other chronic pain Status: Chronic (4) Other cervical disc degeneration at C5-C6 level Code(s): M50.322 - Other cervical disc degeneration at C5-C6 level Status: Chronic (5) Protrusion of cervical intervertebral disc Code(s): M50.20 - Other cervical disc displacement, unspecified cervical region Status: Chronic (6) Adult failure to thrive Code(s): R62.7 - Adult failure to thrive Status: Acute (7) Shortness of breath Code(s): R06.02 - Shortness of breath Status: Acute (8) Weakness generalized Code(s): R53.1 - Weakness Status: Acute (9) Acute hyponatremia Code(s): E87.1 - Hypo-osmolality and hyponatremia Status: Acute (10) Ventilator dependent Code(s): Z99.11 - Dependence on respirator [ventilator] status Status: Acute - Plan 1 CPAP during the day with FiO2 of 35% up to 12 -hours 2 wean FiO2 to keep sats greater than 92 3. Wean CPAP to 5 x 5 in a.m if tolerated up to 3 hours. 4. DuoNeb nebs every 6 hours as needed 5. No sedation 6. Tracheal lavage and suction as needed 7. Continue Lovenox 40 mg subcu daily 8. Neuro evaluation as ordered 9. CBC BMP in a.m. 10. Place on AC rate of 12 at night 11. PT evaluation 12. Up in chair as tolerated
[2018-04-25] MEDS: Magnesium Oxide 400 MG Tablet PO SCH ×3 (00:29→23:56)
[2018-04-25] MEDS: Oral Hygiene Kit OROPHARYNG SCH ×5 (00:29→23:56)
[2018-04-25] MEDS: Pyridostigmine Bromide 60 MG Tablet PO SCH ×7 (00:29→23:56)
[2018-04-25] MEDS: Artificial Tears Opth Drops 15 ML Bottle EACH EYE SCH ×3 (00:29→18:41)
--- NOTE | 2018-04-25 04:08 | XR ---
EXAM DATE: 04/25/2018 3:58 AM EST AGE/SEX: 67 years / Male INDICATIONS: Cough. CLINICAL DATA: This is the patient's subsequent encounter. Patient reports that signs and symptoms h ave been present for 3 weeks and indicates a pain score of Nonresponsive. MEDICAL/SURGICAL HISTORY: Gastroesophageal reflux disease. Inguinal hernia repair. Tracheostomy . COMPARISON: [facility] – [place], CHEST 1V SINGLE AP, 04/21/2018. . FINDINGS: Tracheostomy and weighted feeding tube are again noted. There is persistent left base infiltrate and effusion. Right lung remains clear. Cardiac contours are unchanged. CONCLUSION: No significant interval change Electronically signed by: Miguel Beard MD Board Certified Radiologist 04/25/2018 4:07 AM EST
[2018-04-25] MEDS: Albumin Human 25% Inj 100 ML IV.SIG SCH ×2 (05:18→18:41)
[2018-04-25] MEDS: Levothyroxine 125 MCG Tablet PO SCH (05:18)
[2018-04-25] MEDS: hydrALAZINE 50 MG Tablet PO SCH ×3 (05:18→21:03)
[2018-04-25 06:24] LABS: Anion Gap 7 meq/L (5-15); Blood Urea Nitrogen 22 mg/dL (7-18); Calcium 8.6 mg/dL (8.5-10.1); Carbon Dioxide 27.8 meq/L (21.0-32.0); Chloride 107 meq/L (98-107); Glomerular Filtration Rate Greater Than 89 mL/min (>89); Glucose,Random 92 mg/dL (74-106); Magnesium 2.4 mg/dL (1.5-2.5); Phosphorus 2.5 mg/dL (2.5-4.9); Potassium 3.9 meq/L (3.5-5.1); Sodium 142 meq/L (136-145)
[2018-04-25] MEDS: Potassium Chloride Liq 20 MEQ/15 ML UDC PO SCH ×2 (09:01→21:03)
[2018-04-25] MEDS: Chlorhexidine 0.12% Oral Kit 15 ML UDC OROPHARYNG SCH ×2 (09:02→21:00)
[2018-04-25] MEDS: Sertraline 100 MG Tablet PO SCH (09:02)
[2018-04-25] MEDS: Psyllium Husk SF 3.4 GM in 5.8 GM Packet NG/OG SCH (09:02)
[2018-04-25 10:44] LABS: Hematocrit 24.6 % (39.0-51.0); Hemoglobin 8.3 gm/dL (13.0-17.0); Mean Corpuscular HGB Conc 33.9 % (32.0-36.0); Mean Corpuscular Hemoglobin 31.5 pg (27.0-34.0); Mean Corpuscular Volume 92.9 fL (80.0-100.0); Mean Platelet Volume 9.5 fL (7.0-11.0); Platelet Count 267 th/mm3 (150-450); Red Blood Count 2.65 mil/mm3 (4.50-5.90); Red Cell Distribution Width 16.3 % (11.6-17.2); White Blood Count 15.7 th/mm3 (4.0-11.0)
[2018-04-25] MEDS ORDERED: Phenylephrine/NS 1000 MCG/10ML Syringe IV.PUSH ONE (10:47)
--- NOTE | 2018-04-25 11:32 | P.OP ---
- Preoperative Diagnosis (1) Gross hematuria - Postoperative Diagnosis (1) Gross hematuria Date of procedure: 04/25/18 Procedure: Cystoscopy with clot evacuation Anesthesia: other (General LMA) Surgeon: Prem Isaac DO Estimated blood loss (mL): 25 Pathology: none sent Operation and Findings: 67-year-old male with onset of gross hematuria for the last week. Patient does have a history of a Wood trauma which he intermittently pulled out the Wood. Gross hematuria developed 2 weeks after this episode and it was unclear as to the etiology of the hematuria. Decision made to bring the patient to the operating room to undergo cystoscopy with possible clot evacuation with fulguration. Prior CAT scan did not indicate any bleeding process. Patient was brought to the operating room and identified by myself is Romel Vásquez. He was placed in the dorsolithotomy position, prepped and draped you sterile fashion, received preprocedure antibiotics and general LMA anesthesia was administered. 22 Croatian cystoscope was inserted into the urethra and minimal areas of trauma were identified. These areas were healing and not demonstrating any evidence of hemorrhage. Once in the bladder, a large clot was identified. Using the iliac evacuator this clot was removed. The bladder did seem slightly hemorrhagic in different areas but there is no evidence any active bleeding. Trabeculations were noted throughout the bladder. No bladder tumors were identified. Clear efflux was noted from both ureteral orifices. A 22 Croatian three-way Wood catheter was inserted with 25 cc into the balloon. The urine was draining clear. Slow Amicar CBI was restarted and he was awoken and extubated transferred recovery in stable condition. He tolerated the procedure well.
[2018-04-25] MEDS ORDERED: Atropine Inj 1 MG/10 ML Syringe ONE (11:48)
[2018-04-25] MEDS: Sodium Chloride 0.9% Irr Bag 3,000 ML, Aminocaproic Acid Inj 3,000 MG IRRIGATION SCH ×2 (11:55)
[2018-04-25] MEDS ORDERED: fentaNYL Citrate Inj 100 MCG/2 ML Ampul ONE (11:58)
--- NOTE | 2018-04-25 12:21 | P.PNCC ---
Subjective Subjective Remarks/Hospital Course: This 67-year-old came into the emergency room today with his and daughter. On 02/13/2018, he had a microdiscectomy, C5-C6, by Dr. Schwarz. He was discharged home the next day. A few days after, he had not been feeling well, short of breath, disoriented, generally weak, symptoms were getting worse, disorientation was worse. He was referred to emergency department by his primary care physician for an evaluation. In the ED he was found to be in severe hypercarbic respiratory acidosis and was intubated by ED attending. 04/01: CO2 retention corrected. Remains mildly alkalotic due to chronic CO2 elevation. PH normalized. Still requiring vasopressor therapy with norepinephrine. Broad-spectrum antibiotic coverage started. Lumbar puncture performed with opening pressure 20 and crystal-clear fluid, sent for cell counts , chemistries and culture. HSV included. One extra tube sent for future studies if necessary. Ammonia level 71 - repeat daily. 04/02: CSF appears benign. Repeat ammonia level normal. Gamma GT normal. Cardiac echo estimated of 45% ejection fraction requires a little additional investigation -patient has been chronically short of breath for several weeks now. Leukocytosis and left shift persists. Gram-positive cocci and white cells seen in sputum. This man clearly became acutely and critically ill - exact cause still eludes us. 04/03: Leukocytosis improved. Remains quite rigid when stimulated. Continues to move 4 limbs with purpose and follows commands with 4 limbs. Sputum demonstrates white blood cells and gram-negative rods. 04/04: Improved color and perfusion. Extubated yesterday afternoon but failed after about 45 minutes -developed somnolence then obtundation, appeared to be having difficulty taking a breath, concern for vocal cord dysfunction. On reintubation the cord edges were irregular but otherwise normal in appearance. I could not assess cord function as patient was not alert enough to cooperate with commands. We will definitely pursue possibilities of vocal cord dysfunction and or phrenic nerve paralysis once we get him extubated. Ideally, a sniff test under fluoroscopy would demonstrate any paradoxical diaphragm motion. 04/05: Afebrile. Neurologically appears intact. Daughter concerned about "appears distant" however on 40 mcg/kg/min of propofol and 250 mcg an hour fentanyl. No bowel movement since admission. Tube feeding only at 20 cc an hour. 04/06: Afebrile. Neurologically intact. Following commands.. Positive BM. Labile blood pressures yesterday. Replace potassium currently. 04/07: Patient writing notes today. Chest x-ray clear. Elevated left diaphragm , probably dysfunctional. Continued encephalopathy and generalized weakness chris very concerning. We will try Aminophyllin today to see if we can get some diaphragm and central nervous system stimulation. 04/08: Started on theophylline yesterday. Check level in a.m. Will attempt PSV trial today. Noted pulmonology requests possible T-bar with ABG when appropriate. Afebrile. 04/09: T-max 100. theophylline currently 3.7. Currently on CPAP trials. 02/18. 45%. Check ABG at 10 today. Desaturated yesterday currently back at 40%. 04/10: Resting in bed. Episode of nausea overnight. Negative workup. Evaluated positive BM 04/08. Patient more agitated overnight. Propofol discontinued due to hypotension. Currently on fentanyl drip. Theophylline. Creatinine currently 2.0 we will consult nephrology. Discontinue lisinopril. Receiving one half normal saline bolus currently. 04/11: T-max 101.1. Increasing O2 records.Increasing white blood cell count. For the cuff is overinflated to palpate the vocal cords. Leak by examination. Will change ET tube in place central line today. Empirically start antibiotics for aspiration. Not tolerating tube feeds and currently to low inner wall suction. Check KUB after ET tube exchange and central line placement. Restart metoclopramide. Positive BMs. 04/12: Yesterday, CT thorax revealed collapsed left lower lung. Status post bronchoscopy with reinflation of lung. Better saturations today. Continues with small and large bowel colonic distention. Right: 11 cm. GI is following. Might need decompression. Current orogastric tube to low intermittent wall suction. 04/13: Improved small and large bowel colonic distention. Down to 8 cm long family discussion. We will perform percutaneous tracheostomy and PEG tube as well. Request second neurological opinion. In better spirits today. 04/14: no changes. awakens and follows commands. plan for trach today. 2/2: s/p trach yesterday. awake and alert. calm. looks more comfortable than yesterday. did not tolerate PRVC today, but tolerates PSV with high support (24/ 5/35%). 2/3: complaining of new RUQ pain. ?+Fry's sign. labs wnl today. no other complaints. denies nausea or vomiting. still has diarrhea, but this is slowing down after holding bowel regimen. ROS otherwise negative. 04/17: Gallbladder ultrasound appears benign. No new complaints. 04/18: Remains on the vent. Tolerated approximately 7 hours of CPAP yesterday with high PS. Still complaining of diarrhea. Most likely induced by tube feeds. Potassium remains low at 2.7. Potassium replacement in addition to protocol given followed by KCl 20 meq twice daily scheduled. Probably GI loss 04/19: Clinically improving tolerating CPAP better today. Pressure support reduced to 12. Near normal strength normal reflexes normal sensation. Continue aggressive potassium and phosphorus replacement. 04/20: Irrigation Wood placed and bladder for removal of large blood clots. Will delay bedside sniff test until urinary problems clear up. Anticipate indirect laryngoscopy to nasal approach soon. 04/21: Bleeding from Wood catheter markedly reduced, just pink fluid now. Awake and alert this morning. We will attempt sniff test this morning under fluoroscopy. Update: Sniff test performed under fluoroscopy by Dr. Ritesh Damon shows no diaphragmatic function on either left or right side. The patient participated well with the testing clearly used his intercostal and shoulder muscles vigorously. This pattern is clearly more consistent with a neurological illness and pretty much eliminates the likelihood of traumatic etiology. 04/22: Dr. Ritesh Damon finds and recommends: No diaphragmatic motion on either side. Respiratory pattern suspicious for high neurological deficit above C5. Repeat MRI of the brain, cervical and without and with contrast while ventilated to exclude motion artifact would be very helpful. 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 04/23: Continuing on spontaneous breathing trials with elevated pressure support. Using exaggerated accessory muscles the patient is able to breathe through relative comfort. 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 We plan to get repeat MRI brain and c-spine tomorrow - w/wo contrast per Dr. Ritesh Damon request. 04/24: Continued progress on spontaneous breathing trials but still requiring increased pressure support. We will continue to rest him at night. Continually low phosphorus is not helping muscle stamina, continue to replace aggressively. Repeat MRI of head and C-spine performed today, will review comparison to old study. SUBJECTIVE: 04/25: cysto today to evacuate clots. no other changes. awake and alert. denies new complaints. wbc slightly uptrended. Objective Vital Signs / I&O: Vital Signs 04/24/18 12:30 04/24/18 12:41 04/24/18 13:00 Temperature Pulse Rate 72 Respiratory Rate 20 Blood Pressure 147/73 H 125/70 Pulse Oximetry 97 97 100 04/24/18 14:01 04/24/18 14:02 04/24/18 14:03 Temperature Pulse Rate Respiratory Rate Blood Pressure 65/44 L 69/43 L 74/40 L Pulse Oximetry 100 98 04/24/18 14:05 04/24/18 14:13 04/24/18 14:17 Temperature Pulse Rate Respiratory Rate Blood Pressure 74/45 L 82/49 L Pulse Oximetry 99 100 100 04/24/18 14:48 04/24/18 15:00 04/24/18 15:28 Temperature Pulse Rate 75 69 Respiratory Rate 15 Blood Pressure 112/63 106/59 L Pulse Oximetry 98 100 99 04/24/18 15:30 04/24/18 16:00 04/24/18 16:05 Temperature 36.9 C Pulse Rate 71 75 Respiratory Rate 15 20 Blood Pressure 119/59 L 112/64 Pulse Oximetry 99 96 04/24/18 16:30 04/24/18 17:00 04/24/18 17:30 Temperature Pulse Rate 80 80 77 Respiratory Rate Blood Pressure 134/63 115/59 L 123/68 Pulse Oximetry 98 98 98 04/24/18 18:00 04/24/18 18:30 04/24/18 19:00 Temperature Pulse Rate 84 89 84 Respiratory Rate Blood Pressure 124/70 155/107 H 148/78 H Pulse Oximetry 97 96 97 04/24/18 19:30 04/24/18 20:00 04/24/18 20:13 Temperature Pulse Rate 82 87 Respiratory Rate 20 15 Blood Pressure 139/81 146/74 H Pulse Oximetry 98 99 95 04/24/18 20:30 04/24/18 21:00 04/24/18 21:30 Temperature 36.3 C L Pulse Rate 77 89 91 H Respiratory Rate Blood Pressure 129/71 155/73 H 148/77 H Pulse Oximetry 97 96 95 04/24/18 22:00 04/24/18 22:30 04/24/18 23:00 Temperature Pulse Rate 78 85 87 Respiratory Rate Blood Pressure 128/68 128/62 157/70 H Pulse Oximetry 96 95 98 04/24/18 23:30 04/25/18 00:00 04/25/18 00:15 Temperature Pulse Rate 76 82 Respiratory Rate 15 Blood Pressure 125/64 130/63 Pulse Oximetry 96 96 96 04/25/18 00:30 04/25/18 01:00 04/25/18 01:30 Temperature 36.8 C Pulse Rate 91 H 82 78 Respiratory Rate Blood Pressure 154/76 H 141/65 H 146/68 H Pulse Oximetry 96 94 L 97 04/25/18 02:00 04/25/18 02:30 04/25/18 03:00 Temperature Pulse Rate 76 76 90 Respiratory Rate Blood Pressure 131/72 141/87 H 165/75 H Pulse Oximetry 97 99 98 04/25/18 03:30 04/25/18 03:46 04/25/18 04:00 Temperature 36.8 C Pulse Rate 75 77 Respiratory Rate 16 Blood Pressure 138/74 136/74 Pulse Oximetry 98 98 98 04/25/18 04:30 04/25/18 05:00 04/25/18 05:30 Temperature Pulse Rate 75 80 82 Respiratory Rate Blood Pressure 145/68 H 152/72 H 145/74 H Pulse Oximetry 98 97 98 04/25/18 06:00 04/25/18 06:30 04/25/18 07:00 Temperature Pulse Rate 90 81 90 Respiratory Rate Blood Pressure 147/73 H 136/73 166/76 H Pulse Oximetry 98 98 97 04/25/18 07:30 04/25/18 08:00 04/25/18 08:30 Temperature 36.9 C Pulse Rate 81 79 97 H Respiratory Rate 17 Blood Pressure 146/81 H 160/78 H 184/86 H Pulse Oximetry 100 100 98 04/25/18 09:00 04/25/18 09:30 04/25/18 10:00 Temperature Pulse Rate 92 H 90 107 H Respiratory Rate Blood Pressure 174/80 H 149/83 H 172/96 H Pulse Oximetry 98 96 95 04/25/18 10:13 04/25/18 10:26 04/25/18 10:30 Temperature Pulse Rate 105 H Respiratory Rate Blood Pressure 166/94 H 172/83 H Pulse Oximetry 95 95 0212/19 10:45 04/25/18 11:53 Temperature Pulse Rate Respiratory Rate 15 Blood Pressure Pulse Oximetry 99 97 Intake & Output 04/24/18 04/25/18 04/25/18 18:59 06:59 18:59 Intake Total 1180 / 1180 429 / 429 250 / 250 Output Total 3150 / 3150 1400 / 1400 Balance -1969 / -1969 -971 / -971 249 / 249 Weight 74.2 kg Intake: IV 300 / 300 100 / 100 100 / 100 Flexbumin 25% Inj 100 ML @ 60 100 / 100 100 / 100 mls/hr IV.SIG Q12H GIGI Rx#: [id number] KCl 20 mEq Premix Inj 20 meq In 200 / 200 100 ml @ 50 mls/hr IV.SIG Q2H PRN Rx#:[id number] Ancef Inj 1,000 MG In NS Inj 100 / 100 100 ML @ 100 mls/hr IV.SIG ONCE ONE Rx#:[id number] Tube Feeding 480 / 480 209 / 209 Tube Irrigant 180 / 180 120 / 120 Water Bolus Amount 220 / 220 Anesthesia Amount 150 / 150 Output: Stool 0 / 0 Estimated Blood Loss 1 / 1 Urine Amount (Catheter) 3150 / 3150 1400 / 1400 3-way Urethral 3150 / 3150 1400 / 1400 Other: Bladder Irrigation Fluid - 750 Amount Instilled 3-way Urethral 6,700 5,600 Bladder Irrigation Fluid - 2,050 Amount Drained 3-way Urethral 10,725 4,200 Date of Last Bowel Movement 04/24/18 04/23/18 04/25/18 Result Diagrams: 04/25/18 10:32 04/25/18 04:10 Objective Remarks: GENERAL: 67-year-old male. Awake alert SKIN: Warm and dry. HEAD: Atraumatic. Normocephalic. EYES: Pupils equal and round. No scleral icterus. No injection or drainage. ENT: No nasal bleeding or discharge. Mucous membranes pink and moist. Dobbhoff tube in place NECK: Trachea midline. No JVD. Trach site with some minor oozing. CARDIOVASCULAR: RRR sinus. RESPIRATORY: Lungs generally clear. Tolerating longer stretches of spontaneous breathing trials but requiring elevated pressure support. GASTROINTESTINAL: Abdomen slightly protuberant/non-tender, soft, bowel sounds active MUSCULOSKELETAL: Extremities without clubbing, cyanosis, trace to 1+ edema. No obvious deformities. NEUROLOGICAL: Follows commands and moves extremities to command. Limb strength 5 /5. No focal deficits. DTRs 3+ both knees. No clonus Assessment and Plan - Assessment and Plan Plan: Neuro/Psych: History of anterior C5/6 microdiscectomy with fusion Not requiring any continuous sedation at this time Goal of RASS 0 Evaluated by neurosurgery/Dr. Viera. No intervention planned at this time CT brain/MRI C-spine negative EEG revealed no epileptic activity Neurology following. Recommend myasthenia gravis lab. Negative to date. No evidence of GBS Left diaphragm remains elevated, suspect not functioning well. Requested second opinion for neurological status See neurology note. Overall strength clinically improving Need aggressive potassium and phosphorus replacement Wound remains well healed and clean Findings of bilateral diaphragm paralysis largely rules out operative injury. CV: Systolic heart failure unknown if acute or chronic Essential hypertension Hyperlipidemia Ejection fraction 45% on admission. Appreciate cardiac evaluation by Dr. Escobedo. No plans at this time Holding amlodipine 10 mg daily, and metoprolol tartrate 12.5 mg twice daily for hypertension Holding clonidine 0.1 twice daily and lisinopril 5 mg daily in light of hypotension/lisinopril for acute kidney injury Continue pravastatin 40 mg daily for dyslipidemia. Continue aspirin 81 mg by mouth daily. Still holding antihypertensives. Holding aspirin while bladder bleeding continues Due to increasing peripheral edema we will initiate diuretic therapy. Responding to increase diuretic therapy but need to avoid dehydration. Resp: Acute hypercapnic respiratory failure- now chronic Klebsiella oxytoca pneumonia PRVC ventilation. Ventilator bundle. Head of bed at 30 degrees Albuterol/ipratropium aerosols every 4 hours with albuterol aerosols every 2 hours as needed dyspnea Will need sniff test to assess diaphragmatic function once off vent We will consult ENT to assess vocal cords when appropriate Appreciate pulmonary input. Spontaneous breathing trial daily. 02/08 discontinued theophylline 400 mg daily acute delirium. Noted level. 04/09 3.7 Status post bronchoscopy 04/11. Thick white purulent secretions left lower lobe suction to clear. General surgery s/p percutaneous tracheostomy 04/14: Dr. Conde daily weaning of CPAP/pressure support. 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 Continue spontaneous breathing trials daily, rest on rate at night. GI: Gastroesophageal reflux disease Transaminitis Hypoalbuminemia Ileus new RUQ pain Tube feeding at 60 cc an hour days. At home on pantoprazole 40 mg daily. Currently on lansoprazole 30 mg daily holding bowel regimen for diarrhea add fiber to diet. RUQ ultrasound -benign Follow liver function tests, lipase No evidence of liver injury. Follow prealbumin weekly. : Irrigation Wood in place because of acute bladder bleeding with clots. Urine largely clear with mild billie. No clots. Endo: Hypothyroidism Hypokalemia Hypophosphatemia TSH 1.28. Continue levothyroxine 125 mg by mouth daily Sliding scale insulin if indicated to maintain euglycemia Aggressive electrolyte replacement Continue scheduled thyroxine Follow TSH Renal: Kidney injury - acute, resolved. Avoid all nephrotoxic medications Creatinine currently 1.1 Neurology consultation for evaluation this is contrast-induced nephropathy from scans 03/31. Avoid nephrotoxic medication. Lisinopril discontinued. Accurate I's and O's difficult to obtain with bladder irrigation Heme: Normocytic anemia Leukocytosis Monitor CBC daily. Follow trends per No indication for transfusion of blood proximal to this time. ID: Klebsiella oxytoca pneumonia sputum 04/01 Completed with ceftriaxone per infectious disease. Started on piperacillin/tazobactam 04/11 due to aspiration, anticipated stop date 04/19 Lumbar puncture negative. HSV negative No growth to date on other cultures aside from sputum Lung ceron remain clear No evidence of ongoing infection. FEN: Hypernatremia-resolved Hypopotassemia Hypokalemia Free water 200 cc every 6 hours. Replace electrolytes as clinically indicated per ICU electrolyte protocol. Recheck electrolytes in a.m. Increase scheduled potassium replacement 50 MEQ twice daily MSK: PT evaluate and treat up to chair daily OT evaluate and treat Access -Utilize peripheral IV. Prophylaxis -GI -lansoprazole -DVT -SCD/enoxaparin Overall impression: Remains weak and de conditioned but improving strength on spontaneous breathing trials.. We continue to work on nutrition and ventilator weaning. OOB and working with PT daily. We are presently looking at disease processes which could lead to bilateral diaphragmatic paresis.
--- NOTE | 2018-04-25 13:10 | P.PN ---
Subjective Interval history: Went for cystoscopy today. On ventilator support rate of 15, and FiO2 of 40%. Vent dependent. Did not tolerate CPAP for a long. Went for MRI last p.m.. No new findings. Physical Exam Vital signs: Vital Signs 04/24/18 14:01 04/24/18 14:02 04/24/18 14:03 Temperature Pulse Rate Respiratory Rate Blood Pressure 65/44 L 69/43 L 74/40 L Pulse Oximetry 100 98 04/24/18 14:05 04/24/18 14:13 04/24/18 14:17 Temperature Pulse Rate Respiratory Rate Blood Pressure 74/45 L 82/49 L Pulse Oximetry 99 100 100 04/24/18 14:48 04/24/18 15:00 04/24/18 15:28 Temperature Pulse Rate 75 69 Respiratory Rate 15 Blood Pressure 112/63 106/59 L Pulse Oximetry 98 100 99 04/24/18 15:30 04/24/18 16:00 04/24/18 16:05 Temperature 98.4 F Pulse Rate 71 75 Respiratory Rate 15 20 Blood Pressure 119/59 L 112/64 Pulse Oximetry 99 96 04/24/18 16:30 04/24/18 17:00 04/24/18 17:30 Temperature Pulse Rate 80 80 77 Respiratory Rate Blood Pressure 134/63 115/59 L 123/68 Pulse Oximetry 98 98 98 04/24/18 18:00 04/24/18 18:30 04/24/18 19:00 Temperature Pulse Rate 84 89 84 Respiratory Rate Blood Pressure 124/70 155/107 H 148/78 H Pulse Oximetry 97 96 97 04/24/18 19:30 04/24/18 20:00 04/24/18 20:13 Temperature Pulse Rate 82 87 Respiratory Rate 20 15 Blood Pressure 139/81 146/74 H Pulse Oximetry 98 99 95 04/24/18 20:30 04/24/18 21:00 04/24/18 21:30 Temperature 97.4 F L Pulse Rate 77 89 91 H Respiratory Rate Blood Pressure 129/71 155/73 H 148/77 H Pulse Oximetry 97 96 95 04/24/18 22:00 04/24/18 22:30 04/24/18 23:00 Temperature Pulse Rate 78 85 87 Respiratory Rate Blood Pressure 128/68 128/62 157/70 H Pulse Oximetry 96 95 98 04/24/18 23:30 04/25/18 00:00 04/25/18 00:15 Temperature Pulse Rate 76 82 Respiratory Rate 15 Blood Pressure 125/64 130/63 Pulse Oximetry 96 96 96 04/25/18 00:30 04/25/18 01:00 04/25/18 01:30 Temperature 98.2 F Pulse Rate 91 H 82 78 Respiratory Rate Blood Pressure 154/76 H 141/65 H 146/68 H Pulse Oximetry 96 94 L 97 04/25/18 02:00 04/25/18 02:30 04/25/18 03:00 Temperature Pulse Rate 76 76 90 Respiratory Rate Blood Pressure 131/72 141/87 H 165/75 H Pulse Oximetry 97 99 98 04/25/18 03:30 04/25/18 03:46 04/25/18 04:00 Temperature 98.3 F Pulse Rate 75 77 Respiratory Rate 16 Blood Pressure 138/74 136/74 Pulse Oximetry 98 98 98 04/25/18 04:30 04/25/18 05:00 04/25/18 05:30 Temperature Pulse Rate 75 80 82 Respiratory Rate Blood Pressure 145/68 H 152/72 H 145/74 H Pulse Oximetry 98 97 98 04/25/18 06:00 04/25/18 06:30 04/25/18 07:00 Temperature Pulse Rate 90 81 90 Respiratory Rate Blood Pressure 147/73 H 136/73 166/76 H Pulse Oximetry 98 98 97 04/25/18 07:30 04/25/18 08:00 04/25/18 08:30 Temperature 98.4 F Pulse Rate 81 79 97 H Respiratory Rate 17 Blood Pressure 146/81 H 160/78 H 184/86 H Pulse Oximetry 100 100 98 04/25/18 09:00 04/25/18 09:30 04/25/18 10:00 Temperature Pulse Rate 92 H 90 107 H Respiratory Rate Blood Pressure 174/80 H 149/83 H 172/96 H Pulse Oximetry 98 96 95 04/25/18 10:13 04/25/18 10:26 04/25/18 10:30 Temperature Pulse Rate 105 H Respiratory Rate Blood Pressure 166/94 H 172/83 H Pulse Oximetry 95 95 04/25/18 10:45 04/25/18 11:53 Temperature Pulse Rate Respiratory Rate 15 Blood Pressure Pulse Oximetry 99 97 Intake & Output 0204/25/18 04/25/18 18:59 06:59 18:59 Intake Total 1180 / 1180 429 / 429 250 / 250 Output Total 3150 / 3150 1400 / 1400 Balance -1969 / -1969 - / - 249 / 249 Weight 74.2 kg Intake: IV 300 / 300 100 / 100 100 / 100 Flexbumin 25% Inj 100 ML @ 60 100 / 100 100 / 100 mls/hr IV.SIG Q12H GIGI Rx#: [id number] KCl 20 mEq Premix Inj 20 meq In 200 / 200 100 ml @ 50 mls/hr IV.SIG Q2H PRN Rx#:[id number] Ancef Inj 1,000 MG In NS Inj 100 / 100 100 ML @ 100 mls/hr IV.SIG ONCE ONE Rx#:[id number] Tube Feeding 480 / 480 209 / 209 Tube Irrigant 180 / 180 120 / 120 Water Bolus Amount 220 / 220 Anesthesia Amount 150 / 150 Output: Stool 0 / 0 Estimated Blood Loss 1 / 1 Urine Amount (Catheter) 3150 / 3150 1400 / 1400 3-way Urethral 3150 / 3150 1400 / 1400 Other: Bladder Irrigation Fluid - 750 Amount Instilled 3-way Urethral 6,700 5,600 Bladder Irrigation Fluid - 2,050 Amount Drained 3-way Urethral 10,725 4,200 Date of Last Bowel Movement 04/24/18 04/23/18 04/25/18 Narrative: GENERAL: Averagely built elderly white male on ventilator support SKIN: Warm and dry. HEAD: Atraumatic. Normocephalic. EYES: Pupils equal and round. No scleral icterus. No injection or drainage. ENT: No nasal bleeding or discharge. Mucous membranes pink and moist. NECK: Trachea midline. No JVD. Trach tube in place CARDIOVASCULAR: Regular rate and rhythm. RESPIRATORY: No accessory muscle use. Decreased breath sounds at the bases and an occasional wheeze bilaterally bilaterally. GASTROINTESTINAL: Abdomen soft, non-tender, nondistended. Hepatic and splenic margins not palpable. MUSCULOSKELETAL: Extremities without clubbing, cyanosis, or edema. No obvious deformities. NEUROLOGICAL: Awake and alert. Motor grossly within normal limits. PSYCHIATRIC: Appropriate mood and affect. - Urinary Catheter Management Indwelling Urethral Catheter Cath placed during this visit: yes, but has since been removed by the nurse Reason for continuing: Continue criteria not met Insertion date: 04/10/18 Insertion time: 01:45 Removal date: 04/15/18 Removal time: 17:05 Condom Cath placed during this visit: no 3-way Urethral Cath placed during this visit: yes Reason for continuing: Gross Hematuria Insertion date: 04/25/18 Insertion time: 11:20 Results - Labs CBC & Chem 7: 04/25/18 10:32 04/25/18 04:10 Laboratory Results - last 24 hr 04/22/18 04/25/18 04/25/18 19:30 04:10 10:32 WBC RBC Hgb Hct MCV MCH MCHC RDW Plt Count MPV Sodium 142 Potassium 3.9 Chloride 107 Carbon Dioxide 27.8 Anion Gap 7 BUN 22 H Creatinine 0.60 Estimated GFR Greater than 89 Random Glucose 92 Calcium 8.6 Phosphorus 2.5 Magnesium 2.4 Albumin (PEP) 3.26 L Albumin/Globulin Ratio 1.44 Sazth-8-Tvnwaylxy 0.26 Lxfcj-1-Zlzcywaas 0.75 Beta Globulins 0.62 Gamma Globulins 0.62 Blood Type A Positive Blood Type Recheck Not needed Antibody Screen Negative 04/25/18 10:32 WBC 15.7 H RBC 2.65 L Hgb 8.3 L Hct 24.6 L MCV 92.9 MCH 31.5 MCHC 33.9 RDW 16.3 Plt Count 267 MPV 9.5 Sodium Potassium Chloride Carbon Dioxide Anion Gap BUN Creatinine Estimated GFR Random Glucose Calcium Phosphorus Magnesium Albumin (PEP) Albumin/Globulin Ratio Bsdnu-7-Qzsmcedfk Pvvwg-2-Nhbvovxrb Beta Globulins Gamma Globulins Blood Type Blood Type Recheck Antibody Screen Microbiology 04/25/18 00:14 Sputum - Endotracheal Gram Stain - Final - Imaging Impressions Cervical Spine MRI 04/24/18 00:00 CONCLUSION: 1. Subtle increased signal in the cord beginning at the C4 level extending distally. There is no abnormal contrast enhancement. 2. This is seen best on the sagittal IR image set. Head MRI 04/24/18 00:00 CONCLUSION: 1. Negative MRI of the brain without and with contrast Chest X-Ray 04/25/18 06:00 CONCLUSION: No significant interval change Assessment and Plan - Assessment (1) Respiratory failure Code(s): J96.90 - Respiratory failure, unspecified, unspecified whether with hypoxia or hypercapnia Status: Acute (2) Atelectasis Code(s): J98.11 - Atelectasis Status: Acute (3) Neck pain, chronic Code(s): M54.2 - Cervicalgia; G89.29 - Other chronic pain Status: Chronic (4) Other cervical disc degeneration at C5-C6 level Code(s): M50.322 - Other cervical disc degeneration at C5-C6 level Status: Chronic (5) Protrusion of cervical intervertebral disc Code(s): M50.20 - Other cervical disc displacement, unspecified cervical region Status: Chronic (6) Adult failure to thrive Code(s): R62.7 - Adult failure to thrive Status: Acute (7) Shortness of breath Code(s): R06.02 - Shortness of breath Status: Acute (8) Weakness generalized Code(s): R53.1 - Weakness Status: Acute (9) Acute hyponatremia Code(s): E87.1 - Hypo-osmolality and hyponatremia Status: Acute (10) Ventilator dependent Code(s): Z99.11 - Dependence on respirator [ventilator] status Status: Acute - Plan 1 CPAP during the day with FiO2 of 35% up to 10 -hours 2 wean FiO2 to keep sats greater than 92 3. Wean CPAP to 5 x 5 in a.m if tolerated up to 3 hours. 4. DuoNeb nebs every 6 hours as needed 5. No sedation 6. Tracheal lavage and suction as needed 7. Continue Lovenox 40 mg subcu daily 8. Tube feeds at 55 cc/h 9. CBC BMP in a.m. 10. Place on AC rate of 15 at night 11. PT evaluation 12. Up in chair as tolerated
--- NOTE | 2018-04-25 15:05 | P.DIET ---
Nutritional Evaluation Type of nutrition evaluation: follow-up Nutrition consult regarding: Tube Feeding Objective - Diagnosis Generalized Weakness, Failure to Thrive - Objective % IBW: 102 (IBW = 184#) Body Weight Used for Calculations: Actual (84.9 kg) Energy Needs - Lower Range (kCal/kg): 25 Energy Needs - Upper Range (kCal/kg): 30 Lower Limit kCal/kg (kCals): 2,123 Upper Limit kCal/kg (kCals): 2,547 Lower Limit Protein Factor (Grams per Kg): 1.2 Upper Limit Protein Factor (Grams per Kg): 1.6 Lower Protein Needs (Protein): 102 Upper Protein Needs (Protein): 136 Dietitian Reviewed in Medical Record: Curent medications, Intake & Output, Labs , Medical history, Tube feeding Diet Order: NPO Objective Comments: Meds include Synthroid 02/13 microdiscectomy C5-6 04/03 re-intubated 45 mins after extubation Assessment Assessment: Pt is at high nutrition risk 2' to his need for TFing. TF currrently on hold for procedure. TF run time is 22 hours d/t Synthroid. Please note: TF must be held one hour before and after Synthroid is given. Recommend TF of Vital 1.5 @ 65 mls/hr x 22 hrs to provide 2145 kcals, 96.5 gms protein and 1093 mls of free water. Also recommend the addition of Beneprotein 1 pack tid to provide an additional 18 gms protein and 75 kcals. Labs, wts and clinical course reviewed; wt loss noted. Recommendations: Vital 1.5 @ 65 mls/hr x 22 hours Beneprotein 1 pack tid Dietitian to Monitor: Lab values, Intake & Output, Tube feeding tolerance, Weight change, Medical course
--- NOTE | 2018-04-25 18:00 | P.PNID ---
Subjective Remarks: pt is afebrile WBC keep going up - 15.8K no fever + increased trach secretions +sputum clx persistent infiltrate + diarrhea Antibiotics: NONE Allergies/Adverse Reactions: Allergies Sulfa (Sulfonamide Antibiotics) Allergy (Severe, Verified 02/15/18 05:02) Nausea also flu like symptoms Objective Vital Signs 04/24/18 18:00 04/24/18 18:30 04/24/18 19:00 Temperature Pulse Rate 84 89 84 Respiratory Rate Blood Pressure 124/70 155/107 H 148/78 H Pulse Oximetry 97 96 97 04/24/18 19:30 04/24/18 20:00 04/24/18 20:13 Temperature Pulse Rate 82 87 Respiratory Rate 20 15 Blood Pressure 139/81 146/74 H Pulse Oximetry 98 99 95 04/24/18 20:30 04/24/18 21:00 04/24/18 21:30 Temperature 97.4 F L Pulse Rate 77 89 91 H Respiratory Rate Blood Pressure 129/71 155/73 H 148/77 H Pulse Oximetry 97 96 95 04/24/18 22:00 04/24/18 22:30 04/24/18 23:00 Temperature Pulse Rate 78 85 87 Respiratory Rate Blood Pressure 128/68 128/62 157/70 H Pulse Oximetry 96 95 98 04/24/18 23:30 04/25/18 00:00 04/25/18 00:15 Temperature Pulse Rate 76 82 Respiratory Rate 15 Blood Pressure 125/64 130/63 Pulse Oximetry 96 96 96 04/25/18 00:30 04/25/18 01:00 04/25/18 01:30 Temperature 98.2 F Pulse Rate 91 H 82 78 Respiratory Rate Blood Pressure 154/76 H 141/65 H 146/68 H Pulse Oximetry 96 94 L 97 04/25/18 02:00 04/25/18 02:30 04/25/18 03:00 Temperature Pulse Rate 76 76 90 Respiratory Rate Blood Pressure 131/72 141/87 H 165/75 H Pulse Oximetry 97 99 98 04/25/18 03:30 04/25/18 03:46 04/25/18 04:00 Temperature 98.3 F Pulse Rate 75 77 Respiratory Rate 16 Blood Pressure 138/74 136/74 Pulse Oximetry 98 98 98 04/25/18 04:30 04/25/18 05:00 04/25/18 05:30 Temperature Pulse Rate 75 80 82 Respiratory Rate Blood Pressure 145/68 H 152/72 H 145/74 H Pulse Oximetry 98 97 98 04/25/18 06:00 04/25/18 06:30 04/25/18 07:00 Temperature Pulse Rate 90 81 90 Respiratory Rate Blood Pressure 147/73 H 136/73 166/76 H Pulse Oximetry 98 98 97 04/25/18 07:30 04/25/18 08:00 04/25/18 08:30 Temperature 98.4 F Pulse Rate 81 79 97 H Respiratory Rate 17 Blood Pressure 146/81 H 160/78 H 184/86 H Pulse Oximetry 100 100 98 04/25/18 09:00 04/25/18 09:30 04/25/18 10:00 Temperature Pulse Rate 92 H 90 107 H Respiratory Rate Blood Pressure 174/80 H 149/83 H 172/96 H Pulse Oximetry 98 96 95 04/25/18 10:13 04/25/18 10:26 04/25/18 10:30 Temperature Pulse Rate 105 H Respiratory Rate Blood Pressure 166/94 H 172/83 H Pulse Oximetry 95 95 04/25/18 10:45 04/25/18 10:54 04/25/18 11:00 Temperature Pulse Rate 88 78 Respiratory Rate Blood Pressure 131/97 H Pulse Oximetry 99 97 94 L 04/25/18 11:09 04/25/18 11:15 04/25/18 11:16 Temperature Pulse Rate 65 72 69 Respiratory Rate Blood Pressure 144/64 H 55/31 L 84/52 L Pulse Oximetry 99 98 97 04/25/18 11:19 04/25/18 11:20 04/25/18 11:21 Temperature Pulse Rate 72 73 75 Respiratory Rate Blood Pressure 83/52 L 79/43 L 80/43 L Pulse Oximetry 98 98 98 04/25/18 11:24 04/25/18 11:27 04/25/18 11:30 Temperature Pulse Rate 75 81 84 Respiratory Rate Blood Pressure 92/55 L 112/63 140/70 Pulse Oximetry 95 99 99 04/25/18 11:36 04/25/18 11:39 04/25/18 11:42 Temperature Pulse Rate 90 88 91 H Respiratory Rate Blood Pressure 151/79 H 160/86 H 168/87 H Pulse Oximetry 99 99 99 04/25/18 11:47 04/25/18 11:50 04/25/18 11:53 Temperature Pulse Rate 44 L 69 Respiratory Rate 15 Blood Pressure 221/143 H 182/79 H Pulse Oximetry 98 98 97 04/25/18 12:00 04/25/18 12:50 04/25/18 13:00 Temperature Pulse Rate 92 H 88 88 Respiratory Rate Blood Pressure 142/76 H 134/64 Pulse Oximetry 94 L 92 L 90 L 04/25/18 13:30 04/25/18 14:00 04/25/18 14:30 Temperature Pulse Rate 91 H 106 H 102 H Respiratory Rate Blood Pressure 127/77 163/85 H Pulse Oximetry 94 L 95 96 04/25/18 14:52 04/25/18 15:00 04/25/18 15:30 Temperature Pulse Rate 101 H 108 H Respiratory Rate 15 Blood Pressure 146/76 H 160/88 H Pulse Oximetry 96 95 96 04/25/18 16:00 04/25/18 16:30 04/25/18 17:00 Temperature Pulse Rate 108 H 112 H 101 H Respiratory Rate Blood Pressure 147/78 H 147/76 H 132/67 Pulse Oximetry 97 97 96 Intake & Output 04/24/18 04/25/18 04/25/18 18:59 06:59 18:59 Intake Total 1180 / 1180 529 / 529 250 / 250 Output Total 3150 / 3150 1400 / 1400 Balance -1969 / -1969 - / - 249 / 249 Weight 74.2 kg Intake: IV 300 / 300 200 / 200 100 / 100 Flexbumin 25% Inj 100 ML @ 60 100 / 100 200 / 200 mls/hr IV.SIG Q12H GIGI Rx#: [id number] KCl 20 mEq Premix Inj 20 meq In 200 / 200 100 ml @ 50 mls/hr IV.SIG Q2H PRN Rx#:[id number] Ancef Inj 1,000 MG In NS Inj 100 / 100 100 ML @ 100 mls/hr IV.SIG ONCE ONE Rx#:[id number] Tube Feeding 480 / 480 209 / 209 Tube Irrigant 180 / 180 120 / 120 Water Bolus Amount 220 / 220 Anesthesia Amount 150 / 150 Output: Stool 0 / 0 Estimated Blood Loss / Urine Amount (Catheter) 3150 / 3150 1400 / 1400 3-way Urethral 3150 / 3150 1400 / 1400 Other: Bladder Irrigation Fluid - 750 Amount Instilled 3-way Urethral 6,700 5,600 Bladder Irrigation Fluid - 2,050 Amount Drained 3-way Urethral 10,725 4,200 Date of Last Bowel Movement 04/24/18 04/23/18 04/25/18 04/11/18 18:00 Bronchial Washings - Left Lower Lobe Fungal Smear - Final No fungal elements seen 04/11/18 18:00 Bronchial Washings - Left Lower Lobe Fungal Culture - Preliminary No growth in 2 weeks 04/11/18 18:00 Bronchial Washings - Left Lower Lobe Acid Fast Bacilli Smear - Final No acid fast bacilli seen 04/11/18 18:00 Bronchial Washings - Left Lower Lobe Mycobacterial Culture - Preliminary No growth in 2 weeks 04/25/18 00:14 Sputum - Endotracheal Gram Stain - Final 04/25/18 00:14 Sputum - Endotracheal Sputum Culture - Pending Lab - Hematology Results 04/24/18 04/25/18 10:50 10:32 WBC 14.8 H 15.7 H RBC 2.43 L 2.65 L Hgb 7.6 L 8.3 L Hct 22.9 L 24.6 L MCV 94.3 92.9 MCH 31.1 31.5 MCHC 33.0 33.9 RDW 15.9 16.3 Plt Count 230 267 MPV 10.1 9.5 Lab - Chemistry Results 04/22/18 04/24/18 04/25/18 19:30 10:50 04:10 Sodium 139 142 Potassium 3.8 3.9 Chloride 104 107 Carbon Dioxide 28.1 27.8 Anion Gap 7 7 BUN 17 22 H Creatinine 0.61 0.60 Estimated GFR Greater than 89 Greater than 89 Random Glucose 112 H 92 Calcium 8.8 D 8.6 Phosphorus 2.5 Magnesium 2.4 Albumin (PEP) 3.26 L Albumin/Globulin Ratio 1.44 Lrbqg-0-Ioqmijxcp 0.26 Wmwsk-3-Glgbkvnko 0.75 Beta Globulins 0.62 Gamma Globulins 0.62 PEP Pathologist Comment Imaging: ITS Impressions Head CT 03/31/18 12:16 CONCLUSION: 1. Negative CT Head non contrast. . Chest CTA 03/31/18 14:39 CONCLUSION: 1. Bibasilar atelectatic changes, left greater than right. No confluent infiltrate. 2. No pulmonary embolus. 3. Atherosclerotic calcification of the coronary arteries. Abdomen/Bladder Ultrasound 04/10/18 08:05 CONCLUSION: 1. Probable complex cyst coming off the right lower pole kidney appears smaller since 2017 CT examination of the abdomen. Chest CT 04/11/18 00:00 CONCLUSION: 1. Patchy nodular opacities in the right lower lobe coalescing posteriorly most consistent with an infectious etiology such as bronchopneumonia. 2. Near complete left lower lobe collapse and dense airspace consolidation in the posterior right lower lobe. Differential considerations include aspiration. 3. Coronary artery cavitations. Abdomen X-Ray 04/15/18 05:07 CONCLUSION: Dobbhoff tube tip now seen in the stomach. Gallbladder Ultrasound 04/16/18 00:00 CONCLUSION: 1. Minimal prominence of the gallbladder wall. No pericholecystic fluid is seen no stones are evident. 2. Increased echogenicity of the liver suggesting fatty infiltration. Abdomen/Pelvis CT 04/19/18 10:15 CONCLUSION: 1. Tiny 1 mm calculus now noted in the posterior left side of the bladder which could represent a small bladder calculi or distal ureteral calculus. 2. The left kidney appears unremarkable and there is no hydronephrosis. The ureters appear within normal limits. 3. Single tiny nonobstructing right renal calculus without change. The previously noted complex cystic lesion in the lower pole is faintly visualized. 4. Nonspecific bowel gas pattern which may represent an ileus. Chest Fluoroscopy 04/21/18 00:00 CONCLUSION: No diaphragmatic motion on either side. Respiratory pattern suspicious for high neurological deficit above C5. Repeat MRI of the brain, cervical and without and with contrast while ventilated to exclude motion artifact would be very helpful. Cervical Spine MRI 04/24/18 00:00 CONCLUSION: 1. Subtle increased signal in the cord beginning at the C4 level extending distally. There is no abnormal contrast enhancement. 2. This is seen best on the sagittal IR image set. Head MRI 04/24/18 00:00 CONCLUSION: 1. Negative MRI of the brain without and with contrast Chest X-Ray 04/25/18 06:00 CONCLUSION: No significant interval change Physical Exam: GENERAL: NAD awake, unint'd SKIN: Warm and dry. NECK: Trach in place, + some secretons. No JVD. CARDIOVASCULAR: Regular , rate, rhtyms RESPIRATORY: No accessory muscle use. Clear to auscultation. Breath sounds equal, decreased bilaterally. GASTROINTESTINAL: Abdomen soft, non-tender, nondistended. Hepatic and splenic margins not palpable. 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 empyema ? parapneumonic will restart broad spectrumabx follow WBC follw SPEP, UPEP c.diff sputum clx CT chest to eval effsuion (wo c) breezy RN dw family @ bs
[2018-04-25] MEDS: Piperacil/Tazo 3.375 GM Premix 3.375 GM/50 ML PIGGYBACK IV.SIG SCH (21:00)
[2018-04-26] MEDS: Piperacil/Tazo 3.375 GM Premix 3.375 GM/50 ML PIGGYBACK IV.SIG SCH ×4 (01:53→20:37)
[2018-04-26] MEDS: Pyridostigmine Bromide 60 MG Tablet PO SCH ×5 (04:19→20:36)
[2018-04-26] MEDS: Oral Hygiene Kit OROPHARYNG SCH ×3 (04:20→16:36)
--- NOTE | 2018-04-26 05:10 | CT ---
EXAM DATE: 04/26/2018 4:56 AM EST AGE/SEX: 67 years / Male INDICATIONS: Pleural effusion. CLINICAL DATA: This is the patient's initial encounter. Patient reports that signs and symptoms have been present for 1 day and indicates a pain score of Nonresponsive. MEDICAL/SURGICAL HISTORY: None. . Microdiscectomy. RADIATION DOSE: 14.93 CTDI (mGy) COMPARISON: [facility] [place], CT CHEST W/O CONTRAST, 04/11/2018. . TECHNIQUE: Multiple contiguous axial images were obtained through the chest without contrast. Image s were obtained in suspended respiration using multiple row detector helical technique. Using automa meet exposure control and adjustment of the mA and/or kV according to patient size, radiation dose was kept as low as reasonably achievable to obtain optimal diagnostic quality images. DICOM format imag e data is available electronically for review and comparison. FINDINGS: Lungs: Dense consolidation persists in the left lower lobe. There is patchy reticulonodular infiltra te elsewhere, most notably in the contralateral right lower lobe. Overall slight improvement in aerat ion from the previous examination. Mediastinum: There is good visualization of the great vessels of the middle mediastinum. No evidenc e of mediastinal or hilar adenopathy/mass. Pleurae: Minimal left pleural fluid. Axillae: Unremarkable. Bony Structures: Unremarkable. Miscellaneous: The examination was extended to include the upper abdomen, and both adrenal glands ar e normal in size and configuration. CONCLUSION: Slight improvement in aeration. Electronically signed by: Miguel Beard MD Board Certified Radiologist 04/26/2018 5:08 AM EST
[2018-04-26] MEDS: hydrALAZINE 50 MG Tablet PO SCH ×3 (06:10→22:27)
[2018-04-26] MEDS: Levothyroxine 125 MCG Tablet PO SCH (06:10)
[2018-04-26] MEDS: Albumin Human 25% Inj 100 ML IV.SIG SCH ×2 (06:10→18:44)
[2018-04-26 07:16] LABS: Anion Gap 9 meq/L (5-15); Blood Urea Nitrogen 30 mg/dL (7-18); Calcium 8.8 mg/dL (8.5-10.1); Carbon Dioxide 27.4 meq/L (21.0-32.0); Chloride 108 meq/L (98-107); Glomerular Filtration Rate Greater Than 89 mL/min (>89); Glucose,Random 108 mg/dL (74-106); Magnesium 2.4 mg/dL (1.5-2.5); Potassium 3.9 meq/L (3.5-5.1); Sodium 144 meq/L (136-145)
[2018-04-26 07:17] LABS: Phosphorus 2.9 mg/dL (2.5-4.9)
--- NOTE | 2018-04-26 08:10 | P.PNNEU ---
Subjective Active Medications: Active Medications Acetaminophen (Tylenol) 650 mg PO Q6H PRN PRN Reason: Temp > 100.4 Last Admin: 04/16/18 21:02 Dose: 650 mg Albuterol (Albuterol Neb (Prn)) 2.5 mg NEB Q2HR NEB PRN PRN Reason: DYSPNEA Artificial Tears (Tears Naturale Opth Drops) 1 drop EACH EYE Q8H [facility] Last Admin: 04/26/18 00:00 Dose: 1 drop Aspirin (Aspirin Chew) 81 mg PO DAILY [facility] Last Admin: 04/19/18 08:01 Dose: 81 mg Belladonna Alkaloids/Opium (B & O Supp) 60 mg RECTAL Q6HR PRN PRN Reason: bladder spasms Chlorhexidine Gluconate (Peridex 0.12% Oral Kit) 15 ml OROPHARYNG BID@0800, 2000 [facility] Last Admin: 04/25/18 21:00 Dose: 15 ml Sodium Chloride 3,000 ml/ (Aminocaproic Acid 3,000 mg) 0 ml IRRIGATION Q24H [facility] Last Admin: 04/25/18 11:55 Dose: 3,000 irrig.soln Enoxaparin Sodium (Lovenox Inj) 40 mg SQ DAILY [facility] Last Admin: 04/19/18 08:01 Dose: 40 mg Furosemide (Lasix Inj) 40 mg IV.PUSH DAILY [facility] Last Admin: 04/25/18 09:01 Dose: 40 mg Hydralazine HCl (Apresoline) 50 mg PO Q8HR [facility] Last Admin: 04/26/18 06:10 Dose: 50 mg Piperacillin/Tazobactam/Dextrose (Zosyn 3.375 Gm Premix) 3.375 gm in 50 mls @ 100 mls/hr IV.SIG Q6H [facility] Last Infusion: 04/26/18 02:23 Dose: Infused Magnesium Sulfate 4 gm/ Sodium (Chloride) 100 mls @ 50 mls/hr IV.SIG UNSCH PRN PRN Reason: For Magnesium 0.9 - 1.1 mg/dL Potassium Chloride (Kcl 40 Meq Premix Inj) 40 meq in 100 mls @ 25 mls/hr IV.SIG Q2H PRN PRN Reason: For Potassium 2.8 - 3.2 mEq/L Last Infusion: 04/15/18 06:37 Dose: Infused Potassium Chloride (Kcl 20 Meq Premix Inj) 20 meq in 100 mls @ 50 mls/hr IV.SIG Q2H PRN PRN Reason: For Potassium 3.3 - 3.5 mEq/L Last Infusion: 04/24/18 10:29 Dose: Infused Potassium Chloride (Kcl 40 Meq Premix Inj) 40 meq in 100 mls @ 25 mls/hr IV.SIG UNSCH PRN PRN Reason: For Potassium 3.3 - 3.5 mEq/L Last Infusion: 04/12/18 10:35 Dose: Infused Potassium Chloride (Kcl 20 Meq Premix Inj) 20 meq in 100 mls @ 50 mls/hr IV.SIG Q2H PRN PRN Reason: For Potassium 2.8 - 3.2 mEq/L Last Infusion: 04/24/18 10:29 Dose: Infused Potassium Phosphate 30 mmol/ (Sodium Chloride) 260 mls @ 42 mls/hr IV.SIG UNSCH PRN PRN Reason: SEE LABEL COMMENTS Last Infusion: 04/19/18 15:35 Dose: Infused Magnesium Sulfate 2 gm/ Sodium (Chloride) 100 mls @ 50 mls/hr IV.SIG UNSCH PRN PRN Reason: For Magnesium 1.2 - 1.6 mg/dL Sodium Phosphate 30 mmol/ (Sodium Chloride) 260 mls @ 42 mls/hr IV.SIG UNSCH PRN PRN Reason: For Phosphorus < 2.5 mg/dL Albumin Human (Flexbumin 25% Inj) 100 mls @ 60 mls/hr IV.SIG Q12H [facility] Last Admin: 04/26/18 06:10 Dose: 60 mls/hr Labetalol HCl (Trandate Inj) 20 mg IV.PUSH Q1H PRN PRN Reason: SBP > 160 Last Admin: 04/24/18 11:57 Dose: 20 mg Lansoprazole (Prevacid Solutab) 30 mg NG/OG DAILY [facility] Last Admin: 04/25/18 09:02 Dose: 30 mg Levothyroxine Sodium (Synthroid) 125 mcg PO DAILY@0600 [facility] Last Admin: 04/26/18 06:10 Dose: 125 mcg Magnesium Oxide (Mag-Ox) 800 mg PO UNSCH PRN PRN Reason: For Magnesium 1.2 - 1.6 mg/dL Magnesium Oxide (Mag-Ox) 400 mg PO BID@1100,2300 [facility] Last Admin: 04/25/18 23:56 Dose: 400 mg Miscellaneous (Pill Splitter) 1 each OTHER UNSCH PRN PRN Reason: SEE LABEL COMMENTS Miscellaneous Medication () 1 each OROPHARYNG 0000,0400,1200,1600 [facility] Last Admin: 04/26/18 04:20 Dose: 1 each Ondansetron HCl (Zofran Inj) 4 mg IV.PUSH Q4H PRN PRN Reason: NAUSEA OR VOMITING Oxycodone HCl (Roxicodone Intensol Liq) 5 mg PO Q4H PRN PRN Reason: pain 4-6 Last Admin: 04/16/18 13:36 Dose: 5 mg Oxymetazoline HCl (Afrin 0.05% Nasal [place]) 2 spray NASAL Q12H PRN PRN Reason: Bronchoscopy Polyethylene Glycol (Miralax) 17 gm PO BID [facility] Last Admin: 04/15/18 21:00 Dose: Not Given Potassium Chloride (Kcl Liq) 40 meq PO UNSCH PRN PRN Reason: Potassium level 3.3-3.5 mEq/L Last Admin: 04/17/18 17:38 Dose: 40 meq Potassium Chloride (Kcl Liq) 40 meq PO UNSCH PRN PRN Reason: Potassium level 3.3-3.5 mEq/L Last Admin: 04/16/18 14:59 Dose: 40 meq Potassium Chloride (Kcl Liq) 50 meq PO BID [facility] Last Admin: 04/25/18 21:03 Dose: 50 meq Potassium Phosphate (K-Phos Original) 2,000 mg PO Q4H PRN PRN Reason: Phosphorus Less Than 2.5 mg/dL Last Admin: 04/17/18 10:48 Dose: 2,000 mg Potassium Phosphate (K-Phos Original) 2,000 mg PO UNSCH PRN PRN Reason: SEE LABEL COMMENTS Pravastatin Sodium (Pravachol) 40 mg PO HS [facility] Last Admin: 04/25/18 21:03 Dose: 40 mg Psyllium Hydrophilic Mucilloid (Metamucil Fiber Sf Pkt) 1 pack NG/OG DAILY [facility] Last Admin: 04/25/18 09:02 Dose: 1 pack Pyridostigmine [place] (Mestinon) 60 mg PO Q4HR [facility] Last Admin: 04/26/18 04:19 Dose: 60 mg Sertraline HCl (Zoloft) 100 mg PO DAILY [facility] Last Admin: 04/25/18 09:02 Dose: 100 mg Sodium Chloride (Ns Flush) 2 ml IV.FLUSH BID [facility] Last Admin: 04/25/18 21:04 Dose: 2 ml Sodium Chloride (Ns Flush) 2 ml IV.FLUSH PRN PRN PRN Reason: FLUSH AFTER USING IV ACCESS Sodium Chloride (Ns Flush) 0 ml IV.FLUSH DAILY [facility] Last Admin: 04/25/18 09:03 Dose: Not Given Allergies/Adverse Reactions: Allergies Allergy/AdvReac Type Severity Reaction Status Date / Time Sulfa (Sulfonamide Allergy Severe Nausea Verified 02/15/18 05:02 Antibiotics) Physical Exam Vital signs: Vital Signs 04/25/18 08:30 04/25/18 09:00 04/25/18 09:30 Temperature Pulse Rate 97 H 92 H 90 Respiratory Rate Blood Pressure 184/86 H 174/80 H 149/83 H Pulse Oximetry 98 98 96 04/25/18 10:00 04/25/18 10:13 04/25/18 10:26 Temperature Pulse Rate 107 H Respiratory Rate Blood Pressure 172/96 H 166/94 H Pulse Oximetry 95 95 04/25/18 10:30 04/25/18 10:45 04/25/18 10:54 Temperature Pulse Rate 105 H 88 Respiratory Rate Blood Pressure 172/83 H 131/97 H Pulse Oximetry 95 99 97 04/25/18 11:00 04/25/18 11:09 04/25/18 11:15 Temperature Pulse Rate 78 65 72 Respiratory Rate Blood Pressure 144/64 H 55/31 L Pulse Oximetry 94 L 99 98 04/25/18 11:16 04/25/18 11:19 04/25/18 11:20 Temperature Pulse Rate 69 72 73 Respiratory Rate Blood Pressure 84/52 L 83/52 L 79/43 L Pulse Oximetry 97 98 98 04/25/18 11:21 04/25/18 11:24 04/25/18 11:27 Temperature Pulse Rate 75 75 81 Respiratory Rate Blood Pressure 80/43 L 92/55 L 112/63 Pulse Oximetry 98 95 99 04/25/18 11:30 04/25/18 11:36 04/25/18 11:39 Temperature Pulse Rate 84 90 88 Respiratory Rate Blood Pressure 140/70 151/79 H 160/86 H Pulse Oximetry 99 99 99 04/25/18 11:42 04/25/18 11:47 04/25/18 11:50 Temperature Pulse Rate 91 H 44 L 69 Respiratory Rate Blood Pressure 168/87 H 221/143 H 182/79 H Pulse Oximetry 99 98 98 04/25/18 11:53 04/25/18 12:00 04/25/18 12:50 Temperature Pulse Rate 92 H 88 Respiratory Rate 15 Blood Pressure 142/76 H Pulse Oximetry 97 94 L 92 L 04/25/18 13:00 04/25/18 13:30 04/25/18 14:00 Temperature Pulse Rate 88 91 H 106 H Respiratory Rate Blood Pressure 134/64 127/77 Pulse Oximetry 90 L 94 L 95 04/25/18 14:30 04/25/18 14:52 04/25/18 15:00 Temperature Pulse Rate 102 H 101 H Respiratory Rate 15 Blood Pressure 163/85 H 146/76 H Pulse Oximetry 96 96 95 04/25/18 15:30 04/25/18 16:00 04/25/18 16:30 Temperature Pulse Rate 108 H 108 H 112 H Respiratory Rate Blood Pressure 160/88 H 147/78 H 147/76 H Pulse Oximetry 96 97 97 04/25/18 17:00 04/25/18 17:30 04/25/18 18:00 Temperature Pulse Rate 101 H 111 H 96 H Respiratory Rate Blood Pressure 132/67 148/76 H 109/60 Pulse Oximetry 96 100 95 04/25/18 18:30 04/25/18 19:00 04/25/18 19:24 Temperature Pulse Rate 110 H 104 H Respiratory Rate 15 Blood Pressure 144/79 H 144/72 H Pulse Oximetry 98 98 100 04/25/18 19:30 04/25/18 20:00 04/25/18 20:30 Temperature 98.3 F Pulse Rate 92 H 91 H 94 H Respiratory Rate Blood Pressure 102/64 111/64 116/65 Pulse Oximetry 100 100 99 04/25/18 21:00 04/25/18 21:30 04/25/18 22:00 Temperature Pulse Rate 92 H 90 90 Respiratory Rate 16 Blood Pressure 118/74 90/63 L 101/62 Pulse Oximetry 97 97 97 04/25/18 22:30 04/25/18 23:00 04/25/18 23:30 Temperature Pulse Rate 85 96 H 83 Respiratory Rate Blood Pressure 100/64 Pulse Oximetry 98 98 98 04/26/18 00:00 04/26/18 00:30 04/26/18 01:00 Temperature 98.3 F Pulse Rate 99 H 81 81 Respiratory Rate 18 Blood Pressure 131/64 113/63 122/57 L Pulse Oximetry 98 98 97 04/26/18 01:20 04/26/18 01:30 04/26/18 02:00 Temperature Pulse Rate 82 97 H Respiratory Rate 15 Blood Pressure 113/72 132/68 Pulse Oximetry 97 98 96 04/26/18 02:30 04/26/18 03:00 04/26/18 03:30 Temperature Pulse Rate 96 H 82 80 Respiratory Rate 16 Blood Pressure 131/63 105/65 106/57 L Pulse Oximetry 96 95 97 04/26/18 03:48 04/26/18 04:00 04/26/18 04:30 Temperature 98.3 F Pulse Rate 81 98 H Respiratory Rate 15 20 Blood Pressure 127/63 138/67 Pulse Oximetry 97 96 98 04/26/18 05:00 04/26/18 05:34 04/26/18 06:00 Temperature Pulse Rate 93 H 93 H 82 Respiratory Rate Blood Pressure 156/75 H 133/66 106/66 Pulse Oximetry 100 99 96 04/26/18 07:00 Temperature Pulse Rate 88 Respiratory Rate 16 Blood Pressure 102/61 Pulse Oximetry 99 Intake & Output 04/25/18 04/26/18 04/26/18 18:59 06:59 18:59 Intake Total 657 / 657 1039 / 1039 Output Total 1300 / 1300 Balance 656 / 656 -261 / -261 Weight 72.6 kg Intake: IV 100 / 100 200 / 200 Flexbumin 25% Inj 100 ML @ 60 100 / 100 mls/hr IV.SIG Q12H [facility] Rx#: [id number] Zosyn 3.375 GM Premix 3.375 gm 100 / 100 In 50 ml @ 100 mls/hr IV.SIG Q6H [facility] Rx#:[id number] Ancef Inj 1,000 MG In NS Inj 100 / 100 100 ML @ 100 mls/hr IV.SIG ONCE ONE Rx#:[id number] Tube Feeding 207 / 207 519 / 519 Tube Irrigant 200 / 200 120 / 120 Water Bolus Amount 200 / 200 Anesthesia Amount 150 / 150 Output: Estimated Blood Loss Urine Amount (Catheter) 1300 / 1300 3-way Urethral 1300 / 1300 Other: Bladder Irrigation Fluid - 500 Amount Instilled 3-way Urethral 3,000 Bladder Irrigation Fluid - 850 Amount Drained 3-way Urethral 4,300 Date of Last Bowel Movement 04/25/18 04/25/18 # Bowel Movements 4 Narrative: still on vent trach pneumonia movess all well - Urinary Catheter Management Indwelling Urethral Catheter Cath placed during this visit: yes, but has since been removed by the nurse Reason for continuing: Continue criteria not met Insertion date: 04/10/18 Insertion time: 01:45 Removal date: 04/15/18 Removal time: 17:05 Condom Cath placed during this visit: no 3-way Urethral Cath placed during this visit: yes Reason for continuing: Gross Hematuria Insertion date: 04/25/18 Insertion time: 11:20 Objective Laboratory Results - last 24 hr 04/22/18 04/25/18 04/25/18 19:30 10:32 10:32 WBC 15.7 H RBC 2.65 L Hgb 8.3 L Hct 24.6 L MCV 92.9 MCH 31.5 MCHC 33.9 RDW 16.3 Plt Count 267 MPV 9.5 Sodium Potassium Chloride Carbon Dioxide Anion Gap BUN Creatinine Estimated GFR Random Glucose Calcium Phosphorus Magnesium PEP Pathologist Comment Stl C.difficile DNA Amp St C. diff Tox Epid 027 Blood Type A Positive Blood Type Recheck Not needed Antibody Screen Negative 04/25/18 04/26/18 16:52 05:46 WBC RBC Hgb Hct MCV MCH MCHC RDW Plt Count MPV Sodium 144 Potassium 3.9 Chloride 108 H Carbon Dioxide 27.4 Anion Gap 9 BUN 30 H Creatinine 0.79 Estimated GFR Greater than 89 Random Glucose 108 H Calcium 8.8 Phosphorus 2.9 Magnesium 2.4 PEP Pathologist Comment Stl C.difficile DNA Amp Negative St C. diff Tox Epid 027 Negative Blood Type Blood Type Recheck Antibody Screen Microbiology 04/11/18 18:00 Fungal Smear - Final Bronchial Washings - Left Lower Lobe No fungal elements seen Fungal Culture - Preliminary No growth in 2 weeks 04/11/18 18:00 Acid Fast Bacilli Smear - Final Bronchial Washings - Left Lower Lobe No acid fast bacilli seen Mycobacterial Culture - Preliminary No growth in 2 weeks 04/25/18 00:14 Gram Stain - Final Sputum - Endotracheal Review/Management - Review/Management Plan: Encephalopathy Likely secondary to respiratory failure, hypoxia, metabolic etiology Respiratory failure - Lactic acidosis - Hyperammonemia - Leukocytosis - Neuro checks Q1h - MRI brain and head CT scan was unremarkable for an acute intracranial abnormality - Will reassess after patient he is off sedation. - CSF analysis is unremarkable, pending culture and HSV PCR results - EEG with evidence of encephalopathy, no epileptiform discharges or electrographic seizure activity - I met with family members and discussed the current neurologic status - There is no indication to start AEDs. -DVT prophylaxis - GI prophylaxis - Neurology will follow up. - Dr. Farias will follow up on Tuesday04/03/2018. - Please call for questions 04/03/18 met enceph mri LP eeg neg labs neg my hope is off sedatives he should do fine no hx dementia nor pd acc to daughters labs ordered few more 04/04/18 much better ok to dc sedatives neurowise recheck abg still some jerking can recheck eeg when off vent I spoke with Dr Ortiz of pulmonary. 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 According to the pt and family this developed a week after the cervical spine surgery. Myasthenia labs are negative , which does not absolutely r/o myasthenia gravis. He does not have ptosis or other bulbar sx of MG. Guillain [place] can affect respiration and phrenic nerves , but he has no limb weakness and DTRs are intact. Will discuss with Dr Farias possible empiric trial of ivig for possible atypical MG with normal labs. Will send serum JUANJO to be sure not IgA deficient before considering ivig 04/19/18 strength and dtr nl i breezy puckett and family will try mestinon although unlikely mg 04/20/18 inc mestinon to 60 mg and watch breathing 04/21/18 no change on mestinon sniff test today will check iga level in case we do ivig not confident will help though really no clinical sign of mg nor aidp 04/24/18 not any better on mestinon will breezy menendez consider ivig but really i do not think mg and a variant odd of gbs unlikley with intact reflexes we have some case report of bilat phrenic nerve damage after ant c spine surgery 04/26/18 as above no major change iga level ok will give ivig trial
--- NOTE | 2018-04-26 08:34 | P.PNURO ---
Subjective Patient symptoms today: Pt seen and examined. Urine now clear. Clot evacuation in OR yesterday. No evidence of active bleeding. Objective Vital Signs: Vital Signs 04/25/18 09:00 04/25/18 09:30 04/25/18 10:00 Temperature Pulse Rate 92 H 90 107 H Respiratory Rate Blood Pressure 174/80 H 149/83 H 172/96 H Pulse Oximetry 98 96 95 04/25/18 10:13 04/25/18 10:26 04/25/18 10:30 Temperature Pulse Rate 105 H Respiratory Rate Blood Pressure 166/94 H 172/83 H Pulse Oximetry 95 95 04/25/18 10:45 04/25/18 10:54 04/25/18 11:00 Temperature Pulse Rate 88 78 Respiratory Rate Blood Pressure 131/97 H Pulse Oximetry 99 97 94 L 04/25/18 11:09 04/25/18 11:15 04/25/18 11:16 Temperature Pulse Rate 65 72 69 Respiratory Rate Blood Pressure 144/64 H 55/31 L 84/52 L Pulse Oximetry 99 98 97 04/25/18 11:19 04/25/18 11:20 04/25/18 11:21 Temperature Pulse Rate 72 73 75 Respiratory Rate Blood Pressure 83/52 L 79/43 L 80/43 L Pulse Oximetry 98 98 98 04/25/18 11:24 04/25/18 11:27 04/25/18 11:30 Temperature Pulse Rate 75 81 84 Respiratory Rate Blood Pressure 92/55 L 112/63 140/70 Pulse Oximetry 95 99 99 04/25/18 11:36 04/25/18 11:39 04/25/18 11:42 Temperature Pulse Rate 90 88 91 H Respiratory Rate Blood Pressure 151/79 H 160/86 H 168/87 H Pulse Oximetry 99 99 99 04/25/18 11:47 04/25/18 11:50 04/25/18 11:53 Temperature Pulse Rate 44 L 69 Respiratory Rate 15 Blood Pressure 221/143 H 182/79 H Pulse Oximetry 98 98 97 04/25/18 12:00 04/25/18 12:50 04/25/18 13:00 Temperature Pulse Rate 92 H 88 88 Respiratory Rate Blood Pressure 142/76 H 134/64 Pulse Oximetry 94 L 92 L 90 L 04/25/18 13:30 04/25/18 14:00 04/25/18 14:30 Temperature Pulse Rate 91 H 106 H 102 H Respiratory Rate Blood Pressure 127/77 163/85 H Pulse Oximetry 94 L 95 96 04/25/18 14:52 04/25/18 15:00 04/25/18 15:30 Temperature Pulse Rate 101 H 108 H Respiratory Rate 15 Blood Pressure 146/76 H 160/88 H Pulse Oximetry 96 95 96 04/25/18 16:00 04/25/18 16:30 04/25/18 17:00 Temperature Pulse Rate 108 H 112 H 101 H Respiratory Rate Blood Pressure 147/78 H 147/76 H 132/67 Pulse Oximetry 97 97 96 04/25/18 17:30 04/25/18 18:00 04/25/18 18:30 Temperature Pulse Rate 111 H 96 H 110 H Respiratory Rate Blood Pressure 148/76 H 109/60 144/79 H Pulse Oximetry 100 95 98 04/25/18 19:00 04/25/18 19:24 04/25/18 19:30 Temperature Pulse Rate 104 H 92 H Respiratory Rate 15 Blood Pressure 144/72 H 102/64 Pulse Oximetry 98 100 100 04/25/18 20:00 04/25/18 20:30 04/25/18 21:00 Temperature 98.3 F Pulse Rate 91 H 94 H 92 H Respiratory Rate Blood Pressure 111/64 116/65 118/74 Pulse Oximetry 100 99 97 04/25/18 21:30 04/25/18 22:00 04/25/18 22:30 Temperature Pulse Rate 90 90 85 Respiratory Rate 16 Blood Pressure 90/63 L 101/62 Pulse Oximetry 97 97 98 04/25/18 23:00 04/25/18 23:30 04/26/18 00:00 Temperature 98.3 F Pulse Rate 96 H 83 99 H Respiratory Rate 18 Blood Pressure 100/64 131/64 Pulse Oximetry 98 98 98 04/26/18 00:30 04/26/18 01:00 04/26/18 01:20 Temperature Pulse Rate 81 81 Respiratory Rate 15 Blood Pressure 113/63 122/57 L Pulse Oximetry 98 97 97 04/26/18 01:30 04/26/18 02:00 04/26/18 02:30 Temperature Pulse Rate 82 97 H 96 H Respiratory Rate Blood Pressure 113/72 132/68 131/63 Pulse Oximetry 98 96 96 04/26/18 03:00 04/26/18 03:30 04/26/18 03:48 Temperature Pulse Rate 82 80 Respiratory Rate 16 15 Blood Pressure 105/65 106/57 L Pulse Oximetry 95 97 97 04/26/18 04:00 04/26/18 04:30 04/26/18 05:00 Temperature 98.3 F Pulse Rate 81 98 H 93 H Respiratory Rate 20 Blood Pressure 127/63 138/67 156/75 H Pulse Oximetry 96 98 100 04/26/18 05:34 04/26/18 06:00 04/26/18 07:00 Temperature Pulse Rate 93 H 82 88 Respiratory Rate 16 Blood Pressure 133/66 106/66 102/61 Pulse Oximetry 99 96 99 Intake & Output 04/25/18 04/26/18 04/26/18 18:59 06:59 18:59 Intake Total 657 / 657 1039 / 1039 Output Total 1300 / 1300 Balance 656 / 656 -261 / -261 Weight 72.6 kg Intake: IV 100 / 100 200 / 200 Flexbumin 25% Inj 100 ML @ 60 100 / 100 mls/hr IV.SIG Q12H [facility] Rx#: [id number] Zosyn 3.375 GM Premix 3.375 gm 100 / 100 In 50 ml @ 100 mls/hr IV.SIG Q6H [facility] Rx#:[id number] Ancef Inj 1,000 MG In NS Inj 100 / 100 100 ML @ 100 mls/hr IV.SIG ONCE ONE Rx#:[id number] Tube Feeding 207 / 207 519 / 519 Tube Irrigant 200 / 200 120 / 120 Water Bolus Amount 200 / 200 Anesthesia Amount 150 / 150 Output: Estimated Blood Loss 1 / Urine Amount (Catheter) 1300 / 1300 3-way Urethral 1300 / 1300 Other: Bladder Irrigation Fluid - 500 Amount Instilled 3-way Urethral 3,000 Bladder Irrigation Fluid - 850 Amount Drained 3-way Urethral 4,300 Date of Last Bowel Movement 04/25/18 04/25/18 # Bowel Movements 4 Result Diagrams: 04/25/18 10:32 04/26/18 05:46 Imaging: Impressions Chest CT 04/26/18 00:00 CONCLUSION: Slight improvement in aeration. Medications and IVs: Active Medications Generic Name Dose Route Start Last Admin Trade Name Freq PRN Reason Stop Dose Admin Acetaminophen 650 mg 04/10/18 08:00 04/16/18 21:02 Tylenol PO 650 mg Q6H PRN Administration Temp > 100.4 Albuterol 2.5 mg 04/05/18 09:00 Albuterol Neb (Prn) NEB Q2HR NEB PRN DYSPNEA Artificial Tears 1 drop 04/05/18 09:00 04/26/18 00:00 Tears Naturale Opth Drops EACH EYE 1 drop Q8H GIGI Administration Aspirin 81 mg 04/10/18 09:00 04/19/18 08:01 Aspirin Chew PO 81 mg DAILY GIGI Administration Belladonna Alkaloids/Opium 60 mg 04/20/18 11:10 B & O Supp RECTAL Q6HR PRN bladder spasms Chlorhexidine Gluconate 15 ml 03/31/18 20:00 04/25/18 21:00 Peridex 0.12% Oral Kit OROPHARYNG 15 ml BID@0800,2000 GIGI Administration Sodium Chloride 3,000 ml/ 0 ml 04/24/18 11:00 04/25/18 11:55 Aminocaproic Acid 3,000 mg IRRIGATION 3,000 irrig.soln Q24H GIGI Administration Diphenhydramine HCl 50 mg 04/26/18 08:24 Benadryl Inj IV.PUSH 05/02/18 08:23 PRN PRN ALLERGIC REACTION Enoxaparin Sodium 40 mg 04/06/18 12:00 04/19/18 08:01 Lovenox Inj SQ 40 mg DAILY GIGI Administration Epinephrine HCl 0.3 mg 04/26/18 08:24 Epinephrine (1:1000) Inj OTHER 05/02/18 08:23 Q10M PRN Anaphylactic Reaction Furosemide 40 mg 04/22/18 17:30 04/25/18 09:01 Lasix Inj IV.PUSH 40 mg DAILY GIGI Administration Hydralazine HCl 50 mg 04/16/18 19:15 04/26/18 06:10 Apresoline PO 50 mg Q8HR GIGI Administration Piperacillin/Tazobactam/Dextrose 3.375 gm in 50 mls @ 100 mls/hr 04/25/18 20: 00 04/26/18 02:23 Zosyn 3.375 Gm Premix IV.SIG Infused Q6H GIGI Infusion Immune Globulin 30 gm/ 300 mls @ 37.5 mls/hr 04/26/18 09:30 Miscellaneous Medication IV.SIG 05/01/18 09:29 Q24HR GIGI Magnesium Sulfate 4 gm/ Sodium 100 mls @ 50 mls/hr 04/12/18 06:15 Chloride IV.SIG UNSCH PRN For Magnesium 0.9 - 1.1 mg/dL Potassium Chloride 40 meq in 100 mls @ 25 mls/hr 04/12/18 06:15 04/15/18 06: 37 Kcl 40 Meq Premix Inj IV.SIG Infused Q2H PRN Infusion For Potassium 2.8 - 3.2 mEq/L Potassium Chloride 20 meq in 100 mls @ 50 mls/hr 04/12/18 06:15 04/24/18 10: 29 Kcl 20 Meq Premix Inj IV.SIG Infused Q2H PRN Infusion For Potassium 3.3 - 3.5 mEq/L Potassium Chloride 40 meq in 100 mls @ 25 mls/hr 04/12/18 06:15 04/12/18 10: 35 Kcl 40 Meq Premix Inj IV.SIG Infused UNSCH PRN Infusion For Potassium 3.3 - 3.5 mEq/L Potassium Chloride 20 meq in 100 mls @ 50 mls/hr 04/12/18 06:15 04/24/18 10: 29 Kcl 20 Meq Premix Inj IV.SIG Infused Q2H PRN Infusion For Potassium 2.8 - 3.2 mEq/L Potassium Phosphate 30 mmol/ 260 mls @ 42 mls/hr 04/12/18 06:15 04/19/18 15: 35 Sodium Chloride IV.SIG Infused UNSCH PRN Infusion SEE LABEL COMMENTS Magnesium Sulfate 2 gm/ Sodium 100 mls @ 50 mls/hr 04/12/18 06:15 Chloride IV.SIG UNSCH PRN For Magnesium 1.2 - 1.6 mg/dL Sodium Phosphate 30 mmol/ 260 mls @ 42 mls/hr 04/12/18 06:15 Sodium Chloride IV.SIG UNSCH PRN For Phosphorus < 2.5 mg/dL Albumin Human 100 mls @ 60 mls/hr 04/22/18 18:00 04/26/18 06:10 Flexbumin 25% Inj IV.SIG 60 mls/hr Q12H GIGI Administration Labetalol HCl 20 mg 04/09/18 17:00 04/24/18 11:57 Trandate Inj IV.PUSH 20 mg Q1H PRN Administration SBP > 160 Lansoprazole 30 mg 04/10/18 09:00 04/25/18 09:02 Prevacid Solutab NG/OG 30 mg DAILY GIGI Administration Levothyroxine Sodium 125 mcg 04/01/18 06:00 04/26/18 06:10 Synthroid PO 125 mcg DAILY@0600 GIGI Administration Magnesium Oxide 800 mg 04/12/18 06:15 Mag-Ox PO UNSCH PRN For Magnesium 1.2 - 1.6 mg/dL Magnesium Oxide 400 mg 04/19/18 11:00 04/25/18 23:56 Mag-Ox PO 400 mg BID@1100,2300 GIGI Administration Miscellaneous 1 each 04/19/18 11:31 Pill Splitter OTHER UNSCH PRN SEE LABEL COMMENTS Miscellaneous Medication 1 each 04/01/18 00:00 04/26/18 04:20 OROPHARYNG 1 each 0000,0400,1200,1600 GIGI Administration Ondansetron HCl 4 mg 04/10/18 08:03 Zofran Inj IV.PUSH Q4H PRN NAUSEA OR VOMITING Oxycodone HCl 5 mg 04/16/18 13:22 04/16/18 13:36 Roxicodone Intensol Liq PO 5 mg Q4H PRN Administration pain 4-6 Oxymetazoline HCl 2 spray 04/19/18 15:32 Afrin 0.05% Nasal [place] NASAL Q12H PRN Bronchoscopy Polyethylene Glycol 17 gm 04/05/18 09:00 04/15/18 21:00 Miralax PO Not Given BID [facility] Potassium Chloride 40 meq 04/12/18 06:15 04/17/18 17:38 Kcl Liq PO 40 meq UNSCH PRN Administration Potassium level 3.3-3.5 mEq/L Potassium Chloride 40 meq 04/12/18 06:15 04/16/18 14:59 Kcl Liq PO 40 meq UNSCH PRN Administration Potassium level 3.3-3.5 mEq/L Potassium Chloride 50 meq 04/19/18 10:30 04/25/18 21:03 Kcl Liq PO 50 meq BID GIGI Administration Potassium Phosphate 2,000 mg 04/12/18 06:15 04/17/18 10:48 K-Phos Original PO 2,000 mg Q4H PRN Administration Phosphorus Less Than 2.5 mg/dL Potassium Phosphate 2,000 mg 04/12/18 06:15 K-Phos Original PO UNSCH PRN SEE LABEL COMMENTS Pravastatin Sodium 40 mg 03/31/18 21:00 04/25/18 21:03 Pravachol PO 40 mg HS GIGI Administration Psyllium Hydrophilic Mucilloid 1 pack 04/18/18 09:00 04/25/18 09:02 Metamucil Fiber Sf Pkt NG/OG 1 pack DAILY GIGI Administration Pyridostigmine [place] 60 mg 04/20/18 08:00 04/26/18 04:19 Mestinon PO 60 mg Q4HR GIGI Administration Sertraline HCl 100 mg 04/21/18 18:00 04/25/18 09:02 Zoloft PO 100 mg DAILY GIGI Administration Sodium Chloride 2 ml 03/31/18 21:00 04/25/18 21:04 Ns Flush IV.FLUSH 2 ml BID GIGI Administration Sodium Chloride 2 ml 03/31/18 17:02 Ns Flush IV.FLUSH PRN PRN FLUSH AFTER USING IV ACCESS Sodium Chloride 0 ml 04/11/18 09:00 04/25/18 09:03 Ns Flush IV.FLUSH Not Given DAILY GIGI Objective Remarks: Abd:soft,nd, slight SP tenderness Lehman with some hematuria on slow CBI-clearing 04/23 Abd:soft,nt,nd Lehman: few clots irrigated. Urine clearing on CBI. 04/24 Abd:soft,nt,nd Lehman with some blood; on CBI 04/26 04/24 Abd:soft,nt,nd Lehman: urine clear Assessment and Plan - Plan 67 y.o male with onset of gross hematuria Continue lehman drainage and CBI B&O suppository for bladder spasms. 04/21 67 y.o male with gross hematuria of unclear etiology. Possibly secondary to trauma and anitcoagulation therapy. CT scan was unremarable to any bleeding lesion. Maintain CBI and irrigate lehman manually at bedside Consider transfusion for Hgb of 7.8. If bleeding does persists will need cystoscopy. 04/24 67 y.o male with gross hematuria of unclear etiology. Possibly secondary to trauma and anitcoagulation therapy. CT scan was unremarable to any bleeding lesion. Will start Amicar CBI today Check labs If bleeding does persists will need cystoscopy this week 04/26 67 y.o male s/p cysto with clot evacuation. No evidence of active bleeding D/C CBI Call with questions.
[2018-04-26] MEDS ORDERED: IVIG (Immune Globulin) Inj 30 GM in Syringe/Bag 1 EACH IV.SIG SCH (09:30)
[2018-04-26] MEDS: Sertraline 100 MG Tablet PO SCH (09:31)
[2018-04-26] MEDS: Chlorhexidine 0.12% Oral Kit 15 ML UDC OROPHARYNG SCH ×2 (09:32→20:37)
[2018-04-26] MEDS: Potassium Chloride Liq 20 MEQ/15 ML UDC PO SCH ×2 (09:33→20:37)
[2018-04-26] MEDS: Psyllium Husk SF 3.4 GM in 5.8 GM Packet NG/OG SCH (09:34)
[2018-04-26] MEDS: Artificial Tears Opth Drops 15 ML Bottle EACH EYE SCH ×3 (09:35→16:36)
[2018-04-26] MEDS: IVIG (Immune Globulin) Inj 30 GM in Syringe/Bag 1 EACH IV.SIG SCH (10:20)
--- NOTE | 2018-04-26 10:20 | P.PNCC ---
Subjective Subjective Remarks/Hospital Course: This 67-year-old came into the emergency room today with his and daughter. On 02/13/2018, he had a microdiscectomy, C5-C6, by Dr. Schwarz. He was discharged home the next day. A few days after, he had not been feeling well, short of breath, disoriented, generally weak, symptoms were getting worse, disorientation was worse. He was referred to emergency department by his primary care physician for an evaluation. In the ED he was found to be in severe hypercarbic respiratory acidosis and was intubated by ED attending. 04/01: CO2 retention corrected. Remains mildly alkalotic due to chronic CO2 elevation. PH normalized. Still requiring vasopressor therapy with norepinephrine. Broad-spectrum antibiotic coverage started. Lumbar puncture performed with opening pressure 20 and crystal-clear fluid, sent for cell counts , chemistries and culture. HSV included. One extra tube sent for future studies if necessary. Ammonia level 71 - repeat daily. 04/02: CSF appears benign. Repeat ammonia level normal. Gamma GT normal. Cardiac echo estimated of 45% ejection fraction requires a little additional investigation -patient has been chronically short of breath for several weeks now. Leukocytosis and left shift persists. Gram-positive cocci and white cells seen in sputum. This man clearly became acutely and critically ill - exact cause still eludes us. 04/03: Leukocytosis improved. Remains quite rigid when stimulated. Continues to move 4 limbs with purpose and follows commands with 4 limbs. Sputum demonstrates white blood cells and gram-negative rods. 04/04: Improved color and perfusion. Extubated yesterday afternoon but failed after about 45 minutes -developed somnolence then obtundation, appeared to be having difficulty taking a breath, concern for vocal cord dysfunction. On reintubation the cord edges were irregular but otherwise normal in appearance. I could not assess cord function as patient was not alert enough to cooperate with commands. We will definitely pursue possibilities of vocal cord dysfunction and or phrenic nerve paralysis once we get him extubated. Ideally, a sniff test under fluoroscopy would demonstrate any paradoxical diaphragm motion. 04/05: Afebrile. Neurologically appears intact. Daughter concerned about "appears distant" however on 40 mcg/kg/min of propofol and 250 mcg an hour fentanyl. No bowel movement since admission. Tube feeding only at 20 cc an hour. 04/06: Afebrile. Neurologically intact. Following commands.. Positive BM. Labile blood pressures yesterday. Replace potassium currently. 04/07: Patient writing notes today. Chest x-ray clear. Elevated left diaphragm , probably dysfunctional. Continued encephalopathy and generalized weakness chris very concerning. We will try Aminophyllin today to see if we can get some diaphragm and central nervous system stimulation. 04/08: Started on theophylline yesterday. Check level in a.m. Will attempt PSV trial today. Noted pulmonology requests possible T-bar with ABG when appropriate. Afebrile. 04/09: T-max 100. theophylline currently 3.7. Currently on CPAP trials. 02/18. 45%. Check ABG at 10 today. Desaturated yesterday currently back at 40%. 04/10: Resting in bed. Episode of nausea overnight. Negative workup. Evaluated positive BM 04/08. Patient more agitated overnight. Propofol discontinued due to hypotension. Currently on fentanyl drip. Theophylline. Creatinine currently 2.0 we will consult nephrology. Discontinue lisinopril. Receiving one half normal saline bolus currently. 04/11: T-max 101.1. Increasing O2 records.Increasing white blood cell count. For the cuff is overinflated to palpate the vocal cords. Leak by examination. Will change ET tube in place central line today. Empirically start antibiotics for aspiration. Not tolerating tube feeds and currently to low inner wall suction. Check KUB after ET tube exchange and central line placement. Restart metoclopramide. Positive BMs. 04/12: Yesterday, CT thorax revealed collapsed left lower lung. Status post bronchoscopy with reinflation of lung. Better saturations today. Continues with small and large bowel colonic distention. Right: 11 cm. GI is following. Might need decompression. Current orogastric tube to low intermittent wall suction. 04/13: Improved small and large bowel colonic distention. Down to 8 cm long family discussion. We will perform percutaneous tracheostomy and PEG tube as well. Request second neurological opinion. In better spirits today. 04/14: no changes. awakens and follows commands. plan for trach today. 2/2: s/p trach yesterday. awake and alert. calm. looks more comfortable than yesterday. did not tolerate PRVC today, but tolerates PSV with high support (24/ 5/35%). 2/3: complaining of new RUQ pain. ?+Fry's sign. labs wnl today. no other complaints. denies nausea or vomiting. still has diarrhea, but this is slowing down after holding bowel regimen. ROS otherwise negative. 04/17: Gallbladder ultrasound appears benign. No new complaints. 04/18: Remains on the vent. Tolerated approximately 7 hours of CPAP yesterday with high PS. Still complaining of diarrhea. Most likely induced by tube feeds. Potassium remains low at 2.7. Potassium replacement in addition to protocol given followed by KCl 20 meq twice daily scheduled. Probably GI loss 04/19: Clinically improving tolerating CPAP better today. Pressure support reduced to 12. Near normal strength normal reflexes normal sensation. Continue aggressive potassium and phosphorus replacement. 04/20: Irrigation Lehman placed and bladder for removal of large blood clots. Will delay bedside sniff test until urinary problems clear up. Anticipate indirect laryngoscopy to nasal approach soon. 04/21: Bleeding from Lehman catheter markedly reduced, just pink fluid now. Awake and alert this morning. We will attempt sniff test this morning under fluoroscopy. Update: Sniff test performed under fluoroscopy by Dr. Ritesh Damon shows no diaphragmatic function on either left or right side. The patient participated well with the testing clearly used his intercostal and shoulder muscles vigorously. This pattern is clearly more consistent with a neurological illness and pretty much eliminates the likelihood of traumatic etiology. 04/22: Dr. Ritesh Damon finds and recommends: No diaphragmatic motion on either side. Respiratory pattern suspicious for high neurological deficit above C5. Repeat MRI of the brain, cervical and without and with contrast while ventilated to exclude motion artifact would be very helpful. 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 04/23: Continuing on spontaneous breathing trials with elevated pressure support. Using exaggerated accessory muscles the patient is able to breathe through relative comfort. 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 We plan to get repeat MRI brain and c-spine tomorrow - w/wo contrast per Dr. Ritesh Damon request. 04/24: Continued progress on spontaneous breathing trials but still requiring increased pressure support. We will continue to rest him at night. Continually low phosphorus is not helping muscle stamina, continue to replace aggressively. Repeat MRI of head and C-spine performed today, will review comparison to old study. SUBJECTIVE: 04/25: cysto today to evacuate clots. no other changes. awake and alert. denies new complaints. wbc slightly uptrended. 04/26: no more hematuria. CBI stopped this AM. discussed with urologist: plan to keep lehman at least 1 week or until more mobile. risk of urinary retention is high and repeat catheterization has high likelihood of causing additional bleeding. discussion with neurology: plan to start IVIG for possible GBS vs. auto-immune or transverse myelitis type neuromuscular weakness. I had a long discussion with the patient and his today where we reviewed his current active medical problems as well as terminal supervisor planning, prognosis, and ongoing work-up for each. We will start looking into referral centers who have therapies targeted to diaphragmatic paralysis. ROS negative. Objective Vital Signs / I&O: Vital Signs 04/25/18 10:13 04/25/18 10:26 04/25/18 10:30 Temperature Pulse Rate 105 H Respiratory Rate Blood Pressure 166/94 H 172/83 H Pulse Oximetry 95 95 04/25/18 10:45 04/25/18 10:54 04/25/18 11:00 Temperature Pulse Rate 88 78 Respiratory Rate Blood Pressure 131/97 H Pulse Oximetry 99 97 94 L 04/25/18 11:09 04/25/18 11:15 04/25/18 11:16 Temperature Pulse Rate 65 72 69 Respiratory Rate Blood Pressure 144/64 H 55/31 L 84/52 L Pulse Oximetry 99 98 97 04/25/18 11:19 04/25/18 11:20 04/25/18 11:21 Temperature Pulse Rate 72 73 75 Respiratory Rate Blood Pressure 83/52 L 79/43 L 80/43 L Pulse Oximetry 98 98 98 04/25/18 11:24 04/25/18 11:27 04/25/18 11:30 Temperature Pulse Rate 75 81 84 Respiratory Rate Blood Pressure 92/55 L 112/63 140/70 Pulse Oximetry 95 99 99 04/25/18 11:36 04/25/18 11:39 04/25/18 11:42 Temperature Pulse Rate 90 88 91 H Respiratory Rate Blood Pressure 151/79 H 160/86 H 168/87 H Pulse Oximetry 99 99 99 04/25/18 11:47 04/25/18 11:50 04/25/18 11:53 Temperature Pulse Rate 44 L 69 Respiratory Rate 15 Blood Pressure 221/143 H 182/79 H Pulse Oximetry 98 98 97 04/25/18 12:00 04/25/18 12:50 04/25/18 13:00 Temperature Pulse Rate 92 H 88 88 Respiratory Rate Blood Pressure 142/76 H 134/64 Pulse Oximetry 94 L 92 L 90 L 04/25/18 13:30 04/25/18 14:00 04/25/18 14:30 Temperature Pulse Rate 91 H 106 H 102 H Respiratory Rate Blood Pressure 127/77 163/85 H Pulse Oximetry 94 L 95 96 04/25/18 14:52 04/25/18 15:00 04/25/18 15:30 Temperature Pulse Rate 101 H 108 H Respiratory Rate 15 Blood Pressure 146/76 H 160/88 H Pulse Oximetry 96 95 96 04/25/18 16:00 04/25/18 16:30 04/25/18 17:00 Temperature Pulse Rate 108 H 112 H 101 H Respiratory Rate Blood Pressure 147/78 H 147/76 H 132/67 Pulse Oximetry 97 97 96 04/25/18 17:30 04/25/18 18:00 04/25/18 18:30 Temperature Pulse Rate 111 H 96 H 110 H Respiratory Rate Blood Pressure 148/76 H 109/60 144/79 H Pulse Oximetry 100 95 98 04/25/18 19:00 04/25/18 19:24 04/25/18 19:30 Temperature Pulse Rate 104 H 92 H Respiratory Rate 15 Blood Pressure 144/72 H 102/64 Pulse Oximetry 98 100 100 04/25/18 20:00 04/25/18 20:30 04/25/18 21:00 Temperature 36.8 C Pulse Rate 91 H 94 H 92 H Respiratory Rate Blood Pressure 111/64 116/65 118/74 Pulse Oximetry 100 99 97 04/25/18 21:30 04/25/18 22:00 04/25/18 22:30 Temperature Pulse Rate 90 90 85 Respiratory Rate 16 Blood Pressure 90/63 L 101/62 Pulse Oximetry 97 97 98 04/25/18 23:00 04/25/18 23:30 04/26/18 00:00 Temperature 36.8 C Pulse Rate 96 H 83 99 H Respiratory Rate 18 Blood Pressure 100/64 131/64 Pulse Oximetry 98 98 98 04/26/18 00:30 04/26/18 01:00 04/26/18 01:20 Temperature Pulse Rate 81 81 Respiratory Rate 15 Blood Pressure 113/63 122/57 L Pulse Oximetry 98 97 97 04/26/18 01:30 04/26/18 02:00 04/26/18 02:30 Temperature Pulse Rate 82 97 H 96 H Respiratory Rate Blood Pressure 113/72 132/68 131/63 Pulse Oximetry 98 96 96 04/26/18 03:00 04/26/18 03:30 04/26/18 03:48 Temperature Pulse Rate 82 80 Respiratory Rate 16 15 Blood Pressure 105/65 106/57 L Pulse Oximetry 95 97 97 04/26/18 04:00 04/26/18 04:30 04/26/18 05:00 Temperature 36.8 C Pulse Rate 81 98 H 93 H Respiratory Rate 20 Blood Pressure 127/63 138/67 156/75 H Pulse Oximetry 96 98 100 04/26/18 05:34 04/26/18 06:00 04/26/18 07:00 Temperature Pulse Rate 93 H 82 88 Respiratory Rate 16 Blood Pressure 133/66 106/66 102/61 Pulse Oximetry 99 96 99 04/26/18 08:00 04/26/18 09:00 04/26/18 09:10 Temperature 37.4 C Pulse Rate 103 H 107 H Respiratory Rate 15 Blood Pressure 126/62 148/72 H Pulse Oximetry 98 97 97 Intake & Output 04/25/18 04/26/18 04/26/18 18:59 06:59 18:59 Intake Total 657 / 657 1039 / 1039 Output Total 1300 / 1300 Balance 656 / 656 -261 / -261 Weight 72.6 kg Intake: IV 100 / 100 200 / 200 Flexbumin 25% Inj 100 ML @ 60 100 / 100 mls/hr IV.SIG Q12H GIGI Rx#: [id number] Zosyn 3.375 GM Premix 3.375 gm 100 / 100 In 50 ml @ 100 mls/hr IV.SIG Q6H GIGI Rx#:[id number] Ancef Inj 1,000 MG In NS Inj 100 / 100 100 ML @ 100 mls/hr IV.SIG ONCE ONE Rx#:[id number] Tube Feeding 207 / 207 519 / 519 Tube Irrigant 200 / 200 120 / 120 Water Bolus Amount 200 / 200 Anesthesia Amount 150 / 150 Output: Estimated Blood Loss Urine Amount (Catheter) 1300 / 1300 3-way Urethral 1300 / 1300 Other: Bladder Irrigation Fluid - 500 Amount Instilled 3-way Urethral 3,000 Bladder Irrigation Fluid - 850 Amount Drained 3-way Urethral 4,300 Date of Last Bowel Movement 04/25/18 04/25/18 04/25/18 # Bowel Movements 4 Result Diagrams: 04/25/18 10:32 04/26/18 05:46 Objective Remarks: GENERAL: 67-year-old male. Awake alert SKIN: Warm and dry. HEAD: Atraumatic. Normocephalic. EYES: Pupils equal and round. No scleral icterus. No injection or drainage. ENT: No nasal bleeding or discharge. Mucous membranes pink and moist. Dobbhoff tube in place NECK: Trachea midline. No JVD. Trach site with some minor oozing. CARDIOVASCULAR: RRR sinus. RESPIRATORY: Lungs generally clear. Tolerating longer stretches of spontaneous breathing trials but requiring elevated pressure support. GASTROINTESTINAL: Abdomen slightly protuberant/non-tender, soft, bowel sounds active MUSCULOSKELETAL: Extremities without clubbing, cyanosis, trace to 1+ edema. No obvious deformities. NEUROLOGICAL: Follows commands and moves extremities to command. Limb strength 5 /5. No focal deficits. DTRs 3+ both knees. No clonus Assessment and Plan - Assessment and Plan Plan: Neuro/Psych: History of anterior C5/6 microdiscectomy with fusion Not requiring any continuous sedation at this time Goal of RASS 0 Evaluated by neurosurgery/Dr. Viera. No intervention planned at this time CT brain/MRI C-spine negative EEG revealed no epileptic activity Neurology following. Recommend myasthenia gravis lab. Negative to date. No evidence of GBS Left diaphragm remains elevated, suspect not functioning well. Requested second opinion for neurological status See neurology note. Overall strength clinically improving Need aggressive potassium and phosphorus replacement Wound remains well healed and clean Findings of bilateral diaphragm paralysis largely rules out operative injury. plan to start IVIG today per neurology. CV: Systolic heart failure unknown if acute or chronic Essential hypertension Hyperlipidemia Ejection fraction 45% on admission. Appreciate cardiac evaluation by Dr. Escobedo. No plans at this time Holding amlodipine 10 mg daily, and metoprolol tartrate 12.5 mg twice daily for hypertension Holding clonidine 0.1 twice daily and lisinopril 5 mg daily in light of hypotension/lisinopril for acute kidney injury Continue pravastatin 40 mg daily for dyslipidemia. Continue aspirin 81 mg by mouth daily. Still holding antihypertensives. Holding aspirin while bladder bleeding continues Due to increasing peripheral edema we will initiate diuretic therapy. Responding to increase diuretic therapy but need to avoid dehydration. Resp: Acute hypercapnic respiratory failure- now chronic Klebsiella oxytoca pneumonia PRVC ventilation. Ventilator bundle. Head of bed at 30 degrees Albuterol/ipratropium aerosols every 4 hours with albuterol aerosols every 2 hours as needed dyspnea Will need sniff test to assess diaphragmatic function once off vent We will consult ENT to assess vocal cords when appropriate Appreciate pulmonary input. Spontaneous breathing trial daily. 02/08 discontinued theophylline 400 mg daily acute delirium. Noted level. 04/09 3.7 Status post bronchoscopy 04/11. Thick white purulent secretions left lower lobe suction to clear. General surgery s/p percutaneous tracheostomy 04/14: Dr. Conde daily weaning of CPAP/pressure support. 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 Continue spontaneous breathing trials daily, rest on rate at night. -needs to be OOB and ambulating. made a plan today with RT and PT to walk daily with a 2-week goal of ambulating around the unit. -Also started possible transfer process to find a referral facility who evaluates and manages diaphragmatic paralysis, with possible need for diaphragm pacemaker. GI: Gastroesophageal reflux disease Transaminitis Hypoalbuminemia Ileus new RUQ pain Acute protein calorie malnutrition- severe Tube feeding at 60 cc an hour days. At home on pantoprazole 40 mg daily. Currently on lansoprazole 30 mg daily holding bowel regimen for diarrhea add fiber to diet. RUQ ultrasound -benign Follow liver function tests, lipase No evidence of liver injury. Follow prealbumin weekly. asked speech to come by and attempt swallow eval on vent with cuff up- he may be able to swallow and he is continuing to lose weight despite aggressive nutrition, so any additional nutrition would be beneficial. : hematuria- resolved Irrigation Lehman in place because of acute bladder bleeding with clots. Urine largely clear with mild billie. No clots. keep lehman x at least 1 week (through 05/03) and until patient ambulating with low risk of retention (per Dr. Isaac with urology). Endo: Hypothyroidism Hypokalemia Hypophosphatemia TSH 1.28. Continue levothyroxine 125 mg by mouth daily Sliding scale insulin if indicated to maintain euglycemia Aggressive electrolyte replacement Continue scheduled thyroxine Follow TSH Renal: Kidney injury - acute, resolved. Avoid all nephrotoxic medications Creatinine currently 1.1 Neurology consultation for evaluation this is contrast-induced nephropathy from scans 03/31. Avoid nephrotoxic medication. Lisinopril discontinued. Accurate I's and O's difficult to obtain with bladder irrigation Heme: Normocytic anemia Leukocytosis Monitor CBC daily. Follow trends per No indication for transfusion of blood proximal to this time. ID: Klebsiella oxytoca pneumonia sputum 04/01 Completed with ceftriaxone per infectious disease. Started on piperacillin/tazobactam 04/11 due to aspiration, anticipated stop date 04/19 Lumbar puncture negative. HSV negative No growth to date on other cultures aside from sputum Lung ceron remain clear No evidence of ongoing infection. FEN: Hypernatremia-resolved Hypopotassemia Hypokalemia Free water 200 cc every 6 hours. Replace electrolytes as clinically indicated per ICU electrolyte protocol. Recheck electrolytes in a.m. Increase scheduled potassium replacement 50 MEQ twice daily MSK: PT evaluate and treat up to chair daily OT evaluate and treat Access -Utilize peripheral IV. Prophylaxis -GI -lansoprazole -DVT -SCD/enoxaparin Overall impression: Remains weak and de conditioned but improving strength on spontaneous breathing trials.. We continue to work on nutrition and ventilator weaning. OOB and working with PT daily. We are presently looking at disease processes which could lead to bilateral diaphragmatic paresis. I have spent in excess of 35 of a 55 minute visit in counseling and coordination of care with the patient and patient's family. Our discussion included short and long-term prognosis of diaphragm paralysis, ongoing workup, risks benefits and alternatives of IVIG, transfer to higher level of care, referral centers, mobility, physical therapy.
[2018-04-26 11:48] LABS: Hematocrit 25.6 % (39.0-51.0); Hemoglobin 8.4 gm/dL (13.0-17.0); Mean Corpuscular HGB Conc 32.9 % (32.0-36.0); Mean Platelet Volume 9.5 fL (7.0-11.0); Platelet Count 300 th/mm3 (150-450); Red Blood Count 2.72 mil/mm3 (4.50-5.90); Red Cell Distribution Width 16.3 % (11.6-17.2); White Blood Count 12.9 th/mm3 (4.0-11.0)
[2018-04-26] MEDS: Magnesium Oxide 400 MG Tablet PO SCH ×2 (13:08→22:31)
[2018-04-26] MEDS: Sodium Chloride 0.9% Irr Bag 3,000 ML, Aminocaproic Acid Inj 3,000 MG IRRIGATION SCH ×2 (13:08)
--- NOTE | 2018-04-26 13:32 | P.PNID ---
Subjective Remarks: pt is afebrile WBC keep going up - 15.8K no fever + increased trach secretions had cystoscopy : nothing except clots CT shoed dense LLL consolidation w/o effusion Antibiotics: NONE Allergies/Adverse Reactions: Allergies Sulfa (Sulfonamide Antibiotics) Allergy (Severe, Verified 02/15/18 05:02) Nausea also flu like symptoms Objective Vital Signs 04/25/18 14:00 04/25/18 14:30 04/25/18 14:52 Temperature Pulse Rate 106 H 102 H Respiratory Rate 15 Blood Pressure 163/85 H Pulse Oximetry 95 96 96 04/25/18 15:00 04/25/18 15:30 04/25/18 16:00 Temperature Pulse Rate 101 H 108 H 108 H Respiratory Rate Blood Pressure 146/76 H 160/88 H 147/78 H Pulse Oximetry 95 96 97 04/25/18 16:30 04/25/18 17:00 04/25/18 17:30 Temperature Pulse Rate 112 H 101 H 111 H Respiratory Rate Blood Pressure 147/76 H 132/67 148/76 H Pulse Oximetry 97 96 100 04/25/18 18:00 04/25/18 18:30 04/25/18 19:00 Temperature Pulse Rate 96 H 110 H 104 H Respiratory Rate Blood Pressure 109/60 144/79 H 144/72 H Pulse Oximetry 95 98 98 04/25/18 19:24 04/25/18 19:30 04/25/18 20:00 Temperature 98.3 F Pulse Rate 92 H 91 H Respiratory Rate 15 Blood Pressure 102/64 111/64 Pulse Oximetry 100 100 100 04/25/18 20:30 04/25/18 21:00 04/25/18 21:30 Temperature Pulse Rate 94 H 92 H 90 Respiratory Rate 16 Blood Pressure 116/65 118/74 90/63 L Pulse Oximetry 99 97 97 04/25/18 22:00 04/25/18 22:30 04/25/18 23:00 Temperature Pulse Rate 90 85 96 H Respiratory Rate Blood Pressure 101/62 100/64 Pulse Oximetry 97 98 98 04/25/18 23:30 04/26/18 00:00 04/26/18 00:30 Temperature 98.3 F Pulse Rate 83 99 H 81 Respiratory Rate 18 Blood Pressure 131/64 113/63 Pulse Oximetry 98 98 98 04/26/18 01:00 04/26/18 01:20 04/26/18 01:30 Temperature Pulse Rate 81 82 Respiratory Rate 15 Blood Pressure 122/57 L 113/72 Pulse Oximetry 97 97 98 04/26/18 02:00 04/26/18 02:30 04/26/18 03:00 Temperature Pulse Rate 97 H 96 H 82 Respiratory Rate Blood Pressure 132/68 131/63 105/65 Pulse Oximetry 96 96 95 04/26/18 03:30 04/26/18 03:48 04/26/18 04:00 Temperature 98.3 F Pulse Rate 80 81 Respiratory Rate 16 15 20 Blood Pressure 106/57 L 127/63 Pulse Oximetry 97 97 96 04/26/18 04:30 04/26/18 05:00 04/26/18 05:34 Temperature Pulse Rate 98 H 93 H 93 H Respiratory Rate Blood Pressure 138/67 156/75 H 133/66 Pulse Oximetry 98 100 99 04/26/18 06:00 04/26/18 07:00 04/26/18 08:00 Temperature 99.3 F Pulse Rate 82 88 103 H Respiratory Rate 16 Blood Pressure 106/66 102/61 126/62 Pulse Oximetry 96 99 98 04/26/18 09:00 04/26/18 09:10 04/26/18 10:00 Temperature Pulse Rate 107 H 112 H Respiratory Rate 15 15 Blood Pressure 148/72 H 161/76 H Pulse Oximetry 97 97 95 04/26/18 10:20 04/26/18 10:46 04/26/18 11:10 Temperature Pulse Rate 120 H 120 H 111 H Respiratory Rate 19 16 19 Blood Pressure 161/76 H 188/91 H 132/89 Pulse Oximetry 97 99 04/26/18 11:37 04/26/18 12:00 Temperature 99.6 F Pulse Rate 114 H Respiratory Rate 18 19 Blood Pressure 181/93 H Pulse Oximetry 98 89 L Intake & Output 04/25/18 04/26/18 04/26/18 18:59 06:59 18:59 Intake Total 657 / 657 1039 / 1039 150 / 150 Output Total 1300 / 1300 Balance 656 / 656 -261 / -261 150 / 150 Weight 72.6 kg Intake: IV 100 / 100 200 / 200 150 / 150 Flexbumin 25% Inj 100 ML @ 60 100 / 100 100 / 100 mls/hr IV.SIG Q12H [facility] Rx#: [id number] Zosyn 3.375 GM Premix 3.375 gm 100 / 100 50 / 50 In 50 ml @ 100 mls/hr IV.SIG Q6H [facility] Rx#:[id number] Ancef Inj 1,000 MG In NS Inj 100 / 100 100 ML @ 100 mls/hr IV.SIG ONCE ONE Rx#:[id number] Tube Feeding 207 / 207 519 / 519 Tube Irrigant 200 / 200 120 / 120 Water Bolus Amount 200 / 200 Anesthesia Amount 150 / 150 Output: Estimated Blood Loss Urine Amount (Catheter) 1300 / 1300 3-way Urethral 1300 / 1300 Other: Bladder Irrigation Fluid - 500 Amount Instilled 3-way Urethral 3,000 Bladder Irrigation Fluid - 850 Amount Drained 3-way Urethral 4,300 Date of Last Bowel Movement 04/25/18 04/25/18 04/25/18 # Bowel Movements 4 04/11/18 18:00 Bronchial Washings - Left Lower Lobe Fungal Smear - Final No fungal elements seen 04/11/18 18:00 Bronchial Washings - Left Lower Lobe Fungal Culture - Preliminary No growth in 2 weeks 04/11/18 18:00 Bronchial Washings - Left Lower Lobe Acid Fast Bacilli Smear - Final No acid fast bacilli seen 04/11/18 18:00 Bronchial Washings - Left Lower Lobe Mycobacterial Culture - Preliminary No growth in 2 weeks 04/25/18 00:14 Sputum - Endotracheal Gram Stain - Final 04/25/18 00:14 Sputum - Endotracheal Sputum Culture - Pending Lab - Hematology Results 04/25/18 04/26/18 10:32 11:11 WBC 15.7 H 12.9 H RBC 2.65 L 2.72 L Hgb 8.3 L 8.4 L Hct 24.6 L 25.6 L MCV 92.9 94.0 MCH 31.5 31.0 MCHC 33.9 32.9 RDW 16.3 16.3 Plt Count 267 300 MPV 9.5 9.5 Lab - Chemistry Results 04/22/18 04/25/18 04/26/18 19:30 04:10 05:46 Sodium 142 144 Potassium 3.9 3.9 Chloride 107 108 H Carbon Dioxide 27.8 27.4 Anion Gap 7 9 BUN 22 H 30 H Creatinine 0.60 0.79 Estimated GFR Greater than 89 Greater than 89 Random Glucose 92 108 H Calcium 8.6 8.8 Phosphorus 2.5 2.9 Magnesium 2.4 2.4 Albumin (PEP) 3.26 L Albumin/Globulin Ratio 1.44 Dwdii-3-Kiskyzdzy 0.26 Tegth-8-Gwihfukcu 0.75 Beta Globulins 0.62 Gamma Globulins 0.62 PEP Pathologist Comment Imaging: ITS Impressions Head CT 03/31/18 12:16 CONCLUSION: 1. Negative CT Head non contrast. . Chest CTA 03/31/18 14:39 CONCLUSION: 1. Bibasilar atelectatic changes, left greater than right. No confluent infiltrate. 2. No pulmonary embolus. 3. Atherosclerotic calcification of the coronary arteries. Abdomen/Bladder Ultrasound 04/10/18 08:05 CONCLUSION: 1. Probable complex cyst coming off the right lower pole kidney appears smaller since 2017 CT examination of the abdomen. Abdomen X-Ray 04/15/18 05:07 CONCLUSION: Dobbhoff tube tip now seen in the stomach. Gallbladder Ultrasound 04/16/18 00:00 CONCLUSION: 1. Minimal prominence of the gallbladder wall. No pericholecystic fluid is seen no stones are evident. 2. Increased echogenicity of the liver suggesting fatty infiltration. Abdomen/Pelvis CT 04/19/18 10:15 CONCLUSION: 1. Tiny 1 mm calculus now noted in the posterior left side of the bladder which could represent a small bladder calculi or distal ureteral calculus. 2. The left kidney appears unremarkable and there is no hydronephrosis. The ureters appear within normal limits. 3. Single tiny nonobstructing right renal calculus without change. The previously noted complex cystic lesion in the lower pole is faintly visualized. 4. Nonspecific bowel gas pattern which may represent an ileus. Chest Fluoroscopy 04/21/18 00:00 CONCLUSION: No diaphragmatic motion on either side. Respiratory pattern suspicious for high neurological deficit above C5. Repeat MRI of the brain, cervical and without and with contrast while ventilated to exclude motion artifact would be very helpful. Cervical Spine MRI 04/24/18 00:00 CONCLUSION: 1. Subtle increased signal in the cord beginning at the C4 level extending distally. There is no abnormal contrast enhancement. 2. This is seen best on the sagittal IR image set. Head MRI 04/24/18 00:00 CONCLUSION: 1. Negative MRI of the brain without and with contrast Chest X-Ray 04/25/18 06:00 CONCLUSION: No significant interval change Chest CT 04/26/18 00:00 CONCLUSION: Slight improvement in aeration. Physical Exam: GENERAL: NAD awake, unint'd SKIN: Warm and dry. NECK: Trach in place, + some secretons. No JVD. CARDIOVASCULAR: Regular , rate, rhtyms RESPIRATORY: No accessory muscle use. Clear to auscultation. Breath sounds equal, decreased R base GASTROINTESTINAL: Abdomen soft, non-tender, nondistended. Hepatic and splenic margins not palpable. : lehman in place, urine is lighly pink and clear MUSCULOSKELETAL: Extremities without clubbing, cyanosis, NEUROLOGICAL: awake, alert PSYCHIATRIC: calm Assessment and Plan - Plan C spine fusion Hypercapnia difficulty breathing developped after surgery Kleb oxytoca PNA signs of PNA resolved cliniclaly and radiologically Acute VDRF, improving fever, low grade: resolved No e/o [employer]IST infx New leukocytosis - resolved ARF - resolved Aspiration PNA today's CXR Minimal bibasilar densities, sp abx : completed 2/6 Sepsis, improving abx associated diarrhea C.diff negative 2/2 Gu bleeding B/l phernic nerve paralysis: post viral GBS will not present with islated diaphragm weakness but also will see other muscel groups involvemtn low risk for Lyme dz exposure Persistent LLL PNA, restarted on abx cont Zosyn will adjust per clx fu sp[utum clx follow WBC follw SPEP, UPEP dw A Greeen
--- NOTE | 2018-04-26 19:13 | P.PN ---
Subjective Interval history: Remains on ventilator support and on CPAP 09/22 and FiO2 35% Tolerates tube feeding. Was able to stand up and take some steps today. Plans being made by neurology to start IVIG. Further discussions were held about referral to tertiary care center who evaluate diaphragmatic paralysis. Back on antibiotics per ID service Physical Exam Vital signs: Vital Signs 04/25/18 19:24 04/25/18 19:30 04/25/18 20:00 Temperature 98.3 F Pulse Rate 92 H 91 H Respiratory Rate 15 Blood Pressure 102/64 111/64 Pulse Oximetry 100 100 100 04/25/18 20:30 04/25/18 21:00 04/25/18 21:30 Temperature Pulse Rate 94 H 92 H 90 Respiratory Rate 16 Blood Pressure 116/65 118/74 90/63 L Pulse Oximetry 99 97 97 04/25/18 22:00 04/25/18 22:30 04/25/18 23:00 Temperature Pulse Rate 90 85 96 H Respiratory Rate Blood Pressure 101/62 100/64 Pulse Oximetry 97 98 98 04/25/18 23:30 04/26/18 00:00 04/26/18 00:30 Temperature 98.3 F Pulse Rate 83 99 H 81 Respiratory Rate 18 Blood Pressure 131/64 113/63 Pulse Oximetry 98 98 98 04/26/18 01:00 04/26/18 01:20 04/26/18 01:30 Temperature Pulse Rate 81 82 Respiratory Rate 15 Blood Pressure 122/57 L 113/72 Pulse Oximetry 97 97 98 04/26/18 02:00 04/26/18 02:30 04/26/18 03:00 Temperature Pulse Rate 97 H 96 H 82 Respiratory Rate Blood Pressure 132/68 131/63 105/65 Pulse Oximetry 96 96 95 04/26/18 03:30 04/26/18 03:48 04/26/18 04:00 Temperature 98.3 F Pulse Rate 80 81 Respiratory Rate 16 15 20 Blood Pressure 106/57 L 127/63 Pulse Oximetry 97 97 96 04/26/18 04:30 04/26/18 05:00 04/26/18 05:34 Temperature Pulse Rate 98 H 93 H 93 H Respiratory Rate Blood Pressure 138/67 156/75 H 133/66 Pulse Oximetry 98 100 99 04/26/18 06:00 04/26/18 07:00 04/26/18 08:00 Temperature 99.3 F Pulse Rate 82 88 103 H Respiratory Rate 16 Blood Pressure 106/66 102/61 126/62 Pulse Oximetry 96 99 98 04/26/18 09:00 04/26/18 09:10 04/26/18 10:00 Temperature Pulse Rate 107 H 112 H Respiratory Rate 15 15 Blood Pressure 148/72 H 161/76 H Pulse Oximetry 97 97 95 04/26/18 10:20 04/26/18 10:46 04/26/18 11:10 Temperature Pulse Rate 120 H 120 H 111 H Respiratory Rate 19 16 19 Blood Pressure 161/76 H 188/91 H 132/89 Pulse Oximetry 97 99 04/26/18 11:37 04/26/18 12:00 04/26/18 12:49 Temperature 99.6 F Pulse Rate 114 H 110 H Respiratory Rate 18 19 Blood Pressure 181/93 H 159/75 H Pulse Oximetry 98 89 L 93 L 04/26/18 13:00 04/26/18 14:00 04/26/18 15:00 Temperature Pulse Rate 109 H 117 H 120 H Respiratory Rate Blood Pressure 131/67 147/85 H 153/98 H Pulse Oximetry 93 L 94 L 94 L 04/26/18 15:23 04/26/18 16:00 04/26/18 17:00 Temperature Pulse Rate 117 H 123 H Respiratory Rate 16 Blood Pressure 135/69 153/75 H Pulse Oximetry 96 92 L 96 Intake & Output 04/26/18 04/26/18 04/27/18 06:59 18:59 06:59 Intake Total 1039 / 1039 200 / 200 Output Total 1300 / 1300 Balance -261 / -261 200 / 200 Weight 72.6 kg Intake: IV 200 / 200 200 / 200 Flexbumin 25% Inj 100 ML @ 60 100 / 100 100 / 100 mls/hr IV.SIG Q12H [facility] Rx#: [id number] Zosyn 3.375 GM Premix 3.375 gm 100 / 100 100 / 100 In 50 ml @ 100 mls/hr IV.SIG Q6H [facility] Rx#:[id number] Tube Feeding 519 / 519 Tube Irrigant 120 / 120 Water Bolus Amount 200 / 200 Output: Urine Amount (Catheter) 1300 / 1300 3-way Urethral 1300 / 1300 Other: Bladder Irrigation Fluid - Amount Instilled 3-way Urethral 3,000 Bladder Irrigation Fluid - Amount Drained 3-way Urethral 4,300 Date of Last Bowel Movement 04/25/18 04/25/18 Narrative: still on vent trach GENERAL: Elderly white male alert on vent support with trach SKIN: Warm and dry. HEAD: Atraumatic. Normocephalic. EYES: Pupils equal and round. No scleral icterus. No injection or drainage. ENT: No nasal bleeding or discharge. Mucous membranes pink and moist. NECK: Trachea midline. No JVD. Trach tube in place CARDIOVASCULAR: Regular rate and rhythm. RESPIRATORY: No accessory muscle use. Clear to auscultation. Breath sounds equal bilaterally. GASTROINTESTINAL: Abdomen soft, non-tender, nondistended. Hepatic and splenic margins not palpable. MUSCULOSKELETAL: Extremities without clubbing, cyanosis, or edema. No obvious deformities. NEUROLOGICAL: Awake and alert. No obvious cranial nerve deficits. Motor grossly within normal limits. . PSYCHIATRIC: Appropriate mood and affect. - Urinary Catheter Management Indwelling Urethral Catheter Cath placed during this visit: yes, but has since been removed by the nurse Reason for continuing: Continue criteria not met Insertion date: 04/10/18 Insertion time: 01:45 Removal date: 04/15/18 Removal time: 17:05 Condom Cath placed during this visit: no 3-way Urethral Cath placed during this visit: yes Reason for continuing: Gross Hematuria Insertion date: 04/25/18 Insertion time: 11:20 Results - Labs CBC & Chem 7: 04/26/18 11:11 04/26/18 05:46 Laboratory Results - last 24 hr 04/25/18 04/26/18 04/26/18 16:52 05:46 11:11 WBC 12.9 H RBC 2.72 L Hgb 8.4 L Hct 25.6 L MCV 94.0 MCH 31.0 MCHC 32.9 RDW 16.3 Plt Count 300 MPV 9.5 Sodium 144 Potassium 3.9 Chloride 108 H Carbon Dioxide 27.4 Anion Gap 9 BUN 30 H Creatinine 0.79 Estimated GFR Greater than 89 Random Glucose 108 H Calcium 8.8 Phosphorus 2.9 Magnesium 2.4 Stl C.difficile DNA Amp Negative St C. diff Tox Epid 027 Negative Microbiology 04/25/18 00:14 Sputum - Endotracheal Gram Stain - Final 04/25/18 00:14 Sputum - Endotracheal Sputum Culture - Preliminary gram negative rods - Imaging Impressions Chest CT 04/26/18 00:00 CONCLUSION: Slight improvement in aeration. Assessment and Plan - Assessment (1) Respiratory failure Code(s): J96.90 - Respiratory failure, unspecified, unspecified whether with hypoxia or hypercapnia Status: Acute (2) Atelectasis Code(s): J98.11 - Atelectasis Status: Acute (3) Neck pain, chronic Code(s): M54.2 - Cervicalgia; G89.29 - Other chronic pain Status: Chronic (4) Other cervical disc degeneration at C5-C6 level Code(s): M50.322 - Other cervical disc degeneration at C5-C6 level Status: Chronic (5) Protrusion of cervical intervertebral disc Code(s): M50.20 - Other cervical disc displacement, unspecified cervical region Status: Chronic (6) Adult failure to thrive Code(s): R62.7 - Adult failure to thrive Status: Acute (7) Shortness of breath Code(s): R06.02 - Shortness of breath Status: Acute (8) Weakness generalized Code(s): R53.1 - Weakness Status: Acute (9) Acute hyponatremia Code(s): E87.1 - Hypo-osmolality and hyponatremia Status: Acute (10) Ventilator dependent Code(s): Z99.11 - Dependence on respirator [ventilator] status Status: Acute - Plan 1 CPAP during the day with FiO2 of 35% up to 10 -hours 2 wean FiO2 to keep sats greater than 92 3. PEG tube soon if he fails swallow study. 4. DuoNeb nebs every 6 hours as needed 5. No sedation 6. Tracheal lavage and suction as needed 7. Continue Lovenox 40 mg subcu daily 8. Tube feeds at 55 cc/h 9. CBC BMP in a.m. 10. Place on AC rate of 12 at night 11. PT evaluation 12. Up in chair as tolerated
[2018-04-27] MEDS: Pyridostigmine Bromide 60 MG Tablet PO SCH ×6 (00:10→20:59)
[2018-04-27] MEDS: Oral Hygiene Kit OROPHARYNG SCH ×4 (00:10→16:18)
[2018-04-27] MEDS: Artificial Tears Opth Drops 15 ML Bottle EACH EYE SCH ×3 (00:10→16:18)
[2018-04-27] MEDS: Piperacil/Tazo 3.375 GM Premix 3.375 GM/50 ML PIGGYBACK IV.SIG SCH ×3 (01:50→13:38)
[2018-04-27 06:19] LABS: Anion Gap 7 meq/L (5-15); Blood Urea Nitrogen 29 mg/dL (7-18); Calcium 9.1 mg/dL (8.5-10.1); Carbon Dioxide 29.5 meq/L (21.0-32.0); Chloride 110 meq/L (98-107); Glomerular Filtration Rate Greater Than 89 mL/min (>89); Glucose,Random 112 mg/dL (74-106); Magnesium 2.5 mg/dL (1.5-2.5); Phosphorus 2.8 mg/dL (2.5-4.9); Potassium 4.1 meq/L (3.5-5.1); Sodium 146 meq/L (136-145)
[2018-04-27] MEDS: hydrALAZINE 50 MG Tablet PO SCH ×3 (06:20→21:08)
[2018-04-27] MEDS: Albumin Human 25% Inj 100 ML IV.SIG SCH ×2 (06:20→19:00)
[2018-04-27] MEDS: Levothyroxine 125 MCG Tablet PO SCH (06:20)
[2018-04-27] MEDS: Psyllium Husk SF 3.4 GM in 5.8 GM Packet NG/OG SCH (09:03)
[2018-04-27] MEDS: Potassium Chloride Liq 20 MEQ/15 ML UDC PO SCH ×2 (09:32→21:08)
[2018-04-27] MEDS: Chlorhexidine 0.12% Oral Kit 15 ML UDC OROPHARYNG SCH ×2 (09:32→20:59)
[2018-04-27] MEDS: Sertraline 100 MG Tablet PO SCH (09:33)
[2018-04-27] MEDS: IVIG (Immune Globulin) Inj 30 GM in Syringe/Bag 1 EACH IV.SIG SCH (09:34)
[2018-04-27] MEDS: Sodium Chloride 0.9% Irr Bag 3,000 ML, Aminocaproic Acid Inj 3,000 MG IRRIGATION SCH ×2 (10:17)
[2018-04-27] MEDS: Magnesium Oxide 400 MG Tablet PO SCH ×2 (12:34→23:50)
--- NOTE | 2018-04-27 15:18 | P.PNID ---
Subjective Remarks: pt is afebrile On 100% FiO2 growing PSAE / S P Antibiotics: zosyn 3.375 Allergies/Adverse Reactions: Allergies Sulfa (Sulfonamide Antibiotics) Allergy (Severe, Verified 02/15/18 05:02) Nausea also flu like symptoms Objective Vital Signs 04/26/18 15:23 04/26/18 16:00 04/26/18 17:00 Temperature Pulse Rate 117 H 123 H Respiratory Rate 16 Blood Pressure 135/69 153/75 H Pulse Oximetry 96 92 L 96 04/26/18 18:00 04/26/18 19:00 04/26/18 19:54 Temperature Pulse Rate 112 H 104 H Respiratory Rate 18 15 Blood Pressure 127/61 125/64 Pulse Oximetry 95 96 97 04/26/18 20:00 04/26/18 21:00 04/26/18 22:00 Temperature 98.2 F Pulse Rate 100 H 112 H 91 H Respiratory Rate 15 16 15 Blood Pressure 126/66 155/72 H 124/64 Pulse Oximetry 98 99 100 04/26/18 23:00 04/27/18 00:00 04/27/18 01:00 Temperature 98.8 F Pulse Rate 89 106 H 94 H Respiratory Rate 15 Blood Pressure 123/60 148/71 H 123/61 Pulse Oximetry 99 96 04/27/18 01:06 04/27/18 02:00 04/27/18 03:00 Temperature Pulse Rate 92 H 89 Respiratory Rate 14 Blood Pressure 123/70 130/70 Pulse Oximetry 97 96 97 04/27/18 03:56 04/27/18 04:00 04/27/18 05:00 Temperature 98.7 F Pulse Rate 90 96 H Respiratory Rate 13 Blood Pressure 148/74 H Pulse Oximetry 95 95 97 04/27/18 06:00 04/27/18 07:00 04/27/18 07:58 Temperature Pulse Rate 89 98 H Respiratory Rate 14 Blood Pressure 145/71 H 163/78 H Pulse Oximetry 95 97 99 04/27/18 08:00 04/27/18 09:00 04/27/18 09:34 Temperature Pulse Rate 101 H 93 H 105 H Respiratory Rate 16 Blood Pressure 176/84 H 166/81 H 166/81 H Pulse Oximetry 99 97 04/27/18 10:00 04/27/18 11:00 04/27/18 11:11 Temperature Pulse Rate 108 H 109 H Respiratory Rate Blood Pressure 163/83 H 153/83 H Pulse Oximetry 92 L 100 100 04/27/18 12:00 04/27/18 12:07 04/27/18 13:00 Temperature Pulse Rate 101 H 96 H Respiratory Rate 14 Blood Pressure 168/80 H 142/83 H Pulse Oximetry 99 96 91 L Intake & Output 04/26/18 04/27/18 04/27/18 18:59 06:59 18:59 Intake Total 1268 / 1268 1195 / 1195 150 / 150 Output Total 2580 / 2580 800 / 800 Balance -1312 / -1312 395 / 395 150 / 150 Weight 72.6 kg Intake: IV 200 / 200 500 / 500 150 / 150 Flexbumin 25% Inj 100 ML @ 60 100 / 100 100 / 100 100 / 100 mls/hr IV.SIG Q12H [facility] Rx#: [id number] Privigen Inj 30 GM In Bag/ 300 / 300 Syringe 1 EACH @ 37.5 mls/hr IV .SIG Q24H [facility] Rx#:[id number] Zosyn 3.375 GM Premix 3.375 gm 100 / 100 100 / 100 50 / 50 In 50 ml @ 100 mls/hr IV.SIG Q6H [facility] Rx#:[id number] Tube Feeding 548 / 548 595 / 595 Tube Irrigant 120 / 120 100 / 100 Water Bolus Amount 400 / 400 Output: Urine Amount (Catheter) 2580 / 2580 800 / 800 3-way Urethral 2580 / 2580 800 / 800 Other: Bladder Irrigation Fluid - Amount Instilled 3-way Urethral 0 Bladder Irrigation Fluid - Amount Drained 3-way Urethral 0 Date of Last Bowel Movement 04/25/18 04/25/18 04/25/18 04/25/18 00:14 Sputum - Endotracheal Gram Stain - Final 04/25/18 00:14 Sputum - Endotracheal Sputum Culture - Preliminary Pseudomonas species 04/11/18 18:00 Bronchial Washings - Left Lower Lobe Fungal Smear - Final No fungal elements seen 04/11/18 18:00 Bronchial Washings - Left Lower Lobe Fungal Culture - Preliminary No growth in 2 weeks 04/11/18 18:00 Bronchial Washings - Left Lower Lobe Acid Fast Bacilli Smear - Final No acid fast bacilli seen 04/11/18 18:00 Bronchial Washings - Left Lower Lobe Mycobacterial Culture - Preliminary No growth in 2 weeks Lab - Hematology Results 04/26/18 11:11 WBC 12.9 H RBC 2.72 L Hgb 8.4 L Hct 25.6 L MCV 94.0 MCH 31.0 MCHC 32.9 RDW 16.3 Plt Count 300 MPV 9.5 Lab - Chemistry Results 04/22/18 04/26/18 04/27/18 19:30 05:46 04:31 Sodium 144 146 H Potassium 3.9 4.1 Chloride 108 H 110 H Carbon Dioxide 27.4 29.5 Anion Gap 9 7 BUN 30 H 29 H Creatinine 0.79 0.77 Estimated GFR Greater than 89 Greater than 89 Random Glucose 108 H 112 H Calcium 8.8 9.1 Phosphorus 2.9 2.8 Magnesium 2.4 2.5 PEP Pathologist Comment Imaging: ITS Impressions Head CT 03/31/18 12:16 CONCLUSION: 1. Negative CT Head non contrast. . Chest CTA 03/31/18 14:39 CONCLUSION: 1. Bibasilar atelectatic changes, left greater than right. No confluent infiltrate. 2. No pulmonary embolus. 3. Atherosclerotic calcification of the coronary arteries. Abdomen/Bladder Ultrasound 04/10/18 08:05 CONCLUSION: 1. Probable complex cyst coming off the right lower pole kidney appears smaller since 2017 CT examination of the abdomen. Abdomen X-Ray 04/15/18 05:07 CONCLUSION: Dobbhoff tube tip now seen in the stomach. Gallbladder Ultrasound 04/16/18 00:00 CONCLUSION: 1. Minimal prominence of the gallbladder wall. No pericholecystic fluid is seen no stones are evident. 2. Increased echogenicity of the liver suggesting fatty infiltration. Abdomen/Pelvis CT 04/19/18 10:15 CONCLUSION: 1. Tiny 1 mm calculus now noted in the posterior left side of the bladder which could represent a small bladder calculi or distal ureteral calculus. 2. The left kidney appears unremarkable and there is no hydronephrosis. The ureters appear within normal limits. 3. Single tiny nonobstructing right renal calculus without change. The previously noted complex cystic lesion in the lower pole is faintly visualized. 4. Nonspecific bowel gas pattern which may represent an ileus. Chest Fluoroscopy 04/21/18 00:00 CONCLUSION: No diaphragmatic motion on either side. Respiratory pattern suspicious for high neurological deficit above C5. Repeat MRI of the brain, cervical and without and with contrast while ventilated to exclude motion artifact would be very helpful. Cervical Spine MRI 04/24/18 00:00 CONCLUSION: 1. Subtle increased signal in the cord beginning at the C4 level extending distally. There is no abnormal contrast enhancement. 2. This is seen best on the sagittal IR image set. Head MRI 04/24/18 00:00 CONCLUSION: 1. Negative MRI of the brain without and with contrast Chest X-Ray 04/25/18 06:00 CONCLUSION: No significant interval change Chest CT 04/26/18 00:00 CONCLUSION: Slight improvement in aeration. Physical Exam: GENERAL: NAD awake, SKIN: Warm and dry. NECK: Trach in place, + some secretons. No JVD. CARDIOVASCULAR: Regular , rate, rhtyms RESPIRATORY: No accessory muscle use. Ronchi and wheezing to auscultation Breath sounds equal, decreased R base GASTROINTESTINAL: Abdomen soft, non-tender, nondistended. Hepatic and splenic margins not palpable. : lehman in place, urine is lighly pink and clear MUSCULOSKELETAL: Extremities without clubbing, cyanosis, NEUROLOGICAL: awake, alert PSYCHIATRIC: calm Assessment and Plan - Plan C spine fusion Hypercapnia difficulty breathing developped after surgery Kleb oxytoca PNA signs of PNA resolved cliniclaly and radiologically Acute VDRF, improving fever, low grade: resolved No e/o [employer] infx New leukocytosis - resolved ARF - resolved Aspiration PNA today's CXR Minimal bibasilar densities, sp abx : completed 2/6 Sepsis, improving abx associated diarrhea C.diff negative 2/2 Gu bleeding B/l phernic nerve paralysis: post viral GBS will not present with islated diaphragm weakness but also will see other muscel groups involvemtn low risk for Lyme dz exposure Persistent LLL PNA, restarted on abx dc Zosyn start Meropenem will adjust per clx fu sp[utum clx follow WBC follw SPEP, UPEP dw A Greeen
[2018-04-27] MEDS ORDERED: ASP: Other exception documentation: ( ) OTHER PRN (16:14)
--- NOTE | 2018-04-27 18:37 | P.PN ---
Subjective Interval history: Doing well and seems more cheerful. Walked the halls today with portable vent. O2 sats 96 and 35% FiO2 and CPAP 7 x 12. On IVIG infusions and will probably go for evaluation at [facility]. Physical Exam Vital signs: Vital Signs 04/26/18 19:00 04/26/18 19:54 04/26/18 20:00 Temperature 98.2 F Pulse Rate 104 H 100 H Respiratory Rate 15 15 Blood Pressure 125/64 126/66 Pulse Oximetry 96 97 98 04/26/18 21:00 04/26/18 22:00 04/26/18 23:00 Temperature Pulse Rate 112 H 91 H 89 Respiratory Rate 16 15 15 Blood Pressure 155/72 H 124/64 123/60 Pulse Oximetry 99 100 99 04/27/18 00:00 04/27/18 01:00 04/27/18 01:06 Temperature 98.8 F Pulse Rate 106 H 94 H Respiratory Rate 14 Blood Pressure 148/71 H 123/61 Pulse Oximetry 96 97 04/27/18 02:00 04/27/18 03:00 04/27/18 03:56 Temperature Pulse Rate 92 H 89 Respiratory Rate 13 Blood Pressure 123/70 130/70 Pulse Oximetry 96 97 95 04/27/18 04:00 04/27/18 05:00 04/27/18 06:00 Temperature 98.7 F Pulse Rate 90 96 H 89 Respiratory Rate Blood Pressure 148/74 H 145/71 H Pulse Oximetry 95 97 95 04/27/18 07:00 04/27/18 07:58 04/27/18 08:00 Temperature Pulse Rate 98 H 101 H Respiratory Rate 14 Blood Pressure 163/78 H 176/84 H Pulse Oximetry 97 99 99 04/27/18 09:00 04/27/18 09:34 04/27/18 10:00 Temperature Pulse Rate 93 H 105 H 108 H Respiratory Rate 16 Blood Pressure 166/81 H 166/81 H 163/83 H Pulse Oximetry 97 92 L 04/27/18 11:00 04/27/18 11:11 04/27/18 12:00 Temperature Pulse Rate 109 H 101 H Respiratory Rate Blood Pressure 153/83 H 168/80 H Pulse Oximetry 100 100 99 04/27/18 12:07 04/27/18 13:00 04/27/18 14:00 Temperature Pulse Rate 96 H 86 Respiratory Rate 14 Blood Pressure 142/83 H 117/64 Pulse Oximetry 96 91 L 95 04/27/18 15:00 04/27/18 15:23 04/27/18 16:00 Temperature Pulse Rate 88 103 H Respiratory Rate 17 Blood Pressure 124/66 167/81 H Pulse Oximetry 98 97 97 04/27/18 16:56 04/27/18 17:00 04/27/18 18:00 Temperature Pulse Rate 101 H 100 H 91 H Respiratory Rate Blood Pressure 166/81 H 168/86 H 179/84 H Pulse Oximetry 97 98 98 Intake & Output 04/26/18 04/27/18 04/27/18 18:59 06:59 18:59 Intake Total 1268 / 1268 1195 / 1195 1017 / 1017 Output Total 2580 / 2580 800 / 800 1750 / 1750 Balance -1312 / -1312 395 / 395 -733 / -733 Weight 72.6 kg Intake: IV 200 / 200 500 / 500 150 / 150 Flexbumin 25% Inj 100 ML @ 60 100 / 100 100 / 100 100 / 100 mls/hr IV.SIG Q12H GIGI Rx#: [id number] Privigen Inj 30 GM In Bag/ 300 / 300 Syringe 1 EACH @ 37.5 mls/hr IV .SIG Q24H GIGI Rx#:[id number] Zosyn 3.375 GM Premix 3.375 gm 100 / 100 100 / 100 50 / 50 In 50 ml @ 100 mls/hr IV.SIG Q6H GIGI Rx#:[id number] Tube Feeding 548 / 548 595 / 595 467 / 467 Tube Irrigant 120 / 120 100 / 100 Water Bolus Amount 400 / 400 400 / 400 Output: Urine Amount (Catheter) 2580 / 2580 800 / 800 1750 / 1750 3-way Urethral 2580 / 2580 800 / 800 1750 / 1750 Other: Bladder Irrigation Fluid - Amount Instilled 3-way Urethral 0 Bladder Irrigation Fluid - Amount Drained 3-way Urethral 0 Date of Last Bowel Movement 04/25/18 04/25/18 04/25/18 Narrative: GENERAL: Elderly white male alert on vent support with trach SKIN: Warm and dry. HEAD: Atraumatic. Normocephalic. EYES: Pupils equal and round. No scleral icterus. No injection or drainage. ENT: No nasal bleeding or discharge. Mucous membranes pink and moist. NECK: Trachea midline. No JVD. Trach tube in place CARDIOVASCULAR: Regular rate and rhythm. RESPIRATORY: No accessory muscle use. Few wheezes anteriorly and breath sounds equal bilaterally. GASTROINTESTINAL: Abdomen soft, non-tender, nondistended. Hepatic and splenic margins not palpable. MUSCULOSKELETAL: Extremities without clubbing, cyanosis, or edema. No obvious deformities. NEUROLOGICAL: Awake and alert. Motor grossly within normal limits. . PSYCHIATRIC: Appropriate mood and affect. - Urinary Catheter Management Indwelling Urethral Catheter Cath placed during this visit: yes, but has since been removed by the nurse Reason for continuing: Continue criteria not met Insertion date: 04/10/18 Insertion time: 01:45 Removal date: 04/15/18 Removal time: 17:05 Condom Cath placed during this visit: no 3-way Urethral Cath placed during this visit: yes Reason for continuing: Gross Hematuria Insertion date: 04/25/18 Insertion time: 11:20 Results - Labs CBC & Chem 7: 04/26/18 11:11 04/27/18 04:31 Laboratory Results - last 24 hr 04/27/18 04:31 Sodium 146 H Potassium 4.1 Chloride 110 H Carbon Dioxide 29.5 Anion Gap 7 BUN 29 H Creatinine 0.77 Estimated GFR Greater than 89 Random Glucose 112 H Calcium 9.1 Phosphorus 2.8 Magnesium 2.5 Microbiology 04/25/18 00:14 Sputum - Endotracheal Gram Stain - Final 04/25/18 00:14 Sputum - Endotracheal Sputum Culture - Preliminary Pseudomonas species Assessment and Plan - Assessment (1) Respiratory failure Code(s): J96.90 - Respiratory failure, unspecified, unspecified whether with hypoxia or hypercapnia Status: Acute (2) Atelectasis Code(s): J98.11 - Atelectasis Status: Acute (3) Neck pain, chronic Code(s): M54.2 - Cervicalgia; G89.29 - Other chronic pain Status: Chronic (4) Other cervical disc degeneration at C5-C6 level Code(s): M50.322 - Other cervical disc degeneration at C5-C6 level Status: Chronic (5) Protrusion of cervical intervertebral disc Code(s): M50.20 - Other cervical disc displacement, unspecified cervical region Status: Chronic (6) Adult failure to thrive Code(s): R62.7 - Adult failure to thrive Status: Acute (7) Shortness of breath Code(s): R06.02 - Shortness of breath Status: Acute (8) Weakness generalized Code(s): R53.1 - Weakness Status: Acute (9) Acute hyponatremia Code(s): E87.1 - Hypo-osmolality and hyponatremia Status: Acute (10) Ventilator dependent Code(s): Z99.11 - Dependence on respirator [ventilator] status Status: Acute - Plan 1 CPAP during the day with FiO2 of 35% up to 12 -hours 2 wean FiO2 to keep sats greater than 92 3. IVIG infusion as ordered 4. DuoNeb nebs every 6 hours as needed 5. Chest x-ray in a.m. 6. Tracheal lavage and suction as needed 7. Continue Lovenox 40 mg subcu daily 8. Tube feeds at 55 cc/h 9. CBC BMP in a.m. 10. Place on AC rate of 12 at night 11. PT evaluation 12. Up in chair as tolerated
--- NOTE | 2018-04-27 19:04 | P.PNCC ---
Subjective Subjective Remarks/Hospital Course: This 67-year-old came into the emergency room today with his and daughter. On 02/13/2018, he had a microdiscectomy, C5-C6, by Dr. Schwarz. He was discharged home the next day. A few days after, he had not been feeling well, short of breath, disoriented, generally weak, symptoms were getting worse, disorientation was worse. He was referred to emergency department by his primary care physician for an evaluation. In the ED he was found to be in severe hypercarbic respiratory acidosis and was intubated by ED attending. 04/01: CO2 retention corrected. Remains mildly alkalotic due to chronic CO2 elevation. PH normalized. Still requiring vasopressor therapy with norepinephrine. Broad-spectrum antibiotic coverage started. Lumbar puncture performed with opening pressure 20 and crystal-clear fluid, sent for cell counts , chemistries and culture. HSV included. One extra tube sent for future studies if necessary. Ammonia level 71 - repeat daily. 04/02: CSF appears benign. Repeat ammonia level normal. Gamma GT normal. Cardiac echo estimated of 45% ejection fraction requires a little additional investigation -patient has been chronically short of breath for several weeks now. Leukocytosis and left shift persists. Gram-positive cocci and white cells seen in sputum. This man clearly became acutely and critically ill - exact cause still eludes us. 04/03: Leukocytosis improved. Remains quite rigid when stimulated. Continues to move 4 limbs with purpose and follows commands with 4 limbs. Sputum demonstrates white blood cells and gram-negative rods. 04/04: Improved color and perfusion. Extubated yesterday afternoon but failed after about 45 minutes -developed somnolence then obtundation, appeared to be having difficulty taking a breath, concern for vocal cord dysfunction. On reintubation the cord edges were irregular but otherwise normal in appearance. I could not assess cord function as patient was not alert enough to cooperate with commands. We will definitely pursue possibilities of vocal cord dysfunction and or phrenic nerve paralysis once we get him extubated. Ideally, a sniff test under fluoroscopy would demonstrate any paradoxical diaphragm motion. 04/05: Afebrile. Neurologically appears intact. Daughter concerned about "appears distant" however on 40 mcg/kg/min of propofol and 250 mcg an hour fentanyl. No bowel movement since admission. Tube feeding only at 20 cc an hour. 04/06: Afebrile. Neurologically intact. Following commands.. Positive BM. Labile blood pressures yesterday. Replace potassium currently. 04/07: Patient writing notes today. Chest x-ray clear. Elevated left diaphragm , probably dysfunctional. Continued encephalopathy and generalized weakness chris very concerning. We will try Aminophyllin today to see if we can get some diaphragm and central nervous system stimulation. 04/08: Started on theophylline yesterday. Check level in a.m. Will attempt PSV trial today. Noted pulmonology requests possible T-bar with ABG when appropriate. Afebrile. 04/09: T-max 100. theophylline currently 3.7. Currently on CPAP trials. 02/18. 45%. Check ABG at 10 today. Desaturated yesterday currently back at 40%. 04/10: Resting in bed. Episode of nausea overnight. Negative workup. Evaluated positive BM 04/08. Patient more agitated overnight. Propofol discontinued due to hypotension. Currently on fentanyl drip. Theophylline. Creatinine currently 2.0 we will consult nephrology. Discontinue lisinopril. Receiving one half normal saline bolus currently. 04/11: T-max 101.1. Increasing O2 records.Increasing white blood cell count. For the cuff is overinflated to palpate the vocal cords. Leak by examination. Will change ET tube in place central line today. Empirically start antibiotics for aspiration. Not tolerating tube feeds and currently to low inner wall suction. Check KUB after ET tube exchange and central line placement. Restart metoclopramide. Positive BMs. 04/12: Yesterday, CT thorax revealed collapsed left lower lung. Status post bronchoscopy with reinflation of lung. Better saturations today. Continues with small and large bowel colonic distention. Right: 11 cm. GI is following. Might need decompression. Current orogastric tube to low intermittent wall suction. 04/13: Improved small and large bowel colonic distention. Down to 8 cm long family discussion. We will perform percutaneous tracheostomy and PEG tube as well. Request second neurological opinion. In better spirits today. 04/14: no changes. awakens and follows commands. plan for trach today. 2/2: s/p trach yesterday. awake and alert. calm. looks more comfortable than yesterday. did not tolerate PRVC today, but tolerates PSV with high support (24/ 5/35%). 2/3: complaining of new RUQ pain. ?+Fry's sign. labs wnl today. no other complaints. denies nausea or vomiting. still has diarrhea, but this is slowing down after holding bowel regimen. ROS otherwise negative. 04/17: Gallbladder ultrasound appears benign. No new complaints. 04/18: Remains on the vent. Tolerated approximately 7 hours of CPAP yesterday with high PS. Still complaining of diarrhea. Most likely induced by tube feeds. Potassium remains low at 2.7. Potassium replacement in addition to protocol given followed by KCl 20 meq twice daily scheduled. Probably GI loss 04/19: Clinically improving tolerating CPAP better today. Pressure support reduced to 12. Near normal strength normal reflexes normal sensation. Continue aggressive potassium and phosphorus replacement. 04/20: Irrigation Lehman placed and bladder for removal of large blood clots. Will delay bedside sniff test until urinary problems clear up. Anticipate indirect laryngoscopy to nasal approach soon. 04/21: Bleeding from Lehman catheter markedly reduced, just pink fluid now. Awake and alert this morning. We will attempt sniff test this morning under fluoroscopy. Update: Sniff test performed under fluoroscopy by Dr. Ritesh Damon shows no diaphragmatic function on either left or right side. The patient participated well with the testing clearly used his intercostal and shoulder muscles vigorously. This pattern is clearly more consistent with a neurological illness and pretty much eliminates the likelihood of traumatic etiology. 04/22: Dr. Ritesh Damon finds and recommends: No diaphragmatic motion on either side. Respiratory pattern suspicious for high neurological deficit above C5. Repeat MRI of the brain, cervical and without and with contrast while ventilated to exclude motion artifact would be very helpful. 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 04/23: Continuing on spontaneous breathing trials with elevated pressure support. Using exaggerated accessory muscles the patient is able to breathe through relative comfort. 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 We plan to get repeat MRI brain and c-spine tomorrow - w/wo contrast per Dr. Ritesh Damon request. 04/24: Continued progress on spontaneous breathing trials but still requiring increased pressure support. We will continue to rest him at night. Continually low phosphorus is not helping muscle stamina, continue to replace aggressively. Repeat MRI of head and C-spine performed today, will review comparison to old study. SUBJECTIVE: 04/25: cysto today to evacuate clots. no other changes. awake and alert. denies new complaints. wbc slightly uptrended. 04/26: no more hematuria. CBI stopped this AM. discussed with urologist: plan to keep lehman at least 1 week or until more mobile. risk of urinary retention is high and repeat catheterization has high likelihood of causing additional bleeding. discussion with neurology: plan to start IVIG for possible GBS vs. auto-immune or transverse myelitis type neuromuscular weakness. 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 We will start looking into referral centers who have therapies targeted to diaphragmatic paralysis. ROS negative. 04/27: ambulating farther than yesterday. has been accepted by [facility] for further workup and consideration of diaphragmatic pacemaker, but awaiting bed. no changes. Objective Vital Signs / I&O: Vital Signs 04/26/18 19:54 04/26/18 20:00 04/26/18 21:00 Temperature 36.8 C Pulse Rate 100 H 112 H Respiratory Rate 15 15 16 Blood Pressure 126/66 155/72 H Pulse Oximetry 97 98 99 04/26/18 22:00 04/26/18 23:00 04/27/18 00:00 Temperature 37.1 C Pulse Rate 91 H 89 106 H Respiratory Rate 15 15 Blood Pressure 124/64 123/60 148/71 H Pulse Oximetry 100 99 04/27/18 01:00 04/27/18 01:06 04/27/18 02:00 Temperature Pulse Rate 94 H 92 H Respiratory Rate 14 Blood Pressure 123/61 123/70 Pulse Oximetry 96 97 96 04/27/18 03:00 04/27/18 03:56 04/27/18 04:00 Temperature 37.1 C Pulse Rate 89 90 Respiratory Rate 13 Blood Pressure 130/70 148/74 H Pulse Oximetry 97 95 95 04/27/18 05:00 04/27/18 06:00 04/27/18 07:00 Temperature Pulse Rate 96 H 89 98 H Respiratory Rate Blood Pressure 145/71 H 163/78 H Pulse Oximetry 97 95 97 04/27/18 07:58 04/27/18 08:00 04/27/18 09:00 Temperature Pulse Rate 101 H 93 H Respiratory Rate 14 Blood Pressure 176/84 H 166/81 H Pulse Oximetry 99 99 97 04/27/18 09:34 04/27/18 10:00 04/27/18 11:00 Temperature Pulse Rate 105 H 108 H 109 H Respiratory Rate 16 Blood Pressure 166/81 H 163/83 H 153/83 H Pulse Oximetry 92 L 100 04/27/18 11:11 04/27/18 12:00 04/27/18 12:07 Temperature Pulse Rate 101 H Respiratory Rate 14 Blood Pressure 168/80 H Pulse Oximetry 100 99 96 04/27/18 13:00 04/27/18 14:00 04/27/18 15:00 Temperature Pulse Rate 96 H 86 88 Respiratory Rate Blood Pressure 142/83 H 117/64 124/66 Pulse Oximetry 91 L 95 98 04/27/18 15:23 04/27/18 16:00 04/27/18 16:56 Temperature Pulse Rate 103 H 101 H Respiratory Rate 17 Blood Pressure 167/81 H 166/81 H Pulse Oximetry 97 97 97 04/27/18 17:00 04/27/18 18:00 Temperature Pulse Rate 100 H 91 H Respiratory Rate Blood Pressure 168/86 H 179/84 H Pulse Oximetry 98 98 Intake & Output 04/27/18 04/27/18 04/28/18 06:59 18:59 06:59 Intake Total 1195 / 1195 1017 / 1017 Output Total 800 / 800 1750 / 1750 Balance 395 / 395 -733 / -733 Weight 72.6 kg Intake: IV 500 / 500 150 / 150 Flexbumin 25% Inj 100 ML @ 60 100 / 100 100 / 100 mls/hr IV.SIG Q12H GIGI Rx#: [id number] Privigen Inj 30 GM In Bag/ 300 / 300 Syringe 1 EACH @ 37.5 mls/hr IV .SIG Q24H GIGI Rx#:[id number] Zosyn 3.375 GM Premix 3.375 gm 100 / 100 50 / 50 In 50 ml @ 100 mls/hr IV.SIG Q6H GIGI Rx#:[id number] Tube Feeding 595 / 595 467 / 467 Tube Irrigant 100 / 100 Water Bolus Amount 400 / 400 Output: Urine Amount (Catheter) 800 / 800 1750 / 1750 3-way Urethral 800 / 800 1750 / 1750 Other: Bladder Irrigation Fluid - Amount Instilled 3-way Urethral 0 Bladder Irrigation Fluid - Amount Drained 3-way Urethral 0 Date of Last Bowel Movement 04/25/18 04/25/18 Result Diagrams: 04/26/18 11:11 04/27/18 04:31 Objective Remarks: GENERAL: 67-year-old male. Awake alert SKIN: Warm and dry. HEAD: Atraumatic. Normocephalic. EYES: Pupils equal and round. No scleral icterus. No injection or drainage. ENT: No nasal bleeding or discharge. Mucous membranes pink and moist. Dobbhoff tube in place NECK: Trachea midline. No JVD. Trach site with some minor oozing. CARDIOVASCULAR: RRR sinus. RESPIRATORY: Lungs generally clear. Tolerating longer stretches of spontaneous breathing trials but requiring elevated pressure support. GASTROINTESTINAL: Abdomen slightly protuberant/non-tender, soft, bowel sounds active MUSCULOSKELETAL: Extremities without clubbing, cyanosis, trace to 1+ edema. No obvious deformities. NEUROLOGICAL: Follows commands and moves extremities to command. Limb strength 5 /5. No focal deficits. DTRs 3+ both knees. No clonus Assessment and Plan - Assessment and Plan Plan: Neuro/Psych: History of anterior C5/6 microdiscectomy with fusion Not requiring any continuous sedation at this time Goal of RASS 0 Evaluated by neurosurgery/Dr. Viera. No intervention planned at this time CT brain/MRI C-spine negative EEG revealed no epileptic activity Neurology following. Recommend myasthenia gravis lab. Negative to date. No evidence of GBS Left diaphragm remains elevated, suspect not functioning well. Requested second opinion for neurological status See neurology note. Overall strength clinically improving Need aggressive potassium and phosphorus replacement Wound remains well healed and clean Findings of bilateral diaphragm paralysis largely rules out operative injury. continue IVIG per neurology CV: Systolic heart failure unknown if acute or chronic Essential hypertension Hyperlipidemia Ejection fraction 45% on admission. Appreciate cardiac evaluation by Dr. Escobedo. No plans at this time Holding amlodipine 10 mg daily, and metoprolol tartrate 12.5 mg twice daily for hypertension Holding clonidine 0.1 twice daily and lisinopril 5 mg daily in light of hypotension/lisinopril for acute kidney injury Continue pravastatin 40 mg daily for dyslipidemia. Continue aspirin 81 mg by mouth daily. Still holding antihypertensives. Holding aspirin while bladder bleeding continues Due to increasing peripheral edema we will initiate diuretic therapy. Resp: Acute hypercapnic respiratory failure- now chronic Klebsiella oxytoca pneumonia PRVC ventilation. Ventilator bundle. Head of bed at 30 degrees Albuterol/ipratropium aerosols every 4 hours with albuterol aerosols every 2 hours as needed dyspnea Will need sniff test to assess diaphragmatic function once off vent We will consult ENT to assess vocal cords when appropriate Appreciate pulmonary input. Spontaneous breathing trial daily. 02/08 discontinued theophylline 400 mg daily acute delirium. Noted level. 04/09 3.7 Status post bronchoscopy 04/11. Thick white purulent secretions left lower lobe suction to clear. General surgery s/p percutaneous tracheostomy 04/14: Dr. Conde daily weaning of CPAP/pressure support. 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 Continue spontaneous breathing trials daily, rest on rate at night. -needs to be OOB and ambulating. made a plan today with RT and PT to walk daily with a 2-week goal of ambulating around the unit. -Also started possible transfer process to find a referral facility who evaluates and manages diaphragmatic paralysis, with possible need for diaphragm pacemaker: accepted by [facility], awaiting bed. GI: Gastroesophageal reflux disease Transaminitis Hypoalbuminemia Ileus new RUQ pain Acute protein calorie malnutrition- severe Tube feeding at 60 cc an hour days. At home on pantoprazole 40 mg daily. Currently on lansoprazole 30 mg daily holding bowel regimen for diarrhea add fiber to diet. RUQ ultrasound -benign Follow liver function tests, lipase No evidence of liver injury. Follow prealbumin weekly. failed speech swallow eval 04/26. continue NPO with tube feeds. : hematuria- resolved Irrigation Lehman in place because of acute bladder bleeding with clots. Urine largely clear with mild billie. No clots. keep lehman x at least 1 week (through 05/03) and until patient ambulating with low risk of retention (per Dr. Isaac with urology). Endo: Hypothyroidism Hypokalemia Hypophosphatemia TSH 1.28. Continue levothyroxine 125 mg by mouth daily Sliding scale insulin if indicated to maintain euglycemia Aggressive electrolyte replacement Continue scheduled thyroxine Follow TSH Renal: Kidney injury - acute, resolved. Avoid all nephrotoxic medications Creatinine currently 1.1 Neurology consultation for evaluation this is contrast-induced nephropathy from scans 03/31. Avoid nephrotoxic medication. Lisinopril discontinued. Accurate I's and O's difficult to obtain with bladder irrigation Heme: Normocytic anemia Leukocytosis Monitor CBC daily. Follow trends per No indication for transfusion of blood proximal to this time. ID: Klebsiella oxytoca pneumonia sputum 04/01 Completed with ceftriaxone per infectious disease. Started on piperacillin/tazobactam 04/11 due to aspiration, anticipated stop date 04/19 Lumbar puncture negative. HSV negative No growth to date on other cultures aside from sputum Lung ceron remain clear No evidence of ongoing infection. FEN: Hypernatremia-resolved Hypopotassemia Hypokalemia Free water 200 cc every 6 hours. Replace electrolytes as clinically indicated per ICU electrolyte protocol. Recheck electrolytes in a.m. Increase scheduled potassium replacement 50 MEQ twice daily MSK: PT evaluate and treat up to chair daily OT evaluate and treat Access -Utilize peripheral IV. Prophylaxis -GI -lansoprazole -DVT -SCD/enoxaparin Overall impression: Remains weak and de conditioned but improving strength on spontaneous breathing trials.. We continue to work on nutrition and ventilator weaning. OOB and working with PT daily. We are presently looking at disease processes which could lead to bilateral diaphragmatic paresis.
--- NOTE | 2018-04-27 19:10 | P.DS ---
Date of admission: 03/31/18 14:57 Primary care physician: Rex Longoria MD Attending physician on discharge: John Martin Anticipated date of discharge: 04/27/18 Brief History from admission: This 67-year-old came into the emergency room today with his and daughter. On 02/13/2018, he had a microdiscectomy, C5-C6, by Dr. Schwarz. He was discharged home the next day. A few days after, he had not been feeling well, short of breath, disoriented, generally weak, symptoms were getting worse, disorientation was worse. He was referred to emergency department by his primary care physician for an evaluation. In the ED he was found to be in severe hypercarbic respiratory acidosis and was intubated by ED attending. DS: Diagnosis - Discharge Diagnosis (1) BUDDY (acute kidney injury) Status: Acute (2) BUDDY (acute kidney injury) Status: Acute (3) Acute hyponatremia Status: Acute (4) Adult failure to thrive Status: Acute (5) Atelectasis Status: Acute (6) Gross hematuria Status: Acute (7) Hypernatremia Status: Acute (8) Ileus Status: Acute (9) Leukocytosis Status: Acute (10) Respiratory failure Status: Acute (11) Shortness of breath Status: Acute (12) Ventilator dependent Status: Acute (13) Weakness generalized Status: Acute (14) Neck pain, chronic Status: Chronic (15) Other cervical disc degeneration at C5-C6 level Status: Chronic (16) Protrusion of cervical intervertebral disc Status: Chronic DS: Summary Hospital Course: This 67-year-old came into the emergency room today with his and daughter. On 02/13/2018, he had a microdiscectomy, C5-C6, by Dr. Schwarz. He was discharged home the next day. A few days after, he had not been feeling well, short of breath, disoriented, generally weak, symptoms were getting worse, disorientation was worse. He was referred to emergency department by his primary care physician for an evaluation. In the ED he was found to be in severe hypercarbic respiratory acidosis and was intubated by ED attending. 04/01: CO2 retention corrected. Remains mildly alkalotic due to chronic CO2 elevation. PH normalized. Still requiring vasopressor therapy with norepinephrine. Broad-spectrum antibiotic coverage started. Lumbar puncture performed with opening pressure 20 and crystal-clear fluid, sent for cell counts , chemistries and culture. HSV included. One extra tube sent for future studies if necessary. Ammonia level 71 - repeat daily. 04/02: CSF appears benign. Repeat ammonia level normal. Gamma GT normal. Cardiac echo estimated of 45% ejection fraction requires a little additional investigation -patient has been chronically short of breath for several weeks now. Leukocytosis and left shift persists. Gram-positive cocci and white cells seen in sputum. This man clearly became acutely and critically ill - exact cause still eludes us. 04/03: Leukocytosis improved. Remains quite rigid when stimulated. Continues to move 4 limbs with purpose and follows commands with 4 limbs. Sputum demonstrates white blood cells and gram-negative rods. 04/04: Improved color and perfusion. Extubated yesterday afternoon but failed after about 45 minutes -developed somnolence then obtundation, appeared to be having difficulty taking a breath, concern for vocal cord dysfunction. On reintubation the cord edges were irregular but otherwise normal in appearance. I could not assess cord function as patient was not alert enough to cooperate with commands. We will definitely pursue possibilities of vocal cord dysfunction and or phrenic nerve paralysis once we get him extubated. Ideally, a sniff test under fluoroscopy would demonstrate any paradoxical diaphragm motion. 04/05: Afebrile. Neurologically appears intact. Daughter concerned about "appears distant" however on 40 mcg/kg/min of propofol and 250 mcg an hour fentanyl. No bowel movement since admission. Tube feeding only at 20 cc an hour. 04/06: Afebrile. Neurologically intact. Following commands.. Positive BM. Labile blood pressures yesterday. Replace potassium currently. 04/07: Patient writing notes today. Chest x-ray clear. Elevated left diaphragm , probably dysfunctional. Continued encephalopathy and generalized weakness chris very concerning. We will try Aminophyllin today to see if we can get some diaphragm and central nervous system stimulation. 04/08: Started on theophylline yesterday. Check level in a.m. Will attempt PSV trial today. Noted pulmonology requests possible T-bar with ABG when appropriate. Afebrile. 04/09: T-max 100. theophylline currently 3.7. Currently on CPAP trials. 02/18. 45%. Check ABG at 10 today. Desaturated yesterday currently back at 40%. 04/10: Resting in bed. Episode of nausea overnight. Negative workup. Evaluated positive BM 04/08. Patient more agitated overnight. Propofol discontinued due to hypotension. Currently on fentanyl drip. Theophylline. Creatinine currently 2.0 we will consult nephrology. Discontinue lisinopril. Receiving one half normal saline bolus currently. 04/11: T-max 101.1. Increasing O2 records.Increasing white blood cell count. For the cuff is overinflated to palpate the vocal cords. Leak by examination. Will change ET tube in place central line today. Empirically start antibiotics for aspiration. Not tolerating tube feeds and currently to low inner wall suction. Check KUB after ET tube exchange and central line placement. Restart metoclopramide. Positive BMs. 04/12: Yesterday, CT thorax revealed collapsed left lower lung. Status post bronchoscopy with reinflation of lung. Better saturations today. Continues with small and large bowel colonic distention. Right: 11 cm. GI is following. Might need decompression. Current orogastric tube to low intermittent wall suction. 04/13: Improved small and large bowel colonic distention. Down to 8 cm long family discussion. We will perform percutaneous tracheostomy and PEG tube as well. Request second neurological opinion. In better spirits today. 04/14: no changes. awakens and follows commands. plan for trach today. 22: s/p trach yesterday. awake and alert. calm. looks more comfortable than yesterday. did not tolerate PRVC today, but tolerates PSV with high support (24/ 5/35%). 2/3: complaining of new RUQ pain. ?+Fry's sign. labs wnl today. no other complaints. denies nausea or vomiting. still has diarrhea, but this is slowing down after holding bowel regimen. ROS otherwise negative. 04/17: Gallbladder ultrasound appears benign. No new complaints. 04/18: Remains on the vent. Tolerated approximately 7 hours of CPAP yesterday with high PS. Still complaining of diarrhea. Most likely induced by tube feeds. Potassium remains low at 2.7. Potassium replacement in addition to protocol given followed by KCl 20 meq twice daily scheduled. Probably GI loss 04/19: Clinically improving tolerating CPAP better today. Pressure support reduced to 12. Near normal strength normal reflexes normal sensation. Continue aggressive potassium and phosphorus replacement. 04/20: Irrigation Lehman placed and bladder for removal of large blood clots. Will delay bedside sniff test until urinary problems clear up. Anticipate indirect laryngoscopy to nasal approach soon. 04/21: Bleeding from Lehman catheter markedly reduced, just pink fluid now. Awake and alert this morning. We will attempt sniff test this morning under fluoroscopy. Update: Sniff test performed under fluoroscopy by Dr. Ritesh Damon shows no diaphragmatic function on either left or right side. The patient participated well with the testing clearly used his intercostal and shoulder muscles vigorously. This pattern is clearly more consistent with a neurological illness and pretty much eliminates the likelihood of traumatic etiology. 04/22: Dr. Ritesh Damon finds and recommends: No diaphragmatic motion on either side. Respiratory pattern suspicious for high neurological deficit above C5. Repeat MRI of the brain, cervical and without and with contrast while ventilated to exclude motion artifact would be very helpful. 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 04/23: Continuing on spontaneous breathing trials with elevated pressure support. Using exaggerated accessory muscles the patient is able to breathe through relative comfort. 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 We plan to get repeat MRI brain and c-spine tomorrow - w/wo contrast per Dr. Ritesh Damon request. 04/24: Continued progress on spontaneous breathing trials but still requiring increased pressure support. We will continue to rest him at night. Continually low phosphorus is not helping muscle stamina, continue to replace aggressively. Repeat MRI of head and C-spine performed today, will review comparison to old study. SUBJECTIVE: 04/25: cysto today to evacuate clots. no other changes. awake and alert. denies new complaints. wbc slightly uptrended. 04/26: no more hematuria. CBI stopped this AM. discussed with urologist: plan to keep lehman at least 1 week or until more mobile. risk of urinary retention is high and repeat catheterization has high likelihood of causing additional bleeding. discussion with neurology: plan to start IVIG for possible GBS vs. auto-immune or transverse myelitis type neuromuscular weakness. 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 We will start looking into referral centers who have therapies targeted to diaphragmatic paralysis. ROS negative. 2/14: ambulating farther than yesterday. has been [facility] by [facility] for further workup and consideration of diaphragmatic pacemaker, but awaiting bed. no changes. - Time Spent with Patient Total time spent providing and/or coordinating discharge services: Greater than 30 minutes - Quality: VTE Deep Vein Thrombosis/Pulmonary Embolism Present on Admission: No Exam Vital signs: Vital Signs 04/26/18 19:54 04/26/18 20:00 04/26/18 21:00 Temperature 36.8 C Pulse Rate 100 H 112 H Respiratory Rate 15 15 16 Blood Pressure 126/66 155/72 H Pulse Oximetry 97 98 99 04/26/18 22:00 04/26/18 23:00 04/27/18 00:00 Temperature 37.1 C Pulse Rate 91 H 89 106 H Respiratory Rate 15 15 Blood Pressure 124/64 123/60 148/71 H Pulse Oximetry 100 99 04/27/18 01:00 04/27/18 01:06 04/27/18 02:00 Temperature Pulse Rate 94 H 92 H Respiratory Rate 14 Blood Pressure 123/61 123/70 Pulse Oximetry 96 97 96 04/27/18 03:00 04/27/18 03:56 04/27/18 04:00 Temperature 37.1 C Pulse Rate 89 90 Respiratory Rate 13 Blood Pressure 130/70 148/74 H Pulse Oximetry 97 95 95 04/27/18 05:00 04/27/18 06:00 04/27/18 07:00 Temperature Pulse Rate 96 H 89 98 H Respiratory Rate Blood Pressure 145/71 H 163/78 H Pulse Oximetry 97 95 97 04/27/18 07:58 04/27/18 08:00 04/27/18 09:00 Temperature Pulse Rate 101 H 93 H Respiratory Rate 14 Blood Pressure 176/84 H 166/81 H Pulse Oximetry 99 99 97 04/27/18 09:34 04/27/18 10:00 04/27/18 11:00 Temperature Pulse Rate 105 H 108 H 109 H Respiratory Rate 16 Blood Pressure 166/81 H 163/83 H 153/83 H Pulse Oximetry 92 L 100 04/27/18 11:11 04/27/18 12:00 04/27/18 12:07 Temperature Pulse Rate 101 H Respiratory Rate 14 Blood Pressure 168/80 H Pulse Oximetry 100 99 96 04/27/18 13:00 04/27/18 14:00 04/27/18 15:00 Temperature Pulse Rate 96 H 86 88 Respiratory Rate Blood Pressure 142/83 H 117/64 124/66 Pulse Oximetry 91 L 95 98 04/27/18 15:23 04/27/18 16:00 04/27/18 16:56 Temperature Pulse Rate 103 H 101 H Respiratory Rate 17 Blood Pressure 167/81 H 166/81 H Pulse Oximetry 97 97 97 04/27/18 17:00 04/27/18 18:00 Temperature Pulse Rate 100 H 91 H Respiratory Rate Blood Pressure 168/86 H 179/84 H Pulse Oximetry 98 98 Intake & Output 04/27/18 04/27/18 04/28/18 06:59 18:59 06:59 Intake Total 1195 / 1195 1017 / 1017 Output Total 800 / 800 1750 / 1750 Balance 395 / 395 -733 / -733 Weight 72.6 kg Intake: IV 500 / 500 150 / 150 Flexbumin 25% Inj 100 ML @ 60 100 / 100 100 / 100 mls/hr IV.SIG Q12H GIGI Rx#: [id number] Privigen Inj 30 GM In Bag/ 300 / 300 Syringe 1 EACH @ 37.5 mls/hr IV .SIG Q24H GIGI Rx#:[id number] Zosyn 3.375 GM Premix 3.375 gm 100 / 100 50 / 50 In 50 ml @ 100 mls/hr IV.SIG Q6H GIGI Rx#:[id number] Tube Feeding 595 / 595 467 / 467 Tube Irrigant 100 / 100 Water Bolus Amount 400 / 400 Output: Urine Amount (Catheter) 800 / 800 1750 / 1750 3-way Urethral 800 / 800 1750 / 1750 Other: Bladder Irrigation Fluid - Amount Instilled 3-way Urethral 0 Bladder Irrigation Fluid - Amount Drained 3-way Urethral 0 Date of Last Bowel Movement 04/25/18 04/25/18 Results Procedures completed during hospitalization: sniff test Labs on day of discharge: Labs from last 24 hours 04/27/18 04:31 Sodium 146 H Potassium 4.1 Chloride 110 H Carbon Dioxide 29.5 Anion Gap 7 BUN 29 H Creatinine 0.77 Estimated GFR Greater than 89 Random Glucose 112 H Calcium 9.1 Phosphorus 2.8 Magnesium 2.5 Preliminary micro results at discharge 04/25/18 00:14 Sputum Culture - Preliminary Sputum - Endotracheal Pseudomonas species 04/11/18 18:00 Fungal Culture - Preliminary Bronchial Washings - Left Lower Lobe No growth in 2 weeks 04/11/18 18:00 Mycobacterial Culture - Preliminary Bronchial Washings - Left Lower Lobe No growth in 2 weeks - Impressions ITS Impressions Head CT 03/31/18 12:16 CONCLUSION: 1. Negative CT Head non contrast. . Chest CTA 03/31/18 14:39 CONCLUSION: 1. Bibasilar atelectatic changes, left greater than right. No confluent infiltrate. 2. No pulmonary embolus. 3. Atherosclerotic calcification of the coronary arteries. Abdomen/Bladder Ultrasound 04/10/18 08:05 CONCLUSION: 1. Probable complex cyst coming off the right lower pole kidney appears smaller since 2017 CT examination of the abdomen. Abdomen X-Ray 04/15/18 05:07 CONCLUSION: Dobbhoff tube tip now seen in the stomach. Gallbladder Ultrasound 04/16/18 00:00 CONCLUSION: 1. Minimal prominence of the gallbladder wall. No pericholecystic fluid is seen no stones are evident. 2. Increased echogenicity of the liver suggesting fatty infiltration. Abdomen/Pelvis CT 04/19/18 10:15 CONCLUSION: 1. Tiny 1 mm calculus now noted in the posterior left side of the bladder which could represent a small bladder calculi or distal ureteral calculus. 2. The left kidney appears unremarkable and there is no hydronephrosis. The ureters appear within normal limits. 3. Single tiny nonobstructing right renal calculus without change. The previously noted complex cystic lesion in the lower pole is faintly visualized. 4. Nonspecific bowel gas pattern which may represent an ileus. Chest Fluoroscopy 04/21/18 00:00 CONCLUSION: No diaphragmatic motion on either side. Respiratory pattern suspicious for high neurological deficit above C5. Repeat MRI of the brain, cervical and without and with contrast while ventilated to exclude motion artifact would be very helpful. Cervical Spine MRI 04/24/18 00:00 CONCLUSION: 1. Subtle increased signal in the cord beginning at the C4 level extending distally. There is no abnormal contrast enhancement. 2. This is seen best on the sagittal IR image set. Head MRI 04/24/18 00:00 CONCLUSION: 1. Negative MRI of the brain without and with contrast Chest X-Ray 04/25/18 06:00 CONCLUSION: No significant interval change Chest CT 04/26/18 00:00 CONCLUSION: Slight improvement in aeration. Discharge Plan - Discharge Disposition Patient Disposition: 70 Transfer To Other Facility - Discharge Condition Condition: Stable - Discharge Order Discharge Orders: Discharge Order (Routine); Ordered 04/27/18 Ordered By: John Martin - Discharge Details Anticipated Discharge Date: 04/27/18 Discharge Comment: to [facility] - Physicians Team Primary Care Provider: Rex Longoria Attending Provider: Gilmer Rodriguez Other Providers: Lev Torres MD ; Lisseth Martins MD ; Vivek Viera MD ; [facility] ; Miguel Coyle MD ; Johny Escobedo DO ; Shay Ontiveros MD ; Matilde Campbell MD ; Annamarie Srivastava MD ; Prem Isaac DO
[2018-04-28] MEDS: Pyridostigmine Bromide 60 MG Tablet PO SCH ×2 (00:17→03:54)
[2018-04-28] MEDS: Oral Hygiene Kit OROPHARYNG SCH ×4 (00:17→18:38)
[2018-04-28] MEDS: Artificial Tears Opth Drops 15 ML Bottle EACH EYE SCH ×3 (00:25→18:38)
[2018-04-28] MEDS: Levothyroxine 125 MCG Tablet PO SCH (05:16)
[2018-04-28] MEDS: hydrALAZINE 50 MG Tablet PO SCH ×3 (05:16→21:33)
[2018-04-28] MEDS: Albumin Human 25% Inj 100 ML IV.SIG SCH ×2 (05:17→18:32)
--- NOTE | 2018-04-28 06:13 | XR ---
EXAM DATE: 04/28/2018 3:45 AM EST AGE/SEX: 67 years / Male INDICATIONS: Edema. CLINICAL DATA: This is the patient's subsequent encounter. Patient reports that signs and symptoms h ave been present for 1 month and indicates a pain score of Nonresponsive. MEDICAL/SURGICAL HISTORY: . Gastroesophageal reflux disease. . Inguinal hernia repair. Trache ostomy. COMPARISON: [facility] – [place]ST 1V SINGLE AP, 04/25/2018. . FINDINGS: Tracheostomy and feeding tube are again noted. Hazy left base consolidation is unchanged. Right lung appears grossly clear. Accounting for rotation, cardiac contours are stable. CONCLUSION: No significant change Electronically signed by: Miguel Beard MD Board Certified Radiologist 04/28/2018 6:11 AM EST
--- NOTE | 2018-04-28 07:55 | P.PNNEU ---
Subjective Active Medications: Active Medications Acetaminophen (Tylenol) 650 mg PO Q6H PRN PRN Reason: Temp > 100.4 Last Admin: 04/16/18 21:02 Dose: 650 mg Albuterol (Albuterol Neb (Prn)) 2.5 mg NEB Q2HR NEB PRN PRN Reason: DYSPNEA Artificial Tears (Tears Naturale Opth Drops) 1 drop EACH EYE Q8H [facility] Last Admin: 04/28/18 00:25 Dose: 1 drop Aspirin (Aspirin Chew) 81 mg PO DAILY [facility] Last Admin: 04/19/18 08:01 Dose: 81 mg Belladonna Alkaloids/Opium (B & O Supp) 60 mg RECTAL Q6HR PRN PRN Reason: bladder spasms Chlorhexidine Gluconate (Peridex 0.12% Oral Kit) 15 ml OROPHARYNG BID@0800, 2000 [facility] Last Admin: 04/27/18 20:59 Dose: 15 ml Sodium Chloride 3,000 ml/ (Aminocaproic Acid 3,000 mg) 0 ml IRRIGATION Q24H [facility] Last Admin: 04/27/18 10:17 Dose: Not Given Diphenhydramine HCl (Benadryl Inj) 50 mg IV.PUSH PRN PRN PRN Reason: ALLERGIC REACTION Stop: 05/02/18 08:23 Enoxaparin Sodium (Lovenox Inj) 40 mg SQ DAILY [facility] Last Admin: 04/19/18 08:01 Dose: 40 mg Epinephrine HCl (Epinephrine (1:1000) Inj) 0.3 mg OTHER Q10M PRN PRN Reason: Anaphylactic Reaction Stop: 05/02/18 08:23 Furosemide (Lasix Inj) 40 mg IV.PUSH DAILY [facility] Last Admin: 04/27/18 09:33 Dose: 40 mg Hydralazine HCl (Apresoline) 50 mg PO Q8HR [facility] Last Admin: 04/28/18 05:16 Dose: 50 mg Immune Globulin 30 gm/ (Miscellaneous Medication) 300 mls @ 37.5 mls/hr IV.SIG Q24H [facility] Stop: 05/01/18 09:29 Last Infusion: 04/27/18 19:00 Dose: Infused Meropenem 1,000 mg/ Sodium (Chloride) 100 mls @ 200 mls/hr IV.SIG Q8H [facility] Last Infusion: 04/28/18 01:00 Dose: Infused Magnesium Sulfate 4 gm/ Sodium (Chloride) 100 mls @ 50 mls/hr IV.SIG UNSCH PRN PRN Reason: For Magnesium 0.9 - 1.1 mg/dL Potassium Chloride (Kcl 40 Meq Premix Inj) 40 meq in 100 mls @ 25 mls/hr IV.SIG Q2H PRN PRN Reason: For Potassium 2.8 - 3.2 mEq/L Last Infusion: 04/15/18 06:37 Dose: Infused Potassium Chloride (Kcl 20 Meq Premix Inj) 20 meq in 100 mls @ 50 mls/hr IV.SIG Q2H PRN PRN Reason: For Potassium 3.3 - 3.5 mEq/L Last Infusion: 04/24/18 10:29 Dose: Infused Potassium Chloride (Kcl 40 Meq Premix Inj) 40 meq in 100 mls @ 25 mls/hr IV.SIG UNSCH PRN PRN Reason: For Potassium 3.3 - 3.5 mEq/L Last Infusion: 04/12/18 10:35 Dose: Infused Potassium Chloride (Kcl 20 Meq Premix Inj) 20 meq in 100 mls @ 50 mls/hr IV.SIG Q2H PRN PRN Reason: For Potassium 2.8 - 3.2 mEq/L Last Infusion: 04/24/18 10:29 Dose: Infused Potassium Phosphate 30 mmol/ (Sodium Chloride) 260 mls @ 42 mls/hr IV.SIG UNSCH PRN PRN Reason: SEE LABEL COMMENTS Last Infusion: 04/19/18 15:35 Dose: Infused Magnesium Sulfate 2 gm/ Sodium (Chloride) 100 mls @ 50 mls/hr IV.SIG UNSCH PRN PRN Reason: For Magnesium 1.2 - 1.6 mg/dL Sodium Phosphate 30 mmol/ (Sodium Chloride) 260 mls @ 42 mls/hr IV.SIG UNSCH PRN PRN Reason: For Phosphorus < 2.5 mg/dL Albumin Human (Flexbumin 25% Inj) 100 mls @ 60 mls/hr IV.SIG Q12H [facility] Last Infusion: 04/28/18 07:38 Dose: Infused Labetalol HCl (Trandate Inj) 20 mg IV.PUSH Q1H PRN PRN Reason: SBP > 160 Last Admin: 04/24/18 11:57 Dose: 20 mg Lansoprazole (Prevacid Solutab) 30 mg NG/OG DAILY [facility] Last Admin: 04/27/18 09:33 Dose: 30 mg Levothyroxine Sodium (Synthroid) 125 mcg PO DAILY@0600 [facility] Last Admin: 04/28/18 05:16 Dose: 125 mcg Magnesium Oxide (Mag-Ox) 800 mg PO UNSCH PRN PRN Reason: For Magnesium 1.2 - 1.6 mg/dL Magnesium Oxide (Mag-Ox) 400 mg PO BID@1100,2300 [facility] Last Admin: 04/27/18 23:50 Dose: 400 mg Miscellaneous (Pill Splitter) 1 each OTHER UNSCH PRN PRN Reason: SEE LABEL COMMENTS Miscellaneous Medication (Asp Crit: Other Exception Documentation) 1 each OTHER UNSCH PRN PRN Reason: PHARMACY DOCUMENTATION Stop: 04/28/18 16:13 Miscellaneous Medication () 1 each OROPHARYNG 0000,0400,1200,1600 [facility] Last Admin: 04/28/18 03:54 Dose: 1 each Ondansetron HCl (Zofran Inj) 4 mg IV.PUSH Q4H PRN PRN Reason: NAUSEA OR VOMITING Oxycodone HCl (Roxicodone Intensol Liq) 5 mg PO Q4H PRN PRN Reason: pain 4-6 Last Admin: 04/16/18 13:36 Dose: 5 mg Oxymetazoline HCl (Afrin 0.05% Nasal [place]) 2 spray NASAL Q12H PRN PRN Reason: Bronchoscopy Polyethylene Glycol (Miralax) 17 gm PO BID [facility] Last Admin: 04/15/18 21:00 Dose: Not Given Potassium Chloride (Kcl Liq) 40 meq PO UNSCH PRN PRN Reason: Potassium level 3.3-3.5 mEq/L Last Admin: 04/17/18 17:38 Dose: 40 meq Potassium Chloride (Kcl Liq) 40 meq PO UNSCH PRN PRN Reason: Potassium level 3.3-3.5 mEq/L Last Admin: 04/16/18 14:59 Dose: 40 meq Potassium Chloride (Kcl Liq) 50 meq PO BID [facility] Last Admin: 04/27/18 21:08 Dose: 50 meq Potassium Phosphate (K-Phos Original) 2,000 mg PO Q4H PRN PRN Reason: Phosphorus Less Than 2.5 mg/dL Last Admin: 04/17/18 10:48 Dose: 2,000 mg Potassium Phosphate (K-Phos Original) 2,000 mg PO UNSCH PRN PRN Reason: SEE LABEL COMMENTS Pravastatin Sodium (Pravachol) 40 mg PO HS [facility] Last Admin: 04/27/18 21:08 Dose: 40 mg Psyllium Hydrophilic Mucilloid (Metamucil Fiber Sf Pkt) 1 pack NG/OG DAILY [facility] Last Admin: 04/27/18 09:03 Dose: Not Given Sertraline HCl (Zoloft) 100 mg PO DAILY [facility] Last Admin: 04/27/18 09:33 Dose: 100 mg Sodium Chloride (Ns Flush) 2 ml IV.FLUSH BID [facility] Last Admin: 04/27/18 21:08 Dose: 2 ml Sodium Chloride (Ns Flush) 2 ml IV.FLUSH PRN PRN PRN Reason: FLUSH AFTER USING IV ACCESS Sodium Chloride (Ns Flush) 0 ml IV.FLUSH DAILY [facility] Last Admin: 04/27/18 09:33 Dose: Not Given Allergies/Adverse Reactions: Allergies Allergy/AdvReac Type Severity Reaction Status Date / Time Sulfa (Sulfonamide Allergy Severe Nausea Verified 02/15/18 05:02 Antibiotics) Physical Exam Vital signs: Vital Signs 04/27/18 07:58 04/27/18 08:00 04/27/18 09:00 Temperature Pulse Rate 101 H 93 H Respiratory Rate 14 Blood Pressure 176/84 H 166/81 H Pulse Oximetry 99 99 97 04/27/18 09:34 04/27/18 10:00 04/27/18 11:00 Temperature Pulse Rate 105 H 108 H 109 H Respiratory Rate 16 Blood Pressure 166/81 H 163/83 H 153/83 H Pulse Oximetry 92 L 100 04/27/18 11:11 04/27/18 12:00 04/27/18 12:07 Temperature Pulse Rate 101 H Respiratory Rate 14 Blood Pressure 168/80 H Pulse Oximetry 100 99 96 04/27/18 13:00 04/27/18 14:00 04/27/18 15:00 Temperature Pulse Rate 96 H 86 88 Respiratory Rate Blood Pressure 142/83 H 117/64 124/66 Pulse Oximetry 91 L 95 98 04/27/18 15:23 04/27/18 16:00 04/27/18 16:56 Temperature Pulse Rate 103 H 101 H Respiratory Rate 17 Blood Pressure 167/81 H 166/81 H Pulse Oximetry 97 97 97 04/27/18 17:00 04/27/18 18:00 04/27/18 19:00 Temperature Pulse Rate 100 H 91 H 82 Respiratory Rate Blood Pressure 168/86 H 179/84 H 133/69 Pulse Oximetry 98 98 96 04/27/18 19:58 04/27/18 20:00 04/27/18 21:00 Temperature 98.4 F Pulse Rate 87 83 Respiratory Rate 13 Blood Pressure 132/67 137/70 Pulse Oximetry 96 96 98 04/27/18 22:00 04/27/18 23:00 04/27/18 23:22 Temperature Pulse Rate 84 84 Respiratory Rate 13 Blood Pressure 136/65 125/73 Pulse Oximetry 97 97 97 04/28/18 00:00 04/28/18 01:00 04/28/18 02:00 Temperature 98.7 F Pulse Rate 92 H 84 83 Respiratory Rate Blood Pressure 150/69 H 142/68 H 143/66 H Pulse Oximetry 98 98 97 04/28/18 03:00 04/28/18 03:15 04/28/18 04:00 Temperature 98.2 F Pulse Rate 95 H 87 Respiratory Rate 12 Blood Pressure 149/70 H 143/69 H Pulse Oximetry 95 95 96 04/28/18 05:00 04/28/18 06:00 Temperature Pulse Rate 84 102 H Respiratory Rate Blood Pressure 147/72 H 185/86 H Pulse Oximetry 94 L 95 Intake & Output 04/27/18 04/28/18 04/28/18 18:59 06:59 18:59 Intake Total 1017 / 1017 1316 / 1316 100 / 100 Output Total 1750 / 1750 950 / 950 Balance -733 / -733 366 / 366 100 / 100 Weight 71.4 kg Intake: IV 150 / 150 650 / 650 100 / 100 Flexbumin 25% Inj 100 ML @ 60 100 / 100 100 / 100 100 / 100 mls/hr IV.SIG Q12H [facility] Rx#: [id number] Privigen Inj 30 GM In Bag/ 300 / 300 Syringe 1 EACH @ 37.5 mls/hr IV .SIG Q24H [facility] Rx#:[id number] Merrem Inj 1,000 MG In NS Inj 200 / 200 100 ML @ 200 mls/hr IV.SIG Q8H [facility] Rx#:[id number] Zosyn 3.375 GM Premix 3.375 gm 50 / 50 50 / 50 In 50 ml @ 100 mls/hr IV.SIG Q6H [facility] Rx#:[id number] Tube Feeding 467 / 467 566 / 566 Tube Irrigant 100 / 100 Water Bolus Amount 400 / 400 Output: Urine Amount (Catheter) 1750 / 1750 950 / 950 3-way Urethral 1750 / 1750 950 / 950 Other: Date of Last Bowel Movement 04/25/18 04/25/18 Narrative: no major change still weak breath - Urinary Catheter Management Indwelling Urethral Catheter Cath placed during this visit: yes, but has since been removed by the nurse Reason for continuing: Continue criteria not met Insertion date: 04/10/18 Insertion time: 01:45 Removal date: 04/15/18 Removal time: 17:05 Condom Cath placed during this visit: no 3-way Urethral Cath placed during this visit: yes Reason for continuing: Gross Hematuria Insertion date: 04/25/18 Insertion time: 11:20 Objective Microbiology 04/25/18 00:14 Gram Stain - Final Sputum - Endotracheal Sputum Culture - Preliminary Pseudomonas species Review/Management - Review/Management Plan: Encephalopathy Likely secondary to respiratory failure, hypoxia, metabolic etiology Respiratory failure - Lactic acidosis - Hyperammonemia - Leukocytosis - Neuro checks Q1h - MRI brain and head CT scan was unremarkable for an acute intracranial abnormality - Will reassess after patient he is off sedation. - CSF analysis is unremarkable, pending culture and HSV PCR results - EEG with evidence of encephalopathy, no epileptiform discharges or electrographic seizure activity - I met with family members and discussed the current neurologic status - There is no indication to start AEDs. -DVT prophylaxis - GI prophylaxis - Neurology will follow up. - Dr. Farias will follow up on Tuesday04/03/2018. - Please call for questions 04/03/18 met encep mri LP eeg neg labs neg my hope is off sedatives he should do fine no hx dementia nor pd acc to daughters labs ordered few more 04/04/18 much better ok to dc sedatives neurowise recheck abg still some jerking can recheck eeg when off vent I spoke with Dr Ortiz of pulmonary. 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 According to the pt and family this developed a week after the cervical spine surgery. Myasthenia labs are negative , which does not absolutely r/o myasthenia gravis. He does not have ptosis or other bulbar sx of MG. Guillain [place] can affect respiration and phrenic nerves , but he has no limb weakness and DTRs are intact. Will discuss with Dr Farias possible empiric trial of ivig for possible atypical MG with normal labs. Will send serum JUANJO to be sure not IgA deficient before considering ivig 04/19/18 strength and dtr nl i dw dr puckett and family will try mestinon although unlikely mg 04/20/18 inc mestinon to 60 mg and watch breathing 04/21/18 no change on mestinon sniff test today will check iga level in case we do ivig not confident will help though really no clinical sign of mg nor aidp 04/24/18 not any better on mestinon will dw dr menendez consider ivig but really i do not think mg and a variant odd of gbs unlikley with intact reflexes we have some case report of bilat phrenic nerve damage after ant c spine surgery 04/26/18 as above no major change iga level ok will give ivig trial 04/28/18 sp ivig first dose check renal fxt and ua today and [place] tuesday dc mestinon not helping
[2018-04-28] MEDS: Potassium Chloride Liq 20 MEQ/15 ML UDC PO SCH ×2 (09:22→21:32)
[2018-04-28] MEDS: Sertraline 100 MG Tablet PO SCH (09:23)
[2018-04-28] MEDS: Psyllium Husk SF 3.4 GM in 5.8 GM Packet NG/OG SCH (09:23)
[2018-04-28] MEDS: IVIG (Immune Globulin) Inj 30 GM in Syringe/Bag 1 EACH IV.SIG SCH (10:37)
[2018-04-28] MEDS: Chlorhexidine 0.12% Oral Kit 15 ML UDC OROPHARYNG SCH ×2 (10:41→21:21)
[2018-04-28 10:44] LABS: Anion Gap 5 meq/L (5-15); Blood Urea Nitrogen 33 mg/dL (7-18); Calcium 9.7 mg/dL (8.5-10.1); Carbon Dioxide 29.9 meq/L (21.0-32.0); Chloride 112 meq/L (98-107); Glomerular Filtration Rate Greater Than 89 mL/min (>89); Glucose,Random 127 mg/dL (74-106); Potassium 3.6 meq/L (3.5-5.1); Sodium 147 meq/L (136-145)
--- NOTE | 2018-04-28 12:35 | P.PN ---
Subjective Interval history: On vent support and FiO2 35%. Walked the halls today Now back on rate of 12 and PEEP of 7. Will be transferred to [facility] for further workup of diaphragmatic paralysis and possible pacer. Physical Exam Vital signs: Vital Signs 04/27/18 13:00 04/27/18 14:00 04/27/18 15:00 Temperature Pulse Rate 96 H 86 88 Respiratory Rate Blood Pressure 142/83 H 117/64 124/66 Pulse Oximetry 91 L 95 98 04/27/18 15:23 04/27/18 16:00 04/27/18 16:56 Temperature Pulse Rate 103 H 101 H Respiratory Rate 17 Blood Pressure 167/81 H 166/81 H Pulse Oximetry 97 97 97 04/27/18 17:00 04/27/18 18:00 04/27/18 19:00 Temperature Pulse Rate 100 H 91 H 82 Respiratory Rate Blood Pressure 168/86 H 179/84 H 133/69 Pulse Oximetry 98 98 96 04/27/18 19:58 04/27/18 20:00 04/27/18 21:00 Temperature 98.4 F Pulse Rate 87 83 Respiratory Rate 13 Blood Pressure 132/67 137/70 Pulse Oximetry 96 96 98 04/27/18 22:00 04/27/18 23:00 04/27/18 23:22 Temperature Pulse Rate 84 84 Respiratory Rate 13 Blood Pressure 136/65 125/73 Pulse Oximetry 97 97 97 04/28/18 00:00 04/28/18 01:00 04/28/18 02:00 Temperature 98.7 F Pulse Rate 92 H 84 83 Respiratory Rate Blood Pressure 150/69 H 142/68 H 143/66 H Pulse Oximetry 98 98 97 04/28/18 03:00 04/28/18 03:15 04/28/18 04:00 Temperature 98.2 F Pulse Rate 95 H 87 Respiratory Rate 12 Blood Pressure 149/70 H 143/69 H Pulse Oximetry 95 95 96 04/28/18 05:00 04/28/18 06:00 04/28/18 08:00 Temperature Pulse Rate 84 102 H Respiratory Rate 15 Blood Pressure 147/72 H 185/86 H Pulse Oximetry 94 L 95 94 L 04/28/18 10:37 04/28/18 11:50 Temperature Pulse Rate 122 H Respiratory Rate 16 17 Blood Pressure 156/79 H Pulse Oximetry 95 Intake & Output 04/27/18 04/28/18 04/28/18 18:59 06:59 18:59 Intake Total 1017 / 1017 1316 / 1316 100 / 100 Output Total 1750 / 1750 950 / 950 Balance -733 / -733 366 / 366 100 / 100 Weight 71.4 kg Intake: IV 150 / 150 650 / 650 100 / 100 Flexbumin 25% Inj 100 ML @ 60 100 / 100 100 / 100 100 / 100 mls/hr IV.SIG Q12H [facility] Rx#: [id number] Privigen Inj 30 GM In Bag/ 300 / 300 Syringe 1 EACH @ 37.5 mls/hr IV .SIG Q24H [facility] Rx#:[id number] Merrem Inj 1,000 MG In NS Inj 200 / 200 100 ML @ 200 mls/hr IV.SIG Q8H [facility] Rx#:[id number] Zosyn 3.375 GM Premix 3.375 gm 50 / 50 50 / 50 In 50 ml @ 100 mls/hr IV.SIG Q6H [facility] Rx#:[id number] Tube Feeding 467 / 467 566 / 566 Tube Irrigant 100 / 100 Water Bolus Amount 400 / 400 Output: Urine Amount (Catheter) 1750 / 1750 950 / 950 3-way Urethral 1750 / 1750 950 / 950 Other: Date of Last Bowel Movement 04/25/18 04/25/18 Narrative: no major change still weak and needs vent support GENERAL: Elderly white male with trach in place. SKIN: Warm and dry. HEAD: Atraumatic. Normocephalic. EYES: Pupils equal and round. No scleral icterus. No injection or drainage. ENT: No nasal bleeding or discharge. Mucous membranes pink and moist. NECK: Trachea midline. No JVD. CARDIOVASCULAR: Regular rate and rhythm. RESPIRATORY: Few scattered wheezes. breath sounds equal bilaterally. GASTROINTESTINAL: Abdomen soft, non-tender, nondistended. Hepatic and splenic margins not palpable. MUSCULOSKELETAL: Extremities without clubbing, cyanosis, or edema. No obvious deformities. NEUROLOGICAL: Awake and alert. No obvious cranial nerve deficits. Motor grossly within normal limits. PSYCHIATRIC: Seems depressed - Urinary Catheter Management Indwelling Urethral Catheter Cath placed during this visit: yes, but has since been removed by the nurse Reason for continuing: Continue criteria not met Insertion date: 04/10/18 Insertion time: 01:45 Removal date: 04/15/18 Removal time: 17:05 Condom Cath placed during this visit: no 3-way Urethral Cath placed during this visit: yes Reason for continuing: Gross Hematuria Insertion date: 04/25/18 Insertion time: 11:20 Results - Labs CBC & Chem 7: 04/26/18 11:11 04/28/18 09:23 Laboratory Results - last 24 hr 04/28/18 09:23 Sodium 147 H Potassium 3.6 Chloride 112 H Carbon Dioxide 29.9 Anion Gap 5 BUN 33 H Creatinine 0.73 Estimated GFR Greater than 89 Random Glucose 127 H Calcium 9.7 Microbiology 04/25/18 00:14 Sputum - Endotracheal Gram Stain - Final 04/25/18 00:14 Sputum - Endotracheal Sputum Culture - Final Pseudo fluorescens/putida - Imaging Impressions Chest X-Ray 04/28/18 00:00 CONCLUSION: No significant change - Procedures sniff test Assessment and Plan - Assessment (1) Respiratory failure Code(s): J96.90 - Respiratory failure, unspecified, unspecified whether with hypoxia or hypercapnia Status: Acute (2) Atelectasis Code(s): J98.11 - Atelectasis Status: Acute (3) Neck pain, chronic Code(s): M54.2 - Cervicalgia; G89.29 - Other chronic pain Status: Chronic (4) Other cervical disc degeneration at C5-C6 level Code(s): M50.322 - Other cervical disc degeneration at C5-C6 level Status: Chronic (5) Protrusion of cervical intervertebral disc Code(s): M50.20 - Other cervical disc displacement, unspecified cervical region Status: Chronic (6) Adult failure to thrive Code(s): R62.7 - Adult failure to thrive Status: Acute (7) Shortness of breath Code(s): R06.02 - Shortness of breath Status: Acute (8) Weakness generalized Code(s): R53.1 - Weakness Status: Acute (9) Acute hyponatremia Code(s): E87.1 - Hypo-osmolality and hyponatremia Status: Acute (10) Ventilator dependent Code(s): Z99.11 - Dependence on respirator [ventilator] status Status: Acute - Plan 1 CPAP during the day with FiO2 of 35% up to 12 -hours 2 wean FiO2 to keep sats greater than 92 3. IVIG infusion as ordered 4. DuoNeb nebs every 6 hours as needed 5. Labs in a.m. 6. Tracheal lavage and suction as needed 7. Continue Lovenox 40 mg subcu daily 8. Tube feeds at 55 cc/h 9. PT evaluation 10. Place on AC rate of 12 at night
[2018-04-28] MEDS: Magnesium Oxide 400 MG Tablet PO SCH (12:56)
[2018-04-28] MEDS: Sodium Chloride 0.9% Irr Bag 3,000 ML, Aminocaproic Acid Inj 3,000 MG IRRIGATION SCH ×2 (12:57)
--- NOTE | 2018-04-28 12:59 | P.PNID ---
Subjective Remarks: pt is afebrile On 35 % FiO2 growing PSAE pseudoflorescent/putida Antibiotics: meropenm Allergies/Adverse Reactions: Allergies Sulfa (Sulfonamide Antibiotics) Allergy (Severe, Verified 02/15/18 05:02) Nausea also flu like symptoms Objective Vital Signs 04/27/18 13:00 04/27/18 14:00 04/27/18 15:00 Temperature Pulse Rate 96 H 86 88 Respiratory Rate Blood Pressure 142/83 H 117/64 124/66 Pulse Oximetry 91 L 95 98 04/27/18 15:23 04/27/18 16:00 04/27/18 16:56 Temperature Pulse Rate 103 H 101 H Respiratory Rate 17 Blood Pressure 167/81 H 166/81 H Pulse Oximetry 97 97 97 04/27/18 17:00 04/27/18 18:00 04/27/18 19:00 Temperature Pulse Rate 100 H 91 H 82 Respiratory Rate Blood Pressure 168/86 H 179/84 H 133/69 Pulse Oximetry 98 98 96 04/27/18 19:58 04/27/18 20:00 04/27/18 21:00 Temperature 98.4 F Pulse Rate 87 83 Respiratory Rate 13 Blood Pressure 132/67 137/70 Pulse Oximetry 96 96 98 04/27/18 22:00 04/27/18 23:00 04/27/18 23:22 Temperature Pulse Rate 84 84 Respiratory Rate 13 Blood Pressure 136/65 125/73 Pulse Oximetry 97 97 97 04/28/18 00:00 04/28/18 01:00 04/28/18 02:00 Temperature 98.7 F Pulse Rate 92 H 84 83 Respiratory Rate Blood Pressure 150/69 H 142/68 H 143/66 H Pulse Oximetry 98 98 97 04/28/18 03:00 04/28/18 03:15 04/28/18 04:00 Temperature 98.2 F Pulse Rate 95 H 87 Respiratory Rate 12 Blood Pressure 149/70 H 143/69 H Pulse Oximetry 95 95 96 04/28/18 05:00 04/28/18 06:00 04/28/18 08:00 Temperature Pulse Rate 84 102 H Respiratory Rate 15 Blood Pressure 147/72 H 185/86 H Pulse Oximetry 94 L 95 94 L 04/28/18 10:37 04/28/18 11:50 Temperature Pulse Rate 122 H Respiratory Rate 16 17 Blood Pressure 156/79 H Pulse Oximetry 95 Intake & Output 04/27/18 04/28/18 04/28/18 18:59 06:59 18:59 Intake Total 1017 / 1017 1316 / 1316 200 / 200 Output Total 1750 / 1750 950 / 950 Balance -733 / -733 366 / 366 200 / 200 Weight 71.4 kg Intake: IV 150 / 150 650 / 650 200 / 200 Flexbumin 25% Inj 100 ML @ 60 100 / 100 100 / 100 100 / 100 mls/hr IV.SIG Q12H [facility] Rx#: [id number] Privigen Inj 30 GM In Bag/ 300 / 300 Syringe 1 EACH @ 37.5 mls/hr IV .SIG Q24H [facility] Rx#:[id number] Merrem Inj 1,000 MG In NS Inj 200 / 200 100 / 100 100 ML @ 200 mls/hr IV.SIG Q8H [facility] Rx#:[id number] Zosyn 3.375 GM Premix 3.375 gm 50 / 50 50 / 50 In 50 ml @ 100 mls/hr IV.SIG Q6H [facility] Rx#:[id number] Tube Feeding 467 / 467 566 / 566 Tube Irrigant 100 / 100 Water Bolus Amount 400 / 400 Output: Urine Amount (Catheter) 1750 / 1750 950 / 950 3-way Urethral 1750 / 1750 950 / 950 Other: Date of Last Bowel Movement 04/25/18 04/25/18 04/25/18 00:14 Sputum - Endotracheal Gram Stain - Final 04/25/18 00:14 Sputum - Endotracheal Sputum Culture - Final Pseudo fluorescens/putida 04/11/18 18:00 Bronchial Washings - Left Lower Lobe Fungal Smear - Final No fungal elements seen 04/11/18 18:00 Bronchial Washings - Left Lower Lobe Fungal Culture - Preliminary No growth in 2 weeks 04/11/18 18:00 Bronchial Washings - Left Lower Lobe Acid Fast Bacilli Smear - Final No acid fast bacilli seen 04/11/18 18:00 Bronchial Washings - Left Lower Lobe Mycobacterial Culture - Preliminary No growth in 2 weeks Lab - Chemistry Results 04/27/18 04/28/18 04:31 09:23 Sodium 146 H 147 H Potassium 4.1 3.6 Chloride 110 H 112 H Carbon Dioxide 29.5 29.9 Anion Gap 7 5 BUN 29 H 33 H Creatinine 0.77 0.73 Estimated GFR Greater than 89 Greater than 89 Random Glucose 112 H 127 H Calcium 9.1 9.7 Phosphorus 2.8 Magnesium 2.5 Imaging: ITS Impressions Head CT 03/31/18 12:16 CONCLUSION: 1. Negative CT Head non contrast. . Chest CTA 03/31/18 14:39 CONCLUSION: 1. Bibasilar atelectatic changes, left greater than right. No confluent infiltrate. 2. No pulmonary embolus. 3. Atherosclerotic calcification of the coronary arteries. Abdomen/Bladder Ultrasound 04/10/18 08:05 CONCLUSION: 1. Probable complex cyst coming off the right lower pole kidney appears smaller since 2017 CT examination of the abdomen. Abdomen X-Ray 04/15/18 05:07 CONCLUSION: Dobbhoff tube tip now seen in the stomach. Gallbladder Ultrasound 04/16/18 00:00 CONCLUSION: 1. Minimal prominence of the gallbladder wall. No pericholecystic fluid is seen no stones are evident. 2. Increased echogenicity of the liver suggesting fatty infiltration. Abdomen/Pelvis CT 04/19/18 10:15 CONCLUSION: 1. Tiny 1 mm calculus now noted in the posterior left side of the bladder which could represent a small bladder calculi or distal ureteral calculus. 2. The left kidney appears unremarkable and there is no hydronephrosis. The ureters appear within normal limits. 3. Single tiny nonobstructing right renal calculus without change. The previously noted complex cystic lesion in the lower pole is faintly visualized. 4. Nonspecific bowel gas pattern which may represent an ileus. Chest Fluoroscopy 04/21/18 00:00 CONCLUSION: No diaphragmatic motion on either side. Respiratory pattern suspicious for high neurological deficit above C5. Repeat MRI of the brain, cervical and without and with contrast while ventilated to exclude motion artifact would be very helpful. Cervical Spine MRI 04/24/18 00:00 CONCLUSION: 1. Subtle increased signal in the cord beginning at the C4 level extending distally. There is no abnormal contrast enhancement. 2. This is seen best on the sagittal IR image set. Head MRI 04/24/18 00:00 CONCLUSION: 1. Negative MRI of the brain without and with contrast Chest CT 04/26/18 00:00 CONCLUSION: Slight improvement in aeration. Chest X-Ray 04/28/18 00:00 CONCLUSION: No significant change Physical Exam: GENERAL: NAD awake, SKIN: Warm and dry. NECK: Trach in place, + some secretons. No JVD. CARDIOVASCULAR: Regular , rate, rhtyms RESPIRATORY: No accessory muscle use. Ronchi and wheezing to auscultation Breath sounds equal, decreased R base GASTROINTESTINAL: Abdomen soft, non-tender, nondistended. Hepatic and splenic margins not palpable. 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
[2018-04-28] MEDS: Piperacil/Tazo 4.5 GM Premix 4.5 GM/100 ML BAG IV.SIG SCH ×2 (16:34→21:33)
--- NOTE | 2018-04-28 18:12 | P.PNCC ---
Subjective Subjective Remarks/Hospital Course: This 67-year-old came into the emergency room today with his and daughter. On 02/13/2018, he had a microdiscectomy, C5-C6, by Dr. Schwarz. He was discharged home the next day. A few days after, he had not been feeling well, short of breath, disoriented, generally weak, symptoms were getting worse, disorientation was worse. He was referred to emergency department by his primary care physician for an evaluation. In the ED he was found to be in severe hypercarbic respiratory acidosis and was intubated by ED attending. 04/01: CO2 retention corrected. Remains mildly alkalotic due to chronic CO2 elevation. PH normalized. Still requiring vasopressor therapy with norepinephrine. Broad-spectrum antibiotic coverage started. Lumbar puncture performed with opening pressure 20 and crystal-clear fluid, sent for cell counts , chemistries and culture. HSV included. One extra tube sent for future studies if necessary. Ammonia level 71 - repeat daily. 04/02: CSF appears benign. Repeat ammonia level normal. Gamma GT normal. Cardiac echo estimated of 45% ejection fraction requires a little additional investigation -patient has been chronically short of breath for several weeks now. Leukocytosis and left shift persists. Gram-positive cocci and white cells seen in sputum. This man clearly became acutely and critically ill - exact cause still eludes us. 04/03: Leukocytosis improved. Remains quite rigid when stimulated. Continues to move 4 limbs with purpose and follows commands with 4 limbs. Sputum demonstrates white blood cells and gram-negative rods. 04/04: Improved color and perfusion. Extubated yesterday afternoon but failed after about 45 minutes -developed somnolence then obtundation, appeared to be having difficulty taking a breath, concern for vocal cord dysfunction. On reintubation the cord edges were irregular but otherwise normal in appearance. I could not assess cord function as patient was not alert enough to cooperate with commands. We will definitely pursue possibilities of vocal cord dysfunction and or phrenic nerve paralysis once we get him extubated. Ideally, a sniff test under fluoroscopy would demonstrate any paradoxical diaphragm motion. 04/05: Afebrile. Neurologically appears intact. Daughter concerned about "appears distant" however on 40 mcg/kg/min of propofol and 250 mcg an hour fentanyl. No bowel movement since admission. Tube feeding only at 20 cc an hour. 04/06: Afebrile. Neurologically intact. Following commands.. Positive BM. Labile blood pressures yesterday. Replace potassium currently. 04/07: Patient writing notes today. Chest x-ray clear. Elevated left diaphragm , probably dysfunctional. Continued encephalopathy and generalized weakness chris very concerning. We will try Aminophyllin today to see if we can get some diaphragm and central nervous system stimulation. 04/08: Started on theophylline yesterday. Check level in a.m. Will attempt PSV trial today. Noted pulmonology requests possible T-bar with ABG when appropriate. Afebrile. 04/09: T-max 100. theophylline currently 3.7. Currently on CPAP trials. 02/18. 45%. Check ABG at 10 today. Desaturated yesterday currently back at 40%. 04/10: Resting in bed. Episode of nausea overnight. Negative workup. Evaluated positive BM 04/08. Patient more agitated overnight. Propofol discontinued due to hypotension. Currently on fentanyl drip. Theophylline. Creatinine currently 2.0 we will consult nephrology. Discontinue lisinopril. Receiving one half normal saline bolus currently. 04/11: T-max 101.1. Increasing O2 records.Increasing white blood cell count. For the cuff is overinflated to palpate the vocal cords. Leak by examination. Will change ET tube in place central line today. Empirically start antibiotics for aspiration. Not tolerating tube feeds and currently to low inner wall suction. Check KUB after ET tube exchange and central line placement. Restart metoclopramide. Positive BMs. 04/12: Yesterday, CT thorax revealed collapsed left lower lung. Status post bronchoscopy with reinflation of lung. Better saturations today. Continues with small and large bowel colonic distention. Right: 11 cm. GI is following. Might need decompression. Current orogastric tube to low intermittent wall suction. 04/13: Improved small and large bowel colonic distention. Down to 8 cm long family discussion. We will perform percutaneous tracheostomy and PEG tube as well. Request second neurological opinion. In better spirits today. 04/14: no changes. awakens and follows commands. plan for trach today. 2/2: s/p trach yesterday. awake and alert. calm. looks more comfortable than yesterday. did not tolerate PRVC today, but tolerates PSV with high support (24/ 5/35%). 2/3: complaining of new RUQ pain. ?+Fry's sign. labs wnl today. no other complaints. denies nausea or vomiting. still has diarrhea, but this is slowing down after holding bowel regimen. ROS otherwise negative. 04/17: Gallbladder ultrasound appears benign. No new complaints. 04/18: Remains on the vent. Tolerated approximately 7 hours of CPAP yesterday with high PS. Still complaining of diarrhea. Most likely induced by tube feeds. Potassium remains low at 2.7. Potassium replacement in addition to protocol given followed by KCl 20 meq twice daily scheduled. Probably GI loss 04/19: Clinically improving tolerating CPAP better today. Pressure support reduced to 12. Near normal strength normal reflexes normal sensation. Continue aggressive potassium and phosphorus replacement. 04/20: Irrigation Lehman placed and bladder for removal of large blood clots. Will delay bedside sniff test until urinary problems clear up. Anticipate indirect laryngoscopy to nasal approach soon. 04/21: Bleeding from Lehman catheter markedly reduced, just pink fluid now. Awake and alert this morning. We will attempt sniff test this morning under fluoroscopy. Update: Sniff test performed under fluoroscopy by Dr. Ritesh Damon shows no diaphragmatic function on either left or right side. The patient participated well with the testing clearly used his intercostal and shoulder muscles vigorously. This pattern is clearly more consistent with a neurological illness and pretty much eliminates the likelihood of traumatic etiology. 04/22: Dr. Ritesh Damon finds and recommends: No diaphragmatic motion on either side. Respiratory pattern suspicious for high neurological deficit above C5. Repeat MRI of the brain, cervical and without and with contrast while ventilated to exclude motion artifact would be very helpful. 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 04/23: Continuing on spontaneous breathing trials with elevated pressure support. Using exaggerated accessory muscles the patient is able to breathe through relative comfort. 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 We plan to get repeat MRI brain and c-spine tomorrow - w/wo contrast per Dr. Ritesh Damon request. 04/24: Continued progress on spontaneous breathing trials but still requiring increased pressure support. We will continue to rest him at night. Continually low phosphorus is not helping muscle stamina, continue to replace aggressively. Repeat MRI of head and C-spine performed today, will review comparison to old study. SUBJECTIVE: 04/25: cysto today to evacuate clots. no other changes. awake and alert. denies new complaints. wbc slightly uptrended. 04/26: no more hematuria. CBI stopped this AM. discussed with urologist: plan to keep lehman at least 1 week or until more mobile. risk of urinary retention is high and repeat catheterization has high likelihood of causing additional bleeding. discussion with neurology: plan to start IVIG for possible GBS vs. auto-immune or transverse myelitis type neuromuscular weakness. 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 We will start looking into referral centers who have therapies targeted to diaphragmatic paralysis. ROS negative. 04/27: ambulating farther than yesterday. has been accepted by [facility] for further workup and consideration of diaphragmatic pacemaker, but awaiting bed. no changes. 04/28: walked 7 room-lengths today towards his goal of walking around the unit. still awaiting bed at [facility]. otherwise no complaints. Objective Vital Signs / I&O: Vital Signs 04/27/18 19:00 04/27/18 19:58 04/27/18 20:00 Temperature 36.9 C Pulse Rate 82 87 Respiratory Rate 13 Blood Pressure 133/69 132/67 Pulse Oximetry 96 96 96 04/27/18 21:00 04/27/18 22:00 04/27/18 23:00 Temperature Pulse Rate 83 84 84 Respiratory Rate Blood Pressure 137/70 136/65 125/73 Pulse Oximetry 98 97 97 04/27/18 23:22 04/28/18 00:00 04/28/18 01:00 Temperature 37.1 C Pulse Rate 92 H 84 Respiratory Rate 13 Blood Pressure 150/69 H 142/68 H Pulse Oximetry 97 98 98 04/28/18 02:00 04/28/18 03:00 04/28/18 03:15 Temperature Pulse Rate 83 95 H Respiratory Rate 12 Blood Pressure 143/66 H 149/70 H Pulse Oximetry 97 95 95 04/28/18 04:00 04/28/18 05:00 04/28/18 06:00 Temperature 36.8 C Pulse Rate 87 84 102 H Respiratory Rate Blood Pressure 143/69 H 147/72 H 185/86 H Pulse Oximetry 96 94 L 95 04/28/18 07:00 04/28/18 08:00 04/28/18 09:00 Temperature Pulse Rate 99 H 103 H 91 H Respiratory Rate 15 Blood Pressure 159/73 H 176/80 H 145/73 H Pulse Oximetry 94 L 94 L 94 L 04/28/18 10:00 04/28/18 10:37 04/28/18 11:00 Temperature Pulse Rate 100 H 122 H 118 H Respiratory Rate 16 Blood Pressure 156/79 H 156/79 H 144/98 H Pulse Oximetry 95 97 04/28/18 11:50 04/28/18 12:00 04/28/18 13:01 Temperature 36.9 C Pulse Rate 119 H 107 H Respiratory Rate 17 Blood Pressure 138/77 136/82 Pulse Oximetry 95 95 90 L 04/28/18 14:00 04/28/18 15:00 04/28/18 15:10 Temperature Pulse Rate 108 H 111 H Respiratory Rate 15 Blood Pressure 137/77 154/95 H Pulse Oximetry 92 L 96 95 04/28/18 16:00 04/28/18 17:00 Temperature 37.2 C Pulse Rate 104 H 103 H Respiratory Rate Blood Pressure 177/84 H 158/79 H Pulse Oximetry 94 L 93 L Intake & Output 04/27/18 04/28/18 04/28/18 18:59 06:59 18:59 Intake Total 1017 / 1017 1316 / 1316 200 / 200 Output Total 1750 / 1750 950 / 950 Balance -733 / -733 366 / 366 200 / 200 Weight 71.4 kg Intake: IV 150 / 150 650 / 650 200 / 200 Flexbumin 25% Inj 100 ML @ 60 100 / 100 100 / 100 100 / 100 mls/hr IV.SIG Q12H GIGI Rx#: [id number] Privigen Inj 30 GM In Bag/ 300 / 300 Syringe 1 EACH @ 37.5 mls/hr IV .SIG Q24H GIGI Rx#:[id number] Merrem Inj 1,000 MG In NS Inj 200 / 200 100 / 100 100 ML @ 200 mls/hr IV.SIG Q8H GIGI Rx#:[id number] Zosyn 3.375 GM Premix 3.375 gm 50 / 50 50 / 50 In 50 ml @ 100 mls/hr IV.SIG Q6H GIGI Rx#:[id number] Tube Feeding 467 / 467 566 / 566 Tube Irrigant 100 / 100 Water Bolus Amount 400 / 400 Output: Urine Amount (Catheter) 1750 / 1750 950 / 950 3-way Urethral 1750 / 1750 950 / 950 Other: Date of Last Bowel Movement 04/25/18 04/25/18 04/25/18 Result Diagrams: 04/26/18 11:11 04/28/18 09:23 Objective Remarks: GENERAL: 67-year-old male. Awake alert SKIN: Warm and dry. HEAD: Atraumatic. Normocephalic. EYES: Pupils equal and round. No scleral icterus. No injection or drainage. ENT: No nasal bleeding or discharge. Mucous membranes pink and moist. Dobbhoff tube in place NECK: Trachea midline. No JVD. Trach site with some minor oozing. CARDIOVASCULAR: RRR sinus. RESPIRATORY: Lungs generally clear. Tolerating longer stretches of spontaneous breathing trials but requiring elevated pressure support. GASTROINTESTINAL: Abdomen slightly protuberant/non-tender, soft MUSCULOSKELETAL: Extremities without clubbing, cyanosis, trace to 1+ edema. No obvious deformities. NEUROLOGICAL: Follows commands and moves extremities to command. Limb strength 5 /5. No focal deficits. DTRs 3+ both knees. No clonus Assessment and Plan - Problem List (1) BUDDY (acute kidney injury) Code(s): N17.9 - Acute kidney failure, unspecified Status: Acute (2) BUDDY (acute kidney injury) Code(s): N17.9 - Acute kidney failure, unspecified Status: Acute (3) Acute hyponatremia Code(s): E87.1 - Hypo-osmolality and hyponatremia Status: Acute (4) Adult failure to thrive Code(s): R62.7 - Adult failure to thrive Status: Acute (5) Atelectasis Code(s): J98.11 - Atelectasis Status: Acute (6) Gross hematuria Code(s): R31.0 - Gross hematuria Status: Acute (7) Hypernatremia Code(s): E87.0 - Hyperosmolality and hypernatremia Status: Acute (8) Ileus Code(s): K56.7 - Ileus, unspecified Status: Acute (9) Leukocytosis Code(s): D72.829 - Elevated white blood cell count, unspecified Status: Acute (10) Respiratory failure Code(s): J96.90 - Respiratory failure, unspecified, unspecified whether with hypoxia or hypercapnia Status: Acute (11) Shortness of breath Code(s): R06.02 - Shortness of breath Status: Acute (12) Ventilator dependent Code(s): Z99.11 - Dependence on respirator [ventilator] status Status: Acute (13) Weakness generalized Code(s): R53.1 - Weakness Status: Acute (14) Neck pain, chronic Code(s): M54.2 - Cervicalgia; G89.29 - Other chronic pain Status: Chronic (15) Other cervical disc degeneration at C5-C6 level Code(s): M50.322 - Other cervical disc degeneration at C5-C6 level Status: Chronic (16) Protrusion of cervical intervertebral disc Code(s): M50.20 - Other cervical disc displacement, unspecified cervical region Status: Chronic - Assessment and Plan Plan: Neuro/Psych: History of anterior C5/6 microdiscectomy with fusion Not requiring any continuous sedation at this time Goal of RASS 0 Evaluated by neurosurgery/Dr. Viera. No intervention planned at this time CT brain/MRI C-spine negative EEG revealed no epileptic activity Neurology following. Recommend myasthenia gravis lab. Negative to date. No evidence of GBS Left diaphragm remains elevated, suspect not functioning well. Requested second opinion for neurological status See neurology note. Overall strength clinically improving Need aggressive potassium and phosphorus replacement Wound remains well healed and clean Findings of bilateral diaphragm paralysis largely rules out operative injury. continue IVIG per neurology CV: Systolic heart failure unknown if acute or chronic Essential hypertension Hyperlipidemia Ejection fraction 45% on admission. Appreciate cardiac evaluation by Dr. Escobedo. No plans at this time Holding amlodipine 10 mg daily, and metoprolol tartrate 12.5 mg twice daily for hypertension Holding clonidine 0.1 twice daily and lisinopril 5 mg daily in light of hypotension/lisinopril for acute kidney injury Continue pravastatin 40 mg daily for dyslipidemia. Continue aspirin 81 mg by mouth daily. Still holding antihypertensives. Holding aspirin while bladder bleeding continues Due to increasing peripheral edema we will initiate diuretic therapy. Resp: Acute hypercapnic respiratory failure- now chronic Klebsiella oxytoca pneumonia PRVC ventilation. Ventilator bundle. Head of bed at 30 degrees Albuterol/ipratropium aerosols every 4 hours with albuterol aerosols every 2 hours as needed dyspnea Will need sniff test to assess diaphragmatic function once off vent We will consult ENT to assess vocal cords when appropriate Appreciate pulmonary input. Spontaneous breathing trial daily. 02/08 discontinued theophylline 400 mg daily acute delirium. Noted level. 04/09 3.7 Status post bronchoscopy 04/11. Thick white purulent secretions left lower lobe suction to clear. General surgery s/p percutaneous tracheostomy 04/14: Dr. Conde daily weaning of CPAP/pressure support. 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 Continue spontaneous breathing trials daily, rest on rate at night. -needs to be OOB and ambulating. made a plan today with RT and PT to walk daily with a 2-week goal of ambulating around the unit. -Also started possible transfer process to find a referral facility who evaluates and manages diaphragmatic paralysis, with possible need for diaphragm pacemaker: accepted by [facility], awaiting bed. GI: Gastroesophageal reflux disease Transaminitis Hypoalbuminemia Ileus new RUQ pain Acute protein calorie malnutrition- severe Tube feeding at 60 cc an hour days. At home on pantoprazole 40 mg daily. Currently on lansoprazole 30 mg daily holding bowel regimen for diarrhea add fiber to diet. RUQ ultrasound -benign Follow liver function tests, lipase No evidence of liver injury. Follow prealbumin weekly. failed speech swallow eval 04/26. continue NPO with tube feeds. : hematuria- resolved Irrigation Lehman in place because of acute bladder bleeding with clots. Urine largely clear with mild billie. No clots. keep lehman x at least 1 week (through 05/03) and until patient ambulating with low risk of retention (per Dr. Isaac with urology). Endo: Hypothyroidism Hypokalemia Hypophosphatemia TSH 1.28. Continue levothyroxine 125 mg by mouth daily Sliding scale insulin if indicated to maintain euglycemia Aggressive electrolyte replacement Continue scheduled thyroxine Follow TSH Renal: Kidney injury - acute, resolved. Avoid all nephrotoxic medications Creatinine currently 1.1 Neurology consultation for evaluation this is contrast-induced nephropathy from scans 03/31. Avoid nephrotoxic medication. Lisinopril discontinued. Accurate I's and O's difficult to obtain with bladder irrigation Heme: Normocytic anemia Leukocytosis Monitor CBC daily. Follow trends per No indication for transfusion of blood proximal to this time. ID: Klebsiella oxytoca pneumonia sputum 04/01 Completed with ceftriaxone per infectious disease. Started on piperacillin/tazobactam 04/11 due to aspiration, anticipated stop date 04/19 Lumbar puncture negative. HSV negative No growth to date on other cultures aside from sputum Lung ceron remain clear No evidence of ongoing infection. FEN: Hypernatremia-resolved Hypopotassemia Hypokalemia Free water 200 cc every 6 hours. Replace electrolytes as clinically indicated per ICU electrolyte protocol. Recheck electrolytes in a.m. Increase scheduled potassium replacement 50 MEQ twice daily MSK: PT evaluate and treat up to chair daily OT evaluate and treat Access -Utilize peripheral IV. Prophylaxis -GI -lansoprazole -DVT -SCD/enoxaparin Overall impression: Remains weak and de conditioned but improving strength on spontaneous breathing trials.. We continue to work on nutrition and ventilator weaning. OOB and working with PT daily. We are presently looking at disease processes which could lead to bilateral diaphragmatic paresis.
[2018-04-28 19:28] LABS: Bilirubin,Urine Negative (Negative); Clarity,Urine Hazy (Clear); Color,Urine Yellow (Yellw/Straw); Glucose,Urine (UA) Negative (Negative); Leukocyte Esterase,Urine Trace (Negative); Mucus,Urine Few /lpf (Occasional); Nitrite,Urine Negative (Negative); Specific Gravity,Urine 1.021 (1.002-1.035)
[2018-04-29] MEDS: Magnesium Oxide 400 MG Tablet PO SCH ×3 (00:03→22:11)
[2018-04-29] MEDS: Artificial Tears Opth Drops 15 ML Bottle EACH EYE SCH ×3 (00:06→19:12)
[2018-04-29] MEDS: Oral Hygiene Kit OROPHARYNG SCH ×4 (00:07→19:12)
[2018-04-29] MEDS: Piperacil/Tazo 4.5 GM Premix 4.5 GM/100 ML BAG IV.SIG SCH ×4 (01:40→22:03)
[2018-04-29] MEDS: hydrALAZINE 50 MG Tablet PO SCH ×3 (05:38→22:06)
[2018-04-29] MEDS: Levothyroxine 125 MCG Tablet PO SCH (05:38)
[2018-04-29] MEDS: Albumin Human 25% Inj 100 ML IV.SIG SCH ×2 (05:39→19:58)
--- NOTE | 2018-04-29 08:47 | P.PNCC ---
Subjective Subjective Remarks/Hospital Course: This 67-year-old came into the emergency room today with his and daughter. On 02/13/2018, he had a microdiscectomy, C5-C6, by Dr. Schwarz. He was discharged home the next day. A few days after, he had not been feeling well, short of breath, disoriented, generally weak, symptoms were getting worse, disorientation was worse. He was referred to emergency department by his primary care physician for an evaluation. In the ED he was found to be in severe hypercarbic respiratory acidosis and was intubated by ED attending. 04/01: CO2 retention corrected. Remains mildly alkalotic due to chronic CO2 elevation. PH normalized. Still requiring vasopressor therapy with norepinephrine. Broad-spectrum antibiotic coverage started. Lumbar puncture performed with opening pressure 20 and crystal-clear fluid, sent for cell counts , chemistries and culture. HSV included. One extra tube sent for future studies if necessary. Ammonia level 71 - repeat daily. 04/02: CSF appears benign. Repeat ammonia level normal. Gamma GT normal. Cardiac echo estimated of 45% ejection fraction requires a little additional investigation -patient has been chronically short of breath for several weeks now. Leukocytosis and left shift persists. Gram-positive cocci and white cells seen in sputum. This man clearly became acutely and critically ill - exact cause still eludes us. 04/03: Leukocytosis improved. Remains quite rigid when stimulated. Continues to move 4 limbs with purpose and follows commands with 4 limbs. Sputum demonstrates white blood cells and gram-negative rods. 04/04: Improved color and perfusion. Extubated yesterday afternoon but failed after about 45 minutes -developed somnolence then obtundation, appeared to be having difficulty taking a breath, concern for vocal cord dysfunction. On reintubation the cord edges were irregular but otherwise normal in appearance. I could not assess cord function as patient was not alert enough to cooperate with commands. We will definitely pursue possibilities of vocal cord dysfunction and or phrenic nerve paralysis once we get him extubated. Ideally, a sniff test under fluoroscopy would demonstrate any paradoxical diaphragm motion. 04/05: Afebrile. Neurologically appears intact. Daughter concerned about "appears distant" however on 40 mcg/kg/min of propofol and 250 mcg an hour fentanyl. No bowel movement since admission. Tube feeding only at 20 cc an hour. 04/06: Afebrile. Neurologically intact. Following commands.. Positive BM. Labile blood pressures yesterday. Replace potassium currently. 04/07: Patient writing notes today. Chest x-ray clear. Elevated left diaphragm , probably dysfunctional. Continued encephalopathy and generalized weakness chris very concerning. We will try Aminophyllin today to see if we can get some diaphragm and central nervous system stimulation. 04/08: Started on theophylline yesterday. Check level in a.m. Will attempt PSV trial today. Noted pulmonology requests possible T-bar with ABG when appropriate. Afebrile. 04/09: T-max 100. theophylline currently 3.7. Currently on CPAP trials. 02/18. 45%. Check ABG at 10 today. Desaturated yesterday currently back at 40%. 04/10: Resting in bed. Episode of nausea overnight. Negative workup. Evaluated positive BM 04/08. Patient more agitated overnight. Propofol discontinued due to hypotension. Currently on fentanyl drip. Theophylline. Creatinine currently 2.0 we will consult nephrology. Discontinue lisinopril. Receiving one half normal saline bolus currently. 04/11: T-max 101.1. Increasing O2 records.Increasing white blood cell count. For the cuff is overinflated to palpate the vocal cords. Leak by examination. Will change ET tube in place central line today. Empirically start antibiotics for aspiration. Not tolerating tube feeds and currently to low inner wall suction. Check KUB after ET tube exchange and central line placement. Restart metoclopramide. Positive BMs. 04/12: Yesterday, CT thorax revealed collapsed left lower lung. Status post bronchoscopy with reinflation of lung. Better saturations today. Continues with small and large bowel colonic distention. Right: 11 cm. GI is following. Might need decompression. Current orogastric tube to low intermittent wall suction. 04/13: Improved small and large bowel colonic distention. Down to 8 cm long family discussion. We will perform percutaneous tracheostomy and PEG tube as well. Request second neurological opinion. In better spirits today. 04/14: no changes. awakens and follows commands. plan for trach today. 2/2: s/p trach yesterday. awake and alert. calm. looks more comfortable than yesterday. did not tolerate PRVC today, but tolerates PSV with high support (24/ 5/35%). 2/3: complaining of new RUQ pain. ?+Fry's sign. labs wnl today. no other complaints. denies nausea or vomiting. still has diarrhea, but this is slowing down after holding bowel regimen. ROS otherwise negative. 04/17: Gallbladder ultrasound appears benign. No new complaints. 04/18: Remains on the vent. Tolerated approximately 7 hours of CPAP yesterday with high PS. Still complaining of diarrhea. Most likely induced by tube feeds. Potassium remains low at 2.7. Potassium replacement in addition to protocol given followed by KCl 20 meq twice daily scheduled. Probably GI loss 04/19: Clinically improving tolerating CPAP better today. Pressure support reduced to 12. Near normal strength normal reflexes normal sensation. Continue aggressive potassium and phosphorus replacement. 04/20: Irrigation Lehman placed and bladder for removal of large blood clots. Will delay bedside sniff test until urinary problems clear up. Anticipate indirect laryngoscopy to nasal approach soon. 04/21: Bleeding from Lehman catheter markedly reduced, just pink fluid now. Awake and alert this morning. We will attempt sniff test this morning under fluoroscopy. Update: Sniff test performed under fluoroscopy by Dr. Ritesh Damon shows no diaphragmatic function on either left or right side. The patient participated well with the testing clearly used his intercostal and shoulder muscles vigorously. This pattern is clearly more consistent with a neurological illness and pretty much eliminates the likelihood of traumatic etiology. 04/22: Dr. Ritesh Damon finds and recommends: No diaphragmatic motion on either side. Respiratory pattern suspicious for high neurological deficit above C5. Repeat MRI of the brain, cervical and without and with contrast while ventilated to exclude motion artifact would be very helpful. 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 04/23: Continuing on spontaneous breathing trials with elevated pressure support. Using exaggerated accessory muscles the patient is able to breathe through relative comfort. 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 We plan to get repeat MRI brain and c-spine tomorrow - w/wo contrast per Dr. Ritesh Damon request. 04/24: Continued progress on spontaneous breathing trials but still requiring increased pressure support. We will continue to rest him at night. Continually low phosphorus is not helping muscle stamina, continue to replace aggressively. Repeat MRI of head and C-spine performed today, will review comparison to old study. SUBJECTIVE: 04/25: cysto today to evacuate clots. no other changes. awake and alert. denies new complaints. wbc slightly uptrended. 04/26: no more hematuria. CBI stopped this AM. discussed with urologist: plan to keep lehman at least 1 week or until more mobile. risk of urinary retention is high and repeat catheterization has high likelihood of causing additional bleeding. discussion with neurology: plan to start IVIG for possible GBS vs. auto-immune or transverse myelitis type neuromuscular weakness. I had a long discussion with the patient and his today where we reviewed his current active medical problems as well as roasterman planning, prognosis, and ongoing work-up for each. We will start looking into referral centers who have therapies targeted to diaphragmatic paralysis. ROS negative. 04/27: ambulating farther than yesterday. has been accepted by [facility] for further workup and consideration of diaphragmatic pacemaker, but awaiting bed. no changes. 04/28: walked 7 room-lengths today towards his goal of walking around the unit. still awaiting bed at [facility]. otherwise no complaints. 04/29: doing well. plan to walk 9 room-lengths today. discussed with [facility] and still no bed available. denies complaints. +BM today. Objective Vital Signs / I&O: Vital Signs 04/28/18 09:00 04/28/18 10:00 04/28/18 10:37 Temperature Pulse Rate 91 H 100 H 122 H Respiratory Rate 16 Blood Pressure 145/73 H 156/79 H 156/79 H Pulse Oximetry 94 L 95 04/28/18 11:00 04/28/18 11:50 04/28/18 12:00 Temperature 36.9 C Pulse Rate 118 H 119 H Respiratory Rate 17 Blood Pressure 144/98 H 138/77 Pulse Oximetry 97 95 95 04/28/18 13:01 04/28/18 14:00 04/28/18 15:00 Temperature Pulse Rate 107 H 108 H 111 H Respiratory Rate Blood Pressure 136/82 137/77 154/95 H Pulse Oximetry 90 L 92 L 96 04/28/18 15:10 04/28/18 16:00 04/28/18 17:00 Temperature 37.2 C Pulse Rate 104 H 103 H Respiratory Rate 15 Blood Pressure 177/84 H 158/79 H Pulse Oximetry 95 94 L 93 L 02/15/19 18:00 04/28/18 19:01 04/28/18 19:55 Temperature Pulse Rate 101 H 98 H Respiratory Rate 12 Blood Pressure 134/69 150/75 H Pulse Oximetry 92 L 95 97 04/28/18 20:00 04/28/18 21:00 04/28/18 22:00 Temperature 36.9 C Pulse Rate 104 H 86 84 Respiratory Rate 15 12 14 Blood Pressure 133/69 166/78 H 153/74 H Pulse Oximetry 94 L 96 96 04/28/18 23:00 04/28/18 23:04 04/29/18 00:00 Temperature 36.9 C Pulse Rate 82 93 H Respiratory Rate 13 14 Blood Pressure 130/61 153/78 H Pulse Oximetry 97 95 04/29/18 01:00 04/29/18 02:00 04/29/18 03:00 Temperature Pulse Rate 95 H 79 79 Respiratory Rate 14 13 Blood Pressure 135/70 131/64 138/67 Pulse Oximetry 95 95 04/29/18 03:43 04/29/18 04:00 04/29/18 05:00 Temperature 36.6 C Pulse Rate 80 79 Respiratory Rate 13 15 14 Blood Pressure 144/81 H 144/81 H Pulse Oximetry 95 97 97 04/29/18 06:00 04/29/18 07:00 Temperature Pulse Rate 79 80 Respiratory Rate 15 12 Blood Pressure 163/77 H 160/74 H Pulse Oximetry 99 97 Intake & Output 04/28/18 04/29/18 04/29/18 18:59 06:59 18:59 Intake Total 1979 / 1979 1467 / 1467 Output Total 1700 / 1700 750 / 750 Balance 280 / 280 717 / 717 Weight 71.6 kg Intake: IV 300 / 300 600 / 600 Flexbumin 25% Inj 100 ML @ 60 100 / 100 100 / 100 mls/hr IV.SIG Q12H GIGI Rx#: [id number] Privigen Inj 30 GM In Bag/ 300 / 300 Syringe 1 EACH @ 37.5 mls/hr IV .SIG Q24H GIGI Rx#:[id number] Merrem Inj 1,000 MG In NS Inj 100 / 100 100 ML @ 200 mls/hr IV.SIG Q8H IGGI Rx#:[id number] Zosyn 4.5 GM Premix 4.5 gm In 100 / 100 200 / 200 100 ml @ 200 mls/hr IV.SIG Q6H GIGI Rx#:[id number] Oral 0 / 0 Tube Feeding 720 / 720 717 / 717 Tube Irrigant 960 / 960 150 / 150 Output: Urine Amount (Catheter) 1700 / 1700 750 / 750 3-way Urethral 1700 / 1700 750 / 750 Other: Date of Last Bowel Movement 04/25/18 04/29/18 # Incontinent Bowel Movements 1 Result Diagrams: 04/26/18 11:11 04/28/18 09:23 Objective Remarks: GENERAL: 67-year-old male. Awake alert SKIN: Warm and dry. HEAD: Atraumatic. Normocephalic. EYES: Pupils equal and round. No scleral icterus. No injection or drainage. ENT: No nasal bleeding or discharge. Mucous membranes pink and moist. Dobbhoff tube in place NECK: Trachea midline. No JVD. Trach site with some minor oozing. CARDIOVASCULAR: RRR sinus. RESPIRATORY: Lungs generally clear. Tolerating longer stretches of spontaneous breathing trials but requiring elevated pressure support. GASTROINTESTINAL: Abdomen slightly protuberant/non-tender, soft MUSCULOSKELETAL: Extremities without clubbing, cyanosis, trace to 1+ edema. No obvious deformities. NEUROLOGICAL: Follows commands and moves extremities to command. Limb strength 5 /5. No focal deficits. DTRs 3+ both knees. No clonus Assessment and Plan - Problem List (1) BUDDY (acute kidney injury) Code(s): N17.9 - Acute kidney failure, unspecified Status: Acute (2) BUDDY (acute kidney injury) Code(s): N17.9 - Acute kidney failure, unspecified Status: Acute (3) Acute hyponatremia Code(s): E87.1 - Hypo-osmolality and hyponatremia Status: Acute (4) Adult failure to thrive Code(s): R62.7 - Adult failure to thrive Status: Acute (5) Atelectasis Code(s): J98.11 - Atelectasis Status: Acute (6) Gross hematuria Code(s): R31.0 - Gross hematuria Status: Acute (7) Hypernatremia Code(s): E87.0 - Hyperosmolality and hypernatremia Status: Acute (8) Ileus Code(s): K56.7 - Ileus, unspecified Status: Acute (9) Leukocytosis Code(s): D72.829 - Elevated white blood cell count, unspecified Status: Acute (10) Respiratory failure Code(s): J96.90 - Respiratory failure, unspecified, unspecified whether with hypoxia or hypercapnia Status: Acute (11) Shortness of breath Code(s): R06.02 - Shortness of breath Status: Acute (12) Ventilator dependent Code(s): Z99.11 - Dependence on respirator [ventilator] status Status: Acute (13) Weakness generalized Code(s): R53.1 - Weakness Status: Acute (14) Neck pain, chronic Code(s): M54.2 - Cervicalgia; G89.29 - Other chronic pain Status: Chronic (15) Other cervical disc degeneration at C5-C6 level Code(s): M50.322 - Other cervical disc degeneration at C5-C6 level Status: Chronic (16) Protrusion of cervical intervertebral disc Code(s): M50.20 - Other cervical disc displacement, unspecified cervical region Status: Chronic - Assessment and Plan Plan: Neuro/Psych: History of anterior C5/6 microdiscectomy with fusion Not requiring any continuous sedation at this time Goal of RASS 0 Evaluated by neurosurgery/Dr. Viera. No intervention planned at this time CT brain/MRI C-spine negative EEG revealed no epileptic activity Neurology following. Recommend myasthenia gravis lab. Negative to date. No evidence of GBS Left diaphragm remains elevated, suspect not functioning well. Requested second opinion for neurological status See neurology note. Overall strength clinically improving Need aggressive potassium and phosphorus replacement Wound remains well healed and clean Findings of bilateral diaphragm paralysis largely rules out operative injury. continue IVIG per neurology CV: Systolic heart failure unknown if acute or chronic Essential hypertension Hyperlipidemia Ejection fraction 45% on admission. Appreciate cardiac evaluation by Dr. Escobedo. No plans at this time Holding amlodipine 10 mg daily, and metoprolol tartrate 12.5 mg twice daily for hypertension Holding clonidine 0.1 twice daily and lisinopril 5 mg daily in light of hypotension/lisinopril for acute kidney injury Continue pravastatin 40 mg daily for dyslipidemia. Continue aspirin 81 mg by mouth daily. Still holding antihypertensives. Holding aspirin while bladder bleeding continues Due to increasing peripheral edema we will initiate diuretic therapy. Resp: Acute hypercapnic respiratory failure- now chronic Klebsiella oxytoca pneumonia PRVC ventilation. Ventilator bundle. Head of bed at 30 degrees Albuterol/ipratropium aerosols every 4 hours with albuterol aerosols every 2 hours as needed dyspnea Will need sniff test to assess diaphragmatic function once off vent We will consult ENT to assess vocal cords when appropriate Appreciate pulmonary input. Spontaneous breathing trial daily. 02/08 discontinued theophylline 400 mg daily acute delirium. Noted level. 04/09 3.7 Status post bronchoscopy 04/11. Thick white purulent secretions left lower lobe suction to clear. General surgery s/p percutaneous tracheostomy 04/14: Dr. Conde daily weaning of CPAP/pressure support. 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 Continue spontaneous breathing trials daily, rest on rate at night. -needs to be OOB and ambulating. made a plan today with RT and PT to walk daily with a 2-week goal of ambulating around the unit. -Also started possible transfer process to find a referral facility who evaluates and manages diaphragmatic paralysis, with possible need for diaphragm pacemaker: accepted by [facility], awaiting bed. GI: Gastroesophageal reflux disease Transaminitis Hypoalbuminemia Ileus new RUQ pain Acute protein calorie malnutrition- severe Tube feeding at 60 cc an hour days. At home on pantoprazole 40 mg daily. Currently on lansoprazole 30 mg daily holding bowel regimen for diarrhea add fiber to diet. RUQ ultrasound -benign Follow liver function tests, lipase No evidence of liver injury. Follow prealbumin weekly. failed speech swallow eval 04/26. continue NPO with tube feeds. : hematuria- resolved Irrigation Lehman in place because of acute bladder bleeding with clots. Urine largely clear with mild billie. No clots. keep lehman x at least 1 week (through 05/03) and until patient ambulating with low risk of retention (per Dr. Isaac with urology). Endo: Hypothyroidism Hypokalemia Hypophosphatemia TSH 1.28. Continue levothyroxine 125 mg by mouth daily Sliding scale insulin if indicated to maintain euglycemia Aggressive electrolyte replacement Continue scheduled thyroxine Follow TSH Renal: Kidney injury - acute, resolved. Avoid all nephrotoxic medications Creatinine currently 1.1 Neurology consultation for evaluation this is contrast-induced nephropathy from scans 03/31. Avoid nephrotoxic medication. Lisinopril discontinued. Accurate I's and O's difficult to obtain with bladder irrigation Heme: Normocytic anemia Leukocytosis Monitor CBC daily. Follow trends per No indication for transfusion of blood proximal to this time. ID: Klebsiella oxytoca pneumonia sputum 04/01 Completed with ceftriaxone per infectious disease. Started on piperacillin/tazobactam 04/11 due to aspiration, anticipated stop date 04/19 Lumbar puncture negative. HSV negative No growth to date on other cultures aside from sputum Lung ceron remain clear No evidence of ongoing infection. FEN: Hypernatremia-resolved Hypopotassemia Hypokalemia Free water 200 cc every 6 hours. Replace electrolytes as clinically indicated per ICU electrolyte protocol. Recheck electrolytes in a.m. Increase scheduled potassium replacement 50 MEQ twice daily MSK: PT evaluate and treat up to chair daily OT evaluate and treat Access -Utilize peripheral IV. Prophylaxis -GI -lansoprazole -DVT -SCD/enoxaparin Overall impression: Remains weak and de conditioned but improving strength on spontaneous breathing trials.. We continue to work on nutrition and ventilator weaning. OOB and working with PT daily. We are presently looking at disease processes which could lead to bilateral diaphragmatic paresis.
[2018-04-29] MEDS: Sertraline 100 MG Tablet PO SCH (09:23)
[2018-04-29] MEDS: Psyllium Husk SF 3.4 GM in 5.8 GM Packet NG/OG SCH (09:24)
[2018-04-29] MEDS: Potassium Chloride Liq 20 MEQ/15 ML UDC PO SCH ×2 (09:24→22:04)
[2018-04-29] MEDS: IVIG (Immune Globulin) Inj 30 GM in Syringe/Bag 1 EACH IV.SIG SCH (09:26)
[2018-04-29] MEDS: Labetalol HCl Inj 20 MG/4 ML Vial IV.PUSH PRN (10:15)
[2018-04-29] MEDS: Chlorhexidine 0.12% Oral Kit 15 ML UDC OROPHARYNG SCH ×2 (10:15→22:03)
--- NOTE | 2018-04-29 10:37 | P.PNPL ---
Subjective Interval history: Patient is on ventilator via trach on CPAP PS 12/7 with FIO2 35%. Afebrile. Physical Exam Vital signs: Vital Signs 04/28/18 10:37 04/28/18 11:00 04/28/18 11:50 Temperature Pulse Rate 122 H 118 H Respiratory Rate 16 17 Blood Pressure 156/79 H 144/98 H Pulse Oximetry 97 95 04/28/18 12:00 04/28/18 13:01 04/28/18 14:00 Temperature 98.5 F Pulse Rate 119 H 107 H 108 H Respiratory Rate Blood Pressure 138/77 136/82 137/77 Pulse Oximetry 95 90 L 92 L 04/28/18 15:00 04/28/18 15:10 04/28/18 16:00 Temperature 98.9 F Pulse Rate 111 H 104 H Respiratory Rate 15 Blood Pressure 154/95 H 177/84 H Pulse Oximetry 96 95 94 L 04/28/18 17:00 04/28/18 18:00 04/28/18 19:01 Temperature Pulse Rate 103 H 101 H 98 H Respiratory Rate Blood Pressure 158/79 H 134/69 150/75 H Pulse Oximetry 93 L 92 L 95 04/28/18 19:55 04/28/18 20:00 04/28/18 21:00 Temperature 98.5 F Pulse Rate 104 H 86 Respiratory Rate 12 15 12 Blood Pressure 133/69 166/78 H Pulse Oximetry 97 94 L 96 04/28/18 22:00 04/28/18 23:00 04/28/18 23:04 Temperature Pulse Rate 84 82 Respiratory Rate 14 13 Blood Pressure 153/74 H 130/61 Pulse Oximetry 96 97 04/29/18 00:00 04/29/18 01:00 04/29/18 02:00 Temperature 98.5 F Pulse Rate 93 H 95 H 79 Respiratory Rate 14 14 Blood Pressure 153/78 H 135/70 131/64 Pulse Oximetry 95 95 04/29/18 03:00 04/29/18 03:43 04/29/18 04:00 Temperature 97.9 F Pulse Rate 79 80 Respiratory Rate 13 13 15 Blood Pressure 138/67 144/81 H Pulse Oximetry 95 95 97 04/29/18 05:00 04/29/18 06:00 04/29/18 07:00 Temperature Pulse Rate 79 79 80 Respiratory Rate 14 15 12 Blood Pressure 144/81 H 163/77 H 160/74 H Pulse Oximetry 97 99 97 04/29/18 09:03 04/29/18 09:26 Temperature Pulse Rate 95 H Respiratory Rate 14 14 Blood Pressure 183/84 H Pulse Oximetry 95 Intake & Output 04/28/18 04/29/18 04/29/18 18:59 06:59 18:59 Intake Total 1979 / 1979 1467 / 1467 100 / 100 Output Total 1700 / 1700 750 / 750 Balance 280 / 280 717 / 717 100 / 100 Weight 71.6 kg Intake: IV 300 / 300 600 / 600 100 / 100 Flexbumin 25% Inj 100 ML @ 60 100 / 100 100 / 100 100 / 100 mls/hr IV.SIG Q12H GIGI Rx#: [id number] Privigen Inj 30 GM In Bag/ 300 / 300 Syringe 1 EACH @ 37.5 mls/hr IV .SIG Q24H IGGI Rx#:[id number] Merrem Inj 1,000 MG In NS Inj 100 / 100 100 ML @ 200 mls/hr IV.SIG Q8H GIGI Rx#:[id number] Zosyn 4.5 GM Premix 4.5 gm In 100 / 100 200 / 200 100 ml @ 200 mls/hr IV.SIG Q6H GIGI Rx#:[id number] Oral 0 / 0 Tube Feeding 720 / 720 717 / 717 Tube Irrigant 960 / 960 150 / 150 Output: Urine Amount (Catheter) 1700 / 1700 750 / 750 3-way Urethral 1700 / 1700 750 / 750 Other: Date of Last Bowel Movement 04/25/18 04/29/18 # Incontinent Bowel Movements 1 - Constitutional no acute distress - Routine HEENT Exam Head: Present: normocephalic, atraumatic Eye: Present: EOMI, PERRL, normal accommodation, conjunctivae pink ENT: Present: mucous membranes moist - Routine Neck Exam Present: supple, full ROM, trachea midline - Routine Respiratory Exam Present: patient mechanically ventilated, CTA bilaterally - Routine Cardiovascular Exam Present: RRR, S1, S2 - Routine Abdominal Exam Present: soft, normoactive bowel sounds - Routine Skin Exam Present: intact - Routine Neurological Exam Present: alert, oriented X3 - Urinary Catheter Management Indwelling Urethral Catheter Cath placed during this visit: yes, but has since been removed by the nurse Reason for continuing: Continue criteria not met Insertion date: 04/10/18 Insertion time: 01:45 Removal date: 04/15/18 Removal time: 17:05 Condom Cath placed during this visit: no 3-way Urethral Cath placed during this visit: yes Reason for continuing: Gross Hematuria Insertion date: 04/25/18 Insertion time: 11:20 Assessment and Plan - Assessment (1) BUDDY (acute kidney injury) Code(s): N17.9 - Acute kidney failure, unspecified Status: Acute (2) BUDDY (acute kidney injury) Code(s): N17.9 - Acute kidney failure, unspecified Status: Acute (3) Acute hyponatremia Code(s): E87.1 - Hypo-osmolality and hyponatremia Status: Acute (4) Adult failure to thrive Code(s): R62.7 - Adult failure to thrive Status: Acute (5) Atelectasis Code(s): J98.11 - Atelectasis Status: Acute (6) Gross hematuria Code(s): R31.0 - Gross hematuria Status: Acute (7) Hypernatremia Code(s): E87.0 - Hyperosmolality and hypernatremia Status: Acute (8) Ileus Code(s): K56.7 - Ileus, unspecified Status: Acute (9) Leukocytosis Code(s): D72.829 - Elevated white blood cell count, unspecified Status: Acute (10) Respiratory failure Code(s): J96.90 - Respiratory failure, unspecified, unspecified whether with hypoxia or hypercapnia Status: Acute (11) Shortness of breath Code(s): R06.02 - Shortness of breath Status: Acute (12) Ventilator dependent Code(s): Z99.11 - Dependence on respirator [ventilator] status Status: Acute (13) Weakness generalized Code(s): R53.1 - Weakness Status: Acute (14) Neck pain, chronic Code(s): M54.2 - Cervicalgia; G89.29 - Other chronic pain Status: Chronic (15) Other cervical disc degeneration at C5-C6 level Code(s): M50.322 - Other cervical disc degeneration at C5-C6 level Status: Chronic (16) Protrusion of cervical intervertebral disc Code(s): M50.20 - Other cervical disc displacement, unspecified cervical region Status: Chronic - Plan 1)Chronic resp failure s/p trach 2)LLL Pneumonia 3)cervical disc degeneration at C5-C6 level 4)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 Pulm toilet, trach care Abx per ID- On Zosyn, sputum / Psudo fluorescence Nutrition support- on tube feeds. GI/DVT prophylaxis
[2018-04-29] MEDS: Sodium Chloride 0.9% Irr Bag 3,000 ML, Aminocaproic Acid Inj 3,000 MG IRRIGATION SCH ×2 (14:14)
[2018-04-30] MEDS: Piperacil/Tazo 4.5 GM Premix 4.5 GM/100 ML BAG IV.SIG SCH ×4 (01:30→20:15)
[2018-04-30] MEDS: Oral Hygiene Kit OROPHARYNG SCH ×5 (01:31→23:41)
[2018-04-30] MEDS: Artificial Tears Opth Drops 15 ML Bottle EACH EYE SCH ×3 (01:31→16:27)
[2018-04-30 05:12] LABS: Calcium 9.3 mg/dL (8.5-10.1); Carbon Dioxide 27.8 meq/L (21.0-32.0); Magnesium 2.8 mg/dL (1.5-2.5); Phosphorus 2.7 mg/dL (2.5-4.9); Potassium 3.8 meq/L (3.5-5.1)
[2018-04-30] MEDS: Albumin Human 25% Inj 100 ML IV.SIG SCH ×2 (05:53→18:19)
[2018-04-30] MEDS: Levothyroxine 125 MCG Tablet PO SCH (05:53)
[2018-04-30] MEDS: hydrALAZINE 50 MG Tablet PO SCH ×2 (05:53→14:09)
[2018-04-30] MEDS: Potassium Chloride Liq 20 MEQ/15 ML UDC PO SCH ×2 (08:47→20:15)
[2018-04-30] MEDS: Sertraline 100 MG Tablet PO SCH (08:48)
[2018-04-30] MEDS: IVIG (Immune Globulin) Inj 30 GM in Syringe/Bag 1 EACH IV.SIG SCH (08:48)
[2018-04-30] MEDS: Chlorhexidine 0.12% Oral Kit 15 ML UDC OROPHARYNG SCH ×2 (08:48→20:15)
[2018-04-30] MEDS: Psyllium Husk SF 3.4 GM in 5.8 GM Packet NG/OG SCH (08:48)
--- NOTE | 2018-04-30 09:40 | P.PNCC ---
Subjective Subjective Remarks/Hospital Course: This 67-year-old came into the emergency room today with his and daughter. On 02/13/2018, he had a microdiscectomy, C5-C6, by Dr. Schwarz. He was discharged home the next day. A few days after, he had not been feeling well, short of breath, disoriented, generally weak, symptoms were getting worse, disorientation was worse. He was referred to emergency department by his primary care physician for an evaluation. In the ED he was found to be in severe hypercarbic respiratory acidosis and was intubated by ED attending. 04/01: CO2 retention corrected. Remains mildly alkalotic due to chronic CO2 elevation. PH normalized. Still requiring vasopressor therapy with norepinephrine. Broad-spectrum antibiotic coverage started. Lumbar puncture performed with opening pressure 20 and crystal-clear fluid, sent for cell counts , chemistries and culture. HSV included. One extra tube sent for future studies if necessary. Ammonia level 71 - repeat daily. 04/02: CSF appears benign. Repeat ammonia level normal. Gamma GT normal. Cardiac echo estimated of 45% ejection fraction requires a little additional investigation -patient has been chronically short of breath for several weeks now. Leukocytosis and left shift persists. Gram-positive cocci and white cells seen in sputum. This man clearly became acutely and critically ill - exact cause still eludes us. 04/03: Leukocytosis improved. Remains quite rigid when stimulated. Continues to move 4 limbs with purpose and follows commands with 4 limbs. Sputum demonstrates white blood cells and gram-negative rods. 04/04: Improved color and perfusion. Extubated yesterday afternoon but failed after about 45 minutes -developed somnolence then obtundation, appeared to be having difficulty taking a breath, concern for vocal cord dysfunction. On reintubation the cord edges were irregular but otherwise normal in appearance. I could not assess cord function as patient was not alert enough to cooperate with commands. We will definitely pursue possibilities of vocal cord dysfunction and or phrenic nerve paralysis once we get him extubated. Ideally, a sniff test under fluoroscopy would demonstrate any paradoxical diaphragm motion. 04/05: Afebrile. Neurologically appears intact. Daughter concerned about "appears distant" however on 40 mcg/kg/min of propofol and 250 mcg an hour fentanyl. No bowel movement since admission. Tube feeding only at 20 cc an hour. 04/06: Afebrile. Neurologically intact. Following commands.. Positive BM. Labile blood pressures yesterday. Replace potassium currently. 04/07: Patient writing notes today. Chest x-ray clear. Elevated left diaphragm , probably dysfunctional. Continued encephalopathy and generalized weakness chris very concerning. We will try Aminophyllin today to see if we can get some diaphragm and central nervous system stimulation. 04/08: Started on theophylline yesterday. Check level in a.m. Will attempt PSV trial today. Noted pulmonology requests possible T-bar with ABG when appropriate. Afebrile. 04/09: T-max 100. theophylline currently 3.7. Currently on CPAP trials. 02/18. 45%. Check ABG at 10 today. Desaturated yesterday currently back at 40%. 04/10: Resting in bed. Episode of nausea overnight. Negative workup. Evaluated positive BM 04/08. Patient more agitated overnight. Propofol discontinued due to hypotension. Currently on fentanyl drip. Theophylline. Creatinine currently 2.0 we will consult nephrology. Discontinue lisinopril. Receiving one half normal saline bolus currently. 04/11: T-max 101.1. Increasing O2 records.Increasing white blood cell count. For the cuff is overinflated to palpate the vocal cords. Leak by examination. Will change ET tube in place central line today. Empirically start antibiotics for aspiration. Not tolerating tube feeds and currently to low inner wall suction. Check KUB after ET tube exchange and central line placement. Restart metoclopramide. Positive BMs. 04/12: Yesterday, CT thorax revealed collapsed left lower lung. Status post bronchoscopy with reinflation of lung. Better saturations today. Continues with small and large bowel colonic distention. Right: 11 cm. GI is following. Might need decompression. Current orogastric tube to low intermittent wall suction. 04/13: Improved small and large bowel colonic distention. Down to 8 cm long family discussion. We will perform percutaneous tracheostomy and PEG tube as well. Request second neurological opinion. In better spirits today. 04/14: no changes. awakens and follows commands. plan for trach today. 2/2: s/p trach yesterday. awake and alert. calm. looks more comfortable than yesterday. did not tolerate PRVC today, but tolerates PSV with high support (24/ 5/35%). 2/3: complaining of new RUQ pain. ?+Fry's sign. labs wnl today. no other complaints. denies nausea or vomiting. still has diarrhea, but this is slowing down after holding bowel regimen. ROS otherwise negative. 04/17: Gallbladder ultrasound appears benign. No new complaints. 04/18: Remains on the vent. Tolerated approximately 7 hours of CPAP yesterday with high PS. Still complaining of diarrhea. Most likely induced by tube feeds. Potassium remains low at 2.7. Potassium replacement in addition to protocol given followed by KCl 20 meq twice daily scheduled. Probably GI loss 04/19: Clinically improving tolerating CPAP better today. Pressure support reduced to 12. Near normal strength normal reflexes normal sensation. Continue aggressive potassium and phosphorus replacement. 04/20: Irrigation Lehman placed and bladder for removal of large blood clots. Will delay bedside sniff test until urinary problems clear up. Anticipate indirect laryngoscopy to nasal approach soon. 04/21: Bleeding from Lehman catheter markedly reduced, just pink fluid now. Awake and alert this morning. We will attempt sniff test this morning under fluoroscopy. Update: Sniff test performed under fluoroscopy by Dr. Ritesh Damon shows no diaphragmatic function on either left or right side. The patient participated well with the testing clearly used his intercostal and shoulder muscles vigorously. This pattern is clearly more consistent with a neurological illness and pretty much eliminates the likelihood of traumatic etiology. 04/22: Dr. Ritesh Damon finds and recommends: No diaphragmatic motion on either side. Respiratory pattern suspicious for high neurological deficit above C5. Repeat MRI of the brain, cervical and without and with contrast while ventilated to exclude motion artifact would be very helpful. 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 04/23: Continuing on spontaneous breathing trials with elevated pressure support. Using exaggerated accessory muscles the patient is able to breathe through relative comfort. 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 We plan to get repeat MRI brain and c-spine tomorrow - w/wo contrast per Dr. Ritesh Damon request. 04/24: Continued progress on spontaneous breathing trials but still requiring increased pressure support. We will continue to rest him at night. Continually low phosphorus is not helping muscle stamina, continue to replace aggressively. Repeat MRI of head and C-spine performed today, will review comparison to old study. SUBJECTIVE: 04/25: cysto today to evacuate clots. no other changes. awake and alert. denies new complaints. wbc slightly uptrended. 04/26: no more hematuria. CBI stopped this AM. discussed with urologist: plan to keep lehman at least 1 week or until more mobile. risk of urinary retention is high and repeat catheterization has high likelihood of causing additional bleeding. discussion with neurology: plan to start IVIG for possible GBS vs. auto-immune or transverse myelitis type neuromuscular weakness. I had a long discussion with the patient and his today where we reviewed his current active medical problems as well as manager intermediate planning, prognosis, and ongoing work-up for each. We will start looking into referral centers who have therapies targeted to diaphragmatic paralysis. ROS negative. 04/27: ambulating farther than yesterday. has been accepted by [facility] for further workup and consideration of diaphragmatic pacemaker, but awaiting bed. no changes. 04/28: walked 7 room-lengths today towards his goal of walking around the unit. still awaiting bed at [facility]. otherwise no complaints. 04/29: doing well. plan to walk 9 room-lengths today. discussed with [facility] and still no bed available. denies complaints. +BM today. 04/30: no changes. awaiting a bed at [facility]. Objective Vital Signs / I&O: Vital Signs 04/29/18 10:00 04/29/18 10:16 04/29/18 10:29 Temperature Pulse Rate 96 H 68 75 Respiratory Rate Blood Pressure 170/83 H 102/59 L 147/74 H Pulse Oximetry 99 100 96 04/29/18 11:29 04/29/18 11:31 04/29/18 12:00 Temperature Pulse Rate 73 68 Respiratory Rate 15 Blood Pressure 161/85 H 139/80 Pulse Oximetry 97 94 L 95 04/29/18 12:19 04/29/18 13:00 04/29/18 14:00 Temperature Pulse Rate 94 H 74 69 Respiratory Rate 12 Blood Pressure 166/89 H 140/85 Pulse Oximetry 97 98 04/29/18 15:00 04/29/18 15:01 04/29/18 16:00 Temperature Pulse Rate 78 75 82 Respiratory Rate Blood Pressure 164/85 H 183/83 H Pulse Oximetry 97 97 100 04/29/18 16:58 04/29/18 17:00 04/29/18 18:00 Temperature Pulse Rate 83 82 78 Respiratory Rate 18 Blood Pressure 165/74 H 122/70 Pulse Oximetry 96 96 99 04/29/18 19:00 04/29/18 20:00 04/29/18 20:38 Temperature 36.9 C Pulse Rate 82 76 Respiratory Rate 12 14 Blood Pressure 143/67 H 123/63 Pulse Oximetry 97 100 100 04/29/18 20:40 04/29/18 21:00 04/29/18 21:01 Temperature Pulse Rate 74 81 82 Respiratory Rate 12 Blood Pressure 165/77 H Pulse Oximetry 100 100 04/29/18 22:00 04/29/18 23:00 04/29/18 23:10 Temperature Pulse Rate 79 77 Respiratory Rate 12 Blood Pressure 138/77 111/66 Pulse Oximetry 98 100 100 04/30/18 00:00 04/30/18 01:00 04/30/18 02:00 Temperature 36.9 C Pulse Rate 88 80 85 Respiratory Rate 12 Blood Pressure 143/69 H 123/65 149/73 H Pulse Oximetry 100 99 97 04/30/18 03:00 04/30/18 03:46 04/30/18 03:56 Temperature Pulse Rate 71 74 Respiratory Rate 12 12 Blood Pressure 116/75 Pulse Oximetry 100 97 04/30/18 04:00 04/30/18 04:01 04/30/18 05:00 Temperature 36.8 C Pulse Rate 72 73 82 Respiratory Rate 12 Blood Pressure 126/71 126/71 155/73 H Pulse Oximetry 97 97 99 04/30/18 06:00 04/30/18 07:00 04/30/18 08:00 Temperature 37.2 C Pulse Rate 75 76 76 Respiratory Rate Blood Pressure 152/79 H 138/73 133/76 Pulse Oximetry 100 100 100 04/30/18 08:48 04/30/18 09:00 04/30/18 09:19 Temperature Pulse Rate 82 72 73 Respiratory Rate 13 12 Blood Pressure 133/76 146/76 H Pulse Oximetry 100 100 Intake & Output 04/29/18 04/30/18 04/30/18 18:59 06:59 18:59 Intake Total 1220 / 1220 400 / 400 200 / 200 Output Total 1750 / 1750 650 / 650 Balance -530 / -530 -250 / -250 200 / 200 Weight 69.6 kg Intake: IV 500 / 500 400 / 400 200 / 200 Flexbumin 25% Inj 100 ML @ 60 100 / 100 100 / 100 100 / 100 mls/hr IV.SIG Q12H GIGI Rx#: [id number] Privigen Inj 30 GM In Bag/ 300 / 300 Syringe 1 EACH @ 37.5 mls/hr IV .SIG Q24H GIGI Rx#:[id number] Zosyn 4.5 GM Premix 4.5 gm In 100 / 100 300 / 300 100 / 100 100 ml @ 200 mls/hr IV.SIG Q6H GIGI Rx#:[id number] Tube Feeding 480 / 480 Tube Irrigant 240 / 240 Output: Urine 1750 / 1750 Urine Amount (Catheter) 650 / 650 3-way Urethral 650 / 650 Other: Date of Last Bowel Movement 04/29/18 04/29/18 04/29/18 # Incontinent Bowel Movements 2 Result Diagrams: 04/26/18 11:11 04/30/18 04:30 Objective Remarks: GENERAL: 67-year-old male. Awake alert SKIN: Warm and dry. HEAD: Atraumatic. Normocephalic. EYES: Pupils equal and round. No scleral icterus. No injection or drainage. ENT: No nasal bleeding or discharge. Mucous membranes pink and moist. Dobbhoff tube in place NECK: Trachea midline. No JVD. Trach site with some minor oozing. CARDIOVASCULAR: RRR sinus. RESPIRATORY: Lungs generally clear. Tolerating longer stretches of spontaneous breathing trials but requiring elevated pressure support. GASTROINTESTINAL: Abdomen slightly protuberant/non-tender, soft MUSCULOSKELETAL: Extremities without clubbing, cyanosis, trace to 1+ edema. No obvious deformities. NEUROLOGICAL: Follows commands and moves extremities to command. Limb strength 5 /5. No focal deficits. DTRs 3+ both knees. No clonus Assessment and Plan - Problem List (1) BUDDY (acute kidney injury) Code(s): N17.9 - Acute kidney failure, unspecified Status: Acute (2) BUDDY (acute kidney injury) Code(s): N17.9 - Acute kidney failure, unspecified Status: Acute (3) Acute hyponatremia Code(s): E87.1 - Hypo-osmolality and hyponatremia Status: Acute (4) Adult failure to thrive Code(s): R62.7 - Adult failure to thrive Status: Acute (5) Atelectasis Code(s): J98.11 - Atelectasis Status: Acute (6) Gross hematuria Code(s): R31.0 - Gross hematuria Status: Acute (7) Hypernatremia Code(s): E87.0 - Hyperosmolality and hypernatremia Status: Acute (8) Ileus Code(s): K56.7 - Ileus, unspecified Status: Acute (9) Leukocytosis Code(s): D72.829 - Elevated white blood cell count, unspecified Status: Acute (10) Respiratory failure Code(s): J96.90 - Respiratory failure, unspecified, unspecified whether with hypoxia or hypercapnia Status: Acute (11) Shortness of breath Code(s): R06.02 - Shortness of breath Status: Acute (12) Ventilator dependent Code(s): Z99.11 - Dependence on respirator [ventilator] status Status: Acute (13) Weakness generalized Code(s): R53.1 - Weakness Status: Acute (14) Neck pain, chronic Code(s): M54.2 - Cervicalgia; G89.29 - Other chronic pain Status: Chronic (15) Other cervical disc degeneration at C5-C6 level Code(s): M50.322 - Other cervical disc degeneration at C5-C6 level Status: Chronic (16) Protrusion of cervical intervertebral disc Code(s): M50.20 - Other cervical disc displacement, unspecified cervical region Status: Chronic - Assessment and Plan Plan: Neuro/Psych: History of anterior C5/6 microdiscectomy with fusion Not requiring any continuous sedation at this time Goal of RASS 0 Evaluated by neurosurgery/Dr. Viera. No intervention planned at this time CT brain/MRI C-spine negative EEG revealed no epileptic activity Neurology following. Recommend myasthenia gravis lab. Negative to date. No evidence of GBS Left diaphragm remains elevated, suspect not functioning well. Requested second opinion for neurological status See neurology note. Overall strength clinically improving Need aggressive potassium and phosphorus replacement Wound remains well healed and clean Findings of bilateral diaphragm paralysis largely rules out operative injury. continue IVIG per neurology CV: Systolic heart failure unknown if acute or chronic Essential hypertension Hyperlipidemia Ejection fraction 45% on admission. Appreciate cardiac evaluation by Dr. Escobedo. No plans at this time Holding amlodipine 10 mg daily, and metoprolol tartrate 12.5 mg twice daily for hypertension Holding clonidine 0.1 twice daily and lisinopril 5 mg daily in light of hypotension/lisinopril for acute kidney injury Continue pravastatin 40 mg daily for dyslipidemia. Continue aspirin 81 mg by mouth daily. Still holding antihypertensives. Holding aspirin while bladder bleeding continues Due to increasing peripheral edema we will initiate diuretic therapy. Resp: Acute hypercapnic respiratory failure- now chronic Klebsiella oxytoca pneumonia PRVC ventilation. Ventilator bundle. Head of bed at 30 degrees Albuterol/ipratropium aerosols every 4 hours with albuterol aerosols every 2 hours as needed dyspnea Will need sniff test to assess diaphragmatic function once off vent We will consult ENT to assess vocal cords when appropriate Appreciate pulmonary input. Spontaneous breathing trial daily. 02/08 discontinued theophylline 400 mg daily acute delirium. Noted level. 04/09 3.7 Status post bronchoscopy 04/11. Thick white purulent secretions left lower lobe suction to clear. General surgery s/p percutaneous tracheostomy 04/14: Dr. Conde daily weaning of CPAP/pressure support. 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 Continue spontaneous breathing trials daily, rest on rate at night. -needs to be OOB and ambulating. made a plan today with RT and PT to walk daily with a 2-week goal of ambulating around the unit. -Also started possible transfer process to find a referral facility who evaluates and manages diaphragmatic paralysis, with possible need for diaphragm pacemaker: accepted by [facility], awaiting bed. GI: Gastroesophageal reflux disease Transaminitis Hypoalbuminemia Ileus new RUQ pain Acute protein calorie malnutrition- severe Tube feeding at 60 cc an hour days. At home on pantoprazole 40 mg daily. Currently on lansoprazole 30 mg daily holding bowel regimen for diarrhea add fiber to diet. RUQ ultrasound -benign Follow liver function tests, lipase No evidence of liver injury. Follow prealbumin weekly. failed speech swallow eval 04/26. continue NPO with tube feeds. : hematuria- resolved Irrigation Lehman in place because of acute bladder bleeding with clots. Urine largely clear with mild billie. No clots. keep lehman x at least 1 week (through 05/03) and until patient ambulating with low risk of retention (per Dr. Isaac with urology). Endo: Hypothyroidism Hypokalemia Hypophosphatemia TSH 1.28. Continue levothyroxine 125 mg by mouth daily Sliding scale insulin if indicated to maintain euglycemia Aggressive electrolyte replacement Continue scheduled thyroxine Follow TSH Renal: Kidney injury - acute, resolved. Avoid all nephrotoxic medications Creatinine currently 1.1 Neurology consultation for evaluation this is contrast-induced nephropathy from scans 03/31. Avoid nephrotoxic medication. Lisinopril discontinued. Accurate I's and O's difficult to obtain with bladder irrigation Heme: Normocytic anemia Leukocytosis Monitor CBC daily. Follow trends per No indication for transfusion of blood proximal to this time. ID: Klebsiella oxytoca pneumonia sputum 04/01 Completed with ceftriaxone per infectious disease. Started on piperacillin/tazobactam 04/11 due to aspiration, anticipated stop date 04/19 Lumbar puncture negative. HSV negative No growth to date on other cultures aside from sputum Lung ceron remain clear No evidence of ongoing infection. FEN: Hypernatremia-resolved Hypopotassemia Hypokalemia Free water 200 cc every 6 hours. Replace electrolytes as clinically indicated per ICU electrolyte protocol. Recheck electrolytes in a.m. Increase scheduled potassium replacement 50 MEQ twice daily MSK: PT evaluate and treat up to chair daily OT evaluate and treat Access -Utilize peripheral IV. Prophylaxis -GI -lansoprazole -DVT -SCD/enoxaparin Overall impression: Remains weak and de conditioned but improving strength on spontaneous breathing trials.. We continue to work on nutrition and ventilator weaning. OOB and working with PT daily. We are presently looking at disease processes which could lead to bilateral diaphragmatic paresis.
[2018-04-30] MEDS: Sodium Chloride 0.9% Irr Bag 3,000 ML, Aminocaproic Acid Inj 3,000 MG IRRIGATION SCH ×2 (10:27)
[2018-04-30] MEDS: Magnesium Oxide 400 MG Tablet PO SCH ×2 (10:27→22:41)
--- NOTE | 2018-04-30 10:29 | P.PNPL ---
Subjective Interval history: Patient is on ventilator via trach. Awake and alert. Afebrile. Physical Exam Vital signs: Vital Signs 04/29/18 10:29 04/29/18 11:29 04/29/18 11:31 Temperature Pulse Rate 75 73 Respiratory Rate 15 Blood Pressure 147/74 H 161/85 H Pulse Oximetry 96 97 94 L 04/29/18 12:00 04/29/18 12:19 04/29/18 13:00 Temperature Pulse Rate 68 94 H 74 Respiratory Rate 12 Blood Pressure 139/80 166/89 H Pulse Oximetry 95 97 04/29/18 14:00 04/29/18 15:00 04/29/18 15:01 Temperature Pulse Rate 69 78 75 Respiratory Rate Blood Pressure 140/85 164/85 H Pulse Oximetry 98 97 97 04/29/18 16:00 04/29/18 16:58 04/29/18 17:00 Temperature Pulse Rate 82 83 82 Respiratory Rate 18 Blood Pressure 183/83 H 165/74 H Pulse Oximetry 100 96 96 04/29/18 18:00 04/29/18 19:00 04/29/18 20:00 Temperature 98.4 F Pulse Rate 78 82 76 Respiratory Rate 12 Blood Pressure 122/70 143/67 H 123/63 Pulse Oximetry 99 97 100 04/29/18 20:38 04/29/18 20:40 04/29/18 21:00 Temperature Pulse Rate 74 81 Respiratory Rate 14 12 Blood Pressure Pulse Oximetry 100 100 04/29/18 21:01 04/29/18 22:00 04/29/18 23:00 Temperature Pulse Rate 82 79 77 Respiratory Rate Blood Pressure 165/77 H 138/77 111/66 Pulse Oximetry 100 98 100 04/29/18 23:10 04/30/18 00:00 04/30/18 01:00 Temperature 98.4 F Pulse Rate 88 80 Respiratory Rate 12 12 Blood Pressure 143/69 H 123/65 Pulse Oximetry 100 100 99 04/30/18 02:00 04/30/18 03:00 04/30/18 03:46 Temperature Pulse Rate 85 71 74 Respiratory Rate 12 Blood Pressure 149/73 H 116/75 Pulse Oximetry 97 100 04/30/18 03:56 04/30/18 04:00 04/30/18 04:01 Temperature 98.2 F Pulse Rate 72 73 Respiratory Rate 12 12 Blood Pressure 126/71 126/71 Pulse Oximetry 97 97 97 04/30/18 05:00 04/30/18 06:00 04/30/18 07:00 Temperature Pulse Rate 82 75 76 Respiratory Rate Blood Pressure 155/73 H 152/79 H 138/73 Pulse Oximetry 99 100 100 04/30/18 08:00 04/30/18 08:48 04/30/18 09:00 Temperature 98.9 F Pulse Rate 76 82 72 Respiratory Rate 13 Blood Pressure 133/76 133/76 146/76 H Pulse Oximetry 100 100 04/30/18 09:19 Temperature Pulse Rate 73 Respiratory Rate 12 Blood Pressure Pulse Oximetry 100 Intake & Output 04/29/18 04/30/18 04/30/18 18:59 06:59 18:59 Intake Total 1220 / 1220 400 / 400 200 / 200 Output Total 1750 / 1750 650 / 650 Balance -530 / -530 -250 / -250 200 / 200 Weight 69.6 kg Intake: IV 500 / 500 400 / 400 200 / 200 Flexbumin 25% Inj 100 ML @ 60 100 / 100 100 / 100 100 / 100 mls/hr IV.SIG Q12H GIGI Rx#: [id number] Privigen Inj 30 GM In Bag/ 300 / 300 Syringe 1 EACH @ 37.5 mls/hr IV .SIG Q24H GIGI Rx#:[id number] Zosyn 4.5 GM Premix 4.5 gm In 100 / 100 300 / 300 100 / 100 100 ml @ 200 mls/hr IV.SIG Q6H GIGI Rx#:[id number] Tube Feeding 480 / 480 Tube Irrigant 240 / 240 Output: Urine 1750 / 1750 Urine Amount (Catheter) 650 / 650 3-way Urethral 650 / 650 Other: Date of Last Bowel Movement 04/29/18 04/29/18 04/29/18 # Incontinent Bowel Movements 2 - Constitutional no acute distress - Routine HEENT Exam Head: Present: normocephalic, atraumatic Eye: Present: EOMI, PERRL, normal accommodation, conjunctivae pink - Routine Neck Exam Present: supple, full ROM, trachea midline - Routine Respiratory Exam Present: patient mechanically ventilated, CTA bilaterally - Routine Cardiovascular Exam Present: RRR, S1, S2 - Routine Abdominal Exam Present: soft, normoactive bowel sounds - Routine Skin Exam Present: intact, dry - Routine Neurological Exam Present: alert, oriented X3, CN II-XII intact - Urinary Catheter Management Indwelling Urethral Catheter Cath placed during this visit: yes, but has since been removed by the nurse Reason for continuing: Continue criteria not met Insertion date: 04/10/18 Insertion time: 01:45 Removal date: 04/15/18 Removal time: 17:05 Condom Cath placed during this visit: no 3-way Urethral Cath placed during this visit: yes Reason for continuing: Gross Hematuria Insertion date: 04/25/18 Insertion time: 11:20 Assessment and Plan - Assessment (1) BUDDY (acute kidney injury) Code(s): N17.9 - Acute kidney failure, unspecified Status: Acute (2) BUDDY (acute kidney injury) Code(s): N17.9 - Acute kidney failure, unspecified Status: Acute (3) Acute hyponatremia Code(s): E87.1 - Hypo-osmolality and hyponatremia Status: Acute (4) Adult failure to thrive Code(s): R62.7 - Adult failure to thrive Status: Acute (5) Atelectasis Code(s): J98.11 - Atelectasis Status: Acute (6) Gross hematuria Code(s): R31.0 - Gross hematuria Status: Acute (7) Hypernatremia Code(s): E87.0 - Hyperosmolality and hypernatremia Status: Acute (8) Ileus Code(s): K56.7 - Ileus, unspecified Status: Acute (9) Leukocytosis Code(s): D72.829 - Elevated white blood cell count, unspecified Status: Acute (10) Respiratory failure Code(s): J96.90 - Respiratory failure, unspecified, unspecified whether with hypoxia or hypercapnia Status: Acute (11) Shortness of breath Code(s): R06.02 - Shortness of breath Status: Acute (12) Ventilator dependent Code(s): Z99.11 - Dependence on respirator [ventilator] status Status: Acute (13) Weakness generalized Code(s): R53.1 - Weakness Status: Acute (14) Neck pain, chronic Code(s): M54.2 - Cervicalgia; G89.29 - Other chronic pain Status: Chronic (15) Other cervical disc degeneration at C5-C6 level Code(s): M50.322 - Other cervical disc degeneration at C5-C6 level Status: Chronic (16) Protrusion of cervical intervertebral disc Code(s): M50.20 - Other cervical disc displacement, unspecified cervical region Status: Chronic - Plan 1)Chronic resp failure s/p trach 2)LLL Pneumonia 3)cervical disc degeneration at C5-C6 level 4)History of anterior C5/6 microdiscectomy with fusion 5)HTN 6)CHF 7)Anemia 8)Leukocytosis 9)Diaphragmatic paralysis - Plan Continue with vent support keep sats >92% Bronchodilators, ICU vent bundle SBT daily as leia. Pulm toilet, trach care Check CXR in am Abx per ID- On Zosyn, sputum / Psudo fluorescence Nutrition support- on tube feeds. GI/DVT prophylaxis
--- NOTE | 2018-04-30 16:31 | P.PNID ---
Subjective Remarks: pt is afebrile On vent growing PSAE pseudoflorescent/putida awaitin transfer to [facility] Antibiotics: zosyn, high dose Allergies/Adverse Reactions: Allergies Sulfa (Sulfonamide Antibiotics) Allergy (Severe, Verified 02/15/18 05:02) Nausea also flu like symptoms Objective Vital Signs 04/29/18 16:58 04/29/18 17:00 04/29/18 18:00 Temperature Pulse Rate 83 82 78 Respiratory Rate 18 Blood Pressure 165/74 H 122/70 Pulse Oximetry 96 96 99 04/29/18 19:00 04/29/18 20:00 04/29/18 20:38 Temperature 98.4 F Pulse Rate 82 76 Respiratory Rate 12 14 Blood Pressure 143/67 H 123/63 Pulse Oximetry 97 100 100 04/29/18 20:40 04/29/18 21:00 04/29/18 21:01 Temperature Pulse Rate 74 81 82 Respiratory Rate 12 Blood Pressure 165/77 H Pulse Oximetry 100 100 04/29/18 22:00 04/29/18 23:00 04/29/18 23:10 Temperature Pulse Rate 79 77 Respiratory Rate 12 Blood Pressure 138/77 111/66 Pulse Oximetry 98 100 100 04/30/18 00:00 04/30/18 01:00 04/30/18 02:00 Temperature 98.4 F Pulse Rate 88 80 85 Respiratory Rate 12 Blood Pressure 143/69 H 123/65 149/73 H Pulse Oximetry 100 99 97 04/30/18 03:00 04/30/18 03:46 04/30/18 03:56 Temperature Pulse Rate 71 74 Respiratory Rate 12 12 Blood Pressure 116/75 Pulse Oximetry 100 97 04/30/18 04:00 04/30/18 04:01 04/30/18 05:00 Temperature 98.2 F Pulse Rate 72 73 82 Respiratory Rate 12 Blood Pressure 126/71 126/71 155/73 H Pulse Oximetry 97 97 99 04/30/18 06:00 04/30/18 07:00 04/30/18 08:00 Temperature 98.9 F Pulse Rate 75 76 76 Respiratory Rate Blood Pressure 152/79 H 138/73 133/76 Pulse Oximetry 100 100 100 04/30/18 08:48 04/30/18 09:00 04/30/18 09:19 Temperature Pulse Rate 82 72 73 Respiratory Rate 13 12 Blood Pressure 133/76 146/76 H Pulse Oximetry 100 100 04/30/18 10:00 04/30/18 10:01 04/30/18 10:30 Temperature Pulse Rate 74 74 93 H Respiratory Rate Blood Pressure 132/75 171/86 H Pulse Oximetry 100 100 98 04/30/18 10:31 04/30/18 10:45 04/30/18 11:26 Temperature Pulse Rate 93 H 102 H Respiratory Rate Blood Pressure 166/85 H Pulse Oximetry 98 96 04/30/18 11:40 04/30/18 11:42 04/30/18 12:00 Temperature 99.0 F Pulse Rate 87 79 Respiratory Rate 10 L Blood Pressure 148/76 H 150/73 H Pulse Oximetry 100 100 100 04/30/18 13:00 04/30/18 14:00 Temperature Pulse Rate 82 85 Respiratory Rate Blood Pressure 125/82 153/72 H Pulse Oximetry 99 100 Intake & Output 04/29/18 04/30/18 04/30/18 18:59 06:59 18:59 Intake Total 1220 / 1220 400 / 400 300 / 300 Output Total 1750 / 1750 650 / 650 Balance -530 / -530 -250 / -250 300 / 300 Weight 69.6 kg Intake: IV 500 / 500 400 / 400 300 / 300 Flexbumin 25% Inj 100 ML @ 60 100 / 100 100 / 100 100 / 100 mls/hr IV.SIG Q12H GIGI Rx#: [id number] Privigen Inj 30 GM In Bag/ 300 / 300 Syringe 1 EACH @ 37.5 mls/hr IV .SIG Q24H GIGI Rx#:[id number] Zosyn 4.5 GM Premix 4.5 gm In 100 / 100 300 / 300 200 / 200 100 ml @ 200 mls/hr IV.SIG Q6H GIGI Rx#:[id number] Tube Feeding 480 / 480 Tube Irrigant 240 / 240 Output: Urine 1750 / 1750 Urine Amount (Catheter) 650 / 650 3-way Urethral 650 / 650 Other: Date of Last Bowel Movement 04/29/18 04/29/18 04/30/18 # Incontinent Bowel Movements 2 04/25/18 00:14 Sputum - Endotracheal Gram Stain - Final 04/25/18 00:14 Sputum - Endotracheal Sputum Culture - Final Pseudo fluorescens/putida Lab - Chemistry Results 04/30/18 04:30 Sodium 147 H Potassium 3.8 Chloride 113 H Carbon Dioxide 27.8 Anion Gap 6 BUN 37 H Creatinine 0.88 Estimated GFR 86 L Random Glucose 100 Calcium 9.3 Phosphorus 2.7 Magnesium 2.8 H Imaging: ITS Impressions Head CT 03/31/18 12:16 CONCLUSION: 1. Negative CT Head non contrast. . Chest CTA 03/31/18 14:39 CONCLUSION: 1. Bibasilar atelectatic changes, left greater than right. No confluent infiltrate. 2. No pulmonary embolus. 3. Atherosclerotic calcification of the coronary arteries. Abdomen/Bladder Ultrasound 04/10/18 08:05 CONCLUSION: 1. Probable complex cyst coming off the right lower pole kidney appears smaller since 2017 CT examination of the abdomen. Abdomen X-Ray 04/15/18 05:07 CONCLUSION: Dobbhoff tube tip now seen in the stomach. Gallbladder Ultrasound 04/16/18 00:00 CONCLUSION: 1. Minimal prominence of the gallbladder wall. No pericholecystic fluid is seen no stones are evident. 2. Increased echogenicity of the liver suggesting fatty infiltration. Abdomen/Pelvis CT 04/19/18 10:15 CONCLUSION: 1. Tiny 1 mm calculus now noted in the posterior left side of the bladder which could represent a small bladder calculi or distal ureteral calculus. 2. The left kidney appears unremarkable and there is no hydronephrosis. The ureters appear within normal limits. 3. Single tiny nonobstructing right renal calculus without change. The previously noted complex cystic lesion in the lower pole is faintly visualized. 4. Nonspecific bowel gas pattern which may represent an ileus. Chest Fluoroscopy 04/21/18 00:00 CONCLUSION: No diaphragmatic motion on either side. Respiratory pattern suspicious for high neurological deficit above C5. Repeat MRI of the brain, cervical and without and with contrast while ventilated to exclude motion artifact would be very helpful. Cervical Spine MRI 04/24/18 00:00 CONCLUSION: 1. Subtle increased signal in the cord beginning at the C4 level extending distally. There is no abnormal contrast enhancement. 2. This is seen best on the sagittal IR image set. Head MRI 04/24/18 00:00 CONCLUSION: 1. Negative MRI of the brain without and with contrast Chest CT 04/26/18 00:00 CONCLUSION: Slight improvement in aeration. Chest X-Ray 04/28/18 00:00 CONCLUSION: No significant change Physical Exam: GENERAL: NAD awake, SKIN: Warm and dry. NECK: Trach in place, + some secretons. No JVD. CARDIOVASCULAR: Regular , rate, rhtyms RESPIRATORY: No accessory muscle use. Ronchi b/ l to auscultation Breath sounds equal, decreased R base GASTROINTESTINAL: Abdomen soft, non-tender, nondistended. Hepatic and splenic margins not palpable. : lehman in place, urine is lighly pink and clear MUSCULOSKELETAL: Extremities without clubbing, cyanosis, NEUROLOGICAL: awake, alert PSYCHIATRIC: calm Assessment and Plan - Plan C spine fusion Hypercapnia difficulty breathing developped after surgery Kleb oxytoca PNA signs of PNA resolved cliniclaly and radiologically Acute VDRF, improving fever, low grade: resolved No e/o POURER infx New leukocytosis - resolved ARF - resolved Aspiration PNA today's CXR Minimal bibasilar densities, sp abx : completed 2/6 Sepsis, improving abx associated diarrhea C.diff negative 2/2 Gu bleeding B/l phernic nerve paralysis: post viral GBS will not present with islated diaphragm weakness but also will see other muscel groups involvemtn low risk for Lyme dz exposure Persistent LLL PNA, restarted on abx - Pseudomonas pseuflorescence cont Zosyn cont abx x 2 weeks total (include obdulia time) agree wit plan for b/l diaphragmatic pacer breezy Caputo
[2018-04-30] MEDS: hydrALAZINE 25 MG Tablet PO SCH (21:26)
[2018-05-01] MEDS: Piperacil/Tazo 4.5 GM Premix 4.5 GM/100 ML BAG IV.SIG SCH ×2 (01:25→10:02)
[2018-05-01] MEDS: Artificial Tears Opth Drops 15 ML Bottle EACH EYE SCH ×2 (01:25→10:01)
[2018-05-01] MEDS: Oral Hygiene Kit OROPHARYNG SCH (03:15)
--- NOTE | 2018-05-01 05:19 | XR ---
EXAM DATE: 05/01/2018 5:02 AM EST AGE/SEX: 67 years / Male INDICATIONS: Respiratory distress. CLINICAL DATA: This is the patient's subsequent encounter. Patient reports that signs and symptoms h ave been present for 3 weeks and indicates a pain score of Nonresponsive. MEDICAL/SURGICAL HISTORY: Gastroesophageal reflux disease. Hypercholesterolemia. Inguinal isabel ia repair. COMPARISON: C, CHEST 1V SINGLE AP, 04/28/2018. . FINDINGS: A single AP view of the chest demonstrates the lungs to be symmetrically aerated with a persistent le ft basilar consolidation/effusion. Right lung is clear. Tracheostomy tube is stable in position. A fe eding tube traverses the GE junction and extends off the inferior aspect of the image. Heart size is normal. Osseous structures are intact. CONCLUSION: 1. Stable examination with left basilar consolidation/effusion. 2. Stable position of life-support tubes Electronically signed by: Serafin Maurer MD Board Certified Radiologist 05/01/2018 5:18 AM EST
[2018-05-01] MEDS: Albumin Human 25% Inj 100 ML IV.SIG SCH (05:46)
[2018-05-01] MEDS: hydrALAZINE 25 MG Tablet PO SCH (05:46)
[2018-05-01] MEDS: Levothyroxine 125 MCG Tablet PO SCH (05:46)
[2018-05-01 08:31] LABS: Baso % (Auto) 0.5 % (0.0-2.0); Eos % (Auto) 0.5 % (0.0-4.0); Hematocrit 21.9 % (39.0-51.0); Hemoglobin 7.7 gm/dL (13.0-17.0); Lymph # (Auto) 0.7 th/mm3 (1.0-4.8); Lymph % (Auto) 9.4 % (9.0-44.0); Mean Corpuscular HGB Conc 34.9 % (32.0-36.0); Mean Corpuscular Hemoglobin 32.4 pg (27.0-34.0); Mean Corpuscular Volume 92.7 fL (80.0-100.0); Mean Platelet Volume 8.6 fL (7.0-11.0); Mono # (Auto) 0.6 th/mm3 (0.0-0.9); Mono % (Auto) 8.2 % (0.0-8.0); Neut # (Auto) 5.7 th/mm3 (1.8-7.7); Neut % (Auto) 81.4 % (16.0-70.0); Platelet Count 225 th/mm3 (150-450); Red Blood Count 2.36 mil/mm3 (4.50-5.90); Red Cell Distribution Width 16.5 % (11.6-17.2); White Blood Count 7.1 th/mm3 (4.0-11.0)
--- NOTE | 2018-05-01 09:43 | P.PNNEU ---
Subjective Active Medications: Active Medications Acetaminophen (Tylenol) 650 mg PO Q6H PRN PRN Reason: Temp > 100.4 Last Admin: 04/16/18 21:02 Dose: 650 mg Albuterol (Duoneb Neb (Je)) 1 ampul NEB Q6HR NEB [facility] Last Admin: 05/01/18 07:37 Dose: 1 ampul Albuterol (Albuterol Neb (Prn)) 2.5 mg NEB Q2HR NEB PRN PRN Reason: DYSPNEA Artificial Tears (Tears Naturale Opth Drops) 1 drop EACH EYE Q8H [facility] Last Admin: 05/01/18 01:25 Dose: 1 drop Aspirin (Aspirin Chew) 81 mg PO DAILY [facility] Last Admin: 04/19/18 08:01 Dose: 81 mg Belladonna Alkaloids/Opium (B & O Supp) 60 mg RECTAL Q6HR PRN PRN Reason: bladder spasms Chlorhexidine Gluconate (Peridex 0.12% Oral Kit) 15 ml OROPHARYNG BID@0800, 2000 [facility] Last Admin: 04/30/18 20:15 Dose: 15 ml Sodium Chloride 3,000 ml/ (Aminocaproic Acid 3,000 mg) 0 ml IRRIGATION Q24H [facility] Last Admin: 04/30/18 10:27 Dose: Not Given Diphenhydramine HCl (Benadryl Inj) 50 mg IV.PUSH PRN PRN PRN Reason: ALLERGIC REACTION Stop: 05/02/18 08:23 Enoxaparin Sodium (Lovenox Inj) 40 mg SQ DAILY [facility] Last Admin: 04/19/18 08:01 Dose: 40 mg Epinephrine HCl (Epinephrine (1:1000) Inj) 0.3 mg OTHER Q10M PRN PRN Reason: Anaphylactic Reaction Stop: 05/02/18 08:23 Furosemide (Lasix Inj) 40 mg IV.PUSH DAILY [facility] Last Admin: 04/30/18 08:47 Dose: 40 mg Hydralazine HCl (Apresoline) 50 mg PO Q8HR [facility] Last Admin: 05/01/18 05:46 Dose: 50 mg Piperacillin/Tazobactam/Dextrose (Zosyn 4.5 Gm Premix) 4.5 gm in 100 mls @ 200 mls/hr IV.SIG Q6H [facility] Last Infusion: 05/01/18 06:12 Dose: Infused Magnesium Sulfate 4 gm/ Sodium (Chloride) 100 mls @ 50 mls/hr IV.SIG UNSCH PRN PRN Reason: For Magnesium 0.9 - 1.1 mg/dL Potassium Chloride (Kcl 40 Meq Premix Inj) 40 meq in 100 mls @ 25 mls/hr IV.SIG Q2H PRN PRN Reason: For Potassium 2.8 - 3.2 mEq/L Last Infusion: 04/15/18 06:37 Dose: Infused Potassium Chloride (Kcl 20 Meq Premix Inj) 20 meq in 100 mls @ 50 mls/hr IV.SIG Q2H PRN PRN Reason: For Potassium 3.3 - 3.5 mEq/L Last Infusion: 04/24/18 10:29 Dose: Infused Potassium Chloride (Kcl 40 Meq Premix Inj) 40 meq in 100 mls @ 25 mls/hr IV.SIG UNSCH PRN PRN Reason: For Potassium 3.3 - 3.5 mEq/L Last Infusion: 04/12/18 10:35 Dose: Infused Potassium Chloride (Kcl 20 Meq Premix Inj) 20 meq in 100 mls @ 50 mls/hr IV.SIG Q2H PRN PRN Reason: For Potassium 2.8 - 3.2 mEq/L Last Infusion: 04/24/18 10:29 Dose: Infused Potassium Phosphate 30 mmol/ (Sodium Chloride) 260 mls @ 42 mls/hr IV.SIG UNSCH PRN PRN Reason: SEE LABEL COMMENTS Last Infusion: 04/19/18 15:35 Dose: Infused Magnesium Sulfate 2 gm/ Sodium (Chloride) 100 mls @ 50 mls/hr IV.SIG UNSCH PRN PRN Reason: For Magnesium 1.2 - 1.6 mg/dL Sodium Phosphate 30 mmol/ (Sodium Chloride) 260 mls @ 42 mls/hr IV.SIG UNSCH PRN PRN Reason: For Phosphorus < 2.5 mg/dL Albumin Human (Flexbumin 25% Inj) 100 mls @ 60 mls/hr IV.SIG Q12H [facility] Last Admin: 05/01/18 05:46 Dose: 60 mls/hr Labetalol HCl (Trandate Inj) 20 mg IV.PUSH Q1H PRN PRN Reason: SBP > 160 Last Admin: 04/29/18 10:15 Dose: 20 mg Lansoprazole (Prevacid Solutab) 30 mg NG/OG DAILY [facility] Last Admin: 04/30/18 08:46 Dose: 30 mg Levothyroxine Sodium (Synthroid) 125 mcg PO DAILY@0600 [facility] Last Admin: 05/01/18 05:46 Dose: 125 mcg Magnesium Oxide (Mag-Ox) 800 mg PO UNSCH PRN PRN Reason: For Magnesium 1.2 - 1.6 mg/dL Magnesium Oxide (Mag-Ox) 400 mg PO BID@1100,2300 [facility] Last Admin: 04/30/18 22:41 Dose: Not Given Miscellaneous (Pill Splitter) 1 each OTHER UNSCH PRN PRN Reason: SEE LABEL COMMENTS Miscellaneous Medication () 1 each OROPHARYNG 0000,0400,1200,1600 [facility] Last Admin: 05/01/18 03:15 Dose: 1 each Ondansetron HCl (Zofran Inj) 4 mg IV.PUSH Q4H PRN PRN Reason: NAUSEA OR VOMITING Oxycodone HCl (Roxicodone Intensol Liq) 5 mg PO Q4H PRN PRN Reason: pain 4-6 Last Admin: 04/16/18 13:36 Dose: 5 mg Oxymetazoline HCl (Afrin 0.05% Nasal [place]) 2 spray NASAL Q12H PRN PRN Reason: Bronchoscopy Polyethylene Glycol (Miralax) 17 gm PO BID [facility] Last Admin: 04/15/18 21:00 Dose: Not Given Potassium Chloride (Kcl Liq) 40 meq PO UNSCH PRN PRN Reason: Potassium level 3.3-3.5 mEq/L Last Admin: 04/17/18 17:38 Dose: 40 meq Potassium Chloride (Kcl Liq) 40 meq PO UNSCH PRN PRN Reason: Potassium level 3.3-3.5 mEq/L Last Admin: 04/16/18 14:59 Dose: 40 meq Potassium Chloride (Kcl Liq) 50 meq PO BID [facility] Last Admin: 04/30/18 20:15 Dose: 50 meq Potassium Phosphate (K-Phos Original) 2,000 mg PO Q4H PRN PRN Reason: Phosphorus Less Than 2.5 mg/dL Last Admin: 04/17/18 10:48 Dose: 2,000 mg Potassium Phosphate (K-Phos Original) 2,000 mg PO UNSCH PRN PRN Reason: SEE LABEL COMMENTS Pravastatin Sodium (Pravachol) 40 mg PO [facility] Last Admin: 04/30/18 20:16 Dose: 40 mg Psyllium Hydrophilic Mucilloid (Metamucil Fiber Sf Pkt) 1 pack NG/OG DAILY [facility] Last Admin: 04/30/18 08:48 Dose: 1 pack Sertraline HCl (Zoloft) 100 mg PO DAILY [facility] Last Admin: 04/30/18 08:48 Dose: 100 mg Sodium Chloride (Ns Flush) 2 ml IV.FLUSH BID [facility] Last Admin: 04/30/18 20:16 Dose: 2 ml Sodium Chloride (Ns Flush) 2 ml IV.FLUSH PRN PRN PRN Reason: FLUSH AFTER USING IV ACCESS Last Admin: 04/29/18 09:25 Dose: 2 ml Sodium Chloride (Ns Flush) 0 ml IV.FLUSH DAILY [facility] Last Admin: 04/30/18 08:48 Dose: Not Given Allergies/Adverse Reactions: Allergies Allergy/AdvReac Type Severity Reaction Status Date / Time Sulfa (Sulfonamide Allergy Severe Nausea Verified 02/15/18 05:02 Antibiotics) Physical Exam Vital signs: Vital Signs 04/30/18 10:00 04/30/18 10:01 04/30/18 10:30 Temperature Pulse Rate 74 74 93 H Respiratory Rate Blood Pressure 132/75 171/86 H Pulse Oximetry 100 100 98 04/30/18 10:31 04/30/18 10:45 04/30/18 11:26 Temperature Pulse Rate 93 H 102 H Respiratory Rate Blood Pressure 166/85 H Pulse Oximetry 98 96 04/30/18 11:40 04/30/18 11:42 04/30/18 12:00 Temperature 99.0 F Pulse Rate 87 79 Respiratory Rate 10 L Blood Pressure 148/76 H 150/73 H Pulse Oximetry 100 100 100 04/30/18 13:00 04/30/18 14:00 04/30/18 15:00 Temperature Pulse Rate 82 85 79 Respiratory Rate Blood Pressure 125/82 153/72 H 125/67 Pulse Oximetry 99 100 100 04/30/18 16:00 04/30/18 17:00 04/30/18 17:01 Temperature 98.4 F Pulse Rate 97 H 78 79 Respiratory Rate Blood Pressure 175/83 H 133/74 Pulse Oximetry 97 100 100 04/30/18 17:20 04/30/18 17:21 04/30/18 18:00 Temperature Pulse Rate 78 90 Respiratory Rate 10 L 10 L Blood Pressure Pulse Oximetry 100 98 04/30/18 18:01 04/30/18 19:00 04/30/18 20:00 Temperature 98.2 F Pulse Rate 90 72 78 Respiratory Rate 12 12 Blood Pressure 153/77 H 118/68 145/69 H Pulse Oximetry 100 100 100 04/30/18 21:00 04/30/18 21:06 04/30/18 21:08 Temperature Pulse Rate 76 74 Respiratory Rate 12 12 12 Blood Pressure 128/72 Pulse Oximetry 100 100 04/30/18 22:00 04/30/18 23:00 04/30/18 23:01 Temperature Pulse Rate 77 91 H 91 H Respiratory Rate 12 12 Blood Pressure 133/72 160/73 H Pulse Oximetry 100 100 100 05/01/18 00:00 05/01/18 00:16 05/01/18 01:00 Temperature 98.2 F Pulse Rate 87 77 Respiratory Rate 12 12 12 Blood Pressure 167/78 H 146/75 H Pulse Oximetry 98 97 99 05/01/18 02:00 05/01/18 03:00 05/01/18 03:41 Temperature Pulse Rate 76 86 72 Respiratory Rate 12 12 12 Blood Pressure 140/70 160/76 H Pulse Oximetry 99 100 05/01/18 04:00 05/01/18 05:00 05/01/18 05:58 Temperature 98.2 F Pulse Rate 72 78 87 Respiratory Rate 12 12 Blood Pressure 127/69 185/74 H 152/72 H Pulse Oximetry 100 100 100 05/01/18 06:00 05/01/18 06:01 05/01/18 07:00 Temperature Pulse Rate 88 84 85 Respiratory Rate 12 Blood Pressure 146/71 H 147/73 H Pulse Oximetry 100 100 100 05/01/18 07:32 05/01/18 07:33 05/01/18 08:00 Temperature Pulse Rate 75 90 Respiratory Rate 12 12 Blood Pressure Pulse Oximetry 100 96 05/01/18 08:01 05/01/18 09:00 05/01/18 09:01 Temperature Pulse Rate 92 H 87 90 Respiratory Rate Blood Pressure 168/79 H 150/77 H Pulse Oximetry 96 96 96 Intake & Output 04/30/18 05/01/18 05/01/18 18:59 06:59 18:59 Intake Total 600 / 600 904 / 904 Output Total 1600 / 1600 800 / 800 Balance -1000 / -1000 104 / 104 Weight 71.5 kg Intake: IV 600 / 600 300 / 300 Flexbumin 25% Inj 100 ML @ 60 100 / 100 100 / 100 mls/hr IV.SIG Q12H [facility] Rx#: [id number] Privigen Inj 30 GM In Bag/ 300 / 300 Syringe 1 EACH @ 37.5 mls/hr IV .SIG Q24H [facility] Rx#:[id number] Zosyn 4.5 GM Premix 4.5 gm In 200 / 200 200 / 200 100 ml @ 200 mls/hr IV.SIG Q6H [facility] Rx#:[id number] Tube Feeding 604 / 604 Output: Urine Amount (Catheter) 1600 / 1600 800 / 800 3-way Urethral 1600 / 1600 800 / 800 Other: Date of Last Bowel Movement 04/30/18 05/01/18 05/01/18 # Bowel Movements 3 Narrative: no improvement with ivig feels tired on it ble moves well and dtr 3+ bilat kj - Urinary Catheter Management Indwelling Urethral Catheter Cath placed during this visit: yes, but has since been removed by the nurse Reason for continuing: Continue criteria not met Insertion date: 04/10/18 Insertion time: 01:45 Removal date: 04/15/18 Removal time: 17:05 Condom Cath placed during this visit: no 3-way Urethral Cath placed during this visit: yes Reason for continuing: Gross Hematuria Insertion date: 04/25/18 Insertion time: 11:20 Objective Laboratory Results - last 24 hr 05/01/18 08:08 WBC 7.1 RBC 2.36 L Hgb 7.7 L Hct 21.9 L MCV 92.7 MCH 32.4 MCHC 34.9 RDW 16.5 Plt Count 225 MPV 8.6 Neut % (Auto) 81.4 H Lymph % (Auto) 9.4 [place] % (Auto) 8.2 H Eos % (Auto) 0.5 Baso % (Auto) 0.5 Neut # (Auto) 5.7 Lymph # (Auto) 0.7 L [place] # (Auto) 0.6 Eos # (Auto) 0.0 Baso # (Auto) 0.0 WBC Differential . Differential Comment Auto diff final Review/Management - Review/Management Plan: Encephalopathy Likely secondary to respiratory failure, hypoxia, metabolic etiology Respiratory failure - Lactic acidosis - Hyperammonemia - Leukocytosis - Neuro checks Q1h - MRI brain and head CT scan was unremarkable for an acute intracranial abnormality - Will reassess after patient he is off sedation. - CSF analysis is unremarkable, pending culture and HSV PCR results - EEG with evidence of encephalopathy, no epileptiform discharges or electrographic seizure activity - I met with family members and discussed the current neurologic status - There is no indication to start AEDs. -DVT prophylaxis - GI prophylaxis - Neurology will follow up. - Dr. Farias will follow up on Tuesday04/03/2018. - Please call for questions 04/03/18 met enceph mri LP eeg neg labs neg my hope is off sedatives he should do fine no hx dementia nor pd acc to daughters labs ordered few more 04/04/18 much better ok to dc sedatives neurowise recheck abg still some jerking can recheck eeg when off vent I spoke with Dr Ortiz of pulmonary. 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 According to the pt and family this developed a week after the cervical spine surgery. Myasthenia labs are negative , which does not absolutely r/o myasthenia gravis. He does not have ptosis or other bulbar sx of MG. Guillain [place] can affect respiration and phrenic nerves , but he has no limb weakness and DTRs are intact. Will discuss with Dr Farias possible empiric trial of ivig for possible atypical MG with normal labs. Will send serum JUANJO to be sure not IgA deficient before considering ivig 04/19/18 strength and dtr nl i breezy puckett and family will try mestinon although unlikely mg 04/20/18 inc mestinon to 60 mg and watch breathing 04/21/18 no change on mestinon sniff test today will check iga level in case we do ivig not confident will help though really no clinical sign of mg nor aidp 04/24/18 not any better on mestinon will dw dr menendez consider ivig but really i do not think mg and a variant odd of gbs unlikley with intact reflexes we have some case report of bilat phrenic nerve damage after ant c spine surgery 04/26/18 as above no major change iga level ok will give ivig trial 04/28/18 sp ivig first dose check renal fxt and ua today and bmp tuesday dc mestinon not helping - 05/01/18 ivig course over no change going to [facility] no improvement here
[2018-05-01] MEDS: Potassium Chloride Liq 20 MEQ/15 ML UDC PO SCH (10:00)
[2018-05-01] MEDS: Sertraline 100 MG Tablet PO SCH (10:00)
[2018-05-01] MEDS: Psyllium Husk SF 3.4 GM in 5.8 GM Packet NG/OG SCH (10:01)
[2018-05-01] MEDS: Chlorhexidine 0.12% Oral Kit 15 ML UDC OROPHARYNG SCH (10:02)
[2018-05-01] MEDS: Sodium Chloride 0.9% Irr Bag 3,000 ML, Aminocaproic Acid Inj 3,000 MG IRRIGATION SCH ×2 (10:05)
[2018-05-01] MEDS: Magnesium Oxide 400 MG Tablet PO SCH (10:05)
--- NOTE | 2018-05-01 10:56 | XR ---
EXAM DATE: 05/01/2018 10:53 AM EST AGE/SEX: 67 years / Male INDICATIONS: Evaluate trach placement. CLINICAL DATA: This is the patient's initial encounter. Patient reports that signs and symptoms have been present for 1 day and indicates a pain score of 0/10. MEDICAL/SURGICAL HISTORY: . Gastroesophageal reflux disease. Hypercholesterolemia. . Inguinal hernia repair COMPARISON: [facility], CHEST 1V SINGLE AP, 05/01/2018. . FINDINGS: Tracheostomy tube in good position. Minimal elevation of the left hemidiaphragm. The lungs are clear Feeding tube across the GE junction. CONCLUSION: Trach in good position. Electronically signed by: Jacky Damon MD Board Certified Radiologist 05/01/2018 10:54 AM EST
--- NOTE | 2018-05-01 11:07 | P.DS ---
Date of admission: 03/31/18 14:57 Primary care physician: eRx Longoria MD Anticipated date of discharge: 04/27/18 Brief History from admission: This 67-year-old came into the emergency room today with his and daughter. On 02/13/2018, he had a microdiscectomy, C5-C6, by Dr. Schwarz. He was discharged home the next day. A few days after, he had not been feeling well, short of breath, disoriented, generally weak, symptoms were getting worse, disorientation was worse. He was referred to emergency department by his primary care physician for an evaluation. In the ED he was found to be in severe hypercarbic respiratory acidosis and was intubated by ED attending. Patient update on day of discharge: stable. trach was exchanged due to torn cuff. otherwise no changes today. DS: Diagnosis - Discharge Diagnosis (1) BUDDY (acute kidney injury) Status: Acute (2) BUDDY (acute kidney injury) Status: Acute (3) Acute hyponatremia Status: Acute (4) Adult failure to thrive Status: Acute (5) Atelectasis Status: Acute (6) Gross hematuria Status: Acute (7) Hypernatremia Status: Acute (8) Ileus Status: Acute (9) Leukocytosis Status: Acute (10) Respiratory failure Status: Acute (11) Shortness of breath Status: Acute (12) Ventilator dependent Status: Acute (13) Weakness generalized Status: Acute (14) Neck pain, chronic Status: Chronic (15) Other cervical disc degeneration at C5-C6 level Status: Chronic (16) Protrusion of cervical intervertebral disc Status: Chronic DS: Summary Hospital Course: This 67-year-old came into the emergency room today with his and daughter. On 02/13/2018, he had a microdiscectomy, C5-C6, by Dr. Schwarz. He was discharged home the next day. A few days after, he had not been feeling well, short of breath, disoriented, generally weak, symptoms were getting worse, disorientation was worse. He was referred to emergency department by his primary care physician for an evaluation. In the ED he was found to be in severe hypercarbic respiratory acidosis and was intubated by ED attending. 04/01: CO2 retention corrected. Remains mildly alkalotic due to chronic CO2 elevation. PH normalized. Still requiring vasopressor therapy with norepinephrine. Broad-spectrum antibiotic coverage started. Lumbar puncture performed with opening pressure 20 and crystal-clear fluid, sent for cell counts , chemistries and culture. HSV included. One extra tube sent for future studies if necessary. Ammonia level 71 - repeat daily. 04/02: CSF appears benign. Repeat ammonia level normal. Gamma GT normal. Cardiac echo estimated of 45% ejection fraction requires a little additional investigation -patient has been chronically short of breath for several weeks now. Leukocytosis and left shift persists. Gram-positive cocci and white cells seen in sputum. This man clearly became acutely and critically ill - exact cause still eludes us. 04/03: Leukocytosis improved. Remains quite rigid when stimulated. Continues to move 4 limbs with purpose and follows commands with 4 limbs. Sputum demonstrates white blood cells and gram-negative rods. 04/04: Improved color and perfusion. Extubated yesterday afternoon but failed after about 45 minutes -developed somnolence then obtundation, appeared to be having difficulty taking a breath, concern for vocal cord dysfunction. On reintubation the cord edges were irregular but otherwise normal in appearance. I could not assess cord function as patient was not alert enough to cooperate with commands. We will definitely pursue possibilities of vocal cord dysfunction and or phrenic nerve paralysis once we get him extubated. Ideally, a sniff test under fluoroscopy would demonstrate any paradoxical diaphragm motion. 04/05: Afebrile. Neurologically appears intact. Daughter concerned about "appears distant" however on 40 mcg/kg/min of propofol and 250 mcg an hour fentanyl. No bowel movement since admission. Tube feeding only at 20 cc an hour. 04/06: Afebrile. Neurologically intact. Following commands.. Positive BM. Labile blood pressures yesterday. Replace potassium currently. 04/07: Patient writing notes today. Chest x-ray clear. Elevated left diaphragm , probably dysfunctional. Continued encephalopathy and generalized weakness chris very concerning. We will try Aminophyllin today to see if we can get some diaphragm and central nervous system stimulation. 04/08: Started on theophylline yesterday. Check level in a.m. Will attempt PSV trial today. Noted pulmonology requests possible T-bar with ABG when appropriate. Afebrile. 04/09: T-max 100. theophylline currently 3.7. Currently on CPAP trials. 02/18. 45%. Check ABG at 10 today. Desaturated yesterday currently back at 40%. 04/10: Resting in bed. Episode of nausea overnight. Negative workup. Evaluated positive BM 04/08. Patient more agitated overnight. Propofol discontinued due to hypotension. Currently on fentanyl drip. Theophylline. Creatinine currently 2.0 we will consult nephrology. Discontinue lisinopril. Receiving one half normal saline bolus currently. 04/11: T-max 101.1. Increasing O2 records.Increasing white blood cell count. For the cuff is overinflated to palpate the vocal cords. Leak by examination. Will change ET tube in place central line today. Empirically start antibiotics for aspiration. Not tolerating tube feeds and currently to low inner wall suction. Check KUB after ET tube exchange and central line placement. Restart metoclopramide. Positive BMs. 04/12: Yesterday, CT thorax revealed collapsed left lower lung. Status post bronchoscopy with reinflation of lung. Better saturations today. Continues with small and large bowel colonic distention. Right: 11 cm. GI is following. Might need decompression. Current orogastric tube to low intermittent wall suction. 04/13: Improved small and large bowel colonic distention. Down to 8 cm long family discussion. We will perform percutaneous tracheostomy and PEG tube as well. Request second neurological opinion. In better spirits today. /: no changes. awakens and follows commands. plan for trach today. 22: s/p trach yesterday. awake and alert. calm. looks more comfortable than yesterday. did not tolerate PRVC today, but tolerates PSV with high support (24/ 5/35%). 2/3: complaining of new RUQ pain. ?+Fry's sign. labs wnl today. no other complaints. denies nausea or vomiting. still has diarrhea, but this is slowing down after holding bowel regimen. ROS otherwise negative. 04/17: Gallbladder ultrasound appears benign. No new complaints. 04/18: Remains on the vent. Tolerated approximately 7 hours of CPAP yesterday with high PS. Still complaining of diarrhea. Most likely induced by tube feeds. Potassium remains low at 2.7. Potassium replacement in addition to protocol given followed by KCl 20 meq twice daily scheduled. Probably GI loss 04/19: Clinically improving tolerating CPAP better today. Pressure support reduced to 12. Near normal strength normal reflexes normal sensation. Continue aggressive potassium and phosphorus replacement. 04/20: Irrigation Lehman placed and bladder for removal of large blood clots. Will delay bedside sniff test until urinary problems clear up. Anticipate indirect laryngoscopy to nasal approach soon. 04/21: Bleeding from Lehman catheter markedly reduced, just pink fluid now. Awake and alert this morning. We will attempt sniff test this morning under fluoroscopy. Update: Sniff test performed under fluoroscopy by Dr. Ritesh Damon shows no diaphragmatic function on either left or right side. The patient participated well with the testing clearly used his intercostal and shoulder muscles vigorously. This pattern is clearly more consistent with a neurological illness and pretty much eliminates the likelihood of traumatic etiology. 04/22: Dr. Ritesh Damon finds and recommends: No diaphragmatic motion on either side. Respiratory pattern suspicious for high neurological deficit above C5. Repeat MRI of the brain, cervical and without and with contrast while ventilated to exclude motion artifact would be very helpful. 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 04/23: Continuing on spontaneous breathing trials with elevated pressure support. Using exaggerated accessory muscles the patient is able to breathe through relative comfort. 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 We plan to get repeat MRI brain and c-spine tomorrow - w/wo contrast per Dr. Ritesh Damon request. 04/24: Continued progress on spontaneous breathing trials but still requiring increased pressure support. We will continue to rest him at night. Continually low phosphorus is not helping muscle stamina, continue to replace aggressively. Repeat MRI of head and C-spine performed today, will review comparison to old study. 04/25: cysto today to evacuate clots. no other changes. awake and alert. denies new complaints. wbc slightly uptrended. 04/26: no more hematuria. CBI stopped this AM. discussed with urologist: plan to keep lehman at least 1 week or until more mobile. risk of urinary retention is high and repeat catheterization has high likelihood of causing additional bleeding. discussion with neurology: plan to start IVIG for possible GBS vs. auto-immune or transverse myelitis type neuromuscular weakness. 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 We will start looking into referral centers who have therapies targeted to diaphragmatic paralysis. ROS negative. 04/27: ambulating farther than yesterday. has been accepted by [facility] for further workup and consideration of diaphragmatic pacemaker, but awaiting bed. no changes. 04/28: walked 7 room-lengths today towards his goal of walking around the unit. still awaiting bed at [facility]. otherwise no complaints. 04/29: doing well. plan to walk 9 room-lengths today. discussed with [facility] and still no bed available. denies complaints. +BM today. 04/30: no changes. awaiting a bed at [facility]. 05/01: bed ready at [facility]. stable for transfer. - Time Spent with Patient Total time spent providing and/or coordinating discharge services: Greater than 30 minutes - Quality: VTE Deep Vein Thrombosis/Pulmonary Embolism Present on Admission: No Exam Vital signs: Vital Signs 04/30/18 11:26 04/30/18 11:40 04/30/18 11:42 Temperature Pulse Rate 102 H 87 Respiratory Rate 10 L Blood Pressure 148/76 H Pulse Oximetry 100 100 04/30/18 12:00 04/30/18 13:00 04/30/18 14:00 Temperature 37.2 C Pulse Rate 79 82 85 Respiratory Rate Blood Pressure 150/73 H 125/82 153/72 H Pulse Oximetry 100 99 100 04/30/18 15:00 04/30/18 16:00 04/30/18 17:00 Temperature 36.9 C Pulse Rate 79 97 H 78 Respiratory Rate Blood Pressure 125/67 175/83 H Pulse Oximetry 100 97 100 04/30/18 17:01 04/30/18 17:20 04/30/18 17:21 Temperature Pulse Rate 79 78 Respiratory Rate 10 L 10 L Blood Pressure 133/74 Pulse Oximetry 100 100 04/30/18 18:00 04/30/18 18:01 04/30/18 19:00 Temperature Pulse Rate 90 90 72 Respiratory Rate 12 Blood Pressure 153/77 H 118/68 Pulse Oximetry 98 100 100 04/30/18 20:00 04/30/18 21:00 04/30/18 21:06 Temperature 36.8 C Pulse Rate 78 76 Respiratory Rate 12 12 12 Blood Pressure 145/69 H 128/72 Pulse Oximetry 100 100 100 04/30/18 21:08 04/30/18 22:00 04/30/18 23:00 Temperature Pulse Rate 74 77 91 H Respiratory Rate 12 12 12 Blood Pressure 133/72 Pulse Oximetry 100 100 04/30/18 23:01 05/01/18 00:00 05/01/18 00:16 Temperature 36.8 C Pulse Rate 91 H 87 Respiratory Rate 12 12 Blood Pressure 160/73 H 167/78 H Pulse Oximetry 100 98 97 05/01/18 01:00 05/01/18 02:00 05/01/18 03:00 Temperature Pulse Rate 77 76 86 Respiratory Rate 12 12 12 Blood Pressure 146/75 H 140/70 160/76 H Pulse Oximetry 99 99 100 05/01/18 03:41 05/01/18 04:00 05/01/18 05:00 Temperature 36.8 C Pulse Rate 72 72 78 Respiratory Rate 12 12 12 Blood Pressure 127/69 185/74 H Pulse Oximetry 100 100 05/01/18 05:58 05/01/18 06:00 05/01/18 06:01 Temperature Pulse Rate 87 88 84 Respiratory Rate 12 Blood Pressure 152/72 H 146/71 H Pulse Oximetry 100 100 100 05/01/18 07:00 05/01/18 07:32 05/01/18 07:33 Temperature Pulse Rate 85 75 Respiratory Rate 12 12 Blood Pressure 147/73 H Pulse Oximetry 100 100 05/01/18 08:00 05/01/18 08:01 05/01/18 09:00 Temperature Pulse Rate 90 92 H 87 Respiratory Rate Blood Pressure 168/79 H Pulse Oximetry 96 96 96 05/01/18 09:01 Temperature Pulse Rate 90 Respiratory Rate Blood Pressure 150/77 H Pulse Oximetry 96 Intake & Output 04/30/18 05/01/18 05/01/18 18:59 06:59 18:59 Intake Total 600 / 600 904 / 904 Output Total 1600 / 1600 800 / 800 Balance -1000 / -1000 104 / 104 Weight 71.5 kg Intake: IV 600 / 600 300 / 300 Flexbumin 25% Inj 100 ML @ 60 100 / 100 100 / 100 mls/hr IV.SIG Q12H [facility] Rx#: [id number] Privigen Inj 30 GM In Bag/ 300 / 300 Syringe 1 EACH @ 37.5 mls/hr IV .SIG Q24H [facility] Rx#:[id number] Zosyn 4.5 GM Premix 4.5 gm In 200 / 200 200 / 200 100 ml @ 200 mls/hr IV.SIG Q6H [facility] Rx#:[id number] Tube Feeding 604 / 604 Output: Urine Amount (Catheter) 1600 / 1600 800 / 800 3-way Urethral 1600 / 1600 800 / 800 Other: Date of Last Bowel Movement 04/30/18 05/01/18 05/01/18 # Bowel Movements 3 Narrative: GENERAL: 67-year-old male. Awake alert SKIN: Warm and dry. HEAD: Atraumatic. Normocephalic. EYES: Pupils equal and round. No scleral icterus. No injection or drainage. ENT: No nasal bleeding or discharge. Mucous membranes pink and moist. Dobbhoff tube in place NECK: Trachea midline. No JVD. Trach site with some minor oozing. CARDIOVASCULAR: RRR sinus. RESPIRATORY: Lungs generally clear. Tolerating longer stretches of spontaneous breathing trials but requiring elevated pressure support. GASTROINTESTINAL: Abdomen slightly protuberant/non-tender, soft MUSCULOSKELETAL: Extremities without clubbing, cyanosis, trace to 1+ edema. No obvious deformities. NEUROLOGICAL: Follows commands and moves extremities to command. Limb strength 5 /5. No focal deficits. DTRs 3+ both knees. No clonus Results Procedures completed during hospitalization: sniff test Labs on day of discharge: Labs from last 24 hours 05/01/18 08:08 WBC 7.1 RBC 2.36 L Hgb 7.7 L Hct 21.9 L MCV 92.7 MCH 32.4 MCHC 34.9 RDW 16.5 Plt Count 225 MPV 8.6 Neut % (Auto) 81.4 H Lymph % (Auto) 9.4 [place] % (Auto) 8.2 H Eos % (Auto) 0.5 Baso % (Auto) 0.5 Neut # (Auto) 5.7 Lymph # (Auto) 0.7 L [place] # (Auto) 0.6 Eos # (Auto) 0.0 Baso # (Auto) 0.0 WBC Differential . Differential Comment Auto diff final Preliminary micro results at discharge 04/11/18 18:00 Fungal Culture - Preliminary Bronchial Washings - Left Lower Lobe No growth in 2 weeks 04/11/18 18:00 Mycobacterial Culture - Preliminary Bronchial Washings - Left Lower Lobe No growth in 2 weeks - Impressions ITS Impressions Head CT 03/31/18 12:16 CONCLUSION: 1. Negative CT Head non contrast. . Chest CTA 03/31/18 14:39 CONCLUSION: 1. Bibasilar atelectatic changes, left greater than right. No confluent infiltrate. 2. No pulmonary embolus. 3. Atherosclerotic calcification of the coronary arteries. Abdomen/Bladder Ultrasound 04/10/18 08:05 CONCLUSION: 1. Probable complex cyst coming off the right lower pole kidney appears smaller since 2017 CT examination of the abdomen. Abdomen X-Ray 04/15/18 05:07 CONCLUSION: Dobbhoff tube tip now seen in the stomach. Gallbladder Ultrasound 04/16/18 00:00 CONCLUSION: 1. Minimal prominence of the gallbladder wall. No pericholecystic fluid is seen no stones are evident. 2. Increased echogenicity of the liver suggesting fatty infiltration. Abdomen/Pelvis CT 04/19/18 10:15 CONCLUSION: 1. Tiny 1 mm calculus now noted in the posterior left side of the bladder which could represent a small bladder calculi or distal ureteral calculus. 2. The left kidney appears unremarkable and there is no hydronephrosis. The ureters appear within normal limits. 3. Single tiny nonobstructing right renal calculus without change. The previously noted complex cystic lesion in the lower pole is faintly visualized. 4. Nonspecific bowel gas pattern which may represent an ileus. Chest Fluoroscopy 04/21/18 00:00 CONCLUSION: No diaphragmatic motion on either side. Respiratory pattern suspicious for high neurological deficit above C5. Repeat MRI of the brain, cervical and without and with contrast while ventilated to exclude motion artifact would be very helpful. Cervical Spine MRI 04/24/18 00:00 CONCLUSION: 1. Subtle increased signal in the cord beginning at the C4 level extending distally. There is no abnormal contrast enhancement. 2. This is seen best on the sagittal IR image set. Head MRI 04/24/18 00:00 CONCLUSION: 1. Negative MRI of the brain without and with contrast Chest CT 04/26/18 00:00 CONCLUSION: Slight improvement in aeration. Chest X-Ray 05/01/18 10:38 CONCLUSION: Trach in good position. Discharge Plan - Discharge Disposition Patient Disposition: 70 Transfer To Other Facility - Discharge Condition Condition: Stable - Discharge Order Discharge Orders: Discharge Order (Routine); Ordered 04/27/18 Ordered By: John Martin - Discharge Details Anticipated Discharge Date: 04/27/18 Discharge Comment: to [facility] - Physicians Team Primary Care Provider: Rex Longoria Attending Provider: Gilmer Rodriguez Other Providers: Lev Torres MD ; Lisseth Martins MD ; Vivek Viera MD ; [facility] ; Miguel Coyle MD ; Johny Escobedo DO ; Shay Ontiveros MD ; Matilde Campbell MD ; Annamarie Srivastava MD ; Prem Isaac DO
== END 2018-05-01 10:48 | disposition short-term general hospital (02) | DRG 4 ==
LOC: NEPC 11:38 → NEDA 14:57 → N03 18:19
PROVIDERS: ADMIT Internal Medicine Critical Care Medicine; ATTEND Internal Medicine Critical Care Medicine
CPT/HCPCS: 31500; 31624; 36556; 36600; 70450; 70553; 71010; 71045; 71250; 71275; 72156; 74000; 74018; 74176; 76705; 76775; 76937; 80048; 80051; 80053; 80074; 80076; 80198; 80202; 80307; 81001; 82140; 82150; 82533; 82550; 82552; 82570; 82607; 82746; 82784; 82803; 82805; 82945; 82948; 82962; 82977; 83519; 83520; 83605; 83615; 83690; 83735; 83880; 83883; 83918; 83921; 84100; 84132; 84134; 84155; 84157; 84165; 84238; 84300; 84425; 84439; 84443; 84484; 85025; 85027; 85610; 85651; 85652; 85730; 86038; 86140; 86255; 86256; 86334; 86430; 86431; 86592; 86850; 86900; 86901; 87015; 87040; 87070; 87077; 87086; 87102; 87116; 87186; 87205; 87206; 87275; 87276; 87328; 87329; 87493; 87506; 87529; 87641; 87804; 88112; 88305; 89050; 89051; 92526; 92610; 93005; 93306; 94002; 94003; 94640; 94656; 94657; 94664; 94665; 95819; 97110; 97116; 97161; 97167; 97530; 99291; A7521; A9585; G0195; J0131; J0330; J0461; J0690; J0692; J0696; J1459; J1650; J1940; J2185; J2212; J2248; J2250; J2370; J2405; J2543; J2550; J2704; J2765; J3010; J3370; J3480; J7030; J7040; J7050; P9047; Q9967; S0171